=== PATIENT | male | born 1960 | race Caucasian/White ===

== ENCOUNTER 2020-12-22 08:36 | Inpatient (IN) | payer MEDICARE, SELFPAY ==
[2020-12-22] VITALS (9 sets, daily range): BP systolic 144–159; BP diastolic 53–76; PULSE 63–93; RESP 13–20; TEMP 36.6–37.5; O2SAT 93–99; BMI 29.0
--- NOTE | ~2020-12-22 | CT_ITS ---
EXAMINATION: CT ABDOMEN AND PELVIS WITH CONTRAST CLINICAL INFORMATION: Status post right lower quadrant abscess drainage. COMPARISON: CT abdomen and pelvis 12/23/2020. TECHNIQUE: Multidetector volumetric images were obtained from the superior aspect of the liver through the pubic symphysis following administration 85 mL of Omnipaque 350 intravenous contrast. Sagittal and coronal reformatted images were obtained on the technologist's workstation. Oral contrast: No This CT examination was performed using dose optimization techniques as appropriate, variously including the following: *Automated exposure control *Adjustment of mA and/or kV according to patient size (this includes techniques or standardized protocols for targeted exams where dose is matched to indication/reason for exam; i.e. extremities or head) *Use of iterative reconstruction technique DLP: 833 mGy-cm FINDINGS: LUNG BASES: There are bilateral small pleural effusions with underlying atelectasis. The heart size is normal. LIVER, GALLBLADDER, AND BILIARY TREE: The liver is normal in size, shape, and attenuation. No focal hepatic lesion or biliary ductal dilatation is present. The gallbladder is unremarkable with no evidence of radiopaque gallstones, gallbladder wall thickening, or obvious pericholecystic inflammatory changes. PANCREAS: Unremarkable. SPLEEN: Unremarkable. ADRENAL GLANDS: There is 2.2 cm left adrenal nodule, stable. The right adrenal gland is normal. KIDNEYS AND URETERS: The kidneys are normal in size, shape, and attenuation. No hydronephrosis, hydroureter, or calculi seen. There is bilateral perinephric stranding. There is a small nonenhancing cyst upper pole left left kidney and a moderate size cyst mid to lower pole right kidney. There are several additional small cortical cysts in the right kidney which are stable. BLADDER: Unremarkable. GASTROINTESTINAL TRACT: There is an anastomotic sutures along the right abdomen. There is a large collection seen previously in this region extending through the right lateral abdominal wall into the subcutaneous soft tissues. The largest collection seen previously has significantly improved status post insertion of percutaneous drainage catheter. There is a small collection seen superficially extending from the right lateral abdominal wall into the subcutaneous soft tissues which needs to be drained under ultrasound or CT. Also the previously placed drain can be flushed anteriorly at 5 mL loss saline to unplug the catheter. There is moderate haziness throughout the right lobar abdomen similar to previous study. The scattered colonic diverticulosis without diverticulitis. The small bowel loops are normal. The stomach is nondistended. Appendix is not seen. ABDOMINAL WALL: No significant hernia is appreciated. LYMPH NODES: Normal. VASCULAR: Unremarkable. PELVIC VISCERA: A small amount of free fluid in the pelvis which is stable. OSSEOUS STRUCTURES: There are degenerative disc changes L3-L4, L4-L5 disc levels with vacuum disc phenomena and mild ventral spondylosis. No lytic or sclerotic process seen. CT/CT abdomen pelvis w con IMPRESSION: Significant improvement in the right lateral abdominal wall collection status post placement of drainage catheter. There is a small right subcutaneous to this collection which needs to be drained under ultrasound or CT. Rest of the findings are unchanged.
--- NOTE | ~2020-12-22 | XR_ITS ---
EXAMINATION: XR CHEST CLINICAL INFORMATION: Cough. COMPARISON: 04/14/2019 chest radiograph. TECHNIQUE: Frontal view of the chest was obtained. FINDINGS: Support devices: There has been interval removal of the right PICC. No support devices in place. There is minimal elevation of the right hemidiaphragm. Mild linear markings are seen in the right midlung and right lung base. The left lung is clear. The heart and mediastinal structures are unremarkable. XR/XR chest 1V IMPRESSION: Mild linear atelectasis versus scarring in the right midlung and right lung base along with vascular crowding from right hemidiaphragm elevation. A definitive infiltrate is not seen.
--- NOTE | ~2020-12-22 | CT_ITS ---
PROCEDURE: CT GUIDED DRAINAGE, RETROPERITONEAL ABSCESS CLINICAL INFORMATION: Right midabdominal progressive collection, question abscess versus seroma. COMPARISON: CT abdomen 12/22/2020. TECHNIQUE: Following explaining CT-guided right abdominal wall and intraperitoneal drainage and catheter placement procedure, benefits and risks, a written consent was obtained. Patient was placed supine on the CT table and preliminary CT imaging was obtained. An optimal site was selected along the right midabdomen and marked. The marked site was cleaned and draped in the usual sterile manner. 1% lidocaine was administered at the puncture site. Through a small skin incision, a 5 [place] Yueh catheter was advanced into the right abdominal wall and retroperitoneal collection under CT fluoroscopy. After observing catheter tip within the collection, stylet was withdrawn and a 0.035 short J-wire was introduced and catheter removed. Over the catheter, a 10.5 [place] APD catheter with stiffener was inserted over the guidewire. After inserting 10 cm of the APD catheter, the guidewire and stiffener were removed. Repeat CT fluoroscopy imaging was performed and confirmed pigtail catheter tip within the collection. A pigtail was formed by pulling the thread and anchoring the pigtail to the skin with 3-0 nylon sutures. On the table, approximate 550 mL of pus was drained. Part of this pus was sent to lab for culture, sensitivity and Gram stain. A drainage bag to gravity was attached to this pigtail. Sterile dressing was applied postprocedure. Patient tolerated the procedure extremely well. IV 1 g of Versed and 50 mg of fentanyl was given during the exam. This CT examination was performed using dose optimization techniques as appropriate, variously including the following: *Automated exposure control *Adjustment of mA and/or kV according to patient size (this includes techniques or standardized protocols for targeted exams where dose is matched to indication/reason for exam; i.e. extremities or head) *Use of iterative reconstruction technique DLP: 383 mGy-cm. FINDINGS: On preliminary CT imaging, there is a small right pleural effusion. There is a large right anterior abdominal wall and retroperitoneal fluid collection, likely abscess or old seroma. Under CT fluoroscopy guidance, a 10.5 [place] APD catheter was left in the right anterolateral abdominal wall and retroperitoneal collection. Approximately 550 mL of pus was aspirated and part of this was sent to the lab. CT/CT drain retroperitoneal IMPRESSION: Successful CT fluoroscopy-guided placement of a 10.5 [place] APD catheter with approximately 550 mL of pus aspirated.
--- NOTE | ~2020-12-22 | CT_ITS ---
EXAMINATION: CT ANGIOGRAM OF THE CHEST WITH AND WITHOUT CONTRAST (CT PULMONARY ANGIOGRAM FOR PE) CLINICAL INFORMATION: Chest pain and dyspnea, elevated d-dimer. COMPARISON: CT scan of the abdomen and pelvis performed today. TECHNIQUE: Prior to contrast administration, noncontrast localization images were obtained. Subsequently, multidetector volumetric imaging was performed from the thoracic inlet to below the diaphragms following the administration of 80 mL Omnipaque 350 intravenous contrast. No contrast reaction reported Sagittal, coronal, and MIP oblique sagittal reformatted images were obtained on the CT workstation, uploaded to PACS, and reviewed. This CT examination was performed using dose optimization techniques as appropriate, variously including the following: *Automated exposure control *Adjustment of mA and/or kV according to patient size (this includes techniques or standardized protocols for targeted exams where dose is matched to indication/reason for exam; i.e. extremities or head) *Use of iterative reconstruction technique Total exam dose-length product 1442 mGy-cm FINDINGS: QUALITY OF STUDY/CONTRAST BOLUS: Satisfactory. PULMONARY ARTERIES: No central or segmental pulmonary emboli. THORACIC AORTA: No aneurysm or dissection. LUNGS/PLEURA/AIRWAYS: There is a small right pleural effusion with adjacent atelectasis and posterior pleural thickening. Mild upper lobe predominant centrilobular emphysema is seen. Focal cystic changes with adjacent linear markings are seen posterolaterally in the right upper lobe measuring 1.0 cm. An ovoid nodule seen within the major fissure measuring 1.2 cm (image 49, series 12). Mild linear atelectasis versus scarring is seen in the right middle lobe, lingula and lung bases. MEDIASTINUM: The visualized thyroid gland is unremarkable. Normal heart size. Mild to moderate coronary artery calcifications are seen. No pericardial effusion. Mildly enlarged mediastinal lymph nodes are seen. A leasing representative right paratracheal lymph node measures 0.7 cm in short axis (image 19, series 9. A subcarinal lymph node measures 1.3 cm (image 27, series 9). No evidence of septal bowing or right heart strain. CHEST WALL/AXILLA: No axillary or internal mammary lymphadenopathy. Mild bilateral gynecomastia. OSSEOUS STRUCTURES: Moderate to severe multilevel degenerative changes and increased thoracic kyphosis without suspicious abnormality. UPPER ABDOMEN: Splenomegaly measuring up to 19.1 cm without focal abnormality. Ovoid left adrenal nodule containing fat measuring 2.6 x 2.2 cm (image 63, series 9). Status post cholecystectomy. Please refer to the report from the CT scan of the abdomen and pelvis from today for more detailed findings. CT/CT angio chest PE protocol IMPRESSION: 1. No evidence for pulmonary embolism. 2. Small right pleural effusion with mild adjacent mural pleural thickening and atelectasis. A nodule associated with the right major fissure could represent enlarged lymph node or loculated pleural fluid. Mild upper lobe predominant centrilobular emphysema. Small focal cystic changes in the right upper lobe with adjacent scarring is nonspecific. Given these multiple findings, a repeat contrast-enhanced chest CT scan should be considered in 3 months. 3. Mildly enlarged mediastinal lymph nodes are nonspecific and may be reactive. 4. Mild bilateral gynecomastia. 5. Upper abdominal splenomegaly. Left adrenal nodule contains fat suggesting an adrenal adenoma/angiomyolipoma. Please refer to the report from the CT scan of the abdomen and pelvis from today for more detailed findings. VTE: negative
--- NOTE | ~2020-12-22 | CT_ITS ---
EXAMINATION: CT ABDOMEN AND PELVIS WITH CONTRAST CLINICAL INFORMATION: Follow-up abscess COMPARISON: Previous CT of the abdomen and pelvis most recent 12/26/2020 and abdominal ultrasound 12/27/2020 TECHNIQUE: Multidetector volumetric images were obtained from the superior aspect of the liver through the pubic symphysis following administration 85 mL of Omnipaque 350 intravenous contrast. Sagittal and coronal reformatted images were obtained on the technologist's workstation. Oral contrast: Yes This CT examination was performed using dose optimization techniques as appropriate, variously including the following: *Automated exposure control *Adjustment of mA and/or kV according to patient size (this includes techniques or standardized protocols for targeted exams where dose is matched to indication/reason for exam; i.e. extremities or head) *Use of iterative reconstruction technique DLP: 729 mGy-cm FINDINGS: LUNG BASES: There is bilateral lower lobe atelectasis/consolidation and pleural effusions that appear unchanged. LIVER, GALLBLADDER, AND BILIARY TREE: The liver is enlarged, right lobe measuring 23 cm in length. The liver is normal in shape, and attenuation. No focal hepatic lesion or biliary ductal dilatation is present. The gallbladder has been removed. PANCREAS: Unremarkable. SPLEEN: Upper normal in size measuring 12.8 cm in length. ADRENAL GLANDS: There is a heterogeneous partially fat-containing left adrenal nodule that is stable. The right adrenal gland is normal. KIDNEYS AND URETERS: There is a right renal cyst. There is bilateral perinephric stranding, right greater than left. This is unchanged. BLADDER: Unremarkable. GASTROINTESTINAL TRACT: There is stool throughout the colon. There is evidence of mild diverticulosis. No evidence of diverticulitis is seen. There are postsurgical changes to the distal small bowel and cecum. The appendix is not identified and has presumably been removed. The stomach is unremarkable. ABDOMINAL WALL: There is a single percutaneous pigtail catheter in the posterior lateral abdominal wall collection similar to most recent exam 12/26/2020. There is a minimal residual fluid collection seen in this region. The second drainage catheter placed in ultrasound is not seen. There is interval decrease in size in the more superior and anterior lateral fluid collection compared to 12/26/2020 exam. This measures 6.5 cm in longitudinal dimension compared to 8.2 cm 12/26/2020 and 2 x 4 cm in AP and transverse dimension compared to 3.7 x 7.4 cm on previous exam. The posterior fluid collections along the posterior peritoneal reflection extending to the right psoas muscle appears decreased in size. No new fluid collection is seen. There are postsurgical changes to the anterior abdominal wall. LYMPH NODES: Normal. VASCULAR: There is evidence of atherosclerotic disease. PELVIC VISCERA: The prostate gland does not appear enlarged. There is a small amount of ascites in the pelvis is unchanged. OSSEOUS STRUCTURES: There are degenerative changes of the spine and hip joints. CT/CT abdomen pelvis w con IMPRESSION: Interval decrease in size in right abdominal wall fluid collections. The second drain placed in ultrasound is not identified. The initial drain placed in CT appears unchanged in position.
--- NOTE | ~2020-12-22 | US_ITS ---
EXAMINATION: ULTRASOUND-GUIDED ABDOMINAL WALL ABSCESS DRAINAGE. CLINICAL INFORMATION: Right lower quadrant abdominal wall abscess. COMPARISON: CT abdomen 12/26/2020 TECHNIQUE: Following explaining ultrasound-guided right abdominal wall abscess drainage procedure, benefits and risk, a written consent was obtained. The urinary ultrasound was obtained into the right lower abdominal wall. An optimal site was selected and marked. The marked site was cleaned and draped in usual sterile manner. 1% lidocaine was injected at puncture site. Through a small skin incision a 5 [employer] catheter was advanced into the superficial abscess. After observing thick pus return the stylet was removed and catheter connected to vacuum bottle via connecting cannula. The needle was manifested in several locations around the same area to drain as much as possible. Postprocedure needle was withdrawn and complete hemostasis achieved. Repeat ultrasound imaging revealed significant decrease in the abscess collection. Sterile dressing applied at the puncture site. Patient tolerated procedure well. FINDINGS: There is a moderate-sized right lower abdominal wall abscess. This was subsequently drained under ultrasound guidance. Approximately 50 mL of thick reddish fluid was aspirated. US/US drain soft tissue w imaging IMPRESSION: Successful ultrasound-guided right lower abdominal wall abscess drainage performed without immediate complications.
--- NOTE | ~2020-12-22 | CT_ITS ---
EXAMINATION: CT ABDOMEN AND PELVIS WITH CONTRAST CLINICAL INFORMATION: Right lower quadrant pain. COMPARISON: Prior CT scan 2019. TECHNIQUE: Multidetector volumetric imaging was performed from the superior aspect of the liver through the pubic symphysis 100 mL of Omnipaque 300 injected Sagittal and coronal reformatted images were obtained on the technologist's workstation. This CT examination was performed using dose optimization techniques as appropriate, variously including the following: *Automated exposure control. *Adjustment of mA and/or kV according to patient size (this includes techniques or standardized protocols for targeted exams where dose is matched to indication/reason for exam; i.e. extremities or head). *Use of iterative reconstruction technique. DLP: 1442 mGy-cm. FINDINGS: LOWER THORAX: There is a small right pleural effusion, mild infiltrate/atelectasis right lung base. HEPATOBILIARY: No focal hepatic lesions. No biliary ductal dilatation. GALLBLADDER: Gallbladder has been removed, surgical clips within its bed. SPLEEN: Spleen is enlarged measuring up to 19 cm. PANCREAS: Pancreas is and atrophic. STOMACH AND GASTROINTESTINAL TRACT: Stomach is grossly unremarkable. There is sigmoid diverticulosis without CT evidence of acute diverticulitis. Redemonstration of anastomosis suture line right ascending colon with adjacent complex multiloculated fluid collection dissecting through the right anterior abdominal wall measuring about 18 x 5 cm axially and about 17 cm craniocaudally, expand from the right iliopsoas through the right lateral rectal muscle into the subcutaneous fat right lateral abdominal wall. This has increased, enlarged since prior study concerning for ongoing process leak and/or infection abscess. ADRENALS: Right adrenal is normal. Left adrenal nodule 2.2 x 1.8 cm unchanged, not well characterized on this single phase CT scan. KIDNEYS/URETERS: There is a simple right renal cyst 4 cm. Bilateral mild perinephric fat stranding unchanged. No hydronephrosis. No kidney stones or obstruction. URINARY BLADDER: Partially decompressed. PELVIC VISCERA: There is a free fluid in the dependent portion of the pelvis. PERITONEUM: Free fluid in the dependent portion of the pelvis. No free air. LYMPH NODES: No lymphadenopathy. VASCULAR:Abdominal aorta normal in size, no aneurysm found. BONES, ABDOMINAL WALL AND SOFT TISSUES: Age-appropriate changes of the spine and skeletal system, no destructive osteolytic or osteosclerotic bone lesion found. CT/CT abdomen pelvis w con IMPRESSION: 1. Enlarging or recurrent multiloculated complex fluid, which expand from right lower quadrant adjacent to right cecal anastomosis site, dissecting through the right abdominal wall and right rectal muscle into the subcutaneous fat, expands posteriorly and deeply into the paravertebral soft tissue and right iliopsoas. This is concerning for possible ongoing anastomosis leak and/or developing infection abscess versus seroma. This would be amenable for CT or ultrasound guided drainage. 2. Small right pleural effusion, infiltrate/atelectasis at right lung base. 3. Dependent free fluid in the pelvis. 4. Other findings unchanged including left adrenal nodule, splenomegaly, diverticulosis, bilateral perinephric fat stranding in right renal cyst, atrophic pancreas.
--- NOTE | 2020-12-22 08:42 | ED_ITS ---
HPI - Chest Pain General Chief Complaint: Dyspnea Stated Complaint: sob, cp Time Seen by Provider: 12/22/20 08:42 Source: patient and EMS Mode of arrival: EMS Limitations: no limitations History of Present Illness HPI narrative: 1 week of R sided abdominal (lower) pain that radiates to rib as well as cough and sputum production MD complaint: other (R sided abdominal pain) Pertinent past history: coronary artery disease Onset (ago): week(s) (1) Timing of current episode: constant Prior episodes: No Onset: during rest Pain location: other (R lower abdomen) Pain radiation: other (R ribs) Severity: moderate Quality: sharp Relieving factors: nothing Exacerbating factors: movement Associated symptoms: dyspnea and cough Treatment prior to arrival: aspirin and nitroglycerin (no relief) Related Data Home Medications Medication Instructions Recorded Confirmed amiodarone 200 mg PO DAILY 12/22/20 12/22/20 furosemide 40 mg PO DAILY 12/22/20 12/22/20 gemfibrozil 600 mg PO BID 12/22/20 12/22/20 metoprolol tartrate 25 mg PO BID 12/22/20 12/22/20 omeprazole 20 mg PO BID 12/22/20 12/22/20 trazodone 50 mg PO BEDTIME 12/22/20 12/22/20 Allergies Allergy/AdvReac Type Severity Reaction Status Date / Time vancomycin [VANCOMYCIN] Allergy Severe STOMACH Unverified 08/01/20 15:08 UPSET, ill Review of Systems Review of Systems: Constitutional : No Weight loss, No Fever, No Chills ENT/Mouth : No sore throat, No Rhinorrhea Eyes: No Swelling, No Redness Cardiovascular : No Chest Pain, No SOB, NoEdema Respiratory : pos Cough, pos Sputum, No Wheezing Gastrointestinal : no Nausea, no Vomiting, positive Diarrhea, positive abdominal Pain, No Hematochezia, No Melena Genitourinary : No Dysuria, No Urinary Frequency, No Hematuria, No Urgency Musculoskeletal : No joint pain, No Myalgias, No Joint Swelling Skin : No Skin Lesions, No rash Neuro : No Weakness, No Numbness, No Dizziness, No Headache Psych : No Anxiety/Panic, No Depression Heme/Lymph: No Bruising, No Lymphadenopathy Endocrine : No Polyuria, No Polydipsia All other systems reviewed and are negative. [facility] Past Medical History Attestation statement: The following information was validated with the patient. Medical History (Updated 12/22/20 @ 12:52 by Dianna Ramos DO) Acute appendicitis Afib CHF (congestive heart failure) CVA (cerebral vascular accident) Diabetes Heart disease History of left below knee amputation HTN (hypertension) Ischemic cardiomyopathy Surgical History (Updated 12/22/20 @ 08:58 by Dianna Ramos DO) H/O exploratory laparotomy H/O right hemicolectomy History of transmetatarsal amputation of right foot Hx of cholecystectomy Social History Social History Alcohol intake: never Smoked in Last 30 Days: No Use of substances other than those prescribed or required for medical reasons: No Advance Directives: No Advance Directives Information Provided: No Physical Exam Vital Signs: Vital Signs: Last Vital Signs Pulse 63 12/22/20 13:18 Resp 15 12/22/20 13:18 BP 150/64 H 12/22/20 13:18 Pulse Ox 95 12/22/20 13:18 Body Mass Index 29.0 Appearance: Alert. Oriented X3. No acute distress. Eyes: Pupils equal, round and reactive to light. ENT: Pharynx normal. Neck: Normal inspection. Neck supple. CVS: Normal heart rate and rhythm. Pulses normal. Respiratory: No respiratory distress. Breath sounds rales right base Abdomen: Soft and moderate ttp RLQ area under scar feels firm to touch, no rebound or guarding Skin: Skin warm and dry. Normal skin color. Normal skin turgor. Extremities: No lower extremity edema. No calf ttp Neuro: Oriented X 3. No motor deficit. No sensory deficit. Course Course Course Narrative: empiric zosyn already ordered CT scan concerning for increasing fluid collection call to surgery initial surgical period 2019 surgery aware, likely CT guided aspiration, will admit I added on flagyl given prior cultures MDM - Chest Pain MDM Narrative Medical decision making narrative: 60 yo male with hx of multiple issues post perforated appendix resuling in R hemicolectomy c/o R sided lower abdominal pain and cough with sputum production - at this time pain is mostly RLQ will need labs, CT scan of abdomen for infection/obstruction, troponin, EKG, ddimer, CXR for pneumonia, IV morphine for pain Lab Data Result diagrams: 12/22/20 09:03 12/22/20 09:03 Labs: Lab Results 12/22/20 12/22/20 12/22/20 Range/Units 09:03 09:03 09:03 WBC 16.8 H (4.8-10.8) X10*3/uL RBC 3.77 L (4.60-5.80) X10*6/uL Hgb 11.1 L (14.0-18.0) g/dl Hct 33.2 L (42-52) % MCV 88.1 (80-98) fL MCH 29.4 (27.0-33.0) pg MCHC 33.4 (31.0-36.0) g/dl RDW 12.7 (11.0-16.0) % Plt Count 314 (160-400) X10*3/uL MPV 9.3 L (9.4-12.4) fL Immature Gran % (Auto) 0.6 H (0.0-0.4) % Neut % (Auto) 87.7 H (45-73) % Lymph % (Auto) 5.2 L (20-40) % [place] % (Auto) 5.5 (2-11) % Eos % (Auto) 0.9 (0-4) % Baso % (Auto) 0.1 (0-2) % Lymph # (Auto) 0.9 L (1.2-4.9) X10*3/uL [place] # (Auto) 0.9 (0.1-1.2) X10*3/uL Eos # (Auto) 0.2 (0.0-0.4) X10*3/uL Baso # (Auto) 0.0 (0.0-0.2) X10*3/uL Abs Immat Gran (auto) 0.10 H (0.00-0.03) X10*3/uL Absolute Neuts (auto) 14.7 H (2.0-8.3) X10*3/uL Absolute Nucleated RBC 0.000 (0.0-0.012) X10*3/uL Nucleated RBC % (auto) 0.0 (0.0-0.2) /100WBC PT 15.0 H (10.8-13.0) SEC INR 1.3 H (0.9-1.1) APTT 34.4 (24.1-38.0) SEC D-Dimer 647 NG/ML Sodium 140 (135-145) mmol/L Potassium 3.9 (3.3-5.1) mmol/L Chloride 105 (96-108) mmol/L Carbon Dioxide 24 (22-29) mmol/L Anion Gap 15 (12-20) BUN 16 (9-16) mg/dL Creatinine 0.74 (0.5-1.4) mg/dL Estim Creat Clear Calc 130.2 Estimated GFR > 60 Random Glucose 206 H (60-115) mg/dL Lactic Acid (0.5-2.0) mmol/L Calcium 8.4 (8.4-10.2) mg/dL Magnesium 1.5 L (1.6-2.6) mg/dL Total Bilirubin 0.4 (0.0-1.0) mg/dL Direct Bilirubin 0.2 (0.0-0.5) mg/dL AST 13 (5-37) U/L ALT 14 (0-40) U/L Alkaline Phosphatase 128 H (39-117) U/L Troponin I High Sens (<3.5-35.0) ng/L B-Natriuretic Peptide (<100) pg/mL Total Protein 5.8 L (6.5-8.0) g/dL Albumin 3.0 L (3.5-5.0) g/dL Lipase 5 L (8-78) U/L COVID-19 (CAROLINE) (Negative) COVID-19 Clin Com 12/22/20 12/22/20 12/22/20 Range/Units 09:03 09:03 09:03 WBC (4.8-10.8) X10*3/uL RBC (4.60-5.80) X10*6/uL Hgb (14.0-18.0) g/dl Hct (42-52) % MCV (80-98) fL MCH (27.0-33.0) pg MCHC (31.0-36.0) g/dl RDW (11.0-16.0) % Plt Count (160-400) X10*3/uL MPV (9.4-12.4) fL Immature Gran % (Auto) (0.0-0.4) % Neut % (Auto) (45-73) % Lymph % (Auto) (20-40) % [place] % (Auto) (2-11) % Eos % (Auto) (0-4) % Baso % (Auto) (0-2) % Lymph # (Auto) (1.2-4.9) X10*3/uL [place] # (Auto) (0.1-1.2) X10*3/uL Eos # (Auto) (0.0-0.4) X10*3/uL Baso # (Auto) (0.0-0.2) X10*3/uL Abs Immat Gran (auto) (0.00-0.03) X10*3/uL Absolute Neuts (auto) (2.0-8.3) X10*3/uL Absolute Nucleated RBC (0.0-0.012) X10*3/uL Nucleated RBC % (auto) (0.0-0.2) /100WBC PT (10.8-13.0) SEC INR (0.9-1.1) APTT (24.1-38.0) SEC D-Dimer NG/ML Sodium (135-145) mmol/L Potassium (3.3-5.1) mmol/L Chloride (96-108) mmol/L Carbon Dioxide (22-29) mmol/L Anion Gap (12-20) BUN (9-16) mg/dL Creatinine (0.5-1.4) mg/dL Estim Creat Clear Calc Estimated GFR Random Glucose (60-115) mg/dL Lactic Acid 1.5 (0.5-2.0) mmol/L Calcium (8.4-10.2) mg/dL Magnesium (1.6-2.6) mg/dL Total Bilirubin (0.0-1.0) mg/dL Direct Bilirubin (0.0-0.5) mg/dL AST (5-37) U/L ALT (0-40) U/L Alkaline Phosphatase (39-117) U/L Troponin I High Sens (<3.5-35.0) ng/L B-Natriuretic Peptide 1309 H (<100) pg/mL Total Protein (6.5-8.0) g/dL Albumin (3.5-5.0) g/dL Lipase (8-78) U/L COVID-19 (CAROLINE) Negative (Negative) COVID-19 Clin Com See Note 12/22/20 Range/Units 09:03 WBC (4.8-10.8) X10*3/uL RBC (4.60-5.80) X10*6/uL Hgb (14.0-18.0) g/dl Hct (42-52) % MCV (80-98) fL MCH (27.0-33.0) pg MCHC (31.0-36.0) g/dl RDW (11.0-16.0) % Plt Count (160-400) X10*3/uL MPV (9.4-12.4) fL Immature Gran % (Auto) (0.0-0.4) % Neut % (Auto) (45-73) % Lymph % (Auto) (20-40) % [place] % (Auto) (2-11) % Eos % (Auto) (0-4) % Baso % (Auto) (0-2) % Lymph # (Auto) (1.2-4.9) X10*3/uL [place] # (Auto) (0.1-1.2) X10*3/uL Eos # (Auto) (0.0-0.4) X10*3/uL Baso # (Auto) (0.0-0.2) X10*3/uL Abs Immat Gran (auto) (0.00-0.03) X10*3/uL Absolute Neuts (auto) (2.0-8.3) X10*3/uL Absolute Nucleated RBC (0.0-0.012) X10*3/uL Nucleated RBC % (auto) (0.0-0.2) /100WBC PT (10.8-13.0) SEC INR (0.9-1.1) APTT (24.1-38.0) SEC D-Dimer NG/ML Sodium (135-145) mmol/L Potassium (3.3-5.1) mmol/L Chloride (96-108) mmol/L Carbon Dioxide (22-29) mmol/L Anion Gap (12-20) BUN (9-16) mg/dL Creatinine (0.5-1.4) mg/dL Estim Creat Clear Calc Estimated GFR Random Glucose (60-115) mg/dL Lactic Acid (0.5-2.0) mmol/L Calcium (8.4-10.2) mg/dL Magnesium (1.6-2.6) mg/dL Total Bilirubin (0.0-1.0) mg/dL Direct Bilirubin (0.0-0.5) mg/dL AST (5-37) U/L ALT (0-40) U/L Alkaline Phosphatase (39-117) U/L Troponin I High Sens 11.4 (<3.5-35.0) ng/L B-Natriuretic Peptide (<100) pg/mL Total Protein (6.5-8.0) g/dL Albumin (3.5-5.0) g/dL Lipase (8-78) U/L COVID-19 (CAROLINE) (Negative) COVID-19 Clin Com ECG Data ECG #1: Attestation: I personally reviewed and interpreted this ECG as follows: ECG interpretation date: 12/22/20 ECG interpretation time: 09:04 Interpretation: Rate: 95 Rhythm: NSR [place]: left Normal P waves. Normal MICHELLE. NSIVCD, poor R wave progression ST T wave : nonspecific, no LELO qTC: normal prior studies: no change from 2019 The study has been interpreted contemporaneously by me. . Discharge Plan Discharge Clinical Impression: Abdominal fluid collection Abdominal pain Qualifiers: Abdominal location: right lower quadrant Qualified Code(s): R10.31 - Right lower quadrant pain Patient Disposition: Admitted As Inpatient
--- NOTE | 2020-12-22 08:49 | ECG_ITS ---
Test Reason : CP,SOB Blood Pressure : / mmHG Vent. Rate : 095 BPM Atrial Rate : 095 BPM P-R Int : 112 ms QRS Dur : 132 ms QT Int : 388 ms P-R-T Axes : 026 -56 075 degrees QTc Int : 487 ms Normal sinus rhythm Possible Left atrial enlargement Left axis deviation Non-specific intra-ventricular conduction block Inferior infarct (cited on or before 19-MAR-2019) Possible Anterolateral infarct (cited on or before 19-MAR-2019) Abnormal ECG When compared with ECG of 30-MAY-2019 10:01, No significant changes seen Referred By: Dianna Ramos Electronically Signed By:PEDRO BOSWELL
[2020-12-22] MEDS: Morphine Sulfate 4 MG/ML CARTRIDGE IVPUSH ×4 (09:10→22:10)
[2020-12-22] MEDS: ondansetron HCL 4 MG/2 ML VIAL IVPUSH (09:10)
[2020-12-22 09:23] LABS: MANUAL DIFF FLAG NO
[2020-12-22 09:25] LABS: Basophils Percent Auto 0.1 % (0-2); Eosinophils Absolute Auto 0.2 X10*3/uL (0.0-0.4); Eosinophils Percent Auto 0.9 % (0-4); Hematocrit 33.2 % (42-52); Hemoglobin 11.1 g/dl (14.0-18.0); Imm Gran Pct Auto 0.6 % (0.0-0.4); Lymphocytes Absolute Auto 0.9 X10*3/uL (1.2-4.9); Lymphocytes Percent Auto 5.2 % (20-40); Mean Corpuscular HGB Conc 33.4 g/dl (31.0-36.0); Mean Corpuscular Hemoglobin 29.4 pg (27.0-33.0); Mean Corpuscular Volume 88.1 fL (80-98); Mean Platelet Volume 9.3 fL (9.4-12.4); Monocytes Absolute Auto 0.9 X10*3/uL (0.1-1.2); Monocytes Percent Auto 5.5 % (2-11); Neutrophils Absolute Auto 14.7 X10*3/uL (2.0-8.3); Neutrophils Percent Auto 87.7 % (45-73); Platelet Count 314 X10*3/uL (160-400); Red Blood Count 3.77 X10*6/uL (4.60-5.80); Red Cell Distribution Width 12.7 % (11.0-16.0); White Blood Count 16.8 X10*3/uL (4.8-10.8)
[2020-12-22 09:33] LABS: INTERNATIONAL NORM RATIO 1.3 (0.9-1.1)
[2020-12-22 09:35] LABS: Partial Thromboplastin Time 34.4 SEC (24.1-38.0)
[2020-12-22 09:38] LABS: COVID-19 Test Negative (Negative)
[2020-12-22 09:41] LABS: D Dimer 647 NG/ML
[2020-12-22 09:44] LABS: Lactic Acid 1.5 mmol/L (0.5-2.0)
[2020-12-22 09:50] LABS: Alanine Aminotransferase 14 U/L (0-40); Alkaline Phosphatase 128 U/L (39-117); Anion Gap 15 (12-20); Aspartate Amino Transferase 13 U/L (5-37); Bilirubin Direct 0.2 mg/dL (0.0-0.5); Bilirubin Total 0.4 mg/dL (0.0-1.0); Blood Urea Nitrogen 16 mg/dL (9-16); Calcium 8.4 mg/dL (8.4-10.2); Carbon Dioxide 24 mmol/L (22-29); Chloride 105 mmol/L (96-108); Creatinine Clr Calc Pharmacy 130.2; Estimated Glomerular Filt Rate > 60; Glucose Random 206 mg/dL (60-115); Lipase 5 U/L (8-78); Magnesium 1.5 mg/dL (1.6-2.6); Potassium 3.9 mmol/L (3.3-5.1); Sodium 140 mmol/L (135-145); Total Protein 5.8 g/dL (6.5-8.0)
[2020-12-22 09:54] LABS: Troponin-I High Sensitivity 11.4 ng/L (<3.5-35.0)
[2020-12-22 09:55] LABS: B Type Natriuretic Peptide 1309 pg/mL (<100)
[2020-12-22] MEDS: Piperacillin Sodium/Tazobactam 3.375 GM in 0.9 % Sodium Chloride 50 ML IV ×3 (10:23→22:05)
[2020-12-22] MEDS: iohexoL 350 MG/ML 100 ML INFUS..BTL IV (11:29)
[2020-12-22] MEDS: Magnesium Sulfate/H2O 2 GM/50 ML PIGGYBACK IV (13:16)
--- NOTE | 2020-12-22 14:09 | P.CONGS_ITS ---
History of Present Illness Consult details Consult date: 12/22/20 <FARHEEN Funk - Last Filed: 12/22/20 16:08> Reason for consult: abdominal pain <FARHEEN Funk Last Filed: 12/22/20 16:08> Requesting physician: Dianna Ramos <FARHEEN Funk - Last Filed: 12/22/20 16:08> Narrative: 60 yo male with extensive PMHx presents for ABD pain and SOB. He states that the ABD pain started about a month ago but acutely worsened in the last day. This was accompanied by SOB and overall feeling unwell. He states that the pain is located on his Right side. He reports nausea and diarrhea as well. The pain is worse with movement and pressure on the area and improved with lying on his back. He has a hx of multiple issues post perforated appendix resulting in R hemicolectomy hx of multiple issues post perforated appendix resulting in R hemicolectomy. ED course: Found to have leukocytosis. CT of the ABD shopwed a RIght-side fluid collection suggesting possible ongoing anastamosis leak or abscess. He was started on ABX and pain medication. Surgery was consulted for further eval uation. He was evaluated at bed-side. He is currently resting comfortably in bed, no acute distress. He states his pain is improved with pain medicaiton but still present. <FARHEEN Funk - Last Filed: 12/22/20 16:08> Review of Systems Cardiovascular: Cardiovascular: Reports dyspnea <FARHEEN Funk Last Filed: 12/22/20 16:08> Respiratory: Respiratory: Reports dyspnea <FARHEEN Funk Last Filed: 12/22/20 16:08> Gastrointestinal: Gastrointestinal: Reports abdominal pain (Right side), Reports diarrhea and Reports nausea <FARHEEN Funk Last Filed: 12/22/20 16:08> Integumentary/Breasts: Skin/Breast: Reports skin pain <FARHEEN Funk Last Filed: 12/22/20 16:08> [facility] Past Medical History Medical History: Medical History (Updated 12/22/20 @ 16:17 by Prema Larry MD) Acute appendicitis Afib CHF (congestive heart failure) CVA (cerebral vascular accident) Diabetes Heart disease History of left below knee amputation HTN (hypertension) Ischemic cardiomyopathy <FARHEEN Funk - Last Filed: 12/22/20 16:08> Surgical History Surgical History: Surgical History (Updated 12/22/20 @ 08:58 by Dianna Ramos DO) H/O exploratory laparotomy H/O right hemicolectomy History of transmetatarsal amputation of right foot Hx of cholecystectomy <FARHEEN Funk - Last Filed: 12/22/20 16:08> Social History Social History: Social History Alcohol intake: never Smoked in Last 30 Days: No Use of substances other than those prescribed or required for medical reasons: No Advance Directives: No Advance Directives Information Provided: No <FARHEEN Funk - Last Filed: 12/22/20 16:08> Meds Allergies/Adverse reactions: Allergies Allergy/AdvReac Type Severity Reaction Status Date / Time vancomycin [VANCOMYCIN] Allergy Severe STOMACH Unverified 08/01/20 15:08 UPSET, ill <FARHEEN Funk - Last Filed: 12/22/20 16:08> Home medications: Home Medications Medication Instructions Recorded Confirmed Type amiodarone 200 mg PO DAILY 12/22/20 12/22/20 History furosemide 40 mg PO DAILY 12/22/20 12/22/20 History gemfibrozil 600 mg PO BID 12/22/20 12/22/20 History metoprolol tartrate 25 mg PO BID 12/22/20 12/22/20 History omeprazole 20 mg PO BID 12/22/20 12/22/20 History trazodone 50 mg PO BEDTIME 12/22/20 12/22/20 History <FARHEEN Funk - Last Filed: 12/22/20 16:08> Physical Exam Vital Signs: Vital Signs: Last Vital Signs Pulse 63 12/22/20 13:18 Resp 15 12/22/20 13:18 BP 150/64 H 12/22/20 13:18 Pulse Ox 95 12/22/20 13:18 Body Mass Index 29.0 <FARHEEN Funk - Last Filed: 12/22/20 16:08> Const: General: no acute distress <FARHEEN Funk - Last Filed: 12/22/20 16:08> Nutritional Appearance: obese <FARHEEN Funk - Last Filed: 12/22/20 16:08> GI: Inspection: Yes incision and Yes Abdominal panniculus present <FARHEEN Funk Last Filed: 12/22/20 16:08> Palpation (GI): Soft to palpation and Tenderness to palpation present (GI) in the RLQ and in the RUQ <FARHEEN Funk Last Filed: 12/22/20 16:08> Skin: General skin exam: erythema (Right Flank) <FARHEEN Funk Last Filed: 12/22/20 16:08> Results Labs Result diagrams: : 12/22/20 09:03 12/22/20 09:03 <FARHEEN Funk Last Filed: 12/22/20 16:08> Labs: Abnormal lab results 12/22/20 12/22/20 12/22/20 Range/Units 09:03 09:03 09:03 WBC 16.8 H (4.8-10.8) X10*3/uL RBC 3.77 L (4.60-5.80) X10*6/uL Hgb 11.1 L (14.0-18.0) g/dl Hct 33.2 L (42-52) % MPV 9.3 L (9.4-12.4) fL Immature Gran % (Auto) 0.6 H (0.0-0.4) % Neut % (Auto) 87.7 H (45-73) % Lymph % (Auto) 5.2 L (20-40) % Lymph # (Auto) 0.9 L (1.2-4.9) X10*3/uL Abs Immat Gran (auto) 0.10 H (0.00-0.03) X10*3/uL Absolute Neuts (auto) 14.7 H (2.0-8.3) X10*3/uL PT 15.0 H (10.8-13.0) SEC INR 1.3 H (0.9-1.1) Random Glucose 206 H (60-115) mg/dL Magnesium 1.5 L (1.6-2.6) mg/dL Alkaline Phosphatase 128 H (39-117) U/L B-Natriuretic Peptide (<100) pg/mL Total Protein 5.8 L (6.5-8.0) g/dL Albumin 3.0 L (3.5-5.0) g/dL Lipase 5 L (8-78) U/L 12/22/20 Range/Units 09:03 WBC (4.8-10.8) X10*3/uL RBC (4.60-5.80) X10*6/uL Hgb (14.0-18.0) g/dl Hct (42-52) % MPV (9.4-12.4) fL Immature Gran % (Auto) (0.0-0.4) % Neut % (Auto) (45-73) % Lymph % (Auto) (20-40) % Lymph # (Auto) (1.2-4.9) X10*3/uL Abs Immat Gran (auto) (0.00-0.03) X10*3/uL Absolute Neuts (auto) (2.0-8.3) X10*3/uL PT (10.8-13.0) SEC INR (0.9-1.1) Random Glucose (60-115) mg/dL Magnesium (1.6-2.6) mg/dL Alkaline Phosphatase (39-117) U/L B-Natriuretic Peptide 1309 H (<100) pg/mL Total Protein (6.5-8.0) g/dL Albumin (3.5-5.0) g/dL Lipase (8-78) U/L Short CBC 12/22/20 Range/Units 09:03 WBC 16.8 H (4.8-10.8) X10*3/uL Hgb 11.1 L (14.0-18.0) g/dl Hct 33.2 L (42-52) % Plt Count 314 (160-400) X10*3/uL BMP 12/22/20 09:03 Sodium 140 Potassium 3.9 Chloride 105 Carbon Dioxide 24 BUN 16 Creatinine 0.74 Calcium 8.4 Liver Function 12/22/20 Range/Units 09:03 Total Bilirubin 0.4 (0.0-1.0) mg/dL Direct Bilirubin 0.2 (0.0-0.5) mg/dL AST 13 (5-37) U/L ALT 14 (0-40) U/L Alkaline Phosphatase 128 H (39-117) U/L Albumin 3.0 L (3.5-5.0) g/dL All other labs normal. <FARHEEN Funk - Last Filed: 12/22/20 16:08> Imaging Abdomen CT scan report/results: report reviewed and image reviewed <FARHEEN Funk - Last Filed: 12/22/20 16:08> Assessment and Plan (1) Abdominal fluid collection: Problem details: Right side ABD pain present for the last month but acutely worsening over the last day. Accompanied by dsypnea and overall feeling unwell. Likely an infected seroma or abscess <FARHEEN Funk - Last Filed: 12/22/20 16:08> Status: Acute <FARHEEN Funk - Last Filed: 12/22/20 16:08> Anastamos leak vs abscess/seroma- Elevated WBC of 16K but no evidence of sepsis. Admit to med/surg Cont IV ABX (Zosyn Flagyl) Pain mgmt Consult medicine Consult IR for possible percutaneous drainage <FARHEEN Funk - Last Filed: 12/22/20 16:08> (2) Abscess, retroperitoneal: Status: Acute <FARHEEN Funk Last Filed: 12/22/20 16:08> . General Surgery Attending - Román Larry M.D. Patient was evaluated and examined at the bedside with Mr. Andres Hollis PA-C. Patient has a history of abdominal surgery in the past with a perforated appendix, abscess and Right hemicolectomy. He now has a Right paracolonic and retroperitoneal fluid collection, with pain and leukocytosis 16.8. CT [place] density is more c/w seroma than abscess and there is no gas. He will require I.R. drainage nevertheless to drain fluid, obtain C&S, and drainage tube. <Prema Larry MD - Last Filed: 12/22/20 16:29>
[2020-12-22] MEDS: metroNIDAZOLE/NS 500 MG/100 ML PIGGYBACK 100 MG IV ×2 (15:06→22:45)
[2020-12-22] MEDS: 0.9 % Sodium Chloride Flush 3 ML SYRINGE IVFLUSH (15:10)
[2020-12-22] MEDS: 0.9 % Sodium Chloride 1,000 ML 100 ML IVCONT ×2 (15:10→23:57)
[2020-12-22] MEDS: Heparin Sodium,Porcine 5,000 UNIT/ML VIAL 5000 UNIT SUBCUT (16:22)
--- NOTE | 2020-12-22 16:33 | P.CONIM_ITS ---
History of Present Illness Data of Consult Service Date: 12/22/20 Requesting physician: Prema Larry Primary Care Provider: Connor Mcdaniel MD [facility] Reason for consult: medical management 60-year-old male admitted to surgery service for Anastamos leak vs abscess/seroma-, Medicine was consulted for medical management, patient reported abdominal pain for last few days but was worsening for 4 -5 days, patient denies any fever chills, patient also reported chest pain sharp in nature atypical that started yesterday and resolved on its own, patient denies any chest pain now, patient reported some shortness of breath at baseline, in the ER CT abdomen shows anastomotic leak versus abscess and seroma, patient was started on IV antibiotic and plan for IR guided drainage tomorrow Review of Systems Cardiovascular: Cardiovascular: Reports dyspnea Respiratory: Respiratory: Reports dyspnea Gastrointestinal: Gastrointestinal: Reports abdominal pain (Right side), Reports diarrhea and Reports nausea Integumentary/Breasts: Skin/Breast: Reports skin pain PMFSH Medical History (Updated 12/22/20 @ 16:43 by Edis Roth MD) Acute appendicitis Afib CHF (congestive heart failure) CVA (cerebral vascular accident) Diabetes Heart disease History of left below knee amputation HTN (hypertension) Ischemic cardiomyopathy Surgical History H/O exploratory laparotomy H/O right hemicolectomy History of transmetatarsal amputation of right foot Hx of cholecystectomy Social History Alcohol intake: never Smoked in Last 30 Days: No Use of substances other than those prescribed or required for medical reasons: No Advance Directives: No Advance Directives Information Provided: No Meds Allergies Allergy/AdvReac Type Severity Reaction Status Date / Time vancomycin [VANCOMYCIN] Allergy Severe STOMACH Unverified 08/01/20 15:08 UPSET, ill Home Medications Medication Instructions Recorded Confirmed Type amiodarone 200 mg PO DAILY 12/22/20 12/22/20 History furosemide 40 mg PO DAILY 12/22/20 12/22/20 History gemfibrozil 600 mg PO BID 12/22/20 12/22/20 History metoprolol tartrate 25 mg PO BID 12/22/20 12/22/20 History omeprazole 20 mg PO BID 12/22/20 12/22/20 History trazodone 50 mg PO BEDTIME 12/22/20 12/22/20 History Physical Exam Vital Signs and Narrative: Vital Signs: Last Vital Signs Pulse 63 12/22/20 15:11 Resp 13 12/22/20 15:11 BP 153/63 H 12/22/20 15:11 Pulse Ox 95 12/22/20 15:11 Body Mass Index 29.0 Const: General: no acute distress Nutritional Appearance: obese GI: Inspection: Yes incision and Yes Abdominal panniculus present Palpation (GI): Soft to palpation and Tenderness to palpation present (GI) in the RLQ and in the RUQ Skin: General skin exam: erythema (Right Flank) Results Labs CBC and Chem 7: 12/22/20 09:03 12/22/20 09:03 Labs: Laboratory Results - last 24 hr 12/22/20 12/22/20 12/22/20 09:03 09:03 09:03 MCV 88.1 MCH 29.4 MCHC 33.4 RDW 12.7 Plt Count 314 MPV 9.3 L Immature Gran % (Auto) 0.6 H Neut % (Auto) 87.7 H Lymph % (Auto) 5.2 L [place] % (Auto) 5.5 Eos % (Auto) 0.9 Baso % (Auto) 0.1 Lymph # (Auto) 0.9 L [place] # (Auto) 0.9 Eos # (Auto) 0.2 Baso # (Auto) 0.0 Abs Immat Gran (auto) 0.10 H Absolute Neuts (auto) 14.7 H Absolute Nucleated RBC 0.000 Nucleated RBC % (auto) 0.0 PT 15.0 H INR 1.3 H APTT 34.4 D-Dimer 647 Anion Gap 15 Estim Creat Clear Calc 130.2 Estimated GFR > 60 Random Glucose 206 H Lactic Acid Calcium 8.4 Magnesium 1.5 L Total Bilirubin 0.4 Direct Bilirubin 0.2 AST 13 ALT 14 Alkaline Phosphatase 128 H Troponin I High Sens B-Natriuretic Peptide Total Protein 5.8 L Albumin 3.0 L Lipase 5 L COVID-19 (CAROLINE) COVID-19 Clin Com 12/22/20 12/22/20 12/22/20 09:03 09:03 09:03 MCV MCH MCHC RDW Plt Count MPV Immature Gran % (Auto) Neut % (Auto) Lymph % (Auto) [place] % (Auto) Eos % (Auto) Baso % (Auto) Lymph # (Auto) [place] # (Auto) Eos # (Auto) Baso # (Auto) Abs Immat Gran (auto) Absolute Neuts (auto) Absolute Nucleated RBC Nucleated RBC % (auto) PT INR APTT D-Dimer Anion Gap Estim Creat Clear Calc Estimated GFR Random Glucose Lactic Acid 1.5 Calcium Magnesium Total Bilirubin Direct Bilirubin AST ALT Alkaline Phosphatase Troponin I High Sens B-Natriuretic Peptide 1309 H Total Protein Albumin Lipase COVID-19 (CAROLINE) Negative COVID-19 Clin Com See Note 12/22/20 09:03 MCV MCH MCHC RDW Plt Count MPV Immature Gran % (Auto) Neut % (Auto) Lymph % (Auto) [place] % (Auto) Eos % (Auto) Baso % (Auto) Lymph # (Auto) [place] # (Auto) Eos # (Auto) Baso # (Auto) Abs Immat Gran (auto) Absolute Neuts (auto) Absolute Nucleated RBC Nucleated RBC % (auto) PT INR APTT D-Dimer Anion Gap Estim Creat Clear Calc Estimated GFR Random Glucose Lactic Acid Calcium Magnesium Total Bilirubin Direct Bilirubin AST ALT Alkaline Phosphatase Troponin I High Sens 11.4 B-Natriuretic Peptide Total Protein Albumin Lipase COVID-19 (CAROLINE) COVID-19 Clin Com Imaging Radiologist's Impressions: Impressions Abdomen/Pelvis CT 12/22/20 08:49 IMPRESSION: 1. Enlarging or recurrent multiloculated complex fluid, which expand from right lower quadrant adjacent to right cecal anastomosis site, dissecting through the right abdominal wall and right rectal muscle into the subcutaneous fat, expands posteriorly and deeply into the paravertebral soft tissue and right iliopsoas. This is concerning for possible ongoing anastomosis leak and/or developing infection abscess versus seroma. This would be amenable for CT or ultrasound guided drainage. 2. Small right pleural effusion, infiltrate/atelectasis at right lung base. 3. Dependent free fluid in the pelvis. 4. Other findings unchanged including left adrenal nodule, splenomegaly, diverticulosis, bilateral perinephric fat stranding in right renal cyst, atrophic pancreas. Chest X-Ray 12/22/20 08:50 IMPRESSION: Mild linear atelectasis versus scarring in the right midlung and right lung base along with vascular crowding from right hemidiaphragm elevation. A definitive infiltrate is not seen. Chest CTA 12/22/20 09:49 IMPRESSION: 1. No evidence for pulmonary embolism. 2. Small right pleural effusion with mild adjacent mural pleural thickening and atelectasis. A nodule associated with the right major fissure could represent enlarged lymph node or loculated pleural fluid. Mild upper lobe predominant centrilobular emphysema. Small focal cystic changes in the right upper lobe with adjacent scarring is nonspecific. Given these multiple findings, a repeat contrast-enhanced chest CT scan should be considered in 3 months. 3. Mildly enlarged mediastinal lymph nodes are nonspecific and may be reactive. 4. Mild bilateral gynecomastia. 5. Upper abdominal splenomegaly. Left adrenal nodule contains fat suggesting an adrenal adenoma/angiomyolipoma. Please refer to the report from the CT scan of the abdomen and pelvis from today for more detailed findings. VTE: negative Assessment and Plan (1) Abscess, retroperitoneal: Status: Acute . (2) Afib: Status: Inactive (3) CHF (congestive heart failure): Status: Inactive (4) Diabetes: Status: Acute (5) HTN (hypertension): Status: Inactive (6) Ischemic cardiomyopathy: Status: Inactive 60-year-old male admitted to surgery service for anastomotic leak versus abscess, Medicine was consulted for medical management Abdominal abscess at anastomotic site Continue IV antibiotic Plan for IR guided drainage per surgery Management per surgery Diabetes mellitus Currently not on any anti diabetic medication Blood glucose around 200 on admission Will check A1c Continue sliding scale insulin Episode of chest pain yesterday atypical No chest pain today Troponin negative EKG shows no change ACS less likely AFib Continue amiodarone and metoprolol Not on anticoagulation Congestive heart failure appears euvolemic Continue Lasix DVT prophylaxis heparin subQ
[2020-12-22 17:18] LABS: Glucose, Whole Blood 117 mg/dL (60-115)
--- NOTE | 2020-12-22 20:26 | PC.NURSE ---
CALLED TO GIVE REPORT FOR ADMISSION PT IS RESTING QUIETLY WATCHING TV. HE REPORTS SOME PAIN CONTROL WITH EARLIER DOSE OF MORPHINE BUT REPORTS PAIN IS INCREASING
--- NOTE | 2020-12-22 20:47 | PC.NURSE ---
REPORT GIVEN FOR ADMISSION
[2020-12-22 22:00] LABS: Glucose, Whole Blood 126 mg/dL (60-115)
[2020-12-22] MEDS: Metoprolol Tartrate 25 MG TABLET PO (22:04)
[2020-12-22] MEDS: gemfibroziL 600 MG TABLET PO (22:05)
[2020-12-22] MEDS: Flu Vacc QS2020-21(6mos up)/PF 0.5 ML SYRINGE IM (22:45)
[2020-12-23] VITALS (11 sets, daily range): BP systolic 125–151; BP diastolic 61–68; PULSE 67–87; RESP 14–20; TEMP 36.1–36.7; O2SAT 92–98
[2020-12-23 03:25] LABS: Estimated Average Glucose 232 mg/dL; Hemoglobin A1c % 9.7 %
[2020-12-23] MEDS: Morphine Sulfate 4 MG/ML CARTRIDGE IVPUSH ×3 (03:31→14:42)
[2020-12-23] MEDS: ondansetron HCL 4 MG/2 ML VIAL IVPUSH (03:48)
[2020-12-23] MEDS: Heparin Sodium,Porcine 5,000 UNIT/ML VIAL 5000 UNIT SUBCUT ×2 (03:53→16:54)
[2020-12-23] MEDS: Piperacillin Sodium/Tazobactam 3.375 GM in 0.9 % Sodium Chloride 50 ML IV ×4 (03:58→22:54)
[2020-12-23] MEDS: metroNIDAZOLE/NS 500 MG/100 ML PIGGYBACK 100 MG IV ×2 (06:01→14:42)
[2020-12-23] MEDS: Omeprazole 20 MG CAPSULE.DR PO (06:01)
[2020-12-23 06:24] LABS: MANUAL DIFF FLAG NO
[2020-12-23 06:33] LABS: Basophils Percent Auto 0.2 % (0-2); Eosinophils Absolute Auto 0.1 X10*3/uL (0.0-0.4); Eosinophils Percent Auto 0.7 % (0-4); Hemoglobin 10.1 g/dl (14.0-18.0); Imm Gran Abs Auto 0.15 X10*3/uL (0.00-0.03); Imm Gran Pct Auto 0.8 % (0.0-0.4); Lymphocytes Absolute Auto 0.7 X10*3/uL (1.2-4.9); Lymphocytes Percent Auto 3.8 % (20-40); Mean Corpuscular HGB Conc 32.6 g/dl (31.0-36.0); Mean Corpuscular Hemoglobin 29.3 pg (27.0-33.0); Mean Corpuscular Volume 89.9 fL (80-98); Mean Platelet Volume 9.4 fL (9.4-12.4); Monocytes Absolute Auto 1.1 X10*3/uL (0.1-1.2); Monocytes Percent Auto 5.6 % (2-11); Neutrophils Absolute Auto 17.2 X10*3/uL (2.0-8.3); Neutrophils Percent Auto 88.9 % (45-73); Platelet Count 298 X10*3/uL (160-400); Red Blood Count 3.45 X10*6/uL (4.60-5.80); White Blood Count 19.4 X10*3/uL (4.8-10.8)
[2020-12-23 06:48] LABS: Anion Gap 14 (12-20); Blood Urea Nitrogen 14 mg/dL (9-16); Calcium 8.1 mg/dL (8.4-10.2); Carbon Dioxide 24 mmol/L (22-29); Chloride 106 mmol/L (96-108); Creatinine Clr Calc Pharmacy 130.2; Estimated Glomerular Filt Rate > 60; Glucose Random 143 mg/dL (60-115); Sodium 140 mmol/L (135-145)
[2020-12-23 07:40] LABS: Glucose, Whole Blood 145 mg/dL (60-115)
--- NOTE | 2020-12-23 07:42 | P.PNGS_ITS ---
Subjective Subjective Date of Service: 12/23/20 Interval history: Patient reports pain in the right flank and right lower abdomen; somewhat improved this morning with pain meds Physical Exam Vital Signs: Vital Signs: Last Vital Signs Temp 97.1 F 12/23/20 03:40 Pulse 87 12/23/20 03:40 Resp 18 12/23/20 03:40 BP 133/61 12/23/20 03:40 Pulse Ox 92 12/23/20 03:40 Body Mass Index 29.0 Const: General: cooperative, healthy appearing, comfortable and no acute distress Resp: Effort & Inspection: normal respiratory effort, no cough and not labored GI: Other: soft, obese, mild tenderness in the right lower abdomen with slight edema but no erythema. No rebound Skin: Other: warm and dry, no erythema Wounds: no wounds Extrem: Other: left BKA, right TMA Progress Note: A&P Assessment and plan (1) Abdominal fluid collection: Problem details: Right side ABD pain present for the last month but acutely worsening over the last day. Accompanied by dsypnea and overall feeling unwell. Likely an infected seroma or abscess Status: Acute Assessment and Plan: 60 year old male patient with multiple medical problems perforated appendicitis with large abscess, s/p right colectomy, now with a recurrent fluid collection in the right flank. Patient scheduled for IR drainage today of the large collection with cultures. WBC elevated today, on Zosyn and Flagyl. Await IR results. Fall Risk Details Current Medications: Current Medications Generic Name Dose Route Start Last Admin Trade Name Freq PRN Reason Stop Dose Admin Amiodarone HCl 200 mg 12/23/20 09:00 Amiodarone Hcl 200 Mg Tablet PO DAILY KANCHAN Furosemide 40 mg 12/23/20 09:00 Furosemide 40 Mg Tablet PO DAILY KANCHAN Gemfibrozil 600 mg 12/22/20 21:00 12/22/20 22:05 Gemfibrozil 600 Mg Tablet PO 600 mg BID [facility] Administration Heparin Sodium (Porcine) 5,000 unit 12/22/20 16:00 12/23/20 03:53 Heparin Sodium,Porcine 5,000 Unit/Ml Vial SUBCUT 5,000 unit Q12H [facility] Administration Sodium Chloride 1,000 mls @ 100 mls/hr 12/22/20 14:45 12/22/20 23:57 Ns IVCONT 100 mls/hr .Q10H [facility] Administration Metronidazole 500 mg in 100 mls @ 100 mls/hr 12/22/20 15:00 12/23/20 07:18 Flagyl IV Infused Q8H [facility] Infusion Piperacillin Sod/Tazobactam 50 mls @ 100 mls/hr 12/22/20 16:00 12/23/20 04:33 Sod 3.375 gm/ Sodium Chloride IV Infused Q6H [facility] Infusion Insulin Human Lispro 0 unit 12/22/20 21:00 12/23/20 07:34 Insulin Lispro 100 Unit/Ml 3 Ml Vial SUBCUT Not Given QIDACHS [facility] Protocol Metoprolol Tartrate 25 mg 12/22/20 21:00 12/22/20 22:04 Metoprolol Tartrate 25 Mg Tablet PO 25 mg BID [facility] Administration Morphine Sulfate 4 mg 12/22/20 14:38 12/23/20 03:31 Morphine Sulfate 4 Mg/Ml Cartridge IVPUSH 4 mg Q4H PRN Administration Pain, Severe (Pain Scale 7-10) Omeprazole 20 mg 12/22/20 16:30 12/23/20 06:01 Omeprazole 20 Mg Capsule. PO 20 mg BID@0630,1630 [facility] Administration Ondansetron HCl 4 mg 12/22/20 14:38 12/23/20 03:48 Ondansetron Hcl 4 Mg/2 Ml Vial IVPUSH 4 mg Q8H PRN Administration Nausea and Vomiting Sodium Chloride 3 ml 12/22/20 16:00 12/23/20 07:34 0.9 % Sodium Chloride Flush 3 Ml Syringe IVFLUSH Not Given QSHIFT [facility] Time Spent With Patient Time: Total time spent is greater than 50% in coordination of care (as documented) at patient's floor/unit and/or counseling patient: Time with patient: 15 - 24 minutes
[2020-12-23] MEDS: Metoprolol Tartrate 25 MG TABLET PO ×2 (07:59→20:30)
[2020-12-23] MEDS: Furosemide 40 MG TABLET PO (07:59)
[2020-12-23] MEDS: gemfibroziL 600 MG TABLET PO ×2 (07:59→20:30)
[2020-12-23] MEDS: Amiodarone HCL 200 MG TABLET PO (08:00)
--- NOTE | 2020-12-23 09:08 | MHC.CM.PN ---
PATIENT LIVES WITH HIS MOTHER, WHO HE IS THE [employer]. HCP DOCUMENT FOUND IN PREVIOUS ADMISSION OF [employer]TS AND COPY PLACED IN CHART. PATIENT HAS LOWER LIMB PROSTHESIS AND USES NO VNA SERVICES. CASE MANAGEMENT FOLLOWING FOR DISCHARGE PLANS. PATIENT WOULD PREFER TO RETURN HOME WITH NO SERVICES NEEDED. HE STATES THAT HE CAN ARRANGE FAMILY TO TRANSPORT UPON DISCHARGE. IMM 12/23 IN CHART.
[2020-12-23] MEDS: Lidocaine HCl 1 % MPF 5 ML VIAL 10 ML SUBCUT (11:14)
[2020-12-23 11:27] LABS: Glucose, Whole Blood 141 mg/dL (60-115)
[2020-12-23] MEDS: 0.9 % Sodium Chloride 1,000 ML 100 ML IVCONT ×2 (11:32→22:39)
--- NOTE | 2020-12-23 16:16 | P.PNIM_ITS ---
Subjective Subjective Date of Service: 12/23/20 Interval History: patient seen and examined at bedside patient was reporting abdominal pain Cardiovascular Cardiovascular: Reports dyspnea Respiratory Respiratory: Reports dyspnea Gastrointestinal Gastrointestinal: Reports abdominal pain (Right side), Reports diarrhea and Reports nausea Integumentary/Breasts Skin/Breast: Reports skin pain Physical Exam Vital Signs: Vital Signs: Last Vital Signs Temp 97.0 F 12/23/20 15:16 Pulse 75 12/23/20 15:16 Resp 14 12/23/20 15:16 BP 151/68 H 12/23/20 15:16 Pulse Ox 97 12/23/20 15:16 Body Mass Index 29.0 Const: General: no acute distress Nutritional Appearance: obese GI: Inspection: Yes incision and Yes Abdominal panniculus present Palpation (GI): Soft to palpation and Tenderness to palpation present (GI) in the RLQ and in the RUQ Skin: General skin exam: erythema (Right Flank) Objective Data Current Medications Generic Name Dose Route Start Last Admin Trade Name Freq PRN Reason Stop Dose Admin Amiodarone HCl 200 mg 12/23/20 09:00 12/23/20 08:00 Amiodarone Hcl 200 Mg Tablet PO 200 mg DAILY [facility] Administration Furosemide 40 mg 12/23/20 09:00 12/23/20 07:59 Furosemide 40 Mg Tablet PO 40 mg DAILY [facility] Administration Gemfibrozil 600 mg 12/22/20 21:00 12/23/20 07:59 Gemfibrozil 600 Mg Tablet PO 600 mg BID [facility] Administration Heparin Sodium (Porcine) 5,000 unit 12/22/20 16:00 12/23/20 03:53 Heparin Sodium,Porcine 5,000 Unit/Ml Vial SUBCUT 5,000 unit Q12H [facility] Administration Sodium Chloride 1,000 mls @ 100 mls/hr 12/22/20 14:45 12/23/20 11:32 Ns IVCONT 100 mls/hr .Q10H [facility] Administration Metronidazole 500 mg in 100 mls @ 100 mls/hr 12/22/20 15:00 12/23/20 15:44 Flagyl IV Infused Q8H [facility] Infusion Piperacillin Sod/Tazobactam 50 mls @ 100 mls/hr 12/22/20 16:00 12/23/20 12:03 Sod 3.375 gm/ Sodium Chloride IV Infused Q6H [facility] Infusion Insulin Human Lispro 0 unit 12/22/20 21:00 12/23/20 11:28 Insulin Lispro 100 Unit/Ml 3 Ml Vial SUBCUT Not Given QIDACHS [facility] Protocol Metoprolol Tartrate 25 mg 12/22/20 21:00 12/23/20 07:59 Metoprolol Tartrate 25 Mg Tablet PO 25 mg BID [facility] Administration Morphine Sulfate 4 mg 12/22/20 14:38 12/23/20 14:42 Morphine Sulfate 4 Mg/Ml Cartridge IVPUSH 4 mg Q4H PRN Administration Pain, Severe (Pain Scale 7-10) Omeprazole 20 mg 12/22/20 16:30 12/23/20 06:01 Omeprazole 20 Mg Capsule. PO 20 mg BID@0673,9190 [facility] Administration Ondansetron HCl 4 mg 12/22/20 14:38 12/23/20 03:48 Ondansetron Hcl 4 Mg/2 Ml Vial IVPUSH 4 mg Q8H PRN Administration Nausea and Vomiting Sodium Chloride 3 ml 12/22/20 16:00 12/23/20 15:35 0.9 % Sodium Chloride Flush 3 Ml Syringe IVFLUSH Not Given QSHIFT [facility] Labs CBC & Chem 7: 12/23/20 05:59 12/23/20 05:59 Microbiology Microbiology Results: Microbiology 12/23/20 10:45 Abscess Intra-abdominal Gram Stain - Final 12/22/20 09:30 Blood - Venous Blood Culture - Preliminary No growth after 24 hours. 12/22/20 09:09 Blood - Venous Blood Culture - Preliminary No growth after 24 hours. Assessment and Plan (1) Abscess, retroperitoneal: Status: Acute Assessment and Plan: . (2) Afib: Status: Inactive (3) CHF (congestive heart failure): Status: Inactive (4) Diabetes: Status: Acute (5) HTN (hypertension): Status: Inactive (6) Ischemic cardiomyopathy: Status: Inactive Assessment and Plan: 60-year-old male admitted to surgery service for anastomotic leak versus abscess, Medicine was consulted for medical management Abdominal abscess at anastomotic site Continue IV antibiotic Plan for IR guided drainage today Management per surgery Diabetes mellitus Currently not on any anti diabetic medication HbA1c 9.1 Continue sliding scale insulin will need anti diabetic medication on discharge Episode of chest pain atypical resolved Troponin negative EKG shows no change ACS less likely AFib Continue amiodarone and metoprolol Not on anticoagulation Congestive heart failure appears euvolemic Continue Lasix DVT prophylaxis heparin subQ
[2020-12-23 16:28] LABS: Glucose, Whole Blood 150 mg/dL (60-115)
[2020-12-23 20:23] LABS: Glucose, Whole Blood 151 mg/dL (60-115)
[2020-12-23] MEDS: Insulin Lispro 100 UNIT/ML 3 ML VIAL SUBCUT (20:30)
[2020-12-24] VITALS (9 sets, daily range): BP systolic 134–159; BP diastolic 60–74; PULSE 66–93; RESP 14–20; TEMP 36.2–36.7; O2SAT 94–96
[2020-12-24] MEDS: metroNIDAZOLE/NS 500 MG/100 ML PIGGYBACK 100 MG IV ×4 (00:35→23:00)
[2020-12-24] MEDS: Morphine Sulfate 4 MG/ML CARTRIDGE IVPUSH (02:54)
[2020-12-24] MEDS: Piperacillin Sodium/Tazobactam 3.375 GM in 0.9 % Sodium Chloride 50 ML IV ×4 (04:30→22:07)
[2020-12-24] MEDS: Heparin Sodium,Porcine 5,000 UNIT/ML VIAL 5000 UNIT SUBCUT ×2 (04:30→17:13)
[2020-12-24 06:20] LABS: MANUAL DIFF FLAG NO
[2020-12-24 06:25] LABS: Basophils Percent Auto 0.2 % (0-2); Eosinophils Absolute Auto 0.2 X10*3/uL (0.0-0.4); Eosinophils Percent Auto 1.4 % (0-4); Hematocrit 29.9 % (42-52); Hemoglobin 9.7 g/dl (14.0-18.0); Imm Gran Abs Auto 0.18 X10*3/uL (0.00-0.03); Imm Gran Pct Auto 1.2 % (0.0-0.4); Lymphocytes Absolute Auto 1.1 X10*3/uL (1.2-4.9); Lymphocytes Percent Auto 6.9 % (20-40); Mean Corpuscular HGB Conc 32.4 g/dl (31.0-36.0); Mean Corpuscular Hemoglobin 28.9 pg (27.0-33.0); Mean Platelet Volume 9.3 fL (9.4-12.4); Monocytes Absolute Auto 0.8 X10*3/uL (0.1-1.2); Neutrophils Absolute Auto 13.3 X10*3/uL (2.0-8.3); Neutrophils Percent Auto 85.3 % (45-73); Platelet Count 350 X10*3/uL (160-400); Red Blood Count 3.36 X10*6/uL (4.60-5.80); Red Cell Distribution Width 12.9 % (11.0-16.0); White Blood Count 15.5 X10*3/uL (4.8-10.8)
[2020-12-24] MEDS: Omeprazole 20 MG CAPSULE.DR PO ×2 (06:25→17:13)
[2020-12-24] MEDS: 0.9 % Sodium Chloride 1,000 ML 100 ML IVCONT ×2 (06:36→14:47)
[2020-12-24 06:52] LABS: Anion Gap 13 (12-20); Blood Urea Nitrogen 16 mg/dL (9-16); Calcium 7.8 mg/dL (8.4-10.2); Carbon Dioxide 25 mmol/L (22-29); Chloride 108 mmol/L (96-108); Creatinine Clr Calc Pharmacy 139.7; Estimated Glomerular Filt Rate > 60; Glucose Random 99 mg/dL (60-115); Potassium 3.8 mmol/L (3.3-5.1); Sodium 142 mmol/L (135-145)
[2020-12-24 07:50] LABS: Glucose, Whole Blood 104 mg/dL (60-115)
--- NOTE | 2020-12-24 07:54 | P.PNGS_ITS ---
Subjective Subjective Date of Service: 12/24/20 Interval history: Hospital day 2, reports some nausea and vomiting yesterday evening perhaps due to pain medication. Feels improved after Phenergan dose. Has some abdominal pain her drain but generally feels much improved from yesterday. Not feeling very hungry at this time and is happy with the clear liquid diet for now. He would like to get up in out of bed today to walk the hallways. Physical Exam Vital Signs: Vital Signs: Last Vital Signs Temp 98.0 F 12/24/20 03:37 Pulse 69 12/24/20 03:37 Resp 20 12/24/20 03:37 BP 136/60 12/24/20 03:37 Pulse Ox 96 12/24/20 03:37 Body Mass Index 29.0 Const: General: cooperative, healthy appearing, comfortable and no acute distress Neck: Neck: Yes normal visual inspection Resp: Other: Breathing comfortably on room air, no shortness of breath GI: Other: Soft and nondistended, IR drain intact, draining bloody/purulent fluid. No peritoneal signs. Extrem: Other: No edema Progress Note: A&P Assessment and plan (1) Abdominal fluid collection: Problem details: Right side ABD pain present for the last month but acutely worsening over the last day. Accompanied by dsypnea and overall feeling unwell. Likely an infected seroma or abscess Status: Acute Assessment and Plan: Patient found to have an abscess in the retroperitoneum/intraperitoneal, status post IR drainage yesterday. Abdominal exam is much improved with decreased tenderness and swelling. Approximately 550 mL of murky fluid was drained yesterday. A small amount of bloody fluid is draining now. Will continue the drainage to gravity bag. Await cultures on the fluid. Gram stain appears to be mixed bacteria. Continue on Zosyn and Flagyl. Will switch pain medications to Dilaudid. Continue on the clear liquid diet. Encourage patient to get out of bed and ambulate today. Fall Risk Details Current Medications: Current Medications Generic Name Dose Route Start Last Admin Trade Name Freq PRN Reason Stop Dose Admin Amiodarone HCl 200 mg 12/23/20 09:00 12/23/20 08:00 Amiodarone Hcl 200 Mg Tablet PO 200 mg DAILY [facility]CHAN Administration Furosemide 40 mg 12/23/20 09:00 12/23/20 07:59 Furosemide 40 Mg Tablet PO 40 mg DAILY [facility] Administration Gemfibrozil 600 mg 12/22/20 21:00 12/23/20 20:30 Gemfibrozil 600 Mg Tablet PO 600 mg BID [facility] Administration Heparin Sodium (Porcine) 5,000 unit 12/22/20 16:00 12/24/20 04:30 Heparin Sodium,Porcine 5,000 Unit/Ml Vial SUBCUT 5,000 unit Q12H [facility] Administration Sodium Chloride 1,000 mls @ 100 mls/hr 12/22/20 14:45 12/24/20 06:36 Ns IVCONT 100 mls/hr .Q10H [facility] Administration Metronidazole 500 mg in 100 mls @ 100 mls/hr 12/22/20 15:00 12/24/20 02:31 Flagyl IV Infused Q8H [facility] Infusion Piperacillin Sod/Tazobactam 50 mls @ 100 mls/hr 12/22/20 16:00 12/24/20 05:18 Sod 3.375 gm/ Sodium Chloride IV Infused Q6H [facility] Infusion Promethazine HCl 12.5 mg/ 50.5 mls @ 202 mls/hr 12/23/20 17:20 12/23/20 17:57 Sodium Chloride IV Infused Q6H PRN Infusion Nausea Insulin Human Lispro 0 unit 12/22/20 21:00 12/23/20 20:30 Insulin Lispro 100 Unit/Ml 3 Ml Vial SUBCUT 2 unit QIDACHS [facility] Administration Protocol Metoprolol Tartrate 25 mg 12/22/20 21:00 12/23/20 20:30 Metoprolol Tartrate 25 Mg Tablet PO 25 mg BID [facility] Administration Morphine Sulfate 4 mg 12/22/20 14:38 12/24/20 02:54 Morphine Sulfate 4 Mg/Ml Cartridge IVPUSH 4 mg Q4H PRN Administration Pain, Severe (Pain Scale 7-10) Omeprazole 20 mg 12/22/20 16:30 12/24/20 06:25 Omeprazole 20 Mg Capsule.Dr PO 20 mg BID@0630,1630 [facility] Administration Ondansetron HCl 4 mg 12/22/20 14:38 12/23/20 03:48 Ondansetron Hcl 4 Mg/2 Ml Vial IVPUSH 4 mg Q8H PRN Administration Nausea and Vomiting Sodium Chloride 3 ml 12/22/20 16:00 12/24/20 00:40 0.9 % Sodium Chloride Flush 3 Ml Syringe IVFLUSH Not Given QSHIFT [facility] Time Spent With Patient Time: Total time spent is greater than 50% in coordination of care (as docu mented) at patient's floor/unit and/or counseling patient: Time with patient: 15 - 24 minutes
[2020-12-24] MEDS: Furosemide 40 MG TABLET PO (08:18)
[2020-12-24] MEDS: gemfibroziL 600 MG TABLET PO ×2 (08:18→21:19)
[2020-12-24] MEDS: Amiodarone HCL 200 MG TABLET PO (08:18)
[2020-12-24] MEDS: Metoprolol Tartrate 25 MG TABLET PO ×2 (08:18→21:18)
[2020-12-24] MEDS: HYDROmorphone HCl 0.5 MG/0.5 ML SYRINGE IVPUSH ×2 (08:19→14:45)
[2020-12-24 11:28] LABS: Glucose, Whole Blood 138 mg/dL (60-115)
--- NOTE | 2020-12-24 16:15 | P.PNIM_ITS ---
Subjective Subjective Date of Service: 12/24/20 Interval History: Patient seen and examined at bedside patient was reporting abdominal pain improving Cardiovascular Cardiovascular: Reports dyspnea Respiratory Respiratory: Reports dyspnea Gastrointestinal Gastrointestinal: Reports abdominal pain (Right side), Reports diarrhea and Reports nausea Integumentary/Breasts Skin/Breast: Reports skin pain Physical Exam Vital Signs: Vital Signs: Last Vital Signs Temp 98 F 12/24/20 15:48 Pulse 71 12/24/20 15:48 Resp 15 12/24/20 15:48 BP 150/66 H 12/24/20 15:48 Pulse Ox 94 12/24/20 15:48 Body Mass Index 29.0 Const: General: no acute distress Nutritional Appearance: obese GI: Inspection: Yes incision and Yes Abdominal panniculus present Palpation (GI): Soft to palpation and Tenderness to palpation present (GI) in the RLQ and in the RUQ Skin: General skin exam: erythema (Right Flank) Objective Data Current Medications Generic Name Dose Route Start Last Admin Trade Name Freq PRN Reason Stop Dose Admin Amiodarone HCl 200 mg 12/23/20 09:00 12/24/20 08:18 Amiodarone Hcl 200 Mg Tablet PO 200 mg DAILY KANCHAN Administration Furosemide 40 mg 12/23/20 09:00 12/24/20 08:18 Furosemide 40 Mg Tablet PO 40 mg DAILY [facility] Administration Gemfibrozil 600 mg 12/22/20 21:00 12/24/20 08:18 Gemfibrozil 600 Mg Tablet PO 600 mg BID [facility] Administration Heparin Sodium (Porcine) 5,000 unit 12/22/20 16:00 12/24/20 04:30 Heparin Sodium,Porcine 5,000 Unit/Ml Vial SUBCUT 5,000 unit Q12H [facility] Administration Hydromorphone HCl 0.5 mg 12/24/20 08:00 12/24/20 14:45 Hydromorphone Hcl 0.5 Mg/0.5 Ml Syringe IVPUSH 0.5 mg Q4H PRN Administration Pain, Severe (Pain Scale 7-10) Sodium Chloride 1,000 mls @ 100 mls/hr 12/22/20 14:45 12/24/20 14:47 Ns IVCONT 100 mls/hr .Q10H [facility] Administration Metronidazole 500 mg in 100 mls @ 100 mls/hr 12/22/20 15:00 12/24/20 16:06 Flagyl IV Infused Q8H [facility] Infusion Piperacillin Sod/Tazobactam 50 mls @ 100 mls/hr 12/22/20 16:00 12/24/20 11:01 Sod 3.375 gm/ Sodium Chloride IV Infused Q6H [facility] Infusion Promethazine HCl 12.5 mg/ 50.5 mls @ 202 mls/hr 12/23/20 17:20 12/23/20 17:57 Sodium Chloride IV Infused Q6H PRN Infusion Nausea Insulin Human Lispro 0 unit 12/22/20 21:00 12/24/20 11:26 Insulin Lispro 100 Unit/Ml 3 Ml Vial SUBCUT Not Given QIDACHS [facility] Protocol Metoprolol Tartrate 25 mg 12/22/20 21:00 12/24/20 08:18 Metoprolol Tartrate 25 Mg Tablet PO 25 mg BID [facility] Administration Omeprazole 20 mg 12/22/20 16:30 12/24/20 06:25 Omeprazole 20 Mg Capsule.Dr PO 20 mg BID@0630,1630 [facility] Administration Ondansetron HCl 4 mg 12/22/20 14:38 12/23/20 03:48 Ondansetron Hcl 4 Mg/2 Ml Vial IVPUSH 4 mg Q8H PRN Administration Nausea and Vomiting Sodium Chloride 3 ml 12/22/20 16:00 12/24/20 08:18 0.9 % Sodium Chloride Flush 3 Ml Syringe IVFLUSH Not Given QSHIFT [facility] Labs CBC & Chem 7: 12/24/20 05:50 12/24/20 05:50 Microbiology Microbiology Results: Microbiology 12/22/20 09:30 Blood - Venous Blood Culture - Preliminary No growth after 48 hours. 12/22/20 09:09 Blood - Venous Blood Culture - Preliminary No growth after 48 hours. 12/23/20 10:45 Abscess Intra-abdominal Gram Stain - Final 12/23/20 10:45 Abscess Intra-abdominal Routine Culture - Preliminary Culture in progress. Assessment and Plan (1) Abscess, retroperitoneal: Status: Acute Assessment and Plan: . (2) Afib: Status: Inactive (3) CHF (congestive heart failure): Status: Inactive (4) Diabetes: Status: Acute (5) HTN (hypertension): Status: Inactive (6) Ischemic cardiomyopathy: Status: Inactive Assessment and Plan: 60-year-old male admitted to surgery service for anastomotic leak versus abscess, Medicine was consulted for medical management Abdominal abscess at anastomotic site status post IR guided drainage Continue IV antibiotic follow-up cultures Management per surgery Diabetes mellitus Currently not on any anti diabetic medication HbA1c 9.1 Continue sliding scale insulin blood glucose under controlled will need anti diabetic medication on discharge AFib Continue amiodarone and metoprolol Not on anticoagulation chads Vasc score 2 will consider starting anticoagulation once surgical issue resolved Congestive heart failure appears euvolemic Continue Lasix DVT prophylaxis heparin subQ
[2020-12-24 16:59] LABS: Glucose, Whole Blood 123 mg/dL (60-115)
[2020-12-24 21:11] LABS: Glucose, Whole Blood 159 mg/dL (60-115)
[2020-12-24] MEDS: Insulin Lispro 100 UNIT/ML 3 ML VIAL SUBCUT (21:19)
[2020-12-25] VITALS (7 sets, daily range): BP systolic 140–179; BP diastolic 58–83; PULSE 72–77; RESP 16–20; TEMP 35.7–37; O2SAT 95–98
[2020-12-25] MEDS: 0.9 % Sodium Chloride 1,000 ML 100 ML IVCONT ×2 (00:28→10:32)
[2020-12-25] MEDS: HYDROmorphone HCl 0.5 MG/0.5 ML SYRINGE IVPUSH ×4 (00:59→20:05)
[2020-12-25] MEDS: Piperacillin Sodium/Tazobactam 3.375 GM in 0.9 % Sodium Chloride 50 ML IV ×4 (04:02→21:00)
[2020-12-25] MEDS: Heparin Sodium,Porcine 5,000 UNIT/ML VIAL 5000 UNIT SUBCUT ×2 (04:05→16:19)
[2020-12-25 06:18] LABS: MANUAL DIFF FLAG NO
[2020-12-25] MEDS: metroNIDAZOLE/NS 500 MG/100 ML PIGGYBACK 100 MG IV (06:24)
[2020-12-25] MEDS: Omeprazole 20 MG CAPSULE.DR PO ×2 (06:24→16:20)
[2020-12-25 06:26] LABS: Basophils Percent Auto 0.2 % (0-2); Eosinophils Absolute Auto 0.3 X10*3/uL (0.0-0.4); Eosinophils Percent Auto 1.7 % (0-4); Hematocrit 31.7 % (42-52); Hemoglobin 10.4 g/dl (14.0-18.0); Imm Gran Abs Auto 0.16 X10*3/uL (0.00-0.03); Imm Gran Pct Auto 1.1 % (0.0-0.4); Lymphocytes Percent Auto 6.4 % (20-40); Mean Corpuscular HGB Conc 32.8 g/dl (31.0-36.0); Mean Corpuscular Hemoglobin 29.1 pg (27.0-33.0); Mean Corpuscular Volume 88.5 fL (80-98); Mean Platelet Volume 9.2 fL (9.4-12.4); Monocytes Absolute Auto 0.7 X10*3/uL (0.1-1.2); Monocytes Percent Auto 4.7 % (2-11); Neutrophils Absolute Auto 12.8 X10*3/uL (2.0-8.3); Neutrophils Percent Auto 85.9 % (45-73); Platelet Count 359 X10*3/uL (160-400); Red Blood Count 3.58 X10*6/uL (4.60-5.80); Red Cell Distribution Width 12.9 % (11.0-16.0); White Blood Count 14.9 X10*3/uL (4.8-10.8)
[2020-12-25 06:49] LABS: Anion Gap 12 (12-20); Blood Urea Nitrogen 10 mg/dL (9-16); Calcium 7.6 mg/dL (8.4-10.2); Carbon Dioxide 25 mmol/L (22-29); Chloride 107 mmol/L (96-108); Creatinine Clr Calc Pharmacy 155.4; Estimated Glomerular Filt Rate > 60; Glucose Random 122 mg/dL (60-115); Potassium 3.4 mmol/L (3.3-5.1); Sodium 141 mmol/L (135-145)
[2020-12-25 07:39] LABS: Glucose, Whole Blood 127 mg/dL (60-115)
--- NOTE | 2020-12-25 07:40 | P.PNGS_ITS ---
Subjective Subjective Date of Service: 12/25/20 Interval history: Reports more nausea and vomiting after drinking water. Also having loose stool which he is not able to control. Tried to get up out of bed but had to stop because of bowel movement. Reports the pain is improved on the right side. Denies fever or chills. Physical Exam Vital Signs: Vital Signs: Last Vital Signs Temp 97.1 F 12/25/20 07:26 Pulse 77 12/25/20 07:26 Resp 16 12/25/20 07:26 BP 179/83 H 12/25/20 07:26 Pulse Ox 98 12/25/20 07:26 Body Mass Index 29.0 Const: General: cooperative, comfortable, no acute distress and alert Orientation/consciousness: patient oriented x3 Resp: Effort & Inspection: normal respiratory effort Auscultation: clear to auscultation bilaterally GI: Other: Soft, nondistended, nontender, intact drain in the right lower quadrant, mainly dark bloody fluid within tube and bag. 150 mL drained yesterday Skin: Other: Warm, dry, no rash Neuro: General: patient oriented x3 Progress Note: A&P Assessment and plan (1) Abscess, retroperitoneal: Status: Acute Assessment and Plan: Patient with mainly bloody discharge from his IR placed tube, less purulent. Cultures of the fluid are pending. Patient now having diarrhea which he is unable to control. Will check stool for C diff. patient would like to try so lid food therefore will advance to a diabetic diet. Await wound cultures to tailor antibiotics. Fall Risk Details Current Medications: Current Medications Generic Name Dose Route Start Last Admin Trade Name Gualberto PRN Reason Stop Dose Admin Amiodarone HCl 200 mg 12/23/20 09:00 12/24/20 08:18 Amiodarone Hcl 200 Mg Tablet PO 200 mg DAILY [facility] Administration Furosemide 40 mg 12/23/20 09:00 12/24/20 08:18 Furosemide 40 Mg Tablet PO 40 mg DAILY [facility] Administration Gemfibrozil 600 mg 12/22/20 21:00 12/24/20 21:19 Gemfibrozil 600 Mg Tablet PO 600 mg BID [facility] Administration Heparin Sodium (Porcine) 5,000 unit 12/22/20 16:00 12/25/20 04:05 Heparin Sodium,Porcine 5,000 Unit/Ml Vial SUBCUT 5,000 unit Q12H [facility] Administration Hydromorphone HCl 0.5 mg 12/24/20 08:00 12/25/20 00:59 Hydromorphone Hcl 0.5 Mg/0.5 Ml Syringe IVPUSH 0.5 mg Q4H PRN Administration Pain, Severe (Pain Scale 7-10) Sodium Chloride 1,000 mls @ 100 mls/hr 12/22/20 14:45 12/25/20 00:28 Ns IVCONT 100 mls/hr .Q10H [facility] Administration Metronidazole 500 mg in 100 mls @ 100 mls/hr 12/22/20 15:00 12/25/20 06:24 Flagyl IV 100 mls/hr Q8H [facility] Administration Piperacillin Sod/Tazobactam 50 mls @ 100 mls/hr 12/22/20 16:00 12/25/20 04:30 Sod 3.375 gm/ Sodium Chloride IV Infused Q6H [facility] Infusion Promethazine HCl 12.5 mg/ 50.5 mls @ 202 mls/hr 12/23/20 17:20 12/25/20 03:48 Sodium Chloride IV Infused Q6H PRN Infusion Nausea Insulin Human Lispro 0 unit 12/22/20 21:00 12/24/20 21:19 Insulin Lispro 100 Unit/Ml 3 Ml Vial SUBCUT 2 unit QIDACHS [facility] Administration Protocol Metoprolol Tartrate 25 mg 12/22/20 21:00 12/24/20 21:18 Metoprolol Tartrate 25 Mg Tablet PO 25 mg BID [facility] Administration Omeprazole 20 mg 12/22/20 16:30 12/25/20 06:24 Omeprazole 20 Mg Capsule. PO 20 mg BID@0630,1630 [facility] Administration Ondansetron HCl 4 mg 12/22/20 14:38 12/23/20 03:48 Ondansetron Hcl 4 Mg/2 Ml Vial IVPUSH 4 mg Q8H PRN Administration Nausea and Vomiting Sodium Chloride 3 ml 12/22/20 16:00 12/25/20 00:29 0.9 % Sodium Chloride Flush 3 Ml Syringe IVFLUSH Not Given QSHIFT [facility] Time Spent With Patient Time: Total time spent is greater than 50% in coordination of care (as documented) at patient's floor/unit and/or counseling patient: Time with patient: 15 - 24 minutes
[2020-12-25] MEDS: Amiodarone HCL 200 MG TABLET PO (09:02)
[2020-12-25] MEDS: Furosemide 40 MG TABLET PO (09:02)
[2020-12-25] MEDS: gemfibroziL 600 MG TABLET PO ×2 (09:02→20:54)
[2020-12-25] MEDS: Metoprolol Tartrate 25 MG TABLET PO ×2 (09:02→20:54)
[2020-12-25 11:27] LABS: CDIFF Ag Negative (Negative); CDiff Toxin Negative (Negative)
[2020-12-25 11:28] LABS: CDIFF Internal ctrl Dots and bkg OK (V)
[2020-12-25 11:32] LABS: Glucose, Whole Blood 136 mg/dL (60-115)
--- NOTE | 2020-12-25 12:28 | HO.PM.IMPN ---
Subjective Subjective Date of Service: 12/25/20 Interval History: Patient seen and examined at bedside patient was reporting abdominal discomfort Cardiovascular Cardiovascular: Reports dyspnea Respiratory Respiratory: Reports dyspnea Gastrointestinal Gastrointestinal: Reports abdominal pain (Right side), Reports diarrhea and Reports nausea Integumentary/Breasts Skin/Breast: Reports skin pain Physical Exam Vital Signs: Vital Signs: Last Vital Signs Temp 97.3 F 12/25/20 11:06 Pulse 74 12/25/20 11:06 Resp 16 12/25/20 11:06 BP 165/75 H 12/25/20 11:06 Pulse Ox 97 12/25/20 11:06 Body Mass Index 29.0 Const: General: no acute distress Nutritional Appearance: obese GI: Inspection: Yes incision Palpation (GI): Soft to palpation, Tenderness to palpation present (GI) in the RLQ and in the RUQ and Other GI palpation findings present ( drain in place draining bloody discharge) Auscultation: other Skin: General skin exam: erythema (Right Flank) Objective Data Current Medications Generic Name Dose Route Start Last Admin Trade Name Freq PRN Reason Stop Dose Admin Amiodarone HCl 200 mg 12/23/20 09:00 12/25/20 09:02 Amiodarone Hcl 200 Mg Tablet PO 200 mg DAILY KANCHAN Administration Furosemide 40 mg 12/23/20 09:00 12/25/20 09:02 Furosemide 40 Mg Tablet PO 40 mg DAILY KANCHAN Administration Gemfibrozil 600 mg 12/22/20 21:00 12/25/20 09:02 Gemfibrozil 600 Mg Tablet PO 600 mg BID KANCHAN Administration Heparin Sodium (Porcine) 5,000 unit 12/22/20 16:00 12/25/20 04:05 Heparin Sodium,Porcine 5,000 Unit/Ml Vial SUBCUT 5,000 unit Q12H KANCHAN Administration Hydromorphone HCl 0.5 mg 12/24/20 08:00 12/25/20 10:30 Hydromorphone Hcl 0.5 Mg/0.5 Ml Syringe IVPUSH 0.5 mg Q4H PRN Administration Pain, Severe (Pain Scale 7-10) Sodium Chloride 1,000 mls @ 100 mls/hr 12/22/20 14:45 12/25/20 10:32 Ns IVCONT 100 mls/hr .Q10H KANCHAN Administration Piperacillin Sod/Tazobactam 50 mls @ 100 mls/hr 12/22/20 16:00 12/25/20 09:55 Sod 3.375 gm/ Sodium Chloride IV Infused Q6H KANCHAN Infusion Promethazine HCl 12.5 mg/ 50.5 mls @ 202 mls/hr 12/23/20 17:20 12/25/20 03:48 Sodium Chloride IV Infused Q6H PRN Infusion Nausea Insulin Human Lispro 0 unit 12/22/20 21:00 12/25/20 11:43 Insulin Lispro 100 Unit/Ml 3 Ml Vial SUBCUT Not Given QIDACHS [facility] Protocol Metoprolol Tartrate 25 mg 12/22/20 21:00 12/25/20 09:02 Metoprolol Tartrate 25 Mg Tablet PO 25 mg BID KANCHAN Administration Omeprazole 20 mg 12/22/20 16:30 12/25/20 06:24 Omeprazole 20 Mg Capsule.Dr PO 20 mg BID@0630,1630 [facility] Administration Ondansetron HCl 4 mg 12/22/20 14:38 12/23/20 03:48 Ondansetron Hcl 4 Mg/2 Ml Vial IVPUSH 4 mg Q8H PRN Administration Nausea and Vomiting Oxycodone HCl 5 mg 12/25/20 07:45 Oxycodone Hcl Immed Release 5 Mg Tablet PO Q4H PRN Pain, Moderate (Pain Scale 4-6 Sodium Chloride 3 ml 12/22/20 16:00 12/25/20 08:45 0.9 % Sodium Chloride Flush 3 Ml Syringe IVFLUSH Not Given QSHIFT [facility] Labs CBC & Chem 7: 12/25/20 05:58 12/25/20 05:58 Microbiology Microbiology Results: Microbiology 12/23/20 10:45 Abscess Intra-abdominal Gram Stain - Final 12/23/20 10:45 Abscess Intra-abdominal Routine Culture - Final 12/22/20 09:30 Blood - Venous Blood Culture - Preliminary No growth after 48 hours. 12/22/20 09:09 Blood - Venous Blood Culture - Preliminary No growth after 48 hours. Assessment and Plan (1) Abscess, retroperitoneal: Status: Acute Assessment and Plan: . (2) Afib: Status: Inactive (3) CHF (congestive heart failure): Status: Inactive (4) Diabetes: Status: Acute (5) HTN (hypertension): Status: Inactive (6) Ischemic cardiomyopathy: Status: Inactive Assessment and Plan: 60-year-old male admitted to surgery service for anastomotic leak versus abscess, Medicine was consulted for medical management Abdominal abscess at anastomotic site status post IR guided drainage Continue IV antibiotic follow-up cultures Management per surgery diarrhea likely secondary to antibiotic, C diff ordered per surgery Diabetes mellitus Currently not on any anti diabetic medication HbA1c 9.1 Continue sliding scale insulin blood glucose consistently 150 or below likely due to poor p.o. intake AFib Continue amiodarone and metoprolol Not on anticoagulation chads Vasc score 2 will consider starting anticoagulation once surgical issue resolved Congestive heart failure appears euvolemic Continue Lasix DVT prophylaxis heparin subQ
[2020-12-25] MEDS: 0.9 % Sodium Chloride Flush 3 ML SYRINGE IVFLUSH (16:22)
[2020-12-25 16:50] LABS: Glucose, Whole Blood 115 mg/dL (60-115)
[2020-12-25] MEDS: Loperamide HCl 2 MG CAPSULE PO (17:45)
[2020-12-25] MEDS: Lactated Ringers 1,000 ML 80 ML IVCONT (17:46)
[2020-12-25 20:29] LABS: Glucose, Whole Blood 159 mg/dL (60-115)
[2020-12-25] MEDS: Insulin Lispro 100 UNIT/ML 3 ML VIAL SUBCUT (20:55)
[2020-12-26] VITALS (8 sets, daily range): BP systolic 154–167; BP diastolic 65–77; PULSE 69–85; RESP 15–20; TEMP 36.4–36.7; O2SAT 95–96
[2020-12-26] MEDS: HYDROmorphone HCl 0.5 MG/0.5 ML SYRINGE IVPUSH ×4 (02:24→23:58)
[2020-12-26] MEDS: Piperacillin Sodium/Tazobactam 3.375 GM in 0.9 % Sodium Chloride 50 ML IV ×4 (04:05→21:29)
[2020-12-26] MEDS: Heparin Sodium,Porcine 5,000 UNIT/ML VIAL 5000 UNIT SUBCUT ×2 (04:06→15:53)
[2020-12-26] MEDS: ondansetron HCL 4 MG/2 ML VIAL IVPUSH (04:14)
[2020-12-26 06:15] LABS: MANUAL DIFF FLAG NO
[2020-12-26] MEDS: Omeprazole 20 MG CAPSULE.DR PO ×2 (06:16→15:53)
[2020-12-26] MEDS: Lactated Ringers 1,000 ML 80 ML IVCONT ×2 (06:17→18:13)
[2020-12-26 06:18] LABS: Basophils Percent Auto 0.3 % (0-2); Eosinophils Absolute Auto 0.3 X10*3/uL (0.0-0.4); Eosinophils Percent Auto 2.1 % (0-4); Hematocrit 31.7 % (42-52); Hemoglobin 10.3 g/dl (14.0-18.0); Imm Gran Abs Auto 0.19 X10*3/uL (0.00-0.03); Imm Gran Pct Auto 1.3 % (0.0-0.4); Mean Corpuscular HGB Conc 32.5 g/dl (31.0-36.0); Mean Corpuscular Hemoglobin 28.5 pg (27.0-33.0); Mean Corpuscular Volume 87.8 fL (80-98); Mean Platelet Volume 8.9 fL (9.4-12.4); Monocytes Absolute Auto 0.7 X10*3/uL (0.1-1.2); Monocytes Percent Auto 5.1 % (2-11); Neutrophils Absolute Auto 12.2 X10*3/uL (2.0-8.3); Neutrophils Percent Auto 84.2 % (45-73); Platelet Count 328 X10*3/uL (160-400); Red Blood Count 3.61 X10*6/uL (4.60-5.80); White Blood Count 14.5 X10*3/uL (4.8-10.8)
[2020-12-26 07:48] LABS: Glucose, Whole Blood 140 mg/dL (60-115)
[2020-12-26] MEDS: Amiodarone HCL 200 MG TABLET PO (09:26)
[2020-12-26] MEDS: Metoprolol Tartrate 25 MG TABLET PO ×2 (09:26→21:29)
[2020-12-26] MEDS: Furosemide 40 MG TABLET PO (09:27)
[2020-12-26] MEDS: gemfibroziL 600 MG TABLET PO ×2 (09:27→21:29)
[2020-12-26] MEDS: Loperamide HCl 2 MG CAPSULE PO (09:27)
[2020-12-26] MEDS: 0.9 % Sodium Chloride Flush 3 ML SYRINGE IVFLUSH ×3 (09:27→21:30)
--- NOTE | 2020-12-26 09:44 | PM.PNGS ---
Subjective Subjective Date of Service: 12/26/20 <Ashlyn Sanchez PA-C - Last Filed: 12/26/20 09:48> 12/26/20 <Navdeep Lombardo MD - Last Filed: 12/26/20 15:25> Interval history: Feeling like he is making some progress. Nausea and diarrhea improved. Was able to tolerate some solid food yesterday. Occasional nausea but resolved quickly. Less loose stools. Some RLQ pain with exam. <Ashlyn Sanchez PA-C - Last Filed: 12/26/20 09:48> Physical Exam Vital Signs: Vital Signs: Last Vital Signs Temp 97.6 F 12/26/20 07:43 Pulse 75 12/26/20 09:26 Resp 18 12/26/20 07:43 BP 167/75 H 12/26/20 09:26 Pulse Ox 95 12/26/20 07:43 Body Mass Index 29.0 <Ashlyn Sanchez PA-C - Last Filed: 12/26/20 09:48> Const: General: comfortable, no acute distress and alert <Ashlyn Sanchez PA-C - Last Filed: 12/26/20 09:48> Orientation/consciousness: patient oriented x3 <AREN Nina Last Filed: 12/26/20 09:48> Eyes: Sclerae: sclerae normal <Ashlyn Sanchez PA-C - Last Filed: 12/26/20 09:48> Cardio: Rate: regular rate <Ashlyn Sanchez PA-C - Last Filed: 12/26/20 09:48> GI: Inspection: Yes obesity <Ashlyn Sanchez PA-C - Last Filed: 12/26/20 09:48> Palpation (GI): Soft to palpation, Tenderness to palpation present (GI) (Right flank, drain site), no guarding, not rigid and No Rebound tenderness present <AREN Nina Last Filed: 12/26/20 09:48> Skin: General skin exam: no rashes or lesions noted <Ashlyn Sanchez PA-C - Last Filed: 12/26/20 09:48> Neuro: General: patient oriented x3 <Ashlyn Sanchez PA-C - Last Filed: 12/26/20 09:48> Extrem: Other: no edema <Ashlyn Sanchez PA-C - Last Filed: 12/26/20 09:48> Progress Note: A&P Assessment and plan (1) Diabetes: Status: Acute <Ashlyn Sanchez PA-C - Last Filed: 12/26/20 09:48> (2) Abdominal fluid collection: Status: Acute <Ashlyn Sanchez PA-C - Last Filed: 12/26/20 09:48> Assessment and Plan: Patient continues with mainly bloody discharge from his IR placed tube, less purulent and volume decreasing overall. Cultures of the fluid positive for mixed bowel izaiah. C diff negative, flagyl discontinued. Diarrhea improved with imodium. WBC remains around 14- will repeat CT scan today to reassess collection. Cont IV zosyn. Cont diet as tolerated. Repeat labs in AM. <Ashlyn Sanchez PA-C - Last Filed: 12/26/20 09:48> Overall patient feels improved with decreased abdominal pain and less nausea/vomiting. Diarrhea slightly improved with the Imodium. As noted above WBC remains elevated therefore CT order to follow-up on fluid collections. IR drain continues to produce dark bloody fluid which is slightly cloudy. Initial cultures revealed gut izaiah. Agree with the above assessment and plan. <Navdeep Lombardo MD - Last Filed: 12/26/20 15:25> Fall Risk Details Current Medications: Current Medications Generic Name Dose Route Start Last Admin Trade Name Gualberto PRN Reason Stop Dose Admin Amiodarone HCl 200 mg 12/23/20 09:00 12/26/20 09:26 Amiodarone Hcl 200 Mg Tablet PO 200 mg DAILY KANCHAN Administration Furosemide 40 mg 12/23/20 09:00 12/26/20 09:27 Furosemide 40 Mg Tablet PO 40 mg DAILY KANCHAN Administration Gemfibrozil 600 mg 12/22/20 21:00 12/26/20 09:27 Gemfibrozil 600 Mg Tablet PO 600 mg BID KANCHAN Administration Heparin Sodium (Porcine) 5,000 unit 12/22/20 16:00 12/26/20 04:06 Heparin Sodium,Porcine 5,000 Unit/Ml Vial SUBCUT 5,000 unit Q12H KANCHAN Administration Hydromorphone HCl 0.5 mg 12/24/20 08:00 12/26/20 02:24 Hydromorphone Hcl 0.5 Mg/0.5 Ml Syringe IVPUSH 0.5 mg Q4H PRN Administration Pain, Severe (Pain Scale 7-10) Piperacillin Sod/Tazobactam 50 mls @ 100 mls/hr 12/22/20 16:00 12/26/20 09:27 Sod 3.375 gm/ Sodium Chloride IV 100 mls/hr Q6H KANCHAN Administration Promethazine HCl 12.5 mg/ 50.5 mls @ 202 mls/hr 12/23/20 17:20 12/25/20 03:48 Sodium Chloride IV Infused Q6H PRN Infusion Nausea Lactated Ringer's 1,000 mls @ 80 mls/hr 12/25/20 16:45 12/26/20 06:17 Lr IVCONT 80 mls/hr .[id number] KANCHAN Administration Insulin Human Lispro 0 unit 12/22/20 21:00 12/26/20 08:01 Insulin Lispro 100 Unit/Ml 3 Ml Vial SUBCUT Not Given QIDACHS [facility] Protocol Loperamide HCl 2 mg 12/25/20 16:38 12/26/20 09:27 Loperamide Hcl 2 Mg Capsule PO 2 mg Q6H PRN Administration diarrhea Metoprolol Tartrate 25 mg 12/22/20 21:00 12/26/20 09:26 Metoprolol Tartrate 25 Mg Tablet PO 25 mg BID KANCHAN Administration Omeprazole 20 mg 12/22/20 16:30 12/26/20 06:16 Omeprazole 20 Mg Capsule.Dr PO 20 mg BID@0630,1630 KANCHAN Administration Ondansetron HCl 4 mg 12/22/20 14:38 12/26/20 04:14 Ondansetron Hcl 4 Mg/2 Ml Vial IVPUSH 4 mg Q8H PRN Administration Nausea and Vomiting Oxycodone HCl 5 mg 12/25/20 07:45 Oxycodone Hcl Immed Release 5 Mg Tablet PO Q4H PRN Pain, Moderate (Pain Scale 4-6 Sodium Chloride 3 ml 12/22/20 16:00 12/26/20 09:27 0.9 % Sodium Chloride Flush 3 Ml Syringe IVFLUSH 3 ml QSHIFT KANCHAN Administration <Ashlyn Laura, PA-C - Last Filed: 12/26/20 09:48> Time Spent With Patient Time: Total time spent is greater than 50% in coordination of care (as documented) at patient's floor/unit and/or counseling patient: <Ashlyn Sanchez PA-C - Last Filed: 12/26/20 09:48> Time with patient: 15 - 24 minutes <Ashlyn Sanchez PA-C - Last Filed: 12/26/20 09:48>
[2020-12-26 11:48] LABS: Glucose, Whole Blood 158 mg/dL (60-115)
[2020-12-26] MEDS: Insulin Lispro 100 UNIT/ML 3 ML VIAL SUBCUT (12:11)
--- NOTE | 2020-12-26 15:02 | PC.NURSE ---
Patient offered multiple times to get out of bed and into recliner. Declined each attempt. Stated he was going to CT scan and did not want to get up .
[2020-12-26] MEDS: iohexoL 350 MG/ML 100 ML INFUS..BTL IV (15:13)
[2020-12-26 16:22] LABS: Glucose, Whole Blood 115 mg/dL (60-115)
[2020-12-26 20:28] LABS: Glucose, Whole Blood 147 mg/dL (60-115)
[2020-12-27] MEDS: Lactated Ringers 1,000 ML 80 ML IVCONT (01:48)
[2020-12-27 03:27] VITALS: BP 165/74; PULSE 70; RESP 18; TEMP 36.9; O2SAT 98
[2020-12-27] MEDS: Heparin Sodium,Porcine 5,000 UNIT/ML VIAL 5000 UNIT SUBCUT ×2 (03:39→16:29)
[2020-12-27] MEDS: Loperamide HCl 2 MG CAPSULE PO ×2 (03:39→14:55)
[2020-12-27] MEDS: Piperacillin Sodium/Tazobactam 3.375 GM in 0.9 % Sodium Chloride 50 ML IV ×4 (03:39→21:41)
[2020-12-27] MEDS: Omeprazole 20 MG CAPSULE.DR PO ×2 (05:34→16:35)
[2020-12-27 06:03] LABS: MANUAL DIFF FLAG NO
[2020-12-27 06:24] LABS: Basophils Percent Auto 0.2 % (0-2); Eosinophils Absolute Auto 0.2 X10*3/uL (0.0-0.4); Eosinophils Percent Auto 1.8 % (0-4); Hematocrit 30.4 % (42-52); Imm Gran Abs Auto 0.24 X10*3/uL (0.00-0.03); Imm Gran Pct Auto 1.8 % (0.0-0.4); Lymphocytes Absolute Auto 0.9 X10*3/uL (1.2-4.9); Mean Corpuscular HGB Conc 32.9 g/dl (31.0-36.0); Mean Corpuscular Hemoglobin 29.2 pg (27.0-33.0); Mean Corpuscular Volume 88.9 fL (80-98); Monocytes Absolute Auto 0.6 X10*3/uL (0.1-1.2); Monocytes Percent Auto 4.8 % (2-11); Neutrophils Absolute Auto 11.3 X10*3/uL (2.0-8.3); Neutrophils Percent Auto 84.4 % (45-73); Platelet Count 305 X10*3/uL (160-400); Red Blood Count 3.42 X10*6/uL (4.60-5.80); Red Cell Distribution Width 13.1 % (11.0-16.0); White Blood Count 13.4 X10*3/uL (4.8-10.8)
[2020-12-27 06:44] LABS: Anion Gap 12 (12-20); Blood Urea Nitrogen 5 mg/dL (9-16); Calcium 7.6 mg/dL (8.4-10.2); Carbon Dioxide 28 mmol/L (22-29); Chloride 104 mmol/L (96-108); Estimated Glomerular Filt Rate > 60; Glucose Fasting 166 mg/dL (60-99); Potassium 3.1 mmol/L (3.3-5.1); Sodium 141 mmol/L (135-145)
[2020-12-27 07:46] VITALS: BP 167/80; PULSE 78; RESP 19; TEMP 36.5; O2SAT 95
--- NOTE | 2020-12-27 08:01 | PM.PNGS ---
Subjective Subjective Date of Service: 12/27/20 <Ashlyn Sanchez PA-C - Last Filed: 12/27/20 08:07> 12/27/20 <Navdeep Lombardo MD - Last Filed: 12/27/20 08:13> Interval history: Feels about the same as yesterday. Had one wave of nausea yesterday but resolved and he was able to tolerate a sandwich. Diarrhea continuing but slowing down. <Ashlyn Sanchez PA-C - Last Filed: 12/27/20 08:07> Physical Exam Vital Signs: Vital Signs: Last Vital Signs Temp 97.7 F 12/27/20 07:46 Pulse 78 12/27/20 07:46 Resp 19 12/27/20 07:46 BP 167/80 H 12/27/20 07:46 Pulse Ox 95 12/27/20 07:46 Body Mass Index 29.0 <Ashlyn Sanchez PA-C - Last Filed: 12/27/20 08:07> Const: General: comfortable, no acute distress and alert <Ashlyn Sanchez PA-C - Last Filed: 12/27/20 08:07> Orientation/consciousness: patient oriented x3 <Ashlyn Sanchez PA-C - Last Filed: 12/27/20 08:07> Eyes: Sclerae: sclerae normal <Ashlyn Sanchez PA-C - Last Filed: 12/27/20 08:07> Resp: Effort & Inspection: normal respiratory effort <Ashlyn Sanchez PA-C - Last Filed: 12/27/20 08:07> Cardio: Rate: regular rate <Ashlyn Sanchez PA-C - Last Filed: 12/27/20 08:07> GI: Other: IR drain with cloudy dark drainage <Ashlyn Sanchez PA-C - Last Filed: 12/27/20 08:07> Inspection: Yes obesity <Ashlyn Sanchez PA-C - Last Filed: 12/27/20 08:07> Palpation (GI): Soft to palpation and Tenderness to palpation present (GI) (mild tenderness around drain, right flank) <Ashlyn Sanchez PA-C - Last Filed: 12/27/20 08:07> Skin: General skin exam: no rashes or lesions noted <Ashlyn Sanchez PA-C - Last Filed: 12/27/20 08:07> Neuro: General: patient oriented x3 <Ashlyn Sanchez PA-C - Last Filed: 12/27/20 08:07> Extrem: Other: no edema <Ashlyn Sanchez PA-C - Last Filed: 12/27/20 08:07> Progress Note: A&P Assessment and plan (1) Abdominal fluid collection: Problem details: s/p IR drainage 12/23 <Ashlyn Sanchez PA-C - Last Filed: 12/27/20 08:07> Status: Acute <Ashlyn Sanchez PA-C - Last Filed: 12/27/20 08:07> Assessment and Plan: Continues to feel overall improved, nausea and diarrhea improved. VSS. Abd exam improving, some tenderness around drain site. Drain continues with dark bloody, cloudy output. Cultures of the fluid positive for mixed bowel izaiah. WBC slowly improving. Repeat CT scan showed significant improvement in RLQ collection, smaller abdominal wall collection. Cont IV zosyn. CT guided drainage of smaller collection ordered for today. <Ashlyn Sanchez PA-C - Last Filed: 12/27/20 08:07> Agree with the above assessment and plan. Patient has residual fluid collection which is amenable to CT/ultrasound-guided aspiration. Examination does reveal some firmness in the right lower quadrant possibly inflammatory changes. Will see if this changes after the 2nd fluid collection was drained. <Navdeep Lombardo MD - Last Filed: 12/27/20 08:13> (2) Diabetes: Status: Acute <Ashlyn Sanchez PA-C - Last Filed: 12/27/20 08:07> Fall Risk Details Current Medications: Current Medications Generic Name Dose Route Start Last Admin Trade Name Freq PRN Reason Stop Dose Admin Amiodarone HCl 200 mg 12/23/20 09:00 12/26/20 09:26 Amiodarone Hcl 200 Mg Tablet PO 200 mg DAILY KANCHAN Administration Furosemide 40 mg 12/23/20 09:00 12/26/20 09:27 Furosemide 40 Mg Tablet PO 40 mg DAILY KANCHAN Administration Gemfibrozil 600 mg 12/22/20 21:00 12/26/20 21:29 Gemfibrozil 600 Mg Tablet PO 600 mg BID KANCHAN Administration Heparin Sodium (Porcine) 5,000 unit 12/22/20 16:00 12/27/20 03:39 Heparin Sodium,Porcine 5,000 Unit/Ml Vial SUBCUT 5,000 unit Q12H KANCHAN Administration Hydromorphone HCl 0.5 mg 12/24/20 08:00 12/26/20 23:58 Hydromorphone Hcl 0.5 Mg/0.5 Ml Syringe IVPUSH 0.5 mg Q4H PRN Administration Pain, Severe (Pain Scale 7-10) Piperacillin Sod/Tazobactam 50 mls @ 100 mls/hr 12/22/20 16:00 12/27/20 04:43 Sod 3.375 gm/ Sodium Chloride IV Infused Q6H KANCHAN Infusion Promethazine HCl 12.5 mg/ 50.5 mls @ 202 mls/hr 12/23/20 17:20 12/27/20 05:05 Sodium Chloride IV Infused Q6H PRN Infusion Nausea Lactated Ringer's 1,000 mls @ 80 mls/hr 12/25/20 16:45 12/27/20 01:48 Lr IVCONT 80 mls/hr .[id number] KANCHAN Administration Insulin Human Lispro 0 unit 12/22/20 21:00 12/26/20 21:37 Insulin Lispro 100 Unit/Ml 3 Ml Vial SUBCUT Not Given QIDACHS [facility] Protocol Loperamide HCl 2 mg 12/25/20 16:38 12/27/20 03:39 Loperamide Hcl 2 Mg Capsule PO 2 mg Q6H PRN Administration diarrhea Metoprolol Tartrate 25 mg 12/22/20 21:00 12/26/20 21:29 Metoprolol Tartrate 25 Mg Tablet PO 25 mg BID KANCHAN Administration Omeprazole 20 mg 12/22/20 16:30 12/27/20 05:34 Omeprazole 20 Mg Capsule.Dr PO 20 mg BID@0630,1630 K[facility]AN Administration Ondansetron HCl 4 mg 12/22/20 14:38 12/26/20 04:14 Ondansetron Hcl 4 Mg/2 Ml Vial IVPUSH 4 mg Q8H PRN Administration Nausea and Vomiting Oxycodone HCl 5 mg 12/25/20 07:45 Oxycodone Hcl Immed Release 5 Mg Tablet PO Q4H PRN Pain, Moderate (Pain Scale 4-6 Sodium Chloride 3 ml 12/22/20 16:00 12/26/20 21:30 0.9 % Sodium Chloride Flush 3 Ml Syringe IVFLUSH 3 ml QSHIFT KANCHAN Administration <Ashlyn Sanchez PA-C - Last Filed: 12/27/20 08:07> Time Spent With Patient Time: Total time spent is greater than 50% in coordination of care (as documented) at patient's floor/unit and/or counseling patient: <Ashlyn Sanchez PA-C - Last Filed: 12/27/20 08:07> Time with patient: 15 - 24 minutes <Ashlyn Sanchez PA-C - Last Filed: 12/27/20 08:07>
[2020-12-27 08:33] LABS: Glucose, Whole Blood 157 mg/dL (60-115)
[2020-12-27] MEDS: Furosemide 40 MG TABLET PO (09:38)
[2020-12-27] MEDS: 0.9 % Sodium Chloride Flush 3 ML SYRINGE IVFLUSH ×2 (09:38→16:28)
[2020-12-27] MEDS: gemfibroziL 600 MG TABLET PO ×2 (09:38→21:42)
[2020-12-27] MEDS: Amiodarone HCL 200 MG TABLET PO (09:38)
[2020-12-27] MEDS: Potassium Chloride Packet 20 MEQ PACKET 40 MEQ PO (09:38)
[2020-12-27] MEDS: Metoprolol Tartrate 25 MG TABLET PO ×2 (09:38→22:22)
[2020-12-27 11:25] VITALS: BP 179/84; PULSE 70; RESP 19; TEMP 36.7; O2SAT 96
--- NOTE | 2020-12-27 11:49 | HO.PM.IMPN ---
Subjective Subjective Date of Service: 12/27/20 Interval History: Patient seen and examined at bedside patient was reporting abdominal discomfort Cardiovascular Cardiovascular: Reports dyspnea Respiratory Respiratory: Reports dyspnea Gastrointestinal Gastrointestinal: Reports abdominal pain (Right side), Reports diarrhea and Reports nausea Integumentary/Breasts Skin/Breast: Reports skin pain Physical Exam Vital Signs: Vital Signs: Last Vital Signs Temp 98.1 F 12/27/20 11:25 Pulse 70 12/27/20 11:25 Resp 19 12/27/20 11:25 BP 179/84 H 12/27/20 11:25 Pulse Ox 96 12/27/20 11:25 Body Mass Index 29.0 Const: General: no acute distress Nutritional Appearance: obese GI: Inspection: Yes incision Palpation (GI): Soft to palpation, Tenderness to palpation present (GI) in the RLQ and in the RUQ and Other GI palpation findings present ( drain in place draining bloody discharge) Auscultation: other Skin: General skin exam: erythema (Right Flank) Objective Data Current Medications Generic Name Dose Route Start Last Admin Trade Name Silvianoq PRN Reason Stop Dose Admin Amiodarone HCl 200 mg 12/23/20 09:00 12/27/20 09:38 Amiodarone Hcl 200 Mg Tablet PO 200 mg DAILY KANCHAN Administration Furosemide 40 mg 12/23/20 09:00 12/27/20 09:38 Furosemide 40 Mg Tablet PO 40 mg DAILY KANCHAN Administration Gemfibrozil 600 mg 12/22/20 21:00 12/27/20 09:38 Gemfibrozil 600 Mg Tablet PO 600 mg BID KANCHAN Administration Heparin Sodium (Porcine) 5,000 unit 12/22/20 16:00 12/27/20 03:39 Heparin Sodium,Porcine 5,000 Unit/Ml Vial SUBCUT 5,000 unit Q12H KANCHAN Administration Hydromorphone HCl 0.5 mg 12/24/20 08:00 12/26/20 23:58 Hydromorphone Hcl 0.5 Mg/0.5 Ml Syringe IVPUSH 0.5 mg Q4H PRN Administration Pain, Severe (Pain Scale 7-10) Piperacillin Sod/Tazobactam 50 mls @ 100 mls/hr 12/22/20 16:00 12/27/20 10:27 Sod 3.375 gm/ Sodium Chloride IV Infused Q6H KANCHAN Infusion Promethazine HCl 12.5 mg/ 50.5 mls @ 202 mls/hr 12/23/20 17:20 12/27/20 05:05 Sodium Chloride IV Infused Q6H PRN Infusion Nausea Lactated Ringer's 1,000 mls @ 60 mls/hr 12/25/20 16:45 12/27/20 10:28 Lr IVCONT 0 mls/hr .[id number] [facility] Infusion Insulin Human Lispro 0 unit 12/22/20 21:00 12/27/20 08:43 Insulin Lispro 100 Unit/Ml 3 Ml Vial SUBCUT Not Given QIDACHS [facility] Protocol Loperamide HCl 2 mg 12/25/20 16:38 12/27/20 03:39 Loperamide Hcl 2 Mg Capsule PO 2 mg Q6H PRN Administration diarrhea Metoprolol Tartrate 25 mg 12/22/20 21:00 12/27/20 09:38 Metoprolol Tartrate 25 Mg Tablet PO 25 mg BID [facility] Administration Omeprazole 20 mg 12/22/20 16:30 12/27/20 05:34 Omeprazole 20 Mg Capsule.Dr PO 20 mg BID@0630,1630 [facility] Administration Ondansetron HCl 4 mg 12/22/20 14:38 12/26/20 04:14 Ondansetron Hcl 4 Mg/2 Ml Vial IVPUSH 4 mg Q8H PRN Administration Nausea and Vomiting Oxycodone HCl 5 mg 12/25/20 07:45 Oxycodone Hcl Immed Release 5 Mg Tablet PO Q4H PRN Pain, Moderate (Pain Scale 4-6 Sodium Chloride 3 ml 12/22/20 16:00 12/27/20 09:38 0.9 % Sodium Chloride Flush 3 Ml Syringe IVFLUSH 3 ml QSHIFT [facility] Administration Labs CBC & Chem 7: 12/27/20 05:45 12/27/20 05:45 Microbiology Microbiology Results: Microbiology 12/22/20 09:30 Blood - Venous Blood Culture - Final No growth after 5 days. 12/22/20 09:09 Blood - Venous Blood Culture - Final No growth after 5 days. 12/23/20 10:45 Abscess Intra-abdominal Gram Stain - Final 12/23/20 10:45 Abscess Intra-abdominal Routine Culture - Final Assessment and Plan (1) Abscess, retroperitoneal: Status: Acute Assessment and Plan: . (2) Afib: Status: Inactive (3) CHF (congestive heart failure): Status: Inactive (4) Diabetes: Status: Acute (5) HTN (hypertension): Status: Inactive (6) Ischemic cardiomyopathy: Status: Inactive Assessment and Plan: 60-year-old male admitted to surgery service for anastomotic leak versus abscess, Medicine was consulted for medical management Abdominal abscess at anastomotic site status post IR guided drainage Continue IV antibiotic First growing mixed izaiah plan for IR guided drainage for small collection Management per surgery diarrhea likely secondary to antibiotic, C diff negative Diabetes mellitus Currently not on any anti diabetic medication HbA1c 9.1 Continue sliding scale insulin blood glucose consistently 150 or below likely due to poor p.o. intake if patient's blood glucose rises after po intake improves consider starting anti diabetic medication on discharge AFib Continue amiodarone and metoprolol Not on anticoagulation chads Vasc score 2 consider starting anticoagulation once surgical issue resolved Congestive heart failure appears euvolemic Continue Lasix DVT prophylaxis heparin subQ Medicine will sign off call us with question
--- NOTE | 2020-12-27 12:06 | MHC.CM.PN ---
PER REVIEW OF PROGRESS NOTES, NO PLAN FOR DISCHARGE TODAY. CASE MANAGEMENT CONTINUING TO FOLLOW.
[2020-12-27 12:10] LABS: Glucose, Whole Blood 113 mg/dL (60-115)
[2020-12-27] MEDS: HYDROmorphone HCl 0.5 MG/0.5 ML SYRINGE IVPUSH (12:42)
[2020-12-27 15:32] VITALS: BP 152/72; PULSE 81; RESP 15; TEMP 37.4; O2SAT 93
[2020-12-27 16:50] LABS: Glucose, Whole Blood 260 mg/dL (60-115)
[2020-12-27] MEDS: Insulin Lispro 100 UNIT/ML 3 ML VIAL SUBCUT ×2 (16:58→21:42)
[2020-12-27 19:22] VITALS: BP 160/69; PULSE 81; RESP 14; TEMP 37.2; O2SAT 96
[2020-12-27 21:20] LABS: Glucose, Whole Blood 185 mg/dL (60-115)
[2020-12-27] MEDS: oxyCODONE HCl Immed Release 5 MG TABLET PO (21:41)
[2020-12-27] MEDS: Zolpidem Tartrate 5 MG TABLET PO (22:22)
[2020-12-28] VITALS (11 sets, daily range): BP systolic 138–184; BP diastolic 69–88; PULSE 70–92; RESP 14–18; TEMP 36–36.9; O2SAT 93–97
[2020-12-28] MEDS: 0.9 % Sodium Chloride Flush 3 ML SYRINGE IVFLUSH ×4 (00:02→22:46)
[2020-12-28] MEDS: HYDROmorphone HCl 0.5 MG/0.5 ML SYRINGE IVPUSH ×5 (00:03→21:37)
[2020-12-28] MEDS: Heparin Sodium,Porcine 5,000 UNIT/ML VIAL 5000 UNIT SUBCUT ×2 (05:20→15:51)
[2020-12-28] MEDS: Piperacillin Sodium/Tazobactam 3.375 GM in 0.9 % Sodium Chloride 50 ML IV ×4 (05:20→21:20)
[2020-12-28] MEDS: Omeprazole 20 MG CAPSULE.DR PO ×2 (05:21→15:51)
[2020-12-28 07:14] LABS: MANUAL DIFF FLAG NO
[2020-12-28 07:26] LABS: Basophils Percent Auto 0.2 % (0-2); Eosinophils Absolute Auto 0.3 X10*3/uL (0.0-0.4); Eosinophils Percent Auto 2.5 % (0-4); Hematocrit 30.4 % (42-52); Hemoglobin 10.1 g/dl (14.0-18.0); Imm Gran Abs Auto 0.21 X10*3/uL (0.00-0.03); Imm Gran Pct Auto 1.8 % (0.0-0.4); Lymphocytes Absolute Auto 1.3 X10*3/uL (1.2-4.9); Lymphocytes Percent Auto 10.8 % (20-40); Mean Corpuscular HGB Conc 33.2 g/dl (31.0-36.0); Mean Corpuscular Hemoglobin 29.1 pg (27.0-33.0); Mean Corpuscular Volume 87.6 fL (80-98); Mean Platelet Volume 9.3 fL (9.4-12.4); Monocytes Absolute Auto 0.6 X10*3/uL (0.1-1.2); Monocytes Percent Auto 4.7 % (2-11); Neutrophils Absolute Auto 9.6 X10*3/uL (2.0-8.3); Platelet Count 302 X10*3/uL (160-400); Red Blood Count 3.47 X10*6/uL (4.60-5.80); Red Cell Distribution Width 13.5 % (11.0-16.0)
[2020-12-28 07:43] LABS: Anion Gap 11 (12-20); Blood Urea Nitrogen 6 mg/dL (9-16); Calcium 7.4 mg/dL (8.4-10.2); Carbon Dioxide 30 mmol/L (22-29); Chloride 102 mmol/L (96-108); Creatinine Clr Calc Pharmacy 166.2; Estimated Glomerular Filt Rate > 60; Glucose Fasting 156 mg/dL (60-99); Potassium 3.1 mmol/L (3.3-5.1); Sodium 140 mmol/L (135-145)
[2020-12-28 08:06] LABS: Glucose, Whole Blood 157 mg/dL (60-115)
[2020-12-28] MEDS: Insulin Lispro 100 UNIT/ML 3 ML VIAL SUBCUT ×2 (08:29→21:20)
[2020-12-28] MEDS: Amiodarone HCL 200 MG TABLET PO (08:59)
[2020-12-28] MEDS: Furosemide 40 MG TABLET PO (09:00)
[2020-12-28] MEDS: Metoprolol Tartrate 25 MG TABLET PO ×2 (09:00→21:21)
[2020-12-28] MEDS: gemfibroziL 600 MG TABLET PO ×2 (09:00→21:21)
--- NOTE | 2020-12-28 11:50 | HO.POSTANES ---
Post Anesthesia Evaluation Post Anesthesia Evaluation Vital Signs: Vital Signs Temp Pulse Resp BP Pulse Ox 12/28/20 11:34 97.3 F 77 17 184/88 H 95 12/28/20 09:00 70 138/86 12/28/20 08:59 70 138/86 12/28/20 07:30 98.3 F 79 17 179/79 H 97 12/28/20 04:00 97.2 F 75 18 170/78 H 94 12/28/20 00:00 96.8 F 70 16 157/74 H 96 Anesthesia: Local Mental Status: Awake Pain Control: Satisfactory Nausea/Vomiting: None Hydration: Adequate Anesthesia-Related Issues: No Anes. Related Issues
--- NOTE | 2020-12-28 11:55 | P.PNGS_ITS ---
Subjective Subjective Date of Service: 12/28/20 Patient reports: no new complaints Interval history: Patient reports feeling slightly improved. He has mild occasional nausea. He is tolerating regular diet and drinking plenty of liquids. Patient asked if the IV fluids can be discontinued as he has to urinate often given the amount of IV fluids and amount of liquids he is drinking. Vital signs show that there are no fever documented. Patient has occasional hypertension on documented vital signs otherwise although the vital signs are normal. Patient's drain in the right lower quadrant is draining mostly serosanguineous output. Last output was 183 prior to that was 155 prior to that was 60 mL. Physical Exam Vital Signs: Vital Signs: Last Vital Signs Temp 97.3 F 12/28/20 11:34 Pulse 77 12/28/20 11:34 Resp 17 12/28/20 11:34 BP 184/88 H 12/28/20 11:34 Pulse Ox 95 12/28/20 11:34 Body Mass Index 29.0 Const: General: cooperative, comfortable and no acute distress GI: Other: Right lower quadrant interventional radiology drain in place draining serosanguineous drainage. Abdomen is soft nondistended minimally tender to palpation in right lower quadrant around drain site. There is no rebound or guarding. There are well-healed surgical scars on abdomen. There is no erythema of the abdominal wall. Progress Note: A&P Assessment and plan (1) Abdominal fluid collection: Problem details: s/p IR drainage 12/23 Status: Acute Assessment and Plan: Patient is status post interventional radiology drainage of right lower quadrant fluid collection. Fluid collection is draining serosanguineous drainage. Patient should continue on current diet and Zosyn. Will continue to follow patient's clinical status and laboratory values. I have discontinue the patient's IV fluids as he is taking more than enough by mouth. Fall Risk Details Current Medications: Current Medications Generic Name Dose Route Start Last Admin Trade Name Freq PRN Reason Stop Dose Admin Amiodarone HCl 200 mg 12/23/20 09:00 12/28/20 08:59 Amiodarone Hcl 200 Mg Tablet PO 200 mg DAILY [facility]CHAN Administration Furosemide 40 mg 12/23/20 09:00 12/28/20 09:00 Furosemide 40 Mg Tablet PO 40 mg DAILY [facility]NA Administration Gemfibrozil 600 mg 12/22/20 21:00 12/28/20 09:00 Gemfibrozil 600 Mg Tablet PO 600 mg BID [facility] Administration Heparin Sodium (Porcine) 5,000 unit 12/22/20 16:00 12/28/20 05:20 Heparin Sodium,Porcine 5,000 Unit/Ml Vial SUBCUT 5,000 unit Q12H [facility] Administration Hydromorphone HCl 0.5 mg 12/24/20 08:00 12/28/20 09:10 Hydromorphone Hcl 0.5 Mg/0.5 Ml Syringe IVPUSH 0.5 mg Q4H PRN Administration Pain, Severe (Pain Scale 7-10) Piperacillin Sod/Tazobactam 50 mls @ 100 mls/hr 12/22/20 16:00 12/28/20 11:07 Sod 3.375 gm/ Sodium Chloride IV Infused Q6H [facility] Infusion Promethazine HCl 12.5 mg/ 50.5 mls @ 202 mls/hr 12/23/20 17:20 12/27/20 05:05 Sodium Chloride IV Infused Q6H PRN Infusion Nausea Insulin Human Lispro 0 unit 12/22/20 21:00 12/28/20 08:29 Insulin Lispro 100 Unit/Ml 3 Ml Vial SUBCUT 2 unit QIDACHS [facility] Administration Protocol Loperamide HCl 2 mg 12/25/20 16:38 12/27/20 14:55 Loperamide Hcl 2 Mg Capsule PO 2 mg Q6H PRN Administration diarrhea Metoprolol Tartrate 25 mg 12/22/20 21:00 12/28/20 09:00 Metoprolol Tartrate 25 Mg Tablet PO 25 mg BID [facility] Administration Omeprazole 20 mg 12/22/20 16:30 12/28/20 05:21 Omeprazole 20 Mg Capsule.Dr PO 20 mg BID@0630,1630 [facility] Administration Ondansetron HCl 4 mg 12/22/20 14:38 12/26/20 04:14 Ondansetron Hcl 4 Mg/2 Ml Vial IVPUSH 4 mg Q8H PRN Administration Nausea and Vomiting Oxycodone HCl 5 mg 12/25/20 07:45 12/27/20 21:41 Oxycodone Hcl Immed Release 5 Mg Tablet PO 5 mg Q4H PRN Administration Pain, Moderate (Pain Scale 4-6 Sodium Chloride 3 ml 12/22/20 16:00 02/13/21 09:00 0.9 % Sodium Chloride Flush 3 Ml Syringe IVFLUSH 3 ml QSHIFT [facility] Administration Zolpidem Tartrate 5 mg 12/27/20 15:33 12/27/20 22:22 Zolpidem Tartrate 5 Mg Tablet PO 5 mg BEDTIME PRN Administration Insomnia Time Spent With Patient Time: Total time spent is greater than 50% in coordination of care (as docum ented) at patient's floor/unit and/or counseling patient: Time with patient: less than 15 minutes
[2020-12-28 11:57] LABS: Glucose, Whole Blood 135 mg/dL (60-115)
[2020-12-28] MEDS: ondansetron HCL 4 MG/2 ML VIAL IVPUSH (12:24)
[2020-12-28] MEDS: Lactated Ringers 1,000 ML 80 ML IVCONT (12:31)
--- NOTE | 2020-12-28 13:24 | P.PNIM_ITS ---
Subjective Subjective Date of Service: 12/28/20 Interval History: Patient seen and examined at bedside patient was reporting weakness abdominal pain improving Gastrointestinal Gastrointestinal: Reports abdominal pain (Right side), Reports diarrhea and Reports nausea Integumentary/Breasts Skin/Breast: Reports skin pain Physical Exam Vital Signs: Vital Signs: Last Vital Signs Temp 97.3 F 12/28/20 11:34 Pulse 77 12/28/20 11:34 Resp 17 12/28/20 11:34 BP 184/88 H 12/28/20 11:34 Pulse Ox 95 12/28/20 11:34 Body Mass Index 29.0 Const: General: no acute distress Nutritional Appearance: obese GI: Inspection: Yes incision Palpation (GI): Soft to palpation, Tenderness to palpation present (GI) in the RLQ and in the RUQ and Other GI palpation find ings present ( drain in place draining bloody discharge) Auscultation: other Skin: General skin exam: erythema (Right Flank) Objective Data Current Medications Generic Name Dose Route Start Last Admin Trade Name Freq PRN Reason Stop Dose Admin Amiodarone HCl 200 mg 12/23/20 09:00 12/28/20 08:59 Amiodarone Hcl 200 Mg Tablet PO 200 mg DAILY [facility]CH[facility] Administration Furosemide 40 mg 12/23/20 09:00 12/28/20 09:00 Furosemide 40 Mg Tablet PO 40 mg DAILY [facility] Administration Gemfibrozil 600 mg 12/22/20 21:00 12/28/20 09:00 Gemfibrozil 600 Mg Tablet PO 600 mg BID [facility] Administration Heparin Sodium (Porcine) 5,000 unit 12/22/20 16:00 12/28/20 05:20 Heparin Sodium,Porcine 5,000 Unit/Ml Vial SUBCUT 5,000 unit Q12H [facility] Administration Hydromorphone HCl 0.5 mg 12/24/20 08:00 12/28/20 09:10 Hydromorphone Hcl 0.5 Mg/0.5 Ml Syringe IVPUSH 0.5 mg Q4H PRN Administration Pain, Severe (Pain Scale 7-10) Piperacillin Sod/Tazobactam 50 mls @ 100 mls/hr 12/22/20 16:00 12/28/20 11:07 Sod 3.375 gm/ Sodium Chloride IV Infused Q6H [facility] Infusion Promethazine HCl 12.5 mg/ 50.5 mls @ 202 mls/hr 12/23/20 17:20 12/27/20 05:05 Sodium Chloride IV Infused Q6H PRN Infusion Nausea Insulin Human Lispro 0 unit 12/22/20 21:00 12/28/20 13:22 Insulin Lispro 100 Unit/Ml 3 Ml Vial SUBCUT Not Given QIDACHS [facility] Protocol Loperamide HCl 2 mg 12/25/20 16:38 12/27/20 14:55 Loperamide Hcl 2 Mg Capsule PO 2 mg Q6H PRN Administration diarrhea Metoprolol Tartrate 25 mg 12/22/20 21:00 12/28/20 09:00 Metoprolol Tartrate 25 Mg Tablet PO 25 mg BID [facility] Administration Omeprazole 20 mg 12/22/20 16:30 12/28/20 05:21 Omeprazole 20 Mg Capsule.Dr PO 20 mg BID@0630,1630 [facility] Administration Ondansetron HCl 4 mg 12/22/20 14:38 12/28/20 12:24 Ondansetron Hcl 4 Mg/2 Ml Vial IVPUSH 4 mg Q8H PRN Administration Nausea and Vomiting Oxycodone HCl 5 mg 12/25/20 07:45 12/27/20 21:41 Oxycodone Hcl Immed Release 5 Mg Tablet PO 5 mg Q4H PRN Administration Pain, Moderate (Pain Scale 4-6 Sodium Chloride 3 ml 12/22/20 16:00 12/28/20 09:00 0.9 % Sodium Chloride Flush 3 Ml Syringe IVFLUSH 3 ml QSHIFT [facility] Administration Zolpidem Tartrate 5 mg 12/27/20 15:33 12/27/20 22:22 Zolpidem Tartrate 5 Mg Tablet PO 5 mg BEDTIME PRN Administration Insomnia Labs CBC & Chem 7: 12/28/20 06:50 12/28/20 06:50 Microbiology Microbiology Results: Microbiology 12/23/20 10:45 Abscess Intra-abdominal Direct Acid Fast Bacilli Smear - Final 12/22/20 09:30 Blood - Venous Blood Culture - Final No growth after 5 days. 12/22/20 09:09 Blood - Venous Blood Culture - Final No growth after 5 days. 12/23/20 10:45 Abscess Intra-abdominal Gram Stain - Final 12/23/20 10:45 Abscess Intra-abdominal Routine Culture - Final Assessment and Plan (1) Abscess, retroperitoneal: Status: Acute Assessment and Plan: . (2) Afib: Status: Inactive (3) CHF (congestive heart failure): Status: Inactive (4) Diabetes: Status: Acute (5) HTN (hypertension): Status: Inactive (6) Ischemic cardiomyopathy: Status: Inactive Assessment and Plan: 60-year-old male admitted to surgery service for anastomotic leak versus abscess, Medicine was consulted for medical management Abdominal abscess at anastomotic site improving status post IR guided drainage Continue IV antibiotic culture growing mixed izaiah Management per surgery diarrhea likely secondary to antibiotic, C diff negative Diabetes mellitus Currently not on any anti diabetic medication HbA1c 9.1 Continue sliding scale insulin blood glucose consistently 150 or below likely due to poor p.o. intake if patient's blood glucose rises after po intake improves consider starting anti diabetic medication on discharge AFib Continue amiodarone and metoprolol Not on anticoagulation chads Vasc score 2 consider starting anticoagulation once surgical issue resolved Congestive heart failure appears euvolemic Continue Lasix DVT prophylaxis heparin subQ Medicine will sign off call us with question
[2020-12-28] MEDS: Potassium Chloride ER 20 MEQ TAB.ER.PRT 40 MEQ PO ×2 (15:02→15:51)
[2020-12-28 16:43] LABS: Glucose, Whole Blood 136 mg/dL (60-115)
[2020-12-28 20:58] LABS: Glucose, Whole Blood 157 mg/dL (60-115)
[2020-12-28] MEDS: Zolpidem Tartrate 5 MG TABLET PO (21:38)
[2020-12-29] VITALS (7 sets, daily range): BP systolic 145–171; BP diastolic 67–81; PULSE 75–81; RESP 13–18; TEMP 36.1–36.7; O2SAT 92–96
[2020-12-29] MEDS: ondansetron HCL 4 MG/2 ML VIAL IVPUSH (01:51)
[2020-12-29] MEDS: Heparin Sodium,Porcine 5,000 UNIT/ML VIAL 5000 UNIT SUBCUT ×2 (04:41→17:29)
[2020-12-29] MEDS: Piperacillin Sodium/Tazobactam 3.375 GM in 0.9 % Sodium Chloride 50 ML IV ×2 (04:41→09:32)
[2020-12-29] MEDS: Omeprazole 20 MG CAPSULE.DR PO ×2 (05:17→17:30)
[2020-12-29] MEDS: gemfibroziL 600 MG TABLET PO ×2 (07:41→21:02)
[2020-12-29] MEDS: Furosemide 40 MG TABLET PO (07:41)
[2020-12-29] MEDS: 0.9 % Sodium Chloride Flush 3 ML SYRINGE IVFLUSH ×3 (07:41→21:09)
[2020-12-29] MEDS: Potassium Chloride ER 20 MEQ TAB.ER.PRT 40 MEQ PO (07:41)
[2020-12-29] MEDS: Amiodarone HCL 200 MG TABLET PO (07:42)
[2020-12-29] MEDS: Metoprolol Tartrate 25 MG TABLET PO ×2 (07:42→21:03)
[2020-12-29 07:53] LABS: Glucose, Whole Blood 122 mg/dL (60-115)
[2020-12-29 08:22] LABS: Anion Gap 13 (12-20); Blood Urea Nitrogen 4 mg/dL (9-16); Calcium 7.6 mg/dL (8.4-10.2); Carbon Dioxide 30 mmol/L (22-29); Chloride 99 mmol/L (96-108); Creatinine Clr Calc Pharmacy 160.6; Estimated Glomerular Filt Rate > 60; Glucose Random 119 mg/dL (60-115); Potassium 3.3 mmol/L (3.3-5.1); Sodium 139 mmol/L (135-145)
[2020-12-29] MEDS: Loperamide HCl 2 MG CAPSULE PO (10:20)
[2020-12-29 11:39] LABS: Glucose, Whole Blood 182 mg/dL (60-115)
[2020-12-29] MEDS: Insulin Lispro 100 UNIT/ML 3 ML VIAL SUBCUT ×2 (12:02→21:03)
[2020-12-29] MEDS: HYDROmorphone HCl 0.5 MG/0.5 ML SYRINGE IVPUSH ×2 (14:39→21:03)
--- NOTE | 2020-12-29 16:01 | PM.PNGS ---
Subjective Subjective Date of Service: 12/29/20 Interval history: No significant overnight events. Patient is feeling well he denies nausea today. He is tolerating regular diet. Vital signs are within normal limits. Dilaudid is helpful for intermittent pain control. Drain is decreasing in output and is still serosanguineous. Physical Exam Vital Signs: Vital Signs: Last Vital Signs Temp 98.1 F 12/29/20 15:41 Pulse 75 12/29/20 15:41 Resp 14 12/29/20 15:41 BP 156/72 H 12/29/20 15:41 Pulse Ox 93 12/29/20 15:41 Body Mass Index 29.0 Const: General: cooperative, healthy appearing, comfortable and no acute distress GI: Other: Right lower quadrant drain in place with serosanguineous output. Inspection: No distended and Yes obesity Palpation (GI): Soft to palpation, nontender, no guarding and not rigid Progress Note: A&P Assessment and plan (1) Abscess, retroperitoneal: Status: Acute Assessment and Plan: Patient doing well status post interventional radiology placed drain for retroperitoneal abscess in the right retroperitoneal space. Continue current antibiotics and diet. Repeat CBC ordered for the morning. Fall Risk Details Current Medications: Current Medications Generic Name Dose Route Start Last Admin Trade Name Freq PRN Reason Stop Dose Admin Amiodarone HCl 200 mg 12/23/20 09:00 12/29/20 07:42 Amiodarone Hcl 200 Mg Tablet PO 200 mg DAILY [facility]CHAN Administration Furosemide 40 mg 12/23/20 09:00 12/29/20 07:41 Furosemide 40 Mg Tablet PO 40 mg DAILY [facility]CH[facility] Administration Gemfibrozil 600 mg 12/22/20 21:00 12/29/20 07:41 Gemfibrozil 600 Mg Tablet PO 600 mg BID [facility] Administration Heparin Sodium (Porcine) 5,000 unit 12/22/20 16:00 12/29/20 04:41 Heparin Sodium,Porcine 5,000 Unit/Ml Vial SUBCUT 5,000 unit Q12H [facility] Administration Hydromorphone HCl 0.5 mg 12/29/20 14:25 12/29/20 14:39 Hydromorphone Hcl 0.5 Mg/0.5 Ml Syringe IVPUSH 0.5 mg Q4H PRN Administration Pain, Severe (Pain Scale 7-10) Promethazine HCl 12.5 mg/ 50.5 mls @ 202 mls/hr 12/23/20 17:20 12/27/20 05:05 Sodium Chloride IV Infused Q6H PRN Infusion Nausea Insulin Human Lispro 0 unit 12/22/20 21:00 12/29/20 12:02 Insulin Lispro 100 Unit/Ml 3 Ml Vial SUBCUT 2 unit QIDACHS [facility] Administration Protocol Loperamide HCl 2 mg 12/25/20 16:38 12/29/20 10:20 Loperamide Hcl 2 Mg Capsule PO 2 mg Q6H PRN Administration diarrhea Metoprolol Tartrate 25 mg 12/22/20 21:00 12/29/20 07:42 Metoprolol Tartrate 25 Mg Tablet PO 25 mg BID [facility]CHAN Administration Omeprazole 20 mg 12/22/20 16:30 12/29/20 05:17 Omeprazole 20 Mg Capsule.Dr PO 20 mg BID@0630,1630 [facility] Administration Ondansetron HCl 4 mg 12/22/20 14:38 12/29/20 01:51 Ondansetron Hcl 4 Mg/2 Ml Vial IVPUSH 4 mg Q8H PRN Administration Nausea and Vomiting Oxycodone HCl 5 mg 12/25/20 07:45 12/27/20 21:41 Oxycodone Hcl Immed Release 5 Mg Tablet PO 5 mg Q4H PRN Administration Pain, Moderate (Pain Scale 4-6 Potassium Chloride 40 meq 12/28/20 13:30 12/29/20 07:41 Potassium Chloride Er 20 Meq Tab.Er.Prt PO 40 meq DAILY [facility]CHAN Administration Sodium Chloride 3 ml 12/22/20 16:00 12/29/20 07:41 0.9 % Sodium Chloride Flush 3 Ml Syringe IVFLUSH 3 ml QSHIFT [facility] Administration Zolpidem Tartrate 5 mg 12/27/20 15:33 12/28/20 21:38 Zolpidem Tartrate 5 Mg Tablet PO 5 mg BEDTIME PRN Administration Insomnia Time Spent With Patient Time: Total time spent is greater than 50% in coordination of care (as documented) at patient's floor/unit and/or counseling patient: Time with patient: less than 15 minutes
[2020-12-29 17:02] LABS: Glucose, Whole Blood 133 mg/dL (60-115)
[2020-12-29 21:00] LABS: Glucose, Whole Blood 209 mg/dL (60-115)
[2020-12-29] MEDS: Zolpidem Tartrate 5 MG TABLET PO (21:06)
[2020-12-30] VITALS (7 sets, daily range): BP systolic 138–195; BP diastolic 64–86; PULSE 75–83; RESP 14–18; TEMP 36.3–36.7; O2SAT 92–96
[2020-12-30] MEDS: Heparin Sodium,Porcine 5,000 UNIT/ML VIAL 5000 UNIT SUBCUT ×2 (04:05→15:58)
[2020-12-30] MEDS: HYDROmorphone HCl 0.5 MG/0.5 ML SYRINGE IVPUSH ×2 (04:08→18:23)
[2020-12-30] MEDS: Omeprazole 20 MG CAPSULE.DR PO ×2 (06:10→15:58)
[2020-12-30 06:55] LABS: Hematocrit 31.1 % (42-52); Hemoglobin 10.1 g/dl (14.0-18.0); Mean Corpuscular HGB Conc 32.5 g/dl (31.0-36.0); Mean Corpuscular Hemoglobin 28.6 pg (27.0-33.0); Mean Corpuscular Volume 88.1 fL (80-98); Mean Platelet Volume 9.3 fL (9.4-12.4); Platelet Count 331 X10*3/uL (160-400); Red Blood Count 3.53 X10*6/uL (4.60-5.80); Red Cell Distribution Width 14.5 % (11.0-16.0); White Blood Count 12.8 X10*3/uL (4.8-10.8)
[2020-12-30 07:18] LABS: Anion Gap 12 (12-20); Blood Urea Nitrogen 4 mg/dL (9-16); Calcium 7.8 mg/dL (8.4-10.2); Carbon Dioxide 31 mmol/L (22-29); Chloride 100 mmol/L (96-108); Creatinine Clr Calc Pharmacy 163.3; Estimated Glomerular Filt Rate > 60; Glucose Random 135 mg/dL (60-115); Potassium 3.4 mmol/L (3.3-5.1); Sodium 140 mmol/L (135-145)
[2020-12-30] MEDS: Amiodarone HCL 200 MG TABLET PO (08:21)
[2020-12-30] MEDS: Metoprolol Tartrate 25 MG TABLET PO ×2 (08:21→20:58)
[2020-12-30] MEDS: ondansetron HCL 4 MG/2 ML VIAL IVPUSH (08:22)
[2020-12-30 08:23] LABS: Glucose, Whole Blood 131 mg/dL (60-115)
[2020-12-30] MEDS: gemfibroziL 600 MG TABLET PO ×2 (08:23→20:59)
[2020-12-30] MEDS: Furosemide 40 MG TABLET PO (08:23)
--- NOTE | 2020-12-30 10:48 | P.PNGS_ITS ---
Subjective Subjective Date of Service: 12/30/20 Interval history: feels well today tolerating diet says he is improving well Physical Exam Vital Signs: Vital Signs: Last Vital Signs Temp 98.1 F 12/30/20 07:45 Pulse 78 12/30/20 07:45 Resp 15 12/30/20 07:45 BP 195/86 H 12/30/20 07:45 Pulse Ox 95 12/30/20 07:45 Body Mass Index 29.0 Chemistry 12/28/20 12/29/20 12/30/20 06:50 07:12 06:13 Sodium 140 139 140 Potassium 3.1 L 3.3 3.4 Carbon Dioxide 30 H 30 H 31 H BUN 6 L 4 L 4 L Creatinine 0.58 0.60 0.59 Calcium 7.4 L 7.6 L 7.8 L Hematology 12/28/20 12/30/20 06:50 06:13 WBC 12.0 H 12.8 H Hgb 10.1 L 10.1 L Plt Count [id number] Const: General: comfortable and no acute distress Resp: Effort & Inspection: normal respiratory effort Cardio: Rate: regular rate GI: Other: drain in place - output showing old blood Palpation (GI): Soft to palpation, not firm and nontender Progress Note: A&P Assessment and plan (1) Abscess, retroperitoneal: Status: Acute Assessment and Plan: S/P CT drain and needle drainage of abdl wall abscess - only one drain in place clinically looks well has good GI function etiol of abscess unclear at this time IV abx exam benign continue current care at this time drain care repeat CBC liliya - WBC still mildly elevated Fall Risk Details Current Medications: Current Medications Generic Name Dose Route Start Last Admin Trade Name Silvianoq PRN Reason Stop Dose Admin Amiodarone HCl 200 mg 12/23/20 09:00 12/30/20 08:21 Amiodarone Hcl 200 Mg Tablet PO 200 mg DAILY [facility]CHAN Administration Furosemide 40 mg 12/23/20 09:00 12/30/20 08:23 Furosemide 40 Mg Tablet PO 40 mg DAILY [facility]CHAN Administration Gemfibrozil 600 mg 12/22/20 21:00 12/30/20 08:23 Gemfibrozil 600 Mg Tablet PO 600 mg BID [facility] Administration Heparin Sodium (Porcine) 5,000 unit 12/22/20 16:00 12/30/20 04:05 Heparin Sodium,Porcine 5,000 Unit/Ml Vial SUBCUT 5,000 unit Q12H [facility] Administration Hydromorphone HCl 0.5 mg 12/29/20 14:25 12/30/20 04:08 Hydromorphone Hcl 0.5 Mg/0.5 Ml Syringe IVPUSH 0.5 mg Q4H PRN Administration Pain, Severe (Pain Scale 7-10) Promethazine HCl 12.5 mg/ 50.5 mls @ 202 mls/hr 12/23/20 17:20 12/27/20 05:05 Sodium Chloride IV Infused Q6H PRN Infusion Nausea Insulin Human Lispro 0 unit 12/22/20 21:00 12/30/20 08:28 Insulin Lispro 100 Unit/Ml 3 Ml Vial SUBCUT Not Given QIDACHS [facility] Protocol Loperamide HCl 2 mg 12/25/20 16:38 12/29/20 10:20 Loperamide Hcl 2 Mg Capsule PO 2 mg Q6H PRN Administration diarrhea Metoprolol Tartrate 25 mg 12/22/20 21:00 12/30/20 08:21 Metoprolol Tartrate 25 Mg Tablet PO 25 mg BID [facility] Administration Omeprazole 20 mg 12/22/20 16:30 12/30/20 06:10 Omeprazole 20 Mg Capsule.Dr PO 20 mg BID@0630,1630 [facility] Administration Ondansetron HCl 4 mg 12/22/20 14:38 12/30/20 08:22 Ondansetron Hcl 4 Mg/2 Ml Vial IVPUSH 4 mg Q8H PRN Administration Nausea and Vomiting Potassium Chloride 40 meq 12/30/20 10:30 Potassium Chloride Er 20 Meq Tab.Er.Prt PO DAILY [facility] Sodium Chloride 3 ml 12/22/20 16:00 12/30/20 08:29 0.9 % Sodium Chloride Flush 3 Ml Syringe IVFLUSH Not Given QSHIFT [facility] Zolpidem Tartrate 5 mg 12/27/20 15:33 12/29/20 21:06 Zolpidem Tartrate 5 Mg Tablet PO 5 mg BEDTIME PRN Administration Insomnia Time Spent With Patient Time: Total time spent is greater than 50% in coordination of care (as documented) at patient's floor/unit and/or counseling patient: Time with patient: 15 - 24 minutes
[2020-12-30] MEDS: Potassium Chloride ER 20 MEQ TAB.ER.PRT 40 MEQ PO (11:08)
[2020-12-30 11:32] LABS: Glucose, Whole Blood 203 mg/dL (60-115)
[2020-12-30] MEDS: Insulin Lispro 100 UNIT/ML 3 ML VIAL SUBCUT ×3 (12:20→20:58)
[2020-12-30] MEDS: 0.9 % Sodium Chloride Flush 3 ML SYRINGE IVFLUSH ×2 (16:00→21:01)
[2020-12-30 16:28] LABS: Glucose, Whole Blood 194 mg/dL (60-115)
[2020-12-30 20:38] LABS: Glucose, Whole Blood 156 mg/dL (60-115)
[2020-12-31] VITALS (9 sets, daily range): BP systolic 142–167; BP diastolic 65–80; PULSE 74–79; RESP 16–19; TEMP 36.2–36.8; O2SAT 91–95
[2020-12-31] MEDS: HYDROmorphone HCl 0.5 MG/0.5 ML SYRINGE IVPUSH ×3 (00:08→23:09)
[2020-12-31] MEDS: Heparin Sodium,Porcine 5,000 UNIT/ML VIAL 5000 UNIT SUBCUT ×2 (03:59→15:47)
[2020-12-31] MEDS: Omeprazole 20 MG CAPSULE.DR PO ×2 (06:07→15:48)
[2020-12-31 06:10] LABS: Hematocrit 31.8 % (42-52); Hemoglobin 10.2 g/dl (14.0-18.0); Mean Corpuscular HGB Conc 32.1 g/dl (31.0-36.0); Mean Corpuscular Hemoglobin 28.7 pg (27.0-33.0); Mean Corpuscular Volume 89.3 fL (80-98); Mean Platelet Volume 9.3 fL (9.4-12.4); Platelet Count 316 X10*3/uL (160-400); Red Blood Count 3.56 X10*6/uL (4.60-5.80); Red Cell Distribution Width 15.1 % (11.0-16.0); White Blood Count 11.4 X10*3/uL (4.8-10.8)
[2020-12-31 06:35] LABS: Anion Gap 10 (12-20); Blood Urea Nitrogen 5 mg/dL (9-16); Carbon Dioxide 34 mmol/L (22-29); Chloride 101 mmol/L (96-108); Creatinine Clr Calc Pharmacy 148.3; Estimated Glomerular Filt Rate > 60; Glucose Random 176 mg/dL (60-115); Sodium 141 mmol/L (135-145)
[2020-12-31] MEDS: Furosemide 40 MG TABLET PO (07:55)
[2020-12-31] MEDS: Potassium Chloride ER 20 MEQ TAB.ER.PRT 40 MEQ PO (07:55)
[2020-12-31] MEDS: Metoprolol Tartrate 25 MG TABLET PO ×2 (07:55→20:42)
[2020-12-31] MEDS: Amiodarone HCL 200 MG TABLET PO (07:55)
[2020-12-31] MEDS: gemfibroziL 600 MG TABLET PO ×2 (07:55→20:42)
[2020-12-31] MEDS: 0.9 % Sodium Chloride Flush 3 ML SYRINGE IVFLUSH ×3 (07:56→20:48)
[2020-12-31 08:13] LABS: Glucose, Whole Blood 153 mg/dL (60-115)
[2020-12-31] MEDS: Piperacillin Sodium/Tazobactam 3.375 GM in 0.9 % Sodium Chloride 50 ML IV ×3 (08:55→20:42)
[2020-12-31] MEDS: Insulin Lispro 100 UNIT/ML 3 ML VIAL SUBCUT ×4 (08:56→20:42)
[2020-12-31] MEDS: ondansetron HCL 4 MG/2 ML VIAL IVPUSH (09:09)
--- NOTE | 2020-12-31 10:36 | P.PNGS_ITS ---
Subjective Subjective Date of Service: 12/31/20 <Ashlyn Sanchez PA-C - Last Filed: 12/31/20 10:41> 12/31/20 <Navdeep Lombardo MD - Last Filed: 12/31/20 15:50> Interval history: Had a fairly good weekend. Had good PO intake. C/o nausea this morning and was unable to participate with PT. Better now after antiemetics. <Ashlyn Sanchez PA-C - Last Filed: 12/31/20 10:41> Physical Exam Vital Signs: Vital Signs: Last Vital Signs Temp 98.0 F 12/31/20 07:49 Pulse 79 12/31/20 10:06 Resp 19 12/31/20 07:49 BP 157/76 H 12/31/20 10:06 Pulse Ox 94 12/31/20 10:06 Body Mass Index 29.0 <Ashlyn Sanchez PA-C - Last Filed: 12/31/20 10:41> Const: General: comfortable, no acute distress and alert <Ashlyn Sanchez PA-C - Last Filed: 12/31/20 10:41> Orientation/consciousness: patient oriented x3 <Ashlyn Sanchez PA-C - Last Filed: 12/31/20 10:41> Eyes: Sclerae: sclerae normal <Ashlyn Sanchez PA-C - Last Filed: 12/31/20 10:41> Resp: Effort & Inspection: normal respiratory effort <Ashlyn Sanchez PA-C - Last Filed: 12/31/20 10:41> Cardio: Rate: regular rate <Ashlyn Sanchez PA-C - Last Filed: 12/31/20 10:41> GI: Other: pigtail drain with sanguineous output <AREN Nina Last Filed: 12/31/20 10:41> Inspection: Yes Abdominal wall edema (of right flank, no erythema, nontender) <AREN Nina Last Filed: 12/31/20 10:41> Palpation (GI): Soft to palpation, Tenderness to palpation present (GI) (mild, surrounding drain), no guarding and not rigid <Ashlyn Sanchez PA-C - Last Filed: 12/31/20 10:41> Skin: General skin exam: no rashes or lesions noted <Ashlyn Sanchez PA-C - Last Filed: 12/31/20 10:41> Neuro: General: patient oriented x3 <Ashlyn Sanchez PA-C - Last Filed: 12/31/20 10:41> Extrem: Other: no edema <Ashlyn Sanchez PA-C - Last Filed: 12/31/20 10:41> Progress Note: A&P Assessment and plan (1) Abdominal fluid collection: Problem details: s/p IR drainage 12/23 with drain placement and US guided drainage of abdominal wall collection 12/27/20 <Ashlyn Sanchez PA-C - Last Filed: 12/31/20 10:41> Status: Acute <Ashlyn Sanchez PA-C - Last Filed: 12/31/20 10:41> Assessment and Plan: Has been doing better with nausea and PO intake until this morning. VSS. Abd exam- soft, ND, mild tenderness at drain site. Drain continues with sanguineous drainage, output decreasing. WBC slowly downtrending. Continue current care at this time- IV zosyn reordered, diet as tolerated. Strongly encouraged to get OOB and ambulate and participate in PT. Repeat CBC in am. Home in next 1-2 days if continues to do well. <Ashlyn Sanchez PA-C - Last Filed: 12/31/20 10:41> Overall patient is feeling improved, tolerating regular diet over the weekend. WBC is nearly normal. He still has some hardness in the right lower quadrant but no erythema remains. Drainage remains the same bloody fluid. Agree with the above assessment and plan. Patient agreeable to physical therapy to assist with ambulation. Will need to repeat CT of the abdomen and pelvis prior to discharge. <Navdeep Lombardo MD - Last Filed: 12/31/20 15:50> (2) Diabetes: Status: Acute <AREN Nina Last Filed: 12/31/20 10:41> Fall Risk Details Current Medications: Current Medications Generic Name Dose Route Start Last Admin Trade Name Freq PRN Reason Stop Dose Admin Amiodarone HCl 200 mg 12/23/20 09:00 12/31/20 07:55 Amiodarone Hcl 200 Mg Tablet PO 200 mg DAILY [facility] Administration Furosemide 40 mg 12/23/20 09:00 12/31/20 07:55 Furosemide 40 Mg Tablet PO 40 mg DAILY [facility] Administration Gemfibrozil 600 mg 12/22/20 21:00 12/31/20 07:55 Gemfibrozil 600 Mg Tablet PO 600 mg BID [facility] Administration Heparin Sodium (Porcine) 5,000 unit 12/22/20 16:00 12/31/20 03:59 Heparin Sodium,Porcine 5,000 Unit/Ml Vial SUBCUT 5,000 unit Q12H [facility] Administration Hydromorphone HCl 0.5 mg 12/29/20 14:25 12/31/20 00:08 Hydromorphone Hcl 0.5 Mg/0.5 Ml Syringe IVPUSH 0.5 mg Q4H PRN Administration Pain, Severe (Pain Scale 7-10) Promethazine HCl 12.5 mg/ 50.5 mls @ 202 mls/hr 12/23/20 17:20 12/27/20 05:05 Sodium Chloride IV Infused Q6H PRN Infusion Nausea Piperacillin Sod/Tazobactam 50 mls @ 100 mls/hr 12/31/20 09:00 12/31/20 09:32 Sod 3.375 gm/ Sodium Chloride IV Infused Q6H [facility] Infusion Insulin Human Lispro 0 unit 12/22/20 21:00 12/31/20 08:56 Insulin Lispro 100 Unit/Ml 3 Ml Vial SUBCUT 2 unit QIDACHS [facility] Administration Protocol Loperamide HCl 2 mg 12/25/20 16:38 12/29/20 10:20 Loperamide Hcl 2 Mg Capsule PO 2 mg Q6H PRN Administration diarrhea Metoprolol Tartrate 25 mg 12/22/20 21:00 12/31/20 07:55 Metoprolol Tartrate 25 Mg Tablet PO 25 mg BID [facility] Administration Omeprazole 20 mg 12/22/20 16:30 12/31/20 06:07 Omeprazole 20 Mg Capsule.Dr PO 20 mg BID@0630,1630 [facility] Administration Ondansetron HCl 4 mg 12/22/20 14:38 12/31/20 09:09 Ondansetron Hcl 4 Mg/2 Ml Vial IVPUSH 4 mg Q8H PRN Administration Nausea and Vomiting Potassium Chloride 40 meq 12/30/20 10:30 12/31/20 07:55 Potassium Chloride Er 20 Meq Tab.Er.Prt PO 40 meq DAILY [facility] Administration Sodium Chloride 3 ml 12/22/20 16:00 12/31/20 07:56 0.9 % Sodium Chloride Flush 3 Ml Syringe IVFLUSH 3 ml QSHIFT [facility] Administration Zolpidem Tartrate 5 mg 12/27/20 15:33 12/29/20 21:06 Zolpidem Tartrate 5 Mg Tablet PO 5 mg BEDTIME PRN Administration Insomnia <Ashlyn Sanchez PA-C - Last Filed: 12/31/20 10:41> Time Spent With Patient Time: Total time spent is greater than 50% in coordination of care (as documented) at patient's floor/unit and/or counseling patient: <Ashlyn Sanchez PA-C - Last Filed: 12/31/20 10:41> Time with patient: 15 - 24 minutes <Ashlyn Sanchez PA-C - Last Filed: 12/31/20 10:41>
[2020-12-31 14:21] LABS: Glucose, Whole Blood 155 mg/dL (60-115)
[2020-12-31 16:40] LABS: Glucose, Whole Blood 165 mg/dL (60-115)
[2020-12-31 20:28] LABS: Glucose, Whole Blood 163 mg/dL (60-115)
[2020-12-31] MEDS: Zolpidem Tartrate 5 MG TABLET PO (20:44)
[2021-01-01] VITALS (7 sets, daily range): BP systolic 139–174; BP diastolic 67–82; PULSE 71–80; RESP 16–20; TEMP 36–36.6; O2SAT 93–97
[2021-01-01] MEDS: Piperacillin Sodium/Tazobactam 3.375 GM in 0.9 % Sodium Chloride 50 ML IV (03:28)
[2021-01-01] MEDS: Heparin Sodium,Porcine 5,000 UNIT/ML VIAL 5000 UNIT SUBCUT ×2 (03:28→16:49)
[2021-01-01 05:39] LABS: MANUAL DIFF FLAG NO
[2021-01-01 05:42] LABS: Basophils Percent Auto 0.2 % (0-2); Eosinophils Absolute Auto 0.3 X10*3/uL (0.0-0.4); Hematocrit 30.3 % (42-52); Hemoglobin 10.1 g/dl (14.0-18.0); Imm Gran Abs Auto 0.07 X10*3/uL (0.00-0.03); Imm Gran Pct Auto 0.7 % (0.0-0.4); Lymphocytes Absolute Auto 0.9 X10*3/uL (1.2-4.9); Mean Corpuscular HGB Conc 33.3 g/dl (31.0-36.0); Mean Corpuscular Volume 89.9 fL (80-98); Mean Platelet Volume 9.2 fL (9.4-12.4); Monocytes Absolute Auto 0.7 X10*3/uL (0.1-1.2); Monocytes Percent Auto 6.2 % (2-11); Neutrophils Absolute Auto 8.5 X10*3/uL (2.0-8.3); Neutrophils Percent Auto 80.9 % (45-73); Platelet Count 273 X10*3/uL (160-400); Red Blood Count 3.37 X10*6/uL (4.60-5.80); Red Cell Distribution Width 15.8 % (11.0-16.0); White Blood Count 10.5 X10*3/uL (4.8-10.8)
[2021-01-01] MEDS: Omeprazole 20 MG CAPSULE.DR PO ×2 (05:51→16:50)
[2021-01-01 06:13] LABS: Anion Gap 9 (12-20); Blood Urea Nitrogen 8 mg/dL (9-16); Carbon Dioxide 34 mmol/L (22-29); Chloride 100 mmol/L (96-108); Creatinine Clr Calc Pharmacy 128.5; Estimated Glomerular Filt Rate > 60; Glucose Random 241 mg/dL (60-115); Potassium 3.7 mmol/L (3.3-5.1); Sodium 139 mmol/L (135-145)
--- NOTE | 2021-01-01 07:57 | P.PNGS_ITS ---
Subjective Subjective Date of Service: 01/01/21 <Ashlyn Sanchez PA-C - Last Filed: 01/01/21 08:01> 01/01/21 <Navdeep Lombardo MD - Last Filed: 01/01/21 08:24> Interval history: Feeling better overall. Was able to participate with PT yesterday. Denied further episodes of nausea. Tolerating food. Moving bowels. <Ashlyn Sanchez PA-C - Last Filed: 01/01/21 08:01> Physical Exam Vital Signs: Vital Signs: Last Vital Signs Temp 96.8 F 01/01/21 07:42 Pulse 80 01/01/21 07:42 Resp 19 01/01/21 07:42 BP 174/74 H 01/01/21 07:42 Pulse Ox 95 01/01/21 07:42 Body Mass Index 29.0 <Ashlyn Sanchez PA-C - Last Filed: 01/01/21 08:01> Const: General: comfortable, no acute distress and alert <Ashlyn Sanchez PA-C - Last Filed: 01/01/21 08:01> Orientation/consciousness: patient oriented x3 <Ashlyn Sanchez PA-C - Last Filed: 01/01/21 08:01> Eyes: Sclerae: sclerae normal <AREN Nina Last Filed: 01/01/21 08:01> Resp: Effort & Inspection: normal respiratory effort <Ashlyn Sanchez PA-C - Last Filed: 01/01/21 08:01> Cardio: Rate: regular rate <Ashlyn Sanchez PA-C - Last Filed: 01/01/21 08:01> GI: Inspection: Yes obesity <AREN Nina Last Filed: 0 01/01/21 08:01> Palpation (GI): Soft to palpation, Tenderness to palpation present (GI) (surrounding drain site), no guarding, not rigid and No Rebound tenderness present <AREN Nina Last Filed: 01/01/21 08:01> Percussion: Yes normal to percussion <AREN Nina Last Filed: 01/01/21 08:01> Skin: General skin exam: no rashes or lesions noted <Ashlyn Sanchez PA-C - Last Filed: 01/01/21 08:01> Neuro: General: patient oriented x3 <Ashlyn Sanchez PA-C - Last Filed: 01/01/21 08:01> Extrem: Other: no edema <Ashlyn Sanchez PA-C - Last Filed: 01/01/21 08:01> Progress Note: A&P Assessment and plan (1) Abdominal fluid collection: Problem details: s/p IR drainage 12/23 with drain placement and US guided drainage of abdominal wall collection 12/27/20 <Ashlyn Sanchez PA-C - Last Filed: 0 01/01/21 08:01> Status: Acute <Ashlyn Sanchez PA-C - Last Filed: 01/01/21 08:01> Assessment and Plan: Feeling improved, tolerating diet. VSS. Abd exam- soft, ND, mild tenderness at drain site. Drain continues with same bloody drainage, output decreasing. WBC has now normalized. Will transition to PO abx. Continue OOB/ambulation and PT. Will repeat CT scan today. Anticipate home tomorrow with VNA if CT remains improved. <Ashlyn Sanchez PA-C - Last Filed: 01/01/21 08:01> Overall the patient is much improved with decreased abdominal pain but persistent discharge from the IR drain. The drain appears bloody and less purulent. He is tolerating his diet but is requesting a non diabetic diet. Agree with the above assessment and plan including CT today and conversion to oral antibiotics. Possible discharge in a.m. tomorrow. <Navdeep Lombardo MD - Last Filed: 01/01/21 08:24> (2) Diabetes: Status: Acute <Ashlyn Sanchez PA-C - Last Filed: 01/01/21 08:01> Fall Risk Details Current Medications: Current Medications Generic Name Dose Route Start Last Admin Trade Name Freq PRN Reason Stop Dose Admin Amiodarone HCl 200 mg 12/23/20 09:00 12/31/20 07:55 Amiodarone Hcl 200 Mg Tablet PO 200 mg DAILY KANCHAN Administration Amoxicillin/Clavulanate Potassium 500 mg 01/01/21 08:00 Amoxicillin/Potassium Clav 500 Mg Tablet PO Q12H [facility] Furosemide 40 mg 12/23/20 09:00 12/31/20 07:55 Furosemide 40 Mg Tablet PO 40 mg DAILY KANCHAN Administration Gemfibrozil 600 mg 12/22/20 21:00 12/31/20 20:42 Gemfibrozil 600 Mg Tablet PO 600 mg BID KANCHAN Administration Heparin Sodium (Porcine) 5,000 unit 12/22/20 16:00 01/01/21 03:28 Heparin Sodium,Porcine 5,000 Unit/Ml Vial SUBCUT 5,000 unit Q12H [facility] Administration Promethazine HCl 12.5 mg/ 50.5 mls @ 202 mls/hr 12/23/20 17:20 12/27/20 05:05 Sodium Chloride IV Infused Q6H PRN Infusion Nausea Insulin Human Lispro 0 unit 12/22/20 21:00 12/31/20 20:42 Insulin Lispro 100 Unit/Ml 3 Ml Vial SUBCUT 2 unit QIDACHS [facility] Administration Protocol Loperamide HCl 2 mg 12/25/20 16:38 12/29/20 10:20 Loperamide Hcl 2 Mg Capsule PO 2 mg Q6H PRN Administration diarrhea Metoprolol Tartrate 25 mg 12/22/20 21:00 12/31/20 20:42 Metoprolol Tartrate 25 Mg Tablet PO 25 mg BID [facility] Administration Omeprazole 20 mg 12/22/20 16:30 01/01/21 05:51 Omeprazole 20 Mg Capsule.Dr PO 20 mg BID@0630,1630 [facility] Administration Ondansetron HCl 4 mg 12/22/20 14:38 12/31/20 09:09 Ondansetron Hcl 4 Mg/2 Ml Vial IVPUSH 4 mg Q8H PRN Administration Nausea and Vomiting Oxycodone HCl 5 mg 01/01/21 07:56 Oxycodone Hcl Immed Release 5 Mg Tablet PO Q4H PRN Pain, Moderate (Pain Scale 4-6 Oxycodone HCl 10 mg 01/01/21 07:56 Oxycodone Hcl Immed Release 5 Mg Tablet PO Q4H PRN Pain, Severe (Pain Scale 7-10) Potassium Chloride 40 meq 12/30/20 10:30 12/31/20 07:55 Potassium Chloride Er 20 Meq Tab.Er.Prt PO 40 meq DAILY KANCHAN Administration Sodium Chloride 3 ml 12/22/20 16:00 12/31/20 20:48 0.9 % Sodium Chloride Flush 3 Ml Syringe IVFLUSH 3 ml QSHIFT [facility]AN Administration Zolpidem Tartrate 5 mg 12/27/20 15:33 12/31/20 20:44 Zolpidem Tartrate 5 Mg Tablet PO 5 mg BEDTIME PRN Administration Insomnia <Ashlyn Sanchez PA-C - Last Filed: 01/01/21 08:01> Time Spent With Patient Time: Total time spent is greater than 50% in coordination of care (as documented) at patient's floor/unit and/or counseling patient: <Ashlyn Sanchez PA-C - Last Filed: 01/01/21 08:01> Time with patient: 15 - 24 minutes <Ashlyn Sanchez PA-C - Last Filed: 01/01/21 08:01>
[2021-01-01 08:23] LABS: Glucose, Whole Blood 174 mg/dL (60-115)
[2021-01-01] MEDS: Potassium Chloride ER 20 MEQ TAB.ER.PRT 40 MEQ PO (08:46)
[2021-01-01] MEDS: Insulin Lispro 100 UNIT/ML 3 ML VIAL SUBCUT ×2 (08:46→16:50)
[2021-01-01] MEDS: 0.9 % Sodium Chloride Flush 3 ML SYRINGE IVFLUSH ×3 (08:46→20:35)
[2021-01-01] MEDS: Amiodarone HCL 200 MG TABLET PO (08:47)
[2021-01-01] MEDS: Amoxicillin/Potassium Clav 500 MG TABLET PO ×2 (08:47→20:35)
[2021-01-01] MEDS: Metoprolol Tartrate 25 MG TABLET PO ×2 (08:47→20:35)
[2021-01-01] MEDS: gemfibroziL 600 MG TABLET PO ×2 (08:47→20:35)
[2021-01-01] MEDS: Furosemide 40 MG TABLET PO (08:47)
--- NOTE | 2021-01-01 10:59 | MHC.CM.PN ---
Patient has not yet been medically cleared for dc (persistent drainage from IR Drain, CT today). Goal for dc is home and CM will follow for possible need to adjust the dc plan.
[2021-01-01] MEDS: iohexoL 350 MG/ML 100 ML INFUS..BTL 85 ML IV (11:17)
[2021-01-01 11:56] LABS: Glucose, Whole Blood 103 mg/dL (60-115)
[2021-01-01 16:33] LABS: Glucose, Whole Blood 190 mg/dL (60-115)
[2021-01-01 20:23] LABS: Glucose, Whole Blood 138 mg/dL (60-115)
[2021-01-01] MEDS: Zolpidem Tartrate 5 MG TABLET PO (20:35)
[2021-01-02] VITALS (9 sets, daily range): BP systolic 149–175; BP diastolic 70–87; PULSE 80–92; RESP 18; TEMP 36–36.4; O2SAT 92–96
[2021-01-02] MEDS: Heparin Sodium,Porcine 5,000 UNIT/ML VIAL 5000 UNIT SUBCUT ×2 (03:58→16:53)
[2021-01-02] MEDS: Omeprazole 20 MG CAPSULE.DR PO ×2 (05:44→16:53)
[2021-01-02] MEDS: 0.9 % Sodium Chloride Flush 3 ML SYRINGE IVFLUSH ×3 (07:58→23:42)
[2021-01-02 08:20] LABS: Glucose, Whole Blood 148 mg/dL (60-115)
[2021-01-02] MEDS: Potassium Chloride ER 20 MEQ TAB.ER.PRT 40 MEQ PO (09:30)
[2021-01-02] MEDS: gemfibroziL 600 MG TABLET PO ×2 (09:35→21:17)
[2021-01-02] MEDS: Metoprolol Tartrate 25 MG TABLET PO ×2 (09:35→21:17)
[2021-01-02] MEDS: Amoxicillin/Potassium Clav 500 MG TABLET PO ×2 (09:35→20:06)
[2021-01-02] MEDS: Amiodarone HCL 200 MG TABLET PO (09:36)
[2021-01-02] MEDS: Furosemide 40 MG TABLET PO (09:36)
[2021-01-02 11:21] LABS: Glucose, Whole Blood 170 mg/dL (60-115)
[2021-01-02] MEDS: Insulin Lispro 100 UNIT/ML 3 ML VIAL SUBCUT ×3 (12:22→21:18)
--- NOTE | 2021-01-02 13:43 | PM.PNGS ---
Subjective Subjective Date of Service: 01/02/21 Interval history: Feeling better this morning. Pain is less, no further nausea. Diarrhea improving. Has been OOB. Thinks he'll be ready for discharge tomorrow. Physical Exam Vital Signs: Vital Signs: Last Vital Signs Temp 96.8 F 01/02/21 11:00 Pulse 90 01/02/21 11:00 Resp 18 01/02/21 11:00 BP 171/87 H 01/02/21 11:00 Pulse Ox 95 01/02/21 11:00 Body Mass Index 29.0 Const: General: comfortable, no acute distress and alert Orientation/consciousness: patient oriented x3 Eyes: Sclerae: sclerae normal Resp: Effort & Inspection: normal respiratory effort GI: Other: RLQ drain with thin bloody drainage Inspection: No distended Skin: General skin exam: no rashes or lesions noted Neuro: General: patient oriented x3 Extrem: Other: no edema Progress Note: A&P Assessment and plan (1) Abdominal fluid collection: Problem details: s/p IR drainage 12/23 with drain placement and US guided drainage of abdominal wall collection 12/27/20 Status: Acute Assessment and Plan: Repeat CT scan yesterday showed significant improvement in RLQ intraabdominal and abdominal wall collection. He is improved symptomatically and now on PO abx. VSS. Abd exam benign and drainage much thinner then previous. Will keep in place upon discharge given continued output. Plan for home tomorrow with VNA. F/u in office with Dr. Lombardo in 1 week. (2) Diabetes: Status: Acute Fall Risk Details Current Medications: Current Medications Generic Name Dose Route Start Last Admin Trade Name Freq PRN Reason Stop Dose Admin Hydrocodone Bitart/Acetaminophen 1 tab 01/01/21 14:06 Hydrocodone Bit/Acetam 5/325 Tablet PO Q4H PRN Pain, Moderate (Pain Scale 4-6 Hydrocodone Bitart/Acetaminophen 1 tab 01/01/21 14:06 01/02/21 03:58 Hydrocodone Bit/Acetam 10/325 Tablet PO 1 tab Q4H PRN Administration Pain, Severe (Pain Scale 7-10) Amiodarone HCl 200 mg 12/23/20 09:00 01/02/21 09:36 Amiodarone Hcl 200 Mg Tablet PO 200 mg DAILY KANCHAN Administration Amoxicillin/Clavulanate Potassium 500 mg 01/01/21 08:00 01/02/21 09:35 Amoxicillin/Potassium Clav 500 Mg Tablet PO 500 mg Q12H [facility] Administration Furosemide 40 mg 12/23/20 09:00 01/02/21 09:36 Furosemide 40 Mg Tablet PO 40 mg DAILY KANCHAN Administration Gemfibrozil 600 mg 12/22/20 21:00 01/02/21 09:35 Gemfibrozil 600 Mg Tablet PO 600 mg BID KANCHAN Administration Heparin Sodium (Porcine) 5,000 unit 12/22/20 16:00 01/02/21 03:58 Heparin Sodium,Porcine 5,000 Unit/Ml Vial SUBCUT 5,000 unit Q12H [facility] Administration Promethazine HCl 12.5 mg/ 50.5 mls @ 202 mls/hr 12/23/20 17:20 12/27/20 05:05 Sodium Chloride IV Infused Q6H PRN Infusion Nausea Insulin Human Lispro 0 unit 12/22/20 21:00 01/02/21 12:22 Insulin Lispro 100 Unit/Ml 3 Ml Vial SUBCUT 2 unit QIDACHS [facility]AN Administration Protocol Loperamide HCl 2 mg 12/25/20 16:38 12/29/20 10:20 Loperamide Hcl 2 Mg Capsule PO 2 mg Q6H PRN Administration diarrhea Metoprolol Tartrate 25 mg 12/22/20 21:00 01/02/21 09:35 Metoprolol Tartrate 25 Mg Tablet PO 25 mg BID KANCHAN Administration Omeprazole 20 mg 12/22/20 16:30 01/02/21 05:44 Omeprazole 20 Mg Capsule.Dr PO 20 mg BID@0630,1630 [facility] Administration Ondansetron HCl 4 mg 12/22/20 14:38 12/31/20 09:09 Ondansetron Hcl 4 Mg/2 Ml Vial IVPUSH 4 mg Q8H PRN Administration Nausea and Vomiting Potassium Chloride 40 meq 12/30/20 10:30 01/02/21 09:30 Potassium Chloride Er 20 Meq Tab.Er.Prt PO 40 meq DAILY KANCHAN Administration Sodium Chloride 3 ml 12/22/20 16:00 01/02/21 07:58 0.9 % Sodium Chloride Flush 3 Ml Syringe IVFLUSH 3 ml QSHIFT [facility]ANCHAN Administration Zolpidem Tartrate 5 mg 12/27/20 15:33 01/01/21 20:35 Zolpidem Tartrate 5 Mg Tablet PO 5 mg BEDTIME PRN Administration Insomnia Time Spent With Patient Time: Total time spent is greater than 50% in coordination of care (as documented) at patient's floor/unit and/or counseling patient: Time with patient: less than 15 minutes
--- NOTE | 2021-01-02 14:37 | MHC.CM.PN ---
[facility] WILL NEED SURGEON TO SIGN VNA ORDERS, PATIENT HAS NOT SEEN DR MALONE SINCE 2019. SURGICAL PA MADE AWARE. ALSO [facility] WILL BE ABLE TO SEE PATIENT STARTING WEDNESDAY OR WEDNESDAY LONG SURGEON WILL DO SO. CASE MANAGEMENT FOLLOWING.
[2021-01-02 16:33] LABS: Glucose, Whole Blood 190 mg/dL (60-115)
[2021-01-02 20:30] LABS: Glucose, Whole Blood 244 mg/dL (60-115)
[2021-01-02] MEDS: Zolpidem Tartrate 5 MG TABLET PO (21:17)
[2021-01-03 03:58] VITALS: BP 165/77; PULSE 87; RESP 18; TEMP 36.1; O2SAT 93
[2021-01-03] MEDS: Heparin Sodium,Porcine 5,000 UNIT/ML VIAL 5000 UNIT SUBCUT (04:11)
[2021-01-03] MEDS: Omeprazole 20 MG CAPSULE.DR PO (05:53)
--- NOTE | 2021-01-03 07:30 | P.F2F_ITS ---
Service Date Service Date: 01/03/21 Encounter Date of encounter: 01/03/21 Reasons for Services Signs and symptoms assessed: abdominal pain, PO intake, abdominal tenderness, drain output Reason for senior care: wound care (drain care) Overseeing Care: Navdeep Lombardo Homebound: Leaving the home is medically contraindicated at this time without the asist of a device and/or another person due th the listed conditions above and below. Reason homebound: weakness related to hospital stay and unable to drive Homebound supporting statement: Mr. Hammond was admitted and treated for a RLQ abdominal collection requiring IR drainage and IV abx. He still has the drain in place and is on PO antibiotics. He is weak from his hospital stay and will require VNA for drain care. Certification: Based on the above findings, I certify that this patient is confined to the home and needs intermittent senior care care, physical therapy and/or speech therapy, or continues to need occupational therapy. The patient is under my care, and I have initiated the establishment of the plan of care. The patient will be followed by a physician who will periodically review the plan of care.
[2021-01-03 07:38] VITALS: BP 159/82; PULSE 81; RESP 18; TEMP 36.4; O2SAT 91
--- NOTE | 2021-01-03 08:23 | MHC.CM.PN ---
PATIENT IS DISCHARGED HOME WITH [facility]. AGENCY IS ABLE TO START CARE WEDNESDAY OR WEDNESDAY (01/06 0R 01/07) PATIENT WILL BE ABLE OT MANAGE DRAINS PRIOR TO FIRST VISIT. SURGEON IS WRITING ORDERS FOR THE [facility], PATIENT HAS NOT SEEN HIS PCP SINCE 2018. IMM 01/03 IN CHART
[2021-01-03 08:28] LABS: Glucose, Whole Blood 186 mg/dL (60-115)
[2021-01-03] MEDS: Potassium Chloride ER 20 MEQ TAB.ER.PRT 40 MEQ PO (10:01)
[2021-01-03] MEDS: Metoprolol Tartrate 25 MG TABLET PO (10:01)
[2021-01-03] MEDS: Amoxicillin/Potassium Clav 500 MG TABLET PO (10:02)
[2021-01-03] MEDS: 0.9 % Sodium Chloride Flush 3 ML SYRINGE IVFLUSH (10:02)
[2021-01-03] MEDS: gemfibroziL 600 MG TABLET PO (10:02)
[2021-01-03] MEDS: Furosemide 40 MG TABLET PO (10:02)
[2021-01-03] MEDS: Amiodarone HCL 200 MG TABLET PO (10:02)
[2021-01-03 12:04] LABS: Glucose, Whole Blood 154 mg/dL (60-115)
--- NOTE | 2021-01-03 16:26 | P.PNGS_ITS ---
Subjective Subjective Date of Service: 01/03/21 Interval history: Patient reports some mild pain in the right lower quadrant near the drain. Findings of the CT abdomen and pelvis were reviewed with the patient which do appear improved. I recommended continuing the drainage catheter in place. He reports ambulating without difficulty and feels ready for discharge. Physical Exam Vital Signs: Vital Signs: Last Vital Signs Temp 97.6 F 01/03/21 07:38 Pulse 81 01/03/21 07:38 Resp 18 01/03/21 07:38 BP 159/82 H 01/03/21 07:38 Pulse Ox 91 L 01/03/21 07:38 Body Mass Index 29.0 Const: General: cooperative, healthy appearing, comfortable and no acute distress Resp: Other: Breathing comfortably on room air, no respiratory distress GI: Other: Soft, nondistended, IR drain in the right lower quadrant is intact draining bloody fluid, no purulent output is identified Skin: Other: Warm, dry, no erythema or rash Extrem: Other: Left BKA, right transmetatarsal amputation General: Yes no clubbing, cyanosis or edema Progress Note: A&P Assessment and plan (1) Abdominal fluid collection: Problem details: s/p IR drainage 12/23 with drain placement and US guided drainage of abdominal wall collection 12/27/20 Status: Acute Assessment and Plan: 60-year-old male with history of perforated appendicitis with large abscess now returning with abscess collection in the right lower quadrant along the abdominal wall and retroperitoneum. He underwent IR drainage with initially purulent bloody fluid but now mainly clear bloody discharge. He was treated with intravenous antibiotics and is now converted to oral antibiotics and t olerating this well. He did have some diarrhea when the IV antibiotics were initially started with this was C difficile negative. He is taking Imodium to help with the bowels. He has some abdominal pain which is well controlled with oral pain medication. Patient will be discharged home and should follow up in the office in approximately 1 week at which point we will assess the output from the IR drain and decide on tube removal. He was encouraged to call for fever, chills, nausea, vomiting, increased abdominal pain or other concerns. He expressed understanding and agrees with the plan. Time Spent With Patient Time: Total time spent is greater than 50% in coordination of care (as documented) at patient's floor/unit and/or counseling patient: Time with patient: 15 - 24 minutes
--- NOTE | 2021-01-08 09:35 | PM.DS ---
DS: Providers Provider Date of Service: 01/03/21 Date of admission: 12/22/20 14:39 Primary care physician: Connor Mcdaniel MD Consults: 12/22/20 14:45 Consult to Hospitalist Routine Consulting Provider: Hospitalist PHYSICAL THERAPY DS: Diagnosis Discharge Diagnosis (1) Abdominal fluid collection: Status: Acute Problem details: s/p IR drainage 12/23 with drain placement and US guided drainage of abdominal wall collection 12/27/20 (2) Diabetes: Status: Acute DS: Medications Discharge Medications Home Medications: Home Medications Medication Instructions Recorded Confirmed amiodarone 200 mg PO DAILY 12/22/20 12/22/20 furosemide 40 mg PO DAILY 12/22/20 12/22/20 gemfibrozil 600 mg PO BID 12/22/20 12/22/20 metoprolol tartrate 25 mg PO BID 12/22/20 12/22/20 omeprazole 20 mg PO BID 12/22/20 12/22/20 trazodone 50 mg PO BEDTIME 12/22/20 12/22/20 Previous Rx's Medication Instructions Recorded amoxicillin-pot clavulanate 1 tab PO BID #14 tab 01/01/21 [Augmentin] hydrocodone-acetaminophen 1 tab PO Q6H PRN #20 tab 01/03/21 DS: Summary Hospital Course Hospital Course: BRIEF HPI: 60 yo male with extensive PMH and hx of perforated appendix with abscess requiring IR drainage and then abdominal washout, development of enterocutaneous fistula, recurrent abscess formation, 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 He had been doing well since that time. However, he reports he developed a general unwell feeling and right sided abdominal pain about a month ago. The pain gradually progressed and acutely worsened on the day of presentation. The pain was associated with nausea and diarrhea. He presented to the ED for further evaluation where he was found to have a leukocytosis of 19.[address] of the abdomen/pelvis showed a right-sided fluid collection. HOSPITAL COURSE: The patient was admitted to the surgical service under Dr. Connor Larry. He was started on IV zosyn, IVF and made NPO. Consultation with IR for drainage and hospitalist service for management of his medical comorbidities was obtained. His care was transitioned to Dr. Lombardo. A CT guided drainage of the RLQ intraabdominal fluid collection was performed on 12/23/20- the fluid was mostly old blood and was cultured. A pigtail drain was left in place. His WBC gradually began to improve following this. He was advanced to a clear liquid and then solid diet. PT was consulted for disposition planning. He began to feel improved but struggled with nausea and this limited his rehabilitation efforts. F/u CT scan was obtained to reassess the cavity which showed improvement of the original intraadominal fluid collection but revealed an abdominal wall fluid collection which was drained using US guidance on 12/27/20. His WBC eventually normalized. F/u CT scan demonstrated significant improvement of the RLQ fluid collection and resolution of the abdominal wall collection. The fluid collection cultures came back positive for mixed bowel izaiah. He was transitioned to PO Augmentin. On the day of discharge, he was tolerating a solid diet without N/V, he had good GI fxn, he was getting OOB. The drain continued with old bloody output and was therefore kept in place. He was discharged to home on 01/03/21 in stable condition with VNA services for drain care. He is to follow up with Dr. Lombardo in 1 week in the office. He was discharged to home on a course of PO Augmentin. During his stay his SBP remained elevated around the 150s. His POCs were also elevated. All of his antihyperglycemics had been discontinued the previous year following his significant weight loss. He has not seen his PCP in over a year. He was instructed to f/u upon discharge regarding his BP and diabetes mellitus management. Time Spent with Patient Time attestation: Total time spent providing and/or coordinating discharge services: Discharge coordination time: Greater than 30 minutes Physical Exam Vital Signs: Vital Signs: Last Vital Signs Temp 97.6 F 01/03/21 07:38 Pulse 81 01/03/21 07:38 Resp 18 01/03/21 07:38 BP 159/82 H 01/03/21 07:38 Pulse Ox 91 L 01/03/21 07:38 Body Mass Index 29.0 Const: General: comfortable, no acute distress and alert Orientation/consciousness: patient oriented x3 Eyes: Sclerae: sclerae normal Resp: Effort & Inspection: normal respiratory effort Cardio: Rate: regular rate GI: Other: pigtail drain with old bloody drainage Inspection: No distended and Yes obesity Palpation (GI): Soft to palpation, Tenderness to palpation present (GI) (mild, surrounding drain), no guarding, not rigid and No Rebound tenderness present Percussion: Yes normal to percussion Skin: Other: warm and dry General skin exam: no rashes or lesions noted Neuro: General: patient oriented x3 Extrem: General: Yes no clubbing, cyanosis or edema Discharge Plan Discharge Patient Disposition: Home Health Service Referrals: [facility] [Outside] Navdeep Lombardo MD [Physician] - 1 Week Connor Mcdaniel MD [Primary Care Provider] - 1 Week (A1c 9.7%; SBP ranging from 150s-170s while admitted.) Discharge Medications: New amoxicillin-pot clavulanate [Augmentin] 500-125 mg tablet 1 tab PO BID Qty: 14 RF: 0 hydrocodone-acetaminophen 5-325 mg Tablet 1 tab PO Q6H PRN (Reason: abdominal pain) Qty: 20 RF: 0 Continued amiodarone 200 mg PO DAILY RF: 0 furosemide 40 mg PO DAILY RF: 0 gemfibrozil 600 mg PO BID RF: 0 metoprolol tartrate 25 mg PO BID RF: 0 omeprazole 20 mg PO BID RF: 0 trazodone 50 mg PO BEDTIME RF: 0 Discharge Orders: Discharge Order (Routine); Ordered 01/03/21 Ordered By: Navdeep Lombardo Diet: diabetic diet Activity on Discharge: As tolerated Stand Alone Forms: Patient Portal Discharge page Activity Restrictions/Additional Instructions: Drain care: empty BID and record output Care Plan Goals: Resolution of RLQ collection Health Concerns: RLQ fluid collection, diaebetes mellitus, hypertension Plan of Treatment: IR drainage, antibiotics; discharge to home with VNA services and f/u in office with Dr. Lombardo. F/u with PCP regarding diabetes mellitus and hypertension. Discharge Date/Time: 01/03/21 12:51
== END 2021-01-03 12:51 | disposition home health service (06) | DRG 358 ==
LOC: HO.ED 12:52 → HO.EDOVER 15:03 → HO.S3 20:00
PROVIDERS: Internal Medicine; Physician Assistant Surgical; Radiology Diagnostic Radiology; Surgery; Admitting Provider Surgery; Emergency Provider Emergency Medicine; PCP Internal Medicine; Visit Provider Surgery
PROC: 0W9H30Z Drainage of Retroperitoneum with Drainage Device, Percutaneous Approach (ICD-10-PCS; principal; 2020-12-23 13:00)
PROC: 0W9H4ZZ Drainage of Retroperitoneum, Percutaneous Endoscopic Approach (ICD-10-PCS; principal; 2020-12-27 12:10)
DX: K68.19 Other retroperitoneal abscess (principal); I48.91 Unspecified atrial fibrillation; I11.0 Hypertensive heart disease with heart failure; I25.10 Atherosclerotic heart disease of native coronary artery without angina pectoris; E11.9 Type 2 diabetes mellitus without complications; I25.5 Ischemic cardiomyopathy; I50.9 Heart failure, unspecified; Z23 Encounter for immunization; Z20.822 Contact with and (suspected) exposure to COVID-19
CPT/HCPCS: 10030; 36415; 49406; 71045; 71275; 74177; 80048; 80076; 82947; 83036; 83605; 83690; 83735; 83880; 84484; 85025; 85027; 85379; 85610; 85730; 87040; 87071; 87116; 87205; 87324; 87449; 87635; 90686; 93005; 96365; 96367; 96375; 96376; 97110; 97116; 97163; 99284; 99285; C1729; J1170; J2270; J2405; J2543; J3475; Q4186; Q9967

== ENCOUNTER 2021-01-27 13:12 | Outpatient (REF) | payer MEDICARE, SELFPAY | END 2021-01-27 13:13 | disposition home or self-care (01) | LOC: HO.LNP 13:12 | PROVIDERS: PCP Internal Medicine; Visit Provider Surgery | DX: L02.219 Cutaneous abscess of trunk, unspecified (principal); R18.8 Other ascites; Z98.890 Other specified postprocedural states | CPT/HCPCS: 10061; 87071; 87077; 87186; 87205; 99212 ==

== ENCOUNTER → 2021-04-01 10:37 | Outpatient (BNVA) | payer MEDICARE, SELFPAY | PROVIDERS: PCP Internal Medicine; Referring Provider Internal Medicine; Visit Provider Surgery ==

== ENCOUNTER 2021-04-01 11:20 | Outpatient (REF) | payer MEDICARE, SELFPAY ==
--- NOTE | ~2021-04-01 | US_ITS ---
EXAMINATION: US VENOUS ULTRASOUND WITH DOPPLER LOWER EXTREMITY, BILATERAL CLINICAL INFORMATION: Bilateral lower extremity swelling. COMPARISON: None TECHNIQUE: Ultrasound of the deep veins is performed from the hip to the calf with compression sonography and color and pulse Doppler assessment. Spectral analysis with color-flow imaging is performed. FINDINGS: RIGHT: There is normal venous compression and respiratory variation and augmented flow. The visualized common femoral vein, superficial femoral vein, profunda femoral vein, popliteal vein, and the trifurcation region shows no evidence of deep venous thrombosis. There is no significant popliteal fossa cyst. There is moderate pitting edema in the arms. LEFT: There is normal venous compression and respiratory variation and augmented flow. The visualized common femoral vein, superficial femoral vein, profunda femoral vein and proximal popliteal vein shows no evidence of deep venous thrombosis. Patient has below knee amputation. There is no significant popliteal fossa cyst. There is moderate pitting edema in the arms If the patient's symptoms persist, followup ultrasound in 5 days 7 days might be of value to exclude proximal propagation from a non-visualized calf vein. US/US venous duplex LE BI IMPRESSION: No DVT demonstrated in the bilateral lower extremity.
== END 2021-04-01 11:21 | disposition home or self-care (01) ==
LOC: HO.US 11:20
PROVIDERS: PCP Internal Medicine; Visit Provider Surgery
DX: Z13.89 Encounter for screening for other disorder (principal)
CPT/HCPCS: 93970; 99212

== ENCOUNTER 2021-04-02 09:58 | Inpatient (IN) | payer MEDICARE, SELFPAY ==
[2021-04-02] VITALS (8 sets, daily range): BP systolic 136–154; BP diastolic 72–92; PULSE 86–113; RESP 15–20; TEMP 36.5–37.4; O2SAT 91–97; BMI 24.5
--- NOTE | ~2021-04-02 | CT_ITS ---
EXAMINATION: CT ABDOMEN AND PELVIS WITH CONTRAST CLINICAL INFORMATION: Followup abscess right lower quadrant. COMPARISON: CT scan abdomen/pelvis 01/01/2021 TECHNIQUE: Multidetector volumetric images were obtained from the superior aspect of the liver through the pubic symphysis following administration 85 mL of Omnipaque 350 intravenous contrast. Sagittal and coronal reformatted images were obtained on the technologist's workstation. Oral contrast: No. This CT examination was performed using dose optimization techniques as appropriate, variously including the following: *Automated exposure control *Adjustment of mA and/or kV according to patient size (this includes techniques or standardized protocols for targeted exams where dose is matched to indication/reason for exam; i.e. extremities or head) *Use of iterative reconstruction technique DLP: 851 mGy-cm FINDINGS: LUNG BASES: Dependent atelectasis at both lung bases. There are bilateral pleural effusions. The volume is moderate on the left and small on the right. Heart size is normal. There are coronary artery calcifications. No pericardial effusion. LIVER, GALLBLADDER, AND BILIARY TREE: Diffuse low attenuation of liver parenchyma due to fatty change. No focal liver lesions or intrahepatic bile duct dilatation. The right lobe of liver measures 22 cm superior inferior, mild hepatomegaly. Status post-cholecystectomy. PANCREAS: Unremarkable. SPLEEN: Unremarkable. ADRENAL GLANDS: Stable left adrenal nodule measuring 2.4 cm. Macroscopic fat within the nodule. KIDNEYS AND URETERS: The kidneys are normal in size, shape, and attenuation. No hydronephrosis, hydroureter, or calculi seen. No perinephric stranding. Stable partially exophytic cyst at the posterior mid lower pole right kidney measuring 4 cm. No follow-up imaging is recommended for simple renal cyst. BLADDER: Unremarkable. GASTROINTESTINAL TRACT: There are scattered diverticula of the colon. There is no diverticulitis. There is no bowel wall thickening/edema. There is no bowel obstruction. There is a moderate volume of stool in the colon. The appendix is nonvisualized. The small bowel loops are unremarkable. The stomach is normal. There is no hiatal hernia. MESENTERY: Small volume of free fluid in the pelvis. This is simple fluid. Density measurement of 3 Hounsfield units. No free air or abscess. ABDOMINAL WALL: There is moderate anasarca in the subcutaneous tissue. The previously seen fluid collection involving the right lateral abdominal wall has resolved. The previously seen drain in this fluid collection has been removed. Stable postsurgical changes of scar at the midline abdomen and pelvis. No diastasis or herniation of the abdominal wall. Small surgical clips or sutures at the low mid anterior wall of the pelvis. LYMPH NODES: Normal. VASCULAR: Atherosclerotic vascular calcifications of the abdomen and pelvis. There is no aneurysm of the aorta. PELVIC VISCERA: Unremarkable. OSSEOUS STRUCTURES: Multilevel degenerative spondylosis of the spine. CT/CT abdomen pelvis w con IMPRESSION: 1. The previously seen abscess involving the right-sided abdominal wall musculature has resolved. No new fluid collection. 2. Generalized anasarca. Small volume of free fluid in the pelvis. 3. Bilateral pleural effusions with bibasilar atelectasis.
--- NOTE | ~2021-04-02 | XR_ITS ---
EXAMINATION: XR CHEST CLINICAL INFORMATION: Cough, phlegm. COMPARISON: 04/02/2021 portable chest radiograph and chest CT dated 04/03/2021. TECHNIQUE: Frontal view of the chest was obtained. FINDINGS: There has been mild interval decrease in opacities in the right lower lung. The left lung is clear. The heart and mediastinal structures are unremarkable. XR/XR chest 1V IMPRESSION: Interval improvement in right lower lung opacities suggesting improving pleural effusion and associated atelectasis. The left pleural effusion is not visualized.
--- NOTE | ~2021-04-02 | XR_ITS ---
EXAMINATION: XR CHEST CLINICAL INFORMATION: Cough. COMPARISON: None TECHNIQUE: Frontal view of the chest was obtained. FINDINGS: The lungs are hypoexpanded with patchy opacity right lower lobe and mid lung likely atelectasis and/or scarring. There is mild elevation of right hemidiaphragm. The right upper lung and the left lung remains expanded and clear. The heart size is borderline enlarged. Pulmonary vascularity is normal. No gross bony abnormality seen. XR/XR chest 1V IMPRESSION: Patchy opacity/atelectasis right lower lobe and right middle lobe. The findings have progressed since chest x-ray 12/22/2020.
--- NOTE | ~2021-04-02 | CT_ITS ---
EXAMINATION: CT CHEST WITHOUT CONTRAST CLINICAL INFORMATION: Cough, patchy opacities/atelectasis right lower zone on recent chest x-ray. COMPARISON: Chest radiographs 04/02/2021, 12/22/2020, CT abdomen 01/01/2021, CTA chest 12/22/2020 and 04/14/2019. TECHNIQUE: Multidetector volumetric CT imaging of the chest is performed without intravenous contrast. Axial MIP volume rendering provided. Sagittal and coronal reformatted images were obtained. This CT examination was performed using dose optimization techniques as appropriate, variously including the following: *Automated exposure control *Adjustment of mA and/or kV according to patient size (this includes techniques or standardized protocols for targeted exams where dose is matched to indication/reason for exam; i.e. extremities or head) *Use of iterative reconstruction technique DLP: 322 mGy-cm FINDINGS: LUNGS: The central airways are clear and there is no endobronchial lesion or bronchiectasis. There is bilateral lower zone bronchiolar wall thickening. There is atelectasis left posterior base adjacent to moderate effusion. No lobar or segmental airspace consolidation. Right lung has vague spiculated opacity lateral upper lobe 1.3 cm size series 03/03, more conspicuous on current exam. No cavitation. There is again scattered right subsegmental atelectasis and/or subsegmental subpleural consolidation borderline increased. This resides adjacent to stable small right effusion and smooth right pleural thickening. MEDIASTINUM: There is mild mediastinal adenopathy increased from prior study 12/22/2020. Right precarinal node measures 1.4 cm short axis compared with prior exam 0.6 cm. Left para-aortic node left measures 0.9 cm compared with prior measurement 0.5 cm. No pericardial effusion. Thoracic aorta normal in caliber. PLEURA: Small to moderate left effusion new from prior CT 12/22/2020. There is smaller right effusion adjacent to stable smooth pleural thickening. There is some increased fluid tracking in the right fissures. AXILLA: No lymphadenopathy. UPPER ABDOMEN: Splenomegaly again noted and left adrenal mass under 3 cm. Prior cholecystectomy. OSSEOUS STRUCTURES: No acute bony abnormality. CT/CT chest wo con IMPRESSION: 1. New small to moderate left effusion with atelectasis left posterior base since prior CT 12/22/2020. 2. Increased fluid and right fissures. Fluid right base and smooth right pleural thickening stable. 3. Interval spiculated opacity lateral right upper lobe approximately 1.3 cm. 4. Mild increased mediastinal adenopathy.
--- NOTE | 2021-04-02 10:23 | ECG_ITS ---
Test Reason : EXTREMITY PAIN Blood Pressure : / mmHG Vent. Rate : 082 BPM Atrial Rate : 082 BPM P-R Int : 152 ms QRS Dur : 132 ms QT Int : 412 ms P-R-T Axes : 027 -49 089 degrees QTc Int : 481 ms Normal sinus rhythm Left axis deviation Non-specific intra-ventricular conduction block Inferior infarct (cited on or before 19-MAR-2019) Possible Anterolateral infarct (cited on or before 19-MAR-2019) Abnormal ECG When compared with ECG of 22-DEC-2020 08:42, Serial changes of Anterior infarct Present Referred By: Generic ED Physician Electronically Signed By:CYDNEY HERNANDEZ MD
[2021-04-02 11:49] LABS: MANUAL DIFF FLAG NO
[2021-04-02 11:51] LABS: Basophils Percent Auto 0.2 % (0-2); Eosinophils Absolute Auto 0.2 X10*3/uL (0.0-0.4); Eosinophils Percent Auto 1.8 % (0-4); Hematocrit 44.4 % (42-52); Hemoglobin 14.4 g/dl (14.0-18.0); Imm Gran Abs Auto 0.04 X10*3/uL (0.00-0.03); Imm Gran Pct Auto 0.4 % (0.0-0.4); Lymphocytes Absolute Auto 1.1 X10*3/uL (1.2-4.9); Mean Corpuscular HGB Conc 32.4 g/dl (31.0-36.0); Mean Corpuscular Volume 86.4 fL (80-98); Mean Platelet Volume 10.4 fL (9.4-12.4); Monocytes Absolute Auto 0.7 X10*3/uL (0.1-1.2); Monocytes Percent Auto 6.6 % (2-11); Neutrophils Absolute Auto 9.1 X10*3/uL (2.0-8.3); Platelet Count 277 X10*3/uL (160-400); Red Blood Count 5.14 X10*6/uL (4.60-5.80); Red Cell Distribution Width 14.2 % (11.0-16.0); White Blood Count 11.2 X10*3/uL (4.8-10.8)
[2021-04-02 12:15] LABS: Anion Gap 15 (12-20); Blood Urea Nitrogen 19 mg/dL (9-16); Calcium 8.3 mg/dL (8.4-10.2); Carbon Dioxide 21 mmol/L (22-29); Chloride 104 mmol/L (96-108); Estimated Glomerular Filt Rate > 60; Glucose Random 253 mg/dL (60-115); Potassium 3.7 mmol/L (3.3-5.1); Sodium 136 mmol/L (135-145)
[2021-04-02 12:21] LABS: B Type Natriuretic Peptide 3301 pg/mL (<100); Troponin-I High Sensitivity 15.2 ng/L (<3.5-35.0)
--- NOTE | 2021-04-02 12:55 | ED_ITS ---
HPI - General Adult General Chief complaint: Extremity Problem Stated complaint: swollen legs, difficulty breathing Time Seen by Provider: 04/02/21 12:02 Source: patient Mode of arrival: wheelchair Limitations: no limitations History of Present Illness HPI narrative: 61-year-old male with a past medical history of AFib, congestive heart failure on 40mg lasix daily, CVA, diabetes, CAD, hypertension, ischemic cardiomyopathy last EF 30-35%, perf appendicitis w/ abscess s/p right hemicolectomy 2018 s/p recollection of fluid with admission 12/2020 here with lower extremity swelling, shortness of breath for the last week. Patient denies weight gain, productive cough, fevers, chills, chest pain. He tells me normally he can walk without any shortness of breath however the last week he can now only walk approximately 8-10 steps without feeling very out of breath. He has been compliant with his Lasix. No weight gain Related Data Home Medications Medication Instructions Recorded Confirmed amiodarone 1 tab PO DAILY 04/02/21 04/02/21 furosemide 1 tab PO DAILY 04/02/21 04/02/21 gemfibrozil 1 tab PO BID 04/02/21 04/02/21 metoprolol tartrate 1 tab PO BID 04/02/21 04/02/21 multivitamin 1 tab PO DAILY 04/02/21 04/02/21 omeprazole 1 cap PO BID 04/02/21 04/02/21 trazodone 1 tab PO BEDTIME 04/02/21 04/02/21 Allergies Allergy/AdvReac Type Severity Reaction Status Date / Time vancomycin [VANCOMYCIN] Allergy Severe STOMACH Verified 04/02/21 10:22 UPSET, ill Review of Systems Review of Systems: Yes all other systems are reviewed and are negative Constitutional: Constitutional: Reports no additional constitutional complaints, Denies body ache(s), Denies chills, Denies fever(s), Denies headache(s) and Denies weakness Eyes: Eyes: Reports no additional eye complaints and Denies change in vision ENT: Reports system reviewed and no additional complaints, except as documented, Denies dizziness, Denies headache(s), Denies nasal congestion, Denies nasal discharge and Denies neck pain Cardiovascular: Cardiovascular: Reports no additional cardiovascular complaints, Denies chest pain, Reports leg edema and Reports dyspnea Respiratory: Respiratory: Reports no additional respiratory complaints, Denies cough and Reports dyspnea Gastrointestinal: Gastrointestinal: Reports no additional gastrointestinal complaints, Denies abdominal pain, Denies diarrhea, Denies nausea and Denies vomiting Genitourinary: Genitourinary: Denies urinary incontinence Musculoskeletal: Musculoskeletal: Reports no additional musculoskeletal complaints, Denies back pain, Denies arthralgias, Denies joint swelling, Denies neck pain, Denies numbness and Denies tingling Integumentary/Breasts: Skin/Breast: Reports system reviewed and no additional complaints, except as docu and Denies rash Neurologic: Reports system reviewed and no additional complaints, except as documented, Denies Abnormal speech present, Denies dizziness, Denies headache(s), Denies numbness, Denies tingling and Denies weakness PMFSH Past Medical History Attestation statement: The following information was validated with the patient. Source: old records reviewed and nursing notes reviewed Medical History Acute appendicitis Afib CHF (congestive heart failure) CVA (cerebral vascular accident) Diabetes Heart disease History of left below knee amputation HTN (hypertension) Ischemic cardiomyopathy Surgical History H/O exploratory laparotomy H/O right hemicolectomy History of transmetatarsal amputation of right foot Hx of cholecystectomy Social History Social History Household Members Other:: Mother- cares for her Housing: House Alcohol intake: never Smoking Status: Light tobacco smoker Tobacco Type: Cigar Use of substances other than those prescribed or required for medical reasons: No Advance Directives: No Advance Directives Information Provided: No Physical Exam Vital Signs: Vital Signs: Last Vital Signs Temp 97.8 F 04/02/21 10:19 Pulse 87 04/02/21 14:57 Resp 16 04/02/21 14:57 BP 147/81 H 04/02/21 14:57 Pulse Ox 93 04/02/21 14:57 Body Mass Index 24.5 Const: General: cooperative, healthy appearing, comfortable and no acute distress Orientation/consciousness: patient oriented x3 Limitations: no limitations HENMT: Head: Yes normal to inspection Ears: hearing grossly normal bilaterally General nose exam: Normal external nose present Face and sinus: Yes normal facial exam Mouth: Normal oral and palatal mucosa present Throat: Yes posterior oropharynx normal Eyes: General: appearance normal, both eyes and all related structures Pupils: Equal, round and reactive pupils present Neck: Neck: Yes normal visual inspection Chest: Chest palpation & inspection: normal inspection of the chest Resp: Other: Crackles in the bases bilaterally Effort & Inspection: normal respiratory effort Cardio: Rate: regular rate Rhythm: regular rhythm Peripheral pulses: Peripheral pulses 2+ throughout GI: Other: Previous surgical incision sites with no tenderness Inspection: Yes normal to inspection Palpation (GI): Soft to palpation and nontender Auscultation: normal bowel sounds Back/Spine/Pelvis: Thoracic/Lumbar Spine: thoracic and lumbar spine normal to inspection Skin: General skin exam: no rashes or lesions noted Neuro: General: patient oriented x3, no focal motor deficits and normal sensation to monofilament Cranial nerves: Yes Equal, round and reactive pupils present Cognition (Neuro): normal cognition Speech: No Abnormal speech present Gait exam (Neuro): Normal gait present Motor exam (neuro): 5/5 motor strength present throughout Extrem: Other: Patient is a left AKA. Right leg is swollen extending up to the thigh. There is mild swelling of the left thigh as well. no testicular swelling General: Yes normal to inspection Course Course Course Narrative: 59-year-old male with a past medical history of congestive heart failure, ischemic cardiomyopathy with a last known EF of 30-35% here with increasing shortness of breath and lower extremity swelling for the last week. Will need x-ray, EKG, labs. 1252-x-ray concerning for a right-sided pneumonia. At this time infection is suspected. Blood cultures and lactic acid ordered. Antibiotics ordered. Labs show a mildly elevated troponin. Will plan for repeat 3 hour troponin. BNP is elevated 3301 from previous 12/22/2020. Patient was ambulated approximately 10 steps and was severely tachypneic with a room air saturation of 90%. Will require admission. 40 mg of IV Lasix ordered. Will discuss with medicine team [id number]-Discussed with Dr Barillas who accepted admission. Medical Decision Making Medical Records Medical records reviewed: Yes I reviewed the patient's medical records. Lab Data Lab results reviewed: Yes I reviewed the patient's lab results. Result diagrams: 04/02/21 11:42 04/02/21 11:42 Labs: Lab Results 04/02/21 04/02/21 04/02/21 Range/Units 11:42 11:42 11:42 WBC 11.2 H (4.8-10.8) X10*3/uL RBC 5.14 D (4.60-5.80) X10*6/uL Hgb 14.4 D (14.0-18.0) g/dl Hct 44.4 D (42-52) % MCV 86.4 (80-98) fL MCH 28.0 (27.0-33.0) pg MCHC 32.4 (31.0-36.0) g/dl RDW 14.2 (11.0-16.0) % Plt Count 277 (160-400) X10*3/uL MPV 10.4 (9.4-12.4) fL Immature Gran % (Auto) 0.4 (0.0-0.4) % Neut % (Auto) 81.0 H (45-73) % Lymph % (Auto) 10.0 L (20-40) % [place] % (Auto) 6.6 (2-11) % Eos % (Auto) 1.8 (0-4) % Baso % (Auto) 0.2 (0-2) % Lymph # (Auto) 1.1 L (1.2-4.9) X10*3/uL [place] # (Auto) 0.7 (0.1-1.2) X10*3/uL Eos # (Auto) 0.2 (0.0-0.4) X10*3/uL Baso # (Auto) 0.0 (0.0-0.2) X10*3/uL Abs Immat Gran (auto) 0.04 H (0.00-0.03) X10*3/uL Absolute Neuts (auto) 9.1 H (2.0-8.3) X10*3/uL Absolute Nucleated RBC 0.000 (0.0-0.012) X10*3/uL Nucleated RBC % (auto) 0.0 (0.0-0.2) /100WBC Hold Blue Top SEE NOTE Sodium 136 (135-145) mmol/L Potassium 3.7 (3.3-5.1) mmol/L Chloride 104 (96-108) mmol/L Carbon Dioxide 21 L (22-29) mmol/L Anion Gap 15 (12-20) BUN 19 H D (9-16) mg/dL Creatinine 0.81 (0.5-1.4) mg/dL Estim Creat Clear Calc 113.0 Estimated GFR > 60 Random Glucose 253 H (60-115) mg/dL Lactic Acid (0.5-2.0) mmol/L Calcium 8.3 L (8.4-10.2) mg/dL Troponin I High Sens (<3.5-35.0) ng/L B-Natriuretic Peptide (<100) pg/mL COVID-19 ([facility]OLINE) (Negative) COVID-19 Clin Com 04/02/21 04/02/21 04/02/21 Range/Units 11:42 13:26 13:26 WBC (4.8-10.8) X10*3/uL RBC (4.60-5.80) X10*6/uL Hgb (14.0-18.0) g/dl Hct (42-52) % MCV (80-98) fL MCH (27.0-33.0) pg MCHC (31.0-36.0) g/dl RDW (11.0-16.0) % Plt Count (160-400) X10*3/uL MPV (9.4-12.4) fL Immature Gran % (Auto) (0.0-0.4) % Neut % (Auto) (45-73) % Lymph % (Auto) (20-40) % [place] % (Auto) (2-11) % Eos % (Auto) (0-4) % Baso % (Auto) (0-2) % Lymph # (Auto) (1.2-4.9) X10*3/uL [place] # (Auto) (0.1-1.2) X10*3/uL Eos # (Auto) (0.0-0.4) X10*3/uL Baso # (Auto) (0.0-0.2) X10*3/uL Abs Immat Gran (auto) (0.00-0.03) X10*3/uL Absolute Neuts (auto) (2.0-8.3) X10*3/uL Absolute Nucleated RBC (0.0-0.012) X10*3/uL Nucleated RBC % (auto) (0.0-0.2) /100WBC Hold Blue Top Sodium (135-145) mmol/L Potassium (3.3-5.1) mmol/L Chloride (96-108) mmol/L Carbon Dioxide (22-29) mmol/L Anion Gap (12-20) BUN (9-16) mg/dL Creatinine (0.5-1.4) mg/dL Estim Creat Clear Calc Estimated GFR Random Glucose (60-115) mg/dL Lactic Acid 1.8 (0.5-2.0) mmol/L Calcium (8.4-10.2) mg/dL Troponin I High Sens 15.2 (<3.5-35.0) ng/L B-Natriuretic Peptide 3301 H (<100) pg/mL COVID-19 (CAROLINE) Negative (Negative) COVID-19 Clin Com See Note 04/02/21 Range/Units 14:58 WBC (4.8-10.8) X10*3/uL RBC (4.60-5.80) X10*6/uL Hgb (14.0-18.0) g/dl Hct (42-52) % MCV (80-98) fL MCH (27.0-33.0) pg MCHC (31.0-36.0) g/dl RDW (11.0-16.0) % Plt Count (160-400) X10*3/uL MPV (9.4-12.4) fL Immature Gran % (Auto) (0.0-0.4) % Neut % (Auto) (45-73) % Lymph % (Auto) (20-40) % [place] % (Auto) (2-11) % Eos % (Auto) (0-4) % Baso % (Auto) (0-2) % Lymph # (Auto) (1.2-4.9) X10*3/uL [place] # (Auto) (0.1-1.2) X10*3/uL Eos # (Auto) (0.0-0.4) X10*3/uL Baso # (Auto) (0.0-0.2) X10*3/uL Abs Immat Gran (auto) (0.00-0.03) X10*3/uL Absolute Neuts (auto) (2.0-8.3) X10*3/uL Absolute Nucleated RBC (0.0-0.012) X10*3/uL Nucleated RBC % (auto) (0.0-0.2) /100WBC Hold Blue Top Sodium (135-145) mmol/L Potassium (3.3-5.1) mmol/L Chloride (96-108) mmol/L Carbon Dioxide (22-29) mmol/L Anion Gap (12-20) BUN (9-16) mg/dL Creatinine (0.5-1.4) mg/dL Estim Creat Clear Calc Estimated GFR Random Glucose (60-115) mg/dL Lactic Acid (0.5-2.0) mmol/L Calcium (8.4-10.2) mg/dL Troponin I High Sens 14.7 (<3.5-35.0) ng/L B-Natriuretic Peptide (<100) pg/mL COVID-19 ([facility]OLINE) (Negative) COVID-19 Clin Com Imaging Data Chest x-ray: Attestation: I personally reviewed and interpreted this imaging study as follows: Radiologist's impression: IMPRESSION: Patchy opacity/atelectasis right lower lobe and right middle lobe. The findings have progressed since chest x-ray 12/22/2020. ECG Data Attestation: I personally reviewed and interpreted this ECG as follows: Interpretation: Normal sinus rhythm with a rate of 82, normal MT, QTC 481 Q- waves noted in leads 2 3 and AVF with poor R wave progression v1-v3 Discharge Plan Discharge Clinical Impression: CHF (congestive heart failure), Tachypnea, CAP (community acquired pneumonia) Patient Disposition: Admitted As Inpatient
--- NOTE | 2021-04-02 13:01 | PC.NURSE ---
PT AMBULATED APPROX 15 FT WITH PULSE OX IN PLACE, STATED FEELING WEAKER THAN USUAL, CHRONIC PAIN IN R LEG, WORSENED WITH CURRENT SWELLING. SPO2 REMAINED BETWEEN 90-95% ON RA WHILE AMBULATING WITH CANE AND PROSTHETIC L LEG ATTACHED. PT DYSPNEIC, RR INCREASED, CRACKLES HEARD IN LOWER LOBES BILATERALLY.
[2021-04-02] MEDS: Furosemide 40 MG/4 ML VIAL IVPUSH ×2 (13:13→18:24)
[2021-04-02] MEDS: cefTRIAXone sodium 1 GM in 0.9 % Sodium Chloride 50 ML IV (13:26)
[2021-04-02 13:54] LABS: COVID-19 Test Negative (Negative)
[2021-04-02 13:55] LABS: Lactic Acid 1.8 mmol/L (0.5-2.0)
[2021-04-02] MEDS: Azithromycin 500 MG in 0.9 % Sodium Chloride 250 ML 125 MG IV (14:33)
--- NOTE | 2021-04-02 15:23 | P.HPHOSP_ITS ---
History of Present Illness Date of Service: 04/02/21 Chief Complaint: Progressive shortness of breath This is a 61-year-old male with a past medical history of peripheral arterial disease status post multiple amputation in the bilateral lower extremities, diabetes mellitus, abdominal abscess status post prolonged healing and requiring multiple surgeries, systolic heart failure with an EF of 25-30% (last echo in 2019) who presents to the hospital with complaints of progressive shortness of breath over the last 2-3 weeks and severe lower extremity edema. Patient reports that prior to about 3 weeks ago he was able to ambulate freely and had really no restrictions in regards to his mobility. He now reports that he can barely walk 10 ft without having to stop and sit down to recover for shortness of breath. He reports that lower extremity edema is progressively worsening as above. He endorses orthopnea and paroxysmal nocturnal dyspnea. He denies any weight gain although he does not check his with weight very frequently. He denies any exertional chest pain. He denies fevers or chills. He denies any cough. Upon arrival to the emergency room his workup revealed a severely elevated BNP greater than 3000. His chest x-ray showed nonspecific findings, possible rib pneumonia. He was given a dose of antibiotics and IV Lasix. An attempt was made to ambulate the patient to evaluate his readiness for discharge, however within walking about 8-10 feet he became severely tachypneic and saturations maame pped to 90. He required more than 10 minutes to recover and subsequently admission was requested. Review of Systems Review of Systems: General - denies fevers or chills, denies weakness or fatigue HEENT -denies blurred vision, denies headache, denies sore throat Cardiovascular - denies chest pain or palpitations, +edema Respiratory -AIKEN Gastrointestinal - denies abdominal pain, nausea, vomiting, diarrhea - denies flank pain, denies dysuria, denies frequency or urgency Musculoskeletal - denies back pain, denies hip pain, denies knee pain, denies shoulder pain Neurological - denies any focal weakness or numbness Skin, denies any bruising or redness Psychiatric - denies any suicidal ideation, hallucinations, homicidal ideation [facility] Medical History Acute appendicitis Afib CHF (congestive heart failure) CVA (cerebral vascular accident) Diabetes Heart disease History of left below knee amputation HTN (hypertension) Ischemic cardiomyopathy Surgical History H/O exploratory laparotomy H/O right hemicolectomy History of transmetatarsal amputation of right foot Hx of cholecystectomy Social History Household Members Other:: Mother- cares for her Housing: House Alcohol intake: never Smoking Status: Light tobacco smoker Tobacco Type: Cigar Use of substances other than those prescribed or required for medical reasons: No Advance Directives: No Advance Directives Information Provided: No Meds Allergies Allergy/AdvReac Type Severity Reaction Status Date / Time vancomycin [VANCOMYCIN] Allergy Severe STOMACH Verified 04/02/21 10:22 UPSET, ill Active Medications: Current Medications Generic Name Dose Route Start Last Admin Trade Name Freq PRN Reason Stop Dose Admin Pharmacy Consult 1 each 04/02/21 12:52 Consult Rx Perform Med Rec MISCELLANE ONCE PRN Consult order Home Medications Medication Instructions Recorded Confirmed Last Taken Type amiodarone 1 tab PO DAILY 04/02/21 04/02/21 04/02/21 History furosemide 1 tab PO DAILY 04/02/21 04/02/21 04/02/21 History gemfibrozil 1 tab PO BID 04/02/21 04/02/21 04/02/21 History metoprolol tartrate 1 tab PO BID 04/02/21 04/02/21 04/02/21 History multivitamin 1 tab PO DAILY 04/02/21 04/02/21 04/02/21 History omeprazole 1 cap PO BID 04/02/21 04/02/21 04/02/21 History trazodone 1 tab PO BEDTIME 04/02/21 04/02/21 04/01/21 History Physical Exam Vital Signs and Narrative: Vital Signs: Last Vital Signs Temp 97.8 F 04/02/21 10:19 Pulse 87 04/02/21 14:57 Resp 16 04/02/21 14:57 BP 147/81 H 04/02/21 14:57 Pulse Ox 93 04/02/21 14:57 Body Mass Index 24.5 Const: Other: Constitutional - Awake and Alert, No apparent distress Eyes - PERRLA, EOMI Cardiovascular - S1S2, RRR, +JVD Respiratory - diminished sounds, comfortable at rest but tachypnea with exertion Gastrointestinal - NT; / ND; +BS; No rebound or guarding; RLE open wound with packing in place - No CVA tenderness Extremities - L BKA, + edema up to the thighs bilaterally Musculoskeletal - Normal inspection, normal ROM Skin - Warm/Dry Neurological - Alert & oriented x3, No focal deficit Psychological - Appropriate affect Results Labs CBC and Chem 7: 04/02/21 11:42 04/02/21 11:42 Labs: Laboratory Results - last 24 hr 04/02/21 04/02/21 04/02/21 11:42 11:42 11:42 MCV 86.4 MCH 28.0 MCHC 32.4 RDW 14.2 Plt Count 277 MPV 10.4 Immature Gran % (Auto) 0.4 Neut % (Auto) 81.0 H Lymph % (Auto) 10.0 L [place] % (Auto) 6.6 Eos % (Auto) 1.8 Baso % (Auto) 0.2 Lymph # (Auto) 1.1 L [place] # (Auto) 0.7 Eos # (Auto) 0.2 Baso # (Auto) 0.0 Abs Immat Gran (auto) 0.04 H Absolute Neuts (auto) 9.1 H Absolute Nucleated RBC 0.000 Nucleated RBC % (auto) 0.0 Hold Blue Top SEE NOTE Anion Gap 15 Estim Creat Clear Calc 113.0 Estimated GFR > 60 Random Glucose 253 H Lactic Acid Calcium 8.3 L Troponin I High Sens B-Natriuretic Peptide COVID-19 (CAROLINE) COVID-19 Clin Com 04/02/21 04/02/21 04/02/21 11:42 13:26 13:26 MCV MCH MCHC RDW Plt Count MPV Immature Gran % (Auto) Neut % (Auto) Lymph % (Auto) [place] % (Auto) Eos % (Auto) Baso % (Auto) Lymph # (Auto) [place] # (Auto) Eos # (Auto) Baso # (Auto) Abs Immat Gran (auto) Absolute Neuts (auto) Absolute Nucleated RBC Nucleated RBC % (auto) Hold Blue Top Anion Gap Estim Creat Clear Calc Estimated GFR Random Glucose Lactic Acid 1.8 Calcium Troponin I High Sens 15.2 B-Natriuretic Peptide 3301 H COVID-19 (CAROLINE) Negative COVID-19 Clin Com See Note Imaging Radiologist's Impressions: Impressions Chest X-Ray 04/02/21 10:23 IMPRESSION: Patchy opacity/atelectasis right lower lobe and right middle lobe. The findings have progressed since chest x-ray 12/22/2020. Assessment and Plan (1) CHF (congestive heart failure): Status: Acute This is a 61-year-old male with a past medical history of diabetes, peripheral arterial disease, complicated surgical course after a right lower intra-abdominal abscess secondary to ruptured appendix, known systolic heart failure with last echo in 2018 showing an EF of 25-30% who presents to the hospital complaints of progressive shortness of breath and lower extremity swelling. His presentation in the ED workup is most consistent with acute heart failure exacerbation. 1. Acute on chronic heart failure with reduced ejection fraction Last echo in 2018 showing EF of 25-30% Will repeat echo IV Lasix 40 mg twice daily Intake and output and daily weights May need cardiology evaluation if not improving 2. Paroxysmal atrial fibrillation Maintain in sinus with amiodarone, continue the same continue home dose metoprolol not on OAC -- unclear why. Will need to address this with the patient 3. History of DM does not appear to be on any meds continue with POC, hold off on sliding scale unless persistently elevated, will check a1c 4. Chronic Abdominal wound -- open wound care orders per Gen surg recs continue other chronic meds Full Code Reports his sister and brother are HCP DVT pptx, Lovenox
[2021-04-02 15:35] LABS: Troponin-I High Sensitivity 14.7 ng/L (<3.5-35.0)
[2021-04-02 16:16] LABS: Estimated Average Glucose 243 mg/dL; Hemoglobin A1c % 10.1 %
[2021-04-02] MEDS: 0.9 % Sodium Chloride Flush 3 ML SYRINGE IVFLUSH (17:41)
[2021-04-02 18:18] LABS: Glucose, Whole Blood 158 mg/dL (60-115)
[2021-04-02] MEDS: Enoxaparin Sodium 40 MG/0.4 ML SYRINGE SUBCUT (18:24)
--- NOTE | 2021-04-02 18:34 | PC.NURSE ---
Pt up to floor around 1750. A/O, ambulates independently/supervision with L prosthetic leg and cane. POC taken. Bed in lowest position with alarm on, call light within reach and instructed to use for assistance. Pt demonstrates understanding. Urinal at bedside. Pain and edema present in BLE. Chronic wound to R lateral abd with dressing C/D/I with reports of pain. Pt with no needs at this time.
[2021-04-02 20:19] LABS: Glucose, Whole Blood 202 mg/dL (60-115)
[2021-04-02] MEDS: diphenhydrAMINE HCL 50 MG/ML VIAL 25 MG IVPUSH (21:53)
[2021-04-02] MEDS: gemfibroziL 600 MG TABLET PO (21:53)
[2021-04-02] MEDS: Metoprolol Tartrate 25 MG TABLET PO (21:53)
[2021-04-02] MEDS: traZODone HCL 50 MG TABLET PO (21:53)
[2021-04-03] VITALS (9 sets, daily range): BP systolic 142–150; BP diastolic 79–87; PULSE 89–112; RESP 17–20; TEMP 36.8–37.1; O2SAT 93–96
[2021-04-03] MEDS: 0.9 % Sodium Chloride Flush 3 ML SYRINGE IVFLUSH ×3 (01:42→16:02)
[2021-04-03] MEDS: Omeprazole 20 MG CAPSULE.DR PO ×2 (05:39→16:02)
[2021-04-03 06:55] LABS: Anion Gap 14 (12-20); Blood Urea Nitrogen 16 mg/dL (9-16); Calcium 8.2 mg/dL (8.4-10.2); Carbon Dioxide 28 mmol/L (22-29); Chloride 102 mmol/L (96-108); Creatinine Clr Calc Pharmacy 110.2; Estimated Glomerular Filt Rate > 60; Glucose Random 195 mg/dL (60-115); Potassium 3.4 mmol/L (3.3-5.1); Sodium 141 mmol/L (135-145)
--- NOTE | 2021-04-03 07:00 | CA_ITS ---
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 Moderately dilated left ventricle with severe LV systolic dysfunction with LVEF of 20-25% with grade 2 diastolic dysfunction with underlying regional wall motion only which are not well defined on this study 2. Moderately dilated left atrium 3. [id number] mitral regurgitation 4. Moderately elevated right ventricular systolic pressure with significant elevated right atrial pressures 5. No gross pericardial effusion Findings Procedure Information Contrast agent, definity, is being given per protocol without apparent complications. Left Ventricle Moderately increased left ventricular cavity size. There is normal left ventricular wall thickness. The left ventricular systolic function is severely decreased. The visually estimated ejection fraction is between 20 25%. There is evidence of regional wall motion abnormalities. Spectral Doppler is indicative of a pseudonormal filling pattern. E/E prime ratio is >15, consistent with elevated filling pressures. Evidence suggests grade II (moderate) diastolic dysfunction. Right Ventricle Normal right ventricular cavity size and systolic function. Atria The left atrium is moderately dilated. There is no evidence of interatrial shunt. The right atrium is mildly dilated. Aortic Valve Normal aortic valve structure and function. There is no aortic valve stenosis. There is no aortic valve regurgitation. Mitral Valve There is mild anterior and moderate posterior mitral leaflet thickening. There is mild mitral annular calcification. There is mild to moderate mitral valve regurgitation. There is no mitral valve stenosis. Pulmonic Valve The pulmonic valve was not well visualized. Tricuspid Valve Likely normal tricuspid valve structure and function. There is mild tricuspid valve regurgitation. Significantly elevated right atrial pressure. Moderate pulmonary hypertension is present. Great Vessels All visible segments of the aorta are normal in size. The pulmonary artery was not well visualized. Venous The inferior vena cava is moderately dilated and does not collapse with inspiration. Pericardium/Pleural There is no evidence of pericardial effusion. Prior Study Comparison Changes noted compared to prior study dated: 04/15/2019. Right atrial pressure is significantly elevated along with elevated right ventricular systolic pressure Measurements 2D Linear Measurements IVSd: 0.94 0.6-0.9/0.6-1.0 cm LVIDd: 6.17 3.9-5.3/4.2-5.9 cm LVIDd Index: 2.83 2.4-3.2/2.2-3.1 cm/m2 LVIDs: 5.22 2.0-3.6 cm LVPWd: 0.98 0.7-1.1 cm Ao Root: 3.30 2.1-3.5 cm LA Diam: 4.40 2.7-3.8/3.0-4.0 cm LAIDs Index: 2.02 1.5-2.3 cm/m2 LV Mass: 307.19 67-162/88-224 g LV Mass Index: 140.91 43-95/49-115 g/m2 LVOT Diam: 2.20 3.0+(-)1.3 cm 2D Systolic Function EF 4C: 26.90 >55% EF 2C: 24.60 >55% Mitral Valve MV Pk E: 1.31 MV PK A: 0.90 MV Decel Time: 125.00 E/A: 1.50 PHT: 37.00 MVA PHT: 5.95 Decel Glades: 10.50 Aortic Valve AoV Pk Robin: 1.06 AoV Mn Robin: 0.76 AoV VTI: 0.18 AoV Pk Grad: 4.00 Aov Mn Grad: 3.00 EUFEMIA Cont.VTI: 2.31 LVOT LVOT Pk Robin: 0.69 LVOT Mn Robin: 0.46 LVOT VTI: 0.11 LVOT Pk Grad: 2.00 LVOT Mn Grad: 1.00 LVOT Diam: 2.20 LVOT Area: 3.80 Diastolic Function MV Pk E: 1.31 MV Pk A: 0.90 E/A: 1.50 Tricuspid Valve TR Pk Robin: 2.90 TR Pk Grad: 34.00 RA Press: 15.00 RVSP: 49.00 Great Vessels Aorta Ao Root-2D: 3.30 2.0-3.7 cm Ao Asc: 3.70 2.1-3.4 cm Updated in Other Vendor System with Status of Final Haja Mullins MD electronically signed on 04/03/2021 12:07:57 PM with status of Final
[2021-04-03 07:06] LABS: Glucose, Whole Blood 187 mg/dL (60-115)
--- NOTE | 2021-04-03 09:16 | MHC.CM.PN ---
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 PT REPORTS HE IS STILL ACTIVE WITH [facility] FOR WOUND CARE AND SEES THE NURSE EVERY OTHER DAY. PT REPORTS HE USES A CANE AND PROSTHETIC LEG TO AMBULATE. PT HAS A HCP AND PCP, RONNIE MALONE, ON FILE HE CONFIRMS ARE ACCURATE. IMM EXPLAINED, PT REPORTS UNDERSTANDING. CURRENT DC PLAN IS HOME WITH RESUMPTION OF [facility] PTS BROTHER WILL TRANSPORT
[2021-04-03] MEDS: Amiodarone HCL 200 MG TABLET PO (09:48)
[2021-04-03] MEDS: gemfibroziL 600 MG TABLET PO ×2 (09:48→21:44)
[2021-04-03] MEDS: Multivitamin TABLET 1 TAB PO (09:49)
[2021-04-03] MEDS: Metoprolol Tartrate 25 MG TABLET PO ×2 (09:49→21:44)
[2021-04-03] MEDS: Furosemide 40 MG/4 ML VIAL IVPUSH ×2 (09:49→18:40)
[2021-04-03 11:01] LABS: Glucose, Whole Blood 222 mg/dL (60-115)
--- NOTE | 2021-04-03 11:08 | MHC.CLN ---
RECOMMEND 2200DM 2GM NA DIET R/T HX CHF PT WITHOUT SIGNIFICANT WT LOSS NSG ASSESSMENT NOTED WT LOSS HOWEVER WT LOSS OCCURRED IN 2019 S/P SX PT'S WT CURRENTLY WITHIN IBW RANGE; BMI 24.5 NORMAL
--- NOTE | 2021-04-03 13:11 | HO.PM.IMPN ---
Subjective Subjective Date of Service: 04/03/21 Interval History: Seen in follow-up for CHF Reports improvement in lower extremity edema No shortness of breath while at rest Review of Systems Review of Systems: Yes all other systems are reviewed and are negative Constitutional Constitutional: Denies chills and Denies fever(s) Cardiovascular Cardiovascular: Denies chest pain Respiratory Respiratory: Denies cough Gastrointestinal Gastrointestinal: Denies abdominal pain Physical Exam Vital Signs: Vital Signs: Last Vital Signs Temp 98.7 F 04/03/21 11:09 Pulse 89 04/03/21 11:09 Resp 17 04/03/21 11:09 BP 142/80 H 04/03/21 11:09 Pulse Ox 93 04/03/21 11:09 Body Mass Index 24.5 Const: General: comfortable, no acute distress, alert and awake Nutritional Appearance: well nourished Orientation/consciousness: patient oriented x3 HENMT: Head: Yes normocephalic and Yes atraumatic Eyes: Sclerae: sclerae normal Chest: Chest palpation & inspection: normal inspection of the chest Resp: Other: b/l crackles Effort & Inspection: normal respiratory effort and no respiratory distress GI: Palpation (GI): Soft to palpation and nontender Skin: Other: chronic skin changes right lower leg. Small open abdominal wound right lateral abdomen, no surrounding erythema. Covered in dry intact dressing. Neuro: General: patient oriented x3 Cranial nerves: Yes CN's II-XII intact bilaterally and Yes Bilaterally intact EOM present Extrem: Other: s/p left BKA, right transmetatarsal amputations; RLE edema Objective Data Current Medications Generic Name Dose Route Start Last Admin Trade Name Gualberto PRN Reason Stop Dose Admin Acetaminophen 650 mg 04/02/21 16:34 Acetaminophen 325 Mg Tablet PO Q6H PRN Pain, Mild (Pain Scale 1-3) Amiodarone HCl 200 mg 04/03/21 09:00 04/03/21 09:48 Amiodarone Hcl 200 Mg Tablet PO 200 mg DAILY KANCHAN Administration Enoxaparin Sodium 40 mg 04/02/21 18:00 04/02/21 18:24 Enoxaparin Sodium 40 Mg/0.4 Ml Syringe SUBCUT 40 mg Q24H KANCHAN Administration Furosemide 40 mg 04/02/21 18:00 04/03/21 09:49 Furosemide 40 Mg/4 Ml Vial IVPUSH 40 mg BID@0900,1800 [facility] Administration Protocol Gemfibrozil 600 mg 04/02/21 21:00 04/03/21 09:48 Gemfibrozil 600 Mg Tablet PO 600 mg BID KANCHAN Administration Insulin Human Lispro 0 unit 04/03/21 16:30 Insulin Lispro 100 Unit/Ml 3 Ml Vial SUBCUT QIDACHS [facility] Protocol Metoprolol Tartrate 25 mg 04/02/21 21:00 04/03/21 09:49 Metoprolol Tartrate 25 Mg Tablet PO 25 mg BID KANCHAN Administration Protocol Multivitamins/Vitamin C 1 tab 04/03/21 09:00 04/03/21 09:49 Multivitamin Tablet PO 1 tab DAILY KANCHAN Administration Omeprazole 20 mg 04/03/21 06:30 04/03/21 05:39 Omeprazole 20 Mg Capsule.Dr PO 20 mg BID@0630,1630 [facility] Administration Sodium Chloride 3 ml 04/02/21 16:34 04/03/21 09:49 0.9 % Sodium Chloride Flush 3 Ml Syringe IVFLUSH 3 ml QSHIFT KANCHAN Administration Trazodone HCl 50 mg 04/02/21 21:00 04/02/21 21:53 Trazodone Hcl 50 Mg Tablet PO 50 mg BEDTIME KANCHAN Administration Labs CBC & Chem 7: 04/02/21 11:42 04/03/21 05:35 Assessment and Plan (1) CHF (congestive heart failure): Status: Acute Assessment and Plan: This is a 61-year-old male with a past medical history of diabetes, peripheral arterial disease, complicated surgical course after a right lower intra-abdominal abscess secondary to ruptured appendix, known systolic heart failure with last echo in 2018 showing an EF of 25-30% who presents to the hospital complaints of progressive shortness of breath and lower extremity swelling. His presentation in the ED workup is most consistent with acute heart failure exacerbation. 1. Acute on chronic combined systolic and diastolic CHF Repeat echo showing EF 20-25% with grade 2 diastolic dysfunction with regional wall motion abnormality Continue IV Lasix 40 mg twice daily Follow Intake and output and daily weights Will consult Cardiology 2. Paroxysmal atrial fibrillation Maintained in sinus with amiodarone continue home dose metoprolol not on OAC -- unclear why 3. History of DM Not currently on any medication, previously on insulin but this was discontinued during previous admission due to decreased p.o. intake and episodes of hypoglycemia HBA1c 10.01 -will start sliding scale and monitor insulin needs 4. Chronic Abdominal wound -- open wound care orders per Gen surg recs Question of pneumonia seen on chest x-ray No cough, fever, leukocytosis to suggest infection Treated with empiric antibiotics in the ED, no indication for further antibiotics at this time continue other chronic meds Full Code Reports his sister and brother are HCP DVT pptx, Lovenox Attending-Dr. Barillas
[2021-04-03 15:52] LABS: Glucose, Whole Blood 222 mg/dL (60-115)
[2021-04-03] MEDS: Insulin Lispro 100 UNIT/ML 3 ML VIAL SUBCUT (16:05)
[2021-04-03] MEDS: Enoxaparin Sodium 40 MG/0.4 ML SYRINGE SUBCUT (18:41)
--- NOTE | 2021-04-03 19:40 | PC.NURSE ---
Patient continues to have difficulty putting on prosthetic due to swelling. Able to stand/pivot to commode with assist. Patient underwent echo and CT today. Insulin orders obtained. Cardiology consult pending.
[2021-04-03 19:58] LABS: Glucose, Whole Blood 133 mg/dL (60-115)
[2021-04-03] MEDS: traZODone HCL 50 MG TABLET PO (21:44)
[2021-04-04] MEDS: 0.9 % Sodium Chloride Flush 3 ML SYRINGE IVFLUSH ×3 (00:45→17:29)
[2021-04-04] MEDS: diphenhydrAMINE HCL 50 MG/ML VIAL 25 MG IVPUSH (00:45)
[2021-04-04 04:00] VITALS: BP 144/80; PULSE 87; RESP 20; TEMP 36.6; O2SAT 91
[2021-04-04] MEDS: Omeprazole 20 MG CAPSULE.DR PO ×2 (06:05→17:30)
[2021-04-04 06:58] LABS: Anion Gap 12 (12-20); B Type Natriuretic Peptide 2500 pg/mL (<100); Blood Urea Nitrogen 15 mg/dL (9-16); Calcium 8.4 mg/dL (8.4-10.2); Carbon Dioxide 30 mmol/L (22-29); Chloride 102 mmol/L (96-108); Creatinine Clr Calc Pharmacy 118.8; Estimated Glomerular Filt Rate > 60; Glucose Random 153 mg/dL (60-115); Potassium 3.4 mmol/L (3.3-5.1); Sodium 141 mmol/L (135-145)
[2021-04-04 07:13] LABS: Glucose, Whole Blood 145 mg/dL (60-115)
[2021-04-04 07:25] VITALS: BP 159/90; PULSE 92; RESP 18; TEMP 36.4; O2SAT 93
[2021-04-04] MEDS: Metoprolol Tartrate 25 MG TABLET PO ×2 (09:58→22:29)
[2021-04-04] MEDS: Multivitamin TABLET 1 TAB PO (09:58)
[2021-04-04] MEDS: gemfibroziL 600 MG TABLET PO ×2 (09:58→22:29)
[2021-04-04] MEDS: Amiodarone HCL 200 MG TABLET PO (09:58)
[2021-04-04] MEDS: Furosemide 40 MG/4 ML VIAL IVPUSH (09:58)
[2021-04-04 11:07] VITALS: BP 153/94; PULSE 93; RESP 22; TEMP 36.6; O2SAT 94
[2021-04-04 11:08] LABS: Glucose, Whole Blood 189 mg/dL (60-115)
--- NOTE | 2021-04-04 11:13 | PM.CNCAR ---
History of Present Illness History of Present Illness Date of Service: 04/04/21 Requesting physician: Shiva Barillas Consult reason: congestive heart failure Chief complaint: Shortness of breath Narrative: I was asked to see Denzel in cardiology consultation today for decompensated heart failure. He is a 61-year-old male over the last 2 years has had multiple abdominal interventions due to ruptured appendix in the past. Two years ago was diagnosed with severe LV systolic dysfunction appear to be ischemic cardiomyopathy. Also at that time and atrial fibrillation. Maintained on a amiodarone and has done well with sinus rhythm. However the last 2 weeks he has noticed increasing leg swelling and increasing shortness of breath as well as orthopnea. He was not sure as to what was going on. He presented to the hospital and was noted to be in decompensated congestive heart failure. Echocardiogram performed yesterday again confirm severe LV systolic dysfunction with regional wall motion abnormality suggestive ischemic cardiomyopathy. Cardiology consult was sought for further management. He has been getting Lasix, his BNP is down trending, however he continues to have significant fluid overload. 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 Has not had ischemic workup. He has prior left below-knee amputation secondary to diabetes says but also was told that he has peripheral vascular disease. He also has transmetatarsal amputation on the right. However he is highly functional and he says he walks with a prosthetic limb, however over the last week or so his exercise capacity has significantly diminished Review of Systems Constitutional: Constitutional: Reports fatigue and Reports lethargy Cardiovascular: Cardiovascular: Reports Abdominal Distension, Denies chest pain, Reports leg edema, Denies palpitations, Reports dyspnea on exertion and Reports orthopnea Respiratory: Respiratory: Reports no additional respiratory complaints and Reports dyspnea on exertion Gastrointestinal: Gastrointestinal: Reports no additional gastrointestinal complaints Neurologic: Reports system reviewed and no additional complaints, except as documented Psychiatric: Psychiatric: Reports no additional psychiatric complaints Endocrine: Endocrine: Reports no additional endocrine complaints, Reports fatigue and Denies palpitations Hematologic/Lymphatic: Hematologic/Lymphatic: Reports no additional hematologic/lymphatic complaints [facility] Past Medical History Medical History (Updated 04/04/21 @ 11:24 by Haja Mullins MD) Acute appendicitis CHF (congestive heart failure) CVA (cerebral vascular accident) Diabetes Heart disease Heart failure with reduced ejection fraction History of left below knee amputation HTN (hypertension) Ischemic cardiomyopathy Paroxysmal atrial fibrillation Surgical History Surgical History H/O exploratory laparotomy H/O right hemicolectomy History of transmetatarsal amputation of right foot Hx of cholecystectomy Social History Social History Household Members: Family Household Members Other:: Mother- cares for her Housing: House Do you presently have visiting nurse or other home services: Yes Alcohol intake: never Smoking Status: Light tobacco smoker Tobacco Type: Cigar Use of substances other than those prescribed or required for medical reasons: No Currently Displaying Signs/Symptoms of Drug Intoxication Withdrawal: No Any prior treatment program specific to substance use: No Have you been hit, kicked, punched, or otherwise hurt by someone within the past year? If so, by whom?: No Do you feel safe in your current relationship?: No Current Relationship Is there a partner from a previous relationship who is making you feel unsafe now?: No Are you made to feel afraid or neglected: No Advance Directives: No Advance Directives Information Provided: No Do you have thoughts of harming others: None Do you have a plan to hurt others: No Plan Recently lost weight without trying: No How much weight loss: 34pounds or more Eating poorly because of decreased appetite: No Nutrition screen score: 4 Nutrition Risks: No Nutritional Risk service: No Current occupational status: retired and disabled Meds Allergies Allergy/AdvReac Type Severity Reaction Status Date / Time vancomycin [VANCOMYCIN] Allergy Severe STOMACH Verified 04/02/21 10:22 UPSET, ill Active Medications: Current Medications Generic Name Dose Route Start Last Admin Trade Name Gualberto PRN Reason Stop Dose Admin Acetaminophen 650 mg 04/02/21 16:34 Acetaminophen 325 Mg Tablet PO Q6H PRN Pain, Mild (Pain Scale 1-3) Amiodarone HCl 200 mg 04/03/21 09:00 04/04/21 09:58 Amiodarone Hcl 200 Mg Tablet PO 200 mg DAILY KANCHAN Administration Enoxaparin Sodium 40 mg 04/02/21 18:00 04/03/21 18:41 Enoxaparin Sodium 40 Mg/0.4 Ml Syringe SUBCUT 40 mg Q24H KANCHAN Administration Furosemide 40 mg 04/02/21 18:00 04/04/21 09:58 Furosemide 40 Mg/4 Ml Vial IVPUSH 40 mg BID@0900,1800 [facility] Administration Protocol Gemfibrozil 600 mg 04/02/21 21:00 04/04/21 09:58 Gemfibrozil 600 Mg Tablet PO 600 mg BID KANCHAN Administration Insulin Human Lispro 0 unit 04/03/21 16:30 04/04/21 08:03 Insulin Lispro 100 Unit/Ml 3 Ml Vial SUBCUT Not Given QIDACHS [facility] Protocol Metoprolol Tartrate 25 mg 04/02/21 21:00 04/04/21 09:58 Metoprolol Tartrate 25 Mg Tablet PO 25 mg BID KANCHAN Administration Protocol Multivitamins/Vitamin C 1 tab 04/03/21 09:00 04/04/21 09:58 Multivitamin Tablet PO 1 tab DAILY KANCHAN Administration Omeprazole 20 mg 04/03/21 06:30 04/04/21 06:05 Omeprazole 20 Mg Capsule.Dr PO 20 mg BID@0630,1630 [facility] Administration Sodium Chloride 3 ml 04/02/21 16:34 04/04/21 09:58 0.9 % Sodium Chloride Flush 3 Ml Syringe IVFLUSH 3 ml QSHIFT [facility] Administration Trazodone HCl 50 mg 04/02/21 21:00 04/03/21 21:44 Trazodone Hcl 50 Mg Tablet PO 50 mg BEDTIME KANCHAN Administration Home Medications Medication Instructions Recorded Confirmed Last Taken Type amiodarone 1 tab PO DAILY 04/02/21 04/02/21 04/02/21 History furosemide 1 tab PO DAILY 04/02/21 04/02/21 04/02/21 History gemfibrozil 1 tab PO BID 04/02/21 04/02/21 04/02/21 History metoprolol tartrate 1 tab PO BID 04/02/21 04/02/21 04/02/21 History multivitamin 1 tab PO DAILY 04/02/21 04/02/21 04/02/21 History omeprazole 1 cap PO BID 04/02/21 04/02/21 04/02/21 History trazodone 1 tab PO BEDTIME 04/02/21 04/02/21 04/01/21 History Physical Exam Vital Signs: Vital Signs: Last Vital Signs Temp 97.9 F 04/04/21 11:07 Pulse 93 04/04/21 11:07 Resp 22 H 04/04/21 11:07 BP 153/94 H 04/04/21 11:07 Pulse Ox 94 04/04/21 11:07 Body Mass Index 24.5 Const: General: cooperative, comfortable, alert, awake and acute distress mild and respiratory Nutritional Appearance: average body habitus Orientation/consciousness: patient oriented x3 HENMT: Head: Yes normocephalic and Yes atraumatic Neck: Neck: Yes trachea midline, Yes supple and Yes JVD Resp: Effort & Inspection: normal respiratory effort Auscultation: breath sounds absent bilateral Cardio: Palpation: abnormal PMI displaced PMI Rate: regular rate Rhythm: regular rhythm Heart sounds: S1 normal heart sound present and S2 normal heart sound present GI: Inspection: Yes distended Auscultation: normal bowel sounds Skin: General skin exam: no rashes or lesions noted Neuro: General: patient oriented x3 and no focal motor deficits Extrem: General: No clubbing, No cyanosis, Yes edema and Yes other (Left below-knee amputation and right transmetatarsal amputation) Psych: Appearance: grossly normal Results Labs and Meds Result diagrams: 04/02/21 11:42 04/04/21 05:23 Lab results: Laboratory Results - last 24 hr 04/03/21 04/03/21 04/04/21 15:48 19:50 05:23 Sodium 141 Potassium 3.4 Chloride 102 Carbon Dioxide 30 H Anion Gap 12 BUN 15 Creatinine 0.77 Estim Creat Clear Calc 118.8 Estimated GFR > 60 POC Glucose 222 H 133 H Random Glucose 153 H Calcium 8.4 B-Natriuretic Peptide 04/04/21 04/04/21 04/04/21 05:23 07:04 10:58 Sodium Potassium Chloride Carbon Dioxide Anion Gap BUN Creatinine Estim Creat Clear Calc Estimated GFR POC Glucose 145 H 189 H Random Glucose Calcium B-Natriuretic Peptide 2500 H EKG shows normal sinus rhythm with inferior infarct and IVCD. Imaging Radiologist's impression: Impressions Chest CT 04/03/21 14:15 IMPRESSION: 1. New small to moderate left effusion with atelectasis left posterior base since prior CT 12/22/2020. 2. Increased fluid and right fissures. Fluid right base and smooth right pleural thickening stable. 3. Interval spiculated opacity lateral right upper lobe approximately 1.3 cm. 4. Mild increased mediastinal adenopathy. Assessment and Plan (1) Heart failure with reduced ejection fraction: Status: Acute Heart failure with reduced ejection fraction, new decompensation in a middle-aged man with known prior severe LV systolic dysfunction suspected to be secondary to ischemic cardiomyopathy. See below. Continues to remain fluid overloaded. Continue more aggressive IV diuresis, would switch to Lasix drip at 5 mg an hour. Strict intake and output chart needs to be pursued. Continue to trend BMP and BNP. Further management as below. (2) Ischemic cardiomyopathy: Status: Acute Severe ischemic cardiomyopathy known for few years. Unclear etiology. High likelihood of underlying obstructive coronary artery disease. Will need ischemic evaluation once he is stabilized and can be done as an outpatient. Will require more aggressive neurohormonal modulation. Continue metoprolol therapy for now. Add Diovan 40 mg b.i.d. for afterload reduction and gradually uptitrated for better blood pressure control and will eventually as outpatient switch to Entresto therapy. Also add Aldactone 25 mg to his regimen as neurohormonal modulation as well as a diuretic. Had a very long discussion with patient about the findings of heart failure as well as ischemic cardiomyopathy workup required. Understands agrees. Once ischemic evaluations completed and depending on improvement in the LV ejection fraction based dyes after revascularization medical therapy may need to consider an long run defibrillator placement for primary prevention. (3) Paroxysmal atrial fibrillation: Status: Acute Paroxysmal atrial fibrillation, has remained suppressed on amiodarone therapy. Continue the same. Continue check for amiodarone toxicity. Continue rhythm control approach. CHADSVASC score of 6. Should be on oral anticoagulant therapy. Consider starting direct oral anticoagulant with Xarelto 20 mg daily. Continue to trend renal function. Will follow the patient. Thank you for allowing us to partake in his care Procedures Date of Service Date of Service: 04/04/21
--- NOTE | 2021-04-04 12:11 | P.PNIM_ITS ---
Subjective Subjective Date of Service: 04/04/21 Interval History: Seen and examined this morning Seen in for CHF exacerbation Continues to have lower extremity edema, reports orthopnea Denies chest pain, palpitations, cough Review of Systems Review of Systems: Yes all other systems are reviewed and are negative Constitutional Constitutional: Denies chills and Denies fever(s) Cardiovascular Cardiovascular: Denies chest pain Respiratory Respiratory: Denies cough Gastrointestinal Gastrointestinal: Denies abdominal pain Physical Exam Vital Signs: Vital Signs: Last Vital Signs Temp 97.9 F 04/04/21 11:07 Pulse 93 04/04/21 11:07 Resp 22 H 04/04/21 11:07 BP 153/94 H 04/04/21 11:07 Pulse Ox 94 04/04/21 11:07 Body Mass Index 24.5 Const: General: comfortable, no acute distress, alert and awake Nutritional Appearance: well nourished Orientation/consciousness: patient oriented x3 HENMT: Head: Yes normocephalic and Yes atraumatic Eyes: Sclerae: sclerae normal Chest: Chest palpation & inspection: normal inspection of the chest Resp: Other: diminished at bases Effort & Inspection: normal respiratory effort and no respiratory distress GI: Palpation (GI): Soft to palpation and nontender Skin: Other: chronic skin changes right lower leg. Small open abdominal wound right lateral abdomen, no surrounding erythema. Covered in dry intact dressing. Neuro: General: patient oriented x3 Cranial nerves: Yes CN's II-XII intact bilaterally and Yes Bilaterally intact EOM present Extrem: Other: s/p left BKA, right transmetatarsal amputations; lower extremity edema present Objective Data Current Medications Generic Name Dose Route Start Last Admin Trade Name Freq PRN Reason Stop Dose Admin Acetaminophen 650 mg 04/02/21 16:34 Acetaminophen 325 Mg Tablet PO Q6H PRN Pain, Mild (Pain Scale 1-3) Amiodarone HCl 200 mg 04/03/21 09:00 04/04/21 09:58 Amiodarone Hcl 200 Mg Tablet PO 200 mg DAILY [facility] Administration Gemfibrozil 600 mg 04/02/21 21:00 04/04/21 09:58 Gemfibrozil 600 Mg Tablet PO 600 mg BID [facility] Administration Furosemide 200 mg/ Sodium 100 mls @ 2.5 mls/hr 04/04/21 11:30 Chloride IVCONT .Q24H [facility] 5 MG/HR Insulin Human Lispro 0 unit 04/03/21 16:30 04/04/21 08:03 Insulin Lispro 100 Unit/Ml 3 Ml Vial SUBCUT Not Given QIDACHS [facility] Protocol Metoprolol Tartrate 25 mg 04/02/21 21:00 04/04/21 09:58 Metoprolol Tartrate 25 Mg Tablet PO 25 mg BID [facility] Administration Protocol Multivitamins/Vitamin C 1 tab 04/03/21 09:00 04/04/21 09:58 Multivitamin Tablet PO 1 tab DAILY [facility] Administration Omeprazole 20 mg 04/03/21 06:30 04/04/21 06:05 Omeprazole 20 Mg Capsule.Dr PO 20 mg BID@0630,8500 [facility] Administration Rivaroxaban 20 mg 04/04/21 11:30 Rivaroxaban 20 Mg Tablet PO DAILY [facility] Sodium Chloride 3 ml 04/02/21 16:34 04/04/21 09:58 0.9 % Sodium Chloride Flush 3 Ml Syringe IVFLUSH 3 ml QSHIFT [facility] Administration Spironolactone 25 mg 04/04/21 11:30 Spironolactone 25 Mg Tablet PO DAILY [facility] Protocol Trazodone HCl 50 mg 04/02/21 21:00 04/03/21 21:44 Trazodone Hcl 50 Mg Tablet PO 50 mg BEDTIME [facility] Administration Valsartan 40 mg 04/04/21 21:00 Valsartan 40 Mg Tablet PO BID [facility] Protocol Labs CBC & Chem 7: 04/02/21 11:42 04/04/21 05:23 Microbiology Microbiology Results: Microbiology 04/02/21 13:30 Blood - Venous Blood Culture - Preliminary No growth after 24 hours. 04/02/21 13:26 Blood - Venous Blood Culture - Preliminary No growth after 24 hours. Assessment and Plan (1) CHF (congestive heart failure): Status: Acute Assessment and Plan: This is a 61-year-old male with a past medical history of diabetes, peripheral arterial disease, complicated surgical course after a right lower intra- abdominal abscess secondary to ruptured appendix, known systolic heart failure with last echo in 2019 showing an EF of 25-30% who presents to the hospital complaints of progressive shortness of breath and lower extremity swelling. His presentation in the ED workup is most consistent with acute heart failure exacerbation. Acute on chronic combined systolic and diastolic CHF Repeat echo showing EF 20-25% with grade 2 diastolic dysfunction with regional wall motion abnormality Initially started IV Lasix 40 mg twice daily, still with significant edema will transition to Lasix drip Follow Intake and output and daily weights Cardiology following, appreciate recs, will start diovan, aldactone Paroxysmal atrial fibrillation Continue IV amiodarone, metoprolol seen by cardiology, given high chadsVasc score, rec start AC with xarelto DM Not currently on any medication, previously on insulin but this was discontinued during previous admission due to decreased p.o. intake and episodes of hypoglycemia HBA1c 10.01 POCs primarily under 200, has only received 6U coverage. will hold off on long acting insulin for now and continue sliding scale coverage Likely metformin on discharge Chronic Abdominal wound -- open wound care orders per Gen surg recs Question of pneumonia seen on chest x-ray No cough, fever, leukocytosis to suggest infection Treated with empiric antibiotics in the ED, no indication for further antibiotics at this time Chest CT obtained, no pneumonia, 1.3cm spiculated opacity seen - will need outpatient workup. continue other chronic meds Full Code Reports his sister and brother are HCP DVT pptx, [place] Attending-Dr. Barillas
[2021-04-04] MEDS: Rivaroxaban 20 MG TABLET PO (12:14)
[2021-04-04] MEDS: Spironolactone 25 MG TABLET PO (12:14)
[2021-04-04] MEDS: Insulin Lispro 100 UNIT/ML 3 ML VIAL SUBCUT ×2 (12:14→17:29)
--- NOTE | 2021-04-04 12:14 | MHC.CM.PN ---
per rounds pt to be dcd tomorrow with resumption og hvns will taken home by brother
[2021-04-04] MEDS: Furosemide 200 MG in 0.9 % Sodium Chloride 80 ML IVCONT (13:02)
[2021-04-04 15:06] VITALS: BP 148/87; PULSE 85; RESP 18; TEMP 36.1; O2SAT 92
[2021-04-04 16:13] LABS: Glucose, Whole Blood 180 mg/dL (60-115)
[2021-04-04] MEDS: Barium Sulfate Oral (Vanilla) 450 ML ORAL.SUSP 900 ML PO (16:48)
[2021-04-04] MEDS: iohexoL 350 MG/ML 100 ML INFUS..BTL IV (16:49)
[2021-04-04 19:18] VITALS: BP 146/81; PULSE 92; RESP 18; TEMP 36.6; O2SAT 93
[2021-04-04 20:24] LABS: Glucose, Whole Blood 148 mg/dL (60-115)
[2021-04-04] MEDS: traZODone HCL 50 MG TABLET PO (22:29)
[2021-04-04] MEDS: ondansetron HCL 4 MG/2 ML VIAL IVPUSH (22:29)
[2021-04-04] MEDS: Valsartan 40 MG TABLET PO (22:29)
[2021-04-04] MEDS: Nystatin Powder 15 GM BOTTLE 1 APPL TOPICAL (22:29)
[2021-04-04 23:29] VITALS: BP 136/77; PULSE 92; RESP 18; TEMP 36.4; O2SAT 91
[2021-04-05] VITALS (8 sets, daily range): BP systolic 129–143; BP diastolic 55–78; PULSE 85–95; RESP 18–22; TEMP 36.4–36.9; O2SAT 90–93
[2021-04-05] MEDS: diphenhydrAMINE HCL 50 MG/ML VIAL 25 MG IVPUSH (00:10)
[2021-04-05] MEDS: Prochlorperazine Edisylate 10 MG/2 ML VIAL 5 MG IM (05:33)
[2021-04-05 07:43] LABS: Glucose, Whole Blood 139 mg/dL (60-115)
[2021-04-05 07:53] LABS: Hemoglobin 13.7 g/dl (14.0-18.0); Mean Corpuscular HGB Conc 31.9 g/dl (31.0-36.0); Mean Corpuscular Hemoglobin 27.8 pg (27.0-33.0); Mean Corpuscular Volume 87.2 fL (80-98); Mean Platelet Volume 10.2 fL (9.4-12.4); Platelet Count 307 X10*3/uL (160-400); Red Blood Count 4.93 X10*6/uL (4.60-5.80); Red Cell Distribution Width 14.2 % (11.0-16.0); White Blood Count 12.9 X10*3/uL (4.8-10.8)
[2021-04-05 08:19] LABS: Anion Gap 15 (12-20); Blood Urea Nitrogen 12 mg/dL (9-16); Calcium 8.1 mg/dL (8.4-10.2); Carbon Dioxide 29 mmol/L (22-29); Chloride 98 mmol/L (96-108); Creatinine Clr Calc Pharmacy 130.7; Estimated Glomerular Filt Rate > 60; Glucose Random 161 mg/dL (60-115); Sodium 139 mmol/L (135-145)
[2021-04-05] MEDS: 0.9 % Sodium Chloride Flush 3 ML SYRINGE IVFLUSH ×2 (09:02→21:13)
[2021-04-05] MEDS: Valsartan 40 MG TABLET PO (09:02)
[2021-04-05] MEDS: Spironolactone 25 MG TABLET PO (09:03)
[2021-04-05] MEDS: Nystatin Powder 15 GM BOTTLE 1 APPL TOPICAL ×2 (09:03→21:13)
[2021-04-05] MEDS: Metoprolol Tartrate 25 MG TABLET PO ×2 (09:03→21:12)
[2021-04-05] MEDS: Amiodarone HCL 200 MG TABLET PO (09:03)
[2021-04-05] MEDS: Multivitamin TABLET 1 TAB PO (09:03)
[2021-04-05] MEDS: gemfibroziL 600 MG TABLET PO ×2 (09:03→21:12)
[2021-04-05] MEDS: Rivaroxaban 20 MG TABLET PO (09:03)
[2021-04-05] MEDS: Potassium Chloride ER 20 MEQ TAB.ER.PRT 40 MEQ PO (09:20)
--- NOTE | 2021-04-05 10:05 | PM.PNCARD ---
Subjective Subjective Date of Service: 04/05/21 Principal diagnosis: CHF Interval history: Patient been diuresing well. Still has fluid overload and says he cannot get his prosthesis on because of the swelling. Yesterday he had abdominal CT scan with contrast and since then he has been getting nausea and cough productive of phlegm as well as diarrhea. Shortness of breath is improving. Blood pressure is adequate. Potassium is on the low side today. Review of Systems Constitutional: Reports weakness Cardiovascular: Denies chest pain, Reports leg edema, Denies palpitations and Reports dyspnea Respiratory: Reports dyspnea Gastrointestinal: Reports diarrhea and Reports nausea Reports system reviewed and no additional complaints, except as documented and Reports weakness Psychiatric: Reports no additional psychiatric complaints Endocrine: Reports no additional endocrine complaints and Denies palpitations Physical Exam Vital Signs: Last Vital Signs Temp 98.5 F 04/05/21 08:00 Pulse 93 04/05/21 09:03 Resp 22 H 04/05/21 08:00 BP 141/55 H 04/05/21 09:03 Pulse Ox 90 L 04/05/21 08:00 Body Mass Index 24.5 Neck Neck: Yes trachea midline, Yes supple and Yes JVD Resp Effort & Inspection: normal respiratory effort Auscultation: no rales and breath sounds absent bilateral (Bases) Cardio Palpation: abnormal PMI displaced PMI Rate: regular rate Rhythm: regular rhythm Heart sounds: S1 normal heart sound present and S2 normal heart sound present GI Auscultation: normal bowel sounds Skin General skin exam: no rashes or lesions noted Extrem General: No clubbing, No cyanosis and Yes edema Psych Appearance: grossly normal Results Labs and Meds Result diagrams: 04/05/21 06:08 04/05/21 06:08 Lab results: Laboratory Results - last 24 hr 04/04/21 04/04/21 04/04/21 10:58 16:07 20:07 WBC RBC Hgb Hct MCV MCH MCHC RDW Plt Count MPV Absolute Nucleated RBC Nucleated RBC % (auto) Sodium Potassium Chloride Carbon Dioxide Anion Gap BUN Creatinine Estim Creat Clear Calc Estimated GFR POC Glucose 189 H 180 H 148 H Random Glucose Calcium 04/05/21 04/05/21 04/05/21 06:08 06:08 07:26 WBC 12.9 H RBC 4.93 Hgb 13.7 L Hct 43.0 MCV 87.2 MCH 27.8 MCHC 31.9 RDW 14.2 Plt Count 307 MPV 10.2 Absolute Nucleated RBC 0.000 Nucleated RBC % (auto) 0.0 Sodium 139 Potassium 3.0 L Chloride 98 Carbon Dioxide 29 Anion Gap 15 BUN 12 Creatinine 0.70 Estim Creat Clear Calc 130.7 Estimated GFR > 60 POC Glucose 139 H Random Glucose 161 H Calcium 8.1 L Imaging Radiologist's impression: Impressions Abdomen/Pelvis CT 04/04/21 16:50 IMPRESSION: 1. The previously seen abscess involving the right-sided abdominal wall musculature has resolved. No new fluid collection. 2. Generalized anasarca. Small volume of free fluid in the pelvis. 3. Bilateral pleural effusions with bibasilar atelectasis. Progress Note: A&P Assessment and plan (1) Heart failure with reduced ejection fraction: Status: Acute Assessment and Plan: Heart failure with reduced ejection fraction secondary to severe ischemic cardiomyopathy. Clinically still fluid overloaded. Diuresing well with current therapy. Continue IV Lasix drip. Continue metoprolol today. Continue to maximize Diovan to 80 mg b.i.d.. Continue Aldactone therapy for neurohormonal modulation. Heart failure management was discussed with him. Ischemic workup at some point in time in future. (2) Paroxysmal atrial fibrillation: Status: Acute Assessment and Plan: Paroxysmal atrial fibrillation, being suppressed on amiodarone therapy but continue the same. Rhythm control should help with overall heart failure syndrome. Continue medical therapy. Continue full oral anticoagulation with direct oral anticoagulant therapy. Will follow with the patient. Thank you for allowing us to partake in his care Fall Risk Details Current Medications: Current Medications Generic Name Dose Route Start Last Admin Trade Name Gualberto PRN Reason Stop Dose Admin Acetaminophen 650 mg 04/02/21 16:34 Acetaminophen 325 Mg Tablet PO Q6H PRN Pain, Mild (Pain Scale 1-3) Amiodarone HCl 200 mg 04/03/21 09:00 04/05/21 09:03 Amiodarone Hcl 200 Mg Tablet PO 200 mg DAILY [facility] Administration Gemfibrozil 600 mg 04/02/21 21:00 04/05/21 09:03 Gemfibrozil 600 Mg Tablet PO 600 mg BID [facility] Administration Furosemide 200 mg/ Sodium 100 mls @ 2.5 mls/hr 04/04/21 11:30 04/04/21 13:02 Chloride IVCONT 5 mg/hr .Q24H [facility] 2.5 mls/hr Administration 5 MG/HR Insulin Human Lispro 0 unit 04/03/21 16:30 04/05/21 07:47 Insulin Lispro 100 Unit/Ml 3 Ml Vial SUBCUT Not Given QIDACHS [facility] Protocol Metoprolol Tartrate 25 mg 04/02/21 21:00 04/05/21 09:03 Metoprolol Tartrate 25 Mg Tablet PO 25 mg BID [facility] Administration Protocol Multivitamins/Vitamin C 1 tab 04/03/21 09:00 04/05/21 09:03 Multivitamin Tablet PO 1 tab DAILY [facility] Administration Nystatin 1 appl 04/04/21 21:00 04/05/21 09:03 Nystatin Powder 15 Gm Bottle TOPICAL 1 appl BID [facility] Administration Protocol Omeprazole 20 mg 04/03/21 06:30 04/05/21 07:22 Omeprazole 20 Mg Capsule.Dr PO Not Given BID@0630,1630 [facility] Ondansetron HCl 4 mg 04/04/21 21:36 04/04/21 22:29 Ondansetron Hcl 4 Mg/2 Ml Vial IVPUSH 4 mg Q8H PRN Administration Nausea and Vomiting Rivaroxaban 20 mg 04/04/21 11:30 04/05/21 09:03 Rivaroxaban 20 Mg Tablet PO 20 mg DAILY [facility] Administration Sodium Chloride 3 ml 04/02/21 16:34 04/05/21 09:02 0.9 % Sodium Chloride Flush 3 Ml Syringe IVFLUSH 3 ml QSHIFT [facility] Administration Spironolactone 25 mg 04/04/21 11:30 04/05/21 09:03 Spironolactone 25 Mg Tablet PO 25 mg DAILY [facility] Administration Protocol Trazodone HCl 50 mg 04/02/21 21:00 04/04/21 22:29 Trazodone Hcl 50 Mg Tablet PO 50 mg BEDTIME [facility] Administration Valsartan 40 mg 04/04/21 21:00 04/05/21 09:02 Valsartan 40 Mg Tablet PO 40 mg BID [facility] Administration Protocol Time Spent With Patient Time: Total time spent is greater than 50% in coordination of care (as documented) at patient's floor/unit and/or counseling patient: Time with patient: 25 - 35 minutes Procedures Date of Service Date of Service: 04/05/21
--- NOTE | 2021-04-05 10:54 | P.PNIM_ITS ---
Subjective Subjective Date of Service: 04/05/21 <FARHEEN Barclay - Last Filed: 04/05/21 11:10> 04/05/21 <Shelley Mike MD - Last Filed: 04/05/21 16:20> Interval History: Seen and examined this morning Has been having nausea, dry heaving, diarrhea overnight Denies abdominal pain Denies shortness of breath <FARHEEN Barclay - Last Filed: 04/05/21 11:10> Review of Systems Review of Systems: Yes all other systems are reviewed and are negative <FARHEEN Barclay - Last Filed: 04/05/21 11:10> Constitutional Constitutional: Denies chills and Denies fever(s) <FARHEEN Barclay - Last Filed: 04/05/21 11:10> Cardiovascular Cardiovascular: Denies chest pain <FARHEEN Barclay - Last Filed: 04/05/21 11:10> Respiratory Respiratory: Denies cough <FARHEEN Barclay - Last Filed: 04/05/21 11:10> Gastrointestinal Gastrointestinal: Denies abdominal pain, Reports diarrhea and Reports nausea <FARHEEN Barclay - Last Filed: 04/05/21 11:10> Physical Exam Vital Signs: Vital Signs: Last Vital Signs Temp 98.5 F 04/05/21 08:00 Pulse 93 04/05/21 09:03 Resp 22 H 04/05/21 08:00 BP 141/55 H 04/05/21 09:03 Pulse Ox 90 L 04/05/21 08:00 Body Mass Index 24.5 <FARHEEN Barclay - Last Filed: 04/05/21 11:10> Const: General: comfortable, no acute distress, alert, awake and ill appearing <FARHEEN Barclay - Last Filed: 04/05/21 11:10> Nutritional Appearance: well nourished <FARHEEN Barclay - Last Filed: 04/05/21 11:10> Orientation/consciousness: patient oriented x3 <FARHEEN Barclay - Last Filed: 04/05/21 11:10> HENMT: Head: Yes normocephalic and Yes atraumatic <FARHEEN Barclay Last Filed: 04/05/21 11:10> Eyes: Sclerae: sclerae normal <FARHEEN Barclay Last Filed: 04/05/21 11:10> Chest: Chest palpation & inspection: normal inspection of the chest <FARHEEN Barclay Last Filed: 04/05/21 11:10> Resp: Other: diminished at bases <FARHEEN Barclay - Last Filed: 04/05/21 11:10> Effort & Inspection: normal respiratory effort, no respiratory distress and no use of accessory muscles <FARHEEN Barclay - Last Filed: 04/05/21 11:10> GI: Palpation (GI): Soft to palpation and nontender <FARHEEN Barclay - Last Filed: 04/05/21 11:10> Skin: Other: chronic skin changes right lower leg. Small open abdominal wound right lateral abdomen, no surrounding erythema. Covered in dry intact dressing. <FARHEEN Barclay Last Filed: 04/05/21 11:10> Neuro: General: patient oriented x3 <FARHEEN Barclay Last Filed: 04/05/21 11:10> Cranial nerves: Yes CN's II-XII intact bilaterally and Yes Bilaterally intact EOM present <FARHEEN Barclay Last Filed: 04/05/21 11:10> Extrem: Other: s/p left BKA, right transmetatarsal amputations; lower extremity edema present <FARHEEN Barclay Last Filed: 04/05/21 11:10> Objective Data Current Medications Generic Name Dose Route Start Last Admin Trade Name Freq PRN Reason Stop Dose Admin Acetaminophen 650 mg 04/02/21 16:34 Acetaminophen 325 Mg Tablet PO Q6H PRN Pain, Mild (Pain Scale 1-3) Amiodarone HCl 200 mg 04/03/21 09:00 04/05/21 09:03 Amiodarone Hcl 200 Mg Tablet PO 200 mg DAILY [facility] Administration Gemfibrozil 600 mg 04/02/21 21:00 04/05/21 09:03 Gemfibrozil 600 Mg Tablet PO 600 mg BID [facility] Administration Furosemide 200 mg/ Sodium 100 mls @ 2.5 mls/hr 04/04/21 11:30 04/04/21 13:02 Chloride IVCONT 5 mg/hr .Q24H [facility] 2.5 mls/hr Administration 5 MG/HR Potassium Chloride 10 meq in 100 mls @ 100 mls/hr 04/05/21 11:00 IV 04/05/21 12:59 Q1H [facility] Insulin Human Lispro 0 unit 04/03/21 16:30 04/05/21 07:47 Insulin Lispro 100 Unit/Ml 3 Ml Vial SUBCUT Not Given QIDACHS [facility] Protocol Metoprolol Tartrate 25 mg 04/02/21 21:00 04/05/21 09:03 Metoprolol Tartrate 25 Mg Tablet PO 25 mg BID [facility] Administration Protocol Multivitamins/Vitamin C 1 tab 04/03/21 09:00 04/05/21 09:03 Multivitamin Tablet PO 1 tab DAILY [facility] Administration Nystatin 1 appl 04/04/21 21:00 04/05/21 09:03 Nystatin Powder 15 Gm Bottle TOPICAL 1 appl BID [facility] Administration Protocol Omeprazole 20 mg 04/03/21 06:30 04/05/21 07:22 Omeprazole 20 Mg Capsule.Dr PO Not Given BID@0630,1630 [facility] Ondansetron HCl 4 mg 04/04/21 21:36 04/04/21 22:29 Ondansetron Hcl 4 Mg/2 Ml Vial IVPUSH 4 mg Q8H PRN Administration Nausea and Vomiting Rivaroxaban 20 mg 04/04/21 11:30 04/05/21 09:03 Rivaroxaban 20 Mg Tablet PO 20 mg DAILY [facility] Administration Sodium Chloride 3 ml 04/02/21 16:34 04/05/21 09:02 0.9 % Sodium Chloride Flush 3 Ml Syringe IVFLUSH 3 ml QSHIFT [facility] Administration Spironolactone 25 mg 04/04/21 11:30 04/05/21 09:03 Spironolactone 25 Mg Tablet PO 25 mg DAILY [facility] Administration Protocol Trazodone HCl 50 mg 04/02/21 21:00 04/04/21 22:29 Trazodone Hcl 50 Mg Tablet PO 50 mg BEDTIME [facility] Administration Valsartan 80 mg 04/05/21 21:00 Valsartan 80 Mg Tablet PO BID [facility] Protocol Dannielle Palomino, PA - Last Filed: 04/05/21 11:10> Labs CBC & Chem 7: : 04/05/21 06:08 04/05/21 06:08 <FARHEEN Barclay - Last Filed: 04/05/21 11:10> Microbiology Microbiology Results: Microbiology 04/02/21 13:30 Blood - Venous Blood Culture - Preliminary No growth after 48 hours. 04/02/21 13:26 Blood - Venous Blood Culture - Preliminary No growth after 48 hours. <FARHEEN Barclay - Last Filed: 04/05/21 11:10> Assessment and Plan (1) CHF (congestive heart failure): Status: Acute <FARHEEN Barclay - Last Filed: 04/05/21 11:10> Assessment and Plan: This is a 61-year-old male with a past medical history of diabetes, peripheral arterial disease, complicated surgical course after a right lower intra-abdominal abscess secondary to ruptured appendix, known systolic heart failure with last echo in 2019 showing an EF of 25-30% who presents to the hospital complaints of progressive shortness of breath and lower extremity swelling. His presentation in the ED workup is most consistent with acute heart failure exacerbation. Acute on chronic combined systolic and diastolic CHF Repeat echo showing EF 20-25% with grade 2 diastolic dysfunction with regional wall motion abnormality Continues to have significant edema continue Lasix drip Follow Intake and output and daily weights Cardiology following, appreciate recs -increase diovan -continue aldactone Nausea, vomiting, diarrhea Started after p.o. contrast CT abdomen unremarkable -C diff pending -supportive care Hypokalemia Likely secondary to diuresis, GI losses -replace and follow Paroxysmal atrial fibrillation Continue IV amiodarone, metoprolol seen by cardiology, given high chadsVasc score, rec start AC with xarelto DM Not currently on any medication, previously on insulin but this was discontinued during previous admission due to decreased p.o. intake and episodes of hypoglycemia HBA1c 10.01 POCs primarily under 200. will hold off on long acting insulin for now and continue sliding scale coverage Likely metformin on discharge Chronic Abdominal wound -- open wound care orders per Gen surg recs -CT abdomen shows resolution of previous abscess Question of pneumonia seen on chest x-ray No cough, fever, leukocytosis to suggest infection Treated with empiric antibiotics in the ED, no indication for further antibiotics at this time Chest CT obtained, no pneumonia, 1.3cm spiculated opacity seen - will need outpatient workup. continue other chronic meds Full Code Reports his sister and brother are HCP DVT pptx, xarelto Attending-Dr. Shoemaker <FARHEEN Barclay - Last Filed: 04/05/21 11:10>
[2021-04-05] MEDS: Potassium Chloride/H20 10 MEQ/100 ML PIGGYBACK 100 MEQ IV ×2 (10:55→12:03)
[2021-04-05 11:22] LABS: Glucose, Whole Blood 133 mg/dL (60-115)
[2021-04-05 11:56] LABS: CDIFF Ag Negative (Negative); CDIFF Internal ctrl Dots and bkg OK (V); CDiff Toxin Negative (Negative)
[2021-04-05] MEDS: Furosemide 200 MG in 0.9 % Sodium Chloride 80 ML IVCONT (12:02)
[2021-04-05 16:25] LABS: Glucose, Whole Blood 127 mg/dL (60-115)
[2021-04-05] MEDS: Omeprazole 20 MG CAPSULE.DR PO (17:00)
--- NOTE | 2021-04-05 18:28 | PC.NURSE ---
Patient does not feel comfortable getting OOB to recliner or commode due to not being able to put on prosthetic due to swelling and weakness to other leg. Loose stools x 3, C-Diff negative. Patient has poor appetite today due to fear of having further incontinent stool episodes; refused lunch, ate about 50% of breakfast, but 100% of dinner. No insulin coverage required today. Potassium replaced PO and IV. No further issues.
[2021-04-05 20:27] LABS: Glucose, Whole Blood 150 mg/dL (60-115)
[2021-04-05] MEDS: traZODone HCL 50 MG TABLET PO (21:12)
[2021-04-05] MEDS: Valsartan 80 MG TABLET PO (21:12)
[2021-04-06] VITALS (9 sets, daily range): BP systolic 123–138; BP diastolic 69–83; PULSE 79–90; RESP 18–20; TEMP 36.6–37.1; O2SAT 90–92
[2021-04-06 05:37] LABS: Hematocrit 41.1 % (42-52); Hemoglobin 12.9 g/dl (14.0-18.0); Mean Corpuscular HGB Conc 31.4 g/dl (31.0-36.0); Mean Corpuscular Hemoglobin 27.6 pg (27.0-33.0); Mean Corpuscular Volume 87.8 fL (80-98); Mean Platelet Volume 10.2 fL (9.4-12.4); Platelet Count 264 X10*3/uL (160-400); Red Blood Count 4.68 X10*6/uL (4.60-5.80); Red Cell Distribution Width 14.5 % (11.0-16.0); White Blood Count 9.4 X10*3/uL (4.8-10.8)
[2021-04-06 05:39] LABS: B Type Natriuretic Peptide 1943 pg/mL (<100)
[2021-04-06 05:44] LABS: Anion Gap 13 (12-20); Blood Urea Nitrogen 14 mg/dL (9-16); Calcium 7.8 mg/dL (8.4-10.2); Carbon Dioxide 29 mmol/L (22-29); Chloride 99 mmol/L (96-108); Creatinine Clr Calc Pharmacy 108.9; Estimated Glomerular Filt Rate > 60; Glucose Random 131 mg/dL (60-115); Potassium 3.3 mmol/L (3.3-5.1); Sodium 138 mmol/L (135-145)
[2021-04-06] MEDS: Omeprazole 20 MG CAPSULE.DR PO ×2 (06:35→16:07)
[2021-04-06 07:16] LABS: Glucose, Whole Blood 136 mg/dL (60-115)
[2021-04-06] MEDS: Rivaroxaban 20 MG TABLET PO (08:51)
[2021-04-06] MEDS: 0.9 % Sodium Chloride Flush 3 ML SYRINGE IVFLUSH ×3 (08:51→21:14)
[2021-04-06] MEDS: Amiodarone HCL 200 MG TABLET PO (08:51)
[2021-04-06] MEDS: Valsartan 80 MG TABLET PO ×2 (08:51→21:12)
[2021-04-06] MEDS: gemfibroziL 600 MG TABLET PO ×2 (08:51→21:13)
[2021-04-06] MEDS: Metoprolol Tartrate 25 MG TABLET PO (08:51)
[2021-04-06] MEDS: Spironolactone 25 MG TABLET PO (08:52)
[2021-04-06] MEDS: Multivitamin TABLET 1 TAB PO (08:52)
[2021-04-06] MEDS: Nystatin Powder 15 GM BOTTLE 1 APPL TOPICAL ×2 (09:00→21:14)
[2021-04-06] MEDS: Potassium Chloride Packet 20 MEQ PACKET 40 MEQ PO (11:47)
[2021-04-06] MEDS: Furosemide 200 MG in 0.9 % Sodium Chloride 80 ML IVCONT (11:47)
[2021-04-06 11:56] LABS: Glucose, Whole Blood 159 mg/dL (60-115)
[2021-04-06] MEDS: Insulin Lispro 100 UNIT/ML 3 ML VIAL SUBCUT ×2 (12:02→16:45)
--- NOTE | 2021-04-06 12:21 | P.PNIM_ITS ---
Subjective Subjective Date of Service: 04/06/21 <FARHEEN Barclay - Last Filed: 04/06/21 12:34> 04/06/21 <Hemanth Freedman MD - Last Filed: 04/06/21 16:34> Interval History: Feeling better today, no vomiting, no diarrhea Cough productive of phlegm starting this morning Denies fever, chills <FARHEEN Barclay - Last Filed: 04/06/21 12:34> Review of Systems Review of Systems: Yes all other systems are reviewed and are negative <FARHEEN Barclay - Last Filed: 04/06/21 12:34> Constitutional Constitutional: Denies chills and Denies fever(s) <FARHEEN Barclay - Last Filed: 04/06/21 12:34> Cardiovascular Cardiovascular: Denies chest pain <FARHEEN Barclay - Last Filed: 04/06/21 12:34> Respiratory Respiratory: Reports cough <FARHEEN Barclay - Last Filed: 04/06/21 12:34> Gastrointestinal Gastrointestinal: Denies abdominal pain <FARHEEN Barclay - Last Filed: 04/06/21 12:34> Physical Exam Vital Signs: Vital Signs: Last Vital Signs Temp 97.9 F 04/06/21 07:42 Pulse 82 04/06/21 08:52 Resp 20 04/06/21 07:42 BP 131/82 04/06/21 08:52 Pulse Ox 90 L 04/06/21 07:42 Body Mass Index 24.5 <FARHEEN Barclay - Last Filed: 04/06/21 12:34> Const: General: comfortable, no acute distress, alert, awake and ill appearing <FARHEEN Barclay - Last Filed: 04/06/21 12:34> Nutritional Appearance: well nourished <FARHEEN Barclay - Last Filed: 04/06/21 12:34> Orientation/consciousness: patient oriented x3 <FARHEEN Barclay Last Filed: 04/06/21 12:34> HENMT: Head: Yes normocephalic and Yes atraumatic <FARHEEN Barclay - Last Filed: 04/06/21 12:34> Eyes: Sclerae: sclerae normal <FARHEEN Barclay Last Filed: 04/06/21 12:34> Chest: Chest palpation & inspection: normal inspection of the chest <FARHEEN Barclay Last Filed: 04/06/21 12:34> Resp: Other: diminished at bases <FARHEEN Barclay Last Filed: 04/06/21 12:34> Effort & Inspection: normal respiratory effort, no respiratory distress and no use of accessory muscles <FARHEEN Barclay Last Filed: 04/06/21 12:34> GI: Palpation (GI): Soft to palpation and nontender <FARHEEN Barclay Last Filed: 04/06/21 12:34> Skin: Other: chronic skin changes right lower leg. Small open abdominal wound right lateral abdomen, no surrounding erythema, wound packed. Covered in dry intact dressing. <FARHEEN Barclay Last Filed: 04/06/21 12:34> Neuro: General: patient oriented x3 <FARHEEN Barclay Last Filed: 04/06/21 12:34> Cranial nerves: Yes CN's II-XII intact bilaterally and Yes Bilaterally intact EOM present <FARHEEN Barclay Last Filed: 04/06/21 12:34> Extrem: Other: s/p left BKA, right transmetatarsal amputations; lower extremity edema present improving <FARHEEN Barclay Last Filed: 04/06/21 12:34> Objective Data Current Medications Generic Name Dose Route Start Last Admin Trade Name Freq PRN Reason Stop Dose Admin Acetaminophen 650 mg 04/02/21 16:34 Acetaminophen 325 Mg Tablet PO Q6H PRN Pain, Mild (Pain Scale 1-3) Amiodarone HCl 200 mg 04/03/21 09:00 04/06/21 08:51 Amiodarone Hcl 200 Mg Tablet PO 200 mg DAILY [facility] Administration Gemfibrozil 600 mg 04/02/21 21:00 04/06/21 08:51 Gemfibrozil 600 Mg Tablet PO 600 mg BID [facility] Administration Furosemide 200 mg/ Sodium 100 mls @ 2.5 mls/hr 04/04/21 11:30 04/06/21 11:47 Chloride IVCONT 5 mg/hr .Q24H [facility] 2.5 mls/hr Administration 5 MG/HR Insulin Human Lispro 0 unit 04/03/21 16:30 04/06/21 12:02 Insulin Lispro 100 Unit/Ml 3 Ml Vial SUBCUT 2 unit QIDACHS [facility] Administration Protocol Metoprolol Tartrate 25 mg 04/02/21 21:00 04/06/21 08:51 Metoprolol Tartrate 25 Mg Tablet PO 25 mg BID [facility] Administration Protocol Multivitamins/Vitamin C 1 tab 04/03/21 09:00 04/06/21 08:52 Multivitamin Tablet PO 1 tab DAILY [facility] Administration Nystatin 1 appl 04/04/21 21:00 04/06/21 09:00 Nystatin Powder 15 Gm Bottle TOPICAL 1 appl BID [facility] Administration Protocol Omeprazole 20 mg 04/03/21 06:30 04/06/21 06:35 Omeprazole 20 Mg Capsule.Dr PO 20 mg BID@4530,5450 [facility] Administration Ondansetron HCl 4 mg 04/04/21 21:36 04/04/21 22:29 Ondansetron Hcl 4 Mg/2 Ml Vial IVPUSH 4 mg Q8H PRN Administration Nausea and Vomiting Rivaroxaban 20 mg 04/04/21 11:30 04/06/21 08:51 Rivaroxaban 20 Mg Tablet PO 20 mg DAILY [facility] Administration Sodium Chloride 3 ml 04/02/21 16:34 04/06/21 08:51 0.9 % Sodium Chloride Flush 3 Ml Syringe IVFLUSH 3 ml QSHIFT [facility] Administration Spironolactone 25 mg 04/04/21 11:30 04/06/21 08:52 Spironolactone 25 Mg Tablet PO 25 mg DAILY [facility] Administration Protocol Trazodone HCl 50 mg 04/02/21 21:00 04/05/21 21:12 Trazodone Hcl 50 Mg Tablet PO 50 mg BEDTIME [facility] Administration Valsartan 80 mg 04/05/21 21:00 04/06/21 08:51 Valsartan 80 Mg Tablet PO 80 mg BID [facility] Administration Protocol <FARHEEN Barclay - Last Filed: 04/06/21 12:34> Labs CBC & Chem 7: : 04/06/21 04:17 04/06/21 04:17 <FARHEEN Barclay - Last Filed: 04/06/21 12:34> Microbiology Microbiology Results: Microbiology 04/02/21 13:30 Blood - Venous Blood Culture - Preliminary No growth after 48 hours. 04/02/21 13:26 Blood - Venous Blood Culture - Preliminary No growth after 48 hours. <FARHEEN Barclay - Last Filed: 04/06/21 12:34> Assessment and Plan (1) CHF (congestive heart failure): Status: Acute <FARHEEN Barclay - Last Filed: 04/06/21 12:34> Assessment and Plan: This is a 61-year-old male with a past medical history of diabetes, peripheral arterial disease, complicated surgical course after a right lower intra-abdominal abscess secondary to ruptured appendix, known systolic heart failure with last echo in 2019 showing an EF of 25-30% who presents to the hospital complaints of progressive shortness of breath and lower extremity swelling. His presentation in the ED workup is most consistent with acute heart failure exacerbation. Acute on chronic combined systolic and diastolic CHF Repeat echo showing EF 20-25% with grade 2 diastolic dysfunction with regional wall motion abnormality Continues to have significant edema but improving. Negative 4L, BNP tredning down Follow Intake and output and daily weights Cardiology following, appreciate recs -Continue Lasix drip -Continue diovan, aldactone, metoprolol -will need outpatient ischemic workup Nausea, vomiting, diarrhea. Resolved Started after p.o. contrast CT abdomen unremarkable -C diff negative Hypokalemia. Resolved Likely secondary to diuresis, GI losses Paroxysmal atrial fibrillation Continue IV amiodarone, metoprolol seen by cardiology, given high chadsVasc score, rec start AC with xarelto DM Not currently on any medication, previously on insulin but this was discontinued during previous admission due to decreased p.o. intake and episodes of hypoglycemia HBA1c 10.01 POCs primarily under 200. will hold off on long acting insulin for now and continue sliding scale coverage Likely metformin on discharge Chronic Abdominal wound -- open wound care orders per Gen surg recs CT abdomen shows resolution of previous abscess Question of pneumonia seen on chest x-ray on admission Treated with empiric antibiotics in the ED, no indication for further antibiotics at this time Chest CT obtained, no pneumonia, 1.3cm spiculated opacity seen - will need outpatient workup. continue other chronic meds Full Code Reports his sister and brother are HCP DVT pptx, xarelto Attending-Dr. Freedman <FARHEEN Barclay - Last Filed: 04/06/21 12:34>
--- NOTE | 2021-04-06 13:36 | P.PNCA_ITS ---
Subjective Subjective Date of Service: 04/06/21 Principal diagnosis: CHF Interval history: Patient diuresing well. Blood pressures remained stable. Complains of cough productive of whitish phlegm. His diarrhea nausea have improved. Denies any significant worsening shortness of breath. Review of Systems Constitutional: Reports no additional constitutional complaints Cardiovascular: Reports no additional cardiovascular complaints Respiratory: Reports cough and Reports excessive phlegm production Gastrointestinal: Reports no additional gastrointestinal complaints Musculoskeletal: Reports no additional musculoskeletal complaints Reports system reviewed and no additional complaints, except as documented Psychiatric: Reports no additional psychiatric complaints Hematologic/Lymphatic: Reports no additional hematologic/lymphatic complaints Physical Exam Vital Signs: Last Vital Signs Temp 97.9 F 04/06/21 07:42 Pulse 82 04/06/21 08:52 Resp 20 04/06/21 07:42 BP 131/82 04/06/21 08:52 Pulse Ox 90 L 04/06/21 07:42 Body Mass Index 24.5 Neck Neck: Yes trachea midline, Yes supple and Yes JVD Resp Effort & Inspection: decreased respiratory effort Auscultation: breath sounds absent bilateral (Bases) Cardio Palpation: abnormal PMI displaced PMI Rate: regular rate Rhythm: regular rhythm Heart sounds: S1 normal heart sound present and S2 normal heart sound present Skin General skin exam: no rashes or lesions noted Neuro General: no focal motor deficits Extrem General: No clubbing, No cyanosis and Yes edema Results Labs and Meds Result diagrams: 04/06/21 04:17 04/06/21 04:17 Lab results: Laboratory Results - last 24 hr 04/05/21 04/05/21 04/06/21 15:32 19:57 04:17 WBC 9.4 RBC 4.68 Hgb 12.9 L Hct 41.1 L MCV 87.8 MCH 27.6 MCHC 31.4 RDW 14.5 Plt Count 264 MPV 10.2 Absolute Nucleated RBC 0.000 Nucleated RBC % (auto) 0.0 Sodium Potassium Chloride Carbon Dioxide Anion Gap BUN Creatinine Estim Creat Clear Calc Estimated GFR POC Glucose 127 H 150 H Random Glucose Calcium B-Natriuretic Peptide 04/06/21 04/06/21 04/06/21 04:17 04:17 07:04 WBC RBC Hgb Hct MCV MCH MCHC RDW Plt Count MPV Absolute Nucleated RBC Nucleated RBC % (auto) Sodium 138 Potassium 3.3 Chloride 99 Carbon Dioxide 29 Anion Gap 13 BUN 14 Creatinine 0.84 Estim Creat Clear Calc 108.9 Estimated GFR > 60 POC Glucose 136 H Random Glucose 131 H Calcium 7.8 L B-Natriuretic Peptide 1943 H 04/06/21 11:47 WBC RBC Hgb Hct MCV MCH MCHC RDW Plt Count MPV Absolute Nucleated RBC Nucleated RBC % (auto) Sodium Potassium Chloride Carbon Dioxide Anion Gap BUN Creatinine Estim Creat Clear Calc Estimated GFR POC Glucose 159 H Random Glucose Calcium B-Natriuretic Peptide Imaging Radiologist's impression: Impressions Chest X-Ray 04/06/21 10:20 IMPRESSION: Interval improvement in right lower lung opacities suggesting improving pleural effusion and associated atelectasis. The left pleural effusion is not visualized. Progress Note: A&P Assessment and plan (1) Heart failure with reduced ejection fraction: Status: Acute Assessment and Plan: Gradually improving heart failure excessive aeration in a patient with severe ischemic cardiomyopathy. Continue IV diuresis with Lasix drip. Diuresis is adequate at this point time. Strict intake and output chart needs to be pursued. Continue current valsartan, Aldactone dose. Will switch metoprolol to carvedilol therapy. Continue to trend BMP and BNP. Heart failure management was discussed with him. He understands agrees. Eventually require ischemic workup for his ischemic cardiomyopathy. (2) Paroxysmal atrial fibrillation: Status: Acute Assessment and Plan: Paroxysmal atrial fibrillation has remained suppressed on amiodarone therapy. Has done well with rhythm control approach. Continue the same. This should overall help with his heart failure syndrome. Continue full oral anticoagulation given his prior CVA, currently on Xarelto. Will follow with the patient. Thank you for allowing us to partake in his care Fall Risk Details Current Medications: Current Medications Generic Name Dose Route Start Last Admin Trade Name Freq PRN Reason Stop Dose Admin Acetaminophen 650 mg 04/02/21 16:34 Acetaminophen 325 Mg Tablet PO Q6H PRN Pain, Mild (Pain Scale 1-3) Amiodarone HCl 200 mg 04/03/21 09:00 04/06/21 08:51 Amiodarone Hcl 200 Mg Tablet PO 200 mg DAILY [facility] Administration Gemfibrozil 600 mg 04/02/21 21:00 04/06/21 08:51 Gemfibrozil 600 Mg Tablet PO 600 mg BID [facility] Administration Furosemide 200 mg/ Sodium 100 mls @ 2.5 mls/hr 04/04/21 11:30 04/06/21 11:47 Chloride IVCONT 5 mg/hr .Q24H [facility] 2.5 mls/hr Administration 5 MG/HR Insulin Human Lispro 0 unit 04/03/21 16:30 04/06/21 12:02 Insulin Lispro 100 Unit/Ml 3 Ml Vial SUBCUT 2 unit QIDACHS [facility] Administration Protocol Metoprolol Tartrate 25 mg 04/02/21 21:00 04/06/21 08:51 Metoprolol Tartrate 25 Mg Tablet PO 25 mg BID [facility] Administration Protocol Multivitamins/Vitamin C 1 tab 04/03/21 09:00 04/06/21 08:52 Multivitamin Tablet PO 1 tab DAILY [facility] Administration Nystatin 1 appl 04/04/21 21:00 04/06/21 09:00 Nystatin Powder 15 Gm Bottle TOPICAL 1 appl BID [facility] Administration Protocol Omeprazole 20 mg 04/03/21 06:30 04/06/21 06:35 Omeprazole 20 Mg Capsule.Dr PO 20 mg BID@5809,8910 [facility] Administration Ondansetron HCl 4 mg 04/04/21 21:36 04/04/21 22:29 Ondansetron Hcl 4 Mg/2 Ml Vial IVPUSH 4 mg Q8H PRN Administration Nausea and Vomiting Rivaroxaban 20 mg 04/04/21 11:30 04/06/21 08:51 Rivaroxaban 20 Mg Tablet PO 20 mg DAILY [facility] Administration Sodium Chloride 3 ml 04/02/21 16:34 04/06/21 08:51 0.9 % Sodium Chloride Flush 3 Ml Syringe IVFLUSH 3 ml QSHIFT [facility] Administration Spironolactone 25 mg 04/04/21 11:30 04/06/21 08:52 Spironolactone 25 Mg Tablet PO 25 mg DAILY [facility] Administration Protocol Trazodone HCl 50 mg 04/02/21 21:00 04/05/21 21:12 Trazodone Hcl 50 Mg Tablet PO 50 mg BEDTIME [facility] Administration Valsartan 80 mg 04/05/21 21:00 04/06/21 08:51 Valsartan 80 Mg Tablet PO 80 mg BID [facility] Administration Protocol Time Spent With Patient Time: Total time spent is greater than 50% in coordination of care (as documented) at patient's floor/unit and/or counseling patient: Time with patient: 15 - 24 minutes Procedures Date of Service Date of Service: 04/06/21
[2021-04-06] MEDS: guaiFENesin DM 200/20/10 ML 10 ML SYRUP PO ×2 (16:07→22:15)
[2021-04-06 16:43] LABS: Glucose, Whole Blood 177 mg/dL (60-115)
--- NOTE | 2021-04-06 18:34 | PC.NURSE ---
Patient able to stand/pivot to commode. Diarrhea x 1 today. Patient met sodium and carb allowance for dinner and was not able to have what he wanted; he skipped dinner despite education re importance of eating. Potassium replacement given. PRN cough syrup ordered. Chest x-ray completed. No further issues.
[2021-04-06 20:48] LABS: Glucose, Whole Blood 127 mg/dL (60-115)
[2021-04-06] MEDS: carvediloL 6.25 MG TABLET PO (21:11)
[2021-04-06] MEDS: traZODone HCL 50 MG TABLET PO (21:12)
[2021-04-06] MEDS: diphenhydrAMINE HCL 50 MG/ML VIAL 25 MG IVPUSH (23:33)
[2021-04-07] VITALS (9 sets, daily range): BP systolic 137–149; BP diastolic 68–90; PULSE 79–90; RESP 18–20; TEMP 36.2–36.9; O2SAT 93–95
[2021-04-07] MEDS: Omeprazole 20 MG CAPSULE.DR PO ×2 (05:34→16:01)
[2021-04-07] MEDS: guaiFENesin DM 200/20/10 ML 10 ML SYRUP PO ×2 (05:34→20:47)
[2021-04-07 07:29] LABS: Glucose, Whole Blood 117 mg/dL (60-115)
[2021-04-07 08:07] LABS: Anion Gap 14 (12-20); Blood Urea Nitrogen 17 mg/dL (9-16); Carbon Dioxide 31 mmol/L (22-29); Chloride 98 mmol/L (96-108); Creatinine Clr Calc Pharmacy 115.8; Estimated Glomerular Filt Rate > 60; Glucose Random 106 mg/dL (60-115); Potassium 3.3 mmol/L (3.3-5.1); Sodium 140 mmol/L (135-145)
[2021-04-07] MEDS: Rivaroxaban 20 MG TABLET PO (08:14)
[2021-04-07] MEDS: gemfibroziL 600 MG TABLET PO ×2 (08:14→20:44)
[2021-04-07] MEDS: Valsartan 80 MG TABLET PO ×2 (08:14→20:45)
[2021-04-07] MEDS: Spironolactone 25 MG TABLET PO (08:14)
[2021-04-07] MEDS: carvediloL 6.25 MG TABLET PO ×2 (08:14→20:44)
[2021-04-07] MEDS: Multivitamin TABLET 1 TAB PO (08:14)
[2021-04-07] MEDS: Amiodarone HCL 200 MG TABLET PO (08:15)
[2021-04-07] MEDS: Nystatin Powder 15 GM BOTTLE 1 APPL TOPICAL ×2 (08:30→20:43)
--- NOTE | 2021-04-07 10:38 | P.PNCA_ITS ---
Subjective Subjective Date of Service: 04/07/21 Principal diagnosis: CHF Interval history: Patient states that he feels okay. No specific complaints. Review of Systems Review of Systems Yes all other systems are reviewed and are negative Cardiovascular: Reports as per HPI, Reports no additional cardiovascular complaints, Denies acrocyanosis, Denies cool extremities, Denies painful fingertips, Denies chest pain, Denies chest pain at rest, Denies diaphoresis, Denies syncope, Denies irregular heart rhythm, Denies claudication, Denies leg edema, Denies lightheadedness, Denies palpitations and Denies dyspnea Respiratory: Denies dyspnea Denies syncope Endocrine: Denies palpitations Physical Exam Vital Signs: Last Vital Signs Temp 97.8 F 04/07/21 07:06 Pulse 82 04/07/21 08:15 Resp 19 04/07/21 07:06 BP 149/87 H 04/07/21 08:15 Pulse Ox 95 04/07/21 07:06 Body Mass Index 24.5 Const General: cooperative, comfortable and no acute distress Orientation/consciousness: patient oriented x3 HENAL Other: Unremarkable Neck Neck: Yes normal visual inspection Chest Chest palpation & inspection: normal inspection of the chest Resp Auscultation: crackles and no wheezes Cardio Jugular venous distension: no JVD Palpation: normal PMI Heart sounds: S1 normal heart sound present, S2 normal heart sound present, no gallops, no murmurs and no rubs GI Palpation (GI): Soft to palpation Back/Spine/Pelvis Other: unremarkable Skin General skin exam: no rashes or lesions noted Neuro General: patient oriented x3 Extrem Other: Left below-knee amputation and right transmetatarsal amputation. Psych Mental Status: mental status grossly normal Results Labs and Meds Result diagrams: 04/06/21 04:17 04/07/21 05:53 Lab results: Laboratory Results - last 24 hr 04/06/21 04/06/21 04/06/21 11:47 16:33 20:41 Sodium Potassium Chloride Carbon Dioxide Anion Gap BUN Creatinine Estim Creat Clear Calc Estimated GFR POC Glucose 159 H 177 H 127 H Random Glucose Calcium 04/07/21 04/07/21 05:53 07:07 Sodium 140 Potassium 3.3 Chloride 98 Carbon Dioxide 31 H Anion Gap 14 BUN 17 H Creatinine 0.79 Estim Creat Clear Calc 115.8 Estimated GFR > 60 POC Glucose 117 H Random Glucose 106 Calcium 8.0 L Progress Note: A&P Assessment and plan (1) Ischemic cardiomyopathy: Status: Acute (2) Acute on chronic systolic (congestive) heart failure: Status: Acute (3) Paroxysmal atrial fibrillation: Status: Acute Assessment and Plan: Clinically, he seems to be improving. Not much of volume overload on examination. Could switch him to oral diuretics. Otherwise, continue carvedilol and valsartan. Also on amiodarone. On Xarelto. Will eventually need ischemia evaluation as an outpatient. Fall Risk Details Current Medications: Current Medications Generic Name Dose Route Start Last Admin Trade Name Freq PRN Reason Stop Dose Admin Acetaminophen 650 mg 04/02/21 16:34 Acetaminophen 325 Mg Tablet PO Q6H PRN Pain, Mild (Pain Scale 1-3) Amiodarone HCl 200 mg 04/03/21 09:00 04/07/21 08:15 Amiodarone Hcl 200 Mg Tablet PO 200 mg DAILY [facility] Administration Carvedilol 6.25 mg 04/06/21 21:00 04/07/21 08:14 Carvedilol 6.25 Mg Tablet PO 6.25 mg BID [facility] Administration Protocol Gemfibrozil 600 mg 04/02/21 21:00 04/07/21 08:14 Gemfibrozil 600 Mg Tablet PO 600 mg BID [facility] Administration Guaifenesin/Dextromethorphan 10 ml 04/06/21 13:43 04/07/21 05:34 Guaifenesin Dm 200/20/10 Ml 10 Ml Syrup PO 10 ml Q6H PRN Administration Cough Furosemide 200 mg/ Sodium 100 mls @ 2.5 mls/hr 04/04/21 11:30 04/06/21 11:47 Chloride IVCONT 5 mg/hr .Q24H [facility] 2.5 mls/hr Administration 5 MG/HR Insulin Human Lispro 0 unit 04/03/21 16:30 04/07/21 07:50 Insulin Lispro 100 Unit/Ml 3 Ml Vial SUBCUT Not Given QIDACHS [facility] Protocol Multivitamins/Vitamin C 1 tab 04/03/21 09:00 04/07/21 08:14 Multivitamin Tablet PO 1 tab DAILY [facility] Administration Nystatin 1 appl 04/04/21 21:00 04/07/21 08:30 Nystatin Powder 15 Gm Bottle TOPICAL 1 appl BID [facility] Administration Protocol Omeprazole 20 mg 04/03/21 06:30 04/07/21 05:34 Omeprazole 20 Mg Capsule.Dr PO 20 mg BID@0630,9130 [facility] Administration Ondansetron HCl 4 mg 04/04/21 21:36 04/04/21 22:29 Ondansetron Hcl 4 Mg/2 Ml Vial IVPUSH 4 mg Q8H PRN Administration Nausea and Vomiting Rivaroxaban 20 mg 04/04/21 11:30 04/07/21 08:14 Rivaroxaban 20 Mg Tablet PO 20 mg DAILY [facility] Administration Sodium Chloride 3 ml 04/02/21 16:34 04/07/21 08:25 0.9 % Sodium Chloride Flush 3 Ml Syringe IVFLUSH Not Given QSHIFT [facility] Spironolactone 25 mg 04/04/21 11:30 04/07/21 08:14 Spironolactone 25 Mg Tablet PO 25 mg DAILY [facility] Administration Protocol Trazodone HCl 50 mg 04/02/21 21:00 04/06/21 21:12 Trazodone Hcl 50 Mg Tablet PO 50 mg BEDTIME [facility] Administration Valsartan 80 mg 04/05/21 21:00 04/07/21 08:14 Valsartan 80 Mg Tablet PO 80 mg BID [facility] Administration Protocol Time Spent With Patient Time: Total time spent is greater than 50% in coordination of care (as documented) at patient's floor/unit and/or counseling patient: Time with patient: less than 15 minutes Procedures Date of Service Date of Service: 04/07/21
[2021-04-07 11:02] LABS: Glucose, Whole Blood 114 mg/dL (60-115)
[2021-04-07] MEDS: Furosemide 200 MG in 0.9 % Sodium Chloride 80 ML IVCONT (11:36)
--- NOTE | 2021-04-07 13:55 | MHC.CM.PN ---
Male 61 DX C diff GI bleed DP is to [facility] for STR. He will transport via BLS. CM will follow.
--- NOTE | 2021-04-07 15:26 | MHC.CM.PN ---
per rounds no dc date date at this time plan remains home with resumption of hvns
[2021-04-07] MEDS: 0.9 % Sodium Chloride Flush 3 ML SYRINGE IVFLUSH ×2 (15:55→20:44)
[2021-04-07 16:18] LABS: Glucose, Whole Blood 104 mg/dL (60-115)
--- NOTE | 2021-04-07 16:34 | HO.PM.IMPN ---
Subjective Subjective Date of Service: 04/07/21 Interval History: Denies shortness of breath, was doing fine in regard to diarrhea but noted to have large liquidy stool this a.m. denies abdominal pain no fever no chills, not on antibiotic. ros General no headache, no dizziness no fever chills. CVS no chest pain, no palpitation. Respiratory no cough no sob. Gastrointestinal no nausea no vomiting, no abdominal pain Physical Exam Vital Signs: Vital Signs: Last Vital Signs Temp 97.2 F 04/07/21 15:17 Pulse 82 04/07/21 15:17 Resp 20 04/07/21 15:17 BP 145/76 H 04/07/21 15:17 Pulse Ox 95 04/07/21 15:17 Body Mass Index 24.5 General patient resting comfortably in no acute distress. Neck supple no JVD. CVS regular rate rhythm, Respiratory lungs clear to auscultation, no respiratory distress, no wheeze, no rhonchi. Gastrointestinal abdomen soft, nontender, bowel sounds audible, small open abdominal wound right lateral abdomen, no guarding , no rigidity. Extremities left BKA, low left lower extremity edema improved Neuro nonfocal Skin no rash Objective Data Current Medications Generic Name Dose Route Start Last Admin Trade Name Freq PRN Reason Stop Dose Admin Acetaminophen 650 mg 04/02/21 16:34 Acetaminophen 325 Mg Tablet PO Q6H PRN Pain, Mild (Pain Scale 1-3) Amiodarone HCl 200 mg 04/03/21 09:00 04/07/21 08:15 Amiodarone Hcl 200 Mg Tablet PO 200 mg DAILY [facility] Administration Carvedilol 6.25 mg 04/06/21 21:00 04/07/21 08:14 Carvedilol 6.25 Mg Tablet PO 6.25 mg BID [facility] Administration Protocol Furosemide 40 mg 04/07/21 18:00 Furosemide 40 Mg Tablet PO BID@0900,1800 [facility] Protocol Gemfibrozil 600 mg 04/02/21 21:00 04/07/21 08:14 Gemfibrozil 600 Mg Tablet PO 600 mg BID [facility] Administration Guaifenesin/Dextromethorphan 10 ml 04/06/21 13:43 04/07/21 05:34 Guaifenesin Dm 200/20/10 Ml 10 Ml Syrup PO 10 ml Q6H PRN Administration Cough Insulin Human Lispro 0 unit 04/03/21 16:30 04/07/21 16:33 Insulin Lispro 100 Unit/Ml 3 Ml Vial SUBCUT Not Given QIDACHS [facility] Protocol Multivitamins/Vitamin C 1 tab 04/03/21 09:00 04/07/21 08:14 Multivitamin Tablet PO 1 tab DAILY [facility] Administration Nystatin 1 appl 04/04/21 21:00 04/07/21 08:30 Nystatin Powder 15 Gm Bottle TOPICAL 1 appl BID [facility] Administration Protocol Omeprazole 20 mg 04/03/21 06:30 04/07/21 16:01 Omeprazole 20 Mg Capsule. PO 20 mg BID@0630,1630 [facility] Administration Ondansetron HCl 4 mg 04/04/21 21:36 04/04/21 22:29 Ondansetron Hcl 4 Mg/2 Ml Vial IVPUSH 4 mg Q8H PRN Administration Nausea and Vomiting Rivaroxaban 20 mg 04/04/21 11:30 04/07/21 08:14 Rivaroxaban 20 Mg Tablet PO 20 mg DAILY [facility] Administration Sodium Chloride 3 ml 04/02/21 16:34 04/07/21 15:55 0.9 % Sodium Chloride Flush 3 Ml Syringe IVFLUSH 3 ml QSHIFT [facility] Administration Spironolactone 25 mg 04/04/21 11:30 04/07/21 08:14 Spironolactone 25 Mg Tablet PO 25 mg DAILY [facility] Administration Protocol Trazodone HCl 50 mg 04/02/21 21:00 04/06/21 21:12 Trazodone Hcl 50 Mg Tablet PO 50 mg BEDTIME [facility] Administration Valsartan 80 mg 04/05/21 21:00 04/07/21 08:14 Valsartan 80 Mg Tablet PO 80 mg BID [facility] Administration Protocol Labs CBC & Chem 7: 04/06/21 04:17 04/07/21 05:53 Microbiology Microbiology Results: Microbiology 04/02/21 13:30 Blood - Venous Blood Culture - Final No growth after 5 days. 04/02/21 13:26 Blood - Venous Blood Culture - Final No growth after 5 days. Assessment and Plan (1) Acute on chronic systolic (congestive) heart failure: Status: Acute (2) Paroxysmal atrial fibrillation: Status: Acute (3) Ischemic cardiomyopathy: Status: Acute (4) Diabetes: Status: Acute (5) Diarrhea: Status: Acute Assessment and Plan: 61-year-old male with a past medical history of diabetes, peripheral arterial disease, complicated surgical course after a right lower intra-abdominal abscess secondary to ruptured appendix, known systolic heart failure with last echo in 2019 showing an EF of 25-30% who presents to the hospital complaints of progressive shortness of breath and lower extremity swelling. His presentation in the ED workup is most consistent with acute heart failure exacerbation. Acute on chronic combined systolic and diastolic CHF Feels better denies shortness of breath, less edema no PND, no orthopnea Repeat echo showing EF 20-25% with grade 2 diastolic dysfunction with regional wall motion abnormality edema improving. Negative 6L, BNP tredning down, case discussed with Dr. Pleitez he recommend to DC Lasix drip and place patient back on by mouth Lasix Follow Intake and output and daily weights Continue diovan, aldactone, metoprolol will need outpatient ischemic workup. Nausea, vomiting, Resolved, had 1 bout of loose watery stool today, C diff negative,CT abdomen unremarkable if diarrhea persists will recheck C diff, normal WBC, no fevers Hypokalemia. Resolved Likely secondary to diuresis, GI losses Paroxysmal atrial fibrillation Continue po amiodarone, metoprolol seen by cardiology, given high chadsVasc score, rec AC continue xarelto DM Not currently on any medication, previously on insulin but this was discontinued during previous admission due to decreased p.o. intake and episodes of hypoglycemia HBA1c 10.01 POCs primarily under 200. One hundred for this morning, continue sliding scale coverage hold Lantus,Likely metformin on discharge Chronic Abdominal wound -- open wound care orders per Gen surg recs, CT abdomen shows resolution of previous abscess Question of pneumonia seen on chest x-ray on admission Treated with empiric antibiotics in the ED, no indication for further antibiotics at this time, repeat chest x-ray showed improvement in right base infiltrate Chest CT showed 1.3cm spiculated opacity - will need outpatient workup. Full Code Reports his sister and brother are HCP
[2021-04-07] MEDS: Furosemide 40 MG TABLET PO (17:17)
[2021-04-07 20:34] LABS: Glucose, Whole Blood 149 mg/dL (60-115)
[2021-04-07] MEDS: traZODone HCL 50 MG TABLET PO (20:44)
[2021-04-08] VITALS (9 sets, daily range): BP systolic 119–153; BP diastolic 67–87; PULSE 73–85; RESP 18–20; TEMP 36.3–36.8; O2SAT 94–95
[2021-04-08] MEDS: Omeprazole 20 MG CAPSULE.DR PO ×2 (06:01→16:26)
[2021-04-08 07:11] LABS: B Type Natriuretic Peptide 2257 pg/mL (<100)
[2021-04-08 07:20] LABS: Anion Gap 14 (12-20); Blood Urea Nitrogen 13 mg/dL (9-16); Calcium 7.8 mg/dL (8.4-10.2); Carbon Dioxide 31 mmol/L (22-29); Chloride 98 mmol/L (96-108); Creatinine Clr Calc Pharmacy 130.7; Estimated Glomerular Filt Rate > 60; Glucose Random 171 mg/dL (60-115); Potassium 3.1 mmol/L (3.3-5.1); Sodium 140 mmol/L (135-145)
[2021-04-08 07:21] LABS: Glucose, Whole Blood 164 mg/dL (60-115)
[2021-04-08] MEDS: Insulin Lispro 100 UNIT/ML 3 ML VIAL SUBCUT (08:07)
[2021-04-08] MEDS: 0.9 % Sodium Chloride Flush 3 ML SYRINGE IVFLUSH ×3 (08:08→21:21)
[2021-04-08] MEDS: Furosemide 40 MG TABLET PO (08:09)
[2021-04-08] MEDS: gemfibroziL 600 MG TABLET PO ×2 (08:09→21:20)
[2021-04-08] MEDS: Multivitamin TABLET 1 TAB PO (08:09)
[2021-04-08] MEDS: Rivaroxaban 20 MG TABLET PO (08:10)
[2021-04-08] MEDS: Spironolactone 25 MG TABLET PO (08:10)
[2021-04-08] MEDS: Valsartan 80 MG TABLET PO ×2 (08:10→21:21)
[2021-04-08] MEDS: Amiodarone HCL 200 MG TABLET PO (08:11)
[2021-04-08] MEDS: carvediloL 6.25 MG TABLET PO ×2 (08:11→21:20)
[2021-04-08] MEDS: Nystatin Powder 15 GM BOTTLE 1 APPL TOPICAL ×2 (08:12→21:23)
[2021-04-08 11:18] LABS: Glucose, Whole Blood 82 mg/dL (60-115)
[2021-04-08 11:59] LABS: CDIFF Ag Positive (Negative); CDIFF Internal ctrl Dots and bkg OK (V); CDiff Toxin Negative (Negative)
[2021-04-08] MEDS: Potassium Chloride ER 20 MEQ TAB.ER.PRT 40 MEQ PO (12:31)
[2021-04-08] MEDS: Loperamide HCl 2 MG CAPSULE PO (12:31)
[2021-04-08] MEDS: Potassium Chloride/H20 10 MEQ/100 ML PIGGYBACK 100 MEQ IV ×2 (12:31→14:20)
[2021-04-08 12:44] LABS: CDiff Gene PCR NEGATIVE (Negative)
--- NOTE | 2021-04-08 15:52 | HO.PM.IMPN ---
Subjective Subjective Date of Service: 04/08/21 Interval History: Patient had 2 episodes of liquidy stool this morning, denies abdominal pain no fever no chills denies shortness of breath no other acute issues overnight had 2 similar episodes yesterday. ros General no headache, no dizziness no fever chills. CVS no chest pain, no palpitation. Respiratory no cough no sob. Gastrointestinal no nausea no vomiting, no abdominal pain, diarrhea as above Physical Exam Vital Signs: Vital Signs: Last Vital Signs Temp 97.9 F 04/08/21 15:19 Pulse 75 04/08/21 15:19 Resp 20 04/08/21 15:19 BP 120/68 04/08/21 15:19 Pulse Ox 95 04/08/21 15:19 Body Mass Index 24.5 General resting comfortably in no acute distress. Neck supple no JVD. CVS regular rate rhythm, Respiratory lungs clear to auscultation, no respiratory distress, no wheeze, no rhonchi. Gastrointestinal abdomen soft, nontender, bowel sounds audible, small open abdominal wound right lateral abdomen, no guarding , no rigidity. Extremities left BKA, low left lower extremity edema resolved Neuro nonfocal Skin no rash Objective Data Current Medications Generic Name Dose Route Start Last Admin Trade Name Freq PRN Reason Stop Dose Admin Acetaminophen 650 mg 04/02/21 16:34 Acetaminophen 325 Mg Tablet PO Q6H PRN Pain, Mild (Pain Scale 1-3) Amiodarone HCl 200 mg 04/03/21 09:00 04/08/21 08:11 Amiodarone Hcl 200 Mg Tablet PO 200 mg DAILY [facility] Administration Carvedilol 6.25 mg 04/06/21 21:00 04/08/21 08:11 Carvedilol 6.25 Mg Tablet PO 6.25 mg BID [facility] Administration Protocol Furosemide 40 mg 04/09/21 09:00 Furosemide 40 Mg Tablet PO DAILY [facility] Protocol Gemfibrozil 600 mg 04/02/21 21:00 04/08/21 08:09 Gemfibrozil 600 Mg Tablet PO 600 mg BID [facility] Administration Guaifenesin/Dextromethorphan 10 ml 04/06/21 13:43 04/07/21 20:47 Guaifenesin Dm 200/20/10 Ml 10 Ml Syrup PO 10 ml Q6H PRN Administration Cough Insulin Human Lispro 0 unit 04/03/21 16:30 04/08/21 12:27 Insulin Lispro 100 Unit/Ml 3 Ml Vial SUBCUT Not Given QIDACHS [facility] Protocol Multivitamins/Vitamin C 1 tab 04/03/21 09:00 04/08/21 08:09 Multivitamin Tablet PO 1 tab DAILY [facility] Administration Nystatin 1 appl 04/04/21 21:00 04/08/21 08:12 Nystatin Powder 15 Gm Bottle TOPICAL 1 appl BID [facility] Administration Protocol Omeprazole 20 mg 04/03/21 06:30 04/08/21 06:01 Omeprazole 20 Mg Capsule.Dr PO 20 mg BID@0630,5950 [facility] Administration Ondansetron HCl 4 mg 04/04/21 21:36 04/04/21 22:29 Ondansetron Hcl 4 Mg/2 Ml Vial IVPUSH 4 mg Q8H PRN Administration Nausea and Vomiting Rivaroxaban 20 mg 04/04/21 11:30 04/08/21 08:10 Rivaroxaban 20 Mg Tablet PO 20 mg DAILY [facility] Administration Sodium Chloride 3 ml 04/02/21 16:34 04/08/21 08:08 0.9 % Sodium Chloride Flush 3 Ml Syringe IVFLUSH 3 ml QSHIFT [facility] Administration Spironolactone 25 mg 04/04/21 11:30 04/08/21 08:10 Spironolactone 25 Mg Tablet PO 25 mg DAILY [facility] Administration Protocol Trazodone HCl 50 mg 04/02/21 21:00 04/07/21 20:44 Trazodone Hcl 50 Mg Tablet PO 50 mg BEDTIME [facility] Administration Valsartan 80 mg 04/05/21 21:00 04/08/21 08:10 Valsartan 80 Mg Tablet PO 80 mg BID [facility] Administration Protocol Vancomycin HCl 125 mg 04/08/21 16:00 Vancomycin Hcl 125 Mg Capsule PO Q6H [facility] Labs CBC & Chem 7: 04/06/21 04:17 04/08/21 05:33 Microbiology Microbiology Results: Microbiology 04/02/21 13:30 Blood - Venous Blood Culture - Final No growth after 5 days. 04/02/21 13:26 Blood - Venous Blood Culture - Final No growth after 5 days. Assessment and Plan (1) Acute on chronic systolic (congestive) heart failure: Status: Acute (2) Diarrhea: Status: Acute (3) Paroxysmal atrial fibrillation: Status: Acute (4) Ischemic cardiomyopathy: Status: Acute (5) Diabetes: Status: Acute Assessment and Plan: 61-year-old male with a past medical history of diabetes, peripheral arterial disease, complicated surgical course after a right lower intra-abdominal abscess secondary to ruptured appendix, known systolic heart failure with last echo in 2019 showing an EF of 25-30% who presents to the hospital complaints of progressive shortness of breath and lower extremity swelling. His presentation in the ED workup is most consistent with acute heart failure exacerbation. Acute on chronic combined systolic and diastolic CHF Feels better no shortness of breath leg edema resolved,no PND, no orthopnea Repeat echo showing EF 20-25% with grade 2 diastolic dysfunction with regional wall motion abnormality >6L negative, BNP tredning down, Lasix 40 mg daily Follow Intake and output and daily weights Continue diovan, aldactone, and metoprolol will need outpatient ischemic workup. Diarrhea patient with recurrent diarrhea yellow colored no foul odor no fevers normal WBC, repeat C diff from this morning showed positive antigen PCR pending Will place patient on vancomycin due to persistent diarrhea and follow PCR Hypokalemia. Likely secondary to diuresis, GI losses will aggressively replace both IV and by mouth follow labs at a.m. Paroxysmal atrial fibrillation Continue po amiodarone, metoprolol seen by cardiology, given high chadsVasc score, rec AC continue xarelto DM Not currently on any medication, previously on insulin but this was discontinued during previous admission due to decreased p.o. intake and episodes of hypoglycemia HBA1c 10.01 POCs primarily under 200. continue sliding scale coverage hold Lantus,Likely metformin on discharge, Chronic Abdominal wound wound care orders per Gen surg recs, CT abdomen shows resolution of previous abscess Question of pneumonia seen on chest x-ray on admission Treated with empiric antibiotics in the ED, no indication for further antibiotics , repeat chest x-ray showed improvement in right base infiltrate Chest CT showed 1.3cm spiculated opacity -informed this to patient and recommend outpatient follow-up. Full Code Reports his sister and brother are HCP
[2021-04-08 16:06] LABS: Glucose, Whole Blood 134 mg/dL (60-115)
[2021-04-08] MEDS: guaiFENesin DM 200/20/10 ML 10 ML SYRUP PO ×2 (16:42→23:11)
[2021-04-08] MEDS: metroNIDAZOLE 500 MG TABLET PO (17:32)
[2021-04-08 21:15] LABS: Glucose, Whole Blood 150 mg/dL (60-115)
[2021-04-08] MEDS: traZODone HCL 50 MG TABLET PO (21:20)
[2021-04-08] MEDS: diphenhydrAMINE HCL 25 MG TABLET PO (23:12)
[2021-04-09] VITALS (10 sets, daily range): BP systolic 108–146; BP diastolic 62–85; PULSE 67–83; RESP 15–20; TEMP 36–37.2; O2SAT 92–95
[2021-04-09] MEDS: metroNIDAZOLE 500 MG TABLET PO ×3 (02:23→16:24)
[2021-04-09] MEDS: Omeprazole 20 MG CAPSULE.DR PO ×2 (05:23→16:24)
[2021-04-09 06:13] LABS: MANUAL DIFF FLAG NO
[2021-04-09 06:31] LABS: Basophils Percent Auto 0.2 % (0-2); Eosinophils Absolute Auto 0.2 X10*3/uL (0.0-0.4); Eosinophils Percent Auto 2.6 % (0-4); Hematocrit 43.4 % (42-52); Hemoglobin 13.7 g/dl (14.0-18.0); Imm Gran Abs Auto 0.05 X10*3/uL (0.00-0.03); Imm Gran Pct Auto 0.6 % (0.0-0.4); Lymphocytes Absolute Auto 1.4 X10*3/uL (1.2-4.9); Lymphocytes Percent Auto 15.7 % (20-40); Mean Corpuscular HGB Conc 31.6 g/dl (31.0-36.0); Mean Corpuscular Hemoglobin 27.7 pg (27.0-33.0); Mean Corpuscular Volume 87.7 fL (80-98); Mean Platelet Volume 10.2 fL (9.4-12.4); Monocytes Absolute Auto 0.6 X10*3/uL (0.1-1.2); Monocytes Percent Auto 6.8 % (2-11); Neutrophils Absolute Auto 6.5 X10*3/uL (2.0-8.3); Neutrophils Percent Auto 74.1 % (45-73); Platelet Count 266 X10*3/uL (160-400); Red Blood Count 4.95 X10*6/uL (4.60-5.80); Red Cell Distribution Width 14.6 % (11.0-16.0); White Blood Count 8.7 X10*3/uL (4.8-10.8)
[2021-04-09 06:46] LABS: Anion Gap 12 (12-20); Blood Urea Nitrogen 10 mg/dL (9-16); Calcium 7.8 mg/dL (8.4-10.2); Carbon Dioxide 34 mmol/L (22-29); Chloride 98 mmol/L (96-108); Creatinine Clr Calc Pharmacy 127.1; Estimated Glomerular Filt Rate > 60; Glucose Random 133 mg/dL (60-115); Potassium 3.4 mmol/L (3.3-5.1); Sodium 141 mmol/L (135-145)
[2021-04-09 07:25] LABS: Glucose, Whole Blood 156 mg/dL (60-115)
[2021-04-09] MEDS: Valsartan 80 MG TABLET PO ×2 (07:55→21:38)
[2021-04-09] MEDS: Rivaroxaban 20 MG TABLET PO (07:55)
[2021-04-09] MEDS: Furosemide 40 MG TABLET PO (07:56)
[2021-04-09] MEDS: carvediloL 6.25 MG TABLET PO ×2 (07:57→21:39)
[2021-04-09] MEDS: gemfibroziL 600 MG TABLET PO ×2 (07:57→21:38)
[2021-04-09] MEDS: Spironolactone 25 MG TABLET PO (07:58)
[2021-04-09] MEDS: Amiodarone HCL 200 MG TABLET PO (07:58)
[2021-04-09] MEDS: Insulin Lispro 100 UNIT/ML 3 ML VIAL SUBCUT ×3 (07:59→16:25)
[2021-04-09] MEDS: 0.9 % Sodium Chloride Flush 3 ML SYRINGE IVFLUSH ×3 (07:59→21:40)
[2021-04-09] MEDS: Multivitamin TABLET 1 TAB PO (08:45)
[2021-04-09 10:55] LABS: Glucose, Whole Blood 219 mg/dL (60-115)
[2021-04-09] MEDS: Nystatin Powder 15 GM BOTTLE 1 APPL TOPICAL ×2 (11:32→21:47)
--- NOTE | 2021-04-09 14:52 | HO.PM.IMPN ---
Subjective Subjective Date of Service: 04/09/21 Interval History: Patient complaining of recurrent diarrhea, feels he is not ready to go home since concern about bowel incontinence, no fevers no chills denies shortness of breath no other acute issues overnight. ros General no headache, no dizziness no fever chills. CVS no chest pain, no palpitation. Respiratory no cough no sob. Gastrointestinal no nausea no vomiting, no abdominal pain, diarrhea as above Physical Exam Vital Signs: Vital Signs: Last Vital Signs Temp 98.5 F 04/09/21 11:07 Pulse 67 04/09/21 11:07 Resp 18 04/09/21 11:07 BP 116/63 04/09/21 11:07 Pulse Ox 94 04/09/21 11:07 Body Mass Index 24.5 General resting comfortably in no acute distress. Neck supple no JVD. CVS regular rate rhythm, Respiratory lungs clear to auscultation, no respiratory distress, no wheeze, no rhonchi. Gastrointestinal abdomen soft, nontender, bowel sounds audible, small open abdominal wound right lateral abdomen, no guarding , no rigidity. Extremities left BKA, low left lower extremity edema resolved Neuro nonfocal Skin no rash Objective Data Current Medications Generic Name Dose Route Start Last Admin Trade Name Freq PRN Reason Stop Dose Admin Acetaminophen 650 mg 04/02/21 16:34 Acetaminophen 325 Mg Tablet PO Q6H PRN Pain, Mild (Pain Scale 1-3) Amiodarone HCl 200 mg 04/03/21 09:00 04/09/21 07:58 Amiodarone Hcl 200 Mg Tablet PO 200 mg DAILY [facility] Administration Carvedilol 6.25 mg 04/06/21 21:00 04/09/21 07:57 Carvedilol 6.25 Mg Tablet PO 6.25 mg BID [facility] Administration Protocol Furosemide 40 mg 04/09/21 09:00 04/09/21 07:56 Furosemide 40 Mg Tablet PO 40 mg DAILY [facility] Administration Protocol Gemfibrozil 600 mg 04/02/21 21:00 04/09/21 07:57 Gemfibrozil 600 Mg Tablet PO 600 mg BID [facility] Administration Guaifenesin/Dextromethorphan 10 ml 04/06/21 13:43 04/08/21 23:11 Guaifenesin Dm 200/20/10 Ml 10 Ml Syrup PO 10 ml Q6H PRN Administration Cough Insulin Human Lispro 0 unit 04/03/21 16:30 04/09/21 11:29 Insulin Lispro 100 Unit/Ml 3 Ml Vial SUBCUT 4 unit QIDACHS [facility] Administration Protocol Metronidazole 500 mg 04/08/21 17:15 04/09/21 07:56 Metronidazole 500 Mg Tablet PO 500 mg Q8H [facility] Administration Multivitamins/Vitamin C 1 tab 04/03/21 09:00 04/09/21 08:45 Multivitamin Tablet PO 1 tab DAILY [facility] Administration Nystatin 1 appl 04/04/21 21:00 04/09/21 11:32 Nystatin Powder 15 Gm Bottle TOPICAL 1 appl BID [facility] Administration Protocol Omeprazole 20 mg 04/03/21 06:30 04/09/21 05:23 Omeprazole 20 Mg Capsule.Dr PO 20 mg BID@0630,1630 [facility] Administration Ondansetron HCl 4 mg 04/04/21 21:36 04/04/21 22:29 Ondansetron Hcl 4 Mg/2 Ml Vial IVPUSH 4 mg Q8H PRN Administration Nausea and Vomiting Rivaroxaban 20 mg 04/04/21 11:30 04/09/21 07:55 Rivaroxaban 20 Mg Tablet PO 20 mg DAILY [facility] Administration Sodium Chloride 3 ml 04/02/21 16:34 04/09/21 07:59 0.9 % Sodium Chloride Flush 3 Ml Syringe IVFLUSH 3 ml QSHIFT [facility] Administration Spironolactone 25 mg 04/04/21 11:30 04/09/21 07:58 Spironolactone 25 Mg Tablet PO 25 mg DAILY [facility] Administration Protocol Trazodone HCl 50 mg 04/02/21 21:00 04/08/21 21:20 Trazodone Hcl 50 Mg Tablet PO 50 mg BEDTIME [facility] Administration Valsartan 80 mg 04/05/21 21:00 04/09/21 07:55 Valsartan 80 Mg Tablet PO 80 mg BID [facility] Administration Protocol Labs CBC & Chem 7: 04/09/21 05:33 04/09/21 05:33 Microbiology Microbiology Results: Microbiology 04/02/21 13:30 Blood - Venous Blood Culture - Final No growth after 5 days. 04/02/21 13:26 Blood - Venous Blood Culture - Final No growth after 5 days. Assessment and Plan (1) Diarrhea: Status: Acute (2) Acute on chronic systolic (congestive) heart failure: Status: Acute (3) Paroxysmal atrial fibrillation: Status: Acute (4) Ischemic cardiomyopathy: Status: Acute (5) Diabetes: Status: Acute Assessment and Plan: 61-year-old male with a past medical history of diabetes, peripheral arterial disease, complicated surgical course after a right lower intra-abdominal abscess secondary to ruptured appendix, known systolic heart failure with last echo in 2019 showing an EF of 25-30% who presents to the hospital complaints of progressive shortness of breath and lower extremity swelling. His presentation in the ED workup is most consistent with acute heart failure exacerbation. Acute on chronic combined systolic and diastolic CHF no shortness of breath, leg edema resolved,no PND, no orthopnea Repeat echo showing EF 20-25% with grade 2 diastolic dysfunction with regional wall motion abnormality >6L negative, BNP trended down, will continue Lasix 40 mg daily Continue diovan, aldactone, and metoprolol will need outpatient ischemic workup as per Cardiology. Diarrhea C diff antigen positive, PCR pending patient started empirically on Flagyl diarrhea improving, follow PCR result will treat patient for 7 days of Flagyl Patient allergic to vancomycin follow electrolytes. Hypokalemia. Potassium improved to 3.4, most likely related to GI loss and diuretics Paroxysmal atrial fibrillation Continue po amiodarone, metoprolol,seen by cardiology, given high chadsVasc score, rec AC continue xarelto DM Not currently on any medication, previously on insulin but this was discontinued during previous admission due to decreased p.o. intake and episodes of hypoglycemia HBA1c 10.01 POCs primarily under 200. continue sliding scale coverage hold Lantus, metformin on discharge after diarrhea improves, Chronic Abdominal wound wound care orders per Gen surg recs, CT abdomen shows resolution of previous abscess Question of pneumonia seen on chest x-ray on admission Treated with empiric antibiotics in the ED, no indication for further antibiotics , repeat chest x-ray showed improvement in right base infiltrate suggesting improving effusion and associated atelectasis, continue cough medication for persistent cough Chest CT showed 1.3cm spiculated opacity -informed this to patient and recommend outpatient follow-up. Full Code Reports his sister and brother are HCP
[2021-04-09 16:11] LABS: Glucose, Whole Blood 181 mg/dL (60-115)
[2021-04-09 20:18] LABS: Glucose, Whole Blood 102 mg/dL (60-115)
[2021-04-09] MEDS: traZODone HCL 50 MG TABLET PO (21:38)
[2021-04-09] MEDS: guaiFENesin DM 200/20/10 ML 10 ML SYRUP PO (21:46)
[2021-04-09] MEDS: diphenhydrAMINE HCL 25 MG TABLET PO (21:51)
[2021-04-10] MEDS: metroNIDAZOLE 500 MG TABLET PO ×2 (01:53→08:00)
[2021-04-10 04:00] VITALS: BP 141/75; PULSE 78; RESP 18; TEMP 36.4; O2SAT 97
[2021-04-10] MEDS: Omeprazole 20 MG CAPSULE.DR PO (06:13)
[2021-04-10 07:04] LABS: Anion Gap 14 (12-20); Blood Urea Nitrogen 12 mg/dL (9-16); Calcium 7.9 mg/dL (8.4-10.2); Carbon Dioxide 32 mmol/L (22-29); Chloride 97 mmol/L (96-108); Creatinine Clr Calc Pharmacy 128.9; Estimated Glomerular Filt Rate > 60; Glucose Random 108 mg/dL (60-115); Potassium 3.5 mmol/L (3.3-5.1); Sodium 139 mmol/L (135-145)
[2021-04-10 07:06] VITALS: BP 150/84; PULSE 81; RESP 20; TEMP 36.4; O2SAT 95
[2021-04-10 07:15] LABS: Glucose, Whole Blood 110 mg/dL (60-115)
[2021-04-10] MEDS: Rivaroxaban 20 MG TABLET PO (07:58)
[2021-04-10] MEDS: 0.9 % Sodium Chloride Flush 3 ML SYRINGE IVFLUSH (07:58)
[2021-04-10] MEDS: gemfibroziL 600 MG TABLET PO (07:59)
[2021-04-10] MEDS: Furosemide 40 MG TABLET PO (07:59)
[2021-04-10] MEDS: Multivitamin TABLET 1 TAB PO (07:59)
[2021-04-10] MEDS: Spironolactone 25 MG TABLET PO (08:00)
[2021-04-10 08:01] VITALS: BP 150/84; PULSE 81
[2021-04-10] MEDS: Valsartan 80 MG TABLET PO (08:01)
[2021-04-10 08:02] VITALS: BP 150/84; PULSE 81
[2021-04-10] MEDS: carvediloL 6.25 MG TABLET PO (08:02)
[2021-04-10] MEDS: Amiodarone HCL 200 MG TABLET PO (08:02)
--- NOTE | 2021-04-10 09:49 | P.PNCA_ITS ---
Subjective Subjective Date of Service: 04/10/21 Principal diagnosis: CHF Interval history: He states that he is doing well. No complaints. Review of Systems Review of Systems Yes all other systems are reviewed and are negative Cardiovascular: Reports as per HPI, Reports no additional cardiovascular compla ints, Denies acrocyanosis, Denies cool extremities, Denies painful fingertips, Denies chest pain, Denies chest pain at rest, Denies diaphoresis, Denies syncope, Denies irregular heart rhythm, Denies claudication, Denies leg edema, Denies lightheadedness, Denies palpitations and Denies dyspnea Respiratory: Denies dyspnea Denies syncope Endocrine: Denies palpitations Physical Exam Vital Signs: Last Vital Signs Temp 97.6 F 04/10/21 07:06 Pulse 81 04/10/21 08:02 Resp 20 04/10/21 07:06 BP 150/84 H 04/10/21 08:02 Pulse Ox 95 04/10/21 07:06 Body Mass Index 24.5 Const General: cooperative, comfortable and no acute distress Orientation/consciousness: patient oriented x3 HENNY Other: Unremarkable Neck Neck: Yes normal visual inspection Chest Chest palpation & inspection: normal inspection of the chest Resp Auscultation: crackles and no wheezes Cardio Jugular venous distension: no JVD Palpation: normal PMI Heart sounds: S1 normal heart sound present, S2 normal heart sound present, no gallops, no murmurs and no rubs GI Palpation (GI): Soft to palpation Back/Spine/Pelvis Other: unremarkable Skin General skin exam: no rashes or lesions noted Neuro General: patient oriented x3 Extrem Other: Left below-knee amputation and right transmetatarsal amputation. Psych Mental Status: mental status grossly normal Results Labs and Meds Result diagrams: 04/09/21 05:33 04/10/21 05:24 Lab results: Laboratory Results - last 24 hr 04/09/21 04/09/21 04/09/21 10:51 16:04 20:11 Sodium Potassium Chloride Carbon Dioxide Anion Gap BUN Creatinine Estim Creat Clear Calc Estimated GFR POC Glucose 219 H 181 H 102 Random Glucose Calcium 04/10/21 04/10/21 05:24 07:07 Sodium 139 Potassium 3.5 Chloride 97 Carbon Dioxide 32 H Anion Gap 14 BUN 12 Creatinine 0.71 Estim Creat Clear Calc 128.9 Estimated GFR > 60 POC Glucose 110 Random Glucose 108 Calcium 7.9 L Progress Note: A&P Assessment and plan (1) Ischemic cardiomyopathy: Status: Acute (2) Acute on chronic systolic (congestive) heart failure: Status: Acute (3) Paroxysmal atrial fibrillation: Status: Acute Assessment and Plan: Clinically, no significant volume overload. Continue oral diuretics. He is also on carvedilol and valsartan. Also on amiodarone/Xarelto. He has been diagnosed to have C diff as well. No changes made. Further changes in medications as an outpatient. Advised to maintain cardiology follow-up and we will call him for an appointment. Fall Risk Details Current Medications: Current Medications Generic Name Dose Route Start Last Admin Trade Name Freq PRN Reason Stop Dose Admin Acetaminophen 650 mg 04/02/21 16:34 Acetaminophen 325 Mg Tablet PO Q6H PRN Pain, Mild (Pain Scale 1-3) Amiodarone HCl 200 mg 04/03/21 09:00 04/10/21 08:02 Amiodarone Hcl 200 Mg Tablet PO 200 mg DAILY [facility] Administration Carvedilol 6.25 mg 04/06/21 21:00 04/10/21 08:02 Carvedilol 6.25 Mg Tablet PO 6.25 mg BID [facility] Administration Protocol Diphenhydramine HCl 25 mg 04/09/21 21:45 04/09/21 21:51 Diphenhydramine Hcl 25 Mg Tablet PO 25 mg BEDTIME PRN Administration Insomnia Furosemide 40 mg 04/09/21 09:00 04/10/21 07:59 Furosemide 40 Mg Tablet PO 40 mg DAILY [facility] Administration Protocol Gemfibrozil 600 mg 04/02/21 21:00 04/10/21 07:59 Gemfibrozil 600 Mg Tablet PO 600 mg BID [facility] Administration Guaifenesin/Dextromethorphan 10 ml 04/06/21 13:43 04/09/21 21:46 Guaifenesin Dm 200/20/10 Ml 10 Ml Syrup PO 10 ml Q6H PRN Administration Cough Insulin Human Lispro 0 unit 04/03/21 16:30 04/10/21 07:34 Insulin Lispro 100 Unit/Ml 3 Ml Vial SUBCUT Not Given QIDACHS [facility] Protocol Metronidazole 500 mg 04/08/21 17:15 04/10/21 08:00 Metronidazole 500 Mg Tablet PO 500 mg Q8H [facility] Administration Multivitamins/Vitamin C 1 tab 04/03/21 09:00 04/10/21 07:59 Multivitamin Tablet PO 1 tab DAILY [facility] Administration Nystatin 1 appl 04/04/21 21:00 04/09/21 21:47 Nystatin Powder 15 Gm Bottle TOPICAL 1 appl BID [facility] Administration Protocol Omeprazole 20 mg 04/03/21 06:30 04/10/21 06:13 Omeprazole 20 Mg Capsule.Dr PO 20 mg BID@0630,1630 [facility] Administration Ondansetron HCl 4 mg 04/04/21 21:36 04/04/21 22:29 Ondansetron Hcl 4 Mg/2 Ml Vial IVPUSH 4 mg Q8H PRN Administration Nausea and Vomiting Rivaroxaban 20 mg 04/04/21 11:30 04/10/21 07:58 Rivaroxaban 20 Mg Tablet PO 20 mg DAILY [facility] Administration Sodium Chloride 3 ml 04/02/21 16:34 04/10/21 07:58 0.9 % Sodium Chloride Flush 3 Ml Syringe IVFLUSH 3 ml QSHIFT [facility] Administration Spironolactone 25 mg 04/04/21 11:30 04/10/21 08:00 Spironolactone 25 Mg Tablet PO 25 mg DAILY [facility] Administration Protocol Trazodone HCl 50 mg 04/02/21 21:00 04/09/21 21:38 Trazodone Hcl 50 Mg Tablet PO 50 mg BEDTIME [facility] Administration Valsartan 80 mg 04/05/21 21:00 04/10/21 08:01 Valsartan 80 Mg Tablet PO 80 mg BID [facility] Administration Protocol Time Spent With Patient Time: Total time spent is greater than 50% in coordination of care (as documented) at patient's floor/unit and/or counseling patient: Time with patient: less than 15 minutes Procedures Date of Service Date of Service: 04/10/21
[2021-04-10 10:55] VITALS: BP 133/77; PULSE 71; RESP 16; TEMP 35.7; O2SAT 94
[2021-04-10 11:00] LABS: Glucose, Whole Blood 159 mg/dL (60-115)
[2021-04-10] MEDS: Insulin Lispro 100 UNIT/ML 3 ML VIAL SUBCUT (11:31)
--- NOTE | 2021-04-10 14:02 | P.DS_ITS ---
DS: Providers Provider Date of Service: 04/10/21 Date of admission: 04/02/21 15:35 Primary care physician: Connor Mcdaniel MD Consults: 04/03/21 13:02 Consult to Cardiology Routine Consulting Provider: Haja Mullins Reason for consultation: Heart failure Has provider been notified: No DS: Diagnosis Discharge Diagnosis (1) Ischemic cardiomyopathy: Status: Acute (2) Acute on chronic systolic (congestive) heart failure: Status: Acute (3) Paroxysmal atrial fibrillation: Status: Acute DS: Medications Discharge Medications Home Medications: Home Medications Medication Instructions Recorded Confirmed amiodarone 1 tab PO DAILY 04/02/21 04/02/21 furosemide 1 tab PO DAILY 04/02/21 04/02/21 gemfibrozil 1 tab PO BID 04/02/21 04/02/21 multivitamin 1 tab PO DAILY 04/02/21 04/02/21 omeprazole 1 cap PO BID 04/02/21 04/02/21 trazodone 1 tab PO BEDTIME 04/02/21 04/02/21 Previous Rx's Medication Instructions Recorded carvedilol 6.25 mg PO BID #60 tab 04/10/21 metronidazole 500 mg PO Q8H #15 tab 04/10/21 rivaroxaban [Xarelto] 20 mg PO DAILY #30 tab 04/10/21 spironolactone 25 mg PO DAILY #30 tab 04/10/21 valsartan 80 mg PO BID #30 tab 04/10/21 DS: Summary Hospital Course Hospital Course: History of presenting illness Chief Complaint: Progressive shortness of breath This is a 61-year-old male with a past medical history of peripheral arterial disease status post multiple amputation in the bilateral lower extremities, diabetes mellitus, abdominal abscess status post prolonged healing and requiring multiple surgeries, systolic heart failure with an EF of 25-30% (last echo in 2019) who presents to the hospital with complaints of progressive shortness of breath over the last 2-3 weeks and severe lower extremity edema. Patient reports that prior to about 3 weeks ago he was able to ambulate freely and had really no restrictions in regards to his mobility. He now reports that he can barely walk 10 ft without having to stop and sit down to recover for shortness of breath. He reports that lower extremity edema is progressively worsening as above. He endorses orthopnea and paroxysmal nocturnal dyspnea. He denies any weight gain although he does not check his with weight very frequently. He denies any exertional chest pain. He denies fevers or chills. He denies any cough. Upon arrival to the emergency room his workup revealed a severely elevated BNP greater than 3000. His chest x-ray showed nonspecific findings, possible rib pneumonia. He was given a dose of antibiotics and IV Lasix. An attempt was made to ambulate the patient to evaluate his readiness for discharge, however within walking about 8-10 feet he became severely tachypneic and saturations dropped to 90. He required more than 10 minutes to recover and subsequently admission was requested. Hospital course 61-year-old male with a past medical history of diabetes, peripheral arterial disease, complicated surgical course after a right lower intra-abdominal abscess secondary to ruptured appendix, known systolic heart failure with last echo in 2019 showing an EF of 25-30% who presents to the hospital complaints of progressive shortness of breath and lower extremity swelling. His presentation in the ED workup is most consistent with acute heart failure exacerbation. Acute on chronic combined systolic and diastolic CHF [facility] treated with intravenous Lasix with good response, shortness of breath and leg edema resolved echo cardiogram showed EF 20-25% with grade 2 diastolic dysfunction with regional wall motion abnormality, patient seen by Cardiology and started on Diovan Aldactone and metoprolol Since patient is asymptomatic he will be discharged home on all above medications and Lasix 40 mg daily and has been recommended to follow up with Dr. Pleitez. Patient developed hypokalemia likely due to diuretics and diarrhea that was aggressively replaced and normalized. Noted to have intermittent Diarrhea C diff antigen positive, PCR negative, patient is being treated with 5 days of Flagyl for presumed infectious diarrhea In regard to Paroxysmal atrial fibrillation patient has been continued on amiodarone and placed on Xarelto given high chads vascular score Patient has history of diabetes currently not on medication previously was on insulin but was discontinued due to hypoglycemic episodes hemoglobin A1c is 10.1 due to diarrhea will hold of on oral hypoglycemics advised to follow blood sugar twice daily and follow-up with primary care physician for resumption of Lantus versus oral hypoglycemics Chronic Abdominal wound continue wound care as before CT abdomen showed resolution of previous sepsis Right spiculated opacity seen on chest CT patient has been informed about this finding and recommended to have outpatient follow-up with pcp for repeat imaging studies. Time Spent with Patient Time attestation: Total time spent providing and/or coordinating discharge services: Discharge coordination time: Greater than 30 minutes Quality: Stroke Does the patient have a stroke diagnosis?: No Physical Exam Vital Signs: Vital Signs: Last Vital Signs Temp 96.3 F L 04/10/21 10:55 Pulse 71 04/10/21 10:55 Resp 16 04/10/21 10:55 BP 133/77 04/10/21 10:55 Pulse Ox 94 04/10/21 10:55 Body Mass Index 24.5 General resting comfortably in no acute distress. Neck supple no JVD. CVS regular rate rhythm, Respiratory lungs clear to auscultation, no respiratory distress, no wheeze, no rhonchi. Gastrointestinal abdomen soft, nontender, bowel sounds audible, small open abdominal wound right lateral abdomen, no guarding , no rigidity. Extremities left BKA, low left lower extremity edema resolved Neuro nonfocal Skin no rash DS: Data Data Completed and Pending Completed studies during hospitalization [Text1]: Procedures Drainage of Retroperitoneum with Drainage Device, Percutaneous Approach (12/22/20) Drainage of Retroperitoneum, Percutaneous Endoscopic Approach (12/22/20) Labs on day of discharge: Laboratory Results - last 24 hr 04/09/21 04/09/21 04/10/21 16:04 20:11 05:24 Sodium 139 Potassium 3.5 Chloride 97 Carbon Dioxide 32 H Anion Gap 14 BUN 12 Creatinine 0.71 Estim Creat Clear Calc 128.9 Estimated GFR > 60 POC Glucose 181 H 102 Random Glucose 108 Calcium 7.9 L 04/10/21 04/10/21 07:07 10:57 Sodium Potassium Chloride Carbon Dioxide Anion Gap BUN Creatinine Estim Creat Clear Calc Estimated GFR POC Glucose 110 159 H Random Glucose Calcium Discharge Plan Discharge Patient Disposition: Home Health Service Discharge Diagnosis: Acute on chronic systolic and diastolic heart failure Diarrhea Hypokalemia Atrial fibrillation diabetes Referrals: Mohinder [facility] [Outside] - 1 Week Connor Mcdaniel MD [Primary Care Provider] - 1 Week Discharge Medications: New carvedilol 6.25 mg Tablet 6.25 mg PO BID Qty: 60 RF: 0 valsartan 80 mg Tablet 80 mg PO BID Qty: 30 RF: 0 metronidazole 500 mg Tablet 500 mg PO Q8H Qty: 15 RF: 0 spironolactone 25 mg Tablet 25 mg PO DAILY Qty: 30 RF: 0 Xarelto 20 mg Tablet 20 mg PO DAILY Qty: 30 RF: 0 Continued furosemide 40 mg tablet 1 tab PO DAILY RF: 0 trazodone 50 mg tablet 1 tab PO BEDTIME RF: 0 amiodarone 200 mg tablet 1 tab PO DAILY RF: 0 gemfibrozil 600 mg tablet 1 tab PO BID RF: 0 omeprazole 20 mg capsule,delayed release(DR/EC) 1 cap PO BID RF: 0 multivitamin Tablet 1 tab PO DAILY RF: 0 Discontinued metoprolol tartrate 25 mg tablet 1 tab PO BID RF: 0 Discharge Orders: Discharge Order (Routine); Ordered 04/10/21 Ordered By: Hemanth Freedman Diet: diabetic diet Activity on Discharge: As tolerated Stand Alone Forms: Patient Portal Discharge page Care Plan Goals: For systolic heart failure take all medications and follow low-salt diet Follow blood sugars closely due to diabetes mellitus and discussed with primary care physician for starting oral hypoglycemics Continue wound care for right abdominal wound Health Concerns: Heart failure Diabetes mellitus Atrial fibrillation Continue all medications as prescribed and follow-up with cardiology Dr. Pleitez Plan of Treatment: Outpatient follow-up with primary care physician in 1 week Assessment: as above.
== END 2021-04-10 14:42 | disposition home health service (06) | DRG 291 ==
LOC: HO.ED 14:42 → HO.EDOVER 15:48 → HO.IMC 17:14
PROVIDERS: Internal Medicine; Nurse Practitioner Family; Physician Assistant Medical; Student in an Organized Health Care Education/Training Program; Admitting Provider Family Medicine; Emergency Provider Emergency Medicine Emergency Medical Services; PCP Internal Medicine; Visit Provider Hospitalist
DX: I11.0 Hypertensive heart disease with heart failure (principal); J18.9 Pneumonia, unspecified organism; A04.72 Enterocolitis due to Clostridium difficile, not specified as recurrent; I50.43 Acute on chronic combined systolic (congestive) and diastolic (congestive) heart failure; E87.6 Hypokalemia; E11.51 Type 2 diabetes mellitus with diabetic peripheral angiopathy without gangrene; E11.649 Type 2 diabetes mellitus with hypoglycemia without coma; F17.210 Nicotine dependence, cigarettes, uncomplicated; E11.65 Type 2 diabetes mellitus with hyperglycemia; S31.109A Unspecified open wound of abdominal wall, unspecified quadrant without penetration into peritoneal cavity, initial encounter; X58.XXXA Exposure to other specified factors, initial encounter; Z71.6 Tobacco abuse counseling; I48.0 Paroxysmal atrial fibrillation; R91.8 Other nonspecific abnormal finding of lung field; I25.5 Ischemic cardiomyopathy; Z20.822 Contact with and (suspected) exposure to COVID-19; Z89.512 Acquired absence of left leg below knee; Z79.01 Long term (current) use of anticoagulants; Z79.899 Other long term (current) drug therapy
CPT/HCPCS: 36415; 71045; 71250; 74177; 80048; 82947; 83036; 83605; 83880; 84484; 85025; 85027; 87040; 87324; 87449; 87493; 87635; 93005; 93306; 93970; 99212; 99285; J0456; J0696; J1200; J1650; J1940; J2405; Q0163; Q9957; Q9967

== ENCOUNTER → 2021-05-07 14:22 | Outpatient (BNVA) | payer MEDICARE, SELFPAY | PROVIDERS: PCP Internal Medicine; Referring Provider Internal Medicine; Visit Provider Nurse Practitioner Family | DX: I50.20 Unspecified systolic (congestive) heart failure (principal); I11.0 Hypertensive heart disease with heart failure; I48.0 Paroxysmal atrial fibrillation; E78.5 Hyperlipidemia, unspecified; E11.9 Type 2 diabetes mellitus without complications; Z89.512 Acquired absence of left leg below knee; Z89.431 Acquired absence of right foot; Z88.1 Allergy status to other antibiotic agents; Z79.899 Other long term (current) drug therapy | CPT/HCPCS: 93005; 99212 ==

== ENCOUNTER → 2021-05-20 09:42 | Outpatient (REF) | payer MEDICARE, SELFPAY ==
--- NOTE | ~2021-05-20 | NM_ITS ---
Myocardial perfusion study Indication: Cardiomyopathy to evaluate for myocardial ischemia Technique: The patient was brought in for a Lexiscan perfusion study on 05/20/2021. Patient performed low-level exercise and was injected 0.4 mg of Lexiscan intravenously. Within a minute of injection, 35 mCi of sestamibi was given intravenously. Images were obtained using the SPECT gamma camera interlaced with the gating device. Images were obtained in supine position. Resting perfusion study was performed on 05/21/2021. Patient was administered 35 mCi of sestamibi intravenously at rest. Images were then obtained in supine position. Images obtained with and without CT attenuation. Total DLP 88 mGy-cm. Images were processed with the software and compared side to side in short axis, horizontal long axis and vertical long axis views. Findings: The stress perfusion study showed nonattenuated images show severely reduced uptake in the inferoseptum, severely reduced uptake in the inferior wall, absent uptake in the apex of the LV myocardium. Attenuation corrected images show severely reduced uptake in the basal inferior as well as severely reduced uptake in the inferior, absent uptake in the apex, mildly reduced uptake in the anterior anterolateral wall and anteroseptal wall of the LV myocardium.. The gated study shows reduced LV systolic function with calculated LVEF of 29%. LV cavity is mildly dilated size. The gated study shows diffusely reduced wall thickening and contraction of all segments, with severely reduced function of the inferior wall and akinesis of the apex.. Resting study shows attenuated images show improvement in uptake in the anterolateral, anterior, anteroseptal wall with persistent severely reduced uptake in the basal inferior wall with improved uptake in the inferoapical wall. Absent uptake in the apex. Gating at rest reveals apical wall motion abnormality with ejection fraction at 37%. The findings are consistent with moderately large area of transmural apical infarct as well as infarct in the basal inferior wall and partially reversible defect of the apical wall. Large area of mild intensity reversible defect of the anterior, anterolateral and anteroseptal wall suggestive of ischemia in LAD territory.. NM/NM fermin perf SPECT rest & str Impression: 1. Myocardial perfusion imaging study shows large area of LAD territory ischemia, infarct of the apex as well as basal inferior wall. Partially reversible inferoapical mid inferior wall defect 2. Gated LVEF is 29% with stress and 37% at rest 3. Transient ischemic dilatation present with Betadine LV cavity dilated EKG is nondiagnostic for ischemia
--- NOTE | 2021-05-20 09:52 | CA_ITS ---
Acquisition Time: 2021-05-20 09:57:11 Total Exercise Time: 00:02:00 Test Indications: Dyspnea Medications: AMLODIPINE CARVEDILOL FUROSEMIDE OMEPRAZOLE XARELTO SPIRONALACTONE VALSARTAN GEMFIBROZIL Protocol: LEXISCAN Max HR: 078 BPM 49% of Pred: 158 BPM Max BP: 124/058 mmHG Max Work Load: 1.0 METS Pharmacological stress test with Lexiscan injection, while sitting and exercising right arm, without anginal symptoms, without arrythmia, with normotensive response to injection, with nondiagnostic EKG for ischemia. Nuclear images pending. Test reviewed with Dr Pleitez. Referred By: Shirley Subramanian Overread By: SHIRLEY SUBARMANIAN
== END ==
LOC: HO.CARD 09:42
PROVIDERS: PCP Internal Medicine; Visit Provider Nurse Practitioner Family
DX: I42.9 Cardiomyopathy, unspecified (principal); I50.9 Heart failure, unspecified
CPT/HCPCS: 78452; 93017; A9500; J0280; J2785

== ENCOUNTER 2021-05-26 10:57 | Inpatient (IN) | payer MEDICARE, SELFPAY ==
[2021-05-26] VITALS (10 sets, daily range): BP systolic 117–143; BP diastolic 49–75; PULSE 66–71; RESP 16–18; TEMP 36.6–37.2; O2SAT 94–98; BMI 27.7
--- NOTE | ~2021-05-26 | CT_ITS ---
EXAMINATION: CT ABDOMEN AND PELVIS WITHOUT CONTRAST CLINICAL INFORMATION: Follow up abdominal wall abscess strain image COMPARISON: May 26, 2021 and April 04, 2021 TECHNIQUE: Multidetector volumetric imaging was performed from the superior aspect of the liver through the pubic symphysis. Sagittal and coronal reformatted images were obtained on the technologist's workstation. This CT examination was performed using dose optimization techniques as appropriate, variously including the following: *Automated exposure control *Adjustment of mA and/or kV according to patient size (this includes techniques or standardized protocols for targeted exams where dose is matched to indication/reason for exam; i.e. extremities or head) *Use of iterative reconstruction technique DLP: 915 mGy-cm FINDINGS: LUNG BASES: There is again noted to be chronic pleural-parenchymal change in the right lower lobe. There is a stable moderate left pleural effusion. Basilar atelectasis/scarring seen bilaterally. Heart normal size. Coronary artery calcifications seen. LIVER, GALLBLADDER, AND BILIARY TREE: The liver is normal in size, shape, and attenuation. No focal hepatic lesion or biliary ductal dilatation is present. There is a small amount of fluid seen surrounding the liver. Status post cholecystectomy. PANCREAS: Unremarkable. SPLEEN: Unremarkable. ADRENAL GLANDS: Right adrenal gland unremarkable. Left adrenal gland contains a 2.6 x 1.8 cm nodule which has Hounsfield unit measurements of less than 10 consistent with lipid rich adenoma. KIDNEYS AND URETERS: There are bilateral cysts present. No hydronephrosis is seen. No calculi noted. Large amount of bilateral perinephric stranding. BLADDER: Unremarkable. GASTROINTESTINAL TRACT: No dilated loops of large or small bowel are evident. No free air is identified. There is a small amount of free fluid seen about the abdomen and pelvis. Drainage catheter is seen within the right lower abdomen extending about the muscles extending to the right psoas muscle with less fluid being present between the muscles. There remains small amount of fluid adjacent to the catheter. Status post appendectomy. ABDOMINAL WALL: There is again noted to be some subcutaneous gas and soft tissue stranding and tract from skin surface to lateral abdominal wall musculature. There appears be less fluid about the muscle wall where the catheter is. Anasarca is present. LYMPH NODES: No lymphadenopathy appreciated. VASCULAR: Mild aortoiliac calcified plaque. No abdominal aortic aneurysm. PELVIC VISCERA: No significant masses appreciated. There is small amount of free fluid seen. OSSEOUS STRUCTURES: No suspicious destructive bony lesion identified. There is degenerative joint disease seen involving both hips. Multilevel degenerative disc disease within the lumbar spine is present. CT/CT abdomen pelvis wo con IMPRESSION: Some improvement in fluid between muscles in the right lateral abdominal wall. Gas within subcutaneous tissues extending to the muscle wall suspicious for possible fistulous tract as was seen previously but which appears improved. Small amount of ascites. Left adrenal gland lipid rich adenoma. Bilateral renal cysts.
--- NOTE | ~2021-05-26 | US_ITS ---
EXAMINATION: ULTRASOUND-GUIDED SOFT TISSUE DRAIN WITH IMAGING CLINICAL INFORMATION: Enterocutaneous fistula COMPARISON: Previous CT of the abdomen and pelvis most recent 05/26/2021 TECHNIQUE: Procedure and risks and benefits including bleeding and infection were discussed with the patient and informed consent was obtained. The existing pole of the scan from the enterocutaneous fistula on the right lateral abdominal wall was probed gently and a 1 inch [place] drain was inserted. This was advanced into the small irregularly-shaped collection visualized by ultrasound. FINDINGS: There is a small heterogeneous or complex fluid collection measuring 7.9 x 1.8 x 3.9 cm in greatest dimension in the soft tissues adjacent to the right lateral abdominal wall. Images demonstrate a drain placed in the collection. The collection is irregularly-shaped with internal echoes and air. US/US drain soft tissue w imaging IMPRESSION: 1/4 inch [place] drain placed in the fistula tract into right lateral abdominal wall collection.
--- NOTE | ~2021-05-26 | CT_ITS ---
EXAMINATION: CT ABDOMEN AND PELVIS WITH CONTRAST CLINICAL INFORMATION: Evaluate for recurrent abscess. History of enterocutaneous fistula. COMPARISON: Previous CT scans most recent 04/04/2021 TECHNIQUE: Multidetector volumetric images were obtained from the superior aspect of the liver through the pubic symphysis following administration 85 mL of Omnipaque 350 intravenous contrast. Sagittal and coronal reformatted images were obtained on the technologist's workstation. Oral contrast: Yes This CT examination was performed using dose optimization techniques as appropriate, variously including the following: *Automated exposure control *Adjustment of mA and/or kV according to patient size (this includes techniques or standardized protocols for targeted exams where dose is matched to indication/reason for exam; i.e. extremities or head) *Use of iterative reconstruction technique DLP: 1083 mGy-cm FINDINGS: LUNG BASES: There is a small chronic-appearing right pleural effusion with pleural thickening. There is adjacent right lower lobe subsegmental atelectasis. This is unchanged. There is a [id number] left pleural effusion. This appears decreased in size from March 2021. There is adjacent left lower lobe subsegmental atelectasis. LIVER, GALLBLADDER, AND BILIARY TREE: The liver is unremarkable. The gallbladder has been removed. PANCREAS: Unremarkable. SPLEEN: Unremarkable. ADRENAL GLANDS: There is a stable 1.8 x 2.4 cm left adrenal nodule. This is a small fatty component. The right adrenal gland is normal. KIDNEYS AND URETERS: There are bilateral renal cysts. Largest cyst measures 3 x 5 cm in the lower pole of the right kidney. BLADDER: Unremarkable. GASTROINTESTINAL TRACT: The appendix has been removed. There is mild diverticulosis of the colon. Small and large bowel is otherwise unremarkable. The stomach is unremarkable. ABDOMINAL WALL: There is a small amount of fluid and air seen in the right lateral abdominal wall muscles. This tracks to the right iliopsoas muscle where there is a small amount of fluid and air. This does not appear appreciably changed from March 2021 exam. These areas measure 1 cm in greatest thickness. There is a small fluid collection and air seen involving the lateral lateral abdominal wall muscles and adjacent subcutaneous fat. This area measures approximately 5 x 5 cm in transverse and longitudinal dimension and 3 cm in AP dimension and appears increased from previous exam. Tracks of air extent from this collection to the skin compatible with a sinus tract or fistula. There is diffuse subcutaneous edema or anasarca. LYMPH NODES: Normal. VASCULAR: Unremarkable. PELVIC VISCERA: The prostate gland does not appear enlarged. There is a small amount of fluid in the pelvis. OSSEOUS STRUCTURES: There are degenerative changes of the spine and hip joints. CT/CT abdomen pelvis w con IMPRESSION: Small amount of fluid and air in the right lateral abdominal wall muscles extending to the right iliopsoas muscle not appreciably changed from March 2021 exam. There is increasing air and fluid collection involving the right lateral abdominal wall muscles and adjacent overlying fat that measures 5 x 5 x 3 cm. This has tracks of air that extend to the skin likely representing a sinus tract or fistula. Diverticulosis of the colon. Renal cysts. Stable left adrenal nodule. Small amount of ascites in the pelvis. Stable small right pleural effusion or pleural thickening and decreased in small to moderate left pleural effusion.
--- NOTE | 2021-05-26 12:17 | ED.GENADULT ---
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 Coli and Klebsiella from the cultures most recently in January - has had to be drained in the past with IR via US or CT scan, comes in due to pain and the drainage has become too much he has no appetite today as well. Typical bout for him when a collection occurs, at this time will need labs, cultures, CT scan for collection, IV cefepime given prior cultures of E. Coli and Klebsiella R to ampicillin but S to cefazolin - likely admission after discussion with surgery. complaint: draining R sided abdominal wound Onset (ago): month(s) (but much worse drainage from R lateral fistula starting yesterday) Location: abdomen Radiation: abdomen Severity: moderate and similar to prior episodes Quality: aching Pain Consistency: constant Relieving factors: none Exacerbating factors: movement (more drainage with movement) Associated symptoms: loss of appetite and malaise Treatments prior to arrival: none Related Data Home Medications Medication Instructions Recorded Confirmed multivitamin 1 tab PO DAILY 04/02/21 05/26/21 amiodarone 200 mg tablet 200 mg PO DAILY 05/07/21 05/26/21 furosemide 40 mg tablet 40 mg PO BID tab 05/07/21 05/26/21 gemfibrozil 600 mg tablet 600 mg PO BID 05/07/21 05/26/21 spironolactone 25 mg tablet 25 mg PO DAILY tab 05/07/21 05/26/21 trazodone 50 mg tablet 50 mg PO BEDTIME 05/07/21 05/26/21 zolpidem 10 mg tablet 10 mg PO BEDTIME 05/07/21 05/26/21 ondansetron HCl 1 tab PO Q8H PRN 05/26/21 05/26/21 valsartan 80 mg PO DAILY 05/26/21 05/26/21 Previous Rx's Medication Instructions Recorded carvedilol 6.25 mg PO BID #60 tab 04/10/21 rivaroxaban [Xarelto] 20 mg PO DAILY #30 tab 04/10/21 Allergies Allergy/AdvReac Type Severity Reaction Status Date / Time vancomycin [VANCOMYCIN] Allergy Severe STOMACH Verified 05/26/21 11:08 UPSET, ill Review of Systems Review of Systems: Constitutional : No Weight loss, No Fever, pos Chills, pos malaise ENT/Mouth : No sore throat, No Rhinorrhea Eyes: No Swelling, No Redness Cardiovascular : No Chest Pain, No SOB, NoEdema Respiratory : No Cough, No Sputum, No Wheezing Gastrointestinal : Positive Nausea, no Vomiting, no Diarrhea, positive abdominal Pain, No Hematochezia, No Melena Genitourinary : No Dysuria, No Urinary Frequency, No Hematuria, No Urgency Musculoskeletal : No joint pain, No Myalgias, No Joint Swelling Skin : pos draining wound on R side of abdomen Neuro : No Weakness, No Numbness, No Dizziness, No Headache Psych : No Anxiety/Panic, No Depression Heme/Lymph: No Bruising, No Lymphadenopathy Endocrine : No Polyuria, No Polydipsia All other systems reviewed and are negative. [facility] Past Medical History Attestation statement: The following information was validated with the patient. Medical History (Updated 05/26/21 @ 17:15 by Connor Arthur MD) Abdominal wall abscess Acute appendicitis CHF (congestive heart failure) CHF (congestive heart failure) CVA (cerebral vascular accident) Diabetes Diabetes mellitus Heart disease Heart failure with reduced ejection fraction History of left below knee amputation HTN (hypertension) Ischemic cardiomyopathy Paroxysmal atrial fibrillation Surgical History H/O exploratory laparotomy H/O right hemicolectomy History of transmetatarsal amputation of right foot Hx of cholecystectomy Family History Family History Father Stroke Aortic valve replaced Mother No problems noted. Social History Social History Household Members: Family Household Members Other:: Mother- cares for her Housing: House Do you presently have visiting nurse or other home services: Yes Alcohol intake: former Patient Tobacco Use Status: Former Tobacco user Use of substances other than those prescribed or required for medical reasons: No Advance Directives: No Advance Directives Information Provided: Yes service: No Current occupational status: retired and disabled Physical Exam Vital Signs: Vital Signs: Last Vital Signs Temp 98.3 F 05/26/21 19:57 Pulse 66 05/26/21 20:00 Resp 17 05/26/21 19:57 BP 129/65 05/26/21 20:00 Pulse Ox 94 05/26/21 19:57 Body Mass Index 27.7 Appearance: Alert. Oriented X3. No acute distress. Eyes: Pupils equal, round and reactive to light. ENT: Pharynx normal. Neck: Normal inspection. Neck supple. CVS: Normal heart rate and rhythm. Pulses normal. Respiratory: No respiratory distress. Breath sounds normal. Abdomen: Soft and 2 fistulas noted on R side with erythema/moderate swelling - foul yellow thick drainage from each fistula but R lateral wound has marked drainage to any palpation Skin: Skin warm and dry. Normal skin color. Normal skin turgor. Extremities: No lower extremity edema. No calf ttp Neuro: Oriented X 3. No motor deficit. No sensory deficit. Course Course Course Narrative: Dr. Arthur aware will evaluate the patient 232pm IR cannot do drainage until Wednesday due to xarelto use - notified surgery who is already aware, Dr. 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 Coli and Klebsiella from the cultures most recently in January - has had to be drained in the past with IR via US or CT scan, comes in due to pain and the drainage has become too much he has no appetite today as well. Typical bout for him when a collection occurs Lab Data Result diagrams: 05/26/21 13:12 05/26/21 13:12 Labs: Lab Results 05/26/21 05/26/21 05/26/21 Range/Units 13:12 13:12 13:12 WBC 11.5 H (4.8-10.8) X10*3/uL RBC 4.02 L (4.60-5.80) X10*6/uL Hgb 11.0 L (14.0-18.0) g/dl Hct 34.3 L D (42-52) % MCV 85.3 (80-98) fL MCH 27.4 (27.0-33.0) pg MCHC 32.1 (31.0-36.0) g/dl RDW 15.9 (11.0-16.0) % Plt Count 228 (160-400) X10*3/uL MPV 10.1 (9.4-12.4) fL Immature Gran % (Auto) 1.0 H (0.0-0.4) % Neut % (Auto) 85.0 H (45-73) % Lymph % (Auto) 8.2 L (20-40) % [place] % (Auto) 4.6 (2-11) % Eos % (Auto) 1.0 (0-4) % Baso % (Auto) 0.2 (0-2) % Lymph # (Auto) 1.0 L (1.2-4.9) X10*3/uL [place] # (Auto) 0.5 (0.1-1.2) X10*3/uL Eos # (Auto) 0.1 (0.0-0.4) X10*3/uL Baso # (Auto) 0.0 (0.0-0.2) X10*3/uL Abs Immat Gran (auto) 0.11 H (0.00-0.03) X10*3/uL Absolute Neuts (auto) 9.8 H (2.0-8.3) X10*3/uL Absolute Nucleated RBC 0.000 (0.0-0.012) X10*3/uL Nucleated RBC % (auto) 0.0 (0.0-0.2) /100WBC PT 26.1 H (9.9-13.0) SEC INR 2.3 H (0.9-1.1) APTT 43.0 H (24.1-38.0) SEC Sodium 140 (135-145) mmol/L Potassium 3.1 L (3.3-5.1) mmol/L Chloride 103 (96-108) mmol/L Carbon Dioxide 22 (22-29) mmol/L Anion Gap 18 (12-20) BUN 26 H D (9-16) mg/dL Creatinine 0.99 (0.5-1.4) mg/dL Estim Creat Clear Calc 92.4 Estimated GFR > 60 Random Glucose 96 (60-115) mg/dL Lactic Acid (0.5-2.0) mmol/L Calcium 7.5 L (8.4-10.2) mg/dL Magnesium 1.6 (1.6-2.6) mg/dL Total Bilirubin 0.4 (0.0-1.0) mg/dL Direct Bilirubin < 0.2 (0.0-0.5) mg/dL AST 25 D (5-37) U/L ALT < 6 (0-40) U/L Alkaline Phosphatase 108 (39-117) U/L C-Reactive Protein 23.60 H (< or = 0.50) mg/dL B-Natriuretic Peptide (<100) pg/mL Total Protein 5.8 L (6.5-8.0) g/dL Albumin 2.3 L D (3.5-5.0) g/dL Urine Color Urine Appearance Urine pH (5.0-8.0) Ur Specific [place] (1.005-1.025) Urine Protein (NEG-TRACE) MG/DL Urine Glucose (UA) (NEG) MG/DL Urine Ketones (NEG) MG/DL Urine Blood (NEG) Urine Nitrite (NEG) Ur Leukocyte Esterase (NEG) COVID-19 (CAROLINE) (Negative) COVID-19 Clin Com 05/26/21 05/26/21 05/26/21 Range/Units 13:12 13:12 13:12 WBC (4.8-10.8) X10*3/uL RBC (4.60-5.80) X10*6/uL Hgb (14.0-18.0) g/dl Hct (42-52) % MCV (80-98) fL MCH (27.0-33.0) pg MCHC (31.0-36.0) g/dl RDW (11.0-16.0) % Plt Count (160-400) X10*3/uL MPV (9.4-12.4) fL Immature Gran % (Auto) (0.0-0.4) % Neut % (Auto) (45-73) % Lymph % (Auto) (20-40) % [place] % (Auto) (2-11) % Eos % (Auto) (0-4) % Baso % (Auto) (0-2) % Lymph # (Auto) (1.2-4.9) X10*3/uL [place] # (Auto) (0.1-1.2) X10*3/uL Eos # (Auto) (0.0-0.4) X10*3/uL Baso # (Auto) (0.0-0.2) X10*3/uL Abs Immat Gran (auto) (0.00-0.03) X10*3/uL Absolute Neuts (auto) (2.0-8.3) X10*3/uL Absolute Nucleated RBC (0.0-0.012) X10*3/uL Nucleated RBC % (auto) (0.0-0.2) /100WBC PT (9.9-13.0) SEC INR (0.9-1.1) APTT (24.1-38.0) SEC Sodium (135-145) mmol/L Potassium (3.3-5.1) mmol/L Chloride (96-108) mmol/L Carbon Dioxide (22-29) mmol/L Anion Gap (12-20) BUN (9-16) mg/dL Creatinine (0.5-1.4) mg/dL Estim Creat Clear Calc Estimated GFR Random Glucose (60-115) mg/dL Lactic Acid 1.1 (0.5-2.0) mmol/L Calcium (8.4-10.2) mg/dL Magnesium (1.6-2.6) mg/dL Total Bilirubin (0.0-1.0) mg/dL Direct Bilirubin (0.0-0.5) mg/dL AST (5-37) U/L ALT (0-40) U/L Alkaline Phosphatase (39-117) U/L C-Reactive Protein (< or = 0.50) mg/dL B-Natriuretic Peptide 1330 H (<100) pg/mL Total Protein (6.5-8.0) g/dL Albumin (3.5-5.0) g/dL Urine Color Urine Appearance Urine pH (5.0-8.0) Ur Specific [place] (1.005-1.025) Urine Protein (NEG-TRACE) MG/DL Urine Glucose (UA) (NEG) MG/DL Urine Ketones (NEG) MG/DL Urine Blood (NEG) Urine Nitrite (NEG) Ur Leukocyte Esterase (NEG) COVID-19 (CAROLINE) Negative (Negative) COVID-19 Clin Com See Note 05/26/21 Range/Units 16:40 WBC (4.8-10.8) X10*3/uL RBC (4.60-5.80) X10*6/uL Hgb (14.0-18.0) g/dl Hct (42-52) % MCV (80-98) fL MCH (27.0-33.0) pg MCHC (31.0-36.0) g/dl RDW (11.0-16.0) % Plt Count (160-400) X10*3/uL MPV (9.4-12.4) fL Immature Gran % (Auto) (0.0-0.4) % Neut % (Auto) (45-73) % Lymph % (Auto) (20-40) % [place] % (Auto) (2-11) % Eos % (Auto) (0-4) % Baso % (Auto) (0-2) % Lymph # (Auto) (1.2-4.9) X10*3/uL [place] # (Auto) (0.1-1.2) X10*3/uL Eos # (Auto) (0.0-0.4) X10*3/uL Baso # (Auto) (0.0-0.2) X10*3/uL Abs Immat Gran (auto) (0.00-0.03) X10*3/uL Absolute Neuts (auto) (2.0-8.3) X10*3/uL Absolute Nucleated RBC (0.0-0.012) X10*3/uL Nucleated RBC % (auto) (0.0-0.2) /100WBC PT (9.9-13.0) SEC INR (0.9-1.1) APTT (24.1-38.0) SEC Sodium (135-145) mmol/L Potassium (3.3-5.1) mmol/L Chloride (96-108) mmol/L Carbon Dioxide (22-29) mmol/L Anion Gap (12-20) BUN (9-16) mg/dL Creatinine (0.5-1.4) mg/dL Estim Creat Clear Calc Estimated GFR Random Glucose (60-115) mg/dL Lactic Acid (0.5-2.0) mmol/L Calcium (8.4-10.2) mg/dL Magnesium (1.6-2.6) mg/dL Total Bilirubin (0.0-1.0) mg/dL Direct Bilirubin (0.0-0.5) mg/dL AST (5-37) U/L ALT (0-40) U/L Alkaline Phosphatase (39-117) U/L C-Reactive Protein (< or = 0.50) mg/dL B-Natriuretic Peptide (<100) pg/mL Total Protein (6.5-8.0) g/dL Albumin (3.5-5.0) g/dL Urine Color YELLOW Urine Appearance CLEAR Urine pH 6.0 (5.0-8.0) Ur Specific [place] <= 1.005 (1.005-1.025) Urine Protein TRACE (NEG-TRACE) MG/DL Urine Glucose (UA) NEG (NEG) MG/DL Urine Ketones NEG (NEG) MG/DL Urine Blood NEG (NEG) Urine Nitrite NEG (NEG) Ur Leukocyte Esterase NEG (NEG) COVID-19 (CAROLINE) (Negative) COVID-19 Clin Com Discharge Plan Discharge Clinical Impression: Abdominal fluid collection, CRP elevated Patient Disposition: Admitted As Inpatient
[2021-05-26 13:20] LABS: MANUAL DIFF FLAG NO
[2021-05-26 13:24] LABS: Basophils Percent Auto 0.2 % (0-2); Eosinophils Absolute Auto 0.1 X10*3/uL (0.0-0.4); Hematocrit 34.3 % (42-52); Imm Gran Abs Auto 0.11 X10*3/uL (0.00-0.03); Lymphocytes Percent Auto 8.2 % (20-40); Mean Corpuscular HGB Conc 32.1 g/dl (31.0-36.0); Mean Corpuscular Hemoglobin 27.4 pg (27.0-33.0); Mean Corpuscular Volume 85.3 fL (80-98); Mean Platelet Volume 10.1 fL (9.4-12.4); Monocytes Absolute Auto 0.5 X10*3/uL (0.1-1.2); Monocytes Percent Auto 4.6 % (2-11); Neutrophils Absolute Auto 9.8 X10*3/uL (2.0-8.3); Platelet Count 228 X10*3/uL (160-400); Red Blood Count 4.02 X10*6/uL (4.60-5.80); Red Cell Distribution Width 15.9 % (11.0-16.0); White Blood Count 11.5 X10*3/uL (4.8-10.8)
[2021-05-26] MEDS: cefEPime HCl 2 GM in 0.9 % Sodium Chloride 50 ML IV (13:27)
[2021-05-26] MEDS: HYDROmorphone HCl 0.5 MG/0.5 ML SYRINGE IVPUSH (13:35)
[2021-05-26 13:36] LABS: INTERNATIONAL NORM RATIO 2.3 (0.9-1.1); Prothrombin Time 26.1 SEC (9.9-13.0)
[2021-05-26 13:43] LABS: COVID-19 Test Negative (Negative)
[2021-05-26 13:44] LABS: Lactic Acid 1.1 mmol/L (0.5-2.0)
--- NOTE | 2021-05-26 13:49 | PHA.MEDREC ---
Pharmacy Consult ? Medication Reconciliation Pharmacy has completed the medication reconciliation. Patient reports taking zolpidem 10mg every night.
[2021-05-26 13:53] LABS: Alanine Aminotransferase < 6 U/L (0-40); Albumin Level 2.3 g/dL (3.5-5.0); Alkaline Phosphatase 108 U/L (39-117); Anion Gap 18 (12-20); Aspartate Amino Transferase 25 U/L (5-37); Bilirubin Direct < 0.2 mg/dL (0.0-0.5); Bilirubin Total 0.4 mg/dL (0.0-1.0); Blood Urea Nitrogen 26 mg/dL (9-16); Calcium 7.5 mg/dL (8.4-10.2); Carbon Dioxide 22 mmol/L (22-29); Chloride 103 mmol/L (96-108); Creatinine Clr Calc Pharmacy 92.4; Estimated Glomerular Filt Rate > 60; Glucose Random 96 mg/dL (60-115); Magnesium 1.6 mg/dL (1.6-2.6); Potassium 3.1 mmol/L (3.3-5.1); Sodium 140 mmol/L (135-145); Total Protein 5.8 g/dL (6.5-8.0)
[2021-05-26 13:57] LABS: B Type Natriuretic Peptide 1330 pg/mL (<100)
[2021-05-26] MEDS: iohexoL 350 MG/ML 100 ML INFUS..BTL IV (14:35)
[2021-05-26 16:55] LABS: Glucose Urine UA NEG (NEG); Leukocyte Esterase Urine NEG (NEG); Nitrite Urine NEG (NEG); Specific Gravity - Urine <= 1.005 (1.005-1.025); Urine Blood NEG (NEG); Urine Ketones NEG (NEG); Urine Protein TRACE MG/DL (NEG-TRACE)
[2021-05-26 16:56] LABS: Appearance Urine CLEAR; Color Urine YELLOW
--- NOTE | 2021-05-26 16:57 | PM.HPGS ---
History of Present Illness History of Present Illness Date of Service: 05/29/21 Chief complaint: ABSCESS DRAINAGE S.T. ABD WALL MASS Narrative: Denzel Hammond JR is a 61 year old male who is wellknown to the surgical service, here in the ED for worsening swelling and drainage from his right flank area. His current illness dates all the way back to January 2019 when he underwent appendectomy for perforated appendicitis. He had subsequent abscesses on the right side after that and he eventually underwent resection of the cecum. He has since been having recurrent abscesses on the right gutter as well as the abdominal wall and he has undergone CT drainage multiple times. The last time he had IR drainage was last Dec 2019. He however has noticed worsening swelling of the abdominal wall on the right lower quadrant and right flank the past few days with a lot of drainage from his old incision this morning. HE says this opened up again this morning because of the fluid accumulation. He therefore came o the ED. He denies fever or chills. He has multiple medical problems including DM, CHF and cardiomypathy. He is on Xarelto for Afib. Review of Systems Constitutional: Constitutional: Denies chills and Denies fever(s) Cardiovascular: Cardiovascular: Denies chest pain, Denies dyspnea and Denies dyspnea on exertion Respiratory: Respiratory: Denies cough, Denies dyspnea and Denies dyspnea on exertion Gastrointestinal: Gastrointestinal: Denies hematochezia and Denies change in bowel habits Genitourinary: Genitourinary: Denies hematuria and Denies difficulty urinating Musculoskeletal: Musculoskeletal: Denies back pain and Denies limited range of motion Neurologic: Denies focal weakness and Denies convulsions Psychiatric: Psychiatric: Denies depression and Denies mood swings [facility] Past Medical History Medical History (Updated 05/27/21 @ 09:28 by Garrett Grande MD) Abdominal wall abscess Acute appendicitis CHF (congestive heart failure) CHF (congestive heart failure) CVA (cerebral vascular accident) Diabetes Diabetes mellitus Heart disease Heart failure with reduced ejection fraction History of left below knee amputation HTN (hypertension) Ischemic cardiomyopathy Paroxysmal atrial fibrillation Family History Family History Father Stroke Aortic valve replaced Mother No problems noted. Surgical History Surgical History H/O exploratory laparotomy H/O right hemicolectomy History of transmetatarsal amputation of right foot Hx of cholecystectomy Social History Social History Household Members: Family Household Members Other:: Home w/ mother whom he cares for Housing: House Do you presently have visiting nurse or other home services: Yes (At home wound care nurse) Alcohol intake: former Patient Tobacco Use Status: Former Tobacco user service: No Current occupational status: retired and disabled Meds Allergies Allergy/AdvReac Type Severity Reaction Status Date / Time vancomycin [VANCOMYCIN] Allergy Severe STOMACH Verified 05/26/21 11:08 UPSET, ill Active Medications: Current Medications Generic Name Dose Route Start Last Admin Trade Name Freq PRN Reason Stop Dose Admin Pharmacy Consult 1 each 05/26/21 12:20 Consult Rx Perform Med Rec MISCELLANE ONCE PRN Consult order Home Medications Medication Instructions Recorded Confirmed Last Taken Type multivitamin 1 tab PO DAILY 04/02/21 05/26/21 05/26/21 History amiodarone 200 mg tablet 200 mg PO DAILY 05/07/21 05/26/21 05/26/21 History furosemide 40 mg tablet 40 mg PO BID tab 05/07/21 05/26/21 05/26/21 History gemfibrozil 600 mg tablet 600 mg PO BID 05/07/21 05/26/21 05/26/21 History spironolactone 25 mg tablet 25 mg PO DAILY tab 05/07/21 05/26/21 05/26/21 History trazodone 50 mg tablet 50 mg PO BEDTIME 05/07/21 05/26/21 05/26/21 History zolpidem 10 mg tablet 10 mg PO BEDTIME 05/07/21 05/26/21 05/25/21 History ondansetron HCl 1 tab PO Q8H PRN 05/26/21 05/26/21 Unknown History valsartan 80 mg PO DAILY 05/26/21 05/26/21 05/26/21 History Physical Exam Vital Signs: Vital Signs: Last Vital Signs Temp 97.8 F 05/26/21 16:00 Pulse 68 05/26/21 16:00 Resp 16 05/26/21 16:00 BP 119/62 05/26/21 16:00 Pulse Ox 96 07/12/21 16:00 Body Mass Index 27.7 Const: General: comfortable and no acute distress Orientation/consciousness: patient oriented x3 Neck: Neck: Yes no lymphadenopathy Resp: Auscultation: clear to auscultation bilaterally Cardio: Rhythm: regular rhythm GI: Other: large induration, right flank area with draining sinus, also open wound with drainage on the right lower quadrant along old incision; Palpation (GI): Soft to palpation, nontender and no guarding Neuro: General: patient oriented x3 Extrem: Other: left BKA stump Results Results Labs: Short CBC 05/26/21 Range/Units 13:12 WBC 11.5 H (4.8-10.8) X10*3/uL Hgb 11.0 L (14.0-18.0) g/dl Hct 34.3 L D (42-52) % Plt Count 228 (160-400) X10*3/uL BMP 05/26/21 13:12 Sodium 140 Potassium 3.1 L Chloride 103 Carbon Dioxide 22 BUN 26 H D Creatinine 0.99 Calcium 7.5 L Liver Function 05/26/21 Range/Units 13:12 Total Bilirubin 0.4 (0.0-1.0) mg/dL Direct Bilirubin < 0.2 (0.0-0.5) mg/dL AST 25 D (5-37) U/L ALT < 6 (0-40) U/L Alkaline Phosphatase 108 (39-117) U/L Albumin 2.3 L D (3.5-5.0) g/dL Urine 05/26/21 Range/Units 16:40 Urine Color YELLOW Urine Appearance CLEAR Urine pH 6.0 (5.0-8.0) Ur Specific [place] <= 1.005 (1.005-1.025) Urine Protein TRACE (NEG-TRACE) MG/DL Urine Glucose (UA) NEG (NEG) MG/DL Abdomen CT scan report/results: report reviewed and image reviewed CT scan - pelvis: report reviewed and image reviewed Assessment and Plan (1) Abdominal wall abscess: Status: Acute He has a recurrence of the abdominal wall fluid collection on the right flank area. I have reviewed his CT scan images and this appears to be much worse compared to an outpt CT done last Mar, 2021. I will schedule him for CT drainage as an inpt as discussed with the radiologist. He is however, on Xarelto, so they may not be able to do this until Wednesday. Another option would be doing an open I and D in the OR although this will require some anesthesia. I will start him on empiric abx with Zosyn. A Hospitalist consult will be requested as he has multiple medical problems. Otherwise, he is hemodynamically stable and nontoxic looking. He understands the plan well. I will inform Dr. Lombardo of this admission in the morning. Quality Stroke Does the patient have a stroke diagnosis?: No VTE Prior VTE?: No VTE Risk Level:: Medical - moderate - high VTE Device Contraindication: N/A - Device Ordered VTE Drug Contraindication: N/A - Med Ordered Procedures Date of Service Date of Service: 05/26/21
[2021-05-26] MEDS: Piperacillin Sodium/Tazobactam 3.375 GM in 0.9 % Sodium Chloride 50 ML IV (18:22)
--- NOTE | 2021-05-26 19:39 | PC.NURSE ---
PT REQUESTED AND GIVEN A BOOST UP IN BED/REPOSITION. URINAL EMPTIED, APROX 700 ML.
[2021-05-26] MEDS: traZODone HCL 50 MG TABLET PO (20:00)
[2021-05-26] MEDS: carvediloL 6.25 MG TABLET PO (20:00)
[2021-05-26] MEDS: Zolpidem Tartrate 5 MG TABLET PO (20:00)
[2021-05-26] MEDS: Furosemide 40 MG TABLET PO (20:00)
--- NOTE | 2021-05-26 21:16 | PC.NURSE ---
this RN TT Dr Connor Arthur regarding pt's pain. Dr Arthur replied via [employer] Text phone order- Morphine 2 mg IV q3h prn for pain Order placed
[2021-05-26] MEDS: Morphine Sulfate 2 MG/ML CARTRIDGE IVPUSH (21:38)
--- NOTE | 2021-05-26 21:38 | MHC.CM.PN ---
Addendum entered by Alicia Fonseca 05/26/21 21:45: HCP/sister Libia Morejon ([phone]). HCP is on file. Original Note: CM met with patient. IMM reviewed and signed per protocol 05/26/21@2120. A&OX3. Very pleasant man. L BKA. Has prosthesis. Uses cane, walker and wheelchair. Lives with 90 year old mother and helps to care for her. Has no current services, but has used [facility] for half-way in the past. Pt has draining wounds. ? wound care vs [facility] at d/c. Pt would like [facility]. Brother to provide transportation home at discharge. No referrals placed yet. CM to follow for d/c needs.
[2021-05-26] MEDS: gemfibroziL 600 MG TABLET PO (22:43)
[2021-05-27] VITALS (9 sets, daily range): BP systolic 133–153; BP diastolic 63–78; PULSE 77–100; RESP 18–20; TEMP 36–36.8; O2SAT 92–97
[2021-05-27] MEDS: 0.9 % Sodium Chloride Flush 3 ML SYRINGE IVFLUSH ×3 (01:32→16:41)
[2021-05-27] MEDS: Piperacillin Sodium/Tazobactam 3.375 GM in 0.9 % Sodium Chloride 50 ML IV ×4 (01:32→18:21)
[2021-05-27] MEDS: Morphine Sulfate 2 MG/ML CARTRIDGE IVPUSH (01:32)
[2021-05-27 05:47] LABS: MANUAL DIFF FLAG NO
[2021-05-27 05:58] LABS: Basophils Percent Auto 0.2 % (0-2); Eosinophils Absolute Auto 0.1 X10*3/uL (0.0-0.4); Hematocrit 35.3 % (42-52); Hemoglobin 11.2 g/dl (14.0-18.0); Imm Gran Abs Auto 0.13 X10*3/uL (0.00-0.03); Imm Gran Pct Auto 1.2 % (0.0-0.4); Lymphocytes Absolute Auto 0.7 X10*3/uL (1.2-4.9); Lymphocytes Percent Auto 6.9 % (20-40); Mean Corpuscular HGB Conc 31.7 g/dl (31.0-36.0); Mean Corpuscular Hemoglobin 27.4 pg (27.0-33.0); Mean Corpuscular Volume 86.3 fL (80-98); Mean Platelet Volume 10.3 fL (9.4-12.4); Monocytes Absolute Auto 0.4 X10*3/uL (0.1-1.2); Monocytes Percent Auto 4.1 % (2-11); Neutrophils Percent Auto 86.6 % (45-73); Platelet Count 235 X10*3/uL (160-400); Red Blood Count 4.09 X10*6/uL (4.60-5.80); Red Cell Distribution Width 15.9 % (11.0-16.0); White Blood Count 10.4 X10*3/uL (4.8-10.8)
[2021-05-27 06:23] LABS: Anion Gap 13 (12-20); Blood Urea Nitrogen 21 mg/dL (9-16); Calcium 7.5 mg/dL (8.4-10.2); Carbon Dioxide 28 mmol/L (22-29); Chloride 103 mmol/L (96-108); Creatinine Clr Calc Pharmacy 117.3; Estimated Glomerular Filt Rate > 60; Glucose Random 119 mg/dL (60-115); Potassium 2.3 mmol/L (3.3-5.1); Sodium 142 mmol/L (135-145)
--- NOTE | 2021-05-27 07:51 | P.CONIM_ITS ---
History of Present Illness Data of Consult Service Date: 05/27/21 Primary Care Provider: Connor Mcdaniel MD [facility] Reason for consult: Medical consultation 61-year-old male with a past medical history of peripheral arterial disease status post multiple amputation in the bilateral lower extremities, AFIB on Xarelto, diabetes mellitus, perforated apendicitis in 2019 s/p Ex lap, and following this has had recurrent abdominal abscesses that had required drainages, last occurance was December of last year. Patient is admitted to surgery due to recuurence of abscess and there is plan for him to have drainage either by IR or possible in the OR. Procedure is presently on hold as he has taken Xarelto prior to coming in. He has no fever, WBC is within normal. He has been doing well otherwise. Review of Systems Review of Systems: Gen: no fever Resp: no sob, no cough CV: no chest, no AIKEN, no leg edema GI: No n/v, no abd pain, draingage from abscess Neuro: No confusion Yes all other systems are reviewed and are negative [facility] Medical History (Updated 05/27/21 @ 09:28 by Garrett Grande MD) Abdominal wall abscess Acute appendicitis CHF (congestive heart failure) CHF (congestive heart failure) CVA (cerebral vascular accident) Diabetes Diabetes mellitus Heart disease Heart failure with reduced ejection fraction History of left below knee amputation HTN (hypertension) Ischemic cardiomyopathy Paroxysmal atrial fibrillation Family History Father Stroke Aortic valve replaced Mother No problems noted. Surgical History H/O exploratory laparotomy H/O right hemicolectomy History of transmetatarsal amputation of right foot Hx of cholecystectomy Social History Household Members: Family Household Members Other:: Home w/ mother whom he cares for Housing: House Do you presently have visiting nurse or other home services: Yes (At home wound care nurse) Alcohol intake: former Patient Tobacco Use Status: Former Tobacco user Use of substances other than those prescribed or required for medical reasons: No Have you been hit, kicked, punched, or otherwise hurt by someone within the past year? If so, by whom?: No Do you feel safe in your current relationship?: No Current Relationship Is there a partner from a previous relationship who is making you feel unsafe now?: No Are you made to feel afraid or neglected: No Judaism Healthcare Practices: Tenriism Advance Directives: No Advance Directives Information Provided: Yes Do you have thoughts of harming others: None Do you have a plan to hurt others: No Plan Recently lost weight without trying: No Eating poorly because of decreased appetite: No Nutrition Risks: No Nutritional Risk Poor oral hygiene: No service: No Current occupational status: retired and disabled Meds Allergies Allergy/AdvReac Type Severity Reaction Status Date / Time vancomycin [VANCOMYCIN] Allergy Severe STOMACH Verified 05/26/21 11:08 UPSET, ill Active Medications: Current Medications Generic Name Dose Route Start Last Admin Trade Name Freq PRN Reason Stop Dose Admin Carvedilol 6.25 mg 05/26/21 21:00 05/26/21 20:00 Carvedilol 6.25 Mg Tablet PO 6.25 mg BID KANCHAN Administration Protocol Furosemide 40 mg 05/26/21 21:00 05/26/21 20:00 Furosemide 40 Mg Tablet PO 40 mg BID KANCHAN Administration Protocol Gemfibrozil 600 mg 05/26/21 21:00 05/26/21 22:43 Gemfibrozil 600 Mg Tablet PO 600 mg BID KANCHAN Administration Piperacillin Sod/Tazobactam 50 mls @ 100 mls/hr 05/26/21 18:00 05/27/21 06:21 Sod 3.375 gm/ Sodium Chloride IV 100 mls/hr Q6H KANCHAN Administration Morphine Sulfate 2 mg 05/26/21 21:14 05/27/21 01:32 Morphine Sulfate 2 Mg/Ml Cartridge IVPUSH 2 mg Q3H PRN Administration Pain, Severe (Pain Scale 7-10) Multivitamins/Vitamin C 1 tab 05/27/21 09:00 Multivitamin Tablet PO DAILY [facility] Pharmacy Consult 1 each 05/26/21 12:20 Consult Rx Perform Med Rec MISCELLANE ONCE PRN Consult order Potassium Chloride 40 meq 05/27/21 07:00 Potassium Chloride Packet 20 Meq Packet PO 05/27/21 11:01 Q4H [facility] Sodium Chloride 3 ml 05/27/21 00:00 05/27/21 01:32 0.9 % Sodium Chloride Flush 3 Ml Syringe IVFLUSH 3 ml QSHIFT KANCHAN Administration Spironolactone 25 mg 05/27/21 09:00 Spironolactone 25 Mg Tablet PO DAILY [facility] Protocol Trazodone HCl 50 mg 05/26/21 21:00 05/26/21 20:00 Trazodone Hcl 50 Mg Tablet PO 50 mg BEDTIME KANCHAN Administration Valsartan 80 mg 05/27/21 09:00 Valsartan 80 Mg Tablet PO DAILY [facility] Protocol Zolpidem Tartrate 5 mg 05/26/21 21:00 05/26/21 20:00 Zolpidem Tartrate 5 Mg Tablet PO 5 mg BEDTIME KANCHAN Administration Home Medications Medication Instructions Recorded Confirmed Last Taken Type multivitamin 1 tab PO DAILY 04/02/21 05/26/21 05/26/21 History amiodarone 200 mg tablet 200 mg PO DAILY 05/07/21 05/26/21 05/26/21 History furosemide 40 mg tablet 40 mg PO BID tab 05/07/21 05/26/21 05/26/21 History gemfibrozil 600 mg tablet 600 mg PO BID 05/07/21 05/26/21 05/26/21 History spironolactone 25 mg tablet 25 mg PO DAILY tab 05/07/21 05/26/21 05/26/21 History trazodone 50 mg tablet 50 mg PO BEDTIME 05/07/21 05/26/21 05/26/21 History zolpidem 10 mg tablet 10 mg PO BEDTIME 05/07/21 05/26/21 05/25/21 History ondansetron HCl 1 tab PO Q8H PRN 05/26/21 05/26/21 Unknown History valsartan 80 mg PO DAILY 05/26/21 05/26/21 05/26/21 History Physical Exam Vital Signs and Narrative: Vital Signs: Last Vital Signs Temp 96.8 F 05/27/21 07:16 Pulse 96 05/27/21 07:16 Resp 20 05/27/21 07:16 BP 133/63 05/27/21 07:16 Pulse Ox 94 05/27/21 07:16 Body Mass Index 27.7 Const: Other: Constitutional Awake and Alert, No apparent distress Neck Supple, No lymphadenopathy Cardiovascular RRR, No M/R/G, S1 S2, No S3 S4, No pedal edema Respiratory Lungs clear, No respiratory distress Gastrointestinal Non tender, Non-distended, large induration, right flank area with draining sinus, also open wound with drainage on the right lower quadrant along old incision Skin No rash Neurological Alert & oriented x3 Psychological Appropriate affect Results Labs CBC and Chem 7: 05/27/21 04:57 05/27/21 04:57 Labs: Laboratory Results - last 24 hr 05/26/21 05/26/21 05/26/21 13:12 13:12 13:12 MCV 85.3 MCH 27.4 MCHC 32.1 RDW 15.9 Plt Count 228 MPV 10.1 Immature Gran % (Auto) 1.0 H Neut % (Auto) 85.0 H Lymph % (Auto) 8.2 L [place] % (Auto) 4.6 Eos % (Auto) 1.0 Baso % (Auto) 0.2 Lymph # (Auto) 1.0 L [place] # (Auto) 0.5 Eos # (Auto) 0.1 Baso # (Auto) 0.0 Abs Immat Gran (auto) 0.11 H Absolute Neuts (auto) 9.8 H Absolute Nucleated RBC 0.000 Nucleated RBC % (auto) 0.0 PT 26.1 H INR 2.3 H APTT 43.0 H Anion Gap 18 Estim Creat Clear Calc 92.4 Estimated GFR > 60 Random Glucose 96 Lactic Acid Calcium 7.5 L Magnesium 1.6 Total Bilirubin 0.4 Direct Bilirubin < 0.2 AST 25 D ALT < 6 Alkaline Phosphatase 108 C-Reactive Protein 23.60 H B-Natriuretic Peptide Total Protein 5.8 L Albumin 2.3 L D Urine Color Urine Appearance Urine pH Ur Specific [place] Urine Protein Urine Glucose (UA) Urine Ketones Urine Blood Urine Nitrite Ur Leukocyte Esterase COVID-19 (CAROLINE) COVID-19 Clin Com 05/26/21 05/26/21 05/26/21 13:12 13:12 13:12 MCV MCH MCHC RDW Plt Count MPV Immature Gran % (Auto) Neut % (Auto) Lymph % (Auto) [place] % (Auto) Eos % (Auto) Baso % (Auto) Lymph # (Auto) [place] # (Auto) Eos # (Auto) Baso # (Auto) Abs Immat Gran (auto) Absolute Neuts (auto) Absolute Nucleated RBC Nucleated RBC % (auto) PT INR APTT Anion Gap Estim Creat Clear Calc Estimated GFR Random Glucose Lactic Acid 1.1 Calcium Magnesium Total Bilirubin Direct Bilirubin AST ALT Alkaline Phosphatase C-Reactive Protein B-Natriuretic Peptide 1330 H Total Protein Albumin Urine Color Urine Appearance Urine pH Ur Specific [place] Urine Protein Urine Glucose (UA) Urine Ketones Urine Blood Urine Nitrite Ur Leukocyte Esterase COVID-19 (CAROLINE) Negative COVID-19 Clin Com See Note 05/26/21 05/27/21 05/27/21 16:40 04:57 04:57 MCV 86.3 MCH 27.4 MCHC 31.7 RDW 15.9 Plt Count 235 MPV 10.3 Immature Gran % (Auto) 1.2 H Neut % (Auto) 86.6 H Lymph % (Auto) 6.9 L [place] % (Auto) 4.1 Eos % (Auto) 1.0 Baso % (Auto) 0.2 Lymph # (Auto) 0.7 L [place] # (Auto) 0.4 Eos # (Auto) 0.1 Baso # (Auto) 0.0 Abs Immat Gran (auto) 0.13 H Absolute Neuts (auto) 9.0 H Absolute Nucleated RBC 0.000 Nucleated RBC % (auto) 0.0 PT INR APTT Anion Gap 13 Estim Creat Clear Calc 117.3 Estimated GFR > 60 Random Glucose 119 H Lactic Acid Calcium 7.5 L Magnesium Total Bilirubin Direct Bilirubin AST ALT Alkaline Phosphatase C-Reactive Protein B-Natriuretic Peptide Total Protein Albumin Urine Color YELLOW Urine Appearance CLEAR Urine pH 6.0 Ur Specific [place] <= 1.005 Urine Protein TRACE Urine Glucose (UA) NEG Urine Ketones NEG Urine Blood NEG Urine Nitrite NEG Ur Leukocyte Esterase NEG COVID-19 (CAROLINE) COVID-19 Clin Com Imaging Radiologist's Impressions: Impressions Abdomen/Pelvis CT 05/26/21 12:21 IMPRESSION: Small amount of fluid and air in the right lateral abdominal wall muscles extending to the right iliopsoas muscle not appreciably changed from March 2021 exam. There is increasing air and fluid collection involving the right lateral abdominal wall muscles and adjacent overlying fat that measures 5 x 5 x 3 cm. This has tracks of air that extend to the skin likely representing a sinus tract or fistula. Diverticulosis of the colon. Renal cysts. Stable left adrenal nodule. Small amount of ascites in the pelvis. Stable small right pleural effusion or pleural thickening and decreased in small to moderate left pleural effusion. Assessment and Plan (1) Diabetes mellitus: Status: Acute (2) Abdominal wall abscess: Status: Acute 61 year old male with DM, AFIB, CAD, CAD, CM with combined systolic and juan francisco stolic Heart failure here with with recurrent abdominal wall abscess Abdominal wall abscess--surgery is addresing this, he will either need IR drainage or drainage in OR. Hold Xarelto, agree with empiric Abx, cultures should be obtained at drainage HypOkalemia--he was not able to tolerate oral potassium--so will do IV potassium, check magnesium and repeat potassium later Chronic combined systolic and diastolic heart failure--presently compensated -continue Lasix, Aldactne, Coreg and Valsarta Diabetes-- not on med, SSI, recheck A1C Paroxysmal atrial fibrillation--rate cntrolled, continue Coreg, Amiodarone, Xarelto on hold until after procedure
[2021-05-27] MEDS: gemfibroziL 600 MG TABLET PO ×2 (08:36→22:38)
[2021-05-27] MEDS: carvediloL 6.25 MG TABLET PO ×2 (08:36→22:38)
[2021-05-27] MEDS: Spironolactone 25 MG TABLET PO (08:37)
[2021-05-27] MEDS: Furosemide 40 MG TABLET PO ×2 (08:37→22:38)
[2021-05-27] MEDS: Valsartan 80 MG TABLET PO (08:37)
[2021-05-27] MEDS: Multivitamin TABLET 1 TAB PO (08:37)
[2021-05-27] MEDS: Potassium Chloride Packet 20 MEQ PACKET 40 MEQ PO (08:39)
--- NOTE | 2021-05-27 10:18 | PC.NURSE ---
Skin/wond assessment completed today. Patient has 2 right abdominal incisions that have small openings. The right lateral is a 3 cm deep opening draining purulent liquid- culture taken and sent to lab., covered with ABD pad and gauze. Right lower abdomen wound is granulated, cleanse with wound cleanser, Woundre's gel applied and covered with gauze. No other skin issues found.
[2021-05-27] MEDS: Potassium Chloride/H20 20 MEQ/100 ML PIGGYBACK 100 MEQ IV (11:05)
[2021-05-27 11:29] LABS: Glucose, Whole Blood 108 mg/dL (60-115)
[2021-05-27] MEDS: ondansetron HCL 4 MG/2 ML VIAL IVPUSH ×2 (11:30→20:11)
[2021-05-27 16:42] LABS: Glucose, Whole Blood 106 mg/dL (60-115)
[2021-05-27 18:16] LABS: Anion Gap 14 (12-20); Blood Urea Nitrogen 16 mg/dL (9-16); Calcium 7.8 mg/dL (8.4-10.2); Carbon Dioxide 29 mmol/L (22-29); Chloride 103 mmol/L (96-108); Creatinine Clr Calc Pharmacy 127.1; Estimated Glomerular Filt Rate > 60; Glucose Random 101 mg/dL (60-115); Potassium 2.5 mmol/L (3.3-5.1); Sodium 143 mmol/L (135-145)
[2021-05-27] MEDS: Potassium Chloride/H20 10 MEQ/100 ML PIGGYBACK 100 MEQ IV ×2 (19:42→22:38)
[2021-05-27 20:47] LABS: Glucose, Whole Blood 107 mg/dL (60-115)
[2021-05-27] MEDS: traZODone HCL 50 MG TABLET PO (22:38)
[2021-05-27] MEDS: Zolpidem Tartrate 5 MG TABLET PO (22:38)
[2021-05-28] VITALS (12 sets, daily range): BP systolic 127–153; BP diastolic 64–80; PULSE 69–99; RESP 8–19; TEMP 36–36.9; O2SAT 92–96
[2021-05-28] MEDS: Piperacillin Sodium/Tazobactam 3.375 GM in 0.9 % Sodium Chloride 50 ML IV ×4 (00:53→18:24)
[2021-05-28] MEDS: 0.9 % Sodium Chloride Flush 3 ML SYRINGE IVFLUSH ×3 (00:53→20:28)
[2021-05-28] MEDS: Morphine Sulfate 2 MG/ML CARTRIDGE IVPUSH (03:57)
--- NOTE | 2021-05-28 05:10 | PC.NURSE ---
CARE ASSUMED 23:15...NAPPING INTERMITTANTLY...AWAKE SPONTANEOUSLY..ALERT..ORIENTED X3..RESPIRATIONS EASY ON ROOM AIR...ABDOMINAL DRESSING RIGT LATERAL SIDE SOILED WITH BROWNISH DRAINAGE OVERNIGHT... MY ABCESS OPENED UP AGAIN PER PATIENT...DRESSING REMOVED..ADDITIONAL LIQUIED MUCOID BROWN DRAINAGE FROM SITE...DRESSING CHANGED/RE-APPLIED...2ND DRESSING RLQ DRY INTACT...MEDICATED PRN MORPHINE PER PATIENT REQUEST...CURRENTLY DOZING..NO DISTRESS
[2021-05-28 07:29] LABS: Glucose, Whole Blood 93 mg/dL (60-115)
[2021-05-28] MEDS: gemfibroziL 600 MG TABLET PO ×2 (07:42→20:26)
[2021-05-28] MEDS: Valsartan 80 MG TABLET PO (07:42)
[2021-05-28] MEDS: Furosemide 40 MG TABLET PO ×2 (07:43→20:26)
[2021-05-28] MEDS: Spironolactone 25 MG TABLET PO (07:43)
[2021-05-28] MEDS: carvediloL 6.25 MG TABLET PO ×2 (07:43→20:26)
[2021-05-28] MEDS: Multivitamin TABLET 1 TAB PO (07:44)
[2021-05-28 08:57] LABS: Anion Gap 14 (12-20); Blood Urea Nitrogen 13 mg/dL (9-16); Calcium 7.7 mg/dL (8.4-10.2); Carbon Dioxide 30 mmol/L (22-29); Chloride 102 mmol/L (96-108); Creatinine Clr Calc Pharmacy 128.9; Estimated Glomerular Filt Rate > 60; Glucose Random 99 mg/dL (60-115); Potassium 2.6 mmol/L (3.3-5.1); Sodium 143 mmol/L (135-145)
--- NOTE | 2021-05-28 08:57 | PM.PNGS ---
Subjective Subjective Date of Service: 05/28/21 Interval history: Complains of nausea and vomiting this morning, possibly related to medications. Has some abdominal pain as well in the right flank Physical Exam Vital Signs: Vital Signs: Last Vital Signs Temp 96.8 F 05/28/21 07:24 Pulse 69 05/28/21 07:43 Resp 19 05/28/21 07:24 BP 143/64 H 05/28/21 07:43 Pulse Ox 96 05/28/21 07:24 Body Mass Index 27.7 Const: General: no acute distress Orientation/consciousness: patient oriented x3 Limitations: no limitations Neck: Neck: Yes normal visual inspection and Yes no JVD Resp: Effort & Inspection: normal respiratory effort, no stridor and not tachypneic GI: Inspection: Yes obesity and Yes scar Palpation (GI): Soft to palpation and Tenderness to palpation present (GI) (Right flank at open wound) Skin: Other: Pale, multiple ecchymoses on extremities Neuro: General: patient oriented x3 Extrem: General: No cyanosis and No edema Progress Note: A&P Assessment and plan (1) Abdominal wall abscess: Status: Acute Assessment and Plan: Patient with a recurrence abdominal wall abscess with fecal discharge. Patient is scheduled for an IR drainage procedure this morning at 09:00 o'clock a.m. will continue with the IV antibiotics and pain medications as needed patient is currently off his Xarelto preparation for this procedure. Patient expressed understanding and agrees with the plan. Fall Risk Details Current Medications: Current Medications Generic Name Dose Route Start Last Admin Trade Name Freq PRN Reason Stop Dose Admin Carvedilol 6.25 mg 05/26/21 21:00 05/28/21 07:43 Carvedilol 6.25 Mg Tablet PO 6.25 mg BID KANCHAN Administration Protocol Furosemide 40 mg 05/26/21 21:00 05/28/21 07:43 Furosemide 40 Mg Tablet PO 40 mg BID KANCHAN Administration Protocol Gemfibrozil 600 mg 05/26/21 21:00 05/28/21 07:42 Gemfibrozil 600 Mg Tablet PO 600 mg BID KANCHAN Administration Piperacillin Sod/Tazobactam 50 mls @ 100 mls/hr 05/26/21 18:00 05/28/21 07:48 Sod 3.375 gm/ Sodium Chloride IV Infused Q6H KANCHAN Infusion Insulin Human Lispro 0 unit 05/27/21 11:30 05/28/21 07:33 Insulin Lispro 100 Unit/Ml 3 Ml Vial SUBCUT Not Given QIDACHS KANCHAN Protocol Morphine Sulfate 2 mg 05/26/21 21:14 05/28/21 03:57 Morphine Sulfate 2 Mg/Ml Cartridge IVPUSH 2 mg Q3H PRN Administration Pain, Severe (Pain Scale 7-10) Multivitamins/Vitamin C 1 tab 05/27/21 09:00 05/28/21 07:44 Multivitamin Tablet PO 1 tab DAILY KANCHAN Administration Ondansetron HCl 4 mg 05/27/21 11:16 05/27/21 20:11 Ondansetron Hcl 4 Mg/2 Ml Vial IVPUSH 4 mg Q8H PRN Administration Nausea and Vomiting Pharmacy Consult 1 each 05/26/21 12:20 Consult Rx Perform Med Rec MISCELLANE ONCE PRN Consult order Sodium Chloride 3 ml 05/27/21 00:00 05/28/21 07:45 0.9 % Sodium Chloride Flush 3 Ml Syringe IVFLUSH 3 ml QSHIFT KANCHAN Administration Spironolactone 25 mg 05/27/21 09:00 05/28/21 07:43 Spironolactone 25 Mg Tablet PO 25 mg DAILY KANCHAN Administration Protocol Trazodone HCl 50 mg 05/26/21 21:00 05/27/21 22:38 Trazodone Hcl 50 Mg Tablet PO 50 mg BEDTIME KANCHAN Administration Valsartan 80 mg 05/27/21 09:00 05/28/21 07:42 Valsartan 80 Mg Tablet PO 80 mg DAILY KANCHAN Administration Protocol Zolpidem Tartrate 5 mg 05/26/21 21:00 05/27/21 22:38 Zolpidem Tartrate 5 Mg Tablet PO 5 mg BEDTIME KANCHAN Administration Time Spent With Patient Time: Total time spent is greater than 50% in coordination of care (as documented) at patient's floor/unit and/or counseling patient: Time with patient: 15 - 24 minutes Procedures Date of Service Date of Service: 05/28/21 Quality Stroke Does the patient have a stroke diagnosis?: No VTE Prior VTE?: No VTE Risk Level:: Medical - moderate - high VTE Device Contraindication: N/A - Device Ordered VTE Drug Contraindication: N/A - Med Ordered
[2021-05-28] MEDS: ondansetron HCL 4 MG/2 ML VIAL IVPUSH (10:33)
--- NOTE | 2021-05-28 10:35 | HO.RADPN ---
RADIOLOGY Narrative Narrative: 1/4 inch loreta drain placed in right side fistulla tract into abdominal wall collection under ultrasound guidance. Reluctant to place new drain in small abdominal wall collection as the patient says fistulla is from old drain site. Will discuss with Dr Davidson. Suggest monitoring output and repeating CT later this week. New drain can be placed at that time if needed. no cultures sent.
[2021-05-28 11:41] LABS: Glucose, Whole Blood 95 mg/dL (60-115)
--- NOTE | 2021-05-28 12:33 | MHC.CM.PN ---
Per ROUNDS discussion, Patient is not yet medically cleared for dc (IV Morphine, IV Zofran, IV Zosyn). Home with [facility] is the goal and CM will continue to follow for possible need to adjust the dc plan.
--- NOTE | 2021-05-28 13:20 | HO.PM.IMPN ---
Subjective Subjective Date of Service: 05/28/21 Interval History: Seen in f/u for recurrent abdominal wall abscess Review of Systems Gen: no fever Resp: no sob, no cough CV: no chest, no AIKEN, no leg edema GI: No n/v, no abd pain Neuro: No confusion Constitutional Constitutional: Denies chills and Denies fever(s) Cardiovascular Cardiovascular: Denies chest pain, Denies dyspnea and Denies dyspnea on exertion Respiratory Respiratory: Denies cough, Denies dyspnea and Denies dyspnea on exertion Gastrointestinal Gastrointestinal: Denies hematochezia and Denies change in bowel habits Genitourinary Genitourinary: Denies hematuria and Denies difficulty urinating Musculoskeletal Musculoskeletal: Denies back pain and Denies limited range of motion Neurologic Neurologic: Denies focal weakness and Denies convulsions Psychiatric Psychiatric: Denies depression and Denies mood swings Physical Exam Vital Signs: Vital Signs: Last Vital Signs Temp 98.0 F 05/28/21 11:36 Pulse 99 05/28/21 11:36 Resp 18 05/28/21 11:36 BP 153/75 H 05/28/21 11:36 Pulse Ox 96 05/28/21 11:36 Body Mass Index 27.7 Const: Other: Constitutional Awake and Alert, No apparent distress Neck Supple, No lymphadenopathy Cardiovascular RRR, No M/R/G, S1 S2, No S3 S4, No pedal edema Respiratory Lungs clear, No respiratory distress Gastrointestinal Non tender, Non-distended, large induration, right flank area with draining sinus, also open wound with drainage on the right lower quadrant along old incision Skin No rash Neurological Alert & oriented x3 Psychological Appropriate affect Objective Data Current Medications Generic Name Dose Route Start Last Admin Trade Name Silvianoq PRN Reason Stop Dose Admin Carvedilol 6.25 mg 05/26/21 21:00 05/28/21 07:43 Carvedilol 6.25 Mg Tablet PO 6.25 mg BID KANCHAN Administration Protocol Furosemide 40 mg 05/26/21 21:00 05/28/21 07:43 Furosemide 40 Mg Tablet PO 40 mg BID KANCHAN Administration Protocol Gemfibrozil 600 mg 05/26/21 21:00 05/28/21 07:42 Gemfibrozil 600 Mg Tablet PO 600 mg BID KANCHAN Administration Piperacillin Sod/Tazobactam 50 mls @ 100 mls/hr 05/26/21 18:00 05/28/21 07:48 Sod 3.375 gm/ Sodium Chloride IV Infused Q6H KANCHAN Infusion Potassium Chloride 10 meq in 100 mls @ 100 mls/hr 05/28/21 13:15 IV 05/28/21 15:14 Q1H KANCHAN Insulin Human Lispro 0 unit 05/27/21 11:30 05/28/21 07:33 Insulin Lispro 100 Unit/Ml 3 Ml Vial SUBCUT Not Given QIDACHS KANCHAN Protocol Morphine Sulfate 2 mg 05/26/21 21:14 05/28/21 03:57 Morphine Sulfate 2 Mg/Ml Cartridge IVPUSH 2 mg Q3H PRN Administration Pain, Severe (Pain Scale 7-10) Multivitamins/Vitamin C 1 tab 05/27/21 09:00 05/28/21 07:44 Multivitamin Tablet PO 1 tab DAILY KANCHAN Administration Ondansetron HCl 4 mg 05/27/21 11:16 05/28/21 10:33 Ondansetron Hcl 4 Mg/2 Ml Vial IVPUSH 4 mg Q8H PRN Administration Nausea and Vomiting Pharmacy Consult 1 each 05/26/21 12:20 Consult Rx Perform Med Rec MISCELLANE ONCE PRN Consult order Potassium Chloride 40 meq 05/28/21 13:07 Potassium Chloride Packet 20 Meq Packet PO 05/28/21 13:08 ONCE ONE Sodium Chloride 3 ml 05/27/21 00:00 05/28/21 07:45 0.9 % Sodium Chloride Flush 3 Ml Syringe IVFLUSH 3 ml QSHIFT KANCHAN Administration Spironolactone 25 mg 05/27/21 09:00 05/28/21 07:43 Spironolactone 25 Mg Tablet PO 25 mg DAILY KANCHAN Administration Protocol Trazodone HCl 50 mg 05/26/21 21:00 05/27/21 22:38 Trazodone Hcl 50 Mg Tablet PO 50 mg BEDTIME KANCHAN Administration Valsartan 80 mg 05/27/21 09:00 05/28/21 07:42 Valsartan 80 Mg Tablet PO 80 mg DAILY KANCHAN Administration Protocol Zolpidem Tartrate 5 mg 05/26/21 21:00 05/27/21 22:38 Zolpidem Tartrate 5 Mg Tablet PO 5 mg BEDTIME KANCHAN Administration Labs CBC & Chem 7: 05/27/21 04:57 05/28/21 08:07 Labs: Laboratory Results - last 24 hr 05/27/21 05/27/21 05/27/21 16:39 17:26 20:16 Sodium 143 Potassium 2.5 L* Chloride 103 Carbon Dioxide 29 Anion Gap 14 BUN 16 Creatinine 0.72 Estim Creat Clear Calc 127.1 Estimated GFR > 60 POC Glucose 106 107 Random Glucose 101 Calcium 7.8 L 05/28/21 05/28/21 05/28/21 07:24 08:07 11:37 Sodium 143 Potassium 2.6 L Chloride 102 Carbon Dioxide 30 H Anion Gap 14 BUN 13 Creatinine 0.71 Estim Creat Clear Calc 128.9 Estimated GFR > 60 POC Glucose 93 95 Random Glucose 99 Calcium 7.7 L Microbiology Microbiology Results: Microbiology 05/26/21 13:12 Blood Culture - Preliminary Blood - Venous No growth after 24 hours. 05/27/21 09:32 Gram Stain - Final Abscess Intra-abdominal Routine Culture - Preliminary Anaerobic Culture - Preliminary Culture in progress. 05/26/21 13:30 Blood Culture - Final Blood - Venous Coag negative Staphylococcus Quality Stroke Does the patient have a stroke diagnosis?: No VTE Prior VTE?: No VTE Risk Level:: Medical - moderate - high VTE Device Contraindication: N/A - Device Ordered VTE Drug Contraindication: N/A - Med Ordered Assessment and Plan (1) Diabetes mellitus: Status: Acute (2) Abdominal wall abscess: Status: Acute Assessment and Plan: 61 year old male with DM, AFIB, CAD, CAD, CM with combined systolic and diastolic Heart failure here with with recurrent abdominal wall abscess Abdominal wall abscess--surgery is addresing this, he will have IR drainage today. Hold Xarelto, agree with empiric Abx, cultures should be obtained at drainage HypOkalemia--K remain low, add IV and PO if able to take, o/w will need more iv Chronic combined systolic and diastolic heart failure--presently compensated -continue Lasix, Aldactne, Coreg and Valsarta Diabetes-- not on med, SSI, recheck A1C Paroxysmal atrial fibrillation--rate cntrolled, continue Coreg, Amiodarone, Xarelto on hold until after procedure
[2021-05-28] MEDS: Potassium Chloride/H20 10 MEQ/100 ML PIGGYBACK 100 MEQ IV ×3 (15:13→20:27)
[2021-05-28 16:02] LABS: Glucose, Whole Blood 123 mg/dL (60-115)
[2021-05-28 18:01] LABS: CDiff Gene PCR NEGATIVE (Negative)
[2021-05-28] MEDS: traZODone HCL 50 MG TABLET PO (20:26)
[2021-05-28] MEDS: Zolpidem Tartrate 5 MG TABLET PO (20:26)
[2021-05-28 20:30] LABS: Glucose, Whole Blood 123 mg/dL (60-115)
[2021-05-29] VITALS (14 sets, daily range): BP systolic 108–151; BP diastolic 51–83; PULSE 65–79; RESP 14–20; TEMP 36.1–37; O2SAT 92–100
[2021-05-29] MEDS: Piperacillin Sodium/Tazobactam 3.375 GM in 0.9 % Sodium Chloride 50 ML IV ×3 (01:04→17:56)
[2021-05-29 06:54] LABS: Anion Gap 12 (12-20); Blood Urea Nitrogen 10 mg/dL (9-16); Calcium 7.8 mg/dL (8.4-10.2); Carbon Dioxide 31 mmol/L (22-29); Chloride 101 mmol/L (96-108); Creatinine Clr Calc Pharmacy 134.6; Estimated Glomerular Filt Rate > 60; Glucose Random 124 mg/dL (60-115); Potassium 2.8 mmol/L (3.3-5.1); Sodium 141 mmol/L (135-145)
--- NOTE | 2021-05-29 07:53 | PC.NURSE ---
Patient had [place] drain placed in abdominal fistula yesterday morning. At 194, this RN removed the saturated dressing and the Judith drain came out. This RN called Radiology and was told IR is not credit resolution representative until the morning . This RN notified Dr Pereyra, who stated she would forward to IR in the am . The abdominal fistula is draining brown liquid fecal discharge. ABD pad covering fistula was changed x3 overnight. This RN also notified Madyson the day shift nurse. Patient on continuous tele monitor. Yesterday at 1999, patient had 8 beat of Vtach. Patient was asymptomatic, denied any chest pain or palpitations. Normal Sinus on the monitor. This RN notified Dr Pereyra, no new orders.
[2021-05-29] MEDS: carvediloL 6.25 MG TABLET PO (08:33)
[2021-05-29] MEDS: Multivitamin TABLET 1 TAB PO (08:33)
[2021-05-29] MEDS: Furosemide 40 MG TABLET PO (08:33)
[2021-05-29] MEDS: gemfibroziL 600 MG TABLET PO (08:33)
[2021-05-29] MEDS: Spironolactone 25 MG TABLET PO (08:33)
[2021-05-29] MEDS: Valsartan 80 MG TABLET PO (08:34)
--- NOTE | 2021-05-29 08:34 | PM.PNGS ---
Subjective Subjective Date of Service: 05/29/21 Interval history: Patient reports the drain fell out with dressing change. Has some mild pain when the dressing is changed. Wound continues to drain. Reports decreased nausea vomiting Physical Exam Vital Signs: Vital Signs: Last Vital Signs Temp 98.6 F 05/29/21 07:29 Pulse 74 05/29/21 07:29 Resp 20 05/29/21 07:29 BP 142/71 H 05/29/21 07:29 Pulse Ox 94 05/29/21 07:29 Body Mass Index 27.7 Const: General: comfortable and no acute distress Nutritional Appearance: well nourished Orientation/consciousness: patient oriented x3 Limitations: no limitations Resp: Effort & Inspection: normal respiratory effort GI: Other: Abdominal wall drainage from right lower quadrant and right flank. Surrounding erythema noted. Tender to palpation without rebound or guarding. 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 Patient previously underwent an ileal cecal resection. The possibility of enterocutaneous fistula is raised although there is no definite collection noted within the abdomen on CT. Patient underwent drain placement yesterday with a Judith drain however this fell out this morning with dressing changes. I recommended a abdominal wall washout as well as an exploratory laparotomy to evaluate for possible enterocutaneous fistula. If this is the case a bowel resection may be necessary. After discussion of the procedure, risks, and alternatives, he consents to the exploratory laparotomy with possible bowel resection and abdominal wall washout. He will be added onto the OR schedule for today. Hypokalemia being repleted per Dr. Grande. Continue IV antibiotics. Fall Risk Details Current Medications: Current Medications Generic Name Dose Route Start Last Admin Trade Name Freq PRN Reason Stop Dose Admin Carvedilol 6.25 mg 05/26/21 21:00 05/28/21 20:26 Carvedilol 6.25 Mg Tablet PO 6.25 mg BID KANCHAN Administration Protocol Furosemide 40 mg 05/26/21 21:00 05/28/21 20:26 Furosemide 40 Mg Tablet PO 40 mg BID KANCHAN Administration Protocol Gemfibrozil 600 mg 05/26/21 21:00 05/28/21 20:26 Gemfibrozil 600 Mg Tablet PO 600 mg BID KANCHAN Administration Piperacillin Sod/Tazobactam 50 mls @ 100 mls/hr 05/26/21 18:00 05/29/21 06:36 Sod 3.375 gm/ Sodium Chloride IV Infused Q6H KANCHAN Infusion Insulin Human Lispro 0 unit 05/27/21 11:30 05/28/21 20:27 Insulin Lispro 100 Unit/Ml 3 Ml Vial SUBCUT Not Given QIDACHS KANCHAN Protocol Morphine Sulfate 2 mg 05/26/21 21:14 05/28/21 03:57 Morphine Sulfate 2 Mg/Ml Cartridge IVPUSH 2 mg Q3H PRN Administration Pain, Severe (Pain Scale 7-10) Multivitamins/Vitamin C 1 tab 05/27/21 09:00 05/28/21 07:44 Multivitamin Tablet PO 1 tab DAILY KANCHAN Administration Ondansetron HCl 4 mg 05/27/21 11:16 05/28/21 10:33 Ondansetron Hcl 4 Mg/2 Ml Vial IVPUSH 4 mg Q8H PRN Administration Nausea and Vomiting Pharmacy Consult 1 each 05/26/21 12:20 Consult Rx Perform Med Rec MISCELLANE ONCE PRN Consult order Potassium Chloride 40 meq 05/29/21 07:30 Potassium Chloride Packet 20 Meq Packet PO Q8H [facility] Sodium Chloride 3 ml 05/27/21 00:00 05/28/21 20:28 0.9 % Sodium Chloride Flush 3 Ml Syringe IVFLUSH 3 ml QSHIFT KANCHAN Administration Spironolactone 25 mg 05/27/21 09:00 05/28/21 07:43 Spironolactone 25 Mg Tablet PO 25 mg DAILY KANCHAN Administration Protocol Trazodone HCl 50 mg 05/26/21 21:00 05/28/21 20:26 Trazodone Hcl 50 Mg Tablet PO 50 mg BEDTIME KANCHAN Administration Valsartan 80 mg 05/27/21 09:00 05/28/21 07:42 Valsartan 80 Mg Tablet PO 80 mg DAILY KANCHAN Administration Protocol Zolpidem Tartrate 5 mg 05/26/21 21:00 05/28/21 20:26 Zolpidem Tartrate 5 Mg Tablet PO 5 mg BEDTIME KANCHAN Administration Time Spent With Patient Time: Total time spent is greater than 50% in coordination of care (as documented) at patient's floor/unit and/or counseling patient: Time with patient: 15 - 24 minutes Procedures Date of Service Date of Service: 05/29/21 Quality Stroke Does the patient have a stroke diagnosis?: No VTE Prior VTE?: No VTE Risk Level:: Medical - moderate - high VTE Device Contraindication: N/A - Device Ordered VTE Drug Contraindication: N/A - Med Ordered
[2021-05-29] MEDS: 0.9 % Sodium Chloride Flush 3 ML SYRINGE IVFLUSH (08:35)
[2021-05-29 08:45] LABS: Glucose, Whole Blood 131 mg/dL (60-115)
[2021-05-29] MEDS: Potassium Chloride/H20 10 MEQ/100 ML PIGGYBACK 100 MEQ IV ×2 (08:51→10:06)
--- NOTE | 2021-05-29 09:12 | HO.PM.IMPN ---
Subjective Subjective Date of Service: 05/29/21 Interval History: Seen in f/u for recurrent abdominal wall abscess, SHY drain put in day earlier fell out. Potassium remains low but better Review of Systems Gen: no fever Resp: no sob, no cough CV: no chest, no AIKEN, no leg edema GI: No n/v, no abd pain Neuro: No confusion Physical Exam Vital Signs: Vital Signs: Last Vital Signs Temp 98.6 F 05/29/21 07:29 Pulse 74 05/29/21 08:34 Resp 20 05/29/21 07:29 BP 142/71 H 05/29/21 08:34 Pulse Ox 94 05/29/21 07:29 Body Mass Index 27.7 Const: Other: Constitutional Awake and Alert, No apparent distress Neck Supple, No lymphadenopathy Cardiovascular RRR, No M/R/G, S1 S2, No S3 S4, No pedal edema Respiratory Lungs clear, No respiratory distress Gastrointestinal Non tender, Non-distended, large induration, right flank area with draining sinus, also open wound with drainage on the right lower quadrant along old incision--unchanged Skin No rash Neurological Alert & oriented x3 Psychological Appropriate affect Objective Data Current Medications Generic Name Dose Route Start Last Admin Trade Name Freq PRN Reason Stop Dose Admin Carvedilol 6.25 mg 05/26/21 21:00 05/29/21 08:33 Carvedilol 6.25 Mg Tablet PO 6.25 mg BID KANCHAN Administration Protocol Furosemide 40 mg 05/26/21 21:00 05/29/21 08:33 Furosemide 40 Mg Tablet PO 40 mg BID KANCHAN Administration Protocol Gemfibrozil 600 mg 05/26/21 21:00 05/29/21 08:33 Gemfibrozil 600 Mg Tablet PO 600 mg BID KANCHAN Administration Piperacillin Sod/Tazobactam 50 mls @ 100 mls/hr 05/26/21 18:00 05/29/21 06:36 Sod 3.375 gm/ Sodium Chloride IV Infused Q6H KANCHAN Infusion Potassium Chloride 10 meq in 100 mls @ 100 mls/hr 05/29/21 09:00 05/29/21 08:51 IV 05/29/21 10:59 100 mls/hr Q1H KANCHAN Administration Insulin Human Lispro 0 unit 05/27/21 11:30 05/29/21 08:48 Insulin Lispro 100 Unit/Ml 3 Ml Vial SUBCUT Not Given QIDACHS KANCHAN Protocol Morphine Sulfate 2 mg 05/26/21 21:14 05/28/21 03:57 Morphine Sulfate 2 Mg/Ml Cartridge IVPUSH 2 mg Q3H PRN Administration Pain, Severe (Pain Scale 7-10) Multivitamins/Vitamin C 1 tab 05/27/21 09:00 05/29/21 08:33 Multivitamin Tablet PO 1 tab DAILY KANCHAN Administration Ondansetron HCl 4 mg 05/27/21 11:16 05/28/21 10:33 Ondansetron Hcl 4 Mg/2 Ml Vial IVPUSH 4 mg Q8H PRN Administration Nausea and Vomiting Pharmacy Consult 1 each 05/26/21 12:20 Consult Rx Perform Med Rec MISCELLANE ONCE PRN Consult order Potassium Chloride 40 meq 05/29/21 07:30 05/29/21 08:34 Potassium Chloride Packet 20 Meq Packet PO Not Given Q8H COUNT INCLUDES [facility] Sodium Chloride 3 ml 05/27/21 00:00 05/29/21 08:35 0.9 % Sodium Chloride Flush 3 Ml Syringe IVFLUSH 3 ml QSHIFT KANCHAN Administration Spironolactone 25 mg 05/27/21 09:00 05/29/21 08:33 Spironolactone 25 Mg Tablet PO 25 mg DAILY KANCHAN Administration Protocol Trazodone HCl 50 mg 05/26/21 21:00 05/28/21 20:26 Trazodone Hcl 50 Mg Tablet PO 50 mg BEDTIME KANCHAN Administration Valsartan 80 mg 05/27/21 09:00 05/29/21 08:34 Valsartan 80 Mg Tablet PO 80 mg DAILY KANCHAN Administration Protocol Zolpidem Tartrate 5 mg 05/26/21 21:00 05/28/21 20:26 Zolpidem Tartrate 5 Mg Tablet PO 5 mg BEDTIME KANCHAN Administration Labs CBC & Chem 7: 05/27/21 04:57 05/29/21 05:34 Labs: Laboratory Results - last 24 hr 05/28/21 05/28/21 05/28/21 11:37 15:57 20:22 Sodium Potassium Chloride Carbon Dioxide Anion Gap BUN Creatinine Estim Creat Clear Calc Estimated GFR POC Glucose 95 123 H 123 H Random Glucose Calcium C. difficile Tox B Gene 05/28/21 05/29/21 05/29/21 Unknown 05:34 08:42 Sodium 141 Potassium 2.8 L Chloride 101 Carbon Dioxide 31 H Anion Gap 12 BUN 10 Creatinine 0.68 Estim Creat Clear Calc 134.6 Estimated GFR > 60 POC Glucose 131 H Random Glucose 124 H Calcium 7.8 L C. difficile Tox B Gene NEGATIVE Microbiology Microbiology Results: Microbiology 05/27/21 09:32 Gram Stain - Final Abscess Intra-abdominal Routine Culture - Final Anaerobic Culture - Preliminary No growth to date. 05/26/21 13:12 Blood Culture - Preliminary Blood - Venous No growth after 24 hours. 05/26/21 13:30 Blood Culture - Final Blood - Venous Coag negative Staphylococcus Quality Stroke Does the patient have a stroke diagnosis?: No VTE Prior VTE?: No VTE Risk Level:: Medical - moderate - high VTE Device Contraindication: N/A - Device Ordered VTE Drug Contraindication: N/A - Med Ordered Assessment and Plan (1) Diabetes mellitus: Status: Acute (2) Abdominal wall abscess: Status: Acute Assessment and Plan: 61 year old male with DM, AFIB, CAD, CAD, CM with combined systolic and diastolic Heart failure here with with recurrent abdominal wall abscess Abdominal wall abscess--surgery is addresing this, IR drain fell out overnight, . Hold Xarelto, agree with empiric Abx, to OR for Ex-lap today HypOkalemia--K remain low, add IV and PO, recheck later, check magnesium as well Chronic combined systolic and diastolic heart failure--presently compensated -continue Lasix, Aldactne, Coreg and Valsarta Diabetes-- not on med, SSI, Paroxysmal atrial fibrillation--rate cntrolled, continue Coreg, Amiodarone, Xarelto on hold until after procedure
[2021-05-29 09:44] LABS: Magnesium 1.5 mg/dL (1.6-2.6)
[2021-05-29 11:13] LABS: Glucose, Whole Blood 123 mg/dL (60-115)
[2021-05-29] MEDS: Potassium Chloride ER 20 MEQ TAB.ER.PRT 40 MEQ PO (11:28)
[2021-05-29] MEDS: Lactated Ringers 1,000 ML 100 ML IVCONT (11:30)
[2021-05-29 11:56] LABS: Anion Gap 12 (12-20); Carbon Dioxide 33 mmol/L (22-29); Chloride 101 mmol/L (96-108); Potassium 4.1 mmol/L (3.3-5.1); Sodium 142 mmol/L (135-145)
--- NOTE | 2021-05-29 12:52 | HO.ANESPROP2 ---
HPI - Anesthesia Eval Consult details Narrative: 61 M hypokalemia s/p correction, afib, ectopy, CHF p/f abdominal wall abscess I&D [facility] Active Problems Active Problems: All Active Problems (Updated 05/27/21 @ 09:28 by Garrett Grande MD) Diabetes mellitus (Acute) Abdominal wall abscess (Acute) CRP elevated (Acute) Abnormal nuclear stress test (Acute) Preop cardiovascular exam (Acute) Cardiomyopathy (Acute) CHF (congestive heart failure) (Acute) Leg swelling (Acute) Shortness of breath (Acute) Abdominal pain (Acute) Abdominal fluid collection (Acute) Past Medical History Medical History Abdominal wall abscess Acute appendicitis CHF (congestive heart failure) CHF (congestive heart failure) CVA (cerebral vascular accident) Diabetes Diabetes mellitus Heart disease Heart failure with reduced ejection fraction History of left below knee amputation HTN (hypertension) Ischemic cardiomyopathy Paroxysmal atrial fibrillation Family History Family History Father Stroke Aortic valve replaced Mother No problems noted. Surgical History Surgical History H/O exploratory laparotomy H/O right hemicolectomy History of transmetatarsal amputation of right foot Hx of cholecystectomy Social History Social History Household Members: Family Household Members Other:: Home w/ mother whom he cares for Housing: House Do you presently have visiting nurse or other home services: Yes (At home wound care nurse) Alcohol intake: former Patient Tobacco Use Status: Former Tobacco user service: No Current occupational status: retired and disabled Meds Allergies Allergy/AdvReac Type Severity Reaction Status Date / Time vancomycin [VANCOMYCIN] Allergy Severe STOMACH Verified 05/26/21 11:08 UPSET, ill Active Medications: Current Medications Generic Name Dose Route Start Last Admin Trade Name Freq PRN Reason Stop Dose Admin Carvedilol 6.25 mg 05/26/21 21:00 05/29/21 08:33 Carvedilol 6.25 Mg Tablet PO 6.25 mg BID KANCHAN Administration Protocol Furosemide 40 mg 05/26/21:00 05/29/21 08:33 Furosemide 40 Mg Tablet PO 40 mg BID KANCHAN Administration Protocol Gemfibrozil 600 mg 05/26/21 21:00 05/29/21 08:33 Gemfibrozil 600 Mg Tablet PO 600 mg BID KANCHAN Administration Piperacillin Sod/Tazobactam 50 mls @ 100 mls/hr 05/26/21 18:00 05/29/21 06:36 Sod 3.375 gm/ Sodium Chloride IV Infused Q6H KANCHAN Infusion Lactated Ringer's 1,000 mls @ 100 mls/hr 05/29/21 09:58 05/29/21 11:30 Lr IVCONT 100 mls/hr .Q10H KANCHAN Administration Insulin Human Lispro 0 unit 05/27/21 11:30 05/29/21 12:33 Insulin Lispro 100 Unit/Ml 3 Ml Vial SUBCUT Not Given QIDACHS [facility] Protocol Morphine Sulfate 2 mg 05/26/21 21:14 05/28/21 03:57 Morphine Sulfate 2 Mg/Ml Cartridge IVPUSH 2 mg Q3H PRN Administration Pain, Severe (Pain Scale 7-10) Multivitamins/Vitamin C 1 tab 05/27/21 09:00 05/29/21 08:33 Multivitamin Tablet PO 1 tab DAILY KANCHAN Administration Ondansetron HCl 4 mg 05/27/21 11:16 05/28/21 10:33 Ondansetron Hcl 4 Mg/2 Ml Vial IVPUSH 4 mg Q8H PRN Administration Nausea and Vomiting Pharmacy Consult 1 each 05/26/21 12:20 Consult Rx Perform Med Rec MISCELLANE ONCE PRN Consult order Potassium Chloride 40 meq 05/29/21 07:30 05/29/21 08:34 Potassium Chloride Packet 20 Meq Packet PO Not Given Q8H KANCHAN Sodium Chloride 3 ml 05/27/21 00:00 05/29/21 08:35 0.9 % Sodium Chloride Flush 3 Ml Syringe IVFLUSH 3 ml QSHIFT KANCHAN Administration Spironolactone 25 mg 05/27/21 09:00 05/29/21 08:33 Spironolactone 25 Mg Tablet PO 25 mg DAILY KANCHAN Administration Protocol Trazodone HCl 50 mg 05/26/21 21:00 05/28/21 20:26 Trazodone Hcl 50 Mg Tablet PO 50 mg BEDTIME KANCHAN Administration Valsartan 80 mg 05/27/21 09:00 05/29/21 08:34 Valsartan 80 Mg Tablet PO 80 mg DAILY KANCHAN Administration Protocol Zolpidem Tartrate 5 mg 05/26/21 21:00 05/28/21 20:26 Zolpidem Tartrate 5 Mg Tablet PO 5 mg BEDTIME KANCHAN Administration Home Medications Medication Instructions Recorded Confirmed Last Taken Type multivitamin 1 tab PO DAILY 04/02/21 05/26/21 05/26/21 History amiodarone 200 mg tablet 200 mg PO DAILY 05/07/21 05/26/21 05/26/21 History furosemide 40 mg tablet 40 mg PO BID tab 05/07/21 05/26/21 05/26/21 History gemfibrozil 600 mg tablet 600 mg PO BID 05/07/21 05/26/21 05/26/21 History spironolactone 25 mg tablet 25 mg PO DAILY tab 05/07/21 05/26/21 05/26/21 History trazodone 50 mg tablet 50 mg PO BEDTIME 05/07/21 05/26/21 05/26/21 History zolpidem 10 mg tablet 10 mg PO BEDTIME 05/07/21 05/26/21 05/25/21 History ondansetron HCl 1 tab PO Q8H PRN 05/26/21 05/26/21 Unknown History valsartan 80 mg PO DAILY 05/26/21 05/26/21 05/26/21 History Exam Exam Date and Time: May 29, 2021 125 Height,Weight and Vital Signs: Height 6 ft 3 in Weight 222 lb Last Vital Signs Temp 97.9 F 05/29/21 12:24 Pulse 79 05/29/21 12:24 Resp 18 05/29/21 12:24 BP 143/83 H 05/29/21 12:24 Pulse Ox 95 05/29/21 12:24 Pertinent Lab Results Pertinent Lab Results: Laboratory Tests 05/26/21 05/26/21 05/26/21 13:12 13:12 13:12 WBC 11.5 H RBC 4.02 L Hgb 11.0 L Hct 34.3 L D MCV 85.3 MCH 27.4 MCHC 32.1 RDW 15.9 Plt Count 228 MPV 10.1 Immature Gran % (Auto) 1.0 H Neut % (Auto) 85.0 H Lymph % (Auto) 8.2 L [place] % (Auto) 4.6 Eos % (Auto) 1.0 Baso % (Auto) 0.2 Lymph # (Auto) 1.0 L [place] # (Auto) 0.5 Eos # (Auto) 0.1 Baso # (Auto) 0.0 Abs Immat Gran (auto) 0.11 H Absolute Neuts (auto) 9.8 H Absolute Nucleated RBC 0.000 Nucleated RBC % (auto) 0.0 PT 26.1 H INR 2.3 H APTT 43.0 H Sodium 140 Potassium 3.1 L Chloride 103 Carbon Dioxide 22 Anion Gap 18 BUN 26 H D Creatinine 0.99 Estim Creat Clear Calc 92.4 Estimated GFR > 60 POC Glucose Random Glucose 96 Lactic Acid Calcium 7.5 L Magnesium 1.6 Total Bilirubin 0.4 Direct Bilirubin < 0.2 AST 25 D ALT < 6 Alkaline Phosphatase 108 C-Reactive Protein 23.60 H B-Natriuretic Peptide Total Protein 5.8 L Albumin 2.3 L D Urine Color Urine Appearance Urine pH Ur Specific [place] Urine Protein Urine Glucose (UA) Urine Ketones Urine Blood Urine Nitrite Ur Leukocyte Esterase C. difficile Tox B Gene COVID-19 (CAROLINE) COVID-[facility] Blood Type Antibody Screen 05/26/21 05/26/21 05/26/21 13:12 13:12 13:12 WBC RBC Hgb Hct MCV MCH MCHC RDW Plt Count MPV Immature Gran % (Auto) Neut % (Auto) Lymph % (Auto) [place] % (Auto) Eos % (Auto) Baso % (Auto) Lymph # (Auto) [place] # (Auto) Eos # (Auto) Baso # (Auto) Abs Immat Gran (auto) Absolute Neuts (auto) Absolute Nucleated RBC Nucleated RBC % (auto) PT INR APTT Sodium Potassium Chloride Carbon Dioxide Anion Gap BUN Creatinine Estim Creat Clear Calc Estimated GFR POC Glucose Random Glucose Lactic Acid 1.1 Calcium Magnesium Total Bilirubin Direct Bilirubin AST ALT Alkaline Phosphatase C-Reactive Protein B-Natriuretic Peptide 1330 H Total Protein Albumin Urine Color Urine Appearance Urine pH Ur Specific [place] Urine Protein Urine Glucose (UA) Urine Ketones Urine Blood Urine Nitrite Ur Leukocyte Esterase C. difficile Tox B Gene COVID-19 (CAROLINE) Negative [employer] See Note Blood Type Antibody Screen 05/26/21 05/27/21 05/27/21 16:40 04:57 04:57 WBC 10.4 RBC 4.09 L Hgb 11.2 L Hct 35.3 L MCV 86.3 MCH 27.4 MCHC 31.7 RDW 15.9 Plt Count 235 MPV 10.3 Immature Gran % (Auto) 1.2 H Neut % (Auto) 86.6 H Lymph % (Auto) 6.9 L [place] % (Auto) 4.1 Eos % (Auto) 1.0 Baso % (Auto) 0.2 Lymph # (Auto) 0.7 L [place] # (Auto) 0.4 Eos # (Auto) 0.1 Baso # (Auto) 0.0 Abs Immat Gran (auto) 0.13 H Absolute Neuts (auto) 9.0 H Absolute Nucleated RBC 0.000 Nucleated RBC % (auto) 0.0 PT INR APTT Sodium 142 Potassium 2.3 L* D Chloride 103 Carbon Dioxide 28 Anion Gap 13 BUN 21 H Creatinine 0.78 Estim Creat Clear Calc 117.3 Estimated GFR > 60 POC Glucose Random Glucose 119 H Lactic Acid Calcium 7.5 L Magnesium Total Bilirubin Direct Bilirubin AST ALT Alkaline Phosphatase C-Reactive Protein B-Natriuretic Peptide Total Protein Albumin Urine Color YELLOW Urine Appearance CLEAR Urine pH 6.0 Ur Specific [place] <= 1.005 Urine Protein TRACE Urine Glucose (UA) NEG Urine Ketones NEG Urine Blood NEG Urine Nitrite NEG Ur Leukocyte Esterase NEG C. difficile Tox B Gene COVID-19 (CAROLINE) COVID-19 Clin Com Blood Type Antibody Screen 05/27/21 05/27/21 05/27/21 11:26 16:39 17:26 WBC RBC Hgb Hct MCV MCH MCHC RDW Plt Count MPV Immature Gran % (Auto) Neut % (Auto) Lymph % (Auto) [place] % (Auto) Eos % (Auto) Baso % (Auto) Lymph # (Auto) [place] # (Auto) Eos # (Auto) Baso # (Auto) Abs Immat Gran (auto) Absolute Neuts (auto) Absolute Nucleated RBC Nucleated RBC % (auto) PT INR APTT Sodium 143 Potassium 2.5 L* Chloride 103 Carbon Dioxide 29 Anion Gap 14 BUN 16 Creatinine 0.72 Estim Creat Clear Calc 127.1 Estimated GFR > 60 POC Glucose 108 106 Random Glucose 101 Lactic Acid Calcium 7.8 L Magnesium Total Bilirubin Direct Bilirubin AST ALT Alkaline Phosphatase C-Reactive Protein B-Natriuretic Peptide Total Protein Albumin Urine Color Urine Appearance Urine pH Ur Specific [place] Urine Protein Urine Glucose (UA) Urine Ketones Urine Blood Urine Nitrite Ur Leukocyte Esterase C. difficile Tox B Gene COVID-19 (CAROLINE) COVID-19 [facility] Blood Type Antibody Screen 05/27/21 05/28/21 05/28/21 20:16 07:24 08:07 WBC RBC Hgb Hct MCV MCH MCHC RDW Plt Count MPV Immature Gran % (Auto) Neut % (Auto) Lymph % (Auto) [place] % (Auto) Eos % (Auto) Baso % (Auto) Lymph # (Auto) [place] # (Auto) Eos # (Auto) Baso # (Auto) Abs Immat Gran (auto) Absolute Neuts (auto) Absolute Nucleated RBC Nucleated RBC % (auto) PT INR APTT Sodium 143 Potassium 2.6 L Chloride 102 Carbon Dioxide 30 H Anion Gap 14 BUN 13 Creatinine 0.71 Estim Creat Clear Calc 128.9 Estimated GFR > 60 POC Glucose 107 93 Random Glucose 99 Lactic Acid Calcium 7.7 L Magnesium Total Bilirubin Direct Bilirubin AST ALT Alkaline Phosphatase C-Reactive Protein B-Natriuretic Peptide Total Protein Albumin Urine Color Urine Appearance Urine pH Ur Specific [place] Urine Protein Urine Glucose (UA) Urine Ketones Urine Blood Urine Nitrite Ur Leukocyte Esterase C. difficile Tox B Gene COVID-19 (CAROLINE) COVID-19 [facility] Blood Type Antibody Screen 05/28/21 05/28/21 05/28/21 11:37 15:57 20:22 WBC RBC Hgb Hct MCV MCH MCHC RDW Plt Count MPV Immature Gran % (Auto) Neut % (Auto) Lymph % (Auto) [place] % (Auto) Eos % (Auto) Baso % (Auto) Lymph # (Auto) [place] # (Auto) Eos # (Auto) Baso # (Auto) Abs Immat Gran (auto) Absolute Neuts (auto) Absolute Nucleated RBC Nucleated RBC % (auto) PT INR APTT Sodium Potassium Chloride Carbon Dioxide Anion Gap BUN Creatinine Estim Creat Clear Calc Estimated GFR POC Glucose 95 123 H 123 H Random Glucose Lactic Acid Calcium Magnesium Total Bilirubin Direct Bilirubin AST ALT Alkaline Phosphatase C-Reactive Protein B-Natriuretic Peptide Total Protein Albumin Urine Color Urine Appearance Urine pH Ur Specific [place] Urine Protein Urine Glucose (UA) Urine Ketones Urine Blood Urine Nitrite Ur Leukocyte Esterase C. difficile Tox B Gene COVID-19 (CAROLINE) COVID-19 [employer] Blood Type Antibody Screen 05/28/21 05/29/21 05/29/21 Unknown 05:34 08:42 WBC RBC Hgb Hct MCV MCH MCHC RDW Plt Count MPV Immature Gran % (Auto) Neut % (Auto) Lymph % (Auto) [place] % (Auto) Eos % (Auto) Baso % (Auto) Lymph # (Auto) [place] # (Auto) Eos # (Auto) Baso # (Auto) Abs Immat Gran (auto) Absolute Neuts (auto) Absolute Nucleated RBC Nucleated RBC % (auto) PT INR APTT Sodium 141 Potassium 2.8 L Chloride 101 Carbon Dioxide 31 H Anion Gap 12 BUN 10 Creatinine 0.68 Estim Creat Clear Calc 134.6 Estimated GFR > 60 POC Glucose 131 H Random Glucose 124 H Lactic Acid Calcium 7.8 L Magnesium 1.5 L Total Bilirubin Direct Bilirubin AST ALT Alkaline Phosphatase C-Reactive Protein B-Natriuretic Peptide Total Protein Albumin Urine Color Urine Appearance Urine pH Ur Specific [place] Urine Protein Urine Glucose (UA) Urine Ketones Urine Blood Urine Nitrite Ur Leukocyte Esterase C. difficile Tox B Gene NEGATIVE COVID-19 (CAROLINE) [employer] Blood Type Antibody Screen 05/29/21 05/29/21 05/29/21 09:22 10:53 11:19 WBC RBC Hgb Hct MCV MCH MCHC RDW Plt Count MPV Immature Gran % (Auto) Neut % (Auto) Lymph % (Auto) [place] % (Auto) Eos % (Auto) Baso % (Auto) Lymph # (Auto) [place] # (Auto) Eos # (Auto) Baso # (Auto) Abs Immat Gran (auto) Absolute Neuts (auto) Absolute Nucleated RBC Nucleated RBC % (auto) PT INR APTT Sodium 142 Potassium 4.1 D Chloride 101 Carbon Dioxide 33 H Anion Gap 12 BUN Creatinine Estim Creat Clear Calc Estimated GFR POC Glucose 123 H Random Glucose Lactic Acid Calcium Magnesium Total Bilirubin Direct Bilirubin AST ALT Alkaline Phosphatase C-Reactive Protein B-Natriuretic Peptide Total Protein Albumin Urine Color Urine Appearance Urine pH Ur Specific [place] Urine Protein Urine Glucose (UA) Urine Ketones Urine Blood Urine Nitrite Ur Leukocyte Esterase C. difficile Tox B Gene COVID-19 (CAROLINE) COVID-[facility] Blood Type O Negative Antibody Screen NEGATIVE Assessment and Plan Assessment Anesthesia Assessment: Anesthesia Plan Discussed and Chart Reviewed Final Anesthetic Review NPO: Yes ASA Class: IV Final Preanesthetic Review: No Changes in Pt Med Stat, Meds/Allgs Chart Reviewed, Consent Obtained/Reviewed and Anes Risks/Benef Reviewed Patient Risk: High Procedure Risk: Low Anesthetic Plan Anesthetic Plan: GA Disposition: Standard PACU
--- NOTE | 2021-05-29 15:09 | P.OP_ITS ---
Operative Note Operative Note Date of Service: 05/29/21 Narrative: Preoperative diagnosis: Abdominal wall abscess, possible enterocutaneous fistula Postoperative diagnosis: Abdominal wall abscess, retroperitoneal abscess, no enterocutaneous fistula Procedure: Exploratory laparotomy, washout of abdominal wall abscess excision of retroperitoneal/cutaneous abscess tract, drainage of retroperitoneal abscess cavity Surgeon: Navdeep Lombardo MD Executive Team Leader: No physician Anesthesia: General endotracheal Indications for procedure: 61-year-old male with a previous history of perforated appendicitis with abscess with a complicated postoperative course due to sepsis. He subsequently required right hemicolectomy due to persistent drainage performed in 2019. He now has had persistent abscess collections in the abdominal wall requiring IR drainage and incision and drainage. A recent CT revealed a collection extending into the retroperitoneum. He presents today for exploratory laparotomy to evaluate for a possible enterocutaneous fistula. Operative findings: Large abscess cavity was noted within the subcutaneous tissue and muscle layers of the right flank however no communication intra- abdominal could be identified. The cavity was heavily granulated. A fistulous tract identified in the right lower quadrant extended into a retroperitoneal location and never communicated with the subcutaneous collection or the bowel. No enterocutaneous fistula was identified. Specimen: Cutaneous fistulous tracts from both the right flank and right lower quadrant Estimated blood loss: 100 mL Complications: None Procedure details: Patient was brought to the OR placed in a supine position. After administering general anesthesia the patient's abdomen was prepped with Betadine and draped in a sterile fashion. A surgical time-out was called the consent confirmed. Patient received preoperative antibiotics and Venodyne boots were in place. Local anesthesia consisting of 0.25% Sensorcaine with epinephrine was then infiltrated in both the right lower quadrant and right flank subcutaneous tissue. Beginning in the right lower quadrant an elliptical incision was created in a transverse fashion to incorporate the fistulous tract. This was carried down through subcutaneous tissue past muscle fascia using electrocautery. The trach extended briefly into the abdominal cavity but above the omentum. This was followed down into the retroperitoneum and extended anot her 20 cm retroperitoneally were a abscess cavity was identified. This was thoroughly irrigated and evacuated. Attention was then directed to the right flank where again elliptical incision was created oriented in oblique fashion to include the fistulous tract. This was continued down past subcutaneous tissue and into a large abscess cavity within the subcutaneous tissue and between the oblique muscle layers. The abscess cavity was heavily granulated. This cavity was explored thoroughly and no communication intra-abdominal and could be identified. The wounds were thoroughly irrigated with a L of saline solution and no fecal material was identified. Attention was then directed back to the right lower quadrant fistulous track where a Bryant-Rosario drain was inserted into the abscess cavity and brought out through a separate stab incision in the right lower quadrant. This was then connected to bulb suctioning. Fascia was then closed in the right lower quadrant incision using a running 0 Polysorb suture. Subcutaneous tissue was irrigated thoroughly with saline solution. Skin was loosely approximated using skin misa. Iodoform packing was placed between misa. The right flank incision was closed using interrupted 3-0 nylon sutures in a mattress formation loosely applied. The abscess cavity was then packed with 1 in iodoform packing. Sterile dressings were then applied to all incisions. The patient tolerated the procedure well. Sponge, instrument, needle counts reported as correct. Patient was transferred to PACU in stable condition.
[2021-05-29] MEDS: HYDROmorphone HCl 2 MG TABLET PO (15:31)
[2021-05-29 17:49] LABS: Glucose, Whole Blood 176 mg/dL (60-115)
[2021-05-29] MEDS: ondansetron HCL 4 MG/2 ML VIAL IVPUSH (19:55)
[2021-05-29 21:40] LABS: Glucose, Whole Blood 184 mg/dL (60-115)
[2021-05-30] VITALS (9 sets, daily range): BP systolic 120–151; BP diastolic 56–83; PULSE 76–105; RESP 18–20; TEMP 36.3–36.6; O2SAT 92–97
[2021-05-30] MEDS: Prochlorperazine Edisylate 10 MG/2 ML VIAL 5 MG IVPUSH (00:24)
[2021-05-30] MEDS: Piperacillin Sodium/Tazobactam 3.375 GM in 0.9 % Sodium Chloride 50 ML IV ×4 (00:25→17:56)
[2021-05-30] MEDS: Lactated Ringers 1,000 ML 100 ML IVCONT ×3 (00:25→20:38)
[2021-05-30] MEDS: HYDROmorphone HCl 0.5 MG/0.5 ML SYRINGE IVPUSH ×5 (03:26→22:32)
--- NOTE | 2021-05-30 05:03 | PC.NURSE ---
Removed boothe catheter at 0500 with no issues. Patient is due to void today at 1100
[2021-05-30] MEDS: ondansetron HCL 4 MG/2 ML VIAL IVPUSH (05:33)
[2021-05-30 07:13] LABS: Anion Gap 17 (12-20); Blood Urea Nitrogen 10 mg/dL (9-16); Carbon Dioxide 29 mmol/L (22-29); Chloride 100 mmol/L (96-108); Creatinine Clr Calc Pharmacy 132.6; Estimated Glomerular Filt Rate > 60; Glucose Random 92 mg/dL (60-115); Potassium 3.4 mmol/L (3.3-5.1); Sodium 143 mmol/L (135-145)
[2021-05-30 07:42] LABS: Glucose, Whole Blood 96 mg/dL (60-115)
--- NOTE | 2021-05-30 08:11 | PM.PNGS ---
Subjective Subjective Date of Service: 05/30/21 Interval history: POD #1 s/p Exploratory laparotomy, abdominal wall washout, drainage of retroperitoneal abscess. He reports adequate pain control. Denies any problems overnight Physical Exam Vital Signs: Vital Signs: Last Vital Signs Temp 97.7 F 05/30/21 07:35 Pulse 104 H 05/30/21 07:35 Resp 18 05/30/21 07:35 BP 141/83 H 05/30/21 07:35 Pulse Ox 95 05/30/21 07:35 Body Mass Index 27.7 Const: General: cooperative and no acute distress Orientation/consciousness: patient oriented x3 Limitations: no limitations Resp: Effort & Inspection: normal respiratory effort GI: Other: Abdominal dressings changed this morning. Mainly serosanguineous discharge from flank and right lower quadrant wound. Bryant-Rosario draining serosanguineous fluid as well. No purulence or fecal in discharge noted at this time. No surrounding erythema. Skin: Other: Warm, dry, no rash Neuro: General: patient oriented x3 Extrem: Other: Left BKA, right trans met amputation. No edema. Progress Note: A&P Assessment and plan (1) Abdominal wall abscess: Status: Acute Assessment and Plan: Status post exploratory laparotomy, washout of abdominal wall abscess right flank, drainage of retroperitoneal abscess right side. Patient is hemodynamically stable. Dressings changed and janette advanced. Mainly serosanguineous discharge noted on dressing. No fecal material appreciated. Will continue to monitor. Juan catheter removed this morning. Will advance to a regular diet. Patient currently off his Xarelto, could probably be restarted tomorrow if no evidence of ongoing bleeding. Physical therapy consultation requested to help prevent deconditioning. Fall Risk Details Current Medications: Current Medications Generic Name Dose Route Start Last Admin Trade Name Freq PRN Reason Stop Dose Admin Carvedilol 6.25 mg 05/26/21 21:00 05/29/21 23:57 Carvedilol 6.25 Mg Tablet PO Not Given BID [facility] Protocol Furosemide 40 mg 05/26/21 21:00 05/29/21 23:58 Furosemide 40 Mg Tablet PO Not Given BID [facility] Protocol Gemfibrozil 600 mg 05/26/21 21:00 05/29/21 23:58 Gemfibrozil 600 Mg Tablet PO Not Given BID [facility] Hydromorphone HCl 0.5 mg 05/29/21 15:08 05/30/21 03:26 Hydromorphone Hcl 0.5 Mg/0.5 Ml Syringe IVPUSH 0.5 mg Q4H PRN Administration Pain, Severe (Pain Scale 7-10) Hydromorphone HCl 2 mg 05/29/21 15:08 05/29/21 15:31 Hydromorphone Hcl 2 Mg Tablet PO 2 mg Q4H PRN Administration Pain, Moderate (Pain Scale 4-6 Piperacillin Sod/Tazobactam 50 mls @ 100 mls/hr 05/26/21 18:00 05/30/21 05:37 Sod 3.375 gm/ Sodium Chloride IV Infused Q6H [facility] Infusion Lactated Ringer's 1,000 mls @ 100 mls/hr 05/29/21 09:58 05/30/21 07:32 Lr IVCONT Not Given .Q10H [facility] Insulin Human Lispro 0 unit 05/27/21 11:30 05/30/21 07:45 Insulin Lispro 100 Unit/Ml 3 Ml Vial SUBCUT Not Given QIDACHS [facility] Protocol Multivitamins/Vitamin C 1 tab 05/27/21 09:00 05/29/21 08:33 Multivitamin Tablet PO 1 tab DAILY [facility] Administration Ondansetron HCl 4 mg 05/27/21 11:16 05/30/21 05:33 Ondansetron Hcl 4 Mg/2 Ml Vial IVPUSH 4 mg Q8H PRN Administration Nausea and Vomiting Pharmacy Consult 1 each 05/26/21 12:20 Consult Rx Perform Med Rec MISCELLANE ONCE PRN Consult order Potassium Chloride 40 meq 05/29/21 07:30 05/30/21 07:45 Potassium Chloride Packet 20 Meq Packet PO Not Given Q8H [facility] Sodium Chloride 3 ml 05/27/21 00:00 05/30/21 00:36 0.9 % Sodium Chloride Flush 3 Ml Syringe IVFLUSH Not Given QSHIFT [facility] Spironolactone 25 mg 05/27/21 09:00 05/29/21 08:33 Spironolactone 25 Mg Tablet PO 25 mg DAILY [facility] Administration Protocol Trazodone HCl 50 mg 05/26/21 21:00 05/29/21 23:59 Trazodone Hcl 50 Mg Tablet PO Not Given BEDTIME [facility] Valsartan 80 mg 05/27/21 09:00 05/29/21 08:34 Valsartan 80 Mg Tablet PO 80 mg DAILY [facility] Administration Protocol Zolpidem Tartrate 5 mg 05/26/21 21:00 05/29/21 23:59 Zolpidem Tartrate 5 Mg Tablet PO Not Given BEDTIME [facility] Time Spent With Patient Time: Total time spent is greater than 50% in coordination of care (as documented) at patient's floor/unit and/or counseling patient: Time with patient: 15 - 24 minutes Procedures Date of Service Date of Service: 05/30/21 Quality Stroke Does the patient have a stroke diagnosis?: No VTE Prior VTE?: No VTE Risk Level:: Medical - moderate - high VTE Device Contraindication: N/A - Device Ordered VTE Drug Contraindication: N/A - Med Ordered
--- NOTE | 2021-05-30 08:46 | P.PNIM_ITS ---
Subjective Subjective Date of Service: 05/30/21 Interval History: Seen in f/u for recurrent abdominal wall abscess, POD1 for ex-lap. Doing well, has some soreness at surgery site Review of Systems Gen: no fever Resp: no sob, no cough CV: no chest, no AIKEN, no leg edema GI: No n/v, no abd pain Neuro: No confusion Physical Exam Vital Signs: Vital Signs: Last Vital Signs Temp 97.7 F 05/30/21 07:35 Pulse 104 H 05/30/21 07:35 Resp 18 05/30/21 07:35 BP 141/83 H 05/30/21 07:35 Pulse Ox 95 05/30/21 07:35 Body Mass Index 27.7 Const: Other: Constitutional Awake and Alert, No apparent distress Neck Supple, No lymphadenopathy Cardiovascular RRR, No M/R/G, S1 S2, No S3 S4, No pedal edema Respiratory Lungs clear, No respiratory distress Gastrointestinal Non tender, surgical wound dressing in place, SHY drain with serosanguinous fluid Skin No rash Neurological Alert & oriented x3 Psychological Appropriate affect Objective Data Current Medications Generic Name Dose Route Start Last Admin Trade Name Freq PRN Reason Stop Dose Admin Carvedilol 6.25 mg 05/26/21 21:00 05/29/21 23:57 Carvedilol 6.25 Mg Tablet PO Not Given BID [facility] Protocol Furosemide 40 mg 05/26/21 21:00 05/29/21 23:58 Furosemide 40 Mg Tablet PO Not Given BID [facility] Protocol Gemfibrozil 600 mg 05/26/21 21:00 05/29/21 23:58 Gemfibrozil 600 Mg Tablet PO Not Given BID [facility] Hydromorphone HCl 0.5 mg 05/29/21 15:08 05/30/21 03:26 Hydromorphone Hcl 0.5 Mg/0.5 Ml Syringe IVPUSH 0.5 mg Q4H PRN Administration Pain, Severe (Pain Scale 7-10) Hydromorphone HCl 2 mg 05/29/21 15:08 05/29/21 15:31 Hydromorphone Hcl 2 Mg Tablet PO 2 mg Q4H PRN Administration Pain, Moderate (Pain Scale 4-6 Piperacillin Sod/Tazobactam 50 mls @ 100 mls/hr 05/26/21 18:00 05/30/21 05:37 Sod 3.375 gm/ Sodium Chloride IV Infused Q6H [facility] Infusion Lactated Ringer's 1,000 mls @ 100 mls/hr 05/29/21 09:58 05/30/21 07:32 Lr IVCONT Not Given .Q10H [facility] Insulin Human Lispro 0 unit 05/27/21 11:30 05/30/21 07:45 Insulin Lispro 100 Unit/Ml 3 Ml Vial SUBCUT Not Given QIDACHS [facility] Protocol Multivitamins/Vitamin C 1 tab 05/27/21 09:00 05/29/21 08:33 Multivitamin Tablet PO 1 tab DAILY [facility] Administration Ondansetron HCl 4 mg 05/27/21 11:16 05/30/21 05:33 Ondansetron Hcl 4 Mg/2 Ml Vial IVPUSH 4 mg Q8H PRN Administration Nausea and Vomiting Pharmacy Consult 1 each 05/26/21 12:20 Consult Rx Perform Med Rec MISCELLANE ONCE PRN Consult order Potassium Chloride 40 meq 05/29/21 07:30 05/30/21 07:45 Potassium Chloride Packet 20 Meq Packet PO Not Given Q8H [facility] Sodium Chloride 3 ml 05/27/21 00:00 05/30/21 00:36 0.9 % Sodium Chloride Flush 3 Ml Syringe IVFLUSH Not Given QSHIFT [facility] Spironolactone 25 mg 05/27/21 09:00 05/29/21 08:33 Spironolactone 25 Mg Tablet PO 25 mg DAILY [facility] Administration Protocol Trazodone HCl 50 mg 05/26/21 21:00 05/29/21 23:59 Trazodone Hcl 50 Mg Tablet PO Not Given BEDTIME [facility] Valsartan 80 mg 05/27/21 09:00 05/29/21 08:34 Valsartan 80 Mg Tablet PO 80 mg DAILY [facility] Administration Protocol Zolpidem Tartrate 5 mg 05/26/21 21:00 05/29/21 23:59 Zolpidem Tartrate 5 Mg Tablet PO Not Given BEDTIME [facility] Labs CBC & Chem 7: 05/27/21 04:57 05/30/21 05:37 Labs: Laboratory Results - last 24 hr 05/29/21 05/29/21 05/29/21 05:34 09:22 10:53 Sodium Potassium Chloride Carbon Dioxide Anion Gap BUN Creatinine Estim Creat Clear Calc Estimated GFR POC Glucose 123 H Random Glucose Calcium Magnesium 1.5 L Blood Type O Negative Antibody Screen NEGATIVE Crossmatch (G) See Detail 05/29/21 05/29/21 05/29/21 11:19 17:46 21:36 Sodium 142 Potassium 4.1 D Chloride 101 Carbon Dioxide 33 H Anion Gap 12 BUN Creatinine Estim Creat Clear Calc Estimated GFR POC Glucose 176 H 184 H Random Glucose Calcium Magnesium Blood Type Antibody Screen Crossmatch ([facility]) 05/30/21 05/30/21 05:37 07:34 Sodium 143 Potassium 3.4 Chloride 100 Carbon Dioxide 29 Anion Gap 17 BUN 10 Creatinine 0.69 Estim Creat Clear Calc 132.6 Estimated GFR > 60 POC Glucose 96 Random Glucose 92 Calcium 8.0 L Magnesium Blood Type Antibody Screen Crossmatch ([facility]) Microbiology Microbiology Results: Microbiology 05/26/21 13:12 Blood Culture - Preliminary Blood - Venous No growth after 48 hours. 05/27/21 09:32 Gram Stain - Final Abscess Intra-abdominal Routine Culture - Final Anaerobic Culture - Preliminary No growth to date. Quality Stroke Does the patient have a stroke diagnosis?: No VTE Prior VTE?: No VTE Risk Level:: Medical - moderate - high VTE Device Contraindication: N/A - Device Ordered VTE Drug Contraindication: N/A - Med Ordered Assessment and Plan (1) Diabetes mellitus: Status: Acute (2) Abdominal wall abscess: Status: Acute Assessment and Plan: 61 year old male with DM, AFIB, CAD, CAD, CM with combined systolic and diastolic Heart failure here with with recurrent abdominal wall abscess Abdominal wall abscess and retroperitoneal abscess, had a IR drain put in 05/28 but fell out next day. He underwent Ex-lap 05/29-- Exploratory laparotomy, washout of abdominal wall abscess excision of retroperitoneal/cutaneous abscess tract, drainage of retroperitoneal abscess cavity by Dr. Singh--culture pending. Continue Zosyn HypOkalemia--finally corrected, should be on maintain K daily Chronic combined systolic and diastolic heart failure--presently compensated -continue Lasix, Aldactne, Coreg and Valsarta. DC IVF Diabetes-- not on med, SSI, Paroxysmal atrial fibrillation--rate cntrolled, continue Coreg, Amiodarone, Xarelto has been hold and should check with surgery when to restart
[2021-05-30] MEDS: Valsartan 80 MG TABLET PO (10:09)
[2021-05-30] MEDS: carvediloL 6.25 MG TABLET PO ×2 (10:09→20:35)
[2021-05-30] MEDS: Multivitamin TABLET 1 TAB PO (10:09)
[2021-05-30] MEDS: gemfibroziL 600 MG TABLET PO ×2 (10:09→20:37)
[2021-05-30] MEDS: Furosemide 40 MG TABLET PO ×2 (10:09→20:36)
[2021-05-30] MEDS: Spironolactone 25 MG TABLET PO (10:09)
[2021-05-30 11:55] LABS: Glucose, Whole Blood 136 mg/dL (60-115)
[2021-05-30 16:07] LABS: Glucose, Whole Blood 135 mg/dL (60-115)
--- NOTE | 2021-05-30 16:12 | HO.POSTANES ---
Post Anesthesia Evaluation Post Anesthesia Evaluation Vital Signs: Vital Signs Temp Pulse Resp BP Pulse Ox 05/30/21 13:42 97.6 F 101 H 20 125/61 92 05/30/21 10:09 104 H 141/83 H 05/30/21 09:25 104 H 141/83 H 95 05/30/21 07:35 97.7 F 104 H 18 141/83 H 95 Anesthesia: General Endotracheal-GETA Mental Status: Awake Pain Control: Satisfactory Nausea/Vomiting: None Hydration: Adequate Anesthesia-Related Issues: No Anes. Related Issues
[2021-05-30 20:31] LABS: Glucose, Whole Blood 164 mg/dL (60-115)
[2021-05-30] MEDS: traZODone HCL 50 MG TABLET PO (20:35)
[2021-05-30] MEDS: Insulin Lispro 100 UNIT/ML 3 ML VIAL SUBCUT (20:38)
[2021-05-30] MEDS: Zolpidem Tartrate 5 MG TABLET PO (22:33)
[2021-05-31] MEDS: Piperacillin Sodium/Tazobactam 3.375 GM in 0.9 % Sodium Chloride 50 ML IV ×4 (01:15→18:14)
[2021-05-31] MEDS: HYDROmorphone HCl 0.5 MG/0.5 ML SYRINGE IVPUSH ×4 (03:39→19:54)
[2021-05-31 04:00] VITALS: BP 120/66; PULSE 94; RESP 16; TEMP 37.1; O2SAT 92
[2021-05-31 04:59] LABS: MANUAL DIFF FLAG NO
[2021-05-31 05:07] LABS: Basophils Percent Auto 0.2 % (0-2); Eosinophils Absolute Auto 0.2 X10*3/uL (0.0-0.4); Eosinophils Percent Auto 1.8 % (0-4); Hematocrit 32.7 % (42-52); Hemoglobin 10.3 g/dl (14.0-18.0); Imm Gran Abs Auto 0.43 X10*3/uL (0.00-0.03); Imm Gran Pct Auto 3.2 % (0.0-0.4); Lymphocytes Absolute Auto 1.2 X10*3/uL (1.2-4.9); Lymphocytes Percent Auto 8.6 % (20-40); Mean Corpuscular HGB Conc 31.5 g/dl (31.0-36.0); Mean Corpuscular Hemoglobin 27.4 pg (27.0-33.0); Mean Platelet Volume 9.8 fL (9.4-12.4); Monocytes Percent Auto 7.7 % (2-11); Neutrophils Absolute Auto 10.6 X10*3/uL (2.0-8.3); Neutrophils Percent Auto 78.5 % (45-73); Platelet Count 253 X10*3/uL (160-400); Red Blood Count 3.76 X10*6/uL (4.60-5.80); Red Cell Distribution Width 15.2 % (11.0-16.0); White Blood Count 13.4 X10*3/uL (4.8-10.8)
[2021-05-31 05:35] LABS: Anion Gap 13 (12-20); Blood Urea Nitrogen 8 mg/dL (9-16); Calcium 7.7 mg/dL (8.4-10.2); Carbon Dioxide 29 mmol/L (22-29); Chloride 101 mmol/L (96-108); Creatinine Clr Calc Pharmacy 140.8; Estimated Glomerular Filt Rate > 60; Glucose Random 103 mg/dL (60-115); Potassium 2.9 mmol/L (3.3-5.1); Sodium 140 mmol/L (135-145)
[2021-05-31] MEDS: Lactated Ringers 1,000 ML 100 ML IVCONT (06:34)
[2021-05-31 07:22] VITALS: BP 142/65; PULSE 82; RESP 18; TEMP 36.5; O2SAT 94
[2021-05-31 07:27] LABS: Glucose, Whole Blood 97 mg/dL (60-115)
[2021-05-31] MEDS: Valsartan 80 MG TABLET PO (08:09)
[2021-05-31] MEDS: Spironolactone 25 MG TABLET PO (08:09)
[2021-05-31] MEDS: Furosemide 40 MG TABLET PO ×2 (08:09→21:00)
[2021-05-31] MEDS: carvediloL 6.25 MG TABLET PO ×2 (08:09→21:00)
[2021-05-31] MEDS: gemfibroziL 600 MG TABLET PO ×2 (08:09→21:00)
[2021-05-31] MEDS: Multivitamin TABLET 1 TAB PO (08:09)
[2021-05-31] MEDS: 0.9 % Sodium Chloride Flush 3 ML SYRINGE IVFLUSH ×2 (08:10→15:26)
--- NOTE | 2021-05-31 09:22 | PM.PNGS ---
Subjective Subjective Date of Service: 05/31/21 Interval history: Complains of nausea and vomiting this morning. Has some mild incisional discomfort. Not very hungry this morning. Physical Exam Vital Signs: Vital Signs: Last Vital Signs Temp 97.7 F 05/31/21 07:22 Pulse 82 05/31/21 07:22 Resp 18 05/31/21 07:22 BP 142/65 H 05/31/21 07:22 Pulse Ox 94 05/31/21 07:22 Body Mass Index 27.7 Const: General: ill appearing Nutritional Appearance: cachectic Orientation/consciousness: patient oriented x3 Resp: Effort & Inspection: normal respiratory effort GI: Other: Serosanguineous discharge from SHY drain, incisions with serous and serosanguineous discharge. No erythema. Skin: Other: Pale, warm, dry Neuro: General: patient oriented x3 Extrem: Other: No edema Progress Note: A&P Assessment and plan (1) Abdominal wall abscess: Status: Acute Assessment and Plan: Status post exploratory laparotomy, drainage of retroperitoneal abscess, drainage of abdominal wall abscess with washout. Patient's major problem today is nausea and vomiting possibly related to antibiotics or medications. WBC is elevated, will continue the IV antibiotics for least another 2 days. Recheck CBC tomorrow morning. Potassium is low again. Will replete intravenously. Fall Risk Details Current Medications: Current Medications Generic Name Dose Route Start Last Admin Trade Name Freq PRN Reason Stop Dose Admin Carvedilol 6.25 mg 05/26/21 21:00 05/31/21 08:09 Carvedilol 6.25 Mg Tablet PO 6.25 mg BID [facility] Administration Protocol Furosemide 40 mg 05/26/21 21:00 05/31/21 08:09 Furosemide 40 Mg Tablet PO 40 mg BID [facility] Administration Protocol Gemfibrozil 600 mg 05/26/21 21:00 05/31/21 08:09 Gemfibrozil 600 Mg Tablet PO 600 mg BID [facility] Administration Hydromorphone HCl 0.5 mg 05/29/21 15:08 05/31/21 03:39 Hydromorphone Hcl 0.5 Mg/0.5 Ml Syringe IVPUSH 0.5 mg Q4H PRN Administration Pain, Severe (Pain Scale 7-10) Hydromorphone HCl 2 mg 05/29/21 15:08 05/29/21 15:31 Hydromorphone Hcl 2 Mg Tablet PO 2 mg Q4H PRN Administration Pain, Moderate (Pain Scale 4-6 Piperacillin Sod/Tazobactam 50 mls @ 100 mls/hr 05/26/21 18:00 05/31/21 07:08 Sod 3.375 gm/ Sodium Chloride IV Infused Q6H [facility] Infusion Lactated Ringer's 1,000 mls @ 100 mls/hr 05/29/21 09:58 05/31/21 06:34 Lr IVCONT 100 mls/hr .Q10H [facility] Administration Insulin Human Lispro 0 unit 05/27/21 11:30 05/31/21 08:10 Insulin Lispro 100 Unit/Ml 3 Ml Vial SUBCUT Not Given QIDACHS [facility] Protocol Multivitamins/Vitamin C 1 tab 05/27/21 09:00 05/31/21 08:09 Multivitamin Tablet PO 1 tab DAILY [facility] Administration Ondansetron HCl 4 mg 05/27/21 11:16 05/30/21 05:33 Ondansetron Hcl 4 Mg/2 Ml Vial IVPUSH 4 mg Q8H PRN Administration Nausea and Vomiting Pharmacy Consult 1 each 05/26/21 12:20 Consult Rx Perform Med Rec MISCELLANE ONCE PRN Consult order Potassium Chloride 40 meq 05/29/21 07:30 05/31/21 08:10 Potassium Chloride Packet 20 Meq Packet PO Not Given Q8H [facility] Sodium Chloride 3 ml 05/27/21 00:00 05/31/21 08:10 0.9 % Sodium Chloride Flush 3 Ml Syringe IVFLUSH 3 ml QSHIFT [facility] Administration Spironolactone 25 mg 05/27/21 09:00 05/31/21 08:09 Spironolactone 25 Mg Tablet PO 25 mg DAILY [facility] Administration Protocol Trazodone HCl 50 mg 05/26/21 21:00 05/30/21 20:35 Trazodone Hcl 50 Mg Tablet PO 50 mg BEDTIME [facility] Administration Valsartan 80 mg 05/27/21 09:00 05/31/21 08:09 Valsartan 80 Mg Tablet PO 80 mg DAILY [facility] Administration Protocol Zolpidem Tartrate 5 mg 05/26/21 21:00 05/30/21 22:33 Zolpidem Tartrate 5 Mg Tablet PO 5 mg BEDTIME [facility] Administration Time Spent With Patient Time: Total time spent is greater than 50% in coordination of care (as documented) at patient's floor/unit and/or counseling patient: Time with patient: 15 - 24 minutes Procedures Date of Service Date of Service: 05/31/21 Quality Stroke Does the patient have a stroke diagnosis?: No VTE Prior VTE?: No VTE Risk Level:: Medical - moderate - high VTE Device Contraindication: N/A - Device Ordered VTE Drug Contraindication: N/A - Med Ordered
--- NOTE | 2021-05-31 09:47 | HO.PM.IMPN ---
Subjective Subjective Date of Service: 05/31/21 Interval History: Seen in f/u for recurrent abdominal wall abscess, POD for ex-lap. Doing well, has some soreness at surgery site, and also has nausea Review of Systems Gen: no fever Resp: no sob, no cough CV: no chest, no AIKEN, no leg edema GI: + n/v, no abd pain Neuro: No confusion Physical Exam Vital Signs: Vital Signs: Last Vital Signs Temp 97.7 F 05/31/21 07:22 Pulse 82 05/31/21 07:22 Resp 18 05/31/21 07:22 BP 142/65 H 05/31/21 07:22 Pulse Ox 94 05/31/21 07:22 Body Mass Index 27.7 Const: Other: Constitutional Awake and Alert, No apparent distress Neck Supple, No lymphadenopathy Cardiovascular RRR, No M/R/G, S1 S2, No S3 S4, No pedal edema Respiratory Lungs clear, No respiratory distress Gastrointestinal Non tender, surgical wound dressing in place, SHY drain with serosanguinous fluid Skin No rash Neurological Alert & oriented x3 Psychological Appropriate affect Objective Data Current Medications Generic Name Dose Route Start Last Admin Trade Name Freq PRN Reason Stop Dose Admin Carvedilol 6.25 mg 05/26/21 21:00 05/31/21 08:09 Carvedilol 6.25 Mg Tablet PO 6.25 mg BID KANCHAN Administration Protocol Furosemide 40 mg 05/26/21 21:00 05/31/21 08:09 Furosemide 40 Mg Tablet PO 40 mg BID KANCHAN Administration Protocol Gemfibrozil 600 mg 05/26/21 21:00 05/31/21 08:09 Gemfibrozil 600 Mg Tablet PO 600 mg BID KANCHAN Administration Hydromorphone HCl 0.5 mg 05/29/21 15:08 05/31/21 03:39 Hydromorphone Hcl 0.5 Mg/0.5 Ml Syringe IVPUSH 0.5 mg Q4H PRN Administration Pain, Severe (Pain Scale 7-10) Hydromorphone HCl 2 mg 05/29/21 15:08 05/29/21 15:31 Hydromorphone Hcl 2 Mg Tablet PO 2 mg Q4H PRN Administration Pain, Moderate (Pain Scale 4-6 Piperacillin Sod/Tazobactam 50 mls @ 100 mls/hr 05/26/21 18:00 05/31/21 07:08 Sod 3.375 gm/ Sodium Chloride IV Infused Q6H [facility] Infusion Lactated Ringer's 1,000 mls @ 100 mls/hr 05/29/21 09:58 05/31/21 06:34 Lr IVCONT 100 mls/hr .Q10H [facility] Administration Potassium Chloride 10 meq in 100 mls @ 100 mls/hr 05/31/21 10:00 IV 05/31/21 13:59 Q1H [facility] Insulin Human Lispro 0 unit 05/27/21 11:30 05/31/21 08:10 Insulin Lispro 100 Unit/Ml 3 Ml Vial SUBCUT Not Given QIDACHS [facility] Protocol Multivitamins/Vitamin C 1 tab 05/27/21 09:00 05/31/21 08:09 Multivitamin Tablet PO 1 tab DAILY [facility] Administration Ondansetron HCl 4 mg 05/27/21 11:16 05/30/21 05:33 Ondansetron Hcl 4 Mg/2 Ml Vial IVPUSH 4 mg Q8H PRN Administration Nausea and Vomiting Pharmacy Consult 1 each 05/26/21 12:20 Consult Rx Perform Med Rec MISCELLANE ONCE PRN Consult order Potassium Chloride 40 meq 05/29/21 07:30 05/31/21 08:10 Potassium Chloride Packet 20 Meq Packet PO Not Given Q8H [facility] Potassium Chloride 40 meq 05/31/21 09:50 Potassium Chloride Er 20 Meq Tab.Er.Prt PO 06/01/21 21:01 BID KANCHAN Sodium Chloride 3 ml 05/27/21 00:00 05/31/21 08:10 0.9 % Sodium Chloride Flush 3 Ml Syringe IVFLUSH 3 ml QSHIFT [facility] Administration Spironolactone 25 mg 05/27/21 09:00 05/31/21 08:09 Spironolactone 25 Mg Tablet PO 25 mg DAILY [facility] Administration Protocol Trazodone HCl 50 mg 05/26/21 21:00 05/30/21 20:35 Trazodone Hcl 50 Mg Tablet PO 50 mg BEDTIME KANCHAN Administration Valsartan 80 mg 05/27/21 09:00 05/31/21 08:09 Valsartan 80 Mg Tablet PO 80 mg DAILY [facility] Administration Protocol Zolpidem Tartrate 5 mg 05/26/21 21:00 07/16/21 22:33 Zolpidem Tartrate 5 Mg Tablet PO 5 mg BEDTIME KANCHAN Administration Labs CBC & Chem 7: 05/31/21 04:17 05/31/21 04:17 Labs: Laboratory Results - last 24 hr 05/30/21 05/30/21 05/30/21 10:55 16:03 20:19 WBC RBC Hgb Hct MCV MCH MCHC RDW Plt Count MPV Immature Gran % (Auto) Neut % (Auto) Lymph % (Auto) [place] % (Auto) Eos % (Auto) Baso % (Auto) Lymph # (Auto) [place] # (Auto) Eos # (Auto) Baso # (Auto) Abs Immat Gran (auto) Absolute Neuts (auto) Absolute Nucleated RBC Nucleated RBC % (auto) Sodium Potassium Chloride Carbon Dioxide Anion Gap BUN Creatinine Estim Creat Clear Calc Estimated GFR POC Glucose 136 H 135 H 164 H Random Glucose Calcium 05/31/21 05/31/21 05/31/21 04:17 04:17 07:21 WBC 13.4 H RBC 3.76 L Hgb 10.3 L Hct 32.7 L MCV 87.0 MCH 27.4 MCHC 31.5 RDW 15.2 Plt Count 253 MPV 9.8 Immature Gran % (Auto) 3.2 H Neut % (Auto) 78.5 H Lymph % (Auto) 8.6 L [place] % (Auto) 7.7 Eos % (Auto) 1.8 Baso % (Auto) 0.2 Lymph # (Auto) 1.2 [place] # (Auto) 1.0 Eos # (Auto) 0.2 Baso # (Auto) 0.0 Abs Immat Gran (auto) 0.43 H Absolute Neuts (auto) 10.6 H Absolute Nucleated RBC 0.000 Nucleated RBC % (auto) 0.0 Sodium 140 Potassium 2.9 L Chloride 101 Carbon Dioxide 29 Anion Gap 13 BUN 8 L Creatinine 0.65 Estim Creat Clear Calc 140.8 Estimated GFR > 60 POC Glucose 97 Random Glucose 103 Calcium 7.7 L Microbiology Microbiology Results: Microbiology 05/27/21 09:32 Gram Stain - Final Abscess Intra-abdominal Routine Culture - Final Anaerobic Culture - Final Bacteroides fragilis group 05/26/21 13:12 Blood Culture - Preliminary Blood - Venous No growth after 48 hours. Quality Stroke Does the patient have a stroke diagnosis?: No VTE Prior VTE?: No VTE Risk Level:: Medical - moderate - high VTE Device Contraindication: N/A - Device Ordered VTE Drug Contraindication: N/A - Med Ordered Assessment and Plan (1) Diabetes mellitus: Status: Acute (2) Abdominal wall abscess: Status: Acute Assessment and Plan: 61 year old male with DM, AFIB, CAD, CAD, CM with combined systolic and diastolic Heart failure here with with recurrent abdominal wall abscess Abdominal wall abscess and retroperitoneal abscess, had a IR drain put in 05/28 but fell out next day. He underwent Ex-lap 05/29-- Exploratory laparotomy, washout of abdominal wall abscess excision of retroperitoneal/cutaneous abscess tract, drainage of retroperitoneal abscess cavity by Dr. Singh--culture pending. Continue Zosyn, elevated WBC could be reactive, keep eye on it HypOkalemia--attempt PO if not able then IV Chronic combined systolic and diastolic heart failure--presently compensated -continue Lasix, Aldactne, Coreg and Valsarta. DC IVF Diabetes-- not on med, SSI, Paroxysmal atrial fibrillation--rate cntrolled, continue Coreg, Amiodarone, Xarelto has been hold and should check with surgery when to restart DVT: Lovenox until Xarelto restarted
[2021-05-31] MEDS: Potassium Chloride ER 20 MEQ TAB.ER.PRT 40 MEQ PO ×2 (10:27→22:29)
[2021-05-31] MEDS: Potassium Chloride/H20 10 MEQ/100 ML PIGGYBACK 100 MEQ IV ×4 (10:34→15:22)
[2021-05-31] MEDS: Enoxaparin Sodium 40 MG/0.4 ML SYRINGE SUBCUT (11:19)
[2021-05-31 11:33] VITALS: BP 135/73; PULSE 99; RESP 18; TEMP 36.6; O2SAT 94
[2021-05-31 11:50] LABS: Glucose, Whole Blood 114 mg/dL (60-115)
[2021-05-31 15:38] VITALS: BP 130/72; PULSE 88; RESP 18; TEMP 36.6; O2SAT 92
[2021-05-31 16:09] LABS: Glucose, Whole Blood 140 mg/dL (60-115)
[2021-05-31 19:42] VITALS: BP 130/80; PULSE 106; RESP 15; TEMP 36.6; O2SAT 92
[2021-05-31 20:35] LABS: Glucose, Whole Blood 125 mg/dL (60-115)
[2021-05-31] MEDS: Zolpidem Tartrate 5 MG TABLET PO (21:00)
[2021-05-31] MEDS: traZODone HCL 50 MG TABLET PO (21:00)
[2021-06-01] VITALS (8 sets, daily range): BP systolic 111–140; BP diastolic 6–78; PULSE 76–101; RESP 16–20; TEMP 35.5–36.8; O2SAT 91–96
[2021-06-01] MEDS: Piperacillin Sodium/Tazobactam 3.375 GM in 0.9 % Sodium Chloride 50 ML IV ×4 (00:03→17:37)
[2021-06-01] MEDS: 0.9 % Sodium Chloride Flush 3 ML SYRINGE IVFLUSH ×3 (00:03→16:24)
[2021-06-01] MEDS: HYDROmorphone HCl 0.5 MG/0.5 ML SYRINGE IVPUSH ×6 (00:03→22:43)
[2021-06-01 05:16] LABS: MANUAL DIFF FLAG NO
[2021-06-01 05:22] LABS: Basophils Percent Auto 0.3 % (0-2); Eosinophils Absolute Auto 0.2 X10*3/uL (0.0-0.4); Eosinophils Percent Auto 1.3 % (0-4); Hematocrit 34.3 % (42-52); Hemoglobin 10.6 g/dl (14.0-18.0); Imm Gran Abs Auto 0.47 X10*3/uL (0.00-0.03); Imm Gran Pct Auto 3.1 % (0.0-0.4); Lymphocytes Absolute Auto 1.3 X10*3/uL (1.2-4.9); Lymphocytes Percent Auto 8.6 % (20-40); Mean Corpuscular HGB Conc 30.9 g/dl (31.0-36.0); Mean Corpuscular Volume 87.3 fL (80-98); Monocytes Absolute Auto 1.1 X10*3/uL (0.1-1.2); Monocytes Percent Auto 7.1 % (2-11); Neutrophils Absolute Auto 12.2 X10*3/uL (2.0-8.3); Neutrophils Percent Auto 79.6 % (45-73); Platelet Count 298 X10*3/uL (160-400); Red Blood Count 3.93 X10*6/uL (4.60-5.80); Red Cell Distribution Width 15.1 % (11.0-16.0); White Blood Count 15.3 X10*3/uL (4.8-10.8)
[2021-06-01 05:55] LABS: Anion Gap 14 (12-20); Blood Urea Nitrogen 8 mg/dL (9-16); Calcium 7.8 mg/dL (8.4-10.2); Carbon Dioxide 28 mmol/L (22-29); Chloride 103 mmol/L (96-108); Creatinine Clr Calc Pharmacy 145.3; Estimated Glomerular Filt Rate > 60; Glucose Random 105 mg/dL (60-115); Potassium 3.7 mmol/L (3.3-5.1); Sodium 141 mmol/L (135-145)
[2021-06-01 07:29] LABS: Glucose, Whole Blood 113 mg/dL (60-115)
[2021-06-01] MEDS: Multivitamin TABLET 1 TAB PO (09:39)
[2021-06-01] MEDS: carvediloL 6.25 MG TABLET PO ×2 (09:39→20:31)
[2021-06-01] MEDS: gemfibroziL 600 MG TABLET PO ×2 (09:40→20:31)
[2021-06-01] MEDS: Valsartan 80 MG TABLET PO (09:40)
[2021-06-01] MEDS: Spironolactone 25 MG TABLET PO (09:40)
[2021-06-01] MEDS: Furosemide 40 MG TABLET PO ×2 (09:40→20:31)
--- NOTE | 2021-06-01 10:20 | PM.PNGS ---
Subjective Subjective Date of Service: 06/01/21 Interval history: Reports some incisional pain, not much of an appetite today. Physical Exam Vital Signs: Vital Signs: Last Vital Signs Temp 96.8 F 06/01/21 07:22 Pulse 93 06/01/21 09:40 Resp 20 06/01/21 07:22 BP 129/6 L 06/01/21 09:40 Pulse Ox 93 06/01/21 07:22 Body Mass Index 27.7 Resp: Effort & Inspection: normal respiratory effort GI: Other: Dressings changed, weeks advanced. No erythema. Serosanguineous discharge noted from both incisions and SHY drain. No erythema, purulence or feculent drainage. Skin: General skin exam: no rashes or lesions noted Extrem: Other: Right transmetatarsal amputation, left BKA, no edema Progress Note: A&P Assessment and plan (1) Abdominal wall abscess: Status: Acute Assessment and Plan: Status post exploratory laparotomy, drainage of retroperitoneal abscess, drainage of abdominal wall abscess with washout. Continues to have some nausea without vomiting.. WBC has increased again, will continue the IV antibiotics for least another 2 days. Recheck CBC tomorrow morning. Potassium improved this morning, continue to monitor. patient now on Lovenox. Fall Risk Details Current Medications: Current Medications Generic Name Dose Route Start Last Admin Trade Name Freq PRN Reason Stop Dose Admin Carvedilol 6.25 mg 05/26/21 21:00 06/01/21 09:39 Carvedilol 6.25 Mg Tablet PO 6.25 mg BID KANCHAN Administration Protocol Enoxaparin Sodium 40 mg 05/31/21 11:00 05/31/21 11:19 Enoxaparin Sodium 40 Mg/0.4 Ml Syringe SUBCUT 40 mg Q24H [facility] Administration Furosemide 40 mg 05/26/21 21:00 06/01/21 09:40 Furosemide 40 Mg Tablet PO 40 mg BID KANCHAN Administration Protocol Gemfibrozil 600 mg 05/26/21 21:00 06/01/21 09:40 Gemfibrozil 600 Mg Tablet PO 600 mg BID KANCHAN Administration Hydromorphone HCl 0.5 mg 05/29/21 15:08 06/01/21 09:36 Hydromorphone Hcl 0.5 Mg/0.5 Ml Syringe IVPUSH 0.5 mg Q4H PRN Administration Pain, Severe (Pain Scale 7-10) Hydromorphone HCl 2 mg 05/29/21 15:08 05/29/21 15:31 Hydromorphone Hcl 2 Mg Tablet PO 2 mg Q4H PRN Administration Pain, Moderate (Pain Scale 4-6 Piperacillin Sod/Tazobactam 50 mls @ 100 mls/hr 05/26/21 18:00 06/01/21 09:38 Sod 3.375 gm/ Sodium Chloride IV Infused Q6H [facility] Infusion Insulin Human Lispro 0 unit 05/27/21 11:30 06/01/21 09:33 Insulin Lispro 100 Unit/Ml 3 Ml Vial SUBCUT Not Given QIDACHS [facility] Protocol Multivitamins/Vitamin C 1 tab 05/27/21 09:00 06/01/21 09:39 Multivitamin Tablet PO 1 tab DAILY [facility] Administration Ondansetron HCl 4 mg 05/27/21 11:16 05/30/21 05:33 Ondansetron Hcl 4 Mg/2 Ml Vial IVPUSH 4 mg Q8H PRN Administration Nausea and Vomiting Pharmacy Consult 1 each 05/26/21 12:20 Consult Rx Perform Med Rec MISCELLANE ONCE PRN Consult order Potassium Chloride 40 meq 05/29/21 07:30 06/01/21 06:45 Potassium Chloride Packet 20 Meq Packet PO Not Given Q8H [facility] Potassium Chloride 40 meq 05/31/21 09:50 06/01/21 09:48 Potassium Chloride Er 20 Meq Tab.Er.Prt PO 06/01/21 21:01 Not Given BID [facility] Sodium Chloride 3 ml 05/27/21 00:00 06/01/21 09:36 0.9 % Sodium Chloride Flush 3 Ml Syringe IVFLUSH 3 ml QSHIFT [facility] Administration Spironolactone 25 mg 05/27/21 09:00 06/01/21 09:40 Spironolactone 25 Mg Tablet PO 25 mg DAILY [facility] Administration Protocol Trazodone HCl 50 mg 05/26/21 21:00 05/31/21 21:00 Trazodone Hcl 50 Mg Tablet PO 50 mg BEDTIME KANCHAN Administration Valsartan 80 mg 05/27/21 09:00 06/01/21 09:40 Valsartan 80 Mg Tablet PO 80 mg DAILY [facility] Administration Protocol Zolpidem Tartrate 5 mg 05/26/21 21:00 05/31/21 21:00 Zolpidem Tartrate 5 Mg Tablet PO 5 mg BEDTIME KANCHAN Administration Time Spent With Patient Time: Total time spent is greater than 50% in coordination of care (as documented) at patient's floor/unit and/or counseling patient: Time with patient: 15 - 24 minutes Procedures Date of Service Date of Service: 06/01/21 Quality Stroke Does the patient have a stroke diagnosis?: No VTE Prior VTE?: No VTE Risk Level:: Medical - moderate - high VTE Device Contraindication: N/A - Device Ordered VTE Drug Contraindication: N/A - Med Ordered
[2021-06-01 11:24] LABS: Glucose, Whole Blood 177 mg/dL (60-115)
--- NOTE | 2021-06-01 11:31 | P.PNIM_ITS ---
Subjective Subjective Date of Service: 06/01/21 Interval History: Complaining of mild persistent nausea, refusing to take by mouth potassium, tolerating diet, has on and off diarrhea, no other acute issues overnight. [employer] no headache,no dizziness CVS no cp,no sob Resp no cough, no shortness of breath Skin no rash Physical Exam Vital Signs: Vital Signs: Last Vital Signs Temp 96 F L 06/01/21 11:20 Pulse 82 06/01/21 11:20 Resp 18 06/01/21 11:20 BP 115/66 06/01/21 11:20 Pulse Ox 96 06/01/21 11:20 Body Mass Index 27.7 Constitutional No apparent distress Neck Supple, No jvd Cardiovascular RRR, No M/R/G, S1 S2, No S3 S4, No pedal edema Respiratory Lungs clear, No respiratory distress Gastrointestinal Non tender, surgical wound dressing in place, SHY drain with serosanguinous fluid Extremities right TMA no edema,left bka Skin No rash Neurological Alert & oriented x3 Psychological Appropriate affect Objective Data Current Medications Generic Name Dose Route Start Last Admin Trade Name Silvianoq PRN Reason Stop Dose Admin Carvedilol 6.25 mg 05/26/21 21:00 06/01/21 09:39 Carvedilol 6.25 Mg Tablet PO 6.25 mg BID KANCHAN Administration Protocol Enoxaparin Sodium 40 mg 05/31/21 11:00 05/31/21 11:19 Enoxaparin Sodium 40 Mg/0.4 Ml Syringe SUBCUT 40 mg Q24H [facility]ANCHAN Administration Furosemide 40 mg 05/26/21 21:00 06/01/21 09:40 Furosemide 40 Mg Tablet PO 40 mg BID KANCHAN Administration Protocol Gemfibrozil 600 mg 05/26/21 21:00 06/01/21 09:40 Gemfibrozil 600 Mg Tablet PO 600 mg BID KANCHAN Administration Hydromorphone HCl 0.5 mg 05/29/21 15:08 06/01/21 09:36 Hydromorphone Hcl 0.5 Mg/0.5 Ml Syringe IVPUSH 0.5 mg Q4H PRN Administration Pain, Severe (Pain Scale 7-10) Hydromorphone HCl 2 mg 05/29/21 15:08 05/29/21 15:31 Hydromorphone Hcl 2 Mg Tablet PO 2 mg Q4H PRN Administration Pain, Moderate (Pain Scale 4-6 Piperacillin Sod/Tazobactam 50 mls @ 100 mls/hr 05/26/21 18:00 06/01/21 09:38 Sod 3.375 gm/ Sodium Chloride IV Infused Q6H [facility] Infusion Insulin Human Lispro 0 unit 05/27/21 11:30 06/01/21 09:33 Insulin Lispro 100 Unit/Ml 3 Ml Vial SUBCUT Not Given QIDACHS [facility] Protocol Multivitamins/Vitamin C 1 tab 05/27/21 09:00 06/01/21 09:39 Multivitamin Tablet PO 1 tab DAILY [facility]CHAN Administration Ondansetron HCl 4 mg 05/27/21 11:16 05/30/21 05:33 Ondansetron Hcl 4 Mg/2 Ml Vial IVPUSH 4 mg Q8H PRN Administration Nausea and Vomiting Pharmacy Consult 1 each 05/26/21 12:20 Consult Rx Perform Med Rec MISCELLANE ONCE PRN Consult order Potassium Chloride 40 meq 05/29/21 07:30 06/01/21 06:45 Potassium Chloride Packet 20 Meq Packet PO Not Given Q8H [facility] Potassium Chloride 40 meq 05/31/21 09:50 06/01/21 09:48 Potassium Chloride Er 20 Meq Tab.Er.Prt PO 06/01/21 21:01 Not Given BID KANCHAN Sodium Chloride 3 ml 05/27/21 00:00 06/01/21 09:36 0.9 % Sodium Chloride Flush 3 Ml Syringe IVFLUSH 3 ml QSHIFT KANCHAN Administration Spironolactone 25 mg 05/27/21 09:00 06/01/21 09:40 Spironolactone 25 Mg Tablet PO 25 mg DAILY [facility]AN[facility]AN Administration Protocol Trazodone HCl 50 mg 05/26/21 21:00 05/31/21 21:00 Trazodone Hcl 50 Mg Tablet PO 50 mg BEDTIME KANCHAN Administration Valsartan 80 mg 05/27/21 09:00 06/01/21 09:40 Valsartan 80 Mg Tablet PO 80 mg DAILY KANCHAN Administration Protocol Zolpidem Tartrate 5 mg 05/26/21 21:00 05/31/21 21:00 Zolpidem Tartrate 5 Mg Tablet PO 5 mg BEDTIME KANCHAN Administration Labs CBC & Chem 7: 06/01/21 04:30 06/01/21 04:30 Labs: Laboratory Results - last 24 hr 07/17/21 07/17/21 07/17/21 10:59 16:03 20:21 WBC RBC Hgb Hct MCV MCH MCHC RDW Plt Count MPV Immature Gran % (Auto) Neut % (Auto) Lymph % (Auto) [place] % (Auto) Eos % (Auto) Baso % (Auto) Lymph # (Auto) [place] # (Auto) Eos # (Auto) Baso # (Auto) Abs Immat Gran (auto) Absolute Neuts (auto) Absolute Nucleated RBC Nucleated RBC % (auto) Sodium Potassium Chloride Carbon Dioxide Anion Gap BUN Creatinine Estim Creat Clear Calc Estimated GFR POC Glucose 114 140 H 125 H Random Glucose Calcium 06/01/21 06/01/21 06/01/21 04:30 04:30 07:21 WBC 15.3 H RBC 3.93 L Hgb 10.6 L Hct 34.3 L MCV 87.3 MCH 27.0 MCHC 30.9 L RDW 15.1 Plt Count 298 MPV 10.0 Immature Gran % (Auto) 3.1 H Neut % (Auto) 79.6 H Lymph % (Auto) 8.6 L [place] % (Auto) 7.1 Eos % (Auto) 1.3 Baso % (Auto) 0.3 Lymph # (Auto) 1.3 [place] # (Auto) 1.1 Eos # (Auto) 0.2 Baso # (Auto) 0.0 Abs Immat Gran (auto) 0.47 H Absolute Neuts (auto) 12.2 H Absolute Nucleated RBC 0.000 Nucleated RBC % (auto) 0.0 Sodium 141 Potassium 3.7 D Chloride 103 Carbon Dioxide 28 Anion Gap 14 BUN 8 L Creatinine 0.63 Estim Creat Clear Calc 145.3 Estimated GFR > 60 POC Glucose 113 Random Glucose 105 Calcium 7.8 L 06/01/21 11:19 WBC RBC Hgb Hct MCV MCH MCHC RDW Plt Count MPV Immature Gran % (Auto) Neut % (Auto) Lymph % (Auto) [place] % (Auto) Eos % (Auto) Baso % (Auto) Lymph # (Auto) [place] # (Auto) Eos # (Auto) Baso # (Auto) Abs Immat Gran (auto) Absolute Neuts (auto) Absolute Nucleated RBC Nucleated RBC % (auto) Sodium Potassium Chloride Carbon Dioxide Anion Gap BUN Creatinine Estim Creat Clear Calc Estimated GFR POC Glucose 177 H Random Glucose Calcium Microbiology Microbiology Results: Microbiology 05/26/21 13:12 Blood Culture - Final Blood - Venous No growth after 5 days. Quality Stroke Does the patient have a stroke diagnosis?: No VTE Prior VTE?: No VTE Risk Level:: Medical - moderate - high VTE Device Contraindication: N/A - Device Ordered VTE Drug Contraindication: N/A - Med Ordered Assessment and Plan (1) Abdominal wall abscess: Status: Acute (2) Hypokalemia: Status: Acute (3) Diabetes mellitus: Status: Acute Assessment and Plan: 61 year old male with DM, AFIB, CAD, CAD, CM with combined systolic and [place] stolic Heart failure here with with recurrent abdominal wall abscess Abdominal wall abscess and retroperitoneal abscess, had a IR drain put in 05/28 but fell out next day underwent Ex-lap 05/29 s/p washout of abdominal wall abscess Continue Zosyn, elevated WBC likely reactive since patient afebrile, no worsening abdominal, could be reactive, question C diff, lasts C diff serology neg on 05/28 Will recheck C diff, follow CBC further treatment plan as per surgery Diarrhea will recheck C diff due to rising WBC, if negative will use Imodium likely related to antibiotic. Hypokalemia--likely due to diuretics, potassium normalized to 3.7, patient refusing by mouth due to nausea will give daily IV potassium Chronic combined systolic and diastolic heart failure--presently compensated continue Lasix, Aldactne, Coreg and Valsarta. Diabetes-- blood sugars stable continue, SSI, and change regular diet to diabetic diet Paroxysmal atrial fibrillation--rate cntrolled, continue Coreg, Amiodarone, Xarelto has been hold will discuss with surgery when to resume anticoagulation DVT: Lovenox until Xarelto restarted
[2021-06-01] MEDS: Enoxaparin Sodium 40 MG/0.4 ML SYRINGE SUBCUT (11:56)
[2021-06-01] MEDS: Insulin Lispro 100 UNIT/ML 3 ML VIAL SUBCUT (11:56)
[2021-06-01] MEDS: Potassium Chloride/H20 10 MEQ/100 ML PIGGYBACK 100 MEQ IV (12:31)
[2021-06-01 16:14] LABS: Glucose, Whole Blood 103 mg/dL (60-115)
[2021-06-01 20:12] LABS: Glucose, Whole Blood 134 mg/dL (60-115)
[2021-06-01] MEDS: traZODone HCL 50 MG TABLET PO (20:31)
[2021-06-01] MEDS: Zolpidem Tartrate 5 MG TABLET PO (20:31)
[2021-06-02] VITALS (7 sets, daily range): BP systolic 118–138; BP diastolic 64–83; PULSE 72–85; RESP 17–20; TEMP 35.8–37.1; O2SAT 91–94
[2021-06-02] MEDS: 0.9 % Sodium Chloride Flush 3 ML SYRINGE IVFLUSH ×3 (00:16→15:23)
[2021-06-02] MEDS: Piperacillin Sodium/Tazobactam 3.375 GM in 0.9 % Sodium Chloride 50 ML IV ×4 (00:16→19:23)
[2021-06-02] MEDS: HYDROmorphone HCl 0.5 MG/0.5 ML SYRINGE IVPUSH ×5 (02:40→19:23)
[2021-06-02 06:44] LABS: MANUAL DIFF FLAG NO
[2021-06-02 06:53] LABS: Basophils Percent Auto 0.3 % (0-2); Eosinophils Absolute Auto 0.2 X10*3/uL (0.0-0.4); Eosinophils Percent Auto 1.3 % (0-4); Hemoglobin 10.6 g/dl (14.0-18.0); Imm Gran Abs Auto 0.32 X10*3/uL (0.00-0.03); Imm Gran Pct Auto 2.7 % (0.0-0.4); Lymphocytes Absolute Auto 1.5 X10*3/uL (1.2-4.9); Lymphocytes Percent Auto 12.6 % (20-40); Mean Corpuscular HGB Conc 31.2 g/dl (31.0-36.0); Mean Corpuscular Hemoglobin 27.7 pg (27.0-33.0); Mean Corpuscular Volume 88.8 fL (80-98); Mean Platelet Volume 10.2 fL (9.4-12.4); Monocytes Absolute Auto 0.9 X10*3/uL (0.1-1.2); Monocytes Percent Auto 7.7 % (2-11); Neutrophils Absolute Auto 8.9 X10*3/uL (2.0-8.3); Neutrophils Percent Auto 75.4 % (45-73); Platelet Count 301 X10*3/uL (160-400); Red Blood Count 3.83 X10*6/uL (4.60-5.80); White Blood Count 11.9 X10*3/uL (4.8-10.8)
[2021-06-02 07:20] LABS: Glucose, Whole Blood 129 mg/dL (60-115)
[2021-06-02 07:28] LABS: Anion Gap 13 (12-20); Blood Urea Nitrogen 8 mg/dL (9-16); Calcium 7.8 mg/dL (8.4-10.2); Carbon Dioxide 31 mmol/L (22-29); Chloride 101 mmol/L (96-108); Creatinine Clr Calc Pharmacy 128.9; Estimated Glomerular Filt Rate > 60; Glucose Random 119 mg/dL (60-115); Potassium 3.5 mmol/L (3.3-5.1); Sodium 141 mmol/L (135-145)
[2021-06-02] MEDS: carvediloL 6.25 MG TABLET PO ×2 (08:48→21:07)
[2021-06-02] MEDS: Loperamide HCl 2 MG CAPSULE 4 MG PO (08:49)
[2021-06-02] MEDS: Valsartan 80 MG TABLET PO (08:49)
[2021-06-02] MEDS: Furosemide 40 MG TABLET PO ×2 (08:49→21:07)
[2021-06-02] MEDS: Multivitamin TABLET 1 TAB PO (08:49)
[2021-06-02] MEDS: Spironolactone 25 MG TABLET PO (08:49)
[2021-06-02] MEDS: gemfibroziL 600 MG TABLET PO ×2 (08:50→21:07)
[2021-06-02] MEDS: ondansetron HCL 4 MG/2 ML VIAL IVPUSH (08:54)
[2021-06-02 11:20] LABS: Glucose, Whole Blood 130 mg/dL (60-115)
[2021-06-02] MEDS: Enoxaparin Sodium 40 MG/0.4 ML SYRINGE SUBCUT (12:48)
--- NOTE | 2021-06-02 12:49 | MHC.CM.PN ---
Patient has not yet been medically cleared for dc (IV Zosyn, IV Dilaudid & IV Zofran today). PT rec home with services and CM will follow for oossible need to adjust the dc plan.
--- NOTE | 2021-06-02 13:50 | P.PNGS_ITS ---
Subjective Subjective Date of Service: 06/02/21 Interval history: Patient very upset about getting a diabetic diet; he will not eat a diabetic diet. Reports abdominal pain is much improved. Denies nausea or vomiting today. Physical Exam 2 Vital Signs: Vital Signs: Last Vital Signs Temp 98.7 F 06/02/21 11:40 Pulse 84 06/02/21 11:40 Resp 20 06/02/21 11:40 BP 135/82 06/02/21 11:40 Pulse Ox 92 06/02/21 11:40 Body Mass Index 27.7 Const: General: comfortable and no acute distress Nutritional Appearance: cachectic Orientation/consciousness: patient oriented x3 Resp: Effort & Inspection: normal respiratory effort, no cough and not tachypneic GI: Inspection: Yes normal to inspection Palpation (GI): Soft to palpation, nontender, no guarding and not rigid Percussion: Yes normal to percussion Skin: General skin exam: no rashes or lesions noted Neuro: General: patient oriented x3 Extrem: General: Yes no clubbing, cyanosis or edema Progress Note: A&P Assessment and plan (1) Abdominal wall abscess: Status: Acute Assessment and Plan: Patient continues to improve with decreased pain and improved appetite. WBC is improving as well. Continue antibiotics and local wound care. Will gradually advance janette in the incision. Fall Risk Details Current Medications: Current Medications Generic Name Dose Route Start Last Admin Trade Name Freq PRN Reason Stop Dose Admin Carvedilol 6.25 mg 05/26/21 21:00 06/02/21 08:48 Carvedilol 6.25 Mg Tablet PO 6.25 mg BID KANCHAN Administration Protocol Enoxaparin Sodium 40 mg 05/31/21 11:00 06/02/21 12:48 Enoxaparin Sodium 40 Mg/0.4 Ml Syringe SUBCUT 40 mg Q24H [facility]AN Administration Furosemide 40 mg 05/26/21 21:00 06/02/21 08:49 Furosemide 40 Mg Tablet PO 40 mg BID KANCHAN Administration Protocol Gemfibrozil 600 mg 05/26/21 21:00 06/02/21 08:50 Gemfibrozil 600 Mg Tablet PO 600 mg BID KANCHAN Administration Hydromorphone HCl 0.5 mg 05/29/21 15:08 06/02/21 11:09 Hydromorphone Hcl 0.5 Mg/0.5 Ml Syringe IVPUSH 0.5 mg Q4H PRN Administration Pain, Severe (Pain Scale 7-10) Hydromorphone HCl 2 mg 05/29/21 15:08 05/29/21 15:31 Hydromorphone Hcl 2 Mg Tablet PO 2 mg Q4H PRN Administration Pain, Moderate (Pain Scale 4-6 Piperacillin Sod/Tazobactam 50 mls @ 100 mls/hr 05/26/21 18:00 06/02/21 12:48 Sod 3.375 gm/ Sodium Chloride IV 100 mls/hr Q6H [facility] Administration Insulin Human Lispro 0 unit 05/27/21 11:30 06/02/21 11:26 Insulin Lispro 100 Unit/Ml 3 Ml Vial SUBCUT Not Given QIDACHS [facility] Protocol Multivitamins/Vitamin C 1 tab 05/27/21 09:00 06/02/21 08:49 Multivitamin Tablet PO 1 tab DAILY [facility] Administration Ondansetron HCl 4 mg 05/27/21 11:16 06/02/21 08:54 Ondansetron Hcl 4 Mg/2 Ml Vial IVPUSH 4 mg Q8H PRN Administration Nausea and Vomiting Pharmacy Consult 1 each 05/26/21 12:20 Consult Rx Perform Med Rec MISCELLANE ONCE PRN Consult order Sodium Chloride 3 ml 05/27/21 00:00 06/02/21 08:50 0.9 % Sodium Chloride Flush 3 Ml Syringe IVFLUSH 3 ml QSHIFT [facility] Administration Spironolactone 25 mg 05/27/21 09:00 06/02/21 08:49 Spironolactone 25 Mg Tablet PO 25 mg DAILY [facility] Administration Protocol Trazodone HCl 50 mg 05/26/21 21:00 06/01/21 20:31 Trazodone Hcl 50 Mg Tablet PO 50 mg BEDTIME [facility] Administration Valsartan 80 mg 05/27/21 09:00 06/02/21 08:49 Valsartan 80 Mg Tablet PO 80 mg DAILY [facility] Administration Protocol Zolpidem Tartrate 5 mg 05/26/21 21:00 06/01/21 20:31 Zolpidem Tartrate 5 Mg Tablet PO 5 mg BEDTIME [facility] Administration Time Spent With Patient Time: Total time spent is greater than 50% in coordination of care (as documented) at patient's floor/unit and/or counseling patient: Time with patient: 15 - 24 minutes Procedures Date of Service Date of Service: 06/02/21 Quality Stroke Does the patient have a stroke diagnosis?: No VTE Prior VTE?: No VTE Risk Level:: Medical - moderate - high VTE Device Contraindication: N/A - Device Ordered VTE Drug Contraindication: N/A - Med Ordered
[2021-06-02 16:11] LABS: Glucose, Whole Blood 138 mg/dL (60-115)
--- NOTE | 2021-06-02 17:12 | HO.PM.IMPN ---
Subjective Subjective Date of Service: 06/02/21 Interval History: No new complaints has intermittent mild nausea, no further bouts of diarrhea, refusing to eat diabetic and low-salt diet, no other acute issues overnight. ROS [employer] no headache,no dizziness CVS no cp,no sob Resp no cough, no shortness of breath Skin no rash Physical Exam Vital Signs: Vital Signs: Last Vital Signs Temp 97.9 F 06/02/21 14:59 Pulse 80 06/02/21 14:59 Resp 17 06/02/21 14:59 BP 118/64 06/02/21 14:59 Pulse Ox 91 L 06/02/21 14:59 Body Mass Index 27.7 Constitutional No apparent distress Neck Supple, No jvd Cardiovascular RRR, No M/R/G, S1 S2, No S3 S4, No pedal edema Respiratory Lungs clear, No respiratory distress Gastrointestinal Non tender, surgical wound dressing in place, SHY drain with serosanguinous fluid Extremities right TMA 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,left bka Skin No rash Neurological Alert & oriented x3 Psychological Appropriate affect Objective Data Current Medications Generic Name Dose Route Start Last Admin Trade Name Silvianoq PRN Reason Stop Dose Admin Carvedilol 6.25 mg 05/26/21 21:00 06/02/21 08:48 Carvedilol 6.25 Mg Tablet PO 6.25 mg BID KANCHAN Administration Protocol Enoxaparin Sodium 40 mg 05/31/21 11:00 06/02/21 12:48 Enoxaparin Sodium 40 Mg/0.4 Ml Syringe SUBCUT 40 mg Q24H KANCHAN Administration Furosemide 40 mg 05/26/21 21:00 06/02/21 08:49 Furosemide 40 Mg Tablet PO 40 mg BID KANCHAN Administration Protocol Gemfibrozil 600 mg 05/26/21 21:00 06/02/21 08:50 Gemfibrozil 600 Mg Tablet PO 600 mg BID KANCHAN Administration Hydromorphone HCl 0.5 mg 05/29/21 15:08 06/02/21 15:21 Hydromorphone Hcl 0.5 Mg/0.5 Ml Syringe IVPUSH 0.5 mg Q4H PRN Administration Pain, Severe (Pain Scale 7-10) Hydromorphone HCl 2 mg 05/29/21 15:08 05/29/21 15:31 Hydromorphone Hcl 2 Mg Tablet PO 2 mg Q4H PRN Administration Pain, Moderate (Pain Scale 4-6 Piperacillin Sod/Tazobactam 50 mls @ 100 mls/hr 05/26/21 18:00 06/02/21 13:18 Sod 3.375 gm/ Sodium Chloride IV Infused Q6H KANCHAN Infusion Insulin Human Lispro 0 unit 05/27/21 11:30 06/02/21 16:17 Insulin Lispro 100 Unit/Ml 3 Ml Vial SUBCUT Not Given QIDACHS [facility] Protocol Multivitamins/Vitamin C 1 tab 05/27/21 09:00 06/02/21 08:49 Multivitamin Tablet PO 1 tab DAILY KANCHAN Administration Ondansetron HCl 4 mg 05/27/21 11:16 06/02/21 08:54 Ondansetron Hcl 4 Mg/2 Ml Vial IVPUSH 4 mg Q8H PRN Administration Nausea and Vomiting Pharmacy Consult 1 each 05/26/21 12:20 Consult Rx Perform Med Rec MISCELLANE ONCE PRN Consult order Sodium Chloride 3 ml 05/27/21 00:00 06/02/21 15:23 0.9 % Sodium Chloride Flush 3 Ml Syringe IVFLUSH 3 ml QSHIFT [facility] Administration Spironolactone 25 mg 05/27/21 09:00 06/02/21 08:49 Spironolactone 25 Mg Tablet PO 25 mg DAILY [facility] Administration Protocol Trazodone HCl 50 mg 05/26/21 21:00 06/01/21 20:31 Trazodone Hcl 50 Mg Tablet PO 50 mg BEDTIME KANCHAN Administration Valsartan 80 mg 05/27/21 09:00 06/02/21 08:49 Valsartan 80 Mg Tablet PO 80 mg DAILY KANCHAN Administration Protocol Zolpidem Tartrate 5 mg 05/26/21 21:00 06/01/21 20:31 Zolpidem Tartrate 5 Mg Tablet PO 5 mg BEDTIME KANCHAN Administration Labs CBC & Chem 7: 06/02/21 05:21 06/02/21 05:21 Labs: Laboratory Results - last 24 hr 06/01/21 06/02/21 06/02/21 20:08 05:21 05:21 WBC 11.9 H RBC 3.83 L Hgb 10.6 L Hct 34.0 L MCV 88.8 MCH 27.7 MCHC 31.2 RDW 16.0 Plt Count 301 MPV 10.2 Immature Gran % (Auto) 2.7 H Neut % (Auto) 75.4 H Lymph % (Auto) 12.6 L [place] % (Auto) 7.7 Eos % (Auto) 1.3 Baso % (Auto) 0.3 Lymph # (Auto) 1.5 [place] # (Auto) 0.9 Eos # (Auto) 0.2 Baso # (Auto) 0.0 Abs Immat Gran (auto) 0.32 H Absolute Neuts (auto) 8.9 H Absolute Nucleated RBC 0.000 Nucleated RBC % (auto) 0.0 Sodium 141 Potassium 3.5 Chloride 101 Carbon Dioxide 31 H Anion Gap 13 BUN 8 L Creatinine 0.71 Estim Creat Clear Calc 128.9 Estimated GFR > 60 POC Glucose 134 H Random Glucose 119 H Calcium 7.8 L 06/02/21 06/02/21 06/02/21 07:12 11:14 16:03 WBC RBC Hgb Hct MCV MCH MCHC RDW Plt Count MPV Immature Gran % (Auto) Neut % (Auto) Lymph % (Auto) [place] % (Auto) Eos % (Auto) Baso % (Auto) Lymph # (Auto) [place] # (Auto) Eos # (Auto) Baso # (Auto) Abs Immat Gran (auto) Absolute Neuts (auto) Absolute Nucleated RBC Nucleated RBC % (auto) Sodium Potassium Chloride Carbon Dioxide Anion Gap BUN Creatinine Estim Creat Clear Calc Estimated GFR POC Glucose 129 H 130 H 138 H Random Glucose Calcium Quality Stroke Does the patient have a stroke diagnosis?: No VTE Prior VTE?: No VTE Risk Level:: Medical - moderate - high VTE Device Contraindication: N/A - Device Ordered VTE Drug Contraindication: N/A - Med Ordered Assessment and Plan (1) Diarrhea: Status: Acute (2) Hypokalemia: Status: Acute (3) Diabetes mellitus: Status: Acute (4) Abdominal wall abscess: Status: Acute (5) Cardiomyopathy: Status: Acute (6) CHF (congestive heart failure): Status: Acute Assessment and Plan: 61 year old male with DM, AFIB, CAD, CAD, CM with combined systolic and diastolic Heart failure here with with recurrent abdominal wall abscess Abdominal wall abscess and retroperitoneal abscess Persistent mild nausea, less diarrhea, no significant abdominal pain, had IR drain put in 05/28 but fell out next day underwent Ex-lap 05/29 s/p washout of abdominal wall abscess Continue Zosyn day 7, elevated WBC trending down, patient afebrile, no worsening abdominal, lasts C diff serology neg on 05/28 further treatment plan as per surgery, diet changed to regular since patient refused to take diabetic diet Diarrhea resolving WBC trending down, 1 dose of Imodium given Hypokalemia--likely due to diuretics, potassium normalized , patient refusing by mouth due to nausea will give daily IV potassium Chronic combined systolic and diastolic heart failure--presently compensated continue Lasix, Aldactne, Coreg and Valsarta. Diabetes-- blood sugars stable continue, SSI, and regular diet Paroxysmal atrial fibrillation--rate controlled, continue Coreg, Amiodarone, and resume Xarelto okayed by General surgery. DVT: Xarelto restarted
[2021-06-02] MEDS: Potassium Chloride/H20 10 MEQ/100 ML PIGGYBACK 100 MEQ IV (18:01)
[2021-06-02 20:04] LABS: Glucose, Whole Blood 135 mg/dL (60-115)
[2021-06-02] MEDS: traZODone HCL 50 MG TABLET PO (21:07)
[2021-06-02] MEDS: Zolpidem Tartrate 5 MG TABLET PO (21:07)
[2021-06-03] VITALS (11 sets, daily range): BP systolic 117–134; BP diastolic 65–72; PULSE 73–83; RESP 17–18; TEMP 36.1–36.4; O2SAT 91–96
[2021-06-03] MEDS: Piperacillin Sodium/Tazobactam 3.375 GM in 0.9 % Sodium Chloride 50 ML IV ×5 (00:38→22:59)
[2021-06-03] MEDS: HYDROmorphone HCl 0.5 MG/0.5 ML SYRINGE IVPUSH ×5 (00:38→20:21)
[2021-06-03] MEDS: 0.9 % Sodium Chloride Flush 3 ML SYRINGE IVFLUSH ×3 (00:46→23:00)
[2021-06-03 06:35] LABS: Anion Gap 13 (12-20); Blood Urea Nitrogen 7 mg/dL (9-16); Carbon Dioxide 33 mmol/L (22-29); Chloride 100 mmol/L (96-108); Creatinine Clr Calc Pharmacy 125.3; Estimated Glomerular Filt Rate > 60; Glucose Random 126 mg/dL (60-115); Potassium 3.7 mmol/L (3.3-5.1); Sodium 142 mmol/L (135-145)
[2021-06-03 06:53] LABS: Glucose, Whole Blood 128 mg/dL (60-115)
[2021-06-03] MEDS: Multivitamin TABLET 1 TAB PO (08:12)
[2021-06-03] MEDS: Rivaroxaban 20 MG TABLET PO (08:12)
[2021-06-03] MEDS: Valsartan 80 MG TABLET PO (08:12)
[2021-06-03] MEDS: carvediloL 6.25 MG TABLET PO ×2 (08:12→20:22)
[2021-06-03] MEDS: gemfibroziL 600 MG TABLET PO ×2 (08:12→20:22)
[2021-06-03] MEDS: Furosemide 40 MG TABLET PO ×2 (08:12→20:22)
[2021-06-03] MEDS: Spironolactone 25 MG TABLET PO (08:12)
[2021-06-03 10:59] LABS: Glucose, Whole Blood 140 mg/dL (60-115)
--- NOTE | 2021-06-03 11:40 | PC.NURSE ---
Skin/Wound assessment completed today. Small 0.1 x0.1 x0.1 pressure ulcer-almost healed-Woundres' gel applied/foam. Right lateral surgical incision C/D/I, and lower abdominal incision with SHY drain, C/D/I draining serosanguineous fluid.
--- NOTE | 2021-06-03 11:42 | HO.PM.IMPN ---
Subjective Subjective Date of Service: 06/03/21 Interval History: Seen in f/u for recurrent abdominal wall abscess, POD for ex-lap. Has some tenderness around surgery site Review of Systems Gen: no fever Resp: no sob, no cough CV: no chest, no AIKEN, no leg edema GI: + n/v, no abd pain Neuro: No confusion Physical Exam Vital Signs: Vital Signs: Last Vital Signs Temp 97.0 F 06/03/21 11:04 Pulse 80 06/03/21 11:04 Resp 18 06/03/21 11:04 BP 125/67 06/03/21 11:04 Pulse Ox 95 06/03/21 11:04 Body Mass Index 27.7 Const: Other: Constitutional Awake and Alert, No apparent distress Neck Supple, No lymphadenopathy Cardiovascular RRR, No M/R/G, S1 S2, No S3 S4, No pedal edema Respiratory Lungs clear, No respiratory distress Gastrointestinal Non tender, surgical wound dressing in place, Skin No rash Neurological Alert & oriented x3 Psychological Appropriate affect Objective Data Current Medications Generic Name Dose Route Start Last Admin Trade Name Silvianoq PRN Reason Stop Dose Admin Carvedilol 6.25 mg 05/26/21 21:00 06/03/21 08:12 Carvedilol 6.25 Mg Tablet PO 6.25 mg BID KANCHAN Administration Protocol Furosemide 40 mg 05/26/21 21:00 06/03/21 08:12 Furosemide 40 Mg Tablet PO 40 mg BID KANCHAN Administration Protocol Gemfibrozil 600 mg 05/26/21 21:00 06/03/21 08:12 Gemfibrozil 600 Mg Tablet PO 600 mg BID KANCHAN Administration Hydromorphone HCl 0.5 mg 05/29/21 15:08 06/03/21 11:17 Hydromorphone Hcl 0.5 Mg/0.5 Ml Syringe IVPUSH 0.5 mg Q4H PRN Administration Pain, Severe (Pain Scale 7-10) Hydromorphone HCl 2 mg 05/29/21 15:08 05/29/21 15:31 Hydromorphone Hcl 2 Mg Tablet PO 2 mg Q4H PRN Administration Pain, Moderate (Pain Scale 4-6 Piperacillin Sod/Tazobactam 50 mls @ 100 mls/hr 05/26/21 18:00 06/03/21 07:41 Sod 3.375 gm/ Sodium Chloride IV Infused Q6H KANCHAN Infusion Insulin Human Lispro 0 unit 05/27/21 11:30 06/03/21 11:04 Insulin Lispro 100 Unit/Ml 3 Ml Vial SUBCUT Not Given QIDACHS [facility] Protocol Multivitamins/Vitamin C 1 tab 05/27/21 09:00 06/03/21 08:12 Multivitamin Tablet PO 1 tab DAILY KANCHAN Administration Ondansetron HCl 4 mg 05/27/21 11:16 06/02/21 08:54 Ondansetron Hcl 4 Mg/2 Ml Vial IVPUSH 4 mg Q8H PRN Administration Nausea and Vomiting Pharmacy Consult 1 each 05/26/21 12:20 Consult Rx Perform Med Rec MISCELLANE ONCE PRN Consult order Rivaroxaban 20 mg 06/03/21 09:00 06/03/21 08:12 Rivaroxaban 20 Mg Tablet PO 20 mg DAILY KANCHAN Administration Sodium Chloride 3 ml 05/27/21 00:00 06/03/21 08:15 0.9 % Sodium Chloride Flush 3 Ml Syringe IVFLUSH 3 ml QSHIFT KANCHAN Administration Spironolactone 25 mg 05/27/21 09:00 06/03/21 08:12 Spironolactone 25 Mg Tablet PO 25 mg DAILY KANCHAN Administration Protocol Trazodone HCl 50 mg 05/26/21 21:00 06/02/21 21:07 Trazodone Hcl 50 Mg Tablet PO 50 mg BEDTIME KANCHAN Administration Valsartan 80 mg 05/27/21 09:00 06/03/21 08:12 Valsartan 80 Mg Tablet PO 80 mg DAILY KANCHAN Administration Protocol Zolpidem Tartrate 5 mg 05/26/21 21:00 06/02/21 21:07 Zolpidem Tartrate 5 Mg Tablet PO 5 mg BEDTIME KANCHAN Administration Labs CBC & Chem 7: 06/02/21 05:21 06/03/21 05:33 Labs: Laboratory Results - last 24 hr 06/02/21 06/02/21 06/03/21 16:03 19:57 05:33 Sodium 142 Potassium 3.7 Chloride 100 Carbon Dioxide 33 H Anion Gap 13 BUN 7 L Creatinine 0.73 Estim Creat Clear Calc 125.3 Estimated GFR > 60 POC Glucose 138 H 135 H Random Glucose 126 H Calcium 8.0 L 07/20/21 07/20/21 06:49 10:56 Sodium Potassium Chloride Carbon Dioxide Anion Gap BUN Creatinine Estim Creat Clear Calc Estimated GFR POC Glucose 128 H 140 H Random Glucose Calcium Quality Stroke Does the patient have a stroke diagnosis?: No VTE Prior VTE?: No VTE Risk Level:: Medical - moderate - high VTE Device Contraindication: N/A - Device Ordered VTE Drug Contraindication: N/A - Med Ordered Assessment and Plan (1) Diarrhea: Status: Acute (2) Hypokalemia: Status: Acute (3) Diabetes mellitus: Status: Acute (4) Abdominal wall abscess: Status: Acute (5) Cardiomyopathy: Status: Acute (6) CHF (congestive heart failure): Status: Acute Assessment and Plan: 61 year old male with DM, AFIB, CAD, CAD, CM with combined systolic and diastolic Heart failure here with with recurrent abdominal wall abscess Abdominal wall abscess and retroperitoneal abscess Persistent mild nausea, less diarrhea, no significant abdominal pain, had IR drain put in 05/28 but fell out next day underwent Ex-lap 05/29 s/p washout of abdominal wall abscess Continue Zosyn day 8, elevated WBC trending down, patient afebrile, no worsening abdominal, lasts C diff serology neg on 05/28 further treatment plan as per surgery, diet changed to regular since patient refused to take diabetic diet Diarrhea resolving WBC trending down, PRN Imodium Hypokalemia--likely due to diuretics, potassium normalized , patient refusing by mouth due to nausea will give daily IV potassium as needed Chronic combined systolic and diastolic heart failure--presently compensated continue Lasix, Aldactne, Coreg and Valsarta. Diabetes-- blood sugars stable continue, SSI, and regular diet Paroxysmal atrial fibrillation--rate controlled, continue Coreg, Amiodarone, and resume Xarelto okayed by General surgery. DVT: Xarelto restarted
[2021-06-03 16:05] LABS: Glucose, Whole Blood 126 mg/dL (60-115)
--- NOTE | 2021-06-03 17:18 | P.PNGS_ITS ---
Subjective Subjective Date of Service: 06/03/21 Interval history: Feels improved with decreased abdominal pain, no nausea or vomiting today. He is tolerating a regular diet. Physical Exam Vital Signs: Vital Signs: Last Vital Signs Temp 97.1 F 06/03/21 15:00 Pulse 75 06/03/21 15:00 Resp 17 06/03/21 15:00 BP 118/65 06/03/21 15:00 Pulse Ox 94 06/03/21 15:00 Body Mass Index 27.7 Resp: Effort & Inspection: normal respiratory effort GI: Other: Dressings changed. There is some mucopurulent discharge from the lateral. The janette were advanced and clean dressings applied. SHY appears more serosanguineous. Skin: Other: Warm, dry, no rash Extrem: General: No edema Progress Note: A&P Assessment and plan (1) Abdominal wall abscess: Status: Acute Assessment and Plan: status post abdominal exploration, drainage of retroperitoneal abscess and drainage of abdominal wall abscess. The drainage is a little bit more purulence today in the lateral abdomen. No fecal drainage is noted however. Will continue local wound care. Check CBC, BMP in a.m. continue physical therapy Fall Risk Details Current Medications: Current Medications Generic Name Dose Route Start Last Admin Trade Name Freq PRN Reason Stop Dose Admin Carvedilol 6.25 mg 05/26/21 21:00 06/03/21 08:12 Carvedilol 6.25 Mg Tablet PO 6.25 mg BID KANCHAN Administration Protocol Furosemide 40 mg 05/26/21 21:00 06/03/21 08:12 Furosemide 40 Mg Tablet PO 40 mg BID KANCHAN Administration Protocol Gemfibrozil 600 mg 05/26/21 21:00 06/03/21 08:12 Gemfibrozil 600 Mg Tablet PO 600 mg BID KANCHAN Administration Hydromorphone HCl 0.5 mg 05/29/21 15:08 06/03/21 15:19 Hydromorphone Hcl 0.5 Mg/0.5 Ml Syringe IVPUSH 0.5 mg Q4H PRN Administration Pain, Severe (Pain Scale 7-10) Hydromorphone HCl 2 mg 05/29/21 15:08 05/29/21 15:31 Hydromorphone Hcl 2 Mg Tablet PO 2 mg Q4H PRN Administration Pain, Moderate (Pain Scale 4-6 Piperacillin Sod/Tazobactam 50 mls @ 100 mls/hr 05/26/21 18:00 06/03/21 13:15 Sod 3.375 gm/ Sodium Chloride IV Infused Q6H KANCHAN Infusion Insulin Human Lispro 0 unit 05/27/21 11:30 06/03/21 16:08 Insulin Lispro 100 Unit/Ml 3 Ml Vial SUBCUT Not Given QIDACHS [facility] Protocol Multivitamins/Vitamin C 1 tab 05/27/21 09:00 06/03/21 08:12 Multivitamin Tablet PO 1 tab DAILY KANCHAN Administration Ondansetron HCl 4 mg 05/27/21 11:16 06/02/21 08:54 Ondansetron Hcl 4 Mg/2 Ml Vial IVPUSH 4 mg Q8H PRN Administration Nausea and Vomiting Pharmacy Consult 1 each 05/26/21 12:20 Consult Rx Perform Med Rec MISCELLANE ONCE PRN Consult order Rivaroxaban 20 mg 06/03/21 09:00 06/03/21 08:12 Rivaroxaban 20 Mg Tablet PO 20 mg DAILY KANCHAN Administration Sodium Chloride 3 ml 05/27/21 00:00 06/03/21 15:54 0.9 % Sodium Chloride Flush 3 Ml Syringe IVFLUSH Not Given QSHIFT [facility] Spironolactone 25 mg 05/27/21 09:00 06/03/21 08:12 Spironolactone 25 Mg Tablet PO 25 mg DAILY KANCHAN Administration Protocol Trazodone HCl 50 mg 05/26/21 21:00 06/02/21 21:07 Trazodone Hcl 50 Mg Tablet PO 50 mg BEDTIME KANCHAN Administration Valsartan 80 mg 05/27/21 09:00 06/03/21 08:12 Valsartan 80 Mg Tablet PO 80 mg DAILY [facility] Administration Protocol Zolpidem Tartrate 5 mg 05/26/21 21:00 06/02/21 21:07 Zolpidem Tartrate 5 Mg Tablet PO 5 mg BEDTIME KANCHAN Administration Time Spent With Patient Time: Total time spent is greater than 50% in coordination of care (as documented) at patient's floor/unit and/or counseling patient: Time with patient: 15 - 24 minutes Procedures Date of Service Date of Service: 06/03/21 Quality Stroke Does the patient have a stroke diagnosis?: No VTE Prior VTE?: No VTE Risk Level:: Medical - moderate - high VTE Device Contraindication: N/A - Device Ordered VTE Drug Contraindication: N/A - Med Ordered
[2021-06-03 20:02] LABS: Glucose, Whole Blood 149 mg/dL (60-115)
[2021-06-03] MEDS: traZODone HCL 50 MG TABLET PO (22:59)
[2021-06-03] MEDS: Zolpidem Tartrate 5 MG TABLET PO (22:59)
[2021-06-04] VITALS (10 sets, daily range): BP systolic 106–143; BP diastolic 58–77; PULSE 70–96; RESP 18–20; TEMP 36.2–36.9; O2SAT 92–97
[2021-06-04] MEDS: HYDROmorphone HCl 0.5 MG/0.5 ML SYRINGE IVPUSH ×5 (00:38→23:31)
[2021-06-04] MEDS: Piperacillin Sodium/Tazobactam 3.375 GM in 0.9 % Sodium Chloride 50 ML IV ×4 (05:33→23:32)
[2021-06-04 06:58] LABS: Glucose, Whole Blood 125 mg/dL (60-115)
[2021-06-04 06:59] LABS: MANUAL DIFF FLAG NO
[2021-06-04 07:06] LABS: Basophils Percent Auto 0.2 % (0-2); Eosinophils Absolute Auto 0.2 X10*3/uL (0.0-0.4); Eosinophils Percent Auto 1.2 % (0-4); Hematocrit 33.7 % (42-52); Hemoglobin 10.5 g/dl (14.0-18.0); Imm Gran Abs Auto 0.12 X10*3/uL (0.00-0.03); Lymphocytes Absolute Auto 0.9 X10*3/uL (1.2-4.9); Lymphocytes Percent Auto 7.5 % (20-40); Mean Corpuscular HGB Conc 31.2 g/dl (31.0-36.0); Mean Corpuscular Hemoglobin 27.8 pg (27.0-33.0); Mean Corpuscular Volume 89.2 fL (80-98); Mean Platelet Volume 9.6 fL (9.4-12.4); Monocytes Absolute Auto 0.8 X10*3/uL (0.1-1.2); Monocytes Percent Auto 6.4 % (2-11); Neutrophils Absolute Auto 10.2 X10*3/uL (2.0-8.3); Neutrophils Percent Auto 83.7 % (45-73); Platelet Count 341 X10*3/uL (160-400); Red Blood Count 3.78 X10*6/uL (4.60-5.80); Red Cell Distribution Width 16.9 % (11.0-16.0); White Blood Count 12.2 X10*3/uL (4.8-10.8)
[2021-06-04 07:31] LABS: Anion Gap 12 (12-20); Blood Urea Nitrogen 7 mg/dL (9-16); Carbon Dioxide 35 mmol/L (22-29); Chloride 99 mmol/L (96-108); Creatinine Clr Calc Pharmacy 132.6; Estimated Glomerular Filt Rate > 60; Glucose Random 135 mg/dL (60-115); Potassium 3.6 mmol/L (3.3-5.1); Sodium 142 mmol/L (135-145)
[2021-06-04] MEDS: Spironolactone 25 MG TABLET PO (08:37)
[2021-06-04] MEDS: 0.9 % Sodium Chloride Flush 3 ML SYRINGE IVFLUSH ×3 (08:37→23:32)
[2021-06-04] MEDS: Valsartan 80 MG TABLET PO (08:37)
[2021-06-04] MEDS: gemfibroziL 600 MG TABLET PO ×2 (08:37→20:53)
[2021-06-04] MEDS: Multivitamin TABLET 1 TAB PO (08:38)
[2021-06-04] MEDS: carvediloL 6.25 MG TABLET PO ×2 (08:38→20:53)
[2021-06-04] MEDS: Rivaroxaban 20 MG TABLET PO (08:39)
[2021-06-04] MEDS: Furosemide 40 MG TABLET PO ×2 (08:39→20:53)
[2021-06-04] MEDS: HYDROmorphone HCl 2 MG TABLET PO (10:08)
[2021-06-04 11:09] LABS: Glucose, Whole Blood 140 mg/dL (60-115)
--- NOTE | 2021-06-04 11:28 | MHC.CM.PN ---
Patient has not yet been medically cleared for dc (IV Dilaudid today, IV Zosyn); home with VNA is Patient's goal and CM will follow for possible need to adjust the dc plan.
--- NOTE | 2021-06-04 11:45 | P.PNIM_ITS ---
Subjective Subjective Date of Service: 06/04/21 Interval History: Seen in f/u for recurrent abdominal wall abscess, POD for ex-lap. Has some tenderness around surgery site and still hs nausea with meals Review of Systems Gen: no fever Resp: no sob, no cough CV: no chest, no AIKEN, no leg edema GI: + n/v, no abd pain Neuro: No confusion Physical Exam Vital Signs: Vital Signs: Last Vital Signs Temp 97.6 F 06/04/21 11:26 Pulse 96 06/04/21 11:26 Resp 18 06/04/21 11:26 BP 130/75 06/04/21 11:26 Pulse Ox 96 06/04/21 11:26 Body Mass Index 27.7 Const: Other: Constitutional Awake and Alert, No apparent distress Neck Supple, No lymphadenopathy Cardiovascular RRR, No M/R/G, S1 S2, No S3 S4, No pedal edema Respiratory Lungs clear, No respiratory distress Gastrointestinal Non tender, surgical wound dressing in place, SHY drain is in place Skin No rash Neurological Alert & oriented x3 Psychological Appropriate affect Objective Data Current Medications Generic Name Dose Route Start Last Admin Trade Name Freq PRN Reason Stop Dose Admin Carvedilol 6.25 mg 05/26/21 21:00 06/04/21 08:38 Carvedilol 6.25 Mg Tablet PO 6.25 mg BID KANCHAN Administration Protocol Furosemide 40 mg 05/26/21 21:00 06/04/21 08:39 Furosemide 40 Mg Tablet PO 40 mg BID KANCHAN Administration Protocol Gemfibrozil 600 mg 05/26/21 21:00 06/04/21 08:37 Gemfibrozil 600 Mg Tablet PO 600 mg BID KANCHAN Administration Hydromorphone HCl 0.5 mg 05/29/21 15:08 06/04/21 05:34 Hydromorphone Hcl 0.5 Mg/0.5 Ml Syringe IVPUSH 0.5 mg Q4H PRN Administration Pain, Severe (Pain Scale 7-10) Hydromorphone HCl 2 mg 05/29/21 15:08 06/04/21 10:08 Hydromorphone Hcl 2 Mg Tablet PO 2 mg Q4H PRN Administration Pain, Moderate (Pain Scale 4-6 Piperacillin Sod/Tazobactam 50 mls @ 100 mls/hr 05/26/21 18:00 06/04/21 06:29 Sod 3.375 gm/ Sodium Chloride IV Infused Q6H KANCHAN Infusion Insulin Human Lispro 0 unit 05/27/21 11:30 06/04/21 11:42 Insulin Lispro 100 Unit/Ml 3 Ml Vial SUBCUT Not Given QIDACHS [facility] Protocol Multivitamins/Vitamin C 1 tab 05/27/21 09:00 06/04/21 08:38 Multivitamin Tablet PO 1 tab DAILY KANCHAN Administration Ondansetron HCl 4 mg 05/27/21 11:16 06/02/21 08:54 Ondansetron Hcl 4 Mg/2 Ml Vial IVPUSH 4 mg Q8H PRN Administration Nausea and Vomiting Pharmacy Consult 1 each 05/26/21 12:20 Consult Rx Perform Med Rec MISCELLANE ONCE PRN Consult order Rivaroxaban 20 mg 06/03/21 09:00 06/04/21 08:39 Rivaroxaban 20 Mg Tablet PO 20 mg DAILY KANCHAN Administration Sodium Chloride 3 ml 05/27/21 00:00 06/04/21 08:37 0.9 % Sodium Chloride Flush 3 Ml Syringe IVFLUSH 3 ml QSHIFT KANCHAN Administration Spironolactone 25 mg 05/27/21 09:00 06/04/21 08:37 Spironolactone 25 Mg Tablet PO 25 mg DAILY KANCHAN Administration Protocol Trazodone HCl 50 mg 05/26/21 21:00 06/03/21 22:59 Trazodone Hcl 50 Mg Tablet PO 50 mg BEDTIME KANCHAN Administration Valsartan 80 mg 05/27/21 09:00 06/04/21 08:37 Valsartan 80 Mg Tablet PO 80 mg DAILY KANCHAN Administration Protocol Zolpidem Tartrate 5 mg 05/26/21 21:00 06/03/21 22:59 Zolpidem Tartrate 5 Mg Tablet PO 5 mg BEDTIME KANCHAN Administration Labs CBC & Chem 7: 06/04/21 06:16 06/04/21 06:16 Labs: Laboratory Results - last 24 hr 06/03/21 06/03/21 06/04/21 16:01 19:59 06:16 WBC 12.2 H RBC 3.78 L Hgb 10.5 L Hct 33.7 L MCV 89.2 MCH 27.8 MCHC 31.2 RDW 16.9 H Plt Count 341 MPV 9.6 Immature Gran % (Auto) 1.0 H Neut % (Auto) 83.7 H Lymph % (Auto) 7.5 L [place] % (Auto) 6.4 Eos % (Auto) 1.2 Baso % (Auto) 0.2 Lymph # (Auto) 0.9 L [place] # (Auto) 0.8 Eos # (Auto) 0.2 Baso # (Auto) 0.0 Abs Immat Gran (auto) 0.12 H Absolute Neuts (auto) 10.2 H Absolute Nucleated RBC 0.000 Nucleated RBC % (auto) 0.0 Sodium Potassium Chloride Carbon Dioxide Anion Gap BUN Creatinine Estim Creat Clear Calc Estimated GFR POC Glucose 126 H 149 H Random Glucose Calcium 06/04/21 06/04/21 06/04/21 06:16 06:54 10:53 WBC RBC Hgb Hct MCV MCH MCHC RDW Plt Count MPV Immature Gran % (Auto) Neut % (Auto) Lymph % (Auto) [place] % (Auto) Eos % (Auto) Baso % (Auto) Lymph # (Auto) [place] # (Auto) Eos # (Auto) Baso # (Auto) Abs Immat Gran (auto) Absolute Neuts (auto) Absolute Nucleated RBC Nucleated RBC % (auto) Sodium 142 Potassium 3.6 Chloride 99 Carbon Dioxide 35 H Anion Gap 12 BUN 7 L Creatinine 0.69 Estim Creat Clear Calc 132.6 Estimated GFR > 60 POC Glucose 125 H 140 H Random Glucose 135 H Calcium 8.0 L Quality Stroke Does the patient have a stroke diagnosis?: No VTE Prior VTE?: No VTE Risk Level:: Medical - moderate - high VTE Device Contraindication: N/A - Device Ordered VTE Drug Contraindication: N/A - Med Ordered Assessment and Plan (1) Diarrhea: Status: Acute (2) Hypokalemia: Status: Acute (3) Diabetes mellitus: Status: Acute (4) Abdominal wall abscess: Status: Acute (5) Cardiomyopathy: Status: Acute (6) CHF (congestive heart failure): Status: Acute Assessment and Plan: 61 year old male with DM, AFIB, CAD, CAD, CM with combined systolic and diastolic Heart failure here with with recurrent abdominal wall abscess Abdominal wall abscess and retroperitoneal abscess Persistent mild nausea, less diarrhea, no significant abdominal pain, had IR drain put in 05/28 but fell out next day underwent Ex-lap 05/29 s/p washout of abdominal wall abscess Continue Zosyn day 9, elevated WBC trending down, patient afebrile, no worsening abdominal, lasts C diff serology neg on 05/28 further treatment plan as per surgery, diet changed to regular since patient refused to take diabetic diet Diarrhea resolving WBC trending down, PRN Imodium HypOkalemia--likely due to diuretics, potassium normalized , Oral replacement PRN if not then IV Chronic combined systolic and diastolic heart failure--presently compensated continue Lasix, Aldactne, Coreg and Valsarta. Avoid fluid Diabetes-- blood sugars stable continue, SSI, and regular diet Paroxysmal atrial fibrillation--rate controlled, continue Coreg, Amiodarone, and Xarelto DVT: Xarelto restarted
--- NOTE | 2021-06-04 14:52 | P.PNGS_ITS ---
Subjective Subjective Date of Service: 06/04/21 Interval history: No new complaints this morning. He continues to have some nausea but is able to eat. He tried to ambulate with his prosthesis but noted the prosthetic is not fitting well due to some swelling. He is keeping his sleeve on the left lower extremity to reduce the edema. He denies significant abdominal pain at this time. Physical Exam Vital Signs: Vital Signs: Last Vital Signs Temp 97.6 F 06/04/21 11:26 Pulse 96 06/04/21 13:13 Resp 18 06/04/21 11:26 BP 130/75 06/04/21 13:13 Pulse Ox 96 06/04/21 13:13 Body Mass Index 27.7 Const: General: no acute distress, alert and awake Resp: Other: Breathing comfortably on room air, no respiratory distress GI: Other: Persistent discharge from the lateral wound on the right side with mucopurulent discharge. Minimal discharge from the anterior abdominal incision in the right lower quadrant. SHY is producing less discharge currently. No significant erythema noted on the abdominal wall. Skin: Other: No erythema Progress Note: A&P Assessment and plan (1) Abdominal wall abscess: Status: Acute Assessment and Plan: Will continue local wound care, physical therapy, IV antibiotics. Anticipate discharge early next week. Fall Risk Details Current Medications: Current Medications Generic Name Dose Route Start Last Admin Trade Name Silvianoq PRN Reason Stop Dose Admin Carvedilol 6.25 mg 05/26/21 21:00 06/04/21 08:38 Carvedilol 6.25 Mg Tablet PO 6.25 mg BID KANCHAN Administration Protocol Furosemide 40 mg 05/26/21 21:00 06/04/21 08:39 Furosemide 40 Mg Tablet PO 40 mg BID KANCHAN Administration Protocol Gemfibrozil 600 mg 05/26/21 21:00 06/04/21 08:37 Gemfibrozil 600 Mg Tablet PO 600 mg BID KANCHAN Administration Hydromorphone HCl 0.5 mg 05/29/21 15:08 06/04/21 05:34 Hydromorphone Hcl 0.5 Mg/0.5 Ml Syringe IVPUSH 0.5 mg Q4H PRN Administration Pain, Severe (Pain Scale 7-10) Hydromorphone HCl 2 mg 05/29/21 15:08 06/04/21 10:08 Hydromorphone Hcl 2 Mg Tablet PO 2 mg Q4H PRN Administration Pain, Moderate (Pain Scale 4-6 Piperacillin Sod/Tazobactam 50 mls @ 100 mls/hr 05/26/21 18:00 06/04/21 13:06 Sod 3.375 gm/ Sodium Chloride IV Infused Q6H KANCHAN Infusion Insulin Human Lispro 0 unit 05/27/21 11:30 06/04/21 11:42 Insulin Lispro 100 Unit/Ml 3 Ml Vial SUBCUT Not Given QIDACHS [facility] Protocol Multivitamins/Vitamin C 1 tab 05/27/21 09:00 06/04/21 08:38 Multivitamin Tablet PO 1 tab DAILY KANCHAN Administration Ondansetron HCl 4 mg 05/27/21 11:16 06/02/21 08:54 Ondansetron Hcl 4 Mg/2 Ml Vial IVPUSH 4 mg Q8H PRN Administration Nausea and Vomiting Pharmacy Consult 1 each 05/26/21 12:20 Consult Rx Perform Med Rec MISCELLANE ONCE PRN Consult order Rivaroxaban 20 mg 06/03/21 09:00 06/04/21 08:39 Rivaroxaban 20 Mg Tablet PO 20 mg DAILY KANCHAN Administration Sodium Chloride 3 ml 05/27/21 00:00 06/04/21 08:37 0.9 % Sodium Chloride Flush 3 Ml Syringe IVFLUSH 3 ml QSHIFT KANCHAN Administration Spironolactone 25 mg 05/27/21 09:00 06/04/21 08:37 Spironolactone 25 Mg Tablet PO 25 mg DAILY KANCHAN Administration Protocol Trazodone HCl 50 mg 05/26/21 21:00 06/03/21 22:59 Trazodone Hcl 50 Mg Tablet PO 50 mg BEDTIME KANCHAN Administration Valsartan 80 mg 05/27/21 09:00 06/04/21 08:37 Valsartan 80 Mg Tablet PO 80 mg DAILY KANCHAN Administration Protocol Zolpidem Tartrate 5 mg 05/26/21 21:00 06/03/21 22:59 Zolpidem Tartrate 5 Mg Tablet PO 5 mg BEDTIME KANCHAN Administration Time Spent With Patient Time: Total time spent is greater than 50% in coordination of care (as documented) at patient's floor/unit and/or counseling patient: Time with patient: 15 - 24 minutes Procedures Date of Service Date of Service: 06/04/21 Quality Stroke Does the patient have a stroke diagnosis?: No VTE Prior VTE?: No VTE Risk Level:: Medical - moderate - high VTE Device Contraindication: N/A - Device Ordered VTE Drug Contraindication: N/A - Med Ordered
[2021-06-04 16:22] LABS: Glucose, Whole Blood 109 mg/dL (60-115)
[2021-06-04 19:43] LABS: Glucose, Whole Blood 128 mg/dL (60-115)
[2021-06-04] MEDS: Zolpidem Tartrate 5 MG TABLET PO (20:53)
[2021-06-04] MEDS: traZODone HCL 50 MG TABLET PO (20:53)
[2021-06-05] VITALS (10 sets, daily range): BP systolic 111–137; BP diastolic 54–74; PULSE 75–95; RESP 18–20; TEMP 36.1–36.6; O2SAT 91–96
[2021-06-05] MEDS: HYDROmorphone HCl 0.5 MG/0.5 ML SYRINGE IVPUSH ×5 (03:45→22:24)
[2021-06-05] MEDS: Piperacillin Sodium/Tazobactam 3.375 GM in 0.9 % Sodium Chloride 50 ML IV ×4 (05:11→22:24)
[2021-06-05 07:12] LABS: Glucose, Whole Blood 120 mg/dL (60-115)
[2021-06-05] MEDS: gemfibroziL 600 MG TABLET PO ×2 (08:59→19:54)
[2021-06-05] MEDS: 0.9 % Sodium Chloride Flush 3 ML SYRINGE IVFLUSH ×3 (08:59→19:55)
[2021-06-05] MEDS: Furosemide 40 MG TABLET PO ×2 (09:00→19:54)
[2021-06-05] MEDS: Rivaroxaban 20 MG TABLET PO (09:00)
[2021-06-05] MEDS: Multivitamin TABLET 1 TAB PO (09:00)
[2021-06-05] MEDS: Spironolactone 25 MG TABLET PO (09:00)
[2021-06-05] MEDS: carvediloL 6.25 MG TABLET PO ×2 (09:01→19:55)
[2021-06-05] MEDS: Valsartan 80 MG TABLET PO (09:02)
[2021-06-05 11:17] LABS: Glucose, Whole Blood 106 mg/dL (60-115)
--- NOTE | 2021-06-05 11:41 | P.PNIM_ITS ---
Subjective Subjective Date of Service: 06/05/21 Interval History: Seen in f/u for recurrent abdominal wall abscess, POD 7 for ex-lap, making slow progress Review of Systems Gen: no fever Resp: no sob, no cough CV: no chest, no AIKEN, no leg edema GI: + n/v, no abd pain Neuro: No confusion Physical Exam Vital Signs: Vital Signs: Last Vital Signs Temp 97.0 F 06/05/21 11:33 Pulse 77 06/05/21 11:33 Resp 20 06/05/21 11:33 BP 137/73 06/05/21 11:33 Pulse Ox 96 06/05/21 11:33 Body Mass Index 27.7 Const: Other: Constitutional Awake and Alert, No apparent distress Neck Supple, No lymphadenopathy Cardiovascular RRR, No M/R/G, S1 S2, No S3 S4, No pedal edema Respiratory Lungs clear, No respiratory distress Gastrointestinal Non tender, surgical wound dressing in place, SHY drain is in place Skin No rash Neurological Alert & oriented x3 Psychological Appropriate affect Objective Data Current Medications Generic Name Dose Route Start Last Admin Trade Name Gualberto PRN Reason Stop Dose Admin Carvedilol 6.25 mg 05/26/21 21:00 06/05/21 09:01 Carvedilol 6.25 Mg Tablet PO 6.25 mg BID KANCHAN Administration Protocol Furosemide 40 mg 05/26/21 21:00 06/05/21 09:00 Furosemide 40 Mg Tablet PO 40 mg BID KANCHAN Administration Protocol Gemfibrozil 600 mg 05/26/21 21:00 06/05/21 08:59 Gemfibrozil 600 Mg Tablet PO 600 mg BID KANCHAN Administration Hydromorphone HCl 0.5 mg 05/29/21 15:08 06/05/21 09:02 Hydromorphone Hcl 0.5 Mg/0.5 Ml Syringe IVPUSH 0.5 mg Q4H PRN Administration Pain, Severe (Pain Scale 7-10) Hydromorphone HCl 2 mg 05/29/21 15:08 06/04/21 10:08 Hydromorphone Hcl 2 Mg Tablet PO 2 mg Q4H PRN Administration Pain, Moderate (Pain Scale 4-6 Piperacillin Sod/Tazobactam 50 mls @ 100 mls/hr 05/26/21 18:00 06/05/21 05:43 Sod 3.375 gm/ Sodium Chloride IV Infused Q6H KANCHAN Infusion Insulin Human Lispro 0 unit 05/27/21 11:30 06/05/21 08:53 Insulin Lispro 100 Unit/Ml 3 Ml Vial SUBCUT Not Given QIDACHS [facility] Protocol Multivitamins/Vitamin C 1 tab 05/27/21 09:00 06/05/21 09:00 Multivitamin Tablet PO 1 tab DAILY KANCHAN Administration Ondansetron HCl 4 mg 05/27/21 11:16 06/02/21 08:54 Ondansetron Hcl 4 Mg/2 Ml Vial IVPUSH 4 mg Q8H PRN Administration Nausea and Vomiting Pharmacy Consult 1 each 05/26/21 12:20 Consult Rx Perform Med Rec MISCELLANE ONCE PRN Consult order Rivaroxaban 20 mg 06/03/21 09:00 06/05/21 09:00 Rivaroxaban 20 Mg Tablet PO 20 mg DAILY KANCHAN Administration Sodium Chloride 3 ml 05/27/21 00:00 06/05/21 08:59 0.9 % Sodium Chloride Flush 3 Ml Syringe IVFLUSH 3 ml QSHIFT KANCHAN Administration Spironolactone 25 mg 05/27/21 09:00 06/05/21 09:00 Spironolactone 25 Mg Tablet PO 25 mg DAILY KANCHAN Administration Protocol Trazodone HCl 50 mg 05/26/21 21:00 06/04/21 20:53 Trazodone Hcl 50 Mg Tablet PO 50 mg BEDTIME KANCHAN Administration Valsartan 80 mg 05/27/21 09:00 06/05/21 09:02 Valsartan 80 Mg Tablet PO 80 mg DAILY KANCHAN Administration Protocol Zolpidem Tartrate 5 mg 05/26/21 21:00 06/04/21 20:53 Zolpidem Tartrate 5 Mg Tablet PO 5 mg BEDTIME KANCHAN Administration Labs CBC & Chem 7: 06/04/21 06:16 06/04/21 06:16 Labs: Laboratory Results - last 24 hr 06/04/21 06/04/21 06/05/21 16:17 19:40 07:07 POC Glucose 109 128 H 120 H 06/05/21 11:12 POC Glucose 106 Quality Stroke Does the patient have a stroke diagnosis?: No VTE Prior VTE?: No VTE Risk Level:: Medical - moderate - high VTE Device Contraindication: N/A - Device Ordered VTE Drug Contraindication: N/A - Med Ordered Assessment and Plan (1) Diarrhea: Status: Acute (2) Hypokalemia: Status: Acute (3) Diabetes mellitus: Status: Acute (4) Abdominal wall abscess: Status: Acute (5) Cardiomyopathy: Status: Acute (6) CHF (congestive heart failure): Status: Acute Assessment and Plan: 61 year old male with DM, AFIB, CAD, CAD, CM with combined systolic and diastolic Heart failure here with with recurrent abdominal wall abscess Abdominal wall abscess and retroperitoneal abscess Persistent mild nausea, less diarrhea, no significant abdominal pain, had IR drain put in 05/28 but fell out next day underwent Ex-lap 05/29 s/p washout of abdominal wall abscess Continue Zosyn day 10, elevated WBC trending down, patient afebrile, no worsening abdominal, lasts C diff serology neg on 05/28 further treatment plan as per surgery, repeat CT today Diarrhea resolved WBC trending down, PRN Imodium HypOkalemia--corrected Chronic combined systolic and diastolic heart failure--presently compensated continue Lasix, Aldactne, Coreg and Valsarta. Avoid fluid Diabetes-- blood sugars stable continue, SSI, and regular diet Paroxysmal atrial fibrillation--rate controlled, continue Coreg, Amiodarone, and Xarelto Can come off tele DVT: Xarelto restarted
--- NOTE | 2021-06-05 12:28 | P.PNGS_ITS ---
Subjective Subjective Date of Service: 06/05/21 Interval history: Some mild nausea this morning but no fever or chills. His appetite waxes and wanes. Denies significant abdominal pain. Feels his left leg stump has less edema this morning. Would like to try to ambulate later today. Physical Exam Vital Signs: Vital Signs: Last Vital Signs Temp 97.0 F 06/05/21 11:33 Pulse 77 06/05/21 11:33 Resp 20 06/05/21 11:33 BP 137/73 06/05/21 11:33 Pulse Ox 96 06/05/21 11:33 Body Mass Index 27.7 Const: General: no acute distress Nutritional Appearance: cachectic Orientation/consciousness: patient oriented x3 Resp: Effort & Inspection: normal respiratory effort GI: Other: Dressings changed to abdominal wall. Anterior wound is dry and healing. SHY has a small amount of serous fluid. Flank wound continues to drain a mucopurulent discharge especially in the lateral portion. Clean dressings applied. Neuro: General: patient oriented x3 Progress Note: A&P Assessment and plan (1) Abdominal wall abscess: Status: Acute Assessment and Plan: Overall the wounds appear much improved with decreased drainage. I would like to reassess the deep abscess with a CT of the abdomen and pelvis. Patient is in agreement therefore this will be requested for today. I will keep the SHY in for now. Continue with local wound care and IV antibiotics. Fall Risk Details Current Medications: Current Medications Generic Name Dose Route Start Last Admin Trade Name Freq PRN Reason Stop Dose Admin Carvedilol 6.25 mg 05/26/21 21:00 06/05/21 09:01 Carvedilol 6.25 Mg Tablet PO 6.25 mg BID KANCHAN Administration Protocol Furosemide 40 mg 05/26/21 21:00 06/05/21 09:00 Furosemide 40 Mg Tablet PO 40 mg BID KANCHAN Administration Protocol Gemfibrozil 600 mg 05/26/21 21:00 06/05/21 08:59 Gemfibrozil 600 Mg Tablet PO 600 mg BID KANCHAN Administration Hydromorphone HCl 0.5 mg 05/29/21 15:08 06/05/21 09:02 Hydromorphone Hcl 0.5 Mg/0.5 Ml Syringe IVPUSH 0.5 mg Q4H PRN Administration Pain, Severe (Pain Scale 7-10) Hydromorphone HCl 2 mg 05/29/21 15:08 06/04/21 10:08 Hydromorphone Hcl 2 Mg Tablet PO 2 mg Q4H PRN Administration Pain, Moderate (Pain Scale 4-6 Piperacillin Sod/Tazobactam 50 mls @ 100 mls/hr 05/26/21 18:00 06/05/21 05:43 Sod 3.375 gm/ Sodium Chloride IV Infused Q6H KANCHAN Infusion Insulin Human Lispro 0 unit 05/27/21 11:30 06/05/21 08:53 Insulin Lispro 100 Unit/Ml 3 Ml Vial SUBCUT Not Given QIDACHS [facility] Protocol Multivitamins/Vitamin C 1 tab 05/27/21 09:00 06/05/21 09:00 Multivitamin Tablet PO 1 tab DAILY KANCHAN Administration Ondansetron HCl 4 mg 05/27/21 11:16 06/02/21 08:54 Ondansetron Hcl 4 Mg/2 Ml Vial IVPUSH 4 mg Q8H PRN Administration Nausea and Vomiting Pharmacy Consult 1 each 05/26/21 12:20 Consult Rx Perform Med Rec MISCELLANE ONCE PRN Consult order Rivaroxaban 20 mg 06/03/21 09:00 06/05/21 09:00 Rivaroxaban 20 Mg Tablet PO 20 mg DAILY KANCHAN Administration Sodium Chloride 3 ml 05/27/21 00:00 06/05/21 08:59 0.9 % Sodium Chloride Flush 3 Ml Syringe IVFLUSH 3 ml QSHIFT KANCHAN Administration Spironolactone 25 mg 05/27/21 09:00 06/05/21 09:00 Spironolactone 25 Mg Tablet PO 25 mg DAILY KANCHAN Administration Protocol Trazodone HCl 50 mg 05/26/21 21:00 06/04/21 20:53 Trazodone Hcl 50 Mg Tablet PO 50 mg BEDTIME KANCHAN Administration Valsartan 80 mg 05/27/21 09:00 06/05/21 09:02 Valsartan 80 Mg Tablet PO 80 mg DAILY KANCHAN Administration Protocol Zolpidem Tartrate 5 mg 05/26/21 21:00 06/04/21 20:53 Zolpidem Tartrate 5 Mg Tablet PO 5 mg BEDTIME KANCHAN Administration Time Spent With Patient Time: Total time spent is greater than 50% in coordination of care (as documented) at patient's floor/unit and/or counseling patient: Time with patient: 15 - 24 minutes Procedures Date of Service Date of Service: 06/05/21 Quality Stroke Does the patient have a stroke diagnosis?: No VTE Prior VTE?: No VTE Risk Level:: Medical - moderate - high VTE Device Contraindication: N/A - Device Ordered VTE Drug Contraindication: N/A - Med Ordered
[2021-06-05 16:21] LABS: Glucose, Whole Blood 94 mg/dL (60-115)
[2021-06-05 19:44] LABS: Glucose, Whole Blood 108 mg/dL (60-115)
[2021-06-05] MEDS: traZODone HCL 50 MG TABLET PO (19:54)
[2021-06-05] MEDS: Zolpidem Tartrate 5 MG TABLET PO (19:54)
[2021-06-06] VITALS (12 sets, daily range): BP systolic 130–147; BP diastolic 63–77; PULSE 75–106; RESP 15–20; TEMP 36.1–36.7; O2SAT 92–96
[2021-06-06] MEDS: HYDROmorphone HCl 0.5 MG/0.5 ML SYRINGE IVPUSH ×5 (03:31→23:58)
[2021-06-06] MEDS: Piperacillin Sodium/Tazobactam 3.375 GM in 0.9 % Sodium Chloride 50 ML IV ×4 (05:02→23:59)
[2021-06-06 07:21] LABS: MANUAL DIFF FLAG NO
[2021-06-06 07:28] LABS: Basophils Percent Auto 0.4 % (0-2); Eosinophils Absolute Auto 0.3 X10*3/uL (0.0-0.4); Eosinophils Percent Auto 2.4 % (0-4); Hematocrit 33.6 % (42-52); Hemoglobin 10.4 g/dl (14.0-18.0); Imm Gran Abs Auto 0.07 X10*3/uL (0.00-0.03); Imm Gran Pct Auto 0.6 % (0.0-0.4); Lymphocytes Percent Auto 8.8 % (20-40); Mean Corpuscular Hemoglobin 27.3 pg (27.0-33.0); Mean Corpuscular Volume 88.2 fL (80-98); Mean Platelet Volume 9.7 fL (9.4-12.4); Monocytes Absolute Auto 0.9 X10*3/uL (0.1-1.2); Monocytes Percent Auto 7.8 % (2-11); Neutrophils Absolute Auto 8.8 X10*3/uL (2.0-8.3); Platelet Count 323 X10*3/uL (160-400); Red Blood Count 3.81 X10*6/uL (4.60-5.80); Red Cell Distribution Width 17.7 % (11.0-16.0)
[2021-06-06 07:30] LABS: Glucose, Whole Blood 110 mg/dL (60-115)
[2021-06-06 08:08] LABS: Anion Gap 12 (12-20); Blood Urea Nitrogen 6 mg/dL (9-16); Carbon Dioxide 33 mmol/L (22-29); Chloride 99 mmol/L (96-108); Creatinine Clr Calc Pharmacy 136.6; Estimated Glomerular Filt Rate > 60; Glucose Random 107 mg/dL (60-115); Potassium 3.4 mmol/L (3.3-5.1); Sodium 141 mmol/L (135-145)
--- NOTE | 2021-06-06 08:09 | PM.PNGS ---
Subjective Subjective Date of Service: 06/06/21 Interval history: Patient was able to get out of bed and ambulate with leg yesterday, he is very happy about this. Still reporting incisional pain in the right flank and waves of nausea. Physical Exam Vital Signs: Vital Signs: Last Vital Signs Temp 97.3 F 06/06/21 03:36 Pulse 75 06/06/21 03:36 Resp 18 06/06/21 03:36 BP 130/63 06/06/21 03:36 Pulse Ox 93 06/06/21 03:36 Body Mass Index 27.7 Const: General: no acute distress Nutritional Appearance: cachectic Orientation/consciousness: patient oriented x3 Limitations: no limitations Resp: Effort & Inspection: normal respiratory effort, no cough, no stridor and not tachypneic GI: Palpation (GI): Soft to palpation, Tenderness to palpation present (GI) (Right flank) and no guarding Percussion: Yes normal to percussion Auscultation: normal bowel sounds Skin: General skin exam: no rashes or lesions noted Neuro: General: patient oriented x3 Extrem: General: Yes no clubbing, cyanosis or edema Progress Note: A&P Assessment and plan (1) Abdominal wall abscess: Status: Acute Assessment and Plan: 61-year-old male with previous history of perforated appendicitis with large abscess status post drainage of abscess followed by interval ileocecal resection. Patient has had persistent abdominal wall abscess collection, now status post exploratory laparotomy with drainage of retroperitoneal and right abdominal wall abscess with washout. No apparent fistula identified. Patient now has packing in the right flank at the site of the abdominal wall abscess. There is a Bryant-Rosario drain within the retroperitoneal abscess collection. The SHY drain is draining serous fluid currently. Right flank wound is a combination of mucopurulent and bloody discharge. Continue local wound care and antibiotics. Continue physical therapy, anticipate discharge to home early next week with VNA. Fall Risk Details Current Medications: Current Medications Generic Name Dose Route Start Last Admin Trade Name Freq PRN Reason Stop Dose Admin Carvedilol 6.25 mg 05/26/21 21:00 06/05/21 19:55 Carvedilol 6.25 Mg Tablet PO 6.25 mg BID KANCHAN Administration Protocol Furosemide 40 mg 05/26/21 21:00 06/05/21 19:54 Furosemide 40 Mg Tablet PO 40 mg BID KANCHAN Administration Protocol Gemfibrozil 600 mg 05/26/21 21:00 06/05/21 19:54 Gemfibrozil 600 Mg Tablet PO 600 mg BID KANCHAN Administration Hydromorphone HCl 0.5 mg 05/29/21 15:08 06/06/21 03:31 Hydromorphone Hcl 0.5 Mg/0.5 Ml Syringe IVPUSH 0.5 mg Q4H PRN Administration Pain, Severe (Pain Scale 7-10) Hydromorphone HCl 2 mg 05/29/21 15:08 06/04/21 10:08 Hydromorphone Hcl 2 Mg Tablet PO 2 mg Q4H PRN Administration Pain, Moderate (Pain Scale 4-6 Piperacillin Sod/Tazobactam 50 mls @ 100 mls/hr 05/26/21 18:00 06/06/21 05:37 Sod 3.375 gm/ Sodium Chloride IV Infused Q6H KANCHAN Infusion Insulin Human Lispro 0 unit 05/27/21 11:30 06/06/21 07:36 Insulin Lispro 100 Unit/Ml 3 Ml Vial SUBCUT Not Given QIDACHS [facility] Protocol Multivitamins/Vitamin C 1 tab 05/27/21 09:00 06/05/21 09:00 Multivitamin Tablet PO 1 tab DAILY KANCHAN Administration Ondansetron HCl 4 mg 05/27/21 11:16 06/02/21 08:54 Ondansetron Hcl 4 Mg/2 Ml Vial IVPUSH 4 mg Q8H PRN Administration Nausea and Vomiting Pharmacy Consult 1 each 05/26/21 12:20 Consult Rx Perform Med Rec MISCELLANE ONCE PRN Consult order Rivaroxaban 20 mg 06/03/21 09:00 06/05/21 09:00 Rivaroxaban 20 Mg Tablet PO 20 mg DAILY KANCHAN Administration Sodium Chloride 3 ml 05/27/21 00:00 06/05/21 19:55 0.9 % Sodium Chloride Flush 3 Ml Syringe IVFLUSH 3 ml QSHIFT KANCHAN Administration Spironolactone 25 mg 05/27/21 09:00 06/05/21 09:00 Spironolactone 25 Mg Tablet PO 25 mg DAILY KANCHAN Administration Protocol Trazodone HCl 50 mg 05/26/21 21:00 06/05/21 19:54 Trazodone Hcl 50 Mg Tablet PO 50 mg BEDTIME KANCHAN Administration Valsartan 80 mg 05/27/21 09:00 06/05/21 09:02 Valsartan 80 Mg Tablet PO 80 mg DAILY KANCHAN Administration Protocol Zolpidem Tartrate 5 mg 05/26/21 21:00 06/05/21 19:54 Zolpidem Tartrate 5 Mg Tablet PO 5 mg BEDTIME KANCHAN Administration Time Spent With Patient Time: Total time spent is greater than 50% in coordination of care (as documented) at patient's floor/unit and/or counseling patient: Time with patient: 15 - 24 minutes Procedures Date of Service Date of Service: 06/06/21 Quality Stroke Does the patient have a stroke diagnosis?: No VTE Prior VTE?: No VTE Risk Level:: Medical - moderate - high VTE Device Contraindication: N/A - Device Ordered VTE Drug Contraindication: N/A - Med Ordered
[2021-06-06] MEDS: Valsartan 80 MG TABLET PO (09:14)
[2021-06-06] MEDS: 0.9 % Sodium Chloride Flush 3 ML SYRINGE IVFLUSH ×3 (09:14→23:59)
[2021-06-06] MEDS: Rivaroxaban 20 MG TABLET PO (09:15)
[2021-06-06] MEDS: carvediloL 6.25 MG TABLET PO ×2 (09:16→19:44)
[2021-06-06] MEDS: Spironolactone 25 MG TABLET PO (09:16)
[2021-06-06] MEDS: Multivitamin TABLET 1 TAB PO (09:16)
[2021-06-06] MEDS: Furosemide 40 MG TABLET PO ×2 (09:16→19:43)
[2021-06-06] MEDS: gemfibroziL 600 MG TABLET PO ×2 (09:16→19:43)
--- NOTE | 2021-06-06 11:12 | MHC.CM.PN ---
Patient is not yet medically cleared for dc (IV Dilaudid today/incisional pain, IV Zosin, SHY Drain). Home with VNA is the goal for dc and CM will follow for possible need to adjust the dc plan.
[2021-06-06 11:30] LABS: Glucose, Whole Blood 121 mg/dL (60-115)
--- NOTE | 2021-06-06 12:23 | P.PNIM_ITS ---
Subjective Subjective Date of Service: 06/06/21 Interval History: Seen in f/u for recurrent abdominal wall abscess, POD 8, clinically well, other than some vomitting Review of Systems Gen: no fever Resp: no sob, no cough CV: no chest, no AIKEN, no leg edema GI: + n/v, no abd pain Neuro: No confusion Physical Exam Vital Signs: Vital Signs: Last Vital Signs Temp 97.4 F 06/06/21 11:30 Pulse 83 06/06/21 11:30 Resp 18 06/06/21 11:30 BP 147/71 H 06/06/21 11:30 Pulse Ox 96 06/06/21 11:30 Body Mass Index 27.7 Const: Other: Constitutional Awake and Alert, No apparent distress Neck Supple, No lymphadenopathy Cardiovascular RRR, No M/R/G, S1 S2, No S3 S4, No pedal edema Respiratory Lungs clear, No respiratory distress Gastrointestinal Non tender, surgical wound dressing in place, SHY drain is in place Skin No rash Neurological Alert & oriented x3 Psychological Appropriate affect Objective Data Current Medications Generic Name Dose Route Start Last Admin Trade Name Silvianoq PRN Reason Stop Dose Admin Carvedilol 6.25 mg 05/26/21 21:00 06/06/21 09:16 Carvedilol 6.25 Mg Tablet PO 6.25 mg BID KANCHAN Administration Protocol Furosemide 40 mg 05/26/21 21:00 06/06/21 09:16 Furosemide 40 Mg Tablet PO 40 mg BID KANCHAN Administration Protocol Gemfibrozil 600 mg 05/26/21 21:00 06/06/21 09:16 Gemfibrozil 600 Mg Tablet PO 600 mg BID KANCHAN Administration Hydromorphone HCl 0.5 mg 05/29/21 15:08 06/06/21 09:17 Hydromorphone Hcl 0.5 Mg/0.5 Ml Syringe IVPUSH 0.5 mg Q4H PRN Administration Pain, Severe (Pain Scale 7-10) Hydromorphone HCl 2 mg 05/29/21 15:08 06/04/21 10:08 Hydromorphone Hcl 2 Mg Tablet PO 2 mg Q4H PRN Administration Pain, Moderate (Pain Scale 4-6 Piperacillin Sod/Tazobactam 50 mls @ 100 mls/hr 05/26/21 18:00 06/06/21 05:37 Sod 3.375 gm/ Sodium Chloride IV Infused Q6H KANCHAN Infusion Insulin Human Lispro 0 unit 05/27/21 11:30 06/06/21 12:20 Insulin Lispro 100 Unit/Ml 3 Ml Vial SUBCUT Not Given QIDACHS [facility] Protocol Multivitamins/Vitamin C 1 tab 05/27/21 09:00 06/06/21 09:16 Multivitamin Tablet PO 1 tab DAILY KANCHAN Administration Ondansetron HCl 4 mg 05/27/21 11:16 06/02/21 08:54 Ondansetron Hcl 4 Mg/2 Ml Vial IVPUSH 4 mg Q8H PRN Administration Nausea and Vomiting Pharmacy Consult 1 each 05/26/21 12:20 Consult Rx Perform Med Rec MISCELLANE ONCE PRN Consult order Rivaroxaban 20 mg 06/03/21 09:00 06/06/21 09:15 Rivaroxaban 20 Mg Tablet PO 20 mg DAILY KANCHAN Administration Sodium Chloride 3 ml 05/27/21 00:00 06/06/21 09:14 0.9 % Sodium Chloride Flush 3 Ml Syringe IVFLUSH 3 ml QSHIFT [facility] Administration Spironolactone 25 mg 05/27/21 09:00 06/06/21 09:16 Spironolactone 25 Mg Tablet PO 25 mg DAILY KANCHAN Administration Protocol Trazodone HCl 50 mg 05/26/21 21:00 06/05/21 19:54 Trazodone Hcl 50 Mg Tablet PO 50 mg BEDTIME KANCHAN Administration Valsartan 80 mg 05/27/21 09:00 06/06/21 09:14 Valsartan 80 Mg Tablet PO 80 mg DAILY KANCHAN Administration Protocol Zolpidem Tartrate 5 mg 05/26/21 21:00 06/05/21 19:54 Zolpidem Tartrate 5 Mg Tablet PO 5 mg BEDTIME KANCHAN Administration Labs CBC & Chem 7: 06/06/21 06:40 06/06/21 06:40 Labs: Laboratory Results - last 24 hr 06/05/21 06/05/21 06/06/21 16:14 19:41 06:40 WBC 11.0 H RBC 3.81 L Hgb 10.4 L Hct 33.6 L MCV 88.2 MCH 27.3 MCHC 31.0 RDW 17.7 H Plt Count 323 MPV 9.7 Immature Gran % (Auto) 0.6 H Neut % (Auto) 80.0 H Lymph % (Auto) 8.8 L [place] % (Auto) 7.8 Eos % (Auto) 2.4 Baso % (Auto) 0.4 Lymph # (Auto) 1.0 L [place] # (Auto) 0.9 Eos # (Auto) 0.3 Baso # (Auto) 0.0 Abs Immat Gran (auto) 0.07 H Absolute Neuts (auto) 8.8 H Absolute Nucleated RBC 0.000 Nucleated RBC % (auto) 0.0 Sodium Potassium Chloride Carbon Dioxide Anion Gap BUN Creatinine Estim Creat Clear Calc Estimated GFR POC Glucose 94 108 Random Glucose Calcium 06/06/21 06/06/21 06/06/21 06:40 07:22 11:08 WBC RBC Hgb Hct MCV MCH MCHC RDW Plt Count MPV Immature Gran % (Auto) Neut % (Auto) Lymph % (Auto) [place] % (Auto) Eos % (Auto) Baso % (Auto) Lymph # (Auto) [place] # (Auto) Eos # (Auto) Baso # (Auto) Abs Immat Gran (auto) Absolute Neuts (auto) Absolute Nucleated RBC Nucleated RBC % (auto) Sodium 141 Potassium 3.4 Chloride 99 Carbon Dioxide 33 H Anion Gap 12 BUN 6 L Creatinine 0.67 Estim Creat Clear Calc 136.6 Estimated GFR > 60 POC Glucose 110 121 H Random Glucose 107 Calcium 8.0 L Quality Stroke Does the patient have a stroke diagnosis?: No VTE Prior VTE?: No VTE Risk Level:: Medical - moderate - high VTE Device Contraindication: N/A - Device Ordered VTE Drug Contraindication: N/A - Med Ordered Assessment and Plan (1) Diarrhea: Status: Acute (2) Hypokalemia: Status: Acute (3) Diabetes mellitus: Status: Acute (4) Abdominal wall abscess: Status: Acute (5) Cardiomyopathy: Status: Acute (6) CHF (congestive heart failure): Status: Acute Assessment and Plan: 61 year old male with DM, AFIB, CAD, CAD, CM with combined systolic and diastolic Heart failure here with with recurrent abdominal wall abscess Abdominal wall abscess and retroperitoneal abscess Persistent mild nausea, less diarrhea, no significant abdominal pain, had IR drain put in 05/28 but fell out next day underwent Ex-lap 05/29 s/p washout of ab dominal wall abscess Continue Zosyn day 10, elevated WBC trending down, patient afebrile, no worseni ng abdominal, lasts C diff serology neg on 05/28 further treatment plan as per surgery, repeat CT showed no acute finding Diarrhea resolved WBC trending down, PRN Imodium HypOkalemia--corrected Chronic combined systolic and diastolic heart failure--presently compensated continue Lasix, Aldactne, Coreg and Valsarta. Avoid fluid Diabetes-- blood sugars stable continue, SSI, and regular diet Paroxysmal atrial fibrillation--rate controlled, continue Coreg, Amiodarone, and Xarelto Can come off tele DVT: Xarelto restarted
[2021-06-06 16:24] LABS: Glucose, Whole Blood 106 mg/dL (60-115)
[2021-06-06] MEDS: Loperamide HCl Oral Liquid 2 MG/15 ML LIQUID PO (19:43)
[2021-06-06] MEDS: Zolpidem Tartrate 5 MG TABLET PO (19:44)
[2021-06-06] MEDS: traZODone HCL 50 MG TABLET PO (19:45)
[2021-06-06 20:31] LABS: Glucose, Whole Blood 120 mg/dL (60-115)
[2021-06-07] VITALS (11 sets, daily range): BP systolic 105–140; BP diastolic 55–77; PULSE 71–101; RESP 15–18; TEMP 36.3–36.9; O2SAT 91–94
[2021-06-07] MEDS: HYDROmorphone HCl 0.5 MG/0.5 ML SYRINGE IVPUSH ×5 (03:45→23:20)
[2021-06-07] MEDS: Piperacillin Sodium/Tazobactam 3.375 GM in 0.9 % Sodium Chloride 50 ML IV ×4 (05:01→23:18)
[2021-06-07 07:30] LABS: Glucose, Whole Blood 100 mg/dL (60-115)
[2021-06-07] MEDS: 0.9 % Sodium Chloride Flush 3 ML SYRINGE IVFLUSH ×3 (09:25→20:21)
[2021-06-07] MEDS: Multivitamin TABLET 1 TAB PO (09:25)
[2021-06-07] MEDS: Furosemide 40 MG TABLET PO ×2 (09:26→20:20)
[2021-06-07] MEDS: gemfibroziL 600 MG TABLET PO ×2 (09:26→20:20)
[2021-06-07] MEDS: Rivaroxaban 20 MG TABLET PO (09:26)
[2021-06-07] MEDS: Loperamide HCl Oral Liquid 2 MG/15 ML LIQUID PO (09:27)
[2021-06-07] MEDS: Valsartan 80 MG TABLET PO (09:30)
[2021-06-07] MEDS: carvediloL 6.25 MG TABLET PO ×2 (09:30→20:20)
[2021-06-07] MEDS: Spironolactone 25 MG TABLET PO (09:31)
[2021-06-07 11:08] LABS: Glucose, Whole Blood 121 mg/dL (60-115)
--- NOTE | 2021-06-07 12:20 | P.PNIM_ITS ---
Subjective Subjective Date of Service: 06/07/21 Interval History: Seen in f/u for recurrent abdominal wall abscess, POD 9, better, slight nausea, no vomitting Review of Systems Gen: no fever Resp: no sob, no cough CV: no chest, no AIKEN, no leg edema GI: + n/-v, no abd pain Neuro: No confusion Physical Exam Vital Signs: Vital Signs: Last Vital Signs Temp 97.3 F 06/07/21 12:00 Pulse 71 06/07/21 12:00 Resp 18 06/07/21 12:00 BP 117/64 06/07/21 12:00 Pulse Ox 94 06/07/21 12:00 Body Mass Index 27.7 Const: Other: Constitutional Awake and Alert, No apparent distress Neck Supple, No lymphadenopathy Cardiovascular RRR, No M/R/G, S1 S2, No S3 S4, No pedal edema Respiratory Lungs clear, No respiratory distress Gastrointestinal Non tender, surgical wound dressing in place, SHY drain is in place Skin No rash Neurological Alert & oriented x3 Psychological Appropriate affect Objective Data Current Medications Generic Name Dose Route Start Last Admin Trade Name Silvianoq PRN Reason Stop Dose Admin Carvedilol 6.25 mg 05/26/21 21:00 06/07/21 09:30 Carvedilol 6.25 Mg Tablet PO 6.25 mg BID [facility] Administration Protocol Furosemide 40 mg 05/26/21 21:00 06/07/21 09:26 Furosemide 40 Mg Tablet PO 40 mg BID [facility] Administration Protocol Gemfibrozil 600 mg 05/26/21 21:00 06/07/21 09:26 Gemfibrozil 600 Mg Tablet PO 600 mg BID [facility] Administration Hydromorphone HCl 0.5 mg 05/29/21 15:08 06/07/21 09:26 Hydromorphone Hcl 0.5 Mg/0.5 Ml Syringe IVPUSH 0.5 mg Q4H PRN Administration Pain, Severe (Pain Scale 7-10) Hydromorphone HCl 2 mg 05/29/21 15:08 06/04/21 10:08 Hydromorphone Hcl 2 Mg Tablet PO 2 mg Q4H PRN Administration Pain, Moderate (Pain Scale 4-6 Piperacillin Sod/Tazobactam 50 mls @ 100 mls/hr 05/26/21 18:00 06/07/21 11:47 Sod 3.375 gm/ Sodium Chloride IV 100 mls/hr Q6H [facility] Administration Insulin Human Lispro 0 unit 05/27/21 11:30 06/07/21 11:13 Insulin Lispro 100 Unit/Ml 3 Ml Vial SUBCUT Not Given QIDACHS [facility] Protocol Loperamide HCl 2 mg 06/06/21 18:10 06/07/21 09:27 Loperamide Hcl Oral Liquid 2 Mg/15 Ml Liquid PO 2 mg Q6H PRN Administration Diarrhea Multivitamins/Vitamin C 1 tab 05/27/21 09:00 06/07/21 09:25 Multivitamin Tablet PO 1 tab DAILY [facility] Administration Ondansetron HCl 4 mg 05/27/21 11:16 06/02/21 08:54 Ondansetron Hcl 4 Mg/2 Ml Vial IVPUSH 4 mg Q8H PRN Administration Nausea and Vomiting Pharmacy Consult 1 each 05/26/21 12:20 Consult Rx Perform Med Rec MISCELLANE ONCE PRN Consult order Rivaroxaban 20 mg 06/03/21 09:00 06/07/21 09:26 Rivaroxaban 20 Mg Tablet PO 20 mg DAILY [facility] Administration Sodium Chloride 3 ml 05/27/21 00:00 06/07/21 09:25 0.9 % Sodium Chloride Flush 3 Ml Syringe IVFLUSH 3 ml QSHIFT [facility] Administration Spironolactone 25 mg 05/27/21 09:00 06/07/21 09:31 Spironolactone 25 Mg Tablet PO 25 mg DAILY [facility] Administration Protocol Trazodone HCl 50 mg 05/26/21 21:00 06/06/21 19:45 Trazodone Hcl 50 Mg Tablet PO 50 mg BEDTIME [facility] Administration Valsartan 80 mg 05/27/21 09:00 06/07/21 09:30 Valsartan 80 Mg Tablet PO 80 mg DAILY [facility] Administration Protocol Zolpidem Tartrate 5 mg 05/26/21 21:00 06/06/21 19:44 Zolpidem Tartrate 5 Mg Tablet PO 5 mg BEDTIME [facility] Administration Labs CBC & Chem 7: 06/06/21 06:40 06/06/21 06:40 Labs: Laboratory Results - last 24 hr 06/06/21 06/06/21 06/07/21 16:20 20:28 07:15 POC Glucose 106 120 H 100 06/07/21 11:05 POC Glucose 121 H Quality Stroke Does the patient have a stroke diagnosis?: No VTE Prior VTE?: No VTE Risk Level:: Medical - moderate - high VTE Device Contraindication: N/A - Device Ordered VTE Drug Contraindication: N/A - Med Ordered Assessment and Plan (1) Diarrhea: Status: Acute (2) Hypokalemia: Status: Acute (3) Diabetes mellitus: Status: Acute (4) Abdominal wall abscess: Status: Acute (5) Cardiomyopathy: Status: Acute (6) CHF (congestive heart failure): Status: Acute Assessment and Plan: 61 year old male with DM, AFIB, CAD, CAD, CM with combined systolic and trinh tolic Heart failure here with with recurrent abdominal wall abscess Abdominal wall abscess and retroperitoneal abscess - had IR drain put in 05/28 but fell out next day -underwent Ex-lap 05/29 s/p washout of abdominal wall abscess Continue Zosyn day 11, elevated WBC trending down, patient afebrile, lasts C diff serology neg on 05/28 -repeat CT 06/05 showed improvment -further treatment plan as per surgery Diarrhea--imodium PRN, repeat C dif HypOkalemia--corrected Chronic combined systolic and diastolic heart failure--presently compensated continue Lasix, Aldactne, Coreg and Valsarta. Avoid fluid Diabetes-- blood sugars stable continue, SSI, and regular diet Paroxysmal atrial fibrillation--rate controlled, continue Coreg, Amiodarone, and Xarelto Can come off tele DVT: Xarelto Check labs on Wednesday
--- NOTE | 2021-06-07 14:49 | PM.PNGS ---
Progress Note: A&P Assessment and plan (1) Abdominal wall abscess: Status: Acute Assessment and Plan: 61 year old male with abdo wall abscess - s/p drainage and debridement of cavity - pt hemodynamically stable and feeling ok. neuro - pain ok, upbeat abdo- naa with still purulent type moderate material. cont with drainage and recording output the other area laterally i packed with betadine gauze and will do daily cont with iv antibx cont to encourage to eat, protein to increase wound healing ambulation and working to increase strength with PT Fall Risk Details Current Medications: Current Medications Generic Name Dose Route Start Last Admin Trade Name Freq PRN Reason Stop Dose Admin Carvedilol 6.25 mg 05/26/21 21:00 06/07/21 09:30 Carvedilol 6.25 Mg Tablet PO 6.25 mg BID [facility] Administration Protocol Furosemide 40 mg 05/26/21 21:00 06/07/21 09:26 Furosemide 40 Mg Tablet PO 40 mg BID [facility] Administration Protocol Gemfibrozil 600 mg 05/26/21 21:00 06/07/21 09:26 Gemfibrozil 600 Mg Tablet PO 600 mg BID [facility] Administration Hydromorphone HCl 0.5 mg 05/29/21 15:08 06/07/21 14:07 Hydromorphone Hcl 0.5 Mg/0.5 Ml Syringe IVPUSH 0.5 mg Q4H PRN Administration Pain, Severe (Pain Scale 7-10) Hydromorphone HCl 2 mg 05/29/21 15:08 06/04/21 10:08 Hydromorphone Hcl 2 Mg Tablet PO 2 mg Q4H PRN Administration Pain, Moderate (Pain Scale 4-6 Piperacillin Sod/Tazobactam 50 mls @ 100 mls/hr 05/26/21 18:00 06/07/21 12:35 Sod 3.375 gm/ Sodium Chloride IV Infused Q6H [facility] Infusion Insulin Human Lispro 0 unit 05/27/21 11:30 06/07/21 11:13 Insulin Lispro 100 Unit/Ml 3 Ml Vial SUBCUT Not Given QIDACHS [facility] Protocol Loperamide HCl 2 mg 06/06/21 18:10 06/07/21 09:27 Loperamide Hcl Oral Liquid 2 Mg/15 Ml Liquid PO 2 mg Q6H PRN Administration Diarrhea Multivitamins/Vitamin C 1 tab 07/13/21 09:00 06/07/21 09:25 Multivitamin Tablet PO 1 tab DAILY [facility] Administration Ondansetron HCl 4 mg 05/27/21 11:16 06/02/21 08:54 Ondansetron Hcl 4 Mg/2 Ml Vial IVPUSH 4 mg Q8H PRN Administration Nausea and Vomiting Pharmacy Consult 1 each 05/26/21 12:20 Consult Rx Perform Med Rec MISCELLANE ONCE PRN Consult order Rivaroxaban 20 mg 06/03/21 09:00 06/07/21 09:26 Rivaroxaban 20 Mg Tablet PO 20 mg DAILY [facility] Administration Sodium Chloride 3 ml 05/27/21 00:00 06/07/21 14:07 0.9 % Sodium Chloride Flush 3 Ml Syringe IVFLUSH 3 ml QSHIFT [facility] Administration Spironolactone 25 mg 05/27/21 09:00 06/07/21 09:31 Spironolactone 25 Mg Tablet PO 25 mg DAILY [facility] Administration Protocol Trazodone HCl 50 mg 05/26/21 21:00 06/06/21 19:45 Trazodone Hcl 50 Mg Tablet PO 50 mg BEDTIME [facility] Administration Valsartan 80 mg 05/27/21 09:00 06/07/21 09:30 Valsartan 80 Mg Tablet PO 80 mg DAILY [facility] Administration Protocol Zolpidem Tartrate 5 mg 05/26/21 21:00 06/06/21 19:44 Zolpidem Tartrate 5 Mg Tablet PO 5 mg BEDTIME [facility] Administration Time Spent With Patient Time: Total time spent is greater than 50% in coordination of care (as documented) at patient's floor/unit and/or counseling patient: Time with patient: Greater than 35 minutes Subjective Subjective Date of Service: 06/07/21 Patient reports: no new complaints and feels better Interval history: not feeling very hungry but trying to eat some more and move. pt has a very peasant attitude despite his long course of these unusual abscesses- sleeping ok Physical Exam Vital Signs: Vital Signs: Last Vital Signs Temp 97.3 F 06/07/21 12:00 Pulse 71 06/07/21 12:00 Resp 18 06/07/21 12:00 BP 117/64 06/07/21 12:00 Pulse Ox 94 06/07/21 12:00 Body Mass Index 27.7 Const: General: cooperative and no acute distress GI: Inspection: Yes normal to inspection Palpation (GI): Soft to palpation and Other GI palpation findings present (soft nontender nondistended. anterior incision cleand and intact and no reji) Skin: Other: lateral incision with moderate serous drainage and air when surrounding tissue pushed on. packing strips removed and underlying soft tissue irrigated with betadine saline and repacked with betadine saline gauze no evidence of cellulitis and area not very tender the NAA drain has greenish purulent drainage coming out still Procedures Date of Service Date of Service: 06/07/21 Quality Stroke Does the patient have a stroke diagnosis?: No VTE Prior VTE?: No VTE Risk Level:: Medical - moderate - high VTE Device Contraindication: N/A - Device Ordered VTE Drug Contraindication: N/A - Med Ordered
[2021-06-07 16:41] LABS: Glucose, Whole Blood 95 mg/dL (60-115)
[2021-06-07 20:18] LABS: Glucose, Whole Blood 104 mg/dL (60-115)
[2021-06-07] MEDS: Zolpidem Tartrate 5 MG TABLET PO (20:20)
[2021-06-07] MEDS: traZODone HCL 50 MG TABLET PO (20:20)
[2021-06-08] VITALS (10 sets, daily range): BP systolic 122–142; BP diastolic 61–78; PULSE 76–105; RESP 18–20; TEMP 36.4–37.1; O2SAT 92–96
[2021-06-08] MEDS: HYDROmorphone HCl 0.5 MG/0.5 ML SYRINGE IVPUSH ×5 (03:31→20:26)
[2021-06-08] MEDS: Piperacillin Sodium/Tazobactam 3.375 GM in 0.9 % Sodium Chloride 50 ML IV ×3 (06:13→17:51)
[2021-06-08 07:59] LABS: Glucose, Whole Blood 96 mg/dL (60-115)
[2021-06-08] MEDS: 0.9 % Sodium Chloride Flush 3 ML SYRINGE IVFLUSH ×3 (08:14→20:26)
[2021-06-08] MEDS: Furosemide 40 MG TABLET PO ×2 (08:19→20:25)
[2021-06-08] MEDS: gemfibroziL 600 MG TABLET PO ×2 (08:20→20:25)
[2021-06-08] MEDS: Multivitamin TABLET 1 TAB PO (08:20)
[2021-06-08] MEDS: Spironolactone 25 MG TABLET PO (08:20)
[2021-06-08] MEDS: carvediloL 6.25 MG TABLET PO ×2 (08:20→20:25)
[2021-06-08] MEDS: Rivaroxaban 20 MG TABLET PO (08:20)
[2021-06-08] MEDS: Valsartan 80 MG TABLET PO (08:20)
[2021-06-08 11:06] LABS: Glucose, Whole Blood 114 mg/dL (60-115)
--- NOTE | 2021-06-08 11:16 | P.PNIM_ITS ---
Subjective Subjective Date of Service: 06/08/21 Interval History: Seen in f/u for recurrent abdominal wall abscess, POD 10, better, slow progress Review of Systems Gen: no fever Resp: no sob, no cough CV: no chest, no AIKEN, no leg edema GI: + n/-v, no abd pain Neuro: No confusion Physical Exam Vital Signs: Vital Signs: Last Vital Signs Temp 97.9 F 06/08/21 07:57 Pulse 77 06/08/21 08:20 Resp 18 06/08/21 08:14 BP 132/71 06/08/21 08:20 Pulse Ox 96 06/08/21 07:57 Body Mass Index 27.7 Objective Data Current Medications Generic Name Dose Route Start Last Admin Trade Name Freq PRN Reason Stop Dose Admin Carvedilol 6.25 mg 05/26/21 21:00 06/08/21 08:20 Carvedilol 6.25 Mg Tablet PO 6.25 mg BID [facility] Administration Protocol Furosemide 40 mg 05/26/21 21:00 06/08/21 08:19 Furosemide 40 Mg Tablet PO 40 mg BID [facility] Administration Protocol Gemfibrozil 600 mg 05/26/21 21:00 06/08/21 08:20 Gemfibrozil 600 Mg Tablet PO 600 mg BID [facility] Administration Hydromorphone HCl 0.5 mg 05/29/21 15:08 06/08/21 08:14 Hydromorphone Hcl 0.5 Mg/0.5 Ml Syringe IVPUSH 0.5 mg Q4H PRN Administration Pain, Severe (Pain Scale 7-10) Hydromorphone HCl 2 mg 05/29/21 15:08 06/04/21 10:08 Hydromorphone Hcl 2 Mg Tablet PO 2 mg Q4H PRN Administration Pain, Moderate (Pain Scale 4-6 Piperacillin Sod/Tazobactam 50 mls @ 100 mls/hr 05/26/21 18:00 06/08/21 06:43 Sod 3.375 gm/ Sodium Chloride IV Infused Q6H [facility] Infusion Insulin Human Lispro 0 unit 05/27/21 11:30 06/08/21 08:05 Insulin Lispro 100 Unit/Ml 3 Ml Vial SUBCUT Not Given QIDACHS [facility] Protocol Loperamide HCl 2 mg 06/06/21 18:10 06/07/21 09:27 Loperamide Hcl Oral Liquid 2 Mg/15 Ml Liquid PO 2 mg Q6H PRN Administration Diarrhea Multivitamins/Vitamin C 1 tab 05/27/21 09:00 06/08/21 08:20 Multivitamin Tablet PO 1 tab DAILY [facility] Administration Ondansetron HCl 4 mg 05/27/21 11:16 06/02/21 08:54 Ondansetron Hcl 4 Mg/2 Ml Vial IVPUSH 4 mg Q8H PRN Administration Nausea and Vomiting Pharmacy Consult 1 each 05/26/21 12:20 Consult Rx Perform Med Rec MISCELLANE ONCE PRN Consult order Rivaroxaban 20 mg 06/03/21 09:00 06/08/21 08:20 Rivaroxaban 20 Mg Tablet PO 20 mg DAILY [facility] Administration Sodium Chloride 3 ml 05/27/21 00:00 06/08/21 08:14 0.9 % Sodium Chloride Flush 3 Ml Syringe IVFLUSH 3 ml QSHIFT [facility] Administration Spironolactone 25 mg 05/27/21 09:00 06/08/21 08:20 Spironolactone 25 Mg Tablet PO 25 mg DAILY [facility] Administration Protocol Trazodone HCl 50 mg 05/26/21 21:00 06/07/21 20:20 Trazodone Hcl 50 Mg Tablet PO 50 mg BEDTIME [facility] Administration Valsartan 80 mg 05/27/21 09:00 06/08/21 08:20 Valsartan 80 Mg Tablet PO 80 mg DAILY [facility] Administration Protocol Zolpidem Tartrate 5 mg 05/26/21 21:00 06/07/21 20:20 Zolpidem Tartrate 5 Mg Tablet PO 5 mg BEDTIME [facility] Administration Labs CBC & Chem 7: 06/06/21 06:40 06/06/21 06:40 Labs: Laboratory Results - last 24 hr 06/07/21 06/07/21 06/08/21 16:37 20:10 07:55 POC Glucose 95 104 96 06/08/21 11:02 POC Glucose 114 Quality Stroke Does the patient have a stroke diagnosis?: No VTE Prior VTE?: No VTE Risk Level:: Medical - moderate - high VTE Device Contraindication: N/A - Device Ordered VTE Drug Contraindication: N/A - Med Ordered Assessment and Plan (1) Diarrhea: Status: Acute (2) Hypokalemia: Status: Acute (3) Diabetes mellitus: Status: Acute (4) Abdominal wall abscess: Status: Acute (5) Cardiomyopathy: Status: Acute (6) CHF (congestive heart failure): Status: Acute Assessment and Plan: 61 year old male with DM, AFIB, CAD, CAD, CM with combined systolic and diastolic Heart failure here with with recurrent abdominal wall abscess Abdominal wall abscess and retroperitoneal abscess - had IR drain put in 05/28 but fell out next day -underwent Ex-lap 05/29 s/p washout of abdominal wall abscess Continue Zosyn day 12, elevated WBC trending down, patient afebrile, lasts C diff serology neg on 05/28 -repeat CT 06/05 showed improvment -further treatment plan as per surgery Diarrhea--imodium PRN, repeat C dif HypOkalemia--corrected Chronic combined systolic and diastolic heart failure--presently compensated continue Lasix, Aldactne, Coreg and Valsarta. Avoid fluid Diabetes-- blood sugars stable continue, SSI, and regular diet Paroxysmal atrial fibrillation--rate controlled, continue Coreg, Amiodarone, and Xarelto Can come off tele DVT: Xarelto Check labs on Wednesday out of bed, ambulate if able, PT to work with him during the week
--- NOTE | 2021-06-08 13:59 | P.PNGS_ITS ---
Progress Note: A&P Assessment and plan (1) Abdominal wall abscess: Status: Acute Assessment and Plan: 61 year old male with perforated appy, remote, revision and recurrent right sided wall/pelvic abscess -? etiology - no obvious enterocutaneous fistula found -- pt doing well wounds looking better- yesterday and today side packing changed with betadine saline gauze and much less drainage from the openings which had nugauze before. the naa drainage is clearing up some -? role to irrigate the drain qd - will discuss with Dr Lombardo Pt understands and agrees with plan cont with medical management as per hospitalist team - increase nutrition and PT for strength training Fall Risk Details Current Medications: Current Medications Generic Name Dose Route Start Last Admin Trade Name Freq PRN Reason Stop Dose Admin Carvedilol 6.25 mg 05/26/21 21:00 06/08/21 08:20 Carvedilol 6.25 Mg Tablet PO 6.25 mg BID [facility] Administration Protocol Furosemide 40 mg 05/26/21 21:00 06/08/21 08:19 Furosemide 40 Mg Tablet PO 40 mg BID [facility] Administration Protocol Gemfibrozil 600 mg 05/26/21 21:00 06/08/21 08:20 Gemfibrozil 600 Mg Tablet PO 600 mg BID [facility] Administration Hydromorphone HCl 0.5 mg 05/29/21 15:08 06/08/21 12:37 Hydromorphone Hcl 0.5 Mg/0.5 Ml Syringe IVPUSH 0.5 mg Q4H PRN Administration Pain, Severe (Pain Scale 7-10) Hydromorphone HCl 2 mg 05/29/21 15:08 06/04/21 10:08 Hydromorphone Hcl 2 Mg Tablet PO 2 mg Q4H PRN Administration Pain, Moderate (Pain Scale 4-6 Piperacillin Sod/Tazobactam 50 mls @ 100 mls/hr 05/26/21 18:00 06/08/21 13:20 Sod 3.375 gm/ Sodium Chloride IV Infused Q6H [facility] Infusion Insulin Human Lispro 0 unit 05/27/21 11:30 06/08/21 12:20 Insulin Lispro 100 Unit/Ml 3 Ml Vial SUBCUT Not Given QIDACHS [facility] Protocol Loperamide HCl 2 mg 06/06/21 18:10 06/07/21 09:27 Loperamide Hcl Oral Liquid 2 Mg/15 Ml Liquid PO 2 mg Q6H PRN Administration Diarrhea Multivitamins/Vitamin C 1 tab 05/27/21 09:00 06/08/21 08:20 Multivitamin Tablet PO 1 tab DAILY [facility] Administration Ondansetron HCl 4 mg 05/27/21 11:16 06/02/21 08:54 Ondansetron Hcl 4 Mg/2 Ml Vial IVPUSH 4 mg Q8H PRN Administration Nausea and Vomiting Pharmacy Consult 1 each 05/26/21 12:20 Consult Rx Perform Med Rec MISCELLANE ONCE PRN Consult order Rivaroxaban 20 mg 06/03/21 09:00 06/08/21 08:20 Rivaroxaban 20 Mg Tablet PO 20 mg DAILY [facility] Administration Sodium Chloride 3 ml 05/27/21 00:00 06/08/21 08:14 0.9 % Sodium Chloride Flush 3 Ml Syringe IVFLUSH 3 ml QSHIFT [facility] Administration Spironolactone 25 mg 05/27/21 09:00 06/08/21 08:20 Spironolactone 25 Mg Tablet PO 25 mg DAILY [facility] Administration Protocol Trazodone HCl 50 mg 05/26/21 21:00 06/07/21 20:20 Trazodone Hcl 50 Mg Tablet PO 50 mg BEDTIME [facility] Administration Valsartan 80 mg 05/27/21 09:00 06/08/21 08:20 Valsartan 80 Mg Tablet PO 80 mg DAILY [facility] Administration Protocol Zolpidem Tartrate 5 mg 05/26/21 21:00 06/07/21 20:20 Zolpidem Tartrate 5 Mg Tablet PO 5 mg BEDTIME [facility] Administration Time Spent With Patient Time: Total time spent is greater than 50% in coordination of care (as documented) at patient's floor/unit and/or counseling patient: Time with patient: 25 - 35 minutes Subjective Subjective Date of Service: 06/08/21 Interval history: feels ok, trying to eat some more, no n/v for the last 2 days Physical Exam Vital Signs: Vital Signs: Last Vital Signs Temp 98.7 F 06/08/21 11:21 Pulse 78 06/08/21 11:21 Resp 18 06/08/21 12:37 BP 122/63 06/08/21 11:21 Pulse Ox 95 06/08/21 11:21 Body Mass Index 27.7 GI: Other: abdo - soft nontender nondistended lower incision looks good the lateral area - no significant drainage leak - much steam cleaner than yesterday - dressings changed and gauze just with serous material naa - still greenish purulent but 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
[2021-06-08 16:10] LABS: Glucose, Whole Blood 99 mg/dL (60-115)
[2021-06-08] MEDS: traZODone HCL 50 MG TABLET PO (20:25)
[2021-06-08 20:26] LABS: Glucose, Whole Blood 120 mg/dL (60-115)
[2021-06-08] MEDS: Zolpidem Tartrate 5 MG TABLET PO (20:40)
[2021-06-09] VITALS (11 sets, daily range): BP systolic 113–138; BP diastolic 59–72; PULSE 71–91; RESP 16–20; TEMP 36.3–36.8; O2SAT 92–97
[2021-06-09] MEDS: Piperacillin Sodium/Tazobactam 3.375 GM in 0.9 % Sodium Chloride 50 ML IV ×3 (00:02→14:11)
[2021-06-09] MEDS: HYDROmorphone HCl 0.5 MG/0.5 ML SYRINGE IVPUSH ×6 (00:02→22:34)
[2021-06-09 05:30] LABS: Hematocrit 34.3 % (42-52); Hemoglobin 10.5 g/dl (14.0-18.0); Mean Corpuscular HGB Conc 30.6 g/dl (31.0-36.0); Mean Corpuscular Hemoglobin 27.4 pg (27.0-33.0); Mean Corpuscular Volume 89.6 fL (80-98); Mean Platelet Volume 9.9 fL (9.4-12.4); Platelet Count 277 X10*3/uL (160-400); Red Blood Count 3.83 X10*6/uL (4.60-5.80); Red Cell Distribution Width 18.2 % (11.0-16.0); White Blood Count 9.8 X10*3/uL (4.8-10.8)
[2021-06-09 05:56] LABS: Anion Gap 11 (12-20); Blood Urea Nitrogen 6 mg/dL (9-16); Calcium 7.8 mg/dL (8.4-10.2); Carbon Dioxide 33 mmol/L (22-29); Chloride 100 mmol/L (96-108); Creatinine Clr Calc Pharmacy 134.6; Estimated Glomerular Filt Rate > 60; Glucose Random 132 mg/dL (60-115); Magnesium 1.8 mg/dL (1.6-2.6); Potassium 3.4 mmol/L (3.3-5.1); Sodium 141 mmol/L (135-145)
[2021-06-09 07:27] LABS: Glucose, Whole Blood 130 mg/dL (60-115)
[2021-06-09] MEDS: Valsartan 80 MG TABLET PO (09:44)
[2021-06-09] MEDS: Furosemide 40 MG TABLET PO ×2 (09:44→22:33)
[2021-06-09] MEDS: gemfibroziL 600 MG TABLET PO ×2 (09:44→22:33)
[2021-06-09] MEDS: carvediloL 6.25 MG TABLET PO ×2 (09:44→22:33)
[2021-06-09] MEDS: Rivaroxaban 20 MG TABLET PO (09:44)
[2021-06-09] MEDS: Multivitamin TABLET 1 TAB PO (09:45)
[2021-06-09] MEDS: 0.9 % Sodium Chloride Flush 3 ML SYRINGE IVFLUSH ×3 (09:45→22:34)
[2021-06-09] MEDS: Spironolactone 25 MG TABLET PO (09:45)
--- NOTE | 2021-06-09 11:16 | MHC.CM.PN ---
Patient is not yet medically cleared for dc (IV Dilaudid today, IV Zosyn, SHY Drain). PT rec STR and Patient hopes for home with VNA; CM will continue to follow for DC Planning.
[2021-06-09 11:20] LABS: Glucose, Whole Blood 121 mg/dL (60-115)
--- NOTE | 2021-06-09 13:00 | HO.PM.IMPN ---
Subjective Subjective Date of Service: 06/09/21 Interval History: Seen in f/u for recurrent abdominal wall abscess, POD 11, better, no new issues Review of Systems Gen: no fever Resp: no sob, no cough CV: no chest, no AIKEN, no leg edema GI: + n/-v, no abd pain Neuro: No confusion Physical Exam Vital Signs: Vital Signs: Last Vital Signs Temp 97.4 F 06/09/21 11:40 Pulse 75 06/09/21 11:40 Resp 19 06/09/21 11:40 BP 135/71 06/09/21 11:40 Pulse Ox 97 06/09/21 11:40 Body Mass Index 27.7 Const: Other: Constitutional Awake and Alert, No apparent distress Neck Supple, No lymphadenopathy Cardiovascular RRR, No M/R/G, S1 S2, No S3 S4, No pedal edema Respiratory Lungs clear, No respiratory distress Gastrointestinal Non tender, surgical wound dressing in place, SHY drain is in place Skin No rash Neurological Alert & oriented x3 Psychological Appropriate affect Objective Data Current Medications Generic Name Dose Route Start Last Admin Trade Name Gualberto PRN Reason Stop Dose Admin Carvedilol 6.25 mg 05/26/21 21:00 06/09/21 09:44 Carvedilol 6.25 Mg Tablet PO 6.25 mg BID [facility] Administration Protocol Furosemide 40 mg 05/26/21 21:00 06/09/21 09:44 Furosemide 40 Mg Tablet PO 40 mg BID [facility] Administration Protocol Gemfibrozil 600 mg 05/26/21 21:00 06/09/21 09:44 Gemfibrozil 600 Mg Tablet PO 600 mg BID [facility] Administration Hydromorphone HCl 0.5 mg 05/29/21 15:08 06/09/21 09:45 Hydromorphone Hcl 0.5 Mg/0.5 Ml Syringe IVPUSH 0.5 mg Q4H PRN Administration Pain, Severe (Pain Scale 7-10) Hydromorphone HCl 2 mg 05/29/21 15:08 06/04/21 10:08 Hydromorphone Hcl 2 Mg Tablet PO 2 mg Q4H PRN Administration Pain, Moderate (Pain Scale 4-6 Piperacillin Sod/Tazobactam 50 mls @ 100 mls/hr 05/26/21 18:00 06/09/21 07:00 Sod 3.375 gm/ Sodium Chloride IV Infused Q6H [facility] Infusion Insulin Human Lispro 0 unit 05/27/21 11:30 06/09/21 11:43 Insulin Lispro 100 Unit/Ml 3 Ml Vial SUBCUT Not Given QIDACHS [facility] Protocol Loperamide HCl 2 mg 06/06/21 18:10 06/07/21 09:27 Loperamide Hcl Oral Liquid 2 Mg/15 Ml Liquid PO 2 mg Q6H PRN Administration Diarrhea Multivitamins/Vitamin C 1 tab 05/27/21 09:00 06/09/21 09:45 Multivitamin Tablet PO 1 tab DAILY [facility] Administration Ondansetron HCl 4 mg 05/27/21 11:16 06/02/21 08:54 Ondansetron Hcl 4 Mg/2 Ml Vial IVPUSH 4 mg Q8H PRN Administration Nausea and Vomiting Pharmacy Consult 1 each 05/26/21 12:20 Consult Rx Perform Med Rec MISCELLANE ONCE PRN Consult order Rivaroxaban 20 mg 06/03/21 09:00 06/09/21 09:44 Rivaroxaban 20 Mg Tablet PO 20 mg DAILY [facility] Administration Sodium Chloride 3 ml 05/27/21 00:00 06/09/21 09:45 0.9 % Sodium Chloride Flush 3 Ml Syringe IVFLUSH 3 ml QSHIFT [facility] Administration Spironolactone 25 mg 05/27/21 09:00 06/09/21 09:45 Spironolactone 25 Mg Tablet PO 25 mg DAILY [facility] Administration Protocol Trazodone HCl 50 mg 05/26/21 21:00 06/08/21 20:25 Trazodone Hcl 50 Mg Tablet PO 50 mg BEDTIME [facility] Administration Valsartan 80 mg 05/27/21 09:00 06/09/21 09:44 Valsartan 80 Mg Tablet PO 80 mg DAILY [facility] Administration Protocol Zolpidem Tartrate 5 mg 05/26/21 21:00 06/08/21 20:40 Zolpidem Tartrate 5 Mg Tablet PO 5 mg BEDTIME [facility] Administration Labs CBC & Chem 7: 06/09/21 04:33 06/09/21 04:33 Labs: Laboratory Results - last 24 hr 06/08/21 06/08/21 06/09/21 16:07 20:21 04:33 WBC 9.8 RBC 3.83 L Hgb 10.5 L Hct 34.3 L MCV 89.6 MCH 27.4 MCHC 30.6 L RDW 18.2 H Plt Count 277 MPV 9.9 Absolute Nucleated RBC 0.000 Nucleated RBC % (auto) 0.0 Sodium Potassium Chloride Carbon Dioxide Anion Gap BUN Creatinine Estim Creat Clear Calc Estimated GFR POC Glucose 99 120 H Random Glucose Calcium Magnesium 06/09/21 06/09/21 06/09/21 04:33 07:14 11:10 WBC RBC Hgb Hct MCV MCH MCHC RDW Plt Count MPV Absolute Nucleated RBC Nucleated RBC % (auto) Sodium 141 Potassium 3.4 Chloride 100 Carbon Dioxide 33 H Anion Gap 11 L BUN 6 L Creatinine 0.68 Estim Creat Clear Calc 134.6 Estimated GFR > 60 POC Glucose 130 H 121 H Random Glucose 132 H Calcium 7.8 L Magnesium 1.8 Assessment and Plan (1) Diarrhea: Status: Acute (2) Hypokalemia: Status: Acute (3) Diabetes mellitus: Status: Acute (4) Abdominal wall abscess: Status: Acute (5) Cardiomyopathy: Status: Acute (6) CHF (congestive heart failure): Status: Acute Assessment and Plan: 61 year old male with DM, AFIB, CAD, CAD, CM with combined systolic and diastolic Heart failure here with with recurrent abdominal wall abscess Abdominal wall abscess and retroperitoneal abscess - had IR drain put in 05/28 but fell out next day -underwent Ex-lap 05/29 s/p washout of abdominal wall abscess Continue Zosyn day 13, elevated WBC is now normal, stop Abx on day 14, patient afebrile, lasts C diff serology neg on 05/28 -repeat CT 06/05 showed improvment -further treatment plan as per surgery Diarrhea--imodium PRN, repeat C dif HypOkalemia--corrected Chronic combined systolic and diastolic heart failure--presently compensated continue Lasix, Aldactne, Coreg and Valsarta. Avoid fluid Diabetes-- blood sugars stable continue, SSI, and regular diet Paroxysmal atrial fibrillation--rate controlled, continue Coreg, Amiodarone, and Xarelto Can come off tele DVT: Xarelto Check labs on Wednesday out of bed, ambulate if able, PT to work with him during the week Quality Stroke Does the patient have a stroke diagnosis?: No VTE Prior VTE?: No VTE Risk Level:: Medical - moderate - high VTE Device Contraindication: N/A - Device Ordered VTE Drug Contraindication: N/A - Med Ordered
--- NOTE | 2021-06-09 14:02 | P.PNGS_ITS ---
Subjective Subjective Date of Service: 06/09/21 Interval history: Patient reports having a good weekend, having some pain in the right flank and a small amount of nausea this morning. Bowels are loose and he is eating lightly. He denies any new problems. Patient was involved with physical therapy at the time of my visit. Physical Exam Vital Signs: Vital Signs: Last Vital Signs Temp 97.4 F 06/09/21 11:40 Pulse 75 06/09/21 13:17 Resp 19 06/09/21 11:40 BP 135/71 06/09/21 13:17 Pulse Ox 97 06/09/21 13:17 Body Mass Index 27.7 Const: General: comfortable and no acute distress Nutritional Appearance: cachectic Orientation/consciousness: patient oriented x3 Limitations: no limitations Resp: Effort & Inspection: normal respiratory effort GI: Other: Dressings clean, intact, SHY with small amount of thick material Skin: Other: Warm, dry Neuro: General: patient oriented x3 Extrem: Other: No edema Procedures Date of Service Date of Service: 06/09/21 Progress Note: A&P Assessment and plan (1) Abdominal wall abscess: Status: Acute Assessment and Plan: 61-year-old male patient with a previous history of perforated appendicitis with abscess and a complicated clinical course including retroperitoneal and abdominal wall abscess collections. Patient continues to have some discharge from the incisions but generally feels improved. Will continue local wound care for open wounds on the right flank. SHY with decreased output. Continue antibiotics. Laboratories evaluated: Potassium in the normal range. WBC normal. Fall Risk Details Current Medications: Current Medications Generic Name Dose Route Start Last Admin Trade Name Silvianoq PRN Reason Stop Dose Admin Carvedilol 6.25 mg 05/26/21 21:00 06/09/21 09:44 Carvedilol 6.25 Mg Tablet PO 6.25 mg BID [facility] Administration Protocol Furosemide 40 mg 05/26/21 21:00 06/09/21 09:44 Furosemide 40 Mg Tablet PO 40 mg BID [facility] Administration Protocol Gemfibrozil 600 mg 05/26/21 21:00 06/09/21 09:44 Gemfibrozil 600 Mg Tablet PO 600 mg BID [facility] Administration Hydromorphone HCl 0.5 mg 05/29/21 15:08 06/09/21 09:45 Hydromorphone Hcl 0.5 Mg/0.5 Ml Syringe IVPUSH 0.5 mg Q4H PRN Administration Pain, Severe (Pain Scale 7-10) Hydromorphone HCl 2 mg 05/29/21 15:08 06/04/21 10:08 Hydromorphone Hcl 2 Mg Tablet PO 2 mg Q4H PRN Administration Pain, Moderate (Pain Scale 4-6 Piperacillin Sod/Tazobactam 50 mls @ 100 mls/hr 05/26/21 18:00 06/09/21 07:00 Sod 3.375 gm/ Sodium Chloride IV Infused Q6H [facility] Infusion Insulin Human Lispro 0 unit 05/27/21 11:30 06/09/21 11:43 Insulin Lispro 100 Unit/Ml 3 Ml Vial SUBCUT Not Given QIDACHS [facility] Protocol Loperamide HCl 2 mg 06/06/21 18:10 06/07/21 09:27 Loperamide Hcl Oral Liquid 2 Mg/15 Ml Liquid PO 2 mg Q6H PRN Administration Diarrhea Multivitamins/Vitamin C 1 tab 05/27/21 09:00 06/09/21 09:45 Multivitamin Tablet PO 1 tab DAILY [facility] Administration Ondansetron HCl 4 mg 05/27/21 11:16 06/02/21 08:54 Ondansetron Hcl 4 Mg/2 Ml Vial IVPUSH 4 mg Q8H PRN Administration Nausea and Vomiting Pharmacy Consult 1 each 05/26/21 12:20 Consult Rx Perform Med Rec MISCELLANE ONCE PRN Consult order Rivaroxaban 20 mg 06/03/21 09:00 06/09/21 09:44 Rivaroxaban 20 Mg Tablet PO 20 mg DAILY [facility] Administration Sodium Chloride 3 ml 05/27/21 00:00 06/09/21 09:45 0.9 % Sodium Chloride Flush 3 Ml Syringe IVFLUSH 3 ml QSHIFT [facility] Administration Spironolactone 25 mg 05/27/21 09:00 06/09/21 09:45 Spironolactone 25 Mg Tablet PO 25 mg DAILY [facility] Administration Protocol Trazodone HCl 50 mg 05/26/21 21:00 06/08/21 20:25 Trazodone Hcl 50 Mg Tablet PO 50 mg BEDTIME [facility] Administration Valsartan 80 mg 05/27/21 09:00 06/09/21 09:44 Valsartan 80 Mg Tablet PO 80 mg DAILY [facility] Administration Protocol Zolpidem Tartrate 5 mg 05/26/21 21:00 06/08/21 20:40 Zolpidem Tartrate 5 Mg Tablet PO 5 mg BEDTIME [facility] Administration Time Spent With Patient Time: Total time spent is greater than 50% in coordination of care (as documented) at patient's floor/unit and/or counseling patient: Time with patient: 15 - 24 minutes Quality Stroke Does the patient have a stroke diagnosis?: No VTE Prior VTE?: No VTE Risk Level:: Medical - moderate - high VTE Device Contraindication: N/A - Device Ordered VTE Drug Contraindication: N/A - Med Ordered
[2021-06-09 16:17] LABS: Glucose, Whole Blood 106 mg/dL (60-115)
[2021-06-09 20:39] LABS: Glucose, Whole Blood 155 mg/dL (60-115)
[2021-06-09] MEDS: Zolpidem Tartrate 5 MG TABLET PO (22:33)
[2021-06-09] MEDS: traZODone HCL 50 MG TABLET PO (22:33)
[2021-06-09] MEDS: Insulin Lispro 100 UNIT/ML 3 ML VIAL SUBCUT (22:33)
[2021-06-10] VITALS (10 sets, daily range): BP systolic 120–140; BP diastolic 61–81; PULSE 73–99; RESP 16–20; TEMP 36–37.2; O2SAT 94–98; BMI 27.7
[2021-06-10] MEDS: HYDROmorphone HCl 0.5 MG/0.5 ML SYRINGE IVPUSH ×3 (01:49→20:09)
[2021-06-10 07:28] LABS: Glucose, Whole Blood 137 mg/dL (60-115)
[2021-06-10] MEDS: 0.9 % Sodium Chloride Flush 3 ML SYRINGE IVFLUSH ×3 (07:40→20:10)
--- NOTE | 2021-06-10 08:21 | PM.PNGS ---
Subjective Subjective Date of Service: 06/10/21 Interval history: No new complaints; reports some right sided abdominal pain. Wants to try to get out of bed today; reports feeling too sick yesterday to ambulate. Feels better today. Physical Exam Vital Signs: Vital Signs: Last Vital Signs Temp 97.6 F 06/10/21 08:00 Pulse 98 06/10/21 08:00 Resp 19 06/10/21 08:00 BP 140/81 H 06/10/21 08:00 Pulse Ox 97 06/10/21 08:00 Body Mass Index 27.7 Const: General: comfortable, no acute distress, alert and awake Resp: Effort & Inspection: normal respiratory effort GI: Other: soft, non-distended, minimal incisional tenderness, no erythema. Dressings changed, wounds repacked with betadine soaked 2x2 gauze. No purulent discharge noted. SHY intact with dark, thick output. Skin: Other: warm, dry, no rash Extrem: Other: no edema Procedures Date of Service Date of Service: 06/10/21 Progress Note: A&P Assessment and plan (1) Abdominal wall abscess: Status: Acute Assessment and Plan: 61-year-old male patient with a previous history of perforated appendicitis with abscess and a complicated clinical course including retroperitoneal and abdominal wall abscess collections. Wounds are much improved with decreased discharge, no purulent discharge and no erythema. Wounds repacked; patient tolerated packing well. Will continue local wound care. Monitor SHY output. Plan to remove prior to discharge. Discharge planning; continue PT. Fall Risk Details Current Medications: Current Medications Generic Name Dose Route Start Last Admin Trade Name Gualberto PRN Reason Stop Dose Admin Carvedilol 6.25 mg 05/26/21 21:00 06/09/21 22:33 Carvedilol 6.25 Mg Tablet PO 6.25 mg BID [facility] Administration Protocol Furosemide 40 mg 05/26/21 21:00 06/09/21 22:33 Furosemide 40 Mg Tablet PO 40 mg BID [facility] Administration Protocol Gemfibrozil 600 mg 05/26/21 21:00 06/09/21 22:33 Gemfibrozil 600 Mg Tablet PO 600 mg BID [facility] Administration Hydromorphone HCl 0.5 mg 05/29/21 15:08 06/10/21 01:49 Hydromorphone Hcl 0.5 Mg/0.5 Ml Syringe IVPUSH 0.5 mg Q4H PRN Administration Pain, Severe (Pain Scale 7-10) Hydromorphone HCl 2 mg 05/29/21 15:08 06/04/21 10:08 Hydromorphone Hcl 2 Mg Tablet PO 2 mg Q4H PRN Administration Pain, Moderate (Pain Scale 4-6 Insulin Human Lispro 0 unit 05/27/21 11:30 06/10/21 07:38 Insulin Lispro 100 Unit/Ml 3 Ml Vial SUBCUT Not Given QIDACHS [facility] Protocol Loperamide HCl 2 mg 06/06/21 18:10 06/07/21 09:27 Loperamide Hcl Oral Liquid 2 Mg/15 Ml Liquid PO 2 mg Q6H PRN Administration Diarrhea Multivitamins/Vitamin C 1 tab 05/27/21 09:00 06/09/21 09:45 Multivitamin Tablet PO 1 tab DAILY [facility] Administration Ondansetron HCl 4 mg 05/27/21 11:16 06/02/21 08:54 Ondansetron Hcl 4 Mg/2 Ml Vial IVPUSH 4 mg Q8H PRN Administration Nausea and Vomiting Pharmacy Consult 1 each 05/26/21 12:20 Consult Rx Perform Med Rec MISCELLANE ONCE PRN Consult order Rivaroxaban 20 mg 06/03/21 09:00 06/09/21 09:44 Rivaroxaban 20 Mg Tablet PO 20 mg DAILY [facility] Administration Sodium Chloride 3 ml 05/27/21 00:00 06/10/21 07:40 0.9 % Sodium Chloride Flush 3 Ml Syringe IVFLUSH 3 ml QSHIFT [facility] Administration Spironolactone 25 mg 05/27/21 09:00 06/09/21 09:45 Spironolactone 25 Mg Tablet PO 25 mg DAILY [facility] Administration Protocol Trazodone HCl 50 mg 05/26/21 21:00 06/09/21 22:33 Trazodone Hcl 50 Mg Tablet PO 50 mg BEDTIME [facility] Administration Valsartan 80 mg 05/27/21 09:00 06/09/21 09:44 Valsartan 80 Mg Tablet PO 80 mg DAILY [facility] Administration Protocol Zolpidem Tartrate 5 mg 05/26/21 21:00 06/09/21 22:33 Zolpidem Tartrate 5 Mg Tablet PO 5 mg BEDTIME [facility] Administration Time Spent With Patient Time: Total time spent is greater than 50% in coordination of care (as documented) at patient's floor/unit and/or counseling patient: Time with patient: 25 - 35 minutes Quality Stroke Does the patient have a stroke diagnosis?: No VTE Prior VTE?: No VTE Risk Level:: Medical - moderate - high VTE Device Contraindication: N/A - Device Ordered VTE Drug Contraindication: N/A - Med Ordered
[2021-06-10] MEDS: Valsartan 80 MG TABLET PO (10:11)
[2021-06-10] MEDS: Spironolactone 25 MG TABLET PO (10:11)
[2021-06-10] MEDS: Furosemide 40 MG TABLET PO ×2 (10:11→20:10)
[2021-06-10] MEDS: carvediloL 6.25 MG TABLET PO ×2 (10:11→20:10)
[2021-06-10] MEDS: Rivaroxaban 20 MG TABLET PO (10:11)
[2021-06-10] MEDS: gemfibroziL 600 MG TABLET PO ×2 (10:12→20:09)
[2021-06-10] MEDS: Multivitamin TABLET 1 TAB PO (10:12)
[2021-06-10 11:47] LABS: Glucose, Whole Blood 135 mg/dL (60-115)
--- NOTE | 2021-06-10 12:03 | MHC.CLN ---
F/U GSR REPORTED PT REFUSING GLUCERNA PT STATES HE DOES NOT LIKE SUPPLEMENTS AND REFUSES TO DRINK OFFERED OTHER ALTERNATIVE NUTRITION SUPPLEMENTS AND PT REFUSED ALL OPTIONS WILL D/C R/T PT'S REFUSAL
--- NOTE | 2021-06-10 12:50 | P.PNIM_ITS ---
Subjective Subjective Date of Service: 06/10/21 Interval History: Seen in f/u for recurrent abdominal wall abscess, POD 12, better, continue to improve Review of Systems Gen: no fever Resp: no sob, no cough CV: no chest, no AIKEN, no leg edema GI: + n/-v, no abd pain Neuro: No confusion Physical Exam Vital Signs: Vital Signs: Last Vital Signs Temp 97.3 F 06/10/21 11:39 Pulse 99 06/10/21 11:39 Resp 19 06/10/21 11:39 BP 132/70 06/10/21 11:39 Pulse Ox 95 06/10/21 11:39 Body Mass Index 27.7 Const: Other: Constitutional Awake and Alert, No apparent distress Neck Supple, No lymphadenopathy Cardiovascular RRR, No M/R/G, S1 S2, No S3 S4, No pedal edema Respiratory Lungs clear, No respiratory distress Gastrointestinal Non tender, surgical wound dressing in place, SHY drain is in place Skin No rash Neurological Alert & oriented x3 Psychological Appropriate affect Objective Data Current Medications Generic Name Dose Route Start Last Admin Trade Name Gualberto PRN Reason Stop Dose Admin Carvedilol 6.25 mg 05/26/21 21:00 06/10/21 10:11 Carvedilol 6.25 Mg Tablet PO 6.25 mg BID [facility] Administration Protocol Furosemide 40 mg 05/26/21 21:00 06/10/21 10:11 Furosemide 40 Mg Tablet PO 40 mg BID [facility] Administration Protocol Gemfibrozil 600 mg 05/26/21 21:00 06/10/21 10:12 Gemfibrozil 600 Mg Tablet PO 600 mg BID [facility] Administration Hydromorphone HCl 0.5 mg 05/29/21 15:08 06/10/21 01:49 Hydromorphone Hcl 0.5 Mg/0.5 Ml Syringe IVPUSH 0.5 mg Q4H PRN Administration Pain, Severe (Pain Scale 7-10) Hydromorphone HCl 2 mg 05/29/21 15:08 06/04/21 10:08 Hydromorphone Hcl 2 Mg Tablet PO 2 mg Q4H PRN Administration Pain, Moderate (Pain Scale 4-6 Insulin Human Lispro 0 unit 05/27/21 11:30 06/10/21 11:52 Insulin Lispro 100 Unit/Ml 3 Ml Vial SUBCUT Not Given QIDACHS [facility] Protocol Loperamide HCl 2 mg 06/06/21 18:10 06/07/21 09:27 Loperamide Hcl Oral Liquid 2 Mg/15 Ml Liquid PO 2 mg Q6H PRN Administration Diarrhea Multivitamins/Vitamin C 1 tab 05/27/21 09:00 06/10/21 10:12 Multivitamin Tablet PO 1 tab DAILY [facility] Administration Ondansetron HCl 4 mg 05/27/21 11:16 06/02/21 08:54 Ondansetron Hcl 4 Mg/2 Ml Vial IVPUSH 4 mg Q8H PRN Administration Nausea and Vomiting Pharmacy Consult 1 each 05/26/21 12:20 Consult Rx Perform Med Rec MISCELLANE ONCE PRN Consult order Rivaroxaban 20 mg 06/03/21 09:00 06/10/21 10:11 Rivaroxaban 20 Mg Tablet PO 20 mg DAILY [facility] Administration Sodium Chloride 3 ml 05/27/21 00:00 06/10/21 07:40 0.9 % Sodium Chloride Flush 3 Ml Syringe IVFLUSH 3 ml QSHIFT [facility] Administration Spironolactone 25 mg 05/27/21 09:00 06/10/21 10:11 Spironolactone 25 Mg Tablet PO 25 mg DAILY [facility] Administration Protocol Trazodone HCl 50 mg 05/26/21 21:00 06/09/21 22:33 Trazodone Hcl 50 Mg Tablet PO 50 mg BEDTIME [facility] Administration Valsartan 80 mg 05/27/21 09:00 06/10/21 10:11 Valsartan 80 Mg Tablet PO 80 mg DAILY [facility] Administration Protocol Zolpidem Tartrate 5 mg 05/26/21 21:00 06/09/21 22:33 Zolpidem Tartrate 5 Mg Tablet PO 5 mg BEDTIME [facility] Administration Labs CBC & Chem 7: 06/09/21 04:33 06/09/21 04:33 Labs: Laboratory Results - last 24 hr 06/09/21 06/09/21 06/10/21 16:14 20:34 07:20 POC Glucose 106 155 H 137 H 06/10/21 11:41 POC Glucose 135 H Assessment and Plan (1) Diarrhea: Status: Acute (2) Hypokalemia: Status: Acute (3) Diabetes mellitus: Status: Acute (4) Abdominal wall abscess: Status: Acute (5) Cardiomyopathy: Status: Acute (6) CHF (congestive heart failure): Status: Acute Assessment and Plan: 61 year old male with DM, AFIB, CAD, CAD, CM with combined systolic and diastolic Heart failure here with with recurrent abdominal wall abscess Abdominal wall abscess and retroperitoneal abscess - had IR drain put in 05/28 but fell out next day -underwent Ex-lap 05/29 s/p washout of abdominal wall abscess Continue Zosyn day 14, elevated WBC is now normal, stop Abx on day 14, patient afebrile, lasts C diff serology neg on 05/28 -repeat CT 06/05 showed improvment -further treatment plan as per surgery Diarrhea--imodium PRN, repeat C dif HypOkalemia--corrected Chronic combined systolic and diastolic heart failure--presently compensated continue Lasix, Aldactne, Coreg and Valsarta. Avoid fluid Diabetes-- blood sugars stable continue, SSI, and regular diet Paroxysmal atrial fibrillation--rate controlled, continue Coreg, Amiodarone, and Xarelto Can come off tele DVT: Xarelto Check labs on Wednesday out of bed, ambulate if able, PT to work with him, ancitipate dc soon Quality Stroke Does the patient have a stroke diagnosis?: No VTE Prior VTE?: No VTE Risk Level:: Medical - moderate - high VTE Device Contraindication: N/A - Device Ordered VTE Drug Contraindication: N/A - Med Ordered
--- NOTE | 2021-06-10 14:10 | PC.NURSE ---
pt has 15 ml serous drainage from SHY drain. HE reports pain to abdomen and has been medicated for symptom. will continue to monitor and reassess.
--- NOTE | 2021-06-10 14:55 | PC.NURSE ---
Skin assessment today. Patient has surgical incisions- right lateral abdomen and anterior lower abdomen-naa drain on lower abdomen. Patient also has a friction area on left stump, woundres gel and foam-close to healed. This a chronic wound. Patients also has healing macerated skin from loose stool. EPC cream applied.
[2021-06-10 16:15] LABS: Glucose, Whole Blood 130 mg/dL (60-115)
[2021-06-10] MEDS: Zolpidem Tartrate 5 MG TABLET PO (20:09)
[2021-06-10] MEDS: traZODone HCL 50 MG TABLET PO (20:09)
[2021-06-10 20:12] LABS: Glucose, Whole Blood 143 mg/dL (60-115)
[2021-06-11] VITALS (9 sets, daily range): BP systolic 120–144; BP diastolic 60–84; PULSE 72–105; RESP 18–20; TEMP 36.2–37.2; O2SAT 92–98
[2021-06-11] MEDS: HYDROmorphone HCl 0.5 MG/0.5 ML SYRINGE IVPUSH ×5 (00:37→22:31)
[2021-06-11 07:24] LABS: Glucose, Whole Blood 125 mg/dL (60-115)
[2021-06-11] MEDS: 0.9 % Sodium Chloride Flush 3 ML SYRINGE IVFLUSH ×3 (08:40→22:32)
[2021-06-11] MEDS: Rivaroxaban 20 MG TABLET PO (08:41)
[2021-06-11] MEDS: Multivitamin TABLET 1 TAB PO (08:41)
[2021-06-11] MEDS: gemfibroziL 600 MG TABLET PO ×2 (08:42→22:31)
[2021-06-11] MEDS: carvediloL 6.25 MG TABLET PO ×2 (08:42→22:30)
[2021-06-11] MEDS: Furosemide 40 MG TABLET PO ×2 (08:42→22:30)
[2021-06-11] MEDS: Spironolactone 25 MG TABLET PO (08:43)
[2021-06-11] MEDS: Valsartan 80 MG TABLET PO (08:43)
--- NOTE | 2021-06-11 09:17 | P.PNIM_ITS ---
Subjective Subjective Date of Service: 06/11/21 Interval History: Seen in f/u for recurrent abdominal wall abscess, POD 12, better, continue to improve, has no new complaint Physical Exam Vital Signs: Vital Signs: Last Vital Signs Temp 98 F 06/11/21 07:20 Pulse 99 06/11/21 08:43 Resp 20 06/11/21 07:20 BP 139/79 06/11/21 08:43 Pulse Ox 98 06/11/21 07:20 Body Mass Index 27.7 Const: Other: Constitutional Awake and Alert, No apparent distress Neck Supple, No lymphadenopathy Cardiovascular RRR, No M/R/G, S1 S2, No S3 S4, No pedal edema Respiratory Lungs clear, No respiratory distress Gastrointestinal Non tender, surgical wound dressing in place, SHY drain is in place Skin No rash Neurological Alert & oriented x3 Psychological Appropriate affect Objective Data Current Medications Generic Name Dose Route Start Last Admin Trade Name Freq PRN Reason Stop Dose Admin Carvedilol 6.25 mg 05/26/21 21:00 06/11/21 08:42 Carvedilol 6.25 Mg Tablet PO 6.25 mg BID [facility] Administration Protocol Furosemide 40 mg 05/26/21 21:00 06/11/21 08:42 Furosemide 40 Mg Tablet PO 40 mg BID [facility] Administration Protocol Gemfibrozil 600 mg 05/26/21 21:00 06/11/21 08:42 Gemfibrozil 600 Mg Tablet PO 600 mg BID [facility] Administration Hydromorphone HCl 0.5 mg 05/29/21 15:08 06/11/21 06:12 Hydromorphone Hcl 0.5 Mg/0.5 Ml Syringe IVPUSH 0.5 mg Q4H PRN Administration Pain, Severe (Pain Scale 7-10) Hydromorphone HCl 2 mg 05/29/21 15:08 06/04/21 10:08 Hydromorphone Hcl 2 Mg Tablet PO 2 mg Q4H PRN Administration Pain, Moderate (Pain Scale 4-6 Insulin Human Lispro 0 unit 05/27/21 11:30 06/11/21 08:37 Insulin Lispro 100 Unit/Ml 3 Ml Vial SUBCUT Not Given QIDACHS [facility] Protocol Loperamide HCl 2 mg 06/06/21 18:10 06/07/21 09:27 Loperamide Hcl Oral Liquid 2 Mg/15 Ml Liquid PO 2 mg Q6H PRN Administration Diarrhea Multivitamins/Vitamin C 1 tab 05/27/21 09:00 06/11/21 08:41 Multivitamin Tablet PO 1 tab DAILY [facility] Administration Ondansetron HCl 4 mg 05/27/21 11:16 06/02/21 08:54 Ondansetron Hcl 4 Mg/2 Ml Vial IVPUSH 4 mg Q8H PRN Administration Nausea and Vomiting Pharmacy Consult 1 each 05/26/21 12:20 Consult Rx Perform Med Rec MISCELLANE ONCE PRN Consult order Rivaroxaban 20 mg 06/03/21 09:00 06/11/21 08:41 Rivaroxaban 20 Mg Tablet PO 20 mg DAILY [facility] Administration Sodium Chloride 3 ml 05/27/21 00:00 06/11/21 08:40 0.9 % Sodium Chloride Flush 3 Ml Syringe IVFLUSH 3 ml QSHIFT [facility] Administration Spironolactone 25 mg 05/27/21 09:00 06/11/21 08:43 Spironolactone 25 Mg Tablet PO 25 mg DAILY [facility] Administration Protocol Trazodone HCl 50 mg 05/26/21 21:00 06/10/21 20:09 Trazodone Hcl 50 Mg Tablet PO 50 mg BEDTIME [facility] Administration Valsartan 80 mg 05/27/21 09:00 06/11/21 08:43 Valsartan 80 Mg Tablet PO 80 mg DAILY [facility] Administration Protocol Zolpidem Tartrate 5 mg 05/26/21 21:00 06/10/21 20:09 Zolpidem Tartrate 5 Mg Tablet PO 5 mg BEDTIME [facility] Administration Labs CBC & Chem 7: 06/09/21 04:33 06/09/21 04:33 Labs: Laboratory Results - last 24 hr 06/10/21 06/10/21 06/10/21 11:41 16:11 20:03 POC Glucose 135 H 130 H 143 H 06/11/21 07:19 POC Glucose 125 H Assessment and Plan (1) Abdominal fluid collection: Status: Acute Assessment and Plan: 61 year old male with DM, AFIB, CAD, CAD, CM with combined systolic and diastolic Heart failure here with with recurrent abdominal wall abscess Abdominal wall abscess and retroperitoneal abscess - had IR drain put in 05/28 but fell out next day -underwent Ex-lap 05/29 s/p washout of abdominal wall abscess Continue Zosyn day 14, elevated WBC is now normal, stop Abx on day 14, patient afebrile, lasts C diff serology neg on 05/28 -repeat CT 06/05 showed improvment -further treatment plan as per surgery -I think we can stop antibiotics now 2 weeks into treatment Diarrhea--imodium PRN, repeat C dif HypOkalemia--corrected Chronic combined systolic and diastolic heart failure--presently compensated continue Lasix, Aldactne, Coreg and Valsarta. Avoid fluid Diabetes-- blood sugars stable continue, SSI, and regular diet Paroxysmal atrial fibrillation--rate controlled, continue Coreg, Amiodarone, and Xarelto Can come off tele DVT: Xarelto Check labs on Wednesday Out of bed, medically ready for discharge Quality Stroke Does the patient have a stroke diagnosis?: No VTE Prior VTE?: No VTE Risk Level:: Medical - moderate - high VTE Device Contraindication: N/A - Device Ordered VTE Drug Contraindication: N/A - Med Ordered
--- NOTE | 2021-06-11 10:58 | P.PNGS_ITS ---
Subjective Subjective Date of Service: 06/11/21 Patient reports: no new complaints, pain is less and nausea Physical Exam Vital Signs: Vital Signs: Last Vital Signs Temp 98 F 06/11/21 10:51 Pulse 72 06/11/21 10:51 Resp 18 06/11/21 10:51 BP 120/64 06/11/21 10:51 Pulse Ox 97 06/11/21 10:51 Body Mass Index 27.7 Const: General: comfortable Orientation/consciousness: patient oriented x3 HENMT: Head: Yes normocephalic and Yes atraumatic Resp: Effort & Inspection: normal respiratory effort GI: Other: soft, nondistended; dressings changed; no erythema and minimal serous discharge from the lateral wound. Anterior wound is dry. SHY with thinner yellow/brown fluid. Neuro: General: patient oriented x3 Extrem: General: No cyanosis and No edema Procedures Date of Service Date of Service: 06/11/21 Progress Note: A&P Assessment and plan (1) Abdominal wall abscess: Status: Acute Assessment and Plan: Overall patient is making great improvement in his wounds. They appear to be decreasing in size in the output is more serous without evidence of feculent discharge at this time. SHY continues to produce yellow/brown fluid and will need to remain in place. Dressings were changed this morning and the wounds were repacked. Continue local wound care and continue physical therapy. May be able to stop wound packing tomorrow but will need to continue with SHY drainage of the retroperitoneal collection. Recheck labs in a.m.. Fall Risk Details Current Medications: Current Medications Generic Name Dose Route Start Last Admin Trade Name Gualberto PRN Reason Stop Dose Admin Carvedilol 6.25 mg 05/26/21 21:00 06/11/21 08:42 Carvedilol 6.25 Mg Tablet PO 6.25 mg BID [facility] Administration Protocol Furosemide 40 mg 05/26/21 21:00 06/11/21 08:42 Furosemide 40 Mg Tablet PO 40 mg BID [facility] Administration Protocol Gemfibrozil 600 mg 05/26/21 21:00 06/11/21 08:42 Gemfibrozil 600 Mg Tablet PO 600 mg BID [facility] Administration Hydromorphone HCl 0.5 mg 05/29/21 15:08 06/11/21 06:12 Hydromorphone Hcl 0.5 Mg/0.5 Ml Syringe IVPUSH 0.5 mg Q4H PRN Administration Pain, Severe (Pain Scale 7-10) Hydromorphone HCl 2 mg 05/29/21 15:08 06/04/21 10:08 Hydromorphone Hcl 2 Mg Tablet PO 2 mg Q4H PRN Administration Pain, Moderate (Pain Scale 4-6 Insulin Human Lispro 0 unit 05/27/21 11:30 06/11/21 08:37 Insulin Lispro 100 Unit/Ml 3 Ml Vial SUBCUT Not Given QIDACHS [facility] Protocol Loperamide HCl 2 mg 06/06/21 18:10 06/07/21 09:27 Loperamide Hcl Oral Liquid 2 Mg/15 Ml Liquid PO 2 mg Q6H PRN Administration Diarrhea Multivitamins/Vitamin C 1 tab 05/27/21 09:00 06/11/21 08:41 Multivitamin Tablet PO 1 tab DAILY [facility] Administration Ondansetron HCl 4 mg 05/27/21 11:16 06/02/21 08:54 Ondansetron Hcl 4 Mg/2 Ml Vial IVPUSH 4 mg Q8H PRN Administration Nausea and Vomiting Pharmacy Consult 1 each 05/26/21 12:20 Consult Rx Perform Med Rec MISCELLANE ONCE PRN Consult order Rivaroxaban 20 mg 06/03/21 09:00 06/11/21 08:41 Rivaroxaban 20 Mg Tablet PO 20 mg DAILY [facility] Administration Sodium Chloride 3 ml 05/27/21 00:00 06/11/21 08:40 0.9 % Sodium Chloride Flush 3 Ml Syringe IVFLUSH 3 ml QSHIFT [facility] Administration Spironolactone 25 mg 05/27/21 09:00 06/11/21 08:43 Spironolactone 25 Mg Tablet PO 25 mg DAILY [facility] Administration Protocol Trazodone HCl 50 mg 05/26/21 21:00 06/10/21 20:09 Trazodone Hcl 50 Mg Tablet PO 50 mg BEDTIME [facility] Administration Valsartan 80 mg 05/27/21 09:00 06/11/21 08:43 Valsartan 80 Mg Tablet PO 80 mg DAILY [facility] Administration Protocol Zolpidem Tartrate 5 mg 05/26/21 21:00 06/10/21 20:09 Zolpidem Tartrate 5 Mg Tablet PO 5 mg BEDTIME [facility] Administration Time Spent With Patient Time: Total time spent is greater than 50% in coordination of care (as documented) at patient's floor/unit and/or counseling patient: Time with patient: 15 - 24 minutes No Severe Sepsis: No Severe Sepsis Quality Stroke Does the patient have a stroke diagnosis?: No VTE Prior VTE?: No VTE Risk Level:: Medical - moderate - high VTE Device Contraindication: N/A - Device Ordered VTE Drug Contraindication: N/A - Med Ordered
[2021-06-11 11:13] LABS: Glucose, Whole Blood 137 mg/dL (60-115)
--- NOTE | 2021-06-11 11:15 | MHC.CM.PN ---
Patient has not yet been cleared for dc by Surgeon. (IV Dilaudid, SHY drain still draining yellow/brown fluid and needs to remain in place). PT now recommending STR vs Home with services. CM will continue to follow for dc planning.
--- NOTE | 2021-06-11 11:25 | MHC.CLN ---
F/U PO INTAKE 50-100% DIET RX: REGULAR-APPROPRIATE PT RECEVING BENJAMIN TO PROMOTE WOUND HEALING PT REFUSES ALL OTHER PO NUTRITION SUPPLEMENTS AT THIS TIME MONITOR PO INTAKE CLOSELY
[2021-06-11 16:16] LABS: Glucose, Whole Blood 118 mg/dL (60-115)
[2021-06-11 20:21] LABS: Glucose, Whole Blood 171 mg/dL (60-115)
[2021-06-11] MEDS: traZODone HCL 50 MG TABLET PO (22:31)
[2021-06-11] MEDS: Zolpidem Tartrate 5 MG TABLET PO (22:31)
[2021-06-12] VITALS (9 sets, daily range): BP systolic 104–130; BP diastolic 57–69; PULSE 73–109; RESP 16–19; TEMP 36.2–36.8; O2SAT 92–97
[2021-06-12] MEDS: HYDROmorphone HCl 0.5 MG/0.5 ML SYRINGE IVPUSH ×5 (03:12→21:33)
[2021-06-12 07:34] LABS: Glucose, Whole Blood 125 mg/dL (60-115)
[2021-06-12] MEDS: gemfibroziL 600 MG TABLET PO ×2 (08:17→21:00)
[2021-06-12] MEDS: carvediloL 6.25 MG TABLET PO ×2 (08:17→21:00)
[2021-06-12] MEDS: Multivitamin TABLET 1 TAB PO (08:17)
[2021-06-12] MEDS: Rivaroxaban 20 MG TABLET PO (08:17)
[2021-06-12] MEDS: Furosemide 40 MG TABLET PO ×2 (08:17→21:00)
[2021-06-12] MEDS: Valsartan 80 MG TABLET PO (08:17)
[2021-06-12] MEDS: Spironolactone 25 MG TABLET PO (08:18)
[2021-06-12] MEDS: 0.9 % Sodium Chloride Flush 3 ML SYRINGE IVFLUSH ×2 (08:19→20:59)
--- NOTE | 2021-06-12 09:15 | PM.PNGS ---
Subjective Subjective Date of Service: 06/12/21 Interval history: Continues to feel better. Had some LLE stump pain yesterday. Now resolved. No other new complaints. Physical Exam Vital Signs: Vital Signs: Last Vital Signs Temp 97.2 F 06/12/21 07:15 Pulse 76 06/12/21 08:18 Resp 17 06/12/21 07:15 BP 130/69 06/12/21 08:18 Pulse Ox 97 06/12/21 07:15 Body Mass Index 27.7 Const: General: comfortable, no acute distress and alert Orientation/consciousness: patient oriented x3 Resp: Effort & Inspection: normal respiratory effort Cardio: Rate: regular rate GI: Other: SHY drain in place with scanty drainage Inspection: No distended and Yes incision (no erythema, right lateral incision packing removed ) Palpation (GI): Soft to palpation, Tenderness to palpation present (GI) (mild, incisional), no guarding and not rigid Skin: General skin exam: no rashes or lesions noted Neuro: General: patient oriented x3 Procedures Date of Service Date of Service: 06/12/21 Progress Note: A&P Assessment and plan (1) Abdominal wall abscess: Status: Acute Assessment and Plan: Wounds continue to decrease in size and the output remains without evidence of feculent discharge.? SHY output decreased and removed this am.? Dressings were changed this morning and the wound packing removed.? Continue local wound care and continue physical therapy.? Recheck labs tomorrow morning. Likely discharge after the weekend if continues to improve. Fall Risk Details Current Medications: Current Medications Generic Name Dose Route Start Last Admin Trade Name Gualberto PRN Reason Stop Dose Admin Carvedilol 6.25 mg 05/26/21 21:00 06/12/21 08:17 Carvedilol 6.25 Mg Tablet PO 6.25 mg BID KANCHAN Administration Protocol Furosemide 40 mg 05/26/21 21:00 06/12/21 08:17 Furosemide 40 Mg Tablet PO 40 mg BID KANCHAN Administration Protocol Gemfibrozil 600 mg 05/26/21 21:00 06/12/21 08:17 Gemfibrozil 600 Mg Tablet PO 600 mg BID KANCHAN Administration Hydromorphone HCl 0.5 mg 05/29/21 15:08 06/12/21 08:18 Hydromorphone Hcl 0.5 Mg/0.5 Ml Syringe IVPUSH 0.5 mg Q4H PRN Administration Pain, Severe (Pain Scale 7-10) Hydromorphone HCl 2 mg 05/29/21 15:08 06/04/21 10:08 Hydromorphone Hcl 2 Mg Tablet PO 2 mg Q4H PRN Administration Pain, Moderate (Pain Scale 4-6 Insulin Human Lispro 0 unit 05/27/21 11:30 06/12/21 07:47 Insulin Lispro 100 Unit/Ml 3 Ml Vial SUBCUT Not Given QIDACHS [facility] Protocol Loperamide HCl 2 mg 06/06/21 18:10 06/07/21 09:27 Loperamide Hcl Oral Liquid 2 Mg/15 Ml Liquid PO 2 mg Q6H PRN Administration Diarrhea Multivitamins/Vitamin C 1 tab 05/27/21 09:00 06/12/21 08:17 Multivitamin Tablet PO 1 tab DAILY KANCHAN Administration Ondansetron HCl 4 mg 05/27/21 11:16 06/02/21 08:54 Ondansetron Hcl 4 Mg/2 Ml Vial IVPUSH 4 mg Q8H PRN Administration Nausea and Vomiting Pharmacy Consult 1 each 05/26/21 12:20 Consult Rx Perform Med Rec MISCELLANE ONCE PRN Consult order Rivaroxaban 20 mg 06/03/21 09:00 06/12/21 08:17 Rivaroxaban 20 Mg Tablet PO 20 mg DAILY KANCHAN Administration Sodium Chloride 3 ml 05/27/21 00:00 06/12/21 08:19 0.9 % Sodium Chloride Flush 3 Ml Syringe IVFLUSH 3 ml QSHIFT KANCHAN Administration Spironolactone 25 mg 05/27/21 09:00 06/12/21 08:18 Spironolactone 25 Mg Tablet PO 25 mg DAILY KANCHAN Administration Protocol Trazodone HCl 50 mg 05/26/21 21:00 06/11/21 22:31 Trazodone Hcl 50 Mg Tablet PO 50 mg BEDTIME KANCHAN Administration Valsartan 80 mg 05/27/21 09:00 06/12/21 08:17 Valsartan 80 Mg Tablet PO 80 mg DAILY KANCHAN Administration Protocol Zolpidem Tartrate 5 mg 05/26/21 21:00 06/11/21 22:31 Zolpidem Tartrate 5 Mg Tablet PO 5 mg BEDTIME KANCHAN Administration Time Spent With Patient Time: Total time spent is greater than 50% in coordination of care (as documented) at patient's floor/unit and/or counseling patient: Time with patient: 15 - 24 minutes Quality Stroke Does the patient have a stroke diagnosis?: No VTE Prior VTE?: No VTE Risk Level:: Medical - moderate - high VTE Device Contraindication: N/A - Device Ordered VTE Drug Contraindication: N/A - Med Ordered
--- NOTE | 2021-06-12 10:45 | HO.PM.IMPN ---
Subjective Subjective Date of Service: 06/12/21 Interval History: Seen in f/u for recurrent abdominal wall abscess, POD 12, better, continue to improve, has no new complaint Review of Systems Gen: no fever Resp: no sob, no cough CV: no chest, no AIKEN, no leg edema GI: + n/-v, no abd pain Neuro: No confusion Physical Exam Vital Signs: Vital Signs: Last Vital Signs Temp 97.2 F 06/12/21 07:15 Pulse 76 06/12/21 08:18 Resp 17 06/12/21 07:15 BP 130/69 06/12/21 08:18 Pulse Ox 97 06/12/21 07:15 Body Mass Index 27.7 Const: Other: Constitutional Awake and Alert, No apparent distress Neck Supple, No lymphadenopathy Cardiovascular RRR, No M/R/G, S1 S2, No S3 S4, No pedal edema Respiratory Lungs clear, No respiratory distress Gastrointestinal Non tender, surgical wound dressing in place, SHY drain is in place Skin No rash Neurological Alert & oriented x3 Psychological Appropriate affect Objective Data Current Medications Generic Name Dose Route Start Last Admin Trade Name Freq PRN Reason Stop Dose Admin Carvedilol 6.25 mg 05/26/21 21:00 06/12/21 08:17 Carvedilol 6.25 Mg Tablet PO 6.25 mg BID KANCHAN Administration Protocol Furosemide 40 mg 05/26/21 21:00 06/12/21 08:17 Furosemide 40 Mg Tablet PO 40 mg BID KANCHAN Administration Protocol Gemfibrozil 600 mg 05/26/21 21:00 06/12/21 08:17 Gemfibrozil 600 Mg Tablet PO 600 mg BID KANCHAN Administration Hydromorphone HCl 0.5 mg 05/29/21 15:08 06/12/21 08:18 Hydromorphone Hcl 0.5 Mg/0.5 Ml Syringe IVPUSH 0.5 mg Q4H PRN Administration Pain, Severe (Pain Scale 7-10) Hydromorphone HCl 2 mg 05/29/21 15:08 06/04/21 10:08 Hydromorphone Hcl 2 Mg Tablet PO 2 mg Q4H PRN Administration Pain, Moderate (Pain Scale 4-6 Insulin Human Lispro 0 unit 05/27/21 11:30 06/12/21 07:47 Insulin Lispro 100 Unit/Ml 3 Ml Vial SUBCUT Not Given QIDACHS K[facility] Protocol Loperamide HCl 2 mg 06/06/21 18:10 06/07/21 09:27 Loperamide Hcl Oral Liquid 2 Mg/15 Ml Liquid PO 2 mg Q6H PRN Administration Diarrhea Multivitamins/Vitamin C 1 tab 05/27/21 09:00 06/12/21 08:17 Multivitamin Tablet PO 1 tab DAILY KANCHAN Administration Ondansetron HCl 4 mg 05/27/21 11:16 06/02/21 08:54 Ondansetron Hcl 4 Mg/2 Ml Vial IVPUSH 4 mg Q8H PRN Administration Nausea and Vomiting Pharmacy Consult 1 each 05/26/21 12:20 Consult Rx Perform Med Rec MISCELLANE ONCE PRN Consult order Rivaroxaban 20 mg 06/03/21 09:00 06/12/21 08:17 Rivaroxaban 20 Mg Tablet PO 20 mg DAILY KANCHAN Administration Sodium Chloride 3 ml 05/27/21 00:00 06/12/21 08:19 0.9 % Sodium Chloride Flush 3 Ml Syringe IVFLUSH 3 ml QSHIFT KANCHAN Administration Spironolactone 25 mg 05/27/21 09:00 06/12/21 08:18 Spironolactone 25 Mg Tablet PO 25 mg DAILY KANCHAN Administration Protocol Trazodone HCl 50 mg 05/26/21 21:00 06/11/21 22:31 Trazodone Hcl 50 Mg Tablet PO 50 mg BEDTIME KANCHAN Administration Valsartan 80 mg 05/27/21 09:00 06/12/21 08:17 Valsartan 80 Mg Tablet PO 80 mg DAILY KANCHAN Administration Protocol Zolpidem Tartrate 5 mg 05/26/21 21:00 06/11/21 22:31 Zolpidem Tartrate 5 Mg Tablet PO 5 mg BEDTIME KANCHAN Administration Labs CBC & Chem 7: 06/09/21 04:33 06/09/21 04:33 Labs: Laboratory Results - last 24 hr 06/11/21 06/11/21 06/11/21 10:50 16:09 20:11 POC Glucose 137 H 118 H 171 H 06/12/21 07:31 POC Glucose 125 H Assessment and Plan (1) Abdominal wall abscess: Status: Acute (2) CHF (congestive heart failure): Status: Acute (3) Diabetes mellitus: Status: Acute Assessment and Plan: 61 year old male with DM, AFIB, CAD, CAD, CM with combined systolic and diastolic Heart failure here with with recurrent abdominal wall abscess Abdominal wall abscess and retroperitoneal abscess - had IR drain put in 05/28 but fell out next day -underwent Ex-lap 05/29 s/p washout of abdominal wall abscess -Has completed 2 weeks of Zosyn -repeat CT 06/05 showed improvment -further treatment plan as per surgery -I think we can stop antibiotics now 2 weeks into treatment Diarrhea--imodium PRN, repeat C dif HypOkalemia--corrected Chronic combined systolic and diastolic heart failure--presently compensated continue Lasix, Aldactne, Coreg and Valsarta. Avoid fluid Diabetes-- blood sugars stable continue, SSI, and regular diet Paroxysmal atrial fibrillation--rate controlled, continue Coreg, Amiodarone, and Xarelto Can come off tele DVT: Xarelto Check labs on Wednesday Out of bed, medically ready for discharge Quality Stroke Does the patient have a stroke diagnosis?: No VTE Prior VTE?: No VTE Risk Level:: Medical - moderate - high VTE Device Contraindication: N/A - Device Ordered VTE Drug Contraindication: N/A - Med Ordered
[2021-06-12 11:16] LABS: Glucose, Whole Blood 147 mg/dL (60-115)
[2021-06-12 16:04] LABS: Glucose, Whole Blood 181 mg/dL (60-115)
--- NOTE | 2021-06-12 16:51 | PC.NURSE ---
Skin assessment completed today. Patient's pressure wound on left stump is healed but sill applying foam due to prosthetic not fitting properly. Lower back is dry, pink and healing. Triad cream still being applied for protection. Lateral and anterior surgical incision clean, dry and intact. SHY drain has sanguineous fluid in bulb.
[2021-06-12 20:27] LABS: Glucose, Whole Blood 150 mg/dL (60-115)
[2021-06-12] MEDS: traZODone HCL 50 MG TABLET PO (20:59)
[2021-06-12] MEDS: Zolpidem Tartrate 5 MG TABLET PO (20:59)
[2021-06-13] VITALS (9 sets, daily range): BP systolic 108–124; BP diastolic 61–73; PULSE 68–81; RESP 17–20; TEMP 36.4–36.8; O2SAT 96–97
[2021-06-13] MEDS: HYDROmorphone HCl 0.5 MG/0.5 ML SYRINGE IVPUSH ×5 (01:48→21:21)
[2021-06-13 02:48] LABS: CDiff Gene PCR NEGATIVE (Negative)
[2021-06-13 05:58] LABS: MANUAL DIFF FLAG NO
[2021-06-13 06:06] LABS: Basophils Percent Auto 0.2 % (0-2); Eosinophils Absolute Auto 0.3 X10*3/uL (0.0-0.4); Eosinophils Percent Auto 2.2 % (0-4); Hematocrit 35.2 % (42-52); Imm Gran Abs Auto 0.05 X10*3/uL (0.00-0.03); Imm Gran Pct Auto 0.4 % (0.0-0.4); Lymphocytes Absolute Auto 1.2 X10*3/uL (1.2-4.9); Lymphocytes Percent Auto 8.1 % (20-40); Mean Corpuscular HGB Conc 31.3 g/dl (31.0-36.0); Mean Corpuscular Volume 89.6 fL (80-98); Monocytes Absolute Auto 1.1 X10*3/uL (0.1-1.2); Monocytes Percent Auto 7.7 % (2-11); Neutrophils Absolute Auto 11.5 X10*3/uL (2.0-8.3); Neutrophils Percent Auto 81.4 % (45-73); Platelet Count 256 X10*3/uL (160-400); Red Blood Count 3.93 X10*6/uL (4.60-5.80); Red Cell Distribution Width 18.7 % (11.0-16.0); White Blood Count 14.1 X10*3/uL (4.8-10.8)
[2021-06-13 06:32] LABS: Anion Gap 12 (12-20); Blood Urea Nitrogen 11 mg/dL (9-16); Calcium 8.4 mg/dL (8.4-10.2); Carbon Dioxide 31 mmol/L (22-29); Chloride 100 mmol/L (96-108); Creatinine Clr Calc Pharmacy 130.7; Estimated Glomerular Filt Rate > 60; Glucose Fasting 143 mg/dL (60-99); Potassium 3.6 mmol/L (3.3-5.1); Sodium 139 mmol/L (135-145)
[2021-06-13] MEDS: 0.9 % Sodium Chloride Flush 3 ML SYRINGE IVFLUSH ×3 (07:22→21:24)
[2021-06-13] MEDS: Valsartan 80 MG TABLET PO (07:23)
[2021-06-13] MEDS: Rivaroxaban 20 MG TABLET PO (07:23)
[2021-06-13] MEDS: Spironolactone 25 MG TABLET PO (07:24)
[2021-06-13] MEDS: Multivitamin TABLET 1 TAB PO (07:24)
[2021-06-13] MEDS: gemfibroziL 600 MG TABLET PO ×2 (07:24→21:21)
[2021-06-13] MEDS: carvediloL 6.25 MG TABLET PO ×2 (07:25→21:21)
[2021-06-13] MEDS: Furosemide 40 MG TABLET PO ×2 (07:25→21:21)
[2021-06-13 07:35] LABS: Glucose, Whole Blood 142 mg/dL (60-115)
--- NOTE | 2021-06-13 08:04 | PM.PNGS ---
Subjective Subjective Date of Service: 06/13/21 Interval history: Patient feels improved this morning denies any nausea or vomiting overnight. Physical Exam Vital Signs: Vital Signs: Last Vital Signs Temp 97.6 F 06/13/21 07:16 Pulse 79 06/13/21 07:25 Resp 20 06/13/21 07:16 BP 109/61 06/13/21 07:25 Pulse Ox 96 06/13/21 07:16 Body Mass Index 27.7 Const: Other: Awake and alert, no acute distress Resp: Other: Breathing comfortably on room air, no respiratory distress GI: Other: Soft, nondistended, mild incisional tenderness. Dressings changed minimal serous discharge from the lateral wound. No discharge from the previous drain site. Clean dressings applied. Skin: Other: Warm, dry, no rash Procedures Date of Service Date of Service: 06/13/21 Progress Note: A&P Assessment and plan (1) Abdominal wall abscess: Status: Acute Assessment and Plan: Wounds are much improved with minimal discharge following removal of packing and drain. Clean dressings applied this morning. Patient encouraged to get out of bed and ambulate today, participate in physical therapy. He expressed understanding and agrees with the plan. Will plan for discharge early next week with VNA. Fall Risk Details Current Medications: Current Medications Generic Name Dose Route Start Last Admin Trade Name Freq PRN Reason Stop Dose Admin Carvedilol 6.25 mg 05/26/21 21:00 06/13/21 07:25 Carvedilol 6.25 Mg Tablet PO 6.25 mg BID KANCHAN Administration Protocol Furosemide 40 mg 05/26/21 21:00 06/13/21 07:25 Furosemide 40 Mg Tablet PO 40 mg BID KANCHAN Administration Protocol Gemfibrozil 600 mg 05/26/21 21:00 06/13/21 07:24 Gemfibrozil 600 Mg Tablet PO 600 mg BID KANCHAN Administration Hydromorphone HCl 0.5 mg 05/29/21 15:08 06/13/21 05:57 Hydromorphone Hcl 0.5 Mg/0.5 Ml Syringe IVPUSH 0.5 mg Q4H PRN Administration Pain, Severe (Pain Scale 7-10) Hydromorphone HCl 2 mg 05/29/21 15:08 06/04/21 10:08 Hydromorphone Hcl 2 Mg Tablet PO 2 mg Q4H PRN Administration Pain, Moderate (Pain Scale 4-6 Insulin Human Lispro 0 unit 05/27/21 11:30 06/13/21 07:19 Insulin Lispro 100 Unit/Ml 3 Ml Vial SUBCUT Not Given QIDACHS [facility] Protocol Loperamide HCl 2 mg 06/06/21 18:10 06/07/21 09:27 Loperamide Hcl Oral Liquid 2 Mg/15 Ml Liquid PO 2 mg Q6H PRN Administration Diarrhea Multivitamins/Vitamin C 1 tab 05/27/21 09:00 06/13/21 07:24 Multivitamin Tablet PO 1 tab DAILY KANCHAN Administration Ondansetron HCl 4 mg 05/27/21 11:16 06/02/21 08:54 Ondansetron Hcl 4 Mg/2 Ml Vial IVPUSH 4 mg Q8H PRN Administration Nausea and Vomiting Pharmacy Consult 1 each 05/26/21 12:20 Consult Rx Perform Med Rec MISCELLANE ONCE PRN Consult order Rivaroxaban 20 mg 06/03/21 09:00 06/13/21 07:23 Rivaroxaban 20 Mg Tablet PO 20 mg DAILY KANCHAN Administration Sodium Chloride 3 ml 05/27/21 00:00 06/13/21 07:22 0.9 % Sodium Chloride Flush 3 Ml Syringe IVFLUSH 3 ml QSHIFT KANCHAN Administration Spironolactone 25 mg 05/27/21 09:00 06/13/21 07:24 Spironolactone 25 Mg Tablet PO 25 mg DAILY KANCHAN Administration Protocol Trazodone HCl 50 mg 05/26/21 21:00 06/12/21 20:59 Trazodone Hcl 50 Mg Tablet PO 50 mg BEDTIME KANCHAN Administration Valsartan 80 mg 05/27/21 09:00 06/13/21 07:23 Valsartan 80 Mg Tablet PO 80 mg DAILY KANCHAN Administration Protocol Zolpidem Tartrate 5 mg 05/26/21 21:00 06/12/21 20:59 Zolpidem Tartrate 5 Mg Tablet PO 5 mg BEDTIME KANCHAN Administration Time Spent With Patient Time: Total time spent is greater than 50% in coordination of care (as documented) at patient's floor/unit and/or counseling patient: Time with patient: 15 - 24 minutes Quality Stroke Does the patient have a stroke diagnosis?: No VTE Prior VTE?: No VTE Risk Level:: Medical - moderate - high VTE Device Contraindication: N/A - Device Ordered VTE Drug Contraindication: N/A - Med Ordered
--- NOTE | 2021-06-13 11:18 | MHC.CLN ---
F/U PO INTAKE REMAINS 50-100% DIET RX: REGULAR-APPROPRIATE PT RECEVING BENJAMIN TO PROMOTE WOUND HEALING PT REFUSES ALL OTHER PO NUTRITION SUPPLEMENTS AT THIS TIME CONTINUE TO MONITOR PO INTAKE CLOSELY
[2021-06-13 11:30] LABS: Glucose, Whole Blood 143 mg/dL (60-115)
[2021-06-13 16:42] LABS: Glucose, Whole Blood 102 mg/dL (60-115)
--- NOTE | 2021-06-13 18:45 | HO.PM.IMPN ---
Subjective Subjective Date of Service: 07/01/21 Interval History: follow up Review of Systems Denies any chest pain or shortness of breath or abdominal pain or fever Denies any cough or phlegm. Physical Exam Vital Signs: Vital Signs: Last Vital Signs Temp 98.3 F 06/13/21 15:28 Pulse 81 06/13/21 15:28 Resp 18 06/13/21 15:28 BP 124/68 06/13/21 15:28 Pulse Ox 96 06/13/21 15:28 Body Mass Index 27.7 Physical exam: Constitutional: Not in acute distress Cvs: rrr, [id number] , no murmur res: clear to auscultation ,no rhonchii or wheezing abd: Non tender, surgical wound dressing in place, SHY drain is in place ext pulses present , no cyanosis neuro: axo3 , nonfocal. Objective Data Current Medications Generic Name Dose Route Start Last Admin Trade Name Freq PRN Reason Stop Dose Admin Carvedilol 6.25 mg 05/26/21 21:00 06/13/21 07:25 Carvedilol 6.25 Mg Tablet PO 6.25 mg BID KANCHAN Administration Protocol Furosemide 40 mg 05/26/21 21:00 06/13/21 07:25 Furosemide 40 Mg Tablet PO 40 mg BID KANCHAN Administration Protocol Gemfibrozil 600 mg 05/26/21 21:00 06/13/21 07:24 Gemfibrozil 600 Mg Tablet PO 600 mg BID KANCHAN Administration Hydromorphone HCl 0.5 mg 05/29/21 15:08 06/13/21 16:49 Hydromorphone Hcl 0.5 Mg/0.5 Ml Syringe IVPUSH 0.5 mg Q4H PRN Administration Pain, Severe (Pain Scale 7-10) Hydromorphone HCl 2 mg 05/29/21 15:08 06/04/21 10:08 Hydromorphone Hcl 2 Mg Tablet PO 2 mg Q4H PRN Administration Pain, Moderate (Pain Scale 4-6 Insulin Human Lispro 0 unit 05/27/21 11:30 06/13/21 16:44 Insulin Lispro 100 Unit/Ml 3 Ml Vial SUBCUT Not Given QIDACHS [facility] Protocol Loperamide HCl 2 mg 06/06/21 18:10 06/07/21 09:27 Loperamide Hcl Oral Liquid 2 Mg/15 Ml Liquid PO 2 mg Q6H PRN Administration Diarrhea Multivitamins/Vitamin C 1 tab 05/27/21 09:00 06/13/21 07:24 Multivitamin Tablet PO 1 tab DAILY KANCHAN Administration Ondansetron HCl 4 mg 05/27/21 11:16 06/02/21 08:54 Ondansetron Hcl 4 Mg/2 Ml Vial IVPUSH 4 mg Q8H PRN Administration Nausea and Vomiting Pharmacy Consult 1 each 05/26/21 12:20 Consult Rx Perform Med Rec MISCELLANE ONCE PRN Consult order Rivaroxaban 20 mg 06/03/21 09:00 06/13/21 07:23 Rivaroxaban 20 Mg Tablet PO 20 mg DAILY KANCHAN Administration Sodium Chloride 3 ml 05/27/21 00:00 06/13/21 16:49 0.9 % Sodium Chloride Flush 3 Ml Syringe IVFLUSH 3 ml QSHIFT KANCHAN Administration Spironolactone 25 mg 05/27/21 09:00 06/13/21 07:24 Spironolactone 25 Mg Tablet PO 25 mg DAILY KANCHAN Administration Protocol Trazodone HCl 50 mg 05/26/21 21:00 06/12/21 20:59 Trazodone Hcl 50 Mg Tablet PO 50 mg BEDTIME KANCHAN Administration Valsartan 80 mg 05/27/21 09:00 06/13/21 07:23 Valsartan 80 Mg Tablet PO 80 mg DAILY KANCHAN Administration Protocol Zolpidem Tartrate 5 mg 05/26/21 21:00 06/12/21 20:59 Zolpidem Tartrate 5 Mg Tablet PO 5 mg BEDTIME KANCHAN Administration Labs CBC & Chem 7: 06/16/21 08:16 06/13/21 05:21 Labs: Laboratory Results - last 24 hr 06/12/21 06/13/21 06/13/21 20:23 01:46 05:21 MCV 89.6 MCH 28.0 MCHC 31.3 RDW 18.7 H Plt Count 256 MPV 10.0 Immature Gran % (Auto) 0.4 Neut % (Auto) 81.4 H Lymph % (Auto) 8.1 L Williams % (Auto) 7.7 Eos % (Auto) 2.2 Baso % (Auto) 0.2 Lymph # (Auto) 1.2 Williams # (Auto) 1.1 Eos # (Auto) 0.3 Baso # (Auto) 0.0 Abs Immat Gran (auto) 0.05 H Absolute Neuts (auto) 11.5 H Absolute Nucleated RBC 0.000 Nucleated RBC % (auto) 0.0 Anion Gap Estim Creat Clear Calc Estimated GFR POC Glucose 150 H Fasting Glucose Calcium C. difficile Tox B Gene NEGATIVE 06/13/21 06/13/21 06/13/21 05:21 07:17 11:17 MCV MCH MCHC RDW Plt Count MPV Immature Gran % (Auto) Neut % (Auto) Lymph % (Auto) Williams % (Auto) Eos % (Auto) Baso % (Auto) Lymph # (Auto) Williams # (Auto) Eos # (Auto) Baso # (Auto) Abs Immat Gran (auto) Absolute Neuts (auto) Absolute Nucleated RBC Nucleated RBC % (auto) Anion Gap 12 Estim Creat Clear Calc 130.7 Estimated GFR > 60 POC Glucose 142 H 143 H Fasting Glucose 143 H Calcium 8.4 D C. difficile Tox B Gene 06/13/21 16:36 MCV MCH MCHC RDW Plt Count MPV Immature Gran % (Auto) Neut % (Auto) Lymph % (Auto) Williams % (Auto) Eos % (Auto) Baso % (Auto) Lymph # (Auto) Williams # (Auto) Eos # (Auto) Baso # (Auto) Abs Immat Gran (auto) Absolute Neuts (auto) Absolute Nucleated RBC Nucleated RBC % (auto) Anion Gap Estim Creat Clear Calc Estimated GFR POC Glucose 102 Fasting Glucose Calcium C. difficile Tox B Gene Assessment and Plan (1) Abdominal pain: Status: Resolved Assessment and Plan: 61 year old male with DM, AFIB, CAD, CAD, CM with combined systolic and diastolic Heart failure here with with recurrent abdominal wall abscess Abdominal wall abscess and retroperitoneal abscess - had? IR drain put in 05/28 but fell out next day -underwent Ex-lap 05/29 s/p washout of abdominal wall abscess -Has completed 2 weeks? of Zosyn -repeat CT 06/05 showed improvment -further treatment plan as per surgery -I think we can stop antibiotics now 2 weeks into treatment Diarrhea--imodium PRN, repeat C dif HypOkalemia--corrected Chronic combined systolic and diastolic heart failure--presently compensated ?continue Lasix, Aldactne, Coreg and Valsarta. Avoid fluid Diabetes-- blood sugars stable continue, SSI, and regular diet Paroxysmal atrial fibrillation--rate controlled, continue Coreg, Amiodarone, and? Xarelto Can come off tele DVT:? Xarelto Check labs on Wednesday Out of bed, medically ready for discharge Quality Stroke Does the patient have a stroke diagnosis?: No VTE Prior VTE?: No VTE Risk Level:: Medical - moderate - high VTE Device Contraindication: N/A - Device Ordered VTE Drug Contraindication: N/A - Med Ordered
[2021-06-13 21:04] LABS: Glucose, Whole Blood 120 mg/dL (60-115)
[2021-06-13] MEDS: traZODone HCL 50 MG TABLET PO (21:21)
[2021-06-13] MEDS: Zolpidem Tartrate 5 MG TABLET PO (21:21)
[2021-06-14] VITALS (12 sets, daily range): BP systolic 103–124; BP diastolic 56–73; PULSE 74–108; RESP 16–20; TEMP 36.1–36.6; O2SAT 93–96
[2021-06-14] MEDS: HYDROmorphone HCl 0.5 MG/0.5 ML SYRINGE IVPUSH ×4 (01:03→16:34)
[2021-06-14 06:11] LABS: MANUAL DIFF FLAG NO
[2021-06-14 06:21] LABS: Basophils Percent Auto 0.1 % (0-2); Eosinophils Absolute Auto 0.4 X10*3/uL (0.0-0.4); Eosinophils Percent Auto 2.7 % (0-4); Hematocrit 33.1 % (42-52); Hemoglobin 10.3 g/dl (14.0-18.0); Imm Gran Abs Auto 0.08 X10*3/uL (0.00-0.03); Imm Gran Pct Auto 0.6 % (0.0-0.4); Lymphocytes Absolute Auto 1.1 X10*3/uL (1.2-4.9); Lymphocytes Percent Auto 7.9 % (20-40); Mean Corpuscular HGB Conc 31.1 g/dl (31.0-36.0); Mean Corpuscular Hemoglobin 28.1 pg (27.0-33.0); Mean Corpuscular Volume 90.2 fL (80-98); Mean Platelet Volume 10.3 fL (9.4-12.4); Monocytes Absolute Auto 1.2 X10*3/uL (0.1-1.2); Monocytes Percent Auto 8.4 % (2-11); Neutrophils Percent Auto 80.3 % (45-73); Platelet Count 237 X10*3/uL (160-400); Red Blood Count 3.67 X10*6/uL (4.60-5.80); Red Cell Distribution Width 18.6 % (11.0-16.0); White Blood Count 13.8 X10*3/uL (4.8-10.8)
[2021-06-14 07:20] LABS: Glucose, Whole Blood 135 mg/dL (60-115)
[2021-06-14] MEDS: Spironolactone 25 MG TABLET PO (07:27)
[2021-06-14] MEDS: Multivitamin TABLET 1 TAB PO (07:27)
[2021-06-14] MEDS: Furosemide 40 MG TABLET PO ×2 (07:28→21:09)
[2021-06-14] MEDS: gemfibroziL 600 MG TABLET PO ×2 (07:28→21:09)
[2021-06-14] MEDS: Rivaroxaban 20 MG TABLET PO (07:28)
[2021-06-14] MEDS: Valsartan 80 MG TABLET PO (07:28)
[2021-06-14] MEDS: carvediloL 6.25 MG TABLET PO ×2 (07:28→21:10)
[2021-06-14] MEDS: 0.9 % Sodium Chloride Flush 3 ML SYRINGE IVFLUSH ×3 (07:29→21:12)
[2021-06-14] MEDS: Lidocaine 4 % Patch ADH..PATCH 1 PATCH TRANSDERMA (07:29)
--- NOTE | 2021-06-14 09:53 | P.PNIM_ITS ---
Subjective Subjective Date of Service: 06/14/21 Interval History: Seen in f/u for recurrent abdominal wall abscess, POD since May 29, better, continue to improve, has no new complaint Physical Exam Vital Signs: Vital Signs: Last Vital Signs Temp 97 F 06/14/21 06:56 Pulse 75 06/14/21 07:28 Resp 18 06/14/21 06:56 BP 106/56 L 06/14/21 07:28 Pulse Ox 94 06/14/21 06:56 Body Mass Index 27.7 Const: Other: Constitutional Awake and Alert, No apparent distress Neck Supple, No lymphadenopathy Cardiovascular RRR, No M/R/G, S1 S2, No S3 S4, No pedal edema Respiratory Lungs clear, No respiratory distress Gastrointestinal Non tender, surgical wound dressing in place, SHY drain is in place Skin No rash Neurological Alert & oriented x3 Psychological Appropriate affect Objective Data Current Medications Generic Name Dose Route Start Last Admin Trade Name Freq PRN Reason Stop Dose Admin Carvedilol 6.25 mg 05/26/21 21:00 06/14/21 07:28 Carvedilol 6.25 Mg Tablet PO 6.25 mg BID KANCHAN Administration Protocol Furosemide 40 mg 05/26/21 21:00 06/14/21 07:28 Furosemide 40 Mg Tablet PO 40 mg BID KANCHAN Administration Protocol Gemfibrozil 600 mg 05/26/21 21:00 06/14/21 07:28 Gemfibrozil 600 Mg Tablet PO 600 mg BID KANCHAN Administration Hydromorphone HCl 0.5 mg 05/29/21 15:08 06/14/21 06:05 Hydromorphone Hcl 0.5 Mg/0.5 Ml Syringe IVPUSH 0.5 mg Q4H PRN Administration Pain, Severe (Pain Scale 7-10) Hydromorphone HCl 2 mg 05/29/21 15:08 06/04/21 10:08 Hydromorphone Hcl 2 Mg Tablet PO 2 mg Q4H PRN Administration Pain, Moderate (Pain Scale 4-6 Insulin Human Lispro 0 unit 05/27/21 11:30 06/14/21 07:26 Insulin Lispro 100 Unit/Ml 3 Ml Vial SUBCUT Not Given QIDACHS [facility] Protocol Lidocaine 1 patch 06/14/21 09:00 06/14/21 07:29 Lidocaine 4 % Patch Adh..Patch TRANSDERMA 1 patch DAILY KANCHAN Administration Protocol Loperamide HCl 2 mg 06/06/21 18:10 06/07/21 09:27 Loperamide Hcl Oral Liquid 2 Mg/15 Ml Liquid PO 2 mg Q6H PRN Administration Diarrhea Multivitamins/Vitamin C 1 tab 05/27/21 09:00 06/14/21 07:27 Multivitamin Tablet PO 1 tab DAILY KANCHAN Administration Ondansetron HCl 4 mg 05/27/21 11:16 06/02/21 08:54 Ondansetron Hcl 4 Mg/2 Ml Vial IVPUSH 4 mg Q8H PRN Administration Nausea and Vomiting Pharmacy Consult 1 each 05/26/21 12:20 Consult Rx Perform Med Rec MISCELLANE ONCE PRN Consult order Rivaroxaban 20 mg 06/03/21 09:00 06/14/21 07:28 Rivaroxaban 20 Mg Tablet PO 20 mg DAILY KANCHAN Administration Sodium Chloride 3 ml 05/27/21 00:00 06/14/21 07:29 0.9 % Sodium Chloride Flush 3 Ml Syringe IVFLUSH 3 ml QSHIFT KANCHAN Administration Spironolactone 25 mg 05/27/21 09:00 06/14/21 07:27 Spironolactone 25 Mg Tablet PO 25 mg DAILY KANCHAN Administration Protocol Trazodone HCl 50 mg 05/26/21 21:00 06/13/21 21:21 Trazodone Hcl 50 Mg Tablet PO 50 mg BEDTIME KANCHAN Administration Valsartan 80 mg 05/27/21 09:00 06/14/21 07:28 Valsartan 80 Mg Tablet PO 80 mg DAILY KANCHAN Administration Protocol Zolpidem Tartrate 5 mg 05/26/21 21:00 06/13/21 21:21 Zolpidem Tartrate 5 Mg Tablet PO 5 mg BEDTIME KANCHAN Administration Labs CBC & Chem 7: 06/14/21 05:43 06/13/21 05:21 Labs: Laboratory Results - last 24 hr 06/13/21 06/13/21 06/13/21 11:17 16:36 20:48 MCV MCH MCHC RDW Plt Count MPV Immature Gran % (Auto) Neut % (Auto) Lymph % (Auto) [place] % (Auto) Eos % (Auto) Baso % (Auto) Lymph # (Auto) [place] # (Auto) Eos # (Auto) Baso # (Auto) Abs Immat Gran (auto) Absolute Neuts (auto) Absolute Nucleated RBC Nucleated RBC % (auto) POC Glucose 143 H 102 120 H 06/14/21 06/14/21 05:43 06:55 MCV 90.2 MCH 28.1 MCHC 31.1 RDW 18.6 H Plt Count 237 MPV 10.3 Immature Gran % (Auto) 0.6 H Neut % (Auto) 80.3 H Lymph % (Auto) 7.[address] [place] % (Auto) 8.4 Eos % (Auto) 2.7 Baso % (Auto) 0.1 Lymph # (Auto) 1.[address] # (Auto) 1.2 Eos # (Auto) 0.4 Baso # (Auto) 0.0 Abs Immat Gran (auto) 0.08 H Absolute Neuts (auto) 11.0 H Absolute Nucleated RBC 0.000 Nucleated RBC % (auto) 0.0 POC Glucose 135 H Assessment and Plan (1) Abdominal wall abscess: Status: Acute Assessment and Plan: 61 year old male with DM, AFIB, CAD, CAD, CM with combined systolic and diastolic Heart failure here with with recurrent abdominal wall abscess Abdominal wall abscess and retroperitoneal abscess - had? IR drain put in 05/28 but fell out next day -underwent Ex-lap 05/29 s/p washout of abdominal wall abscess -Has completed 2 weeks? of Zosyn -repeat CT 06/05 showed improvment -further treatment plan as per surgery -I think we can stop antibiotics now 2 weeks into treatment -WBC is going up, keep on it Diarrhea--imodium PRN, repeat C dif HypOkalemia--corrected Chronic combined systolic and diastolic heart failure--presently compensated ?continue Lasix, Aldactne, Coreg and Valsarta. Avoid fluid Diabetes-- blood sugars stable continue, SSI, and regular diet Paroxysmal atrial fibrillation--rate controlled, continue Coreg, Amiodarone, and? Xarelto Can come off tele DVT:? Xarelto Check labs on Wednesday Out of bed, medically ready for discharge Quality Stroke Does the patient have a stroke diagnosis?: No VTE Prior VTE?: No VTE Risk Level:: Medical - moderate - high VTE Device Contraindication: N/A - Device Ordered VTE Drug Contraindication: N/A - Med Ordered
[2021-06-14 11:09] LABS: Glucose, Whole Blood 148 mg/dL (60-115)
[2021-06-14 16:09] LABS: Glucose, Whole Blood 148 mg/dL (60-115)
--- NOTE | 2021-06-14 16:15 | PM.PNGS ---
Subjective Subjective Date of Service: 06/14/21 Interval history: Reports intermittent mild nausea and incisional pain. Feels that he is improving slowly. He has been up ambulating. Occasional loose stool. Physical Exam Vital Signs: Vital Signs: Last Vital Signs Temp 97.8 F 06/14/21 15:46 Pulse 108 H 06/14/21 15:46 Resp 18 06/14/21 15:46 BP 121/70 06/14/21 15:46 Pulse Ox 94 06/14/21 15:46 Body Mass Index 27.7 Const: General: comfortable, alert and awake Resp: Effort & Inspection: normal respiratory effort Auscultation: clear to auscultation bilaterally Cardio: Rate: regular rate Rhythm: regular rhythm GI: Other: Soft, nondistended. Incisions right lower quadrant and flank are generally clean. Small amount of serosanguineous drainage from midportion of flank incision. No significant tenderness. Skin: Other: Pale, warm and dry Procedures Date of Service Date of Service: 06/14/21 Progress Note: A&P Assessment and plan (1) Abdominal wall abscess: Status: Acute (2) Diarrhea: Status: Acute Assessment and Plan: C diff negative (3) Diabetes mellitus: Status: Acute Assessment and Plan: Continued slow improvement. Minimal drainage from flank incision. Tolerating solid diet. Blood sugars in good control. Continue ambulation. Repeat CBC. If improvement continues, anticipate discharge in about 48 hours. Fall Risk Details Current Medications: Current Medications Generic Name Dose Route Start Last Admin Trade Name Freq PRN Reason Stop Dose Admin Carvedilol 6.25 mg 05/26/21 21:00 06/14/21 07:28 Carvedilol 6.25 Mg Tablet PO 6.25 mg BID KANCHAN Administration Protocol Furosemide 40 mg 05/26/21 21:00 06/14/21 07:28 Furosemide 40 Mg Tablet PO 40 mg BID KANCHAN Administration Protocol Gemfibrozil 600 mg 05/26/21 21:00 06/14/21 07:28 Gemfibrozil 600 Mg Tablet PO 600 mg BID KANCHAN Administration Hydromorphone HCl 0.5 mg 05/29/21 15:08 06/14/21 11:18 Hydromorphone Hcl 0.5 Mg/0.5 Ml Syringe IVPUSH 0.5 mg Q4H PRN Administration Pain, Severe (Pain Scale 7-10) Hydromorphone HCl 2 mg 05/29/21 15:08 06/04/21 10:08 Hydromorphone Hcl 2 Mg Tablet PO 2 mg Q4H PRN Administration Pain, Moderate (Pain Scale 4-6 Insulin Human Lispro 0 unit 05/27/21 11:30 06/14/21 11:18 Insulin Lispro 100 Unit/Ml 3 Ml Vial SUBCUT Not Given [facility] Protocol Lidocaine 1 patch 06/14/21 09:00 06/14/21 07:29 Lidocaine 4 % Patch Adh..Patch TRANSDERMA 1 patch DAILY KANCHAN Administration Protocol Loperamide HCl 2 mg 06/06/21 18:10 06/07/21 09:27 Loperamide Hcl Oral Liquid 2 Mg/15 Ml Liquid PO 2 mg Q6H PRN Administration Diarrhea Multivitamins/Vitamin C 1 tab 05/27/21 09:00 06/14/21 07:27 Multivitamin Tablet PO 1 tab DAILY KANCHAN Administration Ondansetron HCl 4 mg 05/27/21 11:16 06/02/21 08:54 Ondansetron Hcl 4 Mg/2 Ml Vial IVPUSH 4 mg Q8H PRN Administration Nausea and Vomiting Pharmacy Consult 1 each 05/26/21 12:20 Consult Rx Perform Med Rec MISCELLANE ONCE PRN Consult order Rivaroxaban 20 mg 06/03/21 09:00 06/14/21 07:28 Rivaroxaban 20 Mg Tablet PO 20 mg DAILY KANCHAN Administration Sodium Chloride 3 ml 05/27/21 00:00 06/14/21 07:29 0.9 % Sodium Chloride Flush 3 Ml Syringe IVFLUSH 3 ml QSHIFT KANCHAN Administration Spironolactone 25 mg 05/27/21 09:00 06/14/21 07:27 Spironolactone 25 Mg Tablet PO 25 mg DAILY KANCHAN Administration Protocol Trazodone HCl 50 mg 05/26/21 21:00 06/13/21 21:21 Trazodone Hcl 50 Mg Tablet PO 50 mg BEDTIME KANCHAN Administration Valsartan 80 mg 05/27/21 09:00 06/14/21 07:28 Valsartan 80 Mg Tablet PO 80 mg DAILY KANCHAN Administration Protocol Zolpidem Tartrate 5 mg 05/26/21 21:00 06/13/21 21:21 Zolpidem Tartrate 5 Mg Tablet PO 5 mg BEDTIME KANCHAN Administration Time Spent With Patient Time: Total time spent is greater than 50% in coordination of care (as documented) at patient's floor/unit and/or counseling patient: Time with patient: 15 - 24 minutes Quality Stroke Does the patient have a stroke diagnosis?: No VTE Prior VTE?: No VTE Risk Level:: Medical - moderate - high VTE Device Contraindication: N/A - Device Ordered VTE Drug Contraindication: N/A - Med Ordered
[2021-06-14 21:03] LABS: Glucose, Whole Blood 129 mg/dL (60-115)
[2021-06-14] MEDS: Zolpidem Tartrate 5 MG TABLET PO (21:09)
[2021-06-14] MEDS: traZODone HCL 50 MG TABLET PO (21:09)
[2021-06-14] MEDS: oxyCODONE HCl Immed Release 5 MG TABLET PO (21:10)
[2021-06-15] VITALS (9 sets, daily range): BP systolic 100–128; BP diastolic 53–72; PULSE 73–110; RESP 18–20; TEMP 36.1–36.6; O2SAT 90–95
[2021-06-15] MEDS: oxyCODONE HCl Immed Release 5 MG TABLET PO ×2 (05:30→13:40)
[2021-06-15 07:10] LABS: Glucose, Whole Blood 113 mg/dL (60-115)
--- NOTE | 2021-06-15 07:54 | HO.PM.IMPN ---
Subjective Subjective Date of Service: 06/15/21 Interval History: Seen in f/u for recurrent abdominal wall abscess, POD since May 29, better, continue to improve, has no new complaint Review of Systems Denies any chest pain or shortness of breath or abdominal pain or fever Denies any cough or phlegm. Physical Exam Vital Signs: Vital Signs: Last Vital Signs Temp 97 F 06/15/21 07:01 Pulse 76 06/15/21 07:01 Resp 18 06/15/21 07:01 BP 112/56 L 06/15/21 07:01 Pulse Ox 95 06/15/21 07:01 Body Mass Index 27.7 Const: Other: Constitutional Awake and Alert, No apparent distress Neck Supple, No lymphadenopathy Cardiovascular RRR, No M/R/G, S1 S2, No S3 S4, No pedal edema Respiratory Lungs clear, No respiratory distress Gastrointestinal Non tender, surgical wound dressing in place, Skin No rash Neurological Alert & oriented x3 Psychological Appropriate affect Objective Data Current Medications Generic Name Dose Route Start Last Admin Trade Name Silvianoq PRN Reason Stop Dose Admin Carvedilol 6.25 mg 05/26/21 21:00 06/14/21 21:10 Carvedilol 6.25 Mg Tablet PO 6.25 mg BID KANCHAN Administration Protocol Furosemide 40 mg 05/26/21 21:00 06/14/21 21:09 Furosemide 40 Mg Tablet PO 40 mg BID KANCHAN Administration Protocol Gemfibrozil 600 mg 05/26/21 21:00 06/14/21 21:09 Gemfibrozil 600 Mg Tablet PO 600 mg BID KANCHAN Administration Insulin Human Lispro 0 unit 05/27/21 11:30 06/14/21 22:06 Insulin Lispro 100 Unit/Ml 3 Ml Vial SUBCUT Not Given QIDACHS [facility] Protocol Lidocaine 1 patch 06/14/21 09:00 06/14/21 07:29 Lidocaine 4 % Patch Adh..Patch TRANSDERMA 1 patch DAILY KANCHAN Administration Protocol Loperamide HCl 2 mg 06/06/21 18:10 06/07/21 09:27 Loperamide Hcl Oral Liquid 2 Mg/15 Ml Liquid PO 2 mg Q6H PRN Administration Diarrhea Multivitamins/Vitamin C 1 tab 05/27/21 09:00 06/14/21 07:27 Multivitamin Tablet PO 1 tab DAILY KANCHAN Administration Ondansetron HCl 4 mg 05/27/21 11:16 06/02/21 08:54 Ondansetron Hcl 4 Mg/2 Ml Vial IVPUSH 4 mg Q8H PRN Administration Nausea and Vomiting Oxycodone HCl 5 mg 06/14/21 16:45 06/15/21 05:30 Oxycodone Hcl Immed Release 5 Mg Tablet PO 5 mg Q6H PRN Administration Pain, Severe (Pain Scale 7-10) Pharmacy Consult 1 each 05/26/21 12:20 Consult Rx Perform Med Rec MISCELLANE ONCE PRN Consult order Rivaroxaban 20 mg 06/03/21 09:00 06/14/21 07:28 Rivaroxaban 20 Mg Tablet PO 20 mg DAILY KANCHAN Administration Sodium Chloride 3 ml 05/27/21 00:00 06/14/21 21:12 0.9 % Sodium Chloride Flush 3 Ml Syringe IVFLUSH 3 ml QSHIFT KANCHAN Administration Spironolactone 25 mg 05/27/21 09:00 06/14/21 07:27 Spironolactone 25 Mg Tablet PO 25 mg DAILY KANCHAN Administration Protocol Trazodone HCl 50 mg 05/26/21 21:00 06/14/21 21:09 Trazodone Hcl 50 Mg Tablet PO 50 mg BEDTIME KANCHAN Administration Valsartan 80 mg 05/27/21 09:00 06/14/21 07:28 Valsartan 80 Mg Tablet PO 80 mg DAILY KANCHAN Administration Protocol Zolpidem Tartrate 5 mg 05/26/21 21:00 06/14/21 21:09 Zolpidem Tartrate 5 Mg Tablet PO 5 mg BEDTIME KANCHAN Administration Labs CBC & Chem 7: 06/14/21 05:43 06/13/21 05:21 Labs: Laboratory Results - last 24 hr 06/14/21 06/14/21 06/14/21 11:05 16:05 20:58 POC Glucose 148 H 148 H 129 H 06/15/21 07:01 POC Glucose 113 Assessment and Plan (1) Abdominal wall abscess: Status: Acute Assessment and Plan: 61 year old male with DM, AFIB, CAD, CAD, CM with combined systolic and diastolic Heart failure here with with recurrent abdominal wall abscess Abdominal wall abscess and retroperitoneal abscess - had? IR drain put in 05/28 but fell out next day -underwent Ex-lap 05/29 s/p washout of abdominal wall abscess -Has completed 2 weeks? of Zosyn -repeat CT 06/05 showed improvment -further treatment plan as per surgery -I think we can stop antibiotics now 2 weeks into treatment -WBC is going up, keep on it, recheck tomorrow Diarrhea--imodium PRN, repeat C dif HypOkalemia--corrected Chronic combined systolic and diastolic heart failure--presently compensated ?continue Lasix, Aldactne, Coreg and Valsarta. Avoid fluid Diabetes-- blood sugars stable continue, SSI, and regular diabetic diet Paroxysmal atrial fibrillation--rate controlled, continue Coreg, Amiodarone, and? Xarelto Can come off tele DVT:? Xarelto Check labs on Wednesday Out of bed, medically ready for discharge Quality Stroke Does the patient have a stroke diagnosis?: No VTE Prior VTE?: No VTE Risk Level:: Medical - moderate - high VTE Device Contraindication: N/A - Device Ordered VTE Drug Contraindication: N/A - Med Ordered
[2021-06-15] MEDS: Lidocaine 4 % Patch ADH..PATCH 1 PATCH TRANSDERMA (08:10)
[2021-06-15] MEDS: Rivaroxaban 20 MG TABLET PO (08:10)
[2021-06-15] MEDS: Valsartan 80 MG TABLET PO (08:11)
[2021-06-15] MEDS: Spironolactone 25 MG TABLET PO (08:11)
[2021-06-15] MEDS: Multivitamin TABLET 1 TAB PO (08:11)
[2021-06-15] MEDS: carvediloL 6.25 MG TABLET PO ×2 (08:11→21:01)
[2021-06-15] MEDS: gemfibroziL 600 MG TABLET PO ×2 (08:12→21:01)
[2021-06-15] MEDS: 0.9 % Sodium Chloride Flush 3 ML SYRINGE IVFLUSH ×2 (08:12→23:46)
[2021-06-15] MEDS: Furosemide 40 MG TABLET PO ×2 (08:12→21:01)
[2021-06-15 11:12] LABS: Glucose, Whole Blood 103 mg/dL (60-115)
--- NOTE | 2021-06-15 12:00 | P.PNGS_ITS ---
Subjective Subjective Date of Service: 06/15/21 Interval history: He reports that he does not feel quite as well today. Pain medication was changed from IV to p.o. still having intermittent nausea. Does not want to get out of bed. Physical Exam Vital Signs: Vital Signs: Last Vital Signs Temp 98 F 06/15/21 10:59 Pulse 107 H 06/15/21 10:59 Resp 20 06/15/21 10:59 BP 128/70 06/15/21 10:59 Pulse Ox 95 06/15/21 10:59 Body Mass Index 27.7 Const: General: cooperative, comfortable and no acute distress GI: Other: Slightly round, soft, bowel sounds active. Right lower quadrant and right flank incisions are clean. There is a small amount of serosanguineous drainage present on the right flank dressing, but no active drainage noted Psych: Mental Status: mental status grossly normal Procedures Date of Service Date of Service: 06/15/21 Progress Note: A&P Assessment and plan (1) Abdominal wall abscess: Status: Acute Assessment and Plan: 61-year-old male with history of complicated perforated appendicitis presenting with recurrent abscess retroperitoneum and abdominal wall now status post incision and drainage. He is improving slowly. Will adjust pain medication. Anticipate discharge 24-48 hours. Fall Risk Details Current Medications: Current Medications Generic Name Dose Route Start Last Admin Trade Name Silvianoq PRN Reason Stop Dose Admin Carvedilol 6.25 mg 05/26/21 21:00 06/15/21 08:11 Carvedilol 6.25 Mg Tablet PO 6.25 mg BID KANCHAN Administration Protocol Erythromycin 1 cm 06/15/21 21:00 Erythromycin Base 0.5% Oph Oin 1 Gm Tube EYE-RIGHT 06/16/21 21:01 BID KANCHAN Furosemide 40 mg 05/26/21 21:00 06/15/21 08:12 Furosemide 40 Mg Tablet PO 40 mg BID KANCHAN Administration Protocol Gemfibrozil 600 mg 05/26/21 21:00 06/15/21 08:12 Gemfibrozil 600 Mg Tablet PO 600 mg BID KANCHAN Administration Insulin Human Lispro 0 unit 05/27/21 11:30 06/15/21 13:06 Insulin Lispro 100 Unit/Ml 3 Ml Vial SUBCUT Not Given QIDACHS [facility] Protocol Lidocaine 1 patch 06/14/21 09:00 06/15/21 08:10 Lidocaine 4 % Patch Adh..Patch TRANSDERMA 1 patch DAILY KANCHAN Administration Protocol Loperamide HCl 2 mg 06/06/21 18:10 06/07/21 09:27 Loperamide Hcl Oral Liquid 2 Mg/15 Ml Liquid PO 2 mg Q6H PRN Administration Diarrhea Multivitamins/Vitamin C 1 tab 05/27/21 09:00 06/15/21 08:11 Multivitamin Tablet PO 1 tab DAILY KANCHAN Administration Nystatin 1 appl 06/15/21 21:00 Nystatin Powder 15 Gm Bottle TOPICAL BID KANCHAN Protocol Ondansetron HCl 4 mg 05/27/21 11:16 06/02/21 08:54 Ondansetron Hcl 4 Mg/2 Ml Vial IVPUSH 4 mg Q8H PRN Administration Nausea and Vomiting Oxycodone HCl 5 mg 06/14/21 16:45 06/15/21 13:40 Oxycodone Hcl Immed Release 5 Mg Tablet PO 5 mg Q6H PRN Administration Pain, Severe (Pain Scale 7-10) Pharmacy Consult 1 each 05/26/21 12:20 Consult Rx Perform Med Rec MISCELLANE ONCE PRN Consult order Rivaroxaban 20 mg 06/03/21 09:00 06/15/21 08:10 Rivaroxaban 20 Mg Tablet PO 20 mg DAILY KANCHAN Administration Sodium Chloride 3 ml 05/27/21 00:00 06/15/21 08:12 0.9 % Sodium Chloride Flush 3 Ml Syringe IVFLUSH 3 ml QSHIFT KANCHAN Administration Spironolactone 25 mg 05/27/21 09:00 06/15/21 08:11 Spironolactone 25 Mg Tablet PO 25 mg DAILY KANCHAN Administration Protocol Trazodone HCl 50 mg 05/26/21 21:00 06/14/21 21:09 Trazodone Hcl 50 Mg Tablet PO 50 mg BEDTIME KANCHAN Administration Valsartan 80 mg 05/27/21 09:00 06/15/21 08:11 Valsartan 80 Mg Tablet PO 80 mg DAILY KANCHAN Administration Protocol Zolpidem Tartrate 5 mg 05/26/21 21:00 06/14/21 21:09 Zolpidem Tartrate 5 Mg Tablet PO 5 mg BEDTIME KANCHAN Administration Time Spent With Patient Time: Total time spent is greater than 50% in coordination of care (as documented) at patient's floor/unit and/or counseling patient: Time with patient: less than 15 minutes Quality Stroke Does the patient have a stroke diagnosis?: No VTE Prior VTE?: No VTE Risk Level:: Medical - moderate - high VTE Device Contraindication: N/A - Device Ordered VTE Drug Contraindication: N/A - Med Ordered
[2021-06-15 16:24] LABS: Glucose, Whole Blood 89 mg/dL (60-115)
[2021-06-15] MEDS: oxyCODONE HCl Immed Release 5 MG TABLET 10 MG PO (19:44)
[2021-06-15 20:30] LABS: Glucose, Whole Blood 147 mg/dL (60-115)
[2021-06-15] MEDS: Erythromycin Base 0.5% Oph Oin 1 GM TUBE 1 CM EYE-RIGHT (20:58)
[2021-06-15] MEDS: Zolpidem Tartrate 5 MG TABLET PO (20:58)
[2021-06-15] MEDS: traZODone HCL 50 MG TABLET PO (20:58)
[2021-06-15] MEDS: Nystatin Powder 15 GM BOTTLE 1 APPL TOPICAL (21:09)
[2021-06-16] MEDS: oxyCODONE HCl Immed Release 5 MG TABLET 10 MG PO (02:36)
[2021-06-16 04:00] VITALS: BP 108/56; PULSE 79; RESP 18; TEMP 36.3; O2SAT 93
[2021-06-16 07:10] VITALS: BP 110/59; PULSE 76; RESP 20; TEMP 36.4; O2SAT 94
[2021-06-16 07:23] LABS: Glucose, Whole Blood 114 mg/dL (60-115)
[2021-06-16 08:31] VITALS: BP 110/59; PULSE 76
[2021-06-16] MEDS: gemfibroziL 600 MG TABLET PO (08:31)
[2021-06-16] MEDS: Multivitamin TABLET 1 TAB PO (08:31)
[2021-06-16] MEDS: carvediloL 6.25 MG TABLET PO (08:31)
[2021-06-16] MEDS: Rivaroxaban 20 MG TABLET PO (08:31)
[2021-06-16] MEDS: Spironolactone 25 MG TABLET PO (08:31)
[2021-06-16] MEDS: 0.9 % Sodium Chloride Flush 3 ML SYRINGE IVFLUSH (08:31)
[2021-06-16] MEDS: Valsartan 80 MG TABLET PO (08:31)
[2021-06-16] MEDS: Erythromycin Base 0.5% Oph Oin 1 GM TUBE 1 CM EYE-RIGHT (08:32)
[2021-06-16] MEDS: Furosemide 40 MG TABLET PO (08:32)
[2021-06-16] MEDS: Nystatin Powder 15 GM BOTTLE 1 APPL TOPICAL (08:36)
[2021-06-16 08:54] LABS: Mean Corpuscular HGB Conc 31.3 g/dl (31.0-36.0); Mean Corpuscular Volume 89.6 fL (80-98); Mean Platelet Volume 9.7 fL (9.4-12.4); Platelet Count 249 X10*3/uL (160-400); Red Blood Count 3.57 X10*6/uL (4.60-5.80); Red Cell Distribution Width 17.9 % (11.0-16.0); White Blood Count 11.3 X10*3/uL (4.8-10.8)
--- NOTE | 2021-06-16 10:26 | MHC.CM.PN ---
pt dcd today hvns notified of dc imm uodated
[2021-06-16 11:05] LABS: Glucose, Whole Blood 134 mg/dL (60-115)
--- NOTE | 2021-06-16 11:36 | P.PNIM_ITS ---
Subjective Subjective Date of Service: 06/16/21 Interval History: Seen in f/u for recurrent abdominal wall abscess, POD since May 29, better, continue to improve, no new issues Review of Systems Denies any chest pain or shortness of breath or abdominal pain or fever Denies any cough or phlegm. Physical Exam Vital Signs: Vital Signs: Last Vital Signs Temp 97.6 F 06/16/21 07:10 Pulse 76 06/16/21 08:31 Resp 20 06/16/21 07:10 BP 110/59 L 06/16/21 08:31 Pulse Ox 94 06/16/21 07:10 Body Mass Index 27.7 Const: Other: Constitutional Awake and Alert, No apparent distress Neck Supple, No lymphadenopathy Cardiovascular RRR, No M/R/G, S1 S2, No S3 S4, No pedal edema Respiratory Lungs clear, No respiratory distress Gastrointestinal Non tender, surgical wound dressing in place, Skin No rash Neurological Alert & oriented x3 Psychological Appropriate affect Objective Data Current Medications Generic Name Dose Route Start Last Admin Trade Name Freq PRN Reason Stop Dose Admin Carvedilol 6.25 mg 05/26/21 21:00 06/16/21 08:31 Carvedilol 6.25 Mg Tablet PO 6.25 mg BID KANCHAN Administration Protocol Erythromycin 1 cm 06/15/21 21:00 06/16/21 08:32 Erythromycin Base 0.5% Oph Oin 1 Gm Tube EYE-RIGHT 06/16/21 21:01 1 cm BID KANCHAN Administration Furosemide 40 mg 05/26/21 21:00 06/16/21 08:32 Furosemide 40 Mg Tablet PO 40 mg BID KANCHAN Administration Protocol Gemfibrozil 600 mg 05/26/21 21:00 06/16/21 08:31 Gemfibrozil 600 Mg Tablet PO 600 mg BID KANCHAN Administration Insulin Human Lispro 0 unit 05/27/21 11:30 06/16/21 11:09 Insulin Lispro 100 Unit/Ml 3 Ml Vial SUBCUT Not Given QIDACHS [facility] Protocol Lidocaine 1 patch 06/14/21 09:00 06/16/21 08:32 Lidocaine 4 % Patch Adh..Patch TRANSDERMA Not Given DAILY [facility] Protocol Loperamide HCl 2 mg 06/06/21 18:10 06/07/21 09:27 Loperamide Hcl Oral Liquid 2 Mg/15 Ml Liquid PO 2 mg Q6H PRN Administration Diarrhea Multivitamins/Vitamin C 1 tab 05/27/21 09:00 06/16/21 08:31 Multivitamin Tablet PO 1 tab DAILY KANCHAN Administration Nystatin 1 appl 06/15/21 21:00 06/16/21 08:36 Nystatin Powder 15 Gm Bottle TOPICAL 1 appl BID KANCHAN Administration Protocol Ondansetron HCl 4 mg 05/27/21 11:16 06/02/21 08:54 Ondansetron Hcl 4 Mg/2 Ml Vial IVPUSH 4 mg Q8H PRN Administration Nausea and Vomiting Oxycodone HCl 10 mg 06/15/21 15:01 06/16/21 02:36 Oxycodone Hcl Immed Release 5 Mg Tablet PO 10 mg Q6H PRN Administration Pain, Severe (Pain Scale 7-10) Pharmacy Consult 1 each 05/26/21 12:20 Consult Rx Perform Med Rec MISCELLANE ONCE PRN Consult order Rivaroxaban 20 mg 06/03/21 09:00 06/16/21 08:31 Rivaroxaban 20 Mg Tablet PO 20 mg DAILY KANCHAN Administration Sodium Chloride 3 ml 05/27/21 00:00 06/16/21 08:31 0.9 % Sodium Chloride Flush 3 Ml Syringe IVFLUSH 3 ml QSHIFT KANCHAN Administration Spironolactone 25 mg 05/27/21 09:00 06/16/21 08:31 Spironolactone 25 Mg Tablet PO 25 mg DAILY KANCHAN Administration Protocol Trazodone HCl 50 mg 05/26/21 21:00 06/15/21 20:58 Trazodone Hcl 50 Mg Tablet PO 50 mg BEDTIME KANCHAN Administration Valsartan 80 mg 05/27/21 09:00 06/16/21 08:31 Valsartan 80 Mg Tablet PO 80 mg DAILY KANCHAN Administration Protocol Labs CBC & Chem 7: 06/16/21 08:16 06/13/21 05:21 Assessment and Plan (1) Abdominal wall abscess: Status: Acute Assessment and Plan: 61 year old male with DM, AFIB, CAD, CAD, CM with combined systolic and diastolic Heart failure here with with recurrent abdominal wall abscess Abdominal wall abscess and retroperitoneal abscess - had? IR drain put in 05/28 but fell out next day -underwent Ex-lap 05/29 s/p washout of abdominal wall abscess -Has completed 2 weeks? of Zosyn -repeat CT 06/05 showed improvment -further treatment plan as per surgery -I think we can stop antibiotics now 2 weeks into treatment -WBC is trending down Diarrhea--imodium PRN, repeat C dif HypOkalemia--corrected Chronic combined systolic and diastolic heart failure--presently compensated ?continue Lasix, Aldactne, Coreg and Valsarta. Avoid fluid Diabetes-- blood sugars stable continue, SSI, and regular diabetic diet Paroxysmal atrial fibrillation--rate controlled, continue Coreg, Amiodarone, and? Xarelto Can come off tele DVT:? Xarelto Check labs on Wednesday Out of bed, medically ready for discharge Quality Stroke Does the patient have a stroke diagnosis?: No VTE Prior VTE?: No VTE Risk Level:: Medical - moderate - high VTE Device Contraindication: N/A - Device Ordered VTE Drug Contraindication: N/A - Med Ordered
[2021-06-16 11:37] VITALS: BP 113/59; PULSE 107; RESP 18; TEMP 36.8; O2SAT 94
--- NOTE | 2021-06-16 13:04 | PM.DS ---
DS: Providers Provider Date of Service: 06/16/21 <Ashlyn Sanchez PA-C - Last Filed: 06/19/21 13:29> Date of admission: 05/26/21 17:10 <AREN Nina Last Filed: 06/19/21 13:29> Primary care physician: Connor Mcdaniel MD <Ashlyn Sanchez PA-C - Last Filed: 06/19/21 13:29> Consults: 05/26/21 14:34 Consult to General Surgery Stat Consulting Provider: Connor Arthur Reason for consultation: recurrent abdominal fluid collection Has provider been notified: Yes 05/26/21 17:12 Consult to Hospitalist Routine Consulting Provider: Hospitalist Reason For Exam: afib, CHF <AREN Nina Last Filed: 06/19/21 13:29> DS: Diagnosis Discharge Diagnosis (1) Abdominal wall abscess: Status: Acute <AREN Nina Last Filed: 06/19/21 13:29> DS: Medications Discharge Medications Home Medications: Home Medications Medication Instructions Recorded Confirmed multivitamin 1 tab PO DAILY 04/02/21 05/26/21 amiodarone 200 mg tablet 200 mg PO DAILY 05/07/21 05/26/21 furosemide 40 mg tablet 40 mg PO BID tab 05/07/21 05/26/21 gemfibrozil 600 mg tablet 600 mg PO BID 05/07/21 05/26/21 spironolactone 25 mg tablet 25 mg PO DAILY tab 05/07/21 05/26/21 trazodone 50 mg tablet 50 mg PO BEDTIME 05/07/21 05/26/21 zolpidem 10 mg tablet 10 mg PO BEDTIME 05/07/21 05/26/21 ondansetron HCl 4 mg tablet 1 tab PO Q8H PRN 05/26/21 05/26/21 valsartan 80 mg tablet 80 mg PO DAILY 05/26/21 05/26/21 Previous Rx's Medication Instructions Recorded carvedilol 6.25 mg tablet 6.25 mg PO BID #60 tab 04/10/21 rivaroxaban 20 mg tablet (Xarelto) 20 mg PO DAILY #30 tab 04/10/21 oxycodone 5 mg tablet 5 mg PO Q4H PRN #30 tab 06/16/21 <Ashlyn Sanchez PA-C - Last Filed: 06/19/21 13:29> DS: Summary Hospital Course Hospital Course: BRIEF HPI: Denzel Hammond JR is a 61 year old male who is well known to the surgical service, here in the ED for worsening swelling and drainage from his right flank area. His current illness dates all the way back to January 2019 when he initially presented with perforated appendicitis with RLQ abscess. He eventually underwent ileocecal resection. He has since been having recurrent abscesses on the right gutter as well as the abdominal wall and he has undergone CT drainage multiple times with last drainage Dec 2020. He however has noticed worsening swelling of the abdominal wall on the right lower quadrant and right flank the past few days with a lot of drainage from his old incision and therefore came to the ED. HOSPITAL COURSE: He was admitted to the surgical service and started on IV zosyn for the right flank abscess recurrence with plan for IR drainage. His xarelto was held. Hospitalist consult was requested for his multiple medical problems. IR drainage was performed on 05/28/21 and a loreta drain was placed. This unfortunately fell out during dressing changes the following morning and it was therefore recommended to proceed abdominal wall washout as well as an exploratory laparotomy to evaluate for possible enterocutaneous fistula, with possible bowel resection.? On 05/29/21, Exploratory laparotomy, washout of abdominal wall abscess excision of retroperitoneal/cutaneous abscess tract, drainage of retroperitoneal abscess cavity. He was found to have a large abscess cavity within the subcutaneous tissue and muscle layers of the right flank without any enterocutaneous fistula was identified. A SHY drain was placed intraoperatively. He tolerated the procedure well. The patient had an uncomplicated but slow recovery course. He had difficulty with nausea post operatively which gradually improved and his appetite and PO increased. His WBC did trend up initially post operatively and his IV antibiotics were therefore continued for two weeks total. His xarelto was resumed. His SHY output was purulent appearing but was not feculent. The abscess site was reassessed with CT scan abd/pelvis which showed improvement. Wound care was continued daily and his wound janette were removed. SHY drain was removed on 06/11/21. He continued to participate with PT. On the day of discharge, the patient was tolerating a solid diet, he had adequate pain control, his wounds were clean with very little drainage. He felt well and was clinically appearing well. He was discharged to home on 06/16/21 in stable condition with VNA services. <Ashlyn Sanchez PA-C Last Filed: 06/19/21 13:29> Status at Discharge Overall status at discharge: patient is progressing back to baseline <AREN Nina Last Filed: 06/19/21 13:29> Time Spent with Patient Time attestation: Total time spent providing and/or coordinating discharge services: <AREN Nina Last Filed: 06/19/21 13:29> Discharge coordination time: Greater than 30 minutes <AREN Nina Last Filed: 06/19/21 13:29> Quality: Stroke Does the patient have a stroke diagnosis?: No <AREN Nina Last Filed: 06/19/21 13:29> Physical Exam Vital Signs: Vital Signs: Last Vital Signs Temp 98.3 F 06/16/21 11:37 Pulse 107 H 06/16/21 11:37 Resp 18 06/16/21 11:37 BP 113/59 L 06/16/21 11:37 Pulse Ox 94 06/16/21 11:37 Body Mass Index 27.7 <AREN Nina Last Filed: 06/19/21 13:29> Const: General: comfortable, no acute distress and alert <AREN Nina Last Filed: 06/19/21 13:29> Orientation/consciousness: patient oriented x3 <Ashlyn Sanchez PA-C Last Filed: 06/19/21 13:29> Resp: Effort & Inspection: normal respiratory effort <AREN Nina Last Filed: 06/19/21 13:29> GI: Inspection: No distended and Yes incision (clean, some serous drainage noted) <AREN Nina Last Filed: 06/19/21 13:29> Palpation (GI): Soft to palpation, Tenderness to palpation present (GI) (mild, right flank), no guarding and not rigid <Ashlyn Sanchez PA-C - Last Filed: 06/19/21 13:29> Skin: General skin exam: no rashes or lesions noted <AREN Nina Last Filed: 06/19/21 13:29> Neuro: General: patient oriented x3 <AREN Nina Last Filed: 06/19/21 13:29> Extrem: General: Yes no clubbing, cyanosis or edema <Ashlyn Sanchez PA-C - Last Filed: 06/19/21 13:29> DS: Data Data Completed and Pending Completed studies during hospitalization [Text1]: Pending at discharge 05/29/21 14:52 Surgical [PTH] Routine Abdominal fistula tract, excision:? Skin with underlying tract lined by granulation tissue and marked acute and chronic inflammation with foreign body giant cell reaction, consistent with fistula and abscess formation. Procedures Drainage of Retroperitoneum with Drainage Device, Percutaneous Approach (12/22/20) Drainage of Retroperitoneum, Percutaneous Endoscopic Approach (12/22/20) <Ashlyn Sanchez PA-C - Last Filed: 06/19/21 13:29> Discharge Plan Discharge Patient Disposition: Home Health Service <Ashlyn Sanchez PA-C - Last Filed: 06/19/21 13:29> Discharge Diagnosis: abdominal wall abscess <Ashlyn Sanchez PA-C - Last Filed: 06/19/21 13:29> abdominal wall abscess <Navdeep Lombardo MD - Last Filed: 06/19/21 16:33> Referrals: [facility] nurses [Other] - 1 Week Connor Mcdaniel MD [Primary Care Provider] - 1 Week Navdeep Lombardo MD [Physician] - 1 Week <Ashlyn Sanchez PA-C - Last Filed: 06/19/21 13:29> Discharge Medications: New oxycodone 5 mg tablet 5 mg PO Q4H PRN (Reason: pain) Qty: 30 RF: 0 Continued ondansetron HCl 4 mg tablet 1 tab PO Q8H PRN (Reason: nausea/vomiting) RF: 0 valsartan 80 mg tablet 80 mg PO DAILY RF: 0 multivitamin Tablet 1 tab PO DAILY RF: 0 carvedilol 6.25 mg Tablet 6.25 mg PO BID Qty: 60 RF: 0 Xarelto 20 mg Tablet 20 mg PO DAILY Qty: 30 RF: 0 amiodarone 200 mg tablet 200 mg PO DAILY RF: 0 gemfibrozil 600 mg tablet 600 mg PO BID RF: 0 trazodone 50 mg tablet 50 mg PO BEDTIME RF: 0 furosemide 40 mg tablet 40 mg PO BID RF: 0 spironolactone 25 mg tablet 25 mg PO DAILY RF: 0 zolpidem 10 mg tablet 10 mg PO BEDTIME RF: 0 <Ashlyn Sanchez PA-C - Last Filed: 06/19/21 13:29> Discharge Orders: Discharge Order (Routine); Ordered 06/16/21 Ordered By: Ashlyn Sanchez <Ashlyn Sanchez PA-C - Last Filed: 06/19/21 13:29> Diet: advance to usual diet <Ashlyn Sanchez PA-C - Last Filed: 06/19/21 13:29> advance to usual diet <Navdeep Lombardo MD - Last Filed: 06/19/21 16:33> Activity on Discharge: No heavy lifting <Ashlyn Sanchez PA-C - Last Filed: 06/19/21 13:29> No heavy lifting <Navdeep Lombardo MD - Last Filed: 06/19/21 16:33> Stand Alone Forms: Patient Portal Discharge page <Ashlyn Sanchez PA-C - Last Filed: 06/19/21 13:29> Activity Restrictions/Additional Instructions: If the incision area is tender, you may apply an ice pack for short intervals (No more than 20 minutes on, followed by at least 20 minutes off). Do not apply heat. Do not use creams, lotions, or topical antibiotics unless instructed to do so by your surgeon. These can cause infection or allergic reaction. Ok to shower. You have misa closing your incision and these will be removed approximately 10-14 days after surgery. NO HEAVY LIFTING (>10lbs). Call Your Doctor If: -Your temperature exceeds 101.5? F -You experience excessive pain or swelling -You have an unexpected reaction to medication -You have excessive bleeding -You experience continued vomiting/nausea -Your incision begins to separate -Your incision shows signs of infection such as increased redness, swelling, excessive pain, drainage (light blood or clear fluid is normal) or heat <Ashlyn Sanchez PA-C - Last Filed: 06/19/21 13:29> Care Plan Goals: Return to baseline health following recovery period. <Ashlyn Sanchez PA-C - Last Filed: 06/19/21 13:29> Health Concerns: Diabetes mellitus, PAF, abdominal wall abscess <Ashlyn Sanchez PA-C - Last Filed: 06/19/21 13:29> Plan of Treatment: Discharge to home, follow up in office for wound care. <Ashlyn Sanchez PA-C - Last Filed: 06/19/21 13:29> Assessment: 61-year-old male with a previous history of perforated appendicitis with abscess with a complicated postoperative course due to sepsis, subsequently requiring right hemicolectomy due to persistent drainage in 2019 with persistent abscess collections in the abdominal wall requiring IR drainage and incision and drainage.?A recent CT revealed a collection extending into the retroperitoneum and underwent exploratory laparotomy, washout of abdominal wall abscess excision of retroperitoneal/cutaneous abscess tract, drainage of retroperitoneal abscess cavity. He has slowly improved post operatively and his SHY drain has been removed. His WBC has improved and completed a 2 weeks course of IV abx. He feels ready and is stable for discharge with VNA services for wound care. <Ashlyn Sanchez PA-C - Last Filed: 06/19/21 13:29> Discharge Date/Time: 06/16/21 13:35 <AREN Nina Last Filed: 06/19/21 13:29>
--- NOTE | 2021-06-16 13:13 | PM.PNGS ---
Subjective Subjective Date of Service: 06/16/21 Interval history: Overall patient feels improved today with no nausea or vomiting. His abdominal pain is better. He denies much discharge from the incision. Physical Exam Vital Signs: Vital Signs: Last Vital Signs Temp 98.3 F 06/16/21 11:37 Pulse 107 H 06/16/21 11:37 Resp 18 06/16/21 11:37 BP 113/59 L 06/16/21 11:37 Pulse Ox 94 06/16/21 11:37 Body Mass Index 27.7 Resp: Other: Breathing comfortably on room air, no shortness of breath GI: Other: Soft, nondistended, nontender, dressings clean and intact without redness or discharge. No drainage from SHY site. Skin: Other: Warm, dry, no rash Extrem: Other: No cyanosis or edema Procedures Date of Service Date of Service: 06/16/21 Progress Note: A&P Assessment and plan (1) Abdominal wall abscess: Status: Acute Assessment and Plan: 61-year-old male patient status post exploratory laparotomy with drainage of retroperitoneal abscess collection and right flank abdominal wall abscess with washout. Patient feels much improved and drainage from his incisions has decreased to small amount of bloody discharge after all janette and drains removed. WBC is improving as well. Patient feels ready for discharge to home. He will follow up in the office in approximately 1-2 weeks. VNA requested for assistance with wound care and home physical therapy. Fall Risk Details Current Medications: Current Medications Generic Name Dose Route Start Last Admin Trade Name Freq PRN Reason Stop Dose Admin Carvedilol 6.25 mg 05/26/21 21:00 06/16/21 08:31 Carvedilol 6.25 Mg Tablet PO 6.25 mg BID KANCHAN Administration Protocol Erythromycin 1 cm 06/15/21 21:00 06/16/21 08:32 Erythromycin Base 0.5% Oph Oin 1 Gm Tube EYE-RIGHT 06/16/21 21:01 1 cm BID KANCHAN Administration Furosemide 40 mg 05/26/21 21:00 06/16/21 08:32 Furosemide 40 Mg Tablet PO 40 mg BID KANCHAN Administration Protocol Gemfibrozil 600 mg 05/26/21 21:00 06/16/21 08:31 Gemfibrozil 600 Mg Tablet PO 600 mg BID KANCHAN Administration Insulin Human Lispro 0 unit 05/27/21 11:30 06/16/21 11:09 Insulin Lispro 100 Unit/Ml 3 Ml Vial SUBCUT Not Given QIDACHS [facility] Protocol Lidocaine 1 patch 06/14/21 09:00 06/16/21 08:32 Lidocaine 4 % Patch Adh..Patch TRANSDERMA Not Given DAILY [facility] Protocol Loperamide HCl 2 mg 06/06/21 18:10 06/07/21 09:27 Loperamide Hcl Oral Liquid 2 Mg/15 Ml Liquid PO 2 mg Q6H PRN Administration Diarrhea Multivitamins/Vitamin C 1 tab 05/27/21 09:00 06/16/21 08:31 Multivitamin Tablet PO 1 tab DAILY KANCHAN Administration Nystatin 1 appl 06/15/21 21:00 06/16/21 08:36 Nystatin Powder 15 Gm Bottle TOPICAL 1 appl BID KANCHAN Administration Protocol Ondansetron HCl 4 mg 05/27/21 11:16 06/02/21 08:54 Ondansetron Hcl 4 Mg/2 Ml Vial IVPUSH 4 mg Q8H PRN Administration Nausea and Vomiting Oxycodone HCl 10 mg 06/15/21 15:01 06/16/21 02:36 Oxycodone Hcl Immed Release 5 Mg Tablet PO 10 mg Q6H PRN Administration Pain, Severe (Pain Scale 7-10) Pharmacy Consult 1 each 05/26/21 12:20 Consult Rx Perform Med Rec MISCELLANE ONCE PRN Consult order Rivaroxaban 20 mg 06/03/21 09:00 06/16/21 08:31 Rivaroxaban 20 Mg Tablet PO 20 mg DAILY KANCHAN Administration Sodium Chloride 3 ml 05/27/21 00:00 06/16/21 08:31 0.9 % Sodium Chloride Flush 3 Ml Syringe IVFLUSH 3 ml QSHIFT KANCHAN Administration Spironolactone 25 mg 05/27/21 09:00 06/16/21 08:31 Spironolactone 25 Mg Tablet PO 25 mg DAILY KANCHAN Administration Protocol Trazodone HCl 50 mg 05/26/21 21:00 06/15/21 20:58 Trazodone Hcl 50 Mg Tablet PO 50 mg BEDTIME KANCHAN Administration Valsartan 80 mg 05/27/21 09:00 06/16/21 08:31 Valsartan 80 Mg Tablet PO 80 mg DAILY KANCHAN Administration Protocol Time Spent With Patient Time: Total time spent is greater than 50% in coordination of care (as documented) at patient's floor/unit and/or counseling patient: Time with patient: 15 - 24 minutes No Severe Sepsis: No Severe Sepsis Quality Stroke Does the patient have a stroke diagnosis?: No VTE Prior VTE?: No VTE Risk Level:: Medical - moderate - high VTE Device Contraindication: N/A - Device Ordered VTE Drug Contraindication: N/A - Med Ordered
--- NOTE | 2021-06-16 13:18 | W.MHC.F2F ---
Service Date Service Date: 06/16/21 Encounter Date of encounter: 06/16/21 Encounter: Postop wound check Reasons for Services Signs and symptoms assessed: Vital signs, abdominal examination Reason for halfway: wound care Reason for physical therapy: home safety and mobility and therapeutic exercises Overseeing Care: Navdeep Lombardo Homebound: Leaving the home is medically contraindicated at this time without the asist of a device and/or another person due th the listed conditions above and below. 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 He has weakened from a prolonged hospitalization and recent abdominal wall surgery. Certification: Based on the above findings, I certify that this patient is confined to the home and needs intermittent halfway care, physical therapy and/or speech therapy, or continues to need occupational therapy. The patient is under my care, and I have initiated the establishment of the plan of care. The patient will be followed by a physician who will periodically review the plan of care.
== END 2021-06-16 13:35 | disposition home health service (06) | DRG 857 ==
LOC: HO.ED 16:11 → HO.EDOVER 17:22 → HO.IMC 22:53
PROVIDERS: Hospitalist; Internal Medicine; Physician Assistant Surgical; Radiology Diagnostic Radiology; Surgery; Admitting Provider Surgery; Emergency Provider Emergency Medicine; PCP Internal Medicine; Visit Provider Surgery
PROC: 0W9F30Z Drainage of Abdominal Wall with Drainage Device, Percutaneous Approach (ICD-10-PCS; principal; 2021-05-28 09:00)
PROC: 0K9K0ZZ Drainage of Right Abdomen Muscle, Open Approach (ICD-10-PCS; CPT 49000; principal; 2021-05-29 12:00)
DX: T81.43XA Infection following a procedure, organ and space surgical site, initial encounter (principal); L02.211 Cutaneous abscess of abdominal wall; I50.42 Chronic combined systolic (congestive) and diastolic (congestive) heart failure; I42.9 Cardiomyopathy, unspecified; K68.11 Postprocedural retroperitoneal abscess; I48.0 Paroxysmal atrial fibrillation; I25.10 Atherosclerotic heart disease of native coronary artery without angina pectoris; R19.7 Diarrhea, unspecified; E11.9 Type 2 diabetes mellitus without complications; E87.6 Hypokalemia; Z20.822 Contact with and (suspected) exposure to COVID-19; Z87.891 Personal history of nicotine dependence; Z79.01 Long term (current) use of anticoagulants; Z79.899 Other long term (current) drug therapy
CPT/HCPCS: 10030; 36415; 74176; 74177; 80048; 80051; 80076; 81003; 82947; 83605; 83735; 83880; 85025; 85027; 85610; 85730; 86140; 86850; 86900; 86901; 86920; 86922; 87040; 87071; 87073; 87076; 87147; 87185; 87205; 87493; 87635; 88305; 97110; 97116; 97162; 97530; 99024; 99152; 99285; C1758; J0131; J0692; J1170; J1650; J2250; J2270; J2405; J2543; J3010; Q9967

== ENCOUNTER 2021-07-03 08:14 | Inpatient (IN) | payer MEDICARE, SELFPAY ==
[2021-07-03] VITALS (7 sets, daily range): BP systolic 120–144; BP diastolic 62–72; PULSE 76–84; RESP 16–19; TEMP 36.1–36.7; O2SAT 96–99; BMI 24.0
--- NOTE | ~2021-07-03 | CT_ITS ---
EXAMINATION: CT ABDOMEN AND PELVIS WITHOUT CONTRAST CLINICAL INFORMATION: Abdominal wall abscess COMPARISON: Previous CT scans most recent 07/15/2021 TECHNIQUE: Multidetector volumetric imaging was performed from the superior aspect of the liver through the pubic symphysis. Sagittal and coronal reformatted images were obtained on the technologist's workstation. This CT examination was performed using dose optimization techniques as appropriate, variously including the following: *Automated exposure control *Adjustment of mA and/or kV according to patient size (this includes techniques or standardized protocols for targeted exams where dose is matched to indication/reason for exam; i.e. extremities or head) *Use of iterative reconstruction technique DLP: 741 mGy-cm FINDINGS: LUNG BASES: Moderate to large left pleural effusion. There is a very small right pleural effusion and pleural thickening. There is left lower lobe atelectasis or consolidation. There is right lower lobe subsegmental atelectasis. There is a small pericardial effusion. LIVER, GALLBLADDER, AND BILIARY TREE: The liver is normal in size, shape, and attenuation. No focal hepatic lesion or biliary ductal dilatation is present. The gallbladder has been removed.. PANCREAS: Unremarkable. SPLEEN: Unremarkable. ADRENAL GLANDS: There is a 1 x 2 cm low-attenuation left adrenal nodule that is stable. The right adrenal gland is normal. KIDNEYS AND URETERS: There is a 3 cm right renal cyst. The kidneys are otherwise. BLADDER: Unremarkable. GASTROINTESTINAL TRACT: There are postsurgical changes following right colectomy. There is stool throughout the colon suggestive of constipation. There is a small air collection seen in the right lateral abdominal wall. This appears significantly decreased in size compared to 07/15/2021 exam. This measures less than 1 cm, axial image 69 series 3. There is adjacent stranding of the fat and skin thickening. There is a multiloculated fluid collection seen involving the right lateral abdominal wall, posterior peritoneal reflection extending to the right iliac crest and basilic muscles. This does not appear appreciably changed. This may communicate with tract in the more superior lateral abdominal wall axial image 45 series 3. There is a small amount of ascites in the abdomen and pelvis. ABDOMINAL WALL: There is diffuse subcutaneous edema. There is slight skin thickening and stranding of the fat adjacent to the small fluid collection in the right lateral abdominal wall. There is a more superior and lateral defect in the skin, a focal area of skin thickening and small amount of fluid. This may communicate with the more posterior multiloculated fluid collection along the posterior peritoneal reflection and iliopsoas muscles. LYMPH NODES: Normal. VASCULAR: There is evidence of atherosclerotic disease. No aneurysm is seen. PELVIC VISCERA: Unremarkable. OSSEOUS STRUCTURES: There are degenerative changes of the spine and hip joints. There is osteopenia. CT/CT abdomen pelvis wo con IMPRESSION: Interval decrease in the more inferior anterior right abdominal wall fluid collection. No significant change in the more superior lateral abdominal wall fluid collection involving the posterior peritoneal surface and right ilio psoas muscle. Both these collections appear to have tracks extending to the skin. Diffuse subcutaneous edema. Constipation. Large left pleural effusion and left lower lobe compressive atelectasis. Small right pleural effusion and chronic right pleural thickening. Stable left adrenal nodule and right renal cyst.
--- NOTE | ~2021-07-03 | CT_ITS ---
EXAMINATION: CT ABDOMEN AND PELVIS WITH CONTRAST CLINICAL INFORMATION: Cellulitis of the abdominal wall COMPARISON: Previous CT scans of the abdomen and pelvis most recent 07/03/2021 TECHNIQUE: Multidetector volumetric images were obtained from the superior aspect of the liver through the pubic symphysis following administration 85 mL of Omnipaque 350 intravenous contrast. Sagittal and coronal reformatted images were obtained on the technologist's workstation. Oral contrast: Yes This CT examination was performed using dose optimization techniques as appropriate, variously including the following: *Automated exposure control *Adjustment of mA and/or kV according to patient size (this includes techniques or standardized protocols for targeted exams where dose is matched to indication/reason for exam; i.e. extremities or head) *Use of iterative reconstruction technique DLP: 797 mGy-cm FINDINGS: LUNG BASES: There is a small right pleural effusion. This appears complex with thickened wall. There is a moderate to large left pleural effusion. There is compressive atelectasis of the left lower lobe. Pleural effusions appear increased from June 2019 exam. LIVER, GALLBLADDER, AND BILIARY TREE: The liver is enlarged and slightly low in attenuation suggestive of fatty infiltration. No focal liver lesion. The gallbladder is been removed. No biliary duct dilatation. PANCREAS: Unremarkable. SPLEEN: Unremarkable. ADRENAL GLANDS: The 1 x 2 cm left adrenal nodule is stable. The right adrenal gland is normal. KIDNEYS AND URETERS: There are bilateral renal cysts. There is stranding of the bilateral perinephric fat, right greater than left. BLADDER: Unremarkable. GASTROINTESTINAL TRACT: There is diverticulosis of the colon. No evidence of diverticulitis is seen. There are postsurgical changes to the right colon. The appendix is not seen and this probably been removed. The stomach is unremarkable. ABDOMINAL WALL: There is a new fluid collection seen in the right lower abdominal wall just medial to the right iliac crest. This contains fluid and small amount of air and measures 6 x 7 cm. There is no significant change in the small loculated fluid collections along the right lateral abdominal wall, lateral abdominal wall muscles and right iliac axis and psoas muscles. Some of these fluid collections contain a small amount of air, particularly superficial to and involving the right lateral abdominal wall muscles and the right iliacus muscle. There is diffuse subcutaneous edema. There are areas of skin thickening along the right anterior lateral abdominal wall. LYMPH NODES: There is shotty retroperitoneal lymphadenopathy. This does not appear appreciably changed. No enlarged lymph nodes are seen. VASCULAR: There is evidence of atherosclerotic disease. No aneurysm is seen. PELVIC VISCERA: The prostate gland does not appear enlarged. There is a small amount of fluid in the pelvis that is new. OSSEOUS STRUCTURES: There are degenerative changes of the spine and hip joints. The bones appear osteopenic. CT/CT abdomen pelvis w con IMPRESSION: Increasing right lower quadrant anterior abdominal wall fluid collection with small air pockets. No appreciable change in the loculated small fluid collections along the right lateral abdominal wall, right psoas and iliacus muscles from most recent exam 07/03/2021. New bilateral pleural effusions, left greater than right, and ascites in the pelvis.
--- NOTE | ~2021-07-03 | CT_ITS ---
EXAMINATION: CT ABDOMEN AND PELVIS WITH CONTRAST CLINICAL INFORMATION: Intra-abdominal abscess. COMPARISON: CT abdomen pelvis 06/05/2021 TECHNIQUE: Multidetector volumetric images were obtained from the superior aspect of the liver through the pubic symphysis following administration 85 mL of Omnipaque 350 intravenous contrast. Sagittal and coronal reformatted images were obtained on the technologist's workstation. Oral contrast: No This CT examination was performed using dose optimization techniques as appropriate, variously including the following: *Automated exposure control *Adjustment of mA and/or kV according to patient size (this includes techniques or standardized protocols for targeted exams where dose is matched to indication/reason for exam; i.e. extremities or head) *Use of iterative reconstruction technique DLP: 775 mGy-cm FINDINGS: LUNG BASES: There is bibasilar atelectatic changes. Minimal right posterior pleural thickening or small effusion is seen. The heart size is normal. LIVER, GALLBLADDER, AND BILIARY TREE: The liver is normal in size, shape, and attenuation. No focal hepatic lesion. There is minimal intrahepatic ductal dilatation. The CBD is mildly prominent secondary to cholecystectomy.. The gallbladder has been surgically removed. PANCREAS: Unremarkable. SPLEEN: The spleen is enlarged measuring 16.6 cm in AP and lateral ADRENAL GLANDS: There is a left adrenal 2.4 x 1.9 cm heterogeneous lesion with central fatty density likely lipid rich adenoma. The size is unchanged to previous study. The right adrenal gland is normal. KIDNEYS AND URETERS: The kidneys are normal in size, shape, and attenuation. No hydronephrosis, hydroureter, or calculi seen. There is diffuse bilateral perinephric stranding right greater than left. There is a hypodense partially exophytic 4.1 cm cyst lower pole right kidney punctate cyst seen as well in the midpole right kidney. BLADDER: There is mild anterior bladder wall thickening. GASTROINTESTINAL TRACT: There is scattered stool, gas and artifact are seen throughout the colon without distention. The small bowel loops are normal caliber. Postsurgical changes are seen in the right lower quadrant from previous intervention. There is mild haziness seen throughout the lower abdomen likely edema are post surgical changes. No free air seen. The free fluid is significant improved since the last study. ABDOMINAL WALL: Previously seen right upper abdominal wall fluid collection with linear gas collection has significantly improved. There is minimal scar seen in this region. LYMPH NODES: Normal. VASCULAR: Atherosclerotic changes of abdominal aorta and common iliac arteries are noted. PELVIC VISCERA: No free fluid seen. The prostate gland is normal size. OSSEOUS STRUCTURES: There are degenerative disc changes with spondylosis and vacuum disc phenomena at L3-L4 and L4-L5 disc levels. There is mild ventral spondylosis lower dorsal spine. CT/CT abdomen pelvis w con IMPRESSION: Significant improvement in the air and fluid collection along the right lateral abdominal wall. Ascites is improved as well. There is mild intra-abdominal haziness likely edema or postsurgical changes. No free air seen. Right abdominal wall fistulous gas collection and the tract has improved significantly. Postsurgical changes are seen in the right lower abdomen and stable. Mild intrahepatic ductal dilatation. Evidence of previous cholecystectomy and an exophytic moderate-sized cyst mid to lower pole right kidney. Small right pleural effusion with bibasilar chronic atelectasis or scarring.
[2021-07-03 08:58] LABS: MANUAL DIFF FLAG NO
[2021-07-03 09:01] LABS: Basophils Percent Auto 0.2 % (0-2); Eosinophils Absolute Auto 0.1 X10*3/uL (0.0-0.4); Eosinophils Percent Auto 0.5 % (0-4); Hematocrit 31.5 % (42-52); Hemoglobin 10.4 g/dl (14.0-18.0); Imm Gran Abs Auto 0.08 X10*3/uL (0.00-0.03); Imm Gran Pct Auto 0.5 % (0.0-0.4); Lymphocytes Absolute Auto 0.7 X10*3/uL (1.2-4.9); Lymphocytes Percent Auto 4.7 % (20-40); Mean Corpuscular Hemoglobin 28.8 pg (27.0-33.0); Mean Corpuscular Volume 87.3 fL (80-98); Mean Platelet Volume 9.2 fL (9.4-12.4); Monocytes Absolute Auto 0.7 X10*3/uL (0.1-1.2); Monocytes Percent Auto 4.2 % (2-11); Neutrophils Absolute Auto 14.1 X10*3/uL (2.0-8.3); Neutrophils Percent Auto 89.9 % (45-73); Platelet Count 370 X10*3/uL (160-400); Red Blood Count 3.61 X10*6/uL (4.60-5.80); Red Cell Distribution Width 15.3 % (11.0-16.0); White Blood Count 15.7 X10*3/uL (4.8-10.8)
[2021-07-03] MEDS: ondansetron HCL 4 MG/2 ML VIAL IVPUSH ×2 (09:14→15:47)
[2021-07-03] MEDS: 0.9 % Sodium Chloride 1,000 ML 999 ML IVCONT (09:15)
[2021-07-03 09:17] LABS: Lactic Acid 1.9 mmol/L (0.5-2.0)
[2021-07-03 09:23] LABS: Alanine Aminotransferase 8 U/L (0-40); Albumin Level 3.2 g/dL (3.5-5.0); Alkaline Phosphatase 131 U/L (39-117); Anion Gap 15 (12-20); Aspartate Amino Transferase 16 U/L (5-37); Bilirubin Total 0.7 mg/dL (0.0-1.0); Blood Urea Nitrogen 14 mg/dL (9-16); Calcium 8.7 mg/dL (8.4-10.2); Carbon Dioxide 25 mmol/L (22-29); Chloride 103 mmol/L (96-108); Estimated Glomerular Filt Rate > 60; Glucose Random 155 mg/dL (60-115); Potassium 3.7 mmol/L (3.3-5.1); Sodium 139 mmol/L (135-145); Total Protein 6.9 g/dL (6.5-8.0)
[2021-07-03] MEDS: Piperacillin Sodium/Tazobactam 3.375 GM in 0.9 % Sodium Chloride 50 ML IV ×3 (09:35→20:44)
[2021-07-03] MEDS: HYDROmorphone HCl 2 MG/ML VIAL IVPUSH (09:36)
--- NOTE | 2021-07-03 10:33 | ED_ITS ---
HPI - Abdominal Pain General Chief Complaint: Nausea/Vomiting/Diarrhea Stated Complaint: general malaise/ vomiting Time Seen by Provider: 07/03/21 08:26 Source: patient Mode of arrival: EMS Limitations: no limitations History of Present Illness HPI narrative: Patient is 61 years old with status post appendectomy in 01/2019 which was perforated with right lower quadrant abscess since then patient has been having recurrent abscesses in the right gutter as well as right abdominal wall and had gone multiple CT guided drainage on 05/29 patient went exploratory laparotomy washout of the abscess wall abdominal wall abscess excision SHY drain was placed intraoperatively and he tolerated the procedure well patient dis charged home on 06/16 now comes back as noticed pain in the same area with yellowish discharge for last 2 days patient been feeling nauseated too. No fever or chills Related Data Home Medications Medication Instructions Recorded Confirmed multivitamin 1 tab PO DAILY 04/02/21 05/26/21 amiodarone 200 mg tablet 200 mg PO DAILY 05/07/21 05/26/21 furosemide 40 mg tablet 40 mg PO BID tab 05/07/21 05/26/21 gemfibrozil 600 mg tablet 600 mg PO BID 05/07/21 05/26/21 spironolactone 25 mg tablet 25 mg PO DAILY tab 05/07/21 05/26/21 trazodone 50 mg tablet 50 mg PO BEDTIME 05/07/21 05/26/21 zolpidem 10 mg tablet 10 mg PO BEDTIME 05/07/21 05/26/21 ondansetron HCl 4 mg tablet 1 tab PO Q8H PRN 05/26/21 05/26/21 valsartan 80 mg tablet 80 mg PO DAILY 05/26/21 05/26/21 Previous Rx's Medication Instructions Recorded carvedilol 6.25 mg tablet 6.25 mg PO BID #60 tab 04/10/21 rivaroxaban 20 mg tablet (Xarelto) 20 mg PO DAILY #30 tab 04/10/21 oxycodone 5 mg tablet 5 mg PO Q4H PRN #30 tab 07/01/21 Allergies Allergy/AdvReac Type Severity Reaction Status Date / Time vancomycin [VANCOMYCIN] Allergy Severe STOMACH Verified 05/26/21 11:08 UPSET, ill Review of Systems Review of Systems Constitutional : No Weight loss, No Fever, No Chills ENT/Mouth : No sore throat, No Rhinorrhea Eyes: No Eye Pain, No Swelling Cardiovascular : No Chest Pain, no palpitations Respiratory : No Cough, No Sputum, no shortness of breath Gastrointestinal : ++ Nausea, No Vomiting, No Diarrhea, ++abdominal Pain, no black stools Genitourinary : No Dysuria, No Urinary Frequency Musculoskeletal : No joint pain, No Myalgias, No Joint Swelling Skin : No Skin Lesions, No rash Neuro : No Weakness, No Numbness, No Dizziness, No Headache Psych : No Anxiety/Panic, No Depression Heme/Lymph: No Bruising, No Lymphadenopathy Endocrine : No Polyuria, No Polydipsia All other systems reviewed and are negative Physical Exam Vital Signs: Vital Signs: Last Vital Signs Temp 98.1 F 07/03/21 12:00 Pulse 78 07/03/21 12:00 Resp 17 07/03/21 12:00 BP 137/71 07/03/21 12:00 Pulse Ox 97 07/03/21 12:00 Body Mass Index 24.0 Const: General: comfortable and no acute distress Orientatio n/consciousness: patient oriented x3 HENMT: Head: Yes normocephalic and Yes atraumatic Eyes: General: appearance normal, both eyes and all related structures Neck: Neck: Yes full ROM and Yes no lymphadenopathy Chest: Chest palpation & inspection: normal inspection of the chest and normal palpation of entire chest wall Resp: Effort & Inspection: normal respiratory effort Auscultation: clear to auscultation bilaterally, no crackles and no rales Cardio: Palpation: normal PMI Rate: regular rate Rhythm: regular rhythm Heart sounds: S1 normal heart sound present and S2 normal heart sound present Peripheral pulses: Peripheral pulses 2+ throughout GI: Palpation (GI): Soft to palpation and Tenderness to palpation present (GI) (Right side at the site of suture with purulent discharge) Auscultation: normal bowel sounds Abdomen image: 1. Sutures in place with purulent greenish pus discharge : General: Yes no CVA tenderness Back/Spine/Pelvis: Back: no CVA tenderness Skin: General skin exam: no rashes or lesions noted Neuro: General: patient oriented x3 MDM - Abdominal Pain MDM Narrative Medical decision making narrative: Patient with increase pus discharge at the site of abscess in the right lateral abdominal wall CT scan showed slight improvement patient has leukocytosis. Started on vancomycin and IV Zosyn case discussed with Dr. Lombardo will admit the patient to their service Medical Records Attestation: I reviewed the patient's medical records. Lab Data Attestation: I reviewed the patient's lab results. Result diagrams: 07/03/21 08:52 07/03/21 08:52 Labs: Lab Results 07/03/21 07/03/21 07/03/21 Range/Units 08:52 08:52 08:52 WBC 15.7 H (4.8-10.8) X10*3/uL RBC 3.61 L (4.60-5.80) X10*6/uL Hgb 10.4 L (14.0-18.0) g/dl Hct 31.5 L (42-52) % MCV 87.3 (80-98) fL MCH 28.8 (27.0-33.0) pg MCHC 33.0 (31.0-36.0) g/dl RDW 15.3 (11.0-16.0) % Plt Count 370 D (160-400) X10*3/uL MPV 9.2 L (9.4-12.4) fL Immature Gran % (Auto) 0.5 H (0.0-0.4) % Neut % (Auto) 89.9 H (45-73) % Lymph % (Auto) 4.7 L (20-40) % [place] % (Auto) 4.2 (2-11) % Eos % (Auto) 0.5 (0-4) % Baso % (Auto) 0.2 (0-2) % Lymph # (Auto) 0.7 L (1.2-4.9) X10*3/uL [place] # (Auto) 0.7 (0.1-1.2) X10*3/uL Eos # (Auto) 0.1 (0.0-0.4) X10*3/uL Baso # (Auto) 0.0 (0.0-0.2) X10*3/uL Abs Immat Gran (auto) 0.08 H (0.00-0.03) X10*3/uL Absolute Neuts (auto) 14.1 H (2.0-8.3) X10*3/uL Absolute Nucleated RBC 0.000 (0.0-0.012) X10*3/uL Nucleated RBC % (auto) 0.0 (0.0-0.2) /100WBC Sodium 139 (135-145) mmol/L Potassium 3.7 (3.3-5.1) mmol/L Chloride 103 (96-108) mmol/L Carbon Dioxide 25 (22-29) mmol/L Anion Gap 15 (12-20) BUN 14 (9-16) mg/dL Creatinine 0.75 (0.5-1.4) mg/dL Estim Creat Clear Calc 122.0 Estimated GFR > 60 Random Glucose 155 H (60-115) mg/dL Lactic Acid 1.9 (0.5-2.0) mmol/L Calcium 8.7 (8.4-10.2) mg/dL Total Bilirubin 0.7 (0.0-1.0) mg/dL AST 16 (5-37) U/L ALT 8 (0-40) U/L Alkaline Phosphatase 131 H D (39-117) U/L Total Protein 6.9 (6.5-8.0) g/dL Albumin 3.2 L D (3.5-5.0) g/dL COVID-19 ([facility]) (Negative) COVID-19 Clin Com 07/03/21 Range/Units 11:19 WBC (4.8-10.8) X10*3/uL RBC (4.60-5.80) X10*6/uL Hgb (14.0-18.0) g/dl Hct (42-52) % MCV (80-98) fL MCH (27.0-33.0) pg MCHC (31.0-36.0) g/dl RDW (11.0-16.0) % Plt Count (160-400) X10*3/uL MPV (9.4-12.4) fL Immature Gran % (Auto) (0.0-0.4) % Neut % (Auto) (45-73) % Lymph % (Auto) (20-40) % [place] % (Auto) (2-11) % Eos % (Auto) (0-4) % Baso % (Auto) (0-2) % Lymph # (Auto) (1.2-4.9) X10*3/uL [place] # (Auto) (0.1-1.2) X10*3/uL Eos # (Auto) (0.0-0.4) X10*3/uL Baso # (Auto) (0.0-0.2) X10*3/uL Abs Immat Gran (auto) (0.00-0.03) X10*3/uL Absolute Neuts (auto) (2.0-8.3) X10*3/uL Absolute Nucleated RBC (0.0-0.012) X10*3/uL Nucleated RBC % (auto) (0.0-0.2) /100WBC Sodium (135-145) mmol/L Potassium (3.3-5.1) mmol/L Chloride (96-108) mmol/L Carbon Dioxide (22-29) mmol/L Anion Gap (12-20) BUN (9-16) mg/dL Creatinine (0.5-1.4) mg/dL Estim Creat Clear Calc Estimated GFR Random Glucose (60-115) mg/dL Lactic Acid (0.5-2.0) mmol/L Calcium (8.4-10.2) mg/dL Total Bilirubin (0.0-1.0) mg/dL AST (5-37) U/L ALT (0-40) U/L Alkaline Phosphatase (39-117) U/L Total Protein (6.5-8.0) g/dL Albumin (3.5-5.0) g/dL COVID-19 ([facility]OL[facility]) Negative (Negative) COVID-19 Clin Com See Note Imaging Data CT scan - abdomen: Attestation: I personally reviewed and interpreted this imaging study as follows: Radiologist's impression: atient: Denzel Hammond JR MR#: [id number] : 1960 Acct:[id number] Age/Sex: 61 / M ADM Date: 07/03/21 Loc: HO.ED Attending Dr: Ordering Physician: Rohan Comer MD Date of Service: 07/03/21 Procedure(s): CT abdomen pelvis w con Accession Number(s): [id number] cc: Rohan Comer MD~ EXAMINATION: CT ABDOMEN AND PELVIS WITH CONTRAST? CLINICAL INFORMATION: Intra-abdominal abscess.? COMPARISON: CT abdomen pelvis 06/05/2021? TECHNIQUE: Multidetector volumetric images were obtained from the superior aspect of the liver through the pubic symphysis following administration 85 mL of Omnipaque 350 intravenous contrast. Sagittal and coronal reformatted images were obtained on the technologist's workstation.? Oral contrast: No This CT examination was performed using dose optimization techniques as appropriate, variously including the following: *Automated exposure control *Adjustment of mA and/or kV according to patient size (this includes techniques or standardized protocols for targeted exams where dose is matched to indication/reason for exam; i.e. extremities or head) *Use of iterative reconstruction technique DLP: 775 mGy-cm FINDINGS: LUNG BASES: There is bibasilar atelectatic changes. Minimal right posterior pleural thickening or small effusion is seen. The heart size is normal.? LIVER, GALLBLADDER, AND BILIARY TREE: The liver is normal in size, shape, and attenuation. No focal hepatic lesion. There is minimal intrahepatic ductal dilatation. The CBD is mildly prominent secondary to cholecystectomy.. The gallbladder has been surgically removed.? PANCREAS: Unremarkable.? SPLEEN: The spleen is enlarged measuring 16.6 cm in AP and lateral? ADRENAL GLANDS: There is a left adrenal 2.4 x 1.9 cm heterogeneous lesion with central fatty density likely lipid rich adenoma. The size is unchanged to previous study. The right adrenal gland is normal.? KIDNEYS AND URETERS: The kidneys are normal in size, shape, and attenuation. No hydronephrosis, hydroureter, or calculi seen. There is diffuse bilateral perinephric stranding right greater than left. There is a hypodense partially exophytic 4.1 cm cyst lower pole right kidney punctate cyst seen as well in the midpole right kidney. ? BLADDER: There is mild anterior bladder wall thickening.? GASTROINTESTINAL TRACT: There is scattered stool, gas and artifact are seen throughout the colon without distention. The small bowel loops are normal caliber. Postsurgical changes are seen in the right lower quadrant from previous intervention. There is mild haziness seen throughout the lower abdomen likely edema are post surgical changes. No free air seen. The free fluid is significant improved since the last study.? ABDOMINAL WALL: Previously seen right upper abdominal wall fluid collection with linear gas collection has significantly improved. There is minimal scar seen in this region.? LYMPH NODES: Normal. VASCULAR: Atherosclerotic changes of abdominal aorta and common iliac arteries are noted. PELVIC VISCERA: No free fluid seen. The prostate gland is normal size. OSSEOUS STRUCTURES: There are degenerative disc changes with spondylosis and vacuum disc phenomena at L3-L4 and L4-L5 disc levels. There is mild ventral spondylosis lower dorsal spine.? CT/CT abdomen pelvis w con IMPRESSION: Significant improvement in the air and fluid collection along the right lateral abdominal wall. ? Ascites is improved as well. There is mild intra-abdominal haziness likely edema or postsurgical changes. No free air seen. ? Right abdominal wall fistulous gas collection and the tract has improved significantly. ? Postsurgical changes are seen in the right lower abdomen and stable. ? Mild intrahepatic ductal dilatation. Evidence of previous cholecystectomy and an exophytic moderate-sized cyst mid to lower pole right kidney. ? Small right pleural effusion with bibasilar chronic atelectasis or scarring.? Dictated By: Garrett Bassett MD Signed By: <Electronically signed by Garrett Bassett MD in OV> 07/03/21 1130 DD/ 0857 TD/TT:? Federal Mediator: [facility] [place] Discharge Plan Discharge Clinical Impression: Abscess, intra-abdominal, postoperative Patient Disposition: Admitted As Inpatient [facility] Past Medical History Medical History Abdominal wall abscess Acute appendicitis CHF (congestive heart failure) CHF (congestive heart failure) CVA (cerebral vascular accident) Diabetes Diabetes mellitus Heart disease Heart failure with reduced ejection fraction History of left below knee amputation HTN (hypertension) Ischemic cardiomyopathy Paroxysmal atrial fibrillation Surgical History H/O exploratory laparotomy H/O right hemicolectomy History of transmetatarsal amputation of right foot Hx of cholecystectomy Family History Family History Father Stroke Aortic valve replaced Mother No problems noted. Social History Social History Household Members: Family Household Members Other:: Home w/ mother whom he cares for Housing: House Do you presently have visiting nurse or other home services: Yes (At home wound care nurse) Alcohol intake: former Patient Tobacco Use Status: Former Tobacco user Use of substances other than those prescribed or required for medical reasons: No Advance Directives: Yes Advance Directives on File: Yes Advance Directives Date on File: 01/06/21 service: No Current occupational status: retired and disabled
[2021-07-03] MEDS: iohexoL 350 MG/ML 100 ML INFUS..BTL IV (10:56)
--- NOTE | 2021-07-03 11:15 | PC.NURSE ---
patient has allergy to vanco- pt refused medication- provider notified
[2021-07-03 11:45] LABS: COVID-19 Test Negative (Negative); IDNOW Serial# 08D9AD1C
--- NOTE | 2021-07-03 12:31 | P.HPGS_ITS ---
History of Present Illness History of Present Illness Date of Service: 07/03/21 Chief complaint: general malaise/ vomiting Narrative: Denzel Hammond JR is a 61 year old male well known to the surgical service with a prior history of perforated appendicitis with abdominal wall abscess, status post right hemicolectomy and most recently status post abdominal wall washout with drainage of retroperitoneal abscess. He was recently discharged approximately 2 weeks ago and reports feeling well but then over the last several days developing increased abdominal pain in the right lower quadrant with some greenish discharge from his right lateral abdominal wall incision. He also reports nausea and vomiting with generalized weakness. He returned to the emergency department for further evaluation. In the emergency department he was noted to have greenish discharge from his lateral incision. WBC was elevated to [address] of the abdomen and pelvis however does reveal improvement of the prior abdominal wall collection. There is still some residual air within the subcutaneous tissue but no evidence of an underlying abscess and no intra-abdominal fluid. He is admitted to the surgical service for IV antibiotics and management of his nausea and vomiting. Review of Systems Constitutional: Constitutional: Denies chills, Denies fever(s), Reports poor appetite, Reports weakness and Reports weight loss Cardiovascular: Cardiovascular: Denies chest pain, Denies dyspnea and Denies dyspnea on exertion Respiratory: Respiratory: Denies cough, Denies dyspnea and Denies dyspnea on exertion Gastrointestinal: Gastrointestinal: Denies hematochezia, Reports diarrhea, Reports nausea and Reports vomiting Genitourinary: Genitourinary: Denies hematuria and Denies difficulty urinating Musculoskeletal: Musculoskeletal: Denies back pain and Denies limited range of motion Integumentary/Breasts: Skin/Breast: Reports wounds Neurologic: Denies focal weakness, Denies convulsions and Reports weakness Psychiatric: Psychiatric: Denies depression and Denies mood swings [facility] Past Medical History Medical History Abdominal wall abscess Acute appendicitis CHF (congestive heart failure) CHF (congestive heart failure) CVA (cerebral vascular accident) Diabetes Diabetes mellitus Heart disease Heart failure with reduced ejection fraction History of left below knee amputation HTN (hypertension) Ischemic cardiomyopathy Paroxysmal atrial fibrillation Family History Family History Father Stroke Aortic valve replaced Mother No problems noted. Surgical History Surgical History H/O exploratory laparotomy H/O right hemicolectomy History of transmetatarsal amputation of right foot Hx of cholecystectomy Social History Social History Household Members: Family Household Members Other:: Home w/ mother whom he cares for Housing: House Do you presently have visiting nurse or other home services: Yes (At home wound care nurse) Alcohol intake: former Patient Tobacco Use Status: Former Tobacco user Use of substances other than those prescribed or required for medical reasons: No Advance Directives: Yes Advance Directives on File: Yes Advance Directives Date on File: 01/06/21 service: No Current occupational status: retired and disabled Meds Allergies Allergy/AdvReac Type Severity Reaction Status Date / Time vancomycin [VANCOMYCIN] Allergy Severe STOMACH Verified 05/26/21 11:08 UPSET, ill Home Medications Medication Instructions Recorded Confirmed Last Taken Type multivitamin 1 tab PO DAILY 04/02/21 05/26/21 05/26/21 History amiodarone 200 mg tablet 200 mg PO DAILY 05/07/21 05/26/21 05/26/21 History furosemide 40 mg tablet 40 mg PO BID tab 05/07/21 05/26/21 05/26/21 History gemfibrozil 600 mg tablet 600 mg PO BID 05/07/21 05/26/21 05/26/21 History spironolactone 25 mg tablet 25 mg PO DAILY tab 05/07/21 05/26/21 05/26/21 History trazodone 50 mg tablet 50 mg PO BEDTIME 05/07/21 05/26/21 05/26/21 History zolpidem 10 mg tablet 10 mg PO BEDTIME 05/07/21 05/26/21 05/25/21 History ondansetron HCl 4 mg tablet 1 tab PO Q8H PRN 05/26/21 05/26/21 Unknown History valsartan 80 mg tablet 80 mg PO DAILY 05/26/21 05/26/21 05/26/21 History Physical Exam Vital Signs: Vital Signs: Last Vital Signs Temp 98.0 F 07/03/21 08:34 Pulse 76 07/03/21 09:36 Resp 18 07/03/21 10:36 BP 131/67 07/03/21 09:36 Pulse Ox 96 07/03/21 09:36 Body Mass Index 24.0 Const: General: ill appearing Nutritional Appearance: malnourished Orientation/consciousness: patient oriented x3 Limitations: no limitations HENMT: Head: Yes normocephalic and Yes atraumatic Neck: Neck: Yes no JVD Resp: Effort & Inspection: normal respiratory effort, no audible wheezes and no cough GI: Other: Intact sutures in the right flank with some discharge noted from the posterior wound. No surrounding erythema. Mild edema surrounding the incision. Right lower quadrant wound is clean and intact. Palpation (GI): Soft to palpation, nontender, no guarding and not rigid Skin: Other: As noted in abdomen above Neuro: General: patient oriented x3 Extrem: Other: Status post left BKA and right transmetatarsal amputation Results Results Labs: Short CBC 07/03/21 Range/Units 08:52 WBC 15.7 H (4.8-10.8) X10*3/uL Hgb 10.4 L (14.0-18.0) g/dl Hct 31.5 L (42-52) % Plt Count 370 D (160-400) X10*3/uL BMP 07/03/21 08:52 Sodium 139 Potassium 3.7 Chloride 103 Carbon Dioxide 25 BUN 14 Creatinine 0.75 Calcium 8.7 Liver Function 07/03/21 Range/Units 08:52 Total Bilirubin 0.7 (0.0-1.0) mg/dL AST 16 (5-37) U/L ALT 8 (0-40) U/L Alkaline Phosphatase 131 H D (39-117) U/L Albumin 3.2 L D (3.5-5.0) g/dL Abdomen CT scan report/results: image reviewed CT scan - pelvis: image reviewed Assessment and Plan (1) Diarrhea: Status: Acute (2) Abdominal wall abscess: Status: Acute Patient returns with abdominal pain, nausea, vomiting and diarrhea. Patient developed discharge from the lateral incision after the wound was completely healed. Examination today does reveal some greenish discharge from the lateral flank incision. Laboratories revealed elevated WBC however the CT does appear much improved prior scan. He will be admitted to the surgical service for IV antibiotics and management of his nausea and vomiting. He will require IV hydration as well. I have requested a hospitalist consult as well for his underlying medical issues. Quality Stroke Does the patient have a stroke diagnosis?: No VTE Prior VTE?: No VTE Risk Level:: Surgical - moderate VTE Device Contraindication: N/A - Device Ordered VTE Drug Contraindication: N/A - Med Ordered Procedures Date of Service Date of Service: 07/03/21
--- NOTE | 2021-07-03 13:07 | PC.NURSE ---
dressing changed per patient request
[2021-07-03] MEDS: Prochlorperazine Edisylate 10 MG/2 ML VIAL IVPUSH (13:17)
[2021-07-03] MEDS: Dextrose 5 % and 0.9 % NaCl 1,000 ML 100 ML IVCONT ×2 (14:31→22:58)
[2021-07-03] MEDS: HYDROmorphone HCl 0.5 MG/0.5 ML SYRINGE IVPUSH ×2 (14:35→17:37)
--- NOTE | 2021-07-03 14:37 | PC.NURSE ---
patient medicated for pain, ivf started per order
--- NOTE | 2021-07-03 14:42 | PC.NURSE ---
floor to call ed back to get report
--- NOTE | 2021-07-03 15:26 | PC.NURSE ---
This senior writer assisted in transporting pt to [facility] for admission. PJ bottoms removed and pt noted to have large open area to coccyx, buttocks. Pt also with (R) LE prostetic cover removed. Upon removal, 2 pressure ulcers noted on stump and draining purulent drainage.. S[facility] RN Edyta Subramanian aware wounds pressure on admission and is taking pictures for file. Wound care provided by Edyta Subramanian RN.
[2021-07-03] MEDS: 0.9 % Sodium Chloride Flush 3 ML SYRINGE IVFLUSH ×2 (15:47→20:45)
[2021-07-03 16:39] LABS: Glucose, Whole Blood 131 mg/dL (60-115)
[2021-07-03] MEDS: Furosemide 40 MG TABLET PO (16:45)
[2021-07-03] MEDS: Omeprazole 20 MG CAPSULE.DR PO (16:45)
[2021-07-03 20:30] LABS: Glucose, Whole Blood 130 mg/dL (60-115)
[2021-07-03] MEDS: Zolpidem Tartrate 5 MG TABLET 10 MG PO (20:44)
[2021-07-03] MEDS: traZODone HCL 50 MG TABLET PO (20:44)
[2021-07-03] MEDS: carvediloL 6.25 MG TABLET PO (20:45)
[2021-07-04] VITALS (10 sets, daily range): BP systolic 105–153; BP diastolic 50–71; PULSE 76–98; RESP 14–18; TEMP 36–36.7; O2SAT 94–100; BMI 24.0
[2021-07-04] MEDS: HYDROmorphone HCl 0.5 MG/0.5 ML SYRINGE IVPUSH ×4 (03:42→21:34)
[2021-07-04] MEDS: Piperacillin Sodium/Tazobactam 3.375 GM in 0.9 % Sodium Chloride 50 ML IV ×4 (03:45→21:28)
[2021-07-04] MEDS: Omeprazole 20 MG CAPSULE.DR PO ×2 (06:29→15:49)
[2021-07-04 07:11] LABS: MANUAL DIFF FLAG NO
[2021-07-04 07:15] LABS: Basophils Percent Auto 0.3 % (0-2); Eosinophils Absolute Auto 0.1 X10*3/uL (0.0-0.4); Hematocrit 27.2 % (42-52); Hemoglobin 8.8 g/dl (14.0-18.0); Imm Gran Abs Auto 0.05 X10*3/uL (0.00-0.03); Imm Gran Pct Auto 0.5 % (0.0-0.4); Lymphocytes Absolute Auto 0.7 X10*3/uL (1.2-4.9); Lymphocytes Percent Auto 5.9 % (20-40); Mean Corpuscular HGB Conc 32.4 g/dl (31.0-36.0); Mean Corpuscular Hemoglobin 28.9 pg (27.0-33.0); Mean Corpuscular Volume 89.2 fL (80-98); Mean Platelet Volume 9.4 fL (9.4-12.4); Monocytes Absolute Auto 0.6 X10*3/uL (0.1-1.2); Monocytes Percent Auto 5.6 % (2-11); Neutrophils Absolute Auto 9.7 X10*3/uL (2.0-8.3); Neutrophils Percent Auto 86.7 % (45-73); Platelet Count 298 X10*3/uL (160-400); Red Blood Count 3.05 X10*6/uL (4.60-5.80); Red Cell Distribution Width 15.8 % (11.0-16.0); White Blood Count 11.1 X10*3/uL (4.8-10.8)
[2021-07-04 07:47] LABS: Anion Gap 11 (12-20); Blood Urea Nitrogen 11 mg/dL (9-16); Calcium 8.1 mg/dL (8.4-10.2); Carbon Dioxide 26 mmol/L (22-29); Chloride 107 mmol/L (96-108); Creatinine Clr Calc Pharmacy 130.7; Estimated Glomerular Filt Rate > 60; Glucose Random 109 mg/dL (60-115); Potassium 3.1 mmol/L (3.3-5.1); Sodium 141 mmol/L (135-145)
[2021-07-04 07:52] LABS: Glucose, Whole Blood 113 mg/dL (60-115)
--- NOTE | 2021-07-04 08:43 | PM.IMCN ---
History of Present Illness Data of Consult Service Date: 07/04/21 Primary Care Provider: Connor Mcdaniel MD HPI Reason for consult: chf, dm, 61M with recent hisotry of perforated appendicitis and abd wall abscess s/p right hemicolectomy. now complaining of RLQ abdominal pain, nausea and vomitting. CT showed some improvement. patient admitted for iv antibiotics and symptom control. medical consult requested for comorbidities of DM, chornic systolic and diastolic chf, afib. Review of Systems Review of Systems: Constitutional: Denies fever, denies Chills Eyes: denies blurry vision ENT: denies sore throat CVS: denies chest pain Respiratory: Denies dyspnea GI: abdominal pain : denies dysuria MSK: denies neck pain Skin: denies rash Neuro: denies specific motor weakness Psych: denies suicidal ideation Endocrine: denies heat/cold intolerance Hematologic: denies easy bleeding Allergy: denies hives [facility] Medical History Abdominal wall abscess Acute appendicitis CHF (congestive heart failure) CHF (congestive heart failure) CVA (cerebral vascular accident) Diabetes Diabetes mellitus Heart disease Heart failure with reduced ejection fraction History of left below knee amputation HTN (hypertension) Ischemic cardiomyopathy Paroxysmal atrial fibrillation Family History Father Stroke Aortic valve replaced Mother No problems noted. Family history: reviewed and not pertinent Surgical History H/O exploratory laparotomy H/O right hemicolectomy History of transmetatarsal amputation of right foot Hx of cholecystectomy Social History Household Members: Family Household Members Other:: Mother- takes care of her Housing: House Do you presently have visiting nurse or other home services: No Alcohol intake: former Patient Tobacco Use Status: Former Tobacco user Use of substances other than those prescribed or required for medical reasons: No Currently Displaying Signs/Symptoms of Drug Intoxication Withdrawal: No Have you been hit, kicked, punched, or otherwise hurt by someone within the past year? If so, by whom?: No Do you feel safe in your current relationship?: Yes Is there a partner from a previous relationship who is making you feel unsafe now?: No Are you made to feel afraid or neglected: No Gnosticist Healthcare Practices: Mosque Advance Directives: Yes Advance Directives on File: Yes Advance Directives Date on File: 01/06/21 Do you have thoughts of harming others: None Do you have a plan to hurt others: No Plan Recently lost weight without trying: No Eating poorly because of decreased appetite: No Nutrition Risks: No Nutritional Risk Poor oral hygiene: No service: No Current occupational status: retired and disabled Meds Allergies Allergy/AdvReac Type Severity Reaction Status Date / Time vancomycin [VANCOMYCIN] Allergy Severe STOMACH Verified 05/26/21 11:08 UPSET, ill Active Medications: Current Medications Generic Name Dose Route Start Last Admin Trade Name Freq PRN Reason Stop Dose Admin Acetaminophen 650 mg 07/03/21 14:18 Acetaminophen 325 Mg Tablet PO Q6H PRN Pain, Mild (Pain Scale 1-3) Amiodarone HCl 200 mg 07/04/21 09:00 Amiodarone Hcl 200 Mg Tablet PO DAILY KANCHAN Carvedilol 6.25 mg 07/03/21 21:00 07/03/21 20:45 Carvedilol 6.25 Mg Tablet PO 6.25 mg BID KANCHAN Administration Protocol Dextrose 25 gm 07/03/21 16:18 Dextrose 50 % 25 Gm/50 Ml Vial IVPUSH Q15M PRN per Hypoglycemia Standing Ord. Protocol Furosemide 40 mg 07/03/21 17:00 07/03/21 16:45 Furosemide 40 Mg Tablet PO 40 mg BID@0800,1700 KANCHAN Administration Protocol Gemfibrozil 600 mg 07/04/21 07:30 Gemfibrozil 600 Mg Tablet PO BIDAC KANCHAN Glucose 15 gm 07/03/21 16:18 Glucose Gel 15 Gm Gel..Gram. PO Q15M PRN per Hypoglycemia Standing Ord. Protocol Hydromorphone HCl 0.5 mg 07/03/21 14:18 07/04/21 03:42 Hydromorphone Hcl 0.5 Mg/0.5 Ml Syringe IVPUSH 0.5 mg Q3H PRN Administration Pain, Severe (Pain Scale 7-10) Protocol Dextrose/Sodium Chloride 1,000 mls @ 100 mls/hr 07/03/21 14:18 07/03/21 22:58 D5ns IVCONT 100 mls/hr .Q10H KANCHAN Administration Piperacillin Sod/Tazobactam 50 mls @ 100 mls/hr 07/03/21 16:00 07/04/21 04:27 Sod 3.375 gm/ Sodium Chloride IV Infused Q6H KANCHAN Infusion Insulin Human Lispro 0 unit 07/03/21 16:30 07/03/21 20:45 Insulin Lispro 100 Unit/Ml 3 Ml Vial SUBCUT 07/04/21 16:19 Not Given QIDACHS [facility] Protocol Omeprazole 20 mg 07/03/21 16:30 07/04/21 06:29 Omeprazole 20 Mg Capsule. PO 20 mg BID@0630,1630 [facility] Administration Ondansetron HCl 4 mg 07/03/21 14:18 07/03/21 15:47 Ondansetron Hcl 4 Mg/2 Ml Vial IVPUSH 4 mg Q6H PRN Administration Nausea and Vomiting Oxycodone HCl 5 mg 07/03/21 16:20 Oxycodone Hcl Immed Release 5 Mg Tablet PO Q4H PRN Pain, Moderate (Pain Scale 4-6 Pharmacy Consult 1 each 07/03/21 14:18 Consult Rx Perform Med Rec MISCELLANE ONCE PRN Consult order Rivaroxaban 20 mg 07/04/21 17:00 Rivaroxaban 20 Mg Tablet PO DAILY@1700 [facility] Sodium Chloride 3 ml 07/03/21 16:00 07/03/21 20:45 0.9 % Sodium Chloride Flush 3 Ml Syringe IVFLUSH 3 ml QSHIFT [facility] Administration Spironolactone 25 mg 07/04/21 09:00 Spironolactone 25 Mg Tablet PO DAILY [facility] Protocol Trazodone HCl 50 mg 07/03/21 21:00 07/03/21 20:44 Trazodone Hcl 50 Mg Tablet PO 50 mg BEDTIME KANCHAN Administration Zolpidem Tartrate 10 mg 07/03/21 21:00 07/03/21 20:44 Zolpidem Tartrate 5 Mg Tablet PO 10 mg BEDTIME KANCHAN Administration Home Medications Medication Instructions Recorded Confirmed Last Taken Type amiodarone 200 mg tablet 200 mg PO DAILY 05/07/21 07/03/21 07/02/21 History furosemide 40 mg tablet 40 mg PO BID tab 05/07/21 07/03/21 07/02/21 History gemfibrozil 600 mg tablet 600 mg PO BID 05/07/21 07/03/21 07/02/21 History spironolactone 25 mg tablet 25 mg PO DAILY tab 05/07/21 07/03/21 07/02/21 History trazodone 50 mg tablet 50 mg PO BEDTIME 05/07/21 07/03/21 07/02/21 History zolpidem 10 mg tablet 10 mg PO BEDTIME 05/07/21 07/03/21 07/02/21 History omeprazole 20 mg capsule,delayed 1 cap PO BID 07/03/21 07/03/21 07/02/21 History release rivaroxaban 20 mg tablet (Xarelto) 1 tab PO DAILY 07/03/21 07/03/21 07/02/21 History Physical Exam Vital Signs and Narrative: Vital Signs: Last Vital Signs Temp 96.8 F 07/04/21 07:34 Pulse 77 07/04/21 07:34 Resp 18 07/04/21 07:34 BP 125/60 07/04/21 07:34 Pulse Ox 98 07/04/21 07:34 Body Mass Index 24.0 Const:?? General: ill appea ring? Nutritional Appearance: malnou rished? Orientatio n/consciousness: p atient oriented x3 ? Limitations: no limitations HENMT:?? Head: Yes normocep halic and Yes atra umatic Neck:?? Neck: Yes no JVD Resp:?? Effort & Inspectio n: normal respirat ory effort, no aud ible wheezes and n o cough GI:?? Other: Intact sutu res in the right f lank with some dis charge noted from the posterior woun d.? No surrounding erythema.? Mild e angela surrounding t he incision.? Righ t lower quadrant w ound is clean and intact.? Palpation (GI): Soft to pal pation, nontender, no guarding and n ot rigid Skin:?? Other: As noted in abdomen above Neuro:?? General: patient o riented x3 Extrem:?? Other: Status post left BKA and righ t transmetatarsal amputation Results Labs CBC and Chem 7: 07/04/21 06:48 07/04/21 06:48 Labs: Laboratory Results - last 24 hr 07/03/21 07/03/21 07/03/21 08:52 08:52 08:52 MCV 87.3 MCH 28.8 MCHC 33.0 RDW 15.3 Plt Count 370 D MPV 9.2 L Immature Gran % (Auto) 0.5 H Neut % (Auto) 89.9 H Lymph % (Auto) 4.7 L Brooke % (Auto) 4.2 Eos % (Auto) 0.5 Baso % (Auto) 0.2 Lymph # (Auto) 0.7 L Brooke # (Auto) 0.7 Eos # (Auto) 0.1 Baso # (Auto) 0.0 Abs Immat Gran (auto) 0.08 H Absolute Neuts (auto) 14.1 H Absolute Nucleated RBC 0.000 Nucleated RBC % (auto) 0.0 Anion Gap 15 Estim Creat Clear Calc 122.0 Estimated GFR > 60 POC Glucose Random Glucose 155 H Lactic Acid 1.9 Calcium 8.7 Total Bilirubin 0.7 AST 16 ALT 8 Alkaline Phosphatase 131 H D Total Protein 6.9 Albumin 3.2 L D COVID-19 (CAROLINE) COVID-19 Clin Com 07/03/21 07/03/21 07/03/21 11:19 16:35 20:26 MCV MCH MCHC RDW Plt Count MPV Immature Gran % (Auto) Neut % (Auto) Lymph % (Auto) Brooke % (Auto) Eos % (Auto) Baso % (Auto) Lymph # (Auto) Brooke # (Auto) Eos # (Auto) Baso # (Auto) Abs Immat Gran (auto) Absolute Neuts (auto) Absolute Nucleated RBC Nucleated RBC % (auto) Anion Gap Estim Creat Clear Calc Estimated GFR POC Glucose 131 H 130 H Random Glucose Lactic Acid Calcium Total Bilirubin AST ALT Alkaline Phosphatase Total Protein Albumin COVID-19 (CAROLINE) Negative COVID-19 Clin Com See Note 07/04/21 07/04/21 07/04/21 06:48 06:48 07:33 MCV 89.2 MCH 28.9 MCHC 32.4 RDW 15.8 Plt Count 298 MPV 9.4 Immature Gran % (Auto) 0.5 H Neut % (Auto) 86.7 H Lymph % (Auto) 5.9 L Brooke % (Auto) 5.6 Eos % (Auto) 1.0 Baso % (Auto) 0.3 Lymph # (Auto) 0.7 L Brooke # (Auto) 0.6 Eos # (Auto) 0.1 Baso # (Auto) 0.0 Abs Immat Gran (auto) 0.05 H Absolute Neuts (auto) 9.7 H Absolute Nucleated RBC 0.000 Nucleated RBC % (auto) 0.0 Anion Gap 11 L Estim Creat Clear Calc 130.7 Estimated GFR > 60 POC Glucose 113 Random Glucose 109 Lactic Acid Calcium 8.1 L D Total Bilirubin AST ALT Alkaline Phosphatase Total Protein Albumin COVID-19 (CAROLINE) COVID-19 Clin Com Imaging Radiologist's Impressions: Impressions Abdomen/Pelvis CT 07/03/21 08:57 IMPRESSION: Significant improvement in the air and fluid collection along the right lateral abdominal wall. Ascites is improved as well. There is mild intra-abdominal haziness likely edema or postsurgical changes. No free air seen. Right abdominal wall fistulous gas collection and the tract has improved significantly. Postsurgical changes are seen in the right lower abdomen and stable. Mild intrahepatic ductal dilatation. Evidence of previous cholecystectomy and an exophytic moderate-sized cyst mid to lower pole right kidney. Small right pleural effusion with bibasilar chronic atelectasis or scarring. Assessment and Plan (1) CHF (congestive heart failure): Status: Acute 61M presented with n/v abd pain ischemic cardiomyopathy hold lasix while getting fluids watch for fluid overload coreg, amio, aldactone DM insulin paroxysmal afib christinareljohn sky, carlee history of DVT christinarelto
[2021-07-04] MEDS: Spironolactone 25 MG TABLET PO (09:04)
[2021-07-04] MEDS: Amiodarone HCL 200 MG TABLET PO (09:05)
[2021-07-04] MEDS: gemfibroziL 600 MG TABLET PO ×2 (09:06→16:24)
[2021-07-04] MEDS: carvediloL 6.25 MG TABLET PO ×2 (09:06→21:29)
[2021-07-04] MEDS: Dextrose 5 % and 0.9 % NaCl 1,000 ML 100 ML IVCONT ×2 (09:09→21:27)
[2021-07-04 11:43] LABS: Glucose, Whole Blood 134 mg/dL (60-115)
--- NOTE | 2021-07-04 12:18 | MHC.CM.PN ---
Addendum entered by Joanne Mercer 07/04/21 12:20: CM RECEIVED CONFIRMATION, PT IS ACTIVE WITH [facility] FOR DETENTION Original Note: CM MET WITH PT WHO LIVES AT HOME WITH FAMILY AND IS INDEPENDENT WITH PERSONAL CARE. PT HAS A PROSTHETIC LEG AND CAN AMBULATE BUT ALSO HAS A W/C. PT CONFIRMS HIS PCP IS RONNIE MALONE. PT WAS ACTIVE WITH [facility], CM AWAITING CONFIRMATION OF CURRENT STATUS. IMM WAS DELIVERED PTS GOAL IS TO RETURN HOME WITH NA FAMILY TO TRANSPORT
--- NOTE | 2021-07-04 12:43 | MHC.CLN ---
NUTRITION/CONSULT PATIENT QUALIFIES MODERATELY MALNOURISHED. HAS SIGNIFICANT WEIGHT LOSS X 6 MONTHS AND MILD MUSCLE AND FAT DEPLETION. STAGE II WOUNDS PRESENT. DOES NOT WANT NUTRITIONAL SUPPLEMENTS. DIET IS REGULAR-LIBERALIZED DIET TO PROMOTE INTAKE FOR NUTRITION AND WOUND HEALING.
[2021-07-04] MEDS: 0.9 % Sodium Chloride Flush 3 ML SYRINGE IVFLUSH (15:50)
[2021-07-04] MEDS: Rivaroxaban 20 MG TABLET PO (16:24)
[2021-07-04 16:25] LABS: Glucose, Whole Blood 137 mg/dL (60-115)
[2021-07-04 20:54] LABS: Glucose, Whole Blood 137 mg/dL (60-115)
[2021-07-04] MEDS: traZODone HCL 50 MG TABLET PO (21:29)
[2021-07-04] MEDS: Zolpidem Tartrate 5 MG TABLET 10 MG PO (21:29)
[2021-07-05] VITALS (9 sets, daily range): BP systolic 131–160; BP diastolic 58–70; PULSE 74–87; RESP 15–20; TEMP 36.1–37.2; O2SAT 94–98
--- NOTE | 2021-07-05 | ECG_ITS ---
Test Reason : EW MED Blood Pressure : / mmHG Vent. Rate : 080 BPM Atrial Rate : 080 BPM P-R Int : 182 ms QRS Dur : 114 ms QT Int : 412 ms P-R-T Axes : 009 -57 087 degrees QTc Int : 475 ms Normal sinus rhythm Left axis deviation Inferior infarct (cited on or before 19-MAR-2019) Anteroseptal infarct (cited on or before 19-MAR-2019) Abnormal ECG When compared with ECG of 02-APR-2021 11:20, QRS duration has decreased Questionable change in initial forces of Lateral leads Referred By: Oscar Deleon Electronically Signed By:JHONY DELGADO
[2021-07-05] MEDS: Piperacillin Sodium/Tazobactam 3.375 GM in 0.9 % Sodium Chloride 50 ML IV ×4 (03:30→21:43)
[2021-07-05] MEDS: HYDROmorphone HCl 0.5 MG/0.5 ML SYRINGE IVPUSH ×2 (03:30→18:13)
[2021-07-05] MEDS: ondansetron HCL 4 MG/2 ML VIAL IVPUSH (03:37)
[2021-07-05] MEDS: Omeprazole 20 MG CAPSULE.DR PO ×2 (06:29→17:01)
[2021-07-05 07:53] LABS: Glucose, Whole Blood 130 mg/dL (60-115)
[2021-07-05] MEDS: carvediloL 6.25 MG TABLET PO ×2 (09:28→20:28)
[2021-07-05] MEDS: gemfibroziL 600 MG TABLET PO ×2 (09:28→17:01)
[2021-07-05] MEDS: Spironolactone 25 MG TABLET PO (09:28)
[2021-07-05] MEDS: Amiodarone HCL 200 MG TABLET PO (09:28)
[2021-07-05] MEDS: 0.9 % Sodium Chloride Flush 3 ML SYRINGE IVFLUSH ×2 (09:42→15:27)
--- NOTE | 2021-07-05 09:52 | HO.PM.IMPN ---
Subjective Subjective Date of Service: 07/05/21 Interval History: nausea Cardiovascular Cardiovascular: Reports no additional cardiovascular complaints Respiratory Respiratory: Reports no additional respiratory complaints Physical Exam Vital Signs: Vital Signs: Last Vital Signs Temp 97.4 F 07/05/21 07:35 Pulse 77 07/05/21 09:28 Resp 19 07/05/21 07:35 BP 140/62 H 07/05/21 09:28 Pulse Ox 98 07/05/21 07:35 Body Mass Index 24.0 Const General:?ill appearing Nutritional Appearance:?malnourished Orientation/consciousness:?patient oriented x3 Limitations:?no limitations HENMT Head:?Yes normocephalic and Yes atraumatic Neck Neck:?Yes no JVD Resp Effort & Inspection:?normal respiratory effort, no audible wheezes and no cough GI Other:?Intact sutures in the right flank with some discharge noted from the posterior wound.? No surrounding erythema.? Mild edema surrounding the incision.? Right lower quadrant wound is clean and intact. Palpation (GI):?Soft to palpation, nontender, no guarding and not rigid Skin Other:?As noted in abdomen above Neuro General:?patient oriented x3 Extrem Other:?Status post left BKA and right transmetatarsal amputation Objective Data Current Medications Generic Name Dose Route Start Last Admin Trade Name Freq PRN Reason Stop Dose Admin Acetaminophen 650 mg 07/03/21 14:18 Acetaminophen 325 Mg Tablet PO Q6H PRN Pain, Mild (Pain Scale 1-3) Amiodarone HCl 200 mg 07/04/21 09:00 07/05/21 09:28 Amiodarone Hcl 200 Mg Tablet PO 200 mg DAILY KANCHAN Administration Carvedilol 6.25 mg 07/03/21 21:00 07/05/21 09:28 Carvedilol 6.25 Mg Tablet PO 6.25 mg BID KANCHAN Administration Protocol Dextrose 25 gm 07/03/21 16:18 Dextrose 50 % 25 Gm/50 Ml Vial IVPUSH Q15M PRN per Hypoglycemia Standing Ord. Protocol Gemfibrozil 600 mg 07/04/21 07:30 07/05/21 09:28 Gemfibrozil 600 Mg Tablet PO 600 mg BIDAC KANCHAN Administration Glucose 15 gm 07/03/21 16:18 Glucose Gel 15 Gm Gel..Gram. PO Q15M PRN per Hypoglycemia Standing Ord. Protocol Hydromorphone HCl 0.5 mg 07/03/21 14:18 07/05/21 03:30 Hydromorphone Hcl 0.5 Mg/0.5 Ml Syringe IVPUSH 0.5 mg Q3H PRN Administration Pain, Severe (Pain Scale 7-10) Protocol Dextrose/Sodium Chloride 1,000 mls @ 100 mls/hr 07/03/21 14:18 07/05/21 09:41 D5ns IVCONT Not Given .Q10H KANCHAN Piperacillin Sod/Tazobactam 50 mls @ 100 mls/hr 07/03/21 16:00 07/05/21 09:29 Sod 3.375 gm/ Sodium Chloride IV 100 mls/hr Q6H KANCHAN Administration Omeprazole 20 mg 07/03/21 16:30 07/05/21 06:29 Omeprazole 20 Mg Capsule.Dr PO 20 mg BID@0630,1630 KANCHAN Administration Ondansetron HCl 4 mg 07/03/21 14:18 07/05/21 03:37 Ondansetron Hcl 4 Mg/2 Ml Vial IVPUSH 4 mg Q6H PRN Administration Nausea and Vomiting Oxycodone HCl 5 mg 07/03/21 16:20 Oxycodone Hcl Immed Release 5 Mg Tablet PO Q4H PRN Pain, Moderate (Pain Scale 4-6 Pharmacy Consult 1 each 07/03/21 14:18 Consult Rx Perform Med Rec MISCELLANE ONCE PRN Consult order Rivaroxaban 20 mg 07/04/21 17:00 07/04/21 16:24 Rivaroxaban 20 Mg Tablet PO 20 mg DAILY@1700 KANCHAN Administration Sodium Chloride 3 ml 07/03/21 16:00 07/05/21 09:42 0.9 % Sodium Chloride Flush 3 Ml Syringe IVFLUSH 3 ml QSHIFT KANCHAN Administration Spironolactone 25 mg 07/04/21 09:00 07/05/21 09:28 Spironolactone 25 Mg Tablet PO 25 mg DAILY KANCHAN Administration Protocol Trazodone HCl 50 mg 07/03/21 21:00 07/04/21 21:29 Trazodone Hcl 50 Mg Tablet PO 50 mg BEDTIME KANCHAN Administration Zolpidem Tartrate 10 mg 07/03/21 21:00 07/04/21 21:29 Zolpidem Tartrate 5 Mg Tablet PO 10 mg BEDTIME KANCHAN Administration Labs CBC & Chem 7: 07/04/21 06:48 07/04/21 06:48 Labs: Laboratory Results - last 24 hr 07/04/21 07/04/21 07/04/21 11:36 16:18 20:49 POC Glucose 134 H 137 H 137 H 07/05/21 07:39 POC Glucose 130 H Microbiology Microbiology Results: Microbiology 07/03/21 08:52 Blood Culture - Preliminary Blood - Venous No growth after 24 hours. 07/03/21 08:52 Blood Culture - Preliminary Blood - Venous No growth after 24 hours. Assessment and Plan (1) Abdominal wall abscess: Status: Acute Assessment and Plan: ? 61M presented with n/v abd pain ischemic cardiomyopathy lasix on hold while getting fluids watch for fluid overload, appears more dehydrated now due to vomitting. coreg, amio, aldactone DM insulin paroxysmal afib xarelto, amio, coreg history of DVT xarelto Quality Stroke Does the patient have a stroke diagnosis?: No VTE Prior VTE?: No VTE Risk Level:: Surgical - moderate VTE Device Contraindication: N/A - Device Ordered VTE Drug Contraindication: N/A - Med Ordered
--- NOTE | 2021-07-05 10:23 | PM.PNGS ---
Subjective Subjective Date of Service: 07/05/21 Interval history: Patient is feeling well, pain is well controlled. Nausea is improved with nausea medication. He tolerated breakfast well this am. Vital signs are within normal limits. Physical Exam Vital Signs: Vital Signs: Last Vital Signs Temp 97.4 F 07/05/21 07:35 Pulse 77 07/05/21 09:28 Resp 19 07/05/21 07:35 BP 140/62 H 07/05/21 09:28 Pulse Ox 98 07/05/21 07:35 Body Mass Index 24.0 Const: General: cooperative, healthy appearing, comfortable and no acute distress GI: Other: soft, nd, non-tender. Right lasteral abdominal wound with some purulent drainage with palpation. Dressing changed and wound packed. Procedures Date of Service Date of Service: 07/05/21 Progress Note: A&P Assessment and plan (1) Abdominal wall abscess: Status: Acute Assessment and Plan: Abdominal wall abscess/fistula. Wound draining spontaneously. Continue current daily dressing changes and zosyn for antibiotic coverage. Will continue antinausea medication as needed. Fall Risk Details Current Medications: Current Medications Generic Name Dose Route Start Last Admin Trade Name Freq PRN Reason Stop Dose Admin Acetaminophen 650 mg 07/03/21 14:18 Acetaminophen 325 Mg Tablet PO Q6H PRN Pain, Mild (Pain Scale 1-3) Amiodarone HCl 200 mg 07/04/21 09:00 07/05/21 09:28 Amiodarone Hcl 200 Mg Tablet PO 200 mg DAILY KANCHAN Administration Carvedilol 6.25 mg 07/03/21 21:00 07/05/21 09:28 Carvedilol 6.25 Mg Tablet PO 6.25 mg BID KANCHAN Administration Protocol Dextrose 25 gm 07/03/21 16:18 Dextrose 50 % 25 Gm/50 Ml Vial IVPUSH Q15M PRN per Hypoglycemia Standing Ord. Protocol Gemfibrozil 600 mg 07/04/21 07:30 07/05/21 09:28 Gemfibrozil 600 Mg Tablet PO 600 mg BIDAC KANCHAN Administration Glucose 15 gm 07/03/21 16:18 Glucose Gel 15 Gm Gel..Gram. PO Q15M PRN per Hypoglycemia Standing Ord. Protocol Hydromorphone HCl 0.5 mg 07/03/21 14:18 07/05/21 03:30 Hydromorphone Hcl 0.5 Mg/0.5 Ml Syringe IVPUSH 0.5 mg Q3H PRN Administration Pain, Severe (Pain Scale 7-10) Protocol Dextrose/Sodium Chloride 1,000 mls @ 100 mls/hr 07/03/21 14:18 07/05/21 09:41 D5ns IVCONT Not Given .Q10H KANCHAN Piperacillin Sod/Tazobactam 50 mls @ 100 mls/hr 07/03/21 16:00 07/05/21 09:29 Sod 3.375 gm/ Sodium Chloride IV 100 mls/hr Q6H [facility] Administration Omeprazole 20 mg 07/03/21 16:30 07/05/21 06:29 Omeprazole 20 Mg Capsule.Dr PO 20 mg BID@0630,1630 [facility] Administration Ondansetron HCl 4 mg 07/03/21 14:18 07/05/21 03:37 Ondansetron Hcl 4 Mg/2 Ml Vial IVPUSH 4 mg Q6H PRN Administration Nausea and Vomiting Oxycodone HCl 5 mg 07/03/21 16:20 Oxycodone Hcl Immed Release 5 Mg Tablet PO Q4H PRN Pain, Moderate (Pain Scale 4-6 Pharmacy Consult 1 each 07/03/21 14:18 Consult Rx Perform Med Rec MISCELLANE ONCE PRN Consult order Rivaroxaban 20 mg 07/04/21 17:00 07/04/21 16:24 Rivaroxaban 20 Mg Tablet PO 20 mg DAILY@1700 [facility] Administration Sodium Chloride 3 ml 07/03/21 16:00 07/05/21 09:42 0.9 % Sodium Chloride Flush 3 Ml Syringe IVFLUSH 3 ml QSHIFT K[facility]CHAN Administration Spironolactone 25 mg 07/04/21 09:00 07/05/21 09:28 Spironolactone 25 Mg Tablet PO 25 mg DAILY [facility] Administration Protocol Trazodone HCl 50 mg 07/03/21 21:00 07/04/21 21:29 Trazodone Hcl 50 Mg Tablet PO 50 mg BEDTIME [facility] Administration Zolpidem Tartrate 10 mg 07/03/21 21:00 07/04/21 21:29 Zolpidem Tartrate 5 Mg Tablet PO 10 mg BEDTIME K[facility]AN Administration Time Spent With Patient Time: Total time spent is greater than 50% in coordination of care (as documented) at patient's floor/unit and/or counseling patient: Time with patient: less than 15 minutes Quality Stroke Does the patient have a stroke diagnosis?: No VTE Prior VTE?: No VTE Risk Level:: Surgical - moderate VTE Device Contraindication: N/A - Device Ordered VTE Drug Contraindication: N/A - Med Ordered
[2021-07-05] MEDS: Dextrose 5 % and 0.9 % NaCl 1,000 ML 100 ML IVCONT ×2 (10:30→23:36)
[2021-07-05 11:46] LABS: Glucose, Whole Blood 169 mg/dL (60-115)
[2021-07-05] MEDS: Insulin Lispro 100 UNIT/ML 3 ML VIAL SUBCUT ×2 (12:27→20:28)
[2021-07-05 16:29] LABS: Glucose, Whole Blood 131 mg/dL (60-115)
[2021-07-05] MEDS: Rivaroxaban 20 MG TABLET PO (17:01)
[2021-07-05 20:09] LABS: Glucose, Whole Blood 192 mg/dL (60-115)
[2021-07-05] MEDS: Zolpidem Tartrate 5 MG TABLET 10 MG PO (20:28)
[2021-07-05] MEDS: traZODone HCL 50 MG TABLET PO (20:28)
[2021-07-06] VITALS (7 sets, daily range): BP systolic 129–147; BP diastolic 62–78; PULSE 82–94; RESP 16–19; TEMP 36.5–36.9; O2SAT 92–96
[2021-07-06] MEDS: HYDROmorphone HCl 0.5 MG/0.5 ML SYRINGE IVPUSH ×4 (00:58→20:46)
[2021-07-06] MEDS: Piperacillin Sodium/Tazobactam 3.375 GM in 0.9 % Sodium Chloride 50 ML IV ×4 (03:51→21:51)
[2021-07-06] MEDS: Omeprazole 20 MG CAPSULE.DR PO ×2 (06:18→16:05)
[2021-07-06 07:30] LABS: Glucose, Whole Blood 130 mg/dL (60-115)
--- NOTE | 2021-07-06 08:45 | HO.PM.IMPN ---
Subjective Subjective Date of Service: 07/06/21 Interval History: nausea improved with phenergan Cardiovascular Cardiovascular: Reports no additional cardiovascular complaints Respiratory Respiratory: Reports no additional respiratory complaints Physical Exam Vital Signs: Vital Signs: Last Vital Signs Temp 97.7 F 07/06/21 08:00 Pulse 84 07/06/21 08:00 Resp 18 07/06/21 08:00 BP 140/69 H 07/06/21 08:00 Pulse Ox 96 07/06/21 08:00 Body Mass Index 24.0 Const General:?ill appearing Nutritional Appearance:?malnourished Orientation/consciousness:?patient oriented x3 Limitations:?no limitations HENMT Head:?Yes normocephalic and Yes atraumatic Neck Neck:?Yes no JVD Resp Effort & Inspection:?normal respiratory effort, no audible wheezes and no cough Skin Other:?As noted in abdomen above Neuro General:?patient oriented x3 Extrem Other:?Status post left BKA and right transmetatarsal amputation Objective Data Current Medications Generic Name Dose Route Start Last Admin Trade Name Silvianoq PRN Reason Stop Dose Admin Acetaminophen 650 mg 07/03/21 14:18 Acetaminophen 325 Mg Tablet PO Q6H PRN Pain, Mild (Pain Scale 1-3) Amiodarone HCl 200 mg 07/04/21 09:00 07/05/21 09:28 Amiodarone Hcl 200 Mg Tablet PO 200 mg DAILY KANCHAN Administration Carvedilol 6.25 mg 07/03/21 21:00 07/05/21 20:28 Carvedilol 6.25 Mg Tablet PO 6.25 mg BID KANCHAN Administration Protocol Dextrose 25 gm 07/03/21 16:18 Dextrose 50 % 25 Gm/50 Ml Vial IVPUSH Q15M PRN per Hypoglycemia Standing Ord. Protocol Gemfibrozil 600 mg 07/04/21 07:30 07/05/21 17:01 Gemfibrozil 600 Mg Tablet PO 600 mg BIDAC KANCH[facility] Administration Glucose 15 gm 07/03/21 16:18 Glucose Gel 15 Gm Gel..Gram. PO Q15M PRN per Hypoglycemia Standing Ord. Protocol Hydromorphone HCl 0.5 mg 07/03/21 14:18 07/06/21 00:58 Hydromorphone Hcl 0.5 Mg/0.5 Ml Syringe IVPUSH 0.5 mg Q3H PRN Administration Pain, Severe (Pain Scale 7-10) Protocol Dextrose/Sodium Chloride 1,000 mls @ 100 mls/hr 07/03/21 14:18 07/05/21 23:36 D5ns IVCONT 100 mls/hr .Q10H [facility] Administration Piperacillin Sod/Tazobactam 50 mls @ 100 mls/hr 07/03/21 16:00 07/06/21 04:36 Sod 3.375 gm/ Sodium Chloride IV Infused Q6H [facility]AN[facility]AN Infusion Promethazine HCl 12.5 mg/ 50.5 mls @ 202 mls/hr 07/05/21 10:28 07/05/21 21:08 Sodium Chloride IV Infused Q4H PRN Infusion nausea Insulin Human Lispro 0 unit 07/05/21 16:30 07/06/21 07:33 Insulin Lispro 100 Unit/Ml 3 Ml Vial SUBCUT Not Given QIDACHS [facility] Protocol Omeprazole 20 mg 07/03/21 16:30 07/06/21 06:18 Omeprazole 20 Mg Capsule.Dr PO 20 mg BID@0630,1630 K[facility]CH[facility] Administration Ondansetron HCl 4 mg 07/03/21 14:18 07/05/21 03:37 Ondansetron Hcl 4 Mg/2 Ml Vial IVPUSH 4 mg Q6H PRN Administration Nausea and Vomiting Oxycodone HCl 5 mg 07/03/21 16:20 Oxycodone Hcl Immed Release 5 Mg Tablet PO Q4H PRN Pain, Moderate (Pain Scale 4-6 Pharmacy Consult 1 each 07/03/21 14:18 Consult Rx Perform Med Rec MISCELLANE ONCE PRN Consult order Rivaroxaban 20 mg 07/04/21 17:00 07/05/21 17:01 Rivaroxaban 20 Mg Tablet PO 20 mg DAILY@1700 [facility] Administration Sodium Chloride 3 ml 07/03/21 16:00 07/05/21 21:47 0.9 % Sodium Chloride Flush 3 Ml Syringe IVFLUSH Not Given QSHIFT [facility] Spironolactone 25 mg 07/04/21 09:00 07/05/21 09:28 Spironolactone 25 Mg Tablet PO 25 mg DAILY KANCHAN Administration Protocol Trazodone HCl 50 mg 07/03/21 21:00 07/05/21 20:28 Trazodone Hcl 50 Mg Tablet PO 50 mg BEDTIME KANCHAN Administration Zolpidem Tartrate 10 mg 07/03/21 21:00 07/05/21 20:28 Zolpidem Tartrate 5 Mg Tablet PO 10 mg BEDTIME KANCHAN Administration Labs CBC & Chem 7: 07/04/21 06:48 07/04/21 06:48 Labs: Laboratory Results - last 24 hr 07/05/21 07/05/21 07/05/21 11:13 16:24 20:01 POC Glucose 169 H 131 H 192 H 07/06/21 07:25 POC Glucose 130 H Microbiology Microbiology Results: Microbiology 07/03/21 08:52 Blood Culture - Preliminary Blood - Venous No growth after 48 hours. 07/03/21 08:52 Blood Culture - Preliminary Blood - Venous No growth after 48 hours. Assessment and Plan (1) Abdominal wall abscess: Status: Acute Assessment and Plan: ? 61M presented with n/v abd pain ischemic cardiomyopathy lasix on hold while getting fluids watch for fluid overload, appears euvolemic now coreg, amio, aldactone DM insulin paroxysmal afib xarelto, amio, coreg history of DVT xarelto Quality Stroke Does the patient have a stroke diagnosis?: No VTE Prior VTE?: No VTE Risk Level:: Surgical - moderate VTE Device Contraindication: N/A - Device Ordered VTE Drug Contraindication: N/A - Med Ordered
--- NOTE | 2021-07-06 08:52 | P.PNGS_ITS ---
Subjective Subjective Date of Service: 07/06/21 Interval history: No significant overnight events. Patient tolerating diet. Nausea resolved. Physical Exam Vital Signs: Vital Signs: Last Vital Signs Temp 97.7 F 07/06/21 08:00 Pulse 84 07/06/21 08:00 Resp 18 07/06/21 08:00 BP 140/69 H 07/06/21 08:00 Pulse Ox 96 07/06/21 08:00 Body Mass Index 24.0 Const: General: cooperative, healthy appearing, comfortable and no acute distress GI: Other: soft, nd, non-tender. Right lateral abdominal wound with serous dr gonzalez with palpation. Dressing changed and wound packed. Procedures Date of Service Date of Service: 07/06/21 Progress Note: A&P Assessment and plan (1) Abdominal wall abscess: Status: Acute Assessment and Plan: Abdominal wall abscess spontaneously draining now with only serous drainage Continue daily dressing changes with wet-to-dry dressing and continue Zosyn for IV antibiotics. Assessment and Plan: xarelto Fall Risk Details Current Medications: Current Medications Generic Name Dose Route Start Last Admin Trade Name Freq PRN Reason Stop Dose Admin Acetaminophen 650 mg 07/03/21 14:18 Acetaminophen 325 Mg Tablet PO Q6H PRN Pain, Mild (Pain Scale 1-3) Amiodarone HCl 200 mg 07/04/21 09:00 07/05/21 09:28 Amiodarone Hcl 200 Mg Tablet PO 200 mg DAILY KANCHAN Administration Carvedilol 6.25 mg 07/03/21 21:00 07/05/21 20:28 Carvedilol 6.25 Mg Tablet PO 6.25 mg BID KANCHAN Administration Protocol Dextrose 25 gm 07/03/21 16:18 Dextrose 50 % 25 Gm/50 Ml Vial IVPUSH Q15M PRN per Hypoglycemia Standing Ord. Protocol Gemfibrozil 600 mg 07/04/21 07:30 07/05/21 17:01 Gemfibrozil 600 Mg Tablet PO 600 mg BIDAC KANCHAN Administration Glucose 15 gm 07/03/21 16:18 Glucose Gel 15 Gm Gel..Gram. PO Q15M PRN per Hypoglycemia Standing Ord. Protocol Hydromorphone HCl 0.5 mg 07/03/21 14:18 07/06/21 00:58 Hydromorphone Hcl 0.5 Mg/0.5 Ml Syringe IVPUSH 0.5 mg Q3H PRN Administration Pain, Severe (Pain Scale 7-10) Protocol Dextrose/Sodium Chloride 1,000 mls @ 100 mls/hr 07/03/21 14:18 07/05/21 23:36 D5ns IVCONT 100 mls/hr .Q10H [facility]ANCHAN Administration Piperacillin Sod/Tazobactam 50 mls @ 100 mls/hr 07/03/21 16:00 07/06/21 04:36 Sod 3.375 gm/ Sodium Chloride IV Infused Q6H KANCHAN Infusion Promethazine HCl 12.5 mg/ 50.5 mls @ 202 mls/hr 07/05/21 10:28 07/05/21 21:08 Sodium Chloride IV Infused Q4H PRN Infusion nausea Insulin Human Lispro 0 unit 07/05/21 16:30 07/06/21 07:33 Insulin Lispro 100 Unit/Ml 3 Ml Vial SUBCUT Not Given QIDACHS [facility] Protocol Omeprazole 20 mg 07/03/21 16:30 07/06/21 06:18 Omeprazole 20 Mg Capsule.Dr PO 20 mg BID@0630,1630 [facility] Administration Ondansetron HCl 4 mg 07/03/21 14:18 07/05/21 03:37 Ondansetron Hcl 4 Mg/2 Ml Vial IVPUSH 4 mg Q6H PRN Administration Nausea and Vomiting Oxycodone HCl 5 mg 07/03/21 16:20 Oxycodone Hcl Immed Release 5 Mg Tablet PO Q4H PRN Pain, Moderate (Pain Scale 4-6 Pharmacy Consult 1 each 07/03/21 14:18 Consult Rx Perform Med Rec MISCELLANE ONCE PRN Consult order Rivaroxaban 20 mg 07/04/21 17:00 07/05/21 17:01 Rivaroxaban 20 Mg Tablet PO 20 mg DAILY@1700 [facility] Administration Sodium Chloride 3 ml 07/03/21 16:00 07/05/21 21:47 0.9 % Sodium Chloride Flush 3 Ml Syringe IVFLUSH Not Given QSHIFT [facility] Spironolactone 25 mg 07/04/21 09:00 07/05/21 09:28 Spironolactone 25 Mg Tablet PO 25 mg DAILY [facility] Administration Protocol Trazodone HCl 50 mg 07/03/21 21:00 07/05/21 20:28 Trazodone Hcl 50 Mg Tablet PO 50 mg BEDTIME KANCHAN Administration Zolpidem Tartrate 10 mg 07/03/21 21:00 07/05/21 20:28 Zolpidem Tartrate 5 Mg Tablet PO 10 mg BEDTIME KANCHAN Administration Time Spent With Patient Time: Total time spent is greater than 50% in coordination of care (as documented) at patient's floor/unit and/or counseling patient: Time with patient: less than 15 minutes Quality Stroke Does the patient have a stroke diagnosis?: No VTE Prior VTE?: No VTE Risk Level:: Surgical - moderate VTE Device Contraindication: N/A - Device Ordered VTE Drug Contraindication: N/A - Med Ordered
[2021-07-06] MEDS: Amiodarone HCL 200 MG TABLET PO (09:04)
[2021-07-06] MEDS: Spironolactone 25 MG TABLET PO (09:04)
[2021-07-06] MEDS: gemfibroziL 600 MG TABLET PO ×2 (09:04→16:05)
[2021-07-06] MEDS: carvediloL 6.25 MG TABLET PO ×2 (09:04→20:46)
[2021-07-06] MEDS: 0.9 % Sodium Chloride Flush 3 ML SYRINGE IVFLUSH ×2 (09:05→16:06)
[2021-07-06] MEDS: Dextrose 5 % and 0.9 % NaCl 1,000 ML 100 ML IVCONT (10:46)
[2021-07-06 11:51] LABS: Glucose, Whole Blood 178 mg/dL (60-115)
[2021-07-06] MEDS: Insulin Lispro 100 UNIT/ML 3 ML VIAL SUBCUT (12:10)
[2021-07-06] MEDS: Rivaroxaban 20 MG TABLET PO (16:05)
[2021-07-06 16:22] LABS: Glucose, Whole Blood 141 mg/dL (60-115)
[2021-07-06] MEDS: Zolpidem Tartrate 5 MG TABLET 10 MG PO (20:46)
[2021-07-06] MEDS: traZODone HCL 50 MG TABLET PO (20:46)
[2021-07-06 20:47] LABS: Glucose, Whole Blood 150 mg/dL (60-115)
[2021-07-07] VITALS (9 sets, daily range): BP systolic 126–143; BP diastolic 66–74; PULSE 82–86; RESP 16–20; TEMP 35.8–36.6; O2SAT 93–96
[2021-07-07] MEDS: 0.9 % Sodium Chloride Flush 3 ML SYRINGE IVFLUSH ×4 (00:31→21:06)
[2021-07-07] MEDS: HYDROmorphone HCl 0.5 MG/0.5 ML SYRINGE IVPUSH ×5 (00:37→21:00)
[2021-07-07] MEDS: Piperacillin Sodium/Tazobactam 3.375 GM in 0.9 % Sodium Chloride 50 ML IV ×4 (03:42→21:04)
[2021-07-07] MEDS: Omeprazole 20 MG CAPSULE.DR PO ×2 (06:24→17:05)
[2021-07-07 07:41] LABS: Glucose, Whole Blood 119 mg/dL (60-115)
[2021-07-07] MEDS: gemfibroziL 600 MG TABLET PO ×2 (08:35→17:05)
[2021-07-07] MEDS: Spironolactone 25 MG TABLET PO (08:35)
[2021-07-07] MEDS: Amiodarone HCL 200 MG TABLET PO (08:35)
[2021-07-07] MEDS: carvediloL 6.25 MG TABLET PO ×2 (08:35→20:59)
--- NOTE | 2021-07-07 11:32 | HO.PM.IMPN ---
Subjective Subjective Date of Service: 07/07/21 Interval History: some nausea but improved Cardiovascular Cardiovascular: Reports no additional cardiovascular complaints Respiratory Respiratory: Reports no additional respiratory complaints Physical Exam Vital Signs: Vital Signs: Last Vital Signs Temp 97.3 F 07/07/21 07:28 Pulse 86 07/07/21 07:28 Resp 18 07/07/21 07:28 BP 143/68 H 07/07/21 07:28 Pulse Ox 95 07/07/21 07:28 Body Mass Index 24.0 General: AO X 3, no acute distress Resp: CTA bilateral CVS: S1,S2,RRR Neuro: motor grossly intact Psych: appropriate affect left bka Objective Data Current Medications Generic Name Dose Route Start Last Admin Trade Name Freq PRN Reason Stop Dose Admin Acetaminophen 650 mg 07/03/21 14:18 Acetaminophen 325 Mg Tablet PO Q6H PRN Pain, Mild (Pain Scale 1-3) Amiodarone HCl 200 mg 07/04/21 09:00 07/07/21 08:35 Amiodarone Hcl 200 Mg Tablet PO 200 mg DAILY KANCHAN Administration Carvedilol 6.25 mg 07/03/21 21:00 07/07/21 08:35 Carvedilol 6.25 Mg Tablet PO 6.25 mg BID KANCHAN Administration Protocol Dextrose 25 gm 07/03/21 16:18 Dextrose 50 % 25 Gm/50 Ml Vial IVPUSH Q15M PRN per Hypoglycemia Standing Ord. Protocol Gemfibrozil 600 mg 07/04/21 07:30 07/07/21 08:35 Gemfibrozil 600 Mg Tablet PO 600 mg BIDAC KANCHAN Administration Glucose 15 gm 07/03/21 16:18 Glucose Gel 15 Gm Gel..Gram. PO Q15M PRN per Hypoglycemia Standing Ord. Protocol Hydromorphone HCl 0.5 mg 07/03/21 14:18 07/07/21 11:16 Hydromorphone Hcl 0.5 Mg/0.5 Ml Syringe IVPUSH 0.5 mg Q3H PRN Administration Pain, Severe (Pain Scale 7-10) Protocol Piperacillin Sod/Tazobactam 50 mls @ 100 mls/hr 07/03/21 16:00 07/07/21 10:43 Sod 3.375 gm/ Sodium Chloride IV Infused Q6H [facility]ANCHAN Infusion Promethazine HCl 12.5 mg/ 50.5 mls @ 202 mls/hr 07/05/21 10:28 07/07/21 06:43 Sodium Chloride IV Infused Q4H PRN Infusion nausea Insulin Human Lispro 0 unit 07/05/21 16:30 07/07/21 08:32 Insulin Lispro 100 Unit/Ml 3 Ml Vial SUBCUT Not Given QIDACHS [facility] Protocol Omeprazole 20 mg 07/03/21 16:30 07/07/21 06:24 Omeprazole 20 Mg Capsule.Dr PO 20 mg BID@0630,1630 KANCHAN Administration Ondansetron HCl 4 mg 07/03/21 14:18 07/05/21 03:37 Ondansetron Hcl 4 Mg/2 Ml Vial IVPUSH 4 mg Q6H PRN Administration Nausea and Vomiting Oxycodone HCl 5 mg 07/03/21 16:20 Oxycodone Hcl Immed Release 5 Mg Tablet PO Q4H PRN Pain, Moderate (Pain Scale 4-6 Pharmacy Consult 1 each 07/03/21 14:18 Consult Rx Perform Med Rec MISCELLANE ONCE PRN Consult order Rivaroxaban 20 mg 07/04/21 17:00 07/06/21 16:05 Rivaroxaban 20 Mg Tablet PO 20 mg DAILY@1700 [facility] Administration Sodium Chloride 3 ml 07/03/21 16:00 07/07/21 08:35 0.9 % Sodium Chloride Flush 3 Ml Syringe IVFLUSH 3 ml QSHIFT [facility] Administration Spironolactone 25 mg 07/04/21 09:00 07/07/21 08:35 Spironolactone 25 Mg Tablet PO 25 mg DAILY [facility]AN[facility]AN Administration Protocol Trazodone HCl 50 mg 07/03/21 21:00 07/06/21 20:46 Trazodone Hcl 50 Mg Tablet PO 50 mg BEDTIME [facility] Administration Zolpidem Tartrate 10 mg 07/03/21 21:00 07/06/21 20:46 Zolpidem Tartrate 5 Mg Tablet PO 10 mg BEDTIME KANCHAN Administration Labs CBC & Chem 7: 07/04/21 06:48 07/04/21 06:48 Labs: Laboratory Results - last 24 hr 07/06/21 07/06/21 07/06/21 11:25 16:18 20:38 POC Glucose 178 H 141 H 150 H 07/07/21 07:27 POC Glucose 119 H Assessment and Plan (1) Abdominal wall abscess: Status: Acute Assessment and Plan: ? 61M presented with n/v abd pain ischemic cardiomyopathy can restart lasix for maintance once reliably taking po coreg, amio, aldactone DM insulin paroxysmal afib xarelto, amio, coreg history of DVT xarelto Quality Stroke Does the patient have a stroke diagnosis?: No VTE Prior VTE?: No VTE Risk Level:: Surgical - moderate VTE Device Contraindication: N/A - Device Ordered VTE Drug Contraindication: N/A - Med Ordered
--- NOTE | 2021-07-07 13:03 | P.PNGS_ITS ---
Subjective Subjective Date of Service: 07/07/21 Interval history: No new complaints, feels the nausea is improved after starting Phenergan. Pain is controlled with current pain medications. He reports blistering on the left BKA stump which is inhibiting his ability to ambulate with a prosthesis. Physical Exam Vital Signs: Vital Signs: Last Vital Signs Temp 97.5 F 07/07/21 11:32 Pulse 84 07/07/21 11:32 Resp 18 07/07/21 11:32 BP 139/74 07/07/21 11:32 Pulse Ox 95 07/07/21 11:32 Body Mass Index 24.0 Const: General: no acute distress Orientation/consciousness: patient oriented x3 Limitations: no limitations Resp: Effort & Inspection: normal respiratory effort GI: Other: Open wound in the right flank. Wound was probed with a Q-tip and does extend more than 2 cm below the skin. Wound dressed with a pink foam dressing. No erythema noted in the surrounding skin. Skin: Other: As noted in abdomen above General skin exam: no rashes or lesions noted Neuro: General: patient oriented x3 Extrem: Other: Blister in left BKA stump as noted in HPI. Procedures Date of Service Date of Service: 07/07/21 Progress Note: A&P Assessment and plan (1) Abscess, intra-abdominal, postoperative: Status: Acute Assessment and Plan: Dressings changed today and wound is closing nicely. There is no surrounding erythema but continued drainage is noted which is serous in color. No fecal smell noted. Continue antibiotics and local wound care. Will attempt this out of bed tomorrow in anticipation of discharge to home. May need another 2-3 days before discharge. Fall Risk Details Current Medications: Current Medications Generic Name Dose Route Start Last Admin Trade Name Freq PRN Reason Stop Dose Admin Acetaminophen 650 mg 07/03/21 14:18 Acetaminophen 325 Mg Tablet PO Q6H PRN Pain, Mild (Pain Scale 1-3) Amiodarone HCl 200 mg 07/04/21 09:00 07/07/21 08:35 Amiodarone Hcl 200 Mg Tablet PO 200 mg DAILY KANCHAN Administration Carvedilol 6.25 mg 07/03/21 21:00 07/07/21 08:35 Carvedilol 6.25 Mg Tablet PO 6.25 mg BID KANCHAN Administration Protocol Dextrose 25 gm 07/03/21 16:18 Dextrose 50 % 25 Gm/50 Ml Vial IVPUSH Q15M PRN per Hypoglycemia Standing Ord. Protocol Gemfibrozil 600 mg 07/04/21 07:30 07/07/21 08:35 Gemfibrozil 600 Mg Tablet PO 600 mg BIDAC KANCHAN Administration Glucose 15 gm 07/03/21 16:18 Glucose Gel 15 Gm Gel..Gram. PO Q15M PRN per Hypoglycemia Standing Ord. Protocol Hydromorphone HCl 0.5 mg 07/03/21 14:18 07/07/21 11:16 Hydromorphone Hcl 0.5 Mg/0.5 Ml Syringe IVPUSH 0.5 mg Q3H PRN Administration Pain, Severe (Pain Scale 7-10) Protocol Piperacillin Sod/Tazobactam 50 mls @ 100 mls/hr 07/03/21 16:00 07/07/21 10:43 Sod 3.375 gm/ Sodium Chloride IV Infused Q6H [facility]ANCHAN Infusion Promethazine HCl 12.5 mg/ 50.5 mls @ 202 mls/hr 07/05/21 10:28 07/07/21 06:43 Sodium Chloride IV Infused Q4H PRN Infusion nausea Insulin Human Lispro 0 unit 07/05/21 16:30 07/07/21 11:37 Insulin Lispro 100 Unit/Ml 3 Ml [facility] Protocol Omeprazole 20 mg 07/03/21 16:30 07/07/21 06:24 Omeprazole 20 Mg Capsule. PO 20 mg BID@0630,1630 [facility] Administration Ondansetron HCl 4 mg 07/03/21 14:18 07/05/21 03:37 Ondansetron Hcl 4 Mg/2 Ml Vial IVPUSH 4 mg Q6H PRN Administration Nausea and Vomiting Oxycodone HCl 5 mg 07/03/21 16:20 Oxycodone Hcl Immed Release 5 Mg Tablet PO Q4H PRN Pain, Moderate (Pain Scale 4-6 Pharmacy Consult 1 each 07/03/21 14:18 Consult Rx Perform Med Rec MISCELLANE ONCE PRN Consult order Rivaroxaban 20 mg 07/04/21 17:00 07/06/21 16:05 Rivaroxaban 20 Mg Tablet PO 20 mg DAILY@1700 [facility] Administration Sodium Chloride 3 ml 07/03/21 16:00 07/07/21 08:35 0.9 % Sodium Chloride Flush 3 Ml Syringe IVFLUSH 3 ml QSHIFT [facility]CHAN Administration Spironolactone 25 mg 07/04/21 09:00 07/07/21 08:35 Spironolactone 25 Mg Tablet PO 25 mg DAILY [facility] Administration Protocol Trazodone HCl 50 mg 07/03/21 21:00 07/06/21 20:46 Trazodone Hcl 50 Mg Tablet PO 50 mg BEDTIME [facility] Administration Zolpidem Tartrate 10 mg 07/03/21 21:00 07/06/21 20:46 Zolpidem Tartrate 5 Mg Tablet PO 10 mg BEDTIME KANCHAN Administration Time Spent With Patient Time: Total time spent is greater than 50% in coordination of care (as documented) at patient's floor/unit and/or counseling patient: Time with patient: 15 - 24 minutes Quality Stroke Does the patient have a stroke diagnosis?: No VTE Prior VTE?: No VTE Risk Level:: Surgical - moderate VTE Device Contraindication: N/A - Device Ordered VTE Drug Contraindication: N/A - Med Ordered
[2021-07-07 13:19] LABS: Glucose, Whole Blood 125 mg/dL (60-115)
--- NOTE | 2021-07-07 14:49 | MHC.CLN ---
F/U INTAKE AT MEALS 75-100%. CONTINUE REGULAR DIET. NO NUTRITIONAL SUPPLEMENTS PER PATIENT REQUEST.
[2021-07-07 16:51] LABS: Glucose, Whole Blood 130 mg/dL (60-115)
[2021-07-07] MEDS: Rivaroxaban 20 MG TABLET PO (17:05)
[2021-07-07 20:38] LABS: Glucose, Whole Blood 108 mg/dL (60-115)
[2021-07-07] MEDS: traZODone HCL 50 MG TABLET PO (20:59)
[2021-07-07] MEDS: Zolpidem Tartrate 5 MG TABLET 10 MG PO (20:59)
[2021-07-08] VITALS (8 sets, daily range): BP systolic 118–142; BP diastolic 62–72; PULSE 75–90; RESP 18–19; TEMP 35.8–37.2; O2SAT 95–97
[2021-07-08] MEDS: HYDROmorphone HCl 0.5 MG/0.5 ML SYRINGE IVPUSH ×4 (01:55→20:27)
[2021-07-08] MEDS: Omeprazole 20 MG CAPSULE.DR PO ×2 (05:10→16:45)
[2021-07-08] MEDS: Piperacillin Sodium/Tazobactam 3.375 GM in 0.9 % Sodium Chloride 50 ML IV ×4 (05:11→20:34)
[2021-07-08 07:40] LABS: Glucose, Whole Blood 102 mg/dL (60-115)
--- NOTE | 2021-07-08 07:43 | P.PNGS_ITS ---
Subjective Subjective Date of Service: 07/08/21 Interval history: No new complaints; not eating much; complains of diarrhea. Denies significant abdominal pain. Physical Exam Vital Signs: Vital Signs: Last Vital Signs Temp 96.9 F 07/08/21 07:24 Pulse 83 07/08/21 07:24 Resp 18 07/08/21 07:24 BP 136/70 07/08/21 07:24 Pulse Ox 97 07/08/21 07:24 Body Mass Index 24.0 Const: General: comfortable and no acute distress Orientation/consciousness: patient oriented x3 Resp: Effort & Inspection: normal respiratory effort GI: Other: soft, nondistended, dressing changed, minimal serous discharge noted, nonfeculent. Percussion: Yes normal to percussion Skin: General skin exam: no rashes or lesions noted Neuro: General: patient oriented x3 Extrem: Other: ulceration left BKA stump Procedures Date of Service Date of Service: 07/08/21 Progress Note: A&P Assessment and plan (1) Abdominal wall abscess: Status: Acute Assessment and Plan: Overall, the abdominal wall abscess is much improved with decreased drainage and no surrounding redness. Continue IV antibiotics. Patient needs to start ambulating but he is reluctant to place prosthesis due to leg blisters. Continue to encourage increased po. Imodium for loose stools Fall Risk Details Current Medications: Current Medications Generic Name Dose Route Start Last Admin Trade Name Freq PRN Reason Stop Dose Admin Acetaminophen 650 mg 07/03/21 14:18 Acetaminophen 325 Mg Tablet PO Q6H PRN Pain, Mild (Pain Scale 1-3) Amiodarone HCl 200 mg 07/04/21 09:00 07/07/21 08:35 Amiodarone Hcl 200 Mg Tablet PO 200 mg DAILY KANCHAN Administration Carvedilol 6.25 mg 07/03/21 21:00 07/07/21 20:59 Carvedilol 6.25 Mg Tablet PO 6.25 mg BID KANCHAN Administration Protocol Dextrose 25 gm 07/03/21 16:18 Dextrose 50 % 25 Gm/50 Ml Vial IVPUSH Q15M PRN per Hypoglycemia Standing Ord. Protocol Gemfibrozil 600 mg 07/04/21 07:30 07/07/21 17:05 Gemfibrozil 600 Mg Tablet PO 600 mg BIDAC K[facility]CHAN Administration Glucose 15 gm 07/03/21 16:18 Glucose Gel 15 Gm Gel..Gram. PO Q15M PRN per Hypoglycemia Standing Ord. Protocol Hydromorphone HCl 0.5 mg 07/03/21 14:18 07/08/21 01:55 Hydromorphone Hcl 0.5 Mg/0.5 Ml Syringe IVPUSH 0.5 mg Q3H PRN Administration Pain, Severe (Pain Scale 7-10) Protocol Piperacillin Sod/Tazobactam 50 mls @ 100 mls/hr 07/03/21 16:00 07/08/21 05:44 Sod 3.375 gm/ Sodium Chloride IV Infused Q6H KANCHAN Infusion Promethazine HCl 12.5 mg/ 50.5 mls @ 202 mls/hr 07/05/21 10:28 07/07/21 19:27 Sodium Chloride IV Infused Q4H PRN Infusion nausea Insulin Human Lispro 0 unit 07/05/21 16:30 07/08/21 07:36 Insulin Lispro 100 Unit/Ml 3 Ml Vial SUBCUT Not Given QIDACHS [facility] Protocol Loperamide HCl 2 mg 07/08/21 07:29 Loperamide Hcl Oral Liquid 2 Mg/15 Ml Liquid PO Q6H PRN diarrhea Omeprazole 20 mg 07/03/21 16:30 07/08/21 05:10 Omeprazole 20 Mg Capsule.Dr PO 20 mg BID@0630,1630 [facility] Administration Ondansetron HCl 4 mg 07/03/21 14:18 07/05/21 03:37 Ondansetron Hcl 4 Mg/2 Ml Vial IVPUSH 4 mg Q6H PRN Administration Nausea and Vomiting Oxycodone HCl 5 mg 07/03/21 16:20 Oxycodone Hcl Immed Release 5 Mg Tablet PO Q4H PRN Pain, Moderate (Pain Scale 4-6 Pharmacy Consult 1 each 07/03/21 14:18 Consult Rx Perform Med Rec MISCELLANE ONCE PRN Consult order Rivaroxaban 20 mg 07/04/21 17:00 07/07/21 17:05 Rivaroxaban 20 Mg Tablet PO 20 mg DAILY@1700 [facility] Administration Sodium Chloride 3 ml 07/03/21 16:00 07/07/21 21:06 0.9 % Sodium Chloride Flush 3 Ml Syringe IVFLUSH 3 ml QSHIFT [facility] Administration Spironolactone 25 mg 07/04/21 09:00 07/07/21 08:35 Spironolactone 25 Mg Tablet PO 25 mg DAILY KANCHAN Administration Protocol Trazodone HCl 50 mg 07/03/21 21:00 07/07/21 20:59 Trazodone Hcl 50 Mg Tablet PO 50 mg BEDTIME K[facility]CHAN Administration Zolpidem Tartrate 10 mg 07/03/21 21:00 07/07/21 20:59 Zolpidem Tartrate 5 Mg Tablet PO 10 mg BEDTIME KANCHAN Administration Time Spent With Patient Time: Total time spent is greater than 50% in coordination of care (as documented) at patient's floor/unit and/or counseling patient: Time with patient: 15 - 24 minutes Quality Stroke Does the patient have a stroke diagnosis?: No VTE Prior VTE?: No VTE Risk Level:: Surgical - moderate VTE Device Contraindication: N/A - Device Ordered VTE Drug Contraindication: N/A - Med Ordered
--- NOTE | 2021-07-08 09:43 | P.PNIM_ITS ---
Subjective Subjective Date of Service: 07/08/21 Interval History: diarrhea Cardiovascular Cardiovascular: Reports no additional cardiovascular complaints Respiratory Respiratory: Reports no additional respiratory complaints Physical Exam Vital Signs: Vital Signs: Last Vital Signs Temp 96.9 F 07/08/21 07:24 Pulse 83 07/08/21 07:24 Resp 18 07/08/21 07:24 BP 136/70 07/08/21 07:24 Pulse Ox 97 07/08/21 07:24 Body Mass Index 24.0 Const General:?comfortable and no acute distress Orientation/consciousness:?patient oriented x3 Resp Effort & Inspection:?normal respiratory effort GI Other:?soft, nondistended, dressing changed, minimal serous discharge noted, nonfeculent.? Percussion:?Yes normal to percussion Skin General skin exam:?no rashes or lesions noted Neuro General:?patient oriented x3 Extrem Other:?ulceration left BKA stump Objective Data Current Medications Generic Name Dose Route Start Last Admin Trade Name Freq PRN Reason Stop Dose Admin Acetaminophen 650 mg 07/03/21 14:18 Acetaminophen 325 Mg Tablet PO Q6H PRN Pain, Mild (Pain Scale 1-3) Amiodarone HCl 200 mg 07/04/21 09:00 07/07/21 08:35 Amiodarone Hcl 200 Mg Tablet PO 200 mg DAILY KANCHAN Administration Carvedilol 6.25 mg 07/03/21 21:00 07/07/21 20:59 Carvedilol 6.25 Mg Tablet PO 6.25 mg BID KANCHAN Administration Protocol Dextrose 25 gm 07/03/21 16:18 Dextrose 50 % 25 Gm/50 Ml Vial IVPUSH Q15M PRN per Hypoglycemia Standing Ord. Protocol Gemfibrozil 600 mg 07/04/21 07:30 07/07/21 17:05 Gemfibrozil 600 Mg Tablet PO 600 mg BIDAC K[facility]CH[facility] Administration Glucose 15 gm 07/03/21 16:18 Glucose Gel 15 Gm Gel..Gram. PO Q15M PRN per Hypoglycemia Standing Ord. Protocol Hydromorphone HCl 0.5 mg 07/03/21 14:18 07/08/21 01:55 Hydromorphone Hcl 0.5 Mg/0.5 Ml Syringe IVPUSH 0.5 mg Q3H PRN Administration Pain, Severe (Pain Scale 7-10) Protocol Piperacillin Sod/Tazobactam 50 mls @ 100 mls/hr 07/03/21 16:00 07/08/21 05:44 Sod 3.375 gm/ Sodium Chloride IV Infused Q6H [facility] Infusion Promethazine HCl 12.5 mg/ 50.5 mls @ 202 mls/hr 07/05/21 10:28 07/07/21 19:27 Sodium Chloride IV Infused Q4H PRN Infusion nausea Insulin Human Lispro 0 unit 07/05/21 16:30 07/08/21 07:36 Insulin Lispro 100 Unit/Ml 3 Ml Vial SUBCUT Not Given QIDACHS [facility] Protocol Loperamide HCl 2 mg 07/08/21 07:29 Loperamide Hcl Oral Liquid 2 Mg/15 Ml Liquid PO Q6H PRN diarrhea Omeprazole 20 mg 07/03/21 16:30 07/08/21 05:10 Omeprazole 20 Mg Capsule.Dr PO 20 mg BID@0630,1630 [facility] Administration Ondansetron HCl 4 mg 07/03/21 14:18 07/05/21 03:37 Ondansetron Hcl 4 Mg/2 Ml Vial IVPUSH 4 mg Q6H PRN Administration Nausea and Vomiting Oxycodone HCl 5 mg 07/03/21 16:20 Oxycodone Hcl Immed Release 5 Mg Tablet PO Q4H PRN Pain, Moderate (Pain Scale 4-6 Pharmacy Consult 1 each 07/03/21 14:18 Consult Rx Perform Med Rec MISCELLANE ONCE PRN Consult order Rivaroxaban 20 mg 07/04/21 17:00 07/07/21 17:05 Rivaroxaban 20 Mg Tablet PO 20 mg DAILY@1700 [facility] Administration Sodium Chloride 3 ml 07/03/21 16:00 07/07/21 21:06 0.9 % Sodium Chloride Flush 3 Ml Syringe IVFLUSH 3 ml QSHIFT [facility] Administration Spironolactone 25 mg 07/04/21 09:00 07/07/21 08:35 Spironolactone 25 Mg Tablet PO 25 mg DAILY KANCHAN Administration Protocol Trazodone HCl 50 mg 07/03/21 21:00 07/07/21 20:59 Trazodone Hcl 50 Mg Tablet PO 50 mg BEDTIME [facility] Administration Zolpidem Tartrate 10 mg 07/03/21 21:00 07/07/21 20:59 Zolpidem Tartrate 5 Mg Tablet PO 10 mg BEDTIME KANCHAN Administration Labs CBC & Chem 7: 07/04/21 06:48 07/04/21 06:48 Labs: Laboratory Results - last 24 hr 07/07/21 07/07/21 07/07/21 11:30 16:32 20:29 POC Glucose 125 H 130 H 108 07/08/21 07:27 POC Glucose 102 Assessment and Plan (1) Abdominal wall abscess: Status: Acute Assessment and Plan: ? 61M presented with n/v abd pain ischemic cardiomyopathy coreg, amio, aldactone lasix on hold for now DM insulin paroxysmal afib xarelto, amio, coreg history of DVT xarelto Quality Stroke Does the patient have a stroke diagnosis?: No VTE Prior VTE?: No VTE Risk Level:: Surgical - moderate VTE Device Contraindication: N/A - Device Ordered VTE Drug Contraindication: N/A - Med Ordered
[2021-07-08] MEDS: carvediloL 6.25 MG TABLET PO ×2 (09:44→20:27)
[2021-07-08] MEDS: Spironolactone 25 MG TABLET PO (09:44)
[2021-07-08] MEDS: gemfibroziL 600 MG TABLET PO ×2 (09:44→16:45)
[2021-07-08] MEDS: Amiodarone HCL 200 MG TABLET PO (09:44)
[2021-07-08] MEDS: 0.9 % Sodium Chloride Flush 3 ML SYRINGE IVFLUSH ×3 (09:45→20:27)
[2021-07-08] MEDS: Loperamide HCl Oral Liquid 2 MG/15 ML LIQUID PO ×2 (09:47→18:40)
[2021-07-08 11:16] LABS: Glucose, Whole Blood 118 mg/dL (60-115)
[2021-07-08 16:24] LABS: Glucose, Whole Blood 130 mg/dL (60-115)
[2021-07-08] MEDS: Rivaroxaban 20 MG TABLET PO (16:45)
[2021-07-08 20:24] LABS: Glucose, Whole Blood 200 mg/dL (60-115)
[2021-07-08] MEDS: Zolpidem Tartrate 5 MG TABLET 10 MG PO (20:26)
[2021-07-08] MEDS: traZODone HCL 50 MG TABLET PO (20:26)
[2021-07-08] MEDS: Insulin Lispro 100 UNIT/ML 3 ML VIAL SUBCUT (20:26)
[2021-07-09] VITALS (11 sets, daily range): BP systolic 119–133; BP diastolic 64–66; PULSE 73–81; RESP 16–18; TEMP 36–36.9; O2SAT 95–98
[2021-07-09] MEDS: HYDROmorphone HCl 0.5 MG/0.5 ML SYRINGE IVPUSH ×6 (00:47→19:36)
[2021-07-09] MEDS: Piperacillin Sodium/Tazobactam 3.375 GM in 0.9 % Sodium Chloride 50 ML IV ×4 (03:37→21:21)
[2021-07-09] MEDS: Omeprazole 20 MG CAPSULE.DR PO ×2 (06:09→16:28)
[2021-07-09 07:52] LABS: Glucose, Whole Blood 114 mg/dL (60-115)
[2021-07-09] MEDS: Loperamide HCl Oral Liquid 2 MG/15 ML LIQUID PO (08:13)
[2021-07-09] MEDS: carvediloL 6.25 MG TABLET PO ×2 (08:13→21:20)
[2021-07-09] MEDS: Amiodarone HCL 200 MG TABLET PO (08:14)
[2021-07-09] MEDS: gemfibroziL 600 MG TABLET PO ×2 (08:14→16:28)
[2021-07-09] MEDS: Spironolactone 25 MG TABLET PO (08:14)
[2021-07-09] MEDS: 0.9 % Sodium Chloride Flush 3 ML SYRINGE IVFLUSH ×3 (08:14→21:22)
--- NOTE | 2021-07-09 09:43 | P.PNIM_ITS ---
Subjective Subjective Date of Service: 07/09/21 Interval History: about the same Cardiovascular Cardiovascular: Reports no additional cardiovascular complaints Respiratory Respiratory: Reports no additional respiratory complaints Physical Exam Vital Signs: Vital Signs: Last Vital Signs Temp 96.8 F 07/09/21 07:24 Pulse 74 07/09/21 08:14 Resp 18 07/09/21 08:13 BP 119/64 07/09/21 08:14 Pulse Ox 98 07/09/21 07:24 Body Mass Index 24.0 Const General:?comfortable and no acute distress Orientation/consciousness:?patient oriented x3 Resp Effort & Inspection:?normal respiratory effort GI Other:?soft, nondistended, dressing changed, minimal serous discharge noted, nonfeculent.? Percussion:?Yes normal to percussion Skin General skin exam:?no rashes or lesions noted Neuro General:?patient oriented x3 Extrem Other:?ulceration left BKA stump Objective Data Current Medications Generic Name Dose Route Start Last Admin Trade Name Freq PRN Reason Stop Dose Admin Acetaminophen 650 mg 07/03/21 14:18 Acetaminophen 325 Mg Tablet PO Q6H PRN Pain, Mild (Pain Scale 1-3) Amiodarone HCl 200 mg 07/04/21 09:00 07/09/21 08:14 Amiodarone Hcl 200 Mg Tablet PO 200 mg DAILY KANCHAN Administration Carvedilol 6.25 mg 07/03/21 21:00 07/09/21 08:13 Carvedilol 6.25 Mg Tablet PO 6.25 mg BID KANCHAN Administration Protocol Dextrose 25 gm 07/03/21 16:18 Dextrose 50 % 25 Gm/50 Ml Vial IVPUSH Q15M PRN per Hypoglycemia Standing Ord. Protocol Gemfibrozil 600 mg 07/04/21 07:30 07/09/21 08:14 Gemfibrozil 600 Mg Tablet PO 600 mg BIDAC KANCHAN Administration Glucose 15 gm 07/03/21 16:18 Glucose Gel 15 Gm Gel..Gram. PO Q15M PRN per Hypoglycemia Standing Ord. Protocol Hydromorphone HCl 0.5 mg 07/03/21 14:18 07/09/21 08:13 Hydromorphone Hcl 0.5 Mg/0.5 Ml Syringe IVPUSH 0.5 mg Q3H PRN Administration Pain, Severe (Pain Scale 7-10) Protocol Piperacillin Sod/Tazobactam 50 mls @ 100 mls/hr 07/03/21 16:00 07/09/21 04:14 Sod 3.375 gm/ Sodium Chloride IV Infused Q6H [facility]CHAN Infusion Promethazine HCl 12.5 mg/ 50.5 mls @ 202 mls/hr 07/05/21 10:28 07/08/21 14:47 Sodium Chloride IV Infused Q4H PRN Infusion nausea Insulin Human Lispro 0 unit 07/05/21 16:30 07/09/21 08:14 Insulin Lispro 100 Unit/Ml 3 Ml Vial SUBCUT Not Given QIDACHS [facility] Protocol Loperamide HCl 2 mg 07/08/21 07:29 07/09/21 08:13 Loperamide Hcl Oral Liquid 2 Mg/15 Ml Liquid PO 2 mg Q6H PRN Administration diarrhea Omeprazole 20 mg 07/03/21 16:30 07/09/21 06:09 Omeprazole 20 Mg Capsule.Dr PO 20 mg BID@0630,1630 [facility] Administration Ondansetron HCl 4 mg 07/03/21 14:18 07/05/21 03:37 Ondansetron Hcl 4 Mg/2 Ml Vial IVPUSH 4 mg Q6H PRN Administration Nausea and Vomiting Oxycodone HCl 5 mg 07/03/21 16:20 Oxycodone Hcl Immed Release 5 Mg Tablet PO Q4H PRN Pain, Moderate (Pain Scale 4-6 Pharmacy Consult 1 each 07/03/21 14:18 Consult Rx Perform Med Rec MISCELLANE ONCE PRN Consult order Rivaroxaban 20 mg 07/04/21 17:00 07/08/21 16:45 Rivaroxaban 20 Mg Tablet PO 20 mg DAILY@1700 [facility] Administration Sodium Chloride 3 ml 07/03/21 16:00 07/09/21 08:14 0.9 % Sodium Chloride Flush 3 Ml Syringe IVFLUSH 3 ml QSHIFT [facility] Administration Spironolactone 25 mg 07/04/21 09:00 07/09/21 08:14 Spironolactone 25 Mg Tablet PO 25 mg DAILY [facility]ANCHAN Administration Protocol Trazodone HCl 50 mg 07/03/21 21:00 07/08/21 20:26 Trazodone Hcl 50 Mg Tablet PO 50 mg BEDTIME [facility]CH[facility] Administration Zolpidem Tartrate 10 mg 07/03/21 21:00 07/08/21 20:26 Zolpidem Tartrate 5 Mg Tablet PO 10 mg BEDTIME KANCHAN Administration Labs CBC & Chem 7: 07/04/21 06:48 07/04/21 06:48 Labs: Laboratory Results - last 24 hr 07/08/21 07/08/21 07/08/21 11:06 16:11 20:19 POC Glucose 118 H 130 H 200 H 07/09/21 07:23 POC Glucose 114 Microbiology Microbiology Results: Microbiology 07/03/21 08:52 Blood Culture - Final Blood - Venous No growth after 5 days. 07/03/21 08:52 Blood Culture - Final Blood - Venous No growth after 5 days. Assessment and Plan (1) Abdominal wall abscess: Status: Acute Assessment and Plan: ? 61M presented with n/v abd pain ischemic cardiomyopathy coreg, amio, aldactone lasix on hold for now, no signs of fluid overload, monitor DM insulin paroxysmal afib xarelto, amio, coreg history of DVT xarelto Quality Stroke Does the patient have a stroke diagnosis?: No VTE Prior VTE?: No VTE Risk Level:: Surgical - moderate VTE Device Contraindication: N/A - Device Ordered VTE Drug Contraindication: N/A - Med Ordered
--- NOTE | 2021-07-09 09:51 | PC.NURSE ---
Patient refused to get out of bed. Pt educated on importance and possible ramifications of remaining in bed, pt continues to refuse
--- NOTE | 2021-07-09 10:15 | P.CDIC_ITS ---
CDI Concurrent Query Service Date: 07/09/21 Documentation Clarification: Please clarify if you are treating a proba ble/suspected/likely or confirmed: -Type (etiology) of ulcer/wound: -Diabetic ulcer -Venous stasis ulcer -Arterial (ischemic) ulcer -Pressure (decubitus) ulcer -Traumatic wound -Other -Unable to determine -For a non-pressure ulcer, please indicate the depth/severity: -Limited to the breakdown of skin -With fat layer exposed -With necrosis of muscle -With necrosis of bone -Other -Unable to determine -If a pressure ulcer, please also include the stage* of the ulcer: -Stage 1 - Skin intact, non-blanchable redness -Stage 2 - Partial thickness loss of dermis, includes intact or open blister -Stage 3 - Full thickness tissue not including bone, tendon, or muscle -Stage 4 - Full thickness tissue loss, including exposed bones, tendon, or muscle -Unstageable - Full thickness tissue loss in which the base of the ulcer is covered by slough (yellow, cheung, prado, green or brown) and/or eschar (cheung, brown, or black) in the wound bed. -Suspected deep tissue injury - Purple or maroon localized area of discolored intact skin or blood-filled blister due to damage of underlying soft tissues from pressure and/or shear. The area may be preceded by tissue that is painful, firm, mushy, boggy, warmer, or cooler as compare to adjacent tissue. -Unable to determine *Source: National Pressure Ulcer Advisory Panel (NPUAP) Use of terms such as suspected, likely, concern for, or probable (associated with a specific diagnosis that is being evaluated, monitored, or treated as if it exists) are acceptable and can be coded in the inpatient setting, when documented at the time of discharge. PLEASE DO NOT DELETE/MODIFY EXISTING CONTENT Additional information is needed in order to code to the highest accuracy and appropriate Severity of Illness (SOI). Please clarify the information noted below in your progress notes and discharge summary. Risk Factors/Clinical Indicators/Treatments Per MD progress note 07/08/21: ulceration left BKA stump CDS: Afia Zarate RN Contact Number: [phone] Please Review the information above and exercise your independent professional judgment in responding to the query. If you concur, pleas document in the PROGRESS NOTES and DISCHARGE SUMMARY. If you do not agree with the query, please document in the query above. THIS QUERY IS PART OF THE PERMANENT MEDICAL RECORD
[2021-07-09 11:33] LABS: Glucose, Whole Blood 185 mg/dL (60-115)
[2021-07-09] MEDS: Insulin Lispro 100 UNIT/ML 3 ML VIAL SUBCUT (11:37)
--- NOTE | 2021-07-09 12:48 | MHC.CM.PN ---
PT NOT YET CLEARED FOR DC. DC PLAN REMAINS HOME WITH [facility] OF [facility].
--- NOTE | 2021-07-09 13:25 | MHC.CLN ---
F/U EATING 25-100% OF MEALS. HNU=[phone]. CONTINUE REGULAR DIET-LIBERALIZED TO PROMOTE INTAKE AT MEALS.
--- NOTE | 2021-07-09 15:21 | PM.PNGS ---
Subjective Subjective Date of Service: 07/09/21 Interval history: Feels improved this morning with less nausea and vomiting. Still has some abdominal pain but feels this is improved. Had some drainage which was clear; dressing was changed low ready. Still reporting ulceration in the BKA stump has not gotten out of bed and ambulated. Physical Exam Vital Signs: Vital Signs: Last Vital Signs Temp 97.1 F 07/09/21 11:22 Pulse 73 07/09/21 11:22 Resp 16 07/09/21 13:11 BP 124/65 07/09/21 11:22 Pulse Ox 96 07/09/21 11:22 Body Mass Index 24.0 Const: General: cooperative and no acute distress Orientation/consciousness: patient oriented x3 GI: Other: Soft, nondistended, dressings clean dry and intact. No discharge noted on dressing. Skin: Other: Warm, dry, no rash Neuro: General: patient oriented x3 Extrem: Other: Open wound on knee and stump left leg, dressed with pink foam dressing. Procedures Date of Service Date of Service: 07/09/21 Progress Note: A&P Assessment and plan (1) Abdominal wall abscess: Status: Acute Assessment and Plan: Patient with a recent drainage procedure for abdominal wall abscess and retroperitoneal abscess. He returned with increased drainage associated with nausea and vomiting. The nausea vomiting is improved although his appetite is limited. He is tolerating muscle milk shakes which he likes. He has still not gotten out of bed since admission. He is encouraged to get out of bed and sit up in a chair. Wounds are looking improved with decreased discharge. Will continue the IV antibiotics, local wound care. P.o. as tolerated. Fall Risk Details Current Medications: Current Medications Generic Name Dose Route Start Last Admin Trade Name Freq PRN Reason Stop Dose Admin Acetaminophen 650 mg 07/03/21 14:18 Acetaminophen 325 Mg Tablet PO Q6H PRN Pain, Mild (Pain Scale 1-3) Amiodarone HCl 200 mg 07/04/21 09:00 07/09/21 08:14 Amiodarone Hcl 200 Mg Tablet PO 200 mg DAILY KANCHAN Administration Carvedilol 6.25 mg 07/03/21 21:00 07/09/21 08:13 Carvedilol 6.25 Mg Tablet PO 6.25 mg BID KANCHAN Administration Protocol Dextrose 25 gm 07/03/21 16:18 Dextrose 50 % 25 Gm/50 Ml Vial IVPUSH Q15M PRN per Hypoglycemia Standing Ord. Protocol Gemfibrozil 600 mg 07/04/21 07:30 07/09/21 08:14 Gemfibrozil 600 Mg Tablet PO 600 mg BIDAC KANCHAN Administration Glucose 15 gm 07/03/21 16:18 Glucose Gel 15 Gm Gel..Gram. PO Q15M PRN per Hypoglycemia Standing Ord. Protocol Hydromorphone HCl 0.5 mg 07/03/21 14:18 07/09/21 13:11 Hydromorphone Hcl 0.5 Mg/0.5 Ml Syringe IVPUSH 0.5 mg Q3H PRN Administration Pain, Severe (Pain Scale 7-10) Protocol Piperacillin Sod/Tazobactam 50 mls @ 100 mls/hr 07/03/21 16:00 07/09/21 10:22 Sod 3.375 gm/ Sodium Chloride IV Infused Q6H KANCHAN Infusion Promethazine HCl 12.5 mg/ 50.5 mls @ 202 mls/hr 07/05/21 10:28 07/09/21 15:12 Sodium Chloride IV 202 mls/hr Q4H PRN Administration nausea Insulin Human Lispro 0 unit 07/05/21 16:30 07/09/21 11:37 Insulin Lispro 100 Unit/Ml 3 Ml Vial SUBCUT 2 unit QIDACHS [facility] Administration Protocol Loperamide HCl 2 mg 07/08/21 07:29 07/09/21 08:13 Loperamide Hcl Oral Liquid 2 Mg/15 Ml Liquid PO 2 mg Q6H PRN Administration diarrhea Omeprazole 20 mg 07/03/21 16:30 07/09/21 06:09 Omeprazole 20 Mg Capsule.Dr PO 20 mg BID@0630,1630 [facility] Administration Ondansetron HCl 4 mg 07/03/21 14:18 07/05/21 03:37 Ondansetron Hcl 4 Mg/2 Ml Vial IVPUSH 4 mg Q6H PRN Administration Nausea and Vomiting Oxycodone HCl 5 mg 07/03/21 16:20 Oxycodone Hcl Immed Release 5 Mg Tablet PO Q4H PRN Pain, Moderate (Pain Scale 4-6 Pharmacy Consult 1 each 07/03/21 14:18 Consult Rx Perform Med Rec MISCELLANE ONCE PRN Consult order Rivaroxaban 20 mg 07/04/21 17:00 07/08/21 16:45 Rivaroxaban 20 Mg Tablet PO 20 mg DAILY@1700 [facility] Administration Sodium Chloride 3 ml 07/03/21 16:00 07/09/21 15:13 0.9 % Sodium Chloride Flush 3 Ml Syringe IVFLUSH 3 ml QSHIFT [facility] Administration Spironolactone 25 mg 07/04/21 09:00 07/09/21 08:14 Spironolactone 25 Mg Tablet PO 25 mg DAILY [facility] Administration Protocol Trazodone HCl 50 mg 07/03/21 21:00 07/08/21 20:26 Trazodone Hcl 50 Mg Tablet PO 50 mg BEDTIME [facility] Administration Zolpidem Tartrate 10 mg 07/03/21 21:00 07/08/21 20:26 Zolpidem Tartrate 5 Mg Tablet PO 10 mg BEDTIME KANCHAN Administration Time Spent With Patient Time: Total time spent is greater than 50% in coordination of care (as documented) at patient's floor/unit and/or counseling patient: Time with patient: 15 - 24 minutes Quality Stroke Does the patient have a stroke diagnosis?: No VTE Prior VTE?: No VTE Risk Level:: Surgical - moderate VTE Device Contraindication: N/A - Device Ordered VTE Drug Contraindication: N/A - Med Ordered
[2021-07-09 16:26] LABS: Glucose, Whole Blood 120 mg/dL (60-115)
[2021-07-09] MEDS: Rivaroxaban 20 MG TABLET PO (16:28)
[2021-07-09 20:33] LABS: Glucose, Whole Blood 134 mg/dL (60-115)
[2021-07-09] MEDS: Zolpidem Tartrate 5 MG TABLET 10 MG PO (21:21)
[2021-07-09] MEDS: traZODone HCL 50 MG TABLET PO (21:21)
[2021-07-10] VITALS (9 sets, daily range): BP systolic 119–135; BP diastolic 64–72; PULSE 77–85; RESP 15–20; TEMP 35.9–36.4; O2SAT 91–96
[2021-07-10] MEDS: HYDROmorphone HCl 0.5 MG/0.5 ML SYRINGE IVPUSH ×6 (00:08→21:07)
[2021-07-10] MEDS: Piperacillin Sodium/Tazobactam 3.375 GM in 0.9 % Sodium Chloride 50 ML IV ×4 (03:41→21:57)
[2021-07-10] MEDS: Omeprazole 20 MG CAPSULE.DR PO ×2 (05:43→17:14)
[2021-07-10 06:19] LABS: Hematocrit 26.8 % (42-52); Hemoglobin 8.5 g/dl (14.0-18.0); Mean Corpuscular HGB Conc 31.7 g/dl (31.0-36.0); Mean Corpuscular Volume 91.5 fL (80-98); Mean Platelet Volume 10.2 fL (9.4-12.4); Platelet Count 240 X10*3/uL (160-400); Red Blood Count 2.93 X10*6/uL (4.60-5.80); Red Cell Distribution Width 16.4 % (11.0-16.0); White Blood Count 12.7 X10*3/uL (4.8-10.8)
[2021-07-10 06:50] LABS: Anion Gap 8 (12-20); Blood Urea Nitrogen 11 mg/dL (9-16); Calcium 8.1 mg/dL (8.4-10.2); Carbon Dioxide 26 mmol/L (22-29); Chloride 108 mmol/L (96-108); Creatinine Clr Calc Pharmacy 134.6; Estimated Glomerular Filt Rate > 60; Glucose Fasting 160 mg/dL (60-99); Magnesium 1.6 mg/dL (1.6-2.6); Potassium 3.9 mmol/L (3.3-5.1); Sodium 138 mmol/L (135-145)
[2021-07-10 08:10] LABS: Glucose, Whole Blood 138 mg/dL (60-115)
[2021-07-10] MEDS: 0.9 % Sodium Chloride Flush 3 ML SYRINGE IVFLUSH ×2 (09:33→17:14)
[2021-07-10] MEDS: carvediloL 6.25 MG TABLET PO ×2 (09:42→21:09)
[2021-07-10] MEDS: gemfibroziL 600 MG TABLET PO ×2 (09:42→17:14)
[2021-07-10] MEDS: Spironolactone 25 MG TABLET PO (09:42)
[2021-07-10] MEDS: Amiodarone HCL 200 MG TABLET PO (09:42)
--- NOTE | 2021-07-10 09:44 | P.PNIM_ITS ---
Subjective Subjective Date of Service: 07/10/21 Interval History: f/u on abdminal wall abscess, medical issues seem stable Review of Systems Gen: no fever Resp: no sob, no cough CV: no chest, no AIKEN, no leg edema GI: No n/v, no abd pain Neuro: No confusion Physical Exam Vital Signs: Vital Signs: Last Vital Signs Temp 97.2 F 07/10/21 07:32 Pulse 81 07/10/21 07:32 Resp 18 07/10/21 07:32 BP 135/72 07/10/21 07:32 Pulse Ox 96 07/10/21 07:32 General: AO X 3, no acute distress Resp: CTA bilateral CVS: S1,S2,RRR GI: +BS, NT, no distention Skin: No rash Neuro: motor grossly intact Psych: appropriate affect Objective Data Current Medications Generic Name Dose Route Start Last Admin Trade Name Freq PRN Reason Stop Dose Admin Acetaminophen 650 mg 07/03/21 14:18 Acetaminophen 325 Mg Tablet PO Q6H PRN Pain, Mild (Pain Scale 1-3) Amiodarone HCl 200 mg 07/04/21 09:00 07/10/21 09:42 Amiodarone Hcl 200 Mg Tablet PO 200 mg DAILY KANCHAN Administration Carvedilol 6.25 mg 07/03/21 21:00 07/10/21 09:42 Carvedilol 6.25 Mg Tablet PO 6.25 mg BID KANCHAN Administration Protocol Dextrose 25 gm 07/03/21 16:18 Dextrose 50 % 25 Gm/50 Ml Vial IVPUSH Q15M PRN per Hypoglycemia Standing Ord. Protocol Gemfibrozil 600 mg 07/04/21 07:30 07/10/21 09:42 Gemfibrozil 600 Mg Tablet PO 600 mg BIDAC KANCHAN Administration Glucose 15 gm 07/03/21 16:18 Glucose Gel 15 Gm Gel..Gram. PO Q15M PRN per Hypoglycemia Standing Ord. Protocol Hydromorphone HCl 0.5 mg 07/03/21 14:18 07/10/21 09:34 Hydromorphone Hcl 0.5 Mg/0.5 Ml Syringe IVPUSH 0.5 mg Q3H PRN Administration Pain, Severe (Pain Scale 7-10) Protocol Piperacillin Sod/Tazobactam 50 mls @ 100 mls/hr 07/03/21 16:00 07/10/21 09:33 Sod 3.375 gm/ Sodium Chloride IV 100 mls/hr Q6H KANCHAN Administration Promethazine HCl 12.5 mg/ 50.5 mls @ 202 mls/hr 07/05/21 10:28 07/09/21 15:32 Sodium Chloride IV Infused Q4H PRN Infusion nausea Insulin Human Lispro 0 unit 07/05/21 16:30 07/10/21 08:17 Insulin Lispro 100 Unit/Ml 3 Ml Vial SUBCUT Not Given QIDACHS [facility] Protocol Loperamide HCl 2 mg 07/08/21 07:29 07/09/21 08:13 Loperamide Hcl Oral Liquid 2 Mg/15 Ml Liquid PO 2 mg Q6H PRN Administration diarrhea Omeprazole 20 mg 07/03/21 16:30 07/10/21 05:43 Omeprazole 20 Mg Capsule.Dr PO 20 mg BID@0630,1630 KANCHAN Administration Ondansetron HCl 4 mg 07/03/21 14:18 07/05/21 03:37 Ondansetron Hcl 4 Mg/2 Ml Vial IVPUSH 4 mg Q6H PRN Administration Nausea and Vomiting Oxycodone HCl 5 mg 07/03/21 16:20 Oxycodone Hcl Immed Release 5 Mg Tablet PO Q4H PRN Pain, Moderate (Pain Scale 4-6 Pharmacy Consult 1 each 07/03/21 14:18 Consult Rx Perform Med Rec MISCELLANE ONCE PRN Consult order Rivaroxaban 20 mg 07/04/21 17:00 07/09/21 16:28 Rivaroxaban 20 Mg Tablet PO 20 mg DAILY@1700 KANCHAN Administration Sodium Chloride 3 ml 07/03/21 16:00 07/10/21 09:33 0.9 % Sodium Chloride Flush 3 Ml Syringe IVFLUSH 3 ml QSHIFT KANCHAN Administration Spironolactone 25 mg 07/04/21 09:00 07/10/21 09:42 Spironolactone 25 Mg Tablet PO 25 mg DAILY KANCHAN Administration Protocol Trazodone HCl 50 mg 07/03/21 21:00 07/09/21 21:21 Trazodone Hcl 50 Mg Tablet PO 50 mg BEDTIME KANCHAN Administration Zolpidem Tartrate 10 mg 07/03/21 21:00 07/09/21 21:21 Zolpidem Tartrate 5 Mg Tablet PO 10 mg BEDTIME KANCHAN Administration Labs CBC & Chem 7: 07/10/21 05:58 07/10/21 05:58 Labs: Laboratory Results - last 24 hr 07/09/21 07/09/21 07/09/21 11:22 16:15 20:21 MCV MCH MCHC RDW Plt Count MPV Absolute Nucleated RBC Nucleated RBC % (auto) Anion Gap Estim Creat Clear Calc Estimated GFR POC Glucose 185 H 120 H 134 H Fasting Glucose Calcium Magnesium 07/10/21 07/10/21 07/10/21 05:58 05:58 07:32 MCV 91.5 MCH 29.0 MCHC 31.7 RDW 16.4 H Plt Count 240 MPV 10.2 Absolute Nucleated RBC 0.000 Nucleated RBC % (auto) 0.0 Anion Gap 8 L Estim Creat Clear Calc 134.6 Estimated GFR > 60 POC Glucose 138 H Fasting Glucose 160 H Calcium 8.1 L Magnesium 1.6 Assessment and Plan (1) Abdominal wall abscess: Status: Acute Assessment and Plan: 61 year old male with DM, AFIB, CAD, CAD, CM with combined systolic and juan francisco stolic Heart failure here with with 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 Previously was on Valsartan not sure why not on it. Lasix has been on hold Diabetes-- blood sugars stable continue, SSI, and diabetic? diet Paroxysmal atrial fibrillation--rate controlled, continue Coreg, Amiodarone, and? Xarelto Mild protein calory malnutrition--supplement (muscle milk shakes) Hypertriglyceredemia--Lopid h/o DVT:? Xarelto Encourage out of bed, ambulate Quality Stroke Does the patient have a stroke diagnosis?: No VTE Prior VTE?: No VTE Risk Level:: Surgical - moderate VTE Device Contraindication: N/A - Device Ordered VTE Drug Contraindication: N/A - Med Ordered
[2021-07-10 12:17] LABS: Glucose, Whole Blood 155 mg/dL (60-115)
--- NOTE | 2021-07-10 13:03 | P.PNGS_ITS ---
Subjective Subjective Date of Service: 07/10/21 Interval history: Still not much of an appetite. He does report less nausea however. Abdominal pain is well controlled. Drainage seems to be slowing down as well. Physical Exam Vital Signs: Vital Signs: Last Vital Signs Temp 97.4 F 07/10/21 11:14 Pulse 80 07/10/21 11:14 Resp 18 07/10/21 11:14 BP 133/68 07/10/21 11:14 Pulse Ox 94 07/10/21 11:14 Body Mass Index 24.0 Const: General: no acute distress Orientation/consciousness: patient oriented x3 Limitations: no limitations Resp: Effort & Inspection: normal respiratory effort GI: Other: Open wound in the right lateral flank appears to be filling in significantly. Drainage is thin with a slight greenish tinged. No surrounding erythema. No tenderness to palpation. 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 This is from prior trauma which occurred at home. Procedures Date of Service Date of Service: 07/10/21 Progress Note: A&P Assessment and plan (1) Abscess, intra-abdominal, postoperative: Status: Acute Assessment and Plan: Patient with a recent drainage procedure for abdominal wall abscess and retroperitoneal abscess.? He returned with increased drainage associated with nausea and vomiting.? The nausea vomiting is improved although his appetite is limited.? He is tolerating muscle milk shakes brought in by his brother, which he likes.? He is able to get out of bed at this time due to the left BKA wound. Will continue antibiotics and check CBC in a.m.. Fall Risk Details Current Medications: Current Medications Generic Name Dose Route Start Last Admin Trade Name Freq PRN Reason Stop Dose Admin Acetaminophen 650 mg 07/03/21 14:18 Acetaminophen 325 Mg Tablet PO Q6H PRN Pain, Mild (Pain Scale 1-3) Amiodarone HCl 200 mg 07/04/21 09:00 07/10/21 09:42 Amiodarone Hcl 200 Mg Tablet PO 200 mg DAILY KANCHAN Administration Carvedilol 6.25 mg 07/03/21 21:00 07/10/21 09:42 Carvedilol 6.25 Mg Tablet PO 6.25 mg BID KANCHAN Administration Protocol Dextrose 25 gm 07/03/21 16:18 Dextrose 50 % 25 Gm/50 Ml Vial IVPUSH Q15M PRN per Hypoglycemia Standing Ord. Protocol Gemfibrozil 600 mg 07/04/21 07:30 07/10/21 09:42 Gemfibrozil 600 Mg Tablet PO 600 mg BIDAC KANCHAN Administration Glucose 15 gm 07/03/21 16:18 Glucose Gel 15 Gm Gel..Gram. PO Q15M PRN per Hypoglycemia Standing Ord. Protocol Hydromorphone HCl 0.5 mg 07/03/21 14:18 07/10/21 09:34 Hydromorphone Hcl 0.5 Mg/0.5 Ml Syringe IVPUSH 0.5 mg Q3H PRN Administration Pain, Severe (Pain Scale 7-10) Protocol Piperacillin Sod/Tazobactam 50 mls @ 100 mls/hr 07/03/21 16:00 07/10/21 10:23 Sod 3.375 gm/ Sodium Chloride IV Infused Q6H KANCHAN Infusion Promethazine HCl 12.5 mg/ 50.5 mls @ 202 mls/hr 07/05/21 10:28 07/09/21 15:32 Sodium Chloride IV Infused Q4H PRN Infusion nausea Insulin Human Lispro 0 unit 07/05/21 16:30 07/10/21 12:24 Insulin Lispro 100 Unit/Ml 3 M[facility]UT [facility] Loper[facility] HCl 2 mg 07/08/21 07:29 07/09/21 08:13 Loperamide Hcl Oral Liquid 2 Mg/15 Ml Liquid PO 2 mg Q6H PRN Administration diarrhea Omeprazole 20 mg 07/03/21 16:30 07/10/21 05:43 Omeprazole 20 Mg Capsule.Dr PO 20 mg BID@0630,1630 KANCHAN Administration Ondansetron HCl 4 mg 07/03/21 14:18 07/05/21 03:37 Ondansetron Hcl 4 Mg/2 Ml Vial IVPUSH 4 mg Q6H PRN Administration Nausea and Vomiting Oxycodone HCl 5 mg 07/03/21 16:20 Oxycodone Hcl Immed Release 5 Mg Tablet PO Q4H PRN Pain, Moderate (Pain Scale 4-6 Pharmacy Consult 1 each 07/03/21 14:18 Consult Rx Perform Med Rec MISCELLANE ONCE PRN Consult order Rivaroxaban 20 mg 07/04/21 17:00 07/09/21 16:28 Rivaroxaban 20 Mg Tablet PO 20 mg DAILY@1700 KANCHAN Administration Sodium Chloride 3 ml 07/03/21 16:00 07/10/21 09:33 0.9 % Sodium Chloride Flush 3 Ml Syringe IVFLUSH 3 ml QSHIFT KANCHAN Administration Spironolactone 25 mg 07/04/21 09:00 07/10/21 09:42 Spironolactone 25 Mg Tablet PO 25 mg DAILY KANCHAN Administration Protocol Trazodone HCl 50 mg 07/03/21 21:00 07/09/21 21:21 Trazodone Hcl 50 Mg Tablet PO 50 mg BEDTIME KANCHAN Administration Zolpidem Tartrate 10 mg 07/03/21 21:00 07/09/21 21:21 Zolpidem Tartrate 5 Mg Tablet PO 10 mg BEDTIME KANCHAN Administration Time Spent With Patient Time: Total time spent is greater than 50% in coordination of care (as documented) at patient's floor/unit and/or counseling patient: Time with patient: 15 - 24 minutes Quality Stroke Does the patient have a stroke diagnosis?: No VTE Prior VTE?: No VTE Risk Level:: Surgical - moderate VTE Device Contraindication: N/A - Device Ordered VTE Drug Contraindication: N/A - Med Ordered
--- NOTE | 2021-07-10 14:15 | P.CDIC_ITS ---
CDI Concurrent Query Service Date: 07/10/21 Documentation Clarification: Please clarify if you are treating a proba ble/suspected/likely or confirmed: -Type (etiology) of ulcer/wound: -Diabetic ulcer -Venous stasis ulcer -Arterial (ischemic) ulcer -Pressure (decubitus) ulcer -Traumatic wound -Other -Unable to determine -For a non-pressure ulcer, please indicate the depth/severity: -Limited to the breakdown of skin -With fat layer exposed -With necrosis of muscle -With necrosis of bone -Other -Unable to determine -If a pressure ulcer, please also include the stage* of the ulcer: -Stage 1 - Skin intact, non-blanchable redness -Stage 2 - Partial thickness loss of dermis, includes intact or open blister -Stage 3 - Full thickness tissue not including bone, tendon, or muscle -Stage 4 - Full thickness tissue loss, including exposed bones, tendon, or muscle -Unstageable - Full thickness tissue loss in which the base of the ulcer is covered by slough (yellow, cehung, prado, green or? brown) and/or eschar (cheung, brown, or black) in the wound bed. -Suspected deep tissue injury - Purple or maroon localized area of discolored intact skin or blood-filled blister due to? damage of underlying soft tissues from pressure and/or shear. The area may be preceded by tissue that is painful, firm, mushy,? boggy, warmer, or cooler as compare to adjacent tissue. -Unable to determine *Source: National Pressure Ulcer Advisory Panel (NPUAP) Use of terms such as suspected, likely, concern for, or probable (associated with a specific diagnosis that is being evaluated, monitored, or treated as if it exists) are acceptable and can be coded in the inpatient setting, when documented at the time of discharge. Provider Response: Other Other Diagnosis: Traumatic wound to the left BKA stump which occurred at home prior to arrival to emergency department. Wound is consistent with an open blister (stage II). PLEASE DO NOT DELETE/MODIFY EXISTING CONTENT Additional information is needed in order to code to the highest accuracy and appropriate Severity of Illness (SOI). Please clarify the information noted below in your progress notes and discharge summary. Risk Factors/Clinical Indicators/Treatments Per MD progress note 07/08/21: ulceration left BKA stump CDS: Afia Zarate RN Contact Number: [phone] Please Review the information above and exercise your independent professional judgment in responding to the query. If you concur, pleas document in the PROGRESS NOTES and DISCHARGE SUMMARY. If you do not agree with the query, please document in the query above. THIS QUERY IS PART OF THE PERMANENT MEDICAL RECORD
[2021-07-10 16:35] LABS: Glucose, Whole Blood 129 mg/dL (60-115)
[2021-07-10] MEDS: Rivaroxaban 20 MG TABLET PO (17:14)
[2021-07-10 20:37] LABS: Glucose, Whole Blood 156 mg/dL (60-115)
[2021-07-10] MEDS: traZODone HCL 50 MG TABLET PO (21:08)
[2021-07-10] MEDS: Insulin Lispro 100 UNIT/ML 3 ML VIAL SUBCUT (21:09)
[2021-07-10] MEDS: Zolpidem Tartrate 5 MG TABLET 10 MG PO (21:10)
[2021-07-11] VITALS (7 sets, daily range): BP systolic 116–139; BP diastolic 58–74; PULSE 75–85; RESP 15–20; TEMP 36.1–37.2; O2SAT 92–95
[2021-07-11] MEDS: HYDROmorphone HCl 0.5 MG/0.5 ML SYRINGE IVPUSH ×6 (03:09→23:15)
[2021-07-11] MEDS: 0.9 % Sodium Chloride Flush 3 ML SYRINGE IVFLUSH ×4 (03:10→23:11)
[2021-07-11] MEDS: Piperacillin Sodium/Tazobactam 3.375 GM in 0.9 % Sodium Chloride 50 ML IV ×4 (03:11→20:18)
[2021-07-11] MEDS: Omeprazole 20 MG CAPSULE.DR PO ×2 (05:54→15:44)
[2021-07-11 06:16] LABS: MANUAL DIFF FLAG NO
[2021-07-11 06:38] LABS: Basophils Percent Auto 0.3 % (0-2); Eosinophils Absolute Auto 0.3 X10*3/uL (0.0-0.4); Eosinophils Percent Auto 2.8 % (0-4); Hematocrit 27.1 % (42-52); Hemoglobin 8.6 g/dl (14.0-18.0); Imm Gran Abs Auto 0.06 X10*3/uL (0.00-0.03); Imm Gran Pct Auto 0.5 % (0.0-0.4); Lymphocytes Absolute Auto 0.9 X10*3/uL (1.2-4.9); Lymphocytes Percent Auto 7.8 % (20-40); Mean Corpuscular HGB Conc 31.7 g/dl (31.0-36.0); Mean Corpuscular Hemoglobin 28.8 pg (27.0-33.0); Mean Corpuscular Volume 90.6 fL (80-98); Mean Platelet Volume 10.9 fL (9.4-12.4); Monocytes Absolute Auto 0.8 X10*3/uL (0.1-1.2); Monocytes Percent Auto 7.3 % (2-11); Neutrophils Absolute Auto 9.3 X10*3/uL (2.0-8.3); Neutrophils Percent Auto 81.3 % (45-73); Platelet Count 233 X10*3/uL (160-400); Red Blood Count 2.99 X10*6/uL (4.60-5.80); Red Cell Distribution Width 16.5 % (11.0-16.0); White Blood Count 11.4 X10*3/uL (4.8-10.8)
[2021-07-11 06:57] LABS: Anion Gap 11 (12-20); Blood Urea Nitrogen 11 mg/dL (9-16); Calcium 8.2 mg/dL (8.4-10.2); Carbon Dioxide 25 mmol/L (22-29); Chloride 107 mmol/L (96-108); Creatinine Clr Calc Pharmacy 147.6; Estimated Glomerular Filt Rate > 60; Glucose Random 157 mg/dL (60-115); Potassium 3.9 mmol/L (3.3-5.1); Sodium 139 mmol/L (135-145)
[2021-07-11 07:43] LABS: Glucose, Whole Blood 140 mg/dL (60-115)
[2021-07-11] MEDS: gemfibroziL 600 MG TABLET PO ×2 (09:04→15:45)
[2021-07-11] MEDS: carvediloL 6.25 MG TABLET PO ×2 (09:04→20:08)
[2021-07-11] MEDS: Amiodarone HCL 200 MG TABLET PO (09:04)
[2021-07-11] MEDS: Spironolactone 25 MG TABLET PO (09:04)
[2021-07-11] MEDS: Loperamide HCl Oral Liquid 2 MG/15 ML LIQUID PO (10:35)
[2021-07-11 11:43] LABS: Glucose, Whole Blood 188 mg/dL (60-115)
[2021-07-11] MEDS: Insulin Lispro 100 UNIT/ML 3 ML VIAL SUBCUT (12:36)
--- NOTE | 2021-07-11 14:20 | P.PNGS_ITS ---
Subjective Subjective Date of Service: 07/11/21 Interval history: Patient with no new complaints, appetite poor but improving Physical Exam Vital Signs: Vital Signs: Last Vital Signs Temp 97.4 F 07/11/21 11:19 Pulse 82 07/11/21 11:19 Resp 16 07/11/21 11:19 BP 139/66 07/11/21 11:19 Pulse Ox 93 07/11/21 11:19 Body Mass Index 24.0 Const: General: cooperative and no acute distress Orientation/consciousness: patient oriented x3 Limitations: no limitations GI: Other: Draining from the right flank wound, wound packed with dura fiber Ag followed by fluffed gauze and ABD pad. Wounds appear to be closing although drainage continues. Inspection: Yes normal to inspection and Yes incision Skin: General skin exam: no rashes or lesions noted Neuro: General: patient oriented x3 Procedures Date of Service Date of Service: 07/11/21 Progress Note: A&P Assessment and plan (1) Abscess, intra-abdominal, postoperative: Status: Acute Assessment and Plan: Patient continues to make improvement and his right flank wound is closing gradually. He still has some tenderness to palpation but this is improving with the antibiotics. Continue local wound care and IV antibiotics. Anticipate discharge early next week. Fall Risk Details Current Medications: Current Medications Generic Name Dose Route Start Last Admin Trade Name Freq PRN Reason Stop Dose Admin Acetaminophen 650 mg 07/03/21 14:18 Acetaminophen 325 Mg Tablet PO Q6H PRN Pain, Mild (Pain Scale 1-3) Amiodarone HCl 200 mg 07/04/21 09:00 07/11/21 09:04 Amiodarone Hcl 200 Mg Tablet PO 200 mg DAILY KANCHAN Administration Carvedilol 6.25 mg 07/03/21 21:00 07/11/21 09:04 Carvedilol 6.25 Mg Tablet PO 6.25 mg BID KANCHAN Administration Protocol Dextrose 25 gm 07/03/21 16:18 Dextrose 50 % 25 Gm/50 Ml Vial IVPUSH Q15M PRN per Hypoglycemia Standing Ord. Protocol Gemfibrozil 600 mg 07/04/21 07:30 07/11/21 09:04 Gemfibrozil 600 Mg Tablet PO 600 mg BIDAC KANCHAN Administration Glucose 15 gm 07/03/21 16:18 Glucose Gel 15 Gm Gel..Gram. PO Q15M PRN per Hypoglycemia Standing Ord. Protocol Hydromorphone HCl 0.5 mg 07/03/21 14:18 07/11/21 10:35 Hydromorphone Hcl 0.5 Mg/0.5 Ml Syringe IVPUSH 0.5 mg Q3H PRN Administration Pain, Severe (Pain Scale 7-10) Protocol Piperacillin Sod/Tazobactam 50 mls @ 100 mls/hr 07/03/21 16:00 07/11/21 09:35 Sod 3.375 gm/ Sodium Chloride IV Infused Q6H KANCHAN Infusion Promethazine HCl 12.5 mg/ 50.5 mls @ 202 mls/hr 07/05/21 10:28 07/10/21 22:14 Sodium Chloride IV Infused Q4H PRN Infusion nausea Insulin Human Lispro 0 unit 07/05/21 16:30 07/11/21 12:36 Insulin Lispro 100 Unit/Ml 3 Ml Vial SUBCUT 2 unit QIDACHS KANCHAN Administration Protocol Loperamide HCl 2 mg 07/08/21 07:29 07/11/21 10:35 Loperamide Hcl Oral Liquid 2 Mg/15 Ml Liquid PO 2 mg Q6H PRN Administration diarrhea Omeprazole 20 mg 07/03/21 16:30 07/11/21 05:54 Omeprazole 20 Mg Capsule.Dr PO 20 mg BID@0630,1630 [facility] Administration Ondansetron HCl 4 mg 07/03/21 14:18 07/05/21 03:37 Ondansetron Hcl 4 Mg/2 Ml Vial IVPUSH 4 mg Q6H PRN Administration Nausea and Vomiting Oxycodone HCl 5 mg 07/03/21 16:20 Oxycodone Hcl Immed Release 5 Mg Tablet PO Q4H PRN Pain, Moderate (Pain Scale 4-6 Pharmacy Consult 1 each 07/03/21 14:18 Consult Rx Perform Med Rec MISCELLANE ONCE PRN Consult order Rivaroxaban 20 mg 07/04/21 17:00 07/10/21 17:14 Rivaroxaban 20 Mg Tablet PO 20 mg DAILY@1700 KANCHAN Administration Sodium Chloride 3 ml 07/03/21 16:00 07/11/21 09:04 0.9 % Sodium Chloride Flush 3 Ml Syringe IVFLUSH 3 ml QSHIFT [facility] Administration Spironolactone 25 mg 07/04/21 09:00 07/11/21 09:04 Spironolactone 25 Mg Tablet PO 25 mg DAILY KANCHAN Administration Protocol Trazodone HCl 50 mg 07/03/21 21:00 07/10/21 21:08 Trazodone Hcl 50 Mg Tablet PO 50 mg BEDTIME KANCHAN Administration Zolpidem Tartrate 10 mg 07/03/21 21:00 07/10/21 21:10 Zolpidem Tartrate 5 Mg Tablet PO 10 mg BEDTIME KANCHAN Administration Time Spent With Patient Time: Total time spent is greater than 50% in coordination of care (as documented) at patient's floor/unit and/or counseling patient: Time with patient: 15 - 24 minutes Quality Stroke Does the patient have a stroke diagnosis?: No VTE Prior VTE?: No VTE Risk Level:: Surgical - moderate VTE Device Contraindication: N/A - Device Ordered VTE Drug Contraindication: N/A - Med Ordered
--- NOTE | 2021-07-11 14:35 | MHC.CLN ---
F/U CONTINUES WITH REGULAR DIET. APPETITE IMPROVING. TAKES/TOLERATES MUSCLE MILK THAT HIS FAMILY PROVIDES. WOUNDS DESCRIBED SMALL STAGE II TO COCCYX; SCABS TO LOWER LEG. CONTINUE TO FOLLOW.
[2021-07-11 16:21] LABS: Glucose, Whole Blood 131 mg/dL (60-115)
[2021-07-11] MEDS: Rivaroxaban 20 MG TABLET PO (16:46)
[2021-07-11] MEDS: Zolpidem Tartrate 5 MG TABLET 10 MG PO (20:08)
[2021-07-11] MEDS: traZODone HCL 50 MG TABLET PO (20:08)
[2021-07-11 20:13] LABS: Glucose, Whole Blood 140 mg/dL (60-115)
[2021-07-12] MEDS: HYDROmorphone HCl 0.5 MG/0.5 ML SYRINGE IVPUSH ×6 (02:19→23:33)
[2021-07-12] MEDS: Piperacillin Sodium/Tazobactam 3.375 GM in 0.9 % Sodium Chloride 50 ML IV ×4 (05:03→20:06)
[2021-07-12] MEDS: Omeprazole 20 MG CAPSULE.DR PO ×2 (05:05→16:56)
[2021-07-12 07:03] VITALS: BP 139/66; PULSE 80; RESP 20; TEMP 35.5; O2SAT 96
[2021-07-12 07:25] LABS: Glucose, Whole Blood 127 mg/dL (60-115)
[2021-07-12] MEDS: gemfibroziL 600 MG TABLET PO ×2 (07:58→16:56)
[2021-07-12] MEDS: 0.9 % Sodium Chloride Flush 3 ML SYRINGE IVFLUSH ×3 (07:59→20:08)
[2021-07-12] MEDS: carvediloL 6.25 MG TABLET PO ×2 (07:59→20:03)
[2021-07-12] MEDS: Spironolactone 25 MG TABLET PO (07:59)
[2021-07-12] MEDS: Amiodarone HCL 200 MG TABLET PO (07:59)
--- NOTE | 2021-07-12 09:53 | PM.PNGS ---
Subjective Subjective Date of Service: 07/12/21 Interval history: denies complaints says he feels well no GI complaints good PO intake Physical Exam Vital Signs: Vital Signs: Last Vital Signs Temp 96 F L 07/12/21 07:03 Pulse 80 07/12/21 07:03 Resp 20 07/12/21 07:03 BP 139/66 07/12/21 07:03 Pulse Ox 96 07/12/21 07:03 Body Mass Index 24.0 Chemistry 07/10/21 07/11/21 05:58 05:46 Sodium 138 139 Potassium 3.9 D 3.9 Carbon Dioxide 26 25 BUN 11 11 Creatinine 0.68 0.62 Calcium 8.1 L 8.2 L Hematology 07/10/21 07/11/21 05:58 05:46 WBC 12.7 H 11.4 H Hgb 8.5 L 8.6 L Plt Count 240 233 Const: Other: laying in bed General: comfortable and no acute distress Resp: Effort & Inspection: normal respiratory effort Cardio: Rate: regular rate GI: Other: open wound right flank, clean, with good granulation Palpation (GI): Soft to palpation, not firm and nontender Extrem: Other: ulcer on BKA right, clean Procedures Date of Service Date of Service: 07/12/21 Progress Note: A&P Assessment and plan (1) Abdominal wall abscess: Status: Acute Assessment and Plan: open wound is clean, with good granulation no cellulitis or redness changed dressings - I applied fresh silver alginate continue wound care encouraged to get out of bed wound care to ulcer on stump BKA, right Fall Risk Details Current Medications: Current Medications Generic Name Dose Route Start Last Admin Trade Name Gualberto PRN Reason Stop Dose Admin Acetaminophen 650 mg 07/03/21 14:18 Acetaminophen 325 Mg Tablet PO Q6H PRN Pain, Mild (Pain Scale 1-3) Amiodarone HCl 200 mg 07/04/21 09:00 07/12/21 07:59 Amiodarone Hcl 200 Mg Tablet PO 200 mg DAILY KANCHAN Administration Carvedilol 6.25 mg 07/03/21 21:00 07/12/21 07:59 Carvedilol 6.25 Mg Tablet PO 6.25 mg BID KANCHAN Administration Protocol Dextrose 25 gm 07/03/21 16:18 Dextrose 50 % 25 Gm/50 Ml Vial IVPUSH Q15M PRN per Hypoglycemia Standing Ord. Protocol Gemfibrozil 600 mg 07/04/21 07:30 07/12/21 07:58 Gemfibrozil 600 Mg Tablet PO 600 mg BIDAC KANCHAN Administration Glucose 15 gm 07/03/21 16:18 Glucose Gel 15 Gm Gel..Gram. PO Q15M PRN per Hypoglycemia Standing Ord. Protocol Hydromorphone HCl 0.5 mg 07/03/21 14:18 07/12/21 05:15 Hydromorphone Hcl 0.5 Mg/0.5 Ml Syringe IVPUSH 0.5 mg Q3H PRN Administration Pain, Severe (Pain Scale 7-10) Protocol Piperacillin Sod/Tazobactam 50 mls @ 100 mls/hr 07/03/21 16:00 07/12/21 05:42 Sod 3.375 gm/ Sodium Chloride IV Infused Q6H KANCHAN Infusion Promethazine HCl 12.5 mg/ 50.5 mls @ 202 mls/hr 07/05/21 10:28 07/12/21 08:41 Sodium Chloride IV Infused Q4H PRN Infusion nausea Insulin Human Lispro 0 unit 07/05/21 16:30 07/12/21 07:38 Insulin Lispro 100 Unit/Ml 3 M[facility] Protocol Loperamide HCl 2 mg 07/08/21 07:29 07/11/21 10:35 Loperamide Hcl Oral Liquid 2 Mg/15 Ml Liquid PO 2 mg Q6H PRN Administration diarrhea Omeprazole 20 mg 07/03/21 16:30 07/12/21 05:05 Omeprazole 20 Mg Capsule.Dr PO 20 mg BID@0630,1630 KANCHAN Administration Ondansetron HCl 4 mg 07/03/21 14:18 07/05/21 03:37 Ondansetron Hcl 4 Mg/2 Ml Vial IVPUSH 4 mg Q6H PRN Administration Nausea and Vomiting Oxycodone HCl 5 mg 07/03/21 16:20 Oxycodone Hcl Immed Release 5 Mg Tablet PO Q4H PRN Pain, Moderate (Pain Scale 4-6 Pharmacy Consult 1 each 07/03/21 14:18 Consult Rx Perform Med Rec MISCELLANE ONCE PRN Consult order Rivaroxaban 20 mg 07/04/21 17:00 07/11/21 16:46 Rivaroxaban 20 Mg Tablet PO 20 mg DAILY@1700 KANCHAN Administration Sodium Chloride 3 ml 07/03/21 16:00 07/12/21 07:59 0.9 % Sodium Chloride Flush 3 Ml Syringe IVFLUSH 3 ml QSHIFT KANCHAN Administration Spironolactone 25 mg 07/04/21 09:00 07/12/21 07:59 Spironolactone 25 Mg Tablet PO 25 mg DAILY KANCHAN Administration Protocol Trazodone HCl 50 mg 07/03/21 21:00 07/11/21 20:08 Trazodone Hcl 50 Mg Tablet PO 50 mg BEDTIME KANCHAN Administration Zolpidem Tartrate 10 mg 07/03/21 21:00 07/11/21 20:08 Zolpidem Tartrate 5 Mg Tablet PO 10 mg BEDTIME KANCHAN Administration Time Spent With Patient Time: Total time spent is greater than 50% in coordination of care (as documented) at patient's floor/unit and/or counseling patient: Time with patient: 15 - 24 minutes Quality Stroke Does the patient have a stroke diagnosis?: No VTE Prior VTE?: No VTE Risk Level:: Surgical - moderate VTE Device Contraindication: N/A - Device Ordered VTE Drug Contraindication: N/A - Med Ordered
[2021-07-12 11:02] VITALS: BP 152/76; PULSE 84; RESP 18; TEMP 37.2; O2SAT 96
[2021-07-12 11:23] LABS: Glucose, Whole Blood 111 mg/dL (60-115)
[2021-07-12 15:15] VITALS: BP 140/73; PULSE 83; RESP 17; TEMP 36.4; O2SAT 95
[2021-07-12 16:12] LABS: Glucose, Whole Blood 117 mg/dL (60-115)
[2021-07-12] MEDS: Rivaroxaban 20 MG TABLET PO (16:56)
[2021-07-12 19:24] VITALS: BP 123/65; PULSE 81; RESP 16; TEMP 36.6; O2SAT 93
[2021-07-12 19:56] LABS: Glucose, Whole Blood 163 mg/dL (60-115)
[2021-07-12] MEDS: Zolpidem Tartrate 5 MG TABLET 10 MG PO (20:02)
[2021-07-12] MEDS: traZODone HCL 50 MG TABLET PO (20:02)
[2021-07-12] MEDS: Insulin Lispro 100 UNIT/ML 3 ML VIAL SUBCUT (20:03)
[2021-07-12 23:29] VITALS: BP 115/64; PULSE 73; RESP 14; TEMP 36.2; O2SAT 97
[2021-07-13] VITALS (7 sets, daily range): BP systolic 116–139; BP diastolic 64–74; PULSE 68–110; RESP 17–20; TEMP 36.1–36.6; O2SAT 94–96
[2021-07-13] MEDS: Piperacillin Sodium/Tazobactam 3.375 GM in 0.9 % Sodium Chloride 50 ML IV ×4 (03:46→21:45)
[2021-07-13] MEDS: HYDROmorphone HCl 0.5 MG/0.5 ML SYRINGE IVPUSH ×5 (03:46→22:41)
[2021-07-13] MEDS: Omeprazole 20 MG CAPSULE.DR PO ×2 (06:17→16:36)
[2021-07-13 07:30] LABS: Glucose, Whole Blood 95 mg/dL (60-115)
[2021-07-13] MEDS: carvediloL 6.25 MG TABLET PO ×2 (07:59→21:46)
[2021-07-13] MEDS: Amiodarone HCL 200 MG TABLET PO (07:59)
[2021-07-13] MEDS: Spironolactone 25 MG TABLET PO (08:00)
[2021-07-13] MEDS: gemfibroziL 600 MG TABLET PO ×2 (08:00→16:36)
[2021-07-13] MEDS: 0.9 % Sodium Chloride Flush 3 ML SYRINGE IVFLUSH ×3 (10:53→23:38)
[2021-07-13 11:21] LABS: Glucose, Whole Blood 128 mg/dL (60-115)
[2021-07-13] MEDS: Rivaroxaban 20 MG TABLET PO (16:36)
[2021-07-13 16:38] LABS: Glucose, Whole Blood 101 mg/dL (60-115)
[2021-07-13 20:58] LABS: Glucose, Whole Blood 101 mg/dL (60-115)
[2021-07-13] MEDS: traZODone HCL 50 MG TABLET PO (21:46)
[2021-07-14] VITALS (8 sets, daily range): BP systolic 99–127; BP diastolic 55–72; PULSE 77–105; RESP 16–19; TEMP 35.9–36.9; O2SAT 92–98
[2021-07-14] MEDS: Piperacillin Sodium/Tazobactam 3.375 GM in 0.9 % Sodium Chloride 50 ML IV ×4 (02:36→22:57)
[2021-07-14] MEDS: HYDROmorphone HCl 0.5 MG/0.5 ML SYRINGE IVPUSH ×4 (02:36→20:15)
[2021-07-14] MEDS: Omeprazole 20 MG CAPSULE.DR PO ×2 (05:17→16:53)
[2021-07-14 07:26] LABS: Glucose, Whole Blood 100 mg/dL (60-115)
[2021-07-14] MEDS: Nystatin Cream 15 GM TUBE 1 APPL TOPICAL ×2 (10:25→20:16)
[2021-07-14] MEDS: Spironolactone 25 MG TABLET PO (10:25)
[2021-07-14] MEDS: gemfibroziL 600 MG TABLET PO ×2 (10:25→16:10)
[2021-07-14] MEDS: carvediloL 6.25 MG TABLET PO ×2 (10:25→20:14)
[2021-07-14] MEDS: Amiodarone HCL 200 MG TABLET PO (10:25)
[2021-07-14] MEDS: 0.9 % Sodium Chloride Flush 3 ML SYRINGE IVFLUSH ×3 (10:25→22:57)
--- NOTE | 2021-07-14 10:50 | PC.NURSE ---
Skin/Wound Assessment completed today. Patient has a Stage 2 pressure ulcer to lower back-Triad applied with foam dressing, Stage 2 to lower left leg amp site-triad applied with foam dressing, blanchable redness to mid back foam dressing applied for protection. Fungal infection to buttocks/groin area-nystatin cream applied. Left knee stage 1 pressure ulcer is healed. No other skin issues noted at this time.
[2021-07-14 11:51] LABS: Glucose, Whole Blood 135 mg/dL (60-115)
[2021-07-14 12:29] LABS: CDiff Gene PCR NEGATIVE (Negative)
--- NOTE | 2021-07-14 12:34 | MHC.CM.PN ---
OF THIS NOTE, NO PLANS FOR DISCHARGE HOME WITH [facility]. AGENCY UPDATED IN [facility].
--- NOTE | 2021-07-14 14:16 | MHC.CLN ---
F/U EATING 25-100%, WITH APPETITE IMPROVING. DIET=REGULAR. TAKES MUSCLE MILK PROVIDED BY FAMILY. WOUNDS: STAGE II TO LOWER BACK, STAGE II TO RIGHT LEG., LEFT KNEE HEALED. CONTINUE TO FOLLOW.
--- NOTE | 2021-07-14 14:35 | P.PNGS_ITS ---
Subjective Subjective Date of Service: 07/14/21 Interval history: She reports diarrhea yesterday and today, C diff sent, was negative. Denies significant abdominal pain. Physical Exam Vital Signs: Vital Signs: Last Vital Signs Temp 98.3 F 07/14/21 11:21 Pulse 82 07/14/21 11:21 Resp 18 07/14/21 11:21 BP 127/66 07/14/21 11:21 Pulse Ox 97 07/14/21 11:21 Body Mass Index 24.0 Resp: Effort & Inspection: normal respiratory effort GI: Other: Soft and nondistended. A slight area of erythema noted the right lower quadrant adjacent to the right lower quadrant incision. This seem slightly firmer than on previous examinations. Right flank is clean and closing. Wounds were redressed with silver alginate and dry sterile dressings. No erythema noted in the flank. Abdomen image: 1. Incision right lower quadrant with lateral erythema, slight Skin: General skin exam: no rashes or lesions noted and erythema (As noted above) Extrem: General: Yes no clubbing, cyanosis or edema Procedures Date of Service Date of Service: 07/14/21 Progress Note: A&P Assessment and plan (1) Abdominal wall abscess: Status: Acute Assessment and Plan: Patient with a new area of erythema which seems to be developing in the right lower quadrant. Does not feel fluctuant to palpation at this time. I will reassess in the a.m. and check CBC. If this seems to be worsening a CT of the abdomen and pelvis may be required. Continue antibiotics. Fall Risk Details Current Medications: Current Medications Generic Name Dose Route Start Last Admin Trade Name Freq PRN Reason Stop Dose Admin Acetaminophen 650 mg 07/03/21 14:18 Acetaminophen 325 Mg Tablet PO Q6H PRN Pain, Mild (Pain Scale 1-3) Amiodarone HCl 200 mg 07/04/21 09:00 07/14/21 10:25 Amiodarone Hcl 200 Mg Tablet PO 200 mg DAILY KANCHAN Administration Carvedilol 6.25 mg 07/03/21 21:00 07/14/21 10:25 Carvedilol 6.25 Mg Tablet PO 6.25 mg BID KANCHAN Administration Protocol Dextrose 25 gm 07/03/21 16:18 Dextrose 50 % 25 Gm/50 Ml Vial IVPUSH Q15M PRN per Hypoglycemia Standing Ord. Protocol Gemfibrozil 600 mg 07/04/21 07:30 07/14/21 10:25 Gemfibrozil 600 Mg Tablet PO 600 mg BIDAC KANCHAN Administration Glucose 15 gm 07/03/21 16:18 Glucose Gel 15 Gm Gel..Gram. PO Q15M PRN per Hypoglycemia Standing Ord. Protocol Hydromorphone HCl 0.5 mg 07/12/21 17:02 07/14/21 10:45 Hydromorphone Hcl 0.5 Mg/0.5 Ml Syringe IVPUSH 0.5 mg Q3H PRN Administration Pain, Severe (Pain Scale 7-10) Protocol Piperacillin Sod/Tazobactam 50 mls @ 100 mls/hr 07/03/21 16:00 07/14/21 11:02 Sod 3.375 gm/ Sodium Chloride IV Infused Q6H KANCHAN Infusion Promethazine HCl 12.5 mg/ 50.5 mls @ 202 mls/hr 07/05/21 10:28 07/14/21 05:33 Sodium Chloride IV Infused Q4H PRN Infusion nausea Insulin Human Lispro 0 unit 07/05/21 16:30 07/14/21 11:59 Insulin Lispro 100 Unit/Ml 3 Ml Vial SUBCUT Not Given QIDACHS [facility] Protocol Loperamide HCl 2 mg 07/08/21 07:29 07/11/21 10:35 Loperamide Hcl Oral Liquid 2 Mg/15 Ml Liquid PO 2 mg Q6H PRN Administration diarrhea Nystatin 1 appl 07/14/21 09:00 07/14/21 10:25 Nystatin Cream 15 Gm Tube TOPICAL 1 appl BID KANCHAN Administration Protocol Omeprazole 20 mg 07/03/21 16:30 07/14/21 05:17 Omeprazole 20 Mg Capsule.Dr PO 20 mg BID@0630,1630 KANCHAN Administration Ondansetron HCl 4 mg 07/03/21 14:18 07/05/21 03:37 Ondansetron Hcl 4 Mg/2 Ml Vial IVPUSH 4 mg Q6H PRN Administration Nausea and Vomiting Pharmacy Consult 1 each 07/03/21 14:18 Consult Rx Perform Med Rec MISCELLANE ONCE PRN Consult order Rivaroxaban 20 mg 07/04/21 17:00 07/13/21 16:36 Rivaroxaban 20 Mg Tablet PO 20 mg DAILY@1700 KANCHAN Administration Sodium Chloride 3 ml 07/03/21 16:00 07/14/21 10:25 0.9 % Sodium Chloride Flush 3 Ml Syringe IVFLUSH 3 ml QSHIFT KANCHAN Administration Spironolactone 25 mg 07/04/21 09:00 07/14/21 10:25 Spironolactone 25 Mg Tablet PO 25 mg DAILY KANCHAN Administration Protocol Trazodone HCl 50 mg 07/03/21 21:00 07/13/21 21:46 Trazodone Hcl 50 Mg Tablet PO 50 mg BEDTIME KANCHAN Administration Time Spent With Patient Time: Total time spent is greater than 50% in coordination of care (as documented) at patient's floor/unit and/or counseling patient: Time with patient: 15 - 24 minutes Quality Stroke Does the patient have a stroke diagnosis?: No VTE Prior VTE?: No VTE Risk Level:: Surgical - moderate VTE Device Contraindication: N/A - Device Ordered VTE Drug Contraindication: N/A - Med Ordered
[2021-07-14 16:17] LABS: Glucose, Whole Blood 136 mg/dL (60-115)
[2021-07-14] MEDS: Rivaroxaban 20 MG TABLET PO (16:53)
[2021-07-14 20:02] LABS: Glucose, Whole Blood 154 mg/dL (60-115)
[2021-07-14] MEDS: traZODone HCL 50 MG TABLET PO (20:14)
[2021-07-14] MEDS: Insulin Lispro 100 UNIT/ML 3 ML VIAL SUBCUT (20:15)
[2021-07-15] VITALS (7 sets, daily range): BP systolic 108–123; BP diastolic 57–64; PULSE 73–94; RESP 16–19; TEMP 36.1–36.7; O2SAT 91–98
[2021-07-15] MEDS: HYDROmorphone HCl 0.5 MG/0.5 ML SYRINGE IVPUSH ×7 (00:35→23:15)
[2021-07-15] MEDS: Piperacillin Sodium/Tazobactam 3.375 GM in 0.9 % Sodium Chloride 50 ML IV ×4 (03:17→23:09)
[2021-07-15] MEDS: Omeprazole 20 MG CAPSULE.DR PO ×2 (05:48→16:59)
[2021-07-15 07:43] LABS: Glucose, Whole Blood 86 mg/dL (60-115)
--- NOTE | 2021-07-15 07:48 | PM.PNGS ---
Subjective Subjective Date of Service: 07/15/21 Interval history: Patient reporting pain in the right lower quadrant. Appetite is about the same, not much improvement. Denies fever or chills Physical Exam Vital Signs: Vital Signs: Last Vital Signs Temp 98.0 F 07/15/21 07:10 Pulse 75 07/15/21 07:10 Resp 18 07/15/21 07:10 BP 108/57 L 07/15/21 07:10 Pulse Ox 98 07/15/21 07:10 Body Mass Index 24.0 Const: General: no acute distress, alert and awake Orientation/consciousness: patient oriented x3 Resp: Effort & Inspection: normal respiratory effort, no cough and no respiratory distress GI: Other: Abdomen soft with an area of redness in the right lower quadrant at the site of the previous right lower quadrant incision. This appears firm, suggestive of a phlegmon or abscess. No bleeding or discharge is noted from the incision. Skin: Other: As noted in abdomen above Neuro: General: patient oriented x3 Extrem: General: No edema Procedures Date of Service Date of Service: 07/15/21 Progress Note: A&P Assessment and plan (1) Abdominal wall abscess: Status: Acute Assessment and Plan: Patient now with an area of redness in the right lower quadrant at the site of his previous abdominal incision. This was previously completely healed with no evidence of redness. Findings are suggestive of a recurrent abscess in this location. A CT of the abdomen and pelvis has been ordered. Patient may require incision and drainage if abscess identified. Fall Risk Details Current Medications: Current Medications Generic Name Dose Route Start Last Admin Trade Name Freq PRN Reason Stop Dose Admin Acetaminophen 650 mg 07/03/21 14:18 Acetaminophen 325 Mg Tablet PO Q6H PRN Pain, Mild (Pain Scale 1-3) Amiodarone HCl 200 mg 07/04/21 09:00 07/14/21 10:25 Amiodarone Hcl 200 Mg Tablet PO 200 mg DAILY KANCHAN Administration Carvedilol 6.25 mg 07/03/21 21:00 07/14/21 20:14 Carvedilol 6.25 Mg Tablet PO 6.25 mg BID KACNHAN Administration Protocol Dextrose 25 gm 07/03/21 16:18 Dextrose 50 % 25 Gm/50 Ml Vial IVPUSH Q15M PRN per Hypoglycemia Standing Ord. Protocol Gemfibrozil 600 mg 07/04/21 07:30 07/14/21 16:10 Gemfibrozil 600 Mg Tablet PO 600 mg BIDAC KANCHAN Administration Glucose 15 gm 07/03/21 16:18 Glucose Gel 15 Gm Gel..Gram. PO Q15M PRN per Hypoglycemia Standing Ord. Protocol Hydromorphone HCl 0.5 mg 07/12/21 17:02 07/15/21 04:58 Hydromorphone Hcl 0.5 Mg/0.5 Ml Syringe IVPUSH 0.5 mg Q3H PRN Administration Pain, Severe (Pain Scale 7-10) Protocol Piperacillin Sod/Tazobactam 50 mls @ 100 mls/hr 07/03/21 16:00 07/15/21 04:56 Sod 3.375 gm/ Sodium Chloride IV Infused Q6H KANCHAN Infusion Promethazine HCl 12.5 mg/ 50.5 mls @ 202 mls/hr 07/05/21 10:28 07/14/21 18:30 Sodium Chloride IV Infused Q4H PRN Infusion nausea Insulin Human Lispro 0 unit 07/05/21 16:30 07/14/21 20:15 Insulin Lispro 100 Unit/Ml 3 Ml Vial SUBCUT 2 unit QIDACHS KANCHAN Administration Protocol Loperamide HCl 2 mg 07/08/21 07:29 07/11/21 10:35 Loperamide Hcl Oral Liquid 2 Mg/15 Ml Liquid PO 2 mg Q6H PRN Administration diarrhea Nystatin 1 appl 07/14/21 09:00 07/14/21 20:16 Nystatin Cream 15 Gm Tube TOPICAL 1 appl BID KANCHAN Administration Protocol Omeprazole 20 mg 07/03/21 16:30 07/15/21 05:48 Omeprazole 20 Mg Capsule.Dr PO 20 mg BID@0630,1630 KANCHAN Administration Ondansetron HCl 4 mg 07/03/21 14:18 07/05/21 03:37 Ondansetron Hcl 4 Mg/2 Ml Vial IVPUSH 4 mg Q6H PRN Administration Nausea and Vomiting Pharmacy Consult 1 each 07/03/21 14:18 Consult Rx Perform Med Rec MISCELLANE ONCE PRN Consult order Rivaroxaban 20 mg 07/04/21 17:00 07/14/21 16:53 Rivaroxaban 20 Mg Tablet PO 20 mg DAILY@1700 KANCHAN Administration Sodium Chloride 3 ml 07/03/21 16:00 07/14/21 22:57 0.9 % Sodium Chloride Flush 3 Ml Syringe IVFLUSH 3 ml QSHIFT KANCHAN Administration Spironolactone 25 mg 07/04/21 09:00 07/14/21 10:25 Spironolactone 25 Mg Tablet PO 25 mg DAILY KANCHAN Administration Protocol Trazodone HCl 50 mg 07/03/21 21:00 07/14/21 20:14 Trazodone Hcl 50 Mg Tablet PO 50 mg BEDTIME KANCHAN Administration Time Spent With Patient Time: Total time spent is greater than 50% in coordination of care (as documented) at patient's floor/unit and/or counseling patient: Time with patient: 15 - 24 minutes Quality Stroke Does the patient have a stroke diagnosis?: No VTE Prior VTE?: No VTE Risk Level:: Surgical - moderate VTE Device Contraindication: N/A - Device Ordered VTE Drug Contraindication: N/A - Med Ordered
[2021-07-15] MEDS: carvediloL 6.25 MG TABLET PO ×2 (09:26→20:20)
[2021-07-15] MEDS: gemfibroziL 600 MG TABLET PO ×2 (09:26→16:58)
[2021-07-15] MEDS: Amiodarone HCL 200 MG TABLET PO (09:26)
[2021-07-15] MEDS: 0.9 % Sodium Chloride Flush 3 ML SYRINGE IVFLUSH ×3 (09:26→23:10)
[2021-07-15] MEDS: Spironolactone 25 MG TABLET PO (09:26)
[2021-07-15] MEDS: Nystatin Cream 15 GM TUBE 1 APPL TOPICAL ×2 (09:29→20:23)
[2021-07-15 11:29] LABS: Glucose, Whole Blood 78 mg/dL (60-115)
[2021-07-15] MEDS: iohexoL 350 MG/ML 100 ML INFUS..BTL IV (11:58)
--- NOTE | 2021-07-15 12:38 | MHC.CLN ---
F/U PATIENT REPORTS THAT APPETITE IS IMPROVING. BROTHER BRINGS MUSCLE MILK AND OTHER FOODS THAT PATIENT EATS/DRINKS. CONTINUE TO FOLLOW.
[2021-07-15 16:35] LABS: Glucose, Whole Blood 121 mg/dL (60-115)
[2021-07-15] MEDS: Rivaroxaban 20 MG TABLET PO (16:58)
--- NOTE | 2021-07-15 17:14 | P.OP_ITS ---
Operative Note Operative Note Date of Service: 07/15/21 Narrative: Preoperative diagnosis: Abscess right lower quadrant abdomen Postoperative diagnosis: Abscess right lower quadrant abdomen Procedure: Incision and drainage abdominal abscess right lower quadrant Surgeon: Navdeep Lombardo MD Per Diem Registered Nurse: None Anesthesia: Local, lidocaine 1% Indications for procedure: 61-year-old male patient with a previous history of perforated appendicitis now with abdominal wall abscess previously underwent an abdominal washout but now with a new area of redness in the right lower quadrant. CT of the abdomen and pelvis revealed an abscess in the right lower quadrant. Patient presents now for incision and drainage. Operative findings: Large abscess in the right lower quadrant with bloody purulent fluid. Specimen: Wound culture Estimated blood loss: 0 Complications: None Procedure details: Procedure was performed at the bedside. A surgical time-out was called. Informed consent was assured and the site of surgery confirmed by the patient in the right lower quadrant. The patient's right lower quadrant was prepped with Betadine and draped in sterile fashion. Local anesthesia consisting of 1% lidocaine was infiltrated in the right lower quadrant over the area of fluctuance. An 11 blade was then used to incise the skin. A 2 cm incision was created over the abscess. This was carried down into the subcutaneous tissue. A large abscess was then encountered. Pressure was placed on the abdominal wall to drain the fluid. A culture of the fluid was obtained and sent for culture and Gram stain. Wounds were then packed with 1/2 inch iodoform gauze. Sterile dressings were then applied. The patient tolerated the procedure well.
[2021-07-15] MEDS: traZODone HCL 50 MG TABLET PO (20:20)
[2021-07-15 20:36] LABS: Glucose, Whole Blood 151 mg/dL (60-115)
[2021-07-16] VITALS (8 sets, daily range): BP systolic 118–136; BP diastolic 63–69; PULSE 75–95; RESP 15–20; TEMP 36–36.7; O2SAT 93–94
[2021-07-16] MEDS: HYDROmorphone HCl 0.5 MG/0.5 ML SYRINGE IVPUSH ×5 (04:22→21:17)
[2021-07-16] MEDS: Piperacillin Sodium/Tazobactam 3.375 GM in 0.9 % Sodium Chloride 50 ML IV ×4 (04:23→21:15)
[2021-07-16] MEDS: Omeprazole 20 MG CAPSULE.DR PO ×2 (06:19→16:05)
[2021-07-16 07:43] LABS: Glucose, Whole Blood 161 mg/dL (60-115)
[2021-07-16] MEDS: carvediloL 6.25 MG TABLET PO ×2 (08:00→21:15)
[2021-07-16] MEDS: 0.9 % Sodium Chloride Flush 3 ML SYRINGE IVFLUSH ×3 (08:00→23:26)
[2021-07-16] MEDS: Amiodarone HCL 200 MG TABLET PO (08:00)
[2021-07-16] MEDS: Spironolactone 25 MG TABLET PO (08:00)
[2021-07-16] MEDS: gemfibroziL 600 MG TABLET PO ×2 (08:00→16:05)
[2021-07-16] MEDS: Insulin Lispro 100 UNIT/ML 3 ML VIAL SUBCUT ×2 (08:01→16:41)
[2021-07-16] MEDS: Nystatin Cream 15 GM TUBE 1 APPL TOPICAL ×2 (09:59→21:19)
--- NOTE | 2021-07-16 10:55 | P.PNGS_ITS ---
Subjective Subjective Date of Service: 07/16/21 Interval history: Feels improved today with decreased right lower quadrant pain. Feels the dressing is soaked. Denies fever or chills. Still not much of an appetite however. Physical Exam 2 Vital Signs: Vital Signs: Last Vital Signs Temp 98.0 F 07/16/21 07:19 Pulse 76 07/16/21 07:19 Resp 18 07/16/21 07:19 BP 136/67 07/16/21 07:19 Pulse Ox 94 07/16/21 07:19 Body Mass Index 24.0 Const: Other: No acute distress, alert and oriented x3 Resp: Other: Breathing comfortably on room air, no respiratory distress GI: Other: Soft and nondistended, no rebound or guarding. I and D site in the right lower quadrant is open and draining. Princess were advanced and some gas and purulence was drained. Dressings were changed in both right lower quadrant and right flank incisions. Overall the erythema appears improved but is still present. Skin: Other: Abscess in the right lower quadrant as noted above General skin exam: no rashes or lesions noted Extrem: General: No edema Procedures Date of Service Date of Service: 07/16/21 Progress Note: A&P Assessment and plan (1) Abdominal wall abscess: Status: Acute Assessment and Plan: Patient is now status post incision and drainage of an abscess in the right lower quadrant yesterday, noted on yesterday CT. He tolerated the procedure well and his wounds continue to drain purulence material. The lateral wound in the right flank is draining only a small amount of fluid now appears to be closing nicely. Will continue with the local wound care and IV antibiotics. Wound cultures are pending from the I and D. I encourage patient to get out of bed and ambulate. Deep breathing exercises were also encouraged. Fall Risk Details Current Medications: Current Medications Generic Name Dose Route Start Last Admin Trade Name Freq PRN Reason Stop Dose Admin Acetaminophen 650 mg 07/03/21 14:18 Acetaminophen 325 Mg Tablet PO Q6H PRN Pain, Mild (Pain Scale 1-3) Amiodarone HCl 200 mg 07/04/21 09:00 07/16/21 08:00 Amiodarone Hcl 200 Mg Tablet PO 200 mg DAILY KANCHAN Administration Carvedilol 6.25 mg 07/03/21 21:00 07/16/21 08:00 Carvedilol 6.25 Mg Tablet PO 6.25 mg BID KANCHAN Administration Protocol Dextrose 25 gm 07/03/21 16:18 Dextrose 50 % 25 Gm/50 Ml Vial IVPUSH Q15M PRN per Hypoglycemia Standing Ord. Protocol Gemfibrozil 600 mg 07/04/21 07:30 07/16/21 08:00 Gemfibrozil 600 Mg Tablet PO 600 mg BIDAC KANCHAN Administration Glucose 15 gm 07/03/21 16:18 Glucose Gel 15 Gm Gel..Gram. PO Q15M PRN per Hypoglycemia Standing Ord. Protocol Hydromorphone HCl 0.5 mg 07/12/21 17:02 07/16/21 10:03 Hydromorphone Hcl 0.5 Mg/0.5 Ml Syringe IVPUSH 0.5 mg Q3H PRN Administration Pain, Severe (Pain Scale 7-10) Protocol Piperacillin Sod/Tazobactam 50 mls @ 100 mls/hr 07/03/21 16:00 07/16/21 09:55 Sod 3.375 gm/ Sodium Chloride IV 100 mls/hr Q6H KANCHAN Administration Promethazine HCl 12.5 mg/ 50.5 mls @ 202 mls/hr 07/05/21 10:28 07/14/21 18:30 Sodium Chloride IV Infused Q4H PRN Infusion nausea Insulin Human Lispro 0 unit 07/05/21 16:30 07/16/21 08:01 Insulin Lispro 100 Unit/Ml 3 Ml Vial SUBCUT 2 unit QIDACHS KANCHAN Administration Protocol Loperamide HCl 2 mg 07/08/21 07:29 07/11/21 10:35 Loperamide Hcl Oral Liquid 2 Mg/15 Ml Liquid PO 2 mg Q6H PRN Administration diarrhea Nystatin 1 appl 07/14/21 09:00 07/16/21 09:59 Nystatin Cream 15 Gm Tube TOPICAL 1 appl BID KANCHAN Administration Protocol Omeprazole 20 mg 07/03/21 16:30 07/16/21 06:19 Omeprazole 20 Mg Capsule. PO 20 mg BID@0630,1630 KANCHAN Administration Ondansetron HCl 4 mg 07/03/21 14:18 07/05/21 03:37 Ondansetron Hcl 4 Mg/2 Ml Vial IVPUSH 4 mg Q6H PRN Administration Nausea and Vomiting Pharmacy Consult 1 each 07/03/21 14:18 Consult Rx Perform Med Rec MISCELLANE ONCE PRN Consult order Rivaroxaban 20 mg 07/04/21 17:00 07/15/21 16:58 Rivaroxaban 20 Mg Tablet PO 20 mg DAILY@1700 KANCHAN Administration Sodium Chloride 3 ml 07/03/21 16:00 07/16/21 08:00 0.9 % Sodium Chloride Flush 3 Ml Syringe IVFLUSH 3 ml QSHIFT KANCHAN Administration Spironolactone 25 mg 07/04/21 09:00 07/16/21 08:00 Spironolactone 25 Mg Tablet PO 25 mg DAILY KANCHAN Administration Protocol Trazodone HCl 50 mg 07/03/21 21:00 07/15/21 20:20 Trazodone Hcl 50 Mg Tablet PO 50 mg BEDTIME KANCHAN Administration Time Spent With Patient Time: Total time spent is greater than 50% in coordination of care (as documented) at patient's floor/unit and/or counseling patient: Time with patient: 15 - 24 minutes Quality Stroke Does the patient have a stroke diagnosis?: No VTE Prior VTE?: No VTE Risk Level:: Surgical - moderate VTE Device Contraindication: N/A - Device Ordered VTE Drug Contraindication: N/A - Med Ordered
[2021-07-16 11:28] LABS: Glucose, Whole Blood 126 mg/dL (60-115)
[2021-07-16 16:14] LABS: Glucose, Whole Blood 158 mg/dL (60-115)
[2021-07-16] MEDS: Rivaroxaban 20 MG TABLET PO (16:41)
--- NOTE | 2021-07-16 17:44 | PC.NURSE ---
Patient refuses sequentials ,stating dr. Lombardo said he does not have to
[2021-07-16 20:13] LABS: Glucose, Whole Blood 120 mg/dL (60-115)
[2021-07-16] MEDS: traZODone HCL 50 MG TABLET PO (21:15)
[2021-07-17] VITALS (10 sets, daily range): BP systolic 117–149; BP diastolic 61–78; PULSE 71–100; RESP 16–20; TEMP 36.1–36.6; O2SAT 92–98
[2021-07-17] MEDS: HYDROmorphone HCl 0.5 MG/0.5 ML SYRINGE IVPUSH ×6 (00:52→21:45)
[2021-07-17] MEDS: Piperacillin Sodium/Tazobactam 3.375 GM in 0.9 % Sodium Chloride 50 ML IV ×4 (04:27→21:01)
[2021-07-17] MEDS: Omeprazole 20 MG CAPSULE.DR PO ×2 (05:17→15:28)
[2021-07-17 07:18] LABS: Glucose, Whole Blood 110 mg/dL (60-115)
[2021-07-17] MEDS: Amiodarone HCL 200 MG TABLET PO (08:44)
[2021-07-17] MEDS: Spironolactone 25 MG TABLET PO (08:44)
[2021-07-17] MEDS: gemfibroziL 600 MG TABLET PO ×2 (08:44→15:28)
[2021-07-17] MEDS: carvediloL 6.25 MG TABLET PO ×2 (08:44→20:00)
[2021-07-17] MEDS: 0.9 % Sodium Chloride Flush 3 ML SYRINGE IVFLUSH ×2 (08:44→15:26)
[2021-07-17] MEDS: Nystatin Cream 15 GM TUBE 1 APPL TOPICAL ×2 (08:45→20:01)
[2021-07-17 12:02] LABS: Glucose, Whole Blood 126 mg/dL (60-115)
--- NOTE | 2021-07-17 12:47 | PM.PNGS ---
Subjective Subjective Date of Service: 07/17/21 Interval history: Patient reports constipation, abdominal pain is improved. Denies any further nausea or vomiting. Appetite is fair Physical Exam Vital Signs: Vital Signs: Last Vital Signs Temp 97 F 07/17/21 11:06 Pulse 80 07/17/21 11:06 Resp 20 07/17/21 11:06 BP 128/66 07/17/21 11:06 Pulse Ox 95 07/17/21 11:06 Body Mass Index 24.0 Const: General: no acute distress Orientation/consciousness: patient oriented x3 Resp: Effort & Inspection: normal respiratory effort GI: Other: Soft, nondistended, dressings changed to abdominal incisions. Wick in the right lower quadrant advanced. Right flank dressings changed. Decrease in the erythema. Abscess continues to drain. Skin: General skin exam: no rashes or lesions noted Neuro: General: patient oriented x3 Extrem: General: Yes full ROM Procedures Date of Service Date of Service: 07/17/21 Progress Note: A&P Assessment and plan (1) Abdominal wall abscess: Status: Acute Assessment and Plan: Status post incision and drainage of abdominal wall abscess 2 days ago. Wounds are much improved but continues to drain purulence output. Wound culture reveals Gram-negative rods. Full report pending. Continue current antibiotics. Encourage patient to get out of bed, deep inspiration. Fall Risk Details Current Medications: Current Medications Generic Name Dose Route Start Last Admin Trade Name Freq PRN Reason Stop Dose Admin Acetaminophen 650 mg 07/03/21 14:18 Acetaminophen 325 Mg Tablet PO Q6H PRN Pain, Mild (Pain Scale 1-3) Amiodarone HCl 200 mg 07/04/21 09:00 07/17/21 08:44 Amiodarone Hcl 200 Mg Tablet PO 200 mg DAILY KANCHAN Administration Carvedilol 6.25 mg 07/03/21 21:00 07/17/21 08:44 Carvedilol 6.25 Mg Tablet PO 6.25 mg BID KANCHAN Administration Protocol Dextrose 25 gm 07/03/21 16:18 Dextrose 50 % 25 Gm/50 Ml Vial IVPUSH Q15M PRN per Hypoglycemia Standing Ord. Protocol Gemfibrozil 600 mg 07/04/21 07:30 07/17/21 08:44 Gemfibrozil 600 Mg Tablet PO 600 mg BIDAC KANCHAN Administration Glucose 15 gm 07/03/21 16:18 Glucose Gel 15 Gm Gel..Gram. PO Q15M PRN per Hypoglycemia Standing Ord. Protocol Hydromorphone HCl 0.5 mg 07/12/21 17:02 07/17/21 09:34 Hydromorphone Hcl 0.5 Mg/0.5 Ml Syringe IVPUSH 0.5 mg Q3H PRN Administration Pain, Severe (Pain Scale 7-10) Protocol Piperacillin Sod/Tazobactam 50 mls @ 100 mls/hr 07/03/21 16:00 07/17/21 11:36 Sod 3.375 gm/ Sodium Chloride IV Infused Q6H KANCHAN Infusion Promethazine HCl 12.5 mg/ 50.5 mls @ 202 mls/hr 07/05/21 10:28 07/17/21 09:19 Sodium Chloride IV Infused Q4H PRN Infusion nausea Insulin Human Lispro 0 unit 07/05/21 16:30 07/17/21 07:29 Insulin Lispro 100 Unit/Ml 3 Ml Vial SUBCUT Not Given QIDACHS [facility] Protocol Loperamide HCl 2 mg 07/08/21 07:29 07/11/21 10:35 Loperamide Hcl Oral Liquid 2 Mg/15 Ml Liquid PO 2 mg Q6H PRN Administration diarrhea Magnesium Hydroxide 30 ml 07/17/21 12:45 Milk Of Magnesia 30 Ml Oral.Susp PO DAILY PRN Constipation Nystatin 1 appl 07/14/21 09:00 07/17/21 08:45 Nystatin Cream 15 Gm Tube TOPICAL 1 appl BID KANCHAN Administration Protocol Omeprazole 20 mg 07/03/21 16:30 07/17/21 05:17 Omeprazole 20 Mg Capsule.Dr PO 20 mg BID@0630,1630 KANCHAN Administration Ondansetron HCl 4 mg 07/03/21 14:18 07/05/21 03:37 Ondansetron Hcl 4 Mg/2 Ml Vial IVPUSH 4 mg Q6H PRN Administration Nausea and Vomiting Pharmacy Consult 1 each 07/03/21 14:18 Consult Rx Perform Med Rec MISCELLANE ONCE PRN Consult order Rivaroxaban 20 mg 07/04/21 17:00 07/16/21 16:41 Rivaroxaban 20 Mg Tablet PO 20 mg DAILY@1700 [facility] Administration Sodium Chloride 3 ml 07/03/21 16:00 07/17/21 08:44 0.9 % Sodium Chloride Flush 3 Ml Syringe IVFLUSH 3 ml QSHIFT KANCHAN Administration Spironolactone 25 mg 07/04/21 09:00 07/17/21 08:44 Spironolactone 25 Mg Tablet PO 25 mg DAILY KANCHAN Administration Protocol Trazodone HCl 50 mg 07/03/21 21:00 07/16/21 21:15 Trazodone Hcl 50 Mg Tablet PO 50 mg BEDTIME KANCHAN Administration Time Spent With Patient Time: Total time spent is greater than 50% in coordination of care (as documented) at patient's floor/unit and/or counseling patient: Time with patient: 15 - 24 minutes Quality Stroke Does the patient have a stroke diagnosis?: No VTE Prior VTE?: No VTE Risk Level:: Surgical - moderate VTE Device Contraindication: N/A - Device Ordered VTE Drug Contraindication: N/A - Med Ordered
[2021-07-17 16:30] LABS: Glucose, Whole Blood 154 mg/dL (60-115)
[2021-07-17] MEDS: Insulin Lispro 100 UNIT/ML 3 ML VIAL SUBCUT ×2 (17:31→21:00)
[2021-07-17] MEDS: Rivaroxaban 20 MG TABLET PO (17:31)
[2021-07-17] MEDS: traZODone HCL 50 MG TABLET PO (20:00)
[2021-07-17 20:33] LABS: Glucose, Whole Blood 161 mg/dL (60-115)
[2021-07-18] VITALS (8 sets, daily range): BP systolic 111–140; BP diastolic 65–82; PULSE 83–111; RESP 17–19; TEMP 35.6–37; O2SAT 91–94
[2021-07-18] MEDS: 0.9 % Sodium Chloride Flush 3 ML SYRINGE IVFLUSH ×4 (00:22→23:19)
[2021-07-18] MEDS: HYDROmorphone HCl 0.5 MG/0.5 ML SYRINGE IVPUSH ×6 (00:26→22:11)
[2021-07-18] MEDS: Piperacillin Sodium/Tazobactam 3.375 GM in 0.9 % Sodium Chloride 50 ML IV ×4 (04:40→22:12)
[2021-07-18] MEDS: Omeprazole 20 MG CAPSULE.DR PO ×2 (07:10→16:03)
[2021-07-18 07:48] LABS: Glucose, Whole Blood 130 mg/dL (60-115)
--- NOTE | 2021-07-18 08:20 | P.PNGS_ITS ---
Subjective Subjective Date of Service: 07/18/21 Interval history: Reports some abdominal pain in the right lower quadrant, slightly improved. Has not gotten out of bed. Physical Exam Vital Signs: Vital Signs: Last Vital Signs Temp 96.8 F 07/18/21 07:16 Pulse 85 07/18/21 07:16 Resp 18 07/18/21 07:16 BP 138/67 07/18/21 07:16 Pulse Ox 94 07/18/21 07:16 Body Mass Index 24.0 Const: General: cooperative, alert and awake Orientation/consciousness: patient oriented x3 Limitations: physical limitations Resp: Other: Breathing comfortably on room air, no respiratory distress GI: Other: Soft, nondistended, normal bowel sounds. Dressings changed. Serous drainage from the flank wound. Purulence discharge still from the right lower quadrant wound. Princess were advanced and dressings changed. Patient tolerated dressing change well. Neuro: General: patient oriented x3 Extrem: General: No edema Procedures Date of Service Date of Service: 07/18/21 Progress Note: A&P Assessment and plan (1) Abdominal wall abscess: Status: Acute Assessment and Plan: Patient continues to drain purulence fluid from the abdominal wound. Culture results revealed Gram-negative rods which should be covered with the Zosyn. Await further identification hand sensitivities. Fall Risk Details Current Medications: Current Medications Generic Name Dose Route Start Last Admin Trade Name Freq PRN Reason Stop Dose Admin Acetaminophen 650 mg 07/03/21 14:18 Acetaminophen 325 Mg Tablet PO Q6H PRN Pain, Mild (Pain Scale 1-3) Amiodarone HCl 200 mg 07/04/21 09:00 07/17/21 08:44 Amiodarone Hcl 200 Mg Tablet PO 200 mg DAILY [facility]AN Administration Carvedilol 6.25 mg 07/03/21 21:00 07/17/21 20:00 Carvedilol 6.25 Mg Tablet PO 6.25 mg BID [facility]ANCHAN Administration Protocol Dextrose 25 gm 07/03/21 16:18 Dextrose 50 % 25 Gm/50 Ml Vial IVPUSH Q15M PRN per Hypoglycemia Standing Ord. Protocol Gemfibrozil 600 mg 07/04/21 07:30 07/17/21 15:28 Gemfibrozil 600 Mg Tablet PO 600 mg BIDAC [facility] Administration Glucose 15 gm 07/03/21 16:18 Glucose Gel 15 Gm Gel..Gram. PO Q15M PRN per Hypoglycemia Standing Ord. Protocol Hydromorphone HCl 0.5 mg 07/12/21 17:02 07/18/21 04:53 Hydromorphone Hcl 0.5 Mg/0.5 Ml Syringe IVPUSH 0.5 mg Q3H PRN Administration Pain, Severe (Pain Scale 7-10) Protocol Piperacillin Sod/Tazobactam 50 mls @ 100 mls/hr 07/03/21 16:00 07/18/21 05:52 Sod 3.375 gm/ Sodium Chloride IV Infused Q6H [facility] Infusion Promethazine HCl 12.5 mg/ 50.5 mls @ 202 mls/hr 07/05/21 10:28 07/17/21 20:34 Sodium Chloride IV Infused Q4H PRN Infusion nausea Insulin Human Lispro 0 unit 07/05/21 16:30 07/18/21 08:03 Insulin Lispro 100 Unit/Ml 3 Ml Vial SUBCUT Not Given QIDACHS COUNTS INCLUDE 234 BEDS AT THE [facility] Protocol Loperamide HCl 2 mg 07/08/21 07:29 07/11/21 10:35 Loperamide Hcl Oral Liquid 2 Mg/15 Ml Liquid PO 2 mg Q6H PRN Administration diarrhea Magnesium Hydroxide 30 ml 07/17/21 12:45 Milk Of Magnesia 30 Ml Oral.Susp PO DAILY PRN Constipation Nystatin 1 appl 07/14/21 09:00 07/17/21 20:01 Nystatin Cream 15 Gm Tube TOPICAL 1 appl BID KANCHAN Administration Protocol Omeprazole 20 mg 07/03/21 16:30 07/18/21 07:10 Omeprazole 20 Mg Capsule.Dr PO 20 mg BID@0630,1630 [facility] Administration Ondansetron HCl 4 mg 07/03/21 14:18 07/05/21 03:37 Ondansetron Hcl 4 Mg/2 Ml Vial IVPUSH 4 mg Q6H PRN Administration Nausea and Vomiting Pharmacy Consult 1 each 07/03/21 14:18 Consult Rx Perform Med Rec MISCELLANE ONCE PRN Consult order Rivaroxaban 20 mg 07/04/21 17:00 07/17/21 17:31 Rivaroxaban 20 Mg Tablet PO 20 mg DAILY@1700 [facility] Administration Sodium Chloride 3 ml 07/03/21 16:00 07/18/21 00:22 0.9 % Sodium Chloride Flush 3 Ml Syringe IVFLUSH 3 ml QSHIFT [facility] Administration Spironolactone 25 mg 07/04/21 09:00 07/17/21 08:44 Spironolactone 25 Mg Tablet PO 25 mg DAILY K[facility]CHAN Administration Protocol Trazodone HCl 50 mg 07/03/21 21:00 07/17/21 20:00 Trazodone Hcl 50 Mg Tablet PO 50 mg BEDTIME [facility] Administration Time Spent With Patient Time: Total time spent is greater than 50% in coordination of care (as documented) at patient's floor/unit and/or counseling patient: Time with patient: 15 - 24 minutes Quality Stroke Does the patient have a stroke diagnosis?: No VTE Prior VTE?: No VTE Risk Level:: Surgical - moderate VTE Device Contraindication: N/A - Device Ordered VTE Drug Contraindication: N/A - Med Ordered
[2021-07-18] MEDS: carvediloL 6.25 MG TABLET PO ×2 (09:36→22:12)
[2021-07-18] MEDS: gemfibroziL 600 MG TABLET PO ×2 (09:37→16:03)
[2021-07-18] MEDS: Amiodarone HCL 200 MG TABLET PO (09:37)
[2021-07-18] MEDS: Spironolactone 25 MG TABLET PO (09:37)
--- NOTE | 2021-07-18 11:46 | MHC.CLN ---
F/U PATIENT WITH NEW STAGE II WOUND TO BUTTOCKS. CURRENT PREESSURE AREAS: STAGE I LOWER BACK, STAGE II TO BUTTOCKS, STAGE II TO LEFT LEG, HAS ABDOMINAL INCISION. LEFT KNEE IS HEALED (07/14). DOCUMENTATION SHOWS USUALLY GOOD INTAKE 75-100%. NO ADDITIONAL SUPPLEMENTATION PER PATIENT PREFERENCE.
[2021-07-18 12:11] LABS: Glucose, Whole Blood 164 mg/dL (60-115)
--- NOTE | 2021-07-18 14:30 | MHC.CM.PN ---
PT NOT YET MEDICALLY CLEARED FOR DC. DC PLAN CONTINUES TO BE HOME WITH [facility] FOR SN SERVICES
[2021-07-18] MEDS: Rivaroxaban 20 MG TABLET PO (16:03)
[2021-07-18 16:23] LABS: Glucose, Whole Blood 135 mg/dL (60-115)
[2021-07-18 21:15] LABS: Glucose, Whole Blood 130 mg/dL (60-115)
[2021-07-18] MEDS: traZODone HCL 50 MG TABLET PO (22:12)
[2021-07-19] VITALS (7 sets, daily range): BP systolic 119–151; BP diastolic 63–76; PULSE 72–108; RESP 16–20; TEMP 36–36.5; O2SAT 92–97
[2021-07-19] MEDS: Piperacillin Sodium/Tazobactam 3.375 GM in 0.9 % Sodium Chloride 50 ML IV (02:57)
[2021-07-19] MEDS: HYDROmorphone HCl 0.5 MG/0.5 ML SYRINGE IVPUSH ×5 (03:00→21:50)
--- NOTE | 2021-07-19 04:11 | PC.NURSE ---
[id number]; Patient has been refusing to get reposition on this shift. Unable to assess pt skin. Pt educated on the importance of frequent reposition to prevent further skin breakdown. Pt has a stage II to mid-back, and fungal rash to buttocks/groin area, and pressure ulcer to left stump per documentation. Pt states he is able to move in bed on his own.
[2021-07-19] MEDS: levoFLOXacin/D5W 500 MG/100 ML PIGGYBACK 100 MG IV (06:43)
[2021-07-19] MEDS: Omeprazole 20 MG CAPSULE.DR PO ×2 (06:43→15:59)
[2021-07-19] MEDS: metroNIDAZOLE/NS 500 MG/100 ML PIGGYBACK 100 MG IV ×3 (07:30→21:43)
[2021-07-19 07:57] LABS: Glucose, Whole Blood 113 mg/dL (60-115)
--- NOTE | 2021-07-19 08:52 | PM.PNGS ---
Subjective Subjective Date of Service: 07/19/21 Interval history: No new complaints this morning, still has some abdominal pain with this is improved. His appetite is slightly improved, now fair. Physical Exam Vital Signs: Vital Signs: Last Vital Signs Temp 96.8 F 07/19/21 07:45 Pulse 108 H 07/19/21 07:45 Resp 18 07/19/21 07:45 BP 131/76 07/19/21 07:45 Pulse Ox 97 07/19/21 07:45 Body Mass Index 24.0 Const: General: comfortable, alert and awake Orientation/consciousness: patient oriented x3 Limitations: ambulation with walker HENMT: Head: Yes normocephalic and Yes atraumatic GI: Other: Dressings changed: No residual erythema appreciated. Wick advanced in the right lower quadrant incision. Purulence still noted when pressure applied. Flank dressing is mainly serous output. Clean dressings applied. Skin: Other: Abdominal wound is noted above General skin exam: no rashes or lesions noted Neuro: General: patient oriented x3 Extrem: Other: Right transmetatarsal amputation, left BKA. Procedures Date of Service Date of Service: 07/19/21 Progress Note: A&P Assessment and plan (1) Abdominal wall abscess: Status: Acute Assessment and Plan: Overall his wounds are improving but continue to drain purulence discharge. Wound culture revealed Klebsiella sensitive to levofloxacin. Zosyn was discontinued Levaquin and Flagyl started. Will recheck labs in a.m.. Patient encouraged to get out of bed and ambulate. He is refusing physical therapy at this time. Fall Risk Details Current Medications: Current Medications Generic Name Dose Route Start Last Admin Trade Name Freq PRN Reason Stop Dose Admin Acetaminophen 650 mg 07/03/21 14:18 Acetaminophen 325 Mg Tablet PO Q6H PRN Pain, Mild (Pain Scale 1-3) Amiodarone HCl 200 mg 07/04/21 09:00 07/18/21 09:37 Amiodarone Hcl 200 Mg Tablet PO 200 mg DAILY KANCHAN Administration Carvedilol 6.25 mg 07/03/21 21:00 07/18/21 22:12 Carvedilol 6.25 Mg Tablet PO 6.25 mg BID KANCHAN Administration Protocol Dextrose 25 gm 07/03/21 16:18 Dextrose 50 % 25 Gm/50 Ml Vial IVPUSH Q15M PRN per Hypoglycemia Standing Ord. Protocol Gemfibrozil 600 mg 07/04/21 07:30 07/18/21 16:03 Gemfibrozil 600 Mg Tablet PO 600 mg BIDAC KANCHAN Administration Glucose 15 gm 07/03/21 16:18 Glucose Gel 15 Gm Gel..Gram. PO Q15M PRN per Hypoglycemia Standing Ord. Protocol Hydromorphone HCl 0.5 mg 07/12/21 17:02 07/19/21 03:00 Hydromorphone Hcl 0.5 Mg/0.5 Ml Syringe IVPUSH 0.5 mg Q3H PRN Administration Pain, Severe (Pain Scale 7-10) Protocol Promethazine HCl 12.5 mg/ 50.5 mls @ 202 mls/hr 07/05/21 10:28 07/19/21 05:12 Sodium Chloride IV Infused Q4H PRN Infusion nausea Levofloxacin 500 mg in 100 mls @ 100 mls/hr 07/19/21 06:15 07/19/21 07:49 Levaquin IV Infused Q24H K[facility]CHAN Infusion Metronidazole 500 mg in 100 mls @ 100 mls/hr 07/19/21 06:15 07/19/21 07:30 Flagyl IV 100 mls/hr Q8H [facility] Administration Insulin Human Lispro 0 unit 07/05/21 16:30 07/18/21 22:12 Insulin Lispro 100 Unit/Ml 3 Ml Vial SUBCUT Not Given QIDACHS [facility] Protocol Loperamide HCl 2 mg 07/08/21 07:29 07/11/21 10:35 Loperamide Hcl Oral Liquid 2 Mg/15 Ml Liquid PO 2 mg Q6H PRN Administration diarrhea Magnesium Hydroxide 30 ml 07/17/21 12:45 Milk Of Magnesia 30 Ml Oral.Susp PO DAILY PRN Constipation Nystatin 1 appl 07/14/21 09:00 07/18/21 22:14 Nystatin Cream 15 Gm Tube TOPICAL Not Given BID [facility] Protocol Omeprazole 20 mg 07/03/21 16:30 07/19/21 06:43 Omeprazole 20 Mg Capsule.Dr PO 20 mg BID@0630,1630 [facility] Administration Ondansetron HCl 4 mg 07/03/21 14:18 07/05/21 03:37 Ondansetron Hcl 4 Mg/2 Ml Vial IVPUSH 4 mg Q6H PRN Administration Nausea and Vomiting Pharmacy Consult 1 each 07/03/21 14:18 Consult Rx Perform Med Rec MISCELLANE ONCE PRN Consult order Rivaroxaban 20 mg 07/04/21 17:00 07/18/21 16:03 Rivaroxaban 20 Mg Tablet PO 20 mg DAILY@1700 [facility] Administration Sodium Chloride 3 ml 07/03/21 16:00 07/18/21 23:19 0.9 % Sodium Chloride Flush 3 Ml Syringe IVFLUSH 3 ml QSHIFT [facility]AN Administration Spironolactone 25 mg 07/04/21 09:00 07/18/21 09:37 Spironolactone 25 Mg Tablet PO 25 mg DAILY KANCHAN Administration Protocol Trazodone HCl 50 mg 07/03/21 21:00 07/18/21 22:12 Trazodone Hcl 50 Mg Tablet PO 50 mg BEDTIME K[facility]CHAN Administration Zolpidem Tartrate 10 mg 07/19/21 08:05 Zolpidem Tartrate 5 Mg Tablet PO BEDTIME PRN Insomnia Time Spent With Patient Time: Total time spent is greater than 50% in coordination of care (as documented) at patient's floor/unit and/or counseling patient: Time with patient: 15 - 24 minutes Quality Stroke Does the patient have a stroke diagnosis?: No VTE Prior VTE?: No VTE Risk Level:: Surgical - moderate VTE Device Contraindication: N/A - Device Ordered VTE Drug Contraindication: N/A - Med Ordered
[2021-07-19] MEDS: Spironolactone 25 MG TABLET PO (09:39)
[2021-07-19] MEDS: gemfibroziL 600 MG TABLET PO ×2 (09:39→15:59)
[2021-07-19] MEDS: Amiodarone HCL 200 MG TABLET PO (09:39)
[2021-07-19] MEDS: 0.9 % Sodium Chloride Flush 3 ML SYRINGE IVFLUSH ×3 (09:40→21:43)
[2021-07-19] MEDS: carvediloL 6.25 MG TABLET PO ×2 (09:46→21:13)
[2021-07-19 12:06] LABS: Glucose, Whole Blood 123 mg/dL (60-115)
[2021-07-19 15:42] LABS: Glucose, Whole Blood 130 mg/dL (60-115)
[2021-07-19] MEDS: Rivaroxaban 20 MG TABLET PO (15:59)
[2021-07-19 20:15] LABS: Glucose, Whole Blood 137 mg/dL (60-115)
[2021-07-19] MEDS: traZODone HCL 50 MG TABLET PO (21:13)
[2021-07-19] MEDS: Nystatin Cream 15 GM TUBE 1 APPL TOPICAL (21:13)
[2021-07-19] MEDS: Zolpidem Tartrate 5 MG TABLET 10 MG PO (21:16)
[2021-07-20] VITALS (9 sets, daily range): BP systolic 121–140; BP diastolic 70–80; PULSE 75–109; RESP 17–18; TEMP 36.4–36.7; O2SAT 90–98
[2021-07-20] MEDS: HYDROmorphone HCl 0.5 MG/0.5 ML SYRINGE IVPUSH ×7 (00:57→23:55)
[2021-07-20] MEDS: levoFLOXacin/D5W 500 MG/100 ML PIGGYBACK 100 MG IV (05:56)
[2021-07-20] MEDS: Omeprazole 20 MG CAPSULE.DR PO ×2 (06:00→16:05)
[2021-07-20 06:39] LABS: MANUAL DIFF FLAG NO
[2021-07-20 06:45] LABS: Basophils Percent Auto 0.2 % (0-2); Eosinophils Absolute Auto 0.5 X10*3/uL (0.0-0.4); Eosinophils Percent Auto 4.4 % (0-4); Hematocrit 31.3 % (42-52); Hemoglobin 9.7 g/dl (14.0-18.0); Imm Gran Abs Auto 0.04 X10*3/uL (0.00-0.03); Imm Gran Pct Auto 0.4 % (0.0-0.4); Lymphocytes Absolute Auto 0.9 X10*3/uL (1.2-4.9); Lymphocytes Percent Auto 7.9 % (20-40); Mean Corpuscular Hemoglobin 28.7 pg (27.0-33.0); Mean Corpuscular Volume 92.6 fL (80-98); Mean Platelet Volume 11.5 fL (9.4-12.4); Monocytes Absolute Auto 0.7 X10*3/uL (0.1-1.2); Monocytes Percent Auto 6.9 % (2-11); Neutrophils Absolute Auto 8.6 X10*3/uL (2.0-8.3); Neutrophils Percent Auto 80.2 % (45-73); Platelet Count 212 X10*3/uL (160-400); Red Blood Count 3.38 X10*6/uL (4.60-5.80); Red Cell Distribution Width 16.7 % (11.0-16.0); White Blood Count 10.8 X10*3/uL (4.8-10.8)
[2021-07-20 07:06] LABS: Anion Gap 12 (12-20); Blood Urea Nitrogen 6 mg/dL (9-16); Calcium 8.1 mg/dL (8.4-10.2); Carbon Dioxide 25 mmol/L (22-29); Chloride 104 mmol/L (96-108); Creatinine Clr Calc Pharmacy 138.6; Estimated Glomerular Filt Rate > 60; Glucose Random 129 mg/dL (60-115); Potassium 4.2 mmol/L (3.3-5.1); Sodium 137 mmol/L (135-145)
[2021-07-20] MEDS: metroNIDAZOLE/NS 500 MG/100 ML PIGGYBACK 100 MG IV ×3 (07:10→21:11)
[2021-07-20 07:31] LABS: Glucose, Whole Blood 123 mg/dL (60-115)
--- NOTE | 2021-07-20 09:35 | P.PNGS_ITS ---
Subjective Subjective Date of Service: 07/20/21 Interval history: Overall patient is feeling improved with decreased right lower quadrant pain. Appetite is still poor. He has not gotten out of bed yet but does have his walker available. He denies fever or chills. Physical Exam Vital Signs: Vital Signs: Last Vital Signs Temp 97.8 F 07/20/21 07:50 Pulse 88 07/20/21 07:50 Resp 18 07/20/21 07:50 BP 133/72 07/20/21 07:50 Pulse Ox 93 07/20/21 07:50 Body Mass Index 24.0 Const: General: alert and awake Orientation/consciousness: patient oriented x3 Limitations: no limitations Resp: Other: Breathing comfortably on room air GI: Other: Soft, nondistended, nontender, dressings changed in the right lower quadrant and right flank. Discharge is now more serous both incisions. The wick was advanced and some purulence discharge was expressed with light pressure. No surrounding erythema is identified at this time. Dry sterile dressings were applied. Skin: Other: Abdominal wound is noted above, otherwise skin warm and dry without rash Neuro: General: patient oriented x3 Extrem: Other: Status post right transmetatarsal amputation and left below- knee amputation. Procedures Date of Service Date of Service: 07/20/21 Progress Note: A&P Assessment and plan (1) Abdominal wall abscess: Status: Acute Assessment and Plan: Overall his wounds are improving but continue to drain purulent fluid.? Wound culture revealed Klebsiella sensitive to levofloxacin.? Continue Levaquin and Flagyl and switch to p.o. upon discharge. A.m. laboratories revealed normal white blood cell count. Plan physical therapy in the morning for ambulation. Fall Risk Details Current Medications: Current Medications Generic Name Dose Route Start Last Admin Trade Name Freq PRN Reason Stop Dose Admin Acetaminophen 650 mg 07/03/21 14:18 Acetaminophen 325 Mg Tablet PO Q6H PRN Pain, Mild (Pain Scale 1-3) Amiodarone HCl 200 mg 07/04/21 09:00 07/19/21 09:39 Amiodarone Hcl 200 Mg Tablet PO 200 mg DAILY KANCHAN Administration Carvedilol 6.25 mg 07/03/21 21:00 07/19/21 21:13 Carvedilol 6.25 Mg Tablet PO 6.25 mg BID KANCHAN Administration Protocol Dextrose 25 gm 07/03/21 16:18 Dextrose 50 % 25 Gm/50 Ml Vial IVPUSH Q15M PRN per Hypoglycemia Standing Ord. Protocol Gemfibrozil 600 mg 07/04/21 07:30 07/19/21 15:59 Gemfibrozil 600 Mg Tablet PO 600 mg BIDAC KANCHAN Administration Glucose 15 gm 07/03/21 16:18 Glucose Gel 15 Gm Gel..Gram. PO Q15M PRN per Hypoglycemia Standing Ord. Protocol Hydromorphone HCl 0.5 mg 07/12/21 17:02 07/20/21 04:21 Hydromorphone Hcl 0.5 Mg/0.5 Ml Syringe IVPUSH 0.5 mg Q3H PRN Administration Pain, Severe (Pain Scale 7-10) Protocol Promethazine HCl 12.5 mg/ 50.5 mls @ 202 mls/hr 07/05/21 10:28 07/19/21 17:01 Sodium Chloride IV Infused Q4H PRN Infusion nausea Levofloxacin 500 mg in 100 mls @ 100 mls/hr 07/19/21 06:15 07/20/21 05:56 Levaquin IV 100 mls/hr Q24H [facility] Administration Metronidazole 500 mg in 100 mls @ 100 mls/hr 07/19/21 06:15 07/20/21 08:28 Flagyl IV Infused Q8H [facility] Infusion Insulin Human Lispro 0 unit 07/05/21 16:30 07/20/21 07:50 Insulin Lispro 100 Unit/Ml 3 Ml Vial SUBCUT Not Given QIDACHS [facility] Protocol Loperamide HCl 2 mg 07/08/21 07:29 07/11/21 10:35 Loperamide Hcl Oral Liquid 2 Mg/15 Ml Liquid PO 2 mg Q6H PRN Administration diarrhea Magnesium Hydroxide 30 ml 07/17/21 12:45 Milk Of Magnesia 30 Ml Oral.Susp PO DAILY PRN Constipation Nystatin 1 appl 07/14/21 09:00 07/19/21 21:13 Nystatin Cream 15 Gm Tube TOPICAL 1 appl BID KANCHAN Administration Protocol Omeprazole 20 mg 07/03/21 16:30 07/20/21 06:00 Omeprazole 20 Mg Capsule. PO 20 mg BID@0630,1630 [facility]AN Administration Ondansetron HCl 4 mg 07/03/21 14:18 07/05/21 03:37 Ondansetron Hcl 4 Mg/2 Ml Vial IVPUSH 4 mg Q6H PRN Administration Nausea and Vomiting Pharmacy Consult 1 each 07/03/21 14:18 Consult Rx Perform Med Rec MISCELLANE ONCE PRN Consult order Rivaroxaban 20 mg 07/04/21 17:00 07/19/21 15:59 Rivaroxaban 20 Mg Tablet PO 20 mg DAILY@1700 [facility] Administration Sodium Chloride 3 ml 07/03/21 16:00 07/19/21 21:43 0.9 % Sodium Chloride Flush 3 Ml Syringe IVFLUSH 3 ml QSHIFT KANCHAN Administration Spironolactone 25 mg 07/04/21 09:00 07/19/21 09:39 Spironolactone 25 Mg Tablet PO 25 mg DAILY KANCHAN Administration Protocol Trazodone HCl 50 mg 07/03/21 21:00 07/19/21 21:13 Trazodone Hcl 50 Mg Tablet PO 50 mg BEDTIME K[facility]CHAN Administration Zolpidem Tartrate 10 mg 07/19/21 08:05 07/19/21 21:16 Zolpidem Tartrate 5 Mg Tablet PO 10 mg BEDTIME PRN Administration Insomnia Time Spent With Patient Time: Total time spent is greater than 50% in coordination of care (as doc umented) at patient's floor/unit and/or counseling patient: Time with patient: 15 - 24 minutes Quality Stroke Does the patient have a stroke diagnosis?: No VTE Prior VTE?: No VTE Risk Level:: Surgical - moderate VTE Device Contraindication: N/A - Device Ordered VTE Drug Contraindication: N/A - Med Ordered
[2021-07-20] MEDS: gemfibroziL 600 MG TABLET PO ×2 (09:44→16:05)
[2021-07-20] MEDS: Spironolactone 25 MG TABLET PO (09:44)
[2021-07-20] MEDS: 0.9 % Sodium Chloride Flush 3 ML SYRINGE IVFLUSH ×3 (09:45→23:49)
[2021-07-20] MEDS: Amiodarone HCL 200 MG TABLET PO (09:45)
[2021-07-20] MEDS: carvediloL 6.25 MG TABLET PO ×2 (09:45→20:08)
[2021-07-20 12:13] LABS: Glucose, Whole Blood 130 mg/dL (60-115)
[2021-07-20] MEDS: Rivaroxaban 20 MG TABLET PO (16:05)
[2021-07-20 16:27] LABS: Glucose, Whole Blood 115 mg/dL (60-115)
[2021-07-20] MEDS: traZODone HCL 50 MG TABLET PO (20:08)
[2021-07-20] MEDS: Zolpidem Tartrate 5 MG TABLET 10 MG PO (20:09)
[2021-07-20] MEDS: Nystatin Cream 15 GM TUBE 1 APPL TOPICAL (20:09)
[2021-07-20 20:15] LABS: Glucose, Whole Blood 141 mg/dL (60-115)
[2021-07-21] VITALS (7 sets, daily range): BP systolic 118–138; BP diastolic 60–80; PULSE 77–105; RESP 16–18; TEMP 36.2–37.1; O2SAT 92–96
[2021-07-21] MEDS: HYDROmorphone HCl 0.5 MG/0.5 ML SYRINGE IVPUSH ×5 (04:16→19:27)
[2021-07-21] MEDS: levoFLOXacin/D5W 500 MG/100 ML PIGGYBACK 100 MG IV (05:57)
[2021-07-21] MEDS: metroNIDAZOLE/NS 500 MG/100 ML PIGGYBACK 100 MG IV ×3 (07:11→21:02)
[2021-07-21] MEDS: Omeprazole 20 MG CAPSULE.DR PO ×2 (07:13→15:50)
[2021-07-21 08:08] LABS: Glucose, Whole Blood 121 mg/dL (60-115)
[2021-07-21] MEDS: Spironolactone 25 MG TABLET PO (09:01)
[2021-07-21] MEDS: gemfibroziL 600 MG TABLET PO ×2 (09:01→15:50)
[2021-07-21] MEDS: carvediloL 6.25 MG TABLET PO ×2 (09:01→19:26)
[2021-07-21] MEDS: Amiodarone HCL 200 MG TABLET PO (09:01)
[2021-07-21] MEDS: Nystatin Cream 15 GM TUBE 1 APPL TOPICAL ×2 (09:02→19:30)
[2021-07-21] MEDS: 0.9 % Sodium Chloride Flush 3 ML SYRINGE IVFLUSH ×3 (09:02→21:06)
--- NOTE | 2021-07-21 09:14 | PM.PNGS ---
Subjective Subjective Date of Service: 07/21/21 Interval history: Feels improved today but reports dressing needs to be changed during the night. Will try to get out of bed and ambulate today. Physical Exam Vital Signs: Vital Signs: Last Vital Signs Temp 97.1 F 07/21/21 08:00 Pulse 105 H 07/21/21 08:00 Resp 17 07/21/21 08:00 BP 136/80 07/21/21 08:00 Pulse Ox 96 07/21/21 08:00 Body Mass Index 24.0 GI: Other: Soft, nondistended, drains with moderate drainage from the right lower quadrant and minimal drainage from the right flank. Clean dressings applied. No erythema noted. Extrem: Other: No lower extremity edema Procedures Date of Service Date of Service: 07/21/21 Progress Note: A&P Assessment and plan (1) Abdominal wall abscess: Status: Acute Assessment and Plan: Patient continues to have output from the I and D site in the right lower quadrant and the right flank wound. The erythema is much improved however. Continue Levaquin and Flagyl. Anticipate discharge in 1-2 more days. Patient needs to ambulate today and tomorrow. Fall Risk Details Current Medications: Current Medications Generic Name Dose Route Start Last Admin Trade Name Freq PRN Reason Stop Dose Admin Acetaminophen 650 mg 07/03/21 14:18 Acetaminophen 325 Mg Tablet PO Q6H PRN Pain, Mild (Pain Scale 1-3) Amiodarone HCl 200 mg 07/04/21 09:00 07/21/21 09:01 Amiodarone Hcl 200 Mg Tablet PO 200 mg DAILY KANCHAN Administration Carvedilol 6.25 mg 07/03/21 21:00 07/21/21 09:01 Carvedilol 6.25 Mg Tablet PO 6.25 mg BID KANCHAN Administration Protocol Dextrose 25 gm 07/03/21 16:18 Dextrose 50 % 25 Gm/50 Ml Vial IVPUSH Q15M PRN per Hypoglycemia Standing Ord. Protocol Gemfibrozil 600 mg 07/04/21 07:30 07/21/21 09:01 Gemfibrozil 600 Mg Tablet PO 600 mg BIDAC KANCHAN Administration Glucose 15 gm 07/03/21 16:18 Glucose Gel 15 Gm Gel..Gram. PO Q15M PRN per Hypoglycemia Standing Ord. Protocol Hydromorphone HCl 0.5 mg 07/12/21 17:02 07/21/21 09:11 Hydromorphone Hcl 0.5 Mg/0.5 Ml Syringe IVPUSH 0.5 mg Q3H PRN Administration Pain, Severe (Pain Scale 7-10) Protocol Promethazine HCl 12.5 mg/ 50.5 mls @ 202 mls/hr 07/05/21 10:28 07/20/21 16:27 Sodium Chloride IV Infused Q4H PRN Infusion nausea Levofloxacin 500 mg in 100 mls @ 100 mls/hr 07/19/21 06:15 07/21/21 07:14 Levaquin IV Infused Q24H [facility] Infusion Metronidazole 500 mg in 100 mls @ 100 mls/hr 07/19/21 06:15 07/21/21 09:04 Flagyl IV Infused Q8H [facility] Infusion Insulin Human Lispro 0 unit 07/05/21 16:30 07/21/21 08:12 Insulin Lispro 100 Unit/Ml 3 Ml Vial SUBCUT Not Given QIDACHS [facility] Protocol Loperamide HCl 2 mg 07/08/21 07:29 07/11/21 10:35 Loperamide Hcl Oral Liquid 2 Mg/15 Ml Liquid PO 2 mg Q6H PRN Administration diarrhea Magnesium Hydroxide 30 ml 07/17/21 12:45 Milk Of Magnesia 30 Ml Oral.Susp PO DAILY PRN Constipation Nystatin 1 appl 07/14/21 09:00 07/21/21 09:02 Nystatin Cream 15 Gm Tube TOPICAL 1 appl BID KANCHAN Administration Protocol Omeprazole 20 mg 07/03/21 16:30 07/21/21 07:13 Omeprazole 20 Mg Capsule. PO 20 mg BID@0630,1630 [facility] Administration Ondansetron HCl 4 mg 07/03/21 14:18 07/05/21 03:37 Ondansetron Hcl 4 Mg/2 Ml Vial IVPUSH 4 mg Q6H PRN Administration Nausea and Vomiting Pharmacy Consult 1 each 07/03/21 14:18 Consult Rx Perform Med Rec MISCELLANE ONCE PRN Consult order Rivaroxaban 20 mg 07/04/21 17:00 07/20/21 16:05 Rivaroxaban 20 Mg Tablet PO 20 mg DAILY@1700 [facility] Administration Sodium Chloride 3 ml 07/03/21 16:00 07/21/21 09:02 0.9 % Sodium Chloride Flush 3 Ml Syringe IVFLUSH 3 ml QSHIFT [facility] Administration Spironolactone 25 mg 07/04/21 09:00 07/21/21 09:01 Spironolactone 25 Mg Tablet PO 25 mg DAILY KANCHAN Administration Protocol Trazodone HCl 50 mg 07/03/21 21:00 07/20/21 20:08 Trazodone Hcl 50 Mg Tablet PO 50 mg BEDTIME [facility]AN Administration Zolpidem Tartrate 10 mg 07/19/21 08:05 07/20/21 20:09 Zolpidem Tartrate 5 Mg Tablet PO 10 mg BEDTIME PRN Administration Insomnia Time Spent With Patient Time: Total time spent is greater than 50% in coordination of care (as documented) at patient's floor/unit and/or counseling patient: Time with patient: 15 - 24 minutes Quality Stroke Does the patient have a stroke diagnosis?: No VTE Prior VTE?: No VTE Risk Level:: Surgical - moderate VTE Device Contraindication: N/A - Device Ordered VTE Drug Contraindication: N/A - Med Ordered
[2021-07-21 11:47] LABS: Glucose, Whole Blood 133 mg/dL (60-115)
[2021-07-21] MEDS: Rivaroxaban 20 MG TABLET PO (15:49)
[2021-07-21 15:58] LABS: Glucose, Whole Blood 143 mg/dL (60-115)
[2021-07-21] MEDS: traZODone HCL 50 MG TABLET PO (19:27)
[2021-07-21 20:13] LABS: Glucose, Whole Blood 166 mg/dL (60-115)
[2021-07-21] MEDS: Insulin Lispro 100 UNIT/ML 3 ML VIAL SUBCUT (21:05)
[2021-07-22] VITALS (7 sets, daily range): BP systolic 107–140; BP diastolic 56–72; PULSE 78–108; RESP 14–19; TEMP 36–36.5; O2SAT 95–98
[2021-07-22] MEDS: HYDROmorphone HCl 0.5 MG/0.5 ML SYRINGE IVPUSH ×5 (00:34→21:13)
[2021-07-22] MEDS: levoFLOXacin/D5W 500 MG/100 ML PIGGYBACK 100 MG IV (04:46)
[2021-07-22] MEDS: Omeprazole 20 MG CAPSULE.DR PO ×2 (04:50→16:10)
[2021-07-22] MEDS: metroNIDAZOLE/NS 500 MG/100 ML PIGGYBACK 100 MG IV ×3 (06:35→21:15)
[2021-07-22] MEDS: carvediloL 6.25 MG TABLET PO ×2 (07:51→21:14)
[2021-07-22] MEDS: 0.9 % Sodium Chloride Flush 3 ML SYRINGE IVFLUSH ×3 (07:51→21:14)
[2021-07-22] MEDS: Amiodarone HCL 200 MG TABLET PO (07:51)
[2021-07-22] MEDS: gemfibroziL 600 MG TABLET PO ×2 (07:51→16:10)
[2021-07-22] MEDS: Spironolactone 25 MG TABLET PO (07:51)
[2021-07-22] MEDS: Nystatin Cream 15 GM TUBE 1 APPL TOPICAL ×2 (07:53→23:01)
[2021-07-22 08:01] LABS: Glucose, Whole Blood 124 mg/dL (60-115)
[2021-07-22 11:53] LABS: Glucose, Whole Blood 102 mg/dL (60-115)
--- NOTE | 2021-07-22 12:08 | MHC.CLN ---
F/U INTAKE AT MEALS VARIABLE WITH MANY MEALS 50-100%. BUTTOCKS STAGE I OF 07/20 (WAS STAGE II). CONTINUES WITH LOWER BACK STAGE I AND LEFT LEG STAGE II. DIET=REGULAR. NO NEW NUTRITION INTERVENTIONS. PATIENT DECLINED SUPPLEMENTS.
--- NOTE | 2021-07-22 15:01 | PM.PNGS ---
Subjective Subjective Date of Service: 07/22/21 Interval history: Was able to get out of bed today and ambulate with physical therapy. Had some dizziness and diarrhea generally felt okay. Has some pain in the right lower quadrant. Physical Exam Vital Signs: Vital Signs: Last Vital Signs Temp 96.9 F 07/22/21 11:40 Pulse 83 07/22/21 11:40 Resp 18 07/22/21 11:40 BP 138/70 07/22/21 11:40 Pulse Ox 98 07/22/21 11:40 Body Mass Index 24.0 Resp: Effort & Inspection: normal respiratory effort GI: Other: Soft and nondistended. Dressings changed. Decreased of discharge noted today. Princess advanced. Some right lower quadrant edema noted in the tissue and in the pannus. No erythema is appreciated however. Skin: Other: Warm, dry, no rash. Abdomen as noted above Procedures Date of Service Date of Service: 07/22/21 Progress Note: A&P Assessment and plan (1) Abdominal wall abscess: Status: Acute Assessment and Plan: Overall the wounds are improving although there is some edema in the right lower quadrant. He continues to have some purulence discharge from the right lower quadrant. Dressings were changed today. Continue physical therapy and IV antibiotics. Fall Risk Details Current Medications: Current Medications Generic Name Dose Route Start Last Admin Trade Name Freq PRN Reason Stop Dose Admin Acetaminophen 650 mg 07/03/21 14:18 Acetaminophen 325 Mg Tablet PO Q6H PRN Pain, Mild (Pain Scale 1-3) Amiodarone HCl 200 mg 07/04/21 09:00 07/22/21 07:51 Amiodarone Hcl 200 Mg Tablet PO 200 mg DAILY [facility] Administration Carvedilol 6.25 mg 07/03/21 21:00 07/22/21 07:51 Carvedilol 6.25 Mg Tablet PO 6.25 mg BID [facility] Administration Protocol Dextrose 25 gm 07/03/21 16:18 Dextrose 50 % 25 Gm/50 Ml Vial IVPUSH Q15M PRN per Hypoglycemia Standing Ord. Protocol Gemfibrozil 600 mg 07/04/21 07:30 07/22/21 07:51 Gemfibrozil 600 Mg Tablet PO 600 mg BIDAC [facility] Administration Glucose 15 gm 07/03/21 16:18 Glucose Gel 15 Gm Gel..Gram. PO Q15M PRN per Hypoglycemia Standing Ord. Protocol Hydromorphone HCl 0.5 mg 07/12/21 17:02 07/22/21 13:03 Hydromorphone Hcl 0.5 Mg/0.5 Ml Syringe IVPUSH 0.5 mg Q3H PRN Administration Pain, Severe (Pain Scale 7-10) Protocol Promethazine HCl 12.5 mg/ 50.5 mls @ 202 mls/hr 07/05/21 10:28 07/22/21 12:56 Sodium Chloride IV Infused Q4H PRN Infusion nausea Levofloxacin 500 mg in 100 mls @ 100 mls/hr 07/19/21 06:15 07/22/21 05:50 Levaquin IV Infused Q24H [facility] Infusion Metronidazole 500 mg in 100 mls @ 100 mls/hr 07/19/21 06:15 07/22/21 14:45 Flagyl IV 100 mls/hr Q8H [facility] Administration Insulin Human Lispro 0 unit 07/05/21 16:30 07/22/21 11:59 Insulin Lispro 100 Unit/Ml 3 Ml Vial SUBCUT Not Given QIDACHS [facility] Protocol Loperamide HCl 2 mg 07/08/21 07:29 07/11/21 10:35 Loperamide Hcl Oral Liquid 2 Mg/15 Ml Liquid PO 2 mg Q6H PRN Administration diarrhea Magnesium Hydroxide 30 ml 07/17/21 12:45 Milk Of Magnesia 30 Ml Oral.Susp PO DAILY PRN Constipation Nystatin 1 appl 07/14/21 09:00 07/22/21 07:53 Nystatin Cream 15 Gm Tube TOPICAL 1 appl BID [facility] Administration Protocol Omeprazole 20 mg 07/03/21 16:30 07/22/21 04:50 Omeprazole 20 Mg Capsule.Dr PO 20 mg BID@0630,1630 [facility] Administration Ondansetron HCl 4 mg 07/03/21 14:18 07/05/21 03:37 Ondansetron Hcl 4 Mg/2 Ml Vial IVPUSH 4 mg Q6H PRN Administration Nausea and Vomiting Pharmacy Consult 1 each 07/03/21 14:18 Consult Rx Perform Med Rec MISCELLANE ONCE PRN Consult order Rivaroxaban 20 mg 07/04/21 17:00 07/21/21 15:49 Rivaroxaban 20 Mg Tablet PO 20 mg DAILY@1700 [facility] Administration Sodium Chloride 3 ml 07/03/21 16:00 07/22/21 07:51 0.9 % Sodium Chloride Flush 3 Ml Syringe IVFLUSH 3 ml QSHIFT [facility] Administration Spironolactone 25 mg 07/04/21 09:00 07/22/21 07:51 Spironolactone 25 Mg Tablet PO 25 mg DAILY [facility] Administration Protocol Trazodone HCl 50 mg 07/03/21 21:00 07/21/21 19:27 Trazodone Hcl 50 Mg Tablet PO 50 mg BEDTIME [facility] Administration Zolpidem Tartrate 10 mg 07/19/21 08:05 07/20/21 20:09 Zolpidem Tartrate 5 Mg Tablet PO 10 mg BEDTIME PRN Administration Insomnia Time Spent With Patient Time: Total time spent is greater than 50% in coordination of care (as documented) at patient's floor/unit and/or counseling patient: Time with patient: 15 - 24 minutes Quality Stroke Does the patient have a stroke diagnosis?: No VTE Prior VTE?: No VTE Risk Level:: Surgical - moderate VTE Device Contraindication: N/A - Device Ordered VTE Drug Contraindication: N/A - Med Ordered
[2021-07-22] MEDS: Rivaroxaban 20 MG TABLET PO (16:10)
[2021-07-22 16:45] LABS: Glucose, Whole Blood 160 mg/dL (60-115)
[2021-07-22] MEDS: Insulin Lispro 100 UNIT/ML 3 ML VIAL SUBCUT (17:07)
[2021-07-22 21:11] LABS: Glucose, Whole Blood 105 mg/dL (60-115)
[2021-07-22] MEDS: Zolpidem Tartrate 5 MG TABLET 10 MG PO (21:13)
[2021-07-22] MEDS: traZODone HCL 50 MG TABLET PO (21:14)
[2021-07-23] VITALS (12 sets, daily range): BP systolic 118–144; BP diastolic 60–75; PULSE 77–89; RESP 16–19; TEMP 35.8–36.6; O2SAT 92–96
[2021-07-23] MEDS: HYDROmorphone HCl 0.5 MG/0.5 ML SYRINGE IVPUSH ×6 (02:34→22:05)
[2021-07-23] MEDS: Omeprazole 20 MG CAPSULE.DR PO ×2 (05:16→16:31)
[2021-07-23] MEDS: metroNIDAZOLE/NS 500 MG/100 ML PIGGYBACK 100 MG IV ×3 (05:17→22:06)
[2021-07-23] MEDS: levoFLOXacin/D5W 500 MG/100 ML PIGGYBACK 100 MG IV (06:20)
[2021-07-23 07:30] LABS: Glucose, Whole Blood 109 mg/dL (60-115)
[2021-07-23] MEDS: 0.9 % Sodium Chloride Flush 3 ML SYRINGE IVFLUSH ×3 (07:43→22:06)
[2021-07-23] MEDS: Amiodarone HCL 200 MG TABLET PO (07:47)
[2021-07-23] MEDS: gemfibroziL 600 MG TABLET PO ×2 (07:47→16:31)
[2021-07-23] MEDS: carvediloL 6.25 MG TABLET PO ×2 (07:47→20:17)
[2021-07-23] MEDS: Nystatin Cream 15 GM TUBE 1 APPL TOPICAL ×2 (07:47→20:17)
[2021-07-23] MEDS: Spironolactone 25 MG TABLET PO (07:47)
[2021-07-23 11:37] LABS: Glucose, Whole Blood 114 mg/dL (60-115)
--- NOTE | 2021-07-23 11:45 | MHC.CLN ---
F/U INTAKE AT MEALS VARIABLE WITH MANY MEALS 50-100%. NO NEW NUTRITION INTERVENTIONS. CONTINUE TO FOLLOW.
--- NOTE | 2021-07-23 12:14 | P.PNGS_ITS ---
Subjective Subjective Date of Service: 07/23/21 Interval history: Not feeling that great this morning, feeling tired with soreness in the right lower quadrant. Denies fever or chills. Eating approximately half of his meal. Physical Exam 2 Vital Signs: Vital Signs: Last Vital Signs Temp 96.8 F 07/23/21 11:45 Pulse 81 07/23/21 11:45 Resp 18 07/23/21 11:45 BP 126/75 07/23/21 11:45 Pulse Ox 95 07/23/21 11:45 Body Mass Index 24.0 Const: General: cooperative, alert and awake Orientation/consciousness: patient oriented x3 Limitations: no limitations HENMT: Head: Yes normocephalic and Yes atraumatic Ears: hearing grossly normal bilaterally Resp: Effort & Inspection: normal respiratory effort GI: Abdomen image: 1. Sinus tract packed with iodoform gauze 2. Sinus tract packed with iodoform gauze 3. Subcutaneous edema palpable in pannus right lower quadrant no erythema noted in skin. Skin: Other: As noted above in abdominal examination Neuro: General: patient oriented x3 Extrem: Other: Left BKA, right transmetatarsal amputation Procedures Date of Service Date of Service: 07/23/21 Progress Note: A&P Assessment and plan (1) Abdominal wall abscess: Status: Acute Assessment and Plan: Continue discharge from the abdominal incisions which now is creamy yellow from both incisions. Wounds were repacked today and dry sterile dressings applied. Continue local wound care and IV antibiotics. Fall Risk Details Current Medications: Current Medications Generic Name Dose Route Start Last Admin Trade Name Freq PRN Reason Stop Dose Admin Acetaminophen 650 mg 07/03/21 14:18 Acetaminophen 325 Mg Tablet PO Q6H PRN Pain, Mild (Pain Scale 1-3) Amiodarone HCl 200 mg 07/04/21 09:00 07/23/21 07:47 Amiodarone Hcl 200 Mg Tablet PO 200 mg DAILY [facility] Administration Carvedilol 6.25 mg 07/03/21 21:00 07/23/21 07:47 Carvedilol 6.25 Mg Tablet PO 6.25 mg BID [facility] Administration Protocol Dextrose 25 gm 07/03/21 16:18 Dextrose 50 % 25 Gm/50 Ml Vial IVPUSH Q15M PRN per Hypoglycemia Standing Ord. Protocol Gemfibrozil 600 mg 07/04/21 07:30 07/23/21 07:47 Gemfibrozil 600 Mg Tablet PO 600 mg BIDAC [facility] Administration Glucose 15 gm 07/03/21 16:18 Glucose Gel 15 Gm Gel..Gram. PO Q15M PRN per Hypoglycemia Standing Ord. Protocol Hydromorphone HCl 0.5 mg 07/12/21 17:02 07/23/21 10:37 Hydromorphone Hcl 0.5 Mg/0.5 Ml Syringe IVPUSH 0.5 mg Q3H PRN Administration Pain, Severe (Pain Scale 7-10) Protocol Promethazine HCl 12.5 mg/ 50.5 mls @ 202 mls/hr 07/05/21 10:28 07/22/21 12:56 Sodium Chloride IV Infused Q4H PRN Infusion nausea Levofloxacin 500 mg in 100 mls @ 100 mls/hr 07/19/21 06:15 07/23/21 07:40 Levaquin IV Infused Q24H [facility] Infusion Metronidazole 500 mg in 100 mls @ 100 mls/hr 07/19/21 06:15 07/23/21 06:25 Flagyl IV Infused Q8H [facility] Infusion Insulin Human Lispro 0 unit 07/05/21 16:30 07/23/21 11:40 Insulin Lispro 100 Unit/Ml 3 Ml Vial SUBCUT Not Given QIDACHS [facility] Protocol Loperamide HCl 2 mg 07/08/21 07:29 07/11/21 10:35 Loperamide Hcl Oral Liquid 2 Mg/15 Ml Liquid PO 2 mg Q6H PRN Administration diarrhea Magnesium Hydroxide 30 ml 07/17/21 12:45 Milk Of Magnesia 30 Ml Oral.Susp PO DAILY PRN Constipation Nystatin 1 appl 07/14/21 09:00 07/23/21 07:47 Nystatin Cream 15 Gm Tube TOPICAL 1 appl BID [facility] Administration Protocol Omeprazole 20 mg 07/03/21 16:30 07/23/21 05:16 Omeprazole 20 Mg Capsule. PO 20 mg BID@0630,1630 [facility] Administration Ondansetron HCl 4 mg 07/03/21 14:18 07/05/21 03:37 Ondansetron Hcl 4 Mg/2 Ml Vial IVPUSH 4 mg Q6H PRN Administration Nausea and Vomiting Pharmacy Consult 1 each 07/03/21 14:18 Consult Rx Perform Med Rec MISCELLANE ONCE PRN Consult order Rivaroxaban 20 mg 07/04/21 17:00 07/22/21 16:10 Rivaroxaban 20 Mg Tablet PO 20 mg DAILY@1700 [facility] Administration Sodium Chloride 3 ml 07/03/21 16:00 07/23/21 07:43 0.9 % Sodium Chloride Flush 3 Ml Syringe IVFLUSH 3 ml QSHIFT [facility] Administration Spironolactone 25 mg 07/04/21 09:00 07/23/21 07:47 Spironolactone 25 Mg Tablet PO 25 mg DAILY [facility] Administration Protocol Trazodone HCl 50 mg 07/03/21 21:00 07/22/21 21:14 Trazodone Hcl 50 Mg Tablet PO 50 mg BEDTIME [facility] Administration Zolpidem Tartrate 10 mg 07/19/21 08:05 07/22/21 21:13 Zolpidem Tartrate 5 Mg Tablet PO 10 mg BEDTIME PRN Administration Insomnia Time Spent With Patient Time: Total time spent is greater than 50% in coordination of care (as documented) at patient's floor/unit and/or counseling patient: Time with patient: 15 - 24 minutes Quality Stroke Does the patient have a stroke diagnosis?: No VTE Prior VTE?: No VTE Risk Level:: Surgical - moderate VTE Device Contraindication: N/A - Device Ordered VTE Drug Contraindication: N/A - Med Ordered
[2021-07-23 16:12] LABS: Glucose, Whole Blood 127 mg/dL (60-115)
[2021-07-23] MEDS: Rivaroxaban 20 MG TABLET PO (16:31)
[2021-07-23 19:59] LABS: Glucose, Whole Blood 144 mg/dL (60-115)
[2021-07-23] MEDS: traZODone HCL 50 MG TABLET PO (22:06)
[2021-07-23] MEDS: Zolpidem Tartrate 5 MG TABLET 10 MG PO (22:06)
[2021-07-24] VITALS (11 sets, daily range): BP systolic 112–143; BP diastolic 65–73; PULSE 80–94; RESP 16–20; TEMP 36.4–36.7; O2SAT 91–95
[2021-07-24] MEDS: HYDROmorphone HCl 0.5 MG/0.5 ML SYRINGE IVPUSH ×5 (02:47→20:52)
[2021-07-24] MEDS: metroNIDAZOLE/NS 500 MG/100 ML PIGGYBACK 100 MG IV ×3 (05:15→21:04)
[2021-07-24] MEDS: Omeprazole 20 MG CAPSULE.DR PO ×2 (06:19→17:00)
[2021-07-24] MEDS: levoFLOXacin/D5W 500 MG/100 ML PIGGYBACK 100 MG IV (06:19)
--- NOTE | 2021-07-24 07:55 | PM.PNGS ---
Subjective Subjective Date of Service: 07/24/21 Interval history: Denzel feels a little better today; slept well. He denies nausea or vomiting. Pain is present but better. Physical Exam Vital Signs: Vital Signs: Last Vital Signs Temp 97.6 F 07/24/21 07:36 Pulse 83 07/24/21 07:36 Resp 18 07/24/21 07:36 BP 143/67 H 07/24/21 07:36 Pulse Ox 93 07/24/21 07:36 Body Mass Index 24.0 Const: General: no acute distress Orientation/consciousness: patient oriented x3 Limitations: no limitations Resp: Other: breathing comfortably on room air, no respiratory distress GI: Other: decreased edema in the right lower quadrant. Drainage continues from both sites, no erythema, mostly bloody discharge from the flank wound. Princess advanced an DSD applied. Skin: Other: warm and dry; normal color Neuro: General: patient oriented x3 Procedures Date of Service Date of Service: 07/24/21 Progress Note: A&P Assessment and plan (1) Abdominal wall abscess: Status: Acute Assessment and Plan: Wounds appear improved this morning, no erythema noted and decreased edema in the right lower quadrant. Dressings changed and princess advanced. Continue local wound care and IV antibiotics. Recheck labs in AM. Discussed sitting up with legs dangling off the side of bed when eating. He is willing to do this but reports that his bed will alarm if he moves in bed. Fall Risk Details Current Medications: Current Medications Generic Name Dose Route Start Last Admin Trade Name Freq PRN Reason Stop Dose Admin Acetaminophen 650 mg 07/03/21 14:18 Acetaminophen 325 Mg Tablet PO Q6H PRN Pain, Mild (Pain Scale 1-3) Amiodarone HCl 200 mg 07/04/21 09:00 07/23/21 07:47 Amiodarone Hcl 200 Mg Tablet PO 200 mg DAILY K[facility]CH[facility] Administration Carvedilol 6.25 mg 07/03/21 21:00 07/23/21 20:17 Carvedilol 6.25 Mg Tablet PO 6.25 mg BID K[facility] Administration Protocol Dextrose 25 gm 07/03/21 16:18 Dextrose 50 % 25 Gm/50 Ml Vial IVPUSH Q15M PRN per Hypoglycemia Standing Ord. Protocol Gemfibrozil 600 mg 07/04/21 07:30 07/23/21 16:31 Gemfibrozil 600 Mg Tablet PO 600 mg BIDAC [facility] Administration Glucose 15 gm 07/03/21 16:18 Glucose Gel 15 Gm Gel..Gram. PO Q15M PRN per Hypoglycemia Standing Ord. Protocol Hydromorphone HCl 0.5 mg 07/12/21 17:02 07/24/21 06:19 Hydromorphone Hcl 0.5 Mg/0.5 Ml Syringe IVPUSH 0.5 mg Q3H PRN Administration Pain, Severe (Pain Scale 7-10) Protocol Promethazine HCl 12.5 mg/ 50.5 mls @ 202 mls/hr 07/05/21 10:28 07/23/21 16:56 Sodium Chloride IV Infused Q4H PRN Infusion nausea Levofloxacin 500 mg in 100 mls @ 100 mls/hr 07/19/21 06:15 07/24/21 07:37 Levaquin IV Infused Q24H [facility] Infusion Metronidazole 500 mg in 100 mls @ 100 mls/hr 07/19/21 06:15 07/24/21 06:29 Flagyl IV Infused Q8H [facility] Infusion Insulin Human Lispro 0 unit 07/05/21 16:30 07/23/21 20:15 Insulin Lispro 100 Unit/Ml 3 Ml Vial SUBCUT Not Given QIDACHS [facility] Protocol Loperamide HCl 2 mg 07/08/21 07:29 07/11/21 10:35 Loperamide Hcl Oral Liquid 2 Mg/15 Ml Liquid PO 2 mg Q6H PRN Administration diarrhea Magnesium Hydroxide 30 ml 07/17/21 12:45 Milk Of Magnesia 30 Ml Oral.Susp PO DAILY PRN Constipation Nystatin 1 appl 07/14/21 09:00 07/23/21 20:17 Nystatin Cream 15 Gm Tube TOPICAL 1 appl BID KANCHAN Administration Protocol Omeprazole 20 mg 07/03/21 16:30 07/24/21 06:19 Omeprazole 20 Mg Capsule. PO 20 mg BID@0630,1630 [facility] Administration Ondansetron HCl 4 mg 07/03/21 14:18 07/05/21 03:37 Ondansetron Hcl 4 Mg/2 Ml Vial IVPUSH 4 mg Q6H PRN Administration Nausea and Vomiting Pharmacy Consult 1 each 07/03/21 14:18 Consult Rx Perform Med Rec MISCELLANE ONCE PRN Consult order Rivaroxaban 20 mg 07/04/21 17:00 07/23/21 16:31 Rivaroxaban 20 Mg Tablet PO 20 mg DAILY@1700 [facility] Administration Sodium Chloride 3 ml 07/03/21 16:00 07/23/21 22:06 0.9 % Sodium Chloride Flush 3 Ml Syringe IVFLUSH 3 ml QSHIFT [facility] Administration Spironolactone 25 mg 07/04/21 09:00 07/23/21 07:47 Spironolactone 25 Mg Tablet PO 25 mg DAILY [facility] Administration Protocol Trazodone HCl 50 mg 07/03/21 21:00 07/23/21 22:06 Trazodone Hcl 50 Mg Tablet PO 50 mg BEDTIME [facility] Administration Zolpidem Tartrate 10 mg 07/19/21 08:05 07/23/21 22:06 Zolpidem Tartrate 5 Mg Tablet PO 10 mg BEDTIME PRN Administration Insomnia Time Spent With Patient Time: Total time spent is greater than 50% in coordination of care (as documented) at patient's floor/unit and/or counseling patient: Time with patient: 15 - 24 minutes Quality Stroke Does the patient have a stroke diagnosis?: No VTE Prior VTE?: No VTE Risk Level:: Surgical - moderate VTE Device Contraindication: N/A - Device Ordered VTE Drug Contraindication: N/A - Med Ordered
[2021-07-24 08:01] LABS: Glucose, Whole Blood 141 mg/dL (60-115)
[2021-07-24] MEDS: gemfibroziL 600 MG TABLET PO ×2 (08:02→17:00)
[2021-07-24] MEDS: 0.9 % Sodium Chloride Flush 3 ML SYRINGE IVFLUSH ×2 (08:03→15:39)
[2021-07-24] MEDS: Amiodarone HCL 200 MG TABLET PO (08:06)
[2021-07-24] MEDS: carvediloL 6.25 MG TABLET PO ×2 (08:06→21:00)
[2021-07-24] MEDS: Spironolactone 25 MG TABLET PO (08:07)
[2021-07-24] MEDS: Nystatin Cream 15 GM TUBE 1 APPL TOPICAL ×2 (08:08→21:01)
[2021-07-24 11:51] LABS: Glucose, Whole Blood 111 mg/dL (60-115)
[2021-07-24 16:31] LABS: Glucose, Whole Blood 129 mg/dL (60-115)
[2021-07-24] MEDS: Rivaroxaban 20 MG TABLET PO (17:00)
[2021-07-24 20:23] LABS: Glucose, Whole Blood 141 mg/dL (60-115)
[2021-07-24] MEDS: traZODone HCL 50 MG TABLET PO (21:00)
[2021-07-24] MEDS: Zolpidem Tartrate 5 MG TABLET 10 MG PO (21:03)
[2021-07-25] VITALS (10 sets, daily range): BP systolic 120–149; BP diastolic 69–91; PULSE 70–111; RESP 14–19; TEMP 36.1–37.3; O2SAT 90–99
[2021-07-25] MEDS: 0.9 % Sodium Chloride Flush 3 ML SYRINGE IVFLUSH ×4 (00:19→21:08)
[2021-07-25] MEDS: HYDROmorphone HCl 0.5 MG/0.5 ML SYRINGE IVPUSH ×6 (00:19→20:59)
[2021-07-25] MEDS: Omeprazole 20 MG CAPSULE.DR PO ×2 (05:26→16:37)
[2021-07-25] MEDS: metroNIDAZOLE/NS 500 MG/100 ML PIGGYBACK 100 MG IV ×3 (05:26→20:58)
[2021-07-25] MEDS: levoFLOXacin/D5W 500 MG/100 ML PIGGYBACK 100 MG IV (05:26)
[2021-07-25 05:42] LABS: MANUAL DIFF FLAG NO
[2021-07-25 05:46] LABS: Basophils Percent Auto 0.3 % (0-2); Eosinophils Absolute Auto 0.4 X10*3/uL (0.0-0.4); Eosinophils Percent Auto 3.9 % (0-4); Hematocrit 34.5 % (42-52); Hemoglobin 10.8 g/dl (14.0-18.0); Imm Gran Abs Auto 0.04 X10*3/uL (0.00-0.03); Imm Gran Pct Auto 0.4 % (0.0-0.4); Lymphocytes Absolute Auto 0.8 X10*3/uL (1.2-4.9); Lymphocytes Percent Auto 7.8 % (20-40); Mean Corpuscular HGB Conc 31.3 g/dl (31.0-36.0); Mean Corpuscular Volume 92.5 fL (80-98); Mean Platelet Volume 11.7 fL (9.4-12.4); Monocytes Absolute Auto 0.6 X10*3/uL (0.1-1.2); Monocytes Percent Auto 5.5 % (2-11); Neutrophils Absolute Auto 8.9 X10*3/uL (2.0-8.3); Neutrophils Percent Auto 82.1 % (45-73); Platelet Count 206 X10*3/uL (160-400); Red Blood Count 3.73 X10*6/uL (4.60-5.80); Red Cell Distribution Width 16.2 % (11.0-16.0); White Blood Count 10.8 X10*3/uL (4.8-10.8)
[2021-07-25 06:23] LABS: Anion Gap 10 (12-20); Blood Urea Nitrogen 8 mg/dL (9-16); Calcium 8.4 mg/dL (8.4-10.2); Carbon Dioxide 26 mmol/L (22-29); Chloride 105 mmol/L (96-108); Estimated Glomerular Filt Rate > 60; Glucose Random 130 mg/dL (60-115); Potassium 4.3 mmol/L (3.3-5.1); Sodium 137 mmol/L (135-145)
--- NOTE | 2021-07-25 08:04 | P.PNGS_ITS ---
Subjective Subjective Date of Service: 07/25/21 Interval history: No new complaints. He is planning on getting out of bed today with nurse's help. Has a little bit of nausea but no vomiting. Physical Exam Vital Signs: Vital Signs: Last Vital Signs Temp 97.0 F 07/25/21 07:27 Pulse 91 07/25/21 07:27 Resp 18 07/25/21 07:27 BP 128/73 07/25/21 07:27 Pulse Ox 95 07/25/21 07:27 Body Mass Index 24.0 GI: Other: Abdomen is softer with no erythema in the skin. Small amount of purulence discharge from the right lower quadrant incision, bloody discharge from the right flank wound. Clean dressings applied. Extrem: Other: Left BKA, right transmetatarsal amputation Procedures Date of Service Date of Service: 07/25/21 Progress Note: A&P Assessment and plan (1) Abdominal wall abscess: Status: Acute Assessment and Plan: Overall patient is doing well with decreasing discharge from his abdominal incisions. There is no skin erythema. Patient is slow to mobilize however will tried a ambulate later today. Continue antibiotics. Anticipate discharge early next week. Will probably repeat CT prior to discharge to assure no hidden abscess. Fall Risk Details Current Medications: Current Medications Generic Name Dose Route Start Last Admin Trade Name Freq PRN Reason Stop Dose Admin Acetaminophen 650 mg 07/03/21 14:18 Acetaminophen 325 Mg Tablet PO Q6H PRN Pain, Mild (Pain Scale 1-3) Amiodarone HCl 200 mg 07/04/21 09:00 07/24/21 08:06 Amiodarone Hcl 200 Mg Tablet PO 200 mg DAILY [facility] Administration Carvedilol 6.25 mg 07/03/21 21:00 07/24/21 21:00 Carvedilol 6.25 Mg Tablet PO 6.25 mg BID [facility] Administration Protocol Dextrose 25 gm 07/03/21 16:18 Dextrose 50 % 25 Gm/50 Ml Vial IVPUSH Q15M PRN per Hypoglycemia Standing Ord. Protocol Gemfibrozil 600 mg 07/04/21 07:30 07/24/21 17:00 Gemfibrozil 600 Mg Tablet PO 600 mg BIDAC [facility] Administration Glucose 15 gm 07/03/21 16:18 Glucose Gel 15 Gm Gel..Gram. PO Q15M PRN per Hypoglycemia Standing Ord. Protocol Hydromorphone HCl 0.5 mg 07/12/21 17:02 07/25/21 03:52 Hydromorphone Hcl 0.5 Mg/0.5 Ml Syringe IVPUSH 0.5 mg Q3H PRN Administration Pain, Severe (Pain Scale 7-10) Protocol Promethazine HCl 12.5 mg/ 50.5 mls @ 202 mls/hr 07/05/21 10:28 07/24/21 14:35 Sodium Chloride IV Infused Q4H PRN Infusion nausea Levofloxacin 500 mg in 100 mls @ 100 mls/hr 07/19/21 06:15 07/25/21 06:29 Levaquin IV Infused Q24H [facility] Infusion Metronidazole 500 mg in 100 mls @ 100 mls/hr 07/19/21 06:15 07/25/21 06:29 Flagyl IV Infused Q8H [facility] Infusion Insulin Human Lispro 0 unit 07/05/21 16:30 07/24/21 20:57 Insulin Lispro 100 Unit/Ml 3 Ml Vial SUBCUT Not Given QIDACHS [facility] Protocol Loperamide HCl 2 mg 07/08/21 07:29 07/11/21 10:35 Loperamide Hcl Oral Liquid 2 Mg/15 Ml Liquid PO 2 mg Q6H PRN Administration diarrhea Magnesium Hydroxide 30 ml 07/17/21 12:45 Milk Of Magnesia 30 Ml Oral.Susp PO DAILY PRN Constipation Nystatin 1 appl 07/14/21 09:00 07/24/21 21:01 Nystatin Cream 15 Gm Tube TOPICAL 1 appl BID [facility] Administration Protocol Omeprazole 20 mg 07/03/21 16:30 07/25/21 05:26 Omeprazole 20 Mg Capsule.Dr PO 20 mg BID@0630,1630 [facility] Administration Ondansetron HCl 4 mg 07/03/21 14:18 07/05/21 03:37 Ondansetron Hcl 4 Mg/2 Ml Vial IVPUSH 4 mg Q6H PRN Administration Nausea and Vomiting Pharmacy Consult 1 each 07/03/21 14:18 Consult Rx Perform Med Rec MISCELLANE ONCE PRN Consult order Rivaroxaban 20 mg 07/04/21 17:00 07/24/21 17:00 Rivaroxaban 20 Mg Tablet PO 20 mg DAILY@1700 [facility] Administration Sodium Chloride 3 ml 07/03/21 16:00 07/25/21 00:19 0.9 % Sodium Chloride Flush 3 Ml Syringe IVFLUSH 3 ml QSHIFT [facility] Administration Spironolactone 25 mg 07/04/21 09:00 07/24/21 08:07 Spironolactone 25 Mg Tablet PO 25 mg DAILY [facility] Administration Protocol Trazodone HCl 50 mg 07/03/21 21:00 07/24/21 21:00 Trazodone Hcl 50 Mg Tablet PO 50 mg BEDTIME [facility] Administration Zolpidem Tartrate 10 mg 07/19/21 08:05 07/24/21 21:03 Zolpidem Tartrate 5 Mg Tablet PO 10 mg BEDTIME PRN Administration Insomnia Time Spent With Patient Time: Total time spent is greater than 50% in coordination of care (as documented) at patient's floor/unit and/or counseling patient: Time with patient: 15 - 24 minutes Quality Stroke Does the patient have a stroke diagnosis?: No VTE Prior VTE?: No VTE Risk Level:: Surgical - moderate VTE Device Contraindication: N/A - Device Ordered VTE Drug Contraindication: N/A - Med Ordered
[2021-07-25 08:08] LABS: Glucose, Whole Blood 125 mg/dL (60-115)
[2021-07-25] MEDS: gemfibroziL 600 MG TABLET PO ×2 (09:42→16:37)
[2021-07-25] MEDS: Spironolactone 25 MG TABLET PO (09:42)
[2021-07-25] MEDS: carvediloL 6.25 MG TABLET PO ×2 (09:42→20:58)
[2021-07-25] MEDS: Amiodarone HCL 200 MG TABLET PO (09:42)
[2021-07-25] MEDS: Nystatin Cream 15 GM TUBE 1 APPL TOPICAL (09:42)
[2021-07-25 11:55] LABS: Glucose, Whole Blood 149 mg/dL (60-115)
--- NOTE | 2021-07-25 13:16 | MHC.CLN ---
F/U STAGE II WOUNDS TO LEFT LEG AND LOWER BACK. STAGE I WOUND TO BUTTOCKS. INTAKE APPEARS TO BE IMPROVING WITH MANY MEALS 100%. REPORTS NAUSEA WITHOUT VOMITING. CONTINUE TO FOLLOW.
[2021-07-25 16:18] LABS: Glucose, Whole Blood 140 mg/dL (60-115)
[2021-07-25] MEDS: Rivaroxaban 20 MG TABLET PO (16:37)
[2021-07-25 20:24] LABS: Glucose, Whole Blood 179 mg/dL (60-115)
[2021-07-25] MEDS: Insulin Lispro 100 UNIT/ML 3 ML VIAL SUBCUT (20:58)
[2021-07-25] MEDS: traZODone HCL 50 MG TABLET PO (20:58)
[2021-07-25] MEDS: Zolpidem Tartrate 5 MG TABLET 10 MG PO (21:04)
[2021-07-26] MEDS: HYDROmorphone HCl 0.5 MG/0.5 ML SYRINGE IVPUSH ×7 (00:16→22:46)
[2021-07-26] MEDS: 0.9 % Sodium Chloride Flush 3 ML SYRINGE IVFLUSH ×3 (00:18→15:44)
[2021-07-26 04:00] VITALS: RESP 20
[2021-07-26] MEDS: metroNIDAZOLE/NS 500 MG/100 ML PIGGYBACK 100 MG IV ×3 (06:13→21:43)
[2021-07-26] MEDS: Omeprazole 20 MG CAPSULE.DR PO ×2 (06:14→16:47)
[2021-07-26 07:20] LABS: Glucose, Whole Blood 105 mg/dL (60-115)
[2021-07-26] MEDS: levoFLOXacin/D5W 500 MG/100 ML PIGGYBACK 100 MG IV (07:46)
[2021-07-26] MEDS: gemfibroziL 600 MG TABLET PO ×2 (07:47→16:47)
[2021-07-26] MEDS: carvediloL 6.25 MG TABLET PO ×2 (07:47→21:43)
[2021-07-26] MEDS: Spironolactone 25 MG TABLET PO (07:47)
[2021-07-26] MEDS: Amiodarone HCL 200 MG TABLET PO (07:47)
[2021-07-26] MEDS: Nystatin Cream 15 GM TUBE 1 APPL TOPICAL ×2 (07:53→21:44)
[2021-07-26 08:00] VITALS: BP 136/70; PULSE 79; RESP 18; TEMP 36.2; O2SAT 95
[2021-07-26 11:00] LABS: Glucose, Whole Blood 101 mg/dL (60-115)
--- NOTE | 2021-07-26 11:23 | PM.PNGS ---
Subjective Subjective Date of Service: 07/26/21 Interval history: No new complaints. Not much appetite but tolerating diet. Reports ongoing drainage from wounds. Physical Exam Vital Signs: Vital Signs: Last Vital Signs Temp 97.1 F 07/26/21 08:00 Pulse 79 07/26/21 08:00 Resp 18 07/26/21 08:00 BP 136/70 07/26/21 08:00 Pulse Ox 95 07/26/21 08:00 Body Mass Index 24.0 Const: General: cooperative, no acute distress and alert Resp: Effort & Inspection: normal respiratory effort Auscultation: clear to auscultation bilaterally Cardio: Rate: regular rate Rhythm: regular rhythm GI: Other: Soft, nontender, nondistended. Open wound along old incision right lower quadrant has sero purulent-appearing discharge, small amount. Right flank wound drainage serosanguineous. No surrounding erythema. Skin: Other: Normal color, warm and dry Procedures Date of Service Date of Service: 07/26/21 Progress Note: A&P Assessment and plan (1) Abdominal wall abscess: Status: Acute (2) Diabetes mellitus: Status: Acute Assessment and Plan: Improving slowly following incision and drainage of abdominal wall abscesses. Dressing change, wounds repacked. Not moving around much. Discussed ambulation. He has his new prosthesis with a better fit and plans to try to get up and around later today. Says that he feels strong enough that he will be able to be discharged home rather than to rehab. Continue antibiotics. Fall Risk Details Current Medications: Current Medications Generic Name Dose Route Start Last Admin Trade Name Freq PRN Reason Stop Dose Admin Acetaminophen 650 mg 07/03/21 14:18 Acetaminophen 325 Mg Tablet PO Q6H PRN Pain, Mild (Pain Scale 1-3) Amiodarone HCl 200 mg 07/04/21 09:00 07/26/21 07:47 Amiodarone Hcl 200 Mg Tablet PO 200 mg DAILY [facility] Administration Carvedilol 6.25 mg 07/03/21 21:00 07/26/21 07:47 Carvedilol 6.25 Mg Tablet PO 6.25 mg BID [facility] Administration Protocol Dextrose 25 gm 07/03/21 16:18 Dextrose 50 % 25 Gm/50 Ml Vial IVPUSH Q15M PRN per Hypoglycemia Standing Ord. Protocol Gemfibrozil 600 mg 07/04/21 07:30 07/26/21 07:47 Gemfibrozil 600 Mg Tablet PO 600 mg BIDAC [facility] Administration Glucose 15 gm 07/03/21 16:18 Glucose Gel 15 Gm Gel..Gram. PO Q15M PRN per Hypoglycemia Standing Ord. Protocol Hydromorphone HCl 0.5 mg 07/12/21 17:02 07/26/21 11:16 Hydromorphone Hcl 0.5 Mg/0.5 Ml Syringe IVPUSH 0.5 mg Q3H PRN Administration Pain, Severe (Pain Scale 7-10) Protocol Promethazine HCl 12.5 mg/ 50.5 mls @ 202 mls/hr 07/05/21 10:28 07/26/21 09:23 Sodium Chloride IV Infused Q4H PRN Infusion nausea Levofloxacin 500 mg in 100 mls @ 100 mls/hr 07/19/21 06:15 07/26/21 08:52 Levaquin IV Infused Q24H [facility] Infusion Metronidazole 500 mg in 100 mls @ 100 mls/hr 07/19/21 06:15 07/26/21 07:38 Flagyl IV Infused Q8H [facility] Infusion Insulin Human Lispro 0 unit 07/05/21 16:30 07/26/21 11:04 Insulin Lispro 100 Unit/Ml 3 Ml Vial SUBCUT Not Given QIDACHS [facility] Protocol Loperamide HCl 2 mg 07/08/21 07:29 07/11/21 10:35 Loperamide Hcl Oral Liquid 2 Mg/15 Ml Liquid PO 2 mg Q6H PRN Administration diarrhea Magnesium Hydroxide 30 ml 07/17/21 12:45 Milk Of Magnesia 30 Ml Oral.Susp PO DAILY PRN Constipation Nystatin 1 appl 07/14/21 09:00 07/26/21 07:53 Nystatin Cream 15 Gm Tube TOPICAL 1 appl BID [facility] Administration Protocol Omeprazole 20 mg 07/03/21 16:30 07/26/21 06:14 Omeprazole 20 Mg Capsule. PO 20 mg BID@0630,1630 [facility] Administration Ondansetron HCl 4 mg 07/03/21 14:18 07/05/21 03:37 Ondansetron Hcl 4 Mg/2 Ml Vial IVPUSH 4 mg Q6H PRN Administration Nausea and Vomiting Pharmacy Consult 1 each 07/03/21 14:18 Consult Rx Perform Med Rec MISCELLANE ONCE PRN Consult order Rivaroxaban 20 mg 07/04/21 17:00 07/25/21 16:37 Rivaroxaban 20 Mg Tablet PO 20 mg DAILY@1700 [facility] Administration Sodium Chloride 3 ml 07/03/21 16:00 07/26/21 07:47 0.9 % Sodium Chloride Flush 3 Ml Syringe IVFLUSH 3 ml QSHIFT [facility] Administration Spironolactone 25 mg 07/04/21 09:00 07/26/21 07:47 Spironolactone 25 Mg Tablet PO 25 mg DAILY [facility] Administration Protocol Trazodone HCl 50 mg 07/03/21 21:00 07/25/21 20:58 Trazodone Hcl 50 Mg Tablet PO 50 mg BEDTIME [facility] Administration Zolpidem Tartrate 10 mg 07/19/21 08:05 07/25/21 21:04 Zolpidem Tartrate 5 Mg Tablet PO 10 mg BEDTIME PRN Administration Insomnia Time Spent With Patient Time: Total time spent is greater than 50% in coordination of care (as documented) at patient's floor/unit and/or counseling patient: Time with patient: 15 - 24 minutes Quality Stroke Does the patient have a stroke diagnosis?: No VTE Prior VTE?: No VTE Risk Level:: Surgical - moderate VTE Device Contraindication: N/A - Device Ordered VTE Drug Contraindication: N/A - Med Ordered
[2021-07-26 12:00] VITALS: BP 136/64; PULSE 82; RESP 18; TEMP 36.4; O2SAT 94
[2021-07-26 15:19] VITALS: BP 124/68; PULSE 85; RESP 18; TEMP 36.4; O2SAT 95
[2021-07-26 16:24] LABS: Glucose, Whole Blood 113 mg/dL (60-115)
[2021-07-26] MEDS: Rivaroxaban 20 MG TABLET PO (16:47)
[2021-07-26 19:28] VITALS: BP 127/71; PULSE 85; RESP 17; TEMP 37.2; O2SAT 91
[2021-07-26 20:14] LABS: Glucose, Whole Blood 119 mg/dL (60-115)
[2021-07-26] MEDS: Zolpidem Tartrate 5 MG TABLET 10 MG PO (21:45)
[2021-07-26] MEDS: traZODone HCL 50 MG TABLET PO (22:44)
[2021-07-27] VITALS (11 sets, daily range): BP systolic 115–141; BP diastolic 60–76; PULSE 76–106; RESP 16–20; TEMP 36.1–37.1; O2SAT 92–99
[2021-07-27] MEDS: 0.9 % Sodium Chloride Flush 3 ML SYRINGE IVFLUSH ×4 (00:35→23:17)
[2021-07-27] MEDS: HYDROmorphone HCl 0.5 MG/0.5 ML SYRINGE IVPUSH ×6 (02:52→21:19)
[2021-07-27] MEDS: levoFLOXacin/D5W 500 MG/100 ML PIGGYBACK 100 MG IV (05:01)
[2021-07-27] MEDS: Omeprazole 20 MG CAPSULE.DR PO ×2 (06:04→17:16)
[2021-07-27] MEDS: metroNIDAZOLE/NS 500 MG/100 ML PIGGYBACK 100 MG IV ×3 (06:05→21:12)
[2021-07-27 07:32] LABS: Glucose, Whole Blood 120 mg/dL (60-115)
[2021-07-27] MEDS: carvediloL 6.25 MG TABLET PO ×2 (09:04→20:41)
[2021-07-27] MEDS: gemfibroziL 600 MG TABLET PO ×2 (09:05→17:16)
[2021-07-27] MEDS: Spironolactone 25 MG TABLET PO (09:05)
[2021-07-27] MEDS: Amiodarone HCL 200 MG TABLET PO (09:05)
--- NOTE | 2021-07-27 11:13 | P.PNGS_ITS ---
Subjective Subjective Date of Service: 07/27/21 Interval history: Feels about the same. Has some right lower quadrant pain primarily associated with movement. Appetite fair. Physical Exam Vital Signs: Vital Signs: Last Vital Signs Temp 97.0 F 07/27/21 07:03 Pulse 81 07/27/21 07:03 Resp 17 07/27/21 07:03 BP 140/70 H 07/27/21 07:03 Pulse Ox 96 07/27/21 07:03 Body Mass Index 24.0 Const: General: cooperative, no acute distress and alert Resp: Effort & Inspection: normal respiratory effort Auscultation: clear to auscultation bilaterally Cardio: Rate: regular rate Rhythm: regular rhythm GI: Other: Nondistended, normal bowel sounds, mild tenderness right lower quadrant. Two small open wounds along the old incision line right lower quadrant and right flank. Wounds are clean. There was moderate drainage on the dressing in the area of the flank wound and a small to moderate amount in the dressing around the right lower quadrant wound. Discharge from the flank wound remains more serosanguineous in appearance and more purulence at right lower quadrant. No surrounding erythema. No palpable masses. 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 Anticipate repeat CT scan in next 24-48 hours. Blood sugar control better. Continue sliding scale insulin, diabetic diet. Out of bed, ambulate as tolerated. Fall Risk Details Current Medications: Current Medications Generic Name Dose Route Start Last Admin Trade Name Freq PRN Reason Stop Dose Admin Acetaminophen 650 mg 07/03/21 14:18 Acetaminophen 325 Mg Tablet PO Q6H PRN Pain, Mild (Pain Scale 1-3) Amiodarone HCl 200 mg 07/04/21 09:00 07/27/21 09:05 Amiodarone Hcl 200 Mg Tablet PO 200 mg DAILY [facility] Administration Carvedilol 6.25 mg 07/03/21 21:00 07/27/21 09:04 Carvedilol 6.25 Mg Tablet PO 6.25 mg BID KANCHAN Administration Protocol Dextrose 25 gm 07/03/21 16:18 Dextrose 50 % 25 Gm/50 Ml Vial IVPUSH Q15M PRN per Hypoglycemia Standing Ord. Protocol Gemfibrozil 600 mg 07/04/21 07:30 07/27/21 09:05 Gemfibrozil 600 Mg Tablet PO 600 mg BIDAC [facility] Administration Glucose 15 gm 07/03/21 16:18 Glucose Gel 15 Gm Gel..Gram. PO Q15M PRN per Hypoglycemia Standing Ord. Protocol Hydromorphone HCl 0.5 mg 07/12/21 17:02 07/27/21 10:33 Hydromorphone Hcl 0.5 Mg/0.5 Ml Syringe IVPUSH 0.5 mg Q3H PRN Administration Pain, Severe (Pain Scale 7-10) Protocol Promethazine HCl 12.5 mg/ 50.5 mls @ 202 mls/hr 07/05/21 10:28 07/26/21 17:23 Sodium Chloride IV Infused Q4H PRN Infusion nausea Levofloxacin 500 mg in 100 mls @ 100 mls/hr 07/19/21 06:15 07/27/21 06:37 Levaquin IV Infused Q24H [facility] Infusion Metronidazole 500 mg in 100 mls @ 100 mls/hr 07/19/21 06:15 07/27/21 07:10 Flagyl IV Infused Q8H [facility] Infusion Insulin Human Lispro 0 unit 07/05/21 16:30 07/27/21 09:04 Insulin Lispro 100 Unit/Ml 3 Ml Vial SUBCUT Not Given QIDACHS [facility] Protocol Loperamide HCl 2 mg 07/08/21 07:29 07/11/21 10:35 Loperamide Hcl Oral Liquid 2 Mg/15 Ml Liquid PO 2 mg Q6H PRN Administration diarrhea Magnesium Hydroxide 30 ml 07/17/21 12:45 Milk Of Magnesia 30 Ml Oral.Susp PO DAILY PRN Constipation Nystatin 1 appl 07/14/21 09:00 07/27/21 10:36 Nystatin Cream 15 Gm Tube TOPICAL Not Given BID [facility] Protocol Omeprazole 20 mg 07/03/21 16:30 07/27/21 06:04 Omeprazole 20 Mg Capsule. PO 20 mg BID@0630,1630 [facility] Administration Ondansetron HCl 4 mg 07/03/21 14:18 07/05/21 03:37 Ondansetron Hcl 4 Mg/2 Ml Vial IVPUSH 4 mg Q6H PRN Administration Nausea and Vomiting Pharmacy Consult 1 each 07/03/21 14:18 Consult Rx Perform Med Rec MISCELLANE ONCE PRN Consult order Rivaroxaban 20 mg 07/04/21 17:00 07/26/21 16:47 Rivaroxaban 20 Mg Tablet PO 20 mg DAILY@1700 [facility] Administration Sodium Chloride 3 ml 07/03/21 16:00 07/27/21 09:05 0.9 % Sodium Chloride Flush 3 Ml Syringe IVFLUSH 3 ml QSHIFT [facility] Administration Spironolactone 25 mg 07/04/21 09:00 07/27/21 09:05 Spironolactone 25 Mg Tablet PO 25 mg DAILY K[facility]CHAN Administration Protocol Trazodone HCl 50 mg 07/03/21 21:00 07/26/21 22:44 Trazodone Hcl 50 Mg Tablet PO 50 mg BEDTIME [facility] Administration Zolpidem Tartrate 10 mg 07/19/21 08:05 07/26/21 21:45 Zolpidem Tartrate 5 Mg Tablet PO 10 mg BEDTIME PRN Administration Insomnia Time Spent With Patient Time: Total time spent is greater than 50% in coordination of care (as documented) at patient's floor/unit and/or counseling patient: Time with patient: 15 - 24 minutes Quality Stroke Does the patient have a stroke diagnosis?: No VTE Prior VTE?: No VTE Risk Level:: Surgical - moderate VTE Device Contraindication: N/A - Device Ordered VTE Drug Contraindication: N/A - Med Ordered
[2021-07-27 11:42] LABS: Glucose, Whole Blood 130 mg/dL (60-115)
[2021-07-27 16:24] LABS: Glucose, Whole Blood 125 mg/dL (60-115)
[2021-07-27] MEDS: Rivaroxaban 20 MG TABLET PO (17:16)
[2021-07-27 20:24] LABS: Glucose, Whole Blood 154 mg/dL (60-115)
[2021-07-27] MEDS: Insulin Lispro 100 UNIT/ML 3 ML VIAL SUBCUT (20:40)
[2021-07-27] MEDS: traZODone HCL 50 MG TABLET PO (20:41)
[2021-07-27] MEDS: Nystatin Cream 15 GM TUBE 1 APPL TOPICAL (20:41)
[2021-07-27] MEDS: Zolpidem Tartrate 5 MG TABLET 10 MG PO (20:43)
[2021-07-28] VITALS (7 sets, daily range): BP systolic 115–131; BP diastolic 65–76; PULSE 76–111; RESP 14–18; TEMP 36–37; O2SAT 92–97
[2021-07-28] MEDS: HYDROmorphone HCl 0.5 MG/0.5 ML SYRINGE IVPUSH ×6 (00:18→20:55)
[2021-07-28] MEDS: Omeprazole 20 MG CAPSULE.DR PO ×2 (05:13→16:53)
[2021-07-28] MEDS: levoFLOXacin/D5W 500 MG/100 ML PIGGYBACK 100 MG IV (05:13)
[2021-07-28] MEDS: metroNIDAZOLE/NS 500 MG/100 ML PIGGYBACK 100 MG IV ×3 (06:37→20:48)
[2021-07-28 07:28] LABS: Glucose, Whole Blood 140 mg/dL (60-115)
[2021-07-28] MEDS: gemfibroziL 600 MG TABLET PO ×2 (09:20→16:53)
[2021-07-28] MEDS: Spironolactone 25 MG TABLET PO (09:21)
[2021-07-28] MEDS: 0.9 % Sodium Chloride Flush 3 ML SYRINGE IVFLUSH ×3 (09:21→20:48)
[2021-07-28] MEDS: Amiodarone HCL 200 MG TABLET PO (09:21)
[2021-07-28] MEDS: carvediloL 6.25 MG TABLET PO ×2 (09:21→20:48)
[2021-07-28] MEDS: Nystatin Cream 15 GM TUBE 1 APPL TOPICAL ×2 (09:22→22:53)
[2021-07-28 11:55] LABS: Glucose, Whole Blood 127 mg/dL (60-115)
--- NOTE | 2021-07-28 12:58 | MHC.CLN ---
F/U STAGE II WOUNDS TO BUTTOCKS AND LOWER BACK. STAGE I WOUND TO LEFT LEG. INTAKE VARIABLE, 0-100%. REPORTS NAUSEA. BROTHER BRINGS IN SOME FOODS AND MUSCLE MILK. OFFERED SUPPLEMENT AGAIN TODAY AND PATIENT DECLINED. CONTINUE TO FOLLOW.
[2021-07-28 16:12] LABS: Glucose, Whole Blood 131 mg/dL (60-115)
[2021-07-28] MEDS: Rivaroxaban 20 MG TABLET PO (16:53)
[2021-07-28 20:15] LABS: Glucose, Whole Blood 142 mg/dL (60-115)
--- NOTE | 2021-07-28 20:45 | P.PNGS_ITS ---
Subjective Subjective Date of Service: 07/28/21 Patient reports: still having pain, diarrhea and nausea Physical Exam Vital Signs: Vital Signs: Last Vital Signs Temp 97.6 F 07/28/21 19:36 Pulse 88 07/28/21 19:36 Resp 18 07/28/21 19:36 BP 131/73 07/28/21 19:36 Pulse Ox 96 07/28/21 19:36 Body Mass Index 24.0 Const: General: no acute distress Orientation/consciousness: patient oriented x3 Resp: Effort & Inspection: normal respiratory effort GI: Other: Dressing changed; decreased output noted from both incisions, no erythema or abdominal wall edema. Princess advanced. Skin: General skin exam: no rashes or lesions noted Neuro: General: patient oriented x3 Extrem: Other: decreased edema Procedures Date of Service Date of Service: 07/28/21 Progress Note: A&P Assessment and plan (1) Abdominal wall abscess: Status: Acute Assessment and Plan: Discharge seems to be improving and no erythema noted. Patient still with nausea this morning; not much appetite today. Continue local wound care and antibiotics, Patient to attempt out of bed today. Fall Risk Details Current Medications: Current Medications Generic Name Dose Route Start Last Admin Trade Name Freq PRN Reason Stop Dose Admin Acetaminophen 650 mg 07/03/21 14:18 Acetaminophen 325 Mg Tablet PO Q6H PRN Pain, Mild (Pain Scale 1-3) Amiodarone HCl 200 mg 07/04/21 09:00 07/28/21 09:21 Amiodarone Hcl 200 Mg Tablet PO 200 mg DAILY KANCHAN Administration Carvedilol 6.25 mg 07/03/21 21:00 07/28/21 09:21 Carvedilol 6.25 Mg Tablet PO 6.25 mg BID KANCHAN Administration Protocol Dextrose 25 gm 07/03/21 16:18 Dextrose 50 % 25 Gm/50 Ml Vial IVPUSH Q15M PRN per Hypoglycemia Standing Ord. Protocol Gemfibrozil 600 mg 07/04/21 07:30 07/28/21 16:53 Gemfibrozil 600 Mg Tablet PO 600 mg BIDAC [facility]CH[facility] Administration Glucose 15 gm 07/03/21 16:18 Glucose Gel 15 Gm Gel..Gram. PO Q15M PRN per Hypoglycemia Standing Ord. Protocol Hydromorphone HCl 0.5 mg 07/12/21 17:02 07/28/21 17:42 Hydromorphone Hcl 0.5 Mg/0.5 Ml Syringe IVPUSH 0.5 mg Q3H PRN Administration Pain, Severe (Pain Scale 7-10) Protocol Promethazine HCl 12.5 mg/ 50.5 mls @ 202 mls/hr 07/05/21 10:28 07/28/21 18:04 Sodium Chloride IV Infused Q4H PRN Infusion nausea Levofloxacin 500 mg in 100 mls @ 100 mls/hr 07/19/21 06:15 07/28/21 06:20 Levaquin IV Infused Q24H [facility] Infusion Metronidazole 500 mg in 100 mls @ 100 mls/hr 07/19/21 06:15 07/28/21 15:57 Flagyl IV Infused Q8H [facility] Infusion Insulin Human Lispro 0 unit 07/05/21 16:30 07/28/21 16:53 Insulin Lispro 100 Unit/Ml 3 Ml Vial SUBCUT Not Given QIDACHS [facility] Protocol Loperamide HCl 2 mg 07/08/21 07:29 07/11/21 10:35 Loperamide Hcl Oral Liquid 2 Mg/15 Ml Liquid PO 2 mg Q6H PRN Administration diarrhea Magnesium Hydroxide 30 ml 07/17/21 12:45 Milk Of Magnesia 30 Ml Oral.Susp PO DAILY PRN Constipation Nystatin 1 appl 07/14/21 09:00 07/28/21 09:22 Nystatin Cream 15 Gm Tube TOPICAL 1 appl BID KANCHAN Administration Protocol Omeprazole 20 mg 07/03/21 16:30 07/28/21 16:53 Omeprazole 20 Mg Capsule.Dr PO 20 mg BID@0630,1630 [facility] Administration Ondansetron HCl 4 mg 07/03/21 14:18 07/05/21 03:37 Ondansetron Hcl 4 Mg/2 Ml Vial IVPUSH 4 mg Q6H PRN Administration Nausea and Vomiting Pharmacy Consult 1 each 07/03/21 14:18 Consult Rx Perform Med Rec MISCELLANE ONCE PRN Consult order Rivaroxaban 20 mg 07/04/21 17:00 07/28/21 16:53 Rivaroxaban 20 Mg Tablet PO 20 mg DAILY@1700 [facility] Administration Sodium Chloride 3 ml 07/03/21 16:00 07/28/21 16:53 0.9 % Sodium Chloride Flush 3 Ml Syringe IVFLUSH 3 ml QSHIFT [facility] Administration Spironolactone 25 mg 07/04/21 09:00 07/28/21 09:21 Spironolactone 25 Mg Tablet PO 25 mg DAILY KANCHAN Administration Protocol Trazodone HCl 50 mg 07/03/21 21:00 07/27/21 20:41 Trazodone Hcl 50 Mg Tablet PO 50 mg BEDTIME [facility] Administration Zolpidem Tartrate 5 mg 07/28/21 10:00 Zolpidem Tartrate 5 Mg Tablet PO BEDTIME PRN Insomnia Time Spent With Patient Time: Total time spent is greater than 50% in coordination of care (as documented) at patient's floor/unit and/or counseling patient: Time with patient: 15 - 24 minutes Quality Stroke Does the patient have a stroke diagnosis?: No VTE Prior VTE?: No VTE Risk Level:: Surgical - moderate VTE Device Contraindication: N/A - Device Ordered VTE Drug Contraindication: N/A - Med Ordered
[2021-07-28] MEDS: Zolpidem Tartrate 5 MG TABLET PO (20:48)
[2021-07-28] MEDS: traZODone HCL 50 MG TABLET PO (20:48)
[2021-07-29] VITALS (7 sets, daily range): BP systolic 117–126; BP diastolic 59–66; PULSE 73–84; RESP 16–18; TEMP 36.1–36.6; O2SAT 92–97
[2021-07-29] MEDS: HYDROmorphone HCl 0.5 MG/0.5 ML SYRINGE IVPUSH ×6 (03:21→21:20)
[2021-07-29] MEDS: levoFLOXacin/D5W 500 MG/100 ML PIGGYBACK 100 MG IV (05:09)
[2021-07-29] MEDS: Omeprazole 20 MG CAPSULE.DR PO ×2 (05:09→17:09)
[2021-07-29] MEDS: metroNIDAZOLE/NS 500 MG/100 ML PIGGYBACK 100 MG IV ×3 (06:13→21:21)
[2021-07-29] MEDS: gemfibroziL 600 MG TABLET PO ×2 (07:20→17:09)
[2021-07-29 08:37] LABS: Glucose, Whole Blood 102 mg/dL (60-115)
[2021-07-29] MEDS: Spironolactone 25 MG TABLET PO (09:03)
[2021-07-29] MEDS: Amiodarone HCL 200 MG TABLET PO (09:03)
[2021-07-29] MEDS: carvediloL 6.25 MG TABLET PO ×2 (09:03→21:20)
[2021-07-29] MEDS: 0.9 % Sodium Chloride Flush 3 ML SYRINGE IVFLUSH ×2 (09:04→17:09)
[2021-07-29] MEDS: Nystatin Cream 15 GM TUBE 1 APPL TOPICAL ×2 (10:40→21:20)
[2021-07-29 11:35] LABS: Glucose, Whole Blood 98 mg/dL (60-115)
--- NOTE | 2021-07-29 16:34 | P.PNGS_ITS ---
Subjective Subjective Date of Service: 07/29/21 Interval history: Reports getting out of bed and sitting up in a chair. He ambulated for short distance. He does have some right lower quadrant abdominal pain. He still has no appetite. Physical Exam Vital Signs: Vital Signs: Last Vital Signs Temp 96.9 F 07/29/21 15:39 Pulse 79 07/29/21 15:39 Resp 16 07/29/21 15:39 BP 126/65 07/29/21 15:39 Pulse Ox 96 07/29/21 15:39 Body Mass Index 24.0 Const: General: no acute distress Orientation/consciousness: patient oriented x3 Limitations: no limitations Resp: Effort & Inspection: normal respiratory effort, no cough and no respiratory distress GI: Other: Soft, nondistended, tender in the right lower quadrant. Skin is warm and dry without erythema. Wounds are draining mainly serosanguineous output from the right lower quadrant wound and mucopurulent discharge from the flank wound. Clean dressings were applied. Skin: Other: As noted in abdomen above otherwise warm and dry. Neuro: General: patient oriented x3 Extrem: Other: Decreased edema, able to wear his prosthesis today. Procedures Date of Service Date of Service: 07/29/21 Progress Note: A&P Assessment and plan (1) Abdominal wall abscess: Status: Acute Assessment and Plan: 61-year-old male patient with a previous history of perforated appendicitis with an abscess with a prolonged postoperative course due to abdominal wall abscess. Overall the patient is improved with decreased drainage from the wounds. Because of the patient's body habitus it is difficult to know if there are any underlying collections remaining. I recommended a repeat CT of the abdomen and pelvis to re-evaluate the status of the previous collections. This will be ordered in the morning tomorrow. Continue antibiotics and local wound care. Continue physical therapy. Fall Risk Details Current Medications: Current Medications Generic Name Dose Route Start Last Admin Trade Name Freq PRN Reason Stop Dose Admin Acetaminophen 650 mg 07/03/21 14:18 Acetaminophen 325 Mg Tablet PO Q6H PRN Pain, Mild (Pain Scale 1-3) Amiodarone HCl 200 mg 07/04/21 09:00 07/29/21 09:03 Amiodarone Hcl 200 Mg Tablet PO 200 mg DAILY KANCHAN Administration Carvedilol 6.25 mg 07/03/21 21:00 07/29/21 09:03 Carvedilol 6.25 Mg Tablet PO 6.25 mg BID KANCHAN Administration Protocol Dextrose 25 gm 07/03/21 16:18 Dextrose 50 % 25 Gm/50 Ml Vial IVPUSH Q15M PRN per Hypoglycemia Standing Ord. Protocol Gemfibrozil 600 mg 07/04/21 07:30 07/29/21 07:20 Gemfibrozil 600 Mg Tablet PO 600 mg BIDAC [facility] Administration Glucose 15 gm 07/03/21 16:18 Glucose Gel 15 Gm Gel..Gram. PO Q15M PRN per Hypoglycemia Standing Ord. Protocol Hydromorphone HCl 0.5 mg 07/12/21 17:02 07/29/21 13:49 Hydromorphone Hcl 0.5 Mg/0.5 Ml Syringe IVPUSH 0.5 mg Q3H PRN Administration Pain, Severe (Pain Scale 7-10) Protocol Promethazine HCl 12.5 mg/ 50.5 mls @ 202 mls/hr 07/05/21 10:28 07/28/21 18:04 Sodium Chloride IV Infused Q4H PRN Infusion nausea Levofloxacin 500 mg in 100 mls @ 100 mls/hr 07/19/21 06:15 07/29/21 06:18 Levaquin IV Infused Q24H [facility] Infusion Metronidazole 500 mg in 100 mls @ 100 mls/hr 07/19/21 06:15 07/29/21 15:00 Flagyl IV Infused Q8H [facility] Infusion Insulin Human Lispro 0 unit 07/05/21 16:30 07/29/21 12:49 Insulin Lispro 100 Unit/Ml 3 Ml Vial SUBCUT Not Given QIDACHS [facility] Protocol Loperamide HCl 2 mg 07/08/21 07:29 07/11/21 10:35 Loperamide Hcl Oral Liquid 2 Mg/15 Ml Liquid PO 2 mg Q6H PRN Administration diarrhea Magnesium Hydroxide 30 ml 07/17/21 12:45 Milk Of Magnesia 30 Ml Oral.Susp PO DAILY PRN Constipation Nystatin 1 appl 07/14/21 09:00 07/29/21 10:40 Nystatin Cream 15 Gm Tube TOPICAL 1 appl BID K[facility]CHAN Administration Protocol Omeprazole 20 mg 07/03/21 16:30 07/29/21 05:09 Omeprazole 20 Mg Capsule. PO 20 mg BID@0630,1630 [facility] Administration Ondansetron HCl 4 mg 07/03/21 14:18 07/05/21 03:37 Ondansetron Hcl 4 Mg/2 Ml Vial IVPUSH 4 mg Q6H PRN Administration Nausea and Vomiting Pharmacy Consult 1 each 07/03/21 14:18 Consult Rx Perform Med Rec MISCELLANE ONCE PRN Consult order Rivaroxaban 20 mg 07/04/21 17:00 07/28/21 16:53 Rivaroxaban 20 Mg Tablet PO 20 mg DAILY@1700 [facility] Administration Sodium Chloride 3 ml 07/03/21 16:00 07/29/21 09:04 0.9 % Sodium Chloride Flush 3 Ml Syringe IVFLUSH 3 ml QSHIFT [facility] Administration Spironolactone 25 mg 07/04/21 09:00 07/29/21 09:03 Spironolactone 25 Mg Tablet PO 25 mg DAILY [facility]CHAN Administration Protocol Trazodone HCl 50 mg 07/03/21 21:00 07/28/21 20:48 Trazodone Hcl 50 Mg Tablet PO 50 mg BEDTIME [facility] Administration Zolpidem Tartrate 5 mg 07/28/21 10:00 07/28/21 20:48 Zolpidem Tartrate 5 Mg Tablet PO 5 mg BEDTIME PRN Administration Insomnia Time Spent With Patient Time: Total time spent is greater than 50% in coordination of care (as documented) at patient's floor/unit and/or counseling patient: Time with patient: 15 - 24 minutes Quality Stroke Does the patient have a stroke diagnosis?: No VTE Prior VTE?: No VTE Risk Level:: Surgical - moderate VTE Device Contraindication: N/A - Device Ordered VTE Drug Contraindication: N/A - Med Ordered
[2021-07-29 16:35] LABS: Glucose, Whole Blood 127 mg/dL (60-115)
[2021-07-29] MEDS: Rivaroxaban 20 MG TABLET PO (17:09)
[2021-07-29 20:13] LABS: Glucose, Whole Blood 129 mg/dL (60-115)
[2021-07-29] MEDS: traZODone HCL 50 MG TABLET PO (21:20)
[2021-07-30] VITALS (9 sets, daily range): BP systolic 114–131; BP diastolic 61–69; PULSE 78–86; RESP 16–20; TEMP 36.1–37.3; O2SAT 92–99; BMI 22.1
[2021-07-30] MEDS: HYDROmorphone HCl 0.5 MG/0.5 ML SYRINGE IVPUSH ×6 (00:49→21:06)
[2021-07-30] MEDS: Omeprazole 20 MG CAPSULE.DR PO ×2 (06:18→17:08)
[2021-07-30] MEDS: metroNIDAZOLE/NS 500 MG/100 ML PIGGYBACK 100 MG IV (06:19)
[2021-07-30] MEDS: gemfibroziL 600 MG TABLET PO ×2 (06:19→17:08)
[2021-07-30] MEDS: levoFLOXacin/D5W 500 MG/100 ML PIGGYBACK 100 MG IV (07:27)
[2021-07-30 08:06] LABS: Glucose, Whole Blood 124 mg/dL (60-115)
[2021-07-30] MEDS: Spironolactone 25 MG TABLET PO (08:36)
[2021-07-30] MEDS: carvediloL 6.25 MG TABLET PO ×2 (08:36→21:10)
[2021-07-30] MEDS: Amiodarone HCL 200 MG TABLET PO (08:36)
[2021-07-30] MEDS: 0.9 % Sodium Chloride Flush 3 ML SYRINGE IVFLUSH ×2 (08:36→17:07)
--- NOTE | 2021-07-30 10:01 | MHC.CLN ---
F/U VARIABLE INTAKE PER DOCUMENTATION. WEIGHT REQUESTED. RD TO FOLLOW.
[2021-07-30] MEDS: Nystatin Cream 15 GM TUBE 1 APPL TOPICAL ×2 (10:49→21:12)
[2021-07-30 12:21] LABS: Glucose, Whole Blood 99 mg/dL (60-115)
--- NOTE | 2021-07-30 15:54 | P.PNGS_ITS ---
Subjective Subjective Date of Service: 07/30/21 Interval history: Patient feels nauseous this morning, denies significant abdominal pain. No other complaints Physical Exam Vital Signs: Vital Signs: Last Vital Signs Temp 97.7 F 07/30/21 11:48 Pulse 78 07/30/21 11:48 Resp 18 07/30/21 11:48 BP 131/67 07/30/21 11:48 Pulse Ox 99 07/30/21 11:48 Body Mass Index 22.1 Resp: Effort & Inspection: normal respiratory effort, no cough and no respiratory distress GI: Other: Soft, nondistended, dressings changed, janette removed, no erythema appreciated. Minimal discharge noted from incision and drainage sites. Clean dressings applied. Skin: Other: Warm, dry, no rash Procedures Date of Service Date of Service: 07/30/21 Progress Note: A&P Assessment and plan (1) Abdominal wall abscess: Status: Acute Assessment and Plan: Overall the patient is improved with decreased drainage from his abdominal wounds. He continues to have nausea which may be related to the antibiotics. His skin is much improved without erythema and minimal drainage is noted from the drainage sites there for the janette were removed. I will stop his antibiotics today and recheck a CT of the abdomen and pelvis to evaluate for any undrained collections. I reviewed the CT although the report at is pending at this time. I do not see any undrained collections at this time but will wait the final reading. Encourage patient to try to ambulate and sit up in bed. Fall Risk Details Current Medications: Current Medications Generic Name Dose Route Start Last Admin Trade Name Freq PRN Reason Stop Dose Admin Acetaminophen 650 mg 07/03/21 14:18 Acetaminophen 325 Mg Tablet PO Q6H PRN Pain, Mild (Pain Scale 1-3) Amiodarone HCl 200 mg 07/04/21 09:00 07/30/21 08:36 Amiodarone Hcl 200 Mg Tablet PO 200 mg DAILY [facility] Administration Carvedilol 6.25 mg 07/03/21 21:00 07/30/21 08:36 Carvedilol 6.25 Mg Tablet PO 6.25 mg BID [facility] Administration Protocol Dextrose 25 gm 07/03/21 16:18 Dextrose 50 % 25 Gm/50 Ml Vial IVPUSH Q15M PRN per Hypoglycemia Standing Ord. Protocol Gemfibrozil 600 mg 07/04/21 07:30 07/30/21 06:19 Gemfibrozil 600 Mg Tablet PO 600 mg BIDAC [facility] Administration Glucose 15 gm 07/03/21 16:18 Glucose Gel 15 Gm Gel..Gram. PO Q15M PRN per Hypoglycemia Standing Ord. Protocol Hydromorphone HCl 0.5 mg 07/12/21 17:02 07/30/21 12:27 Hydromorphone Hcl 0.5 Mg/0.5 Ml Syringe IVPUSH 0.5 mg Q3H PRN Administration Pain, Severe (Pain Scale 7-10) Protocol Promethazine HCl 12.5 mg/ 50.5 mls @ 202 mls/hr 07/05/21 10:28 07/30/21 13:58 Sodium Chloride IV Infused Q4H PRN Infusion nausea Insulin Human Lispro 0 unit 07/05/21 16:30 07/30/21 13:56 Insulin Lispro 100 Unit/Ml 3 Ml Vial SUBCUT Not Given QIDACHS [facility] Protocol Loperamide HCl 2 mg 07/08/21 07:29 07/11/21 10:35 Loperamide Hcl Oral Liquid 2 Mg/15 Ml Liquid PO 2 mg Q6H PRN Administration diarrhea Magnesium Hydroxide 30 ml 07/17/21 12:45 Milk Of Magnesia 30 Ml Oral.Susp PO DAILY PRN Constipation Nystatin 1 appl 07/14/21 09:00 07/30/21 10:49 Nystatin Cream 15 Gm Tube TOPICAL 1 appl BID K[facility]AN Administration Protocol Omeprazole 20 mg 07/03/21 16:30 07/30/21 06:18 Omeprazole 20 Mg Capsule.Dr PO 20 mg BID@0630,1630 [facility] Administration Ondansetron HCl 4 mg 07/03/21 14:18 07/05/21 03:37 Ondansetron Hcl 4 Mg/2 Ml Vial IVPUSH 4 mg Q6H PRN Administration Nausea and Vomiting Pharmacy Consult 1 each 07/03/21 14:18 Consult Rx Perform Med Rec MISCELLANE ONCE PRN Consult order Rivaroxaban 20 mg 07/04/21 17:00 07/29/21 17:09 Rivaroxaban 20 Mg Tablet PO 20 mg DAILY@1700 [facility] Administration Sodium Chloride 3 ml 07/03/21 16:00 07/30/21 08:36 0.9 % Sodium Chloride Flush 3 Ml Syringe IVFLUSH 3 ml QSHIFT [facility] Administration Spironolactone 25 mg 07/04/21 09:00 07/30/21 08:36 Spironolactone 25 Mg Tablet PO 25 mg DAILY [facility] Administration Protocol Trazodone HCl 50 mg 07/03/21 21:00 07/29/21 21:20 Trazodone Hcl 50 Mg Tablet PO 50 mg BEDTIME [facility] Administration Zolpidem Tartrate 5 mg 07/28/21 10:00 07/28/21 20:48 Zolpidem Tartrate 5 Mg Tablet PO 5 mg BEDTIME PRN Administration Insomnia Time Spent With Patient Time: Total time spent is greater than 50% in coordination of care (as documented) at patient's floor/unit and/or counseling patient: Time with patient: 15 - 24 minutes Quality Stroke Does the patient have a stroke diagnosis?: No VTE Prior VTE?: No VTE Risk Level:: Surgical - moderate VTE Device Contraindication: N/A - Device Ordered VTE Drug Contraindication: N/A - Med Ordered
--- NOTE | 2021-07-30 16:06 | PC.NURSE ---
Skin/Wound assessment completed today. Patient had stage 2 pressure ulcers to left knee and stump both have healed. Patient has a stage 2 pressure ulcer to sacrum area which is slowly improving. Also have 2 blanchable areas on his mid back.
[2021-07-30] MEDS: Rivaroxaban 20 MG TABLET PO (17:08)
[2021-07-30 17:11] LABS: Glucose, Whole Blood 110 mg/dL (60-115)
[2021-07-30 20:53] LABS: Glucose, Whole Blood 127 mg/dL (60-115)
[2021-07-30] MEDS: traZODone HCL 50 MG TABLET PO (21:11)
[2021-07-30] MEDS: Zolpidem Tartrate 5 MG TABLET PO (21:11)
[2021-07-31] VITALS (8 sets, daily range): BP systolic 104–131; BP diastolic 57–67; PULSE 76–82; RESP 15–20; TEMP 36–36.9; O2SAT 92–97
[2021-07-31] MEDS: HYDROmorphone HCl 0.5 MG/0.5 ML SYRINGE IVPUSH ×6 (00:33→21:04)
[2021-07-31] MEDS: 0.9 % Sodium Chloride Flush 3 ML SYRINGE IVFLUSH ×3 (00:34→16:21)
[2021-07-31 06:10] LABS: MANUAL DIFF FLAG NO
[2021-07-31 06:12] LABS: Basophils Percent Auto 0.2 % (0-2); Eosinophils Absolute Auto 0.7 X10*3/uL (0.0-0.4); Eosinophils Percent Auto 7.7 % (0-4); Hematocrit 35.8 % (42-52); Hemoglobin 11.2 g/dl (14.0-18.0); Imm Gran Abs Auto 0.03 X10*3/uL (0.00-0.03); Imm Gran Pct Auto 0.3 % (0.0-0.4); Lymphocytes Absolute Auto 0.9 X10*3/uL (1.2-4.9); Lymphocytes Percent Auto 9.4 % (20-40); Mean Corpuscular HGB Conc 31.3 g/dl (31.0-36.0); Mean Corpuscular Hemoglobin 28.6 pg (27.0-33.0); Mean Corpuscular Volume 91.6 fL (80-98); Mean Platelet Volume 11.8 fL (9.4-12.4); Monocytes Absolute Auto 0.7 X10*3/uL (0.1-1.2); Monocytes Percent Auto 7.6 % (2-11); Neutrophils Absolute Auto 7.2 X10*3/uL (2.0-8.3); Neutrophils Percent Auto 74.8 % (45-73); Platelet Count 190 X10*3/uL (160-400); Red Blood Count 3.91 X10*6/uL (4.60-5.80); Red Cell Distribution Width 15.2 % (11.0-16.0); White Blood Count 9.7 X10*3/uL (4.8-10.8)
[2021-07-31 06:47] LABS: Blood Urea Nitrogen 8 mg/dL (9-16)
[2021-07-31] MEDS: Omeprazole 20 MG CAPSULE.DR PO ×2 (06:50→16:21)
[2021-07-31 06:54] LABS: Anion Gap 11 (12-20); Calcium 8.1 mg/dL (8.4-10.2); Carbon Dioxide 28 mmol/L (22-29); Chloride 103 mmol/L (96-108); Creatinine Clr Calc Pharmacy 132.2; Estimated Glomerular Filt Rate > 60; Glucose Random 155 mg/dL (60-115); Potassium 4.7 mmol/L (3.3-5.1); Sodium 137 mmol/L (135-145)
[2021-07-31] MEDS: Amiodarone HCL 200 MG TABLET PO (07:54)
[2021-07-31] MEDS: Spironolactone 25 MG TABLET PO (07:54)
[2021-07-31] MEDS: gemfibroziL 600 MG TABLET PO ×2 (07:54→16:21)
[2021-07-31] MEDS: Loperamide HCl Oral Liquid 2 MG/15 ML LIQUID PO ×3 (07:54→18:23)
[2021-07-31 08:11] LABS: Glucose, Whole Blood 151 mg/dL (60-115)
[2021-07-31] MEDS: Nystatin Cream 15 GM TUBE 1 APPL TOPICAL ×2 (09:56→20:59)
[2021-07-31] MEDS: carvediloL 6.25 MG TABLET PO ×2 (09:59→20:57)
[2021-07-31 12:10] LABS: Glucose, Whole Blood 202 mg/dL (60-115)
[2021-07-31 16:07] LABS: Glucose, Whole Blood 140 mg/dL (60-115)
[2021-07-31] MEDS: Rivaroxaban 20 MG TABLET PO (16:21)
--- NOTE | 2021-07-31 17:19 | P.PNGS_ITS ---
Subjective Subjective Date of Service: 07/31/21 Interval history: Patient reports decreased nausea after stopping the antibiotics but still has diarrhea. Still not much of an appetite. Did not get out of bed today. Physical Exam Vital Signs: Vital Signs: Last Vital Signs Temp 97.3 F 07/31/21 15:34 Pulse 78 07/31/21 15:34 Resp 18 07/31/21 15:34 BP 122/57 L 07/31/21 15:34 Pulse Ox 96 07/31/21 15:34 Body Mass Index 22.1 Resp: Effort & Inspection: normal respiratory effort, no cough and no respiratory distress GI: Other: Soft, mild tenderness in the right lower quadrant. Dressings changed. Small amount of discharge noted from both wounds. Minimal purulent discharge noted. Sterile dressings applied. Percussion: Yes normal to percussion Skin: General skin exam: no rashes or lesions noted Procedures Date of Service Date of Service: 07/31/21 Progress Note: A&P Assessment and plan (1) Abdominal wall abscess: Status: Acute Assessment and Plan: Wounds are making steady improvement and discharge is decreasing. There is no erythema in the abdominal wall. Princess are now completely removed and the patient is off antibiotics. Patient was encouraged to get out of bed and take deep breaths. He is promising to get out of bed tomorrow. Fall Risk Details Current Medications: Current Medications Generic Name Dose Route Start Last Admin Trade Name Freq PRN Reason Stop Dose Admin Acetaminophen 650 mg 07/03/21 14:18 Acetaminophen 325 Mg Tablet PO Q6H PRN Pain, Mild (Pain Scale 1-3) Amiodarone HCl 200 mg 07/04/21 09:00 07/31/21 07:54 Amiodarone Hcl 200 Mg Tablet PO 200 mg DAILY [facility]AN Administration Carvedilol 6.25 mg 07/03/21 21:00 07/31/21 09:59 Carvedilol 6.25 Mg Tablet PO 6.25 mg BID KANCHAN Administration Protocol Dextrose 25 gm 07/03/21 16:18 Dextrose 50 % 25 Gm/50 Ml Vial IVPUSH Q15M PRN per Hypoglycemia Standing Ord. Protocol Gemfibrozil 600 mg 07/04/21 07:30 07/31/21 16:21 Gemfibrozil 600 Mg Tablet PO 600 mg BIDAC KANCHAN Administration Glucose 15 gm 07/03/21 16:18 Glucose Gel 15 Gm Gel..Gram. PO Q15M PRN per Hypoglycemia Standing Ord. Protocol Hydromorphone HCl 0.5 mg 07/12/21 17:02 07/31/21 16:19 Hydromorphone Hcl 0.5 Mg/0.5 Ml Syringe IVPUSH 0.5 mg Q3H PRN Administration Pain, Severe (Pain Scale 7-10) Protocol Promethazine HCl 12.5 mg/ 50.5 mls @ 202 mls/hr 07/05/21 10:28 07/30/21 21:48 Sodium Chloride IV Infused Q4H PRN Infusion nausea Insulin Human Lispro 0 unit 07/05/21 16:30 07/31/21 16:22 Insulin Lispro 100 Unit/Ml 3 Ml Vial SUBCUT Not Given QIDACHS [facility] Protocol Loperamide HCl 2 mg 07/08/21 07:29 07/31/21 11:38 Loperamide Hcl Oral Liquid 2 Mg/15 Ml Liquid PO 2 mg Q6H PRN Administration diarrhea Magnesium Hydroxide 30 ml 07/17/21 12:45 Milk Of Magnesia 30 Ml Oral.Susp PO DAILY PRN Constipation Nystatin 1 appl 07/14/21 09:00 07/31/21 09:56 Nystatin Cream 15 Gm Tube TOPICAL 1 appl BID K[facility]AN Administration Protocol Omeprazole 20 mg 07/03/21 16:30 07/31/21 16:21 Omeprazole 20 Mg Capsule.Dr PO 20 mg BID@0630,1630 [facility] Administration Ondansetron HCl 4 mg 07/03/21 14:18 07/05/21 03:37 Ondansetron Hcl 4 Mg/2 Ml Vial IVPUSH 4 mg Q6H PRN Administration Nausea and Vomiting Pharmacy Consult 1 each 07/03/21 14:18 Consult Rx Perform Med Rec MISCELLANE ONCE PRN Consult order Rivaroxaban 20 mg 07/04/21 17:00 07/31/21 16:21 Rivaroxaban 20 Mg Tablet PO 20 mg DAILY@1700 [facility] Administration Sodium Chloride 3 ml 07/03/21 16:00 07/31/21 16:21 0.9 % Sodium Chloride Flush 3 Ml Syringe IVFLUSH 3 ml QSHIFT [facility] Administration Spironolactone 25 mg 07/04/21 09:00 07/31/21 07:54 Spironolactone 25 Mg Tablet PO 25 mg DAILY [facility] Administration Protocol Trazodone HCl 50 mg 07/03/21 21:00 07/30/21 21:11 Trazodone Hcl 50 Mg Tablet PO 50 mg BEDTIME [facility] Administration Zolpidem Tartrate 5 mg 07/28/21 10:00 07/30/21 21:11 Zolpidem Tartrate 5 Mg Tablet PO 5 mg BEDTIME PRN Administration Insomnia Time Spent With Patient Time: Total time spent is greater than 50% in coordination of care (as documented) at patient's floor/unit and/or counseling patient: Time with patient: 15 - 24 minutes Quality Stroke Does the patient have a stroke diagnosis?: No VTE Prior VTE?: No VTE Risk Level:: Surgical - moderate VTE Device Contraindication: N/A - Device Ordered VTE Drug Contraindication: N/A - Med Ordered
[2021-07-31 20:16] LABS: Glucose, Whole Blood 121 mg/dL (60-115)
[2021-07-31] MEDS: Zolpidem Tartrate 5 MG TABLET PO (20:58)
[2021-07-31] MEDS: traZODone HCL 50 MG TABLET PO (20:58)
[2021-08-01] VITALS (7 sets, daily range): BP systolic 117–136; BP diastolic 58–70; PULSE 72–79; RESP 14–18; TEMP 36.3–36.6; O2SAT 94–97
[2021-08-01] MEDS: 0.9 % Sodium Chloride Flush 3 ML SYRINGE IVFLUSH ×3 (00:06→16:14)
[2021-08-01] MEDS: HYDROmorphone HCl 0.5 MG/0.5 ML SYRINGE IVPUSH ×6 (00:08→20:04)
[2021-08-01] MEDS: Omeprazole 20 MG CAPSULE.DR PO ×2 (05:41→16:14)
[2021-08-01 07:17] LABS: Glucose, Whole Blood 97 mg/dL (60-115)
[2021-08-01] MEDS: gemfibroziL 600 MG TABLET PO ×2 (07:36→16:14)
[2021-08-01] MEDS: Amiodarone HCL 200 MG TABLET PO (07:36)
[2021-08-01] MEDS: Spironolactone 25 MG TABLET PO (07:36)
[2021-08-01] MEDS: carvediloL 6.25 MG TABLET PO ×2 (07:37→20:03)
--- NOTE | 2021-08-01 08:45 | PM.PNGS ---
Subjective Subjective Date of Service: 08/01/21 Interval history: Patient reports decreased nausea and no vomiting. No further diarrhea overnight. Wants to get out of bed today and ambulate. Physical Exam Vital Signs: Vital Signs: Last Vital Signs Temp 97.8 F 08/01/21 07:13 Pulse 77 08/01/21 07:13 Resp 18 08/01/21 07:13 BP 136/62 08/01/21 07:13 Pulse Ox 95 08/01/21 07:13 Body Mass Index 22.1 Const: Other: Awake and alert, no acute distress GI: Other: Soft and nondistended. Dressings will be changed later today. Skin: Other: Warm, dry, no rash Procedures Date of Service Date of Service: 08/01/21 Progress Note: A&P Assessment and plan (1) Abdominal wall abscess: Status: Acute Assessment and Plan: Overall patient feels improved with decreased abdominal pain, decreased nausea and no further vomiting. I will return later to do his dressing change. Anticipate discharge early next week. Fall Risk Details Current Medications: Current Medications Generic Name Dose Route Start Last Admin Trade Name Freq PRN Reason Stop Dose Admin Acetaminophen 650 mg 07/03/21 14:18 Acetaminophen 325 Mg Tablet PO Q6H PRN Pain, Mild (Pain Scale 1-3) Amiodarone HCl 200 mg 07/04/21 09:00 08/01/21 07:36 Amiodarone Hcl 200 Mg Tablet PO 200 mg DAILY [facility] Administration Carvedilol 6.25 mg 07/03/21 21:00 08/01/21 07:37 Carvedilol 6.25 Mg Tablet PO 6.25 mg BID KANCHAN Administration Protocol Dextrose 25 gm 07/03/21 16:18 Dextrose 50 % 25 Gm/50 Ml Vial IVPUSH Q15M PRN per Hypoglycemia Standing Ord. Protocol Gemfibrozil 600 mg 07/04/21 07:30 08/01/21 07:36 Gemfibrozil 600 Mg Tablet PO 600 mg BIDAC KANCHAN Administration Glucose 15 gm 07/03/21 16:18 Glucose Gel 15 Gm Gel..Gram. PO Q15M PRN per Hypoglycemia Standing Ord. Protocol Hydromorphone HCl 0.5 mg 07/12/21 17:02 08/01/21 07:41 Hydromorphone Hcl 0.5 Mg/0.5 Ml Syringe IVPUSH 0.5 mg Q3H PRN Administration Pain, Severe (Pain Scale 7-10) Protocol Promethazine HCl 12.5 mg/ 50.5 mls @ 202 mls/hr 07/05/21 10:28 07/31/21 19:42 Sodium Chloride IV Infused Q4H PRN Infusion nausea Insulin Human Lispro 0 unit 07/05/21 16:30 08/01/21 07:16 Insulin Lispro 100 Unit/Ml 3 Ml Vial SUBCUT Not Given QIDACHS [facility] Protocol Loperamide HCl 2 mg 07/08/21 07:29 07/31/21 18:23 Loperamide Hcl Oral Liquid 2 Mg/15 Ml Liquid PO 2 mg Q6H PRN Administration diarrhea Magnesium Hydroxide 30 ml 07/17/21 12:45 Milk Of Magnesia 30 Ml Oral.Susp PO DAILY PRN Constipation Nystatin 1 appl 07/14/21 09:00 07/31/21 20:59 Nystatin Cream 15 Gm Tube TOPICAL 1 appl BID [facility]ANCHAN Administration Protocol Omeprazole 20 mg 07/03/21 16:30 08/01/21 05:41 Omeprazole 20 Mg Capsule.Dr PO 20 mg BID@0630,1630 [facility] Administration Ondansetron HCl 4 mg 07/03/21 14:18 07/05/21 03:37 Ondansetron Hcl 4 Mg/2 Ml Vial IVPUSH 4 mg Q6H PRN Administration Nausea and Vomiting Pharmacy Consult 1 each 07/03/21 14:18 Consult Rx Perform Med Rec MISCELLANE ONCE PRN Consult order Rivaroxaban 20 mg 07/04/21 17:00 07/31/21 16:21 Rivaroxaban 20 Mg Tablet PO 20 mg DAILY@1700 [facility] Administration Sodium Chloride 3 ml 07/03/21 16:00 08/01/21 00:06 0.9 % Sodium Chloride Flush 3 Ml Syringe IVFLUSH 3 ml QSHIFT [facility] Administration Spironolactone 25 mg 07/04/21 09:00 08/01/21 07:36 Spironolactone 25 Mg Tablet PO 25 mg DAILY KANCHAN Administration Protocol Trazodone HCl 50 mg 07/03/21 21:00 07/31/21 20:58 Trazodone Hcl 50 Mg Tablet PO 50 mg BEDTIME [facility] Administration Zolpidem Tartrate 5 mg 07/28/21 10:00 07/31/21 20:58 Zolpidem Tartrate 5 Mg Tablet PO 5 mg BEDTIME PRN Administration Insomnia Time Spent With Patient Time: Total time spent is greater than 50% in coordination of care (as documented) at patient's floor/unit and/or counseling patient: Time with patient: 15 - 24 minutes Quality Stroke Does the patient have a stroke diagnosis?: No VTE Prior VTE?: No VTE Risk Level:: Surgical - moderate VTE Device Contraindication: N/A - Device Ordered VTE Drug Contraindication: N/A - Med Ordered
--- NOTE | 2021-08-01 11:12 | MHC.CLN ---
F/U WEIGHT 07/31=80.6 KG. WEIGHT LOSS SINCE 07/05=-6.5 KG, 7.5%. SIGNIFICANT WEIGHT LOSS X APPROXIMATELY 3 WEEKS. VARIABLE INTAKE, 0-100%. DECREASED ABDOMINAL PAIN, DECREASED NAUSEA AND NO FURTHER VOMITING NOTED. DIET=REGULAR; DECLINES SUPPLEMENTS. HAS RX FOR INSULIN WITH NO COVERAGE NEEDED SINCE 07/28. WOUNDS OVERALL IMPROVED: 2 AREAS ON LEFT LEG HEALED; STAGE I MID BACK; STAGE II TO SACRUM (BUTTOCK). CONTINUE TO FOLLOW.
[2021-08-01 11:21] LABS: Glucose, Whole Blood 174 mg/dL (60-115)
[2021-08-01] MEDS: Nystatin Cream 15 GM TUBE 1 APPL TOPICAL ×2 (12:06→20:03)
[2021-08-01] MEDS: Insulin Lispro 100 UNIT/ML 3 ML VIAL SUBCUT ×2 (12:12→20:19)
[2021-08-01 16:05] LABS: Glucose, Whole Blood 132 mg/dL (60-115)
[2021-08-01] MEDS: Rivaroxaban 20 MG TABLET PO (16:14)
[2021-08-01] MEDS: traZODone HCL 50 MG TABLET PO (20:03)
[2021-08-01 20:18] LABS: Glucose, Whole Blood 162 mg/dL (60-115)
[2021-08-01] MEDS: Zolpidem Tartrate 5 MG TABLET PO (20:19)
[2021-08-02] VITALS (7 sets, daily range): BP systolic 116–134; BP diastolic 63–77; PULSE 70–80; RESP 14–18; TEMP 36–36.6; O2SAT 94–96
[2021-08-02] MEDS: HYDROmorphone HCl 0.5 MG/0.5 ML SYRINGE IVPUSH ×7 (00:33→23:21)
[2021-08-02] MEDS: 0.9 % Sodium Chloride Flush 3 ML SYRINGE IVFLUSH ×3 (00:38→16:41)
[2021-08-02] MEDS: Omeprazole 20 MG CAPSULE.DR PO ×2 (05:39→16:40)
[2021-08-02 07:32] LABS: Glucose, Whole Blood 95 mg/dL (60-115)
[2021-08-02] MEDS: carvediloL 6.25 MG TABLET PO ×2 (07:48→22:18)
[2021-08-02] MEDS: gemfibroziL 600 MG TABLET PO ×2 (07:48→16:40)
[2021-08-02] MEDS: Spironolactone 25 MG TABLET PO (07:48)
[2021-08-02] MEDS: Nystatin Cream 15 GM TUBE 1 APPL TOPICAL (07:49)
[2021-08-02] MEDS: Amiodarone HCL 200 MG TABLET PO (07:49)
--- NOTE | 2021-08-02 10:40 | PM.PNGS ---
Subjective Subjective Date of Service: 08/02/21 Interval history: Denies complaints Says he feels well No pain Physical Exam Vital Signs: Vital Signs: Last Vital Signs Temp 97.2 F 08/02/21 07:27 Pulse 80 08/02/21 07:27 Resp 18 08/02/21 07:27 BP 132/66 08/02/21 07:27 Pulse Ox 94 08/02/21 07:27 Body Mass Index 22.1 Const: General: comfortable and no acute distress Resp: Effort & Inspection: normal respiratory effort Cardio: Rate: regular rate GI: Other: Soft, nontender, small draining wound on the right and so near the right flank, scanty drainage Procedures Date of Service Date of Service: 08/02/21 Progress Note: A&P Assessment and plan (1) Abdominal wall abscess: Status: Acute Assessment and Plan: Looks well I changes dressings - dry gauze used Good GI function Continue current care Fall Risk Details Current Medications: Current Medications Acetaminophen (Acetaminophen 325 Mg Tablet) 650 mg PO Q6H PRN PRN Reason: Pain, Mild (Pain Scale 1-3) Amiodarone HCl (Amiodarone Hcl 200 Mg Tablet) 200 mg PO DAILY [facility] Last Admin: 08/02/21 07:49 Dose: 200 mg Documented by: Carvedilol (Carvedilol 6.25 Mg Tablet) 6.25 mg PO BID [facility]; Protocol Last Admin: 08/02/21 07:48 Dose: 6.25 mg Documented by: Dextrose (Dextrose 50 % 25 Gm/50 Ml Vial) 25 gm IVPUSH Q15M PRN; Protocol PRN Reason: per Hypoglycemia Standing Ord. Gemfibrozil (G[facility]il 600 Mg Tablet) [facility] Last Admin: 08/02/21 07:48 Dose: 600 mg Documented by: Glucose (Glucose Gel 15 Gm Gel..Gram.) 15 gm PO Q15M PRN; Protocol PRN Reason: per Hypoglycemia Standing Ord. Hydromorphone HCl (Hydromorphone Hcl 0.5 Mg/0.5 Ml Syringe) 0.5 mg IVPUSH Q3H PRN; Protocol PRN Reason: Pain, Severe (Pain Scale 7-10) Last Admin: 08/02/21 07:44 Dose: 0.5 mg Documented by: Promethazine HCl 12.5 mg/ (Sodium Chloride) 50.5 mls @ 202 mls/hr IV Q4H PRN PRN Reason: nausea Last Infusion: 08/02/21 08:12 Dose: Infused Documented by: Insulin Human Lispro (Insulin Lispro 100 Unit/Ml 3 Ml Vial) 0 unit SUBCUT QIDACHS [facility]; Protocol Last Admin: 08/02/21 07:34 Dose: Not Given Documented by: Loperamide HCl (Loperamide Hcl Oral Liquid 2 Mg/15 Ml Liquid) 2 mg PO Q6H PRN PRN Reason: diarrhea Last Admin: 07/31/21 18:23 Dose: 2 mg Documented by: Magnesium Hydroxide (Milk Of Magnesia 30 Ml Oral.Susp) 30 ml PO DAILY PRN PRN Reason: Constipation Nystatin (Nystatin Cream 15 Gm Tube) 1 appl TOPICAL BID [facility]; Protocol Last Admin: 08/02/21 07:49 Dose: 1 appl Documented by: Omeprazole (Omeprazole 20 Mg Capsule.Dr) 20 mg PO BID@0630,1630 [facility] Last Admin: 08/02/21 05:39 Dose: 20 mg Documented by: Ondansetron HCl (Ondansetron Hcl 4 Mg/2 Ml Vial) 4 mg IVPUSH Q6H PRN PRN Reason: Nausea and Vomiting Last Admin: 07/05/21 03:37 Dose: 4 mg Documented by: Pharmacy Consult (Consult Rx Perform Med Rec) 1 each MISCELLANE ONCE PRN PRN Reason: Consult order Rivaroxaban (Rivaroxaban 20 Mg Tablet) 20 mg PO DAILY@1700 [facility] Last Admin: 08/01/21 16:14 Dose: 20 mg Documented by: Sodium Chloride (0.9 % Sodium Chloride Flush 3 Ml Syringe) 3 ml IVFLUSH QSHIFT [facility] Last Admin: 08/02/21 07:48 Dose: 3 ml Documented by: Spironolactone (Spironolactone 25 Mg Tablet) 25 mg PO DAILY [facility]; Protocol Last Admin: 08/02/21 07:48 Dose: 25 mg Documented by: Trazodone HCl (Trazodone Hcl 50 Mg Tablet) 50 mg PO BEDTIME [facility] Last Admin: 08/01/21 20:03 Dose: 50 mg Documented by: Zolpidem Tartrate (Zolpidem Tartrate 5 Mg Tablet) 5 mg PO BEDTIME PRN PRN Reason: Insomnia Last Admin: 08/01/21 20:19 Dose: 5 mg Documented by: Time Spent With Patient Time: Total time spent is greater than 50% in coordination of care (as documented) at patient's floor/unit and/or counseling patient: Time with patient: 15 - 24 minutes Quality Stroke Does the patient have a stroke diagnosis?: No VTE Prior VTE?: No VTE Risk Level:: Surgical - moderate VTE Device Contraindication: N/A - Device Ordered VTE Drug Contraindication: N/A - Med Ordered
[2021-08-02 11:32] LABS: Glucose, Whole Blood 125 mg/dL (60-115)
[2021-08-02 16:31] LABS: Glucose, Whole Blood 163 mg/dL (60-115)
[2021-08-02] MEDS: Rivaroxaban 20 MG TABLET PO (16:40)
[2021-08-02] MEDS: Insulin Lispro 100 UNIT/ML 3 ML VIAL SUBCUT (16:41)
[2021-08-02 20:29] LABS: Glucose, Whole Blood 103 mg/dL (60-115)
[2021-08-02] MEDS: traZODone HCL 50 MG TABLET PO (22:18)
[2021-08-02] MEDS: Zolpidem Tartrate 5 MG TABLET PO (22:21)
[2021-08-03] VITALS (8 sets, daily range): BP systolic 111–128; BP diastolic 62–66; PULSE 70–83; RESP 16–18; TEMP 36.1–36.6; O2SAT 93–97
[2021-08-03] MEDS: 0.9 % Sodium Chloride Flush 3 ML SYRINGE IVFLUSH ×4 (00:15→22:28)
[2021-08-03] MEDS: HYDROmorphone HCl 0.5 MG/0.5 ML SYRINGE IVPUSH ×6 (02:07→22:22)
[2021-08-03] MEDS: Omeprazole 20 MG CAPSULE.DR PO ×2 (06:19→17:06)
[2021-08-03 07:39] LABS: Glucose, Whole Blood 107 mg/dL (60-115)
[2021-08-03] MEDS: gemfibroziL 600 MG TABLET PO ×2 (07:58→17:06)
[2021-08-03] MEDS: Amiodarone HCL 200 MG TABLET PO (07:58)
[2021-08-03] MEDS: carvediloL 6.25 MG TABLET PO ×2 (07:58→22:21)
[2021-08-03] MEDS: Spironolactone 25 MG TABLET PO (07:58)
[2021-08-03] MEDS: Nystatin Cream 15 GM TUBE 1 APPL TOPICAL ×2 (08:01→22:22)
--- NOTE | 2021-08-03 10:27 | PM.PNGS ---
Subjective Subjective Date of Service: 08/03/21 Interval history: no new complaints some pain on I and D site good PO intake Physical Exam Vital Signs: Vital Signs: Last Vital Signs Temp 96.9 F 08/03/21 07:21 Pulse 76 08/03/21 07:21 Resp 18 08/03/21 07:21 BP 128/65 08/03/21 07:21 Pulse Ox 96 08/03/21 07:21 Body Mass Index 22.1 Const: General: comfortable and no acute distress Resp: Effort & Inspection: normal respiratory effort Cardio: Rate: regular rate GI: Other: soft, small sinus on right side of abdomen, scanty drainage, open wound on right flank,also with some scanty drainage Procedures Date of Service Date of Service: 08/03/21 Progress Note: A&P Assessment and plan (1) Abdominal wall abscess: Status: Acute Assessment and Plan: S/P I and D I changed dressings - dry gauze applied doing well overall likely home this week Fall Risk Details Current Medications: Current Medications Acetaminophen (Acetaminophen 325 Mg Tablet) 650 mg PO Q6H PRN PRN Reason: Pain, Mild (Pain Scale 1-3) Amiodarone HCl (Amiodarone Hcl 200 Mg Tablet) 200 mg PO DAILY [facility] Last Admin: 08/03/21 07:58 Dose: 200 mg Documented by: Carvedilol (Carvedilol 6.25 Mg Tablet) 6.25 mg PO BID [facility]; Protocol Last Admin: 08/03/21 07:58 Dose: 6.25 mg Documented by: Dextrose (Dextrose 50 % 25 Gm/50 Ml Vial) 25 gm IVPUSH Q15M PRN; Protocol PRN Reason: per Hypoglycemia Standing Ord. Gemfibrozil ([facility] 600 Mg Tablet) [facility] Last Admin: 08/03/21 07:58 Dose: 600 mg Documented by: Glucose (Glucose Gel 15 Gm Gel..Gram.) 15 gm PO Q15M PRN; Protocol PRN Reason: per Hypoglycemia Standing Ord. Hydromorphone HCl (Hydromorphone Hcl 0.5 Mg/0.5 Ml Syringe) 0.5 mg IVPUSH Q3H PRN; Protocol PRN Reason: Pain, Severe (Pain Scale 7-10) Promethazine HCl 12.5 mg/ (Sodium Chloride) 50.5 mls @ 202 mls/hr IV Q4H PRN PRN Reason: nausea Last Infusion: 08/03/21 08:13 Dose: Infused Documented by: Insulin Human Lispro (Insulin Lispro 100 Unit/Ml 3 Ml Vial) 0 unit SUBCUT QIDACHS [facility]; Protocol Last Admin: 08/03/21 07:46 Dose: Not Given Documented by: Loperamide HCl (Loperamide Hcl Oral Liquid 2 Mg/15 Ml Liquid) 2 mg PO Q6H PRN PRN Reason: diarrhea Last Admin: 07/31/21 18:23 Dose: 2 mg Documented by: Magnesium Hydroxide (Milk Of Magnesia 30 Ml Oral.Susp) 30 ml PO DAILY PRN PRN Reason: Constipation Nystatin (Nystatin Cream 15 Gm Tube) 1 appl TOPICAL BID [facility]; Protocol Last Admin: 08/03/21 08:01 Dose: 1 appl Documented by: Omeprazole (Omeprazole 20 Mg Capsule.Dr) 20 mg PO BID@0630,1630 [facility] Last Admin: 08/03/21 06:19 Dose: 20 mg Documented by: Ondansetron HCl (Ondansetron Hcl 4 Mg/2 Ml Vial) 4 mg IVPUSH Q6H PRN PRN Reason: Nausea and Vomiting Last Admin: 07/05/21 03:37 Dose: 4 mg Documented by: Pharmacy Consult (Consult Rx Perform Med Rec) 1 each MISCELLANE ONCE PRN PRN Reason: Consult order Rivaroxaban (Rivaroxaban 20 Mg Tablet) 20 mg PO DAILY@1700 [facility] Last Admin: 08/02/21 16:40 Dose: 20 mg Documented by: Sodium Chloride (0.9 % Sodium Chloride Flush 3 Ml Syringe) 3 ml IVFLUSH QSHIFT [facility] Last Admin: 08/03/21 07:59 Dose: 3 ml Documented by: Spironolactone (Spironolactone 25 Mg Tablet) 25 mg PO DAILY [facility]; Protocol Last Admin: 08/03/21 07:58 Dose: 25 mg Documented by: Trazodone HCl (Trazodone Hcl 50 Mg Tablet) 50 mg PO BEDTIME [facility] Last Admin: 08/02/21 22:18 Dose: 50 mg Documented by: Zolpidem Tartrate (Zolpidem Tartrate 5 Mg Tablet) 5 mg PO BEDTIME PRN PRN Reason: Insomnia Last Admin: 08/02/21 22:21 Dose: 5 mg Documented by: Time Spent With Patient Time: Total time spent is greater than 50% in coordination of care (as documented) at patient's floor/unit and/or counseling patient: Time with patient: 15 - 24 minutes Quality Stroke Does the patient have a stroke diagnosis?: No VTE Prior VTE?: No VTE Risk Level:: Surgical - moderate VTE Device Contraindication: N/A - Device Ordered VTE Drug Contraindication: N/A - Med Ordered
[2021-08-03 11:56] LABS: Glucose, Whole Blood 157 mg/dL (60-115)
[2021-08-03] MEDS: Insulin Lispro 100 UNIT/ML 3 ML VIAL SUBCUT (12:19)
[2021-08-03 16:27] LABS: Glucose, Whole Blood 103 mg/dL (60-115)
[2021-08-03] MEDS: Rivaroxaban 20 MG TABLET PO (17:06)
[2021-08-03 21:12] LABS: Glucose, Whole Blood 148 mg/dL (60-115)
[2021-08-03] MEDS: traZODone HCL 50 MG TABLET PO (22:22)
[2021-08-03] MEDS: Zolpidem Tartrate 5 MG TABLET PO (22:28)
[2021-08-04] MEDS: HYDROmorphone HCl 0.5 MG/0.5 ML SYRINGE IVPUSH ×6 (02:19→20:07)
[2021-08-04 04:00] VITALS: BP 124/64; PULSE 76; RESP 17; TEMP 36.5; O2SAT 96
[2021-08-04] MEDS: Omeprazole 20 MG CAPSULE.DR PO ×2 (05:33→16:44)
[2021-08-04 07:53] LABS: Glucose, Whole Blood 154 mg/dL (60-115)
[2021-08-04 08:00] VITALS: BP 129/66; PULSE 74; RESP 18; TEMP 36.1; O2SAT 97
[2021-08-04] MEDS: carvediloL 6.25 MG TABLET PO ×2 (09:14→20:07)
[2021-08-04] MEDS: Insulin Lispro 100 UNIT/ML 3 ML VIAL SUBCUT ×2 (09:14→12:32)
[2021-08-04] MEDS: gemfibroziL 600 MG TABLET PO ×2 (09:14→16:44)
[2021-08-04] MEDS: 0.9 % Sodium Chloride Flush 3 ML SYRINGE IVFLUSH ×3 (09:14→20:07)
[2021-08-04] MEDS: Amiodarone HCL 200 MG TABLET PO (09:14)
[2021-08-04] MEDS: Spironolactone 25 MG TABLET PO (09:14)
[2021-08-04] MEDS: Nystatin Cream 15 GM TUBE 1 APPL TOPICAL ×2 (09:17→20:07)
[2021-08-04 11:33] VITALS: BP 116/62; PULSE 71; RESP 18; TEMP 36.1; O2SAT 97
--- NOTE | 2021-08-04 11:55 | MHC.CM.PN ---
PER REVIEW OF SURGICAL PROGRESS NOTES, PATIENT WILL LIKELY RETURN HOME THIS WEEK. [facility] MADE AWARE OF PLAN AND WILL UPDATE.
--- NOTE | 2021-08-04 11:57 | MHC.CLN ---
F/U NO CHANGES IN APPETITE REPORTED BY PATIENT. CONTINUES TO EAT FOODS PROVIDED BY FAMILY AND FOODS OFFERED HERE. DOES NOT WANT MNT SUPPLEMENTS. CONTINUE TO FOLLOW.
[2021-08-04 12:05] LABS: Glucose, Whole Blood 159 mg/dL (60-115)
[2021-08-04 15:32] VITALS: BP 119/68; PULSE 69; RESP 20; TEMP 36.2; O2SAT 97
[2021-08-04 16:44] LABS: Glucose, Whole Blood 135 mg/dL (60-115)
[2021-08-04] MEDS: Rivaroxaban 20 MG TABLET PO (16:44)
[2021-08-04 19:59] VITALS: BP 118/62; PULSE 71; RESP 16; TEMP 36.4; O2SAT 94
[2021-08-04 20:07] VITALS: BP 118/62; PULSE 71
[2021-08-04] MEDS: traZODone HCL 50 MG TABLET PO (20:07)
[2021-08-04] MEDS: Zolpidem Tartrate 5 MG TABLET PO (20:18)
[2021-08-04 20:51] LABS: Glucose, Whole Blood 147 mg/dL (60-115)
[2021-08-05] VITALS (11 sets, daily range): BP systolic 105–127; BP diastolic 57–65; PULSE 67–78; RESP 15–20; TEMP 35.9–36.8; O2SAT 93–98
[2021-08-05] MEDS: HYDROmorphone HCl 0.5 MG/0.5 ML SYRINGE IVPUSH ×7 (00:06→22:09)
[2021-08-05] MEDS: Omeprazole 20 MG CAPSULE.DR PO ×2 (05:30→15:25)
[2021-08-05 07:26] LABS: Glucose, Whole Blood 130 mg/dL (60-115)
[2021-08-05] MEDS: 0.9 % Sodium Chloride Flush 3 ML SYRINGE IVFLUSH ×3 (07:26→21:23)
[2021-08-05] MEDS: gemfibroziL 600 MG TABLET PO ×2 (07:26→15:25)
[2021-08-05] MEDS: Amiodarone HCL 200 MG TABLET PO (07:26)
[2021-08-05] MEDS: carvediloL 6.25 MG TABLET PO ×2 (07:26→21:22)
[2021-08-05] MEDS: Spironolactone 25 MG TABLET PO (07:27)
[2021-08-05] MEDS: Nystatin Cream 15 GM TUBE 1 APPL TOPICAL ×2 (07:27→21:24)
--- NOTE | 2021-08-05 07:56 | PM.PNGS ---
Subjective Subjective Date of Service: 08/05/21 Interval history: Patient feels improved, slept well last night. Mild abdominal pain in the right lower quadrant Physical Exam Vital Signs: Vital Signs: Last Vital Signs Temp 97.2 F 08/05/21 07:15 Pulse 75 08/05/21 07:27 Resp 18 08/05/21 07:26 BP 113/61 08/05/21 07:27 Pulse Ox 96 08/05/21 07:15 Body Mass Index 22.1 Resp: Effort & Inspection: normal respiratory effort GI: Other: Soft, nondistended, incisions in the right lower quadrant and right flank reveal a small amount of serous fluid. No purulence discharge is noted. No surrounding erythema. Dry sterile dressings were applied. Skin: Other: Warm, dry, no rash Extrem: Other: No edema Procedures Date of Service Date of Service: 08/05/21 Progress Note: A&P Assessment and plan (1) Abdominal wall abscess: Status: Acute Assessment and Plan: Wounds continue to improve with minimal discharge noted. Patient reports he will ambulate today with physical therapy. He is anticipating discharge to home tomorrow with [facility] for wound care. Fall Risk Details Current Medications: Current Medications Acetaminophen (Acetaminophen 325 Mg Tablet) 650 mg PO Q6H PRN PRN Reason: Pain, Mild (Pain Scale 1-3) Amiodarone HCl (Amiodarone Hcl 200 Mg Tablet) 200 mg PO DAILY [facility] Last Admin: 08/05/21 07:26 Dose: 200 mg Documented by: Carvedilol (Carvedilol 6.25 Mg Tablet) 6.25 mg PO BID [facility]; Protocol Last Admin: 08/05/21 07:26 Dose: 6.25 mg Documented by: Dextrose (Dextrose 50 % 25 Gm/50 Ml Vial) 25 gm IVPUSH Q15M PRN; Protocol PRN Reason: per Hypoglycemia Standing Ord. Gemfibrozil (Gemfibrozil 600 Mg Tablet) 600 mg PO BIDAC [facility] Last Admin: 08/05/21 07:26 Dose: 600 mg Documented by: Glucose (Glucose Gel 15 Gm Gel..Gram.) 15 gm PO Q15M PRN; Protocol PRN Reason: per Hypoglycemia Standing Ord. Hydromorphone HCl (Hydromorphone Hcl 0.5 Mg/0.5 Ml Syringe) 0.5 mg IVPUSH Q3H PRN; Protocol PRN Reason: Pain, Severe (Pain Scale 7-10) Last Admin: 08/05/21 07:26 Dose: 0.5 mg Documented by: Promethazine HCl 12.5 mg/ (Sodium Chloride) 50.5 mls @ 202 mls/hr IV Q4H PRN PRN Reason: nausea Last Infusion: 08/04/21 21:28 Dose: Infused Documented by: Insulin Human Lispro (Insulin Lispro 100 Unit/Ml 3 Ml Vial) 0 unit SUBCUT QIDACHS [facility]; Protocol Last Admin: 08/05/21 07:17 Dose: Not Given Documented by: Loperamide HCl (Loperamide Hcl Oral Liquid 2 Mg/15 Ml Liquid) 2 mg PO Q6H PRN PRN Reason: diarrhea Last Admin: 07/31/21 18:23 Dose: 2 mg Documented by: Magnesium Hydroxide (Milk Of Magnesia 30 Ml Oral.Susp) 30 ml PO DAILY PRN PRN Reason: Constipation Nystatin (Nystatin Cream 15 Gm Tube) 1 appl TOPICAL BID [facility]; Protocol Last Admin: 08/05/21 07:27 Dose: 1 appl Documented by: Omeprazole (Omeprazole 20 Mg Capsule.Dr) 20 mg PO BID@0630,1630 [facility] Last Admin: 08/05/21 05:30 Dose: 20 mg Documented by: Ondansetron HCl (Ondansetron Hcl 4 Mg/2 Ml Vial) 4 mg IVPUSH Q6H PRN PRN Reason: Nausea and Vomiting Last Admin: 07/05/21 03:37 Dose: 4 mg Documented by: Pharmacy Consult (Consult Rx Perform Med Rec) 1 each MISCELLANE ONCE PRN PRN Reason: Consult order Rivaroxaban (Rivaroxaban 20 Mg Tablet) 20 mg PO DAILY@1700 [facility] Last Admin: 08/04/21 16:44 Dose: 20 mg Documented by: Sodium Chloride (0.9 % Sodium Chloride Flush 3 Ml Syringe) [facility] Last Admin: 08/05/21 07:26 Dose: 3 ml Documented by: Spironolactone (Spironolactone 25 Mg Tablet) 25 mg PO DAILY [facility]; Protocol Last Admin: 08/05/21 07:27 Dose: 25 mg Documented by: Trazodone HCl (Trazodone Hcl 50 Mg Tablet) 50 mg PO BEDTIME [facility] Last Admin: 08/04/21 20:07 Dose: 50 mg Documented by: Zolpidem Tartrate (Zolpidem Tartrate 5 Mg Tablet) 5 mg PO BEDTIME PRN PRN Reason: Insomnia Last Admin: 08/04/21 20:18 Dose: 5 mg Documented by: Time Spent With Patient Time: Total time spent is greater than 50% in coordination of care (as documented) at patient's floor/unit and/or counseling patient: Time with patient: 15 - 24 minutes Quality Stroke Does the patient have a stroke diagnosis?: No VTE Prior VTE?: No VTE Risk Level:: Surgical - moderate VTE Device Contraindication: N/A - Device Ordered VTE Drug Contraindication: N/A - Med Ordered
[2021-08-05] MEDS: Loperamide HCl Oral Liquid 2 MG/15 ML LIQUID PO (10:33)
[2021-08-05 12:28] LABS: Glucose, Whole Blood 109 mg/dL (60-115)
--- NOTE | 2021-08-05 13:10 | PC.NURSE ---
Skin assessment completed. Patient's pressure ulcers to left stump and left knee have healed. The stage 2 to his lower back is slowly healing, explained to patient he needs to lay on his sides more often to relieve the pressure. Also has a blanchable red area to his mid spine.
[2021-08-05] MEDS: Rivaroxaban 20 MG TABLET PO (15:25)
[2021-08-05 16:39] LABS: Glucose, Whole Blood 104 mg/dL (60-115)
[2021-08-05 21:02] LABS: Glucose, Whole Blood 142 mg/dL (60-115)
[2021-08-05] MEDS: Zolpidem Tartrate 5 MG TABLET PO (21:22)
[2021-08-05] MEDS: traZODone HCL 50 MG TABLET PO (21:22)
[2021-08-06] VITALS (12 sets, daily range): BP systolic 110–140; BP diastolic 57–69; PULSE 71–88; RESP 14–19; TEMP 36.1–36.9; O2SAT 95–98
[2021-08-06] MEDS: HYDROmorphone HCl 0.5 MG/0.5 ML SYRINGE IVPUSH ×8 (01:07→23:55)
[2021-08-06] MEDS: Omeprazole 20 MG CAPSULE.DR PO ×2 (05:24→16:56)
[2021-08-06 07:40] LABS: Glucose, Whole Blood 119 mg/dL (60-115)
[2021-08-06] MEDS: Amiodarone HCL 200 MG TABLET PO (08:14)
[2021-08-06] MEDS: 0.9 % Sodium Chloride Flush 3 ML SYRINGE IVFLUSH ×4 (08:14→23:56)
[2021-08-06] MEDS: gemfibroziL 600 MG TABLET PO ×2 (08:14→16:56)
[2021-08-06] MEDS: Spironolactone 25 MG TABLET PO (08:14)
[2021-08-06] MEDS: carvediloL 6.25 MG TABLET PO ×2 (08:15→21:00)
[2021-08-06] MEDS: Nystatin Cream 15 GM TUBE 1 APPL TOPICAL ×2 (08:15→21:05)
[2021-08-06] MEDS: Insulin Lispro 100 UNIT/ML 3 ML VIAL SUBCUT (11:23)
--- NOTE | 2021-08-06 11:36 | MHC.CLN ---
F/U INTAKE APPEARS VARIABLE BUT IMPROVED WITH MANY MEALS 75-100%. STAGE II TO BUTTOCKS WITH LEG WOUNDS HEALED SINCE ADMISSION.
[2021-08-06 11:59] LABS: Glucose, Whole Blood 163 mg/dL (60-115)
--- NOTE | 2021-08-06 14:20 | P.PNGS_ITS ---
Subjective Subjective Date of Service: 08/06/21 Interval history: Patient not feeling well today, feels weak and nauseous. He does not feel comfortable going home today because of the nausea. Physical Exam Vital Signs: Vital Signs: Last Vital Signs Temp 97.2 F 08/06/21 11:15 Pulse 76 08/06/21 11:15 Resp 18 08/06/21 11:23 BP 114/57 L 08/06/21 11:15 Pulse Ox 98 08/06/21 11:15 Body Mass Index 22.1 Const: General: alert, awake and tired appearing Orientation/consciousness: patient oriented x3 Limitations: no limitations Resp: Other: Breathing comfortably on room air, no respiratory distress GI: Other: Soft, nondistended, nontender, dressings changed with small amount of clear discharge on both dressings. No erythema noted. No purulence discharge with pressure on the skin. Skin: Other: Warm and dry, no rash Neuro: General: patient oriented x3 Extrem: Other: No edema Procedures Date of Service Date of Service: 08/06/21 Progress Note: A&P Assessment and plan (1) Abdominal wall abscess: Status: Acute Assessment and Plan: Patient with nausea today, does not feel comfortable going home today. Will try again tomorrow. Continue local wound care; encouraged increased p.o. intake and exercise. Fall Risk Details Current Medications: Current Medications Acetaminophen (Acetaminophen 325 Mg Tablet) 650 mg PO Q6H PRN PRN Reason: Pain, Mild (Pain Scale 1-3) Amiodarone HCl (Amiodarone Hcl 200 Mg Tablet) 200 mg PO DAILY [facility] Last Admin: 08/06/21 08:14 Dose: 200 mg Documented by: Carvedilol (Carvedilol 6.25 Mg Tablet) 6.25 mg PO BID [facility]; Protocol Last Admin: 08/06/21 08:15 Dose: 6.25 mg Documented by: Dextrose (Dextrose 50 % 25 Gm/50 Ml Vial) 25 gm IVPUSH Q15M PRN; Protocol PRN Reason: per Hypoglycemia Standing Ord. Gemfibrozil (Gemfibrozil 600 Mg Tablet) [facility] Last Admin: 08/06/21 08:14 Dose: 600 mg Documented by: Glucose (Glucose Gel 15 Gm Gel..Gram.) 15 gm PO Q15M PRN; Protocol PRN Reason: per Hypoglycemia Standing Ord. Hydromorphone HCl (Hydromorphone Hcl 0.5 Mg/0.5 Ml Syringe) 0.5 mg IVPUSH Q3H PRN; Protocol PRN Reason: Pain, Severe (Pain Scale 7-10) Last Admin: 08/06/21 11:23 Dose: 0.5 mg Documented by: Promethazine HCl 12.5 mg/ (Sodium Chloride) 50.5 mls @ 202 mls/hr IV Q4H PRN PRN Reason: nausea Last Infusion: 08/06/21 06:33 Dose: Infused Documented by: Insulin Human Lispro (Insulin Lispro 100 Unit/Ml 3 Ml Vial) 0 unit SUBCUT QIDACHS [facility]; Protocol Last Admin: 08/06/21 11:23 Dose: 2 unit Documented by: Loperamide HCl (Loperamide Hcl Oral Liquid 2 Mg/15 Ml Liquid) 2 mg PO Q6H PRN PRN Reason: diarrhea Last Admin: 08/05/21 10:33 Dose: 2 mg Documented by: Magnesium Hydroxide (Milk Of Magnesia 30 Ml Oral.Susp) 30 ml PO DAILY PRN PRN Reason: Constipation Nystatin (Nystatin Cream 15 Gm Tube) 1 appl TOPICAL BID [facility]; Protocol Last Admin: 08/06/21 08:15 Dose: 1 appl Documented by: Omeprazole (Omeprazole 20 Mg Capsule.) 20 mg PO BID@0630,1630 [facility] Last Admin: 08/06/21 05:24 Dose: 20 mg Documented by: Ondansetron HCl (Ondansetron Hcl 4 Mg/2 Ml Vial) 4 mg IVPUSH Q6H PRN PRN Reason: Nausea and Vomiting Last Admin: 07/05/21 03:37 Dose: 4 mg Documented by: Pharmacy Consult (Consult Rx Perform Med Rec) 1 each MISCELLANE ONCE PRN PRN Reason: Consult order Rivaroxaban (Rivaroxaban 20 Mg Tablet) 20 mg PO DAILY@1700 [facility] Last Admin: 08/05/21 15:25 Dose: 20 mg Documented by: Sodium Chloride (0.9 % Sodium Chloride Flush 3 Ml Syringe) 3 ml IVFLUSH QSHIFT [facility] Last Admin: 08/06/21 08:14 Dose: 3 ml Documented by: Spironolactone (Spironolactone 25 Mg Tablet) 25 mg PO DAILY [facility]; Protocol Last Admin: 08/06/21 08:14 Dose: 25 mg Documented by: Trazodone HCl (Trazodone Hcl 50 Mg Tablet) 50 mg PO BEDTIME [facility] Last Admin: 08/05/21 21:22 Dose: 50 mg Documented by: Zolpidem Tartrate (Zolpidem Tartrate 5 Mg Tablet) 5 mg PO BEDTIME PRN PRN Reason: Insomnia Last Admin: 08/05/21 21: Dose: 5 mg Documented by: Time Spent With Patient Time: Total time spent is greater than 50% in coordination of care (as documented) at patient's floor/unit and/or counseling patient: Time with patient: 15 - 24 minutes Quality Stroke Does the patient have a stroke diagnosis?: No VTE Prior VTE?: No VTE Risk Level:: Surgical - moderate VTE Device Contraindication: N/A - Device Ordered VTE Drug Contraindication: N/A - Med Ordered
[2021-08-06 16:33] LABS: Glucose, Whole Blood 137 mg/dL (60-115)
[2021-08-06] MEDS: Rivaroxaban 20 MG TABLET PO (16:56)
[2021-08-06 20:35] LABS: Glucose, Whole Blood 120 mg/dL (60-115)
[2021-08-06] MEDS: traZODone HCL 50 MG TABLET PO (21:00)
[2021-08-06] MEDS: Zolpidem Tartrate 5 MG TABLET PO (21:04)
[2021-08-07] MEDS: HYDROmorphone HCl 0.5 MG/0.5 ML SYRINGE IVPUSH ×3 (03:20→12:19)
[2021-08-07 04:00] VITALS: BP 117/69; PULSE 67; RESP 16; TEMP 36.7; O2SAT 96
[2021-08-07] MEDS: Omeprazole 20 MG CAPSULE.DR PO ×2 (06:25→16:41)
[2021-08-07 07:34] VITALS: BP 128/64; PULSE 79; RESP 18; TEMP 36.3; O2SAT 96
[2021-08-07 07:39] LABS: Glucose, Whole Blood 99 mg/dL (60-115)
[2021-08-07] MEDS: carvediloL 6.25 MG TABLET PO ×2 (08:05→20:42)
[2021-08-07] MEDS: gemfibroziL 600 MG TABLET PO ×2 (08:05→16:40)
[2021-08-07] MEDS: Amiodarone HCL 200 MG TABLET PO (08:05)
[2021-08-07] MEDS: 0.9 % Sodium Chloride Flush 3 ML SYRINGE IVFLUSH ×3 (08:06→20:43)
[2021-08-07] MEDS: Nystatin Cream 15 GM TUBE 1 APPL TOPICAL ×2 (08:06→20:43)
[2021-08-07] MEDS: Spironolactone 25 MG TABLET PO (08:08)
[2021-08-07 11:45] VITALS: BP 111/55; PULSE 78; RESP 18; TEMP 36.5; O2SAT 95
[2021-08-07 12:20] LABS: Glucose, Whole Blood 146 mg/dL (60-115)
[2021-08-07 15:33] VITALS: BP 111/56; PULSE 80; RESP 18; TEMP 36.3; O2SAT 96
[2021-08-07] MEDS: Rivaroxaban 20 MG TABLET PO (16:40)
[2021-08-07] MEDS: HYDROmorphone HCl 2 MG TABLET PO ×2 (16:41→20:42)
[2021-08-07 17:07] LABS: Glucose, Whole Blood 140 mg/dL (60-115)
[2021-08-07 19:39] VITALS: BP 129/65; PULSE 84; RESP 17; TEMP 36.3; O2SAT 95
[2021-08-07 20:23] LABS: Glucose, Whole Blood 130 mg/dL (60-115)
[2021-08-07] MEDS: traZODone HCL 50 MG TABLET PO (20:42)
[2021-08-07] MEDS: Zolpidem Tartrate 5 MG TABLET PO (20:42)
[2021-08-08] VITALS: BP 118/65; PULSE 83; RESP 16; TEMP 36.3; O2SAT 96
[2021-08-08] MEDS: HYDROmorphone HCl 2 MG TABLET PO ×4 (02:47→14:51)
[2021-08-08 04:00] VITALS: BP 115/65; PULSE 80; RESP 17; TEMP 36.4; O2SAT 95
[2021-08-08] MEDS: Omeprazole 20 MG CAPSULE.DR PO (06:24)
--- NOTE | 2021-08-08 07:42 | P.F2F_ITS ---
Service Date Service Date: 08/08/21 Encounter Date of encounter: 08/08/21 Encounter: Examination and dressing change Reasons for Services Signs and symptoms assessed: Abdominal pain and abdominal wound Reason for retirement: wound care and medication management Reason for physical therapy: home safety and mobility, therapeutic exercises and gait/transfer training Homebound: Leaving the home is medically contraindicated at this time without the asist of a device and/or another person due th the listed conditions above and below. Reason homebound: unsteady gait / fall risk, leg weakness, pain with transfers, poor balance / fall risk and weakness related to hospital stay Homebound supporting statement: Patient weaked due to a prolonged hospitalization, poor po intake due to nausea. 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 The patient is under my care, and I have initiated the establishment of the plan of care. The patient will be followed by a physician who will periodically review the plan of care.
[2021-08-08 07:51] VITALS: BP 117/65; PULSE 83; RESP 18; TEMP 36.4; O2SAT 96
[2021-08-08 07:59] LABS: Glucose, Whole Blood 124 mg/dL (60-115)
[2021-08-08] MEDS: Spironolactone 25 MG TABLET PO (09:04)
[2021-08-08] MEDS: carvediloL 6.25 MG TABLET PO (09:04)
[2021-08-08] MEDS: gemfibroziL 600 MG TABLET PO (09:04)
[2021-08-08] MEDS: 0.9 % Sodium Chloride Flush 3 ML SYRINGE IVFLUSH (09:05)
[2021-08-08] MEDS: Amiodarone HCL 200 MG TABLET PO (09:07)
[2021-08-08] MEDS: Nystatin Cream 15 GM TUBE 1 APPL TOPICAL (09:07)
[2021-08-08 10:33] VITALS: BP 117/65; PULSE 83; O2SAT 96
--- NOTE | 2021-08-08 11:07 | MHC.CM.PN ---
PT CLEARED TO DC HOME TODAY WITH [facility]UMPTION OF [facility] TO TRANSPORT
[2021-08-08 11:11] VITALS: BP 108/58; PULSE 83; RESP 18; TEMP 36.4; O2SAT 95
[2021-08-08 11:28] LABS: Glucose, Whole Blood 176 mg/dL (60-115)
[2021-08-08] MEDS: Insulin Lispro 100 UNIT/ML 3 ML VIAL SUBCUT (12:22)
--- NOTE | 2021-08-15 14:38 | P.DS_ITS ---
DS: Providers Provider Date of Service: 08/08/21 Date of admission: 07/03/21 12:29 Date of discharge: 08/08/21 Primary care physician: Connor Mcdaniel MD Admitting clinician: Navdeep Lombardo Consults: 07/03/21 14:18 Consult to Hospitalist Routine Consulting Provider: Hospitalist Reason For Exam: nausea, vomiting, med management Discharging clinician: Navdeep Lombardo DS: Diagnosis Discharge Diagnosis (1) Abdominal wall abscess: Status: Acute (2) Diabetes mellitus: Status: Acute (3) Cardiomyopathy: Status: Acute (4) Leg swelling: Status: Acute DS: Summary Hospital Course Hospital Course: Denzel Hammond JR is a 61 year old male well known to the surgical service with a prior history of perforated appendicitis with abdominal wall abscess, status post right hemicolectomy and most recently status post abdominal wall washout with drainage of retroperitoneal abscess.? He was recently discharged ap proximately 2 weeks ago and reports feeling well but then over the last several days developing increased abdominal pain in the right lower quadrant with some greenish discharge from his right lateral abdominal wall incision.? He also reports nausea and vomiting with generalized weakness.? He returned to the emergency department for further evaluation.? In the emergency department he was noted to have greenish discharge from his lateral incision.? WBC was elevated to [address] of the abdomen and pelvis however does reveal improvement of the prior abdominal wall collection.? There is still some residual air within the subcutaneous tissue but no evidence of an underlying abscess and no intra- abdominal fluid.? He is admitted to the surgical service for IV antibiotics and management of his nausea and vomiting. Patient's past history is significant for diabetes mellitus and he is status post left BKA and right transmetatarsal amputation. He was noted to have drainage from the lateral wounds which were dressed with dry sterile dressings. Incision in the right lower quadrant however was found to be well healed. He was placed on IV antibiotics and subsequently developed some nausea and vomiting associated with the antibiotics. He reported decreased appetite as well because of this. Patient is wounds seem to be improving until07/15/2021 when he began to develop redness in the right lower quadrant incision with palpable fluctuance. CT of the abdomen and pelvis was obtained which indicated an abscess in the right lower quadrant within the subcutaneous tissue. A bedside incision and drainage was performed with production of a large purulence collection. Cultures of the fluid were obtained and eventually revealed Klebsiella and Enterococcus. Antibiotics were adjusted and patient is wounds continue to improve. Packing was placed in both the lateral flank wound and the right lower quadrant incisions and daily dressing changes performed. Patient was slow to mobilize during this hospitalization although he was encouraged to ambulate on a daily basis. Patient became deconditioned because of poor appetite and nausea as well as the lack the activity. Physical therapy was involved in assisting with limb strengthening and ambulation. Over the next several weeks his wounds continue to improve on a daily basis and he improved his activity level to the point where he was able to be discharged on 08/08/2021 in stable condition. His wounds at this point were pinpoint and draining a small amount of serous material. Dry sterile dressings are being applied daily. He was discharged with [facility] for wound care. No antibiotics were needed post discharge. He will follow up my office in approximately 1 week. He was asked to call sooner for any increased in pain or problems with the incision. Time spent discussing smoking cessation with patient: 3 to 10 minutes Status at Discharge Functional status at discharge: uses cane/walker Time Spent with Patient Time attestation: Total time spent providing and/or coordinating discharge services: Discharge coordination time: Less than 30 minutes Quality: Stroke Does the patient have a stroke diagnosis?: No Physical Exam Vital Signs: Vital Signs: Last Vital Signs Temp 97.6 F 08/08/21 11:11 Pulse 83 08/08/21 11:11 Resp 18 08/08/21 11:11 BP 108/58 L 08/08/21 11:11 Pulse Ox 95 08/08/21 11:11 Body Mass Index 22.1 Const: General: cooperative and no acute distress Or ientation/consciousness: patient oriented x3 Limitations: no limitations Resp: Effort & Inspection: normal respiratory effort, no audible wheezes, no cough and no respiratory distress GI: Other: Abdominal incision with a lateral wound in the right flank and right lower quadrant incision status post incision and drainage. Both are producing a small amount of discharge on a daily basis. No surrounding erythema is appreciated. Abdomen is otherwise soft and nondistended. Redundant skin is noted in the right lower quadrant from his recent weight loss. Inspection: Yes normal to inspection Abdomen image: 1. 2. Skin: General skin exam: no rashes or lesions noted Neuro: General: patient oriented x3 Extrem: Other: Left BKA, right trans met amputation DS: Data Data Completed and Pending Completed studies during hospitalization [Text1]: Procedures Drainage of Abdomen Subcutaneous Tissue and Fascia, Open Approach (05/26/21) Drainage of Abdominal Wall with Drainage Device, Percutaneous Approach (05/26/21) Drainage of Retroperitoneum with Drainage Device, Percutaneous Approach (0 12/22/20) Drainage of Retroperitoneum, Percutaneous Endoscopic Approach (12/22/20) Drainage of Right Abdomen Muscle, Open Approach (05/26/21) Irrigation of Peritoneal Cavity using Irrigating Substance, Percutaneous Approach (05/26/21) Discharge Plan Discharge Patient Disposition: Home Health Service Discharge Diagnosis: Abdominal wall abscess Referrals: [facility] [Outside] - 1 Week Connor Mcdaniel MD [Primary Care Provider] - 1 Week Navdeep Lombardo MD [Physician] - 1 Week Discharge Medications: New hydromorphone 2 mg Tablet 2 mg PO Q4H PRN (Reason: Pain, Moderate (Pain Scale 4-6) Qty: 40 RF: 0 zolpidem 5 mg Tablet 5 mg PO BEDTIME PRN (Reason: Insomnia) Qty: 30 RF: 0 levofloxacin 500 mg tablet 500 mg PO DAILY 14 Days Qty: 14 RF: 0 promethazine 25 mg tablet 25 mg PO Q6H PRN (Reason: nausea and vomiting) Qty: 30 RF: 0 Continued carvedilol 6.25 mg Tablet 6.25 mg PO BID Qty: 60 RF: 0 amiodarone 200 mg tablet 200 mg PO DAILY RF: 0 gemfibrozil 600 mg tablet 600 mg PO BID RF: 0 trazodone 50 mg tablet 50 mg PO BEDTIME RF: 0 furosemide 40 mg tablet 40 mg PO BID RF: 0 Xarelto 20 mg tablet 1 tab PO DAILY RF: 0 omeprazole 20 mg capsule,delayed release(DR/EC) 1 cap PO BID RF: 0 spironolactone 25 mg tablet 25 mg PO DAILY RF: 0 zolpidem 10 mg tablet 10 mg PO BEDTIME RF: 0 Discontinued oxycodone 5 mg tablet 5 mg PO Q4H PRN (Reason: pain) Qty: 30 RF: 0 Discharge Orders: Discharge Order (Routine); Ordered 08/08/21 Ordered By: Navdeep Lombardo Diet: advance to usual diet Activity on Discharge: As tolerated Stand Alone Forms: Patient Portal Discharge page Activity Restrictions/Additional Instructions: Wound care instructions: Apply lotion to left leg down to stump. Cleanse Stage 2 pressure ulcer on lower back with wound cleanser then apply Triad to wound bed of ulcer cover with small non woven gauze then foam dressing. Apply nystatin cream to groin and scrotum. Dry dressings to abdominal wounds daily Care Plan Goals: wall abscess resolution Health Concerns: abdominal wall abscess Plan of Treatment: local wound care Assessment: Abdominal wall abscess Discharge Date/Time: 08/08/21 16:15
== END 2021-08-08 16:15 | disposition home health service (06) | DRG 580 ==
LOC: HO.ED 12:35 → HO.EDOVER 12:49 → HO.S3 14:21
PROVIDERS: Internal Medicine; Admitting Provider Surgery; Emergency Provider Internal Medicine; PCP Internal Medicine; Visit Provider Surgery
DX: L02.211 Cutaneous abscess of abdominal wall (principal); I50.42 Chronic combined systolic (congestive) and diastolic (congestive) heart failure; E44.1 Mild protein-calorie malnutrition; I25.5 Ischemic cardiomyopathy; I48.0 Paroxysmal atrial fibrillation; L89.102 Pressure ulcer of unspecified part of back, stage 2; Z20.822 Contact with and (suspected) exposure to COVID-19; E11.9 Type 2 diabetes mellitus without complications; S81.802A Unspecified open wound, left lower leg, initial encounter; X58.XXXA Exposure to other specified factors, initial encounter; Y92.009 Unspecified place in unspecified non-institutional (private) residence as the place of occurrence of the external cause; Z86.718 Personal history of other venous thrombosis and embolism; Z89.512 Acquired absence of left leg below knee; Z68.22 Body mass index [BMI] 22.0-22.9, adult; Z79.891 Long term (current) use of opiate analgesic; Z79.01 Long term (current) use of anticoagulants; Z79.899 Other long term (current) drug therapy
CPT/HCPCS: 36415; 74176; 74177; 80048; 80053; 82947; 83605; 83735; 85025; 85027; 87040; 87071; 87077; 87186; 87205; 87493; 87635; 93005; 96361; 96374; 96375; 97110; 97116; 97162; 99024; 99285; J1170; J1956; J2405; J2543; J2550; Q9967

== ENCOUNTER → 2021-09-16 10:21 | Outpatient (BNVA) | payer MEDICARE, SELFPAY | PROVIDERS: PCP Internal Medicine; Referring Provider Internal Medicine; Visit Provider Surgery | DX: L02.211 Cutaneous abscess of abdominal wall (principal) | CPT/HCPCS: 99212 ==

== ENCOUNTER → 2021-10-17 10:07 | Outpatient (BNVA) | payer MEDICARE, SELFPAY | PROVIDERS: PCP Internal Medicine; Referring Provider Internal Medicine; Visit Provider Surgery | DX: Z09 Encounter for follow-up examination after completed treatment for conditions other than malignant neoplasm (principal); Z87.2 Personal history of diseases of the skin and subcutaneous tissue | CPT/HCPCS: 99212 ==

== ENCOUNTER → 2022-02-24 14:16 | Outpatient (BNVA) | payer MEDICARE, SELFPAY | PROVIDERS: PCP Internal Medicine; Referring Provider Internal Medicine; Visit Provider Internal Medicine Cardiovascular Disease | DX: I25.5 Ischemic cardiomyopathy (principal); I50.20 Unspecified systolic (congestive) heart failure; I48.0 Paroxysmal atrial fibrillation | CPT/HCPCS: 93005; 99212 ==

== ENCOUNTER → 2022-04-07 14:30 | Outpatient (BNVA) | payer MEDICARE, SELFPAY | PROVIDERS: PCP Internal Medicine; Referring Provider Internal Medicine; Visit Provider Nurse Practitioner Family | DX: I25.10 Atherosclerotic heart disease of native coronary artery without angina pectoris (principal); I25.5 Ischemic cardiomyopathy; I50.20 Unspecified systolic (congestive) heart failure; I48.0 Paroxysmal atrial fibrillation; Z79.01 Long term (current) use of anticoagulants; Z98.890 Other specified postprocedural states | CPT/HCPCS: 93005; 99212 ==

== ENCOUNTER 2022-05-26 10:47 | Inpatient (IN) | payer MEDICARE, SELFPAY ==
[2022-05-26] VITALS (26 sets, daily range): BP systolic 70–133; BP diastolic 34–47; PULSE 62–85; RESP 12–20; TEMP 35.9–37.2; O2SAT 93–100; BMI 24.9
--- NOTE | ~2022-05-26 | XR_ITS ---
EXAMINATION: XR CHEST CLINICAL INFORMATION: Leukocytosis COMPARISON: Previous chest x-ray March 2021 TECHNIQUE: Frontal view of the chest was obtained. FINDINGS: No significant abnormality is noted involving the heart, lungs, mediastinum, bony thorax or soft tissues. XR/XR chest 1V IMPRESSION: Unremarkable examination.
--- NOTE | ~2022-05-26 | CT_ITS ---
EXAMINATION: CT ABDOMEN AND PELVIS WITHOUT CONTRAST CLINICAL INFORMATION: Elevated white blood cell count and vomiting COMPARISON: Previous CT of the abdomen and pelvis most recent July 2021 TECHNIQUE: Multidetector volumetric imaging was performed from the superior aspect of the liver through the pubic symphysis. Sagittal and coronal reformatted images were obtained on the technologist's workstation. This CT examination was performed using dose optimization techniques as appropriate, variously including the following: *Automated exposure control *Adjustment of mA and/or kV according to patient size (this includes techniques or standardized protocols for targeted exams where dose is matched to indication/reason for exam; i.e. extremities or head) *Use of iterative reconstruction technique DLP: 839 mGy-cm FINDINGS: LUNG BASES: There is a small chronic-appearing right pleural effusion and scarring or atelectasis of the adjacent right lower lobe. The lung bases are otherwise clear. LIVER, GALLBLADDER, AND BILIARY TREE: The liver is normal in size, shape, and attenuation. No focal hepatic lesion or biliary ductal dilatation is present. The gallbladder has been removed. PANCREAS: Unremarkable. SPLEEN: Unremarkable. ADRENAL GLANDS: Stable 2 cm low-attenuation left adrenal lesion probably representing an adenoma. Normal right adrenal gland. 3 x 4 cm right renal cyst. Bilateral perinephric stranding. KIDNEYS AND URETERS: The kidneys are normal in size, shape, and attenuation. No hydronephrosis, hydroureter, or calculi seen. No perinephric stranding. BLADDER: Unremarkable. GASTROINTESTINAL TRACT: Diverticulosis of the colon. There is a long segment wall thickening of the distal left colon and sigmoid colon and it is difficult to exclude mild sigmoid diverticulitis. The more proximal colon is slightly distended and fluid-filled. Small bowel is slightly distended fluid-filled. There are postsurgical changes to the cecum. The appendix appears to have been removed. Question of mild wall thickening in the proximal stomach. Small amount of ascitic fluid adjacent to the right lateral abdominal wall inferior to the liver. No generalized ascites. ABDOMINAL WALL: Postsurgical changes to the right lateral abdominal wall. No hernia. No focal abdominal wall collection/abscess. LYMPH NODES: Normal. VASCULAR: Atherosclerotic disease. No aneurysm. PELVIC VISCERA: Unremarkable. OSSEOUS STRUCTURES: Osteopenia and degenerative changes of the spine. CT/CT abdomen pelvis wo con IMPRESSION: Diverticulosis of the colon. Mild bowel wall thickening of the distal left colon and sigmoid colon questionable for colitis or diverticulitis. The more proximal colon and distal small bowel are slightly distended and fluid-filled. Question mild wall thickening of the proximal stomach. Fleischner guidelines were followed.
--- NOTE | ~2022-05-26 | XR_ITS ---
EXAMINATION: XR CHEST CLINICAL INFORMATION: Line placement COMPARISON: 05/26/2022 1:00 PM and priors TECHNIQUE: AP portable upright (time stamp 4:56 PM) view of the chest was obtained. FINDINGS: Right IJ central venous catheter with tip projecting 2 cm below the expected level of the cavoatrial junction. No pneumothorax. Persistent elevation of the right diaphragm with reduced lung volume on the right. No lobar atelectasis. Persistent Central increase in lung markings consistent with bronchial wall thickening. Right upper lobe pulmonary nodule visualized on recent CT not visible on plain radiography. Chest CT required in follow-up. XR/XR chest 1V IMPRESSION: Right IJ central venous catheter tip projects 2 cm below the level of the cavoatrial junction. Airways disease. Right lung nodule not visible on plain radiography. Follow with CT.
--- NOTE | 2022-05-26 11:12 | ECG_ITS ---
Test Reason : n/v Blood Pressure : / mmHG Vent. Rate : 064 BPM Atrial Rate : 064 BPM P-R Int : 200 ms QRS Dur : 148 ms QT Int : 486 ms P-R-T Axes : 027 -61 081 degrees QTc Int : 501 ms Normal sinus rhythm Left axis deviation Non-specific intra-ventricular conduction block Minimal voltage criteria for LVH, may be normal variant ( Joey product ) Possible Lateral infarct (cited on or before 19-MAR-2019) Inferior infarct (cited on or before 19-MAR-2019) Abnormal ECG When compared with ECG of 05-JUL-2021 06:23, QRS duration has increased Criteria for Anteroseptal infarct are no longer Present Questionable change in initial forces of Lateral leads Nonspecific T wave abnormality no longer evident in Lateral leads Referred By: Phylicia Mercado Electronically Signed By:CYDNEY HERNANDEZ MD
--- NOTE | 2022-05-26 11:13 | ED_ITS ---
HPI - General Adult General Chief complaint: Nausea/Vomiting/Diarrhea Stated complaint: N/V X'S 4 DAYS Time Seen by Provider: 05/26/22 11:02 Source: patient and EMS Mode of arrival: EMS Limitations: no limitations History of Present Illness HPI narrative: Patient comes to the emergency room complaining of weakness, vomiting for 4 days. Patient states he has had 1 episode of diarrhea. Patient denies fever chills, no chest pain no abdominal pain. Related Data Home Medications Medication Instructions Recorded Confirmed amiodarone 200 mg tablet 200 mg PO DAILY 05/07/21 05/26/22 spironolactone 25 mg tablet 25 mg PO DAILY 05/07/21 05/26/22 omeprazole 20 mg capsule,delayed 1 cap PO BID 07/03/21 05/26/22 release valsartan 80 mg tablet 80 mg PO DAILY 02/24/22 05/26/22 aspirin 81 mg tablet,delayed 81 mg PO DAILY 04/07/22 05/26/22 release (Adult Low Dose Aspirin) furosemide 40 mg tablet 40 mg PO BID 04/07/22 05/26/22 multivitamin 1 tab PO DAILY 04/07/22 05/26/22 rivaroxaban 20 mg tablet (Xarelto) 20 mg PO DAILY 04/07/22 05/26/22 zolpidem 10 mg tablet 10 mg PO BEDTIME PRN Sleep 04/07/22 05/26/22 gemfibrozil 600 mg tablet 600 mg PO BID 05/26/22 05/26/22 Previous Rx's Medication Instructions Recorded carvedilol 6.25 mg tablet 6.25 mg PO BID #60 tabs 04/10/21 Allergies Allergy/AdvReac Type Severity Reaction Status Date / Time vancomycin [VANCOMYCIN] Allergy Severe STOMACH Verified 04/07/22 14:32 UPSET, ill Review of Systems Review of Systems: Constitutional : No Weight loss, No Fever, No Chills, No Night Sweats, Complaining of fatigue, generalized malaise ENT/Mouth : No Hearing loss, No Ear Pain, No Nasal Congestion, No Sinus Pain, No Hoarseness, No sore throat, No Rhinorrhea, No Swallowing Difficulty Eyes: No Eye Pain, No Swelling, No Redness, No Foreign Body, No Discharge, No Vision Changes Cardiovascular : No Chest Pain, No SOB, No Dyspnea on Exertion, No Orthopnea, No Edema, No Palpitations Respiratory : No Cough, No Sputum, No Wheezing, No Smoke Exposure, No Dyspnea Gastrointestinal : planning of nausea and vomit, one episode of Diarrhea, No Constipation, No abdominal Pain, No Hematochezia, No Melena Genitourinary : no irregular bleeding, No Dysuria, No Urinary Frequency, No Hematuria, No Urinary Incontinence, No Urgency, No Flank Pain, No Urinary Flow Changes, No Hesitancy Musculoskeletal : No joint pain, No Myalgias, No Joint Swelling Skin : complaining of sacral pain, pressure ulcer Neuro : No Weakness, No Numbness, No Paresthesias, No Loss of Consciousness, No Dizziness, No Headache Psych : No Anxiety/Panic, No Depression, No SI/HI/AH/VH, No Social Issues, Heme/Lymph: No Bruising, No Bleeding,No Lymphadenopathy Endocrine : No Polyuria, No Polydipsia, No Temperature Intolerance FORMERLY [facility] Past Medical History Medical History Abdominal wall abscess Acute appendicitis CVA (cerebral vascular accident) Diabetes Diabetes mellitus Heart disease Heart failure with reduced ejection fraction Heart failure with reduced ejection fraction History of left below knee amputation HTN (hypertension) Ischemic cardiomyopathy Paroxysmal atrial fibrillation Surgical History H/O exploratory laparotomy H/O right hemicolectomy History of transmetatarsal amputation of right foot Hx of cholecystectomy Family History Family History Father Stroke Aortic valve replaced Mother No problems noted. Social History Social History Household Members: Family Household Members Other:: Mother- takes care of her Housing: House Do you presently have visiting nurse or other home services: No Alcohol intake: former Patient Tobacco Use Status: Former Tobacco user Use of substances other than those prescribed or required for medical reasons: No Advance Directives: Yes Advance Directives on File: Yes Advance Directives Date on File: 01/06/21 service: No Current occupational status: retired and disabled Physical Exam ED Vital Signs: Vital Signs - 24 hr 05/26/22 10:54 05/26/22 11:38 05/26/22 11:48 Temperature 96.6 F L Pulse Rate 67 64 62 Respiratory Rate 18 20 Blood Pressure 85/43 L 78/36 L 87/37 L Pulse Oximetry 97 Oxygen Delivery Method Room Air Oxygen Flow Rate 05/26/22 13:06 05/26/22 12:11 05/26/22 13:32 Temperature Pulse Rate 65 65 64 Respiratory Rate 20 Blood Pressure 80/36 L 88/38 L 84/37 L Pulse Oximetry 100 100 Oxygen Delivery Method Room Air Room Air Oxygen Flow Rate 05/26/22 14:07 05/26/22 14:18 05/26/22 14:25 Temperature Pulse Rate 67 67 62 Respiratory Rate 14 20 Blood Pressure 95/35 L 97/39 L 97/39 L Pulse Oximetry 100 99 Oxygen Delivery Method Room Air Room Air Oxygen Flow Rate 05/26/22 15:20 05/26/22 16:17 Temperature Pulse Rate 66 66 Respiratory Rate 18 Blood Pressure 78/34 L 83/36 L Pulse Oximetry Oxygen Delivery Method Room Air Oxygen Flow Rate 99 BMI result Body Mass Index 24.9 Const Other: Appearance: Alert. Oriented X3. No acute distress. seems weak Eyes: Pupils equal, round and reactive to light. ENT: Pharynx normal. Neck: Normal inspection. Neck supple. No lymph nodes noted. No crepitus CVS: Normal heart rate and rhythm. Pulses normal. Normal S1 and S2 Respiratory: No respiratory distress. Breath sounds normal. No Wheezing. No rales Abdomen: Soft and nontender. No rigidity. No distention. Skin: Skin warm and dry. patient has stage II ulcer in the sacrum, see picture below Extremities: No lower extremity edema. No Lacerations. No Rash Neuro: Oriented X 3. No motor deficit. No sensory deficit. Moving all extremities. No slurred speech. CN 2 through 12 grossly intact Psych: calm, cooperative, normal affect Course Course Course Narrative: this time, patient does not seem fluid overloaded, patient does have history of CHF. However, patient's initial blood pressure per EMS was in the 70s, on arrival to the hospital 85 systolic. Patient receiving IV fluids and Zofran. All the labs are pending. 13:33, patient's blood pressure remains in the mid 80s despite 2 L of normal saline, patient will be receiving 1 more L of normal saline. CT scan pending, chest x-ray pending, urinalysis negative. Lactic acid within normal limits, no fever. At this time, sepsis is not suspected, it is likely that patient is dehydrated from vomiting , same reason the creatinine is elevated. Which could be from a viral infection. 13:47, CT scan shows possible /questionable colitis. Patient will be empirically covered with levofloxacin and metronidazole. Patient does not have any abdominal pain. Chest x-ray does not seem to have any infiltrates, radiology report pending. At this time, 3 L of fluid running. Patient's blood pressure in the mid 80s, it is likely that patient will need pressors, At this time, it is unclear if patient has a source of infection or this is just dehydration. guaiac test is positive for occult blood guaiac test is positive for cold blood, patient takes Xarelto for atrial fibrillation respiratory therapy attempted to get an arterial blood gas, however due to patient's low blood pressure, they were unable to get any arterial blood troponin is 40.4, no EKG changes, patient does not have any chest pain. after 3 L of fluid, patient's blood pressure initially increased to 95 sy stolic. However, shortly after the blood pressure decreased to 78 systolic. The blood pressure was retaken manually, it is accurate. I discussed with the patient that he will need a central line and pressors. Patient agrees with plan. 15:35, I discussed the patient with Dr. Rodríguez. At this time, it does not seem that the patient is septic. However, we will administer 1 dose of Feng-Synephri ne, if that works, patient will not need a central line. If the blood pressure does not improve, he will need a central line. Patient admitted to the ICU. Procedures Central Line Placement Right IJ: Time Out Performed: Yes Patient Placed on Monitor/Pulse Ox: Yes MD Prep: mask, gown and gloves Central Line Prep: Chlorhexidine scrub Local Anesthetic: lidocaine 1% Amount of anesthesia used (mL): 5 Ultrasound Used for Placement: Yes Post Procedure: sutured in place, good blood return, all ports aspirated, flushed, capped and sterile dressing applied Post Procedure X-Ray: tip of catheter in good position and no pneumothorax seen Patient Tolerated Procedure: well and no complications Complications: none Medical Decision Making Lab Data Result diagrams: 05/26/22 11:23 05/26/22 14:36 Labs: Lab Results 05/26/22 05/26/22 05/26/22 Range/Units 11:23 11:23 11:23 WBC 24.1 H (4.8-10.8) X10*3/uL RBC 2.98 L (4.60-5.80) X10*6/uL Hgb 8.9 L (14.0-18.0) g/dl Hct 24.9 L (42.0-52.0) % MCV 83.6 (80.0-98.0) fL MCH 29.9 (27.0-33.0) pg MCHC 35.7 (31.0-36.0) g/dl RDW 14.0 (11.0-16.0) % Plt Count 163 (160-400) X10*3/uL MPV 10.3 (9.4-12.4) fL Immature Gran % (Auto) 0.7 H (0.0-0.4) % Neut % (Auto) 94.3 H (45-73) % Lymph % (Auto) 0.8 L (20-40) % [place] % (Auto) 2.8 (2-11) % Eos % (Auto) 1.3 (0-4) % Baso % (Auto) 0.1 (0-2) % Lymph # (Auto) 0.2 L (1.2-4.9) X10*3/uL [place] # (Auto) 0.7 (0.1-1.2) X10*3/uL Eos # (Auto) 0.3 (0.0-0.4) X10*3/uL Baso # (Auto) 0.0 (0.0-0.2) X10*3/uL Abs Immat Gran (auto) 0.18 H (0.00-0.03) X10*3/uL Absolute Neuts (auto) 22.7 H (2.0-8.3) x10*3/uL Absolute Nucleated RBC 0.000 (0.0-0.012) X10*3/uL Nucleated RBC % (auto) 0.0 (0.0-0.2) /100WBC Smear Tech's Comments VERIFIED PT 13.0 (10.0-13.1) SEC INR 1.1 (0.9-1.1) O2 Saturation % ABG pH at Pt Temp (7.35-7.45) ABG pCO2 at Pt Temp (32-45) mmHg ABG pO2 at Pt Temp (83-108) mmHg ABG HCO3 (22-26) mmol/L ABG Base Excess (Actual) mmol/L Sodium 125 L (135-145) mmol/L Potassium 5.0 (3.3-5.1) mmol/L Chloride 91 L (96-108) mmol/L Carbon Dioxide 10 L* D (22-29) mmol/L Anion Gap 29 H (12-20) BUN 172 H (9-16) mg/dL Creatinine 4.16 H* (0.5-1.4) mg/dL Estim Creat Clear Calc 21.7 Estimated GFR 15 Random Glucose 73 D (60-115) mg/dL Lactic Acid (0.5-2.0) mmol/L Calcium 7.9 L (8.4-10.2) mg/dL Magnesium 2.3 (1.6-2.6) mg/dL Total Bilirubin 0.4 (0.0-1.0) mg/dL Direct Bilirubin 0.2 (0.0-0.5) mg/dL AST 24 D (5-37) U/L ALT 21 (0-40) U/L Alkaline Phosphatase 128 H (39-117) U/L Troponin I High Sens (<3.5-35.0) ng/L B-Natriuretic Peptide (<100) pg/mL Total Protein 7.2 (6.5-8.0) g/dL Albumin 4.1 D (3.5-5.0) g/dL Lipase 30 (8-78) U/L Urine Color Urine Appearance Urine pH (5.0-8.0) Ur Specific [employer] (1.005-1.025) Urine Protein (NEG-TRACE) MG/DL Urine Glucose (UA) (NEG) MG/DL Urine Ketones (NEG) MG/DL Urine Blood (NEG) Urine Nitrite (NEG) Ur Leukocyte Esterase (NEG) Urine RBC (0) /HPF Urine WBC (0-4) /HPF Ur Squamous Epith Cells /LPF Amorphous Sediment /LPF Urine Bacteria /LPF Stool Occult Blood (NEGATIVE) Salicylates (15-30) mg/dL Acetaminophen (<30) mcg/mL Ethyl Alcohol mg/dL COVID-19 (CAROLINE) (Negative) COVID-19 Clin Com 05/26/22 05/26/22 05/26/22 Range/Units 11:23 11:23 11:34 WBC (4.8-10.8) X10*3/uL RBC (4.60-5.80) X10*6/uL Hgb (14.0-18.0) g/dl Hct (42.0-52.0) % MCV (80.0-98.0) fL MCH (27.0-33.0) pg MCHC (31.0-36.0) g/dl RDW (11.0-16.0) % Plt Count (160-400) X10*3/uL MPV (9.4-12.4) fL Immature Gran % (Auto) (0.0-0.4) % Neut % (Auto) (45-73) % Lymph % (Auto) (20-40) % [place] % (Auto) (2-11) % Eos % (Auto) (0-4) % Baso % (Auto) (0-2) % Lymph # (Auto) (1.2-4.9) X10*3/uL [place] # (Auto) (0.1-1.2) X10*3/uL Eos # (Auto) (0.0-0.4) X10*3/uL Baso # (Auto) (0.0-0.2) X10*3/uL Abs Immat Gran (auto) (0.00-0.03) X10*3/uL Absolute Neuts (auto) (2.0-8.3) x10*3/uL Absolute Nucleated RBC (0.0-0.012) X10*3/uL Nucleated RBC % (auto) (0.0-0.2) /100WBC Smear Tech's Comments PT (10.0-13.1) SEC INR (0.9-1.1) O2 Saturation % ABG pH at Pt Temp (7.35-7.45) ABG pCO2 at Pt Temp (32-45) mmHg ABG pO2 at Pt Temp (83-108) mmHg ABG HCO3 (22-26) mmol/L ABG Base Excess (Actual) mmol/L Sodium (135-145) mmol/L Potassium (3.3-5.1) mmol/L Chloride (96-108) mmol/L Carbon Dioxide (22-29) mmol/L Anion Gap (12-20) BUN (9-16) mg/dL Creatinine (0.5-1.4) mg/dL Estim Creat Clear Calc Estimated GFR Random Glucose (60-115) mg/dL Lactic Acid 0.7 (0.5-2.0) mmol/L Calcium (8.4-10.2) mg/dL Magnesium (1.6-2.6) mg/dL Total Bilirubin (0.0-1.0) mg/dL Direct Bilirubin (0.0-0.5) mg/dL AST (5-37) U/L ALT (0-40) U/L Alkaline Phosphatase (39-117) U/L Troponin I High Sens 40.4 H (<3.5-35.0) ng/L B-Natriuretic Peptide 100 (<100) pg/mL Total Protein (6.5-8.0) g/dL Albumin (3.5-5.0) g/dL Lipase (8-78) U/L Urine Color Urine Appearance Urine pH (5.0-8.0) Ur Specific [employer] (1.005-1.025) Urine Protein (NEG-TRACE) MG/DL Urine Glucose (UA) (NEG) MG/DL Urine Ketones (NEG) MG/DL Urine Blood (NEG) Urine Nitrite (NEG) Ur Leukocyte Esterase (NEG) Urine RBC (0) /HPF Urine WBC (0-4) /HPF Ur Squamous Epith Cells /LPF Amorphous Sediment /LPF Urine Bacteria /LPF Stool Occult Blood (NEGATIVE) Salicylates (15-30) mg/dL Acetaminophen (<30) mcg/mL Ethyl Alcohol mg/dL COVID-19 (CAROLINE) Negative (Negative) COVID-19 Clin Com See Note 05/26/22 05/26/22 05/26/22 Range/Units 11:50 12:38 14:20 WBC (4.8-10.8) X10*3/uL RBC (4.60-5.80) X10*6/uL Hgb (14.0-18.0) g/dl Hct (42.0-52.0) % MCV (80.0-98.0) fL MCH (27.0-33.0) pg MCHC (31.0-36.0) g/dl RDW (11.0-16.0) % Plt Count (160-400) X10*3/uL MPV (9.4-12.4) fL Immature Gran % (Auto) (0.0-0.4) % Neut % (Auto) (45-73) % Lymph % (Auto) (20-40) % [place] % (Auto) (2-11) % Eos % (Auto) (0-4) % Baso % (Auto) (0-2) % Lymph # (Auto) (1.2-4.9) X10*3/uL [place] # (Auto) (0.1-1.2) X10*3/uL Eos # (Auto) (0.0-0.4) X10*3/uL Baso # (Auto) (0.0-0.2) X10*3/uL Abs Immat Gran (auto) (0.00-0.03) X10*3/uL Absolute Neuts (auto) (2.0-8.3) x10*3/uL Absolute Nucleated RBC (0.0-0.012) X10*3/uL Nucleated RBC % (auto) (0.0-0.2) /100WBC Smear Tech's Comments PT (10.0-13.1) SEC INR (0.9-1.1) O2 Saturation 98.0 % ABG pH at Pt Temp 7.17 L* (7.35-7.45) ABG pCO2 at Pt Temp 21 L (32-45) mmHg ABG pO2 at Pt Temp 124 H (83-108) mmHg ABG HCO3 8 L (22-26) mmol/L ABG Base Excess (Actual) -18.3 mmol/L Sodium (135-145) mmol/L Potassium (3.3-5.1) mmol/L Chloride (96-108) mmol/L Carbon Dioxide (22-29) mmol/L Anion Gap (12-20) BUN (9-16) mg/dL Creatinine (0.5-1.4) mg/dL Estim Creat Clear Calc Estimated GFR Random Glucose (60-115) mg/dL Lactic Acid (0.5-2.0) mmol/L Calcium (8.4-10.2) mg/dL Magnesium (1.6-2.6) mg/dL Total Bilirubin (0.0-1.0) mg/dL Direct Bilirubin (0.0-0.5) mg/dL AST (5-37) U/L ALT (0-40) U/L Alkaline Phosphatase (39-117) U/L Troponin I High Sens (<3.5-35.0) ng/L B-Natriuretic Peptide (<100) pg/mL Total Protein (6.5-8.0) g/dL Albumin (3.5-5.0) g/dL Lipase (8-78) U/L Urine Color YELLOW Urine Appearance CLEAR Urine pH 5.5 (5.0-8.0) Ur Specific [employer] 1.020 (1.005-1.025) Urine Protein 1+ H (NEG-TRACE) MG/DL Urine Glucose (UA) NEG (NEG) MG/DL Urine Ketones NEG (NEG) MG/DL Urine Blood NEG (NEG) Urine Nitrite NEG (NEG) Ur Leukocyte Esterase NEG (NEG) Urine RBC 0 (0) /HPF Urine WBC 0-2 (0-4) /HPF Ur Squamous Epith Cells TRACE /LPF Amorphous Sediment 3+ /LPF Urine Bacteria TRACE /LPF Stool Occult Blood POSITIVE (NEGATIVE) Salicylates (15-30) mg/dL Acetaminophen (<30) mcg/mL Ethyl Alcohol mg/dL COVID-19 (CAROLINE) (Negative) COVID-19 Clin Com 05/26/22 05/26/22 05/26/22 Range/Units 14:36 14:36 14:36 WBC (4.8-10.8) X10*3/uL RBC (4.60-5.80) X10*6/uL Hgb (14.0-18.0) g/dl Hct (42.0-52.0) % MCV (80.0-98.0) fL MCH (27.0-33.0) pg MCHC (31.0-36.0) g/dl RDW (11.0-16.0) % Plt Count (160-400) X10*3/uL MPV (9.4-12.4) fL Immature Gran % (Auto) (0.0-0.4) % Neut % (Auto) (45-73) % Lymph % (Auto) (20-40) % [place] % (Auto) (2-11) % Eos % (Auto) (0-4) % Baso % (Auto) (0-2) % Lymph # (Auto) (1.2-4.9) X10*3/uL [place] # (Auto) (0.1-1.2) X10*3/uL Eos # (Auto) (0.0-0.4) X10*3/uL Baso # (Auto) (0.0-0.2) X10*3/uL Abs Immat Gran (auto) (0.00-0.03) X10*3/uL Absolute Neuts (auto) (2.0-8.3) x10*3/uL Absolute Nucleated RBC (0.0-0.012) X10*3/uL Nucleated RBC % (auto) (0.0-0.2) /100WBC Smear Tech's Comments PT (10.0-13.1) SEC INR (0.9-1.1) O2 Saturation % ABG pH at Pt Temp (7.35-7.45) ABG pCO2 at Pt Temp (32-45) mmHg ABG pO2 at Pt Temp (83-108) mmHg ABG HCO3 (22-26) mmol/L ABG Base Excess (Actual) mmol/L Sodium 126 L (135-145) mmol/L Potassium 4.8 (3.3-5.1) mmol/L Chloride 98 (96-108) mmol/L Carbon Dioxide 9 L* (22-29) mmol/L Anion Gap 24 H (12-20) BUN 163 H (9-16) mg/dL Creatinine 3.74 H (0.5-1.4) mg/dL Estim Creat Clear Calc 24.1 Estimated GFR 16 Random Glucose 73 (60-115) mg/dL Lactic Acid (0.5-2.0) mmol/L Calcium 6.8 L D (8.4-10.2) mg/dL Magnesium (1.6-2.6) mg/dL Total Bilirubin (0.0-1.0) mg/dL Direct Bilirubin (0.0-0.5) mg/dL AST (5-37) U/L ALT (0-40) U/L Alkaline Phosphatase (39-117) U/L Troponin I High Sens 37.0 H (<3.5-35.0) ng/L B-Natriuretic Peptide (<100) pg/mL Total Protein (6.5-8.0) g/dL Albumin (3.5-5.0) g/dL Lipase (8-78) U/L Urine Color Urine Appearance Urine pH (5.0-8.0) Ur Specific [employer] (1.005-1.025) Urine Protein (NEG-TRACE) MG/DL Urine Glucose (UA) (NEG) MG/DL Urine Ketones (NEG) MG/DL Urine Blood (NEG) Urine Nitrite (NEG) Ur Leukocyte Esterase (NEG) Urine RBC (0) /HPF Urine WBC (0-4) /HPF Ur Squamous Epith Cells /LPF Amorphous Sediment /LPF Urine Bacteria /LPF Stool Occult Blood (NEGATIVE) Salicylates < 5.0 L (15-30) mg/dL Acetaminophen < 1 (<30) mcg/mL Ethyl Alcohol < 10 mg/dL COVID-19 (CAROLINE) (Negative) COVID-19 Clin Com 05/26/22 Range/Units 14:41 WBC (4.8-10.8) X10*3/uL RBC (4.60-5.80) X10*6/uL Hgb (14.0-18.0) g/dl Hct (42.0-52.0) % MCV (80.0-98.0) fL MCH (27.0-33.0) pg MCHC (31.0-36.0) g/dl RDW (11.0-16.0) % Plt Count (160-400) X10*3/uL MPV (9.4-12.4) fL Immature Gran % (Auto) (0.0-0.4) % Neut % (Auto) (45-73) % Lymph % (Auto) (20-40) % [place] % (Auto) (2-11) % Eos % (Auto) (0-4) % Baso % (Auto) (0-2) % Lymph # (Auto) (1.2-4.9) X10*3/uL [place] # (Auto) (0.1-1.2) X10*3/uL Eos # (Auto) (0.0-0.4) X10*3/uL Baso # (Auto) (0.0-0.2) X10*3/uL Abs Immat Gran (auto) (0.00-0.03) X10*3/uL Absolute Neuts (auto) (2.0-8.3) x10*3/uL Absolute Nucleated RBC (0.0-0.012) X10*3/uL Nucleated RBC % (auto) (0.0-0.2) /100WBC Smear Tech's Comments PT (10.0-13.1) SEC INR (0.9-1.1) O2 Saturation % ABG pH at Pt Temp (7.35-7.45) ABG pCO2 at Pt Temp (32-45) mmHg ABG pO2 at Pt Temp (83-108) mmHg ABG HCO3 (22-26) mmol/L ABG Base Excess (Actual) mmol/L Sodium (135-145) mmol/L Potassium (3.3-5.1) mmol/L Chloride (96-108) mmol/L Carbon Dioxide (22-29) mmol/L Anion Gap (12-20) BUN (9-16) mg/dL Creatinine (0.5-1.4) mg/dL Estim Creat Clear Calc Estimated GFR Random Glucose (60-115) mg/dL Lactic Acid (0.5-2.0) mmol/L Calcium (8.4-10.2) mg/dL Magnesium (1.6-2.6) mg/dL Total Bilirubin (0.0-1.0) mg/dL Direct Bilirubin (0.0-0.5) mg/dL AST (5-37) U/L ALT (0-40) U/L Alkaline Phosphatase (39-117) U/L Troponin I High Sens (<3.5-35.0) ng/L B-Natriuretic Peptide (<100) pg/mL Total Protein (6.5-8.0) g/dL Albumin (3.5-5.0) g/dL Lipase (8-78) U/L Urine Color Urine Appearance Urine pH (5.0-8.0) Ur Specific [employer] (1.005-1.025) Urine Protein (NEG-TRACE) MG/DL Urine Glucose (UA) (NEG) MG/DL Urine Ketones (NEG) MG/DL Urine Blood (NEG) Urine Nitrite (NEG) Ur Leukocyte Esterase (NEG) Urine RBC (0) /HPF Urine WBC (0-4) /HPF Ur Squamous Epith Cells /LPF Amorphous Sediment /LPF Urine Bacteria /LPF Stool Occult Blood (NEGATIVE) Salicylates (15-30) mg/dL Acetaminophen (<30) mcg/mL Ethyl Alcohol Cancelled mg/dL COVID-19 (CAROLINE) (Negative) COVID-19 Clin Com Critical Care Time Critical Care Time Critical Care Time: Yes Total Critical Care Time: 120 Attestation: I have personally provided critical care time. Time includes review of lab data, radiology results, discussion with consultants, and monitoring for potential decompensation. Intervention performed as documented. Discharge Plan Discharge Clinical Impression: Vomiting, Acute hyponatremia, Acute kidney injury, Occult GI bleeding, Metabolic acidosis Patient Disposition: Admitted As Inpatient
[2022-05-26 11:32] LABS: Basophils Percent Auto 0.1 % (0-2); Eosinophils Absolute Auto 0.3 X10*3/uL (0.0-0.4); Eosinophils Percent Auto 1.3 % (0-4); Hematocrit 24.9 % (42.0-52.0); Hemoglobin 8.9 g/dl (14.0-18.0); Imm Gran Abs Auto 0.18 X10*3/uL (0.00-0.03); Imm Gran Pct Auto 0.7 % (0.0-0.4); Lymphocytes Absolute Auto 0.2 X10*3/uL (1.2-4.9); Lymphocytes Percent Auto 0.8 % (20-40); MANUAL DIFF FLAG SCAN; Mean Corpuscular HGB Conc 35.7 g/dl (31.0-36.0); Mean Corpuscular Hemoglobin 29.9 pg (27.0-33.0); Mean Corpuscular Volume 83.6 fL (80.0-98.0); Mean Platelet Volume 10.3 fL (9.4-12.4); Monocytes Absolute Auto 0.7 X10*3/uL (0.1-1.2); Monocytes Percent Auto 2.8 % (2-11); Neutrophils Absolute Auto 22.7 x10*3/uL (2.0-8.3); Neutrophils Percent Auto 94.3 % (45-73); Platelet Count 163 X10*3/uL (160-400); Red Blood Count 2.98 X10*6/uL (4.60-5.80); SCAN SMEAR FLAG 1; White Blood Count 24.1 X10*3/uL (4.8-10.8)
[2022-05-26] MEDS: 0.9 % Sodium Chloride 1,000 ML 999 ML IVCONT (11:35)
[2022-05-26] MEDS: ondansetron HCL 4 MG/2 ML VIAL IVPUSH (11:35)
[2022-05-26 11:42] LABS: Lactic Acid 0.7 mmol/L (0.5-2.0)
--- NOTE | 2022-05-26 11:43 | PC.NURSE ---
pt alert and oriented, skin pale and dry, respirations even and unlabored, pt reports having nausea and vomiting for about 5 days, no diarrhea, states emisis is clear/yellow consistency , pt has not been eating or drinking because every time he puts anything in his mouth he just vomits its right back, pt had a fall about 100days ago, old scab to the forehead states he tripped trying to get out of a chair, large ulcer on the coccyx area, pt is a left amputation below the knee and right toes removed on his right foot pt is reporting pain in the coccyx/headache/abd 08/24, hypertensive at this time in the 80's 87/37
[2022-05-26 11:47] LABS: INTERNATIONAL NORM RATIO 1.1 (0.9-1.1)
[2022-05-26 11:51] LABS: B Type Natriuretic Peptide 100 pg/mL (<100); Troponin-I High Sensitivity 40.4 ng/L (<3.5-35.0)
[2022-05-26 11:58] LABS: SLIDE REVIEW VERIFIED
[2022-05-26 12:07] LABS: Alanine Aminotransferase 21 U/L (0-40); Albumin Level 4.1 g/dL (3.5-5.0); Alkaline Phosphatase 128 U/L (39-117); Anion Gap 29 (12-20); Aspartate Amino Transferase 24 U/L (5-37); Bilirubin Direct 0.2 mg/dL (0.0-0.5); Bilirubin Total 0.4 mg/dL (0.0-1.0); Blood Urea Nitrogen 172 mg/dL (9-16); Calcium 7.9 mg/dL (8.4-10.2); Carbon Dioxide 10 mmol/L (22-29); Chloride 91 mmol/L (96-108); Creatinine Clr Calc Pharmacy 21.7; Estimated Glomerular Filt Rate 15; Glucose Random 73 mg/dL (60-115); Lipase 30 U/L (8-78); Magnesium 2.3 mg/dL (1.6-2.6); Sodium 125 mmol/L (135-145); Total Protein 7.2 g/dL (6.5-8.0)
[2022-05-26 12:10] LABS: Appearance Urine CLEAR; Color Urine YELLOW; Glucose Urine UA NEG (NEG); Leukocyte Esterase Urine NEG (NEG); Nitrite Urine NEG (NEG); PH 5.5 (5.0-8.0); UACC Culture Trigger NO; Urine Blood NEG (NEG); Urine Ketones NEG (NEG); Urine Protein 1+ MG/DL (NEG-TRACE)
[2022-05-26 12:12] LABS: COVID-19 Test Negative (Negative)
[2022-05-26 12:30] LABS: Amorphous Sediment Urine 3+ /LPF; RBC Urine 0 /HPF (0); Squamous Epithelial Cell Urine TRACE /LPF; WBC Urine 0-2 /HPF (0-4)
[2022-05-26 12:31] LABS: Bacteria Urine TRACE /LPF
[2022-05-26 12:53] LABS: OBS Int Ctl Valid YES; OBS1 POSITIVE (NEGATIVE)
[2022-05-26] MEDS: 0.9 % Sodium Chloride 2,000 ML 999 ML IVCONT (12:53)
--- NOTE | 2022-05-26 13:50 | PHA.MEDREC ---
MED REC COMPLETE , NO ISSUES Pharmacy Consult ? Medication Reconciliation Pharmacy has completed the medication reconciliation.
[2022-05-26] MEDS: levoFLOXacin/D5W 500 MG/100 ML PIGGYBACK 100 MG IV (14:17)
[2022-05-26 14:24] LABS: ABG Base Excess -18.3 mmol/L; ABG HCO3 8 mmol/L (22-26); ABG pCO2 21 mmHg (32-45); ABG pH 7.17 (7.35-7.45); ABG pO2 124 mmHg (83-108)
[2022-05-26] MEDS: metroNIDAZOLE/NS 500 MG/100 ML PIGGYBACK 100 MG IV (15:14)
[2022-05-26 15:22] LABS: Acetaminophen LAB < 1 mcg/mL (<30); Salicylate < 5.0 mg/dL (15-30)
[2022-05-26 16:01] LABS: Calcium 6.8 mg/dL (8.4-10.2); Creatinine Clr Calc Pharmacy 24.1; Estimated Glomerular Filt Rate 16; Ethanol < 10 mg/dL; Glucose Random 73 mg/dL (60-115)
[2022-05-26 16:05] LABS: Blood Urea Nitrogen 163 mg/dL (9-16)
[2022-05-26 16:07] LABS: Anion Gap 24 (12-20); Carbon Dioxide 9 mmol/L (22-29); Chloride 98 mmol/L (96-108); Potassium 4.8 mmol/L (3.3-5.1); Sodium 126 mmol/L (135-145)
--- NOTE | 2022-05-26 16:12 | PC.NURSE ---
pts bICARB LEVEL OF 9 REPPORTED FROM LAB , RESULTS GIVEN TO DR MANCILLA
--- NOTE | 2022-05-26 16:20 | PC.NURSE ---
norepinephrine started at 0.05 mcg/kg/h to increase bp, bp at this time 83/36
--- NOTE | 2022-05-26 16:45 | PC.NURSE ---
dr tena at bedside inserting a central line in the right carotid, pt tolerating the procedure well
[2022-05-26] MEDS: Sodium Bicarbonate 8.4% 50 MEQ/50 ML SYRINGE IVPUSH ×3 (17:25→21:41)
[2022-05-26] MEDS: Lactated Ringers 1,000 ML 250 ML IVCONT (17:33)
--- NOTE | 2022-05-26 17:38 | PC.NURSE ---
pt appars to be in more discomfort at this time since his arrival to the ed, pain mostly still in the coccyx area/head/leg a little in the abd, pain at 10/10, pt moaning out in pain at this time, also color appears to be slightly more pale since the arrival to the ed verbal order from dr hall to increase the norephinephrine to 0.1mcg/kg/hr
[2022-05-26 18:19] LABS: Hematocrit 21.5 % (42.0-52.0); Hemoglobin 7.9 g/dl (14.0-18.0); Mean Corpuscular HGB Conc 36.7 g/dl (31.0-36.0); Mean Corpuscular Hemoglobin 30.2 pg (27.0-33.0); Mean Corpuscular Volume 82.1 fL (80.0-98.0); Mean Platelet Volume 9.2 fL (9.4-12.4); Platelet Count 128 X10*3/uL (160-400); Red Blood Count 2.62 X10*6/uL (4.60-5.80); Red Cell Distribution Width 14.1 % (11.0-16.0); White Blood Count 22.4 X10*3/uL (4.8-10.8)
[2022-05-26 18:20] LABS: Venous Blood Gas Refer to POC result
[2022-05-26] MEDS: HYDROmorphone HCl 0.5 MG/0.5 ML SYRINGE IVPUSH (18:26)
[2022-05-26 18:29] LABS: VBG Base Excess -14.9 mmol/L; VBG HCO3 11 mmol/L (22-26); VBG pCO2 28 mmHg; VBG pO2 75 mmHg
--- NOTE | 2022-05-26 19:13 | PC.NURSE ---
report given to rn picu
--- NOTE | 2022-05-26 20:00 | PC.NURSE ---
Pt admitted to ICU from ED at approx 1999. Upon initial assessment- pt A&Ox4, lethargic. Afebrile. NSR on tele, HR 70-80s. Levophed ordered and titrated to maintain MAP > 65. PA aware of all labs- orders for 1 amp bicarb IVP, bicarb gtt, and 2 gm calcium gluconate IV per jan. Juan in place, UOP 100-350 ml/hr. Refusing to eat/drink. Refusing to be repositioned, encouraged multiple times by RN and aide. Large stage 2-3 sacral/coccyx pressure injury noted on arrival- pictures in computer in ED MD note. Wound consult placed. Foam dsg C/D/I. Abrasions to forehead and extremities. Given dilaudid 0.5 mg IVP x1 for pain.
[2022-05-26 21:14] LABS: Alanine Aminotransferase 19 U/L (0-40); Albumin Level 3.7 g/dL (3.5-5.0); Alkaline Phosphatase 114 U/L (39-117); Anion Gap 27 (12-20); Aspartate Amino Transferase 24 U/L (5-37); Bilirubin Total 0.4 mg/dL (0.0-1.0); Carbon Dioxide 10 mmol/L (22-29); Chloride 98 mmol/L (96-108); Creatinine Clr Calc Pharmacy 25.8; Estimated Glomerular Filt Rate 18; Glucose Random 69 mg/dL (60-115); Potassium 4.4 mmol/L (3.3-5.1); Sodium 131 mmol/L (135-145); Total Protein 6.4 g/dL (6.5-8.0)
[2022-05-26 21:25] LABS: Blood Urea Nitrogen 157 mg/dL (9-16)
[2022-05-26] MEDS: Piperacillin Sodium/Tazobactam 2.25 GM in 0.9 % Sodium Chloride 50 ML IV (21:41)
[2022-05-26] MEDS: Calcium Gluconate/NaCl,Iso-Osm 2 GM/100 ML PLAST..BAG IV (22:25)
--- NOTE | 2022-05-26 23:20 | PM.CCHP ---
History of Present Illness Date of Service: 05/26/22 <FARHEEN Hernandez - Last Filed: 05/27/22 19:49> Attending physician on admission: Asad Rodríguez <FARHEEN Hernandez - Last Filed: 05/27/22 19:49> Chief Complaint: I could not keep anything down <FARHEEN Hernandez - Last Filed: 05/27/22 19:49> Patient is a 62-year-old male with underlying history of peripheral arterial disease, coronary artery disease status post cardiac catheterization on February; paroxysmal atrial fibrillation on Xarelto, systolic CHF with reduced ejection fraction, ischemic cardiomyopathy, appendectomy and peritonitis which have caused a variety of complications requiring at least 5 surgical interventions and 8 months of hospitalization in the past 2 years, transmetatarsal amputation of bilateral feet due to diabetes back in 2007, left BKA in 2015, diabetes, hypertension, hyperlipidemia, GERD, insomnia among others. ? Patient has been grieving the of his mother 2 weeks ago and since then he has felt significantly sad not wanting to eat or drink and lying in bed all the time, finally today he call 911 after feeling so weak and tired for the past week or so given that he has not been able to eat or drink anything even when he tried to drink water, within half an hour he will be vomiting, he has had a few episodes of diarrhea but not on the hour, denied abdominal pain. ? In the ER, his workup revealed blood pressure of 85/43, heart rate 67, respirations 18, O2 sat 97% on room air, temperature 96.6 degrees F, white count of 24.1, H&H of 8.9 and 24.9 respectively but baseline from about 10 months ago shows his H&H was 11.2 and 35.8); currently his H&H is 7.9 and 21.5 respectively, platelets 128, on admission sodium 126, carbon dioxide 9, anion gap 24, BUN 163, creatinine 3.74, calcium 6.8, urinalysis negative salicylates less than 5, Tylenol less than 1, negative for acetone and blood content ethyl alcohol.? His blood gas revealed a pH of 7.17, pCO2 21, PO2 124, HC03 of 8.? Chest x-ray shows no acute pulmonary disease.? CT of the abdomen pelvis without contrast revealed diverticulosis with possible diverticulitis versus colitis given the mild bowel wall thickening of the distal left colon and sigmoid colon; possible wall thickening of proximal stomach. ?Central line was placed on the right neck, the patient was given several L of IV fluids, started on Levaquin and Flagyl and placed on pressors given that despite of the IV fluid administration his blood pressure with no, up, he also received a couple amps of bicarbonate. ? During my evaluationthe patient states that he still feels ?lousy? tire and nauseous, denies abdominal pain, no chest pain, shortness of breath, cough or sputum production, reports intermittent episodes of diarrhea but nothing that he would call significant, denies melena or hematochezia has never had a GI bleed in the past, no hematemesis.? Admits having intermittent headache and lightheadedness but no true dizziness, denies any visual disturbance says, problems swallowing but he was unable to keep water down for disease would produce vomit.? Currently he states he just wants to get some good night sleep. ?He does admit to having a mechanical fall at home landing forward and hitting his head without loss of consciousness approximately 1 week ago, denies any neck pain, paresthesias of the upper, lower extremities or any weakness. ? ROS:? As above otherwise denies any history of cold or heat intolerance, no history of stroke or seizures, denies any eye, ear, nose or throat problems, no history of COPD, emphysema, bronchitis or pneumonia, no recent chest pain, arm or jaw pain, denies hematuria, admits to polydipsia and poly urea, denies leg swelling from what he can tell on his right leg, there is no history of DVT or PE. all other review of systems were reviewed under negative ? Past Medical History:? As above ? Past Surgical History:? As above ? Family history:? Noncontributory ? Social History:? Patient lives at home, currently grieving the of his mom 2 weeks ago.? Normally he does ambulate, has a prosthetic left leg, does not smoke, removal alcohol consumption history but nothing recent, no history of drugs. ? CODE STATUS: FULL CODE ? Allergies: NKDA ? Home Medications: Amiodarone 200 mg daily Aspirin 81 mg daily Carvedilol 6.25 mg p.o. b.i.d. Lasix 40 mg p.o. b.i.d. Gemfibrozil 600 mg p.o. b.i.d. Multivitamin 1 tablet daily Omeprazole 1 capsule b.i.d. Rivaroxaban 20 mg daily ? SEPSIS PHYSICAL EXAM DONE AT 730 pm: VS: ?While on vasopressors blood pressure 120/42, heart rate 80, respirations 16, O2 sat 98% on room air, temperature 97.2 degrees General:? Alert oriented x3 no acute distress.? Speaking full sentences.? Speech is well articulated, thought process is coherent.? Following all commands. Skin:? Abrasion in the central aspect of the forehead about 3 cm x 2 cm in diameter, no surrounding erythema, left old BKA, right transmetatarsal amputation, no edema.? There is a large sacrococcygeal pressure ulcer with irregular borders and a small corner of necrosis likely stage 2-3, no foul other.? The remainder of the skin is intact. HEENT:? Head is normocephalic, atraumatic, pupils equal round reactive to light accommodation bilaterally.? Extraocular movements appear intact.? Buccal mucosa is extremely dry Neck is supple without lymphadenopathy. Cardiac:? Clear S1-S2, no murmurs rubs or gallops. Pulmonary:? Clear to auscultation, no wheezes, rales or rhonchi. Abdomen:? Protuberant, positive bowel sounds in all 4 quadrants.? Soft, nontender, no rebound or guarding.? Old surgical scar in the mid abdomen. Musculoskeletal:? Moving all 4 extremities upon request a major joints, there is no crepitus or tenderness.? The strength is 5/5 bilaterally at the major joints in the upper as well as what is left of the lower extremities, no edema of the right lower extremity.? No calf tenderness. Neurologic:? As above, cranial nerves 2-12 are grossly intact.? No focal deficits noted. Motor strength as above.? Vascular:? 2+ pulses upper and lower extremities distally. less than 2nd capillary refill of the fingers bilaterally, lower extremities are warm. ? SIGNIFICANT LABORATORY DATA:? As above ? REVIEW OF IMAGES: CT abdomen and pelvis without contrast impression Diverticulosis of the colon. Mild bowel wall thickening of the distal left colon and sigmoid colon questionable for colitis or diverticulitis. The more proximal colon and distal small bowel are slightly distended and fluid-filled. Question mild wall thickening of the proximal stomach. ? Chest x-ray IMPRESSION: Right IJ central venous catheter tip projects 2 cm below the level of the cavoatrial junction. Airways disease. Right lung nodule not visible on plain radiography. Follow with CT. ? EKG REVIEW: Sinus rhythm 64 beats per minute.? No ST elevations, now ST depressions.? Left axis deviation. ?QT 486. Chronic changes in the inferior lateral leads also present on prior EKGs.?? ? ASSESSMENT AND PLAN: 1. Possible Acute sepsis ( had hypotension, leukocytosis, ANDRÉS which may be due to volume) 2. Per Abd CT, questionable Diverticulitis and /or acute colitis (although he had no abd pain) 3. Acute hypovolemic shock due to the above and volume loss 4. Anemia of acute blood loss (patient on Xarelto) rule out site of bleeding so far I could not confirm whether this is upper or lower but his stool guaiac is positive 5. Severe metabolic acidosis due to all the above 6. Hyperglycemia without DKA 7. Hypo osmolar hypovolemic hyponatremia 8. Acute kidney injury mainly due to hypovolemia and worsened by nephrotoxins such as Lasix, spironolactone, valsartan. ?His baseline creatinine (0.66) 9. Acute thrombocytopenia likely due to critical illness 10. Acute hypocalcemia with corrected level of 8 11. Stage 2-3 sacrococcygeal pressure ulcer present on admission PLAN OF CARE: 1. Patient will be admitted to the ICU, Juan catheter for I's and O's, continue with aggressive fluid resuscitation (already had over 3 L); given that the patient's last blood sugar was borderline low as 69 and he remains NPO, and has a significant degree of acidosis, I will place him on D5 half LR with bicarbonate; this will also help with his hyponatremia which should not be replaced more than 9 mEq per hour in the next 12 hours. 2. Patient has received adequate fluid resuscitation, I will switch him to Zosyn renally adjusted doses which also has anaerobic coverage. 3. Renal and GI consult will be ordered.? Laboratories to be repeated in the next 4 hours and in the morning, will hold any nephrotoxins. 4. IV calcium gluconate 2 g x 1 will be given. 5. Depending on the input from Gastroenterology, the patient may require general surgery input as well given his extensive history of abdominal surgeries and unknown source of bleeding, without approved his actively bleeding, I doubt that a bleeding scan will be helpful at this point. Once the patient is hemodynamically stable perhaps upper and lower endoscopy would be beneficial. 6. Wound care consult an ongoing turning 7. For now will hold Xarelto until a source of bleeding is identified. GI PROPHYLAXIS:? IV Protonix DVT PROPHYLAXIS:? Pneumatic stocking to the right lower extremity. Follow-up sepsis exam done at 01:30 on 05/27/2022 patient is still requiring vasopressors currently he is on norepinephrine at 0.27 mcg/ kg/min BP 130/51; 80; 16; 97% RA General:? Alert oriented x3 no acute distress.? Skin:?as above no new changes Cardiac:? Clear S1-S2, no murmurs rubs or gallops. Pulmonary:? Clear to auscultation, no wheezes, rales or rhonchi. Abdomen:? Protuberant, positive bowel sounds in all 4 quadrants.? Soft, nontender, no rebound or guarding.? Old surgical scar in the mid abdomen. Neurologic:? As above, cranial nerves 2-12 are grossly intact.? No focal deficits noted. Motor strength as above.?? Vascular:? 2+ pulses upper and lower extremities distally.? less than 2nd capillary refill at the fingers bilaterally, warm lower extremities Critical care time used for critical evaluation of this patient, diagnosis, treatment and coordination of care, review her records and documentation TOTAL CRITICAL CARE TIME 120 MIN . Patient's care was discussed in detail with Dr. Rodríguez.? He is aware of all the above as well as the plan of care for this patient. <FARHEEN Hernandez - Last Filed: 05/27/22 19:49> [facility] Past Medical History Medical History: Medical History Abdominal wall abscess Acute appendicitis CVA (cerebral vascular accident) Diabetes Diabetes mellitus Heart disease Heart failure with reduced ejection fraction Heart failure with reduced ejection fraction History of left below knee amputation HTN (hypertension) Ischemic cardiomyopathy Paroxysmal atrial fibrillation <FARHEEN Hernandez - Last Filed: 05/27/22 19:49> Family History Family History: Family History Father Stroke Aortic valve replaced Mother No problems noted. <FARHEEN Hernandez - Last Filed: 05/27/22 19:49> Surgical History Surgical History: Surgical History H/O exploratory laparotomy H/O right hemicolectomy History of transmetatarsal amputation of right foot Hx of cholecystectomy <FARHEEN Hernandez - Last Filed: 05/27/22 19:49> Social History Social History: Social History Household Members: None Household Members Other:: Mother- takes care of her Housing: House Do you presently have visiting nurse or other home services: No Unable to assess alcohol history related to: Unknown Alcohol intake: former Patient Tobacco Use Status: Former Tobacco user Use of substances other than those prescribed or required for medical reasons: Unknown Currently Displaying Signs/Symptoms of Drug Intoxication Withdrawal: No Advance Directives: Yes Advance Directives on File: Yes Advance Directives Date on File: 01/06/21 Do you have thoughts of harming others: None Do you have a plan to hurt others: No Plan Recently lost weight without trying: Unsure Eating poorly because of decreased appetite: Yes Nutrition Risks: Acute nausea or vomiting x1 week and Anorexia Poor oral hygiene: No service: No Current occupational status: retired and disabled <FARHEEN Hernandez - Last Filed: 05/27/22 19:49> Meds Allergies/Adverse reactions: Allergies Allergy/AdvReac Type Severity Reaction Status Date / Time vancomycin [VANCOMYCIN] Allergy Severe STOMACH Verified 04/07/22 14:32 UPSET, ill <FARHEEN Hernandez - Last Filed: 05/27/22 19:49> Active Medications: Current Medications Norepinephrine Bitartrate (Levophed) 8 mg in 250 mls @ 0 mls/hr IVCONT .Q0M [facility] [place]; Protocol Last Titration: 05/26/22 19:50 Dose: 0.23 mcg/kg/min, 39.03 mls/hr Lactated Ringer's (Lr) 1,000 mls @ 250 mls/hr IVCONT .Q4H [facility] [place] Last Admin: 05/26/22 21:45 Dose: Not Given Piperacillin Sod/Tazobactam (Sod 2.25 gm/ Sodium Chloride) 50 mls @ 100 mls/hr IV Q6H [facility] [place] Last Infusion: 05/26/22 22:13 Dose: Infused Calcium Gluconate (Calcium Gluconate) 2 gm in 100 mls @ 50 mls/hr IV ONCE ONE Stop: 05/26/22 23:32 Last Admin: 05/26/22 22:25 Dose: 50 mls/hr Sodium Bicarbonate 150 meq/ (Dextrose/Sodium Chloride) 1,000 mls @ 150 mls/hr IV .Q6H40M [facility] Last Admin: 05/26/22 22:25 Dose: 150 mls/hr Ondansetron HCl (Ondansetron Hcl 4 Mg/2 Ml Vial) 4 mg IVPUSH Q8H PRN PRN Reason: Nausea Pharmacy Consult (Consult Rx Perform Med Rec) 1 each MISCELLANE ONCE PRN PRN Reason: Consult order <FARHEEN Hernandez - Last Filed: 05/27/22 19:49> Home medications: Home Medications Medication Instructions Recorded Confirmed Last Taken Type amiodarone 200 mg tablet 200 mg PO DAILY 05/07/21 05/26/22 05/25/22 History spironolactone 25 mg tablet 25 mg PO DAILY 05/07/21 05/26/22 05/25/22 History omeprazole 20 mg capsule,delayed 1 cap PO BID 07/03/21 05/26/22 05/25/22 History release valsartan 80 mg tablet 80 mg PO DAILY 02/24/22 05/26/22 05/25/22 History aspirin 81 mg tablet,delayed 81 mg PO DAILY 04/07/22 05/26/22 05/25/22 History release (Adult Low Dose Aspirin) furosemide 40 mg tablet 40 mg PO BID 04/07/22 05/26/22 05/25/22 History multivitamin 1 tab PO DAILY 04/07/22 05/26/22 05/25/22 History rivaroxaban 20 mg tablet (Xarelto) 20 mg PO DAILY 04/07/22 05/26/22 05/25/22 History zolpidem 10 mg tablet 10 mg PO BEDTIME PRN Sleep 04/07/22 05/26/22 05/25/22 History gemfibrozil 600 mg tablet 600 mg PO BID 0705/26/22 05/25/22 History <FARHEEN Hernandez - Last Filed: 05/27/22 19:49> Physical Exam Vital Signs: Vital Signs: Last Vital Signs Temp 99 F 05/26/22 23:00 Pulse 78 05/26/22 23:00 Resp 12 05/26/22 23:00 BP 118/40 L 05/26/22 23:00 Pulse Ox 97 05/26/22 23:00 O2 Del Method 05/26/22 23:00 O2 Flow Rate 99 05/26/22 15:20 BMI result Body Mass Index 24.9 <FARHEEN Hernandez - Last Filed: 05/27/22 19:49> Results Labs CBC and Chem 7: : 05/28/22 05:05 05/28/22 05:05 <FARHEEN Hernandez - Last Filed: 05/27/22 19:49> Labs: Laboratory Results - last 24 hr 05/26/22 05/26/22 05/26/22 11:23 11:23 11:23 MCV 83.6 MCH 29.9 MCHC 35.7 RDW 14.0 Plt Count 163 MPV 10.3 Immature Gran % (Auto) 0.7 H Neut % (Auto) 94.3 H Lymph % (Auto) 0.8 L [place] % (Auto) 2.8 Eos % (Auto) 1.3 Baso % (Auto) 0.1 Lymph # (Auto) 0.2 L [place] # (Auto) 0.7 Eos # (Auto) 0.3 Baso # (Auto) 0.0 Abs Immat Gran (auto) 0.18 H Absolute Neuts (auto) 22.7 H Absolute Nucleated RBC 0.000 Nucleated RBC % (auto) 0.0 Smear Tech's Comments VERIFIED PT 13.0 INR 1.1 O2 Saturation ABG pH at Pt Temp ABG pCO2 at Pt Temp ABG pO2 at Pt Temp ABG HCO3 ABG Base Excess (Actual) VBG pH VBG pCO2 VBG pO2 VBG HCO3 VBG O2 Saturation VBG Base Excess Anion Gap 29 H Estim Creat Clear Calc 21.7 Estimated GFR 15 Random Glucose 73 D Lactic Acid Calcium 7.9 L Magnesium 2.3 Total Bilirubin 0.4 Direct Bilirubin 0.2 AST 24 D ALT 21 Alkaline Phosphatase 128 H Troponin I High Sens B-Natriuretic Peptide Total Protein 7.2 Albumin 4.1 D Lipase 30 Urine Color Urine Appearance Urine pH Ur Specific [place] Urine Protein Urine Glucose (UA) Urine Ketones Urine Blood Urine Nitrite Ur Leukocyte Esterase Urine RBC Urine WBC Ur Squamous Epith Cells Amorphous Sediment Urine Bacteria Ur Random Sodium Stool Occult Blood Salicylates Acetaminophen Ethyl Alcohol COVID-19 (CAROLINE) COVID-19 Clin Com Blood Type Antibody Screen 05/26/22 05/26/22 05/26/22 11:23 11:23 11:34 MCV MCH MCHC RDW Plt Count MPV Immature Gran % (Auto) Neut % (Auto) Lymph % (Auto) [place] % (Auto) Eos % (Auto) Baso % (Auto) Lymph # (Auto) [place] # (Auto) Eos # (Auto) Baso # (Auto) Abs Immat Gran (auto) Absolute Neuts (auto) Absolute Nucleated RBC Nucleated RBC % (auto) Smear Tech's Comments PT INR O2 Saturation ABG pH at Pt Temp ABG pCO2 at Pt Temp ABG pO2 at Pt Temp ABG HCO3 ABG Base Excess (Actual) VBG pH VBG pCO2 VBG pO2 VBG HCO3 VBG O2 Saturation VBG Base Excess Anion Gap Estim Creat Clear Calc Estimated GFR Random Glucose Lactic Acid 0.7 Calcium Magnesium Total Bilirubin Direct Bilirubin AST ALT Alkaline Phosphatase Troponin I High Sens 40.4 H B-Natriuretic Peptide 100 Total Protein Albumin Lipase Urine Color Urine Appearance Urine pH Ur Specific [place] Urine Protein Urine Glucose (UA) Urine Ketones Urine Blood Urine Nitrite Ur Leukocyte Esterase Urine RBC Urine WBC Ur Squamous Epith Cells Amorphous Sediment Urine Bacteria Ur Random Sodium Stool Occult Blood Salicylates Acetaminophen Ethyl Alcohol COVID-19 (CAROLINE) Negative COVID-19 Clin Com See Note Blood Type Antibody Screen 05/26/22 05/26/22 05/26/22 11:50 12:38 14:20 MCV MCH MCHC RDW Plt Count MPV Immature Gran % (Auto) Neut % (Auto) Lymph % (Auto) [place] % (Auto) Eos % (Auto) Baso % (Auto) Lymph # (Auto) [place] # (Auto) Eos # (Auto) Baso # (Auto) Abs Immat Gran (auto) Absolute Neuts (auto) Absolute Nucleated RBC Nucleated RBC % (auto) Smear Tech's Comments PT INR O2 Saturation 98.0 ABG pH at Pt Temp 7.17 L* ABG pCO2 at Pt Temp 21 L ABG pO2 at Pt Temp 124 H ABG HCO3 8 L ABG Base Excess (Actual) -18.3 VBG pH VBG pCO2 VBG pO2 VBG HCO3 VBG O2 Saturation VBG Base Excess Anion Gap Estim Creat Clear Calc Estimated GFR Random Glucose Lactic Acid Calcium Magnesium Total Bilirubin Direct Bilirubin AST ALT Alkaline Phosphatase Troponin I High Sens B-Natriuretic Peptide Total Protein Albumin Lipase Urine Color YELLOW Urine Appearance CLEAR Urine pH 5.5 Ur Specific [place] 1.020 Urine Protein 1+ H Urine Glucose (UA) NEG Urine Ketones NEG Urine Blood NEG Urine Nitrite NEG Ur Leukocyte Esterase NEG Urine RBC 0 Urine WBC 0-2 Ur Squamous Epith Cells TRACE Amorphous Sediment 3+ Urine Bacteria TRACE Ur Random Sodium Stool Occult Blood POSITIVE Salicylates Acetaminophen Ethyl Alcohol COVID-19 (CAROLINE) COVID-19 Auctomatic Blood Type Antibody Screen 05/26/22 05/26/22 05/26/22 14:36 14:36 14:36 MCV MCH MCHC RDW Plt Count MPV Immature Gran % (Auto) Neut % (Auto) Lymph % (Auto) [place] % (Auto) Eos % (Auto) Baso % (Auto) Lymph # (Auto) [place] # (Auto) Eos # (Auto) Baso # (Auto) Abs Immat Gran (auto) Absolute Neuts (auto) Absolute Nucleated RBC Nucleated RBC % (auto) Smear Tech's Comments PT INR O2 Saturation ABG pH at Pt Temp ABG pCO2 at Pt Temp ABG pO2 at Pt Temp ABG HCO3 ABG Base Excess (Actual) VBG pH VBG pCO2 VBG pO2 VBG HCO3 VBG O2 Saturation VBG Base Excess Anion Gap 24 H Estim Creat Clear Calc 24.1 Estimated GFR 16 Random Glucose 73 Lactic Acid Calcium 6.8 L D Magnesium Total Bilirubin Direct Bilirubin AST ALT Alkaline Phosphatase Troponin I High Sens 37.0 H B-Natriuretic Peptide Total Protein Albumin Lipase Urine Color Urine Appearance Urine pH Ur Specific [place] Urine Protein Urine Glucose (UA) Urine Ketones Urine Blood Urine Nitrite Ur Leukocyte Esterase Urine RBC Urine WBC Ur Squamous Epith Cells Amorphous Sediment Urine Bacteria Ur Random Sodium Stool Occult Blood Salicylates < 5.0 L Acetaminophen < 1 Ethyl Alcohol < 10 COVID-19 (CAROLINE) COVID-19 One-Song Com Blood Type Antibody Screen 05/26/22 05/26/22 05/26/22 14:41 18:12 18:18 MCV 82.1 MCH 30.2 MCHC 36.7 H RDW 14.1 Plt Count 128 L MPV 9.2 L Immature Gran % (Auto) Neut % (Auto) Lymph % (Auto) [place] % (Auto) Eos % (Auto) Baso % (Auto) Lymph # (Auto) [place] # (Auto) Eos # (Auto) Baso # (Auto) Abs Immat Gran (auto) Absolute Neuts (auto) Absolute Nucleated RBC 0.000 Nucleated RBC % (auto) 0.0 Smear Tech's Comments PT INR O2 Saturation ABG pH at Pt Temp ABG pCO2 at Pt Temp ABG pO2 at Pt Temp ABG HCO3 ABG Base Excess (Actual) VBG pH 7.20 L* VBG pCO2 28 VBG pO2 75 VBG HCO3 11 L VBG O2 Saturation 94.0 VBG Base Excess -14.9 Anion Gap Estim Creat Clear Calc Estimated GFR Random Glucose Lactic Acid Calcium Magnesium Total Bilirubin Direct Bilirubin AST ALT Alkaline Phosphatase Troponin I High Sens B-Natriuretic Peptide Total Protein Albumin Lipase Urine Color Urine Appearance Urine pH Ur Specific [place] Urine Protein Urine Glucose (UA) Urine Ketones Urine Blood Urine Nitrite Ur Leukocyte Esterase Urine RBC Urine WBC Ur Squamous Epith Cells Amorphous Sediment Urine Bacteria Ur Random Sodium Stool Occult Blood Salicylates Acetaminophen Ethyl Alcohol Cancelled COVID-19 (CAROLINE) COVID-19 Clin Com Blood Type Antibody Screen 05/26/22 05/26/22 05/26/22 18:39 19:57 20:09 MCV MCH MCHC RDW Plt Count MPV Immature Gran % (Auto) Neut % (Auto) Lymph % (Auto) [place] % (Auto) Eos % (Auto) Baso % (Auto) Lymph # (Auto) [place] # (Auto) Eos # (Auto) Baso # (Auto) Abs Immat Gran (auto) Absolute Neuts (auto) Absolute Nucleated RBC Nucleated RBC % (auto) Smear Tech's Comments PT INR O2 Saturation ABG pH at Pt Temp ABG pCO2 at Pt Temp ABG pO2 at Pt Temp ABG HCO3 ABG Base Excess (Actual) VBG pH VBG pCO2 VBG pO2 VBG HCO3 VBG O2 Saturation VBG Base Excess Anion Gap 27 H Estim Creat Clear Calc 25.8 Estimated GFR 18 Random Glucose 69 Lactic Acid Calcium 7.0 L Magnesium Total Bilirubin 0.4 Direct Bilirubin AST 24 ALT 19 Alkaline Phosphatase 114 Troponin I High Sens B-Natriuretic Peptide Total Protein 6.4 L Albumin 3.7 Lipase Urine Color Urine Appearance Urine pH Ur Specific [place] Urine Protein Urine Glucose (UA) Urine Ketones Urine Blood Urine Nitrite Ur Leukocyte Esterase Urine RBC Urine WBC Ur Squamous Epith Cells Amorphous Sediment Urine Bacteria Ur Random Sodium 41.0 Stool Occult Blood Salicylates Acetaminophen Ethyl Alcohol COVID-19 (CAROLINE) COVID-19 Clin Com Blood Type O Negative Antibody Screen NEGATIVE <FARHEEN Hernandez - Last Filed: 05/27/22 19:49> Imaging Radiologist's Impressions: Impressions Abdomen/Pelvis CT 05/26/22 12:48 IMPRESSION: Diverticulosis of the colon. Mild bowel wall thickening of the distal left colon and sigmoid colon questionable for colitis or diverticulitis. The more proximal colon and distal small bowel are slightly distended and fluid-filled. Question mild wall thickening of the proximal stomach. Fleischner guidelines were followed. Chest X-Ray 05/26/22 13:07 IMPRESSION: Unremarkable examination. Chest X-Ray 05/26/22 17:03 IMPRESSION: Right IJ central venous catheter tip projects 2 cm below the level of the cavoatrial junction. Airways disease. Right lung nodule not visible on plain radiography. Follow with CT. <FARHEEN Hernandez - Last Filed: 05/27/22 19:49> Critical Care Time Critical Care Time (minutes): 120 <Asad Rodríguez MD - Last Filed: 05/28/22 14:18>
[2022-05-27] VITALS (38 sets, daily range): BP systolic 100–142; BP diastolic 30–55; PULSE 76–89; RESP 9–20; TEMP 37.2–37.7; O2SAT 90–100; BMI 24.9
[2022-05-27 00:18] LABS: Basophils Absolute Auto 0.1 X10*3/uL (0.0-0.2); Basophils Percent Auto 0.2 % (0-2); Eosinophils Absolute Auto 0.3 X10*3/uL (0.0-0.4); Eosinophils Percent Auto 0.9 % (0-4); Hematocrit 22.1 % (42.0-52.0); Hemoglobin 8.2 g/dl (14.0-18.0); Imm Gran Abs Auto 0.41 X10*3/uL (0.00-0.03); Imm Gran Pct Auto 1.4 % (0.0-0.4); Lymphocytes Absolute Auto 0.1 X10*3/uL (1.2-4.9); Lymphocytes Percent Auto 0.3 % (20-40); MANUAL DIFF FLAG SCAN; Mean Corpuscular HGB Conc 37.1 g/dl (31.0-36.0); Mean Corpuscular Hemoglobin 30.7 pg (27.0-33.0); Mean Corpuscular Volume 82.8 fL (80.0-98.0); Mean Platelet Volume 9.6 fL (9.4-12.4); Monocytes Absolute Auto 0.8 X10*3/uL (0.1-1.2); Monocytes Percent Auto 2.9 % (2-11); Neutrophils Absolute Auto 27.4 x10*3/uL (2.0-8.3); Neutrophils Percent Auto 94.3 % (45-73); Platelet Count 134 X10*3/uL (160-400); Red Blood Count 2.67 X10*6/uL (4.60-5.80); Red Cell Distribution Width 13.8 % (11.0-16.0); SCAN SMEAR FLAG 1; White Blood Count 29.1 X10*3/uL (4.8-10.8)
[2022-05-27 00:40] LABS: VBG Base Excess -13.3 mmol/L; VBG HCO3 12 mmol/L (22-26); VBG pCO2 27 mmHg; VBG pH 7.25 (7.32-7.43); VBG pO2 54 mmHg
[2022-05-27 00:42] LABS: SLIDE REVIEW VERIFIED
[2022-05-27 00:59] LABS: Blood Urea Nitrogen 154 mg/dL (9-16); Calcium 7.4 mg/dL (8.4-10.2); Creatinine Clr Calc Pharmacy 28.1; Estimated Glomerular Filt Rate 20; Glucose Fasting 80 mg/dL (60-99)
[2022-05-27 01:10] LABS: Anion Gap 28 (12-20); Carbon Dioxide 11 mmol/L (22-29); Chloride 99 mmol/L (96-108); Potassium 3.5 mmol/L (3.3-5.1); Sodium 134 mmol/L (135-145)
[2022-05-27] MEDS: Piperacillin Sodium/Tazobactam 2.25 GM in 0.9 % Sodium Chloride 50 ML IV ×4 (04:59→22:11)
[2022-05-27 05:17] LABS: VBG Base Excess -8.7 mmol/L; VBG HCO3 15 mmol/L (22-26); VBG pCO2 29 mmHg; VBG pH 7.33 (7.32-7.43); VBG pO2 40 mmHg
[2022-05-27 05:53] LABS: Basophils Percent Auto 0.1 % (0-2); Eosinophils Absolute Auto 0.3 X10*3/uL (0.0-0.4); Eosinophils Percent Auto 1.1 % (0-4); Hematocrit 22.7 % (42.0-52.0); Hemoglobin 8.3 g/dl (14.0-18.0); Imm Gran Abs Auto 0.41 X10*3/uL (0.00-0.03); Imm Gran Pct Auto 1.4 % (0.0-0.4); Lymphocytes Absolute Auto 0.1 X10*3/uL (1.2-4.9); Lymphocytes Percent Auto 0.4 % (20-40); MANUAL DIFF FLAG SCAN; Mean Corpuscular HGB Conc 36.6 g/dl (31.0-36.0); Mean Corpuscular Volume 81.9 fL (80.0-98.0); Mean Platelet Volume 9.9 fL (9.4-12.4); Monocytes Absolute Auto 0.6 X10*3/uL (0.1-1.2); Monocytes Percent Auto 1.9 % (2-11); Neutrophils Absolute Auto 27.9 x10*3/uL (2.0-8.3); Neutrophils Percent Auto 95.1 % (45-73); Platelet Count 146 X10*3/uL (160-400); Red Blood Count 2.77 X10*6/uL (4.60-5.80); SCAN SMEAR FLAG 1; White Blood Count 29.3 X10*3/uL (4.8-10.8)
[2022-05-27] MEDS: HYDROmorphone HCl 0.5 MG/0.5 ML SYRINGE IVPUSH ×4 (06:01→19:51)
[2022-05-27 06:08] LABS: Phosphorus 7.5 mg/dL (2.7-4.5)
[2022-05-27 06:15] LABS: Venous Blood Gas Refer to POC result
[2022-05-27 06:16] LABS: Venous Blood Gas Refer to POC result
[2022-05-27 06:17] LABS: Alanine Aminotransferase 15 U/L (0-40); Albumin Level 3.4 g/dL (3.5-5.0); Alkaline Phosphatase 107 U/L (39-117); Anion Gap 27 (12-20); Aspartate Amino Transferase 24 U/L (5-37); Bilirubin Total 0.3 mg/dL (0.0-1.0); Calcium 7.5 mg/dL (8.4-10.2); Carbon Dioxide 15 mmol/L (22-29); Chloride 99 mmol/L (96-108); Creatinine Clr Calc Pharmacy 31.9; Estimated Glomerular Filt Rate 23; Glucose Random 109 mg/dL (60-115); Potassium 3.6 mmol/L (3.3-5.1); Sodium 137 mmol/L (135-145)
[2022-05-27 06:25] LABS: Blood Urea Nitrogen 140 mg/dL (9-16)
[2022-05-27] MEDS: ondansetron HCL 4 MG/2 ML VIAL IVPUSH ×3 (10:09→22:11)
[2022-05-27] MEDS: Dextrose 5 % and Lactated Ring 1,000 ML 100 ML IVCONT (10:56)
--- NOTE | 2022-05-27 11:20 | PC.NURSE ---
Addendum entered by Bala Dickens RN 05/27/22 17:57: pt brother at bedside. insulin administered as ordered. pt dry heaving throughout the shift, spitting yellow/brown sputum. md informed. GI md assessed pt today. plan is for pt to have procedure on the , GI prep to start tomorrow. Addendum entered by Bala Dickens RN 05/27/22 15:21: informed MD pt has no poc orders scheduled. poc obtained and informed md of result Addendum entered by Bala Dickens RN 05/27/22 12:21: md updated sister and pt. blood bank contacted. waiting for unit of blood to arrive, per tech blood bank will call icu when ready. Original Note: pt c/o n/v this AM w/ 1 episode of vomitting. prn zofran administered. pt c/o butt pain, informed, dilaudid administered as ordered w/ + effect. pt c/o n/t in all extremities stating this is baseline. diet ordered during rounds. fluids changed as ordered. levo titrated per protocol. pt's sister at bedside, informed in order to update pt's sister and discuss plan/goal of care. safety and fall precautions in place. call rausch within reach. pt having multiple BMs this AM.
[2022-05-27 14:44] LABS: Glucose, Whole Blood 176 mg/dL (60-115)
--- NOTE | 2022-05-27 15:03 | MHC.CM.PN ---
Met with pt to review d/c planning needs: pt resides alone since the passing of his mother with whom he lived. He states he is independent with all care needs and has a very supportive family close by who assist with transportation and any other need pt has. Pt has a lower extremity prosthetic, w/c, walker and cane. He presently has no services. HCP verified and on file. IMM in chart. At this time, pt should be able to return to home without services, however, he is exhibiting signs of depression and should be seen by [facility] d/t recent loss/grief concerns that are clearly impacting his self care. Family to transport home. CM to follow. Not Vaccinated for COVID
--- NOTE | 2022-05-27 15:40 | PM.CCPN ---
Subjective Subjective Date of Service: 05/27/22 Interval History: Mr. Hammond was admitted to the ICU last night with hypovolemic shock. The patient is a 62-year-old male w PMHx of diabetes, hypertension, hyperlipidemia, peripheral vascular disease complicated by trans met amputation in 2007 and left BKA in 2015, CAD status post cath February, ischemic cardiomyopathy, systolic CHF, PAfib on Xarelto, GERD, and insomnia.? In March 2019, he underwent a complicated appendectomy.? Postop course was further complicated by an enterocutaneous fistula and peritonitis, which have caused a variety of intra-abdominal and abdominal wall complications requiring at least 5 surgical interventions and 8 months of hospitalization since then. Last echo in 03/2021 showed:? Moderately dilated LV with severe LV systolic dysfunction with EF of 20-25% with grade 2 diastolic dysfunction with underlying RWMAs; moderately dilated LA; [id number] mitral regurgitation; dilated IVC with no inspiratory collapse; and RVSP 49 mm. For the last number of years, the patient had been living with and caring for his parents.? His father about 5 years ago, his mother 2 weeks ago.? Since then, the patient has been grieving her loss and been significantly depressed, not wanting to eat or drink and lying in bed all the time.? For the last week or so, has not been able to eat or drink, when he tried to drink, it would just come back up.? Had a few episodes of diarrhea also.? He called 911 yesterday morning feeling so weak and tired.? No hematemesis or hematochezia.? No fever. In the ED, he was alert and oriented, in no distress, very weak appearing.? Heart rate 67, blood pressure 85/43.? Breathing easy, afebrile. ?General exam was benign, except that the patient had a large stage II pressure ulcer on his sacrum (see picture in the ED physician's note).? Stool was brown but guaiac positive. ED labs showed WBC 24, Hb 8.9 (baseline 11), sodium 125, BUN/creatinine 172/4.1, bicarb was 10, potassium 5.0, troponin was 40 with a flat follow-up.? Lactic acid was normal.? Tox screen was negative for salicylates, acetaminophen, and acetone.? ABG showed 7.17/21/124/-18 (unstated FiO2).? Urinalysis was negative.? His blood gas revealed a pH of 7.17, pCO2 21, PO2 124, HC03 of 8.? COVID negative.? Abdom CT without contrast revealed diverticulosis with possible diverticulitis versus colitis in the distal and sigmoid colon; possible wall thickening of proximal stomach. His BP dropped into the 70s.? After 3 L of fluid failed to improve his BP, a CVL was placed and he was started on pressors.? He was also given Levaquin, Flagyl, and bicarbonate.? He was admitted to the ICU because of refractory hypotension.? In the ICU fluid resuscitation was continued.? He was continued on Zosyn. ?A wound consult was placed.? His Xarelto was held, pending identification of a source bleeding. This afternoon, he is easily arousable, fully oriented, but fairly hypoanimated.? HR 78.? On the monitor and on his EKG, his rhythm is regular but probably not sinus, looks more of a high junctional rhythm, with IVCD. ?BP 101/38, on Levophed 0.12ug, down from 0.21ug this morning.? Breathing easy on room air, w Sat up to 100%.? Afebrile.? CVBG this morning 7.33/29/-8. ?No JVD.? Chest CTA w normal expiratory phase.? Heart rate and rhythm regular, with normal-sounding S1 and S2, with no murmur or gallops.? Abdomen is flat,, positive bowel sounds, benign.? No peripheral edema. LABORATORY DATA:? Below.? Notably, WBC up to 29, Hb 8.3, sodium up to 137, BUN/creatinine down to 140/2.8, potassium 3.6, bicarb up to 15, glucose 109, phosphorus 7.5, albumin 3.4. IMPRESSION: 1. Underlying DM.? We?ll start him on TPN, so I will put him on a sliding scale. 2. Underlying CAD w ischemic cardiomyopathy. 3. PAfib, was on Xarelto.? Now in a regular rhythm.? Stopping the Xarelto in case of GI bleeding. 4. Underlying PVD. 5. Refractory hypotension.? Presumably secondary to severe hypovolemia, with lack of compensatory cardiovascular reserve because of his severe ischemic cardiomyopathy.? And his hypoalbuminemia and anemia are contributing factors. ?I?m fairly confident he?s not in septic shock:? His lactate was normal, his mental status was normal, and his breathing was normal.? He has definitely improved, but I think he?s still dehydrated.? We?re continuing volume resuscitation. 6. ANDRÉS.? 2? severe hypovolemia. 7. Possible diverticulitis or and or possible colitis on CT.? His belly is clinically benign and he isn't having active diarrhea.? No impaired of to do anything.? It is reasonable to continue antibiotics for a couple of days to see how things shake out. 8. ID: ?With his hypotension and leukocytosis, I can?t r/o sepsis, but I doubt it, for the above reasons, and also bec we don?t have an obvious source.? His belly is clinically benign.? I do agree with continuing abx for another day to see what shakes out. 9. H/o GERD.? And on the CT scan, possible wall thickening of the proximal stomach was noted.? I wonder if either GERD or possibly gastroparesis are playing a role in his current problem.? We?ll give him PPI and Reglan.? I?ve asked Dr. Wilder from Gastroenterology to see him, he will schedule an EGD. 10. Anemia.? He does have chronic anemia, which is worse now.? He also has guaiac-positive stool. ?We?ve stopped the Xarelto.? He?ll have an EGD and colonoscopy later this week.? With his hemoglobin of 8.3 and his coronary artery disease with ischemic cardiomyopathy and his refractory hypotension, I will transfuse him one unit RBCs. 11. Severe metabolic acidosis.? 2? ANDRÉS. 12. Hyponatremia.? 2? hypovolemia.? Correcting nicely. 13. Acute thrombocytopenia.? 2? critical illness. 14. Stage 2 sacrococcyge[address] ulcer.? Dr. Howard has seen him.? Usual management. 15. ?At least moderate protein calorie malnutrition.? Starting TPN. Critical care time (including extended chart review, and extended discussions with the patient and his sister, with Dr. Wilder, and with Dr. Martinez):? 2:15+ Critical Care Time (minutes): 135 Physical Exam Vital Signs: Vital Signs: Last Vital Signs Temp 99.7 F 05/27/22 15:00 Pulse 77 05/27/22 15:00 Resp 15 05/27/22 15:00 BP 122/46 L 05/27/22 15:00 Pulse Ox 99 05/27/22 15:00 O2 Del Method 05/27/22 15:00 O2 Flow Rate 2 05/27/22 15:00 BMI result Body Mass Index 24.9 Objective Data Labs CBC & Chem 7: 05/27/22 05:05 05/27/22 05:05 Labs: Laboratory Results - last 24 hr 05/26/22 05/26/22 05/26/22 14:36 18:12 18:18 WBC 22.4 H RBC 2.62 L Hgb 7.9 L Hct 21.5 L MCV 82.1 MCH 30.2 MCHC 36.7 H RDW 14.1 Plt Count 128 L MPV 9.2 L Immature Gran % (Auto) Neut % (Auto) Lymph % (Auto) [place] % (Auto) Eos % (Auto) Baso % (Auto) Lymph # (Auto) [place] # (Auto) Eos # (Auto) Baso # (Auto) Abs Immat Gran (auto) Absolute Neuts (auto) Absolute Nucleated RBC 0.000 Nucleated RBC % (auto) 0.0 Smear Tech's Comments VBG pH 7.20 L* VBG pCO2 28 VBG pO2 75 VBG HCO3 11 L VBG O2 Saturation 94.0 VBG Base Excess -14.9 Sodium 126 L Potassium 4.8 Chloride 98 Carbon Dioxide 9 L* Anion Gap 24 H BUN 163 H Creatinine 3.74 H Estim Creat Clear Calc 24.1 Estimated GFR 16 POC Glucose Random Glucose 73 Fasting Glucose Calcium 6.8 L D Phosphorus Total Bilirubin AST ALT Alkaline Phosphatase Total Protein Albumin Ur Random Sodium Ethyl Alcohol < 10 Blood Type Antibody Screen Crossmatch ([facility]) 05/26/22 05/26/22 05/26/22 18:39 19:57 20:09 WBC RBC Hgb Hct MCV MCH MCHC RDW Plt Count MPV Immature Gran % (Auto) Neut % (Auto) Lymph % (Auto) [place] % (Auto) Eos % (Auto) Baso % (Auto) Lymph # (Auto) [place] # (Auto) Eos # (Auto) Baso # (Auto) Abs Immat Gran (auto) Absolute Neuts (auto) Absolute Nucleated RBC Nucleated RBC % (auto) Smear Tech's Comments VBG pH VBG pCO2 VBG pO2 VBG HCO3 VBG O2 Saturation VBG Base Excess Sodium 131 L Potassium 4.4 Chloride 98 Carbon Dioxide 10 L* Anion Gap 27 H BUN 157 H Creatinine 3.50 H Estim Creat Clear Calc 25.8 Estimated GFR 18 POC Glucose Random Glucose 69 Fasting Glucose Calcium 7.0 L Phosphorus Total Bilirubin 0.4 AST 24 ALT 19 Alkaline Phosphatase 114 Total Protein 6.4 L Albumin 3.7 Ur Random Sodium 41.0 Ethyl Alcohol Blood Type O Negative Antibody Screen NEGATIVE Crossmatch ([facility]) See Detail 05/26/22 05/26/22 05/27/22 23:53 23:53 00:33 WBC 29.1 H RBC 2.67 L Hgb 8.2 L Hct 22.1 L MCV 82.8 MCH 30.7 MCHC 37.1 H RDW 13.8 Plt Count 134 L MPV 9.6 Immature Gran % (Auto) 1.4 H Neut % (Auto) 94.3 H Lymph % (Auto) 0.3 L [place] % (Auto) 2.9 Eos % (Auto) 0.9 Baso % (Auto) 0.2 Lymph # (Auto) 0.1 L [place] # (Auto) 0.8 Eos # (Auto) 0.3 Baso # (Auto) 0.1 Abs Immat Gran (auto) 0.41 H Absolute Neuts (auto) 27.4 H Absolute Nucleated RBC 0.000 Nucleated RBC % (auto) 0.0 Smear Tech's Comments VERIFIED VBG pH 7.25 L VBG pCO2 27 VBG pO2 54 VBG HCO3 12 L VBG O2 Saturation 82.0 VBG Base Excess -13.3 Sodium 134 L Potassium 3.5 D Chloride 99 Carbon Dioxide 11 L Anion Gap 28 H BUN 154 H Creatinine 3.21 H Estim Creat Clear Calc 28.1 Estimated GFR 20 POC Glucose Random Glucose Fasting Glucose 80 D Calcium 7.4 L Phosphorus Total Bilirubin AST ALT Alkaline Phosphatase Total Protein Albumin Ur Random Sodium Ethyl Alcohol Blood Type Antibody Screen Crossmatch ([facility]) 05/27/22 05/27/22 05/27/22 05:05 05:05 05:05 WBC 29.3 H RBC 2.77 L Hgb 8.3 L Hct 22.7 L MCV 81.9 MCH 30.0 MCHC 36.6 H RDW 14.0 Plt Count 146 L MPV 9.9 Immature Gran % (Auto) 1.4 H Neut % (Auto) 95.1 H Lymph % (Auto) 0.4 L [place] % (Auto) 1.9 L Eos % (Auto) 1.1 Baso % (Auto) 0.1 Lymph # (Auto) 0.1 L [place] # (Auto) 0.6 Eos # (Auto) 0.3 Baso # (Auto) 0.0 Abs Immat Gran (auto) 0.41 H Absolute Neuts (auto) 27.9 H Absolute Nucleated RBC 0.000 Nucleated RBC % (auto) 0.0 Smear Tech's Comments VBG pH VBG pCO2 VBG pO2 VBG HCO3 VBG O2 Saturation VBG Base Excess Sodium 137 Potassium 3.6 Chloride 99 Carbon Dioxide 15 L Anion Gap 27 H BUN 140 H Creatinine 2.83 H Estim Creat Clear Calc 31.9 Estimated GFR 23 POC Glucose Random Glucose 109 D Fasting Glucose Calcium 7.5 L Phosphorus 7.5 H Total Bilirubin 0.3 AST 24 ALT 15 Alkaline Phosphatase 107 Total Protein 6.0 L Albumin 3.4 L Ur Random Sodium Ethyl Alcohol Blood Type Antibody Screen Crossmatch ([facility]) 05/27/22 05/27/22 05:12 14:40 WBC RBC Hgb Hct MCV MCH MCHC RDW Plt Count MPV Immature Gran % (Auto) Neut % (Auto) Lymph % (Auto) [place] % (Auto) Eos % (Auto) Baso % (Auto) Lymph # (Auto) [place] # (Auto) Eos # (Auto) Baso # (Auto) Abs Immat Gran (auto) Absolute Neuts (auto) Absolute Nucleated RBC Nucleated RBC % (auto) Smear Tech's Comments VBG pH 7.33 VBG pCO2 29 VBG pO2 40 VBG HCO3 15 L VBG O2 Saturation 67.0 VBG Base Excess -8.7 Sodium Potassium Chloride Carbon Dioxide Anion Gap BUN Creatinine Estim Creat Clear Calc Estimated GFR POC Glucose 176 H Random Glucose Fasting Glucose Calcium Phosphorus Total Bilirubin AST ALT Alkaline Phosphatase Total Protein Albumin Ur Random Sodium Ethyl Alcohol Blood Type Antibody Screen Crossmatch ([facility]) Microbiology Microbiology Results: Microbiology 05/26/22 11:34 Blood - Venous Blood Culture - Preliminary No growth after 24 hours. 05/26/22 11:23 Blood - Venous Blood Culture - Preliminary No growth after 24 hours. Quality Stroke Does the patient have a stroke diagnosis?: No VTE Prior VTE?: No VTE Risk Level:: Medical - moderate - high VTE Device Contraindication: N/A - Device Ordered VTE Drug Contraindication: Treatment Not Indicated Critical Care Time Critical Care Time (minutes): 150
--- NOTE | 2022-05-27 16:18 | PM.EVENT ---
Event Note Date of Service: 05/27/22 Event Note: GI consult dictated EGD and colonoscopy planned for 05/29 for further evaluation of nausea/vomiting, ct abnormalities, anemia and heme positive stools. Miralax prep ordered as patient will not tolerate a full golytely prep. Risks and benefits of EGD/colonoscopy discussed with Mr Hammond who understands and agrees to proceed.
[2022-05-27 16:29] LABS: Glucose, Whole Blood 191 mg/dL (60-115)
[2022-05-27] MEDS: Insulin Lispro 100 UNIT/ML 3 ML VIAL SUBCUT (17:50)
[2022-05-27] MEDS: Metoclopramide HCl 10 MG/2 ML VIAL IVPUSH (18:40)
[2022-05-27] MEDS: Pantoprazole Sodium 40 MG/10 ML VIAL IVPUSH (18:40)
--- NOTE | 2022-05-27 21:12 | HO.WOUNDCONS ---
History of Present Illness Data of Consult Service Date: 05/27/22 Primary Care Provider: Connor Mcdaniel MD [facility] Reason for consult: sacral wounds The pt is a 62 year old amputee male with multiple med problems who lived with his mother but she recently and then the pt became very depressed adn didnt want to get out of bed, eat or drink. he got very ill and weak and then called 911 and was brought here to the hospital where his electrolytes were noted to be very off and he was hypovolemic. he was admitted to the icu and resuscitated. he was noted to have sacral wounds which he said was because he was lying on the area and not moving. [facility] Medical History Abdominal wall abscess Acute appendicitis CVA (cerebral vascular accident) Diabetes Diabetes mellitus Heart disease Heart failure with reduced ejection fraction Heart failure with reduced ejection fraction History of left below knee amputation HTN (hypertension) Ischemic cardiomyopathy Paroxysmal atrial fibrillation Family History Father Stroke Aortic valve replaced Mother No problems noted. Surgical History H/O exploratory laparotomy H/O right hemicolectomy History of transmetatarsal amputation of right foot Hx of cholecystectomy Social History Household Members: None Household Members Other:: Mother- takes care of her Housing: House Do you presently have visiting nurse or other home services: No Unable to assess alcohol history related to: Unknown Alcohol intake: former Patient Tobacco Use Status: Former Tobacco user Use of substances other than those prescribed or required for medical reasons: Unknown Currently Displaying Signs/Symptoms of Drug Intoxication Withdrawal: No Advance Directives: Yes Advance Directives on File: Yes Advance Directives Date on File: 01/06/21 Do you have thoughts of harming others: None Do you have a plan to hurt others: No Plan Recently lost weight without trying: Unsure Eating poorly because of decreased appetite: Yes Nutrition Risks: Acute nausea or vomiting x1 week and Anorexia Poor oral hygiene: No service: No Current occupational status: retired and disabled Meds Allergies Allergy/AdvReac Type Severity Reaction Status Date / Time vancomycin [VANCOMYCIN] Allergy Severe STOMACH Verified 04/07/22 14:32 UPSET, ill Active Medications: Current Medications Bisacodyl (Bisacodyl 5 Mg Tablet.) 10 mg PO ONCE@1100 [facility] Bisacodyl (Bisacodyl 5 Mg Tablet.Dr) 10 mg PO ONCE [facility] Hydromorphone HCl (Hydromorphone Hcl 0.5 Mg/0.5 Ml Syringe) 0.5 mg IVPUSH Q2H PRN; Protocol PRN Reason: Pain, Severe (Pain Scale 7-10) Last Admin: 05/27/22 19:51 Dose: 0.5 mg Norepinephrine Bitartrate (Levophed) 8 mg in 250 mls @ 0 mls/hr IVCONT .Q0M [facility]; Protocol Last Titration: 05/27/22 23:20 Dose: 0.08 mcg/kg/min, 13.58 mls/hr Piperacillin Sod/Tazobactam (Sod 2.25 gm/ Sodium Chloride) 50 mls @ 100 mls/hr IV Q6H [facility] Last Admin: 05/27/22 22:11 Dose: 100 mls/hr Dextrose/Lactated Ringer's (D5lr) 1,000 mls @ 50 mls/hr IVCONT .Q20H [facility] Last Admin: 05/28/22 02:03 Dose: Not Given Amino Acids/Electrolytes (Clinimix E 5%-15%) 960 mls @ 40 mls/hr IV ONCE [facility] Stop: 05/28/22 17:59 Insulin Human Lispro (Insulin Lispro 100 Unit/Ml 3 Ml Vial) 0 unit SUBCUT Q6H [facility]; Protocol Last Admin: 05/27/22 17:50 Dose: 2 unit Metoclopramide HCl (Metoclopramide Hcl 10 Mg/2 Ml Vial) 10 mg IVPUSH Q12H [facility] Last Admin: 05/27/22 18:40 Dose: 10 mg Modafinil (Modafinil 100 Mg Tablet) 200 mg PO DAILY [facility] Ondansetron HCl (Ondansetron Hcl 4 Mg/2 Ml Vial) 4 mg IVPUSH Q8H PRN PRN Reason: Nausea Last Admin: 05/27/22 22:11 Dose: 4 mg Pantoprazole Sodium (Pantoprazole Sodium 40 Mg/10 Ml Vial) 40 mg IVPUSH DAILY@0630 [facility] Last Admin: 05/27/22 18:40 Dose: 40 mg Pharmacy Consult (Consult Rx Perform Med Rec) 1 each MISCELLANE ONCE PRN PRN Reason: Consult order Polyethylene Glycol (Polyethylene Glycol 3350 17 Gm Powd.Pack) 238 gm PO ONCE@1300 ONE Stop: 05/28/22 13:01 Sertraline HCl (Sertraline Hcl 25 Mg Tablet) 25 mg PO DAILY [facility] Zinc Oxide (Zinc Oxide 20% Ointment 28.35 Gm Tube) 1 appl TOPICAL DAILY [facility]; Protocol Home Medications Medication Instructions Recorded Confirmed Last Taken Type amiodarone 200 mg tablet 200 mg PO DAILY 05/07/21 05/26/22 05/25/22 History spironolactone 25 mg tablet 25 mg PO DAILY 05/07/21 05/26/22 05/25/22 History omeprazole 20 mg capsule,delayed 1 cap PO BID 07/03/21 05/26/22 05/25/22 History release valsartan 80 mg tablet 80 mg PO DAILY 02/24/22 05/26/22 05/25/22 History aspirin 81 mg tablet,delayed 81 mg PO DAILY 04/07/22 05/26/22 05/25/22 History release (Adult Low Dose Aspirin) furosemide 40 mg tablet 40 mg PO BID 04/07/22 05/26/22 05/25/22 History multivitamin 1 tab PO DAILY 04/07/22 05/26/22 05/25/22 History rivaroxaban 20 mg tablet (Xarelto) 20 mg PO DAILY 04/07/22 05/26/22 05/25/22 History zolpidem 10 mg tablet 10 mg PO BEDTIME PRN Sleep 04/07/22 05/26/22 05/25/22 History gemfibrozil 600 mg tablet 600 mg PO BID 05/26/22 05/26/22 05/25/22 History Physical Exam Vital Signs and Narrative: Vital Signs: Last Vital Signs Temp 99.3 F 05/28/22 02:00 Pulse 77 05/28/22 02:00 Resp 12 05/28/22 02:00 BP 114/45 L 05/28/22 02:00 Pulse Ox 98 05/28/22 02:00 O2 Del Method 05/28/22 02:00 O2 Flow Rate 2 05/28/22 02:00 BMI result Body Mass Index 24.9 Skin: Other: sacral and to superior aspect of the skin surrounding his buttocks pt has skin breakdown over an area 8x2.5 which involves deeper dermis but not into the fat tissue. the area is erythematous and tender but not cellulitic. Results Labs CBC and Chem 7: 05/27/22 05:05 05/27/22 05:05 Labs: Laboratory Results - last 24 hr 05/26/22 05/27/22 05/27/22 20:09 05:05 05:05 MCV 81.9 MCH 30.0 MCHC 36.6 H RDW 14.0 Plt Count 146 L MPV 9.9 Immature Gran % (Auto) 1.4 H Neut % (Auto) 95.1 H Lymph % (Auto) 0.4 L Randall % (Auto) 1.9 L Eos % (Auto) 1.1 Baso % (Auto) 0.1 Lymph # (Auto) 0.1 L Randall # (Auto) 0.6 Eos # (Auto) 0.3 Baso # (Auto) 0.0 Abs Immat Gran (auto) 0.41 H Absolute Neuts (auto) 27.9 H Absolute Nucleated RBC 0.000 Nucleated RBC % (auto) 0.0 VBG pH VBG pCO2 VBG pO2 VBG HCO3 VBG O2 Saturation VBG Base Excess Anion Gap 27 H Estim Creat Clear Calc 31.9 Estimated GFR 23 POC Glucose Random Glucose 109 D Calcium 7.5 L Phosphorus Total Bilirubin 0.3 AST 24 ALT 15 Alkaline Phosphatase 107 Total Protein 6.0 L Albumin 3.4 L Blood Type O Negative Antibody Screen NEGATIVE Crossmatch ([facility]) See Detail 05/27/22 05/27/22 05/27/22 05:05 05:12 14:40 MCV MCH MCHC RDW Plt Count MPV Immature Gran % (Auto) Neut % (Auto) Lymph % (Auto) Randall % (Auto) Eos % (Auto) Baso % (Auto) Lymph # (Auto) Randall # (Auto) Eos # (Auto) Baso # (Auto) Abs Immat Gran (auto) Absolute Neuts (auto) Absolute Nucleated RBC Nucleated RBC % (auto) VBG pH 7.33 VBG pCO2 29 VBG pO2 40 VBG HCO3 15 L VBG O2 Saturation 67.0 VBG Base Excess -8.7 Anion Gap Estim Creat Clear Calc Estimated GFR POC Glucose 176 H Random Glucose Calcium Phosphorus 7.5 H Total Bilirubin AST ALT Alkaline Phosphatase Total Protein Albumin Blood Type Antibody Screen Crossmatch ([facility]) 05/27/22 16:26 MCV MCH MCHC RDW Plt Count MPV Immature Gran % (Auto) Neut % (Auto) Lymph % (Auto) Randall % (Auto) Eos % (Auto) Baso % (Auto) Lymph # (Auto) Randall # (Auto) Eos # (Auto) Baso # (Auto) Abs Immat Gran (auto) Absolute Neuts (auto) Absolute Nucleated RBC Nucleated RBC % (auto) VBG pH VBG pCO2 VBG pO2 VBG HCO3 VBG O2 Saturation VBG Base Excess Anion Gap Estim Creat Clear Calc Estimated GFR POC Glucose 191 H Random Glucose Calcium Phosphorus Total Bilirubin AST ALT Alkaline Phosphatase Total Protein Albumin Blood Type Antibody Screen Crossmatch ([facility]) Assessment and Plan (1) Stage II pressure ulcer of sacral region: Status: Acute Plan pt with stage 2 pressure ulcer from the recent events. pt normally can move around - at this point plan to offload the area and rotate in bed, get up out of bed into chair. first need to deal with his underlying issues and fix his medical electrolyte deficiences. in addition zinc oxide and foam dressing every day to every other day and prn . discussed with icu team
[2022-05-27] MEDS: Sertraline HCL 25 MG TABLET PO (22:44)
[2022-05-27] MEDS: Dextrose 5 % and Lactated Ring 1,000 ML 50 ML IVCONT (22:46)
[2022-05-28] VITALS (25 sets, daily range): BP systolic 94–151; BP diastolic 41–71; PULSE 70–83; RESP 12–21; TEMP 36.6–37.5; O2SAT 93–99
[2022-05-28 02:12] LABS: Glucose, Whole Blood 230 mg/dL (60-115)
[2022-05-28] MEDS: Insulin Lispro 100 UNIT/ML 3 ML VIAL SUBCUT ×4 (02:13→18:36)
[2022-05-28] MEDS: HYDROmorphone HCl 0.5 MG/0.5 ML SYRINGE IVPUSH ×3 (03:32→13:33)
[2022-05-28] MEDS: ondansetron HCL 4 MG/2 ML VIAL IVPUSH ×2 (03:39→17:28)
[2022-05-28] MEDS: Piperacillin Sodium/Tazobactam 2.25 GM in 0.9 % Sodium Chloride 50 ML IV (03:41)
--- NOTE | 2022-05-28 03:48 | CONS_ITS ---
DATE OF SERVICE: 05/27/2022 REFERRING PHYSICIAN: Asad Rodríguez MD REASON FOR CONSULTATION: Anemia and Hemoccult-positive stools. HISTORY OF PRESENT ILLNESS: The patient is a 62-year-old man, who was admitted to the intensive care unit yesterday after presenting to the emergency room with complaints of weakness and vomiting as well as diarrhea. He had reportedly been grieving the of his mother who 2 weeks prior to admission and got to the point where he did not want to eat or drink and called 911 because he felt weak and tired and was unable to keep water down. He reported a few episodes of diarrhea but denied abdominal pain. In the emergency department, he was noted to be significantly dehydrated with acute renal failure with a BUN of 163 and a creatinine of 3.74. He was also anemic with a hematocrit of 24.9, which dropped to 21.5 this morning after significant rehydration with IV fluids. There was no reported bleeding. Stool was occult blood positive. The patient denies any hematemesis or rectal bleeding. He has not had previous evaluation with colonoscopy. Records available here indicate that he underwent upper endoscopy for complaints of nausea and vomiting on June 21, 2019, with findings of duodenitis, esophagitis, and a hiatal hernia. The patient denies any recent NSAID usage and denies any tobacco or alcohol use. He has not had previous colonoscopy. PAST MEDICAL HISTORY: 1. Peripheral arterial disease with left BKA and right transmetatarsal amputation. 2. Diabetes mellitus. 3. CHF. 4. Ischemic cardiomyopathy. 5. Paroxysmal atrial fibrillation, on Xarelto, last dose, 05/25. 6. Appendectomy in 2019 with complications requiring right colon resection and abscess drainage due to abdominal wall abscess. 7. Cardiac catheterization, 03/11/2022. 8. Hypertension. 9. Hyperlipidemia. 10. Gastroesophageal reflux disease. 11. Insomnia. CURRENT MEDICATIONS: His current medication list is reviewed in the chart. ALLERGIES: VANCOMYCIN. FAMILY HISTORY: This is reviewed with the patient and is negative for GI malignancy. SOCIAL HISTORY: There is no current tobacco, alcohol, or substance abuse. REVIEW OF SYSTEMS: SKIN: No pruritus. HEENT: Negative. CARDIOPULMONARY: He denies shortness of breath or chest pain. GASTROINTESTINAL: As above. GENITOURINARY: Negative. NEUROPSYCHIATRIC: Negative. PHYSICAL EXAMINATION: GENERAL: Pleasant male, lying in bed. VITAL SIGNS: Reviewed in the electronic medical record and are stable. SKIN: Anicteric. HEENT: No scleral icterus. NECK: Without lymphadenopathy or thyromegaly. LUNGS: Clear. HEART: Regular rate and rhythm. S1, S2. No murmur. ABDOMEN: Soft without focal masses or tenderness. Bowel sounds are present. No organomegaly is noted. EXTREMITIES: Without edema. LABORATORY DATA: Reviewed. CT scanning is also reviewed. This is interpreted as showing diverticulosis with mild bowel wall thickening of the distal left colon and sigmoid colon, questionable for colitis or diverticulitis. There was question of mild wall thickening of the proximal stomach as well. IMPRESSION: Anemia with Hemoccult-positive stools in the setting of significant electrolyte abnormalities due to dehydration and acute renal failure. The patient is currently undergoing resuscitation in the intensive care unit and will be transfused because of his low hematocrit and history of vascular disease. I did discuss with him endoscopy and colonoscopy for further evaluation of his anemia and Hemoccult-positive stools. He understands risks and benefits and agrees to proceed. This has been ordered with a MiraLAX prep as the patient will not likely tolerate a full 128-ounce GoLYTELY prep. The procedure will be scheduled for Wednesday as his last dose of Xarelto was on May 25, and he has significant renal failure. Thanks for asking me to see him. I will follow him in the hospital with you. MD LEIGHA Willis/TOSHIA / [phone]
[2022-05-28 05:15] LABS: VBG Base Excess 4.1 mmol/L; VBG HCO3 29 mmol/L (22-26); VBG pCO2 46 mmHg; VBG pO2 49 mmHg
[2022-05-28 05:32] LABS: Hematocrit 23.2 % (42.0-52.0); Hemoglobin 8.3 g/dl (14.0-18.0); Mean Corpuscular HGB Conc 35.8 g/dl (31.0-36.0); Mean Corpuscular Hemoglobin 29.9 pg (27.0-33.0); Mean Corpuscular Volume 83.5 fL (80.0-98.0); Platelet Count 138 X10*3/uL (160-400); Red Blood Count 2.78 X10*6/uL (4.60-5.80); Red Cell Distribution Width 14.3 % (11.0-16.0); White Blood Count 19.9 X10*3/uL (4.8-10.8)
[2022-05-28 05:53] LABS: Venous Blood Gas Refer to POC result
[2022-05-28 06:09] LABS: Albumin Level 3.1 g/dL (3.5-5.0); Anion Gap 16 (12-20); Blood Urea Nitrogen 94 mg/dL (9-16); Calcium 7.5 mg/dL (8.4-10.2); Carbon Dioxide 24 mmol/L (22-29); Chloride 106 mmol/L (96-108); Creatinine Clr Calc Pharmacy 67.4; Estimated Glomerular Filt Rate 54; Glucose Random 227 mg/dL (60-115); Magnesium 1.7 mg/dL (1.6-2.6); Phosphorus 3.4 mg/dL (2.7-4.5); Potassium 2.7 mmol/L (3.3-5.1); Sodium 143 mmol/L (135-145)
[2022-05-28 06:31] LABS: Glucose, Whole Blood 207 mg/dL (60-115)
[2022-05-28] MEDS: Pantoprazole Sodium 40 MG/10 ML VIAL IVPUSH (06:33)
--- NOTE | 2022-05-28 07:06 | PC.NURSE ---
Upon initial assessment, patients LEvophed running at 0.04mcg/kg/min. Patients MAP 83. Levophed titrated down to 0.02mcg/kg/min. Blood pressure reassessed, MAP now 93. Levophed gtt paused.
[2022-05-28] MEDS: Potassium Chloride/H20 10 MEQ/100 ML PIGGYBACK 100 MEQ IV ×4 (07:20→11:00)
[2022-05-28] MEDS: Metoclopramide HCl 10 MG/2 ML VIAL IVPUSH ×2 (07:21→18:36)
[2022-05-28] MEDS: Sertraline HCL 25 MG TABLET PO (08:43)
[2022-05-28] MEDS: modafiniL 100 MG TABLET 200 MG PO (08:43)
--- NOTE | 2022-05-28 09:18 | PM.GIPN ---
Subjective Subjective Date of Service: 05/28/22 Interval History: still c/o dry heaves and epigastric discomfort Critical Care Time (minutes): 0 Physical Exam Vital Signs: Vital Signs: Last Vital Signs Temp 98.2 F 05/28/22 09:00 Pulse 73 05/28/22 09:00 Resp 12 05/28/22 09:00 BP 118/48 L 05/28/22 09:00 Pulse Ox 96 05/28/22 09:00 O2 Del Method 05/28/22 09:00 O2 Flow Rate 1 05/28/22 09:00 BMI result Body Mass Index 24.9 GI: Other: sbdomen is soft and nontender Objective Data Labs CBC & Chem 7: 05/28/22 05:05 05/28/22 05:05 Labs: Laboratory Results - last 24 hr 05/26/22 05/27/22 05/27/22 20:09 14:40 16:26 WBC RBC Hgb Hct MCV MCH MCHC RDW Plt Count MPV Absolute Nucleated RBC Nucleated RBC % (auto) VBG pH VBG pCO2 VBG pO2 VBG HCO3 VBG O2 Saturation VBG Base Excess Sodium Potassium Chloride Carbon Dioxide Anion Gap BUN Creatinine Estim Creat Clear Calc Estimated GFR POC Glucose 176 H 191 H Random Glucose Calcium Phosphorus Magnesium Albumin Blood Type O Negative Antibody Screen NEGATIVE Crossmatch ([facility]) See Detail 05/28/22 05/28/22 05/28/22 02:09 05:05 05:05 WBC 19.9 H RBC 2.78 L Hgb 8.3 L Hct 23.2 L MCV 83.5 MCH 29.9 MCHC 35.8 RDW 14.3 Plt Count 138 L MPV 10.0 Absolute Nucleated RBC 0.000 Nucleated RBC % (auto) 0.0 VBG pH VBG pCO2 VBG pO2 VBG HCO3 VBG O2 Saturation VBG Base Excess Sodium 143 Potassium 2.7 L D Chloride 106 Carbon Dioxide 24 Anion Gap 16 BUN 94 H D Creatinine 1.34 Estim Creat Clear Calc 67.4 Estimated GFR 54 POC Glucose 230 H Random Glucose 227 H D Calcium 7.5 L Phosphorus 3.4 Magnesium 1.7 Albumin 3.1 L Blood Type Antibody Screen Crossmatch ([facility]) 05/28/22 05/28/22 05:10 06:24 WBC RBC Hgb Hct MCV MCH MCHC RDW Plt Count MPV Absolute Nucleated RBC Nucleated RBC % (auto) VBG pH 7.40 VBG pCO2 46 VBG pO2 49 VBG HCO3 29 H VBG O2 Saturation 78.0 VBG Base Excess 4.1 Sodium Potassium Chloride Carbon Dioxide Anion Gap BUN Creatinine Estim Creat Clear Calc Estimated GFR POC Glucose 207 H Random Glucose Calcium Phosphorus Magnesium Albumin Blood Type Antibody Screen Crossmatch ([facility]) Microbiology Microbiology Results: Microbiology 05/26/22 11:34 Blood - Venous Blood Culture - Preliminary No growth after 24 hours. 05/26/22 11:23 Blood - Venous Blood Culture - Preliminary No growth after 24 hours. Procedures Date of Service Date of Service: 05/28/22 Progress Note: A&P Assessment and plan (1) Occult GI bleeding: Status: Acute Assessment and Plan: hematocrit stable after 1 unit of PRBC's no signs of active bleeding egd/colonoscopy tomorrow Time Spent With Patient Time: Total time spent is greater than 50% in coordination of care (as documented) at patient's floor/unit and/or counseling patient: Quality Stroke Does the patient have a stroke diagnosis?: No VTE Prior VTE?: No VTE Risk Level:: Medical - moderate - high VTE Device Contraindication: N/A - Device Ordered VTE Drug Contraindication: Treatment Not Indicated
[2022-05-28] MEDS: Zinc Oxide 20% Ointment 28.35 GM TUBE 1 APPL TOPICAL (09:55)
--- NOTE | 2022-05-28 10:17 | MHC.CLN ---
PT IS MODERATELY MALNOURISHED PT WITH MILDLY DEPLETED MUSCLE MASS AND REPORTS POOR PO X 2 WEEKS R/T RECENT OF HIS MOTHER CAUSING DEPRESSION AND PT WITH N/V/D DISCUSSED AT ROUNDS WITH MD-PT RECEIVED TPN D15AA5% LAST NIGHT AT 40ML/HR DIET RX: 2200DM 2GM NA-APPROPRIATE PT RECEIVING ENSURE CLEAR TID TO INCREASE KCALS AND PROMOTE WOUND HEALING SUPP PROVIDES 720KCALS, 24G PROTEIN PT TAKING ONLY SIPS OF FLUIDS AT BEDSIDE RECOMMEND INCREASING TPN D15AA5 TO 75ML/HR TO PROVIDE 1278KCALS, 90G PROTEIN DISCUSSED WITH PHARMACY; REPLETE LYTES NEEDED IF NAUSEA RESOLVES-RECOMMEND SWITCHING TO ENSURE ENLIVE SUPPLEMENT TO PROVIDE 1020KCALS, 60G PROTEIN NSG REPORTED PT REFUSES TO BE REPOSITIONED OFF BUTTOCKS MONITOR PO INTAKE CLOSELY SEE ALSO FULL CLINICAL NUTRITION ASSESSMENT
[2022-05-28] MEDS: Piperacillin Sodium/Tazobactam 3.375 GM in 0.9 % Sodium Chloride 50 ML IV ×3 (11:01→23:00)
[2022-05-28 11:05] LABS: Triglycerides 172 mg/dL
[2022-05-28 13:12] LABS: Glucose, Whole Blood 242 mg/dL (60-115)
[2022-05-28] MEDS: bisacodyL 5 MG TABLET.DR 10 MG PO (13:14)
[2022-05-28] MEDS: polyethylene glycoL 3350 17 GM POWD.PACK 238 GM PO (13:34)
--- NOTE | 2022-05-28 14:19 | P.PNCC_ITS ---
Subjective Subjective Date of Service: 05/28/22 Interval History: Mr. Hammond was admitted to the ICU on May 26 with hypovolemic shock. The patient is a 62-year-old male w PMHx of diabetes, hypertension, hyperlipidemia, peripheral vascular disease complicated by trans met amputation in 2007 and left BKA in 2015, CAD status post cath February, ischemic cardiomyopathy, systolic CHF, PAfib on Xarelto, GERD, and insomnia.? 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 Last echo 03/2021 showed:? Moderately dilated LV with severe LV systolic dysfunction with EF of 20-25% with grade 2 diastolic dysfunction with underlying RWMAs; moderately dilated LA; [id number] mitral regurgitation; dilated IVC with no inspiratory collapse; and RVSP 49 mm. For the last number of years, the patient had been living with and caring for his parents.? His father about 5 years ago.? Then his mother 2 weeks ago.? Since her passing, the patient has been grieving her loss and been significantly depressed, not wanting to eat or drink and lying in bed all the time.? For the last week or so, has not been able to eat or drink, when he tried to drink, it would just come back up.? Had a few episodes of diarrhea also.? He called 911 on the morning of April 26 feeling so weak and tired.? No hematemesis or hematochezia.? No fever. In the ED, he was alert and oriented, in no distress, very weak appearing.? Heart rate 67, blood pressure 85/43.? Breathing easy, afebrile.? General exam was benign, except that the patient had a large stage II pressure ulcer on his sacrum (see picture in the ED physician's note).? Stool was brown but guaiac positive. ED labs showed WBC 24, Hb 8.9 (baseline 11), sodium 125, BUN/creatinine 172/4.1, bicarb was 10, potassium 5.0, troponin was 40 with a flat follow-up.? Lactic acid was normal.? Tox screen was negative for salicylates, acetaminophen, and acetone.? ABG showed 7.17/21/124/-18 (unstated FiO2).? Urinalysis was negative.? His blood gas revealed a pH of 7.17, pCO2 21, PO2 124, HC03 of 8.? COVID negative.? Abdom CT without contrast revealed diverticulosis with possible diverticulitis versus colitis in the distal and sigmoid colon; possible wall thickening of proximal stomach. His BP dropped into the 70s.? After 3 L of fluid failed to improve his BP, a CVL was placed and he was started on pressors.? He was also given Levaquin, Flagyl, and bicarbonate.? He was admitted to the ICU because of refractory hypotension.? In the ICU fluid resuscitation was continued.? He was continued on Zosyn.? A wound consult was placed.? His Xarelto was held, pending identification of a bleeding source. Yesterday we continued vol resuscitation.? Levophed was tapered as his BP, renal indices, and metabolic acidosis improved.? We gave him one unit RBCs for hemoglobin of 8.3 in the presence of coronary disease and ischemic cardiomyopathy.? We continued the Zosyn for empiric sepsis coverage and started him on TPN for nutrition; still unable to keep anything down.? He was seen by Dr. Martinez from Wound Care, and by Dr. Wilder for GI.? A prep was scheduled for upper and lower endoscopy. Early this morning, he came off Levophed.? He?s making copious urine. ?We started him on Provigil this morning.? He looks a little but noticeably more animated this morning than yesterday, although still washed out.? He is still retching but nothing is coming up.? Barely able to keep down the bowel prep. ?Breathing easy, with sat high 90s on room air.? CVBG showed 7.40/46/+4.? HR 77.? On the monitor and on his EKG, his rhythm is regular but probably not sinus, looks more of a high junctional rhythm, with IVCD.? BP 115/43 off Levophed.? No JVD.? Chest CTA w normal expiratory phase.? Heart rate and rhythm regular, with normal-sounding S1 and S2, with no murmur or gallops.? Abdomen is flat, positive bowel sounds, benign.? No peripheral edema. LABORATORY DATA: ?Below.? Notably, WBC is down to 19, Hb unchanged at 8.3 despite the 1 unit of blood yesterday. ?Sodium up to 143, BUN/creatinine down to 94/1.3 (was 140/2.8 yesterday), potassium down to 2.7, bicarb up to 24, glucose 227, phosphorus down to 3.4, albumin down to 3.1. IMPRESSION: 1. Underlying DM.? Now on a sliding scale. 2. Underlying CAD w ischemic cardiomyopathy.? Undoubtedly partly responsible for his low blood pressure. ?In fact, his ideal blood pressure is probably around 100 systolic, certainly no higher than 110 mm. 3. PAfib, was on Xarelto.? Now in a regular rhythm.? Stopped the Xarelto in case of GI bleeding. 4. Underlying PVD. 5. Refractory hypotension.? Secondary to severe hypovolemia, with lack of compensatory cardiovascular reserve because of his severe ischemic cardiomyopathy.? And his hypoalbuminemia and anemia are contributing factors.? I?m fairly confident he was never in septic shock -- his lactate was normal, his mental status was normal, and his breathing was normal.? He has definitely improved, but still dehydrated, based on his renal indices and dry mucous membranes.? We?re continuing volume resuscitation. 6. ANDRÉS.? 2? severe hypovolemia. 7. Possible diverticulitis or and or possible colitis on CT.? His belly is clinically benign and he isn't having active diarrhea.? No imperative to do anything.? It is reasonable to continue antibiotics for a couple of days to see how things shake out.? So far, his WBC is improving.? Would plan a 3-5 day course of Abx, no more than that. 8. ID:? With his hypotension and leukocytosis, I can?t r/o sepsis, but I doubt it, for the above reasons, and also bec we don?t have an obvious source.? His belly is clinically benign.? I do agree with continuing abx, as above. 9. H/o GERD.? And on the CT scan, possible wall thickening of the proximal stomach was noted.? I wonder if either GERD or possibly gastroparesis are playing a role in his current problem.? I have him on PPI and Reglan.? Dr. Wilder has scheduled him for EGD and colonoscopy tomorrow.? May have to put down a KO feed tube to get the full prep into him. 10. Anemia.? He does have chronic anemia, which is worse now.? He also has guaiac-positive, brown stool.? We?ve stopped the Xarelto.? EGD and colonoscopy tomorrow.? With his hemoglobin of 8.3 and his coronary artery disease with ischemic cardiomyopathy and his refractory hypotension, I?ll transfuse him another unit RBCs. 11. Severe metabolic acidosis.? 2? ANDRÉS.? Resolved 12. Hyponatremia.? 2? hypovolemia.? Resolved. 13. Acute thrombocytopenia.? 2? critical illness. 14. Stage 2 sacrococcyge[address] pressure ulcer.? Dr. Howard has seen him.? Usual management. 15. At least moderate protein calorie malnutrition.? Started TPN yesterday. 16. Hypoanimated depression:? Started on Zoloft and Provigil.? Psychiatry consult ordered [place] [facility] [place] I will sign out to the hospitalists. Critical Care Time (minutes): 0 Physical Exam Vital Signs: Vital Signs: Last Vital Signs Temp 98.4 F 05/28/22 14:00 Pulse 75 05/28/22 14:00 Resp 18 05/28/22 14:00 BP 115/43 L 05/28/22 14:00 Pulse Ox 94 05/28/22 14:00 O2 Del Method 05/28/22 14:00 O2 Flow Rate 1 05/28/22 13:00 BMI result Body Mass Index 24.9 Objective Data Labs CBC & Chem 7: 05/28/22 05:05 05/28/22 05:05 Labs: Laboratory Results - last 24 hr 05/26/22 05/27/22 05/27/22 20:09 14:40 16:26 WBC RBC Hgb Hct MCV MCH MCHC RDW Plt Count MPV Absolute Nucleated RBC Nucleated RBC % (auto) VBG pH VBG pCO2 VBG pO2 VBG HCO3 VBG O2 Saturation VBG Base Excess Sodium Potassium Chloride Carbon Dioxide Anion Gap BUN Creatinine Estim Creat Clear Calc Estimated GFR POC Glucose 176 H 191 H Random Glucose Calcium Phosphorus Magnesium Albumin Triglycerides Blood Type O Negative Antibody Screen NEGATIVE Crossmatch ([facility]) See Detail 05/28/22 05/28/22 05/28/22 02:09 05:05 05:05 WBC 19.9 H RBC 2.78 L Hgb 8.3 L Hct 23.2 L MCV 83.5 MCH 29.9 MCHC 35.8 RDW 14.3 Plt Count 138 L MPV 10.0 Absolute Nucleated RBC 0.000 Nucleated RBC % (auto) 0.0 VBG pH VBG pCO2 VBG pO2 VBG HCO3 VBG O2 Saturation VBG Base Excess Sodium 143 Potassium 2.7 L D Chloride 106 Carbon Dioxide 24 Anion Gap 16 BUN 94 H D Creatinine 1.34 Estim Creat Clear Calc 67.4 Estimated GFR 54 POC Glucose 230 H Random Glucose 227 H D Calcium 7.5 L Phosphorus 3.4 Magnesium 1.7 Albumin 3.1 L Triglycerides 172 Blood Type Antibody Screen Crossmatch ([facility]) 05/28/22 05/28/22 05/28/22 05:10 06:24 13:08 WBC RBC Hgb Hct MCV MCH MCHC RDW Plt Count MPV Absolute Nucleated RBC Nucleated RBC % (auto) VBG pH 7.40 VBG pCO2 46 VBG pO2 49 VBG HCO3 29 H VBG O2 Saturation 78.0 VBG Base Excess 4.1 Sodium Potassium Chloride Carbon Dioxide Anion Gap BUN Creatinine Estim Creat Clear Calc Estimated GFR POC Glucose 207 H 242 H Random Glucose Calcium Phosphorus Magnesium Albumin Triglycerides Blood Type Antibody Screen Crossmatch ([facility]) Microbiology Microbiology Results: Microbiology 05/26/22 11:34 Blood - Venous Blood Culture - Preliminary No growth after 48 hours. 05/26/22 11:23 Blood - Venous Blood Culture - Preliminary No growth after 48 hours. Quality Stroke Does the patient have a stroke diagnosis?: No VTE Prior VTE?: No VTE Risk Level:: Medical - moderate - high VTE Device Contraindication: N/A - Device Ordered VTE Drug Contraindication: Treatment Not Indicated
[2022-05-28] MEDS: Dextrose 5 % and Lactated Ring 1,000 ML 50 ML IVCONT (18:17)
[2022-05-28 18:26] LABS: Glucose, Whole Blood 194 mg/dL (60-115)
[2022-05-29] VITALS (10 sets, daily range): BP systolic 104–158; BP diastolic 35–71; PULSE 76–97; RESP 14–20; TEMP 36.4–36.9; O2SAT 95–100; BMI 24.7
[2022-05-29] MEDS: ondansetron HCL 4 MG/2 ML VIAL IVPUSH (00:30)
[2022-05-29] MEDS: HYDROmorphone HCl 0.5 MG/0.5 ML SYRINGE IVPUSH ×3 (00:30→22:36)
[2022-05-29 01:07] LABS: Glucose, Whole Blood 182 mg/dL (60-115)
[2022-05-29] MEDS: Insulin Lispro 100 UNIT/ML 3 ML VIAL SUBCUT ×4 (01:11→18:37)
[2022-05-29 05:53] LABS: Glucose, Whole Blood 288 mg/dL (60-115)
[2022-05-29] MEDS: Pantoprazole Sodium 40 MG/10 ML VIAL IVPUSH (06:39)
[2022-05-29] MEDS: Piperacillin Sodium/Tazobactam 3.375 GM in 0.9 % Sodium Chloride 50 ML IV ×4 (06:39→22:25)
[2022-05-29 07:04] LABS: Hematocrit 24.4 % (42.0-52.0); Hemoglobin 8.6 g/dl (14.0-18.0); Mean Corpuscular HGB Conc 35.2 g/dl (31.0-36.0); Mean Corpuscular Hemoglobin 30.2 pg (27.0-33.0); Mean Corpuscular Volume 85.6 fL (80.0-98.0); Mean Platelet Volume 10.1 fL (9.4-12.4); Platelet Count 114 X10*3/uL (160-400); Red Blood Count 2.85 X10*6/uL (4.60-5.80); Red Cell Distribution Width 14.1 % (11.0-16.0)
[2022-05-29 07:24] LABS: B Type Natriuretic Peptide 1537 pg/mL (<100)
[2022-05-29 07:45] LABS: Albumin Level 3.2 g/dL (3.5-5.0); Anion Gap 12 (12-20); Blood Urea Nitrogen 53 mg/dL (9-16); Calcium 8.1 mg/dL (8.4-10.2); Carbon Dioxide 26 mmol/L (22-29); Chloride 106 mmol/L (96-108); Creatinine Clr Calc Pharmacy 107.5; Estimated Glomerular Filt Rate > 60; Glucose Random 318 mg/dL (60-115); Magnesium 1.7 mg/dL (1.6-2.6); Phosphorus 1.6 mg/dL (2.7-4.5); Potassium 3.3 mmol/L (3.3-5.1); Sodium 141 mmol/L (135-145)
[2022-05-29] MEDS: Metoclopramide HCl 10 MG/2 ML VIAL IVPUSH ×2 (09:30→19:04)
[2022-05-29] MEDS: Zinc Oxide 20% Ointment 28.35 GM TUBE 1 APPL TOPICAL (09:36)
--- NOTE | 2022-05-29 10:07 | P.PNIM_ITS ---
Subjective Subjective Date of Service: 05/29/22 Interval History: seen and examined this morning Downgraded from the ICU overnight Patient reports nausea and vomiting overnight. Denies abdominal pain Review of Systems Review of Systems: Yes all other systems are reviewed and are negative Constitutional Constitutional: Denies chills and Denies fever(s) ENT Ears, Nose, Mouth, and Throat: Denies dizziness Cardiovascular Cardiovascular: Denies chest pain, Denies palpitations and Denies dyspnea Respiratory Respiratory: Denies cough and Denies dyspnea Gastrointestinal Gastrointestinal: Denies abdominal pain, Reports nausea and Reports vomiting Neurologic Neurologic: Denies dizziness Endocrine Endocrine: Denies palpitations Physical Exam Vital Signs: Vital Signs: Last Vital Signs Temp 98.2 F 05/29/22 07:51 Pulse 96 05/29/22 07:51 Resp 18 05/29/22 07:51 BP 141/67 H 05/29/22 07:51 Pulse Ox 95 05/29/22 07:51 O2 Del Method 05/29/22 07:51 O2 Flow Rate 1 05/28/22 13:00 BMI result Body Mass Index 24.7 Const: General: cooperative, no acute distress, alert and awake Nutritional Appearance: average body habitus Orientation/consciousness: patient oriented x3 Resp: Effort & Inspection: normal respiratory effort and able to speak in complete sentences Auscultation: clear to auscultation bilaterally Cardio: Rate: regular rate Heart sounds: S1 normal heart sound present and S2 normal heart sound present GI: Inspection: No distended Palpation (GI): Soft to palpation and nontender Skin: Other: abrasion central forehead, no surrounding erythema Neuro: General: patient oriented x3 and CN's II-XI intact bilaterally Extrem: Other: s/p left BKA, right transmetatarsal amputation Objective Data Active Medications Bisacodyl (Bisacodyl 5 Mg Tablet.) 10 mg PO ONCE@1100 KANCHAN Last Admin: 05/28/22 13:14 Dose: 10 mg Documented By: JAN Bisacodyl (Bisacodyl 5 Mg Tablet.) 10 mg PO ONCE KANCHAN Hydromorphone HCl (Hydromorphone Hcl 0.5 Mg/0.5 Ml Syringe) 0.5 mg IVPUSH Q2H PRN; Protocol PRN Reason: Pain, Severe (Pain Scale 7-10) Last Admin: 05/29/22 00:30 Dose: 0.5 mg Documented By: ICNTHYA Dextrose/Lactated Ringer's (D5lr) 1,000 mls @ 50 mls/hr IVCONT .Q20H [facility] Last Admin: 05/28/22 18:17 Dose: 50 mls/hr Documented By: JOSE RAFAEL Piperacillin Sod/Tazobactam (Sod 3.375 gm/ Sodium Chloride) 50 mls @ 100 mls/hr IV Q6H [facility] Last Infusion: 05/29/22 08:42 Dose: 0 mls/hr Documented By: DALY Potassium Chloride 60 meq/Magnesium Sulfate 16 meq/Potassium Phosphate 30 mmol/Calcium Gluconate 9.3 meq/Multivitamins 10 ml/ Trace Metals 1 ml/ Amino Acids/Dextrose 1,800 mls @ 75 mls/hr IV DAILY@1800 [facility] Stop: 05/29/22 17:59 Last Admin: 05/28/22 18:18 Dose: 75 mls/hr Documented By: JOSE RAFAEL Insulin Human Lispro (Insulin Lispro 100 Unit/Ml 3 Ml Vial) 0 unit SUBCUT Q6H [facility]; Protocol Last Admin: 05/29/22 06:39 Dose: 6 unit Documented By: CINTHYA Metoclopramide HCl (Metoclopramide Hcl 10 Mg/2 Ml Vial) 10 mg IVPUSH Q12H [facility] Last Admin: 05/29/22 09:30 Dose: 10 mg Documented By: DALY Modafinil (Modafinil 100 Mg Tablet) 200 mg PO DAILY [facility] Last Admin: 05/29/22 09:32 Dose: Not Given Documented By: DALY Non-Admin Reason: NPO Ondansetron HCl (Ondansetron Hcl 4 Mg/2 Ml Vial) 4 mg IVPUSH Q8H PRN PRN Reason: Nausea Last Admin: 05/29/22 00:30 Dose: 4 mg Documented By: CINTHYA Comments: Confirmed with MD aleman to give med early Pantoprazole Sodium (Pantoprazole Sodium 40 Mg/10 Ml Vial) 40 mg IVPUSH DAILY@0630 [facility] Last Admin: 05/29/22 06:39 Dose: 40 mg Documented By: CINTHYA Pharmacy Consult (Consult Rx Perform Med Rec) 1 each MISCELLANE ONCE PRN PRN Reason: Consult order Sertraline HCl (Sertraline Hcl 25 Mg Tablet) 25 mg PO DAILY KANCHAN Last Admin: 05/29/22 09:32 Dose: Not Given Documented By: DALY Non-Admin Reason: NPO Sodium Biphosphate/Sodium Phosphate (Sodium Phosphate,[place]-Dibasic 133 Ml Enema) 133 ml PA ONCE ONE Stop: 05/29/22 13:01 Zinc Oxide (Zinc Oxide 20% Ointment 28.35 Gm Tube) 1 appl TOPICAL DAILY KANCHAN; Protocol Last Admin: 05/29/22 09:36 Dose: 1 appl Documented By: DALY Labs CBC & Chem 7: 05/29/22 06:54 05/29/22 06:54 Labs: Laboratory Results - last 24 hr 05/26/22 05/28/22 05/28/22 20:09 05:05 13:08 MCV MCH MCHC RDW Plt Count MPV Absolute Nucleated RBC Nucleated RBC % (auto) Anion Gap Estim Creat Clear Calc Estimated GFR POC Glucose 242 H Random Glucose Calcium Phosphorus Magnesium B-Natriuretic Peptide Albumin Triglycerides 172 Blood Type O Negative Antibody Screen NEGATIVE Crossmatch ([facility]) See Detail 05/28/22 05/29/22 05/29/22 18:22 01:03 05:48 MCV MCH MCHC RDW Plt Count MPV Absolute Nucleated RBC Nucleated RBC % (auto) Anion Gap Estim Creat Clear Calc Estimated GFR POC Glucose 194 H 182 H 288 H Random Glucose Calcium Phosphorus Magnesium B-Natriuretic Peptide Albumin Triglycerides Blood Type Antibody Screen Crossmatch ([facility]) 05/29/22 05/29/22 05/29/22 06:54 06:54 06:54 MCV 85.6 MCH 30.2 MCHC 35.2 RDW 14.1 Plt Count 114 L MPV 10.1 Absolute Nucleated RBC 0.000 Nucleated RBC % (auto) 0.0 Anion Gap 12 Estim Creat Clear Calc 107.5 Estimated GFR > 60 POC Glucose Random Glucose 318 H D Calcium 8.1 L D Phosphorus 1.6 L Magnesium 1.7 B-Natriuretic Peptide 1537 H Albumin 3.2 L Triglycerides Blood Type Antibody Screen Crossmatch ([facility]) Microbiology Microbiology Results: Microbiology 05/26/22 11:34 Blood Culture - Preliminary Blood - Venous No growth after 48 hours. 05/26/22 11:23 Blood Culture - Preliminary Blood - Venous No growth after 48 hours. Assessment and Plan (1) Stage II pressure ulcer of sacral region: Status: Acute (2) Occult GI bleeding: Status: Acute Plan This is a 62-year-old male with a history of PAD, CAD, PAF on Xarelto, HFrEF, ICM, DM with multiple amputations, HTN, HLD who initially presented to the ED 05/26 after not eating or getting out of bed for 2 weeks due to the recent of his mother and was initially admitted to the ICU due to metabolic acidosis, ANDRÉS, anemia and hypovolemic shock requiring pressors downgraded to the medical floor 05/28 Hypovolemic shock Thought to be secondary to severe hypovolemia with underlying severe ischemic cardiomyopathy and lack of compensatory cardiovascular reserve Imaging showing possible diverticulitis versus colitis but No significant diarrhea while in ICU, was not felt to represent sepsis Leukocytosis trending down. Started on zosyn 05/28, will continue 5 day course Anemia with heme + stools no overt bleeding noted Seen by GI- plan for EGD/colo today H/H stable; s/p transfusion in ICU IV PPI Xarelto on hold Stage II sacralcoccygeal pressure ulcer Seen by wound care Continue local wound care Depression started on sertraline and provigil in ICU psych consult pending PAF amiodarone held in ICU xarelto on hold for anemia CAD aspirin on hold for anemia coerg on hold DM Not on diabetic meds at baseline? SSI HTN valsartan, coreg on hold BP improving will resume meds as BP allows HFrEF Last echo 03/2021 showed:? Moderately dilated LV with severe LV systolic dysfunction with EF of 20-25% with grade 2 diastolic dysfunction with underlying RWMAs; moderately dilated LA; [id number] mitral regurgitation -lasix, aldactone on hold -monitor fluid status closely Thrombocytopenia Related to acute illness Follow CBC HLD Gemfibrozil on hold Moderate protein calorie malnutrition Started on TPN in ICU Will resume diet after EGD/colonoscopy, if able to tolerate p.o. can discontinue TPN ANDRÉS. Secondary to hypovolemia - resolved Metabolic acidosis. Secondary to ANDRÉS- resolved Hyponatremia. Secondary to hypovolemia- resolved Hypokalemia. Resolved DVT ppx - xrelto on hold for anemia Attending - Dr. Barillas Patient requires ongoing inpatient hospitalization for management and workup of anemia Quality Stroke Does the patient have a stroke diagnosis?: No VTE Prior VTE?: No VTE Risk Level:: Medical - moderate - high VTE Device Contraindication: N/A - Device Ordered VTE Drug Contraindication: Treatment Not Indicated
--- NOTE | 2022-05-29 11:01 | MHC.CLN ---
F/U PT IS MODERATELY MALNOURISHED SEE ALSO FULL CLINICAL NUTRITION ASSESSMENT DATED 05/27/22 PER PA-Will resume diet after EGD/colonoscopy, if able to tolerate p.o. can discontinue TPN PT IS CURRENTLY NPO PENDING PROCEDURE PT WAS UNABLE TO TAKE ANY SIGNIFICANT PO DURING ICU STAY R/T N/V IF NAUSEA/VOMITING RESOLVES-RECOMMEND ADDING ENSURE ENLIVE TID SUPPLEMENT TO PROVIDE 1020KCALS, 60G PROTEIN MONITOR PO INTAKE CLOSELY IF TPN TO CONTINUE; RECOMMEND INCREASING TPN [id number] TO 85ML/HR TO PROVIDE 1448KCALS, 102G PROTEIN REVIEWED LABS, DISCUSSED WITH PHARMACY; REPLETE LYTES NEEDED
[2022-05-29 11:26] LABS: Glucose, Whole Blood 227 mg/dL (60-115)
--- NOTE | 2022-05-29 11:39 | MHC.CM.PN ---
PER MD ROUNDS, PT WILL NOT DC TODAY EGD AND COLONOSCOPY PENDING DCP REMAINS HOME VIA FAMILY TRANSPORT
[2022-05-29] MEDS: Sodium Phosphate,Mono-Dibasic 133 ML ENEMA PR (13:29)
[2022-05-29 14:51] LABS: Glucose, Whole Blood 164 mg/dL (60-115)
--- NOTE | 2022-05-29 14:54 | P.CONAN_ITS ---
HPI - Anesthesia Eval Consult details Narrative: 62 yo male patient for EGD, Colonoscopy [facility] Active Problems Active Problems: All Active Problems (Updated 05/28/22 @ 02:17 by Jazzmine Martinez MD) Stage II pressure ulcer of sacral region (Acute) Vomiting (Acute) Acute hyponatremia (Acute) Acute kidney injury (Acute) Occult GI bleeding (Acute) Metabolic acidosis (Acute) CAD (coronary artery disease) (Acute) S/P cardiac cath (Acute) Paroxysmal atrial fibrillation (Acute) Heart failure with reduced ejection fraction (Acute) Ischemic cardiomyopathy (Acute) Abdominal wall abscess (Acute) Diabetes mellitus (Acute) Abnormal nuclear stress test (Acute) Preop cardiovascular exam (Acute) Leg swelling (Acute) Shortness of breath (Acute) Past Medical History Medical History Abdominal wall abscess Acute appendicitis CVA (cerebral vascular accident) Diabetes Diabetes mellitus Heart disease Heart failure with reduced ejection fraction Heart failure with reduced ejection fraction History of left below knee amputation HTN (hypertension) Ischemic cardiomyopathy Paroxysmal atrial fibrillation Family History Family History Father Stroke Aortic valve replaced Mother No problems noted. Family history of problems with anesthesia: No Surgical History Surgical History H/O exploratory laparotomy H/O right hemicolectomy History of transmetatarsal amputation of right foot Hx of cholecystectomy History of Problems with Anesthesia: No Social History Social History Household Members: None Household Members Other:: Mother- takes care of her Housing: House Do you presently have visiting nurse or other home services: No Unable to assess alcohol history related to: Unknown Alcohol intake: former Patient Tobacco Use Status: Former Tobacco user Use of substances other than those prescribed or required for medical reasons: No Currently Displaying Signs/Symptoms of Drug Intoxication Withdrawal: No Are you DNR?: No Advance Directives: Yes Advance Directives on File: Yes Advance Directives Date on File: 01/06/21 Do you have thoughts of harming others: None Do you have a plan to hurt others: No Plan Recently lost weight without trying: Unsure Eating poorly because of decreased appetite: Yes Nutrition Risks: Acute nausea or vomiting x1 week and Anorexia Poor oral hygiene: No service: No Current occupational status: retired and disabled Meds Allergies Allergy/AdvReac Type Severity Reaction Status Date / Time vancomycin [VANCOMYCIN] Allergy Severe STOMACH Verified 04/07/22 14:32 UPSET, ill Active Medications: Current Medications Bisacodyl (Bisacodyl 5 Mg Tablet.) 10 mg PO ONCE@1100 [facility] Last Admin: 05/29/22 12:15 Dose: Not Given Bisacodyl (Bisacodyl 5 Mg Tablet.) 10 mg PO ONCE K[facility]CHAN Hydromorphone HCl (Hydromorphone Hcl 0.5 Mg/0.5 Ml Syringe) 0.5 mg IVPUSH Q2H PRN; Protocol PRN Reason: Pain, Severe (Pain Scale 7-10) Last Admin: 05/29/22 00:30 Dose: 0.5 mg Piperacillin Sod/Tazobactam (Sod 3.375 gm/ Sodium Chloride) 50 mls @ 100 mls/hr IV Q6H [facility] Stop: 06/02/22 10:59 Last Infusion: 05/29/22 12:18 Dose: Infused Potassium Chloride 60 meq/Magnesium Sulfate 16 meq/Potassium Phosphate 30 mmol/Calcium Gluconate 9.3 meq/Multivitamins 10 ml/ Trace Metals 1 ml/ Amino Acids/Dextrose 1,800 mls @ 75 mls/hr IV DAILY@1800 KANCHAN Stop: 05/29/22 17:59 Last Admin: 05/28/22 18:18 Dose: 75 mls/hr Potassium Chloride 80 meq/Magnesium Sulfate 16 meq/Potassium Phosphate 40 mmol/Calcium Gluconate 9.3 meq/Multivitamins 10 ml/ Trace Metals 1 ml/ Amino Acids/Dextrose 2,040 mls @ 85 mls/hr IV DAILY@1800 [facility] Stop: 05/30/22 17:59 Potassium Phosphate (Kphos) 15 mmol in 250 mls @ 62.5 mls/hr IV ONCE ONE Stop: 05/29/22 20:59 Insulin Human Lispro (Insulin Lispro 100 Unit/Ml 3 Ml Vial) 0 unit SUBCUT Q6H [facility]; Protocol Last Admin: 05/29/22 11:19 Dose: 4 unit Metoclopramide HCl (Metoclopramide Hcl 10 Mg/2 Ml Vial) 10 mg IVPUSH Q12H [facility] Last Admin: 05/29/22 09:30 Dose: 10 mg Modafinil (Modafinil 100 Mg Tablet) 200 mg PO DAILY [facility] Last Admin: 05/29/22 09:32 Dose: Not Given Ondansetron HCl (Ondansetron Hcl 4 Mg/2 Ml Vial) 4 mg IVPUSH Q8H PRN PRN Reason: Nausea Last Admin: 05/29/22 00:30 Dose: 4 mg Pantoprazole Sodium (Pantoprazole Sodium 40 Mg/10 Ml Vial) 40 mg IVPUSH DAILY@0630 [facility] Last Admin: 05/29/22 06:39 Dose: 40 mg Pharmacy Consult (Consult Rx Perform Med Rec) 1 each MISCELLANE ONCE PRN PRN Reason: Consult order Sertraline HCl (Sertraline Hcl 25 Mg Tablet) 25 mg PO DAILY [facility] Last Admin: 05/29/22 09:32 Dose: Not Given Zinc Oxide (Zinc Oxide 20% Ointment 28.35 Gm Tube) 1 appl TOPICAL DAILY [facility]; Protocol Last Admin: 05/29/22 09:36 Dose: 1 appl Home Medications Medication Instructions Recorded Confirmed Last Taken Type amiodarone 200 mg tablet 200 mg PO DAILY 05/07/21 05/26/22 05/25/22 History spironolactone 25 mg tablet 25 mg PO DAILY 05/07/21 05/26/22 05/25/22 History omeprazole 20 mg capsule,delayed 1 cap PO BID 07/03/21 05/26/22 05/25/22 History release valsartan 80 mg tablet 80 mg PO DAILY 02/24/22 05/26/22 05/25/22 History aspirin 81 mg tablet,delayed 81 mg PO DAILY 04/07/22 05/26/22 05/25/22 History release (Adult Low Dose Aspirin) furosemide 40 mg tablet 40 mg PO BID 04/07/22 05/26/22 05/25/22 History multivitamin 1 tab PO DAILY 04/07/22 05/26/22 05/25/22 History rivaroxaban 20 mg tablet (Xarelto) 20 mg PO DAILY 04/07/22 05/26/22 05/25/22 History zolpidem 10 mg tablet 10 mg PO BEDTIME PRN Sleep 04/07/22 05/26/22 05/25/22 History gemfibrozil 600 mg tablet 600 mg PO BID 05/26/22 05/26/22 05/25/22 History Exam Exam Date and Time: May 29, 2022 1454 Height,Weight and Vital Signs: Height 6 ft 3 in Weight 89.6 kg Last Vital Signs Temp 97.7 F 05/29/22 14:47 Pulse 97 05/29/22 14:47 Resp 18 05/29/22 14:47 BP 136/68 05/29/22 14:47 Pulse Ox 95 05/29/22 14:47 O2 Del Method 05/29/22 14:47 O2 Flow Rate 1 05/28/22 13:00 Pertinent Lab Results Pertinent Lab Results: Laboratory Tests 05/26/22 05/26/22 05/26/22 11:23 11:23 11:23 WBC 24.1 H RBC 2.98 L Hgb 8.9 L Hct 24.9 L MCV 83.6 MCH 29.9 MCHC 35.7 RDW 14.0 Plt Count 163 MPV 10.3 Immature Gran % (Auto) 0.7 H Neut % (Auto) 94.3 H Lymph % (Auto) 0.8 L [place] % (Auto) 2.8 Eos % (Auto) 1.3 Baso % (Auto) 0.1 Lymph # (Auto) 0.2 L [place] # (Auto) 0.7 Eos # (Auto) 0.3 Baso # (Auto) 0.0 Abs Immat Gran (auto) 0.18 H Absolute Neuts (auto) 22.7 H Absolute Nucleated RBC 0.000 Nucleated RBC % (auto) 0.0 Smear Tech's Comments VERIFIED PT 13.0 INR 1.1 O2 Saturation ABG pH at Pt Temp ABG pCO2 at Pt Temp ABG pO2 at Pt Temp ABG HCO3 ABG Base Excess (Actual) VBG pH VBG pCO2 VBG pO2 VBG HCO3 VBG O2 Saturation VBG Base Excess Sodium 125 L Potassium 5.0 Chloride 91 L Carbon Dioxide 10 L* D Anion Gap 29 H BUN 172 H Creatinine 4.16 H* Estim Creat Clear Calc 21.7 Estimated GFR 15 POC Glucose Random Glucose 73 D Fasting Glucose Lactic Acid Calcium 7.9 L Phosphorus Magnesium 2.3 Total Bilirubin 0.4 Direct Bilirubin 0.2 AST 24 D ALT 21 Alkaline Phosphatase 128 H Troponin I High Sens B-Natriuretic Peptide Total Protein 7.2 Albumin 4.1 D Triglycerides Lipase 30 Urine Color Urine Appearance Urine pH Ur Specific [place] Urine Protein Urine Glucose (UA) Urine Ketones Urine Blood Urine Nitrite Ur Leukocyte Esterase Urine RBC Urine WBC Ur Squamous Epith Cells Amorphous Sediment Urine Bacteria Ur Random Sodium Stool Occult Blood Salicylates Acetaminophen Ethyl Alcohol COVID-19 ([facility]OLINE) COVID-19 Clin Com Blood Type Antibody Screen Crossmatch ([facility]) 05/26/22 05/26/22 05/26/22 11:23 11:23 11:34 WBC RBC Hgb Hct MCV MCH MCHC RDW Plt Count MPV Immature Gran % (Auto) Neut % (Auto) Lymph % (Auto) [place] % (Auto) Eos % (Auto) Baso % (Auto) Lymph # (Auto) [place] # (Auto) Eos # (Auto) Baso # (Auto) Abs Immat Gran (auto) Absolute Neuts (auto) Absolute Nucleated RBC Nucleated RBC % (auto) Smear Tech's Comments PT INR O2 Saturation ABG pH at Pt Temp ABG pCO2 at Pt Temp ABG pO2 at Pt Temp ABG HCO3 ABG Base Excess (Actual) VBG pH VBG pCO2 VBG pO2 VBG HCO3 VBG O2 Saturation VBG Base Excess Sodium Potassium Chloride Carbon Dioxide Anion Gap BUN Creatinine Estim Creat Clear Calc Estimated GFR POC Glucose Random Glucose Fasting Glucose Lactic Acid 0.7 Calcium Phosphorus Magnesium Total Bilirubin Direct Bilirubin AST ALT Alkaline Phosphatase Troponin I High Sens 40.4 H B-Natriuretic Peptide 100 Total Protein Albumin Triglycerides Lipase Urine Color Urine Appearance Urine pH Ur Specific [place] Urine Protein Urine Glucose (UA) Urine Ketones Urine Blood Urine Nitrite Ur Leukocyte Esterase Urine RBC Urine WBC Ur Squamous Epith Cells Amorphous Sediment Urine Bacteria Ur Random Sodium Stool Occult Blood Salicylates Acetaminophen Ethyl Alcohol COVID-19 (CAROLINE) Negative COVID-19 Clin Com See Note Blood Type Antibody Screen Crossmatch ([facility]) 05/26/22 05/26/22 05/26/22 11:50 12:38 14:20 WBC RBC Hgb Hct MCV MCH MCHC RDW Plt Count MPV Immature Gran % (Auto) Neut % (Auto) Lymph % (Auto) [place] % (Auto) Eos % (Auto) Baso % (Auto) Lymph # (Auto) [place] # (Auto) Eos # (Auto) Baso # (Auto) Abs Immat Gran (auto) Absolute Neuts (auto) Absolute Nucleated RBC Nucleated RBC % (auto) Smear Tech's Comments PT INR O2 Saturation 98.0 ABG pH at Pt Temp 7.17 L* ABG pCO2 at Pt Temp 21 L ABG pO2 at Pt Temp 124 H ABG HCO3 8 L ABG Base Excess (Actual) -18.3 VBG pH VBG pCO2 VBG pO2 VBG HCO3 VBG O2 Saturation VBG Base Excess Sodium Potassium Chloride Carbon Dioxide Anion Gap BUN Creatinine Estim Creat Clear Calc Estimated GFR POC Glucose Random Glucose Fasting Glucose Lactic Acid Calcium Phosphorus Magnesium Total Bilirubin Direct Bilirubin AST ALT Alkaline Phosphatase Troponin I High Sens B-Natriuretic Peptide Total Protein Albumin Triglycerides Lipase Urine Color YELLOW Urine Appearance CLEAR Urine pH 5.5 Ur Specific [place] 1.020 Urine Protein 1+ H Urine Glucose (UA) NEG Urine Ketones NEG Urine Blood NEG Urine Nitrite NEG Ur Leukocyte Esterase NEG Urine RBC 0 Urine WBC 0-2 Ur Squamous Epith Cells TRACE Amorphous Sediment 3+ Urine Bacteria TRACE Ur Random Sodium Stool Occult Blood POSITIVE Salicylates Acetaminophen Ethyl Alcohol COVID-19 (CAROLINE) COVID-19 Clin Com Blood Type Antibody Screen Crossmatch ([facility]) 05/26/22 05/26/22 05/26/22 14:36 14:36 14:36 WBC RBC Hgb Hct MCV MCH MCHC RDW Plt Count MPV Immature Gran % (Auto) Neut % (Auto) Lymph % (Auto) [place] % (Auto) Eos % (Auto) Baso % (Auto) Lymph # (Auto) [place] # (Auto) Eos # (Auto) Baso # (Auto) Abs Immat Gran (auto) Absolute Neuts (auto) Absolute Nucleated RBC Nucleated RBC % (auto) Smear Tech's Comments PT INR O2 Saturation ABG pH at Pt Temp ABG pCO2 at Pt Temp ABG pO2 at Pt Temp ABG HCO3 ABG Base Excess (Actual) VBG pH VBG pCO2 VBG pO2 VBG HCO3 VBG O2 Saturation VBG Base Excess Sodium 126 L Potassium 4.8 Chloride 98 Carbon Dioxide 9 L* Anion Gap 24 H BUN 163 H Creatinine 3.74 H Estim Creat Clear Calc 24.1 Estimated GFR 16 POC Glucose Random Glucose 73 Fasting Glucose Lactic Acid Calcium 6.8 L D Phosphorus Magnesium Total Bilirubin Direct Bilirubin AST ALT Alkaline Phosphatase Troponin I High Sens 37.0 H B-Natriuretic Peptide Total Protein Albumin Triglycerides Lipase Urine Color Urine Appearance Urine pH Ur Specific [place] Urine Protein Urine Glucose (UA) Urine Ketones Urine Blood Urine Nitrite Ur Leukocyte Esterase Urine RBC Urine WBC Ur Squamous Epith Cells Amorphous Sediment Urine Bacteria Ur Random Sodium Stool Occult Blood Salicylates < 5.0 L Acetaminophen < 1 Ethyl Alcohol < 10 COVID-19 (CAROLINE) COVID-19 Clin Com Blood Type Antibody Screen Crossmatch ([facility]) 05/26/22 05/26/22 05/26/22 14:41 18:12 18:18 WBC 22.4 H RBC 2.62 L Hgb 7.9 L Hct 21.5 L MCV 82.1 MCH 30.2 MCHC 36.7 H RDW 14.1 Plt Count 128 L MPV 9.2 L Immature Gran % (Auto) Neut % (Auto) Lymph % (Auto) [place] % (Auto) Eos % (Auto) Baso % (Auto) Lymph # (Auto) [place] # (Auto) Eos # (Auto) Baso # (Auto) Abs Immat Gran (auto) Absolute Neuts (auto) Absolute Nucleated RBC 0.000 Nucleated RBC % (auto) 0.0 Smear Tech's Comments PT INR O2 Saturation ABG pH at Pt Temp ABG pCO2 at Pt Temp ABG pO2 at Pt Temp ABG HCO3 ABG Base Excess (Actual) VBG pH 7.20 L* VBG pCO2 28 VBG pO2 75 VBG HCO3 11 L VBG O2 Saturation 94.0 VBG Base Excess -14.9 Sodium Potassium Chloride Carbon Dioxide Anion Gap BUN Creatinine Estim Creat Clear Calc Estimated GFR POC Glucose Random Glucose Fasting Glucose Lactic Acid Calcium Phosphorus Magnesium Total Bilirubin Direct Bilirubin AST ALT Alkaline Phosphatase Troponin I High Sens B-Natriuretic Peptide Total Protein Albumin Triglycerides Lipase Urine Color Urine Appearance Urine pH Ur Specific [place] Urine Protein Urine Glucose (UA) Urine Ketones Urine Blood Urine Nitrite Ur Leukocyte Esterase Urine RBC Urine WBC Ur Squamous Epith Cells Amorphous Sediment Urine Bacteria Ur Random Sodium Stool Occult Blood Salicylates Acetaminophen Ethyl Alcohol Cancelled COVID-19 (CAROLINE) COVID-19 Clin Com Blood Type Antibody Screen Crossmatch ([facility]) 05/26/22 05/26/22 05/26/22 18:39 19:57 20:09 WBC RBC Hgb Hct MCV MCH MCHC RDW Plt Count MPV Immature Gran % (Auto) Neut % (Auto) Lymph % (Auto) [place] % (Auto) Eos % (Auto) Baso % (Auto) Lymph # (Auto) [place] # (Auto) Eos # (Auto) Baso # (Auto) Abs Immat Gran (auto) Absolute Neuts (auto) Absolute Nucleated RBC Nucleated RBC % (auto) Smear Tech's Comments PT INR O2 Saturation ABG pH at Pt Temp ABG pCO2 at Pt Temp ABG pO2 at Pt Temp ABG HCO3 ABG Base Excess (Actual) VBG pH VBG pCO2 VBG pO2 VBG HCO3 VBG O2 Saturation VBG Base Excess Sodium 131 L Potassium 4.4 Chloride 98 Carbon Dioxide 10 L* Anion Gap 27 H BUN 157 H Creatinine 3.50 H Estim Creat Clear Calc 25.8 Estimated GFR 18 POC Glucose Random Glucose 69 Fasting Glucose Lactic Acid Calcium 7.0 L Phosphorus Magnesium Total Bilirubin 0.4 Direct Bilirubin AST 24 ALT 19 Alkaline Phosphatase 114 Troponin I High Sens B-Natriuretic Peptide Total Protein 6.4 L Albumin 3.7 Triglycerides Lipase Urine Color Urine Appearance Urine pH Ur Specific [place] Urine Protein Urine Glucose (UA) Urine Ketones Urine Blood Urine Nitrite Ur Leukocyte Esterase Urine RBC Urine WBC Ur Squamous Epith Cells Amorphous Sediment Urine Bacteria Ur Random Sodium 41.0 Stool Occult Blood Salicylates Acetaminophen Ethyl Alcohol COVID-19 (CAROLINE) COVID-19 Clin Com Blood Type O Negative Antibody Screen NEGATIVE Crossmatch ([facility]) See Detail 05/26/22 05/26/22 05/27/22 23:53 23:53 00:33 WBC 29.1 H RBC 2.67 L Hgb 8.2 L Hct 22.1 L MCV 82.8 MCH 30.7 MCHC 37.1 H RDW 13.8 Plt Count 134 L MPV 9.6 Immature Gran % (Auto) 1.4 H Neut % (Auto) 94.3 H Lymph % (Auto) 0.3 L [place] % (Auto) 2.9 Eos % (Auto) 0.9 Baso % (Auto) 0.2 Lymph # (Auto) 0.1 L [place] # (Auto) 0.8 Eos # (Auto) 0.3 Baso # (Auto) 0.1 Abs Immat Gran (auto) 0.41 H Absolute Neuts (auto) 27.4 H Absolute Nucleated RBC 0.000 Nucleated RBC % (auto) 0.0 Smear Tech's Comments VERIFIED PT INR O2 Saturation ABG pH at Pt Temp ABG pCO2 at Pt Temp ABG pO2 at Pt Temp ABG HCO3 ABG Base Excess (Actual) VBG pH 7.25 L VBG pCO2 27 VBG pO2 54 VBG HCO3 12 L VBG O2 Saturation 82.0 VBG Base Excess -13.3 Sodium 134 L Potassium 3.5 D Chloride 99 Carbon Dioxide 11 L Anion Gap 28 H BUN 154 H Creatinine 3.21 H Estim Creat Clear Calc 28.1 Estimated GFR 20 POC Glucose Random Glucose Fasting Glucose 80 D Lactic Acid Calcium 7.4 L Phosphorus Magnesium Total Bilirubin Direct Bilirubin AST ALT Alkaline Phosphatase Troponin I High Sens B-Natriuretic Peptide Total Protein Albumin Triglycerides Lipase Urine Color Urine Appearance Urine pH Ur Specific [place] Urine Protein Urine Glucose (UA) Urine Ketones Urine Blood Urine Nitrite Ur Leukocyte Esterase Urine RBC Urine WBC Ur Squamous Epith Cells Amorphous Sediment Urine Bacteria Ur Random Sodium Stool Occult Blood Salicylates Acetaminophen Ethyl Alcohol COVID-19 (CAROLINE) COVID-19 Clin Com Blood Type Antibody Screen Crossmatch ([facility]) 05/27/22 05/27/22 05/27/22 05:05 05:05 05:05 WBC 29.3 H RBC 2.77 L Hgb 8.3 L Hct 22.7 L MCV 81.9 MCH 30.0 MCHC 36.6 H RDW 14.0 Plt Count 146 L MPV 9.9 Immature Gran % (Auto) 1.4 H Neut % (Auto) 95.1 H Lymph % (Auto) 0.4 L [place] % (Auto) 1.9 L Eos % (Auto) 1.1 Baso % (Auto) 0.1 Lymph # (Auto) 0.1 L [place] # (Auto) 0.6 Eos # (Auto) 0.3 Baso # (Auto) 0.0 Abs Immat Gran (auto) 0.41 H Absolute Neuts (auto) 27.9 H Absolute Nucleated RBC 0.000 Nucleated RBC % (auto) 0.0 Smear Tech's Comments PT INR O2 Saturation ABG pH at Pt Temp ABG pCO2 at Pt Temp ABG pO2 at Pt Temp ABG HCO3 ABG Base Excess (Actual) VBG pH VBG pCO2 VBG pO2 VBG HCO3 VBG O2 Saturation VBG Base Excess Sodium 137 Potassium 3.6 Chloride 99 Carbon Dioxide 15 L Anion Gap 27 H BUN 140 H Creatinine 2.83 H Estim Creat Clear Calc 31.9 Estimated GFR 23 POC Glucose Random Glucose 109 D Fasting Glucose Lactic Acid Calcium 7.5 L Phosphorus 7.5 H Magnesium Total Bilirubin 0.3 Direct Bilirubin AST 24 ALT 15 Alkaline Phosphatase 107 Troponin I High Sens B-Natriuretic Peptide Total Protein 6.0 L Albumin 3.4 L Triglycerides Lipase Urine Color Urine Appearance Urine pH Ur Specific [place] Urine Protein Urine Glucose (UA) Urine Ketones Urine Blood Urine Nitrite Ur Leukocyte Esterase Urine RBC Urine WBC Ur Squamous Epith Cells Amorphous Sediment Urine Bacteria Ur Random Sodium Stool Occult Blood Salicylates Acetaminophen Ethyl Alcohol COVID-19 (CAROLINE) COVID-19 Clin Com Blood Type Antibody Screen Crossmatch ([facility]) 05/27/22 05/27/22 05/27/22 05:12 14:40 16:26 WBC RBC Hgb Hct MCV MCH MCHC RDW Plt Count MPV Immature Gran % (Auto) Neut % (Auto) Lymph % (Auto) [place] % (Auto) Eos % (Auto) Baso % (Auto) Lymph # (Auto) [place] # (Auto) Eos # (Auto) Baso # (Auto) Abs Immat Gran (auto) Absolute Neuts (auto) Absolute Nucleated RBC Nucleated RBC % (auto) Smear Tech's Comments PT INR O2 Saturation ABG pH at Pt Temp ABG pCO2 at Pt Temp ABG pO2 at Pt Temp ABG HCO3 ABG Base Excess (Actual) VBG pH 7.33 VBG pCO2 29 VBG pO2 40 VBG HCO3 15 L VBG O2 Saturation 67.0 VBG Base Excess -8.7 Sodium Potassium Chloride Carbon Dioxide Anion Gap BUN Creatinine Estim Creat Clear Calc Estimated GFR POC Glucose 176 H 191 H Random Glucose Fasting Glucose Lactic Acid Calcium Phosphorus Magnesium Total Bilirubin Direct Bilirubin AST ALT Alkaline Phosphatase Troponin I High Sens B-Natriuretic Peptide Total Protein Albumin Triglycerides Lipase Urine Color Urine Appearance Urine pH Ur Specific [place] Urine Protein Urine Glucose (UA) Urine Ketones Urine Blood Urine Nitrite Ur Leukocyte Esterase Urine RBC Urine WBC Ur Squamous Epith Cells Amorphous Sediment Urine Bacteria Ur Random Sodium Stool Occult Blood Salicylates Acetaminophen Ethyl Alcohol COVID-19 (CAROLINE) COVID-19 Clin Com Blood Type Antibody Screen Crossmatch ([facility]) 05/28/22 05/28/22 05/28/22 02:09 05:05 05:05 WBC 19.9 H RBC 2.78 L Hgb 8.3 L Hct 23.2 L MCV 83.5 MCH 29.9 MCHC 35.8 RDW 14.3 Plt Count 138 L MPV 10.0 Immature Gran % (Auto) Neut % (Auto) Lymph % (Auto) [place] % (Auto) Eos % (Auto) Baso % (Auto) Lymph # (Auto) [place] # (Auto) Eos # (Auto) Baso # (Auto) Abs Immat Gran (auto) Absolute Neuts (auto) Absolute Nucleated RBC 0.000 Nucleated RBC % (auto) 0.0 Smear Tech's Comments PT INR O2 Saturation ABG pH at Pt Temp ABG pCO2 at Pt Temp ABG pO2 at Pt Temp ABG HCO3 ABG Base Excess (Actual) VBG pH VBG pCO2 VBG pO2 VBG HCO3 VBG O2 Saturation VBG Base Excess Sodium 143 Potassium 2.7 L D Chloride 106 Carbon Dioxide 24 Anion Gap 16 BUN 94 H D Creatinine 1.34 Estim Creat Clear Calc 67.4 Estimated GFR 54 POC Glucose 230 H Random Glucose 227 H D Fasting Glucose Lactic Acid Calcium 7.5 L Phosphorus 3.4 Magnesium 1.7 Total Bilirubin Direct Bilirubin AST ALT Alkaline Phosphatase Troponin I High Sens B-Natriuretic Peptide Total Protein Albumin 3.1 L Triglycerides 172 Lipase Urine Color Urine Appearance Urine pH Ur Specific [place] Urine Protein Urine Glucose (UA) Urine Ketones Urine Blood Urine Nitrite Ur Leukocyte Esterase Urine RBC Urine WBC Ur Squamous Epith Cells Amorphous Sediment Urine Bacteria Ur Random Sodium Stool Occult Blood Salicylates Acetaminophen Ethyl Alcohol COVID-19 (CAROLINE) COVID-19 Clin Com Blood Type Antibody Screen Crossmatch ([facility]) 05/28/22 05/28/22 05/28/22 05:10 06:24 13:08 WBC RBC Hgb Hct MCV MCH MCHC RDW Plt Count MPV Immature Gran % (Auto) Neut % (Auto) Lymph % (Auto) [place] % (Auto) Eos % (Auto) Baso % (Auto) Lymph # (Auto) [place] # (Auto) Eos # (Auto) Baso # (Auto) Abs Immat Gran (auto) Absolute Neuts (auto) Absolute Nucleated RBC Nucleated RBC % (auto) Smear Tech's Comments PT INR O2 Saturation ABG pH at Pt Temp ABG pCO2 at Pt Temp ABG pO2 at Pt Temp ABG HCO3 ABG Base Excess (Actual) VBG pH 7.40 VBG pCO2 46 VBG pO2 49 VBG HCO3 29 H VBG O2 Saturation 78.0 VBG Base Excess 4.1 Sodium Potassium Chloride Carbon Dioxide Anion Gap BUN Creatinine Estim Creat Clear Calc Estimated GFR POC Glucose 207 H 242 H Random Glucose Fasting Glucose Lactic Acid Calcium Phosphorus Magnesium Total Bilirubin Direct Bilirubin AST ALT Alkaline Phosphatase Troponin I High Sens B-Natriuretic Peptide Total Protein Albumin Triglycerides Lipase Urine Color Urine Appearance Urine pH Ur Specific [place] Urine Protein Urine Glucose (UA) Urine Ketones Urine Blood Urine Nitrite Ur Leukocyte Esterase Urine RBC Urine WBC Ur Squamous Epith Cells Amorphous Sediment Urine Bacteria Ur Random Sodium Stool Occult Blood Salicylates Acetaminophen Ethyl Alcohol COVID-19 (CAROLINE) COVID-19 [facility] Com Blood Type Antibody Screen Crossmatch ([facility]) 05/28/22 05/29/22 05/29/22 18:22 01:03 05:48 WBC RBC Hgb Hct MCV MCH MCHC RDW Plt Count MPV Immature Gran % (Auto) Neut % (Auto) Lymph % (Auto) [place] % (Auto) Eos % (Auto) Baso % (Auto) Lymph # (Auto) [place] # (Auto) Eos # (Auto) Baso # (Auto) Abs Immat Gran (auto) Absolute Neuts (auto) Absolute Nucleated RBC Nucleated RBC % (auto) Smear Tech's Comments PT INR O2 Saturation ABG pH at Pt Temp ABG pCO2 at Pt Temp ABG pO2 at Pt Temp ABG HCO3 ABG Base Excess (Actual) VBG pH VBG pCO2 VBG pO2 VBG HCO3 VBG O2 Saturation VBG Base Excess Sodium Potassium Chloride Carbon Dioxide Anion Gap BUN Creatinine Estim Creat Clear Calc Estimated GFR POC Glucose 194 H 182 H 288 H Random Glucose Fasting Glucose Lactic Acid Calcium Phosphorus Magnesium Total Bilirubin Direct Bilirubin AST ALT Alkaline Phosphatase Troponin I High Sens B-Natriuretic Peptide Total Protein Albumin Triglycerides Lipase Urine Color Urine Appearance Urine pH Ur Specific [place] Urine Protein Urine Glucose (UA) Urine Ketones Urine Blood Urine Nitrite Ur Leukocyte Esterase Urine RBC Urine WBC Ur Squamous Epith Cells Amorphous Sediment Urine Bacteria Ur Random Sodium Stool Occult Blood Salicylates Acetaminophen Ethyl Alcohol COVID-19 ([facility]INE) COVID-19 Clin Com Blood Type Antibody Screen Crossmatch ([facility]) 05/29/22 05/29/22 05/29/22 06:54 06:54 06:54 WBC 12.0 H RBC 2.85 L Hgb 8.6 L Hct 24.4 L MCV 85.6 MCH 30.2 MCHC 35.2 RDW 14.1 Plt Count 114 L MPV 10.1 Immature Gran % (Auto) Neut % (Auto) Lymph % (Auto) [place] % (Auto) Eos % (Auto) Baso % (Auto) Lymph # (Auto) [place] # (Auto) Eos # (Auto) Baso # (Auto) Abs Immat Gran (auto) Absolute Neuts (auto) Absolute Nucleated RBC 0.000 Nucleated RBC % (auto) 0.0 Smear Tech's Comments PT INR O2 Saturation ABG pH at Pt Temp ABG pCO2 at Pt Temp ABG pO2 at Pt Temp ABG HCO3 ABG Base Excess (Actual) VBG pH VBG pCO2 VBG pO2 VBG HCO3 VBG O2 Saturation VBG Base Excess Sodium 141 Potassium 3.3 D Chloride 106 Carbon Dioxide 26 Anion Gap 12 BUN 53 H Creatinine 0.84 Estim Creat Clear Calc 107.5 Estimated GFR > 60 POC Glucose Random Glucose 318 H D Fasting Glucose Lactic Acid Calcium 8.1 L D Phosphorus 1.6 L Magnesium 1.7 Total Bilirubin Direct Bilirubin AST ALT Alkaline Phosphatase Troponin I High Sens B-Natriuretic Peptide 1537 H Total Protein Albumin 3.2 L Triglycerides Lipase Urine Color Urine Appearance Urine pH Ur Specific [place] Urine Protein Urine Glucose (UA) Urine Ketones Urine Blood Urine Nitrite Ur Leukocyte Esterase Urine RBC Urine WBC Ur Squamous Epith Cells Amorphous Sediment Urine Bacteria Ur Random Sodium Stool Occult Blood Salicylates Acetaminophen Ethyl Alcohol COVID-19 (CAROLINE) COVID-19 Clin Com Blood Type Antibody Screen Crossmatch (AHG) 05/29/22 05/29/22 11:12 14:48 WBC RBC Hgb Hct MCV MCH MCHC RDW Plt Count MPV Immature Gran % (Auto) Neut % (Auto) Lymph % (Auto) [place] % (Auto) Eos % (Auto) Baso % (Auto) Lymph # (Auto) [place] # (Auto) Eos # (Auto) Baso # (Auto) Abs Immat Gran (auto) Absolute Neuts (auto) Absolute Nucleated RBC Nucleated RBC % (auto) Smear Tech's Comments PT INR O2 Saturation ABG pH at Pt Temp ABG pCO2 at Pt Temp ABG pO2 at Pt Temp ABG HCO3 ABG Base Excess (Actual) VBG pH VBG pCO2 VBG pO2 VBG HCO3 VBG O2 Saturation VBG Base Excess Sodium Potassium Chloride Carbon Dioxide Anion Gap BUN Creatinine Estim Creat Clear Calc Estimated GFR POC Glucose 227 H 164 H Random Glucose Fasting Glucose Lactic Acid Calcium Phosphorus Magnesium Total Bilirubin Direct Bilirubin AST ALT Alkaline Phosphatase Troponin I High Sens B-Natriuretic Peptide Total Protein Albumin Triglycerides Lipase Urine Color Urine Appearance Urine pH Ur Specific [place] Urine Protein Urine Glucose (UA) Urine Ketones Urine Blood Urine Nitrite Ur Leukocyte Esterase Urine RBC Urine WBC Ur Squamous Epith Cells Amorphous Sediment Urine Bacteria Ur Random Sodium Stool Occult Blood Salicylates Acetaminophen Ethyl Alcohol COVID-19 (CAROLINE) COVID-19 Clin Com Blood Type Antibody Screen Crossmatch (AHG) Procedure Date:? 04/03/2021 Procedure Type:? Transthoracic Echocardiogram Symptoms:? CHF Study Quality: ? Technically Difficult/contrast ECG Rhythm:? ? ? Sinus ?? ? Conclusions: -? 1. Moderately dilated left ventricle with severe LV systolic? dysfunction with LVEF of 20-25% with grade 2 diastolic ? dysfunction with underlying regional wall motion only which are? not well defined on this study ? 2. Moderately dilated left atrium? 3. Vgie-dy-amkzmfaq mitral regurgitation ? 4. Moderately elevated right ventricular systolic pressure with? significant elevated right atrial pressures? 5. No gross pericardial effusion ? ?? Date of Service: 05/20/21 Procedure(s): CA lexiscan stress w fermin ? Protocol: LEXISCAN? Max HR: 078 BPM? 49% of? Pred: 158 BPM Max BP: 124/058 mmHG Max Work Load: 1.0 METS ? Pharmacological stress test with Lexiscan injection, while sitting and ?exercising right arm, without anginal symptoms, without arrythmia, with ?normotensive response to? injection, with nondiagnostic EKG for ischemia. ?Nuclear images pending. Test reviewed with Dr Pleitez. 03/11/22: Cardiac cath: Multivessel disease. Dyskinetic apex. Akinetic inferior wall ?possible referral for CABG if viability in LAD territory Airway Mallampati Class: III TM Dist: >3cm Neck ROM: Full Loose/Missing/Broken Teeth: Yes (many broken, missing) Heart: RRR Lungs: Diminished ?crackles Assessment and Plan Assessment Anesthesia Assessment: Anesthesia Plan Discussed and Chart Reviewed Final Anesthetic Review Family History of Problems with Anesthesia: No History of Problems with Anesthesia: No NPO: Yes ASA Class: IV Final Preanesthetic Review: No Changes in Pt Med Stat, Meds/Allgs Chart Reviewed, Consent Obtained/Reviewed and Anes Risks/Benef Reviewed Patient Risk: High Procedure Risk: Intermediate Assessment/Block/Sedation in SS: Assess/Block/Sedation-SS Anesthetic Plan Anesthetic Plan: MAC: Disposition: Standard PACU and Inp. Admit - IMC
--- NOTE | 2022-05-29 16:26 | P.BOP_ITS ---
Brief Operative Note Date of Service: 05/29/22 Pre-op diagnosis: gi bleed, heme pos stool Post-op diagnosis: same (gastric and colon polyps) Procedure: egd, colon Surgeon: Sushil Wilder Anesthesia: MAC Was an Pain Medicine Physician used for this Procedure?: No Estimated blood loss (mL): 5 Pathology: other (see req) Condition: stable Disposition: PACU
--- NOTE | 2022-05-29 16:27 | PM.EVENT ---
Event Note Date of Service: 05/29/22 Event Note: EGD colonoscopy note dictated EGD shows an inflamed gastric polyp, snared colon shows a patent ileocolonoc anstamosis, [id number] sessile polyp at 65 cm, peicemeal resected, tattooed and clipped 3 8-10 mm polyps, at 45cm, and 40 cm x2, snared diverticulosis. Rec: advance diet f/u bx results, hold anticoagulation and antiplatelets x 1week given multiple polypectomies.
--- NOTE | 2022-05-29 16:31 | P.CNPS_ITS ---
History of Present Illness Date of Service: 05/29/2022 Chief Complaint: hypotension Reason for Consult: Medication Requesting physician: Asad Rodríguez Sources of Information: patient interviewed, chart reviewed and crisis/core team assessment reviewed HPI Narrative: Denzel is a 62 y.o. male with PMHx of diabetes, hypertension, hyperlipidemia, peripheral vascular disease complicated by transmet amputation in 2007 and left below the knee amputation in 2015, CAD status post cath February, ischemic cardiomyopathy, systolic CHF, PAfib on Xarelto, GERD, and insomnia.? 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 Pt self presented to [facility] on 05/26/22 due to feeling weak and tired. Found to have a large stage II pressure ulcer on his sacrum. On 05/26/22 his BP dropped into the 70s, in hypovolemic shock. After 3 L of fluid failed to improve his BP, a CVL was placed and he was started on pressors. He was admitted to the ICU bec ause of refractory hypotension secondary to severe hypovolemia with underlying PAD with ischemic cardiomyopathy. In the ICU fluid resuscitation was continued. His Xarelto was held, pending identification of a bleeding source. Pt has been given two units of RBCs for hemoglobin of 8.3, acute thrombocytopenia due to critical illness. He was started on TPN for nutrition; still unable to keep anything down. Started on Provigil 200 mg for wakefulness.??? Psych Consult for medication due to pt presenting with concerning sx of depression. Per ICU note, ?for the last number of years, the patient had been living with and caring for his parents. His father about 5 years ago, his mother 2 weeks ago.? Since her passing, the patient has been grieving her loss and been significantly depressed, not wanting to eat or drink and lying in bed all the time.? Dr. Rodríguez started Zoloft 25 mg and Provigil 200 mg. I evaluated the pt this evening and upon interview he reports ?Im fine.? Pt denies having a previous psychiatric hx. He currently denies feeling depressed, ?Im alright now.? Pt reports his sleep is poor, ?I dont sleep,? attributes this to being in pain all the time in his bilateral extremities. His energy and appetite are low. Pt denies SI or urges to self harm. Says anxiety ?comes and goes like anyone else.? Pt lives alone, however his brother lives next door. I spoke with pt?s brother, who denies that pt is depressed. He says pt did not get out of bed for a week prior to hospitalization due to his pressure ulcer rather than depression, ?he wasn?t depressed.?? Past Psychiatric History: Denies [facility] Medical History Abdominal wall abscess Acute appendicitis CVA (cerebral vascular accident) Diabetes Diabetes mellitus Heart disease Heart failure with reduced ejection fraction Heart failure with reduced ejection fraction History of left below knee amputation HTN (hypertension) Ischemic cardiomyopathy Paroxysmal atrial fibrillation Surgical History H/O exploratory laparotomy H/O right hemicolectomy History of transmetatarsal amputation of right foot Hx of cholecystectomy Diagnostics Vital Signs (24Hr): Vital Signs - 24 hr 05/28/22 19:51 05/28/22 23:15 05/28/22 23:36 Temperature 97.8 F 98.4 F 98.7 F Pulse Rate 79 83 83 Respiratory Rate 16 14 18 Blood Pressure 125/60 151/71 H 135/63 Pulse Oximetry 93 96 98 Oxygen Delivery Method Room Air Room Air Room Air 05/29/22 00:30 05/29/22 03:58 05/29/22 07:51 Temperature 98.4 F 98.2 F Pulse Rate 85 96 Respiratory Rate 20 20 18 Blood Pressure 149/70 H 141/67 H Pulse Oximetry 97 95 Oxygen Delivery Method Room Air Room Air 05/29/22 12:00 05/29/22 14:47 Temperature 97.7 F 97.7 F Pulse Rate 80 97 Respiratory Rate 19 18 Blood Pressure 144/65 H 136/68 Pulse Oximetry 96 95 Oxygen Delivery Method Room Air Room Air BMI result Body Mass Index 24.7 Labs Results: 05/29/22 06:54 05/29/22 06:54 Labs: Laboratory Results - last 48 hr 05/26/22 05/28/22 05/28/22 20:09 02:09 05:05 WBC 19.9 H RBC 2.78 L Hgb 8.3 L Hct 23.2 L MCV 83.5 MCH 29.9 MCHC 35.8 RDW 14.3 Plt Count 138 L MPV 10.0 Absolute Nucleated RBC 0.000 Nucleated RBC % (auto) 0.0 VBG pH VBG pCO2 VBG pO2 VBG HCO3 VBG O2 Saturation VBG Base Excess Sodium Potassium Chloride Carbon Dioxide Anion Gap BUN Creatinine Estim Creat Clear Calc Estimated GFR POC Glucose 230 H Random Glucose Calcium Phosphorus Magnesium B-Natriuretic Peptide Albumin Triglycerides Blood Type O Negative Antibody Screen NEGATIVE Crossmatch ([facility]) See Detail 05/28/22 05/28/22 05/28/22 05:05 05:10 06:24 WBC RBC Hgb Hct MCV MCH MCHC RDW Plt Count MPV Absolute Nucleated RBC Nucleated RBC % (auto) VBG pH 7.40 VBG pCO2 46 VBG pO2 49 VBG HCO3 29 H VBG O2 Saturation 78.0 VBG Base Excess 4.1 Sodium 143 Potassium 2.7 L D Chloride 106 Carbon Dioxide 24 Anion Gap 16 BUN 94 H D Creatinine 1.34 Estim Creat Clear Calc 67.4 Estimated GFR 54 POC Glucose 207 H Random Glucose 227 H D Calcium 7.5 L Phosphorus 3.4 Magnesium 1.7 B-Natriuretic Peptide Albumin 3.1 L Triglycerides 172 Blood Type Antibody Screen Crossmatch ([facility]) 05/28/22 05/28/22 05/29/22 13:08 18:22 01:03 WBC RBC Hgb Hct MCV MCH MCHC RDW Plt Count MPV Absolute Nucleated RBC Nucleated RBC % (auto) VBG pH VBG pCO2 VBG pO2 VBG HCO3 VBG O2 Saturation VBG Base Excess Sodium Potassium Chloride Carbon Dioxide Anion Gap BUN Creatinine Estim Creat Clear Calc Estimated GFR POC Glucose 242 H 194 H 182 H Random Glucose Calcium Phosphorus Magnesium B-Natriuretic Peptide Albumin Triglycerides Blood Type Antibody Screen Crossmatch ([facility]) 05/29/22 05/29/22 05/29/22 05:48 06:54 06:54 WBC 12.0 H RBC 2.85 L Hgb 8.6 L Hct 24.4 L MCV 85.6 MCH 30.2 MCHC 35.2 RDW 14.1 Plt Count 114 L MPV 10.1 Absolute Nucleated RBC 0.000 Nucleated RBC % (auto) 0.0 VBG pH VBG pCO2 VBG pO2 VBG HCO3 VBG O2 Saturation VBG Base Excess Sodium 141 Potassium 3.3 D Chloride 106 Carbon Dioxide 26 Anion Gap 12 BUN 53 H Creatinine 0.84 Estim Creat Clear Calc 107.5 Estimated GFR > 60 POC Glucose 288 H Random Glucose 318 H D Calcium 8.1 L D Phosphorus 1.6 L Magnesium 1.7 B-Natriuretic Peptide Albumin 3.2 L Triglycerides Blood Type Antibody Screen Crossmatch (AHG) 05/29/22 05/29/22 05/29/22 06:54 11:12 14:48 WBC RBC Hgb Hct MCV MCH MCHC RDW Plt Count MPV Absolute Nucleated RBC Nucleated RBC % (auto) VBG pH VBG pCO2 VBG pO2 VBG HCO3 VBG O2 Saturation VBG Base Excess Sodium Potassium Chloride Carbon Dioxide Anion Gap BUN Creatinine Estim Creat Clear Calc Estimated GFR POC Glucose 227 H 164 H Random Glucose Calcium Phosphorus Magnesium B-Natriuretic Peptide 1537 H Albumin Triglycerides Blood Type Antibody Screen Crossmatch ([facility]) Imaging Radiology Impressions: ITS Impressions Abdomen/Pelvis CT 05/26/22 12:48 IMPRESSION: Diverticulosis of the colon. Mild bowel wall thickening of the distal left colon and sigmoid colon questionable for colitis or diverticulitis. The more proximal colon and distal small bowel are slightly distended and fluid-filled. Question mild wall thickening of the proximal stomach. Fleischner guidelines were followed. Chest X-Ray 05/26/22 13:07 IMPRESSION: Unremarkable examination. Chest X-Ray 05/26/22 17:03 IMPRESSION: Right IJ central venous catheter tip projects 2 cm below the level of the cavoatrial junction. Airways disease. Right lung nodule not visible on plain radiography. Follow with CT. Mental Status Exam Mental Status Exam Narrative: A&O. In hospital attire, laying down in bed, ill appearing. Intermittent eye contact, attentive. No Tics or Tremors. No abnormal involuntary movements. Calm, guarded, difficult to engage in conversation. Non-pressured speech, quiet, not talkative. No prolonged speech latency or dysarthria. Mood is ?alright,? affect is blunted, appears to be minimizing sx. Denies SI/SIB/HI upon inquiry. Denies A/VH or delusional thought content. Thoughts are coherent, organized. No known cognitive or memory impairment. Insight/ Judgment fair and adequate. Medications Medications Current Medications Bisacodyl (Bisacodyl 5 Mg Tablet.) 10 mg PO ONCE@1100 [facility] Last Admin: 05/29/22 12:15 Dose: Not Given Bisacodyl (Bisacodyl 5 Mg Tablet.) 10 mg PO ONCE [facility] Hydromorphone HCl (Hydromorphone Hcl 0.5 Mg/0.5 Ml Syringe) 0.5 mg IVPUSH Q2H PRN; Protocol PRN Reason: Pain, Severe (Pain Scale 7-10) Last Admin: 05/29/22 00:30 Dose: 0.5 mg Piperacillin Sod/Tazobactam (Sod 3.375 gm/ Sodium Chloride) 50 mls @ 100 mls/hr IV Q6H [facility] Stop: 06/02/22 10:59 Last Infusion: 05/29/22 12:18 Dose: Infused Potassium Chloride 60 meq/Magnesium Sulfate 16 meq/Potassium Phosphate 30 mmol/Calcium Gluconate 9.3 meq/Multivitamins 10 ml/ Trace Metals 1 ml/ Amino Acids/Dextrose 1,800 mls @ 75 mls/hr IV DAILY@1800 [facility] Stop: 05/29/22 17:59 Last Admin: 05/28/22 18:18 Dose: 75 mls/hr Potassium Chloride 80 meq/Magnesium Sulfate 16 meq/Potassium Phosphate 40 mmol/Calcium Gluconate 9.3 meq/Multivitamins 10 ml/ Trace Metals 1 ml/ Amino Acids/Dextrose 2,040 mls @ 85 mls/hr IV DAILY@1800 [facility] Stop: 05/30/22 17:59 Potassium Phosphate (Kphos) 15 mmol in 250 mls @ 62.5 mls/hr IV ONCE ONE Stop: 05/29/22 20:59 Lactated Ringer's (Lr) 1,000 mls @ 100 mls/hr IVCONT .Q10H [facility] Insulin Human Lispro (Insulin Lispro 100 Unit/Ml 3 Ml Vial) 0 unit SUBCUT Q6H [facility]; Protocol Last Admin: 05/29/22 11:19 Dose: 4 unit Metoclopramide HCl (Metoclopramide Hcl 10 Mg/2 Ml Vial) 10 mg IVPUSH Q12H [facility] Last Admin: 05/29/22 09:30 Dose: 10 mg Modafinil (Modafinil 100 Mg Tablet) 200 mg PO DAILY [facility] Last Admin: 05/29/22 09:32 Dose: Not Given Ondansetron HCl (Ondansetron Hcl 4 Mg/2 Ml Vial) 4 mg IVPUSH Q8H PRN PRN Reason: Nausea Last Admin: 05/29/22 00:30 Dose: 4 mg Pantoprazole Sodium (Pantoprazole Sodium 40 Mg/10 Ml Vial) 40 mg IVPUSH SHANAE Cardona@0630 [facility] Last Admin: 05/29/22 06:39 Dose: 40 mg Pharmacy Consult (Consult Rx Perform Med Rec) 1 each MISCELLANE ONCE PRN PRN Reason: Consult order Sertraline HCl (Sertraline Hcl 25 Mg Tablet) 25 mg PO DAILY [facility] Last Admin: 05/29/22 09:32 Dose: Not Given Zinc Oxide (Zinc Oxide 20% Ointment 28.35 Gm Tube) 1 appl TOPICAL DAILY [facility]; Protocol Last Admin: 05/29/22 09:36 Dose: 1 appl Allergies Allergies Allergy/AdvReac Type Severity Reaction Status Date / Time vancomycin [VANCOMYCIN] Allergy Severe STOMACH Verified 04/07/22 14:32 UPSET, ill Assessment & Plan Assessment & Plan (1) MDD (major depressive disorder), single episode, mild: Status: Acute Code(s): F32.0 - Major depressive disorder, single episode, mild Plan Plan: Pt reports he is willing to trial low dose sertraline for sx of depression and anxiety because ?whatever the doctor says.? Will continue sertraline at 25 mg; I considered increasing the dose to a therapeutic level at 50 mg, however pt has a plt count of 114, Hgb 8.6/ Hct 24.4 and SSRIs increase the risk of bleeding.? I have shared this with Ashleigh Plaomino Thank you for this consultation. If you have any questions or concerns, please do not hesitate to contact psychiatry service. I spent minutes with the patient and/or on the patient floor today, greater than?50% of which was spent counseling/coordinating care. Patient educated on: medication risk/benefits
[2022-05-29] MEDS: Lactated Ringers 1,000 ML 100 ML IVCONT (17:32)
[2022-05-29 19:50] LABS: Glucose, Whole Blood 168 mg/dL (60-115)
[2022-05-30] VITALS (7 sets, daily range): BP systolic 128–161; BP diastolic 61–77; PULSE 73–100; RESP 16–20; TEMP 36.4–37.1; O2SAT 94–97
--- NOTE | 2022-05-30 | ECG_ITS ---
Test Reason : eval qtc Blood Pressure : / mmHG Vent. Rate : 081 BPM Atrial Rate : 081 BPM P-R Int : 176 ms QRS Dur : 118 ms QT Int : 388 ms P-R-T Axes : 031 211 035 degrees QTc Int : 450 ms Normal sinus rhythm Low voltage QRS Inferior infarct (cited on or before 19-MAR-2019) Anterolateral infarct (cited on or before 19-MAR-2019) Abnormal ECG When compared with ECG of 26-MAY-2022 12:09, QRS duration has decreased Questionable change in initial forces of Lateral leads Nonspecific T wave abnormality now evident in Inferior leads Nonspecific T wave abnormality now evident in Lateral leads Referred By: Ashleigh Palomino Electronically Signed By:CYDNEY HERNANDEZ MD
[2022-05-30 00:49] LABS: Glucose, Whole Blood 213 mg/dL (60-115)
[2022-05-30] MEDS: HYDROmorphone HCl 0.5 MG/0.5 ML SYRINGE IVPUSH ×3 (03:26→21:32)
--- NOTE | 2022-05-30 03:45 | OP_ITS ---
SURGEON: Sushil Wilder MD INDICATIONS: GI bleeding and hemoccult-positive stools. PREOPERATIVE DIAGNOSIS: POSTOPERATIVE DIAGNOSIS: PROCEDURE PERFORMED: 1. Upper endoscopy with biopsy and snare polypectomy. 2. Colonoscopy to the neoterminal ileum with snare polypectomy. ESTIMATED BLOOD LOSS: COMPLICATIONS: ANESTHESIA: ASSISTANTS: SPECIMENS: MEDICATIONS: Monitored anesthesia care. DESCRIPTION OF PROCEDURE: History and physical was performed. The risks and benefits of the procedure were explained to the patient. Informed consent was obtained. The patient was placed in the left lateral decubitus position. The Olympus video gastroscope was introduced into the esophagus, stomach, and duodenum. Examination was performed. The scope was removed. He was repositioned for colonoscopy. A digital rectal exam was performed and was found to be normal. The Olympus pediatric video colonoscope was introduced into the rectum and advanced to the ileocolonic anastomosis without difficulty. Examination was performed. The scope was removed. He tolerated both procedures well and was transferred to recovery area in stable condition. FINDINGS: Upper endoscopy: Esophagus: The esophagus was normal. Stomach: The stomach showed an 8 mm gastric polyp that appeared slightly inflamed and stomach at the junction of the body and antrum on the greater curvature. This was removed with a snare and recovered via suction. The antral biopsies were then obtained to evaluate for H pylori. Duodenum: The bulb and second portion were normal. Colonoscopy: There was an ileocolonic anastomosis in the right colon. It was widely patent and some staple material was visible. The neoterminal ileum was examined and appeared normal. Just above the ileocolonic anastomosis at 65 cm, there was a large sessile polyp measuring approximately 15 x 20 mm. This was piecemeal resected and the area was marked with 3 mL of Claudine ink. Next, 2 hemostatic clips were applied to close the mucosal defect where the polyp had been resected. Multiple pieces were recovered via suction. Several other polyps were identified and removed with a snare. These were located at 45 cm and two at 40 cm, all measured approximately 8-10 mm. There was diverticulosis involving the sigmoid. There was a large amount of liquid stool as the patient had not taken the prep completely. This was washed and suctioned as best possible. This made the procedure extended and difficult. Retroflexed examination showed some small internal hemorrhoids. IMPRESSION: 1. Gastric polyp. 2. Colon polyps. RECOMMENDATIONS: 1. Advance diet. 2. Follow up the biopsy results. 3. Anticoagulation should be held for 1 week because of large sessile polyp in the colon that was removed as above. MD LEIGHA Willis/TOSHIA / [id number]
[2022-05-30] MEDS: Pantoprazole Sodium 40 MG/10 ML VIAL IVPUSH (05:51)
[2022-05-30] MEDS: Metoclopramide HCl 10 MG/2 ML VIAL IVPUSH ×2 (05:51→18:41)
[2022-05-30] MEDS: Piperacillin Sodium/Tazobactam 3.375 GM in 0.9 % Sodium Chloride 50 ML IV ×3 (05:51→16:43)
[2022-05-30 06:47] LABS: Glucose, Whole Blood 140 mg/dL (60-115)
[2022-05-30 07:43] LABS: Glucose, Whole Blood 117 mg/dL (60-115)
[2022-05-30 08:33] LABS: Hemoglobin 8.9 g/dl (14.0-18.0); Mean Corpuscular HGB Conc 34.2 g/dl (31.0-36.0); Mean Corpuscular Volume 87.5 fL (80.0-98.0); Mean Platelet Volume 9.9 fL (9.4-12.4); Platelet Count 134 X10*3/uL (160-400); Red Blood Count 2.97 X10*6/uL (4.60-5.80); Red Cell Distribution Width 13.8 % (11.0-16.0); White Blood Count 10.7 X10*3/uL (4.8-10.8)
[2022-05-30] MEDS: Sertraline HCL 25 MG TABLET PO (08:52)
[2022-05-30] MEDS: modafiniL 100 MG TABLET 200 MG PO (08:52)
[2022-05-30] MEDS: Zinc Oxide 20% Ointment 28.35 GM TUBE 1 APPL TOPICAL (08:53)
[2022-05-30 08:57] LABS: Anion Gap 12 (12-20); Blood Urea Nitrogen 26 mg/dL (9-16); Calcium 8.4 mg/dL (8.4-10.2); Carbon Dioxide 27 mmol/L (22-29); Chloride 107 mmol/L (96-108); Creatinine Clr Calc Pharmacy 134.8; Estimated Glomerular Filt Rate > 60; Glucose Random 142 mg/dL (60-115); Magnesium 1.5 mg/dL (1.6-2.6); Potassium 3.2 mmol/L (3.3-5.1); Sodium 143 mmol/L (135-145)
[2022-05-30] MEDS: Magnesium Sulfate/D5W 1 GM/100 ML PIGGYBACK IV (10:40)
[2022-05-30] MEDS: Furosemide 40 MG TABLET PO ×2 (10:43→16:42)
--- NOTE | 2022-05-30 10:59 | HO.PM.IMPN ---
Subjective Subjective Date of Service: 05/30/22 Interval History: seen and examined this morning follow up for hypovolemic shock No abdominal pain. Nausea, vomiting improving, although still not eating. Denies diarrhea at this time no shortness of breath, no chest pain s/p egd/colonoscopy yesterday with multiple polypectomies Review of Systems Review of Systems: Yes all other systems are reviewed and are negative Constitutional Constitutional: Denies chills and Denies fever(s) Cardiovascular Cardiovascular: Denies chest pain, Denies palpitations and Denies dyspnea Respiratory Respiratory: Denies cough and Denies dyspnea Gastrointestinal Gastrointestinal: Denies abdominal pain, Denies diarrhea, Reports nausea and Denies vomiting Endocrine Endocrine: Denies palpitations Physical Exam Vital Signs: Vital Signs: Last Vital Signs Temp 98.1 F 05/30/22 07:39 Pulse 87 05/30/22 07:39 Resp 20 05/30/22 07:39 BP 132/70 05/30/22 07:39 Pulse Ox 95 05/30/22 07:39 O2 Del Method 05/30/22 07:39 O2 Flow Rate 1 05/28/22 13:00 BMI result Body Mass Index 24.7 Const: General: cooperative, no acute distress, alert and awake Nutritional Appearance: average body habitus Orientation/consciousness: patient oriented x3 Resp: Effort & Inspection: normal respiratory effort and able to speak in complete sentences Cardio: Rate: regular rate Heart sounds: S1 normal heart sound present and S2 normal heart sound present GI: Inspection: No distended Palpation (GI): Soft to palpation and nontender Skin: Other: abrasion central forehead, no surrounding erythema Neuro: General: patient oriented x3 and CN's II-XI intact bilaterally Extrem: Other: s/p left BKA, right transmetatarsal amputation Objective Data Active Medications Bisacodyl (Bisacodyl 5 Mg Tablet.) 10 mg PO ONCE@1100 [facility] Last Admin: 05/30/22 10:39 Dose: Not Given Documented By: CESAR Non-Admin Reason: Patient Refused Bisacodyl (Bisacodyl 5 Mg Tablet.) 10 mg PO ONCE [facility] Furosemide (Furosemide 40 Mg Tablet) 40 mg PO BID@0800,1700 [facility]; Protocol Last Admin: 05/30/22 10:43 Dose: 40 mg Documented By: CESAR Hydromorphone HCl (Hydromorphone Hcl 0.5 Mg/0.5 Ml Syringe) 0.5 mg IVPUSH Q4H PRN; Protocol PRN Reason: Pain, Severe (Pain Scale 7-10) Last Admin: 05/30/22 03:26 Dose: 0.5 mg Documented By: SERA Piperacillin Sod/Tazobactam (Sod 3.375 gm/ Sodium Chloride) 50 mls @ 100 mls/hr IV Q6H [facility] Stop: 06/02/22 10:59 Last Admin: 05/30/22 10:40 Dose: 100 mls/hr Documented By: CESAR Potassium Chloride 80 meq/Magnesium Sulfate 16 meq/Potassium Phosphate 40 mmol/Calcium Gluconate 9.3 meq/Multivitamins 10 ml/ Trace Metals 1 ml/ Amino Acids/Dextrose 2,040 mls @ 85 mls/hr IV DAILY@1800 [facility] Stop: 05/30/22 17:59 Magnesium Sulfate/Dextrose (Magnesium Sulfate/D5w) 1 gm in 100 mls @ 100 mls/hr IV ONCE ONE Stop: 05/30/22 11:08 Last Admin: 05/30/22 10:40 Dose: 100 mls/hr Documented By: CESAR Insulin Human Lispro (Insulin Lispro 100 Unit/Ml 3 Ml Vial) 0 unit SUBCUT Q6H [facility]; Protocol Last Admin: 05/30/22 06:44 Dose: Not Given Documented By: SERA Non-Admin Reason: No Insulin Coverage Metoclopramide HCl (Metoclopramide Hcl 10 Mg/2 Ml Vial) 10 mg IVPUSH Q12H [facility] Last Admin: 05/30/22 05:51 Dose: 10 mg Documented By: SERA Modafinil (Modafinil 100 Mg Tablet) 200 mg PO DAILY [facility] Last Admin: 05/30/22 08:52 Dose: 200 mg Documented By: CESAR Ondansetron HCl (Ondansetron Hcl 4 Mg/2 Ml Vial) 4 mg IVPUSH Q8H PRN PRN Reason: Nausea Last Admin: 05/29/22 00:30 Dose: 4 mg Documented By: CINTHYA Comments: Confirmed with MD aleman to give med early Pantoprazole Sodium (Pantoprazole Sodium 40 Mg/10 Ml Vial) 40 mg IVPUSH DAILY@0630 [facility] Last Admin: 05/30/22 05:51 Dose: 40 mg Documented By: SERA Pharmacy Consult (Consult Rx Perform Med Rec) 1 each MISCELLANE ONCE PRN PRN Reason: Consult order Potassium Chloride (Potassium Chloride Er 20 Meq Tab.Er.Prt) 40 meq PO ONCE ONE Stop: 05/30/22 10:58 Sertraline HCl (Sertraline Hcl 25 Mg Tablet) 25 mg PO DAILY [facility] Last Admin: 05/30/22 08:52 Dose: 25 mg Documented By: CESAR Zinc Oxide (Zinc Oxide 20% Ointment 28.35 Gm Tube) 1 appl TOPICAL DAILY [facility]; Protocol Last Admin: 05/30/22 08:53 Dose: 1 appl Documented By: CESAR Labs CBC & Chem 7: 05/30/22 08:06 05/30/22 08:06 Labs: Laboratory Results - last 24 hr 05/29/22 05/29/22 05/29/22 11:12 14:48 19:33 MCV MCH MCHC RDW Plt Count MPV Absolute Nucleated RBC Nucleated RBC % (auto) Anion Gap Estim Creat Clear Calc Estimated GFR POC Glucose 227 H 164 H 168 H Random Glucose Calcium Magnesium 05/30/22 05/30/22 05/30/22 00:44 06:43 07:37 MCV MCH MCHC RDW Plt Count MPV Absolute Nucleated RBC Nucleated RBC % (auto) Anion Gap Estim Creat Clear Calc Estimated GFR POC Glucose 213 H 140 H 117 H Random Glucose Calcium Magnesium 05/30/22 05/30/22 08:06 08:06 MCV 87.5 MCH 30.0 MCHC 34.2 RDW 13.8 Plt Count 134 L MPV 9.9 Absolute Nucleated RBC 0.000 Nucleated RBC % (auto) 0.0 Anion Gap 12 Estim Creat Clear Calc 134.8 Estimated GFR > 60 POC Glucose Random Glucose 142 H D Calcium 8.4 Magnesium 1.5 L Assessment and Plan (1) Stage II pressure ulcer of sacral region: Status: Acute (2) Occult GI bleeding: Status: Acute Plan This is a 62-year-old male with a history of PAD, CAD, PAF on Xarelto, HFrEF, ICM, DM with multiple amputations, HTN, HLD who initially presented to the ED 05/26 after not eating or getting out of bed for 2 weeks due to the recent of his mother and was initially admitted to the ICU due to metabolic acidosis, ANDRÉS, anemia and hypovolemic shock requiring pressors downgraded to the medical floor 05/28 Hypokalemia/hypomagnesemia replace and follow getting replacement in tpn declined kphos yesterday Hypovolemic shock Thought to be secondary to severe hypovolemia with underlying severe ischemic cardiomyopathy and lack of compensatory cardiovascular reserve Imaging showing possible diverticulitis versus colitis but No significant diarrhea while in ICU, was not felt to represent sepsis Leukocytosis resolved. Started on zosyn 05/28, will continue 5 day course to end 06/02 Anemia with heme + stools no overt bleeding noted Seen by GI- s/p EGD/colo 05/29 - s/p gastric and colon polypypectomy - follow biopsy results H/H stable; s/p transfusion in ICU IV PPI Xarelto on hold - GI recommend to hold Asa, and xarelto for 1 week given multiple polypectomies Stage II sacralcoccygeal pressure ulcer Seen by wound care Continue local wound care Depression started on sertraline and provigil in ICU seen by psych - continue for now, will not likely d/c with provigil PAF amiodarone held in ICU xarelto on hold for anemia. can resume 06/05 CAD aspirin on hold for anemia - can resume 06/05 coerg on hold initially for hypotension DM Not on diabetic meds at baseline? SSI HTN valsartan, coreg on hold BP improving will resume meds as BP allows HFrEF Last echo 03/2021 showed:? Moderately dilated LV with severe LV systolic dysfunction with EF of 20-25% with grade 2 diastolic dysfunction with underlying RWMAs; moderately dilated LA; [id number] mitral regurgitation Lasix resumed -aldactone on hold -monitor fluid status closely Thrombocytopenia Related to acute illness Follow CBC HLD Gemfibrozil on hold Moderate protein calorie malnutrition Started on TPN in ICU diet resumed, still not eating,continue TPN for now ANDRÉS. Secondary to hypovolemia - resolved Metabolic acidosis. Secondary to ANDRÉS- resolved Hyponatremia. Secondary to hypovolemia- resolved DVT ppx - xrelto on hold for anemia Attending - Dr. Barillas Patient requires ongoing inpatient hospitalization for management and workup of anemia Quality Stroke Does the patient have a stroke diagnosis?: No VTE Prior VTE?: No VTE Risk Level:: Medical - moderate - high VTE Device Contraindication: N/A - Device Ordered VTE Drug Contraindication: Treatment Not Indicated
--- NOTE | 2022-05-30 11:06 | HO.POSTANES ---
Post Anesthesia Evaluation Post Anesthesia Evaluation Vital Signs: Vital Signs Temp Pulse Resp BP Pulse Ox O2 Del Method 05/30/22 07:39 98.1 F 87 20 132/70 95 Room Air 05/30/22 03:19 98.0 F 97 16 161/77 H 96 Room Air Anesthesia: Monitored Mental Status: Awake Pain Control: Satisfactory Nausea/Vomiting: None Hydration: Adequate Anesthesia-Related Issues: No Anes. Related Issues
[2022-05-30 11:13] LABS: Glucose, Whole Blood 149 mg/dL (60-115)
[2022-05-30 11:26] LABS: Albumin Level 3.1 g/dL (3.5-5.0); Phosphorus 1.7 mg/dL (2.7-4.5)
[2022-05-30] MEDS: Potassium Chloride ER 20 MEQ TAB.ER.PRT 40 MEQ PO (12:30)
[2022-05-30 16:38] LABS: Glucose, Whole Blood 118 mg/dL (60-115)
[2022-05-30] MEDS: Omeprazole 20 MG CAPSULE.DR PO (16:42)
[2022-05-30 19:55] LABS: Glucose, Whole Blood 177 mg/dL (60-115)
[2022-05-31] VITALS (7 sets, daily range): BP systolic 123–148; BP diastolic 58–72; PULSE 75–88; RESP 17–18; TEMP 36.2–36.9; O2SAT 95–96; BMI 24.7
[2022-05-31 00:31] LABS: Glucose, Whole Blood 237 mg/dL (60-115)
[2022-05-31] MEDS: Piperacillin Sodium/Tazobactam 3.375 GM in 0.9 % Sodium Chloride 50 ML IV ×5 (00:41→22:54)
[2022-05-31] MEDS: Insulin Lispro 100 UNIT/ML 3 ML VIAL SUBCUT ×3 (00:42→16:53)
[2022-05-31] MEDS: HYDROmorphone HCl 0.5 MG/0.5 ML SYRINGE IVPUSH ×5 (02:32→22:53)
[2022-05-31] MEDS: Omeprazole 20 MG CAPSULE.DR PO ×2 (06:40→16:53)
[2022-05-31] MEDS: Metoclopramide HCl 10 MG/2 ML VIAL IVPUSH ×2 (06:40→18:05)
[2022-05-31 06:47] LABS: Hemoglobin 8.8 g/dl (14.0-18.0); Mean Corpuscular HGB Conc 33.8 g/dl (31.0-36.0); Mean Corpuscular Hemoglobin 29.8 pg (27.0-33.0); Mean Corpuscular Volume 88.1 fL (80.0-98.0); Mean Platelet Volume 9.6 fL (9.4-12.4); Platelet Count 141 X10*3/uL (160-400); Red Blood Count 2.95 X10*6/uL (4.60-5.80); Red Cell Distribution Width 13.4 % (11.0-16.0); White Blood Count 9.9 X10*3/uL (4.8-10.8)
[2022-05-31 07:14] LABS: Anion Gap 11 (12-20); Blood Urea Nitrogen 18 mg/dL (9-16); Calcium 7.9 mg/dL (8.4-10.2); Carbon Dioxide 29 mmol/L (22-29); Chloride 103 mmol/L (96-108); Creatinine Clr Calc Pharmacy 134.8; Estimated Glomerular Filt Rate > 60; Glucose Random 183 mg/dL (60-115); Magnesium 1.6 mg/dL (1.6-2.6); Phosphorus 1.9 mg/dL (2.7-4.5); Potassium 3.6 mmol/L (3.3-5.1); Sodium 139 mmol/L (135-145)
[2022-05-31 08:30] LABS: Glucose, Whole Blood 154 mg/dL (60-115)
[2022-05-31] MEDS: Furosemide 40 MG TABLET PO ×2 (08:52→16:53)
[2022-05-31] MEDS: Sertraline HCL 25 MG TABLET PO (08:53)
[2022-05-31] MEDS: modafiniL 100 MG TABLET 200 MG PO (08:53)
[2022-05-31] MEDS: Zinc Oxide 20% Ointment 28.35 GM TUBE 1 APPL TOPICAL (11:01)
[2022-05-31 11:58] LABS: Glucose, Whole Blood 181 mg/dL (60-115)
--- NOTE | 2022-05-31 13:18 | PC.NURSE ---
no urinary catheter
--- NOTE | 2022-05-31 14:06 | HO.PM.IMPN ---
Subjective Subjective Date of Service: 05/31/22 Interval History: seen and examined this morning follow up for hypovolemic shock, GIB still not eating much, reports no appetite Denies abdominal pain, nausea, vomiting, diarrhea No fever, chills Review of Systems Review of Systems: Yes all other systems are reviewed and are negative Constitutional Constitutional: Denies chills and Denies fever(s) Cardiovascular Cardiovascular: Denies chest pain, Denies palpitations and Denies dyspnea Respiratory Respiratory: Denies cough and Denies dyspnea Gastrointestinal Gastrointestinal: Denies abdominal pain, Denies diarrhea, Denies nausea and Denies vomiting Endocrine Endocrine: Denies palpitations Physical Exam Vital Signs: Vital Signs: Last Vital Signs Temp 97.4 F 05/31/22 12:00 Pulse 80 05/31/22 12:00 Resp 17 05/31/22 12:00 BP 139/64 05/31/22 12:00 Pulse Ox 96 05/31/22 12:00 O2 Del Method 05/31/22 12:00 O2 Flow Rate 1 05/28/22 13:00 BMI result Body Mass Index 24.7 Const: General: cooperative, no acute distress, alert and awake Nutritional Appearance: average body habitus Orientation/consciousness: patient oriented x3 Resp: Effort & Inspection: normal respiratory effort and able to speak in complete sentences Auscultation: clear to auscultation bilaterally Cardio: Rate: regular rate Heart sounds: S1 normal heart sound present and S2 normal heart sound present GI: Inspection: No distended Palpation (GI): Soft to palpation and nontender Skin: Other: abrasion central forehead, no surrounding erythema Neuro: General: patient oriented x3 and CN's II-XI intact bilaterally Extrem: Other: s/p left BKA, right transmetatarsal amputation Objective Data Active Medications Furosemide (Furosemide 40 Mg Tablet) 40 mg PO BID@0800,1700 [facility]; Protocol Last Admin: 05/31/22 08:52 Dose: 40 mg Documented By: ELENA Hydromorphone HCl (Hydromorphone Hcl 0.5 Mg/0.5 Ml Syringe) 0.5 mg IVPUSH Q4H PRN; Protocol PRN Reason: Pain, Severe (Pain Scale 7-10) Last Admin: 05/31/22 13:56 Dose: 0.5 mg Documented By: ELENA Piperacillin Sod/Tazobactam (Sod 3.375 gm/ Sodium Chloride) 50 mls @ 100 mls/hr IV Q6H [facility] Stop: 06/02/22 10:59 Last Infusion: 05/31/22 13:14 Dose: 0 mls/hr Documented By: ELENA Potassium Chloride 20 meq/Magnesium Sulfate 8 meq/Potassium Phosphate 20 mmol/Calcium Gluconate 4.65 meq/Amino Acids/Electrolytes/Dextrose 1,028.6667 mls @ 85 mls/hr IVCONT DAILY@0615 [facility] Stop: 05/31/22 17:59 Last Admin: 05/31/22 09:24 Dose: 85 mls/hr Documented By: ELENA Potassium Chloride 20 meq/Magnesium Sulfate 8 meq/Potassium Phosphate 20 mmol/Calcium Gluconate 4.65 meq/Multivitamins 10 ml/ Trace Metals 1 ml/ Amino Acids/Electrolytes/Dextrose 1,039.6667 mls @ 85 mls/hr IVCONT DAILY@1800 [facility] Stop: 06/01/22 06:14 Potassium Chloride 20 meq/Magnesium Sulfate 8 meq/Potassium Phosphate 20 mmol/Calcium Gluconate 4.65 meq/Amino Acids/Electrolytes/Dextrose 1,028.6667 mls @ 85 mls/hr IVCONT DAILY@0614 [facility] Stop: 06/01/22 17:59 Insulin Human Lispro (Insulin Lispro 100 Unit/Ml 3 Ml Vial) 0 unit SUBCUT Q6H [facility]; Protocol Last Admin: 05/31/22 12:27 Dose: 2 unit Documented By: ELENA Metoclopramide HCl (Metoclopramide Hcl 10 Mg/2 Ml Vial) 10 mg IVPUSH Q12H [facility] Last Admin: 05/31/22 06:40 Dose: 10 mg Documented By: ALANNA Modafinil (Modafinil 100 Mg Tablet) 200 mg PO DAILY [facility] Last Admin: 05/31/22 08:53 Dose: 200 mg Documented By: ELENA Omeprazole (Omeprazole 20 Mg Capsule.Dr) 20 mg PO BID@0630,1630 [facility] Last Admin: 05/31/22 06:40 Dose: 20 mg Documented By: ALANNA Ondansetron HCl (Ondansetron Hcl 4 Mg/2 Ml Vial) 4 mg IVPUSH Q8H PRN PRN Reason: Nausea Last Admin: 05/29/22 00:30 Dose: 4 mg Documented By: CINTHYA Comments: Confirmed with MD aleman to give med early Pharmacy Consult (Consult Rx Perform Med Rec) 1 each MISCELLANE ONCE PRN PRN Reason: Consult order Sertraline HCl (Sertraline Hcl 25 Mg Tablet) 25 mg PO DAILY [facility] Last Admin: 05/31/22 08:53 Dose: 25 mg Documented By: ELENA Zinc Oxide (Zinc Oxide 20% Ointment 28.35 Gm Tube) 1 appl TOPICAL DAILY [facility]; Protocol Last Admin: 05/31/22 11:01 Dose: 1 appl Documented By: ELENA Labs CBC & Chem 7: 05/31/22 05:59 05/31/22 05:59 Labs: Laboratory Results - last 24 hr 05/26/22 05/30/22 05/30/22 20:09 16:32 19:52 MCV MCH MCHC RDW Plt Count MPV Absolute Nucleated RBC Nucleated RBC % (auto) Anion Gap Estim Creat Clear Calc Estimated GFR POC Glucose 118 H 177 H Random Glucose Calcium Phosphorus Magnesium Crossmatch ([facility]) See Detail 05/31/22 05/31/22 05/31/22 00:27 05:59 05:59 MCV 88.1 MCH 29.8 MCHC 33.8 RDW 13.4 Plt Count 141 L MPV 9.6 Absolute Nucleated RBC 0.000 Nucleated RBC % (auto) 0.0 Anion Gap 11 L Estim Creat Clear Calc 134.8 Estimated GFR > 60 POC Glucose 237 H Random Glucose 183 H Calcium 7.9 L Phosphorus 1.9 L Magnesium 1.6 Crossmatch ([facility]) 05/31/22 05/31/22 07:43 11:20 MCV MCH MCHC RDW Plt Count MPV Absolute Nucleated RBC Nucleated RBC % (auto) Anion Gap Estim Creat Clear Calc Estimated GFR POC Glucose 154 H 181 H Random Glucose Calcium Phosphorus Magnesium Crossmatch ([facility]) Microbiology Microbiology Results: Microbiology 05/26/22 11:34 Blood Culture - Final Blood - Venous No growth after 5 days. 05/26/22 11:23 Blood Culture - Final Blood - Venous No growth after 5 days. Assessment and Plan (1) Stage II pressure ulcer of sacral region: Status: Acute Plan This is a 62-year-old male with a history of PAD, CAD, PAF on Xarelto, HFrEF, ICM, DM with multiple amputations, HTN, HLD who initially presented to the ED 05/26 after not eating or getting out of bed for 2 weeks due to the recent of his mother and was initially admitted to the ICU due to metabolic acidosis, ANDRÉS, anemia and hypovolemic shock requiring pressors downgraded to the medical floor 05/28 Hypokalemia/hypomagnesemia potassium improved getting replacement in tpn declining kphos follow BMP Hypovolemic shock Thought to be secondary to severe hypovolemia with underlying severe ischemic cardiomyopathy and lack of compensatory cardiovascular reserve Imaging showing possible diverticulitis versus colitis but No significant diarrhea while in ICU, was not felt to represent sepsis Leukocytosis resolved. Started on zosyn 05/28, will continue 5 day course to end 06/02 Anemia with heme + stools no overt bleeding noted Seen by GI- s/p EGD/colo 05/29 - s/p gastric and colon polypypectomy - follow biopsy results s/p transfusion in ICU transition PPI back to po Xarelto on hold - GI recommend to hold Asa, and xarelto for 1 week given multiple polypectomies H/H has remained stable Stage II sacralcoccygeal pressure ulcer Seen by wound care Continue local wound care Depression started on sertraline and provigil in ICU seen by psych - continue for now, will not likely d/c with provigil PAF amiodarone held in ICU. In NSR resume Coreg xarelto on hold for anemia. can resume 06/05 CAD aspirin on hold for anemia - can resume 06/05 coerg on hold initially for hypotension, will resume now that BP rebounding DM Not on diabetic meds at baseline? SSI HTN valsartan on hold resume coreg BP improving will resume meds as BP allows HFrEF Last echo 03/2021 showed:? Moderately dilated LV with severe LV systolic dysfunction with EF of 20-25% with grade 2 diastolic dysfunction with underlying RWMAs; moderately dilated LA; [id number] mitral regurgitation Lasix resumed -aldactone on hold -monitor fluid status closely Thrombocytopenia Related to acute illness Follow CBC HLD Resume Gemfibrozil Moderate protein calorie malnutrition Started on TPN in ICU diet resumed, still not eating,continue TPN for now ANDRÉS. Secondary to hypovolemia - resolved Metabolic acidosis. Secondary to ANDRÉS- resolved Hyponatremia. Secondary to hypovolemia- resolved DVT ppx - xrelto on hold for anemia Attending - Dr. Barillas Patient requires ongoing inpatient hospitalization for management and workup of anemia, TPN Quality Stroke Does the patient have a stroke diagnosis?: No VTE Prior VTE?: No VTE Risk Level:: Medical - moderate - high VTE Device Contraindication: N/A - Device Ordered VTE Drug Contraindication: Treatment Not Indicated
[2022-05-31 16:09] LABS: Glucose, Whole Blood 251 mg/dL (60-115)
[2022-05-31 20:10] LABS: Glucose, Whole Blood 172 mg/dL (60-115)
[2022-05-31] MEDS: carvediloL 6.25 MG TABLET PO (20:55)
[2022-05-31] MEDS: gemfibroziL 600 MG TABLET PO (20:55)
[2022-06-01] VITALS (7 sets, daily range): BP systolic 119–139; BP diastolic 57–65; PULSE 64–80; RESP 15–18; TEMP 36.5–37.1; O2SAT 94–97
[2022-06-01 01:06] LABS: Glucose, Whole Blood 201 mg/dL (60-115)
[2022-06-01] MEDS: Insulin Lispro 100 UNIT/ML 3 ML VIAL SUBCUT ×2 (01:13→12:11)
[2022-06-01] MEDS: HYDROmorphone HCl 0.5 MG/0.5 ML SYRINGE IVPUSH ×5 (03:18→21:49)
[2022-06-01 06:37] LABS: Glucose, Whole Blood 174 mg/dL (60-115)
[2022-06-01] MEDS: Omeprazole 20 MG CAPSULE.DR PO ×2 (06:45→17:46)
[2022-06-01] MEDS: Piperacillin Sodium/Tazobactam 3.375 GM in 0.9 % Sodium Chloride 50 ML IV ×4 (06:45→23:19)
[2022-06-01] MEDS: Metoclopramide HCl 10 MG/2 ML VIAL IVPUSH ×2 (06:45→20:37)
[2022-06-01 07:07] LABS: Mean Corpuscular HGB Conc 34.6 g/dl (31.0-36.0); Mean Corpuscular Hemoglobin 29.8 pg (27.0-33.0); Mean Corpuscular Volume 86.1 fL (80.0-98.0); Mean Platelet Volume 9.3 fL (9.4-12.4); Platelet Count 138 X10*3/uL (160-400); Red Blood Count 3.02 X10*6/uL (4.60-5.80); Red Cell Distribution Width 13.3 % (11.0-16.0); White Blood Count 12.4 X10*3/uL (4.8-10.8)
[2022-06-01 07:20] LABS: Anion Gap 10 (12-20); Blood Urea Nitrogen 19 mg/dL (9-16); Calcium 7.8 mg/dL (8.4-10.2); Carbon Dioxide 30 mmol/L (22-29); Chloride 100 mmol/L (96-108); Creatinine Clr Calc Pharmacy 141.2; Estimated Glomerular Filt Rate > 60; Glucose Random 180 mg/dL (60-115); Potassium 3.7 mmol/L (3.3-5.1); Sodium 136 mmol/L (135-145)
[2022-06-01 07:44] LABS: Magnesium 1.6 mg/dL (1.6-2.6); Phosphorus 2.6 mg/dL (2.7-4.5)
[2022-06-01 07:48] LABS: Glucose, Whole Blood 180 mg/dL (60-115)
[2022-06-01] MEDS: gemfibroziL 600 MG TABLET PO ×2 (08:29→20:37)
[2022-06-01] MEDS: Furosemide 40 MG TABLET PO ×2 (08:29→17:46)
[2022-06-01] MEDS: modafiniL 100 MG TABLET 200 MG PO (08:29)
[2022-06-01] MEDS: Sertraline HCL 25 MG TABLET PO (08:30)
[2022-06-01] MEDS: Zinc Oxide 20% Ointment 28.35 GM TUBE 1 APPL TOPICAL (08:30)
[2022-06-01] MEDS: carvediloL 6.25 MG TABLET PO ×2 (08:30→20:37)
--- NOTE | 2022-06-01 10:19 | MHC.CLN ---
F/U PT IS MODERATELY MALNOURISHED SEE ALSO FULL CLINICAL NUTRITION ASSESSMENT DATED 05/27/22 PT WAS RECEIVING PPN OVER THE WEEKEND D10AA4.25 AT 85ML/HR PROVIDED 1040KCALS, 87G PROTEIN SPOKE WITH PT THIS AM REGARDING PO INTAKE. PT CONSUMED BREAKFAST OF CEREAL AND FRUIT. HE ALSO ATE DINNER LAST EVENING CONSISTING OF [place]BUR[place], CARROTS, AND FRUIT. PO INTAKE HAS IMPROVED SINCE ADMISSION. PT REFUSES NUTRITION SUPPLEMENT AT THIS TIME. DISCUSSED WITH PHARMACY AND SILVERING DEPARTMENT SUPERVISOR RECOMMEND D/C PPN TODAY R/T INCREASING PO INTAKE MONITOR PO INTAKE CLOSELY
--- NOTE | 2022-06-01 10:32 | HO.PM.IMPN ---
Subjective Subjective Date of Service: 06/01/22 Interval History: follow up for hypovolemic shock, GIB Ate breakfast today Denies abdominal pain, nausea, vomiting, diarrhea No fever, chills Review of Systems Review of Systems: Yes all other systems are reviewed and are negative Constitutional Constitutional: Denies chills and Denies fever(s) Cardiovascular Cardiovascular: Denies chest pain, Denies palpitations and Denies dyspnea Respiratory Respiratory: Denies cough and Denies dyspnea Gastrointestinal Gastrointestinal: Denies abdominal pain, Denies diarrhea, Denies nausea and Denies vomiting Endocrine Endocrine: Denies palpitations Physical Exam Vital Signs: Vital Signs: Last Vital Signs Temp 98.7 F 06/01/22 08:09 Pulse 64 06/01/22 08:09 Resp 17 06/01/22 08:09 BP 119/57 L 06/01/22 08:09 Pulse Ox 96 06/01/22 08:09 O2 Del Method 06/01/22 08:09 O2 Flow Rate 1 05/28/22 13:00 BMI result Body Mass Index 24.7 Appearing in no acute distress lung sounds are clear to auscultation heart regular rate rhythm, clear S1, S2 positive bowel sounds, abdomen is soft, nontender neuro patient is alert x3, no focal deficits Left BKA, right TMA Objective Data Active Medications Carvedilol (Carvedilol 6.25 Mg Tablet) 6.25 mg PO BID COUNTS INCLUDE 234 BEDS AT THE [facility]; Protocol Last Admin: 06/01/22 08:30 Dose: 6.25 mg Documented By: BRORhea Furosemide (Furosemide 40 Mg Tablet) 40 mg PO BID@0800,1700 COUNTS INCLUDE 234 BEDS AT THE [facility]; Protocol Last Admin: 06/01/22 08:29 Dose: 40 mg Documented By: LUCIANA Gemfibrozil (Gemfibrozil 600 Mg Tablet) 600 mg PO BID COUNTS INCLUDE 234 BEDS AT THE [facility] Last Admin: 06/01/22 08:29 Dose: 600 mg Documented By: LUCIANA Hydromorphone HCl (Hydromorphone Hcl 0.5 Mg/0.5 Ml Syringe) 0.5 mg IVPUSH Q4H PRN; Protocol PRN Reason: Pain, Severe (Pain Scale 7-10) Last Admin: 06/01/22 03:18 Dose: 0.5 mg Documented By: ZULMA Piperacillin Sod/Tazobactam (Sod 3.375 gm/ Sodium Chloride) 50 mls @ 100 mls/hr IV Q6H COUNTS INCLUDE 234 BEDS AT THE [facility] Stop: 06/02/22 10:59 Last Infusion: 06/01/22 08:00 Dose: 0 mls/hr Documented By: LUCIANA Potassium Chloride 20 meq/Magnesium Sulfate 8 meq/Potassium Phosphate 20 mmol/Calcium Gluconate 4.65 meq/Amino Acids/Electrolytes/Dextrose 1,028.6667 mls @ 85 mls/hr IVCONT DAILY@0614 COUNTS INCLUDE 234 BEDS AT THE [facility] Stop: 06/01/22 17:59 Last Admin: 06/01/22 06:45 Dose: 85 mls/hr Documented By: PATRICIA Insulin Human Lispro (Insulin Lispro 100 Unit/Ml 3 Ml Vial) 0 unit SUBCUT Q6H COUNTS INCLUDE 234 BEDS AT THE [facility]; Protocol Last Admin: 06/01/22 06:36 Dose: Not Given Documented By: PATRICIA Non-Admin Reason: No Insulin Coverage Metoclopramide HCl (Metoclopramide Hcl 10 Mg/2 Ml Vial) 10 mg IVPUSH Q12H COUNTS INCLUDE 234 BEDS AT THE [facility] Last Admin: 06/01/22 06:45 Dose: 10 mg Documented By: PATRICIA Modafinil (Modafinil 100 Mg Tablet) 200 mg PO DAILY COUNTS INCLUDE 234 BEDS AT THE [facility] Last Admin: 06/01/22 08:29 Dose: 200 mg Documented By: LUCIANA Omeprazole (Omeprazole 20 Mg Capsule.Dr) 20 mg PO BID@0630,1630 COUNTS INCLUDE 234 BEDS AT THE [facility] Last Admin: 06/01/22 06:45 Dose: 20 mg Documented By: PATRICIA Ondansetron HCl (Ondansetron Hcl 4 Mg/2 Ml Vial) 4 mg IVPUSH Q8H PRN PRN Reason: Nausea Last Admin: 05/29/22 00:30 Dose: 4 mg Documented By: CINTHYA Comments: Confirmed with MD aleman to give med early Pharmacy Consult (Consult Rx Perform Med Rec) 1 each MISCELLANE ONCE PRN PRN Reason: Consult order Sertraline HCl (Sertraline Hcl 25 Mg Tablet) 25 mg PO DAILY COUNTS INCLUDE 234 BEDS AT THE [facility] Last Admin: 06/01/22 08:30 Dose: 25 mg Documented By: LUCIANA Zinc Oxide (Zinc Oxide 20% Ointment 28.35 Gm Tube) 1 appl TOPICAL DAILY COUNTS INCLUDE 234 BEDS AT THE [facility]; Protocol Last Admin: 06/01/22 08:30 Dose: 1 appl Documented By: LUCIANA Labs CBC & Chem 7: 06/01/22 06:42 06/01/22 06:42 Labs: Laboratory Results - last 24 hr 05/26/22 05/31/22 05/31/22 20:09 11:20 16:03 MCV MCH MCHC RDW Plt Count MPV Absolute Nucleated RBC Nucleated RBC % (auto) Anion Gap Estim Creat Clear Calc Estimated GFR POC Glucose 181 H 251 H Random Glucose Calcium Phosphorus Magnesium Albumin Crossmatch (AHG) See Detail 05/31/22 06/01/22 06/01/22 20:07 01:03 06:35 MCV MCH MCHC RDW Plt Count MPV Absolute Nucleated RBC Nucleated RBC % (auto) Anion Gap Estim Creat Clear Calc Estimated GFR POC Glucose 172 H 201 H 174 H Random Glucose Calcium Phosphorus Magnesium Albumin Crossmatch (AHG) 06/01/22 06/01/22 06/01/22 06:42 06:42 07:23 MCV 86.1 MCH 29.8 MCHC 34.6 RDW 13.3 Plt Count 138 L MPV 9.3 L Absolute Nucleated RBC 0.000 Nucleated RBC % (auto) 0.0 Anion Gap 10 L Estim Creat Clear Calc 141.2 Estimated GFR > 60 POC Glucose 180 H Random Glucose 180 H Calcium 7.8 L Phosphorus 2.6 L Magnesium 1.6 Albumin 3.0 L Crossmatch (AHG) Microbiology Microbiology Results: Microbiology 05/26/22 11:34 Blood Culture - Final Blood - Venous No growth after 5 days. 05/26/22 11:23 Blood Culture - Final Blood - Venous No growth after 5 days. Assessment and Plan (1) Stage II pressure ulcer of sacral region: Status: Acute Plan This is a 62-year-old male with a history of PAD, CAD, PAF on Xarelto, HFrEF, ICM, DM with multiple amputations, HTN, HLD who initially presented to the ED 05/26 after not eating or getting out of bed for 2 weeks due to the recent of his mother and was initially admitted to the ICU due to metabolic acidosis, ANDRÉS, anemia and hypovolemic shock requiring pressors downgraded to the medical floor 05/28 Hypokalemia/hypomagnesemia potassium improved declining kphos follow BMP Hypovolemic shock Thought to be secondary to severe hypovolemia with underlying severe ischemic cardiomyopathy and lack of compensatory cardiovascular reserve Imaging showing possible diverticulitis versus colitis but No significant diarrhea while in ICU, was not felt to represent sepsis Leukocytosis resolved. Started on zosyn 05/28, will continue 5 day course to end 06/02 Anemia with heme + stools no overt bleeding noted Seen by GI- s/p EGD/colo 05/29 - s/p gastric and colon polypypectomy - follow biopsy results transition PPI back to po Xarelto on hold - GI recommend to hold Asa, and xarelto for 1 week given multiple polypectomies H/H has remained stable Stage II sacralcoccygeal pressure ulcer Seen by wound care Continue local wound care Depression started on sertraline and provigil in ICU seen by psych - continue for now, will not likely d/c with provigil PAF amiodarone held in ICU. In NSR resume Coreg xarelto on hold for anemia. can resume 06/05 CAD aspirin on hold for anemia - can resume 06/05 coreg on hold initially for hypotension, will resume now that BP rebounding DM Not on diabetic meds at baseline? SSI HTN valsartan on hold resume coreg BP improving will resume meds as BP allows HFrEF Last echo 03/2021 showed:? Moderately dilated LV with severe LV systolic dysfunction with EF of 20-25% with grade 2 diastolic dysfunction with underlying RWMAs; moderately dilated LA; [id number] mitral regurgitation Lasix resumed aldactone on hold monitor fluid status closely Thrombocytopenia Related to acute illness Follow CBC HLD Resume Gemfibrozil Moderate protein calorie malnutrition Stopped TPN diet resumed ANDRÉS. Secondary to hypovolemia - resolved Metabolic acidosis. Secondary to ANDRÉS- resolved Hyponatremia. Secondary to hypovolemia- resolved DVT ppx - xrelto on hold for anemia Attending - Dr. Barillas Patient requires ongoing inpatient hospitalization for management and workup of anemia, TPN Quality Stroke Does the patient have a stroke diagnosis?: No VTE Prior VTE?: No VTE Risk Level:: Medical - moderate - high VTE Device Contraindication: N/A - Device Ordered VTE Drug Contraindication: Treatment Not Indicated
[2022-06-01 12:00] LABS: Glucose, Whole Blood 239 mg/dL (60-115)
[2022-06-01 16:23] LABS: Glucose, Whole Blood 137 mg/dL (60-115)
[2022-06-01 20:25] LABS: Glucose, Whole Blood 163 mg/dL (60-115)
[2022-06-02] VITALS (7 sets, daily range): BP systolic 127–143; BP diastolic 62–68; PULSE 69–76; RESP 17–18; TEMP 36.4–37.1; O2SAT 94–97; BMI 23.3
[2022-06-02 00:16] LABS: Glucose, Whole Blood 152 mg/dL (60-115)
[2022-06-02] MEDS: HYDROmorphone HCl 0.5 MG/0.5 ML SYRINGE IVPUSH ×6 (02:19→23:54)
[2022-06-02] MEDS: Piperacillin Sodium/Tazobactam 3.375 GM in 0.9 % Sodium Chloride 50 ML IV (05:56)
[2022-06-02] MEDS: Omeprazole 20 MG CAPSULE.DR PO ×2 (05:56→17:33)
[2022-06-02] MEDS: Metoclopramide HCl 10 MG/2 ML VIAL IVPUSH ×2 (06:01→19:47)
[2022-06-02 06:02] LABS: Glucose, Whole Blood 107 mg/dL (60-115)
--- NOTE | 2022-06-02 09:12 | HO.PM.IMPN ---
Subjective Subjective Date of Service: 06/02/22 Interval History: follow up for hypovolemic shock, GIB Aappetite good Denies abdominal pain, nausea, vomiting, diarrhea No fever, chills Review of Systems Review of Systems: Yes all other systems are reviewed and are negative Constitutional Constitutional: Denies chills and Denies fever(s) Cardiovascular Cardiovascular: Denies chest pain, Denies palpitations and Denies dyspnea Respiratory Respiratory: Denies cough and Denies dyspnea Gastrointestinal Gastrointestinal: Denies abdominal pain, Denies diarrhea, Denies nausea and Denies vomiting Endocrine Endocrine: Denies palpitations Physical Exam Vital Signs: Vital Signs: Last Vital Signs Temp 97.5 F 06/02/22 08:00 Pulse 69 06/02/22 08:00 Resp 18 06/02/22 08:00 BP 138/62 06/02/22 08:00 Pulse Ox 97 06/02/22 08:00 O2 Del Method 06/02/22 08:00 O2 Flow Rate 1 05/28/22 13:00 BMI result Body Mass Index 23.3 Appearing in no acute distress lung sounds are clear to auscultation heart regular rate rhythm, clear S1, S2 positive bowel sounds, abdomen is soft, nontender neuro patient is alert x3, no focal deficits Left BKA, right TMA Objective Data Active Medications Carvedilol (Carvedilol 6.25 Mg Tablet) 6.25 mg PO BID [facility]; Protocol Last Admin: 06/01/22 20:37 Dose: 6.25 mg Documented By: ZULMA Furosemide (Furosemide 40 Mg Tablet) 40 mg PO BID@0800,1700 [facility]; Protocol Last Admin: 06/01/22 17:46 Dose: 40 mg Documented By: DOBRORhea Gemfibrozil (Gemfibrozil 600 Mg Tablet) 600 mg PO BID [facility] Last Admin: 06/01/22 20:37 Dose: 600 mg Documented By: ZULMA Hydromorphone HCl (Hydromorphone Hcl 0.5 Mg/0.5 Ml Syringe) 0.5 mg IVPUSH Q4H PRN; Protocol PRN Reason: Pain, Severe (Pain Scale 7-10) Last Admin: 06/02/22 06:41 Dose: 0.5 mg Documented By: ZULMA Piperacillin Sod/Tazobactam (Sod 3.375 gm/ Sodium Chloride) 50 mls @ 100 mls/hr IV Q6H [facility] Stop: 06/02/22 10:59 Last Infusion: 06/02/22 06:39 Dose: 0 mls/hr Documented By: PATRICIA Insulin Human Lispro (Insulin Lispro 100 Unit/Ml 3 Ml Vial) 0 unit SUBCUT Q6H [facility]; Protocol Last Admin: 06/02/22 06:06 Dose: Not Given Documented By: ZULMA Non-Admin Reason: No Insulin Coverage Metoclopramide HCl (Metoclopramide Hcl 10 Mg/2 Ml Vial) 10 mg IVPUSH Q12H [facility] Last Admin: 06/02/22 06:01 Dose: 10 mg Documented By: ZULMA Modafinil (Modafinil 100 Mg Tablet) 200 mg PO DAILY [facility] Last Admin: 06/01/22 08:29 Dose: 200 mg Documented By: LUCIANA Omeprazole (Omeprazole 20 Mg Capsule.Dr) 20 mg PO BID@0630,1630 [facility] Last Admin: 06/02/22 05:56 Dose: 20 mg Documented By: ZULMA Ondansetron HCl (Ondansetron Hcl 4 Mg/2 Ml Vial) 4 mg IVPUSH Q8H PRN PRN Reason: Nausea Last Admin: 05/29/22 00:30 Dose: 4 mg Documented By: CINTHYA Comments: Confirmed with MD aleman to give med early Pharmacy Consult (Consult Rx Perform Med Rec) 1 each MISCELLANE ONCE PRN PRN Reason: Consult order Sertraline HCl (Sertraline Hcl 25 Mg Tablet) 25 mg PO DAILY [facility] Last Admin: 06/01/22 08:30 Dose: 25 mg Documented By: LUCIANA Zinc Oxide (Zinc Oxide 20% Ointment 28.35 Gm Tube) 1 appl TOPICAL DAILY [facility]; Protocol Last Admin: 06/01/22 08:30 Dose: 1 appl Documented By: LUCIANA Labs CBC & Chem 7: 06/01/22 06:42 06/01/22 06:42 Labs: Laboratory Results - last 24 hr 05/26/22 06/01/22 06/01/22 20:09 11:55 16:09 POC Glucose 239 H 137 H Crossmatch (AHG) See Detail 06/01/22 06/02/22 06/02/22 20:20 00:12 05:57 POC Glucose 163 H 152 H 107 Crossmatch (AHG) Assessment and Plan (1) Stage II pressure ulcer of sacral region: Status: Acute Plan This is a 62-year-old male with a history of PAD, CAD, PAF on Xarelto, HFrEF, ICM, DM with multiple amputations, HTN, HLD who initially presented to the ED 05/26 after not eating or getting out of bed for 2 weeks due to the recent of his mother and was initially admitted to the ICU due to metabolic acidosis, ANDRÉS, anemia and hypovolemic shock requiring pressors downgraded to the medical floor 05/28 Hypokalemia/hypomagnesemia potassium improved declining kphos follow BMP Hypovolemic shock Thought to be secondary to severe hypovolemia with underlying severe ischemic cardiomyopathy and lack of compensatory cardiovascular reserve Imaging showing possible diverticulitis versus colitis but No significant diarrhea while in ICU, was not felt to represent sepsis Leukocytosis resolved. Started on zosyn 05/28, will continue 5 day course to end 06/02 Anemia with heme + stools no overt bleeding noted Seen by GI- s/p EGD/colo 05/29 - s/p gastric and colon polypypectomy - follow biopsy results po PPI Xarelto on hold - GI recommend to hold Asa, and xarelto for 1 week given multiple polypectomies H/H has remained stable Stage II sacralcoccygeal pressure ulcer Seen by wound care Continue local wound care Depression started on sertraline and provigil in ICU seen by psych - continue for now, will not likely d/c with provigil PAF amiodarone held in ICU. In NSR resume Coreg xarelto on hold for anemia. can resume 06/05 CAD aspirin on hold for anemia - can resume 06/05 coreg on hold initially for hypotension, resumed DM SS HTN valsartan on hold continue coreg BP improving will resume meds as BP allows HFrEF Last echo 03/2021 showed:? Moderately dilated LV with severe LV systolic dysfunction with EF of 20-25% with grade 2 diastolic dysfunction with underlying RWMAs; moderately dilated LA; [id number] mitral regurgitation Lasix resumed aldactone on hold monitor fluid status closely Thrombocytopenia Related to acute illness Follow CBC HLD Resume Gemfibrozil Moderate protein calorie malnutrition Stopped TPN diet resumed ANDRÉS. Secondary to hypovolemia - resolved Metabolic acidosis. Secondary to ANDRÉS- resolved Hyponatremia. Secondary to hypovolemia- resolved DVT ppx - xrelto on hold for anemia Attending - Dr. Barillas Patient requires ongoing inpatient hospitalization for management and workup of anemia, TPN stopped, monitoring oral intake and labs Quality Stroke Does the patient have a stroke diagnosis?: No VTE Prior VTE?: No VTE Risk Level:: Medical - moderate - high VTE Device Contraindication: N/A - Device Ordered VTE Drug Contraindication: Treatment Not Indicated
[2022-06-02 09:17] LABS: Anion Gap 13 (12-20); Blood Urea Nitrogen 17 mg/dL (9-16); Calcium 7.9 mg/dL (8.4-10.2); Carbon Dioxide 29 mmol/L (22-29); Chloride 100 mmol/L (96-108); Creatinine Clr Calc Pharmacy 130.9; Estimated Glomerular Filt Rate > 60; Glucose Random 124 mg/dL (60-115); Potassium 3.9 mmol/L (3.3-5.1); Sodium 138 mmol/L (135-145)
[2022-06-02] MEDS: modafiniL 100 MG TABLET 200 MG PO (10:23)
[2022-06-02] MEDS: carvediloL 6.25 MG TABLET PO ×2 (10:23→19:47)
[2022-06-02] MEDS: Furosemide 40 MG TABLET PO ×2 (10:23→17:32)
[2022-06-02] MEDS: gemfibroziL 600 MG TABLET PO ×2 (10:23→19:47)
[2022-06-02] MEDS: Sertraline HCL 25 MG TABLET PO (10:23)
[2022-06-02 11:34] LABS: Glucose, Whole Blood 151 mg/dL (60-115)
[2022-06-02 16:58] LABS: Glucose, Whole Blood 146 mg/dL (60-115)
[2022-06-02 23:45] LABS: Glucose, Whole Blood 136 mg/dL (60-115)
[2022-06-03] VITALS (10 sets, daily range): BP systolic 110–147; BP diastolic 58–68; PULSE 67–73; RESP 16–20; TEMP 36.1–37; O2SAT 93–98; BMI 23.5
[2022-06-03] MEDS: HYDROmorphone HCl 0.5 MG/0.5 ML SYRINGE IVPUSH ×5 (04:34→22:22)
[2022-06-03 06:18] LABS: Glucose, Whole Blood 121 mg/dL (60-115)
[2022-06-03] MEDS: Metoclopramide HCl 10 MG/2 ML VIAL IVPUSH ×2 (06:30→17:37)
[2022-06-03] MEDS: Omeprazole 20 MG CAPSULE.DR PO ×2 (06:30→17:37)
[2022-06-03 07:38] LABS: Glucose, Whole Blood 113 mg/dL (60-115)
[2022-06-03] MEDS: modafiniL 100 MG TABLET 200 MG PO (08:57)
[2022-06-03] MEDS: gemfibroziL 600 MG TABLET PO ×2 (08:57→20:31)
[2022-06-03] MEDS: Sertraline HCL 25 MG TABLET PO (08:58)
[2022-06-03] MEDS: carvediloL 6.25 MG TABLET PO ×2 (08:58→20:31)
[2022-06-03] MEDS: Furosemide 40 MG TABLET PO ×2 (08:58→17:37)
[2022-06-03 11:36] LABS: Glucose, Whole Blood 147 mg/dL (60-115)
--- NOTE | 2022-06-03 12:24 | MHC.CLN ---
F/U PO INTAKE 100% X 2 MEALS DIET RX: 2000DM-RECOMMEND 2200DM DIET R/T INCREASED NUTRITION NEEDS SECONDARY TO PRESSURE INJURIES AND MODERATE MALNUTRITION PT REFUSES NUTRITION SUPPLEMENT AT THIS TIME. CONTINUE TO MONITOR PO INTAKE CLOSELY
[2022-06-03] MEDS: Zinc Oxide 20% Ointment 28.35 GM TUBE 1 APPL TOPICAL (12:49)
--- NOTE | 2022-06-03 13:34 | MHC.CM.PN ---
per rounds pt will be ready for dc met with pt who is now considering snf vs home with with help imm updated referrals made to both [facility] and [facility] pt wants to speak with family
--- NOTE | 2022-06-03 14:59 | HO.PM.IMPN ---
Subjective Subjective Date of Service: 06/03/22 Interval History: Complaining of generalized weakness and was denies nausea, vomiting, abdominal pain, or diarrhea, no other acute issues overnight, Review of Systems Review of Systems: Yes all other systems are reviewed and are negative Physical Exam Vital Signs: Vital Signs: Last Vital Signs Temp 97.1 F 06/03/22 11:00 Pulse 72 06/03/22 13:57 Resp 20 06/03/22 11:00 BP 132/68 06/03/22 13:57 Pulse Ox 97 06/03/22 13:57 O2 Del Method 06/03/22 11:00 O2 Flow Rate 1 05/28/22 13:00 BMI result Body Mass Index 23.5 Const: Other: General awake alert ,no acute distress. Neck is supple no JVD. CVS regular rate rhythm, Respiratory lungs clear to auscultation, no respiratory distress, no wheeze, no rhonchi. Gastrointestinal abdomen soft, nontender, bowel sounds audible, no guarding , no rigidity. Extremities left BKA and right TMA Neuro nonfocal , speech clear. Psych appropriate affect Skin no rash Objective Data Active Medications Carvedilol (Carvedilol 6.25 Mg Tablet) 6.25 mg PO BID [facility]; Protocol Last Admin: 06/03/22 08:58 Dose: 6.25 mg Documented By: RUI Furosemide (Furosemide 40 Mg Tablet) 40 mg PO BID@0800,1700 [facility]; Protocol Last Admin: 06/03/22 08:58 Dose: 40 mg Documented By: RUI Gemfibrozil (Gemfibrozil 600 Mg Tablet) 600 mg PO BID [facility] Last Admin: 06/03/22 08:57 Dose: 600 mg Documented By: RUI Hydromorphone HCl (Hydromorphone Hcl 0.5 Mg/0.5 Ml Syringe) 0.5 mg IVPUSH Q4H PRN; Protocol PRN Reason: Pain, Severe (Pain Scale 7-10) Last Admin: 06/03/22 14:04 Dose: 0.5 mg Documented By: RUI Insulin Human Lispro (Insulin Lispro 100 Unit/Ml 3 Ml Vial) 0 unit SUBCUT Q6H [facility]; Protocol Last Admin: 06/03/22 11:40 Dose: Not Given Documented By: RUI Non-Admin Reason: No Insulin Coverage Metoclopramide HCl (Metoclopramide Hcl 10 Mg/2 Ml Vial) 10 mg IVPUSH Q12H [facility] Last Admin: 06/03/22 06:30 Dose: 10 mg Documented By: MARIPOSA Modafinil (Modafinil 100 Mg Tablet) 200 mg PO DAILY [facility] Last Admin: 06/03/22 08:57 Dose: 200 mg Documented By: RUI Omeprazole (Omeprazole 20 Mg Capsule.) 20 mg PO BID@0630,1630 [facility] Last Admin: 06/03/22 06:30 Dose: 20 mg Documented By: MARIPOSA Ondansetron HCl (Ondansetron Hcl 4 Mg/2 Ml Vial) 4 mg IVPUSH Q8H PRN PRN Reason: Nausea Last Admin: 05/29/22 00:30 Dose: 4 mg Documented By: CINTHYA Comments: Confirmed with MD aleman to give med early Pharmacy Consult (Consult Rx Perform Med Rec) 1 each MISCELLANE ONCE PRN PRN Reason: Consult order Sertraline HCl (Sertraline Hcl 25 Mg Tablet) 25 mg PO DAILY [facility] Last Admin: 06/03/22 08:58 Dose: 25 mg Documented By: RUI Zinc Oxide (Zinc Oxide 20% Ointment 28.35 Gm Tube) 1 appl TOPICAL DAILY [facility]; Protocol Last Admin: 06/03/22 12:49 Dose: 1 appl Documented By: RUI Labs CBC & Chem 7: 06/01/22 06:42 06/02/22 08:01 Labs: Laboratory Results - last 24 hr 06/02/22 06/02/22 06/03/22 16:24 23:40 06:14 POC Glucose 146 H 136 H 121 H 06/03/22 06/03/22 07:17 10:58 POC Glucose 113 147 H Assessment and Plan (1) Stage II pressure ulcer of sacral region: Status: Acute Plan This is a 62-year-old male with a history of PAD, CAD, PAF on Xarelto, HFrEF, ICM, DM with multiple amputations, HTN, HLD who initially presented to the ED 05/26 after not eating or getting out of bed for 2 weeks due to the recent of his mother and was initially admitted to the ICU due to metabolic acidosis, ANDRÉS, anemia and hypovolemic shock requiring pressors downgraded to the medical floor 05/28 Hypokalemia/hypomagnesemia Repleted, follow labs Hypovolemic shock Thought to be secondary to severe hypovolemia with underlying severe ischemic cardiomyopathy and lack of compensatory cardiovascular reserve Imaging showing possible diverticulitis versus colitis but No significant diarrhea while in ICU, was not felt to represent sepsis Leukocytosis resolved. Finished 5 day course of Zosyn Anemia with heme + stools no overt bleeding noted Seen by GI- s/p EGD/colo 05/29 - s/p gastric and colon polypypectomy - biopsy pending Continue po PPI , GI recommend to hold Asa, and xarelto for 1 week given multiple polypectomies , will resume on 06/05 H/H has remained stable Stage II sacralcoccygeal pressure ulcer Seen by wound care Continue local wound care Depression started on sertraline and provigil in ICU, will DC Provigil seen by psych - continue sertraline PAF amiodarone held in ICU. In NSR, continue Coreg xarelto on hold for anemia. can resume 06/05 CAD aspirin on hold for anemia - will resume on 06/05, no chest pain continue coreg DM Blood sugars stable 147 continue insulin sliding scale HTN BP stable continue Coreg, continue to hold valsartan HFrEF Last echo 03/2021 showed:? Moderately dilated LV with severe LV systolic dysfunction with EF of 20-25% with grade 2 diastolic dysfunction with underlying RWMAs; moderately dilated LA; [id number] mitral regurgitation Lasix resumed, will resume low-dose valsartan BP allows aldactone on hold monitor fluid status closely Thrombocytopenia Related to acute illness, platelets remains stable Follow CBC HLD On Gemfibrozil Moderate protein calorie malnutrition s/p TPN, tolerating diet ANDRÉS. Secondary to hypovolemia - resolved Metabolic acidosis. Secondary to ANDRÉS- resolved Hyponatremia. Secondary to hypovolemia- resolved DVT ppx - xrelto on hold for anemia, on compression therapy Patient requires ongoing inpatient hospitalization for persistent generalized weakness , monitoring of blood pressure , social worker masters arranging for safe discharge, PT recommend short-term rehab versus home with PT Quality Stroke Does the patient have a stroke diagnosis?: No VTE Prior VTE?: No VTE Risk Level:: Medical - moderate - high VTE Device Contraindication: N/A - Device Ordered VTE Drug Contraindication: Treatment Not Indicated
[2022-06-03 16:27] LABS: Glucose, Whole Blood 120 mg/dL (60-115)
[2022-06-03 20:50] LABS: Glucose, Whole Blood 108 mg/dL (60-115)
[2022-06-04] VITALS (9 sets, daily range): BP systolic 119–138; BP diastolic 59–68; PULSE 70–74; RESP 16–18; TEMP 36.3–37.1; O2SAT 93–97; BMI 23.5
[2022-06-04] MEDS: HYDROmorphone HCl 0.5 MG/0.5 ML SYRINGE IVPUSH ×2 (02:18→06:39)
[2022-06-04] MEDS: Metoclopramide HCl 10 MG/2 ML VIAL IVPUSH ×2 (06:39→20:16)
[2022-06-04] MEDS: Omeprazole 20 MG CAPSULE.DR PO ×2 (06:39→16:27)
[2022-06-04 07:25] LABS: Glucose, Whole Blood 135 mg/dL (60-115)
[2022-06-04] MEDS: Zinc Oxide 20% Ointment 28.35 GM TUBE 1 APPL TOPICAL (10:35)
[2022-06-04] MEDS: Sertraline HCL 25 MG TABLET PO (10:35)
[2022-06-04] MEDS: gemfibroziL 600 MG TABLET PO ×2 (10:36→20:30)
[2022-06-04] MEDS: carvediloL 6.25 MG TABLET PO ×2 (10:36→20:30)
[2022-06-04] MEDS: Furosemide 40 MG TABLET PO ×2 (10:36→16:27)
[2022-06-04 11:02] LABS: Glucose, Whole Blood 136 mg/dL (60-115)
--- NOTE | 2022-06-04 14:25 | HO.PM.IMPN ---
Subjective Subjective Date of Service: 06/04/22 Interval History: Complaining of bilateral leg pain, seen by Physical therapy they recommend short-term rehab due to decreased strength, generalized deconditioning and increased risk of fall, patient denies lightheadedness dizziness no fevers no chills tolerating diet no nausea no vomiting no other acute issues overnight. Review of Systems Review of Systems: Yes all other systems are reviewed and are negative Physical Exam Vital Signs: Vital Signs: Last Vital Signs Temp 97.5 F 06/04/22 11:40 Pulse 70 06/04/22 11:40 Resp 18 06/04/22 11:40 BP 138/68 06/04/22 11:40 Pulse Ox 95 06/04/22 11:40 O2 Del Method 06/04/22 11:40 O2 Flow Rate 1 05/28/22 13:00 BMI result Body Mass Index 23.5 Const: Other: General awake alert ,no acute distress.? Neck supple no JVD. CVS? regular rate rhythm, Respiratory lungs clear to auscultation, no respiratory distress, no wheeze, no rhonchi. Gastrointestinal abdomen soft, nontender, bowel sounds audible, no guarding , no rigidity. Extremities left BKA and right TMA Neuro nonfocal , speech clear. Psych appropriate affect Skin no rash, dry scab on forehead/rt.knee Objective Data Active Medications Acetaminophen (Acetaminophen 325 Mg Tablet) 650 mg PO Q6H PRN PRN Reason: Pain, Mild (Pain Scale 1-3) Carvedilol (Carvedilol 6.25 Mg Tablet) 6.25 mg PO BID [facility]; Protocol Last Admin: 06/04/22 10:36 Dose: 6.25 mg Documented By: RAFIA Furosemide (Furosemide 40 Mg Tablet) 40 mg PO BID@0800,1700 [facility]; Protocol Last Admin: 06/04/22 10:36 Dose: 40 mg Documented By: RAFIA Gemfibrozil (Gemfibrozil 600 Mg Tablet) 600 mg PO BID [facility] Last Admin: 06/04/22 10:36 Dose: 600 mg Documented By: RAFIA Insulin Human Lispro (Insulin Lispro 100 Unit/Ml 3 Ml Vial) 0 unit SUBCUT Q6H [facility]; Protocol Last Admin: 06/04/22 11:06 Dose: Not Given Documented By: RAFIA Non-Admin Reason: No Insulin Coverage Metoclopramide HCl (Metoclopramide Hcl 10 Mg/2 Ml Vial) 10 mg IVPUSH Q12H [facility] Last Admin: 06/04/22 06:39 Dose: 10 mg Documented By: MAHESH Omeprazole (Omeprazole 20 Mg Capsule.) 20 mg PO BID@0630,1630 [facility] Last Admin: 06/04/22 06:39 Dose: 20 mg Documented By: MAHESH Ondansetron HCl (Ondansetron Hcl 4 Mg/2 Ml Vial) 4 mg IVPUSH Q8H PRN PRN Reason: Nausea Last Admin: 05/29/22 00:30 Dose: 4 mg Documented By: CINTHYA Comments: Confirmed with MD aleman to give med early Pharmacy Consult (Consult Rx Perform Med Rec) 1 each MISCELLANE ONCE PRN PRN Reason: Consult order Sertraline HCl (Sertraline Hcl 25 Mg Tablet) 25 mg PO DAILY [facility] Last Admin: 06/04/22 10:35 Dose: 25 mg Documented By: RAFIA Zinc Oxide (Zinc Oxide 20% Ointment 28.35 Gm Tube) 1 appl TOPICAL DAILY [facility]; Protocol Last Admin: 06/04/22 10:35 Dose: 1 appl Documented By: RAFIA Labs CBC & Chem 7: 06/01/22 06:42 06/02/22 08:01 Labs: Laboratory Results - last 24 hr 06/03/22 06/03/22 06/04/22 16:23 20:46 07:19 POC Glucose 120 H 108 135 H 06/04/22 10:54 POC Glucose 136 H Assessment and Plan (1) Stage II pressure ulcer of sacral region: Status: Acute Plan This is a 62-year-old male with a history of PAD, CAD, PAF on Xarelto, HFrEF, ICM, DM with multiple amputations, HTN, HLD who initially presented to the ED 05/26 after not eating or getting out of bed for 2 weeks due to the recent of his mother and was initially admitted to the ICU due to metabolic acidosis, ANDRÉS, anemia and hypovolemic shock requiring pressors downgraded to the medical floor 05/28 Generalized weakness bilateral leg pain Patient seen by physical therapy they recommend short-term rehab, will place on oxycodone q.6 hours as needed for pain. Hypokalemia/hypomagnesemia Normalized. Hypovolemic shock BP normalized and remained stable Thought to be secondary to severe hypovolemia with underlying severe ischemic cardiomyopathy and lack of compensatory cardiovascular reserve Imaging showing possible diverticulitis versus colitis but No significant diarrhea while in ICU, was not felt to represent sepsis Leukocytosis resolved. Finished 5 day course of Zosyn Anemia with heme + stools no overt bleeding noted Seen by GI- s/p EGD/colo 05/29 - s/p gastric and colon polypypectomy - biopsy pending Continue po PPI , GI recommend to hold Asa, and xarelto for 1 week given multiple polypectomies , will resume on 06/05 H/H has remained stable Stage II sacralcoccygeal pressure ulcer Seen by wound care Continue local wound care Depression started on sertraline 25 mg by mouth daily, Provigil discontinued PAF amiodarone held in ICU. In NSR, continue Coreg, continue to hold amiodarone xarelto on hold for anemia. Will resume 06/05 CAD aspirin on hold for anemia - will resume on 06/05, no chest pain continue coreg DM Blood sugars stable 147 continue insulin sliding scale HTN BP stable continue Coreg, continue to hold valsartan HFrEF Last echo 03/2021 showed:? Moderately dilated LV with severe LV systolic dysfunction with EF of 20-25% with grade 2 diastolic dysfunction with underlying RWMAs; moderately dilated LA; [id number] mitral regurgitation Lasix resumed, will resume low-dose valsartan if BP allows aldactone on hold monitor fluid status closely Thrombocytopenia Related to acute illness, platelets remains stable Follow CBC HLD On Gemfibrozil Moderate protein calorie malnutrition s/p TPN, tolerating diet ANDRÉS. Secondary to hypovolemia - resolved Metabolic acidosis. Secondary to ANDRÉS- resolved Hyponatremia. 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
[2022-06-04] MEDS: oxyCODONE HCl Immed Release 5 MG TABLET PO ×2 (14:43→20:18)
[2022-06-04 16:08] LABS: Glucose, Whole Blood 139 mg/dL (60-115)
[2022-06-04] MEDS: Loperamide HCl 2 MG CAPSULE 4 MG PO (17:10)
[2022-06-04 20:38] LABS: Glucose, Whole Blood 192 mg/dL (60-115)
[2022-06-05] VITALS: BP 122/61; PULSE 70; RESP 17; TEMP 36.1; O2SAT 96
[2022-06-05 00:02] LABS: Glucose, Whole Blood 124 mg/dL (60-115)
[2022-06-05 04:00] VITALS: BP 127/58; PULSE 68; RESP 18; TEMP 36.4; O2SAT 96
[2022-06-05] MEDS: Omeprazole 20 MG CAPSULE.DR PO (05:57)
[2022-06-05 06:00] VITALS: BMI 23.8
[2022-06-05 06:05] LABS: Glucose, Whole Blood 129 mg/dL (60-115)
[2022-06-05 07:36] LABS: Glucose, Whole Blood 126 mg/dL (60-115)
[2022-06-05 07:59] VITALS: BP 135/64; PULSE 66; RESP 16; TEMP 36.7; O2SAT 99
[2022-06-05] MEDS: Zinc Oxide 20% Ointment 28.35 GM TUBE 1 APPL TOPICAL (08:31)
[2022-06-05] MEDS: Sertraline HCL 25 MG TABLET PO (08:31)
[2022-06-05] MEDS: Furosemide 40 MG TABLET PO (08:31)
[2022-06-05] MEDS: carvediloL 6.25 MG TABLET PO (08:31)
[2022-06-05] MEDS: gemfibroziL 600 MG TABLET PO (08:31)
[2022-06-05] MEDS: Metoclopramide HCl 10 MG/2 ML VIAL IVPUSH (08:31)
[2022-06-05 10:14] VITALS: BP 135/64; PULSE 66; O2SAT 99
--- NOTE | 2022-06-05 10:49 | MHC.CLN ---
F/U PO INTAKE 75-100% DIET RX: 2200DM-APPROPRIATE PT REFUSES TO DRINK SUPPLEMENT PT WITH INCREASED NUTRITION RISK R/T PRESSURE INJURY MONITOR PO INTAKE CLOSELY
[2022-06-05 11:13] LABS: Glucose, Whole Blood 145 mg/dL (60-115)
--- NOTE | 2022-06-05 11:21 | MHC.CM.PN ---
Addendum entered by Joanne Mercer 06/05/22 15:12: COVID RESULTS AND DC SUMMARY SENT TO SNF VIA [facility] Addendum entered by Joanne Mercer 06/05/22 13:10: PT WILL DC TO STR AT [facility] TODAY VIA [facility] PENDING A NEGATIVE PCR COVID RESULT AND LESS THAT 30 DAY ORDER IN DC SUMMARY Original Note: ESTER MET WITH PT MULTIPLE TIMES YESTERDAY T O DISCUSS DC PLANS PT REPORTS HE IS AGREEABLE TO STR HOWEVER DOES NOT WANT TO GO TO A CORRECTION CM EXPLAINED THAT ALL STR'S ARE INSIDE OF MD'S BUT SOME HAVE SEPARATE UNITS HE REPORTS HE HAS HAD SEVERAL BAD EXPERIENCES AT THAT TIME, ONLY [facility] WAS OFFERING AND PT DECLINED CM MET WITH PT TODAY AND INFORMED HIM [facility] IS OFFERING A BED HE REPORTS HE SPOKE WITH A LIAISON FROM THERE YESTERDAY AND IS GOING TO ACCEPT THE BED OFFER HE REPORTS HIS BROTHER IS THERE TOURING IT NOW HE SAYS HE IS WILING TO GO TODAY SO THAT HE DOES NOT LOSE THE BED HOSPITALIST INFORMED PT REPORTS HIS BROTHER WILL TRANSPORT
[2022-06-05 12:00] VITALS: BP 96/50; PULSE 72; RESP 18; TEMP 36.7; O2SAT 97
--- NOTE | 2022-06-05 13:26 | P.DS_ITS ---
DS: Providers Provider Date of Service: 06/05/22 Date of admission: 05/26/22 17:46 Primary care physician: Connor Mcdaniel MD Consults: 05/26/22 21:37 Consult to Wound Care Routine Consulting Provider: Jazzmine Martinez Reason for consultation: Stage 2 to 3 sacral pressure ulcer Has provider been notified: Yes 05/26/22 21:38 Consult to Gastroenterology Routine Consulting Provider: Sushil Wilder Reason for consultation: GIB ? source Has provider been notified: Yes 05/27/22 12:33 Consult to Gastroenterology Routine Consulting Provider: Sushil Wilder Reason for consultation: N/V, ? diverticulitis Has provider been notified: Yes 05/28/22 10:02 Consult to Psychiatry Routine Consulting Provider: Psych Covering Reason for consultation: Depression Has provider been notified: No DS: Diagnosis Discharge Diagnosis (1) Stage II pressure ulcer of sacral region: Status: Acute DS: Summary Hospital Course Hospital Course: Chief Complaint: I could not keep anything down? Patient is a 62-year-old male with underlying history of peripheral arterial disease, coronary artery disease status post cardiac catheterization on February; paroxysmal atrial fibrillation on Xarelto, systolic CHF with reduced ejection fraction, ischemic cardiomyopathy, appendectomy and peritonitis which have caused a variety of complications requiring at least 5 surgical interventions and 8 months of hospitalization in the past 2 years, transmetatarsal amputation of bilateral feet due to diabetes back in 2007, left BKA in 2016, diabetes, hypertension, hyperlipidemia, GERD, insomnia among others. ? Patient has been grieving the of his mother 2 weeks ago and since then he has felt significantly sad not wanting to eat or drink and lying in bed all the time, finally today he call 911 after feeling so weak and tired for the past week or so given that he has not been able to eat or drink anything even when he tried to drink water, within half an hour he will be vomiting, he has had a few episodes of diarrhea but not on the hour, denied abdominal pain. ? In the ER, his workup revealed blood pressure of 85/43, heart rate 67, respirations 18, O2 sat 97% on room air, temperature 96.6 degrees F, white count of 24.1, H&H of 8.9 and 24.9 respectively but baseline from about 10 months ago shows his H&H was 11.2 and 35.8); currently his H&H is 7.9 and 21.5 respe ctively, platelets 128, on admission sodium 126, carbon dioxide 9, anion gap 24, BUN 163, creatinine 3.74, calcium 6.8, urinalysis negative salicylates less than 5, Tylenol less than 1, negative for acetone and blood content ethyl alcohol.? His blood gas revealed a pH of 7.17, pCO2 21, PO2 124, HC03 of 8.? Chest x-ray shows no acute pulmonary disease.? CT of the abdomen pelvis without contrast rev ealed diverticulosis with possible diverticulitis versus colitis given the mild bowel wall thickening of the distal left colon and sigmoid colon; possible wall thickening of proximal stomach. ?Central line was placed on the right neck, the patient was given several L of IV fluids, started on Levaquin and Flagyl and placed on pressors given that despite of the IV fluid administration his blood pressure with no, up, he also received a couple amps of bicarbonate. ? During my evaluationthe patient states that he still feels ?lousy? tire and nauseous, denies abdominal pain, no chest pain, shortness of breath, cough or sputum production, reports intermittent episodes of diarrhea but nothing that he would call significant, denies melena or hematochezia has never had a GI bleed in the past, no hematemesis.? Admits having intermittent headache and lightheadedness but no true dizziness, denies any visual disturbance says, problems swallowing but he was unable to keep water down for disease would produce vomit.? Currently he states he just wants to get some good night sleep. ?He does admit to having a mechanical fall at home landing forward and hitting his head without loss of consciousness approximately 1 week ago, denies any neck pain, paresthesias of the upper, lower extremities or any weakness. Hospital course 62-year-old male with a history of PAD, CAD, PAF on Xarelto, HFrEF, ICM, DM with multiple amputations, HTN, HLD who initially presented to the ED 05/26 after not eating or getting out of bed for 2 weeks due to the recent of his mother and was initially admitted to the ICU due to metabolic acidosis, ANDRÉS, anemia and hypovolemic shock requiring pressors downgraded to the medical floor 05/28 In the ICU patient admitted with a diagnosis of hypovolemic shock treated with IV fluids as well as pressors all antihypertensives and diuretics were held, hypovolemia was felt to be related to severe ischemic cardiomyopathy and left with compensatory cardiovascular reserve, with poor by mouth intake, imaging study showed possible diverticulitis versus colitis patient had no significant diarrhea there was no evidence of sepsis, patient was treated with 5 day course of IV antibiotics, since patient blood pressure improved all antihypertensives and diuretics have been gradually resumed patient continued to have generalized weakness and leg discomfort therefore seen by Physical therapy and they are recommending short-term rehab in regard to pain he kidney continued on Tylenol Acute renal failure with acidosis and multiple electrolyte abnormalities including Hypokalemia/hypomagnesemia/hyponatremia patient treated aggressively with IV fluids renal function normalized electrolytes repleted currently within normal range. In regard to Anemia with heme + stools, patient underwent upper endoscopy and colonoscopy on May 29 underwent gastric and colon polypectomy, gastric polyp showed hyperplastic mucosa with mild chronic inactive inflammation no Helico bacter organisms seen, colon polyps showed tubular adenoma negative for high- grade dysplasia, 2nd polyp showed tubulovillous adenoma negative for high-grade dysplasia and the 3rd polyp showed tubular adenoma as well, Xarelto was held for 1 week and now resumed. Stage II sacralcoccygeal pressure ulcer continue local wound care frequent position change and high-protein. Depression due to recent of mother patient seen by psych and has been started on Zoloft 25 mg by mouth daily. History of paroxysmally Brill fibrillation patient has been continued on Coreg amiodarone and Xarelto recommend outpatient follow-up with Dr. Mullins from Cardiology. CAD no chest pain continue Coreg and gemfibrozil. DM not on medications continue diabetic diet. HTN initially noted to have hypotension therefore all blood pressure meds were held now gradually resume all home medication except dose of valsartan reduced to 40 mg daily. HFrEF Last echo 03/2021 showed:? Moderately dilated LV with severe LV systolic dysfunction with EF of 20-25% with grade 2 diastolic dysfunction with underlying RWMAs; moderately dilated LA; aqcy-[id number] mitral regurgitation Patient noted to have no acute heart failure continue home medication. Thrombocytopenia Related to acute illness, platelets count improved and remained stable Moderate protein calorie malnutrition take high-protein supplement Time Spent with Patient Time attestation: Total time spent providing and/or coordinating discharge services: Discharge coordination time: Greater than 30 minutes Quality: Safe Use of Opioids Does Pt have an Active Cancer Diagnosis on the Problem List?: No Quality: Stroke Does the patient have a stroke diagnosis?: No Physical Exam Vital Signs: Vital Signs: Last Vital Signs Temp 98.0 F 06/05/22 12:00 Pulse 72 06/05/22 12:00 Resp 18 06/05/22 12:00 BP 96/50 L 06/05/22 12:00 Pulse Ox 97 06/05/22 12:00 O2 Del Method 06/05/22 12:00 O2 Flow Rate 1 05/28/22 13:00 BMI result Body Mass Index 23.8 Const: Other: General awake alert ,no acute distress.? Neck? supple no JVD. CVS? regular rate rhythm, Respiratory lungs clear to auscultation, no respiratory distress, no wheeze, no rhonchi. Gastrointestinal abdomen soft, nontender, bowel sounds audible, no guarding , no rigidity. Extremities left BKA and right TMA Neuro nonfocal , speech clear. Psych appropriate affect Skin no rash, dry scab on forehead/rt.knee DS: Data Data Completed and Pending Completed studies during hospitalization [Text1]: Pending at discharge 05/29/22 15:35 Surgical [PTH] Routine Procedures Drainage of Abdomen Subcutaneous Tissue and Fascia, Open Approach (07/03/21) Drainage of Abdominal Wall with Drainage Device, Percutaneous Approach (05/26/21) Drainage of Retroperitoneum with Drainage Device, Percutaneous Approach (12/22/20) Drainage of Retroperitoneum, Percutaneous Endoscopic Approach (12/22/20) Drainage of Right Abdomen Muscle, Open Approach (05/26/21) Irrigation of Peritoneal Cavity using Irrigating Substance, Percutaneous Approach (05/26/21) Labs on day of discharge: Laboratory Results - last 24 hr 06/04/22 06/04/22 06/04/22 16:03 20:34 23:59 POC Glucose 139 H 192 H 124 H 06/05/22 06/05/22 06/05/22 05:59 07:33 11:09 POC Glucose 129 H 126 H 145 H Discharge Plan Discharge Patient Disposition: [facility] Discharge Diagnosis: Hypovolemic shock Acute kidney injury Hypokalemia Hypomagnesemia Anemia Depression Moderate protein calorie malnutrition Referrals: [facility] [Outside] - 1 Week Connor Mcdaniel MD [Primary Care Provider] - 1 Week Discharge Medications: New sertraline 25 mg Tablet 25 mg PO DAILY Qty: 30 0RF valsartan 40 mg tablet 40 mg PO DAILY Qty: 30 0RF Continued carvedilol 6.25 mg Tablet 6.25 mg PO BID Qty: 60 0RF Protocol: Hold for SBP/HR < HOLD for SBP < : 90 HOLD for HR < : 60 amiodarone 200 mg tablet 200 mg PO DAILY omeprazole 20 mg capsule,delayed release(DR/EC) 1 cap PO BID Xarelto 20 mg tablet 20 mg PO DAILY gemfibrozil 600 mg Tablet 600 mg PO BID spironolactone 25 mg tablet 25 mg PO DAILY Protocol: Hold for SBP< HOLD for SBP < : 90 furosemide 40 mg tablet 40 mg PO BID zolpidem 10 mg tablet 10 mg PO BEDTIME PRN (Reason: Sleep) multivitamin Tablet 1 tab PO DAILY Discontinued valsartan 80 mg tablet 80 mg PO DAILY aspirin [Adult Low Dose Aspirin] 81 mg tablet,delayed release (DR/EC) 81 mg PO DAILY Discharge Orders: Discharge Order (Routine); Ordered 06/05/22 Ordered By: Hemanth Freedman Diet: Diabetic diet Activity on Discharge: As tolerated Stand Alone Forms: Patient Portal Discharge page Care Plan Goals: Hypovolemic shock/electrolyte abnormalities, heme-positive stools with , recommend to continue home medications as before, finished course of antibiotic for concern for colitis, upper endoscopy and colonoscopy showed gastric and colon polyp status post polypectomy continue PPI resume Xarelto,. Stop aspirin For depression has been started on Zoloft 25 mg daily Continue home medications for coronary artery disease, in regard to diabetes continue diabetic diet and monitor blood sugars Being discharged to rehab facility for less than 30 days as per PT recommendation Health Concerns: Take all medications as prescribed Plan of Treatment: Outpatient follow-up with primary care physician, and [employer] worker Dr. Mejia Assessment: As per discharge summary
[2022-06-05 15:01] LABS: Influenza A PCR NEGATIVE (Negative); Influenza B PCR NEGATIVE (Negative); Resp Syncy Virus RNA Qual PCR NEGATIVE (Negative); SARS COV2 PCR INHOUSE NEGATIVE (Negative)
== END 2022-06-05 15:40 | disposition skilled nursing facility (03) | DRG 682 ==
LOC: HO.ED 15:40 → HO.EDOVER 18:00 → HO.ICU 18:05 → HO.IMC 05-28 16:32
PROVIDERS: Internal Medicine Gastroenterology; Nurse Practitioner Acute Care; Physician Assistant Medical; Admitting Provider Anesthesiology; Emergency Provider Emergency Medicine; PCP Internal Medicine; Visit Provider Hospitalist
PROC: 0DB78ZX Excision of Stomach, Pylorus, Via Natural or Artificial Opening Endoscopic, Diagnostic (ICD-10-PCS; principal; 2022-05-29 14:20)
DX: N17.9 Acute kidney failure, unspecified (principal); K57.33 Diverticulitis of large intestine without perforation or abscess with bleeding; R57.1 Hypovolemic shock; E44.0 Moderate protein-calorie malnutrition; D62 Acute posthemorrhagic anemia; E87.2 Acidosis; E87.1 Hypo-osmolality and hyponatremia; F32.0 Major depressive disorder, single episode, mild; I50.22 Chronic systolic (congestive) heart failure; L89.152 Pressure ulcer of sacral region, stage 2; I48.0 Paroxysmal atrial fibrillation; I25.5 Ischemic cardiomyopathy; E87.6 Hypokalemia; E11.51 Type 2 diabetes mellitus with diabetic peripheral angiopathy without gangrene; E83.42 Hypomagnesemia; K21.9 Gastro-esophageal reflux disease without esophagitis; G47.00 Insomnia, unspecified; I11.0 Hypertensive heart disease with heart failure; I25.10 Atherosclerotic heart disease of native coronary artery without angina pectoris; E78.5 Hyperlipidemia, unspecified; D69.6 Thrombocytopenia, unspecified; K63.5 Polyp of colon; K31.7 Polyp of stomach and duodenum; E86.0 Dehydration; E86.1 Hypovolemia; I34.0 Nonrheumatic mitral (valve) insufficiency; E11.65 Type 2 diabetes mellitus with hyperglycemia; Z68.23 Body mass index [BMI] 23.0-23.9, adult; Z20.822 Contact with and (suspected) exposure to COVID-19; Z89.512 Acquired absence of left leg below knee; Z86.73 Personal history of transient ischemic attack (TIA), and cerebral infarction without residual deficits; Z87.891 Personal history of nicotine dependence; Z88.1 Allergy status to other antibiotic agents; Z79.01 Long term (current) use of anticoagulants; Z79.82 Long term (current) use of aspirin; Z79.899 Other long term (current) drug therapy
CPT/HCPCS: 0241U; 36415; 71045; 74176; 80048; 80053; 80076; 80143; 80179; 81001; 81003; 82040; 82077; 82272; 82803; 82947; 83605; 83690; 83735; 83880; 84100; 84300; 84478; 84484; 85025; 85027; 85610; 86850; 86900; 86901; 86905; 86920; 86922; 87040; 87635; 88305; 88342; 93005; 96361; 96365; 96367; 96375; 97116; 97163; 97530; 99285; C1758; J0610; J1170; J1956; J2405; J2543; J2550; J2765; J3475; P9016

== ENCOUNTER 2022-06-16 07:04 | Inpatient (IN) | payer MEDICARE, SELFPAY ==
[2022-06-16] VITALS (17 sets, daily range): BP systolic 79–97; BP diastolic 36–57; PULSE 66–81; RESP 11–21; TEMP 36.5–37; O2SAT 94–100; BMI 24.7; BMI 24.4
--- NOTE | ~2022-06-16 | XR_ITS ---
EXAMINATION: XR CHEST CLINICAL INFORMATION: Shortness of breath, COVID positive. COMPARISON: 05/26/2022 chest radiograph. TECHNIQUE: Frontal view of the chest was obtained. FINDINGS: Support devices: Interval removal of right internal jugular catheter. No significant abnormality is noted involving the heart, lungs, mediastinum, bony thorax or soft tissues. XR/XR chest 1V IMPRESSION: No acute cardiopulmonary process.
--- NOTE | 2022-06-16 07:36 | ECG_ITS ---
Test Reason : WEAKNESS Blood Pressure : / mmHG Vent. Rate : 069 BPM Atrial Rate : 069 BPM P-R Int : 182 ms QRS Dur : 124 ms QT Int : 460 ms P-R-T Axes : 071 -73 078 degrees QTc Int : 492 ms Normal sinus rhythm Left axis deviation Minimal voltage criteria for LVH, may be normal variant ( [place] product ) Inferior infarct (cited on or before 19-MAR-2019) Anterolateral infarct (cited on or before 19-MAR-2019) Abnormal ECG When compared with ECG of 30-MAY-2022 13:16, Questionable change in QRS axis ST no longer elevated in Anterior leads Nonspecific T wave abnormality no longer evident in Inferior leads Nonspecific T wave abnormality, improved in Lateral leads Referred By: Stephen Hunter Electronically Signed By:CYDNEY HERNANDEZ MD
[2022-06-16 07:46] LABS: COVID-19 Test Positive (Negative); IDNOW Serial# 16C4AD1C
--- NOTE | 2022-06-16 08:04 | ED.GENADULT ---
HPI - General Adult General Chief complaint: General Medical Stated complaint: covid +hypotensive, weakness Time Seen by Provider: 06/16/22 07:33 Source: patient Limitations: no limitations History of Present Illness HPI narrative: 62-year-old male who presents emergency department for evaluation of weakness, cough, COVID positive yesterday and low blood pressure today. Patient states that he has been feeling weak since yesterday. He states that he also developed a cough which is productive of yellow sputum and was feeling very weak. He had nausea but no vomiting. He took a COVID-19 test yesterday and it was positive. The patient is not vaccinated for COVID-19. Patient took his blood pressure this morning and it was 71/40. The patient was recently hospitalized here from until 06/05/2022 secondary to hypovolemic shock treated with IV fluids. It was filled to be related to his severe ischemic cardiomyopathy secondary hypokalemia secondary to poor fluid intake. The patient also had a CT scan of the abdomen pelvis which revealed a diverticulitis verses colitis with no significant diarrhea or evidence of sepsis. He did receive 5 days of IV antibiotics. He was also found to have hypokalemia 6, hypomagnesemia and hyponatremia. He was anemic with Hemoccult-positive stools. Endoscopy and colonoscopy revealed gastric polyps in colonic polyps. The patient states that he was recently admitted to [facility] for lower GI bleed, he states that he had 5 days of red black bowel movements. He states that he received 1 transfusion at [facility]. He denied fever, chills, rhinorrhea. He does have a sore throat. He has a cough which is productive of thick yellow sputum. He denied chest pain or shortness of breath. He does feel weak and has dyspnea on exertion. He denied nausea, vomiting or diarrhea. Denied abdominal pain or dysuria. Related Data Home Medications Medication Instructions Recorded Confirmed amiodarone 200 mg tablet 200 mg PO DAILY 05/07/21 05/26/22 spironolactone 25 mg tablet 25 mg PO DAILY 05/07/21 05/26/22 omeprazole 20 mg capsule,delayed 1 cap PO BID 07/03/21 05/26/22 release furosemide 40 mg tablet 40 mg PO BID 04/07/22 05/26/22 multivitamin 1 tab PO DAILY 04/07/22 05/26/22 rivaroxaban 20 mg tablet (Xarelto) 20 mg PO DAILY 04/07/22 05/26/22 zolpidem 10 mg tablet 10 mg PO BEDTIME PRN Sleep 04/07/22 05/26/22 gemfibrozil 600 mg tablet 600 mg PO BID 05/26/22 05/26/22 Previous Rx's Medication Instructions Recorded carvedilol 6.25 mg tablet 6.25 mg PO BID #60 tabs 04/10/21 sertraline 25 mg tablet 25 mg PO DAILY #30 tabs 06/04/22 valsartan 40 mg tablet 40 mg PO DAILY #30 tabs 06/05/22 zolpidem 10 mg tablet (Ambien) 10 mg PO BEDTIME PRN insomnia #20 06/05/22 tabs Allergies Allergy/AdvReac Type Severity Reaction Status Date / Time vancomycin [VANCOMYCIN] Allergy Severe STOMACH Verified 04/07/22 14:32 UPSET, ill Review of Systems Review of Systems: Yes all other systems are reviewed and are negative [facility] Past Medical History [facility] Narrative: Social history: He denies tobacco use. He denies alcohol use. He denies drug use. Medical History Abdominal wall abscess Acute appendicitis CVA (cerebral vascular accident) Diabetes Diabetes mellitus Heart disease Heart failure with reduced ejection fraction Heart failure with reduced ejection fraction History of left below knee amputation HTN (hypertension) Ischemic cardiomyopathy Paroxysmal atrial fibrillation Surgical History H/O exploratory laparotomy H/O right hemicolectomy History of transmetatarsal amputation of right foot Hx of cholecystectomy Family History Family History Father Stroke Aortic valve replaced Mother No problems noted. Social History Social History Household Members: None Household Members Other:: Mother- takes care of her Housing: House Do you presently have visiting nurse or other home services: No Unable to assess alcohol history related to: Unknown Alcohol intake: former Patient Tobacco Use Status: Former Tobacco user Advance Directives: Yes Advance Directives on File: Yes Advance Directives Date on File: 01/06/21 service: No Current occupational status: retired and disabled Physical Exam ED Vital Signs: Vital Signs - 24 hr 06/16/22 07:18 06/16/22 08:38 Temperature 97.7 F Pulse Rate 70 68 Respiratory Rate 16 Blood Pressure 79/38 L 85/36 L Pulse Oximetry 97 Oxygen Delivery Method Room Air BMI result Body Mass Index 24.7 Const Other: Awake, alert, male patient, he is very pale, he answers all questions appropriately. He does have a since scab to his right forehead which he states was from a fall 2 weeks prior pain HENMT Head: Yes normal to inspection, Yes normocephalic and Yes atraumatic Ears: external ears normal General nose exam: Normal external nose present Face and sinus: Yes normal facial exam Mouth: Normal oral and palatal mucosa present Throat: Yes posterior oropharynx normal Eyes General: appearance normal, both eyes and all related structures Pupils: Equal, round and reactive pupils present Neck Neck: Yes normal visual inspection, Yes no lymphadenopathy, Yes trachea midline and Yes supple Chest Chest palpation & inspection: normal inspection of the chest and normal palpation of entire chest wall Resp Effort & Inspection: normal respiratory effort and able to speak in complete sentences Auscultation: clear to auscultation bilaterally Cardio Rate: regular rate Rhythm: regular rhythm Heart sounds: S1 normal heart sound present, S2 normal heart sound present and no murmurs GI Inspection: Yes normal to inspection Palpation (GI): Soft to palpation, nontender and no guarding Auscultation: normal bowel sounds Rectal Exam - Male: Yes visual inspection normal, Yes decreased sphincter tone and Yes heme negative stool (Loose brown stool) General: Yes no CVA tenderness Back/Spine/Pelvis Back: no CVA tenderness Skin General skin exam: no rashes or lesions noted Neuro Cranial nerves: Yes CN's II-XII intact bilaterally and Yes Equal, round and reactive pupils present Cognition (Neuro): normal cognition Motor exam (neuro): 5/5 motor strength present throughout Extrem Other: Left [id number]-[id number] amputation Psych Appearance: grossly normal Speech and movement: Normal speech and movement present Affect: normal affect Attitude: cooperative Thought process: Normal thought process present Thought content: Normal thought content present Course Course Course Narrative: 62-year-old male who presents emergency department for evaluation of productive cough and weakness times 2 days with a low blood pressure at home today of 71/40. Patient was COVID positive yesterday by a home test. The patient was recently hospitalized at [facility] for bloody/black stools and was hospitalized here from 05/29/2022 until 06/05/2022 for hypotension for the secondary to hypovolemia and his known ischemic cardiomyopathy as well as possible colitis. The patient appears to be very pale but is awake and alert and answering questions. He was hypotensive with a blood pressure of 79/38 otherwise his vital signs were unremarkable. His rectal exam revealed loose brown stool which was Hemoccult negative. At this time I am concerned the patient may have sepsis versus hypovolemia again causing his hypotension. GI bleed is also possible. I did make the patient a sepsis alert. I did order a 30 cc/kilogram bolus and Zosyn 3.375 mg IV. 0843: I did discuss the patient with the family helper Dr. Asad Rodríguez. He recommended that the patient not get the 30 cc/kilogram bolus secondary to his ischemic cardiomyopathy. The patient will get 1 L of normal saline IV and then will reassess his blood pressure and volume status. 1015: Laboratory evaluation did reveal anemia with an H&H of 8.5 and 25.6, this is similar to his baseline anemia. Patient's BUN creatinine were elevated 481.87. First high sensitive troponin was 35 this will be repeated at 11:15, he has had similar elevations in the past. Patient's chest x-ray was unremarkable with no evidence of CHF or COVID pneumonia. Patient's COVID-19 test was positive. Lactic acid was normal. I did discuss these results with Dr. Rodríguez. This time, I do not think that the patient have bacterial infection process is caused his hypotension. The COVID-19 infection may be adversely affecting his cardiac function. Given the patient's low EF and his hypotension, we are going to transfuse him 1 or 2 units of packed red blood cells to see if this improves his hypotension. The patient will be admitted and he will be given remdesivir for his COVID-19 infection. Medical Decision Making Medical Records Medical records reviewed: Yes I reviewed the patient's medical records. Lab Data Lab results reviewed: Yes I reviewed the patient's lab results. Result diagrams: 06/16/22 08:09 06/16/22 08:09 Labs: Lab Results 06/16/22 06/16/22 06/16/22 Range/Units 07:17 08:09 08:09 WBC 5.9 (4.8-10.8) X10*3/uL RBC 2.83 L (4.60-5.80) X10*6/uL Hgb 8.5 L (14.0-18.0) g/dl Hct 25.6 L (42.0-52.0) % MCV 90.5 (80.0-98.0) fL MCH 30.0 (27.0-33.0) pg MCHC 33.2 (31.0-36.0) g/dl RDW 16.1 H (11.0-16.0) % Plt Count 190 D (160-400) X10*3/uL MPV 9.1 L (9.4-12.4) fL Immature Gran % (Auto) 0.8 H (0.0-0.4) % Neut % (Auto) 75.0 H (45-73) % Lymph % (Auto) 11.1 L (20-40) % [place] % (Auto) 12.2 H (2-11) % Eos % (Auto) 0.7 (0-4) % Baso % (Auto) 0.2 (0-2) % Lymph # (Auto) 0.7 L (1.2-4.9) X10*3/uL [place] # (Auto) 0.7 (0.1-1.2) X10*3/uL Eos # (Auto) 0.0 (0.0-0.4) X10*3/uL Baso # (Auto) 0.0 (0.0-0.2) X10*3/uL Abs Immat Gran (auto) 0.05 H (0.00-0.03) X10*3/uL Absolute Neuts (auto) 4.4 (2.0-8.3) x10*3/uL Absolute Nucleated RBC 0.000 (0.0-0.012) X10*3/uL Nucleated RBC % (auto) 0.0 (0.0-0.2) /100WBC PT 12.4 (10.0-13.1) SEC INR 1.1 (0.9-1.1) APTT 38.7 H (26.0-36.4) SEC Sodium (135-145) mmol/L Potassium (3.3-5.1) mmol/L Chloride (96-108) mmol/L Carbon Dioxide (22-29) mmol/L Anion Gap (12-20) BUN (9-16) mg/dL Creatinine (0.5-1.4) mg/dL Estim Creat Clear Calc Estimated GFR Random Glucose (60-115) mg/dL Lactic Acid (0.5-2.0) mmol/L Calcium (8.4-10.2) mg/dL Total Bilirubin (0.0-1.0) mg/dL AST (5-37) U/L ALT (0-40) U/L Alkaline Phosphatase (39-117) U/L Troponin I High Sens (<3.5-35.0) ng/L C-Reactive Protein (< or = 0.50) mg/dL B-Natriuretic Peptide (<100) pg/mL Total Protein (6.5-8.0) g/dL Albumin (3.5-5.0) g/dL Lipase (8-78) U/L COVID-19 (CAROLINE) Positive A (Negative) COVID-19 Clin Com See Note Blood Type Antibody Screen Crossmatch (AHG) 06/16/22 06/16/22 06/16/22 Range/Units 08:09 08:09 08:09 WBC (4.8-10.8) X10*3/uL RBC (4.60-5.80) X10*6/uL Hgb (14.0-18.0) g/dl Hct (42.0-52.0) % MCV (80.0-98.0) fL MCH (27.0-33.0) pg MCHC (31.0-36.0) g/dl RDW (11.0-16.0) % Plt Count (160-400) X10*3/uL MPV (9.4-12.4) fL Immature Gran % (Auto) (0.0-0.4) % Neut % (Auto) (45-73) % Lymph % (Auto) (20-40) % [place] % (Auto) (2-11) % Eos % (Auto) (0-4) % Baso % (Auto) (0-2) % Lymph # (Auto) (1.2-4.9) X10*3/uL [place] # (Auto) (0.1-1.2) X10*3/uL Eos # (Auto) (0.0-0.4) X10*3/uL Baso # (Auto) (0.0-0.2) X10*3/uL Abs Immat Gran (auto) (0.00-0.03) X10*3/uL Absolute Neuts (auto) (2.0-8.3) x10*3/uL Absolute Nucleated RBC (0.0-0.012) X10*3/uL Nucleated RBC % (auto) (0.0-0.2) /100WBC PT (10.0-13.1) SEC INR (0.9-1.1) APTT (26.0-36.4) SEC Sodium 131 L (135-145) mmol/L Potassium 4.5 (3.3-5.1) mmol/L Chloride 94 L (96-108) mmol/L Carbon Dioxide 21 L (22-29) mmol/L Anion Gap 21 H (12-20) BUN 48 H D (9-16) mg/dL Creatinine 1.87 H (0.5-1.4) mg/dL Estim Creat Clear Calc 48.3 Estimated GFR 37 Random Glucose 102 (60-115) mg/dL Lactic Acid 1.0 (0.5-2.0) mmol/L Calcium 7.6 L (8.4-10.2) mg/dL Total Bilirubin 0.3 (0.0-1.0) mg/dL AST 35 D (5-37) U/L ALT 20 (0-40) U/L Alkaline Phosphatase 95 (39-117) U/L Troponin I High Sens 35.4 H (<3.5-35.0) ng/L C-Reactive Protein 9.08 H (< or = 0.50) mg/dL B-Natriuretic Peptide 94 (<100) pg/mL Total Protein 5.9 L (6.5-8.0) g/dL Albumin 3.2 L (3.5-5.0) g/dL Lipase 67 (8-78) U/L COVID-19 (CAROLINE) (Negative) COVID-19 Clin [facility] Blood Type Antibody Screen Crossmatch (AHG) 06/16/22 Range/Units 08:27 WBC (4.8-10.8) X10*3/uL RBC (4.60-5.80) X10*6/uL Hgb (14.0-18.0) g/dl Hct (42.0-52.0) % MCV (80.0-98.0) fL MCH (27.0-33.0) pg MCHC (31.0-36.0) g/dl RDW (11.0-16.0) % Plt Count (160-400) X10*3/uL MPV (9.4-12.4) fL Immature Gran % (Auto) (0.0-0.4) % Neut % (Auto) (45-73) % Lymph % (Auto) (20-40) % [place] % (Auto) (2-11) % Eos % (Auto) (0-4) % Baso % (Auto) (0-2) % Lymph # (Auto) (1.2-4.9) X10*3/uL [place] # (Auto) (0.1-1.2) X10*3/uL Eos # (Auto) (0.0-0.4) X10*3/uL Baso # (Auto) (0.0-0.2) X10*3/uL Abs Immat Gran (auto) (0.00-0.03) X10*3/uL Absolute Neuts (auto) (2.0-8.3) x10*3/uL Absolute Nucleated RBC (0.0-0.012) X10*3/uL Nucleated RBC % (auto) (0.0-0.2) /100WBC PT (10.0-13.1) SEC INR (0.9-1.1) APTT (26.0-36.4) SEC Sodium (135-145) mmol/L Potassium (3.3-5.1) mmol/L Chloride (96-108) mmol/L Carbon Dioxide (22-29) mmol/L Anion Gap (12-20) BUN (9-16) mg/dL Creatinine (0.5-1.4) mg/dL Estim Creat Clear Calc Estimated GFR Random Glucose (60-115) mg/dL Lactic Acid (0.5-2.0) mmol/L Calcium (8.4-10.2) mg/dL Total Bilirubin (0.0-1.0) mg/dL AST (5-37) U/L ALT (0-40) U/L Alkaline Phosphatase (39-117) U/L Troponin I High Sens (<3.5-35.0) ng/L C-Reactive Protein (< or = 0.50) mg/dL B-Natriuretic Peptide (<100) pg/mL Total Protein (6.5-8.0) g/dL Albumin (3.5-5.0) g/dL Lipase (8-78) U/L COVID-19 (CAROLINE) (Negative) COVID-19 Clin Com Blood Type O Negative Antibody Screen NEGATIVE Crossmatch (AHG) See Detail ECG Data Attestation: I personally reviewed and interpreted this ECG as follows: Interpretation: 0753: Normal sinus rhythm rate of 69, normal SC interval, prolonged QRS duration 124, prolonged QTC 492, Q-waves in lead 3, AVF, V1 through V3, no ST segment elevation, no ST segment depression, no significant T-wave abnormalities, compared to the patient's previous EKG there is no significant change. Critical Care Time Critical Care Time Critical Care Time: Yes Total Critical Care Time: 55 Attestation: Critical Care: The patient was critically ill with a high probability of imminent or life threatening deterioration. I spent greater than 30 minutes of discontinuous time evaluating the patient,delivering critical care at the bedside, discussing and evaluating pertinent data with consultants. Critical care time does not include time spent performing separately billable procedures or teaching. Total time spent performing critical care was 45 minutes. Discharge Plan Discharge Clinical Impression: Acute hypotension, Ischemic cardiomyopathy, COVID-19 virus infection Patient Disposition: Admitted As Inpatient Prescriptions: No Action carvedilol 6.25 mg Tablet 6.25 mg PO BID Qty: 60 0RF Protocol: Hold for SBP/HR < HOLD for SBP < : 90 HOLD for HR < : 60 amiodarone 200 mg tablet 200 mg PO DAILY omeprazole 20 mg capsule,delayed release(DR/EC) 1 cap PO BID Xarelto 20 mg tablet 20 mg PO DAILY gemfibrozil 600 mg Tablet 600 mg PO BID sertraline 25 mg Tablet 25 mg PO DAILY Qty: 30 0RF valsartan 40 mg tablet 40 mg PO DAILY Qty: 30 0RF zolpidem [Ambien] 10 mg tablet 10 mg PO BEDTIME PRN (Reason: insomnia) Qty: 20 0RF spironolactone 25 mg tablet 25 mg PO DAILY Protocol: Hold for SBP< HOLD for SBP < : 90 furosemide 40 mg tablet 40 mg PO BID zolpidem 10 mg tablet 10 mg PO BEDTIME PRN (Reason: Sleep) multivitamin Tablet 1 tab PO DAILY
[2022-06-16 08:21] LABS: MANUAL DIFF FLAG NO
[2022-06-16 08:25] LABS: Basophils Percent Auto 0.2 % (0-2); Eosinophils Percent Auto 0.7 % (0-4); Hematocrit 25.6 % (42.0-52.0); Hemoglobin 8.5 g/dl (14.0-18.0); Imm Gran Abs Auto 0.05 X10*3/uL (0.00-0.03); Imm Gran Pct Auto 0.8 % (0.0-0.4); Lymphocytes Absolute Auto 0.7 X10*3/uL (1.2-4.9); Lymphocytes Percent Auto 11.1 % (20-40); Mean Corpuscular HGB Conc 33.2 g/dl (31.0-36.0); Mean Corpuscular Volume 90.5 fL (80.0-98.0); Mean Platelet Volume 9.1 fL (9.4-12.4); Monocytes Absolute Auto 0.7 X10*3/uL (0.1-1.2); Monocytes Percent Auto 12.2 % (2-11); Neutrophils Absolute Auto 4.4 x10*3/uL (2.0-8.3); Platelet Count 190 X10*3/uL (160-400); Red Blood Count 2.83 X10*6/uL (4.60-5.80); Red Cell Distribution Width 16.1 % (11.0-16.0); White Blood Count 5.9 X10*3/uL (4.8-10.8)
[2022-06-16 08:30] LABS: INTERNATIONAL NORM RATIO 1.1 (0.9-1.1); Prothrombin Time 12.4 SEC (10.0-13.1)
[2022-06-16 08:32] LABS: Partial Thromboplastin Time 38.7 SEC (26.0-36.4)
[2022-06-16 08:43] LABS: Alanine Aminotransferase 20 U/L (0-40); Albumin Level 3.2 g/dL (3.5-5.0); Alkaline Phosphatase 95 U/L (39-117); Anion Gap 21 (12-20); Aspartate Amino Transferase 35 U/L (5-37); Bilirubin Total 0.3 mg/dL (0.0-1.0); Blood Urea Nitrogen 48 mg/dL (9-16); C Reactive Protein 9.08 mg/dL (< or = 0.50); Calcium 7.6 mg/dL (8.4-10.2); Carbon Dioxide 21 mmol/L (22-29); Chloride 94 mmol/L (96-108); Creatinine Clr Calc Pharmacy 48.3; Estimated Glomerular Filt Rate 37; Glucose Random 102 mg/dL (60-115); Lipase 67 U/L (8-78); Potassium 4.5 mmol/L (3.3-5.1); Sodium 131 mmol/L (135-145); Total Protein 5.9 g/dL (6.5-8.0)
[2022-06-16 08:45] LABS: B Type Natriuretic Peptide 94 pg/mL (<100); Troponin-I High Sensitivity 35.4 ng/L (<3.5-35.0)
[2022-06-16] MEDS: Piperacillin Sodium/Tazobactam 3.375 GM in 0.9 % Sodium Chloride 50 ML IV (09:02)
--- NOTE | 2022-06-16 09:50 | CA_ITS ---
Transthoracic Echocardiogram Patient (Last, First, Middle): Denzel Hammond, Gender: Male Date of : 1960 Age: 62 Procedure Date: 06/16/2022 Procedure Type: Transthoracic Echocardiogram Location: ICU Height: 190.5 cm Weight: 89.81 kg BSA: 2.19 m2 Heart Rate: bpm BP: 89 / 48 mmHg Studio Grip: LAVON Referring MD: Asad Rodríguez MD Shipping And Receiving: Haja Mullins MD Symptoms: refract hypotension. LV, RV size and fxn; IVC Study Quality: Technically Difficult/contrast ECG Rhythm: Sinus Conclusions: - 1. Technically very limited study despite use of contrast agent 2. There is severe LV systolic dysfunction with LVEF of 25-30% with underlying regional wall motion abnormality consistent with ischemic cardiomyopathy with grade 1 diastolic dysfunction 3. Limited visualization of cardiac valves with normal cardiac valvular Doppler 4. RV systolic pressure is not well calculated with RA pressures appear to be normal 5. No gross pericardial effusion Findings Procedure Information Contrast agent, definity, is being given per protocol without apparent complications. Left Ventricle The left ventricular systolic function is severely decreased. The visually estimated ejection fraction is between 25-30%. There is evidence of regional wall motion abnormalities. Spectral Doppler is indicative of an impaired relaxation filling pattern. E/E prime ratio is <8, consistent with normal filling pressures. Evidence suggests grade I (mild) diastolic dysfunction. Right Ventricle Mildly increased right ventricular cavity size. There is mild to moderately decreased right ventricular systolic function. Atria The left atrium is likely dilated. Interatrial shunt cannot be excluded. The right atrium was not well visualized. Aortic Valve There is no aortic valve stenosis. There is no aortic valve regurgitation. Mitral Valve The mitral valve was not well visualized. There is no mitral valve regurgitation. There is no mitral valve stenosis. Pulmonic Valve The pulmonic valve was not well visualized. Tricuspid Valve The tricuspid valve was not well visualized. Tricuspid regurgitation envelope is inadequate for calculation of right ventricular systolic pressure. Normal right atrial pressure. Great Vessels All visible segments of the aorta are normal in size. The pulmonary artery was not well visualized. Venous The inferior vena cava is normal in size and collapses greater than 50% with inspiration. Pericardium/Pleural There is no evidence of pericardial effusion. Prior Study Comparison No significant change compared to prior study dated: 04/03/2021. Measurements 2D Linear Measurements IVSd: 1.12 0.6-0.9/0.6-1.0 cm LVIDd: 3.41 3.9-5.3/4.2-5.9 cm LVIDd Index: 1.56 2.4-3.2/2.2-3.1 cm/m2 LVIDs: 2.84 2.0-3.6 cm LVPWd: 1.20 0.7-1.1 cm LV Mass: 213.89 67-162/88-224 g LV Mass Index: 97.67 43-95/49-115 g/m2 LVOT Diam: 2.10 3.0+(-)1.3 cm 2D Systolic Function EF 4C: 29.20 >55% EF 2C: 32.80 >55% EF BiP: 28.10 >55% Mitral Valve MV Pk E: 0.67 MV PK A: 0.95 MV Decel Time: 320.00 E/A: 0.70 E'Lateral: 7.94 E'Medial: 5.00 E/E' Med: 13.50 E/E' Lat: 8.50 PHT: 94.00 MVA PHT: 2.34 Decel [place]: 2.10 Aortic Valve AoV Pk Robin: 1.16 AoV Mn Robin: 0.81 AoV VTI: 0.25 AoV Pk Grad: 5.00 Aov Mn Grad: 3.00 EUFEMIA Cont.VTI: 2.88 LVOT LVOT Pk Robin: 0.93 LVOT Mn Robin: 0.60 LVOT VTI: 0.21 LVOT Pk Grad: 3.00 LVOT Mn Grad: 2.00 LVOT Diam: 2.10 LVOT Area: 3.46 Diastolic Function MV Pk E: 0.67 MV Pk A: 0.95 E/A: 0.70 E'Medial: 5.00 E/E' Med: 13.50 E' Laterial: 7.94 E/E' Lat: 8.50 Right Ventricle TAPSE (mm): 13.20 TVS' Robin: 7.29 Tricuspid Valve RA Press: 3.00 Great Vessels Aorta Sinus of Valsalva: 3.44 2.0-3.[address] [place]: 2.61 1.7-3.4 cm Updated in Other Vendor System with Status of Final Haja Mullins MD electronically signed on 06/16/2022 1:46:56 PM with status of Final
--- NOTE | 2022-06-16 10:23 | PHA.MEDREC ---
Pharmacy Consult ? Medication Reconciliation Pharmacy has completed the medication reconciliation. Patient had a list of his medications in the room.
--- NOTE | 2022-06-16 11:04 | PC.NURSE ---
pt currently receiving RBC's, at 15 minute vs check pt does not show any signs of transfusion reaction.
[2022-06-16] MEDS: Remdesivir 200 MG in 0.9 % Sodium Chloride 210 ML 105 MG IV (11:34)
[2022-06-16] MEDS: Famotidine 20 MG TABLET PO (12:04)
[2022-06-16] MEDS: Cholecalciferol (Vitamin D3) 25 MCG TABLET 100 MCG PO (12:04)
[2022-06-16 12:15] LABS: Troponin-I High Sensitivity 25.5 ng/L (<3.5-35.0)
[2022-06-16] MEDS: Heparin Sodium,Porcine 5,000 UNIT/ML VIAL 5000 UNIT SUBCUT ×2 (14:56→21:33)
[2022-06-16] MEDS: Ascorbic Acid 500 MG TABLET 1000 MG PO ×2 (14:56→21:33)
[2022-06-16 15:03] LABS: Appearance Urine CLEAR; Color Urine YELLOW; Glucose Urine UA NEG (NEG); Leukocyte Esterase Urine NEG (NEG); Nitrite Urine NEG (NEG); PH 5.5 (5.0-8.0); Specific Gravity - Urine 1.015 (1.005-1.025); Urine Blood NEG (NEG); Urine Ketones NEG (NEG); Urine Protein NEG (NEG-TRACE)
[2022-06-16 16:58] LABS: Hematocrit 27.6 % (42.0-52.0); Hemoglobin 9.4 g/dl (14.0-18.0)
[2022-06-16 17:31] LABS: Anion Gap 20 (12-20); Blood Urea Nitrogen 46 mg/dL (9-16); Calcium 7.5 mg/dL (8.4-10.2); Carbon Dioxide 19 mmol/L (22-29); Chloride 99 mmol/L (96-108); Creatinine Clr Calc Pharmacy 55.7; Estimated Glomerular Filt Rate 43; Glucose Random 83 mg/dL (60-115); Potassium 4.3 mmol/L (3.3-5.1); Sodium 134 mmol/L (135-145)
[2022-06-16] MEDS: Lactated Ringers 1,000 ML 500 ML IV (19:00)
[2022-06-16 20:57] LABS: Magnesium 1.7 mg/dL (1.6-2.6); Phosphorus 4.8 mg/dL (2.7-4.5)
--- NOTE | 2022-06-16 21:10 | PM.CCHP ---
History of Present Illness Date of Service: 06/16/22 Attending physician on admission: Asad Rodríguez Chief Complaint: Hypotension Mr. Hammond will be admitted to the ICU this morning with hypovolemic shock. The patient is a 62-year-old male w PMHx of diabetes, hypertension, hyperlipidemia, peripheral vascular disease complicated by trans met amputation in 2007 and left BKA in 2015, CAD w ischemic cardiomyopathy with systolic CHF, PAfib on Xarelto, GERD, and insomnia.? 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 Underwent cardiac catheterization in February,.? Found occluded LAD and RCA with collaterals, w severe mid-LCx stenosis.? Normal LVEDP.? V Gram showed dyskinetic apex and akinetic inferior wall.? Recommended cardiac MRI to assess viability, referral for CABG if suitable.? No follow up yet. Last echo 03/2021 showed:? Moderately dilated LV with severe LV systolic dysfunction with EF of 20-25% with grade 2 diastolic dysfunction with underlying RWMAs; moderately dilated LA; bket-[id number] mitral regurgitation; dilated IVC with no inspiratory collapse; and RVSP 49 mm. For the last number of years, the patient had been living with and caring for his parents.? His father about 5 years ago.? Then his mother end of this April.? The patient had been grieving her loss and was significantly depressed, not wanting to eat or drink and lying in bed all the time.? He was brought [facility] on May 26 with weakness and hypovolemic shock, with ARF, BUN/creat 170/4.1.? He was hospitalized here for 10 days, treated primarily with slow IV hydration.? During that hospitalization, he: - was also treated with a brief course of empiric abx for sepsis - was found to be anemic, with brown guiac positive stool.? He underwent EGD and colonoscopy.? EGD showed an inflamed gastric polyp, which was snared.? Colonoscopy showed a patent ileocolonoc anstamosis; he had mult polyps which were removed. - had acute thrombocytopenia, thought 2? critical illness. - was found on admission to have a stage 2 sacrococcygeal pressure ulcer.? Treated in the usual fashion. - was thought to have at least moderate protein calorie malnutrition.? He was given TPN for a few days. - had a very hypoanimated affect and was felt to have depression, and was started on Zoloft and Provigil. He was discharged on 06/05 to a SNF for rehab. Following that, the patient was admitted to [facility] from 06/08-06/10/2022 for painless bright red blood per rectum.? Admission hemoglobin was 9.8.? He underwent repeat colonoscopy which revealed a 20 mm ulcer at the base of the previous polyp removal site.? Bleeding was controlled with cautery and the vessel was clipped.? He was transfused 1 unit of blood.? At that hospitalization, the patient was found to have low blood pressures which were thought due to intravascular volume depletion and his Coreg, valsartan, and Lasix.? BUN/creatinine were 33/1.0.? The medications were held and he was given gentle IV hydration.? The ptient was discharged on 06/10 to home, with a Hb of 8.2, platelet count of 213K, BUN/creat 23/0.6.? He was scheduled to restart his Xarelto on 06/15.? The patient tell me that he lives alone.? His brother lives next door though and spends most of his time in Denzel?s house.? The patient does his own cooking.? The brother does the shopping and often Denzel goes with him.? Outside the house, Denzel gets around in a wheelchair. HISTORY OF PRESENT ILLNESS:? The patient was BIBA this morning for evaluation of weakness, cough, and low blood pressure.? The patient reported that that he has been feeling weak since yesterday, and had developed a cough productive of yellow sputum and was feeling very weak.? He had nausea but no vomiting.? He took a COVID-19 test yesterday and it was positive.? The patient is not vaccinated for COVID-19.? The patient took his blood pressure this morning and it was 71/40, so he called the ambulance. In the ED, he was A&O and appropriate.? Very pale.? Clear chest.? Benign abdomen.? Brown, heme neg stool on rectal exam.? Labs in the ED were notable for white count 5.9, hemoglobin 8.5, platelet count 190.? Sodium was 131, BUN/creatinine 48/1.8, bicarb 21, potassium 4.5.? CRP was 9.0, albumin was 3.2, Troponin was 35, and follow-up was 25.? Lactic acid was 1.0. The patient was given Abx and a limited fluid bolus of 1liter, given his h/o heart failure. ?He was transfused 1 unit of blood, given his hemoglobin and his ischemic cardiomyopathy.? Echo done by the [facility], showed severe LV dysfxn w EF 20-25% with RWMAs, and grade 1 DDx.? RV cavity size is mildly increased with mild to moderately decreased RV systolic function.? There was at least 1+ MR.? There was no significant TR envelope.? The inferior vena cava was normal sized with about 50% insp collapse. The patient was admitted to the ICU, and fluid resuscitation was continued.? The patient is fully alert and oriented, significantly more animated than he was at his last admission.? Afebrile.? Heart rate 68, sinus rhythm.? Blood pressure 93/46.? Breathing easy with sat 100% on room air.? Mucous membranes look dry.? No jugular venous distention with the head of the bed at 30 degrees.? No edema whatsoever. He has stage I pressure sores on both buttocks.? Has a small stage II pressure sore on his left butt. LABORATORY DATA:? Repeat labs after volume resuscitation and 1 unit of blood show hemoglobin of 9.4, BUN/creatinine down to 46/1.6, bicarb 19, potassium 4.3. IMPRESSION: 1. Underlying DM.? Now on a sliding scale. 2. Underlying CAD w ischemic cardiomyopathy.? Undoubtedly partly responsible for his low blood pressure.? In fact, his ideal blood pressure is probably around 100 systolic, certainly no higher than 110 mm.? Hold all his blood pressure meds and Lasix. 3. Underlying PAfib, was on Xarelto.? Now in a regular rhythm.? Bec of his ANDRÉS, we?ll drop his Xarelto dose to 15 mg daily for now. 4. Underlying PVD. 5. Refractory hypotension.? Appears again 2? to hypovolemia, with lack of compensatory cardiovascular reserve because of his severe ischemic cardiomyopathy.? And his hypoalbuminemia and anemia are contributing factors.? No evidence of GI bleeding.? I?m fairly confident he was never in septic shock -- his lactate was normal, his mental status was normal, and his breathing was normal.? He has definitely improved from the ED this morning, but still dehydrated, based on his renal indices and dry mucous membranes.? We?re continuing measured volume resuscitation in aliquots.? We?ll also start him on midodrine bec of the recurrent hypotension. 6. ANDRÉS.? 2? hypovolemia. 7. Acute COVID.? At this time, no pulmonary sx.? But he?s obviously definitely at risk.? We do not have Paxlovid here.? The only thing I can offer him is remdesivir.? I?ll also put him on Michael C, Vit D, and Pepcid.? And he?ll continue his aspirin. 8. H/o GERD.? Continue PPI that he?s on at home. 9. Anemia.? He does have chronic anemia.? With his hemoglobin of 8.5 and his coronary artery disease with ischemic cardiomyopathy and his refractory hypotension, I rec?d transfusion of one unit RBCs. 10. Hyponatremia.? Should resolve with continued vol resusc. 11. Pressure ulcers.? Usual management. 12. Still looks aesthenic, probably at least mild protein calorie malnutrition.? Will d/w dietary tomorrow. 13. ? Hypoanimated depression:? According to his Med Rec, he?s still on the Zoloft.? He looks much better, much brighter and more animated than he did during his last admission.? Continue the Zoloft. ?At this point, there is no need for the Provigil. Critical care time (including old chart review; multiple discussions with ED staff; personal review and interpretation of his echo): 110+ minutes [facility] Past Medical History Medical History Abdominal wall abscess Acute appendicitis CVA (cerebral vascular accident) Diabetes Diabetes mellitus Heart disease Heart failure with reduced ejection fraction Heart failure with reduced ejection fraction History of left below knee amputation HTN (hypertension) Ischemic cardiomyopathy Paroxysmal atrial fibrillation Family History Family History Father Stroke Aortic valve replaced Mother No problems noted. Surgical History Surgical History H/O exploratory laparotomy H/O right hemicolectomy History of transmetatarsal amputation of right foot Hx of cholecystectomy Social History Social History Household Members: None Household Members Other:: Mother- takes care of her Housing: House Do you presently have visiting nurse or other home services: No Unable to assess alcohol history related to: Unknown Alcohol intake: former Patient Tobacco Use Status: Former Tobacco user Use of substances other than those prescribed or required for medical reasons: No Have you been hit, kicked, punched, or otherwise hurt by someone within the past year? If so, by whom?: No Do you feel safe in your current relationship?: No Current Relationship Is there a partner from a previous relationship who is making you feel unsafe now?: No Are you made to feel afraid or neglected: No Spiritual Healthcare Practices: none per patient Pentecostal Healthcare Practices: none per patient Cultural Healthcare Practices: none per patient Advance Directives: Yes Advance Directives Information Provided: Yes Advance Directives on File: Yes Advance Directives Date on File: 01/06/21 Do you have thoughts of harming others: None Do you have a plan to hurt others: No Plan Recently lost weight without trying: Yes How much weight loss: 2-13 pounds Eating poorly because of decreased appetite: Yes Nutrition screen score: 4 Nutrition Risks: Poor intake 0-25% >4 days Poor oral hygiene: No service: No Current occupational status: retired and disabled Meds Allergies Allergy/AdvReac Type Severity Reaction Status Date / Time vancomycin [VANCOMYCIN] Allergy Severe STOMACH Verified 04/07/22 14:32 UPSET, ill Active Medications: Current Medications Amiodarone HCl (Amiodarone Hcl 200 Mg Tablet) 200 mg PO DAILY [facility] Ascorbic Acid (Ascorbic Acid 500 Mg Tablet) 1,000 mg PO BID [facility] Last Admin: 06/16/22 14:56 Dose: 1,000 mg Aspirin (Aspirin Enteric Coated 81 Mg Tablet.Dr) 81 mg PO DAILY [facility] Famotidine (Famotidine 20 Mg Tablet) 20 mg PO DAILY [facility] Last Admin: 06/16/22 12:04 Dose: 20 mg Gemfibrozil (Gemfibrozil 600 Mg Tablet) 600 mg PO BID [facility] Heparin Sodium (Porcine) (Heparin Sodium,Porcine 5,000 Unit/Ml Vial) 5,000 unit SUBCUT Q8H [facility] Last Admin: 06/16/22 14:56 Dose: 5,000 unit Remdesivir 100 mg/ Sodium (Chloride) 230 mls @ 115 mls/hr IV Q24H [facility] Stop: 06/20/22 13:59 Midodrine (Midodrine Hcl 10 Mg Tablet) 10 mg PO TIDWM [facility] Multivitamins/Vitamin C (Multivitamin Tablet) 1 tab PO DAILY [facility] Omeprazole (Omeprazole 20 Mg Capsule.Dr) 20 mg PO BID@0630,1630 [facility] Rivaroxaban (Rivaroxaban 15 Mg Tablet) 15 mg PO DAILY [facility] Sertraline HCl (Sertraline Hcl 25 Mg Tablet) 25 mg PO DAILY [facility] Vitamin D (Cholecalciferol (Vitamin D3) 25 Mcg Tablet) 100 mcg PO DAILY [facility] Last Admin: 06/16/22 12:04 Dose: 100 mcg Zolpidem Tartrate (Zolpidem Tartrate 5 Mg Tablet) 10 mg PO BEDTIME PRN PRN Reason: Sleep Home Medications Medication Instructions Recorded Confirmed Last Taken Type amiodarone 200 mg tablet 200 mg PO DAILY 05/07/21 06/16/22 05/25/22 History spironolactone 25 mg tablet 25 mg PO DAILY 05/07/21 06/16/22 05/25/22 History omeprazole 20 mg capsule,delayed 1 cap PO BID 07/03/21 06/16/22 05/25/22 History release furosemide 40 mg tablet 40 mg PO BID 04/07/22 06/16/22 05/25/22 History multivitamin 1 tab PO DAILY 04/07/22 06/16/22 05/25/22 History rivaroxaban 20 mg tablet (Xarelto) 20 mg PO DAILY 04/07/22 06/16/22 05/25/22 History zolpidem 10 mg tablet 10 mg PO BEDTIME PRN Sleep 04/07/22 06/16/22 05/25/22 History gemfibrozil 600 mg tablet 600 mg PO BID 05/26/22 06/16/22 05/25/22 History aspirin 81 mg tablet,delayed 81 mg PO DAILY 06/16/22 06/16/22 Unknown History release metoprolol tartrate 25 mg tablet 1 tab PO BID 06/16/22 06/16/22 Unknown History valsartan 80 mg tablet 1 tab PO DAILY 06/16/22 06/16/22 Unknown History Physical Exam Vital Signs: Vital Signs: Last Vital Signs Temp 97.9 F 06/16/22 21:00 Pulse 74 06/16/22 21:00 Resp 11 L 06/16/22 21:00 BP 97/45 L 06/16/22 21:00 Pulse Ox 98 06/16/22 21:00 O2 Del Method 06/16/22 21:00 BMI result Body Mass Index 24.4 Results Labs CBC and Chem 7: 06/16/22 16:51 06/16/22 16:51 Labs: Laboratory Results - last 24 hr 06/16/22 06/16/22 06/16/22 07:17 08:09 08:09 MCV 90.5 MCH 30.0 MCHC 33.2 RDW 16.1 H Plt Count 190 D MPV 9.1 L Immature Gran % (Auto) 0.8 H Neut % (Auto) 75.0 H Lymph % (Auto) 11.1 L [place] % (Auto) 12.2 H Eos % (Auto) 0.7 Baso % (Auto) 0.2 Lymph # (Auto) 0.7 L [place] # (Auto) 0.7 Eos # (Auto) 0.0 Baso # (Auto) 0.0 Abs Immat Gran (auto) 0.05 H Absolute Neuts (auto) 4.4 Absolute Nucleated RBC 0.000 Nucleated RBC % (auto) 0.0 PT 12.4 INR 1.1 APTT 38.7 H Anion Gap Estim Creat Clear Calc Estimated GFR Random Glucose Lactic Acid Calcium Phosphorus Magnesium Total Bilirubin AST ALT Alkaline Phosphatase C-Reactive Protein B-Natriuretic Peptide Total Protein Albumin Lipase Urine Color Urine Appearance Urine pH Ur Specific [place] Urine Protein Urine Glucose (UA) Urine Ketones Urine Blood Urine Nitrite Ur Leukocyte Esterase Ur Random Sodium COVID-19 (CAROLINE) Positive A COVID-19 Clin Com See Note Blood Type Antibody Screen Crossmatch ([facility]) 06/16/22 06/16/22 06/16/22 08:09 08:09 08:09 MCV MCH MCHC RDW Plt Count MPV Immature Gran % (Auto) Neut % (Auto) Lymph % (Auto) [place] % (Auto) Eos % (Auto) Baso % (Auto) Lymph # (Auto) [place] # (Auto) Eos # (Auto) Baso # (Auto) Abs Immat Gran (auto) Absolute Neuts (auto) Absolute Nucleated RBC Nucleated RBC % (auto) PT INR APTT Anion Gap 21 H Estim Creat Clear Calc 48.3 Estimated GFR 37 Random Glucose 102 Lactic Acid 1.0 Calcium 7.6 L Phosphorus Magnesium Total Bilirubin 0.3 AST 35 D ALT 20 Alkaline Phosphatase 95 C-Reactive Protein 9.08 H B-Natriuretic Peptide 94 Total Protein 5.9 L Albumin 3.2 L Lipase 67 Urine Color Urine Appearance Urine pH Ur Specific [place] Urine Protein Urine Glucose (UA) Urine Ketones Urine Blood Urine Nitrite Ur Leukocyte Esterase Ur Random Sodium COVID-19 (CAROLINE) COVID-CHARGED[facility]fm [facility] Blood Type Antibody Screen Crossmatch ([facility]) 06/16/22 06/16/22 06/16/22 08:27 14:49 14:49 MCV MCH MCHC RDW Plt Count MPV Immature Gran % (Auto) Neut % (Auto) Lymph % (Auto) [place] % (Auto) Eos % (Auto) Baso % (Auto) Lymph # (Auto) [place] # (Auto) Eos # (Auto) Baso # (Auto) Abs Immat Gran (auto) Absolute Neuts (auto) Absolute Nucleated RBC Nucleated RBC % (auto) PT INR APTT Anion Gap Estim Creat Clear Calc Estimated GFR Random Glucose Lactic Acid Calcium Phosphorus Magnesium Total Bilirubin AST ALT Alkaline Phosphatase C-Reactive Protein B-Natriuretic Peptide Total Protein Albumin Lipase Urine Color YELLOW Urine Appearance CLEAR Urine pH 5.5 Ur Specific [place] 1.015 Urine Protein NEG Urine Glucose (UA) NEG Urine Ketones NEG Urine Blood NEG Urine Nitrite NEG Ur Leukocyte Esterase NEG Ur Random Sodium 43.0 COVID-19 (CAROLINE) COVID-19 [facility] Blood Type O Negative Antibody Screen NEGATIVE Crossmatch ([facility]) See Detail 06/16/22 16:51 MCV MCH MCHC RDW Plt Count MPV Immature Gran % (Auto) Neut % (Auto) Lymph % (Auto) [place] % (Auto) Eos % (Auto) Baso % (Auto) Lymph # (Auto) [place] # (Auto) Eos # (Auto) Baso # (Auto) Abs Immat Gran (auto) Absolute Neuts (auto) Absolute Nucleated RBC Nucleated RBC % (auto) PT INR APTT Anion Gap 20 Estim Creat Clear Calc 55.7 Estimated GFR 43 Random Glucose 83 Lactic Acid Calcium 7.5 L Phosphorus 4.8 H Magnesium 1.7 Total Bilirubin AST ALT Alkaline Phosphatase C-Reactive Protein B-Natriuretic Peptide Total Protein Albumin Lipase Urine Color Urine Appearance Urine pH Ur Specific [place] Urine Protein Urine Glucose (UA) Urine Ketones Urine Blood Urine Nitrite Ur Leukocyte Esterase Ur Random Sodium COVID-19 (CAROLINE) COVID-19 Clin Com Blood Type Antibody Screen Crossmatch ([facility]) Imaging Radiologist's Impressions: Impressions Chest X-Ray 06/16/22 08:45 IMPRESSION: No acute cardiopulmonary process. Critical Care Time Critical Care Time (minutes): 120
[2022-06-16] MEDS: gemfibroziL 600 MG TABLET PO (21:33)
[2022-06-16] MEDS: Midodrine HCl 10 MG TABLET PO (21:33)
[2022-06-16] MEDS: Magnesium Sulfate/H2O 2 GM/50 ML PIGGYBACK IV (21:36)
[2022-06-17] VITALS (20 sets, daily range): BP systolic 94–127; BP diastolic 39–62; PULSE 13–77; RESP 8–17; TEMP 36.6–37.2; O2SAT 94–99; BMI 24.7
[2022-06-17 05:30] LABS: Hematocrit 28.4 % (42.0-52.0); Hemoglobin 9.5 g/dl (14.0-18.0); Mean Corpuscular HGB Conc 33.5 g/dl (31.0-36.0); Mean Corpuscular Hemoglobin 30.3 pg (27.0-33.0); Mean Corpuscular Volume 90.4 fL (80.0-98.0); Mean Platelet Volume 9.4 fL (9.4-12.4); Platelet Count 163 X10*3/uL (160-400); Red Blood Count 3.14 X10*6/uL (4.60-5.80); Red Cell Distribution Width 16.2 % (11.0-16.0); White Blood Count 4.8 X10*3/uL (4.8-10.8)
[2022-06-17 05:46] LABS: Albumin Level 3.2 g/dL (3.5-5.0); Anion Gap 17 (12-20); Blood Urea Nitrogen 44 mg/dL (9-16); Calcium 7.8 mg/dL (8.4-10.2); Carbon Dioxide 21 mmol/L (22-29); Chloride 103 mmol/L (96-108); Creatinine Clr Calc Pharmacy 68.4; Estimated Glomerular Filt Rate 55; Glucose Random 74 mg/dL (60-115); Magnesium 2.2 mg/dL (1.6-2.6); Phosphorus 3.7 mg/dL (2.7-4.5); Potassium 4.5 mmol/L (3.3-5.1); Sodium 136 mmol/L (135-145)
[2022-06-17] MEDS: Heparin Sodium,Porcine 5,000 UNIT/ML VIAL 5000 UNIT SUBCUT (06:33)
[2022-06-17] MEDS: Omeprazole 20 MG CAPSULE.DR PO ×2 (06:33→17:00)
--- NOTE | 2022-06-17 06:47 | PC.NURSE ---
Shift eval 7p-7a: Patient alert and oriented, pale. SBP in the 80's. IVF infusing - Dr Rodríguez made aware of continued low BP after IV fluids. Dr Rodríguez ordered midodrine to be given in the evening and scheduled. Given per order (see JAN). Patient BP responded - MAP ran in 50's at times - Dr Rodríguez made aware - goal SBP 90-100. Patient incont of very large liquid cheung BM at approx 2100 - maxnie care and linen change done. Patient incont of another BM at approx 6am - pericare done again. Patient pressure ulcers out to air r/t mascerated skin from incontinence. Repos Q2h. Bed alarm on for safety. Sister called in the evening - updated about patient status.
[2022-06-17] MEDS: Cholecalciferol (Vitamin D3) 25 MCG TABLET 100 MCG PO (08:24)
[2022-06-17] MEDS: Sertraline HCL 25 MG TABLET PO (08:25)
[2022-06-17] MEDS: Famotidine 20 MG TABLET PO (08:25)
[2022-06-17] MEDS: Rivaroxaban 15 MG TABLET PO (08:25)
[2022-06-17] MEDS: Midodrine HCl 10 MG TABLET PO ×3 (08:26→17:00)
[2022-06-17] MEDS: Ascorbic Acid 500 MG TABLET 1000 MG PO ×2 (08:26→20:26)
[2022-06-17] MEDS: Amiodarone HCL 200 MG TABLET PO (08:26)
[2022-06-17] MEDS: Aspirin Enteric Coated 81 MG TABLET.DR PO (08:26)
[2022-06-17] MEDS: Multivitamin TABLET 1 TAB PO (08:29)
--- NOTE | 2022-06-17 10:57 | MHC.CLN ---
PT IS MODERATELY MALNOURISHED PT WITH MILDLY DEPLETED MUSCLE MASS AND CHRONIC POOR PO WITH MULTIPLE ACUTE ILLNESS LEADING TO HOSPITALIZATIONS PT IS FAMILIAR FROM RECENT ADMISSION X 2 WEEKS AGO DIET RX: CARDIAC-RECOMMEND 2GM NA DIET -LIBERALIZING DIET R/T CHRONIC POOR PO INTAKE RECOMMEND ADDING ENSURE TID TO PROVIDE 1050KCALS, 60G PROTEIN PT REPORTED POOR APPETITE UPON ADMISSION PER NSG MONITOR PO INTAKE CLOSELY SEE ALSO FULL CLINICAL NUTRITION ASSESSMENT
--- NOTE | 2022-06-17 13:10 | MHC.CM.PN ---
Met with pt to discuss d/c planning: Pt had been at [facility] prior to [facility] admission: he states he left AMA after he was told he couldn't use the ajoining bathroom and would have to use a commode. Pt lives alone in a single family home: uses a w/c, walker, cane and has a prosthetic left lower limb. His brother lives next door and assists pt with transportation and any other needs pt has. Pt states he will not return to [facility] and would like to d/c to home. He is receptive to a [facility] referral. Pt has a working cellphone and will call his brother for transportation home. IMM 06/17: HCP on file/verified: Not COVID lesly. CM to follow
[2022-06-17] MEDS: Remdesivir 100 MG in 0.9 % Sodium Chloride 230 ML 115 MG IV (13:29)
--- NOTE | 2022-06-17 17:48 | P.PNCC_ITS ---
Subjective Subjective Date of Service: 06/17/22 Interval History: Mr. Hammond was admitted to the ICU yesterday with hypovolemic shock. The patient is a 62-year-old male w PMHx of diabetes, hypertension, hyperlipidemia, peripheral vascular disease complicated by trans met amputation in 2007 and left BKA in 2015, CAD w ischemic cardiomyopathy with systolic CHF, PAfib on Xarelto, GERD, and insomnia.? 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 He underwent cardiac catheterization in February,.? Found occluded LAD and RCA with collaterals, w severe mid-LCx stenosis.? Normal LVEDP.? V Gram showed dyskinetic apex and akinetic inferior wall.? Recommended cardiac MRI to assess viability, referral for CABG if suitable.? No follow up yet. Last echo 03/2021 showed:? Moderately dilated LV with severe LV systolic dysfunction with EF of 20-25% with grade 2 diastolic dysfunction with underlying RWMAs; moderately dilated LA; [id number] mitral regurgitation; dilated IVC with no inspiratory collapse; and RVSP 49 mm. For the last number of years, the patient had been living with and caring for his parents.? His father about 5 years ago.? Then his mother end of this April.? The patient had been grieving her loss and was significantly depressed, not wanting to eat or drink and lying in bed all the time.? He was brought to [facility] on May 26 with weakness and hypovolemic shock, with ARF, BUN/creat 170/4.1.? He was hospitalized here for 10 days, treated primarily with slow IV hydration.? During that hospitalization, he: - was also treated with a brief course of empiric abx for ? sepsis - was found to be anemic, with brown guiac positive stool.? He underwent EGD and colonoscopy.? EGD showed an inflamed gastric polyp, which was snared.? Colonoscopy showed a patent ileocolonoc anstamosis; he had mult polyps which were removed. - had acute thrombocytopenia, thought 2? critical illness. - was found on admission to have a stage 2 sacrococcygeal pressure ulcer.? Treated in the usual fashion. - was thought to have at least moderate protein calorie malnutrition.? He was given TPN for a few days. - had a very hypoanimated affect and was felt to have depression, and was started on Zoloft and Provigil. He was discharged on 06/05 to a SNF for rehab. Following that, the patient was admitted to [facility] from 06/08-06/10/2022 for painless bright red blood per rectum.? Admission hemoglobin was 9.8.? He underwent repeat colonoscopy which revealed a 20 mm ulcer at the base of the above-described polyp removal site.? Bleeding was controlled with cautery and the vessel was clipped.? He was transfused 1 unit of blood.? At that hospitalization, the patient was found to have low blood pressures which were attributed to intravascular volume depletion along with his Coreg, valsartan, and Lasix.? BUN/creatinine were 33/1.0.? The medications were held and he was given gentle IV hydration.? The ptient was discharged on 06/10 to home, with a Hb of 8.2, platelet count of 213K, BUN/creat 23/0.6.? He was scheduled to restart his Xarelto on 06/15. The patient lives alone.? His brother lives next door though and spends most of his time in Denzel?s house.? The patient does his own cooking.? The brother does the shopping and often Denzel goes with him.? Outside the house, Denzel gets around in a wheelchair. HISTORY OF PRESENT ILLNESS:? The patient was BIBA yesterday for evaluation of we akness, cough, and low blood pressure.? The patient reported that that he has been feeling weak since the day prior, and had developed a cough productive of yellow sputum.? He had nausea but no vomiting.? He took a COVID test that day and it was positive.? The patient is not vaccinated for COVID-19.? The patient took his blood pressure yesterday morning and it was 71/40, so he called the ambulance. In the ED, he was A&O and appropriate.? Very pale.? Clear chest.? Benign ab domen.? Brown, heme neg stool on rectal exam.? Labs in the ED were notable for white count 5.9, hemoglobin 8.5, platelet count 190.? Sodium was 131, BUN/creatinine 48/1.8, bicarb 21, potassium 4.5.? CRP was 9.0, albumin was 3.2, Troponin was 35, and follow-up was 25.? Lactic acid was 1.0.? COVID test was positive.? CXR showed NAPD. The patient was given Abx for possible sepsis and a limited fluid bolus of 1liter, given his h/o heart failure. ?He was transfused 1 unit of blood, given his hemoglobin and his ischemic cardiomyopathy.? Echo done by the [facility], showed severe LV dysfxn w EF 20-25% with RWMAs, and grade 1 DDx.? RV cavity size was mildly increased with mild to moderately decreased RV systolic function.? There was at least 1+ MR.? There was no significant TR envelope.? The IVC was normal sized with about 50% insp collapse. The patient was admitted to the ICU, and fluid resuscitation was continued. ?There was no suspicion of sepsis, so antibiotics were not continued. ?He was noted to have stage I pressure sores on both buttocks, and a small stage II pressure sore on his left butt.? His u/o picked up dramatically over the day.? BP was running 90?s, so I started him on midodrine 10mg tid. Urine output over the last 24 hours was 2460 cc.? Even though we held his Lasix, he is net negative 500 cc.? Currently on no IV fluids, taking a cardiac diet.? Today he?s fully alert and oriented, animated, and upbeat.? Easily remembered me.? He?s eager to go home.? Afebrile.? Heart rate 63, sinus rhythm.? Blood pressure 131/57.? Breathing easy with sat up to 99% on room air.? Mucous membranes no longer look dry like they did yesterday.? No jugular venous distention with the head of the bed at 30 degrees.? No edema whatsoever. LABORATORY DATA:? Below.? Notably, hemoglobin is 9.5 after transfusion of 1 unit of blood yesterday.? BUN and creatinine down to 44/1.3. IMPRESSION: 1. Underlying DM.? Now on a sliding scale. 2. Underlying CAD w ischemic cardiomyopathy.? Undoubtedly partly responsible for his low blood pressure.? In fact, his ideal blood pressure is probably around 100 systolic, certainly no higher than 110 mm.? We held all his blood pressure meds and Lasix. 3. Underlying PAfib, was on Xarelto.? Now in a regular rhythm.? Creatinine clearance is improved this morning, so we?ll increase his Xarelto back to his regular dose of 20 mg daily. 4. Underlying PVD. 5. Refractory hypotension.? Appears again 2? to hypovolemia (third time in a month), with lack of compensatory cardiovascular reserve because of his severe ischemic cardiomyopathy.? And his hypoalbuminemia and anemia may have been contributing factors.? No evidence of GI bleeding.? I?m fairly confident he was never in septic shock -- his lactate was normal, his mental status was normal, and his breathing was normal. ?? His renal indices are not back to normal yet, altho clinically he looks euvolemic.? He may continue to auto-hydrate himself; we?re not giving him any more IV fluids.? With BP up to 130?s, I?ve d/c?d the midodrine. ?? According to the med rec, patient is on both metoprolol and Coreg.? That must be a mistake.? I discussed his situation with Dr. Mullins.? He should continue with just the Coreg, with ultimately adding back his valsartan, with or without his Lasix and spironolactone.? I will restart the Coreg now.? The valsartan should be added next.? Given his recurrent hypovolemia, it needs to be decided what dose of Lasix, if any, he should be on, with or without spironolactone. 6. ANDRÉS.? 2? hypovolemia.? Improving 7. Acute COVID.? At this time, no pulmonary sx.? But he?s obviously definitely at risk.? We do not have Paxlovid here.? The only thing we had to offer him was remdesivir, so he?s ordered for a 5-day course.? I also put him on Michael C, Vit D, and Pepcid, and he?s continuing his aspirin. 8. H/o GERD.? Continue PPI that he?s on at home. 9. Anemia.? He does have chronic anemia.? With his hemoglobin of 8.5 in the ED and his coronary artery disease with ischemic cardiomyopathy and his refractory hypotension, we transfused him one unit RBCs yesterday. 10. Hyponatremia.? Resolved with vol resusc. 11. Pressure ulcers.? Usual management. 12. Still looks aesthenic, probably at least mild protein calorie malnutrition.? D/w dietary today.? She has seen him. 13. Hypoanimated depression:? According to his Med Rec, he?s still on the Zoloft.? He looks much much better, much brighter and more animated than he did during his last admission.? Continue the Zoloft.? At this point, there is no need for the Provigil. Stable for transfer to [facility].? I?ve signed him out to Dr. Grande. Critical Care Time (minutes): 0 Physical Exam Vital Signs: Vital Signs: Last Vital Signs Temp 98.8 F 06/17/22 16:00 Pulse 63 06/17/22 16:00 Resp 15 06/17/22 16:00 BP 112/57 L 06/17/22 16:00 Pulse Ox 97 06/17/22 16:00 O2 Del Method 06/17/22 16:00 BMI result Body Mass Index 24.7 Objective Data Labs CBC & Chem 7: 06/17/22 05:16 06/17/22 05:16 Labs: Laboratory Results - last 24 hr 06/16/22 06/17/22 06/17/22 16:51 05:16 05:16 WBC 4.8 RBC 3.14 L Hgb 9.5 L Hct 28.4 L MCV 90.4 MCH 30.3 MCHC 33.5 RDW 16.2 H Plt Count 163 MPV 9.4 Absolute Nucleated RBC 0.000 Nucleated RBC % (auto) 0.0 Sodium 136 Potassium 4.5 Chloride 103 Carbon Dioxide 21 L Anion Gap 17 BUN 44 H Creatinine 1.32 Estim Creat Clear Calc 68.4 Estimated GFR 55 Random Glucose 74 Calcium 7.8 L Phosphorus 4.8 H 3.7 Magnesium 1.7 2.2 Albumin 3.2 L Microbiology Microbiology Results: Microbiology 06/16/22 08:27 Blood - Venous Blood Culture - Preliminary No growth after 24 hours. 06/16/22 08:09 Blood - Venous Blood Culture - Preliminary No growth after 24 hours. Quality Stroke Does the patient have a stroke diagnosis?: No VTE Prior VTE?: No VTE Risk Level:: Medical - moderate - high VTE Device Contraindication: N/A - Device Ordered VTE Drug Contraindication: N/A - Med Ordered
[2022-06-17] MEDS: carvediloL 6.25 MG TABLET PO (20:26)
[2022-06-17] MEDS: gemfibroziL 600 MG TABLET PO (20:26)
[2022-06-18] VITALS (7 sets, daily range): BP systolic 101–138; BP diastolic 53–68; PULSE 56–79; RESP 10–20; TEMP 36.4–37; O2SAT 97–997; BMI 23.8
[2022-06-18] MEDS: Omeprazole 20 MG CAPSULE.DR PO ×2 (05:14→17:07)
[2022-06-18 05:56] LABS: Anion Gap 15 (12-20); Blood Urea Nitrogen 30 mg/dL (9-16); Calcium 8.2 mg/dL (8.4-10.2); Carbon Dioxide 21 mmol/L (22-29); Chloride 105 mmol/L (96-108); Creatinine Clr Calc Pharmacy 95.1; Estimated Glomerular Filt Rate > 60; Glucose Random 104 mg/dL (60-115); Magnesium 2.2 mg/dL (1.6-2.6); Phosphorus 2.7 mg/dL (2.7-4.5); Potassium 4.1 mmol/L (3.3-5.1); Sodium 137 mmol/L (135-145)
[2022-06-18] MEDS: Rivaroxaban 20 MG TABLET PO (09:06)
[2022-06-18] MEDS: Cholecalciferol (Vitamin D3) 25 MCG TABLET 100 MCG PO (09:06)
[2022-06-18] MEDS: Sertraline HCL 25 MG TABLET PO (09:07)
[2022-06-18] MEDS: gemfibroziL 600 MG TABLET PO ×2 (09:07→20:09)
[2022-06-18] MEDS: Amiodarone HCL 200 MG TABLET PO (09:07)
[2022-06-18] MEDS: carvediloL 6.25 MG TABLET PO ×2 (09:07→20:09)
[2022-06-18] MEDS: Multivitamin TABLET 1 TAB PO (09:07)
[2022-06-18] MEDS: Ascorbic Acid 500 MG TABLET 1000 MG PO ×2 (09:07→20:09)
[2022-06-18] MEDS: Famotidine 20 MG TABLET PO (09:07)
[2022-06-18] MEDS: Aspirin Enteric Coated 81 MG TABLET.DR PO (09:07)
[2022-06-18] MEDS: Remdesivir 100 MG in 0.9 % Sodium Chloride 230 ML 115 MG IV (11:23)
--- NOTE | 2022-06-18 12:00 | P.CONCA_ITS ---
History of Present Illness History of Present Illness Date of Service: 06/18/22 Requesting physician: Hemanth Freedman Consult reason: hypotension Chief complaint: Hypotension Narrative: I was consulted to see Denzel in cardiology consultation today for management of his heart failure medications. He is a 62-year-old male with significant past cardiac history and complex cardiac history with delayed cardiac evaluation due to his recurrent GI issues in the past. He has severe ischemic cardiomyopathy with severe triple-vessel coronary artery disease with chronically occluded RCA and LAD with nonviable myocardium in that territory and proximal circumflex disease of 75%, no interventions performed, congestive heart failure syndrome, diabetes, amputations related to vascular disease, paroxysmal atrial fibrillation, chronic anemia. Patient came to the hospital as he noted that his blood pressure is gradually getting lower at home with taking his medication and then on the day of presentation he had measured his blood pressure at 60 sy stolic not feeling well and came to the emergency room. In the emergency room he was felt to be dehydrated and was having acute kidney injury. He was hydrated his medications were held and since then his blood pressures improved. His kidney functions have improved. This morning his carvedilol was restarted along with amiodarone and Xarelto. He is also on aspirin gemfibrozil. He has had no overt bleeding issues. He said he recently been diagnosed with positive COVID but had no significant issues related to with no poor appetite, nausea, vomiting. Mild sore throat. He has been drinking adequate amount of fluids as per him. Currently denies any shortness of breath, orthopnea, PND, chest pain, palpitation, lightheadedness, syncope. Review of Systems Constitutional: Constitutional: Denies body ache(s), Denies chills, Denies fever(s), Reports lethargy and Reports weakness Eyes: Eyes: Reports no additional eye complaints Cardiovascular: Cardiovascular: Denies chest pain, Denies leg edema, Reports lightheadedness, Denies Loss of Consciousness, Denies palpitations, Denies dyspnea and Denies orthopnea Respiratory: Respiratory: Reports no additional respiratory complaints and Denies dyspnea Gastrointestinal: Gastrointestinal: Reports no additional gastrointestinal complaints Genitourinary: Genitourinary: Reports no additional male genitourinary complaints Musculoskeletal: Musculoskeletal: Reports no additional musculoskeletal complaints Integumentary/Breasts: Skin/Breast: Reports system reviewed and no additional complaints, except as docu Neurologic: Reports system reviewed and no additional complaints, except as documented and Reports weakness Psychiatric: Psychiatric: Reports no additional psychiatric complaints Endocrine: Endocrine: Reports no additional endocrine complaints and Denies palpitations PMFSH Past Medical History Medical History (Updated 06/18/22 @ 12:12 by Haja Mullins MD) Abdominal wall abscess Acute appendicitis CVA (cerebral vascular accident) Diabetes Diabetes mellitus Heart failure with reduced ejection fraction History of left below knee amputation HTN (hypertension) Paroxysmal atrial fibrillation Family History Family History Father Stroke Aortic valve replaced Mother No problems noted. Surgical History Surgical History H/O exploratory laparotomy H/O right hemicolectomy History of transmetatarsal amputation of right foot Hx of cholecystectomy Social History Social History Household Members: None Household Members Other:: Mother- takes care of her Housing: House Do you presently have visiting nurse or other home services: No Unable to assess alcohol history related to: Unknown Alcohol intake: former Patient Tobacco Use Status: Former Tobacco user Advance Directives Date on File: 01/06/21 service: No Current occupational status: retired and disabled Meds Allergies Allergy/AdvReac Type Severity Reaction Status Date / Time vancomycin [VANCOMYCIN] Allergy Severe STOMACH Verified 04/07/22 14:32 UPSET, ill Active Medications: Current Medications Amiodarone HCl (Amiodarone Hcl 200 Mg Tablet) 200 mg PO DAILY [facility] Last Admin: 06/18/22 09:07 Dose: 200 mg Ascorbic Acid (Ascorbic Acid 500 Mg Tablet) 1,000 mg PO BID [facility] Last Admin: 06/18/22 09:07 Dose: 1,000 mg Aspirin (Aspirin Enteric Coated 81 Mg Tablet.Dr) 81 mg PO DAILY [facility] Last Admin: 06/18/22 09:07 Dose: 81 mg Carvedilol (Carvedilol 6.25 Mg Tablet) 6.25 mg PO BID [facility]; Protocol Last Admin: 06/18/22 09:07 Dose: 6.25 mg Famotidine (Famotidine 20 Mg Tablet) 20 mg PO DAILY [facility] Last Admin: 06/18/22 09:07 Dose: 20 mg Gemfibrozil (Gemfibrozil 600 Mg Tablet) 600 mg PO BID [facility] Last Admin: 06/18/22 09:07 Dose: 600 mg Remdesivir 100 mg/ Sodium (Chloride) 230 mls @ 115 mls/hr IV Q24H [facility] Stop: 06/20/22 13:59 Last Admin: 06/18/22 11:23 Dose: 115 mls/hr Multivitamins/Vitamin C (Multivitamin Tablet) 1 tab PO DAILY [facility] Last Admin: 06/18/22 09:07 Dose: 1 tab Omeprazole (Omeprazole 20 Mg Capsule.Dr) 20 mg PO BID@0630,1630 [facility] Last Admin: 06/18/22 05:14 Dose: 20 mg Rivaroxaban (Rivaroxaban 20 Mg Tablet) 20 mg PO DAILY [facility] Last Admin: 06/18/22 09:06 Dose: 20 mg Sertraline HCl (Sertraline Hcl 25 Mg Tablet) 25 mg PO DAILY [facility] Last Admin: 06/18/22 09:07 Dose: 25 mg Vitamin D (Cholecalciferol (Vitamin D3) 25 Mcg Tablet) 100 mcg PO DAILY [facility] Last Admin: 06/18/22 09:06 Dose: 100 mcg Zolpidem Tartrate (Zolpidem Tartrate 5 Mg Tablet) 10 mg PO BEDTIME PRN PRN Reason: Sleep Home Medications Medication Instructions Recorded Confirmed Last Taken Type amiodarone 200 mg tablet 200 mg PO DAILY 05/07/21 06/16/22 05/25/22 History spironolactone 25 mg tablet 25 mg PO DAILY 05/07/21 06/16/22 05/25/22 History omeprazole 20 mg capsule,delayed 1 cap PO BID 07/03/21 06/16/22 05/25/22 History release furosemide 40 mg tablet 40 mg PO BID 04/07/22 06/16/22 05/25/22 History multivitamin 1 tab PO DAILY 04/07/22 06/16/22 05/25/22 History rivaroxaban 20 mg tablet (Xarelto) 20 mg PO DAILY 04/07/22 06/16/22 05/25/22 History zolpidem 10 mg tablet 10 mg PO BEDTIME PRN Sleep 04/07/22 06/16/22 05/25/22 History gemfibrozil 600 mg tablet 600 mg PO BID 05/26/22 06/16/22 05/25/22 History aspirin 81 mg tablet,delayed 81 mg PO DAILY 06/16/22 06/16/22 Unknown History release metoprolol tartrate 25 mg tablet 1 tab PO BID 06/16/22 06/16/22 Unknown History valsartan 80 mg tablet 1 tab PO DAILY 06/16/22 06/16/22 Unknown History Physical Exam Vital Signs: Vital Signs: Last Vital Signs Temp 98.2 F 06/18/22 08:00 Pulse 67 06/18/22 08:00 Resp 15 06/18/22 08:00 BP 131/59 L 06/18/22 08:00 Pulse Ox 98 06/18/22 08:00 O2 Del Method 06/18/22 08:00 BMI result Body Mass Index 23.8 Const: General: cooperative, comfortable, no acute distress, alert and awake Nutritional Appearance: thin Orientation/consciousness: patient oriented x3 HEENT: Head: Yes normocephalic and Yes atraumatic Neck: Neck: Yes trachea midline and Yes no JVD Resp: Effort & Inspection: normal respiratory effort Auscultation: clear to auscultation bilaterally Cardio: Jugular venous distension: no JVD Palpation: abnormal PMI displaced PMI Rate: regular rate Rhythm: regular rhythm Heart sounds: S1 normal heart sound present, S2 normal heart sound present, no click, no gallops, no murmurs and no rubs GI: Auscultation: normal bowel sounds Neuro: General: patient oriented x3 and no focal motor deficits Extrem: General: Yes no clubbing, cyanosis or edema Objective Labs and Meds Result diagrams: 06/17/22 05:16 06/18/22 05:27 Lab results: Laboratory Results - last 24 hr 06/18/22 05:27 Sodium 137 Potassium 4.1 Chloride 105 Carbon Dioxide 21 L Anion Gap 15 BUN 30 H Creatinine 0.95 Estim Creat Clear Calc 95.1 Estimated GFR > 60 Random Glucose 104 D Calcium 8.2 L Phosphorus 2.7 Magnesium 2.2 Assessment and Plan (1) Acute hypotension: Status: Acute Acute hypertension most likely related to relative hypovolemia and patient with poor myocardial function and possibly poor myocardial reserve along with severe coronary artery disease as well as possibly component of autonomic dysfunction related to diabetes. This is not resolved with hydration holding his medication. Blood pressure is now adequate. This is going be a very difficult problem to resolve for this patient. Continue maintain adequate hydration without significant salt loading was discussed with him. Agree with restarting carvedilol therapy. If he tolerates carvedilol therapy and blood pressure is adequate and above 110 systolic can add low-dose valsartan 20 mg b.i.d.. Patient monitor his blood pressure regularly at home and hold his medication when his blood pressure is low. Advised to maintain a log. Will eventually get him on a proper dose of regimen of medications. Intolerance to neurohormonal modulation patient with advanced systolic dysfunction is a poor prognostic sign. This was discussed with him. (2) Ischemic cardiomyopathy: Status: Acute Severe ischemic cardiomyopathy with chronically occluded RCA and LAD with nonviable myocardium. Management was discussed. Currently not in heart failure. Discussed heart failure management and symptoms. He notices when he gets fluid overload. We can use Lasix on a p.r.n. basis. Avoidance of salt loading was discussed. Slow up titration of his neurohormonal modulation was discussed importance of neurohormonal modulation was discussed as well. Hold off on Aldactone therapy for now (3) Paroxysmal atrial fibrillation: Status: Acute Paroxysmal atrial fibrillation has remained suppressed on amiodarone therapy. Has done very well with rhythm control approach will continue to pursue rhythm control approach. Continue amiodarone therapy. Agree with oral anticoagulation with Xarelto. However I do not need to see a need for concomitant aspirin therapy at this will only increase his bleeding risk and is already anemic. Discontinue aspirin therapy (4) CAD (coronary artery disease): Status: Acute CAD with residual chronic disease in circumflex territory which is amenable to revascularization. However patient in the past has declined due to multiple medical issues and hospitalizations. Continue aggressive medical therapy. Hold off on aspirin therapy due to increased bleeding risk. Continue oral anticoagulation. Blood pressure is optimally controlled. Switch gemfibrozil to statin therapy, not sure why he is not on high-intensity statin therapy. Will sign of the case at this point time. Will follow as outpatient. Thank you for allowing us to partake in his care Procedures Date of Service Date of Service: 06/18/22
--- NOTE | 2022-06-18 15:38 | P.PNIM_ITS ---
Subjective Subjective Date of Service: 06/19/22 Interval History: Offers no acute complaints resting comfortably in bed, denies shortness of breath, no chest pain, no palpitation, no lightheadedness, dizziness, no acute events since yesterday, blood pressure is stable. 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 Neck? supple no JVD. CVS? regular rate rhythm, Respiratory lungs clear to auscultation, no respiratory distress, no wheeze, no rhonchi. Gastrointestinal abdomen soft, nontender, bowel sounds audible, no guarding , no rigidity. Extremities left BKA and right TMA Neuro nonfocal , speech clear. Psych appropriate affect Skin no rash/ stage I both buttocks Objective Data Active Medications Amiodarone HCl (Amiodarone Hcl 200 Mg Tablet) 200 mg PO DAILY [facility] Last Admin: 06/18/22 09:07 Dose: 200 mg Documented By: JANE Ascorbic Acid (Ascorbic Acid 500 Mg Tablet) 1,000 mg PO BID [facility] Last Admin: 06/18/22 09:07 Dose: 1,000 mg Documented By: JANE Aspirin (Aspirin Enteric Coated 81 Mg Tablet.) 81 mg PO DAILY [facility] Last Admin: 06/18/22 09:07 Dose: 81 mg Documented By: JANE Carvedilol (Carvedilol 6.25 Mg Tablet) 6.25 mg PO BID [facility]; Protocol Last Admin: 06/18/22 09:07 Dose: 6.25 mg Documented By: JANE Famotidine (Famotidine 20 Mg Tablet) 20 mg PO DAILY [facility] Last Admin: 06/18/22 09:07 Dose: 20 mg Documented By: JANE Gemfibrozil (Gemfibrozil 600 Mg Tablet) 600 mg PO BID [facility] Last Admin: 06/18/22 09:07 Dose: 600 mg Documented By: JANE Remdesivir 100 mg/ Sodium (Chloride) 230 mls @ 115 mls/hr IV Q24H [facility] Stop: 06/20/22 13:59 Last Admin: 06/18/22 11:23 Dose: 115 mls/hr Documented By: JANE Multivitamins/Vitamin C (Multivitamin Tablet) 1 tab PO DAILY [facility] Last Admin: 06/18/22 09:07 Dose: 1 tab Documented By: JANE Omeprazole (Omeprazole 20 Mg Capsule.Dr) 20 mg PO BID@0630,1630 [facility] Last Admin: 06/18/22 05:14 Dose: 20 mg Documented By: RACHAEL Rivaroxaban (Rivaroxaban 20 Mg Tablet) 20 mg PO DAILY [facility] Last Admin: 06/18/22 09:06 Dose: 20 mg Documented By: JANE Sertraline HCl (Sertraline Hcl 25 Mg Tablet) 25 mg PO DAILY [facility] Last Admin: 06/18/22 09:07 Dose: 25 mg Documented By: JANE Vitamin D (Cholecalciferol (Vitamin D3) 25 Mcg Tablet) 100 mcg PO DAILY [facility] Last Admin: 06/18/22 09:06 Dose: 100 mcg Documented By: JANE Zolpidem Tartrate (Zolpidem Tartrate 5 Mg Tablet) 10 mg PO BEDTIME PRN PRN Reason: Sleep Labs CBC & Chem 7: 06/17/22 05:16 06/18/22 05:27 Labs: Laboratory Results - last 24 hr 06/18/22 05:27 Anion Gap 15 Estim Creat Clear Calc 95.1 Estimated GFR > 60 Random Glucose 104 D Calcium 8.2 L Phosphorus 2.7 Magnesium 2.2 Microbiology Microbiology Results: Microbiology 06/16/22 08:27 Blood Culture - Preliminary Blood - Venous No growth after 48 hours. 06/16/22 08:09 Blood Culture - Preliminary Blood - Venous No growth after 48 hours. Assessment and Plan (1) Acute hypotension: Status: Acute (2) Ischemic cardiomyopathy: Status: Acute (3) COVID-19 virus infection: Status: Acute (4) CAD (coronary artery disease): Status: Acute Plan 62-year-old gentleman with past medical history of peripheral arterial disease, coronary artery disease, paroxysmal atrial fibrillation on Xarelto, heart failure with reduced EF diabetes mellitus with multiple amputation recently discharged from [facility] on 06/03 after being admitted for hypovolemic shock, during that hospitalization underwent workup for anemia head EEG D and colonoscopy status post gastric and colon polypectomy, patient came to [facility] due to weakness cough and low blood pressure patient was admitted to ICU where he was empirically treated with IV antibiotics for possible sepsis, treated with IV fluids his hemoglobin was 8.5 platelet was 190 creatinine was 1.8 CRP was 9 troponins were flat lactic acid was 1 COVID test was positive chest x-ray showed no acute disease, patient received 1 unit of packed RBC due to low hemoglobin with history of ischemic cardiomyopathy his echo showed EF 20-25%, since patient blood pressure improved with IV hydration he was transferred down to intermediate care unit for close monitoring of his blood pressure. Hypotension Likely due to multiple antihypertensives and diuretics, All home medications are held including Lasix spironolactone and valsartan Current blood pressure is stable on Coreg if blood pressure allows will resume low-dose valsartan 20 mg b.i.d. COVID-19 infection started on remdesivir oxygenation stable, follow clinical course, continue vitamin-C, vitamin-D and Pepcid Weakness will obtain PT eval patient is adamant he will not go to rehab. Chronic Normocytic Anemia stable hematocrit received 1 unit of packed RBC in ICU due to concern for ischemic cardiomyopathy. Depression diagnosed during last hospitalization continue Zoloft History of paroxysmal atrial fibrillation continue Xarelto , amiodarone and Coreg Stage 1 Pressure ulcers both buttocks continue frequent position, high-protein diet Coronary artery disease with ischemic cardiomyopathy, no chest pain no evidence of CHF, continue Coreg hold diuretics and follow clinical course, cardiology consult obtained for med management Diabetes mellitus stable blood sugars, continue insulin sliding scale Moderate protein calorie malnutrition add protein supplements Hyponatremia sodium 131 on admission, this morning improved to 137 Acute kidney injury secondary to hypovolemia resolved DVT prophylaxis on Xarelto Patient will need continued inpatient hospitalization for close monitoring of blood pressure due to recurrent hospitalization and profound hypotension. Quality Stroke Does the patient have a stroke diagnosis?: No VTE Prior VTE?: No VTE Risk Level:: Medical - moderate - high VTE Device Contraindication: N/A - Device Ordered VTE Drug Contraindication: N/A - Med Ordered
[2022-06-18 16:12] LABS: Glucose, Whole Blood 107 mg/dL (60-115)
[2022-06-18] MEDS: Zolpidem Tartrate 5 MG TABLET 10 MG PO (20:12)
[2022-06-18 20:22] LABS: Glucose, Whole Blood 107 mg/dL (60-115)
[2022-06-19 03:07] VITALS: BP 121/59; PULSE 62; RESP 18; TEMP 36.4; O2SAT 98
[2022-06-19 06:00] VITALS: BMI 24.6
[2022-06-19] MEDS: Omeprazole 20 MG CAPSULE.DR PO (06:07)
[2022-06-19 07:42] VITALS: BP 130/62; PULSE 65; RESP 20; TEMP 36.6; O2SAT 99
[2022-06-19] MEDS: carvediloL 6.25 MG TABLET PO (09:54)
[2022-06-19] MEDS: Rivaroxaban 20 MG TABLET PO (09:54)
[2022-06-19] MEDS: Valsartan 40 MG TABLET 20 MG PO (09:54)
[2022-06-19] MEDS: Famotidine 20 MG TABLET PO (09:55)
[2022-06-19] MEDS: Cholecalciferol (Vitamin D3) 25 MCG TABLET 100 MCG PO (09:55)
[2022-06-19] MEDS: Multivitamin TABLET 1 TAB PO (09:56)
[2022-06-19] MEDS: Sertraline HCL 25 MG TABLET PO (09:56)
[2022-06-19] MEDS: gemfibroziL 600 MG TABLET PO (09:56)
[2022-06-19] MEDS: Ascorbic Acid 500 MG TABLET 1000 MG PO (09:56)
[2022-06-19] MEDS: Amiodarone HCL 200 MG TABLET PO (09:57)
--- NOTE | 2022-06-19 11:08 | MHC.CM.PN ---
pt to be dcd home with a new referral; to [facility] family to transport home
[2022-06-19 11:30] VITALS: BP 130/69; PULSE 70; RESP 20; TEMP 36.6; O2SAT 100
--- NOTE | 2022-06-19 12:35 | PM.PNCARD ---
Subjective Subjective Date of Service: 06/19/22 Principal diagnosis: Hypotension Interval history: Patient blood pressure is optimized at this point time. Has received Coreg and low-dose valsartan today. No symptoms of lightheadedness. Denies any chest pain. No heart failure symptoms Review of Systems Review of Systems Yes all other systems are reviewed and are negative Physical Exam Vital Signs: Last Vital Signs Temp 97.9 F 06/19/22 11:30 Pulse 70 06/19/22 11:30 Resp 20 06/19/22 11:30 BP 130/69 06/19/22 11:30 Pulse Ox 100 06/19/22 11:30 O2 Del Method 06/19/22 11:30 BMI result Body Mass Index 24.6 Const General: cooperative, comfortable, no acute distress, alert and awake Nutritional Appearance: thin Orientation/consciousness: patient oriented x3 Neck Neck: Yes trachea midline and Yes no JVD Resp Effort & Inspection: normal respiratory effort Auscultation: clear to auscultation bilaterally Cardio Jugular venous distension: no JVD Palpation: abnormal PMI displaced PMI Rate: regular rate Rhythm: regular rhythm Heart sounds: S1 normal heart sound present, S2 normal heart sound present, no click, no gallops, no murmurs and no rubs GI Auscultation: normal bowel sounds Neuro General: patient oriented x3 and no focal motor deficits Extrem General: Yes no clubbing, cyanosis or edema Objective Labs and Meds Result diagrams: 06/17/22 05:16 06/18/22 05:27 Lab results: Laboratory Results - last 24 hr 06/16/22 06/18/22 06/18/22 08:27 16:08 20:18 POC Glucose 107 107 Crossmatch (AHG) See Detail Progress Note: A&P Assessment and plan (1) Acute hypotension: Status: Acute Assessment and Plan: Hypotension that is not resolved with IV fluids and holding his medications. Tolerating his usual dose of Coreg and low-dose valsartan. Not tolerating adequate neurohormonal modulation probably due to coronary disease, poor myocardial function or autonomic dysfunction. Avoid Lasix on a regular basis can use Lasix on a p.r.n. basis. Hold off on Aldactone therapy. Advised to monitor blood pressure at home and maintain a log. (2) Ischemic cardiomyopathy: Status: Acute Assessment and Plan: Ischemic cardiomyopathy heart failure intermittent. Has had more admissions with hypovolemia recently. Advise adequate fluid intake. Avoidance of salt loading was discussed. P.r.n. Lasix use. Will gently uptitrate neurohormonal modulation as tolerated. Continue carvedilol and valsartan. Patient can be discharged home later today. Will set up for follow-up as outpatient Time Spent With Patient Time: Total time spent is greater than 50% in coordination of care (as documented) at patient's floor/unit and/or counseling patient: Progress Note: Quality Stroke Does the patient have a stroke diagnosis?: No Procedures Date of Service Date of Service: 06/19/22
--- NOTE | 2022-06-19 14:10 | P.DS_ITS ---
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 Hammond will be admitted to the ICU this morning with hypovolemic shock. The patient is a 62-year-old male w PMHx of diabetes, hypertension, hyperlipidemia, peripheral vascular disease complicated by trans met amputation in 2007 and left BKA in 2015, CAD w ischemic cardiomyopathy with systolic CHF, PAfib on Xarelto, GERD, and insomnia.? 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 Underwent cardiac catheterization in February,.? Found occluded LAD and RCA with collaterals, w severe mid-LCx stenosis.? Normal LVEDP.? V Gram showed dyskinetic apex and akinetic inferior wall.? Recommended cardiac MRI to assess viability, referral for CABG if suitable.? No follow up yet. Last echo 03/2021 showed:? Moderately dilated LV with severe LV systolic dysfunction with EF of 20-25% with grade 2 diastolic dysfunction with underlying RWMAs; moderately dilated LA; [id number] mitral regurgitation; dilated IVC with no inspiratory collapse; and RVSP 49 mm. For the last number of years, the patient had been living with and caring for his parents.? His father about 5 years ago.? Then his mother end of this April.? The patient had been grieving her loss and was significantly depressed, not wanting to eat or drink and lying in bed all the time.? He was brought [facility] on May 26 with weakness and hypovolemic shock, with ARF, BUN/creat 170/4.1.? He was hospitalized here for 10 days, treated primarily with slow IV hydration.? During that hospitalization, he: - was also treated with a brief course of empiric abx for sepsis ?- was found to be anemic, with brown guiac positive stool.? He underwent EGD and colonoscopy.? EGD showed an inflamed gastric polyp, which was snared.? Colonoscopy showed a patent ileocolonoc anstamosis; he had mult polyps which were removed. ?- had acute thrombocytopenia, thought 2? critical illness. ?- was found on admission to have a stage 2 sacrococcygeal pressure ulcer.? Treated in the usual fashion. ?- was thought to have at least moderate protein calorie malnutrition.? He was given TPN for a few days. - had a very hypoanimated affect and was felt to have depression, and was started on Zoloft and Provigil. He was discharged on 06/05 to a SNF for rehab. Following that, the patient was admitted to [facility] from 06/08- 06/10/2022 for painless bright red blood per rectum.? Admission hemoglobin was 9.8.? He underwent repeat colonoscopy which revealed a 20 mm ulcer at the base of the previous polyp removal site.? Bleeding was controlled with cautery and the vessel was clipped.? He was transfused 1 unit of blood.? At that hospitalization, the patient was found to have low blood pressures which were thought due to intravascular volume depletion and his Coreg, valsartan, and Lasix.? BUN/creatinine were 33/1.0.? The medications were held and he was given gentle IV hydration.? The ptient was discharged on 06/10 to home, with a Hb of 8.2, platelet count of 213K, BUN/creat 23/0.6.? He was scheduled to restart his Xarelto on 06/15.? The patient tell me that he lives alone.? His brother lives next door though and spends most of his time in Denzel?s house.? The patient does his own cooking.? The brother does the shopping and often Denzel goes with him.? Outside the house, Denzel gets around in a wheelchair. HISTORY OF PRESENT ILLNESS:? The patient was BIBA this morning for evaluation of weakness, cough, and low blood pressure.? The patient reported that that he has been feeling weak since yesterday, and had developed a cough productive of yellow sputum and was feeling very weak.? He had nausea but no vomiting.? He took a COVID-19 test yesterday and it was positive.? The patient is not vaccinated for COVID-19.? The patient took his blood pressure this morning and it was 71/40, so he called the ambulance. In the ED, he was A&O and appropriate.? Very pale.? Clear chest.? Benign abdomen.? Brown, heme neg stool on rectal exam.? Labs in the ED were notable for white count 5.9, hemoglobin 8.5, platelet count 190.? Sodium was 131, BUN/creatinine 48/1.8, bicarb 21, potassium 4.5.? CRP was 9.0, albumin was 3.2, Troponin was 35, and follow-up was 25.? Lactic acid was 1.0. The patient was given Abx and a limited fluid bolus of 1liter, given his h/o heart failure. ?He was transfused 1 unit of blood, given his hemoglobin and his ischemic cardiomyopathy.? Echo done by the [facility], showed severe LV dysfxn w EF 20-25% with RWMAs, and grade 1 DDx.? RV cavity size is mildly increased with mild to moderately decreased RV systolic function.? There was at least 1+ MR.? There was no significant TR envelope.? The inferior vena cava was normal sized with about 50% insp collapse. The patient was admitted to the ICU, and fluid resuscitation was continued.? The patient is fully alert and oriented, significantly more animated than he was at his last admission.? Afebrile.? Heart rate 68, sinus rhythm.? Blood pressure 93/46.? Breathing easy with sat 100% on room air.? Mucous membranes look dry.? No jugular venous distention with the head of the bed at 30 degrees.? No edema whatsoever. He has stage I pressure sores on both buttocks.? Hospital course 62-year-old gentleman with past medical history of peripheral arterial disease, coronary artery disease, paroxysmal atrial fibrillation on Xarelto, heart failure with reduced EF diabetes mellitus with multiple amputation recently discharged from [facility] on 06/03 2nd after being admitted for hypovolemic shock, during that hospitalization underwent workup for anemia had EGD and colonoscopy, status post gastric and colon polypectomy, on this occasion patient came to [facility] due to weakness, cough and low blood pressure patient was admitted ICU where he was empirically treated with IV antibiotics for possible sepsis, treated with IV fluids his hemoglobin was 8.5 platelet was 190 creatinine was 1.8 CRP was 9 troponins were flat lactic acid was 1 COVID test was positive, chest x-ray showed no acute disease, patient received 1 unit of packed RBC due to low hemoglobin with history of ischemic cardiomyopathy, his echo showed EF 20-25%, since patient blood pressure improved with IV hydration he was transferred down to intermediate care unit for close monitoring of his blood pressure. Acute profound Hypotension patient initially admitted to intensive care unit and treated with IV fluids, midodrine, and received 1 unit of packed RBC, all antihypertensive medications were held patient blood pressure improved he was restarted back on Coreg, And was subsequently transitioned down to telemetry unit for blood pressure remains stable therefore low-dose valsartan 20 mg twice daily has been started patient blood pressure remains stable, cardiology consult was obtained Dr. Briggs agrees to hold diuretics and to use Lasix as needed since patient remains hemodynamically stable he is being discharged home with [facility] services for close blood pressure monitoring In regard to COVID-19 infection patient remains stable with no hypoxia, he was treated with IV remdesivir but since oxygenation is stable it has been discontinued he has been recommended to rest take cough medication as needed. Chronic Normocytic Anemia stable hematocrit received 1 unit of packed RBC in ICU due to concern for ischemic cardiomyopathy. Depression diagnosed during last hospitalization continue Zoloft, no acute symptoms of depression noted History of paroxysmal atrial fibrillation continue Xarelto , amiodarone and Coreg. Stage 1 Pressure ulcers both buttocks? continue frequent position change and, high-protein diet recommended Coronary artery disease with ischemic cardiomyopathy, patient noted to have no evidence of acute congestive heart failure he has been continued on Coreg and recommended close outpatient follow-up with Cardiology patient is on Lopid for a long time, does not remember to be on statins, recommending to discuss with primary care physician and use statins if no prior side effects noted . Diabetes mellitus stable blood sugars, Moderate protein calorie malnutrition recommend protein supplements Hyponatremia resolved. Acute kidney injury secondary to hypovolemia resolved Time Spent with Patient Time attestation: Total time spent providing and/or coordinating discharge services: Discharge coordination time: Greater than 30 minutes Quality: Safe Use of Opioids Does Pt have an Active Cancer Diagnosis on the Problem List?: No Quality: Stroke Does the patient have a stroke diagnosis?: No Physical Exam Vital Signs: Vital Signs: Last Vital Signs Temp 97.9 F 06/19/22 11:30 Pulse 70 06/19/22 11:30 Resp 20 06/19/22 11:30 BP 130/69 06/19/22 11:30 Pulse Ox 100 06/19/22 11:30 O2 Del Method 06/19/22 11:30 BMI result Body Mass Index 24.6 Const: Other: General awake alert ,no acute distress.? Neck? supple no JVD. CVS? regular rate rhythm, Respiratory lungs clear to auscultation, no respiratory distress, no wheeze, no rhonchi. Gastrointestinal abdomen soft, nontender, bowel sounds audible, no guarding , no rigidity. Extremities left BKA and right TMA Neuro nonfocal , speech clear. Psych appropriate affect Skin no rash/ stage I both buttocks DS: Data Data Completed and Pending Completed studies during hospitalization [Text1]: Procedures Control Bleeding in Gastrointestinal Tract, Via Natural or Artificial Opening Endoscopic (05/26/22) Drainage of Abdomen Subcutaneous Tissue and Fascia, Open Approach (07/03/21) Drainage of Abdominal Wall with Drainage Device, Percutaneous Approach (05/26/21) Drainage of Retroperitoneum with Drainage Device, Percutaneous Approach (12/22/20) Drainage of Retroperitoneum, Percutaneous Endoscopic Approach (12/22/20) Drainage of Right Abdomen Muscle, Open Approach (05/26/21) Excision of Right Large Intestine, Via Natural or Artificial Opening Endoscopic, Diagnostic (05/26/22) Excision of Stomach, Pylorus, Via Natural or Artificial Opening Endoscopic, Diagnostic (05/26/22) Introduction of Vasopressor into Peripheral Vein, Percutaneous Approach (05/26/22) Irrigation of Peritoneal Cavity using Irrigating Substance, Percutaneous Approach (05/26/21) Transfusion of Nonautologous Red Blood Cells into Peripheral Vein, Percutaneous Approach (05/26/22) Labs on day of discharge: Laboratory Results - last 24 hr 06/16/22 06/18/22 06/18/22 08:27 16:08 20:18 POC Glucose 107 107 Crossmatch (AHG) See Detail Preliminary micro results at discharge 06/16/22 08:27 Blood Culture - Preliminary Blood - Venous No growth after 48 hours. 06/16/22 08:09 Blood Culture - Preliminary Blood - Venous No growth after 48 hours. Discharge Plan Discharge Patient Disposition: Home Health Service Discharge Diagnosis: Hypotension COVID-19 infection Referrals: lg sheets [Other] - 1 Week Connor Mcdaniel MD [Primary Care Provider] - 1 Week Discharge Medications: New valsartan 40 mg tablet 20 mg PO BID Qty: 60 0RF Continued carvedilol 6.25 mg Tablet 6.25 mg PO BID Qty: 60 0RF Protocol: Hold for SBP/HR < HOLD for SBP < : 90 HOLD for HR < : 60 amiodarone 200 mg tablet 200 mg PO DAILY omeprazole 20 mg capsule,delayed release(DR/EC) 1 cap PO BID Xarelto 20 mg tablet 20 mg PO DAILY gemfibrozil 600 mg Tablet 600 mg PO BID sertraline 25 mg Tablet 25 mg PO DAILY Qty: 30 0RF zolpidem 10 mg tablet 10 mg PO BEDTIME PRN (Reason: Sleep) multivitamin Tablet 1 tab PO DAILY Discontinued valsartan 80 mg tablet 1 tab PO DAILY metoprolol tartrate 25 mg tablet 1 tab PO BID aspirin [Aspir-81] 81 mg Tablet,Delayed Release (Dr/Ec) 81 mg PO DAILY spironolactone 25 mg tablet 25 mg PO DAILY Protocol: Hold for SBP< HOLD for SBP < : 90 furosemide 40 mg tablet 40 mg PO BID Discharge Orders: Discharge Order (Routine); Ordered 06/19/22 Ordered By: Hemanth Freedman Diet: Low fat, low cholesterol Activity on Discharge: As tolerated Stand Alone Forms: Patient Portal Discharge page Care Plan Goals: Low blood pressure resolved, stop Lasix, and spironolactone, dose of valsartan reduced to 20 mg twice daily, follow blood pressure closely Call primary care physician if noted to have bilateral lower extremity edema, rapid weight gain , returned to [facility] with symptoms of shortness of breath, chest pain or palpitation. Recommend to follow-up with primary care physician and to consider statins, patient is not aware if he was on statins before or had any side effects. Health Concerns: Recurrent bout of hypotension monitor blood pressure closely, have close follow- up with primary care physician and Cardiology Plan of Treatment: Outpatient follow-up with primary care physician and Cardiology in 1-2 weeks Assessment: As per discharge summary
== END 2022-06-19 13:20 | disposition home health service (06) | DRG 312 ==
LOC: HO.ED 10:21 → HO.EDOVER 10:33 → HO.ICU 11:19 → HO.IMC 06-18 12:45
PROVIDERS: Admitting Provider Anesthesiology; Emergency Provider Emergency Medicine Emergency Medical Services; PCP Internal Medicine; Visit Provider Hospitalist
DX: I95.2 Hypotension due to drugs (principal); U07.1 COVID-19; R57.1 Hypovolemic shock; N17.9 Acute kidney failure, unspecified; E87.1 Hypo-osmolality and hyponatremia; E44.0 Moderate protein-calorie malnutrition; I50.22 Chronic systolic (congestive) heart failure; I25.5 Ischemic cardiomyopathy; Z89.512 Acquired absence of left leg below knee; I25.10 Atherosclerotic heart disease of native coronary artery without angina pectoris; I48.0 Paroxysmal atrial fibrillation; L89.321 Pressure ulcer of left buttock, stage 1; L89.311 Pressure ulcer of right buttock, stage 1; T50.2X5A Adverse effect of carbonic-anhydrase inhibitors, benzothiadiazides and other diuretics, initial encounter; D64.9 Anemia, unspecified; E11.51 Type 2 diabetes mellitus with diabetic peripheral angiopathy without gangrene; F32.A Depression, unspecified; K21.9 Gastro-esophageal reflux disease without esophagitis; Z68.24 Body mass index [BMI] 24.0-24.9, adult; Z87.891 Personal history of nicotine dependence; Z79.899 Other long term (current) drug therapy
CPT/HCPCS: 36415; 36430; 71045; 80048; 80053; 81003; 82040; 82947; 83605; 83690; 83735; 83880; 84100; 84300; 84484; 85014; 85018; 85025; 85027; 85610; 85730; 86140; 86850; 86900; 86901; 86920; 86922; 87040; 87635; 93005; 93306; 96361; 96374; 99285; C1758; J0248; J2543; J3475; P9016; Q9957

== ENCOUNTER 2022-06-23 06:49 | Inpatient (IN) | payer MEDICARE, SELFPAY ==
[2022-06-23] VITALS (12 sets, daily range): BP systolic 104–163; BP diastolic 49–73; PULSE 64–75; RESP 14–18; TEMP 36.4–36.8; O2SAT 98–100; BMI 24.2; BMI 24.0
--- NOTE | 2022-06-23 07:06 | ECG_ITS ---
Test Reason : gi bleed Blood Pressure : / mmHG Vent. Rate : 065 BPM Atrial Rate : 065 BPM P-R Int : 188 ms QRS Dur : 116 ms QT Int : 414 ms P-R-T Axes : 045 -63 047 degrees QTc Int : 430 ms Normal sinus rhythm Left axis deviation Inferior infarct (cited on or before 19-MAR-2019) Anterolateral infarct (cited on or before 19-MAR-2019) Abnormal ECG When compared with ECG of 16-JUN-2022 07:53, QT has shortened Referred By: Katya Parish Electronically Signed By:PEDRO BOSWELL
--- NOTE | 2022-06-23 07:13 | ED.GENADULT ---
HPI - General Adult General Chief complaint: General Medical Stated complaint: BLOOD IN STOOL Time Seen by Provider: 06/23/22 07:06 Source: patient Mode of arrival: EMS History of Present Illness HPI narrative: 62-year-old male with history of CAD, ischemic cardiomyopathy, diabetes, GI bleed who presents via EMS with 2 episodes of ?filling the toilet bowl with blood?. Patient states that he has been taken off of his blood thinners despite having diagnosis of paroxysmal atrial fibrillation due to the GI bleed that he has been experiencing. Patient states he did undergo colonoscopy. Patient states his systolic blood pressure typically ranges between 108-120. Related Data Home Medications Medication Instructions Recorded Confirmed amiodarone 200 mg tablet 200 mg PO DAILY 05/07/21 06/16/22 omeprazole 20 mg capsule,delayed 1 cap PO BID 07/03/21 06/16/22 release multivitamin 1 tab PO DAILY 04/07/22 06/16/22 rivaroxaban 20 mg tablet (Xarelto) 20 mg PO DAILY 04/07/22 06/16/22 zolpidem 10 mg tablet 10 mg PO BEDTIME PRN Sleep 04/07/22 06/16/22 gemfibrozil 600 mg tablet 600 mg PO BID 05/26/22 06/16/22 Previous Rx's Medication Instructions Recorded carvedilol 6.25 mg tablet 6.25 mg PO BID #60 tabs 04/10/21 sertraline 25 mg tablet 25 mg PO DAILY #30 tabs 06/04/22 valsartan 40 mg tablet 20 mg PO BID #60 tabs 06/19/22 Allergies Allergy/AdvReac Type Severity Reaction Status Date / Time vancomycin [VANCOMYCIN] Allergy Severe STOMACH Verified 06/23/22 06:56 UPSET, ill Review of Systems Review of Systems: Pertinent positives and negatives as stated in HPI 10 point review of systems is otherwise negative. [facility] Past Medical History Source: nursing notes reviewed Medical History Abdominal wall abscess Acute appendicitis CVA (cerebral vascular accident) Diabetes Diabetes mellitus Heart failure with reduced ejection fraction History of left below knee amputation HTN (hypertension) Paroxysmal atrial fibrillation Surgical History H/O exploratory laparotomy H/O right hemicolectomy History of transmetatarsal amputation of right foot Hx of cholecystectomy Family History Family History Father Stroke Aortic valve replaced Mother No problems noted. Social History Social History Household Members: None Household Members Other:: Mother- takes care of her Housing: House Do you presently have visiting nurse or other home services: No Unable to assess alcohol history related to: Unknown Alcohol intake: former Patient Tobacco Use Status: Former Tobacco user Advance Directives: Yes Advance Directives on File: Yes Advance Directives Date on File: 01/06/21 service: No Current occupational status: retired and disabled Physical Exam ED Vital Signs: Vital Signs - 24 hr 06/23/22 06:52 06/23/22 07:40 Pulse Rate 74 64 Respiratory Rate 16 14 Blood Pressure 104/49 L 115/53 L Pulse Oximetry 98 100 Oxygen Delivery Method Room Air Room Air BMI result Body Mass Index 24.2 VITAL SIGNS: Reviewed. GENERAL: Chronically-ill, fragile,, in no acute distress. HEAD: Normocephalic/atraumatic EYES: PERRLA, EOMI, conjunctival pallor EARS: Ext canals without abnormality OROPHARYNX: no oral lesions noted, posterior pharynx clear, pale mucosa NECK: Supple, no adenopathy LUNGS: Normal breath sounds. No adventitious sounds or accessory muscle use. SpO2<98> CARDIOVASCULAR: Regular rate and rhythm without noted murmurs, no JVD or lower extremity edema. ABDOMEN: Soft, non-tender, non-distended with bowel sounds. ZACK: Soft stool in the rectal vault that appears maroon in color MUSCULOSKELETAL: No tenderness, deformities, or effusions noted on gross inspection. EXTREMITIES: No cyanosis, clubbing or edema, left lower extremity prosthesis after BKA.. SKIN: Inspection of the skin reveals no rashes, pallor and poor skin turgor, noted sacral decubitus at the coccyx NEUROLOGIC: Alert and oriented x 4. Strength and sensation to light touch were grossly intact x 4. Course Course Course Narrative: 62-year-old male with history and clinical presentation most suggestive GI bleed. Review of all investigations consistent with most likely lower GI bleed, patient has had no further incidence down here, I discussed the case with Gastroenterology who is aware of this patient, patient is otherwise hemodynamically stable, will obtain consent and transfuse 1 unit. I also discussed this case with the inpatient hospitalist who accepts admission. Medical Decision Making Lab Data Result diagrams: 06/23/22 07:06/23/22 07:29 Labs: Lab Results 06/23/22 06/23/22 06/23/22 Range/Units 07:29 07:29 07:29 WBC 6.6 (4.8-10.8) X10*3/uL RBC 2.79 L (4.60-5.80) X10*6/uL Hgb 8.5 L (14.0-18.0) g/dl Hct 24.8 L (42.0-52.0) % MCV 88.9 (80.0-98.0) fL MCH 30.5 (27.0-33.0) pg MCHC 34.3 (31.0-36.0) g/dl RDW 15.2 (11.0-16.0) % Plt Count 201 (160-400) X10*3/uL MPV 10.1 (9.4-12.4) fL Immature Gran % (Auto) Cancelled Neut % (Auto) Cancelled Lymph % (Auto) Cancelled [place] % (Auto) Cancelled Eos % (Auto) Cancelled Baso % (Auto) Cancelled Lymph # (Auto) Cancelled [place] # (Auto) Cancelled Eos # (Auto) Cancelled Baso # (Auto) Cancelled Abs Immat Gran (auto) Cancelled Absolute Neuts (auto) Cancelled Absolute Nucleated RBC 0.000 (0.0-0.012) X10*3/uL Nucleated RBC % (auto) 0.0 (0.0-0.2) /100WBC Neutrophils % (Manual) 65 (45-73) % Band Neutrophils % 4 (3-5) % Lymphocytes % (Manual) 18 L (20-40) % Monocytes % (Manual) 4 (2-11) % Eosinophils % (Manual) 6 H (0-4) % Metamyelocytes % 3 % Abs Neuts (Manual) 4.6 (2.0-8.3) X10*3/uL Lymphocytes # (Manual) 1.2 (1.2-4.9) X10*3/uL Monocytes # (Manual) 0.3 (0.1-1.2) X10*3/uL Eosinophils # (Manual) 0.4 (0.0-0.4) X10*3/uL Metamyelocytes # 0.2 X10*3/uL Platelet Estimate NORMAL (NORMAL) Plt Morphology Comment NORMAL RBC Morphology NORMAL PT 12.5 (10.0-13.1) SEC INR 1.1 (0.9-1.1) Sodium 137 (135-145) mmol/L Potassium 4.7 (3.3-5.1) mmol/L Chloride 106 (96-108) mmol/L Carbon Dioxide 20 L (22-29) mmol/L Anion Gap 16 (12-20) BUN 27 H (9-16) mg/dL Creatinine 0.94 (0.5-1.4) mg/dL Estim Creat Clear Calc 96.1 Estimated GFR > 60 Random Glucose 130 H (60-115) mg/dL Calcium 8.5 (8.4-10.2) mg/dL Total Bilirubin 0.3 (0.0-1.0) mg/dL AST 29 (5-37) U/L ALT 24 (0-40) U/L Alkaline Phosphatase 115 D (39-117) U/L Troponin I High Sens (<3.5-35.0) ng/L Total Protein 6.3 L (6.5-8.0) g/dL Albumin 3.6 (3.5-5.0) g/dL Lipase 85 H (8-78) U/L Stool Occult Blood (NEGATIVE) COVID-19 (CAROLINE) (Negative) COVID-19 Clin Com Blood Type Antibody Screen 06/23/22 06/23/22 06/23/22 Range/Units 07:29 07:29 07:29 WBC (4.8-10.8) X10*3/uL RBC (4.60-5.80) X10*6/uL Hgb (14.0-18.0) g/dl Hct (42.0-52.0) % MCV (80.0-98.0) fL MCH (27.0-33.0) pg MCHC (31.0-36.0) g/dl RDW (11.0-16.0) % Plt Count (160-400) X10*3/uL MPV (9.4-12.4) fL Immature Gran % (Auto) Neut % (Auto) Lymph % (Auto) [place] % (Auto) Eos % (Auto) Baso % (Auto) Lymph # (Auto) [place] # (Auto) Eos # (Auto) Baso # (Auto) Abs Immat Gran (auto) Absolute Neuts (auto) Absolute Nucleated RBC (0.0-0.012) X10*3/uL Nucleated RBC % (auto) (0.0-0.2) /100WBC Neutrophils % (Manual) (45-73) % Band Neutrophils % (3-5) % Lymphocytes % (Manual) (20-40) % Monocytes % (Manual) (2-11) % Eosinophils % (Manual) (0-4) % Metamyelocytes % % Abs Neuts (Manual) (2.0-8.3) X10*3/uL Lymphocytes # (Manual) (1.2-4.9) X10*3/uL Monocytes # (Manual) (0.1-1.2) X10*3/uL Eosinophils # (Manual) (0.0-0.4) X10*3/uL Metamyelocytes # X10*3/uL Platelet Estimate (NORMAL) Plt Morphology Comment RBC Morphology PT (10.0-13.1) SEC INR (0.9-1.1) Sodium (135-145) mmol/L Potassium (3.3-5.1) mmol/L Chloride (96-108) mmol/L Carbon Dioxide (22-29) mmol/L Anion Gap (12-20) BUN (9-16) mg/dL Creatinine (0.5-1.4) mg/dL Estim Creat Clear Calc Estimated GFR Random Glucose (60-115) mg/dL Calcium (8.4-10.2) mg/dL Total Bilirubin (0.0-1.0) mg/dL AST (5-37) U/L ALT (0-40) U/L Alkaline Phosphatase (39-117) U/L Troponin I High Sens 11.9 D (<3.5-35.0) ng/L Total Protein (6.5-8.0) g/dL Albumin (3.5-5.0) g/dL Lipase (8-78) U/L Stool Occult Blood (NEGATIVE) COVID-19 (CAROLINE) Positive A (Negative) COVID-19 Clin Com See Note Blood Type O Negative Antibody Screen NEGATIVE 06/23/22 Range/Units 07:32 WBC (4.8-10.8) X10*3/uL RBC (4.60-5.80) X10*6/uL Hgb (14.0-18.0) g/dl Hct (42.0-52.0) % MCV (80.0-98.0) fL MCH (27.0-33.0) pg MCHC (31.0-36.0) g/dl RDW (11.0-16.0) % Plt Count (160-400) X10*3/uL MPV (9.4-12.4) fL Immature Gran % (Auto) Neut % (Auto) Lymph % (Auto) [place] % (Auto) Eos % (Auto) Baso % (Auto) Lymph # (Auto) [place] # (Auto) Eos # (Auto) Baso # (Auto) Abs Immat Gran (auto) Absolute Neuts (auto) Absolute Nucleated RBC (0.0-0.012) X10*3/uL Nucleated RBC % (auto) (0.0-0.2) /100WBC Neutrophils % (Manual) (45-73) % Band Neutrophils % (3-5) % Lymphocytes % (Manual) (20-40) % Monocytes % (Manual) (2-11) % Eosinophils % (Manual) (0-4) % Metamyelocytes % % Abs Neuts (Manual) (2.0-8.3) X10*3/uL Lymphocytes # (Manual) (1.2-4.9) X10*3/uL Monocytes # (Manual) (0.1-1.2) X10*3/uL Eosinophils # (Manual) (0.0-0.4) X10*3/uL Metamyelocytes # X10*3/uL Platelet Estimate (NORMAL) Plt Morphology Comment RBC Morphology PT (10.0-13.1) SEC INR (0.9-1.1) Sodium (135-145) mmol/L Potassium (3.3-5.1) mmol/L Chloride (96-108) mmol/L Carbon Dioxide (22-29) mmol/L Anion Gap (12-20) BUN (9-16) mg/dL Creatinine (0.5-1.4) mg/dL Estim Creat Clear Calc Estimated GFR Random Glucose (60-115) mg/dL Calcium (8.4-10.2) mg/dL Total Bilirubin (0.0-1.0) mg/dL AST (5-37) U/L ALT (0-40) U/L Alkaline Phosphatase (39-117) U/L Troponin I High Sens (<3.5-35.0) ng/L Total Protein (6.5-8.0) g/dL Albumin (3.5-5.0) g/dL Lipase (8-78) U/L Stool Occult Blood POSITIVE (NEGATIVE) COVID-19 (CAROLINE) (Negative) COVID-19 Clin Com Blood Type Antibody Screen ECG Data Attestation: I personally reviewed and interpreted this ECG as follows: Prior ECG tracings: available for review Interpretation: Normal sinus rhythm, HR -65, no STEMI, TX/QTC are within normal limits. Critical Care Time Critical Care Time Critical Care Time: Yes Total Critical Care Time: 30 Attestation: I personally attest to this time spent taking care of the patient. Discharge Plan Discharge Clinical Impression: GI bleed, Heart failure with reduced ejection fraction, CAD (coronary artery disease), Acute blood loss anemia Patient Disposition: Admitted As Inpatient Prescriptions: No Action carvedilol 6.25 mg Tablet 6.25 mg PO BID Qty: 60 0RF Protocol: Hold for SBP/HR < HOLD for SBP < : 90 HOLD for HR < : 60 amiodarone 200 mg tablet 200 mg PO DAILY omeprazole 20 mg capsule,delayed release(DR/EC) 1 cap PO BID Xarelto 20 mg tablet 20 mg PO DAILY gemfibrozil 600 mg Tablet 600 mg PO BID sertraline 25 mg Tablet 25 mg PO DAILY Qty: 30 0RF valsartan 40 mg tablet 20 mg PO BID Qty: 60 0RF zolpidem 10 mg tablet 10 mg PO BEDTIME PRN (Reason: Sleep) multivitamin Tablet 1 tab PO DAILY
[2022-06-23] MEDS: 0.9 % Sodium Chloride 1,000 ML 999 ML IV (07:36)
[2022-06-23 07:41] LABS: Hematocrit 24.8 % (42.0-52.0); Hemoglobin 8.5 g/dl (14.0-18.0); Mean Corpuscular HGB Conc 34.3 g/dl (31.0-36.0); Mean Corpuscular Hemoglobin 30.5 pg (27.0-33.0); Mean Corpuscular Volume 88.9 fL (80.0-98.0); Mean Platelet Volume 10.1 fL (9.4-12.4); Platelet Count 201 X10*3/uL (160-400); Red Blood Count 2.79 X10*6/uL (4.60-5.80); Red Cell Distribution Width 15.2 % (11.0-16.0); White Blood Count 6.6 X10*3/uL (4.8-10.8)
[2022-06-23 07:41] LABS: OBS Int Ctl Valid YES; OBS1 POSITIVE (NEGATIVE)
[2022-06-23 07:45] LABS: INTERNATIONAL NORM RATIO 1.1 (0.9-1.1); Prothrombin Time 12.5 SEC (10.0-13.1)
[2022-06-23 07:48] LABS: COVID-19 Test Positive (Negative)
[2022-06-23 08:04] LABS: Alanine Aminotransferase 24 U/L (0-40); Albumin Level 3.6 g/dL (3.5-5.0); Alkaline Phosphatase 115 U/L (39-117); Anion Gap 16 (12-20); Aspartate Amino Transferase 29 U/L (5-37); Bilirubin Total 0.3 mg/dL (0.0-1.0); Blood Urea Nitrogen 27 mg/dL (9-16); Calcium 8.5 mg/dL (8.4-10.2); Carbon Dioxide 20 mmol/L (22-29); Chloride 106 mmol/L (96-108); Creatinine Clr Calc Pharmacy 96.1; Estimated Glomerular Filt Rate > 60; Glucose Random 130 mg/dL (60-115); Lipase 85 U/L (8-78); Potassium 4.7 mmol/L (3.3-5.1); Sodium 137 mmol/L (135-145); Total Protein 6.3 g/dL (6.5-8.0)
[2022-06-23 08:07] LABS: Troponin-I High Sensitivity 11.9 ng/L (<3.5-35.0)
[2022-06-23 08:16] LABS: Band Neutrophils Percent 4 % (3-5); Eosinophils Absolute Manual 0.4 X10*3/uL (0.0-0.4); Eosinophils Percent Manual 6 % (0-4); Lymphocytes Absolute Manual 1.2 X10*3/uL (1.2-4.9); Lymphocytes Percent Manual 18 % (20-40); Metamyelocytes Absolute 0.2 X10*3/uL; Metamyelocytes Percent 3 %; Monocytes Absolute Manual 0.3 X10*3/uL (0.1-1.2); Monocytes Percent Manual 4 % (2-11); Neutrophils Absolute Manual 4.6 X10*3/uL (2.0-8.3); Neutrophils Percent Manual 65 % (45-73)
[2022-06-23 08:18] LABS: Platelet Estimate NORMAL (NORMAL); Platelet Morphology Comment NORMAL; RBC Morphology NORMAL
--- NOTE | 2022-06-23 08:58 | PC.NURSE ---
Pt alert and oriented x4. Respirations even and unlabored. IV established and labs drawn and sent.
--- NOTE | 2022-06-23 10:10 | PHA.MEDREC ---
Pharmacy Consult ? Medication Reconciliation Pharmacy has completed the medication reconciliation. Patient recently discharge 06/19/22 from [facility]. Med rec compeleted by discharge summary. On admission, ASA 81 mg, las 40 mg BID, metoprolol tartarte 25 mg BId and spironolcatone 25 mg were discontinued. New dose of valsartan in 20 mg BID. Alexandria Grant, [place]
--- NOTE | 2022-06-23 10:17 | PM.IMHP ---
History of Present Illness Date of Service: 06/23/22 Attending physician on admission: Shiva Barillas Chief Complaint: GI bleed 62-year-old male with history significant for controlled [id number] type 2 diabetes, coronary artery disease with ischemic cardiomyopathy, heart failure with reduced ejection fraction of 20-25%, paroxysmal atrial fibrillation anticoagulated with Xarelto, and depression presented to the hospital earlier this morning following episode of painless bright red bloody diarrhea as well as black tarry stool. Patient has had recurrent episodes of rectal bleeding with endoscopy/colonoscopy performed by Dr. Wilder last month without evidence of malignancy, H pylori, or active bleeding. Pathology showed tubular adenoma x3. He states he also had a colonoscopy at [facility] within the last month so he is not are not available for review. He has been hospitalized for the GI bleeding and then again was hospitalized and discharged last week with COVID-19 and was treated with IV steroids and remdesivir. He was hypotensive and hypovolemic with ANDRÉS and received 2 units of packed red cells. His Xarelto was resumed on discharge 5 days ago but he denies any recurrent bleeding until this morning. Hemoglobin dropped 1 point to 8.5 today with hct 24.8%. Renal function and electrolyte levels normal. Stool occult positive for blood. Received 1 unit packed red cells in the ED. Patient is asymptocatic except for fatigue. Review of Systems Review of Systems: General: No fevers, malaise, unintentional weight loss. Reports fatigue Cardiovascular: No chest pain, palpitations, or leg edema Respiratory: No shortness of breath, wheezing, cough GI: See HPI Neuro: No headaches, weakness, paresthesias Skin: No rashes or lesions Yes all other systems are reviewed and are negative, unobtainable due to endotracheal tube, Unobtainable due to mental condition, Unobtainable due to mental status and Other PMFSH Medical History Abdominal wall abscess Acute appendicitis CVA (cerebral vascular accident) Diabetes Diabetes mellitus Heart failure with reduced ejection fraction History of left below knee amputation HTN (hypertension) Paroxysmal atrial fibrillation Family History Father Stroke Aortic valve replaced Mother No problems noted. Surgical History H/O exploratory laparotomy H/O right hemicolectomy History of transmetatarsal amputation of right foot Hx of cholecystectomy Social History Household Members: None Household Members Other:: Mother- takes care of her Housing: House Do you presently have visiting nurse or other home services: No Unable to assess alcohol history related to: Unknown Alcohol intake: former Patient Tobacco Use Status: Former Tobacco user Advance Directives: Yes Advance Directives on File: Yes Advance Directives Date on File: 01/06/21 service: No Current occupational status: retired and disabled Meds Allergies Allergy/AdvReac Type Severity Reaction Status Date / Time vancomycin [VANCOMYCIN] Allergy Severe STOMACH Verified 06/23/22 06:56 UPSET, ill Active Medications: Current Medications Pharmacy Consult (Consult Rx Perform Med Rec) 1 each MISCELLANE ONCE PRN PRN Reason: Consult order Home Medications Medication Instructions Recorded Confirmed Last Taken Type amiodarone 200 mg tablet 200 mg PO DAILY 05/07/21 06/23/22 05/25/22 History omeprazole 20 mg capsule,delayed 1 cap PO BID 07/03/21 06/23/22 05/25/22 History release multivitamin 1 tab PO DAILY 04/07/22 06/23/22 05/25/22 History rivaroxaban 20 mg tablet (Xarelto) 20 mg PO DAILY 04/07/22 06/23/22 05/25/22 History zolpidem 10 mg tablet 10 mg PO BEDTIME PRN Sleep 04/07/22 06/23/22 05/25/22 History gemfibrozil 600 mg tablet 600 mg PO BID 05/26/22 06/23/22 05/25/22 History Physical Exam Vital Signs and Narrative: Vital Signs: Last Vital Signs Temp 98.0 F 06/23/22 10:15 Pulse 68 06/23/22 10:15 Resp 15 06/23/22 10:15 BP 152/66 H 06/23/22 10:15 Pulse Ox 100 06/23/22 07:40 O2 Del Method 06/23/22 07:40 BMI result Body Mass Index 24.2 Constitutional - Awake and Alert, No apparent distress. Pallor Eyes - PERRL, EOMI Cardiovascular - S1S2, RRR, No edema Respiratory - Normal lung expansion, Normal respiratory effort, No respiratory distress, CTA bilaterally Gastrointestinal - NT / ND; +BS; No rebound or guarding - No CVA tenderness Extremities - no calf tenderness bilaterally, no swelling Musculoskeletal - Normal inspection, normal ROM Skin - Warm/Dry Neurological - Alert & oriented x3, No focal deficit Psychological - Appropriate affect Results Labs CBC and Chem 7: 06/23/22 07:29 06/23/22 07:29 Labs: Laboratory Results - last 24 hr 06/23/22 06/23/22 06/23/22 07:29 07:29 07:29 MCV 88.9 MCH 30.5 MCHC 34.3 RDW 15.2 Plt Count 201 MPV 10.1 Immature Gran % (Auto) Cancelled Neut % (Auto) Cancelled Lymph % (Auto) Cancelled [place] % (Auto) Cancelled Eos % (Auto) Cancelled Baso % (Auto) Cancelled Lymph # (Auto) Cancelled [place] # (Auto) Cancelled Eos # (Auto) Cancelled Baso # (Auto) Cancelled Abs Immat Gran (auto) Cancelled Absolute Neuts (auto) Cancelled Absolute Nucleated RBC 0.000 Nucleated RBC % (auto) 0.0 Neutrophils % (Manual) 65 Band Neutrophils % 4 Lymphocytes % (Manual) 18 L Monocytes % (Manual) 4 Eosinophils % (Manual) 6 H Metamyelocytes % 3 Abs Neuts (Manual) 4.6 Lymphocytes # (Manual) 1.2 Monocytes # (Manual) 0.3 Eosinophils # (Manual) 0.4 Metamyelocytes # 0.2 Platelet Estimate NORMAL Plt Morphology Comment NORMAL RBC Morphology NORMAL PT 12.5 INR 1.1 Anion Gap 16 Estim Creat Clear Calc 96.1 Estimated GFR > 60 Random Glucose 130 H Calcium 8.5 Total Bilirubin 0.3 AST 29 ALT 24 Alkaline Phosphatase 115 D Total Protein 6.3 L Albumin 3.6 Lipase 85 H Stool Occult Blood COVID-19 (CAROLINE) COVID-19 Clin Com Blood Type Antibody Screen Crossmatch (AHG) 06/23/22 06/23/22 06/23/22 07:29 07:29 07:32 MCV MCH MCHC RDW Plt Count MPV Immature Gran % (Auto) Neut % (Auto) Lymph % (Auto) [place] % (Auto) Eos % (Auto) Baso % (Auto) Lymph # (Auto) [place] # (Auto) Eos # (Auto) Baso # (Auto) Abs Immat Gran (auto) Absolute Neuts (auto) Absolute Nucleated RBC Nucleated RBC % (auto) Neutrophils % (Manual) Band Neutrophils % Lymphocytes % (Manual) Monocytes % (Manual) Eosinophils % (Manual) Metamyelocytes % Abs Neuts (Manual) Lymphocytes # (Manual) Monocytes # (Manual) Eosinophils # (Manual) Metamyelocytes # Platelet Estimate Plt Morphology Comment RBC Morphology PT INR Anion Gap Estim Creat Clear Calc Estimated GFR Random Glucose Calcium Total Bilirubin AST ALT Alkaline Phosphatase Total Protein Albumin Lipase Stool Occult Blood POSITIVE COVID-19 (CAROLINE) Positive A COVID-19 Clin Com See Note Blood Type O Negative Antibody Screen NEGATIVE Crossmatch (AHG) See Detail Assessment and Plan (1) GI bleed: Qualifiers: GI bleed type/associated pathology: unspecified gastrointestinal hemorrhage type Qualified Code(s): K92.2 - Gastrointestinal hemorrhage, unspecified Status: Acute (2) Acute blood loss anemia: Status: Acute Plan 1- Lower GI bleed, possible upper GI bleed -Bright red bloody diarrhea at home today as well as black, tarry stool this morning -Heme occult stool positive. Renal function, electrolytes stable. Hemodynamically stable. -1 unit packed RBC in ED with h/h 8.5/24.8% -Last colonoscopy 05/2022 without active bleeding. Multiple polyps biopsied- tubular adenoma, no malginancy. Endoscopy with stomach polyp, no malignancy or active bleeding. Negative for H. Pylori. Patient reports second colonoscopy last month at [facility]. Will obtain records -GI consulted -Hold Xarelto -Gently hydrate with IV fluids -Monitor CBC daily -NPO for now -IV PPI 2- Paroxysmal Atrial fibrillation- stable -Hold xarelto d/t GI bleed -Continue amiodorone for rhythm. Rate controlled with carvedilol. Continue -Cardiology consult placed d/t anticoagulation intolerance 3- HFrEF- stable - No longer on diuretics. Euvolemic one xam. - Monitor daily weights - Low sodium cardiac diet ordered - Continue carvedilol and valsartan 4- Ischemic cardiomyopathy- stable -No anginal chest pain -Cardiology to follow 5- HTN-Stable -Recent history of hypotension -Hold valsartan -Continue carvedilol 5- Type 2 diabetes, non-insulin depedent- controlled - Monitor POC glucose 6-Depression- stable - Continue sertraline 25mg and zolpidem prn at bedtime DVT prophylaxis- mechanical and ambulation Full Code Patient will require inpatient stay for at least 2 midnights for evaluation of GI bleed of unclear etiology with persistent drop in H/H. He is at risk for decompensation due to significant cardiac history including ichemic cardiomyopathy. Quality Stroke Does the patient have a stroke diagnosis?: No VTE Prior VTE?: No VTE Risk Level:: Medical - moderate - high VTE Device Contraindication: N/A - Device Ordered VTE Drug Contraindication: Treatment Not Indicated
[2022-06-23 12:55] LABS: Appearance Urine CLEAR; Color Urine STRAW; Glucose Urine UA NEG (NEG); Leukocyte Esterase Urine NEG (NEG); Nitrite Urine NEG (NEG); Specific Gravity - Urine 1.015 (1.005-1.025); Urine Blood NEG (NEG); Urine Ketones NEG (NEG); Urine Protein TRACE MG/DL (NEG-TRACE)
[2022-06-23] MEDS: Dextrose 5 % and 0.45 % NaCl 1,000 ML 42 ML IVCONT (12:58)
[2022-06-23] MEDS: Pantoprazole Sodium 40 MG/10 ML VIAL IVPUSH ×2 (12:58→17:30)
--- NOTE | 2022-06-23 13:10 | PC.NURSE ---
patient a&ox3, vss, pt tolerated transfusion well, pt medicated per order, ivf started per order, call rausch within reach, will continue to monitor
--- NOTE | 2022-06-23 16:42 | PM.EVENT ---
Event Note Date of Service: 06/23/22 Event Note: GI consult dictated recurrent gi bleeding on oral anticoagulation recent egd and colon x2 reviewed agree with transfusion hold anticoagulation NM GI bleed scan if signs of active bleeding repeat colonoscopy not like to add much at this point.
[2022-06-23] MEDS: Zolpidem Tartrate 5 MG TABLET PO (20:56)
[2022-06-23] MEDS: carvediloL 6.25 MG TABLET PO (20:56)
[2022-06-23] MEDS: gemfibroziL 600 MG TABLET PO (20:56)
--- NOTE | 2022-06-24 03:20 | CONS_ITS ---
DATE OF SERVICE: 06/23/2022 REFERRING PHYSICIAN: FARHEEN Camacho REASON FOR CONSULTATION: GI bleeding. HISTORY OF PRESENT ILLNESS: The patient is a pleasant 62-year-old man, known to me from recent evaluation. He was hospitalized with GI bleeding earlier in the summer and underwent upper endoscopy and colonoscopy on May 30 with removal of a gastric polyp and multiple colon polyps including a large 15 x 20 mm right colon polyp. Diverticulosis was also noted. The pathology on the polyps was benign with a gastric polyp being hyperplastic and multiple tubular adenomas removed from the colon. He did well following the procedure, but was subsequently hospitalized at [facility] and underwent repeat colonoscopy between June 08 through , which showed an ulcer at the base of the large polyp. This was cauterized and clipped. He received 1 unit of blood that time as well. He was also hospitalized in [place] earlier this month with hypotension and his medication was adjusted. On discharge, his hematocrit was 28.4 on June 17. He restarted his anticoagulation on Wednesday and early this morning began to have painless rectal bleeding with a large amount of bright red blood filling the toilet on 2 separate occasions. He presented to the emergency room where he was evaluated and his hematocrit had dropped to 24.8. He received 1 unit of packed red blood cells. Currently, he has no complaints of abdominal pain and has not had any further rectal bleeding. His last dose of his anticoagulation was yesterday and is currently being held. PAST MEDICAL HISTORY: 1. GI bleeding as above. 2. Diabetes. 3. Coronary artery disease/ischemic cardiomyopathy. 4. Heart failure with reduced ejection fraction. 5. Paroxysmal atrial fibrillation, on Xarelto, restarted as above. 6. CVA. 7. Left BKA. 8. Hypertension. 9. Appendicitis with subsequent abdominal wall abscess, requiring extended right hemicolectomy. CURRENT MEDICATIONS: Current medication list is reviewed in the chart. ALLERGIES: VANCOMYCIN. FAMILY HISTORY: This is reviewed with the patient and is noncontributory. SOCIAL HISTORY: There is no current tobacco, alcohol, or substance abuse. REVIEW OF SYSTEMS: SKIN: No pruritus. HEENT: Negative. CARDIOPULMONARY: No shortness of breath or chest pain. GASTROINTESTINAL: As above. GENITOURINARY: Negative. NEUROPSYCHIATRIC: Negative. PHYSICAL EXAMINATION: GENERAL: Shows a pleasant male, lying comfortably in bed. VITAL SIGNS: Reviewed in electronic medical record and are stable. SKIN: Anicteric. HEENT: Shows no scleral icterus. NECK: Without lymphadenopathy or thyromegaly. LUNGS: Clear. HEART: Shows an irregular S1, S2. No murmur. ABDOMEN: Soft without focal masses or tenderness. Bowel sounds are present. No organomegaly is noted. EXTREMITIES: Without edema. He is status post amputation as above. LABORATORY DATA: Reviewed. IMPRESSION: Gastrointestinal bleeding. This appears consistent with gastrointestinal bleeding from a lower gastrointestinal source. The differential diagnosis includes bleeding from diverticular disease, possible bleeding from the polypectomy site and other causes such as arteriovenous malformations, which seem less likely as they were not seen on his most recent exams. At this time, I would recommend holding his anticoagulation and following his hematocrit. If he does show signs of active bleeding, I would obtain a GI bleeding scan and if necessary, angiography. It is unclear whether colonoscopy or add much at this point given that he has had 2 in the past month or so. This was discussed with the patient. Thanks for asking me to see him. I will follow him in the hospital with you. MD LEIGHA Willis/TOSHIA / [phone]
[2022-06-24 03:49] VITALS: BP 125/58; PULSE 73; RESP 16; TEMP 36.6; O2SAT 99
[2022-06-24] MEDS: Pantoprazole Sodium 40 MG/10 ML VIAL IVPUSH (05:40)
[2022-06-24 06:12] LABS: Hematocrit 25.4 % (42.0-52.0); Hemoglobin 8.8 g/dl (14.0-18.0); Mean Corpuscular HGB Conc 34.6 g/dl (31.0-36.0); Mean Corpuscular Hemoglobin 30.7 pg (27.0-33.0); Mean Corpuscular Volume 88.5 fL (80.0-98.0); Mean Platelet Volume 9.8 fL (9.4-12.4); Platelet Count 161 X10*3/uL (160-400); Red Blood Count 2.87 X10*6/uL (4.60-5.80); Red Cell Distribution Width 15.4 % (11.0-16.0); White Blood Count 5.9 X10*3/uL (4.8-10.8)
[2022-06-24 06:58] LABS: Anion Gap 12 (12-20); Blood Urea Nitrogen 18 mg/dL (9-16); Calcium 8.1 mg/dL (8.4-10.2); Carbon Dioxide 21 mmol/L (22-29); Chloride 108 mmol/L (96-108); Creatinine Clr Calc Pharmacy 117.3; Estimated Glomerular Filt Rate > 60; Glucose Random 130 mg/dL (60-115); Potassium 4.3 mmol/L (3.3-5.1); Sodium 137 mmol/L (135-145)
[2022-06-24 07:48] VITALS: BP 117/56; PULSE 65; RESP 20; TEMP 36.1; O2SAT 100
[2022-06-24 08:48] LABS: Atypical Lymph Absolute Manual 0.1 x10*3/uL; Atypical Lymphs Percent Manual 1 % (0-6); Band Neutrophils Percent 4 % (3-5); Eosinophils Absolute Manual 0.4 X10*3/uL (0.0-0.4); Eosinophils Percent Manual 6 % (0-4); Lymphocytes Absolute Manual 0.9 X10*3/uL (1.2-4.9); Lymphocytes Percent Manual 15 % (20-40); Metamyelocytes Absolute 0.1 X10*3/uL; Metamyelocytes Percent 1 %; Monocytes Absolute Manual 0.3 X10*3/uL (0.1-1.2); Monocytes Percent Manual 5 % (2-11); Neutrophils Absolute Manual 4.2 X10*3/uL (2.0-8.3); Neutrophils Percent Manual 68 % (45-73)
[2022-06-24 08:51] LABS: Microcytosis 1+ (5-14) /OIF; Polychromasia 1+ (0-2) /OIF; RBC Morphology NOTED
[2022-06-24 08:55] LABS: Platelet Estimate NORMAL (NORMAL); Platelet Morphology Comment NORMAL
[2022-06-24] MEDS: Multivitamin TABLET 1 TAB PO (09:14)
[2022-06-24] MEDS: carvediloL 6.25 MG TABLET PO ×2 (09:14→19:59)
[2022-06-24] MEDS: Amiodarone HCL 200 MG TABLET PO (09:15)
[2022-06-24] MEDS: gemfibroziL 600 MG TABLET PO ×2 (09:15→19:59)
--- NOTE | 2022-06-24 10:22 | HO.PM.IMPN ---
Subjective Subjective Date of Service: 06/24/22 Interval History: Patient reports feeling well following 1 unit packed RBC yesterday. H/H improving. Seen by GI. No signs of active bleeding at this time but patient has not moved his bowels yet. Anticoagulation held at this time and patient is refusing ambulation and pneumo boots. Review of Systems Review of Systems: Yes all other systems are reviewed and are negative Physical Exam Vital Signs: Vital Signs: Last Vital Signs Temp 96.9 F 06/24/22 07:48 Pulse 65 06/24/22 07:48 Resp 20 06/24/22 07:48 BP 117/56 L 06/24/22 07:48 Pulse Ox 100 06/24/22 07:48 O2 Del Method 06/24/22 07:48 BMI result Body Mass Index 24.0 Constitutional - Awake and Alert, No apparent distress Cardiovascular - S1S2, RRR, No edema Respiratory - Normal lung expansion, Normal respiratory effort, No respiratory distress, CTA bilaterally Gastrointestinal - NT / ND; +BS; No rebound or guarding - No CVA tenderness Extremities - no calf tenderness bilaterally, no swelling Skin - Warm/Dry Neurological - Alert & oriented x3, No focal deficit Psychological - Appropriate affect Objective Data Active Medications Amiodarone HCl (Amiodarone Hcl 200 Mg Tablet) 200 mg PO DAILY [facility] Last Admin: 06/24/22 09:15 Dose: 200 mg Documented By: RAFIA Carvedilol (Carvedilol 6.25 Mg Tablet) 6.25 mg PO BID [facility]; Protocol Last Admin: 06/24/22 09:14 Dose: 6.25 mg Documented By: RAFIA Gemfibrozil (Gemfibrozil 600 Mg Tablet) 600 mg PO BID [facility] Last Admin: 06/24/22 09:15 Dose: 600 mg Documented By: RAFIA Dextrose/Sodium Chloride (D51/2ns) 1,000 mls @ 42 mls/hr IVCONT .[id number] [facility] Last Admin: 06/23/22 12:58 Dose: 42 mls/hr Documented By: MARY BETH Multivitamins/Vitamin C (Multivitamin Tablet) 1 tab PO DAILY [facility] Last Admin: 06/24/22 09:14 Dose: 1 tab Documented By: RAFIA Pantoprazole Sodium (Pantoprazole Sodium 40 Mg/10 Ml Vial) 40 mg IVPUSH BID@[id number] [facility] Last Admin: 06/24/22 05:40 Dose: 40 mg Documented By: L[place]ON Pharmacy Consult (Consult Rx Perform Med Rec) 1 each MISCELLANE ONCE PRN PRN Reason: Consult order Sertraline HCl (Sertraline Hcl 25 Mg Tablet) 25 mg PO DAILY [facility] Last Admin: 06/24/22 09:16 Dose: Not Given Documented By: RAFIA Non-Admin Reason: Patient Refused Zolpidem Tartrate (Zolpidem Tartrate 5 Mg Tablet) 5 mg PO BEDTIME PRN PRN Reason: Sleep Last Admin: 06/23/22 20:56 Dose: 5 mg Documented By: LONDON Labs CBC & Chem 7: 06/24/22 05:57 06/24/22 05:57 Labs: Laboratory Results - last 24 hr 06/23/22 06/23/22 06/24/22 07:29 12:45 05:57 MCV 88.5 MCH 30.7 MCHC 34.6 RDW 15.4 Plt Count 161 MPV 9.8 Immature Gran % (Auto) Cancelled Neut % (Auto) Cancelled Lymph % (Auto) Cancelled [place] % (Auto) Cancelled Eos % (Auto) Cancelled Baso % (Auto) Cancelled Lymph # (Auto) Cancelled [place] # (Auto) Cancelled Eos # (Auto) Cancelled Baso # (Auto) Cancelled Abs Immat Gran (auto) Cancelled Absolute Neuts (auto) Cancelled Absolute Nucleated RBC 0.000 Nucleated RBC % (auto) 0.0 Neutrophils % (Manual) 68 Band Neutrophils % 4 Lymphocytes % (Manual) 15 L Atypical Lymphs % (Man) 1 Monocytes % (Manual) 5 Eosinophils % (Manual) 6 H Metamyelocytes % 1 Abs Neuts (Manual) 4.2 Lymphocytes # (Manual) 0.9 L Atyp Lymphs # (Manual) 0.1 Monocytes # (Manual) 0.3 Eosinophils # (Manual) 0.4 Metamyelocytes # 0.1 Platelet Estimate NORMAL Plt Morphology Comment NORMAL RBC Morphology NOTED Polychromasia 1+ (0-2) Microcytosis 1+ (5-14) Anion Gap Estim Creat Clear Calc Estimated GFR Random Glucose Calcium Urine Color STRAW Urine Appearance CLEAR Urine pH 6.0 Ur Specific [place] 1.015 Urine Protein TRACE Urine Glucose (UA) NEG Urine Ketones NEG Urine Blood NEG Urine Nitrite NEG Ur Leukocyte Esterase NEG Crossmatch (AHG) See Detail 06/24/22 05:57 MCV MCH MCHC RDW Plt Count MPV Immature Gran % (Auto) Neut % (Auto) Lymph % (Auto) [place] % (Auto) Eos % (Auto) Baso % (Auto) Lymph # (Auto) [place] # (Auto) Eos # (Auto) Baso # (Auto) Abs Immat Gran (auto) Absolute Neuts (auto) Absolute Nucleated RBC Nucleated RBC % (auto) Neutrophils % (Manual) Band Neutrophils % Lymphocytes % (Manual) Atypical Lymphs % (Man) Monocytes % (Manual) Eosinophils % (Manual) Metamyelocytes % Abs Neuts (Manual) Lymphocytes # (Manual) Atyp Lymphs # (Manual) Monocytes # (Manual) Eosinophils # (Manual) Metamyelocytes # Platelet Estimate Plt Morphology Comment RBC Morphology Polychromasia Microcytosis Anion Gap 12 Estim Creat Clear Calc 117.3 Estimated GFR > 60 Random Glucose 130 H Calcium 8.1 L Urine Color Urine Appearance Urine pH Ur Specific [place] Urine Protein Urine Glucose (UA) Urine Ketones Urine Blood Urine Nitrite Ur Leukocyte Esterase Crossmatch (AHG) Assessment and Plan (1) Acute blood loss anemia: Status: Acute (2) GI bleed: Status: Acute Plan 1- Lower GI bleed, possible upper GI bleed -No BM yet to assess for bleeding -H/H improved to 8.8/25.4% -Follow plan per GI- contiinue monitoring for active bleeding. Follow CBC daily -hold anticoagulation -Gently hydrate with IV fluids -Change PPI to PO 2- Paroxysmal Atrial fibrillation- stable -Hold xarelto d/t GI bleed -Continue amiodorone for rhythm. Rate controlled with carvedilol. Continue -Cardiology to evaluate 3- HFrEF- stable - No longer on diuretics. Euvolemic - Monitor daily weights - Low sodium cardiac diet - Continue carvedilol 4- Ischemic cardiomyopathy- stable -No anginal chest pain -Cardiology to follow 5- HTN-Stable -Continue carvedilol 5- Type 2 diabetes, non-insulin depedent- controlled - Monitor POC glucose 6-Depression- stable - Continue sertraline 25mg and zolpidem prn at bedtime DVT prophylaxis- mechanical and ambulation Full Code Patient will require ongoing inpatient stay for monitoring of active bleeding related to GI bleed with blood loss anemia requiring transfusion. Quality Stroke Does the patient have a stroke diagnosis?: No VTE Prior VTE?: No VTE Risk Level:: Medical - moderate - high VTE Device Contraindication: N/A - Device Ordered VTE Drug Contraindication: Treatment Not Indicated
[2022-06-24 11:49] VITALS: BP 135/61; RESP 20; TEMP 36.1; O2SAT 100
[2022-06-24 12:52] LABS: Estimated Average Glucose 111 mg/dL; Hemoglobin A1c % 5.5 %
[2022-06-24 13:03] VITALS: BMI 24.0
--- NOTE | 2022-06-24 13:10 | MHC.CLN ---
PT IS MODERATELY MALNOURISHED PT IS MILDLY DEPLETED IN SUBCUTANEOUS FAT AND MUSCLE MASS WITH 13% SIGNIFICANT WT LOSS X 6 MONTHS AND CHRONIC POOR PO INTAKE PT IS FAMILIAR TO FACILITY WITH MOST RECENT NUTRITION ASSESSMENTS 07/04/22 AND 06/17/22 PO INTAKE 100% X 1 DIET RX: 2200DM 2GM NA -APPROPRIATE RECOMMEND ADDING ENSURE BID TO INCREASE KCALS MONITOR PO INTAKE CLOSELY SEE ALSO FULL CLINICAL NUTRITION ASSESSMENT
--- NOTE | 2022-06-24 14:49 | MHC.CM.PN ---
Addendum entered by Ashley James 06/24/22 14:57: DP home no services . He will arrange for transportation to home. He will not go to [facility]. He will accept [facility] if needed. Original Note: IMM 06/24/22 Male 62 DX Covid+ GIB he lives alone. He is independent with use of a shower chair for ADLs. L BKA with Prosthesis. Equipment: Cane, Walker, WC and shower bench.
[2022-06-24 15:21] VITALS: BP 119/62; PULSE 66; RESP 14; TEMP 36.6; O2SAT 98
--- NOTE | 2022-06-24 16:27 | PM.GIPN ---
Subjective Subjective Date of Service: 06/24/22 Interval History: no bleeding tolerating diet Critical Care Time (minutes): 0 Physical Exam Vital Signs: Vital Signs: Last Vital Signs Temp 97.9 F 06/24/22 15:21 Pulse 66 06/24/22 15:21 Resp 14 06/24/22 15:21 BP 119/62 06/24/22 15:21 Pulse Ox 98 06/24/22 15:21 O2 Del Method 06/24/22 15:21 BMI result Body Mass Index 24.0 GI: Other: abdomen is soft and nontender Objective Data Labs CBC & Chem 7: 06/24/22 05:57 06/24/22 05:57 Procedures Date of Service Date of Service: 06/24/22 Progress Note: A&P Assessment and plan (1) GI bleed: Status: Acute Assessment and Plan: gi bleeding has stopped with d/c of Xarelto Consider permanently stopping if ok with Cardiology. Time Spent With Patient Time: Total time spent is greater than 50% in coordination of care (as documented) at patient's floor/unit and/or counseling patient: Quality Stroke Does the patient have a stroke diagnosis?: No VTE Prior VTE?: No VTE Risk Level:: Medical - moderate - high VTE Device Contraindication: N/A - Device Ordered VTE Drug Contraindication: Treatment Not Indicated
[2022-06-24 19:46] VITALS: BP 114/56; PULSE 64; RESP 14; TEMP 37; O2SAT 97
[2022-06-24] MEDS: Omeprazole 20 MG CAPSULE.DR PO (19:59)
[2022-06-24] MEDS: Zolpidem Tartrate 5 MG TABLET PO (20:04)
[2022-06-24 23:01] VITALS: BP 117/57; RESP 17; TEMP 36.1; O2SAT 98
[2022-06-25 03:14] VITALS: BP 135/67; PULSE 68; RESP 18; TEMP 36.1; O2SAT 97
[2022-06-25 06:26] LABS: MANUAL DIFF FLAG NO
[2022-06-25 06:31] LABS: Basophils Percent Auto 0.3 % (0-2); Eosinophils Absolute Auto 0.3 X10*3/uL (0.0-0.4); Eosinophils Percent Auto 4.1 % (0-4); Hematocrit 26.9 % (42.0-52.0); Hemoglobin 9.2 g/dl (14.0-18.0); Imm Gran Abs Auto 0.26 X10*3/uL (0.00-0.03); Imm Gran Pct Auto 3.9 % (0.0-0.4); Lymphocytes Percent Auto 14.2 % (20-40); Mean Corpuscular HGB Conc 34.2 g/dl (31.0-36.0); Mean Corpuscular Hemoglobin 30.3 pg (27.0-33.0); Mean Corpuscular Volume 88.5 fL (80.0-98.0); Mean Platelet Volume 9.6 fL (9.4-12.4); Monocytes Absolute Auto 0.6 X10*3/uL (0.1-1.2); Monocytes Percent Auto 8.3 % (2-11); Neutrophils Absolute Auto 4.7 x10*3/uL (2.0-8.3); Neutrophils Percent Auto 69.2 % (45-73); Platelet Count 186 X10*3/uL (160-400); Red Blood Count 3.04 X10*6/uL (4.60-5.80); Red Cell Distribution Width 15.6 % (11.0-16.0); White Blood Count 6.8 X10*3/uL (4.8-10.8)
[2022-06-25 07:26] VITALS: BP 159/69; PULSE 61; RESP 19; TEMP 36.4; O2SAT 99
[2022-06-25] MEDS: Amiodarone HCL 200 MG TABLET PO (10:12)
[2022-06-25] MEDS: carvediloL 6.25 MG TABLET PO (10:12)
[2022-06-25] MEDS: Omeprazole 20 MG CAPSULE.DR PO (10:12)
[2022-06-25] MEDS: gemfibroziL 600 MG TABLET PO (10:12)
[2022-06-25] MEDS: Multivitamin TABLET 1 TAB PO (10:12)
[2022-06-25] MEDS: Valsartan 40 MG TABLET 20 MG PO (10:17)
--- NOTE | 2022-06-25 10:43 | PM.DS ---
DS: Providers Provider Date of Service: 06/25/22 Date of admission: 06/23/22 10:48 Date of discharge: 06/25/22 Primary care physician: Connor Mcdaniel MD Admitting clinician: Shiva Barillas Attending physician on admission: Shiva Barillas Consults: 06/23/22 10:43 Consult to Cardiology Routine Consulting Provider: Sahil Pleitez Reason for consultation: HFrEF, A Fib, GI bleed on xarelto Has provider been notified: No Consult to Gastroenterology Routine Consulting Provider: Анна Sky Reason for consultation: Upper/lower GI bleed Has provider been notified: No Attending physician on discharge: Shiva Barillas Discharging clinician: Vikki Temple DS: Diagnosis Discharge Diagnosis (1) GI bleed: Status: Acute DS: Summary Hospital Course Hospital Course: HPI: 62-year-old male with history significant for controlled yuz-hakzxgf-rywtoyzri type 2 diabetes, coronary artery disease with ischemic cardiomyopathy, heart failure with reduced ejection fraction of 20-25%, paroxysmal atrial fibrillation anticoagulated with Xarelto, and depression presented to the hospital earlier this morning following episode of painless bright red bloody diarrhea as well as black tarry stool.? Patient has had recurrent episodes of rectal bleeding with endoscopy/colonoscopy performed by Dr. Wilder last month without evidence of malignancy, H pylori, or active bleeding.? Pathology showed tubular adenoma x3.? He states he also had a colonoscopy at [facility] within the last month so he is not are not available for review.? He has been hospitalized for the GI bleeding and then again was hospitalized and discharged last week with COVID-19 and was treated with IV steroids and remdesivir.? He was hypotensive and hypovolemic with ANDRÉS and received 2 units of packed red cells.? His Xarelto was resumed on discharge 5 days ago but he denies any recurrent bleeding until this morning.? Hemoglobin dropped 1 point to 8.5 day of presentation with hct 24.8%. Renal function and electrolyte levels normal. Stool occult positive for blood. Received 1 unit packed red cells in the ED. Patient was asymptocatic except for fatigue. Hospital Course: Patient presented with lower GI bleed following colonoscopy x 2 and xarelto being resumes on discharge last week. Seen by gastroenterology ([facility]), recent negative colonoscopies. Repeat colonoscopy not felt to be beneficial. Will follow outpatient. Xarelto held on admission. Seen by cardiology who advised xarelto remained held, to be replaced with asa on discharge. Will be seen outpatient by cardiology ([facility]) to be considered for Watchman device for the AFib. CHF and cardiomyopathy stable. He will continue amiodorone, carvedilol and valsartan. Found to be moderately malnourished. Programs Director recommends 2200 calorie per day diabetic diet with 2g sodium per day. Add ensure BID to increase kcals. Status at Discharge Functional status at discharge: independent ambulation Time Spent with Patient Time attestation: Total time spent providing and/or coordinating discharge services: Discharge coordination time: Greater than 30 minutes Quality: Safe Use of Opioids Does Pt have an Active Cancer Diagnosis on the Problem List?: No Quality: Stroke Does the patient have a stroke diagnosis?: No Physical Exam Vital Signs: Vital Signs: Last Vital Signs Temp 97.6 F 06/25/22 07:26 Pulse 61 06/25/22 07:26 Resp 19 06/25/22 07:26 BP 159/69 H 06/25/22 07:26 Pulse Ox 99 06/25/22 07:26 O2 Del Method 06/25/22 07:26 BMI result Body Mass Index 24.0 Constitutional - Awake and Alert, No apparent distress Eyes - PERRLA, EOMI Cardiovascular - S1S2, RRR, No edema Respiratory - Normal lung expansion, Normal respiratory effort, No respiratory distress, CTA bilaterally Gastrointestinal - NT / ND; +BS; No rebound or guarding Extremities - Left AKA. no right calf tenderness bilaterally, no swelling Skin - Warm/Dry Neurological - Alert & oriented x3, No focal deficit Psychological - Appropriate affect GI: Other: abdomen is soft and nontender DS: Data Data Completed and Pending Completed studies during hospitalization [Text1]: Procedures Control Bleeding in Gastrointestinal Tract, Via Natural or Artificial Opening Endoscopic (05/26/22) Drainage of Abdomen Subcutaneous Tissue and Fascia, Open Approach (07/03/21) Drainage of Abdominal Wall with Drainage Device, Percutaneous Approach (05/26/21) Drainage of Retroperitoneum with Drainage Device, Percutaneous Approach (12/22/20) Drainage of Retroperitoneum, Percutaneous Endoscopic Approach (12/22/20) Drainage of Right Abdomen Muscle, Open Approach (05/26/21) Excision of Right Large Intestine, Via Natural or Artificial Opening Endoscopic, Diagnostic (05/26/22) Excision of Stomach, Pylorus, Via Natural or Artificial Opening Endoscopic, Diagnostic (05/26/22) Introduction of Vasopressor into Peripheral Vein, Percutaneous Approach (05/26/22) Irrigation of Peritoneal Cavity using Irrigating Substance, Percutaneous Approach (05/26/21) Transfusion of Nonautologous Red Blood Cells into Peripheral Vein, Percutaneous Approach (05/26/22) Labs on day of discharge: Laboratory Results - last 24 hr 06/24/22 06/25/22 05:57 06:04 WBC 6.8 RBC 3.04 L Hgb 9.2 L Hct 26.9 L MCV 88.5 MCH 30.3 MCHC 34.2 RDW 15.6 Plt Count 186 MPV 9.6 Immature Gran % (Auto) 3.9 H Neut % (Auto) 69.2 Lymph % (Auto) 14.2 L [place] % (Auto) 8.3 Eos % (Auto) 4.1 H Baso % (Auto) 0.3 Lymph # (Auto) 1.0 L [place] # (Auto) 0.6 Eos # (Auto) 0.3 Baso # (Auto) 0.0 Abs Immat Gran (auto) 0.26 H Absolute Neuts (auto) 4.7 Absolute Nucleated RBC 0.000 Nucleated RBC % (auto) 0.0 Estimat Average Glucose 111 Hemoglobin A1c % 5.5 Discharge Plan Discharge Anticipated Discharge Date/Time: 06/25/22 10:10 Patient Disposition: Home, Self-Care Discharge Diagnosis: Lower GI bleed Referrals: Connor Mcdaniel MD [Primary Care Provider] - 1 Week Haja Mullins MD [Physician] - 1 Week Discharge Medications: New aspirin 81 mg tablet,delayed release (DR/EC) 81 mg PO DAILY Qty: 14 0RF Continued carvedilol 6.25 mg Tablet 6.25 mg PO BID Qty: 60 0RF Protocol: Hold for SBP/HR < HOLD for SBP < : 90 HOLD for HR < : 60 amiodarone 200 mg tablet 200 mg PO DAILY omeprazole 20 mg capsule,delayed release(DR/EC) 1 cap PO BID gemfibrozil 600 mg Tablet 600 mg PO BID sertraline 25 mg Tablet 25 mg PO DAILY Qty: 30 0RF valsartan 40 mg tablet 20 mg PO BID Qty: 60 0RF zolpidem 10 mg tablet 10 mg PO BEDTIME PRN (Reason: Sleep) multivitamin Tablet 1 tab PO DAILY Discontinued Xarelto 20 mg tablet 20 mg PO DAILY Discharge Orders: Discharge Order (Routine); Ordered 06/25/22 Ordered By: Vikki Temple Diet: Diabetic diet Activity on Discharge: As tolerated Stand Alone Forms: Patient Portal Discharge page Care Plan Goals: Remain off anticoagulation to prevent recurrent GI bleed. Improve nutrition. Health Concerns: Reintroduction of xarelto could lead to recurrence of GI bleed. Cardiology recommends baby aspirin instead for the time being until you can be evaluated by them for consideration of alternative means of anticoagulation. There is concern for moderate malnutrition following recurrent hospitalizations. Please work on improving diet at home as above. Plan of Treatment: Remain off xarelto to prevent further GI bleeding. Initiate baby aspirin daily. Follow up with gastroenterology ([facility]) and Susanna (cardiology) outpatient. Return to the ER for any recurrent episodes of significant bright red blood with bowel movement. Improve dietary compliance to improve nutrition with 2000 calories per day limiting carbohydrates and limiting sodium to no more than 2g per day. Assessment: Your blood counts have continued to improve following blood transfusion with 1L of red blood cells. There have been no signs of ongoing active bleeding. Patient Instructions: Gastrointestinal Bleeding (DC)
--- NOTE | 2022-06-25 10:57 | MHC.CM.PN ---
IMM 06/24/22 Patient is discharged today. DISOP: Home no services ordered or needed. Patient will arrange for family to provide his transportation home.
[2022-06-25 11:23] VITALS: BP 141/68; PULSE 98; RESP 18; TEMP 36.5; O2SAT 99
--- NOTE | 2022-06-25 12:07 | PM.CNCAR ---
History of Present Illness History of Present Illness Date of Service: 06/25/22 Chief complaint: GI Bleed Narrative: This is a cardiology consultation regarding anemia as well as anticoagulation use. Per note from gastroenterology, recurrent gastrointestinal bleeding on oral anticoagulation. It seems that he has had EGD as well as colonoscopy twice. However, he is again admitted with painless rectal bleeding and hence we have been consulted. Per last office note by our nurse practitioner Shirley Subramanian, patient has a history of coronary artery disease. 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 Then had cardiac MRI showing nonviable tissue in the LAD and RCA territory and only viable territory in circumflex. Then plan was apparently made for PCI of circumflex as an outpatient. Subsequently did not appear that that materialized. Then also listed to have ischemic cardiomyopathy with LVEF in the 20-25% range. Has paroxysmal atrial fibrillation on amiodarone as well as Xarelto. Otherwise from a cardiac standpoint he does not have any active symptoms at this time. Review of Systems Review of Systems: Yes all other systems are reviewed and are negative Constitutional: Constitutional: Reports as per HPI Eyes: Eyes: Reports as per HPI ENT: Reports as per HPI Cardiovascular: Cardiovascular: Reports as per HPI, Denies acrocyanosis, Denies cool extremities, Denies chest pain, Denies leg edema, Denies lightheadedness, Denies palpitations and Denies dyspnea Respiratory: Respiratory: Reports as per HPI, Reports no additional respiratory complaints and Denies dyspnea Gastrointestinal: Gastrointestinal: Reports as per HPI and Reports no additional gastrointestinal complaints Genitourinary: Genitourinary: Reports no additional male genitourinary complaints and Reports as per HPI Musculoskeletal: Musculoskeletal: Reports no additional musculoskeletal complaints and Reports as per HPI Integumentary/Breasts: Skin/Breast: Reports system reviewed and no additional complaints, except as docu Neurologic: Reports system reviewed and no additional complaints, except as documented and Reports as per HPI Psychiatric: Psychiatric: Reports no additional psychiatric complaints and Reports as per HPI Endocrine: Endocrine: Reports no additional endocrine complaints, Reports as per HPI and Denies palpitations Hematologic/Lymphatic: Hematologic/Lymphatic: Reports no additional hematologic/lymphatic complaints and Reports as per HPI Allergic/Immunologic: Allergic/Immunologic: Reports no additional allergic/immunologic complaints and Reports as per HPI [facility] Past Medical History Medical History Abdominal wall abscess Acute appendicitis CVA (cerebral vascular accident) Diabetes Diabetes mellitus Heart failure with reduced ejection fraction History of left below knee amputation HTN (hypertension) Paroxysmal atrial fibrillation Family History Family History Father Stroke Aortic valve replaced Mother No problems noted. Surgical History Surgical History H/O exploratory laparotomy H/O right hemicolectomy History of transmetatarsal amputation of right foot Hx of cholecystectomy Social History Social History (Updated 06/23/22 @ 17:41 by Anastasia Lee RN) Household Members: None Household Members Other:: Mother- takes care of her Caregiver staying overnight: No Housing: House Do you presently have visiting nurse or other home services: No Unable to assess alcohol history related to: Unknown Alcohol intake: former Patient Tobacco Use Status: Former Tobacco user Advance Directives Date on File: 01/06/21 service: No Current occupational status: retired and disabled Meds Allergies Allergy/AdvReac Type Severity Reaction Status Date / Time vancomycin [VANCOMYCIN] Allergy Severe STOMACH Verified 06/23/22 06:56 UPSET, ill Active Medications: Current Medications Amiodarone HCl (Amiodarone Hcl 200 Mg Tablet) 200 mg PO DAILY [facility] Last Admin: 06/25/22 10:12 Dose: 200 mg Carvedilol (Carvedilol 6.25 Mg Tablet) 6.25 mg PO BID [facility]; Protocol Last Admin: 06/25/22 10:12 Dose: 6.25 mg Gemfibrozil (Gemfibrozil 600 Mg Tablet) 600 mg PO BID [facility] Last Admin: 06/25/22 10:12 Dose: 600 mg Multivitamins/Vitamin C (Multivitamin Tablet) 1 tab PO DAILY [facility] Last Admin: 06/25/22 10:12 Dose: 1 tab Omeprazole (Omeprazole 20 Mg Capsule.Dr) 20 mg PO BID [facility] Last Admin: 06/25/22 10:12 Dose: 20 mg Pharmacy Consult (Consult Rx Perform Med Rec) 1 each MISCELLANE ONCE PRN PRN Reason: Consult order Sertraline HCl (Sertraline Hcl 25 Mg Tablet) 25 mg PO DAILY [facility] Last Admin: 06/25/22 10:15 Dose: Not Given Valsartan (Valsartan 40 Mg Tablet) 20 mg PO BID [facility]; Protocol Last Admin: 06/25/22 10:17 Dose: 20 mg Zolpidem Tartrate (Zolpidem Tartrate 5 Mg Tablet) 5 mg PO BEDTIME PRN PRN Reason: Sleep Last Admin: 06/24/22 20:04 Dose: 5 mg Home Medications Medication Instructions Recorded Confirmed Last Taken Type amiodarone 200 mg tablet 200 mg PO DAILY 05/07/21 06/23/22 05/25/22 History omeprazole 20 mg capsule,delayed 1 cap PO BID 07/03/21 06/23/22 05/25/22 History release multivitamin 1 tab PO DAILY 04/07/22 06/23/22 05/25/22 History zolpidem 10 mg tablet 10 mg PO BEDTIME PRN Sleep 04/07/22 06/23/22 05/25/22 History gemfibrozil 600 mg tablet 600 mg PO BID 05/26/22 06/23/22 05/25/22 History Physical Exam Vital Signs: Vital Signs: Last Vital Signs Temp 97.7 F 06/25/22 11:23 Pulse 98 06/25/22 11:23 Resp 18 06/25/22 11:23 BP 141/68 H 06/25/22 11:23 Pulse Ox 99 06/25/22 11:23 O2 Del Method 06/25/22 11:23 BMI result Body Mass Index 24.0 Const: General: comfortable and no acute distress Orientation/consciousness: patient oriented x3 HEENT: Other: Unremarkable Head: Yes normal to inspection Neck: Neck: Yes normal visual inspection Chest: Chest palpation & inspection: normal inspection of the chest Resp: Auscultation: clear to auscultation bilaterally Cardio: Palpation: normal PMI Heart sounds: S1 normal heart sound present, S2 normal heart sound present, no gallops, no murmurs and no rubs GI: Palpation (GI): Soft to palpation Back/Spine/Pelvis: Other: unremarkable Skin: General skin exam: no rashes or lesions noted Neuro: General: patient oriented x3 Extrem: General: Yes normal to inspection Psych: Mental Status: mental status grossly normal Objective Labs and Meds Result diagrams: 06/25/22 06:04 06/24/22 05:57 Lab results: Laboratory Results - last 24 hr 06/24/22 06/25/22 05:57 06:04 WBC 6.8 RBC 3.04 L Hgb 9.2 L Hct 26.9 L MCV 88.5 MCH 30.3 MCHC 34.2 RDW 15.6 Plt Count 186 MPV 9.6 Immature Gran % (Auto) 3.9 H Neut % (Auto) 69.2 Lymph % (Auto) 14.2 L [place] % (Auto) 8.3 Eos % (Auto) 4.1 H Baso % (Auto) 0.3 Lymph # (Auto) 1.0 L [place] # (Auto) 0.6 Eos # (Auto) 0.3 Baso # (Auto) 0.0 Abs Immat Gran (auto) 0.26 H Absolute Neuts (auto) 4.7 Absolute Nucleated RBC 0.000 Nucleated RBC % (auto) 0.0 Estimat Average Glucose 111 Hemoglobin A1c % 5.5 ECG Interpretation: EKG with sinus rhythm at 65/Min; old inferior as well as anterolateral infarct. Normal QTc Assessment and Plan (1) GI bleed: Qualifiers: GI bleed type/associated pathology: unspecified gastrointestinal hemorrhage type Qualified Code(s): K92.2 - Gastrointestinal hemorrhage, unspecified Status: Acute (2) Acute blood loss anemia: Status: Acute (3) Ischemic cardiomyopathy: Status: Acute (4) CAD (coronary artery disease): Status: Acute (5) Paroxysmal atrial fibrillation: Status: Acute Plan Cardiac studies reviewed. Most recently echocardiogram with LVEF of 25-30% with wall motion abnormality suggestive of underlying ischemic heart disease. No obvious valvular issues. Cardiac catheterization reviewed from February 2022. LAD chronic total occlusion with [id number] collaterals. RCA chronic total occlusion with right to right and [id number] collaterals. Severe proximal circumflex stenosis. Overall, he has severe ischemic cardiomyopathy, multiple CAD, paroxysmal atrial fibrillation suppressed on amiodarone with anticoagulation/Xarelto. Due to recurrent gastrointestinal bleeding, agree with holding Xarelto. If GI agrees, at least use low-dose aspirin. Discussed with patient about stroke risk off anticoagulation but if he has bleeding repeatedly, cannot use anticoagulation either. In this setting, reasonable to consider a Watchman device. This will be addressed in the office the next encounter. In the interim, we can at least see if he can tolerate aspirin or not. Follow-up will be arranged and plan was discussed with the patient. Discussed with FARHEEN Camacho. Procedures Date of Service Date of Service: 06/25/22
== END 2022-06-25 15:48 | disposition home or self-care (01) | DRG 377 ==
LOC: HO.ED 10:36 → HO.EDOVER 10:53 → HO.IMC 15:19
PROVIDERS: Admitting Provider Physician Assistant; Emergency Provider Student in an Organized Health Care Education/Training Program; PCP Internal Medicine; Visit Provider Physician Assistant
DX: K92.2 Gastrointestinal hemorrhage, unspecified (principal); U07.1 COVID-19; I50.22 Chronic systolic (congestive) heart failure; D62 Acute posthemorrhagic anemia; E11.9 Type 2 diabetes mellitus without complications; I48.0 Paroxysmal atrial fibrillation; F32.A Depression, unspecified; I25.10 Atherosclerotic heart disease of native coronary artery without angina pectoris; I25.5 Ischemic cardiomyopathy; Z86.73 Personal history of transient ischemic attack (TIA), and cerebral infarction without residual deficits; Z89.512 Acquired absence of left leg below knee; Z88.1 Allergy status to other antibiotic agents; Z79.82 Long term (current) use of aspirin; Z79.899 Other long term (current) drug therapy
CPT/HCPCS: 36415; 80048; 80053; 81003; 82272; 83036; 83690; 84484; 85007; 85025; 85027; 85610; 86850; 86900; 86901; 86920; 86922; 87635; 93005; 99285; P9016

== ENCOUNTER 2022-07-21 08:55 | Outpatient (REF) | payer MEDICARE, SELFPAY ==
[2022-07-21 10:24] LABS: Hematocrit 37.4 % (42.0-52.0); Hemoglobin 11.9 g/dl (14.0-18.0); Mean Corpuscular HGB Conc 31.8 g/dl (31.0-36.0); Mean Corpuscular Hemoglobin 29.2 pg (27.0-33.0); Mean Corpuscular Volume 91.7 fL (80.0-98.0); Mean Platelet Volume 9.8 fL (9.4-12.4); Platelet Count 381 X10*3/uL (160-400); Red Blood Count 4.08 X10*6/uL (4.60-5.80); Red Cell Distribution Width 15.4 % (11.0-16.0)
[2022-07-21 10:55] LABS: Anion Gap 19 (12-20); Blood Urea Nitrogen 26 mg/dL (9-16); Calcium 9.5 mg/dL (8.4-10.2); Carbon Dioxide 27 mmol/L (22-29); Chloride 93 mmol/L (96-108); Estimated Glomerular Filt Rate > 60; Glucose Random 229 mg/dL (60-115); Potassium 4.7 mmol/L (3.3-5.1); Sodium 134 mmol/L (135-145)
[2022-07-21 10:56] LABS: B Type Natriuretic Peptide 1021 pg/mL (<100)
[2022-07-21 15:10] LABS: Thyroid Stimulating Hormone 58.72 uIU/mL (0.32-4.0)
== END 2022-07-21 08:56 | disposition home or self-care (01) ==
LOC: HO.LAB 08:55
PROVIDERS: PCP Internal Medicine; Referring Provider Internal Medicine; Visit Provider Internal Medicine Cardiovascular Disease
DX: I50.20 Unspecified systolic (congestive) heart failure (principal); I25.10 Atherosclerotic heart disease of native coronary artery without angina pectoris; I48.0 Paroxysmal atrial fibrillation
CPT/HCPCS: 36415; 80048; 83880; 84443; 85027; 93005; 99212

== ENCOUNTER 2022-08-12 09:13 | Outpatient (REF) | payer MEDICARE, SELFPAY ==
--- NOTE | ~2022-08-12 | XR_ITS ---
EXAMINATION: XR CHEST CLINICAL INFORMATION: Cough evaluate for pneumonia COMPARISON: Chest radiograph from 06/16/2022 TECHNIQUE: 2 views of the chest were obtained. FINDINGS: Patchy radiopacity involving the medial right lung in its midportion and base, which may reflect element of atelectasis versus evolving infectious/inflammatory etiology. Stable elevation the right hemidiaphragm. No pneumothorax. Trachea is midline. Cardiac mediastinal silhouette is not enlarged. No large pleural effusion. Degenerative changes of the thoracolumbar spine with increased kyphosis of the thoracic spine. Soft tissues are unremarkable. XR/XR chest 2V IMPRESSION: 1. Patchy radiopacity involving the medial right lung in its midportion and base, which may reflect element of atelectasis versus evolving infectious/inflammatory etiology. 2. Stable elevation the right hemidiaphragm.
== END 2022-08-12 09:14 | disposition home or self-care (01) ==
LOC: HO.XRAY 09:13
PROVIDERS: PCP Internal Medicine; Visit Provider Internal Medicine
DX: R05.9 Cough, unspecified (principal); E11.9 Type 2 diabetes mellitus without complications
CPT/HCPCS: 71046

== ENCOUNTER 2022-12-21 10:35 | Outpatient (REF) | payer MEDICARE, SELFPAY ==
[2022-12-21 11:37] LABS: Hemoglobin 9.7 g/dl (14.0-18.0); Mean Corpuscular HGB Conc 33.4 g/dl (31.0-36.0); Mean Corpuscular Hemoglobin 31.3 pg (27.0-33.0); Mean Corpuscular Volume 93.5 fL (80.0-98.0); Mean Platelet Volume 9.5 fL (9.4-12.4); Platelet Count 223 X10*3/uL (160-400); Red Cell Distribution Width 14.9 % (11.0-16.0)
[2022-12-21 11:48] LABS: B Type Natriuretic Peptide 72 pg/mL (<100)
[2022-12-21 12:01] LABS: Prothrombin Time 10.9 SEC (10.0-13.1)
[2022-12-21 12:14] LABS: Anion Gap 14 (12-20); Blood Urea Nitrogen 51 mg/dL (9-16); Calcium 9.1 mg/dL (8.4-10.2); Carbon Dioxide 25 mmol/L (22-29); Chloride 99 mmol/L (96-108); Estimated Glomerular Filt Rate 39; Glucose Random 279 mg/dL (60-115); Potassium 5.4 mmol/L (3.3-5.1); Sodium 133 mmol/L (135-145)
[2022-12-21 12:33] LABS: Thyroid Stimulating Hormone 73.65 uIU/mL (0.32-4.0)
== END 2022-12-21 10:36 | disposition home or self-care (01) ==
LOC: HO.LAB 10:35
PROVIDERS: Internal Medicine Cardiovascular Disease; PCP Internal Medicine; Visit Provider Nurse Practitioner Family
DX: I25.10 Atherosclerotic heart disease of native coronary artery without angina pectoris (principal); I48.0 Paroxysmal atrial fibrillation; I25.5 Ischemic cardiomyopathy; Z98.890 Other specified postprocedural states
CPT/HCPCS: 36415; 80048; 83880; 84443; 85027; 85610

== ENCOUNTER → 2022-12-23 13:49 | Outpatient (BNVA) | payer MEDICARE, SELFPAY | PROVIDERS: PCP Internal Medicine; Referring Provider Internal Medicine; Visit Provider Nurse Practitioner Family | DX: I25.10 Atherosclerotic heart disease of native coronary artery without angina pectoris (principal); I25.5 Ischemic cardiomyopathy; I50.20 Unspecified systolic (congestive) heart failure; I48.0 Paroxysmal atrial fibrillation; Z98.890 Other specified postprocedural states | CPT/HCPCS: 93005; 99212 ==

== ENCOUNTER 2023-02-24 10:25 | Outpatient (REF) | payer MEDICARE, SELFPAY ==
[2023-02-24 10:57] LABS: Hematocrit 31.6 % (42.0-52.0); Hemoglobin 10.8 g/dl (14.0-18.0); Mean Corpuscular HGB Conc 34.2 g/dl (31.0-36.0); Mean Corpuscular Hemoglobin 30.3 pg (27.0-33.0); Mean Corpuscular Volume 88.8 fL (80.0-98.0); Mean Platelet Volume 9.7 fL (9.4-12.4); Platelet Count 230 X10*3/uL (160-400); Red Blood Count 3.56 X10*6/uL (4.60-5.80); Red Cell Distribution Width 13.8 % (11.0-16.0); White Blood Count 12.8 X10*3/uL (4.8-10.8)
[2023-02-24 11:56] LABS: Anion Gap 16 (12-20); Blood Urea Nitrogen 89 mg/dL (9-16); Calcium 9.3 mg/dL (8.4-10.2); Carbon Dioxide 23 mmol/L (22-29); Chloride 97 mmol/L (96-108); Estimated Glomerular Filt Rate 36; Glucose Random 251 mg/dL (60-115); Potassium 5.3 mmol/L (3.3-5.1); Sodium 131 mmol/L (135-145)
== END 2023-02-24 10:26 | disposition home or self-care (01) ==
LOC: HO.LAB 10:25
PROVIDERS: PCP Internal Medicine; Visit Provider Internal Medicine Cardiovascular Disease
DX: I25.5 Ischemic cardiomyopathy (principal)
CPT/HCPCS: 36415; 80048; 85027

== ENCOUNTER 2023-03-01 10:22 | Outpatient (REF) | payer MEDICARE, SELFPAY | END 2023-03-01 10:23 | disposition home or self-care (01) | LOC: HO.LAB 10:22 | PROVIDERS: Visit Provider Internal Medicine Cardiovascular Disease | DX: Z13.89 Encounter for screening for other disorder (principal) ==

== ENCOUNTER → 2023-03-02 08:15 | Outpatient (BNVA) | payer MEDICARE, SELFPAY | PROVIDERS: PCP Internal Medicine; Referring Provider Internal Medicine; Visit Provider Internal Medicine Cardiovascular Disease | DX: I20.8 Other forms of angina pectoris (principal); I48.0 Paroxysmal atrial fibrillation; I50.20 Unspecified systolic (congestive) heart failure | CPT/HCPCS: 93005; 99212 ==

== ENCOUNTER → 2023-05-10 10:36 | Outpatient (BNVA) | payer MEDICARE, SELFPAY | PROVIDERS: PCP Internal Medicine; Referring Provider Internal Medicine; Visit Provider Internal Medicine Cardiovascular Disease | DX: I11.0 Hypertensive heart disease with heart failure (principal); I50.22 Chronic systolic (congestive) heart failure; I48.0 Paroxysmal atrial fibrillation; I25.5 Ischemic cardiomyopathy; E11.22 Type 2 diabetes mellitus with diabetic chronic kidney disease; N18.9 Chronic kidney disease, unspecified; Z45.018 Encounter for adjustment and management of other part of cardiac pacemaker | CPT/HCPCS: 93005; 99212 ==

== ENCOUNTER → 2023-06-03 23:59 | Outpatient (BNV) | payer MEDICARE, SELFPAY ==
--- NOTE | 2023-06-03 11:25 | MHC.OFFVIS ---
Intake Intake Visit Reasons: Remote HF Monitoring- [employer]tr[employer] Allergies vancomycin [VANCOMYCIN] Allergy (Severe, Verified 12/23/22 13:53) STOMACH UPSET, ill PFSH Medical History (Updated 05/10/23 @ 11:09 by Haja Mullins MD) Abdominal wall abscess Abnormal nuclear stress test Acute appendicitis CVA (cerebral vascular accident) Diabetes Diabetes mellitus Heart failure with reduced ejection fraction History of left below knee amputation HTN (hypertension) ICD (implantable cardioverter-defibrillator) in place Paroxysmal atrial fibrillation Preop cardiovascular exam Stage II pressure ulcer of sacral region Surgical History H/O exploratory laparotomy H/O right hemicolectomy History of transmetatarsal amputation of right foot Hx of cholecystectomy Family History Father Stroke Aortic valve replaced Mother No problems noted. Social History Household Members: None Household Members Other:: Mother- takes care of her Caregiver staying overnight: No Housing: House Do you presently have visiting nurse or other home services: No Unable to assess alcohol history related to: Unknown Alcohol intake: former Patient Tobacco Use Status: Former Tobacco user Advance Directives Date on File: 01/06/21 service: No Current occupational status: retired and disabled Office Procedures Cardiac Device Check Cardiac Device Check Details: Remote heart failure report generated 06/03/2023. OptiVol is rising but still within normal limits. Will follow-up with patient clinically [id number] Cardiac Device Interrogation, cardio physiologic monitor Procedure code (CPT) selection complete Coding Level of Care Code Procedure Only Diagnoses CPT Codes Cardiac Device Check - Cardiac Device 15: [id number] Cardiac Device Interrogation, cardio physiologic monitor ([id number])
== END ==
PROVIDERS: PCP Internal Medicine; Visit Provider Internal Medicine Cardiovascular Disease
DX: I50.20 Unspecified systolic (congestive) heart failure (principal); Z95.810 Presence of automatic (implantable) cardiac defibrillator
CPT/HCPCS: 93297

== ENCOUNTER → 2023-07-04 23:59 | Outpatient (BNV) | payer MEDICARE, SELFPAY ==
--- NOTE | 2023-07-07 09:54 | A.OFFVIS_ITS ---
Intake Intake Visit Reasons: Remote HF monitoring- [employer] Allergies vancomycin [VANCOMYCIN] Allergy (Severe, Verified 12/23/22 13:53) STOMACH UPSET, ill PFSH Medical History (Updated 05/10/23 @ 11:09 by Haja Mullins MD) Abdominal wall abscess Abnormal nuclear stress test Acute appendicitis CVA (cerebral vascular accident) Diabetes Diabetes mellitus Heart failure with reduced ejection fraction History of left below knee amputation HTN (hypertension) ICD (implantable cardioverter-defibrillator) in place Paroxysmal atrial fibrillation Preop cardiovascular exam Stage II pressure ulcer of sacral region Surgical History H/O exploratory laparotomy H/O right hemicolectomy History of transmetatarsal amputation of right foot Hx of cholecystectomy Family History Father Stroke Aortic valve replaced Mother No problems noted. Social History Household Members: None Household Members Other:: Mother- takes care of her Caregiver staying overnight: No Housing: House Do you presently have visiting nurse or other home services: No Unable to assess alcohol history related to: Unknown Alcohol intake: former Patient Tobacco Use Status: Former Tobacco user Advance Directives Date on File: 01/06/21 service: No Current occupational status: retired and disabled Office Procedures Cardiac Device Check Cardiac Device Check Details: Remote heart failure report generated 07/12/2023. OptiVol is above normal limits. Will follow-up with patient regarding heart failure symptoms. Follow- up in 1 month [id number] Cardiac Device Interrogation, cardio physiologic monitor Procedure code (CPT) selection complete Coding Level of Care Code Procedure Only Diagnoses CPT Codes Cardiac Device Check - Cardiac Device 15: [id number] Cardiac Device Interrogation, cardio physiologic monitor ([id number])
== END ==
PROVIDERS: PCP Internal Medicine; Visit Provider Internal Medicine Cardiovascular Disease
DX: I50.20 Unspecified systolic (congestive) heart failure (principal); Z95.810 Presence of automatic (implantable) cardiac defibrillator
CPT/HCPCS: 93297

== ENCOUNTER → 2023-08-04 23:59 | Outpatient (BNV) | payer MEDICARE, SELFPAY ==
--- NOTE | 2023-08-09 10:44 | MHC.OFFVIS ---
Intake Intake Visit Reasons: Remote HF Monitoring- [employer] Allergies vancomycin [VANCOMYCIN] Allergy (Severe, Verified 12/23/22 13:53) STOMACH UPSET, ill PFSH Medical History (Updated 05/10/23 @ 11:09 by Haja Mullins MD) ICD (implantable cardioverter-defibrillator) in place Stage II pressure ulcer of sacral region Diabetes mellitus Abdominal wall abscess Abnormal nuclear stress test Preop cardiovascular exam Paroxysmal atrial fibrillation Heart failure with reduced ejection fraction History of left below knee amputation HTN (hypertension) Acute appendicitis CVA (cerebral vascular accident) Diabetes Surgical History H/O right hemicolectomy H/O exploratory laparotomy Hx of cholecystectomy History of transmetatarsal amputation of right foot Family History Father Stroke Aortic valve replaced Mother No problems noted. Social History Household Members: None Household Members Other:: Mother- takes care of her Caregiver staying overnight: No Housing: House Do you presently have visiting nurse or other home services: No Unable to assess alcohol history related to: Unknown Alcohol intake: former Patient Tobacco Use Status: Former Tobacco user Advance Directives Date on File: 01/06/21 service: No Current occupational status: retired and disabled Office Procedures Cardiac Device Check Cardiac Device Check Details: Remote heart failure report generated 08/04/2023. Heart failure parameters are within normal range [id number] Cardiac Device Interrogation, cardio physiologic monitor Procedure code (CPT) selection complete Coding Level of Care Code Procedure Only CPT Codes Cardiac Device Check - Cardiac Device 15: [id number] Cardiac Device Interrogation, cardio physiologic monitor ([id number])
== END ==
PROVIDERS: PCP Internal Medicine; Visit Provider Internal Medicine Cardiovascular Disease
DX: I50.20 Unspecified systolic (congestive) heart failure (principal); Z95.810 Presence of automatic (implantable) cardiac defibrillator
CPT/HCPCS: 93297

== ENCOUNTER → 2023-08-04 23:59 | Outpatient (BNV) | payer MEDICARE, SELFPAY ==
--- NOTE | 2023-08-09 10:45 | MHC.OFFVIS ---
Intake Intake Visit Reasons: Remote ICD Check- [employer] Allergies vancomycin [VANCOMYCIN] Allergy (Severe, Verified 12/23/22 13:53) STOMACH UPSET, ill PFSH Medical History (Updated 05/10/23 @ 11:09 by Haja Mullins MD) ICD (implantable cardioverter-defibrillator) in place Stage II pressure ulcer of sacral region Diabetes mellitus Abdominal wall abscess Abnormal nuclear stress test Preop cardiovascular exam Paroxysmal atrial fibrillation Heart failure with reduced ejection fraction History of left below knee amputation HTN (hypertension) Acute appendicitis CVA (cerebral vascular accident) Diabetes Surgical History H/O right hemicolectomy H/O exploratory laparotomy Hx of cholecystectomy History of transmetatarsal amputation of right foot Family History Father Stroke Aortic valve replaced Mother No problems noted. Social History Household Members: None Household Members Other:: Mother- takes care of her Caregiver staying overnight: No Housing: House Do you presently have visiting nurse or other home services: No Unable to assess alcohol history related to: Unknown Alcohol intake: former Patient Tobacco Use Status: Former Tobacco user Advance Directives Date on File: 01/06/21 service: No Current occupational status: retired and disabled Office Procedures Cardiac Device Check Cardiac Device Check Details: Remote ICD report generated 08/04/2023. ICD function is adequate 30460-Wesmzo Cardiac Interrogation, implant defibrillator w/interim Procedure code (CPT) selection complete Coding Level of Care Code Procedure Only CPT Codes Cardiac Device Check - Cardiac Device 13: 25042-Lbfuwi Cardiac Interrogation, implant defibrillator w/interim ([id number])
== END ==
PROVIDERS: PCP Internal Medicine; Visit Provider Internal Medicine Cardiovascular Disease
DX: I25.5 Ischemic cardiomyopathy (principal); Z95.810 Presence of automatic (implantable) cardiac defibrillator
CPT/HCPCS: 93295

== ENCOUNTER → 2023-10-05 23:59 | Outpatient (BNV) | payer MEDICARE, SELFPAY ==
--- NOTE | 2023-10-11 11:09 | A.OFFVIS_ITS ---
Intake Intake Visit Reasons: Remote HF Monitoring- [employer] Allergies vancomycin [VANCOMYCIN] Allergy (Severe, Verified 12/23/22 13:53) STOMACH UPSET, ill PFSH Medical History (Updated 05/10/23 @ 11:09 by Haja Mullins MD) ICD (implantable cardioverter-defibrillator) in place Stage II pressure ulcer of sacral region Diabetes mellitus Abdominal wall abscess Abnormal nuclear stress test Preop cardiovascular exam Paroxysmal atrial fibrillation Heart failure with reduced ejection fraction History of left below knee amputation HTN (hypertension) Acute appendicitis CVA (cerebral vascular accident) Diabetes Surgical History H/O right hemicolectomy H/O exploratory laparotomy Hx of cholecystectomy History of transmetatarsal amputation of right foot Family History Father Stroke Aortic valve replaced Mother No problems noted. Household Members: None Household Members Other:: Mother- takes care of her Caregiver staying overnight: No Housing: House Do you presently have visiting nurse or other home services: No Unable to assess alcohol history related to: Unknown Alcohol intake: former Patient Tobacco Use Status: Former Tobacco user Advance Directives Date on File: 01/06/21 service: No Current occupational status: retired and disabled Office Procedures Cardiac Device Check Cardiac Device Check Details: Remote heart failure report generated 10/05/2023. Heart failure marker, OptiVol is rising although still within normal limits. Follow-up with patient 52607-Jynjwj Cardiac Device Interrogation, cardio physiologic monitor Procedure code (CPT) selection complete Coding Level of Care Code Procedure Only CPT Codes Cardiac Device Check - Cardiac Device 15: [id number] Cardiac Device Inter rogation, cardio physiologic monitor ([id number])
== END ==
PROVIDERS: PCP Internal Medicine; Visit Provider Internal Medicine Cardiovascular Disease
DX: I50.20 Unspecified systolic (congestive) heart failure (principal); Z95.810 Presence of automatic (implantable) cardiac defibrillator
CPT/HCPCS: 93297

== ENCOUNTER → 2023-11-05 23:59 | Outpatient (BNV) | payer MEDICARE, SELFPAY ==
--- NOTE | 2023-11-16 08:42 | MHC.OFFVIS ---
Intake Intake Visit Reasons: Remote ICD Check- [employer] Allergies vancomycin [VANCOMYCIN] Allergy (Severe, Verified 12/23/22 13:53) STOMACH UPSET, ill PFSH Medical History (Updated 05/10/23 @ 11:09 by Haja Mullins MD) ICD (implantable cardioverter-defibrillator) in place Stage II pressure ulcer of sacral region Diabetes mellitus Abdominal wall abscess Abnormal nuclear stress test Preop cardiovascular exam Paroxysmal atrial fibrillation Heart failure with reduced ejection fraction History of left below knee amputation HTN (hypertension) Acute appendicitis CVA (cerebral vascular accident) Diabetes Surgical History H/O right hemicolectomy H/O exploratory laparotomy Hx of cholecystectomy History of transmetatarsal amputation of right foot Family History Father Stroke Aortic valve replaced Mother No problems noted. Social History Household Members: None Household Members Other:: Mother- takes care of her Caregiver staying overnight: No Housing: House Do you presently have visiting nurse or other home services: No Unable to assess alcohol history related to: Unknown Alcohol intake: former Comment: medicated, see MAR Patient Tobacco Use Status: Former Tobacco user Advance Directives Date on File: 01/06/21 service: No Current occupational status: retired and disabled Office Procedures Cardiac Device Check Cardiac Device Check Details: Remote ICD report generated 11/05/2023. ICD function is adequate [id number] Cardiac Device Interrogation, cardio physiologic monitor Procedure code (CPT) selection complete Assessment & Plan Assessment & Plan (1) ICD (implantable cardioverter-defibrillator) in place: Comment: Single-chamber Medtronic ICD implanted, March 2023 Code(s): Z95.810 - Presence of automatic (implantable) cardiac defibrillator Plan: See above Coding Level of Care Code Procedure Only Diagnoses ICD (implantable cardioverter-defibrillator) in place Z95.810 CPT Codes Cardiac Device Check - Cardiac Device 15: [id number] Cardiac Device Interrogation, cardio physiologic monitor ([id number])
== END ==
PROVIDERS: PCP Internal Medicine; Visit Provider Internal Medicine Cardiovascular Disease
DX: I50.20 Unspecified systolic (congestive) heart failure (principal); Z95.810 Presence of automatic (implantable) cardiac defibrillator
CPT/HCPCS: 93297

== ENCOUNTER → 2023-11-05 23:59 | Outpatient (BNV) | payer MEDICARE, SELFPAY ==
--- NOTE | 2023-11-16 08:41 | MHC.OFFVIS ---
Intake Intake Visit Reasons: Remote HF Monitoring- [employer] Allergies vancomycin [VANCOMYCIN] Allergy (Severe, Verified 12/23/22 13:53) STOMACH UPSET, ill PFSH Medical History (Updated 05/10/23 @ 11:09 by Haja Mullins MD) ICD (implantable cardioverter-defibrillator) in place Stage II pressure ulcer of sacral region Diabetes mellitus Abdominal wall abscess Abnormal nuclear stress test Preop cardiovascular exam Paroxysmal atrial fibrillation Heart failure with reduced ejection fraction History of left below knee amputation HTN (hypertension) Acute appendicitis CVA (cerebral vascular accident) Diabetes Surgical History H/O right hemicolectomy H/O exploratory laparotomy Hx of cholecystectomy History of transmetatarsal amputation of right foot Family History Father Stroke Aortic valve replaced Mother No problems noted. Social History Household Members: None Household Members Other:: Mother- takes care of her Caregiver staying overnight: No Housing: House Do you presently have visiting nurse or other home services: No Unable to assess alcohol history related to: Unknown Alcohol intake: former Comment: medicated, see MAR Patient Tobacco Use Status: Former Tobacco user Advance Directives Date on File: 01/06/21 service: No Current occupational status: retired and disabled Office Procedures Cardiac Device Check Cardiac Device Check Details: Remote heart failure report generated 11/05/2023. Heart failure parameters are elevated. Will follow-up with patient clinically [id number] Cardiac Device Interrogation, cardio physiologic monitor Procedure code (CPT) selection complete Assessment & Plan Assessment & Plan (1) ICD (implantable cardioverter-defibrillator) in place: Comment: Single-chamber Medtronic ICD implanted, March 2023 Code(s): Z95.810 - Presence of automatic (implantable) cardiac defibrillator Plan: See above Coding Level of Care Code Procedure Only Diagnoses ICD (implantable cardioverter-defibrillator) in place Z95.810 CPT Codes Cardiac Device Check - Cardiac Device 15: [id number] Cardiac Device Interrogation, cardio physiologic monitor ([id number])
== END ==
PROVIDERS: PCP Internal Medicine; Visit Provider Internal Medicine Cardiovascular Disease
DX: I50.20 Unspecified systolic (congestive) heart failure (principal); Z95.810 Presence of automatic (implantable) cardiac defibrillator
CPT/HCPCS: 93297

== ENCOUNTER → 2023-12-06 23:59 | Outpatient (BNV) | payer MEDICARE, SELFPAY ==
--- NOTE | 2023-12-07 12:30 | MHC.OFFVIS ---
Intake Intake Visit Reasons: Remote HF Monitoring- Medtronic Allergies vancomycin [VANCOMYCIN] Allergy (Severe, Verified 12/23/22 13:53) STOMACH UPSET, ill PFSH Medical History (Updated 05/10/23 @ 11:09 by Haja Mullins MD) ICD (implantable cardioverter-defibrillator) in place Stage II pressure ulcer of sacral region Diabetes mellitus Abdominal wall abscess Abnormal nuclear stress test Preop cardiovascular exam Paroxysmal atrial fibrillation Heart failure with reduced ejection fraction History of left below knee amputation HTN (hypertension) Acute appendicitis CVA (cerebral vascular accident) Diabetes Surgical History H/O right hemicolectomy H/O exploratory laparotomy Hx of cholecystectomy History of transmetatarsal amputation of right foot Family History Father Stroke Aortic valve replaced Mother No problems noted. Social History Household Members: None Household Members Other:: Mother- takes care of her Caregiver staying overnight: No Housing: House Do you presently have visiting nurse or other home services: No Unable to assess alcohol history related to: Unknown Alcohol intake: former Comment: medicated, see MAR Patient Tobacco Use Status: Former Tobacco user Advance Directives Date on File: 01/06/21 service: No Current occupational status: retired and disabled Office Procedures Cardiac Device Check Cardiac Device Check Details: Remote heart failure report generated 12/06/2023. OptiVol is significantly elevated. Call has been placed to patient for follow-up for symptoms. [id number] Cardiac Device Interrogation, cardio physiologic monitor Procedure code (CPT) selection complete Assessment & Plan Assessment & Plan (1) ICD (implantable cardioverter-defibrillator) in place: Comment: Single-chamber Medtronic ICD implanted, March 2023 Code(s): Z95.810 - Presence of automatic (implantable) cardiac defibrillator Plan: See above Coding Level of Care Code Procedure Only Diagnoses ICD (implantable cardioverter-defibrillator) in place Z95.810 CPT Codes Cardiac Device Check - Cardiac Device 15: [id number] Cardiac Device Interrogation, cardio physiologic monitor ([id number])
== END ==
PROVIDERS: PCP Internal Medicine; Visit Provider Internal Medicine Cardiovascular Disease
DX: I50.20 Unspecified systolic (congestive) heart failure (principal); Z95.810 Presence of automatic (implantable) cardiac defibrillator
CPT/HCPCS: 93297

== ENCOUNTER → 2024-01-06 23:59 | Outpatient (BNV) | payer MEDICARE, SELFPAY ==
--- NOTE | 2024-01-07 14:50 | MHC.OFFVIS ---
Intake Intake Visit Reasons: Remote HF Monitoring- Medtronic Allergies vancomycin [VANCOMYCIN] Allergy (Severe, Verified 12/23/22 13:53) STOMACH UPSET, ill PFSH Medical History (Updated 05/10/23 @ 11:09 by Haja Mullins MD) ICD (implantable cardioverter-defibrillator) in place Stage II pressure ulcer of sacral region Diabetes mellitus Abdominal wall abscess Abnormal nuclear stress test Preop cardiovascular exam Paroxysmal atrial fibrillation Heart failure with reduced ejection fraction HTN (hypertension) Acute appendicitis CVA (cerebral vascular accident) Diabetes Surgical History History of left below knee amputation H/O right hemicolectomy H/O exploratory laparotomy Hx of cholecystectomy History of transmetatarsal amputation of right foot Family History Father Stroke Aortic valve replaced Mother No problems noted. Social History Household Members: None Household Members Other:: Mother- takes care of her Caregiver staying overnight: No Housing: House Do you presently have visiting nurse or other home services: No Unable to assess alcohol history related to: Unknown Alcohol intake: former Comment: medicated, see MAR Patient Tobacco Use Status: Former Tobacco user Advance Directives Date on File: 01/06/21 service: No Current occupational status: retired and disabled Office Procedures Cardiac Device Check Cardiac Device Check Details: Remote heart failure report generated 01/06/2024. Heart failure markers are within normal range [id number] Cardiac Device Interrogation, cardio physiologic monitor Procedure code (CPT) selection complete Assessment & Plan Assessment & Plan (1) ICD (implantable cardioverter-defibrillator) in place: Comment: Single-chamber Medtronic ICD implanted, March 2023 Code(s): Z95.810 - Presence of automatic (implantable) cardiac defibrillator Plan: See above Coding Level of Care Code Procedure Only Diagnoses ICD (implantable cardioverter-defibrillator) in place Z95.810 CPT Codes Cardiac Device Check - Cardiac Device 15: [id number] Cardiac Device Interrogation, cardio physiologic monitor ([id number])
== END ==
PROVIDERS: PCP Internal Medicine; Visit Provider Internal Medicine Cardiovascular Disease
DX: I50.20 Unspecified systolic (congestive) heart failure (principal); Z95.810 Presence of automatic (implantable) cardiac defibrillator
CPT/HCPCS: 93297

== ENCOUNTER → 2024-02-05 23:59 | Outpatient (BNV) | payer MEDICARE, SELFPAY ==
--- NOTE | 2024-02-07 13:20 | MHC.OFFVIS ---
Intake Intake Visit Reasons: Remote HF Monitoring- Medtronic Allergies vancomycin [VANCOMYCIN] Allergy (Severe, Verified 12/23/22 13:53) STOMACH UPSET, ill PFSH Medical History (Updated 05/10/23 @ 11:09 by Haja Mullins MD) ICD (implantable cardioverter-defibrillator) in place Stage II pressure ulcer of sacral region Diabetes mellitus Abdominal wall abscess Abnormal nuclear stress test Preop cardiovascular exam Paroxysmal atrial fibrillation Heart failure with reduced ejection fraction HTN (hypertension) Acute appendicitis CVA (cerebral vascular accident) Diabetes Surgical History History of left below knee amputation H/O right hemicolectomy H/O exploratory laparotomy Hx of cholecystectomy History of transmetatarsal amputation of right foot Family History Father Stroke Aortic valve replaced Mother No problems noted. Social History Household Members: None Household Members Other:: Mother- takes care of her Caregiver staying overnight: No Housing: House Do you presently have visiting nurse or other home services: No Unable to assess alcohol history related to: Unknown Alcohol intake: former Comment: medicated, see MAR Patient Tobacco Use Status: Former Tobacco user Advance Directives Date on File: 01/06/21 service: No Current occupational status: retired and disabled Office Procedures Cardiac Device Check Cardiac Device Check Details: Remote heart failure report generated 02/05/2024. Heart failure parameters are within normal limits [id number] Cardiac Device Interrogation, cardio physiologic monitor Procedure code (CPT) selection complete Assessment & Plan Assessment & Plan (1) ICD (implantable cardioverter-defibrillator) in place: Comment: Single-chamber Medtronic ICD implanted, March 2023 Code(s): Z95.810 - Presence of automatic (implantable) cardiac defibrillator Plan: See above Coding Level of Care Code Procedure Only Diagnoses ICD (implantable cardioverter-defibrillator) in place Z95.810 CPT Codes Cardiac Device Check - Cardiac Device 15: [id number] Cardiac Device Interrogation, cardio physiologic monitor ([id number])
== END ==
PROVIDERS: PCP Internal Medicine; Visit Provider Internal Medicine Cardiovascular Disease
DX: Z45.02 Encounter for adjustment and management of automatic implantable cardiac defibrillator (principal)
CPT/HCPCS: 93297

== ENCOUNTER → 2024-02-05 23:59 | Outpatient (BNV) | payer MEDICARE, SELFPAY ==
--- NOTE | 2024-02-07 13:21 | MHC.OFFVIS ---
Intake Intake Visit Reasons: Remote ICD Check- Medtronic Allergies vancomycin [VANCOMYCIN] Allergy (Severe, Verified 12/23/22 13:53) STOMACH UPSET, ill PFSH Medical History (Updated 05/10/23 @ 11:09 by Haja Mullins MD) ICD (implantable cardioverter-defibrillator) in place Stage II pressure ulcer of sacral region Diabetes mellitus Abdominal wall abscess Abnormal nuclear stress test Preop cardiovascular exam Paroxysmal atrial fibrillation Heart failure with reduced ejection fraction HTN (hypertension) Acute appendicitis CVA (cerebral vascular accident) Diabetes Surgical History History of left below knee amputation H/O right hemicolectomy H/O exploratory laparotomy Hx of cholecystectomy History of transmetatarsal amputation of right foot Family History Father Stroke Aortic valve replaced Mother No problems noted. Social History Household Members: None Household Members Other:: Mother- takes care of her Caregiver staying overnight: No Housing: House Do you presently have visiting nurse or other home services: No Unable to assess alcohol history related to: Unknown Alcohol intake: former Comment: medicated, see MAR Patient Tobacco Use Status: Former Tobacco user Advance Directives Date on File: 01/06/21 service: No Current occupational status: retired and disabled Office Procedures Cardiac Device Check Cardiac Device Check Details: Remote ICD report generated 02/05/2024. ICD function is adequate [id number] Cardiac Interrogation, implant defibrillator w/interim Procedure code (CPT) selection complete Assessment & Plan Assessment & Plan (1) ICD (implantable cardioverter-defibrillator) in place: Comment: Single-chamber Medtronic ICD implanted, March 2023 Code(s): Z95.810 - Presence of automatic (implantable) cardiac defibrillator Plan: See above Coding Level of Care Code Procedure Only Diagnoses ICD (implantable cardioverter-defibrillator) in place Z95.810 CPT Codes Cardiac Device Check - Cardiac Device 13: [id number] Cardiac Interrogation, implant defibrillator w/interim ([id number])
== END ==
PROVIDERS: PCP Internal Medicine; Visit Provider Internal Medicine Cardiovascular Disease
DX: I50.20 Unspecified systolic (congestive) heart failure (principal); Z95.810 Presence of automatic (implantable) cardiac defibrillator
CPT/HCPCS: 93295

== ENCOUNTER → 2024-03-07 23:59 | Outpatient (BNV) | payer MEDICARE, SELFPAY ==
--- NOTE | 2024-03-07 16:35 | MHC.OFFVIS ---
Intake Visit Reasons: REmote HF monitoring- Medtronic Allergies vancomycin [VANCOMYCIN] Allergy (Severe, Verified 12/23/22 13:53) STOMACH UPSET, ill PFSH Medical History (Updated 05/10/23 @ 11:09 by Haja Mullins MD) ICD (implantable cardioverter-defibrillator) in place Stage II pressure ulcer of sacral region Diabetes mellitus Abdominal wall abscess Abnormal nuclear stress test Preop cardiovascular exam Paroxysmal atrial fibrillation Heart failure with reduced ejection fraction HTN (hypertension) Acute appendicitis CVA (cerebral vascular accident) Diabetes Surgical History History of left below knee amputation H/O right hemicolectomy H/O exploratory laparotomy Hx of cholecystectomy History of transmetatarsal amputation of right foot Family History Father Stroke Aortic valve replaced Mother No problems noted. Social History Household Members: None Household Members Other:: Mother- takes care of her Caregiver staying overnight: No Housing: House Do you presently have visiting nurse or other home services: No Unable to assess alcohol history related to: Unknown Alcohol intake: former Comment: medicated, see MAR Patient Tobacco Use Status: Former Tobacco user Advance Directives Date on File: 01/06/21 service: No Current occupational status: retired and disabled Office Procedures Cardiac Device Check Cardiac Device Check Details: Remote heart failure report generated 03/07/2024. Heart failure parameters are within normal limits [id number] Cardiac Device Interrogation, cardio physiologic monitor Procedure code (CPT) selection complete Assessment & Plan Assessment & Plan (1) ICD (implantable cardioverter-defibrillator) in place: Comment: Single-chamber Medtronic ICD implanted, March 2023 Code(s): Z95.810 - Presence of automatic (implantable) cardiac defibrillator Category: Medical Plan: See above Coding Level of Care Code Procedure Only Diagnoses ICD (implantable cardioverter-defibrillator) in place Z95.810 CPT Codes Cardiac Device Check - Cardiac Device 15: [id number] Cardiac Device Interrogation, cardio physiologic monitor ([id number])
== END ==
PROVIDERS: PCP Internal Medicine; Visit Provider Internal Medicine Cardiovascular Disease
DX: Z45.02 Encounter for adjustment and management of automatic implantable cardiac defibrillator (principal)
CPT/HCPCS: 93297

== ENCOUNTER 2024-03-23 13:14 | Inpatient (IN) | payer MEDICARE, SELFPAY ==
[2024-03-23] VITALS (9 sets, daily range): BP systolic 104–133; BP diastolic 45–60; PULSE 66–86; RESP 16–24; TEMP 36.8–37.1; O2SAT 97–99; BMI 29.2
--- NOTE | ~2024-03-23 | XR_ITS ---
EXAMINATION: XR CHEST CLINICAL INFORMATION: Chest pain, SOB COMPARISON: Chest xray on 03/23/24 TECHNIQUE: Frontal view of the chest was obtained. FINDINGS: The cardiac silhouette is normal. There is mild diffuse bronchial wall thickening. There are no areas of consolidation. There are no pleural effusions or pneumothoraces. The bones and soft tissues are unremarkable for the patient's age. There is a left chest ICD. XR/XR chest 1V IMPRESSION: Bronchial wall thickening may be infectious and/or inflammatory in etiology.
--- NOTE | ~2024-03-23 | XR_ITS ---
EXAMINATION: XR CHEST CLINICAL INFORMATION: Weakness COMPARISON: Chest 08/12/2022 TECHNIQUE: AP upright and lateral views of the chest were obtained. 3:40 PM FINDINGS: Interval placement of single lead AICD with a electronic pack placed over the left hemithorax. There is stable elevation of the right hemidiaphragm. There is no focal consolidation, interstitial pulmonary edema or pneumothorax. No pleural effusion. The cardiomediastinal silhouette is within normal limits. The bones are markedly demineralized. Interval increase in compression fractures in the thoracic spine. XR/XR chest 2V IMPRESSION: 1. No acute abnormality. 2. Interval increase in compression fractures in the thoracic spine consistent with osteoporosis.
--- NOTE | ~2024-03-23 | XR_ITS ---
EXAMINATION: XR CHEST CLINICAL INFORMATION: Shortness of breath COMPARISON: CT radiograph from 04/05/2024 TECHNIQUE: Frontal view of the chest was obtained. FINDINGS: Potential left retrocardiac radiopacity which may reflect atelectasis versus evolving infectious/inflammatory etiology. No pneumothorax. Trachea is midline. Left chest wall pacer. Cardiac mediastinal silhouette is not enlarged. No large pleural effusion. Osseous structures are intact. Soft tissues are unremarkable. XR/XR chest 1V IMPRESSION: Potential left retrocardiac radiopacity which may reflect atelectasis versus evolving infectious/inflammatory etiology.
--- NOTE | ~2024-03-23 | CT_ITS ---
EXAMINATION: CT ABDOMEN AND PELVIS WITHOUT CONTRAST CLINICAL INFORMATION: Retroperitoneal abscess, elevated white blood cell count. COMPARISON: CT abdomen and pelvis 03/23/2024, CT drainage procedure 03/24/2024. TECHNIQUE: Multidetector volumetric imaging was performed from the superior aspect of the liver through the pubic symphysis. Sagittal and coronal reformatted images were obtained on the technologist's workstation. This CT examination was performed using dose optimization techniques as appropriate, variously including the following: *Automated exposure control *Adjustment of mA and/or kV according to patient size (this includes techniques or standardized protocols for targeted exams where dose is matched to indication/reason for exam; i.e. extremities or head) *Use of iterative reconstruction technique DLP: 867 mGy-cm FINDINGS: LUNG BASES: Increased small left pleural effusion compared to 03/23/2024. Stable pleural calcification along the posterior visceral pleura of the right lower lobe. LIVER, GALLBLADDER, AND BILIARY TREE: The liver is normal in size, shape, and attenuation. No focal hepatic lesion or biliary ductal dilatation is present. Cholecystectomy. PANCREAS: No discrete mass. No ductal dilatation. SPLEEN: Unremarkable. ADRENAL GLANDS: Stable probable myelolipoma in the left adrenal gland. KIDNEYS AND URETERS: Simple cyst in the upper pole right kidney. No nephrolithiasis or hydronephrosis. BLADDER: Unremarkable. GASTROINTESTINAL TRACT: The small and large bowel are normal in caliber. ABDOMINAL WALL: There are 2 percutaneous drainage catheters in the right lower quadrant terminating in the superficial abdominal wall and in the muscular abdominal wall between the oblique muscles. In addition there is a chronic sinus tract measuring 8 cm in length and 1.3 cm in diameter from the skin surface to the region of the drainage catheters. The large multiloculated and multi compartment fluid collections seen on the previous exam is nearly completely collapsed with no real measurable collection remaining. LYMPH NODES: No lymphadenopathy. VASCULAR: Moderate aortoiliac atherosclerosis. No aneurysm. PELVIC VISCERA: Unremarkable. OSSEOUS STRUCTURES: Degenerative changes in the spine. Again question avascular necrosis of the femoral heads CT/CT abdomen pelvis wo IV con IMPRESSION: Percutaneous drainage catheters are in unchanged position from recent procedural imaging. The large complex collection in the superficial abdominal wall and in the retroperitoneum is almost completely drained with no measurable collection remaining. Correlate with drainage catheter output. There is a chronic sinus tract from the skin surface to the abdominal wall in this location.
--- NOTE | ~2024-03-23 | CT_ITS ---
CLINICAL HISTORY: Recurrent right retroperitoneal and right flank abscess PROCEDURES: 1. Limited preprocedure CT of the abdomen. Permanent images saved in PACS. 2. CT-guided drainage of the right retroperitoneal and right flank abscess 3. Limited post procedure CT of the abdomen. Permanent images saved in PACS. CLINICIANS: Bryson Guardado PA-C Preprocedural imaging reviewed with Dr. Burnett MEDICATIONS: -Versed 1.5 mg, Fentanyl 75 mcg, and lidocaine 1% 10 mL SQ -Antibiotics: None -For additional details, please see nursing flowsheet. COMPLICATIONS: None ESTIMATED BLOOD LOSS: < 5 ml CONTRAST: None SPECIMENS: A specimen was sent for culture. MODERATE SEDATION TIME: 40 min PROCEDURE NOTE: The procedure, risks, benefits, and alternatives were carefully explained to the patient and written informed consent was obtained. The patient was placed supine on the CT table. A timeout was performed. A limited CT of the abdomen was performed to localize the right retroperitoneal and right superficial fluid collections and choose appropriate needle entry and trajectory. The patient was prepped and draped in usual sterile fashion. The skin and subcutaneous tissues were anesthetized with lidocaine. Under CT guidance, a 5 [place] Yueh needle/catheter was advanced into the right retroperitoneal abscess. Thick, purulent fluid was immediately aspirated. A 0.035 J wire was inserted through the the catheter and coiled in the fluid collection. The Yueh catheter was then removed over the wire. The tract was then serially dilated. Over the wire, a 12 fr all-purpose drainage catheter was advanced and coiled into the fluid collection under CT guidance. The wire was then removed. A total of 300 ml of thick purulent fluid was removed and sent for culture. The catheter was secured to the skin with a 2-0 nylon suture. A SHY bulb was then attached to the drainage catheter. Next, a 5 [place] Yueh needle/catheter was advanced into the superficial right flank abscess. Thick/purulent/bloody fluid was immediately aspirated. A 0.035 J wire was inserted through the the catheter and coiled in the superficial fluid collection. The Yueh catheter was then removed over the wire. The tract was then serially dilated. Over the wire, a 10 fr all-purpose drainage catheter was advanced and coiled into the fluid collection under CT guidance. The wire was then removed. A total of 10 ml of fluid was removed. The catheter was secured to the skin with a 2-0 nylon suture. A SHY bulb was then attached to the drainage catheter. A limited postprocedure CT of the abdomen was then obtained. The patient was stable after the procedure and was transferred to the post anesthesia care unit. The procedure was done under moderate sedation with a dedicated nurse for monitoring of vital signs. CT/CT drain retroperitoneal IMPRESSION: 1. CT guided drainage of the right retroperitoneal and right flank abscess. 2. Placement of 2 pigtail drainage catheters within the right retroperitoneal and right flank abscesses. This procedure was performed by Bryson Guardado PA-C and supervised by Dr. Burnett.
--- NOTE | ~2024-03-23 | CT_ITS ---
EXAMINATION: CT ABDOMEN AND PELVIS WITHOUT CONTRAST CLINICAL INFORMATION: Right flank pain. COMPARISON: 05/26/2022 TECHNIQUE: Multidetector volumetric imaging was performed from the superior aspect of the liver through the pubic symphysis. Sagittal and coronal reformatted images were obtained on the technologist's workstation. This CT examination was performed using dose optimization techniques as appropriate, variously including the following: *Automated exposure control *Adjustment of mA and/or kV according to patient size (this includes techniques or standardized protocols for targeted exams where dose is matched to indication/reason for exam; i.e. extremities or head) *Use of iterative reconstruction technique DLP: 1012 mGy-cm FINDINGS: LUNG BASES: Hyperdense fluid layering in the right pleural space. Small left pleural effusion. Small hiatal hernia. Gynecomastia. LIVER, GALLBLADDER, AND BILIARY TREE: The noncontrast liver is normal in size, shape, and attenuation. No biliary ductal dilatation is present. The gallbladder is surgically absent. PANCREAS: Unremarkable. SPLEEN: Enlarged. Measures 15.9 cm in AP dimension. ADRENAL GLANDS: 2.5 x 2.1 cm left adrenal nodule. Right adrenal gland is unremarkable. KIDNEYS AND URETERS: The kidneys are symmetric in size. There is anterior displacement of the right kidney. There is extensive bilateral perinephric stranding. There is a hypoattenuating mass in the interpolar region of the right kidney measuring 3.6 x 4.6 cm likely representing a cyst. No hydronephrosis. BLADDER: Distended. GASTROINTESTINAL TRACT: Fecal impaction in the colon. No small bowel obstruction. ABDOMINAL WALL: Complex loculated collection in the right posterior pararenal space extending to the right flank and right posterior paraspinal region measures 20.5 x 17.4 x 20.7 cm. There is involvement of the right psoas and iliopsoas muscles. LYMPH NODES: No bulky lymphadenopathy. VASCULAR: Normal caliber abdominal aorta. PELVIC VISCERA: Unremarkable. OSSEOUS STRUCTURES: The bones are osteopenic. There is sclerosis of bilateral femoral heads. There are ill-defined lucent lesions within bilateral femurs and the pelvic bones. CT/CT abdomen pelvis wo IV con IMPRESSION: Evaluation is limited by the lack of intravenous contrast. Layering hyperdense fluid in the right pleural space. Small left pleural effusion. Dedicated chest CT is recommended. New complex loculated collection in the right posterior pararenal space extending to the right flank and right posterior paraspinal region measures 20.5 x 17.4 x 20.7 cm. There is involvement of the right psoas and iliopsoas muscles. No internal foci of gas. No bone destruction. Infection cannot be excluded. Consider MRI for further characterization. Possible avascular necrosis of the femoral heads. There are ill-defined lucent lesions within bilateral femurs and the pelvic bones. Consider correlation with nuclear medicine bone scan. Splenomegaly.
--- NOTE | ~2024-03-23 | CT_ITS ---
EXAMINATION: CT ABDOMEN AND PELVIS WITHOUT CONTRAST CLINICAL INFORMATION: Abscess drainage catheter follow-up COMPARISON: 03/29/2024 TECHNIQUE: Multidetector volumetric imaging was performed from the superior aspect of the liver through the pubic symphysis. Sagittal and coronal reformatted images were obtained on the technologist's workstation. This CT examination was performed using dose optimization techniques as appropriate, variously including the following: *Automated exposure control *Adjustment of mA and/or kV according to patient size (this includes techniques or standardized protocols for targeted exams where dose is matched to indication/reason for exam; i.e. extremities or head) *Use of iterative reconstruction technique DLP: 899 mGy-cm FINDINGS: LUNG BASES: Bibasilar effusions left greater than right with right basilar pleural calcification. Atelectasis at the lung bases. No change. LIVER, GALLBLADDER, AND BILIARY TREE: Unenhanced liver grossly normal. No focal mass or intrahepatic biliary dilatation. The gallbladder is surgically absent. PANCREAS: Unremarkable. SPLEEN: Unremarkable. 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 Right adrenal stable and appears normal. KIDNEYS AND URETERS: Perinephric stranding stable. No nephrolithiasis or hydronephrosis. Stable simple appearing cyst, in the posterior lower right kidney which is unchanged. No further workup needed. BLADDER: Distended. No change. No focal mass. GASTROINTESTINAL TRACT: No bowel obstruction or right or left lower quadrant inflammatory change. There appears to be an ingested tablet within the stomach which is decompressed. There are surgical sutures at the base of the cecum or in the right lower quadrant bowel loops. No change. ABDOMINAL WALL: Previously described 2 percutaneous drainage catheters in the right lower quadrant terminated in the superficial abdominal wall and in the muscular abdominal wall between the oblique muscles are again noted. Note was made on the prior examination of a chronic sinus tract extending to the skin surface from the catheters which is stable. New collections are not seen. New drainable collections are not observed. The 2 catheters, appears stable in appearance. There is still residual induration in the adjacent fat and subcutaneous tissue. No real measurable collection remains. LYMPH NODES: Normal. VASCULAR: Aorta is atherosclerotic but nonaneurysmal. PELVIC VISCERA: Unremarkable. OSSEOUS STRUCTURES: Multilevel advanced degenerative change in the spine. Mild sclerotic changes in the right and left femoral head stable. CT/CT abdomen pelvis wo IV con IMPRESSION: Stable appearance in the percutaneous drainage catheters. No enlarging collections or drainable collections. Stable chronic appearing sinus tract from the skin surface to the abdominal wall at the level of these drainage catheters. Overall no change from 03/29/2024. Fleischner guidelines were followed.
--- NOTE | 2024-03-23 14:18 | ED.WEAKNESS ---
HPI - Weakness General Chief complaint: Weakness Stated complaint: WEAKNESS, VSS, GCS15 Time Seen by Provider: 03/23/24 14:01 Source: patient and EMS Mode of arrival: EMS Limitations: no limitations History of Present Illness HPI Narrative: 64-year-old male past medical history significant for hyponatremia ICD malnutrition ischemic cardiomyopathy depression coronary artery disease paroxysmal atrial fibrillation heart failure diabetes perforated appendix with abscess requiring IR drainage and then abdominal washout, development of enterocutaneous fistula, recurrent abscess formation, eventually resulting in R hemicolectomy in 2018. 2020 again found to have a large fluid collection followed by you in [address] guided drainage againwho lives alone. Patient presents stating he has no strength to toilet has had some diarrhea right hip pain and pain to his knee. MD Complaint: generalized weakness Related Data Home Medications ?Medication ?Instructions ?Recorded ?Confirmed amiodarone 200 mg tablet 200 mg PO DAILY 05/07/21 05/10/23 multivitamin 1 tab PO DAILY 04/07/22 05/10/23 zolpidem 10 mg tablet 10 mg PO BEDTIME PRN Sleep 04/07/22 05/10/23 omeprazole 20 mg capsule,delayed 20 mg PO BID 12/23/22 05/10/23 release Previous Rx's ?Medication ?Instructions ?Recorded carvedilol 6.25 mg tablet 6.25 mg PO BID #60 tabs 04/10/21 sertraline 25 mg tablet 25 mg PO DAILY #30 tabs 06/04/22 aspirin 81 mg tablet,delayed 81 mg PO DAILY #14 tabs 06/25/22 release nitroglycerin 0.4 mg sublingual 0.4 mg sublingual Q5M PRN chest 03/02/23 tablet pain #100 tabs rosuvastatin 10 mg tablet 10 mg PO DAILY #90 tabs 09/01/23 bumetanide 1 mg tablet 2 mg (2 x 1 mg) PO BID 90 days 11/19/23 #360 tabs Allergies Allergy/AdvReac Type Severity Reaction Status Date / Time vancomycin [VANCOMYCIN] Allergy Severe STOMACH Verified 03/23/24 13:36 UPSET, ill Review of Systems Review of Systems: Review of systems: General: Weakness Patient denies any fever chills recent illness or falls Musculoskeletal: Denies back pain or body aches or other injuries HEENT: denies headache, runny nose, ear pain Respiratory: denies shortness of breath, cough Cardiovascular: no chest pain or palpitations : denies dysuria, frequency Abdomen: no nausea vomiting denies abdominal pain Extremities: no swelling, pain to right hip and knee Skin: no diaphoresis Yes all other systems are reviewed and are negative [facility] Past Medical History Medical History (Updated 03/23/24 @ 17:33 by Suraj Estrella DO) ICD (implantable cardioverter-defibrillator) in place Stage II pressure ulcer of sacral region Diabetes mellitus Abdominal wall abscess Abnormal nuclear stress test Preop cardiovascular exam Paroxysmal atrial fibrillation Heart failure with reduced ejection fraction HTN (hypertension) Acute appendicitis CVA (cerebral vascular accident) Diabetes Surgical History History of left below knee amputation H/O right hemicolectomy H/O exploratory laparotomy Hx of cholecystectomy History of transmetatarsal amputation of right foot Family History Family History Father Stroke Aortic valve replaced Mother No problems noted. Social History Social History Household Members: None Household Members Other:: Mother- takes care of her Housing: House Do you presently have visiting nurse or other home services: No Unable to assess alcohol history related to: Unknown Alcohol intake: former Comment: medicated, see MAR Patient Tobacco Use Status: Former Tobacco user Smoked in Last 30 Days: No Use of substances other than those prescribed or required for medical reasons: No Advance Directives: Yes Advance Directives on File: Yes Advance Directives Date on File: 01/06/21 Do you have a plan to hurt others: No Plan service: No Current occupational status: retired and disabled Physical Exam Vital Signs: Vital Signs: Last Vital Signs Temp 98.3 F 03/23/24 16:02 Pulse 71 03/23/24 16:02 Resp 24 H 03/23/24 16:02 BP 132/56 L 03/23/24 16:02 Pulse Ox 98 03/23/24 16:02 O2 Del Method Room Air 03/23/24 16:02 BMI result Body Mass Index 29.2 Neurological exam: CN II- XII tested. Patient is alert and oriented to person place and time. Patient has no dysphagia or dysarthia, denies good vision in all four vision snowden no nystagmus on exam, good strength to upper and lower extremities with normal reflexes to brachioradialis, wrist, patella and achilles. Negative romberg, good finger to nose and heel to figueroa. General: Well-appearing well-nourished in no signs of distress HEENT: Normocephalic atraumatic Neck: No signs of JVD, no masses no tenderness or lymphadenopathy Cardiovascular: Regular rate and rhythm Respiratory: Clear to auscultation bilaterally Abdomen: Soft nontender no masses Extremities: Normal pedal pulses no signs of edema Skin: Dry warm no rashes Back: No tenderness full ROM Course Reevaluation(s) Reevaluation #1: 1739 patient did mention that he had prolonged hospitalization after appendicitis that ruptured drainage and hemicolectomy with recurrent abscesses and fistulas that had formed patient has had to have it drained back in 21 upset doing pretty well since then again has another fistula versus abscess with a large fluid collection. Dr. Lombardo was the doctor at that time as again the doctor today he was consulted and I felt the patient would benefit from admission to his service I did start the patient on Zosyn I did explain all this to the family and patient and I will get him admitted to Medicine. Medications Administered Discontinued Medications Generic Name Dose Route Start Last Admin Trade Name Freq PRN Reason Stop Dose Admin Sodium Chloride 1,000 mls @ 999 mls/hr 03/23/24 14:30 03/23/24 14:48 Ns IV 03/23/24 15:30 999 mls/hr .Q1H1M KANCHAN Administration Medical Decision Making Medical Decision Making [facility] Narrative: Dehydration electrolyte abnormality hyponatremia or on high in the differential as he has had those before I will start the patient fluids I will check labs kidney EKG and reassess the patient I do think case management Physical therapy need to be involved he lives alone and states he can not go the bathroom. Differential Diagnosis Differential Diagnoses: The differential diagnosis associated with the presentation includes Weakness dehydration electrolyte abnormality less likely stroke the patient has no normal exam electrolyte abnormality more likely his diarrhea has felt lightheaded patient has coronary disease could be related to ACS though he has no chest pain at this time fever pneumonia Lab Data 03/23/24 14:46 03/23/24 14:46 Labs: Lab Results 03/23/24 03/23/24 Range/Units 14:46 16:06 WBC 25.4 H (4.8-10.8) X10*3/uL RBC 3.41 L (4.60-5.80) X10*6/uL Hgb 9.9 L (14.0-18.0) g/dl Hct 29.0 L (42.0-52.0) % MCV 85.0 (80.0-98.0) fL MCH 29.0 (27.0-33.0) pg MCHC 34.1 (31.0-36.0) g/dl RDW 14.9 (11.0-16.0) % Plt Count 248 (160-400) X10*3/uL MPV 8.5 L (9.4-12.4) fL Immature Gran % (Auto) 3.1 H (0.0-0.4) % Neut % (Auto) 84.4 H (45-73) % Lymph % (Auto) 3.0 L (20-40) % [place] % (Auto) 6.6 (2-11) % Eos % (Auto) 2.6 (0-4) % Baso % (Auto) 0.3 (0-2) % Lymph # (Auto) 0.8 L (1.2-4.9) X10*3/uL [place] # (Auto) 1.7 H (0.1-1.2) X10*3/uL Eos # (Auto) 0.7 H (0.0-0.4) X10*3/uL Baso # (Auto) 0.1 (0.0-0.2) X10*3/uL Abs Immat Gran (auto) 0.78 H (0.00-0.03) X10*3/uL Absolute Neuts (auto) 21.4 H (2.0-8.3) x10*3/uL Absolute Nucleated RBC 0.000 (0.0-0.012) X10*3/uL Nucleated RBC % (auto) 0.0 (0.0-0.2) /100WBC Smear Tech's Comments VERIFIED Sodium 133 L (135-145) mmol/L Potassium 4.8 (3.3-5.1) mmol/L Chloride 100 (96-108) mmol/L Carbon Dioxide 19 L (22-29) mmol/L Anion Gap 19 (12-20) BUN 68 H (9-16) mg/dL Creatinine 1.82 H (0.5-1.4) mg/dL Estim Creat Clear Calc 53.2 Estimated GFR 38 Random Glucose 161 H (60-115) mg/dL Osmolality 307 H (281-305) mosm/kg Calcium 9.3 (8.4-10.2) mg/dL Total Bilirubin 0.3 (0.0-1.0) mg/dL Direct Bilirubin 0.2 (0.0-0.5) mg/dL AST 33 (5-37) U/L ALT 77 H (0-40) U/L Alkaline Phosphatase 135 H (39-117) U/L Troponin I High Sens 6.2 (<3.5-35.0) ng/L Total Protein 7.0 (6.5-8.0) g/dL Albumin 3.4 L (3.5-5.0) g/dL Lipase 7 L (8-78) U/L Urine Color Yellow Urine Appearance Clear Urine pH 5.5 (5.0-9.0) Ur Specific [place] 1.010 (1.005-1.025) Urine Protein Negative (Neg-Trace) mg/dL Urine Glucose (UA) Negative (Negative) mg/dL Urine Ketones Negative (Negative) mg/dL Urine Blood Negative (Negative) Urine Nitrite Negative (Negative) Ur Leukocyte Esterase Negative (Negative) Urine Osmolality 285 L (373-1093) mosm/kg Urine Opiates Screen Not Detected (Not Detect) Ur Buprenorphine Scrn Not Detected (Not Detect) ng/mL Ur Oxycodone Screen Not Detected (Not Detect) ng/mL Urine Methadone Screen Not Detected (Not Detect) ng/mL Urine Fentanyl Screen Not Detected (Not Detect) Ur Barbiturates Screen Not Detected (Not Detect) Ur Phencyclidine Scrn Not Detected (Not Detect) Ur Amphetamines Screen Not Detected (Not Detect) U Benzodiazepines Scrn Not Detected (Not Detect) Urine Cocaine Screen Not Detected (Not Detect) U Marijuana (THC) Screen Not Detected (Not Detect) Ethyl Alcohol < 10 mg/dL COVID-19 (CAROLINE) Cancelled COVID-19 Clin Com Cancelled Influenza Type A (PCR) NEGATIVE (Negative) Influenza Type B (PCR) NEGATIVE (Negative) RSV RNA Qual (PCR) NEGATIVE (Negative) SARS-CoV-2 RNA (RT-PCR) NEGATIVE (Negative) Chronic Conditions perforated appendix with abscess requiring IR drainage and then abdominal washout, development of enterocutaneous fistula, recurrent abscess formation, 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 2020 again found to have a large fluid collection followed by you in [address] guided drainage Social Determinants Patient?s care significantly limited by Social Determinants of Health including: Problems related to primary support group Core Measures AMI core measures followed: Yes Critical Care Time Critical Care Time Critical Care Time: Yes Total Critical Care Time: 45 Attestation: Large abdominal fluid collection weakness I will take care of himself at home long reading of the previous records well as consultation with surgery and admission to the medicine service and surgery to his service Discharge Plan Discharge Clinical Impression: Abdominal fluid collection, Abdominal pain, Weakness Prescriptions: No Action nitroglycerin 0.4 mg tablet, sublingual 0.4 mg sublingual Q5M PRN (Reason: chest pain) Qty: 100 0RF Rx Instructions: do not exceed 3 doses per episode rosuvastatin 10 mg tablet 10 mg PO DAILY Qty: 90 3RF carvedilol 6.25 mg Tablet 6.25 mg PO BID Qty: 60 0RF Protocol: Hold for SBP/HR < HOLD for SBP < : 90 HOLD for HR < : 60 amiodarone 200 mg tablet 200 mg PO DAILY omeprazole 20 mg capsule,delayed release(DR/EC) 20 mg PO BID sertraline 25 mg Tablet 25 mg PO DAILY Qty: 30 0RF aspirin 81 mg tablet,delayed release (DR/EC) 81 mg PO DAILY Qty: 14 0RF zolpidem 10 mg tablet 10 mg PO BEDTIME PRN (Reason: Sleep) multivitamin Tablet 1 tab PO DAILY bumetanide 1 mg tablet 2 mg PO BID 90 Days Qty: 360 1RF Print Language: Frisian
--- NOTE | 2024-03-23 14:20 | ECG_ITS ---
Test Reason : WEAKNESS Blood Pressure : / mmHG Vent. Rate : 066 BPM Atrial Rate : 066 BPM P-R Int : 178 ms QRS Dur : 146 ms QT Int : 474 ms P-R-T Axes : 014 -58 062 degrees QTc Int : 496 ms Normal sinus rhythm Left axis deviation Non-specific intra-ventricular conduction block Possible Lateral infarct (cited on or before 19-MAR-2019) Inferior infarct (cited on or before 19-MAR-2019) Abnormal ECG When compared with ECG of 23-JUN-2022 08:14, QRS duration has increased Serial changes of Lateral infarct Present Referred By: Suraj Estrella Electronically Signed By:Brad Jimenez
[2024-03-23] MEDS: 0.9 % Sodium Chloride 1,000 ML 999 ML IV (14:48)
[2024-03-23 14:54] LABS: Basophils Absolute Auto 0.1 X10*3/uL (0.0-0.2); Basophils Percent Auto 0.3 % (0-2); Eosinophils Absolute Auto 0.7 X10*3/uL (0.0-0.4); Eosinophils Percent Auto 2.6 % (0-4); Hemoglobin 9.9 g/dl (14.0-18.0); Imm Gran Abs Auto 0.78 X10*3/uL (0.00-0.03); Imm Gran Pct Auto 3.1 % (0.0-0.4); Lymphocytes Absolute Auto 0.8 X10*3/uL (1.2-4.9); MANUAL DIFF FLAG SCAN; Mean Corpuscular HGB Conc 34.1 g/dl (31.0-36.0); Mean Platelet Volume 8.5 fL (9.4-12.4); Monocytes Absolute Auto 1.7 X10*3/uL (0.1-1.2); Monocytes Percent Auto 6.6 % (2-11); Neutrophils Absolute Auto 21.4 x10*3/uL (2.0-8.3); Neutrophils Percent Auto 84.4 % (45-73); Platelet Count 248 X10*3/uL (160-400); Red Blood Count 3.41 X10*6/uL (4.60-5.80); Red Cell Distribution Width 14.9 % (11.0-16.0); SCAN SMEAR FLAG 1; White Blood Count 25.4 X10*3/uL (4.8-10.8)
[2024-03-23 15:05] LABS: Ethanol < 10 mg/dL; Osmolality, Serum 307 mosm/kg (281-305)
[2024-03-23 15:08] LABS: Alanine Aminotransferase 77 U/L (0-40); Albumin Level 3.4 g/dL (3.5-5.0); Alkaline Phosphatase 135 U/L (39-117); Anion Gap 19 (12-20); Aspartate Amino Transferase 33 U/L (5-37); Bilirubin Direct 0.2 mg/dL (0.0-0.5); Bilirubin Total 0.3 mg/dL (0.0-1.0); Blood Urea Nitrogen 68 mg/dL (9-16); Calcium 9.3 mg/dL (8.4-10.2); Carbon Dioxide 19 mmol/L (22-29); Chloride 100 mmol/L (96-108); Creatinine Clr Calc Pharmacy 53.2; Estimated Glomerular Filt Rate 38; Glucose Random 161 mg/dL (60-115); Lipase 7 U/L (8-78); Potassium 4.8 mmol/L (3.3-5.1); Sodium 133 mmol/L (135-145)
[2024-03-23 15:15] LABS: Troponin-I High Sensitivity 6.2 ng/L (<3.5-35.0)
[2024-03-23 15:53] LABS: SLIDE REVIEW VERIFIED
[2024-03-23 16:03] LABS: Influenza A PCR NEGATIVE (Negative); Influenza B PCR NEGATIVE (Negative); Resp Syncy Virus RNA Qual PCR NEGATIVE (Negative); SARS COV2 PCR INHOUSE NEGATIVE (Negative)
--- NOTE | 2024-03-23 16:03 | MHC.EDTECH ---
Patient refused to be repositioned due to pain in his side
[2024-03-23 16:20] LABS: Appearance Urine Clear; Color Urine Yellow; Glucose Urine UA Negative (Negative); Leukocyte Esterase Urine Negative (Negative); Nitrite Urine Negative (Negative); PH 5.5 (5.0-9.0); Urine Blood Negative (Negative); Urine Ketones Negative (Negative); Urine Protein Negative (Neg-Trace)
[2024-03-23 16:27] LABS: Amphetamine Screen Urine Not Detected (Not Detect); Barbiturates, Urine Not Detected (Not Detect); Benzodiazepines Screen Urine Not Detected (Not Detect); Buprenorphine Scr Not Detected (Not Detect); Cannabinoid Screen Urine Not Detected (Not Detect); Cocaine Screen Urine Not Detected (Not Detect); Fentanyl, urine Not Detected (Not Detect); Methadone Screen, Urine Not Detected (Not Detect); Opiate Screen Urine Not Detected (Not Detect); Oxycodone Screen Urine Not Detected (Not Detect); Phencyclidine Screen Urine Not Detected (Not Detect)
[2024-03-23 16:40] LABS: Osmolality Urine 285 mosm/kg (373-1093)
[2024-03-23] MEDS: Morphine Sulfate 4 MG/ML CARTRIDGE IVPUSH (17:49)
[2024-03-23] MEDS: Piperacillin Sodium/Tazobactam 4.5 GM in 0.9 % Sodium Chloride 100 ML IV (17:51)
--- NOTE | 2024-03-23 17:59 | P.HPGS_ITS ---
History of Present Illness History of Present Illness Date of Service: 03/23/24 Chief complaint: WEAKNESS, VSS, GCS15 Narrative: Denzel Hammond Jr is a 64 year old male presenting with a previous history of perforated appendicitis with intra-abdominal abscess requiring interventional radiology drainage and subsequent right colectomy. Patient had recurrent collections in the retroperitoneum and abdominal wall requiring drainage on several occasions. He returns today with progressive weakness and abdominal pain mainly in the right upper quadrant right flank. He also notes some swelling in this location similar to previous episodes. Workup in the emergency department revealed an elevated WBC of 25. CT abdomen and pelvis once again reveals a large fluid collection involving the retroperitoneum on the right side and extending into the right abdominal wall. He is admitted to the surgical service for management of this probable abscess collection. Review of Systems 2 Constitutional: Constitutional: Denies chills, Denies fever(s), Reports poor appetite, Reports weakness and Reports weight loss Cardiovascular: Cardiovascular: Denies chest pain, Denies dyspnea and Denies dyspnea on exertion Respiratory: Respiratory: Denies cough, Denies dyspnea and Denies dyspnea on exertion Gastrointestinal: Gastrointestinal: Denies hematochezia, Reports diarrhea, Reports nausea and Reports vomiting Genitourinary: Genitourinary: Denies hematuria and Denies difficulty urinating Musculoskeletal: Musculoskeletal: Denies back pain and Denies limited range of motion Integumentary/Breasts: Skin/Breast: Reports wounds Neurologic: Denies focal weakness, Denies convulsions and Reports weakness Psychiatric: Psychiatric: Denies depression and Denies mood swings [facility] Past Medical History Medical History (Updated 03/23/24 @ 18:04 by Navdeep Lombardo MD) ICD (implantable cardioverter-defibrillator) in place Stage II pressure ulcer of sacral region Diabetes mellitus Abdominal wall abscess Abnormal nuclear stress test Preop cardiovascular exam Paroxysmal atrial fibrillation Heart failure with reduced ejection fraction HTN (hypertension) Acute appendicitis CVA (cerebral vascular accident) Diabetes Family History Family History Father Stroke Aortic valve replaced Mother No problems noted. Surgical History Surgical History History of left below knee amputation H/O right hemicolectomy H/O exploratory laparotomy Hx of cholecystectomy History of transmetatarsal amputation of right foot Social History Social History Household Members: None Household Members Other:: Mother- takes care of her Housing: House Do you presently have visiting nurse or other home services: No Unable to assess alcohol history related to: Unknown Alcohol intake: former Comment: medicated, see MAR Patient Tobacco Use Status: Former Tobacco user Smoked in Last 30 Days: No Use of substances other than those prescribed or required for medical reasons: No Advance Directives: Yes Advance Directives on File: Yes Advance Directives Date on File: 01/06/21 Do you have a plan to hurt others: No Plan service: No Current occupational status: retired and disabled Meds Allergies Allergy/AdvReac Type Severity Reaction Status Date / Time vancomycin [VANCOMYCIN] Allergy Severe STOMACH Verified 03/23/24 13:36 UPSET, ill Active Medications: Current Medications Acetaminophen (Acetaminophen 325 Mg Tablet) 650 mg PO QID PRN PRN Reason: headache, temp > 101 Hydromorphone HCl (Hydromorphone Hcl 0.5 Mg/0.5 Ml Syringe) 0.5 mg IVPUSH Q3H PRN; Protocol PRN Reason: Pain, Severe (Pain Scale 7-10) Lactated Ringer's (Lr) 1,000 mls @ 100 mls/hr IVCONT .Q10H [facility] Piperacillin Sod/Tazobactam (Sod 3.375 gm/ Sodium Chloride) 50 mls @ 100 mls/hr IV Q6H [facility] Ondansetron HCl (Ondansetron Hcl 4 Mg/2 Ml Vial) 4 mg IVPUSH QID PRN PRN Reason: Nausea Oxycodone HCl (Oxycodone Hcl Immed Release 5 Mg Tablet) 5 mg PO Q6H PRN PRN Reason: Pain, Moderate(Pain Scale 4-6) Sodium Chloride (0.9 % Sodium Chloride Flush 3 Ml Syringe) 3 ml IVFLUSH QSHIFT [facility] Zolpidem Tartrate (Zolpidem Tartrate 5 Mg Tablet) 5 mg PO BEDTIME PRN PRN Reason: Insomnia Home Medications ?Medication ?Instructions ?Recorded ?Confirmed ?Last Taken ?Type amiodarone 200 mg tablet 200 mg PO DAILY 05/07/21 05/10/23 05/25/22 History multivitamin 1 tab PO DAILY 05/05/10/23 05/25/22 History zolpidem 10 mg tablet 10 mg PO BEDTIME PRN Sleep 04/07/22 05/10/23 05/25/22 History omeprazole 20 mg capsule,delayed 20 mg PO BID 12/23/22 05/10/23 Unknown History release Physical Exam 2 Vital Signs: Vital Signs: Last Vital Signs Temp 98.3 F 03/23/24 16:02 Pulse 71 03/23/24 16:02 Resp 24 H 03/23/24 16:02 BP 132/56 L 03/23/24 16:02 Pulse Ox 98 03/23/24 16:02 O2 Del Method Room Air 03/23/24 16:02 BMI result Body Mass Index 29.2 Const: General: no acute distress Nutritional Appearance: well nourished Orientation/consciousness: patient oriented x3 Limitations: other limitations HEENT: Head: Yes normocephalic and Yes atraumatic Resp: Effort & Inspection: normal respiratory effort GI: Inspection: Yes normal to inspection and Yes Abdominal panniculus present Palpation (GI): Soft to palpation, Tenderness to palpation present (GI) (Right flank), no guarding and not rigid Percussion: Yes normal to percussion Auscultation: normal bowel sounds Abdomen image: 1. Site of swelling and pain Skin: General skin exam: no rashes or lesions noted Neuro: General: patient oriented x3 Extrem: Other: Left BKA, right transmetatarsal amputation Results Results Labs: Short CBC 03/23/24 Range/Units 14:46 WBC 25.4 H (4.8-10.8) X10*3/uL Hgb 9.9 L (14.0-18.0) g/dl Hct 29.0 L (42.0-52.0) % Plt Count 248 (160-400) X10*3/uL BMP 03/23/24 14:46 Sodium 133 L Potassium 4.8 Chloride 100 Carbon Dioxide 19 L BUN 68 H Creatinine 1.82 H Calcium 9.3 Liver Function 03/23/24 Range/Units 14:46 Total Bilirubin 0.3 (0.0-1.0) mg/dL Direct Bilirubin 0.2 (0.0-0.5) mg/dL AST 33 (5-37) U/L ALT 77 H (0-40) U/L Alkaline Phosphatase 135 H (39-117) U/L Albumin 3.4 L (3.5-5.0) g/dL Urine 03/23/24 Range/Units 16:06 Urine Color Yellow Urine Appearance Clear Urine pH 5.5 (5.0-9.0) Ur Specific [place] 1.010 (1.005-1.025) Urine Protein Negative (Neg-Trace) mg/dL Urine Glucose (UA) Negative (Negative) mg/dL Abdomen CT scan report/results: image reviewed CT scan - pelvis: image reviewed Assessment and Plan (1) Abdominal fluid collection: Status: Acute (2) Weakness: Status: Acute (3) Abdominal pain: Qualifiers: Abdominal location: right lower quadrant Qualified Code(s): R10.31 - Right lower quadrant pain Status: Acute Plan 64-year-old male patient well known to service with previous perforated appendicitis now with a recurrent abdominal wall abscess. Abscess extends into the retroperitoneum similar to previous collections. CT abdomen and pelvis reviewed with patient. Recommend IR drainage and admission for IV antibiotics. Patient expressed understanding and agrees with the plan. Consult hospitalist for assistance with medications/diabetic management Quality Stroke Does the patient have a stroke diagnosis?: No VTE Prior VTE?: No VTE Risk Level:: Surgical - moderate VTE Device Contraindication: Treatment Not Indicated VTE Drug Contraindication: Treatment Not Indicated Procedures Date of Service Date of Service: 03/23/24
--- NOTE | 2024-03-23 17:59 | PC.NURSE ---
Patient with allergy to vanco. pharmacy aware stating order auto verify, provider notified
[2024-03-23] MEDS: Lactated Ringers 1,000 ML 100 ML IVCONT (18:17)
--- NOTE | 2024-03-23 19:05 | PHA.MEDREC ---
Pharmacy Consult ? Medication Reconciliation Pharmacy has completed the medication reconciliation. Spoke to patient and confirmed medication list.
[2024-03-23] MEDS: Omeprazole 20 MG CAPSULE.DR PO (20:55)
[2024-03-23] MEDS: carvediloL 6.25 MG TABLET PO (20:55)
[2024-03-23] MEDS: Bumetanide 1 MG TABLET 2 MG PO (20:55)
[2024-03-23] MEDS: Metoprolol Tartrate 25 MG TABLET PO (20:57)
[2024-03-23] MEDS: HYDROmorphone HCl 0.5 MG/0.5 ML SYRINGE IVPUSH (21:59)
--- NOTE | 2024-03-23 23:26 | P.CONHOSP_ITS ---
History of Present Illness Data of Consult Service Date: 03/23/24 Primary Care Provider: Connor Mcdaniel MD HPI Reason for consult: Medical management Pt is a 64-year-old male with a complex PMH significant for CAD with ischemic cardiomyopathy with chronic total occlusion of RCA and LAD with nonviable myocardium, HFrEF 25-30% with ICD in place, paroxysmal AFib no longer on anticoagulation due to multiple GI bleeds, type 2 diabetes no longer on insulin but with neuropathy, CKD 3, hx of perforated appendicitis with intra-abdominal abscess and enterocutaneous fistula requiring IR drainage and subsequent right colectomy, recurrent collections in the retroperitoneum and abdominal wall requiring drainage, hx of chronic diabetic foot ulcers with right transmetatarsal amputation and left BKA, lip carcinoma, and depression who initially presented to the ED for evaluation of sudden onset weakness noticed when he lacked the strength to raise himself off the toilet this afternoon. CT of abd/pelvis again showed large fluid collection involving the retroperitoneum on the right side extending to the righ abdominal wall. Pt was admitted to general surgery services for abscess collection management with IV antibiotics and likely IR-guided drainage in the morning. Hospitalist consult for medical management. Pt continues to complain of generalized weakness and right-sided abdominal pain, though N/V currently under control. Complains of left foot phantom pain. Denies chest pain/pressure, palpitations. No SOB. Denies fever, chills. Pt notes he is no longer on insulin after a prolonged 4-month hospital stay where he had significant weight loss. Review of Systems 2 Review of Systems: Negative except for that which is stated in the HPI. [facility] Medical History ICD (implantable cardioverter-defibrillator) in place Stage II pressure ulcer of sacral region Diabetes mellitus Abdominal wall abscess Abnormal nuclear stress test Preop cardiovascular exam Paroxysmal atrial fibrillation Heart failure with reduced ejection fraction HTN (hypertension) Acute appendicitis CVA (cerebral vascular accident) Diabetes Family History Father Stroke Aortic valve replaced Mother No problems noted. Surgical History History of left below knee amputation H/O right hemicolectomy H/O exploratory laparotomy Hx of cholecystectomy History of transmetatarsal amputation of right foot Social History Household Members: None Household Members Other:: Mother- takes care of her Housing: House Do you presently have visiting nurse or other home services: No Unable to assess alcohol history related to: Unknown Alcohol intake: former Comment: medicated, see MAR Patient Tobacco Use Status: Former Tobacco user Years Smoked: 2003 Advance Directives Date on File: 01/06/21 service: No Current occupational status: retired and disabled Meds Allergies Allergy/AdvReac Type Severity Reaction Status Date / Time vancomycin [VANCOMYCIN] Allergy Severe STOMACH Verified 03/23/24 13:36 UPSET, ill Active Medications: Current Medications Acetaminophen (Acetaminophen 325 Mg Tablet) 650 mg PO QID PRN PRN Reason: headache, temp > 101 Amiodarone HCl (Amiodarone Hcl 200 Mg Tablet) 200 mg PO DAILY [facility] Atorvastatin Calcium (Atorvastatin Calcium 40 Mg Tablet) 40 mg PO DAILY [facility] Bumetanide (Bumetanide 1 Mg Tablet) 2 mg PO BID [facility]; Protocol Last Admin: 03/23/24 20:55 Dose: 2 mg Carvedilol (Carvedilol 6.25 Mg Tablet) 6.25 mg PO BID [facility]; Protocol Last Admin: 03/23/24 20:55 Dose: 6.25 mg Hydromorphone HCl (Hydromorphone Hcl 0.5 Mg/0.5 Ml Syringe) 0.5 mg IVPUSH Q3H PRN; Protocol PRN Reason: Pain, Severe (Pain Scale 7-10) Last Admin: 03/23/24 21:59 Dose: 0.5 mg Lactated Ringer's (Lr) 1,000 mls @ 100 mls/hr IVCONT .Q10H [facility] Last Admin: 03/23/24 18:17 Dose: 100 mls/hr Piperacillin Sod/Tazobactam (Sod 3.375 gm/ Sodium Chloride) 50 mls @ 100 mls/hr IV Q6H [facility] Metoprolol Tartrate (Metoprolol Tartrate 25 Mg Tablet) 25 mg PO BID [facility]; Protocol Last Admin: 03/23/24 20:57 Dose: 25 mg Nitroglycerin (Nitroglycerin 0.4 Mg Tab.Subl) 0.4 mg SUBLINGUAL Q5M PRN PRN Reason: chest pain Omeprazole (Omeprazole 20 Mg Capsule.) 20 mg PO BID@0630,1630 [facility] Last Admin: 03/23/24 20:55 Dose: 20 mg Ondansetron HCl (Ondansetron Hcl 4 Mg/2 Ml Vial) 4 mg IVPUSH QID PRN PRN Reason: Nausea Oxycodone HCl (Oxycodone Hcl Immed Release 5 Mg Tablet) 5 mg PO Q6H PRN PRN Reason: Pain, Moderate(Pain Scale 4-6) Sodium Chloride (0.9 % Sodium Chloride Flush 3 Ml Syringe) 3 ml IVFLUSH QSHIFT [facility] Spironolactone (Spironolactone 25 Mg Tablet) 25 mg PO DAILY [facility]; Protocol Zolpidem Tartrate (Zolpidem Tartrate 5 Mg Tablet) 5 mg PO BEDTIME PRN PRN Reason: Insomnia Home Medications ?Medication ?Instructions ?Recorded ?Confirmed ?Last Taken ?Type amiodarone 200 mg tablet 200 mg PO DAILY 05/07/21 03/23/24 03/23/24 History multivitamin 1 tab PO DAILY 04/07/22 03/23/24 03/23/24 History omeprazole 20 mg capsule,delayed 20 mg PO BID 12/23/22 03/23/24 03/23/24 History release metoprolol tartrate 25 mg tablet 25 mg PO BID 03/23/24 03/23/24 03/23/24 History spironolactone 25 mg tablet 25 mg PO DAILY 03/23/24 03/23/24 03/23/24 History Physical Exam 2 Vital Signs and Narrative: Vital Signs: Last Vital Signs Temp 98.3 F 03/23/24 20:49 Pulse 70 03/23/24 22:00 Resp 18 03/23/24 22:00 BP 125/60 03/23/24 22:00 Pulse Ox 99 03/23/24 22:00 O2 Del Method Room Air 03/23/24 22:00 BMI result Body Mass Index 29.2 General: AOx3, no acute distress Resp: CTA bilaterally CVS: S1, S2, RRR GI: +BS, no distention, with right-sided abdominal pain Skin: Warm, dry Neuro: Cranial nerves II-XII grossly intact bilaterally. Motor grossly intact bilaterally Extremities: No edema Psych: Appropriate affect Results Labs 03/23/24 14:46 03/23/24 14:46 Labs: Laboratory Results - last 24 hr 03/23/24 03/23/24 14:46 16:06 MCV 85.0 MCH 29.0 MCHC 34.1 RDW 14.9 Plt Count 248 MPV 8.5 L Immature Gran % (Auto) 3.1 H Neut % (Auto) 84.4 H Lymph % (Auto) 3.0 L [place] % (Auto) 6.6 Eos % (Auto) 2.6 Baso % (Auto) 0.3 Lymph # (Auto) 0.8 L [place] # (Auto) 1.7 H Eos # (Auto) 0.7 H Baso # (Auto) 0.1 Abs Immat Gran (auto) 0.78 H Absolute Neuts (auto) 21.4 H Absolute Nucleated RBC 0.000 Nucleated RBC % (auto) 0.0 Smear Tech's Comments VERIFIED Anion Gap 19 Estim Creat Clear Calc 53.2 Estimated GFR 38 Random Glucose 161 H Osmolality 307 H Calcium 9.3 Total Bilirubin 0.3 Direct Bilirubin 0.2 AST 33 ALT 77 H Alkaline Phosphatase 135 H Troponin I High Sens 6.2 Total Protein 7.0 Albumin 3.4 L Lipase 7 L Urine Color Yellow Urine Appearance Clear Urine pH 5.5 Ur Specific [place] 1.010 Urine Protein Negative Urine Glucose (UA) Negative Urine Ketones Negative Urine Blood Negative Urine Nitrite Negative Ur Leukocyte Esterase Negative Urine Osmolality 285 L Urine Opiates Screen Not Detected Ur Buprenorphine Scrn Not Detected Ur Oxycodone Screen Not Detected Urine Methadone Screen Not Detected Urine Fentanyl Screen Not Detected Ur Barbiturates Screen Not Detected Ur Phencyclidine Scrn Not Detected Ur Amphetamines Screen Not Detected U Benzodiazepines Scrn Not Detected Urine Cocaine Screen Not Detected U Marijuana (THC) Screen Not Detected Ethyl Alcohol < 10 COVID-19 (CAROLINE) Cancelled COVID-19 Clin Com Cancelled Influenza Type A (PCR) NEGATIVE Influenza Type B (PCR) NEGATIVE RSV RNA Qual (PCR) NEGATIVE SARS-CoV-2 RNA (RT-PCR) NEGATIVE Imaging Radiologist's Impressions: Impressions Chest X-Ray 03/23/24 15:40 IMPRESSION: 1. No acute abnormality. 2. Interval increase in compression fractures in the thoracic spine consistent with osteoporosis. Abdomen/Pelvis CT 03/23/24 15:52 IMPRESSION: Evaluation is limited by the lack of intravenous contrast. Layering hyperdense fluid in the right pleural space. Small left pleural effusion. Dedicated chest CT is recommended. New complex loculated collection in the right posterior pararenal space extending to the right flank and right posterior paraspinal region measures 20.5 x 17.4 x 20.7 cm. There is involvement of the right psoas and iliopsoas muscles. No internal foci of gas. No bone destruction. Infection cannot be excluded. Consider MRI for further characterization. Possible avascular necrosis of the femoral heads. There are ill-defined lucent lesions within bilateral femurs and the pelvic bones. Consider correlation with nuclear medicine bone scan. Splenomegaly. Assessment and Plan (1) Abdominal fluid collection: Status: Acute Plan Pt is a 64-year-old male with a complex PMH significant for CAD with ischemic cardiomyopathy with chronic total occlusion of RCA and LAD with nonviable myocardium, HFrEF 25-30% with ICD in place, paroxysmal AFib no longer on anticoagulation due to multiple GI bleeds, type 2 diabetes no longer on insulin but with neuropathy, CKD 3, hx of perforated appendicitis with intra-abdominal abscess and enterocutaneous fistula requiring IR drainage and subsequent right colectomy, recurrent collections in the retroperitoneum and abdominal wall requiring drainage, hx of chronic diabetic foot ulcers with right transmetatarsal amputation and left BKA, lip carcinoma, and depression who initially presented to the ED for evaluation of sudden onset weakness noticed when he lacked the strength to raise himself off the toilet this afternoon. CT of abd/pelvis again showed large fluid collection involving the retroperitoneum on the right side extending to the righ abdominal wall. Pt was admitted to general surgery services for abscess collection management with IV antibiotics and likely IR-guided drainage in the morning. Hospitalist consult for medical management. Retroperitoneal abscess Plan as per General Surgery CAD Continue statin, nitrolglycerin prn Hold aspirin pending IR-guided drainage, resume as indicated HFrEF Not in acute exacerbation Continue bumetanide, spironolactone Paroxysmal AFib Continue Amiodarone, carvedilol, metoprolol Not on anti coagulation due to recurrent GI bleeds GERD Continue PPI Non-insulin dependent type [address] sliding scale insulin Diabetic diet Thank you for allowing us to participate in the care of this patient. Will continue following with you.
[2024-03-24] VITALS (12 sets, daily range): BP systolic 120–163; BP diastolic 56–92; PULSE 68–73; RESP 16–20; TEMP 35.9–36.5; O2SAT 97–100; BMI 28.0
[2024-03-24] MEDS: HYDROmorphone HCl 0.5 MG/0.5 ML SYRINGE IVPUSH ×5 (01:07→20:26)
[2024-03-24] MEDS: Piperacillin Sodium/Tazobactam 3.375 GM in 0.9 % Sodium Chloride 50 ML IV ×4 (01:07→18:09)
[2024-03-24] MEDS: Zolpidem Tartrate 5 MG TABLET PO (02:02)
[2024-03-24] MEDS: ondansetron HCL 4 MG/2 ML VIAL IVPUSH ×2 (02:02→10:39)
[2024-03-24] MEDS: Lactated Ringers 1,000 ML 100 ML IVCONT ×2 (04:38→15:23)
[2024-03-24 07:23] LABS: Alanine Aminotransferase 66 U/L (0-40); Albumin Level 3.1 g/dL (3.5-5.0); Alkaline Phosphatase 132 U/L (39-117); Anion Gap 19 (12-20); Aspartate Amino Transferase 34 U/L (5-37); Bilirubin Total 0.3 mg/dL (0.0-1.0); Blood Urea Nitrogen 66 mg/dL (9-16); Calcium 8.9 mg/dL (8.4-10.2); Carbon Dioxide 18 mmol/L (22-29); Chloride 102 mmol/L (96-108); Creatinine Clr Calc Pharmacy 51.1; Estimated Glomerular Filt Rate 37; Glucose Random 168 mg/dL (60-115); Sodium 135 mmol/L (135-145); Total Protein 6.5 g/dL (6.5-8.0)
[2024-03-24 07:25] LABS: Glucose, Whole Blood 186 mg/dL (60-115)
--- NOTE | 2024-03-24 07:31 | PM.PNGS ---
Subjective Subjective Date of Service: 03/24/24 Interval history: Patient reports nausea this morning, pain better. Physical Exam Vital Signs: Vital Signs: Last Vital Signs Temp 96.8 F 03/24/24 07:07 Pulse 68 03/24/24 07:07 Resp 16 03/24/24 07:07 BP 121/56 L 03/24/24 07:07 Pulse Ox 100 03/24/24 07:07 O2 Del Method Room Air 03/24/24 07:07 BMI result Body Mass Index 28.0 Const: General: no acute distress Resp: Effort & Inspection: normal respiratory effort GI: Inspection: Yes normal to inspection and Yes Abdominal panniculus present Palpation (GI): Soft to palpation, Tenderness to palpation present (GI) (Right flank), no guarding and not rigid Percussion: Yes normal to percussion Auscultation: normal bowel sounds Skin: General skin exam: no rashes or lesions noted Extrem: Other: Left BKA, right transmetatarsal amputation Objective Data Active Medications Acetaminophen (Acetaminophen 325 Mg Tablet) 650 mg PO QID PRN PRN Reason: headache, temp > 101 Amiodarone HCl (Amiodarone Hcl 200 Mg Tablet) 200 mg PO DAILY [facility] Atorvastatin Calcium (Atorvastatin Calcium 40 Mg Tablet) 40 mg PO DAILY [facility] Bumetanide (Bumetanide 1 Mg Tablet) 2 mg PO BID [facility]; Protocol Last Admin: 03/23/24 20:55 Dose: 2 mg Documented By: YADY Carvedilol (Carvedilol 6.25 Mg Tablet) 6.25 mg PO BID [facility]; Protocol Last Admin: 03/23/24 20:55 Dose: 6.25 mg Documented By: YADY Glucose (Glucose Gel 15 Gm Gel..Gram.) 15 gm PO Q15M PRN; Protocol PRN Reason: per Hypoglycemia Standing Ord. Hydromorphone HCl (Hydromorphone Hcl 0.5 Mg/0.5 Ml Syringe) 0.5 mg IVPUSH Q3H PRN; Protocol PRN Reason: Pain, Severe (Pain Scale 7-10) Last Admin: 03/24/24 06:17 Dose: 0.5 mg Documented By: NAYLA Lactated Ringer's (Lr) 1,000 mls @ 100 mls/hr IVCONT .Q10H [facility]CHAN Last Admin: 03/24/24 04:38 Dose: 100 mls/hr Documented By: NAYLA Piperacillin Sod/Tazobactam (Sod 3.375 gm/ Sodium Chloride) 50 mls @ 100 mls/hr IV Q6H [facility] Last Infusion: 03/24/24 06:50 Dose: Infused Documented By: NAYLA Dextrose (D10) 250 mls @ 750 mls/hr IV Q15M PRN; Protocol PRN Reason: per Hypoglycemia Standing Ord. Insulin Human Lispro (Insulin Lispro 100 Unit/Ml 3 Ml Vial) 0 unit SUBCUT QIDACHS [facility]; Protocol Metoprolol Tartrate (Metoprolol Tartrate 25 Mg Tablet) 25 mg PO BID [facility]; Protocol Last Admin: 03/23/24 20:57 Dose: 25 mg Documented By: YADY Nitroglycerin (Nitroglycerin 0.4 Mg Tab.Subl) 0.4 mg SUBLINGUAL Q5M PRN PRN Reason: chest pain Omeprazole (Omeprazole 20 Mg Capsule.Dr) 20 mg PO BID@0630,1630 [facility] Last Admin: 03/24/24 06:22 Dose: Not Given Documented By: NAYLA Non-Admin Reason: Patient Refused Ondansetron HCl (Ondansetron Hcl 4 Mg/2 Ml Vial) 4 mg IVPUSH QID PRN PRN Reason: Nausea Last Admin: 03/24/24 02:02 Dose: 4 mg Documented By: NAYLA Oxycodone HCl (Oxycodone Hcl Immed Release 5 Mg Tablet) 5 mg PO Q6H PRN PRN Reason: Pain, Moderate(Pain Scale 4-6) Sodium Chloride (0.9 % Sodium Chloride Flush 3 Ml Syringe) 3 ml IVFLUSH QSHIFT [facility] Last Admin: 03/24/24 01:08 Dose: Not Given Documented By: YADY Non-Admin Reason: IV Running Spironolactone (Spironolactone 25 Mg Tablet) 25 mg PO DAILY [facility]; Protocol Zolpidem Tartrate (Zolpidem Tartrate 5 Mg Tablet) 5 mg PO BEDTIME PRN PRN Reason: Insomnia Last Admin: 03/24/24 02:02 Dose: 5 mg Documented By: NAYLA Labs 03/23/24 14:46 03/24/24 05:47 Labs: Laboratory Results - last 24 hr 03/23/24 03/23/24 03/24/24 14:46 16:06 05:47 MCV 85.0 MCH 29.0 MCHC 34.1 RDW 14.9 Plt Count 248 MPV 8.5 L Immature Gran % (Auto) 3.1 H Neut % (Auto) 84.4 H Lymph % (Auto) 3.0 L [place] % (Auto) 6.6 Eos % (Auto) 2.6 Baso % (Auto) 0.3 Lymph # (Auto) 0.8 L [place] # (Auto) 1.7 H Eos # (Auto) 0.7 H Baso # (Auto) 0.1 Abs Immat Gran (auto) 0.78 H Absolute Neuts (auto) 21.4 H Absolute Nucleated RBC 0.000 Nucleated RBC % (auto) 0.0 Smear Tech's Comments VERIFIED Anion Gap 19 19 Estim Creat Clear Calc 53.2 51.1 Estimated GFR 38 37 POC Glucose Random Glucose 161 H 168 H Osmolality 307 H Calcium 9.3 8.9 Total Bilirubin 0.3 0.3 Direct Bilirubin 0.2 AST 33 34 ALT 77 H 66 H Alkaline Phosphatase 135 H 132 H Troponin I High Sens 6.2 Total Protein 7.0 6.5 Albumin 3.4 L 3.1 L Lipase 7 L Urine Color Yellow Urine Appearance Clear Urine pH 5.5 Ur Specific [place] 1.010 Urine Protein Negative Urine Glucose (UA) Negative Urine Ketones Negative Urine Blood Negative Urine Nitrite Negative Ur Leukocyte Esterase Negative Urine Osmolality 285 L Urine Opiates Screen Not Detected Ur Buprenorphine Scrn Not Detected Ur Oxycodone Screen Not Detected Urine Methadone Screen Not Detected Urine Fentanyl Screen Not Detected Ur Barbiturates Screen Not Detected Ur Phencyclidine Scrn Not Detected Ur Amphetamines Screen Not Detected U Benzodiazepines Scrn Not Detected Urine Cocaine Screen Not Detected U Marijuana (THC) Screen Not Detected Ethyl Alcohol < 10 COVID-19 (CAROLINE) Cancelled COVID-19 Clin Com Cancelled Influenza Type A (PCR) NEGATIVE Influenza Type B (PCR) NEGATIVE RSV RNA Qual (PCR) NEGATIVE SARS-CoV-2 RNA (RT-PCR) NEGATIVE 03/24/24 07:11 MCV MCH MCHC RDW Plt Count MPV Immature Gran % (Auto) Neut % (Auto) Lymph % (Auto) [place] % (Auto) Eos % (Auto) Baso % (Auto) Lymph # (Auto) [place] # (Auto) Eos # (Auto) Baso # (Auto) Abs Immat Gran (auto) Absolute Neuts (auto) Absolute Nucleated RBC Nucleated RBC % (auto) Smear Tech's Comments Anion Gap Estim Creat Clear Calc Estimated GFR POC Glucose 186 H Random Glucose Osmolality Calcium Total Bilirubin Direct Bilirubin AST ALT Alkaline Phosphatase Troponin I High Sens Total Protein Albumin Lipase Urine Color Urine Appearance Urine pH Ur Specific [place] Urine Protein Urine Glucose (UA) Urine Ketones Urine Blood Urine Nitrite Ur Leukocyte Esterase Urine Osmolality Urine Opiates Screen Ur Buprenorphine Scrn Ur Oxycodone Screen Urine Methadone Screen Urine Fentanyl Screen Ur Barbiturates Screen Ur Phencyclidine Scrn Ur Amphetamines Screen U Benzodiazepines Scrn Urine Cocaine Screen U Marijuana (THC) Screen Ethyl Alcohol COVID-19 (CAROLINE) COVID-19 Clin Com Influenza Type A (PCR) Influenza Type B (PCR) RSV RNA Qual (PCR) SARS-CoV-2 RNA (RT-PCR) Procedures Date of Service Date of Service: 03/24/24 Progress Note: A&P Assessment and plan (1) Abdominal fluid collection: Status: Acute Plan 64-year-old male patient with a previous history of perforated appendicitis with abdominal wall abscess now with recurrent abscess involving the retroperitoneum and abdominal wall. He continues to have pain in the right flank and right abdomen. CT confirms a large fluid collection which will require IR drainage. We will keep NPO pending IR drainage. Patient understands and agrees with the plan. Time Spent With Patient Time: Total time managing care of this patient today ____ minutes. Quality Stroke Does the patient have a stroke diagnosis?: No VTE Prior VTE?: No VTE Risk Level:: Surgical - moderate VTE Device Contraindication: Treatment Not Indicated VTE Drug Contraindication: Treatment Not Indicated
[2024-03-24] MEDS: Spironolactone 25 MG TABLET PO (08:55)
[2024-03-24] MEDS: Atorvastatin Calcium 40 MG TABLET PO (08:55)
[2024-03-24] MEDS: Metoprolol Tartrate 25 MG TABLET PO ×2 (08:55→20:20)
[2024-03-24] MEDS: Amiodarone HCL 200 MG TABLET PO (08:56)
[2024-03-24] MEDS: carvediloL 6.25 MG TABLET PO ×2 (08:56→20:19)
--- NOTE | 2024-03-24 09:16 | MHC.CM.PN ---
Addendum entered by Zhanna Foote RN 03/24/24 12:55: PT rec home w/ services. [facility] has accepted. Addendum entered by Zhanna Foote RN 03/24/24 09:22: Strong family support - brother and sister live nearby. Original Note: [facility] delivered. Patient lives at home alone. Independent w/ ADL's. LBKA w/ prosthesis. Uses walker, W/C PRN - self transfer. PCP Connor Mcdaniel HCP on file and verified. DP: PT eval pending. Goal is home w/ services. Has used [facility] in the past and prefers to use them again. Brother to transport. CM will continue to follow.
[2024-03-24] MEDS: Bumetanide 1 MG TABLET 2 MG PO ×2 (10:14→20:19)
[2024-03-24 11:17] LABS: Glucose, Whole Blood 185 mg/dL (60-115)
--- NOTE | 2024-03-24 12:49 | MHC.SHP ---
Pre-Procedural Eval Section A - 24 Hr Update-Section A only Date of Service: 03/24/24 The patient is an INPATIENT: Yes Changes since office visit: Yes Patient answered all questions The patient has been examined within 24 hours of the surgical procedure. The History & Physical has been completed within 30 days and I have reviewed it.: Yes Section B - Complete if H&P > 30 days Chief Complaint: Right flank abscess Allergies: Allergies Allergy/AdvReac Type Severity Reaction Status Date / Time vancomycin [VANCOMYCIN] Allergy Severe STOMACH Verified 03/23/24 13:36 UPSET, ill Plan I have reviewed the history and physical and performed a pertinent physical examination on my patient. No changes have occurred unless specified. Time Spent With Patient Time: Total time managing care of this patient today ____ minutes.
--- NOTE | 2024-03-24 14:00 | HO.WOUND ---
Wound Consult: Initial - Attempted 64yr old?Male admitted to [facility] on 03/23/24 - See progress notes and H&P for detailed history.? Wound consult placed for Coccyx redness POA.? Arrival to bedside pt was off unit - direct care team advised to ensure sacral foam dressing in place to aid in off loading pressure and protect from friction. Will attempt assessment at future date and or time. Recommendations: 1. Turn and Reposition every 2 hours and as needed for patient comfort.? Use pillows or wedges to support off loading positions. 2. Off Load all bony prominences with use of pillows and heel boots if needed.? Apply Preventative foams where needed. ? 3. Monitor for incontinence and moisture control, use barrier creams when needed for prevention and treatment. 4. Provide adequate and supplemental nutrition.? 5. Order or Continue low air loss mattress. 6. When applicable maintain blood glucose levels per Providers order. 7. Coccyx - Apply Sacral Foam dressing peel back and assess Q shift, change every 3 days. Re-consult wound care Nurse for wound deterioration or wound changes.
--- NOTE | 2024-03-24 14:13 | P.PNIM_ITS ---
Subjective Subjective Date of Service: 03/24/24 Interval History: Seen and examined this morning Follow-up for medical consultation Still with some abdominal/flank pain Nausea improved. No fever, chills Review of Systems Review of Systems: Yes all other systems are reviewed and are negative Constitutional Constitutional: Denies chills and Denies fever(s) Physical Exam 2 Vital Signs: Vital Signs: Last Vital Signs Temp 96.8 F 03/24/24 07:07 Pulse 68 03/24/24 08:56 Resp 18 03/24/24 10:39 BP 121/56 L 03/24/24 11:11 Pulse Ox 100 03/24/24 07:07 O2 Del Method Room Air 03/24/24 07:07 BMI result Body Mass Index 28.0 Const: Other: Constitutional-cooperative/comfortable/awake, alert-alert and oriented x3 Cardiovascular-regular rate and rhythm pulmonary-respirations even and unlabored, no respiratory distress GI right side pain near old scar, tender on palpation, abdomen is soft, nondistended Musculoskeletal-status post left BKA, right TMA Neuro-grossly nonfocal Objective Data Active Medications Acetaminophen (Acetaminophen 325 Mg Tablet) 650 mg PO QID PRN PRN Reason: headache, temp > 101 Amiodarone HCl (Amiodarone Hcl 200 Mg Tablet) 200 mg PO DAILY [facility] Last Admin: 03/24/24 08:56 Dose: 200 mg Documented By: AUDI Atorvastatin Calcium (Atorvastatin Calcium 40 Mg Tablet) 40 mg PO DAILY [facility] Last Admin: 03/24/24 08:55 Dose: 40 mg Documented By: AUDI Bumetanide (Bumetanide 1 Mg Tablet) 2 mg PO BID [facility]; Protocol Last Admin: 03/24/24 10:14 Dose: 2 mg Documented By: AUDI Carvedilol (Carvedilol 6.25 Mg Tablet) 6.25 mg PO BID [facility]; Protocol Last Admin: 03/24/24 08:56 Dose: 6.25 mg Documented By: AUDI Glucose (Glucose Gel 15 Gm Gel..Gram.) 15 gm PO Q15M PRN; Protocol PRN Reason: per Hypoglycemia Standing Ord. Hydromorphone HCl (Hydromorphone Hcl 0.5 Mg/0.5 Ml Syringe) 0.5 mg IVPUSH Q3H PRN; Protocol PRN Reason: Pain, Severe (Pain Scale 7-10) Last Admin: 03/24/24 10:39 Dose: 0.5 mg Documented By: AUDI Lactated Ringer's (Lr) 1,000 mls @ 100 mls/hr IVCONT .Q10H [facility] Last Admin: 03/24/24 04:38 Dose: 100 mls/hr Documented By: NAYLA Piperacillin Sod/Tazobactam (Sod 3.375 gm/ Sodium Chloride) 50 mls @ 100 mls/hr IV Q6H [facility] Last Infusion: 03/24/24 11:51 Dose: Infused Documented By: AUDI Dextrose (D10) 250 mls @ 750 mls/hr IV Q15M PRN; Protocol PRN Reason: per Hypoglycemia Standing Ord. Insulin Human Lispro (Insulin Lispro 100 Unit/Ml 3 Ml Vial) 0 unit SUBCUT QIDACHS [facility]; Protocol Last Admin: 03/24/24 11:44 Dose: Not Given Documented By: AUDI Non-Admin Reason: NPO Metoprolol Tartrate (Metoprolol Tartrate 25 Mg Tablet) 25 mg PO BID [facility]; Protocol Last Admin: 03/24/24 08:55 Dose: 25 mg Documented By: AUDI Nitroglycerin (Nitroglycerin 0.4 Mg Tab.Subl) 0.4 mg SUBLINGUAL Q5M PRN PRN Reason: chest pain Omeprazole (Omeprazole 20 Mg Capsule.Dr) 20 mg PO BID@0630,1630 [facility] Last Admin: 03/24/24 06:22 Dose: Not Given Documented By: NAYLA Non-Admin Reason: Patient Refused Ondansetron HCl (Ondansetron Hcl 4 Mg/2 Ml Vial) 4 mg IVPUSH QID PRN PRN Reason: Nausea Last Admin: 03/24/24 10:39 Dose: 4 mg Documented By: AUDI Oxycodone HCl (Oxycodone Hcl Immed Release 5 Mg Tablet) 5 mg PO Q6H PRN PRN Reason: Pain, Moderate(Pain Scale 4-6) Sodium Chloride (0.9 % Sodium Chloride Flush 3 Ml Syringe) 3 ml IVFLUSH QSHIFT [facility] Last Admin: 03/24/24 08:40 Dose: Not Given Documented By: AUDI Non-Admin Reason: IV Running Spironolactone (Spironolactone 25 Mg Tablet) 25 mg PO DAILY [facility]; Protocol Last Admin: 03/24/24 08:55 Dose: 25 mg Documented By: AUDI Zolpidem Tartrate (Zolpidem Tartrate 5 Mg Tablet) 5 mg PO BEDTIME PRN PRN Reason: Insomnia Last Admin: 03/24/24 02:02 Dose: 5 mg Documented By: NAYLA Labs 03/23/24 14:46 03/24/24 05:47 Labs: Laboratory Results - last 24 hr 03/23/24 03/23/24 03/24/24 14:46 16:06 05:47 MCV 85.0 MCH 29.0 MCHC 34.1 RDW 14.9 Plt Count 248 MPV 8.5 L Immature Gran % (Auto) 3.1 H Neut % (Auto) 84.4 H Lymph % (Auto) 3.0 L [place] % (Auto) 6.6 Eos % (Auto) 2.6 Baso % (Auto) 0.3 Lymph # (Auto) 0.8 L [place] # (Auto) 1.7 H Eos # (Auto) 0.7 H Baso # (Auto) 0.1 Abs Immat Gran (auto) 0.78 H Absolute Neuts (auto) 21.4 H Absolute Nucleated RBC 0.000 Nucleated RBC % (auto) 0.0 Smear Tech's Comments VERIFIED Anion Gap 19 19 Estim Creat Clear Calc 53.2 51.1 Estimated GFR 38 37 POC Glucose Random Glucose 161 H 168 H Osmolality 307 H Calcium 9.3 8.9 Total Bilirubin 0.3 0.3 Direct Bilirubin 0.2 AST 33 34 ALT 77 H 66 H Alkaline Phosphatase 135 H 132 H Troponin I High Sens 6.2 Total Protein 7.0 6.5 Albumin 3.4 L 3.1 L Lipase 7 L Urine Color Yellow Urine Appearance Clear Urine pH 5.5 Ur Specific [place] 1.010 Urine Protein Negative Urine Glucose (UA) Negative Urine Ketones Negative Urine Blood Negative Urine Nitrite Negative Ur Leukocyte Esterase Negative Urine Osmolality 285 L Urine Opiates Screen Not Detected Ur Buprenorphine Scrn Not Detected Ur Oxycodone Screen Not Detected Urine Methadone Screen Not Detected Urine Fentanyl Screen Not Detected Ur Barbiturates Screen Not Detected Ur Phencyclidine Scrn Not Detected Ur Amphetamines Screen Not Detected U Benzodiazepines Scrn Not Detected Urine Cocaine Screen Not Detected U Marijuana (THC) Screen Not Detected Ethyl Alcohol < 10 COVID-19 (CAROLINE) Cancelled COVID-19 Clin Com Cancelled Influenza Type A (PCR) NEGATIVE Influenza Type B (PCR) NEGATIVE RSV RNA Qual (PCR) NEGATIVE SARS-CoV-2 RNA (RT-PCR) NEGATIVE 03/24/24 03/24/24 07:11 11:10 MCV MCH MCHC RDW Plt Count MPV Immature Gran % (Auto) Neut % (Auto) Lymph % (Auto) [place] % (Auto) Eos % (Auto) Baso % (Auto) Lymph # (Auto) [place] # (Auto) Eos # (Auto) Baso # (Auto) Abs Immat Gran (auto) Absolute Neuts (auto) Absolute Nucleated RBC Nucleated RBC % (auto) Smear Tech's Comments Anion Gap Estim Creat Clear Calc Estimated GFR POC Glucose 186 H 185 H Random Glucose Osmolality Calcium Total Bilirubin Direct Bilirubin AST ALT Alkaline Phosphatase Troponin I High Sens Total Protein Albumin Lipase Urine Color Urine Appearance Urine pH Ur Specific [place] Urine Protein Urine Glucose (UA) Urine Ketones Urine Blood Urine Nitrite Ur Leukocyte Esterase Urine Osmolality Urine Opiates Screen Ur Buprenorphine Scrn Ur Oxycodone Screen Urine Methadone Screen Urine Fentanyl Screen Ur Barbiturates Screen Ur Phencyclidine Scrn Ur Amphetamines Screen U Benzodiazepines Scrn Urine Cocaine Screen U Marijuana (THC) Screen Ethyl Alcohol COVID-19 (CAROLINE) COVID-19 Clin Com Influenza Type A (PCR) Influenza Type B (PCR) RSV RNA Qual (PCR) SARS-CoV-2 RNA (RT-PCR) Assessment and Plan (1) Abdominal fluid collection: Status: Acute Plan Pt is a 64-year-old male with a complex PMH significant for CAD with ischemic cardiomyopathy with chronic total occlusion of RCA and LAD with nonviable myocardium, HFrEF 25-30% with ICD in place, paroxysmal AFib no longer on anticoagulation due to multiple GI bleeds, type 2 diabetes no longer on insulin but with neuropathy, CKD 3, hx of perforated appendicitis with intra-abdominal abscess and enterocutaneous fistula requiring IR drainage and subsequent right colectomy, recurrent collections in the retroperitoneum and abdominal wall requiring drainage, hx of chronic diabetic foot ulcers with right transmetatarsal amputation and left BKA, lip carcinoma, and depression who initially presented to the ED for evaluation of sudden onset weakness noticed when he lacked the strength to raise himself off the toilet this afternoon. CT of abd/pelvis again showed large fluid collection involving the retroperitoneum on the right side extending to the righ abdominal wall. Pt was admitted to general surgery services for abscess collection management with IV antibiotics and likely IR-guided drainage in the morning. Hospitalist consult for medical management. Retroperitoneal abscess CT scan with loculated collection in the right posterior pararenal space extending to the right flank and right posterior paraspinal region With involvement of the right psoas and iliopsoas muscles no sepsis Plan for IR guided drainage trend white count Continue Zosyn CAD Continue statin, nitrolglycerin prn Hold aspirin pending IR-guided drainage, resume as indicated HFrEF Not in acute exacerbation Continue bumetanide, spironolactone Paroxysmal AFib Continue Amiodarone, carvedilol, metoprolol Not on anti coagulation due to recurrent GI bleeds GERD Continue PPI Non-insulin dependent type 2 diabetes diet controlled Continue SSI, follow POCs. CKD4 creatinine at baseline Hyponatremia Resolved Chronic Normocytic anemia Likely anemia of chronic disease. H/H above transfusion threshold ill defined lucent lesions of bilateral femurs and pelvic bones Consider outpatient nuclear medicine bone scan Thank you for allowing us to participate in the care of this patient. Will continue following with you. Quality Stroke Does the patient have a stroke diagnosis?: No VTE Prior VTE?: No VTE Risk Level:: Surgical - moderate VTE Device Contraindication: Treatment Not Indicated VTE Drug Contraindication: Treatment Not Indicated
--- NOTE | 2024-03-24 14:14 | PM.EVENT ---
Event Note Date of Service: 03/24/24 Event Note: Procedure Note: CT drainage of right retroperitoneal abscess CT drainage of right abdominal wall/flank abscess Indications: Recurrent Abdominal Wall/RP abscess 1) 12 fr drain placed into right retroperitoneal abscess. 300 cc thick purulent fluid aspirated and sent for culture 2) 10 fr drain placed into the superificial right flank/abdominal wall abscess. Purulent fluid aspirated No immediate complications Bryson ZHONG Interventional Radiology Time Spent With Patient Time: Total time managing care of this patient today ____ minutes.
[2024-03-24] MEDS: 0.9 % Sodium Chloride Flush 3 ML SYRINGE IVFLUSH (15:23)
[2024-03-24 16:14] LABS: Glucose, Whole Blood 129 mg/dL (60-115)
[2024-03-24] MEDS: Omeprazole 20 MG CAPSULE.DR PO (16:23)
[2024-03-24 20:04] LABS: Glucose, Whole Blood 90 mg/dL (60-115)
[2024-03-25] MEDS: Piperacillin Sodium/Tazobactam 3.375 GM in 0.9 % Sodium Chloride 50 ML IV ×5 (00:15→23:26)
[2024-03-25] MEDS: HYDROmorphone HCl 0.5 MG/0.5 ML SYRINGE IVPUSH ×6 (00:23→23:25)
[2024-03-25] MEDS: Lactated Ringers 1,000 ML 100 ML IVCONT ×2 (00:26→09:31)
[2024-03-25 03:19] VITALS: BP 117/59; PULSE 75; RESP 18; TEMP 36; O2SAT 96
[2024-03-25] MEDS: Omeprazole 20 MG CAPSULE.DR PO ×2 (05:26→17:20)
[2024-03-25 07:26] LABS: Glucose, Whole Blood 127 mg/dL (60-115)
[2024-03-25 08:00] VITALS: BP 127/60; PULSE 73; RESP 18; TEMP 35.9; O2SAT 97
[2024-03-25 09:05] VITALS: BP 127/60; PULSE 73
[2024-03-25] MEDS: Bumetanide 1 MG TABLET 2 MG PO ×2 (09:05→20:35)
[2024-03-25] MEDS: Spironolactone 25 MG TABLET PO (09:05)
[2024-03-25] MEDS: Atorvastatin Calcium 40 MG TABLET PO (09:05)
[2024-03-25] MEDS: carvediloL 6.25 MG TABLET PO ×2 (09:05→20:35)
[2024-03-25] MEDS: Amiodarone HCL 200 MG TABLET PO (09:05)
[2024-03-25] MEDS: Metoprolol Tartrate 25 MG TABLET PO ×2 (09:05→20:35)
[2024-03-25] MEDS: ondansetron HCL 4 MG/2 ML VIAL IVPUSH (09:31)
--- NOTE | 2024-03-25 10:52 | HO.PM.IMPN ---
Subjective Subjective Date of Service: 03/25/24 Interval History: Seen and examined this morning Follow-up for medical consultation Still with some abdominal/flank pain Still with nausea, but no active vomiting. drains in place. No fever, chills Review of Systems Review of Systems: Yes all other systems are reviewed and are negative Constitutional Constitutional: Denies chills and Denies fever(s) Physical Exam Vital Signs: Vital Signs: Last Vital Signs Temp 96.6 F L 03/25/24 08:00 Pulse 73 03/25/24 09:05 Resp 18 03/25/24 08:00 BP 127/60 03/25/24 09:05 Pulse Ox 97 03/25/24 08:00 O2 Del Method Room Air 03/25/24 08:00 BMI result Body Mass Index 28.0 Constitutional - Awake and Alert, No apparent distress Eyes - PERRLA, EOMI Cardiovascular - S1S2, RRR, No edema Respiratory - Normal lung expansion, Normal respiratory effort, No respiratory distress, CTA bilaterally Gastrointestinal -ttp ruq with drains in place ruq and flank. ND; +BS; No rebound or guarding Extremities - no calf tenderness bilaterally, no swelling Skin - Warm/Dry Neurological - Alert & oriented x3 Psychological - Appropriate affect Objective Data Active Medications Acetaminophen (Acetaminophen 325 Mg Tablet) 650 mg PO QID PRN PRN Reason: headache, temp > 101 Amiodarone HCl (Amiodarone Hcl 200 Mg Tablet) 200 mg PO DAILY [facility] Last Admin: 03/25/24 09:05 Dose: 200 mg Documented By: ELICIA Atorvastatin Calcium (Atorvastatin Calcium 40 Mg Tablet) 40 mg PO DAILY [facility] Last Admin: 03/25/24 09:05 Dose: 40 mg Documented By: ELICIA Bumetanide (Bumetanide 1 Mg Tablet) 2 mg PO BID [facility]; Protocol Last Admin: 03/25/24 09:05 Dose: 2 mg Documented By: ELICIA Carvedilol (Carvedilol 6.25 Mg Tablet) 6.25 mg PO BID [facility]; Protocol Last Admin: 03/25/24 09:05 Dose: 6.25 mg Documented By: ELICIA Glucose (Glucose Gel 15 Gm Gel..Gram.) 15 gm PO Q15M PRN; Protocol PRN Reason: per Hypoglycemia Standing Ord. Hydromorphone HCl (Hydromorphone Hcl 0.5 Mg/0.5 Ml Syringe) 0.5 mg IVPUSH Q3H PRN; Protocol PRN Reason: Pain, Severe (Pain Scale 7-10) Last Admin: 03/25/24 06:00 Dose: 0.5 mg Documented By: ZENON Lactated Ringer's (Lr) 1,000 mls @ 100 mls/hr IVCONT .Q10H [facility] Last Admin: 03/25/24 09:31 Dose: 100 mls/hr Documented By: ELICIA Piperacillin Sod/Tazobactam (Sod 3.375 gm/ Sodium Chloride) 50 mls @ 100 mls/hr IV Q6H [facility] Last Infusion: 03/25/24 05:59 Dose: Infused Documented By: ZENON Dextrose (D10) 250 mls @ 750 mls/hr IV Q15M PRN; Protocol PRN Reason: per Hypoglycemia Standing Ord. Insulin Human Lispro (Insulin Lispro 100 Unit/Ml 3 Ml Vial) 0 unit SUBCUT QIDACHS [facility]; Protocol Last Admin: 03/25/24 07:36 Dose: Not Given Documented By: [place] Non-Admin Reason: No Insulin Coverage Metoprolol Tartrate (Metoprolol Tartrate 25 Mg Tablet) 25 mg PO BID [facility]; Protocol Last Admin: 03/25/24 09:05 Dose: 25 mg Documented By: ELICIA Nitroglycerin (Nitroglycerin 0.4 Mg Tab.Subl) 0.4 mg SUBLINGUAL Q5M PRN PRN Reason: chest pain Omeprazole (Omeprazole 20 Mg Capsule.) 20 mg PO BID@0630,1630 [facility] Last Admin: 03/25/24 05:26 Dose: 20 mg Documented By: ZENON Ondansetron HCl (Ondansetron Hcl 4 Mg/2 Ml Vial) 4 mg IVPUSH QID PRN PRN Reason: Nausea Last Admin: 03/25/24 09:31 Dose: 4 mg Documented By: ELICIA Oxycodone HCl (Oxycodone Hcl Immed Release 5 Mg Tablet) 5 mg PO Q6H PRN PRN Reason: Pain, Moderate(Pain Scale 4-6) Promethazine HCl (Promethazine Hcl 25 Mg/Ml Vial) 12.5 mg IM Q6H PRN PRN Reason: Nausea and Vomiting Sodium Chloride (0.9 % Sodium Chloride Flush 3 Ml Syringe) 3 ml IVFLUSH QSHIFT [facility] Last Admin: 03/25/24 07:45 Dose: Not Given Documented By: ELICIA Non-Admin Reason: IV Running Spironolactone (Spironolactone 25 Mg Tablet) 25 mg PO DAILY [facility]; Protocol Last Admin: 03/25/24 09:05 Dose: 25 mg Documented By: ELICIA Zolpidem Tartrate (Zolpidem Tartrate 5 Mg Tablet) 5 mg PO BEDTIME PRN PRN Reason: Insomnia Last Admin: 03/24/24 02:02 Dose: 5 mg Documented By: STEFANYQC Labs 03/23/24 14:46 03/24/24 05:47 Labs: Laboratory Results - last 24 hr 03/24/24 03/24/24 03/24/24 11:10 16:09 19:49 POC Glucose 185 H 129 H 90 03/25/24 07:09 POC Glucose 127 H Microbiology Microbiology Results: Microbiology 03/24/24 13:35 Gram Stain - Final Abscess Intra-abdominal Routine Culture - Preliminary No growth to date. Anaerobic Culture - Preliminary Culture in progress. Assessment and Plan (1) Abdominal fluid collection: Status: Acute Plan Pt is a 64-year-old male with a complex PMH significant for CAD with ischemic cardiomyopathy with chronic total occlusion of RCA and LAD with nonviable myocardium, HFrEF 25-30% with ICD in place, paroxysmal AFib no longer on anticoagulation due to multiple GI bleeds, type 2 diabetes no longer on insulin but with neuropathy, CKD 3, hx of perforated appendicitis with intra-abdominal abscess and enterocutaneous fistula requiring IR drainage and subsequent right colectomy, recurrent collections in the retroperitoneum and abdominal wall requiring drainage, hx of chronic diabetic foot ulcers with right transmetatarsal amputation and left BKA, lip carcinoma, and depression who initially presented to the ED for evaluation of sudden onset weakness noticed when he lacked the strength to raise himself off the toilet this afternoon. CT of abd/pelvis again showed large fluid collection involving the retroperitoneum on the right side extending to the righ abdominal wall. Pt was admitted to general surgery services for abscess collection management with IV antibiotics and likely IR-guided drainage in the morning. Hospitalist consult for medical management. Retroperitoneal abscess CT scan with loculated collection in the right posterior pararenal space extending to the right flank and right posterior paraspinal region With involvement of the right psoas and iliopsoas muscles no sepsis Plan for IR guided drainage trend white count Continue Zosyn CAD Continue statin, nitrolglycerin prn Hold aspirin pending IR-guided drainage, resume as indicated HFrEF Not in acute exacerbation Continue bumetanide, spironolactone Paroxysmal AFib Continue Amiodarone, carvedilol, metoprolol Not on anti coagulation due to recurrent GI bleeds GERD Continue PPI Non-insulin dependent type 2 diabetes diet controlled Continue SSI, follow POCs. CKD4 creatinine at baseline Hyponatremia Resolved Chronic Normocytic anemia Likely anemia of chronic disease. H/H above transfusion threshold ill defined lucent lesions of bilateral femurs and pelvic bones Consider outpatient nuclear medicine bone scan Thank you for allowing us to participate in the care of this patient. Signing off at this time. please do not hesitate to reach out with questions, concerns, or acute medical issues. Quality Stroke Does the patient have a stroke diagnosis?: No VTE Prior VTE?: No VTE Risk Level:: Surgical - moderate VTE Device Contraindication: Treatment Not Indicated VTE Drug Contraindication: Treatment Not Indicated
[2024-03-25 11:08] LABS: Glucose, Whole Blood 244 mg/dL (60-115)
--- NOTE | 2024-03-25 11:35 | PM.PNGS ---
Subjective Subjective Date of Service: 03/25/24 Interval history: pt feeling ok - drains in place and draining bloody purulent fluid Physical Exam Vital Signs: Vital Signs: Last Vital Signs Temp 96.6 F L 03/25/24 08:00 Pulse 73 03/25/24 09:05 Resp 18 03/25/24 08:00 BP 127/60 03/25/24 09:05 Pulse Ox 97 03/25/24 08:00 O2 Del Method Room Air 03/25/24 08:00 BMI result Body Mass Index 28.0 Const: General: cooperative, healthy appearing, comfortable and no acute distress GI: Other: abdomen is soft but tneder right lower quadrant area and flank - no erythema Objective Data Active Medications Acetaminophen (Acetaminophen 325 Mg Tablet) 650 mg PO QID PRN PRN Reason: headache, temp > 101 Amiodarone HCl (Amiodarone Hcl 200 Mg Tablet) 200 mg PO DAILY [facility] Last Admin: 03/25/24 09:05 Dose: 200 mg Documented By: ELICIA Atorvastatin Calcium (Atorvastatin Calcium 40 Mg Tablet) 40 mg PO DAILY [facility] Last Admin: 03/25/24 09:05 Dose: 40 mg Documented By: ELICIA Bumetanide (Bumetanide 1 Mg Tablet) 2 mg PO BID [facility]; Protocol Last Admin: 03/25/24 09:05 Dose: 2 mg Documented By: ELICIA Carvedilol (Carvedilol 6.25 Mg Tablet) 6.25 mg PO BID [facility]; Protocol Last Admin: 03/25/24 09:05 Dose: 6.25 mg Documented By: ELICIA Glucose (Glucose Gel 15 Gm Gel..Gram.) 15 gm PO Q15M PRN; Protocol PRN Reason: per Hypoglycemia Standing Ord. Hydromorphone HCl (Hydromorphone Hcl 0.5 Mg/0.5 Ml Syringe) 0.5 mg IVPUSH Q3H PRN; Protocol PRN Reason: Pain, Severe (Pain Scale 7-10) Last Admin: 03/25/24 10:55 Dose: 0.5 mg Documented By: [place] Lactated Ringer's (Lr) 1,000 mls @ 100 mls/hr IVCONT .Q10H [facility] Last Admin: 03/25/24 09:31 Dose: 100 mls/hr Documented By: ELICIA Piperacillin Sod/Tazobactam (Sod 3.375 gm/ Sodium Chloride) 50 mls @ 100 mls/hr IV Q6H [facility] Last Infusion: 03/25/24 05:59 Dose: Infused Documented By: ZENON Dextrose (D10) 250 mls @ 750 mls/hr IV Q15M PRN; Protocol PRN Reason: per Hypoglycemia Standing Ord. Insulin Human Lispro (Insulin Lispro 100 Unit/Ml 3 Ml Vial) 0 unit SUBCUT QIDACHS [facility]; Protocol Last Admin: 03/25/24 07:36 Dose: Not Given Documented By: [place] Non-Admin Reason: No Insulin Coverage Metoprolol Tartrate (Metoprolol Tartrate 25 Mg Tablet) 25 mg PO BID [facility]; Protocol Last Admin: 03/25/24 09:05 Dose: 25 mg Documented By: ELICIA Nitroglycerin (Nitroglycerin 0.4 Mg Tab.Subl) 0.4 mg SUBLINGUAL Q5M PRN PRN Reason: chest pain Omeprazole (Omeprazole 20 Mg Capsule.Dr) 20 mg PO BID@0630,1630 [facility] Last Admin: 03/25/24 05:26 Dose: 20 mg Documented By: ZENON Ondansetron HCl (Ondansetron Hcl 4 Mg/2 Ml Vial) 4 mg IVPUSH QID PRN PRN Reason: Nausea Last Admin: 03/25/24 09:31 Dose: 4 mg Documented By: ELICIA Oxycodone HCl (Oxycodone Hcl Immed Release 5 Mg Tablet) 5 mg PO Q6H PRN PRN Reason: Pain, Moderate(Pain Scale 4-6) Promethazine HCl (Promethazine Hcl 25 Mg/Ml Vial) 12.5 mg IM Q6H PRN PRN Reason: Nausea and Vomiting Sodium Chloride (0.9 % Sodium Chloride Flush 3 Ml Syringe) 3 ml IVFLUSH QSHIFT [facility] Last Admin: 03/25/24 07:45 Dose: Not Given Documented By: ELICIA Non-Admin Reason: IV Running Spironolactone (Spironolactone 25 Mg Tablet) 25 mg PO DAILY [facility]; Protocol Last Admin: 03/25/24 09:05 Dose: 25 mg Documented By: ELICIA Zolpidem Tartrate (Zolpidem Tartrate 5 Mg Tablet) 5 mg PO BEDTIME PRN PRN Reason: Insomnia Last Admin: 03/24/24 02:02 Dose: 5 mg Documented By: NAYLA Labs 03/23/24 14:46 03/24/24 05:47 Labs: Laboratory Results - last 24 hr 03/24/24 03/24/24 03/25/24 16:09 19:49 07:09 POC Glucose 129 H 90 127 H 03/25/24 10:54 POC Glucose 244 H Microbiology Microbiology Results: Microbiology 03/24/24 13:35 Gram Stain - Final Abscess Intra-abdominal Routine Culture - Preliminary No growth to date. Anaerobic Culture - Preliminary Culture in progress. Procedures Date of Service Date of Service: 03/25/24 Progress Note: A&P Assessment and plan (1) Abdominal fluid collection: Status: Acute Plan pt with retroperitoneal abscess successfully drained by IR - drains putting output. cont with drains, iv antibiotics medical team helping with management Time Spent With Patient Time: Total time managing care of this patient today ____ minutes. Quality Stroke Does the patient have a stroke diagnosis?: No VTE Prior VTE?: No VTE Risk Level:: Surgical - moderate VTE Device Contraindication: Treatment Not Indicated VTE Drug Contraindication: Treatment Not Indicated
[2024-03-25] MEDS: Insulin Lispro 100 UNIT/ML 3 ML VIAL SUBCUT ×3 (11:51→20:35)
[2024-03-25 16:00] VITALS: BP 112/55; PULSE 70; RESP 12; TEMP 36.3; O2SAT 95
[2024-03-25 16:24] LABS: Glucose, Whole Blood 179 mg/dL (60-115)
[2024-03-25 19:55] LABS: Glucose, Whole Blood 156 mg/dL (60-115)
[2024-03-25 20:00] VITALS: BP 123/82; PULSE 73; RESP 18; TEMP 36.3; O2SAT 93
[2024-03-25] MEDS: 0.9 % Sodium Chloride Flush 3 ML SYRINGE IVFLUSH (20:35)
[2024-03-25] MEDS: Zolpidem Tartrate 5 MG TABLET PO (20:48)
[2024-03-26 03:57] VITALS: BP 114/64; PULSE 76; RESP 20; TEMP 36.2; O2SAT 94
[2024-03-26] MEDS: HYDROmorphone HCl 0.5 MG/0.5 ML SYRINGE IVPUSH ×2 (04:34→08:48)
[2024-03-26] MEDS: Piperacillin Sodium/Tazobactam 3.375 GM in 0.9 % Sodium Chloride 50 ML IV ×3 (05:30→17:30)
[2024-03-26] MEDS: Omeprazole 20 MG CAPSULE.DR PO (05:30)
[2024-03-26 07:18] VITALS: BP 138/64; PULSE 71; RESP 18; TEMP 36.1; O2SAT 96
[2024-03-26 07:39] LABS: Glucose, Whole Blood 163 mg/dL (60-115)
[2024-03-26] MEDS: Amiodarone HCL 200 MG TABLET PO (08:33)
[2024-03-26 08:34] VITALS: BP 138/64; PULSE 71
[2024-03-26] MEDS: Atorvastatin Calcium 40 MG TABLET PO (08:34)
[2024-03-26] MEDS: Metoprolol Tartrate 25 MG TABLET PO ×2 (08:34→20:17)
[2024-03-26] MEDS: Spironolactone 25 MG TABLET PO (08:34)
[2024-03-26] MEDS: carvediloL 6.25 MG TABLET PO ×2 (08:34→20:18)
[2024-03-26] MEDS: Bumetanide 1 MG TABLET 2 MG PO ×2 (08:34→20:18)
[2024-03-26] MEDS: 0.9 % Sodium Chloride Flush 3 ML SYRINGE IVFLUSH ×2 (08:40→20:18)
[2024-03-26 11:43] LABS: Glucose, Whole Blood 170 mg/dL (60-115)
[2024-03-26] MEDS: Insulin Lispro 100 UNIT/ML 3 ML VIAL SUBCUT (12:55)
[2024-03-26] MEDS: ondansetron HCL 4 MG/2 ML VIAL IVPUSH ×2 (12:55→20:17)
--- NOTE | 2024-03-26 13:21 | PM.PNGS ---
Subjective Subjective Date of Service: 03/26/24 Interval history: Patient complaining of intense pain and pressure in the right flank area not improving with pain medication and there has a bubble in the skin consistent with most likely an underlying abscess subcutaneously. Physical Exam Vital Signs: Vital Signs: Last Vital Signs Temp 96.9 F 03/26/24 07:18 Pulse 71 03/26/24 08:34 Resp 18 03/26/24 07:18 BP 138/64 03/26/24 08:34 Pulse Ox 96 03/26/24 07:18 O2 Del Method Room Air 03/26/24 07:18 BMI result Body Mass Index 28.0 GI: Other: Abdomen is soft but tender in the right flank area with some firmness. Just superior to the drains there is a purplish pinkish color then tissue consistent with most likely an underlying abscess in this area is sore. Plan to do incision and drainage for this area Objective Data Active Medications Acetaminophen (Acetaminophen 325 Mg Tablet) 650 mg PO QID PRN PRN Reason: headache, temp > 101 Amiodarone HCl (Amiodarone Hcl 200 Mg Tablet) 200 mg PO DAILY [facility] Last Admin: 03/26/24 08:33 Dose: 200 mg Documented By: ELICIA Atorvastatin Calcium (Atorvastatin Calcium 40 Mg Tablet) 40 mg PO DAILY [facility] Last Admin: 03/26/24 08:34 Dose: 40 mg Documented By: ELICIA Bumetanide (Bumetanide 1 Mg Tablet) 2 mg PO BID [facility]; Protocol Last Admin: 03/26/24 08:34 Dose: 2 mg Documented By: ELICIA Carvedilol (Carvedilol 6.25 Mg Tablet) 6.25 mg PO BID [facility]; Protocol Last Admin: 03/26/24 08:34 Dose: 6.25 mg Documented By: ELICIA Glucose (Glucose Gel 15 Gm Gel..Gram.) 15 gm PO Q15M PRN; Protocol PRN Reason: per Hypoglycemia Standing Ord. Hydromorphone HCl (Hydromorphone Hcl 0.5 Mg/0.5 Ml Syringe) 1 mg IVPUSH Q4H PRN; Protocol PRN Reason: Pain, Severe (Pain Scale 7-10) Piperacillin Sod/Tazobactam (Sod 3.375 gm/ Sodium Chloride) 50 mls @ 100 mls/hr IV Q6H [facility] Last Infusion: 03/26/24 12:56 Dose: Infused Documented By: ELICIA Dextrose (D10) 250 mls @ 750 mls/hr IV Q15M PRN; Protocol PRN Reason: per Hypoglycemia Standing Ord. Insulin Human Lispro (Insulin Lispro 100 Unit/Ml 3 Ml Vial) 0 unit SUBCUT QIDACHS [facility]; Protocol Last Admin: 03/26/24 12:55 Dose: 2 unit Documented By: ELICIA Metoprolol Tartrate (Metoprolol Tartrate 25 Mg Tablet) 25 mg PO BID [facility]; Protocol Last Admin: 03/26/24 08:34 Dose: 25 mg Documented By: ELICIA Nitroglycerin (Nitroglycerin 0.4 Mg Tab.Subl) 0.4 mg SUBLINGUAL Q5M PRN PRN Reason: chest pain Omeprazole (Omeprazole 20 Mg Capsule.Dr) 20 mg PO BID@0630,1630 [facility] Last Admin: 03/26/24 05:30 Dose: 20 mg Documented By: ZENON Ondansetron HCl (Ondansetron Hcl 4 Mg/2 Ml Vial) 4 mg IVPUSH QID PRN PRN Reason: Nausea Last Admin: 03/26/24 12:55 Dose: 4 mg Documented By: ELICIA Oxycodone HCl (Oxycodone Hcl Immed Release 5 Mg Tablet) 5 mg PO Q6H PRN PRN Reason: Pain, Moderate(Pain Scale 4-6) Oxycodone HCl (Oxycodone Hcl Immed Release 5 Mg Tablet) 10 mg PO Q4H PRN PRN Reason: Pain, Severe (Pain Scale 7-10) Promethazine HCl (Promethazine Hcl 25 Mg/Ml Vial) 12.5 mg IM Q6H PRN PRN Reason: Nausea and Vomiting Sodium Chloride (0.9 % Sodium Chloride Flush 3 Ml Syringe) 3 ml IVFLUSH QSHIFT [facility] Last Admin: 03/26/24 08:40 Dose: 3 ml Documented By: ELICIA Spironolactone (Spironolactone 25 Mg Tablet) 25 mg PO DAILY [facility]; Protocol Last Admin: 03/26/24 08:34 Dose: 25 mg Documented By: ELICIA Zolpidem Tartrate (Zolpidem Tartrate 5 Mg Tablet) 5 mg PO BEDTIME PRN PRN Reason: Insomnia Last Admin: 03/25/24 20:48 Dose: 5 mg Documented By: ZENON Labs 03/23/24 14:46 03/24/24 05:47 Labs: Laboratory Results - last 24 hr 03/25/24 03/25/24 03/26/24 16:16 19:51 07:18 POC Glucose 179 H 156 H 163 H 03/26/24 11:38 POC Glucose 170 H Microbiology Microbiology Results: Microbiology 03/24/24 13:35 Gram Stain - Final Abscess Intra-abdominal Routine Culture - Preliminary No growth to date. Anaerobic Culture - Preliminary Culture in progress. Procedures Date of Service Date of Service: 03/26/24 Abscess I/D Consent for Procedure: Elective - informed consent obtained Site: abdomen Side (if applicable): right Anesthetic used: with epi Technique: incised with #11 blade Amount of fluid (mL): 400 Irrigation: Yes Packing used?: iodoform Progress Note: A&P Assessment and plan (1) Abdominal fluid collection: Status: Acute Assessment and Plan: 64-year-old male with retroperitoneal right flank abscess that was drained and improving. However 1 drain isn't putting out very much and now there appears to be pointing of the abscess under his skin and as a result incision and drainage was carried out. In doing this about 400 cc of bloody purulent fluid was removed and the area probed and irrigated with about 150 cc till it was cleaned. Packing gauze placed. Plan to continue with dressings to this area daily continue with the interventionally placed drains although I think 1 of the drains which had been draining well percutaneously is now in communication with this open area and as a result is not holding suction. We will decide tomorrow whether 1 or 2 those drains get removed. The other drain has not been putting out as much but still able to hold onto suctioned Continue with IV antibiotics etc. patient understands and agrees with the above plan Time Spent With Patient Time: Total time managing care of this patient today ____ minutes. Quality Stroke Does the patient have a stroke diagnosis?: No VTE Prior VTE?: No VTE Risk Level:: Surgical - moderate VTE Device Contraindication: Treatment Not Indicated VTE Drug Contraindication: Treatment Not Indicated
[2024-03-26] MEDS: HYDROmorphone HCl 0.5 MG/0.5 ML SYRINGE 1 MG IVPUSH (14:50)
[2024-03-26] MEDS: Lidocaine HCl 1% PF/Epi 1:200,000 30 ML VIAL SUBCUT (14:53)
[2024-03-26 15:26] VITALS: BP 122/58; PULSE 66; RESP 14; TEMP 36.1; O2SAT 96
[2024-03-26] MEDS: Dextrose 5 % and 0.45 % NaCl 1,000 ML 100 ML IVCONT (15:28)
--- NOTE | 2024-03-26 16:14 | PC.NURSE ---
s/p bedside I&D SHY drain B no longer suctioning. Dr Martinez at bedside and aware.
[2024-03-26 16:18] LABS: Glucose, Whole Blood 158 mg/dL (60-115)
[2024-03-26 19:13] VITALS: BP 151/70; PULSE 78; RESP 18; TEMP 36.5; O2SAT 98
[2024-03-26 21:28] LABS: Glucose, Whole Blood 189 mg/dL (60-115)
[2024-03-26] MEDS: HYDROmorphone HCl 1 MG/ML SYRINGE IVPUSH (21:32)
[2024-03-27] VITALS (8 sets, daily range): BP systolic 139–156; BP diastolic 65–69; PULSE 68–82; RESP 16–20; TEMP 36–36.1; O2SAT 97–98
[2024-03-27] MEDS: Dextrose 5 % and 0.45 % NaCl 1,000 ML 100 ML IVCONT ×3 (00:36→21:30)
[2024-03-27] MEDS: Piperacillin Sodium/Tazobactam 3.375 GM in 0.9 % Sodium Chloride 50 ML IV ×3 (00:36→11:13)
[2024-03-27] MEDS: Omeprazole 20 MG CAPSULE.DR PO (05:25)
[2024-03-27] MEDS: HYDROmorphone HCl 1 MG/ML SYRINGE IVPUSH ×3 (05:25→16:37)
[2024-03-27 05:42] LABS: MANUAL DIFF FLAG NO
[2024-03-27 05:56] LABS: Basophils Absolute Auto 0.1 X10*3/uL (0.0-0.2); Basophils Percent Auto 0.5 % (0-2); Eosinophils Absolute Auto 0.4 X10*3/uL (0.0-0.4); Eosinophils Percent Auto 3.5 % (0-4); Hematocrit 26.3 % (42.0-52.0); Hemoglobin 8.5 g/dl (14.0-18.0); Imm Gran Abs Auto 0.47 X10*3/uL (0.00-0.03); Lymphocytes Absolute Auto 0.6 X10*3/uL (1.2-4.9); Lymphocytes Percent Auto 5.1 % (20-40); Mean Corpuscular HGB Conc 32.3 g/dl (31.0-36.0); Mean Corpuscular Volume 86.5 fL (80.0-98.0); Mean Platelet Volume 8.7 fL (9.4-12.4); Monocytes Absolute Auto 0.9 X10*3/uL (0.1-1.2); Monocytes Percent Auto 7.5 % (2-11); Neutrophils Absolute Auto 9.2 x10*3/uL (2.0-8.3); Neutrophils Percent Auto 79.4 % (45-73); Platelet Count 264 X10*3/uL (160-400); Red Blood Count 3.04 X10*6/uL (4.60-5.80); Red Cell Distribution Width 14.6 % (11.0-16.0); White Blood Count 11.6 X10*3/uL (4.8-10.8)
[2024-03-27 06:07] LABS: Anion Gap 15 (12-20); Blood Urea Nitrogen 41 mg/dL (9-16); Calcium 8.8 mg/dL (8.4-10.2); Carbon Dioxide 23 mmol/L (22-29); Chloride 104 mmol/L (96-108); Creatinine Clr Calc Pharmacy 56.9; Estimated Glomerular Filt Rate 41; Glucose Random 248 mg/dL (60-115); Potassium 3.5 mmol/L (3.3-5.1); Sodium 138 mmol/L (135-145)
[2024-03-27 07:27] LABS: Glucose, Whole Blood 228 mg/dL (60-115)
[2024-03-27] MEDS: ondansetron HCL 4 MG/2 ML VIAL IVPUSH ×3 (08:02→21:26)
[2024-03-27] MEDS: 0.9 % Sodium Chloride Flush 3 ML SYRINGE IVFLUSH ×3 (08:03→23:53)
[2024-03-27] MEDS: Insulin Lispro 100 UNIT/ML 3 ML VIAL SUBCUT ×3 (08:05→21:25)
[2024-03-27] MEDS: Spironolactone 25 MG TABLET PO (08:10)
[2024-03-27] MEDS: Atorvastatin Calcium 40 MG TABLET PO (08:11)
[2024-03-27] MEDS: Amiodarone HCL 200 MG TABLET PO (08:11)
[2024-03-27] MEDS: Metoprolol Tartrate 25 MG TABLET PO ×2 (08:11→21:32)
[2024-03-27] MEDS: Bumetanide 1 MG TABLET 2 MG PO ×2 (08:11→21:31)
[2024-03-27] MEDS: carvediloL 6.25 MG TABLET PO ×2 (08:11→21:32)
--- NOTE | 2024-03-27 10:49 | MHC.CM.PN ---
EMR reviewed. Patient not medically cleared for dc at this time. CM will continue to follow.
[2024-03-27 11:26] LABS: Glucose, Whole Blood 219 mg/dL (60-115)
--- NOTE | 2024-03-27 12:14 | P.PNGS_ITS ---
Subjective Subjective Date of Service: 03/27/24 <Ashlyn Sanchez PA-C - Last Filed: 03/27/24 12:18> 03/27/24 <Navdeep Lombardo MD - Last Filed: 03/27/24 14:37> Interval history: RLQ/right flank pain improved since drainage yesterday. Continues to have significant nausea and dry heaving. Able to keep only a little water down. < Ashlyn Sanchez PA-C - Last Filed: 03/27/24 12:18> Physical Exam 2 Vital Signs: Vital Signs: Last Vital Signs Temp 96.9 F 03/27/24 07:11 Pulse 71 03/27/24 08:11 Resp 16 03/27/24 07:11 BP 155/69 H 03/27/24 08:11 Pulse Ox 97 03/27/24 07:11 O2 Del Method Room Air 03/27/24 07:11 BMI result Body Mass Index 28.0 <Ashlyn Sanchez PA-C - Last Filed: 03/27/24 12:18> Const: General: no acute distress and alert <Ashlyn Sanchez PA-C - Last Filed: 03/27/24 12:18> Orientation/consciousness: patient oriented x3 <Ashlyn Sanchez PA-C - Last Filed: 03/27/24 12:18> Resp: Effort & Inspection: normal respiratory effort <Ashlyn Sanchez PA-C - Last Filed: 03/27/24 12:18> GI: Other: RLQ/right flank- [address]- one with purulent and one with thick sanguineous/purulent I&D site open, packing in place, no significant drainage right flank edematous and boggy without appreciable fluctuance <Ashlyn Sanchez PA-C - Last Filed: 03/27/24 12:18> Neuro: General: patient oriented x3 <AREN Nina Last Filed: 03/27/24 12:18> Objective Data Active Medications Acetaminophen (Acetaminophen 325 Mg Tablet) 650 mg PO QID PRN PRN Reason: headache, temp > 101 Amiodarone HCl (Amiodarone Hcl 200 Mg Tablet) 200 mg PO DAILY [facility] Last Admin: 03/27/24 08:11 Dose: 200 mg Documented By: TYRELL Atorvastatin Calcium (Atorvastatin Calcium 40 Mg Tablet) 40 mg PO DAILY [facility] Last Admin: 03/27/24 08:11 Dose: 40 mg Documented By: TYRELL Bumetanide (Bumetanide 1 Mg Tablet) 2 mg PO BID [facility]; Protocol Last Admin: 03/27/24 08:11 Dose: 2 mg Documented By: TYRELL Carvedilol (Carvedilol 6.25 Mg Tablet) 6.25 mg PO BID [facility]; Protocol Last Admin: 03/27/24 08:11 Dose: 6.25 mg Documented By: TYRELL Glucose (Glucose Gel 15 Gm Gel..Gram.) 15 gm PO Q15M PRN; Protocol PRN Reason: per Hypoglycemia Standing Ord. Hydromorphone HCl (Hydromorphone Hcl 1 Mg/Ml Syringe) 1 mg IVPUSH Q4H PRN; Protocol PRN Reason: Pain, Severe (Pain Scale 7-10) Last Admin: 03/27/24 10:29 Dose: 1 mg Documented By: TYRELL Piperacillin Sod/Tazobactam (Sod 3.375 gm/ Sodium Chloride) 50 mls @ 100 mls/hr IV Q6H [facility] Last Infusion: 03/27/24 12:03 Dose: Infused Documented By: TYRELL Dextrose (D10) 250 mls @ 750 mls/hr IV Q15M PRN; Protocol PRN Reason: per Hypoglycemia Standing Ord. Dextrose/Sodium Chloride (D51/2ns) 1,000 mls @ 100 mls/hr IVCONT .Q10H [facility] Last Admin: 03/27/24 11:13 Dose: 100 mls/hr Documented By: TYRELL Insulin Human Lispro (Insulin Lispro 100 Unit/Ml 3 Ml Vial) 0 unit SUBCUT QIDACHS [facility]; Protocol Last Admin: 03/27/24 12:07 Dose: 4 unit Documented By: TYRELL Metoprolol Tartrate (Metoprolol Tartrate 25 Mg Tablet) 25 mg PO BID [facility]; Protocol Last Admin: 03/27/24 08:11 Dose: 25 mg Documented By: TYRELL Nitroglycerin (Nitroglycerin 0.4 Mg Tab.Subl) 0.4 mg SUBLINGUAL Q5M PRN PRN Reason: chest pain Omeprazole (Omeprazole 20 Mg Capsule.Dr) 20 mg PO BID@0630,1630 [facility] Last Admin: 03/27/24 05:25 Dose: 20 mg Documented By: PEACE Ondansetron HCl (Ondansetron Hcl 4 Mg/2 Ml Vial) 4 mg IVPUSH QID PRN PRN Reason: Nausea Last Admin: 03/27/24 08:02 Dose: 4 mg Documented By: TYRELL Oxycodone HCl (Oxycodone Hcl Immed Release 5 Mg Tablet) 5 mg PO Q6H PRN PRN Reason: Pain, Moderate(Pain Scale 4-6) Oxycodone HCl (Oxycodone Hcl Immed Release 5 Mg Tablet) 10 mg PO Q4H PRN PRN Reason: Pain, Severe (Pain Scale 7-10) Promethazine HCl (Promethazine Hcl 25 Mg/Ml Vial) 12.5 mg IM Q6H PRN PRN Reason: Nausea and Vomiting Sodium Chloride (0.9 % Sodium Chloride Flush 3 Ml Syringe) [facility] Last Admin: 03/27/24 08:03 Dose: 3 ml Documented By: TYRELL Spironolactone (Spironolactone 25 Mg Tablet) 25 mg PO DAILY [facility]; Protocol Last Admin: 03/27/24 08:10 Dose: 25 mg Documented By: TYRELL Zolpidem Tartrate (Zolpidem Tartrate 5 Mg Tablet) 5 mg PO BEDTIME PRN PRN Reason: Insomnia Last Admin: 03/25/24 20:48 Dose: 5 mg Documented By: ZENON <Ashlyn Sanchez PA-C - Last Filed: 03/27/24 12:18> Labs CBC & Chem 7: 03/27/24 05:26 03/27/24 05:26 <Ashlyn Sanchez PA-C - Last Filed: 03/27/24 12:18> Labs: Laboratory Results - last 24 hr 03/26/24 03/26/24 03/27/24 16:14 21:25 05:26 MCV 86.5 MCH 28.0 MCHC 32.3 RDW 14.6 Plt Count 264 MPV 8.7 L Immature Gran % (Auto) 4.0 H Neut % (Auto) 79.4 H Lymph % (Auto) 5.1 L Treasure % (Auto) 7.5 Eos % (Auto) 3.5 Baso % (Auto) 0.5 Lymph # (Auto) 0.6 L Treasure # (Auto) 0.9 Eos # (Auto) 0.4 Baso # (Auto) 0.1 Abs Immat Gran (auto) 0.47 H Absolute Neuts (auto) 9.2 H Absolute Nucleated RBC 0.000 Nucleated RBC % (auto) 0.0 Anion Gap 15 Estim Creat Clear Calc 56.9 Estimated GFR 41 POC Glucose 158 H 189 H Random Glucose 248 H Calcium 8.8 03/27/24 03/27/24 07:15 11:19 MCV MCH MCHC RDW Plt Count MPV Immature Gran % (Auto) Neut % (Auto) Lymph % (Auto) Treasure % (Auto) Eos % (Auto) Baso % (Auto) Lymph # (Auto) Treasure # (Auto) Eos # (Auto) Baso # (Auto) Abs Immat Gran (auto) Absolute Neuts (auto) Absolute Nucleated RBC Nucleated RBC % (auto) Anion Gap Estim Creat Clear Calc Estimated GFR POC Glucose 228 H 219 H Random Glucose Calcium <Ashlyn Sanchez PA-C - Last Filed: 03/27/24 12:18> Microbiology Microbiology Results: Microbiology 03/24/24 13:35 Gram Stain - Final Abscess Intra-abdominal Routine Culture - Preliminary No growth after 2 days Anaerobic Culture - Preliminary Culture in progress. <Ashlyn Sanchez PA-C - Last Filed: 03/27/24 12:18> Procedures Date of Service Date of Service: 03/27/24 <Ashlyn Sanchez PA-C - Last Filed: 03/27/24 12:18> 03/27/24 <Navdeep Lombardo MD - Last Filed: 03/27/24 14:37> Progress Note: A&P Assessment and plan (1) Abdominal fluid collection: Status: Acute <Ashlyn Sanchez PA-C - Last Filed: 03/27/24 12:18> Assessment and Plan: 64-year-old male patient with a previous history of perforated appendicitis with abdominal wall abscess now with recurrent abscess involving the retroperitoneum and abdominal wall. Underwent IR drainage 5/10 and bedside I&D of right flank abscess. WBC significantly improved today. Cultures with no growth. Keep drains in place, cont IV abx. I&D site packing advanced and dressing changed. Cont IVF until PO intake increases. <Ashlyn Sanchez PA-C - Last Filed: 03/27/24 12:18> 64-year-old male patient with a previous history of perforated appendicitis with abdominal wall abscess now with recurrent abscess involving the retroperitoneum and abdominal wall. Underwent IR drainage 5/10 and bedside I&D of right flank abscess. WBC significantly improved today. Cultures with no growth. Keep drains in place, cont IV abx. I&D site packing advanced and dressing changed. Cont IVF until PO intake increases. Agree with the above assessment and plan. Await final wound culture results. Change antibiotics for persistent nausea/vomiting. <Navdeep Lombardo MD - Last Filed: 03/27/24 14:37> Time Spent With Patient Time: Total time managing care of this patient today ____ minutes. <Ashlyn Sanchez PA-C - Last Filed: 03/27/24 12:18> Quality Stroke Does the patient have a stroke diagnosis?: No <Ashlyn Sanchez PA-C - Last Filed: 03/27/24 12:18> VTE Prior VTE?: No <Ashlyn Sanchez PA-C - Last Filed: 03/27/24 12:18> VTE Risk Level:: Surgical - moderate <Ashlyn Sanchez PA-C - Last Filed: 03/27/24 12:18> VTE Device Contraindication: Treatment Not Indicated <Ashlyn Sanchez PA-C - Last Filed: 03/27/24 12:18> VTE Drug Contraindication: Treatment Not Indicated <Ashlyn Sanchez PA-C - Last Filed: 03/27/24 12:18>
--- NOTE | 2024-03-27 13:57 | HO.WOUND ---
Wound Consult: Initial / Follow up 64yr old?Male admitted to [facility] on 03/23/24 - See progress notes and H&P for detailed history.? Wound consult placed for Coccyx redness POA.? Arrival to bedside pt was agreeable to sacral assessment - pt reports he has no pain and reports there is no injury. after sacrum assessed and MASD in addision to Stage 2 pressure injury - he was educated on turning and repositioning and preventing further breakdown. Sacrum Etiology: ?Left Sacrum Stage 2 Pressure Injury ?Present on Admission Measurements: 2cm x 2.2cm x 0.1cm Wound Bed: dry wound bed - partial thickness tissue loss red maroon nonblanchable tissue Drainage / Odor: None noted Edges: ? irregular Candace wound: MASD (Moisture Associated Skin Damage )? No Induration, Fluctuance or Warmth noted Pain: denies Goals of Treatment: ? Barrier cream or Foam dressing to protetc from friction moisture and off load pressure with pillows and or wedges. Recommendations: 1. Turn and Reposition every 2 hours and as needed for patient comfort.? Use pillows or wedges to support off loading positions. 2. Off Load all bony prominences with use of pillows and heel boots if needed.? Apply Preventative foams where needed. ? 3. Monitor for incontinence and moisture control, use barrier creams when needed for prevention and treatment. 4. Provide adequate and supplemental nutrition.? 5. Order or Continue low air loss mattress. 6. When applicable maintain blood glucose levels per Providers order. 7. Sacrum - Routine Cleansing - Apply Sacral Foam dressing peel back and assess Q shift, change every 3 days. If patient refused foam dressing consider barrier cream twice daily and PRN. Re-consult wound care Nurse for wound deterioration or wound changes.
--- NOTE | 2024-03-27 15:08 | PC.NURSE ---
0.5mg IVP dilaudid pulled from pyxis at 1141 am 03/26/2024 and administered immediately after for complaints of 9/10 pain. Pt pain reassessed at 1230pm 03/26/2024 for 6/10 pain.
[2024-03-27] MEDS: metroNIDAZOLE/NS 500 MG/100 ML PIGGYBACK 100 MG IV ×2 (15:18→22:46)
[2024-03-27 16:27] LABS: Glucose, Whole Blood 174 mg/dL (60-115)
[2024-03-27] MEDS: levoFLOXacin/D5W 750 MG/150 ML PIGGYBACK 100 MG IV (16:30)
[2024-03-27] MEDS: Promethazine HCL 25 MG/ML VIAL 12.5 MG IM (18:16)
[2024-03-27 20:24] LABS: Glucose, Whole Blood 168 mg/dL (60-115)
[2024-03-28] VITALS (7 sets, daily range): BP systolic 148–152; BP diastolic 66–76; PULSE 74–76; RESP 18–20; TEMP 36–36.1; O2SAT 97–99; BMI 28.0
[2024-03-28] MEDS: HYDROmorphone HCl 1 MG/ML SYRINGE IVPUSH ×2 (00:01→11:43)
[2024-03-28] MEDS: Promethazine HCL 25 MG/ML VIAL 12.5 MG IM (01:44)
[2024-03-28] MEDS: ondansetron HCL 4 MG/2 ML VIAL IVPUSH ×2 (05:19→13:23)
[2024-03-28] MEDS: Dextrose 5 % and 0.45 % NaCl 1,000 ML 100 ML IVCONT ×2 (05:46→18:34)
[2024-03-28] MEDS: metroNIDAZOLE/NS 500 MG/100 ML PIGGYBACK 100 MG IV ×3 (06:39→21:12)
[2024-03-28 07:38] LABS: Glucose, Whole Blood 196 mg/dL (60-115)
[2024-03-28] MEDS: Atorvastatin Calcium 40 MG TABLET PO (08:16)
[2024-03-28] MEDS: Spironolactone 25 MG TABLET PO (08:16)
[2024-03-28] MEDS: Insulin Lispro 100 UNIT/ML 3 ML VIAL SUBCUT ×2 (08:16→16:37)
[2024-03-28] MEDS: Bumetanide 1 MG TABLET 2 MG PO ×2 (08:16→21:04)
[2024-03-28] MEDS: Amiodarone HCL 200 MG TABLET PO (08:17)
[2024-03-28] MEDS: 0.9 % Sodium Chloride Flush 3 ML SYRINGE IVFLUSH ×3 (08:17→21:05)
[2024-03-28] MEDS: carvediloL 6.25 MG TABLET PO ×2 (08:17→21:04)
[2024-03-28] MEDS: bisacodyL 5 MG TABLET.DR PO (08:17)
[2024-03-28] MEDS: Metoprolol Tartrate 25 MG TABLET PO ×2 (08:17→21:05)
--- NOTE | 2024-03-28 10:05 | P.PNGS_ITS ---
Subjective Subjective Date of Service: 03/28/24 Interval history: Had difficulty last night with the bed. Unable to get comfortable due to size of bed however c/o severe right flank pain and refusing to get out of bed. Still c/o dry heaving but overall reports he feels a little better than yesterday. Physical Exam 2 Vital Signs: Vital Signs: Last Vital Signs Temp 96.9 F 03/28/24 07:59 Pulse 76 03/28/24 07:59 Resp 18 03/28/24 07:59 BP 149/67 H 03/28/24 08:16 Pulse Ox 99 03/28/24 07:59 O2 Del Method Room Air 03/28/24 07:59 BMI result Body Mass Index 28.0 Const: General: no acute distress and alert Orientation/consciousness: p atient oriented x3 Resp: Effort & Inspection: normal respiratory effort GI: Other: IR drains with continued purulent output, amount decreasing I&D site wound packing advanced, some purulent drainage right flank feels overall less full and boggy then previous days Palpation (GI): Soft to palpation and no guarding Skin: General skin exam: no rashes or lesions noted Neuro: General: patient oriented x3 Objective Data Active Medications Acetaminophen (Acetaminophen 325 Mg Tablet) 650 mg PO QID PRN PRN Reason: headache, temp > 101 Amiodarone HCl (Amiodarone Hcl 200 Mg Tablet) 200 mg PO DAILY [facility] Last Admin: 03/28/24 08:17 Dose: 200 mg Documented By: SHELLIE Atorvastatin Calcium (Atorvastatin Calcium 40 Mg Tablet) 40 mg PO DAILY [facility] Last Admin: 03/28/24 08:16 Dose: 40 mg Documented By: SHELLIE Bisacodyl (Bisacodyl 5 Mg Tablet.) 5 mg PO DAILY [facility] Last Admin: 03/28/24 08:17 Dose: 5 mg Documented By: SHELLIE Bumetanide (Bumetanide 1 Mg Tablet) 2 mg PO BID [facility]; Protocol Last Admin: 03/28/24 08:16 Dose: 2 mg Documented By: SHELLIE Carvedilol (Carvedilol 6.25 Mg Tablet) 6.25 mg PO BID [facility]; Protocol Last Admin: 03/28/24 08:17 Dose: 6.25 mg Documented By: SHELLIE Glucose (Glucose Gel 15 Gm Gel..Gram.) 15 gm PO Q15M PRN; Protocol PRN Reason: per Hypoglycemia Standing Ord. Hydromorphone HCl (Hydromorphone Hcl 1 Mg/Ml Syringe) 1 mg IVPUSH Q4H PRN; Protocol PRN Reason: Pain, Severe (Pain Scale 7-10) Last Admin: 03/28/24 00:01 Dose: 1 mg Documented By: KYLE Dextrose (D10) 250 mls @ 750 mls/hr IV Q15M PRN; Protocol PRN Reason: per Hypoglycemia Standing Ord. Dextrose/Sodium Chloride (D51/2ns) 1,000 mls @ 100 mls/hr IVCONT .Q10H [facility] Last Infusion: 03/28/24 08:19 Dose: 100 mls/hr Documented By: SHELLIE Metronidazole (Flagyl) 500 mg in 100 mls @ 100 mls/hr IV Q8H [facility] Last Infusion: 03/28/24 07:39 Dose: Infused Documented By: SHELLIE Levofloxacin (Levaquin) 750 mg in 150 mls @ 100 mls/hr IV Q24H [facility] Last Infusion: 03/27/24 18:09 Dose: Infused Documented By: LUCIANA Insulin Human Lispro (Insulin Lispro 100 Unit/Ml 3 Ml Vial) 0 unit SUBCUT QIDACHS [facility]; Protocol Last Admin: 03/28/24 08:16 Dose: 2 unit Documented By: SHELLIE Magnesium Hydroxide (Milk Of Magnesia 30 Ml Oral.Susp) 30 ml PO BID PRN PRN Reason: Constipation Metoprolol Tartrate (Metoprolol Tartrate 25 Mg Tablet) 25 mg PO BID [facility]; Protocol Last Admin: 03/28/24 08:17 Dose: 25 mg Documented By: SHELLIE Nitroglycerin (Nitroglycerin 0.4 Mg Tab.Subl) 0.4 mg SUBLINGUAL Q5M PRN PRN Reason: chest pain Omeprazole (Omeprazole 20 Mg Capsule.Dr) 20 mg PO BID@0630,1630 [facility] Last Admin: 03/28/24 05:46 Dose: Not Given Documented By: KYLE Non-Admin Reason: Patient Refused Ondansetron HCl (Ondansetron Hcl 4 Mg/2 Ml Vial) 4 mg IVPUSH QID PRN PRN Reason: Nausea Last Admin: 03/28/24 05:19 Dose: 4 mg Documented By: KYLE Oxycodone HCl (Oxycodone Hcl Immed Release 5 Mg Tablet) 5 mg PO Q6H PRN PRN Reason: Pain, Moderate(Pain Scale 4-6) Oxycodone HCl (Oxycodone Hcl Immed Release 5 Mg Tablet) 10 mg PO Q4H PRN PRN Reason: Pain, Severe (Pain Scale 7-10) Promethazine HCl (Promethazine Hcl 25 Mg/Ml Vial) 12.5 mg IM Q6H PRN PRN Reason: Nausea and Vomiting Last Admin: 03/28/24 01:44 Dose: 12.5 mg Documented By: KYLE Senna (Senna [place] Extract Oral Syrup 15 Ml Syrup) 15 ml PO BEDTIME [facility] Sodium Biphosphate/Sodium Phosphate (Sodium Phosphate,[place]-Dibasic 133 Ml Enema) 133 ml MO ONCE PRN PRN Reason: Constipation Sodium Chloride (0.9 % Sodium Chloride Flush 3 Ml Syringe) 3 ml IVFLUSH QSHIFT [facility] Last Admin: 03/28/24 08:17 Dose: 3 ml Documented By: SHELLIE Spironolactone (Spironolactone 25 Mg Tablet) 25 mg PO DAILY [facility]; Protocol Last Admin: 03/28/24 08:16 Dose: 25 mg Documented By: SHELLIE Zolpidem Tartrate (Zolpidem Tartrate 5 Mg Tablet) 5 mg PO BEDTIME PRN PRN Reason: Insomnia Last Admin: 03/25/24 20:48 Dose: 5 mg Documented By: ZENON Labs 03/27/24 05:26 03/27/24 05:26 Labs: Laboratory Results - last 24 hr 03/27/24 03/27/24 03/27/24 11:19 16:22 20:10 POC Glucose 219 H 174 H 168 H 03/28/24 07:23 POC Glucose 196 H Microbiology Microbiology Results: Microbiology 03/24/24 13:35 Gram Stain - Final Abscess Intra-abdominal Routine Culture - Preliminary No growth after 2 days Anaerobic Culture - Preliminary Culture in progress. Procedures Date of Service Date of Service: 03/28/24 Progress Note: A&P Assessment and plan (1) Abdominal fluid collection: Status: Acute Plan 64-year-old male patient with a previous history of perforated appendicitis with abdominal wall abscess now with recurrent abscess involving the retroperitoneum and abdominal wall. Underwent IR drainage 03/24 and bedside I&D of right flank abscess 03/26. Drains continue with purulent output, keep drains in place. Abx switched yesterday with ?improvement in nausea. I&D site packing advanced again today and dressing changed. Cont IVF until PO intake increases. Strongly encouraged OOB/ambulation but patient is refusing. Discussed importance in recovery and he states he will get out of bed when he is ready, hopefully tomorrow. Possible repeat CT scan to reassess collections if no significant improvement in pain in the next couple of days. Time Spent With Patient Time: Total time managing care of this patient today ____ minutes. Quality Stroke Does the patient have a stroke diagnosis?: No VTE Prior VTE?: No VTE Risk Level:: Surgical - moderate VTE Device Contraindication: Treatment Not Indicated VTE Drug Contraindication: Treatment Not Indicated
[2024-03-28 11:16] LABS: Glucose, Whole Blood 162 mg/dL (60-115)
--- NOTE | 2024-03-28 11:42 | MHC.CLN ---
PT WITH INCREASED NUTRITION RISK R/T PRESSURE INJURY VARIABLE PO INTAKE RANGING FROM 0-100% PT IS S/P SX NOTED DRY HEAVING DIET RX: 2000DM -RECOMMEND INCREASING KCALS 2200DM SECONDARY TO INCREASE KCALS NEEDS RECOMMEND ADDING ENSURE MAX BID AND GELATEIN TID WITH MEAL TO PROMOTE WOUND HEALING ENSURE MAX PROVIDES 300KCALS, 60G PROTEIN GELATEIN TID PROVIDES 480KCALS, 60G PROTEIN WITH 100% ACCEPTANCE MONITOR PO INTAKE AND ENCOURAGE SUPPLEMENTS SEE ALSO FULL CLINICAL NUTRITION ASSESSMENT
[2024-03-28] MEDS: Scopolamine 1.5 MG PATCH.TD.3 EAR-BEHIND (15:44)
[2024-03-28] MEDS: levoFLOXacin/D5W 750 MG/150 ML PIGGYBACK 150 MG IV (15:44)
[2024-03-28 16:20] LABS: Glucose, Whole Blood 183 mg/dL (60-115)
[2024-03-28] MEDS: Omeprazole 20 MG CAPSULE.DR PO (16:38)
--- NOTE | 2024-03-28 17:13 | PC.NURSE ---
10 ml of cloudy cheung/brown drainage emptied from SHY A. 15 ml of drainage emptied from cloudy cheung/maroon drainage emptied from SHY B.
--- NOTE | 2024-03-28 17:15 | PC.NURSE ---
FARHEEN Sanchez made aware INFORMATION SERVICES VICE PRESIDENT reported black tarry stool this shift via tiger text at 14:54, no new orders at this time. PA made aware pt continues to report nausea, scopalamine patch ordered, placed behind left ear. Pending effectiveness.
[2024-03-28 20:25] LABS: Glucose, Whole Blood 149 mg/dL (60-115)
[2024-03-28] MEDS: Zolpidem Tartrate 5 MG TABLET PO (22:59)
[2024-03-29] VITALS (7 sets, daily range): BP systolic 112–150; BP diastolic 56–68; PULSE 70–76; RESP 16–18; TEMP 36.1–36.6; O2SAT 97–98
[2024-03-29] MEDS: Dextrose 5 % and 0.45 % NaCl 1,000 ML 100 ML IVCONT ×2 (04:48→15:40)
[2024-03-29] MEDS: metroNIDAZOLE/NS 500 MG/100 ML PIGGYBACK 100 MG IV ×3 (05:51→23:07)
[2024-03-29] MEDS: Omeprazole 20 MG CAPSULE.DR PO ×2 (05:51→15:40)
[2024-03-29 06:10] LABS: MANUAL DIFF FLAG NO
[2024-03-29 06:25] LABS: Basophils Absolute Auto 0.1 X10*3/uL (0.0-0.2); Basophils Percent Auto 0.3 % (0-2); Eosinophils Absolute Auto 0.5 X10*3/uL (0.0-0.4); Eosinophils Percent Auto 3.1 % (0-4); Hematocrit 25.6 % (42.0-52.0); Hemoglobin 8.7 g/dl (14.0-18.0); Imm Gran Abs Auto 0.57 X10*3/uL (0.00-0.03); Imm Gran Pct Auto 3.3 % (0.0-0.4); Lymphocytes Absolute Auto 1.1 X10*3/uL (1.2-4.9); Lymphocytes Percent Auto 6.3 % (20-40); Mean Corpuscular Hemoglobin 28.2 pg (27.0-33.0); Mean Corpuscular Volume 83.1 fL (80.0-98.0); Mean Platelet Volume 8.6 fL (9.4-12.4); Monocytes Absolute Auto 1.2 X10*3/uL (0.1-1.2); Monocytes Percent Auto 6.9 % (2-11); Neutrophils Absolute Auto 13.9 x10*3/uL (2.0-8.3); Neutrophils Percent Auto 80.1 % (45-73); Platelet Count 262 X10*3/uL (160-400); Red Blood Count 3.08 X10*6/uL (4.60-5.80); Red Cell Distribution Width 14.4 % (11.0-16.0); White Blood Count 17.3 X10*3/uL (4.8-10.8)
[2024-03-29 07:27] LABS: Glucose, Whole Blood 161 mg/dL (60-115)
--- NOTE | 2024-03-29 08:47 | PM.PNGS ---
Subjective Subjective Date of Service: 03/29/24 Interval history: Patient reports less nausea, no vomiting this morning although has not eaten anything since Wednesday. Still having pain in the right flank. Physical Exam Vital Signs: Vital Signs: Last Vital Signs Temp 96.9 F 03/29/24 07:18 Pulse 74 03/29/24 07:18 Resp 16 03/29/24 07:18 BP 146/65 H 03/29/24 07:18 Pulse Ox 97 03/29/24 07:18 O2 Del Method Room Air 03/29/24 07:18 BMI result Body Mass Index 28.0 Const: General: no acute distress Nutritional Appearance: well nourished Orientation/consciousness: patient oriented x3 Resp: Effort & Inspection: normal respiratory effort GI: Other: Soft, tender right lower quadrant and flank. SHY with purulent fluid out of both drains. Neuro: General: patient oriented x3 Objective Data Active Medications Acetaminophen (Acetaminophen 325 Mg Tablet) 650 mg PO QID PRN PRN Reason: headache, temp > 101 Amiodarone HCl (Amiodarone Hcl 200 Mg Tablet) 200 mg PO DAILY [facility] Last Admin: 03/28/24 08:17 Dose: 200 mg Documented By: SHELLIE Atorvastatin Calcium (Atorvastatin Calcium 40 Mg Tablet) 40 mg PO DAILY [facility] Last Admin: 03/28/24 08:16 Dose: 40 mg Documented By: SHELLIE Bisacodyl (Bisacodyl 5 Mg Tablet.) 5 mg PO DAILY [facility] Last Admin: 03/28/24 08:17 Dose: 5 mg Documented By: SHELLIE Bumetanide (Bumetanide 1 Mg Tablet) 2 mg PO BID [facility]; Protocol Last Admin: 03/28/24 21:04 Dose: 2 mg Documented By: SHELLI Carvedilol (Carvedilol 6.25 Mg Tablet) 6.25 mg PO BID [facility]; Protocol Last Admin: 03/28/24 21:04 Dose: 6.25 mg Documented By: SHELLI Glucose (Glucose Gel 15 Gm Gel..Gram.) 15 gm PO Q15M PRN; Protocol PRN Reason: per Hypoglycemia Standing Ord. Hydromorphone HCl (Hydromorphone Hcl 1 Mg/Ml Syringe) 1 mg IVPUSH Q4H PRN; Protocol PRN Reason: Pain, Severe (Pain Scale 7-10) Last Admin: 03/28/24 11:43 Dose: 1 mg Documented By: SHELLIE Dextrose (D10) 250 mls @ 750 mls/hr IV Q15M PRN; Protocol PRN Reason: per Hypoglycemia Standing Ord. Dextrose/Sodium Chloride (D51/2ns) 1,000 mls @ 100 mls/hr IVCONT .Q10H [facility] Last Admin: 03/29/24 04:48 Dose: 100 mls/hr Documented By: ANTCHRIS Metronidazole (Flagyl) 500 mg in 100 mls @ 100 mls/hr IV Q8H [facility] Last Infusion: 03/29/24 07:11 Dose: Infused Documented By: FRANCIA Levofloxacin (Levaquin) 750 mg in 150 mls @ 100 mls/hr IV Q24H [facility] Last Infusion: 03/28/24 17:30 Dose: Infused Documented By: SHELLIE Insulin Human Lispro (Insulin Lispro 100 Unit/Ml 3 Ml Vial) 0 unit SUBCUT QIDACHS [facility]; Protocol Last Admin: 03/29/24 08:30 Dose: Not Given Documented By: FRANCIA Non-Admin Reason: pt not eating Comments: Ashlyn Sanchez aware Magnesium Hydroxide (Milk Of Magnesia 30 Ml Oral.Susp) 30 ml PO BID PRN PRN Reason: Constipation Metoprolol Tartrate (Metoprolol Tartrate 25 Mg Tablet) 25 mg PO BID [facility]; Protocol Last Admin: 03/28/24 21:05 Dose: 25 mg Documented By: SHELLI Nitroglycerin (Nitroglycerin 0.4 Mg Tab.Subl) 0.4 mg SUBLINGUAL Q5M PRN PRN Reason: chest pain Omeprazole (Omeprazole 20 Mg Capsule.Dr) 20 mg PO BID@0630,1630 [facility] Last Admin: 03/29/24 05:51 Dose: 20 mg Documented By: ANTCHRIS Ondansetron HCl (Ondansetron Hcl 4 Mg/2 Ml Vial) 4 mg IVPUSH QID PRN PRN Reason: Nausea Last Admin: 03/28/24 13:23 Dose: 4 mg Documented By: DABIsabel Oxycodone HCl (Oxycodone Hcl Immed Release 5 Mg Tablet) 5 mg PO Q6H PRN PRN Reason: Pain, Moderate(Pain Scale 4-6) Oxycodone HCl (Oxycodone Hcl Immed Release 5 Mg Tablet) 10 mg PO Q4H PRN PRN Reason: Pain, Severe (Pain Scale 7-10) Scopolamine (Scopolamine 1.5 Mg Patch.Td.3) 1.5 mg EAR-BEHIND Q72H [facility] Last Admin: 03/28/24 15:44 Dose: 1.5 mg Documented By: SHELLIE Senna (Senna [place] Extract Oral Syrup 15 Ml Syrup) 15 ml PO BEDTIME [facility] Last Admin: 03/28/24 21:11 Dose: Not Given Documented By: SHELLI Non-Admin Reason: Patient Refused Sodium Biphosphate/Sodium Phosphate (Sodium Phosphate,[place]-Dibasic 133 Ml Enema) 133 ml [place] ONCE PRN PRN Reason: Constipation Sodium Chloride (0.9 % Sodium Chloride Flush 3 Ml Syringe) 3 ml IVFLUSH QSHIFT [facility] Last Admin: 03/28/24 21:05 Dose: 3 ml Documented By: SHELLI Spironolactone (Spironolactone 25 Mg Tablet) 25 mg PO DAILY [facility]; Protocol Last Admin: 03/28/24 08:16 Dose: 25 mg Documented By: SHELLIE Zolpidem Tartrate (Zolpidem Tartrate 5 Mg Tablet) 5 mg PO BEDTIME PRN PRN Reason: Insomnia Last Admin: 03/28/24 22:59 Dose: 5 mg Documented By: SHELLI Labs 03/29/24 05:55 03/27/24 05:26 Labs: Laboratory Results - last 24 hr 03/28/24 03/28/24 03/28/24 11:06 16:14 20:18 MCV MCH MCHC RDW Plt Count MPV Immature Gran % (Auto) Neut % (Auto) Lymph % (Auto) [place] % (Auto) Eos % (Auto) Baso % (Auto) Lymph # (Auto) [place] # (Auto) Eos # (Auto) Baso # (Auto) Abs Immat Gran (auto) Absolute Neuts (auto) Absolute Nucleated RBC Nucleated RBC % (auto) POC Glucose 162 H 183 H 149 H 03/29/24 03/29/24 05:55 07:21 MCV 83.1 MCH 28.2 MCHC 34.0 RDW 14.4 Plt Count 262 MPV 8.6 L Immature Gran % (Auto) 3.3 H Neut % (Auto) 80.1 H Lymph % (Auto) 6.3 L [place] % (Auto) 6.9 Eos % (Auto) 3.1 Baso % (Auto) 0.3 Lymph # (Auto) 1.1 L [place] # (Auto) 1.2 Eos # (Auto) 0.5 H Baso # (Auto) 0.1 Abs Immat Gran (auto) 0.57 H Absolute Neuts (auto) 13.9 H Absolute Nucleated RBC 0.000 Nucleated RBC % (auto) 0.0 POC Glucose 161 H Microbiology Microbiology Results: Microbiology 03/24/24 13:35 Gram Stain - Final Abscess Intra-abdominal Routine Culture - Preliminary No growth after 2 days Anaerobic Culture - Preliminary Culture in progress. Procedures Date of Service Date of Service: 03/29/24 Progress Note: A&P Assessment and plan (1) Abdominal fluid collection: Status: Acute Plan 64-year-old male patient with recurring retroperitoneal and abdominal wall abscess, status post IR drainage and incision and drainage. Patient currently on Levaquin and Flagyl. Wound cultures negative to date. WBC increased to [address] abdomen and pelvis follow up abscess. Discussed with the patient he agrees with the plan. Time Spent With Patient Time: Total time managing care of this patient today ____ minutes. Quality Stroke Does the patient have a stroke diagnosis?: No VTE Prior VTE?: No VTE Risk Level:: Surgical - moderate VTE Device Contraindication: Treatment Not Indicated VTE Drug Contraindication: Treatment Not Indicated
[2024-03-29] MEDS: Metoprolol Tartrate 25 MG TABLET PO ×2 (09:27→21:29)
[2024-03-29] MEDS: carvediloL 6.25 MG TABLET PO ×2 (09:28→21:29)
[2024-03-29] MEDS: Spironolactone 25 MG TABLET PO (09:28)
[2024-03-29] MEDS: Atorvastatin Calcium 40 MG TABLET PO (09:28)
[2024-03-29] MEDS: Bumetanide 1 MG TABLET 2 MG PO ×2 (09:28→21:29)
[2024-03-29] MEDS: Amiodarone HCL 200 MG TABLET PO (09:28)
--- NOTE | 2024-03-29 10:20 | MHC.CM.PN ---
EMR reviewed. Patient not medically cleared for dc. No change to dc plan. CM will continue to follow.
--- NOTE | 2024-03-29 10:51 | MHC.CLN ---
F/U PT WITH INCREASED NUTRITION RISK R/T PRESSURE INJURY. VARIABLE PO INTAKE RANGING FROM 0-50%. DIET RX: 2000DM -RECOMMEND INCREASING KCALS 2200DM SECONDARY TO INCREASE KCALS NEEDS. ADDING ENSURE MAX BID AND GELATEIN TID WITH MEAL TO PROMOTE WOUND HEALING. ENSURE MAX PROVIDES 300KCALS, 60G PROTEIN; GELATEIN TID PROVIDES 480KCALS, 60G PROTEIN WITH 100% ACCEPTANCE MONITOR PO INTAKE AND ENCOURAGE SUPPLEMENTS.
[2024-03-29 11:21] LABS: Glucose, Whole Blood 183 mg/dL (60-115)
[2024-03-29] MEDS: Insulin Lispro 100 UNIT/ML 3 ML VIAL SUBCUT ×3 (11:55→21:30)
[2024-03-29] MEDS: levoFLOXacin/D5W 750 MG/150 ML PIGGYBACK 150 MG IV (15:40)
[2024-03-29 15:49] LABS: Glucose, Whole Blood 163 mg/dL (60-115)
--- NOTE | 2024-03-29 17:52 | PC.NURSE ---
Pt refused OOB, repositioning Q2H, and breakfast. insulin held this am- Ashlyn Tang aware. SHY drains draining maroon creamy colored- 20ml SHY A and 30ml SHY B No reports of nausea or pain this shift
[2024-03-29 19:54] LABS: Glucose, Whole Blood 169 mg/dL (60-115)
[2024-03-29] MEDS: Zolpidem Tartrate 5 MG TABLET PO (23:07)
[2024-03-29] MEDS: HYDROmorphone HCl 1 MG/ML SYRINGE IVPUSH (23:07)
[2024-03-30] VITALS (8 sets, daily range): BP systolic 120–149; BP diastolic 56–63; PULSE 62–67; RESP 14–20; TEMP 36.1–36.4; O2SAT 96–100
[2024-03-30] MEDS: Dextrose 5 % and 0.45 % NaCl 1,000 ML 100 ML IVCONT (02:03)
[2024-03-30] MEDS: Omeprazole 20 MG CAPSULE.DR PO ×2 (05:46→16:36)
[2024-03-30 05:57] LABS: MANUAL DIFF FLAG NO
[2024-03-30 06:27] LABS: Basophils Absolute Auto 0.1 X10*3/uL (0.0-0.2); Basophils Percent Auto 0.3 % (0-2); Eosinophils Absolute Auto 0.6 X10*3/uL (0.0-0.4); Hematocrit 23.7 % (42.0-52.0); Hemoglobin 8.1 g/dl (14.0-18.0); Imm Gran Abs Auto 0.67 X10*3/uL (0.00-0.03); Imm Gran Pct Auto 3.7 % (0.0-0.4); Lymphocytes Absolute Auto 1.3 X10*3/uL (1.2-4.9); Lymphocytes Percent Auto 7.3 % (20-40); Mean Corpuscular HGB Conc 34.2 g/dl (31.0-36.0); Mean Corpuscular Hemoglobin 29.1 pg (27.0-33.0); Mean Corpuscular Volume 85.3 fL (80.0-98.0); Mean Platelet Volume 8.9 fL (9.4-12.4); Monocytes Absolute Auto 1.3 X10*3/uL (0.1-1.2); Monocytes Percent Auto 7.4 % (2-11); Neutrophils Absolute Auto 14.1 x10*3/uL (2.0-8.3); Neutrophils Percent Auto 78.3 % (45-73); Platelet Count 240 X10*3/uL (160-400); Red Blood Count 2.78 X10*6/uL (4.60-5.80); Red Cell Distribution Width 14.6 % (11.0-16.0)
[2024-03-30 07:18] LABS: Glucose, Whole Blood 188 mg/dL (60-115)
--- NOTE | 2024-03-30 08:12 | PM.PNGS ---
Subjective Subjective Date of Service: 03/30/24 Interval history: Reports nausea and vomiting gone. Was able to tolerate sandwich yesterday. Pain is okay, controlled with current pain medications. Drains continued produce purulent material Physical Exam Vital Signs: Vital Signs: Last Vital Signs Temp 97 F 03/30/24 07:10 Pulse 65 03/30/24 07:10 Resp 14 03/30/24 07:10 BP 149/63 H 03/30/24 07:10 Pulse Ox 99 03/30/24 07:10 O2 Del Method Room Air 03/30/24 07:10 BMI result Body Mass Index 28.0 Const: General: comfortable Nutritional Appearance: well nourished Orientation/consciousness: patient oriented x3 Resp: Effort & Inspection: normal respiratory effort GI: Other: Dressings changed, packing advanced. Wounds remain open and draining. Palpation (GI): Soft to palpation and Tenderness to palpation present (GI) in the RLQ Neuro: General: patient oriented x3 Objective Data Active Medications Acetaminophen (Acetaminophen 325 Mg Tablet) 650 mg PO QID PRN PRN Reason: headache, temp > 101 Amiodarone HCl (Amiodarone Hcl 200 Mg Tablet) 200 mg PO DAILY [facility] Last Admin: 03/29/24 09:28 Dose: 200 mg Documented By: FRANCIA Atorvastatin Calcium (Atorvastatin Calcium 40 Mg Tablet) 40 mg PO DAILY [facility] Last Admin: 03/29/24 09:28 Dose: 40 mg Documented By: FRANCIA Bisacodyl (Bisacodyl 5 Mg Tablet.) 5 mg PO DAILY [facility] Last Admin: 03/29/24 09:33 Dose: Not Given Documented By: FRANCIA Non-Admin Reason: multiple stools yesterday- refused Bumetanide (Bumetanide 1 Mg Tablet) 2 mg PO BID [facility]; Protocol Last Admin: 03/29/24 21:29 Dose: 2 mg Documented By: JASPREET Carvedilol (Carvedilol 6.25 Mg Tablet) 6.25 mg PO BID [facility]; Protocol Last Admin: 03/29/24 21:29 Dose: 6.25 mg Documented By: JASPREET Glucose (Glucose Gel 15 Gm Gel..Gram.) 15 gm PO Q15M PRN; Protocol PRN Reason: per Hypoglycemia Standing Ord. Hydromorphone HCl (Hydromorphone Hcl 1 Mg/Ml Syringe) 1 mg IVPUSH Q4H PRN; Protocol PRN Reason: Pain, Severe (Pain Scale 7-10) Last Admin: 03/29/24 23:07 Dose: 1 mg Documented By: JASPREET Dextrose (D10) 250 mls @ 750 mls/hr IV Q15M PRN; Protocol PRN Reason: per Hypoglycemia Standing Ord. Dextrose/Sodium Chloride (D51/2ns) 1,000 mls @ 100 mls/hr IVCONT .Q10H [facility] Last Admin: 03/30/24 02:03 Dose: 100 mls/hr Documented By: JASPREET Metronidazole (Flagyl) 500 mg in 100 mls @ 100 mls/hr IV Q8H [facility] Last Infusion: 03/30/24 00:07 Dose: Infused Documented By: JASPREET Levofloxacin (Levaquin) 750 mg in 150 mls @ 100 mls/hr IV Q24H [facility] Last Infusion: 03/29/24 17:00 Dose: Infused Documented By: FRANCIA Insulin Human Lispro (Insulin Lispro 100 Unit/Ml 3 Ml Vial) 0 unit SUBCUT QIDACHS [facility]; Protocol Last Admin: 03/29/24 21:30 Dose: 2 unit Documented By: JASPREET Magnesium Hydroxide (Milk Of Magnesia 30 Ml Oral.Susp) 30 ml PO BID PRN PRN Reason: Constipation Metoprolol Tartrate (Metoprolol Tartrate 25 Mg Tablet) 25 mg PO BID [facility]; Protocol Last Admin: 03/29/24 21:29 Dose: 25 mg Documented By: JASPREET Nitroglycerin (Nitroglycerin 0.4 Mg Tab.Subl) 0.4 mg SUBLINGUAL Q5M PRN PRN Reason: chest pain Omeprazole (Omeprazole 20 Mg Capsule.Dr) 20 mg PO BID@0630,1630 [facility] Last Admin: 03/30/24 05:46 Dose: 20 mg Documented By: JASPREET Ondansetron HCl (Ondansetron Hcl 4 Mg/2 Ml Vial) 4 mg IVPUSH QID PRN PRN Reason: Nausea Last Admin: 03/28/24 13:23 Dose: 4 mg Documented By: TYESHA Oxycodone HCl (Oxycodone Hcl Immed Release 5 Mg Tablet) 5 mg PO Q6H PRN PRN Reason: Pain, Moderate(Pain Scale 4-6) Oxycodone HCl (Oxycodone Hcl Immed Release 5 Mg Tablet) 10 mg PO Q4H PRN PRN Reason: Pain, Severe (Pain Scale 7-10) Scopolamine (Scopolamine 1.5 Mg Patch.Td.3) 1.5 mg EAR-BEHIND Q72H [facility] Last Admin: 03/28/24 15:44 Dose: 1.5 mg Documented By: SHELLIE Senna (Senna [place] Extract Oral Syrup 15 Ml Syrup) 15 ml PO BEDTIME [facility] Last Admin: 03/29/24 21:31 Dose: Not Given Documented By: JASPREET Non-Admin Reason: Patient Refused Sodium Biphosphate/Sodium Phosphate (Sodium Phosphate,[place]-Dibasic 133 Ml Enema) 133 ml [place] ONCE PRN PRN Reason: Constipation Sodium Chloride (0.9 % Sodium Chloride Flush 3 Ml Syringe) 3 ml IVFLUSH QSHIFT [facility] Last Admin: 03/29/24 21:30 Dose: Not Given Documented By: JASPREET Non-Admin Reason: IV Running Spironolactone (Spironolactone 25 Mg Tablet) 25 mg PO DAILY [facility]; Protocol Last Admin: 03/29/24 09:28 Dose: 25 mg Documented By: FRANCIA Zolpidem Tartrate (Zolpidem Tartrate 5 Mg Tablet) 5 mg PO BEDTIME PRN PRN Reason: Insomnia Last Admin: 03/29/24 23:07 Dose: 5 mg Documented By: JASPREET Labs 03/30/24 05:16 03/27/24 05:26 Labs: Laboratory Results - last 24 hr 03/29/24 03/29/24 03/29/24 11:15 15:45 19:47 MCV MCH MCHC RDW Plt Count MPV Immature Gran % (Auto) Neut % (Auto) Lymph % (Auto) [place] % (Auto) Eos % (Auto) Baso % (Auto) Lymph # (Auto) [place] # (Auto) Eos # (Auto) Baso # (Auto) Abs Immat Gran (auto) Absolute Neuts (auto) Absolute Nucleated RBC Nucleated RBC % (auto) POC Glucose 183 H 163 H 169 H 03/30/24 03/30/24 05:16 07:15 MCV 85.3 MCH 29.1 MCHC 34.2 RDW 14.6 Plt Count 240 MPV 8.9 L Immature Gran % (Auto) 3.7 H Neut % (Auto) 78.3 H Lymph % (Auto) 7.3 L [place] % (Auto) 7.4 Eos % (Auto) 3.0 Baso % (Auto) 0.3 Lymph # (Auto) 1.3 [place] # (Auto) 1.3 H Eos # (Auto) 0.6 H Baso # (Auto) 0.1 Abs Immat Gran (auto) 0.67 H Absolute Neuts (auto) 14.1 H Absolute Nucleated RBC 0.000 Nucleated RBC % (auto) 0.0 POC Glucose 188 H Microbiology Microbiology Results: Microbiology 03/24/24 13:35 Gram Stain - Final Abscess Intra-abdominal Routine Culture - Final No growth after 2 days Anaerobic Culture - Final Actinomyces israelii Procedures Date of Service Date of Service: 03/30/24 Progress Note: A&P Assessment and plan (1) Abdominal fluid collection: Status: Acute Plan 64-year-old male patient with a recurrent intra-abdominal fluid collection status post IR drainage. WBC remains elevated however repeat CT reveals no residual collection. We will continue with IR drainage tubes. Continue antibiotics pending wound culture. Encouraged out of bed with ambulation. Time Spent With Patient Time: Total time managing care of this patient today ____ minutes. Quality Stroke Does the patient have a stroke diagnosis?: No VTE Prior VTE?: No VTE Risk Level:: Surgical - moderate VTE Device Contraindication: Treatment Not Indicated VTE Drug Contraindication: Treatment Not Indicated
[2024-03-30] MEDS: Insulin Lispro 100 UNIT/ML 3 ML VIAL SUBCUT ×3 (08:19→17:18)
[2024-03-30] MEDS: Atorvastatin Calcium 40 MG TABLET PO (08:30)
[2024-03-30] MEDS: carvediloL 6.25 MG TABLET PO ×2 (08:30→21:56)
[2024-03-30] MEDS: Bumetanide 1 MG TABLET 2 MG PO ×2 (08:31→21:56)
[2024-03-30] MEDS: Spironolactone 25 MG TABLET PO (08:32)
[2024-03-30] MEDS: Amiodarone HCL 200 MG TABLET PO (08:33)
[2024-03-30] MEDS: Metoprolol Tartrate 25 MG TABLET PO ×2 (08:34→21:56)
[2024-03-30] MEDS: 0.9 % Sodium Chloride Flush 3 ML SYRINGE IVFLUSH ×3 (08:40→21:56)
[2024-03-30] MEDS: metroNIDAZOLE/NS 500 MG/100 ML PIGGYBACK 100 MG IV ×3 (08:47→21:55)
[2024-03-30 11:35] LABS: Glucose, Whole Blood 188 mg/dL (60-115)
[2024-03-30] MEDS: oxyCODONE HCl Immed Release 5 MG TABLET 10 MG PO (14:09)
[2024-03-30 16:29] LABS: Glucose, Whole Blood 190 mg/dL (60-115)
[2024-03-30] MEDS: levoFLOXacin/D5W 750 MG/150 ML PIGGYBACK 150 MG IV (16:36)
[2024-03-30 20:33] LABS: Glucose, Whole Blood 143 mg/dL (60-115)
--- NOTE | 2024-03-30 21:59 | PC.NURSE ---
patient refused repositioning and back site skin assessment.
[2024-03-30] MEDS: Zolpidem Tartrate 5 MG TABLET PO (23:08)
[2024-03-31] VITALS (9 sets, daily range): BP systolic 111–130; BP diastolic 55–61; PULSE 62–67; RESP 16–18; TEMP 36–36.3; O2SAT 96–99
[2024-03-31] MEDS: Omeprazole 20 MG CAPSULE.DR PO ×2 (06:06→15:30)
[2024-03-31] MEDS: metroNIDAZOLE/NS 500 MG/100 ML PIGGYBACK 100 MG IV ×3 (06:06→22:18)
[2024-03-31] MEDS: oxyCODONE HCl Immed Release 5 MG TABLET 10 MG PO (06:10)
[2024-03-31 07:31] LABS: Glucose, Whole Blood 230 mg/dL (60-115)
[2024-03-31] MEDS: Insulin Lispro 100 UNIT/ML 3 ML VIAL SUBCUT (07:46)
[2024-03-31] MEDS: Spironolactone 25 MG TABLET PO (07:47)
[2024-03-31] MEDS: Bumetanide 1 MG TABLET 2 MG PO ×2 (07:47→22:18)
[2024-03-31] MEDS: 0.9 % Sodium Chloride Flush 3 ML SYRINGE IVFLUSH ×3 (07:48→22:21)
[2024-03-31] MEDS: Atorvastatin Calcium 40 MG TABLET PO (07:48)
[2024-03-31] MEDS: Amiodarone HCL 200 MG TABLET PO (07:48)
[2024-03-31] MEDS: Metoprolol Tartrate 25 MG TABLET PO ×2 (07:48→22:17)
[2024-03-31] MEDS: carvediloL 6.25 MG TABLET PO ×2 (07:48→22:17)
[2024-03-31 09:24] LABS: Basophils Absolute Auto 0.1 X10*3/uL (0.0-0.2); Basophils Percent Auto 0.2 % (0-2); Eosinophils Absolute Auto 0.7 X10*3/uL (0.0-0.4); Eosinophils Percent Auto 2.6 % (0-4); Hematocrit 25.2 % (42.0-52.0); Hemoglobin 8.6 g/dl (14.0-18.0); Imm Gran Pct Auto 2.8 % (0.0-0.4); Lymphocytes Absolute Auto 1.1 X10*3/uL (1.2-4.9); Lymphocytes Percent Auto 4.3 % (20-40); MANUAL DIFF FLAG SCAN; Mean Corpuscular HGB Conc 34.1 g/dl (31.0-36.0); Mean Corpuscular Volume 84.8 fL (80.0-98.0); Mean Platelet Volume 8.4 fL (9.4-12.4); Monocytes Absolute Auto 1.2 X10*3/uL (0.1-1.2); Monocytes Percent Auto 4.9 % (2-11); Neutrophils Absolute Auto 21.6 x10*3/uL (2.0-8.3); Neutrophils Percent Auto 85.2 % (45-73); Platelet Count 214 X10*3/uL (160-400); Red Blood Count 2.97 X10*6/uL (4.60-5.80); Red Cell Distribution Width 14.9 % (11.0-16.0); SCAN SMEAR FLAG 1; White Blood Count 25.3 X10*3/uL (4.8-10.8)
[2024-03-31 09:43] LABS: SLIDE REVIEW VERIFIED
--- NOTE | 2024-03-31 10:31 | MHC.CLN ---
F/U PT WITH INCREASED NUTRITION RISK R/T PRESSURE INJURY. VARIABLE PO INTAKE, 25-100%. DIET RX: 2200DM. ENSURE MAX BID AND GELATEIN TID WITH MEALS TO PROMOTE WOUND HEALING. ENSURE MAX PROVIDES 300KCALS, 60G PROTEIN; GELATEIN TID PROVIDES 480KCALS, 60G PROTEIN WITH 100% ACCEPTANCE MONITOR PO INTAKE AND ENCOURAGE SUPPLEMENTS.
[2024-03-31 11:33] LABS: Glucose, Whole Blood 163 mg/dL (60-115)
[2024-03-31] MEDS: ondansetron HCL 4 MG/2 ML VIAL IVPUSH ×2 (12:14→22:27)
--- NOTE | 2024-03-31 13:13 | MHC.CM.PN ---
Patient not medically cleared for dc at this time. CM will continue to follow.
--- NOTE | 2024-03-31 13:46 | PM.PNGS ---
Subjective Subjective Date of Service: 03/31/24 Interval history: C/o nausea and dry heaving again. Has not been able to tolerate much PO intake today. Refusing to get out of bed due to pain and nausea but also refusing narcotics. Refusing to use inventive spirometer despite being educated on its purpose. Said he will try . Physical Exam Vital Signs: Vital Signs: Last Vital Signs Temp 96.8 F 03/31/24 07:04 Pulse 67 03/31/24 07:48 Resp 18 03/31/24 07:04 BP 121/58 L 03/31/24 07:48 Pulse Ox 96 03/31/24 07:04 O2 Del Method Room Air 03/31/24 07:04 BMI result Body Mass Index 28.0 Const: General: comfortable, no acute distress and alert Orientation/consciousness: patient oriented x3 Resp: Effort & Inspection: normal respiratory effort, able to speak in complete sentences and no respiratory distress GI: Other: right flank dressing intact SHY drains with decreasing output, one with continued purulent output, one with more serous looking drainage but with sediment Inspection: No distended Palpation (GI): Soft to palpation, Tenderness to palpation present (GI) (mild right flank) and no guarding Skin: General skin exam: no rashes or lesions noted Neuro: General: patient oriented x3 Objective Data Active Medications Acetaminophen (Acetaminophen 325 Mg Tablet) 650 mg PO QID PRN PRN Reason: headache, temp > 101 Amiodarone HCl (Amiodarone Hcl 200 Mg Tablet) 200 mg PO DAILY [facility] Last Admin: 03/31/24 07:48 Dose: 200 mg Documented By: MAURA Atorvastatin Calcium (Atorvastatin Calcium 40 Mg Tablet) 40 mg PO DAILY [facility] Last Admin: 03/31/24 07:48 Dose: 40 mg Documented By: MAURA Bisacodyl (Bisacodyl 5 Mg Tablet.) 5 mg PO DAILY [facility] Last Admin: 03/31/24 07:47 Dose: Not Given Documented By: MAURA Non-Admin Reason: Patient Refused Bumetanide (Bumetanide 1 Mg Tablet) 2 mg PO BID [facility]; Protocol Last Admin: 03/31/24 07:47 Dose: 2 mg Documented By: MAURA Carvedilol (Carvedilol 6.25 Mg Tablet) 6.25 mg PO BID [facility]; Protocol Last Admin: 03/31/24 07:48 Dose: 6.25 mg Documented By: MAURA Glucose (Glucose Gel 15 Gm Gel..Gram.) 15 gm PO Q15M PRN; Protocol PRN Reason: per Hypoglycemia Standing Ord. Dextrose (D10) 250 mls @ 750 mls/hr IV Q15M PRN; Protocol PRN Reason: per Hypoglycemia Standing Ord. Metronidazole (Flagyl) 500 mg in 100 mls @ 100 mls/hr IV Q8H [facility] Last Infusion: 03/31/24 07:09 Dose: Infused Documented By: MAURA Levofloxacin (Levaquin) 750 mg in 150 mls @ 100 mls/hr IV Q24H [facility] Last Infusion: 03/30/24 17:50 Dose: Infused Documented By: ELICIA Insulin Human Lispro (Insulin Lispro 100 Unit/Ml 3 Ml Vial) 0 unit SUBCUT QIDACHS [facility]; Protocol Last Admin: 03/31/24 11:34 Dose: Not Given Documented By: MAURA Non-Admin Reason: Pt refused lunch Magnesium Hydroxide (Milk Of Magnesia 30 Ml Oral.Susp) 30 ml PO BID PRN PRN Reason: Constipation Metoprolol Tartrate (Metoprolol Tartrate 25 Mg Tablet) 25 mg PO BID [facility]; Protocol Last Admin: 03/31/24 07:48 Dose: 25 mg Documented By: MAURA Nitroglycerin (Nitroglycerin 0.4 Mg Tab.Subl) 0.4 mg SUBLINGUAL Q5M PRN PRN Reason: chest pain Omeprazole (Omeprazole 20 Mg Capsule.Dr) 20 mg PO BID@0630,1630 [facility] Last Admin: 03/31/24 06:06 Dose: 20 mg Documented By: PENNY Ondansetron HCl (Ondansetron Hcl 4 Mg/2 Ml Vial) 4 mg IVPUSH QID PRN PRN Reason: Nausea Last Admin: 03/31/24 12:14 Dose: 4 mg Documented By: MAURA Oxycodone HCl (Oxycodone Hcl Immed Release 5 Mg Tablet) 5 mg PO Q6H PRN PRN Reason: Pain, Moderate(Pain Scale 4-6) Oxycodone HCl (Oxycodone Hcl Immed Release 5 Mg Tablet) 10 mg PO Q4H PRN PRN Reason: Pain, Severe (Pain Scale 7-10) Last Admin: 03/31/24 06:10 Dose: 10 mg Documented By: PENNY Scopolamine (Scopolamine 1.5 Mg Patch.Td.3) 1.5 mg EAR-BEHIND Q72H [facility] Last Admin: 03/28/24 15:44 Dose: 1.5 mg Documented By: JERUSIA Senna (Senna [place] Extract Oral Syrup 15 Ml Syrup) 15 ml PO BEDTIME [facility] Last Admin: 03/30/24 21:55 Dose: Not Given Documented By: PEACE Non-Admin Reason: Patient Refused Sodium Biphosphate/Sodium Phosphate (Sodium Phosphate,[place]-Dibasic 133 Ml Enema) 133 ml [place] ONCE PRN PRN Reason: Constipation Sodium Chloride (0.9 % Sodium Chloride Flush 3 Ml Syringe) 3 ml IVFLUSH QSHIFT [facility] Last Admin: 03/31/24 07:48 Dose: 3 ml Documented By: MAURA Spironolactone (Spironolactone 25 Mg Tablet) 25 mg PO DAILY [facility]; Protocol Last Admin: 03/31/24 07:47 Dose: 25 mg Documented By: MAURA Zolpidem Tartrate (Zolpidem Tartrate 5 Mg Tablet) 5 mg PO BEDTIME PRN PRN Reason: Insomnia Last Admin: 03/30/24 23:08 Dose: 5 mg Documented By: PENNY Labs 03/31/24 09:06 03/27/24 05:26 Labs: Laboratory Results - last 24 hr 03/30/24 03/30/24 03/31/24 16:21 20:26 07:06 MCV MCH MCHC RDW Plt Count MPV Immature Gran % (Auto) Neut % (Auto) Lymph % (Auto) [place] % (Auto) Eos % (Auto) Baso % (Auto) Lymph # (Auto) [place] # (Auto) Eos # (Auto) Baso # (Auto) Abs Immat Gran (auto) Absolute Neuts (auto) Absolute Nucleated RBC Nucleated RBC % (auto) Smear Tech's Comments POC Glucose 190 H 143 H 230 H 03/31/24 03/31/24 09:06 11:18 MCV 84.8 MCH 29.0 MCHC 34.1 RDW 14.9 Plt Count 214 MPV 8.4 L Immature Gran % (Auto) 2.8 H Neut % (Auto) 85.2 H Lymph % (Auto) 4.3 L [place] % (Auto) 4.9 Eos % (Auto) 2.6 Baso % (Auto) 0.2 Lymph # (Auto) 1.1 L [place] # (Auto) 1.2 Eos # (Auto) 0.7 H Baso # (Auto) 0.1 Abs Immat Gran (auto) 0.70 H Absolute Neuts (auto) 21.6 H Absolute Nucleated RBC 0.000 Nucleated RBC % (auto) 0.0 Smear Tech's Comments VERIFIED POC Glucose 163 H Procedures Date of Service Date of Service: 03/31/24 Progress Note: A&P Assessment and plan (1) Abdominal fluid collection: Status: Acute Plan 64-year-old male patient with a recurrent intra-abdominal fluid collection status post IR drainage. WBC remains elevated however repeat CT reveals no residual collection. Concern for developing pneumonia, pleural effusion. Strongly encouraged OOB and incentive spirometer use, educated on importance of both. Continue with IR drainage tubes, IV abx. Will repeat CBC in am- if continues to trend up, will order CXR. SCope patch due to be replaced. Time Spent With Patient Time: Total time managing care of this patient today ____ minutes. Quality Stroke Does the patient have a stroke diagnosis?: No VTE Prior VTE?: No VTE Risk Level:: Surgical - moderate VTE Device Contraindication: Treatment Not Indicated VTE Drug Contraindication: Treatment Not Indicated
[2024-03-31] MEDS: Scopolamine 1.5 MG PATCH.TD.3 EAR-BEHIND (14:25)
[2024-03-31] MEDS: levoFLOXacin/D5W 750 MG/150 ML PIGGYBACK 150 MG IV (15:30)
[2024-03-31 16:36] LABS: Glucose, Whole Blood 161 mg/dL (60-115)
[2024-03-31 20:13] LABS: Glucose, Whole Blood 117 mg/dL (60-115)
[2024-03-31] MEDS: Zolpidem Tartrate 5 MG TABLET PO (23:12)
[2024-04-01 03:14] VITALS: BP 126/57; PULSE 62; RESP 18; TEMP 36.4; O2SAT 97
[2024-04-01] MEDS: Omeprazole 20 MG CAPSULE.DR PO ×2 (05:59→16:35)
[2024-04-01] MEDS: metroNIDAZOLE/NS 500 MG/100 ML PIGGYBACK 100 MG IV ×3 (06:10→23:20)
[2024-04-01 06:18] LABS: MANUAL DIFF FLAG NO
[2024-04-01 06:26] LABS: Basophils Absolute Auto 0.1 X10*3/uL (0.0-0.2); Basophils Percent Auto 0.2 % (0-2); Eosinophils Absolute Auto 0.5 X10*3/uL (0.0-0.4); Eosinophils Percent Auto 2.3 % (0-4); Hematocrit 24.5 % (42.0-52.0); Hemoglobin 8.3 g/dl (14.0-18.0); Imm Gran Abs Auto 0.42 X10*3/uL (0.00-0.03); Imm Gran Pct Auto 1.9 % (0.0-0.4); Lymphocytes Percent Auto 4.4 % (20-40); Mean Corpuscular HGB Conc 33.9 g/dl (31.0-36.0); Mean Corpuscular Hemoglobin 28.7 pg (27.0-33.0); Mean Corpuscular Volume 84.8 fL (80.0-98.0); Mean Platelet Volume 9.1 fL (9.4-12.4); Monocytes Absolute Auto 1.1 X10*3/uL (0.1-1.2); Monocytes Percent Auto 5.2 % (2-11); Neutrophils Absolute Auto 18.7 x10*3/uL (2.0-8.3); Platelet Count 198 X10*3/uL (160-400); Red Blood Count 2.89 X10*6/uL (4.60-5.80); Red Cell Distribution Width 14.8 % (11.0-16.0); White Blood Count 21.8 X10*3/uL (4.8-10.8)
[2024-04-01 08:00] VITALS: BP 105/51; PULSE 63; RESP 12; TEMP 36.2; O2SAT 98
[2024-04-01 08:04] LABS: Glucose, Whole Blood 123 mg/dL (60-115)
[2024-04-01 08:48] VITALS: BP 105/51; PULSE 63
[2024-04-01] MEDS: Spironolactone 25 MG TABLET PO (08:48)
[2024-04-01] MEDS: Bumetanide 1 MG TABLET 2 MG PO ×2 (08:48→20:08)
[2024-04-01] MEDS: carvediloL 6.25 MG TABLET PO ×2 (08:48→20:08)
[2024-04-01] MEDS: Metoprolol Tartrate 25 MG TABLET PO ×2 (08:48→20:08)
[2024-04-01] MEDS: Amiodarone HCL 200 MG TABLET PO (08:48)
[2024-04-01] MEDS: Atorvastatin Calcium 40 MG TABLET PO (08:48)
[2024-04-01] MEDS: 0.9 % Sodium Chloride Flush 3 ML SYRINGE IVFLUSH ×3 (08:49→23:20)
[2024-04-01 11:56] LABS: Glucose, Whole Blood 151 mg/dL (60-115)
[2024-04-01] MEDS: ondansetron HCL 4 MG/2 ML VIAL IVPUSH ×2 (14:21→20:08)
[2024-04-01 15:36] VITALS: BP 106/59; PULSE 65; RESP 18; TEMP 36.8; O2SAT 98
[2024-04-01 16:17] LABS: Glucose, Whole Blood 128 mg/dL (60-115)
[2024-04-01] MEDS: levoFLOXacin/D5W 750 MG/150 ML PIGGYBACK 100 MG IV (16:35)
[2024-04-01 19:19] VITALS: BP 119/59; PULSE 66; RESP 16; TEMP 36.5; O2SAT 98
[2024-04-01 20:25] LABS: Glucose, Whole Blood 145 mg/dL (60-115)
[2024-04-01] MEDS: Zolpidem Tartrate 5 MG TABLET PO (23:19)
[2024-04-02] VITALS (8 sets, daily range): BP systolic 116–127; BP diastolic 52–59; PULSE 63–67; RESP 16–18; TEMP 36.1–36.2; O2SAT 96–97
[2024-04-02] MEDS: Omeprazole 20 MG CAPSULE.DR PO ×2 (06:07→15:48)
[2024-04-02] MEDS: metroNIDAZOLE/NS 500 MG/100 ML PIGGYBACK 100 MG IV ×3 (06:07→23:22)
[2024-04-02 07:34] LABS: Glucose, Whole Blood 134 mg/dL (60-115)
[2024-04-02] MEDS: Metoprolol Tartrate 25 MG TABLET PO ×2 (07:51→20:34)
[2024-04-02] MEDS: Amiodarone HCL 200 MG TABLET PO (07:51)
[2024-04-02] MEDS: carvediloL 6.25 MG TABLET PO ×2 (07:51→20:34)
[2024-04-02] MEDS: Atorvastatin Calcium 40 MG TABLET PO (07:52)
[2024-04-02] MEDS: Bumetanide 1 MG TABLET 2 MG PO ×2 (07:52→20:33)
[2024-04-02] MEDS: Spironolactone 25 MG TABLET PO (07:52)
--- NOTE | 2024-04-02 08:28 | PM.PNGS ---
Subjective Subjective Date of Service: 04/02/24 Interval history: Patient feels improved this morning. Tolerated his diet yesterday without nausea or vomiting. Has not had dry heaves in 48 hours. Feels he is improved with the current antibiotics. Still has some abdominal pain mainly with the incision and drainage was performed. Physical Exam Vital Signs: Vital Signs: Last Vital Signs Temp 97 F 04/02/24 07:29 Pulse 65 04/02/24 07:51 Resp 18 04/02/24 07:29 BP 118/59 L 04/02/24 07:52 Pulse Ox 97 04/02/24 07:29 O2 Del Method Room Air 04/02/24 07:29 BMI result Body Mass Index 28.0 Const: General: comfortable Nutritional Appearance: well nourished Orientation/consciousness: patient oriented x3 Resp: Effort & Inspection: normal respiratory effort GI: Other: Abdomen soft and nondistended. Dressings changed to right flank wounds. SHY drain x2 with decreased output, mainly purulent. Wick advanced. No erythema noted in the surrounding skin. Clean dressings applied. Neuro: General: patient oriented x3 Objective Data Active Medications Acetaminophen (Acetaminophen 325 Mg Tablet) 650 mg PO QID PRN PRN Reason: headache, temp > 101 Amiodarone HCl (Amiodarone Hcl 200 Mg Tablet) 200 mg PO DAILY [facility] Last Admin: 04/02/24 07:51 Dose: 200 mg Documented By: COTEMA Atorvastatin Calcium (Atorvastatin Calcium 40 Mg Tablet) 40 mg PO DAILY [facility] Last Admin: 04/02/24 07:52 Dose: 40 mg Documented By: COTEMA Bisacodyl (Bisacodyl 5 Mg Tablet.) 5 mg PO DAILY [facility] Last Admin: 04/02/24 07:46 Dose: Not Given Documented By: COTEMA Non-Admin Reason: Patient Refused Bumetanide (Bumetanide 1 Mg Tablet) 2 mg PO BID [facility]; Protocol Last Admin: 04/02/24 07:52 Dose: 2 mg Documented By: COTEMA Carvedilol (Carvedilol 6.25 Mg Tablet) 6.25 mg PO BID [facility]; Protocol Last Admin: 04/02/24 07:51 Dose: 6.25 mg Documented By: COTEMA Glucose (Glucose Gel 15 Gm Gel..Gram.) 15 gm PO Q15M PRN; Protocol PRN Reason: per Hypoglycemia Standing Ord. Dextrose (D10) 250 mls @ 750 mls/hr IV Q15M PRN; Protocol PRN Reason: per Hypoglycemia Standing Ord. Metronidazole (Flagyl) 500 mg in 100 mls @ 100 mls/hr IV Q8H [facility] Last Infusion: 04/02/24 07:11 Dose: Infused Documented By: COTEMA Levofloxacin (Levaquin) 750 mg in 150 mls @ 100 mls/hr IV Q24H [facility] Last Infusion: 04/01/24 18:13 Dose: Infused Documented By: MARK Insulin Human Lispro (Insulin Lispro 100 Unit/Ml 3 Ml Vial) 0 unit SUBCUT QIDACHS [facility]; Protocol Last Admin: 04/02/24 07:37 Dose: Not Given Documented By: MARK Non-Admin Reason: No Insulin Coverage Magnesium Hydroxide (Milk Of Magnesia 30 Ml Oral.Susp) 30 ml PO BID PRN PRN Reason: Constipation Metoprolol Tartrate (Metoprolol Tartrate 25 Mg Tablet) 25 mg PO BID [facility]; Protocol Last Admin: 04/02/24 07:51 Dose: 25 mg Documented By: MARK Nitroglycerin (Nitroglycerin 0.4 Mg Tab.Subl) 0.4 mg SUBLINGUAL Q5M PRN PRN Reason: chest pain Omeprazole (Omeprazole 20 Mg Capsule.Dr) 20 mg PO BID@0630,1630 [facility] Last Admin: 04/02/24 06:07 Dose: 20 mg Documented By: PEACE Ondansetron HCl (Ondansetron Hcl 4 Mg/2 Ml Vial) 4 mg IVPUSH QID PRN PRN Reason: Nausea Last Admin: 04/01/24 20:08 Dose: 4 mg Documented By: PEACE Oxycodone HCl (Oxycodone Hcl Immed Release 5 Mg Tablet) 5 mg PO Q6H PRN PRN Reason: Pain, Moderate(Pain Scale 4-6) Oxycodone HCl (Oxycodone Hcl Immed Release 5 Mg Tablet) 10 mg PO Q4H PRN PRN Reason: Pain, Severe (Pain Scale 7-10) Last Admin: 03/31/24 06:10 Dose: 10 mg Documented By: PENNY Scopolamine (Scopolamine 1.5 Mg Patch.Td.3) 1.5 mg EAR-BEHIND Q72H [facility] Last Admin: 03/31/24 14:25 Dose: 1.5 mg Documented By: MAURA Senna (Senna [place] Extract Oral Syrup 15 Ml Syrup) 15 ml PO BEDTIME [facility] Last Admin: 04/01/24 20:09 Dose: Not Given Documented By: PEACE Non-Admin Reason: Patient Refused Sodium Biphosphate/Sodium Phosphate (Sodium Phosphate,[place]-Dibasic 133 Ml Enema) 133 ml [place] ONCE PRN PRN Reason: Constipation Sodium Chloride (0.9 % Sodium Chloride Flush 3 Ml Syringe) 3 ml IVFLUSH QSHIFT [facility] Last Admin: 04/02/24 07:11 Dose: Not Given Documented By: MARK Non-Admin Reason: Previously Administered Spironolactone (Spironolactone 25 Mg Tablet) 25 mg PO DAILY [facility]; Protocol Last Admin: 04/02/24 07:52 Dose: 25 mg Documented By: MARK Zolpidem Tartrate (Zolpidem Tartrate 5 Mg Tablet) 5 mg PO BEDTIME PRN PRN Reason: Insomnia Last Admin: 04/01/24 23:19 Dose: 5 mg Documented By: PEACE Labs 04/01/24 05:51 03/27/24 05:26 Labs: Laboratory Results - last 24 hr 04/01/24 04/01/24 04/01/24 11:47 16:14 20:21 POC Glucose 151 H 128 H 145 H 04/02/24 07:27 POC Glucose 134 H Procedures Date of Service Date of Service: 04/02/24 Progress Note: A&P Assessment and plan (1) Abdominal fluid collection: Status: Acute Plan Patient readmitted for recurrent fluid collection in the abdominal wall and retroperitoneum. Status post IR drainage and incision and drainage. Overall he is improved with decreased nausea/vomiting and improved pain. Encouraged out of bed ambulation. Await ID recommendations. Recheck CBC in a.m.. Time Spent With Patient Time: Total time managing care of this patient today ____ minutes. Quality Stroke Does the patient have a stroke diagnosis?: No VTE Prior VTE?: No VTE Risk Level:: Surgical - moderate VTE Device Contraindication: Treatment Not Indicated VTE Drug Contraindication: Treatment Not Indicated
[2024-04-02 11:18] LABS: Glucose, Whole Blood 157 mg/dL (60-115)
[2024-04-02] MEDS: HYDROmorphone HCl 0.5 MG/0.5 ML SYRINGE IVPUSH (13:19)
[2024-04-02] MEDS: levoFLOXacin/D5W 750 MG/150 ML PIGGYBACK 100 MG IV (15:45)
[2024-04-02] MEDS: 0.9 % Sodium Chloride Flush 3 ML SYRINGE IVFLUSH ×2 (15:47→20:38)
[2024-04-02 16:17] LABS: Glucose, Whole Blood 176 mg/dL (60-115)
[2024-04-02] MEDS: ondansetron HCL 4 MG/2 ML VIAL IVPUSH (18:24)
[2024-04-02 20:10] LABS: Glucose, Whole Blood 152 mg/dL (60-115)
[2024-04-02] MEDS: Zolpidem Tartrate 5 MG TABLET PO (23:22)
[2024-04-03] VITALS (10 sets, daily range): BP systolic 107–143; BP diastolic 53–65; PULSE 65–77; RESP 12–18; TEMP 36.1–36.8; O2SAT 96–98
[2024-04-03 05:53] LABS: Hematocrit 25.7 % (42.0-52.0); Hemoglobin 8.5 g/dl (14.0-18.0); Mean Corpuscular HGB Conc 33.1 g/dl (31.0-36.0); Mean Corpuscular Hemoglobin 28.4 pg (27.0-33.0); Mean Platelet Volume 9.2 fL (9.4-12.4); Platelet Count 168 X10*3/uL (160-400); Red Blood Count 2.99 X10*6/uL (4.60-5.80); Red Cell Distribution Width 15.4 % (11.0-16.0); White Blood Count 16.6 X10*3/uL (4.8-10.8)
[2024-04-03] MEDS: Omeprazole 20 MG CAPSULE.DR PO ×2 (06:17→15:24)
[2024-04-03] MEDS: metroNIDAZOLE/NS 500 MG/100 ML PIGGYBACK 100 MG IV ×3 (06:30→23:07)
[2024-04-03 07:42] LABS: Glucose, Whole Blood 139 mg/dL (60-115)
[2024-04-03] MEDS: carvediloL 6.25 MG TABLET PO ×2 (07:52→19:52)
[2024-04-03] MEDS: Atorvastatin Calcium 40 MG TABLET PO (07:53)
[2024-04-03] MEDS: Amiodarone HCL 200 MG TABLET PO (07:53)
[2024-04-03] MEDS: Bumetanide 1 MG TABLET 2 MG PO ×2 (07:53→19:51)
[2024-04-03] MEDS: Spironolactone 25 MG TABLET PO (07:53)
[2024-04-03] MEDS: Metoprolol Tartrate 25 MG TABLET PO ×2 (07:58→19:50)
--- NOTE | 2024-04-03 11:06 | MHC.CM.PN ---
Per MD rounds patient is not medically cleared for dc at this time. CM will continue to follow.
--- NOTE | 2024-04-03 11:37 | MHC.CLN ---
F/U PT WITH INCREASED NUTRITION RISK R/T PRESSURE INJURY. CONTINUES WITH VARIABLE PO. MOST RECENT 4 MEALS 100%. DIET RX: 2200DM. ENSURE MAX BID AND GELATEIN TID WITH MEALS TO PROMOTE WOUND HEALING. ENSURE MAX PROVIDES 300KCALS, 60G PROTEIN; GELATEIN TID PROVIDES 480KCALS, 60G PROTEIN WITH 100% ACCEPTANCE MONITOR PO INTAKE AND ENCOURAGE SUPPLEMENTS.
[2024-04-03 11:41] LABS: Glucose, Whole Blood 149 mg/dL (60-115)
[2024-04-03] MEDS: HYDROmorphone HCl 0.5 MG/0.5 ML SYRINGE IVPUSH (11:48)
--- NOTE | 2024-04-03 14:03 | PM.PNGS ---
Subjective Subjective Date of Service: 04/03/24 Interval history: C/o worsening nausea and dry heaves last night and today. Continues to refuse to get out of bed. Physical Exam Vital Signs: Vital Signs: Last Vital Signs Temp 98.3 F 04/03/24 07:31 Pulse 77 04/03/24 07:58 Resp 12 04/03/24 07:31 BP 140/65 H 04/03/24 07:58 Pulse Ox 97 04/03/24 07:31 O2 Del Method Room Air 04/03/24 07:31 BMI result Body Mass Index 28.0 Const: General: comfortable, no acute distress and alert Resp: Effort & Inspection: normal respiratory effort GI: Other: right flank I&D site, packing advanced, some purulent drainage; no overlying skin changes, edema of flank persists Bulbs with more serous appearing drainage Palpation (GI): Soft to palpation, Tenderness to palpation present (GI) (I&D site, drain site ) and no guarding Objective Data Active Medications Acetaminophen (Acetaminophen 325 Mg Tablet) 650 mg PO QID PRN PRN Reason: headache, temp > 101 Amiodarone HCl (Amiodarone Hcl 200 Mg Tablet) 200 mg PO DAILY [facility] Last Admin: 04/03/24 07:53 Dose: 200 mg Documented By: MAURA Atorvastatin Calcium (Atorvastatin Calcium 40 Mg Tablet) 40 mg PO DAILY [facility] Last Admin: 04/03/24 07:53 Dose: 40 mg Documented By: MAURA Bisacodyl (Bisacodyl 5 Mg Tablet.) 5 mg PO DAILY [facility] Last Admin: 04/03/24 07:51 Dose: Not Given Documented By: MAURA Non-Admin Reason: Patient Refused Bumetanide (Bumetanide 1 Mg Tablet) 2 mg PO BID [facility]; Protocol Last Admin: 04/03/24 07:53 Dose: 2 mg Documented By: MAURA Carvedilol (Carvedilol 6.25 Mg Tablet) 6.25 mg PO BID [facility]; Protocol Last Admin: 04/03/24 07:52 Dose: 6.25 mg Documented By: MAURA Glucose (Glucose Gel 15 Gm Gel..Gram.) 15 gm PO Q15M PRN; Protocol PRN Reason: per Hypoglycemia Standing Ord. Hydromorphone HCl (Hydromorphone Hcl 2 Mg Tablet) 2 mg PO Q4H PRN PRN Reason: Pain, Moderate(Pain Scale 4-6) Hydromorphone HCl (Hydromorphone Hcl 0.5 Mg/0.5 Ml Syringe) 0.5 mg IVPUSH Q4H PRN; Protocol PRN Reason: Pain, Severe (Pain Scale 7-10) Last Admin: 04/03/24 11:48 Dose: 0.5 mg Documented By: MAURA Dextrose (D10) 250 mls @ 750 mls/hr IV Q15M PRN; Protocol PRN Reason: per Hypoglycemia Standing Ord. Metronidazole (Flagyl) 500 mg in 100 mls @ 100 mls/hr IV Q8H [facility] Last Infusion: 04/03/24 08:27 Dose: Infused Documented By: MAURA Levofloxacin (Levaquin) 750 mg in 150 mls @ 100 mls/hr IV Q24H [facility] Last Infusion: 04/02/24 17:57 Dose: Infused Documented By: MARK Insulin Human Lispro (Insulin Lispro 100 Unit/Ml 3 Ml Vial) 0 unit SUBCUT QIDACHS [facility]; Protocol Last Admin: 04/03/24 11:52 Dose: Not Given Documented By: MAURA Non-Admin Reason: No Insulin Coverage Magnesium Hydroxide (Milk Of Magnesia 30 Ml Oral.Susp) 30 ml PO BID PRN PRN Reason: Constipation Metoprolol Tartrate (Metoprolol Tartrate 25 Mg Tablet) 25 mg PO BID [facility]; Protocol Last Admin: 04/03/24 07:58 Dose: 25 mg Documented By: MAURA Nitroglycerin (Nitroglycerin 0.4 Mg Tab.Subl) 0.4 mg SUBLINGUAL Q5M PRN PRN Reason: chest pain Omeprazole (Omeprazole 20 Mg Capsule.Dr) 20 mg PO BID@0630,1630 [facility] Last Admin: 04/03/24 06:17 Dose: 20 mg Documented By: ANAY Ondansetron HCl (Ondansetron Hcl 4 Mg/2 Ml Vial) 4 mg IVPUSH QID PRN PRN Reason: Nausea Last Admin: 04/02/24 18:24 Dose: 4 mg Documented By: VASHTI Scopolamine (Scopolamine 1.5 Mg Patch.Td.3) 1.5 mg EAR-BEHIND Q72H [facility] Last Admin: 03/31/24 14:25 Dose: 1.5 mg Documented By: MAURA Senna (Senna [place] Extract Oral Syrup 15 Ml Syrup) 15 ml PO BEDTIME [facility] Last Admin: 04/02/24 20:33 Dose: 15 ml Documented By: ANAY Sodium Biphosphate/Sodium Phosphate (Sodium Phosphate,[place]-Dibasic 133 Ml Enema) 133 ml [place] ONCE PRN PRN Reason: Constipation Sodium Chloride (0.9 % Sodium Chloride Flush 3 Ml Syringe) 3 ml IVFLUSH QSHIFT [facility] Last Admin: 04/03/24 07:08 Dose: Not Given Documented By: MAURA Non-Admin Reason: IV Running Spironolactone (Spironolactone 25 Mg Tablet) 25 mg PO DAILY [facility]; Protocol Last Admin: 04/03/24 07:53 Dose: 25 mg Documented By: MAURA Zolpidem Tartrate (Zolpidem Tartrate 5 Mg Tablet) 5 mg PO BEDTIME PRN PRN Reason: Insomnia Last Admin: 04/02/24 23:22 Dose: 5 mg Documented By: ANAY Labs 04/03/24 05:36 03/27/24 05:26 Labs: Laboratory Results - last 24 hr 04/02/24 04/02/24 04/03/24 16:06 19:34 05:36 MCV 86.0 MCH 28.4 MCHC 33.1 RDW 15.4 Plt Count 168 MPV 9.2 L Absolute Nucleated RBC 0.000 Nucleated RBC % (auto) 0.0 POC Glucose 176 H 152 H 04/03/24 04/03/24 07:35 11:34 MCV MCH MCHC RDW Plt Count MPV Absolute Nucleated RBC Nucleated RBC % (auto) POC Glucose 139 H 149 H Procedures Date of Service Date of Service: 04/03/24 Progress Note: A&P Assessment and plan (1) Abdominal fluid collection: Status: Acute Plan Patient readmitted for recurrent fluid collection in the abdominal wall and retroperitoneum. Status post IR drainage and incision and drainage. Continues to slowly improve drains more serous appearing. CBC improved today. Nausea/dry heaving returned but scopolamine patch due to be changed. Encouraged out of bed and ambulation. Await ID recommendations. Recheck CBC in a.m. Time Spent With Patient Time: Total time managing care of this patient today ____ minutes. Quality Stroke Does the patient have a stroke diagnosis?: No VTE Prior VTE?: No VTE Risk Level:: Surgical - moderate VTE Device Contraindication: Treatment Not Indicated VTE Drug Contraindication: Treatment Not Indicated
[2024-04-03] MEDS: Scopolamine 1.5 MG PATCH.TD.3 EAR-BEHIND (14:06)
[2024-04-03] MEDS: ondansetron HCL 4 MG/2 ML VIAL IVPUSH ×2 (14:06→19:49)
[2024-04-03] MEDS: levoFLOXacin/D5W 750 MG/150 ML PIGGYBACK 100 MG IV (15:24)
[2024-04-03 16:44] LABS: Glucose, Whole Blood 134 mg/dL (60-115)
[2024-04-03] MEDS: 0.9 % Sodium Chloride Flush 3 ML SYRINGE IVFLUSH (19:55)
[2024-04-03 20:03] LABS: Glucose, Whole Blood 112 mg/dL (60-115)
[2024-04-03] MEDS: Zolpidem Tartrate 5 MG TABLET PO (23:06)
[2024-04-04] MEDS: HYDROmorphone HCl 0.5 MG/0.5 ML SYRINGE IVPUSH ×2 (02:42→10:55)
[2024-04-04 03:45] VITALS: BP 116/57; PULSE 65; RESP 16; TEMP 36.1; O2SAT 95
[2024-04-04] MEDS: Omeprazole 20 MG CAPSULE.DR PO ×2 (05:49→15:24)
[2024-04-04] MEDS: metroNIDAZOLE/NS 500 MG/100 ML PIGGYBACK 100 MG IV ×3 (06:04→22:43)
[2024-04-04] MEDS: ondansetron HCL 4 MG/2 ML VIAL IVPUSH ×2 (06:09→12:37)
[2024-04-04 07:47] LABS: Glucose, Whole Blood 122 mg/dL (60-115)
[2024-04-04 07:58] VITALS: BP 114/55; PULSE 68; TEMP 36.3; O2SAT 99
--- NOTE | 2024-04-04 08:00 | P.PNGS_ITS ---
Subjective Subjective Date of Service: 04/04/24 Interval history: Reports nausea, dry heaving last night. Slightly better this morning. Having pain in the right flank. Physical Exam 2 Vital Signs: Vital Signs: Last Vital Signs Temp 97.3 F 04/04/24 07:58 Pulse 68 04/04/24 07:58 Resp 16 04/04/24 03:45 BP 114/55 L 04/04/24 07:58 Pulse Ox 99 04/04/24 07:58 O2 Del Method Room Air 04/04/24 07:58 BMI result Body Mass Index 28.0 Const: General: no acute distress Nutritional Appearance: well nourished Orientation/consciousness: patient oriented x3 Limitations: no limitations Resp: Effort & Inspection: normal respiratory effort GI: Other: Soft and nondistended, dressings changed to right flank. Packing completely removed. SHY is intact with cloudy and serous fluid noted within tube. Neuro: General: patient oriented x3 Objective Data Active Medications Acetaminophen (Acetaminophen 325 Mg Tablet) 650 mg PO QID PRN PRN Reason: headache, temp > 101 Amiodarone HCl (Amiodarone Hcl 200 Mg Tablet) 200 mg PO DAILY [facility] Last Admin: 04/03/24 07:53 Dose: 200 mg Documented By: MAURA Atorvastatin Calcium (Atorvastatin Calcium 40 Mg Tablet) 40 mg PO DAILY [facility] Last Admin: 04/03/24 07:53 Dose: 40 mg Documented By: MAURA Bisacodyl (Bisacodyl 5 Mg Tablet.) 5 mg PO DAILY [facility] Last Admin: 04/03/24 07:51 Dose: Not Given Documented By: MAURA Non-Admin Reason: Patient Refused Bumetanide (Bumetanide 1 Mg Tablet) 2 mg PO BID [facility]; Protocol Last Admin: 04/03/24 19:51 Dose: 2 mg Documented By: ANAY Carvedilol (Carvedilol 6.25 Mg Tablet) 6.25 mg PO BID [facility]; Protocol Last Admin: 04/03/24 19:52 Dose: 6.25 mg Documented By: ANAY Glucose (Glucose Gel 15 Gm Gel..Gram.) 15 gm PO Q15M PRN; Protocol PRN Reason: per Hypoglycemia Standing Ord. Hydromorphone HCl (Hydromorphone Hcl 2 Mg Tablet) 2 mg PO Q4H PRN PRN Reason: Pain, Moderate(Pain Scale 4-6) Hydromorphone HCl (Hydromorphone Hcl 0.5 Mg/0.5 Ml Syringe) 0.5 mg IVPUSH Q4H PRN; Protocol PRN Reason: Pain, Severe (Pain Scale 7-10) Last Admin: 04/04/24 02:42 Dose: 0.5 mg Documented By: ANAY Dextrose (D10) 250 mls @ 750 mls/hr IV Q15M PRN; Protocol PRN Reason: per Hypoglycemia Standing Ord. Metronidazole (Flagyl) 500 mg in 100 mls @ 100 mls/hr IV Q8H [facility] Last Infusion: 04/04/24 07:06 Dose: Infused Documented By: MAURA Levofloxacin (Levaquin) 750 mg in 150 mls @ 100 mls/hr IV Q24H [facility] Last Infusion: 04/03/24 17:12 Dose: Infused Documented By: MAURA Insulin Human Lispro (Insulin Lispro 100 Unit/Ml 3 Ml Vial) 0 unit SUBCUT QIDACHS [facility]; Protocol Last Admin: 04/04/24 07:50 Dose: Not Given Documented By: MAURA Non-Admin Reason: No Insulin Coverage Magnesium Hydroxide (Milk Of Magnesia 30 Ml Oral.Susp) 30 ml PO BID PRN PRN Reason: Constipation Metoprolol Tartrate (Metoprolol Tartrate 25 Mg Tablet) 25 mg PO BID [facility]; Protocol Last Admin: 04/03/24 19:50 Dose: 25 mg Documented By: ANAY Nitroglycerin (Nitroglycerin 0.4 Mg Tab.Subl) 0.4 mg SUBLINGUAL Q5M PRN PRN Reason: chest pain Omeprazole (Omeprazole 20 Mg Capsule.Dr) 20 mg PO BID@0630,1630 [facility] Last Admin: 04/04/24 05:49 Dose: 20 mg Documented By: ANAY Ondansetron HCl (Ondansetron Hcl 4 Mg/2 Ml Vial) 4 mg IVPUSH QID PRN PRN Reason: Nausea Last Admin: 04/04/24 06:09 Dose: 4 mg Documented By: ANAY Scopolamine (Scopolamine 1.5 Mg Patch.Td.3) 1.5 mg EAR-BEHIND Q72H [facility] Last Admin: 04/03/24 14:06 Dose: 1.5 mg Documented By: MAURA Senna (Senna [place] Extract Oral Syrup 15 Ml Syrup) 15 ml PO BEDTIME [facility] Last Admin: 04/03/24 19:55 Dose: Not Given Documented By: ANAY Non-Admin Reason: Patient Refused Sodium Biphosphate/Sodium Phosphate (Sodium Phosphate,[place]-Dibasic 133 Ml Enema) 133 ml [place] ONCE PRN PRN Reason: Constipation Sodium Chloride (0.9 % Sodium Chloride Flush 3 Ml Syringe) 3 ml IVFLUSH QSHIFT [facility] Last Admin: 04/03/24 19:55 Dose: 3 ml Documented By: ANAY Spironolactone (Spironolactone 25 Mg Tablet) 25 mg PO DAILY [facility]; Protocol Last Admin: 04/03/24 07:53 Dose: 25 mg Documented By: MAURA Zolpidem Tartrate (Zolpidem Tartrate 5 Mg Tablet) 5 mg PO BEDTIME PRN PRN Reason: Insomnia Last Admin: 04/03/24 23:06 Dose: 5 mg Documented By: ANAY Labs 04/03/24 05:36 03/27/24 05:26 Labs: Laboratory Results - last 24 hr 04/03/24 04/03/24 04/03/24 11:34 16:22 19:59 POC Glucose 149 H 134 H 112 04/04/24 07:42 POC Glucose 122 H Procedures Date of Service Date of Service: 04/04/24 Progress Note: A&P Assessment and plan (1) Abdominal fluid collection: Status: Acute Plan Hospital day 12 for retroperitoneal and abdominal wall abscess drainage, incision and drainage. Patient continues to report dry heaves and nausea. Wounds appear much improved with no erythema. Remaining packing removed today. SHY with mainly serous fluid noted in tube. We will repeat CT abdomen and pelvis to follow up on abdominal wall abscess. Possible drain removal if collections remained decompressed. Awaiting Infectious Disease consultation (requested Wednesday). Time Spent With Patient Time: Total time managing care of this patient today ____ minutes. Quality Stroke Does the patient have a stroke diagnosis?: No VTE Prior VTE?: No VTE Risk Level:: Surgical - moderate VTE Device Contraindication: Treatment Not Indicated VTE Drug Contraindication: Treatment Not Indicated
[2024-04-04 08:54] VITALS: BP 114/55; PULSE 68
[2024-04-04] MEDS: Metoprolol Tartrate 25 MG TABLET PO ×2 (08:54→21:26)
[2024-04-04 08:55] VITALS: BP 114/55; PULSE 68
[2024-04-04] MEDS: Bumetanide 1 MG TABLET 2 MG PO ×2 (08:55→21:26)
[2024-04-04] MEDS: Spironolactone 25 MG TABLET PO (08:55)
[2024-04-04] MEDS: Atorvastatin Calcium 40 MG TABLET PO (08:55)
[2024-04-04] MEDS: 0.9 % Sodium Chloride Flush 3 ML SYRINGE IVFLUSH ×2 (08:55→22:43)
[2024-04-04] MEDS: Amiodarone HCL 200 MG TABLET PO (08:55)
[2024-04-04] MEDS: carvediloL 6.25 MG TABLET PO ×2 (08:55→21:26)
[2024-04-04 11:06] LABS: Glucose, Whole Blood 110 mg/dL (60-115)
--- NOTE | 2024-04-04 12:30 | HO.WOUND ---
Wound Consult: Initial / Follow up 64yr old?Male admitted to [facility] on 03/23/24 - See progress notes and H&P for detailed history.? Wound consult placed for Skin tear to FA - discussed with direct care nurse. After discussion no need to assess skin tear topical measure discussed and orders placed. Sacrum Etiology: ?Left Sacrum Stage 2 Pressure Injury ?Present on Admission Goals of Treatment: ? Barrier cream or Foam dressing to protetc from friction moisture and off load pressure with pillows and or wedges. - Not assessed today. Recommendations: 1. Turn and Reposition every 2 hours and as needed for patient comfort.? Use pillows or wedges to support off loading positions. 2. Off Load all bony prominences with use of pillows and heel boots if needed.? Apply Preventative foams where needed. ? 3. Monitor for incontinence and moisture control, use barrier creams when needed for prevention and treatment. 4. Provide adequate and supplemental nutrition.? 5. Order or Continue low air loss mattress. 6. When applicable maintain blood glucose levels per Providers order. 7. Sacrum - Routine Cleansing - Apply Sacral Foam dressing peel back and assess Q shift, change every 3 days. If patient refused foam dressing consider barrier cream twice daily and PRN. 8. Forearm Skin Tear - Cleanse with normal saline, pat dry. ?Apply double layer Xeroform secure with Abd pads, gauze wrap and tape. ?Do not apply tape to patients skin.? Avoid Adhesive application to skin - when necessary, apply skin prep prior. Change Daily. ? Re-consult wound care Nurse for wound deterioration or wound changes.
[2024-04-04 15:22] VITALS: BP 112/56; PULSE 67; RESP 18; TEMP 36.1; O2SAT 95
[2024-04-04] MEDS: levoFLOXacin/D5W 750 MG/150 ML PIGGYBACK 100 MG IV (15:24)
[2024-04-04] MEDS: Metoclopramide HCl 10 MG/2 ML VIAL IVPUSH (16:20)
[2024-04-04 16:21] LABS: Glucose, Whole Blood 98 mg/dL (60-115)
[2024-04-04 19:55] VITALS: BP 156/63; PULSE 77; RESP 20; TEMP 36.6; O2SAT 96
[2024-04-04 20:19] LABS: Glucose, Whole Blood 87 mg/dL (60-115)
[2024-04-04] MEDS: Zolpidem Tartrate 5 MG TABLET PO (22:43)
[2024-04-05] VITALS (11 sets, daily range): BP systolic 98–140; BP diastolic 53–66; PULSE 66–79; RESP 16–22; TEMP 36.1–36.9; O2SAT 92–98
[2024-04-05] MEDS: HYDROmorphone HCl 0.5 MG/0.5 ML SYRINGE IVPUSH ×4 (02:25→19:32)
[2024-04-05] MEDS: Omeprazole 20 MG CAPSULE.DR PO ×2 (05:49→15:42)
[2024-04-05] MEDS: metroNIDAZOLE/NS 500 MG/100 ML PIGGYBACK 100 MG IV ×3 (05:50→23:00)
[2024-04-05] MEDS: Metoclopramide HCl 10 MG/2 ML VIAL IVPUSH ×2 (05:56→16:37)
[2024-04-05 07:22] LABS: Glucose, Whole Blood 98 mg/dL (60-115)
[2024-04-05] MEDS: Bumetanide 1 MG TABLET 2 MG PO (09:18)
[2024-04-05] MEDS: Metoprolol Tartrate 25 MG TABLET PO ×2 (09:19→21:19)
[2024-04-05] MEDS: Spironolactone 25 MG TABLET PO (09:19)
[2024-04-05] MEDS: Atorvastatin Calcium 40 MG TABLET PO (09:20)
[2024-04-05] MEDS: carvediloL 6.25 MG TABLET PO ×2 (09:20→21:18)
[2024-04-05] MEDS: Amiodarone HCL 200 MG TABLET PO (09:20)
[2024-04-05] MEDS: 0.9 % Sodium Chloride Flush 3 ML SYRINGE IVFLUSH ×3 (09:21→22:44)
--- NOTE | 2024-04-05 11:01 | MHC.CLN ---
F/U PT WITH INCREASED NUTRITION RISK R/T PRESSURE INJURY. CONTINUES WITH VARIABLE PO. POOR PO NOTED 04/04; PATIENT WITH REPORTED NAUSEA. DIET RX: 2200DM. ENSURE MAX BID AND GELATEIN TID WITH MEALS TO PROMOTE WOUND HEALING. ENSURE MAX PROVIDES 300KCALS, 60G PROTEIN; GELATEIN TID PROVIDES 480KCALS, 60G PROTEIN WITH 100% ACCEPTANCE CONTINUE CURRENT DIET AND SUPPLEMENTS. MONITOR PO INTAKE AND ENCOURAGE SUPPLEMENTS ABLE.
[2024-04-05 11:15] LABS: Glucose, Whole Blood 89 mg/dL (60-115)
--- NOTE | 2024-04-05 11:57 | MHC.CM.PN ---
EMR REVIEWED. PATIENT NOT MEDICALLY CLEARED FOR DC AT THIS TIME. CM WILL CONTINUE TO FOLLOW.
[2024-04-05] MEDS: ondansetron HCL 4 MG/2 ML VIAL IVPUSH (12:24)
--- NOTE | 2024-04-05 14:11 | PM.PNGS ---
Subjective Subjective Date of Service: 04/05/24 Interval history: Nausea and dry heaving improved. Now has cough. Physical Exam Vital Signs: Vital Signs: Last Vital Signs Temp 98.2 F 04/05/24 07:06 Pulse 72 04/05/24 07:06 Resp 16 04/05/24 07:06 BP 130/60 04/05/24 09:20 Pulse Ox 98 04/05/24 07:06 O2 Del Method Room Air 04/05/24 07:06 BMI result Body Mass Index 28.0 Const: General: comfortable, no acute distress and alert Orientation/consciousness: patient oriented x3 Resp: Effort & Inspection: normal respiratory effort, Actively coughing and no respiratory distress GI: Other: right flank with I&D site with scant seropurulent appearing drainage drains with scant serous output no overlying skin changes, no fluctuance Inspection: No distended Palpation (GI): Soft to palpation Skin: General skin exam: no rashes or lesions noted Neuro: General: patient oriented x3 Objective Data Active Medications Acetaminophen (Acetaminophen 325 Mg Tablet) 650 mg PO QID PRN PRN Reason: headache, temp > 101 Amiodarone HCl (Amiodarone Hcl 200 Mg Tablet) 200 mg PO DAILY [facility] Last Admin: 04/05/24 09:20 Dose: 200 mg Documented By: VASHTI Atorvastatin Calcium (Atorvastatin Calcium 40 Mg Tablet) 40 mg PO DAILY [facility] Last Admin: 04/05/24 09:20 Dose: 40 mg Documented By: VASHTI Bisacodyl (Bisacodyl 5 Mg Tablet.) 5 mg PO DAILY [facility] Last Admin: 04/05/24 09:20 Dose: Not Given Documented By: VASHTI Non-Admin Reason: Patient Refused Bumetanide (Bumetanide 1 Mg Tablet) 2 mg PO BID [facility]; Protocol Last Admin: 04/05/24 09:18 Dose: 2 mg Documented By: VASHTI Carvedilol (Carvedilol 6.25 Mg Tablet) 6.25 mg PO BID [facility]; Protocol Last Admin: 04/05/24 09:20 Dose: 6.25 mg Documented By: VASHTI Glucose (Glucose Gel 15 Gm Gel..Gram.) 15 gm PO Q15M PRN; Protocol PRN Reason: per Hypoglycemia Standing Ord. Hydromorphone HCl (Hydromorphone Hcl 2 Mg Tablet) 2 mg PO Q4H PRN PRN Reason: Pain, Moderate(Pain Scale 4-6) Hydromorphone HCl (Hydromorphone Hcl 0.5 Mg/0.5 Ml Syringe) 0.5 mg IVPUSH Q4H PRN; Protocol PRN Reason: Pain, Severe (Pain Scale 7-10) Last Admin: 04/05/24 10:51 Dose: 0.5 mg Documented By: VASHTI Dextrose (D10) 250 mls @ 750 mls/hr IV Q15M PRN; Protocol PRN Reason: per Hypoglycemia Standing Ord. Metronidazole (Flagyl) 500 mg in 100 mls @ 100 mls/hr IV Q8H [facility] Last Infusion: 04/05/24 07:23 Dose: Infused Documented By: VASHTI Levofloxacin (Levaquin) 750 mg in 150 mls @ 100 mls/hr IV Q24H [facility] Last Infusion: 04/04/24 17:11 Dose: Infused Documented By: MAURA Insulin Human Lispro (Insulin Lispro 100 Unit/Ml 3 Ml Vial) 0 unit SUBCUT QIDACHS [facility]; Protocol Last Admin: 04/05/24 11:27 Dose: Not Given Documented By: VASHTI Non-Admin Reason: No Insulin Coverage Magnesium Hydroxide (Milk Of Magnesia 30 Ml Oral.Susp) 30 ml PO BID PRN PRN Reason: Constipation Metoclopramide HCl (Metoclopramide Hcl 10 Mg/2 Ml Vial) 10 mg IVPUSH Q6H PRN PRN Reason: Nausea and Vomiting Last Admin: 04/05/24 05:56 Dose: 10 mg Documented By: PEACE Metoprolol Tartrate (Metoprolol Tartrate 25 Mg Tablet) 25 mg PO BID [facility]; Protocol Last Admin: 04/05/24 09:19 Dose: 25 mg Documented By: VASHTI Nitroglycerin (Nitroglycerin 0.4 Mg Tab.Subl) 0.4 mg SUBLINGUAL Q5M PRN PRN Reason: chest pain Omeprazole (Omeprazole 20 Mg Capsule.Dr) 20 mg PO BID@0630,1630 [facility] Last Admin: 04/05/24 05:49 Dose: 20 mg Documented By: PEACE Ondansetron HCl (Ondansetron Hcl 4 Mg/2 Ml Vial) 4 mg IVPUSH QID PRN PRN Reason: Nausea Last Admin: 04/05/24 12:24 Dose: 4 mg Documented By: TYESHA Scopolamine (Scopolamine 1.5 Mg Patch.Td.3) 1.5 mg EAR-BEHIND Q72H [facility] Last Admin: 04/03/24 14:06 Dose: 1.5 mg Documented By: MAURA Senna (Senna Edisto Extract Oral Syrup 15 Ml Syrup) 15 ml PO BEDTIME [facility] Last Admin: 04/04/24 21:26 Dose: Not Given Documented By: PEACE Non-Admin Reason: Patient Refused Sodium Biphosphate/Sodium Phosphate (Sodium Phosphate,[place]-Dibasic 133 Ml Enema) 133 ml OK ONCE PRN PRN Reason: Constipation Sodium Chloride (0.9 % Sodium Chloride Flush 3 Ml Syringe) 3 ml IVFLUSH QSHIFT [facility] Last Admin: 04/05/24 09:21 Dose: 3 ml Documented By: VASHTI Spironolactone (Spironolactone 25 Mg Tablet) 25 mg PO DAILY [facility]; Protocol Last Admin: 04/05/24 09:19 Dose: 25 mg Documented By: VASHTI Zolpidem Tartrate (Zolpidem Tartrate 5 Mg Tablet) 5 mg PO BEDTIME PRN PRN Reason: Insomnia Last Admin: 04/04/24 22:43 Dose: 5 mg Documented By: PEACE Labs 04/03/24 05:36 03/27/24 05:26 Labs: Laboratory Results - last 24 hr 04/04/24 04/04/24 04/05/24 16:18 20:13 07:17 POC Glucose 98 87 98 04/05/24 11:06 POC Glucose 89 Procedures Date of Service Date of Service: 04/05/24 Progress Note: A&P Assessment and plan (1) Abdominal fluid collection: Status: Acute (2) Weakness: Status: Acute Plan Hospital day 13 for retroperitoneal and abdominal wall abscess drainage, incision and drainage. Intermittent nausea/dry heaving limiting PO intake. Currently improved with reglan. Wounds appear much improved with no erythema, scant persistent drainage from I&D site and drains. F/u CT abdomen and pelvis showed resolution of collections, b/l pleural effusions. Drains removed at bedside today uneventfully. Hopefully stop abx tomorrow. Again encouraged OOB and ambulation and IS use. Time Spent With Patient Time: Total time managing care of this patient today ____ minutes. Quality Stroke Does the patient have a stroke diagnosis?: No VTE Prior VTE?: No VTE Risk Level:: Surgical - moderate VTE Device Contraindication: Treatment Not Indicated VTE Drug Contraindication: Treatment Not Indicated
[2024-04-05] MEDS: levoFLOXacin/D5W 750 MG/150 ML PIGGYBACK 100 MG IV (15:42)
[2024-04-05] MEDS: guaiFENesin DM 600/30 1 TAB TAB.ER.12H 2 TAB PO (15:42)
[2024-04-05 18:13] LABS: Glucose, Whole Blood 91 mg/dL (60-115)
--- NOTE | 2024-04-05 18:32 | PC.NURSE ---
Pt complained of my chest hurts by my defibrillator pt has had a congested cough and coughing today . order obtained for mucinex and given see JAN . VSS brooks Lombardo notified , will re consult hospitalist
--- NOTE | 2024-04-05 19:16 | ECG_ITS ---
Test Reason : chest pain Blood Pressure : / mmHG Vent. Rate : 075 BPM Atrial Rate : 075 BPM P-R Int : 212 ms QRS Dur : 028 ms QT Int : 354 ms P-R-T Axes : -10 -84 007 degrees QTc Int : 395 ms Poor data quality Undetermined rhythm Abnormal ECG When compared with ECG of 23-MAR-2024 15:07, Poor data quality in current ECG precludes serial comparison Please repeat EKG Referred By: Vikki Temple Electronically Signed By:CYDNEY HERNANDEZ MD
--- NOTE | 2024-04-05 19:25 | PM.EVENT ---
Event Note Date of Service: 04/05/24 Event Note: 64-year-old male with a complex PMH significant for CAD with ischemic cardiomyopathy with chronic total occlusion of RCA and LAD with nonviable myocardium, HFrEF 25-30% with ICD in place, paroxysmal AFib no longer on anticoagulation due to multiple GI bleeds, type 2 diabetes no longer on insulin but with neuropathy, CKD 3, hx of perforated appendicitis with intra-abdominal abscess and enterocutaneous fistula requiring IR drainage and subsequent right colectomy, recurrent collections in the retroperitoneum and abdominal wall requiring drainage, hx of chronic diabetic foot ulcers with right transmetatarsal amputation and left BKA, lip carcinoma, and depression admitted to general surgery for retroperitoneal abscess with consult placed hospitalist service due to chest pain, congestion, and dyspnea. The patient reports that he has been experiencing midsternal chest pressure ongoing for several hours with associated dyspnea/orthopnea. He states he feels as if he can not breathe. There is no radiation of the chest pain. No diaphoresis, lightheadedness, syncope, palpitations, nausea, or vomiting. He denies any abdominal pain. On exam, heart is regular in rhythm and rate without murmurs. Lung exam reveals bilateral diffuse coarse crackles. Patient noted to be in mild respiratory distress without accessory muscle usage. Ordered chest x-ray, EKG, DuoNeb, 40 mg Lasix, hydromorphone. Will check BMP, BNP, troponin. Check COVID-19, influenza, Vital signs stable, no fevers or hypoxia. Time Spent With Patient Time: Total time managing care of this patient today ____ minutes.
[2024-04-05] MEDS: Albuterol/Iprat 2.5/0.5MG 3 ML AMPUL.NEB INHALE (19:26)
[2024-04-05] MEDS: Furosemide 40 MG/4 ML VIAL IVPUSH (19:27)
[2024-04-05 20:00] LABS: Glucose, Whole Blood 73 mg/dL (60-115)
[2024-04-05 20:15] LABS: MANUAL DIFF FLAG NO
[2024-04-05 20:22] LABS: Basophils Percent Auto 0.1 % (0-2); Eosinophils Absolute Auto 0.1 X10*3/uL (0.0-0.4); Eosinophils Percent Auto 0.4 % (0-4); Hematocrit 23.7 % (42.0-52.0); Hemoglobin 8.1 g/dl (14.0-18.0); Imm Gran Abs Auto 0.22 X10*3/uL (0.00-0.03); Imm Gran Pct Auto 1.1 % (0.0-0.4); Lymphocytes Absolute Auto 0.5 X10*3/uL (1.2-4.9); Lymphocytes Percent Auto 2.5 % (20-40); Mean Corpuscular HGB Conc 34.2 g/dl (31.0-36.0); Mean Corpuscular Hemoglobin 28.3 pg (27.0-33.0); Mean Corpuscular Volume 82.9 fL (80.0-98.0); Mean Platelet Volume 9.7 fL (9.4-12.4); Monocytes Absolute Auto 1.2 X10*3/uL (0.1-1.2); Monocytes Percent Auto 6.1 % (2-11); Neutrophils Percent Auto 89.8 % (45-73); Platelet Count 147 X10*3/uL (160-400); Red Blood Count 2.86 X10*6/uL (4.60-5.80); Red Cell Distribution Width 15.4 % (11.0-16.0); White Blood Count 20.1 X10*3/uL (4.8-10.8)
[2024-04-05 20:41] LABS: B Type Natriuretic Peptide 208 pg/mL (<100)
[2024-04-05 20:42] LABS: Troponin-I High Sensitivity 19.9 ng/L (<3.5-35.0)
[2024-04-05 20:49] LABS: Anion Gap 19 (12-20); Blood Urea Nitrogen 15 mg/dL (9-16); Calcium 7.4 mg/dL (8.4-10.2); Carbon Dioxide 21 mmol/L (22-29); Chloride 92 mmol/L (96-108); Creatinine Clr Calc Pharmacy 83.4; Estimated Glomerular Filt Rate > 60; Glucose Random 72 mg/dL (60-115); Potassium 2.4 mmol/L (3.3-5.1); Sodium 130 mmol/L (135-145)
--- NOTE | 2024-04-05 21:00 | PC.NURSE ---
Bumex held per PA's orders
[2024-04-05] MEDS: Potassium Chloride/H20 10 MEQ/100 ML PIGGYBACK 100 MEQ IV ×2 (21:27→23:59)
[2024-04-05 21:32] LABS: Lactic Acid 0.9 mmol/L (0.5-2.0)
[2024-04-05 22:01] LABS: Influenza A PCR NEGATIVE (Negative); Influenza B PCR NEGATIVE (Negative); Resp Syncy Virus RNA Qual PCR NEGATIVE (Negative); SARS COV2 PCR INHOUSE NEGATIVE (Negative)
[2024-04-05] MEDS: Zolpidem Tartrate 5 MG TABLET PO (22:46)
--- NOTE | 2024-04-05 23:22 | PC.NURSE ---
Potassium being held until zosyn is done, pt only has one IV line in place. Pt resting quietly, repositioned. Call rausch in reach
[2024-04-05 23:29] LABS: Troponin-I High Sensitivity 18.8 ng/L (<3.5-35.0)
[2024-04-06] VITALS (14 sets, daily range): BP systolic 119–128; BP diastolic 57–62; PULSE 69–76; RESP 17–20; TEMP 35.9–36.5; O2SAT 91–99
[2024-04-06] MEDS: HYDROmorphone HCl 0.5 MG/0.5 ML SYRINGE IVPUSH ×6 (00:44→23:00)
--- NOTE | 2024-04-06 01:00 | PC.NURSE ---
Addendum entered by Misty Garrido 04/06/24 02:45: Pt continues to be congested with a nonproductive cough, gurgling in throat heard when speaking. Pt unable to sleep due to chest tightness and cough. RT called, to attempt suctioning, per pt's request. Original Note: Pt requested respiratory treatment, RT called and at bedside duoneb given.
[2024-04-06] MEDS: Potassium Chloride/H20 10 MEQ/100 ML PIGGYBACK 100 MEQ IV ×5 (01:08→22:50)
[2024-04-06] MEDS: guaiFENesin 100 MG/5 ML LIQUID PO ×2 (03:37→13:14)
[2024-04-06] MEDS: metroNIDAZOLE/NS 500 MG/100 ML PIGGYBACK 100 MG IV (05:59)
[2024-04-06 06:33] LABS: MANUAL DIFF FLAG NO
[2024-04-06 06:51] LABS: Basophils Percent Auto 0.1 % (0-2); Eosinophils Absolute Auto 0.1 X10*3/uL (0.0-0.4); Eosinophils Percent Auto 0.2 % (0-4); Hematocrit 23.5 % (42.0-52.0); Hemoglobin 8.1 g/dl (14.0-18.0); Imm Gran Abs Auto 0.23 X10*3/uL (0.00-0.03); Imm Gran Pct Auto 1.1 % (0.0-0.4); Lymphocytes Absolute Auto 0.6 X10*3/uL (1.2-4.9); Lymphocytes Percent Auto 2.8 % (20-40); Mean Corpuscular HGB Conc 34.5 g/dl (31.0-36.0); Mean Corpuscular Hemoglobin 28.8 pg (27.0-33.0); Mean Corpuscular Volume 83.6 fL (80.0-98.0); Mean Platelet Volume 9.7 fL (9.4-12.4); Monocytes Absolute Auto 1.4 X10*3/uL (0.1-1.2); Monocytes Percent Auto 6.7 % (2-11); Neutrophils Absolute Auto 18.4 x10*3/uL (2.0-8.3); Neutrophils Percent Auto 89.1 % (45-73); Platelet Count 132 X10*3/uL (160-400); Red Blood Count 2.81 X10*6/uL (4.60-5.80); Red Cell Distribution Width 15.1 % (11.0-16.0); White Blood Count 20.7 X10*3/uL (4.8-10.8)
[2024-04-06 07:09] LABS: Anion Gap 17 (12-20); Blood Urea Nitrogen 14 mg/dL (9-16); Calcium 7.3 mg/dL (8.4-10.2); Carbon Dioxide 21 mmol/L (22-29); Chloride 92 mmol/L (96-108); Creatinine Clr Calc Pharmacy 95.1; Estimated Glomerular Filt Rate > 60; Glucose Random 84 mg/dL (60-115); Potassium 2.8 mmol/L (3.3-5.1); Sodium 127 mmol/L (135-145)
[2024-04-06 07:43] LABS: Glucose, Whole Blood 83 mg/dL (60-115)
--- NOTE | 2024-04-06 08:03 | P.PNGS_ITS ---
Subjective Subjective Date of Service: 04/06/24 Interval history: Patient with complaints of chest pain and shortness of breath during the night. Evaluated by the hospitalist team. Electrolytes checked and potassium critically low. Repletion begun. Patient does have left pleural effusion and has avoided getting out of bed. Physical Exam 2 Vital Signs: Vital Signs: Last Vital Signs Temp 97.4 F 04/06/24 07:33 Pulse 72 04/06/24 07:33 Resp 20 04/06/24 07:33 BP 128/62 04/06/24 07:33 Pulse Ox 97 04/06/24 07:33 O2 Del Method Nasal Cannula 04/06/24 07:33 O2 Flow Rate 3.0 04/06/24 07:33 BMI result Body Mass Index 28.0 Const: General: ill appearing and tired appearing Nutritional Appearance: w ell nourished Orientation/consciousness: patient oriented x3 Resp: Other: Tachypnea, coughing, on facemask O2 GI: Other: Right flank dressings clean and intact. Skin: Other: Cool dry, no rash Neuro: General: patient oriented x3 Objective Data Active Medications Acetaminophen (Acetaminophen 325 Mg Tablet) 650 mg PO QID PRN PRN Reason: headache, temp > 101 Albuterol/Ipratropium (Albuterol/Iprat 2.5/0.5mg 3 Ml Ampul.Neb) 3 ml INHALE RQ4H WHILE AWAKE [facility] Albuterol/Ipratropium (Albuterol/Iprat 2.5/0.5mg 3 Ml Ampul.Neb) 3 ml INHALE Q4H PRN PRN Reason: Wheezing Amiodarone HCl (Amiodarone Hcl 200 Mg Tablet) 200 mg PO DAILY [facility] Last Admin: 04/05/24 09:20 Dose: 200 mg Documented By: VASHTI Atorvastatin Calcium (Atorvastatin Calcium 40 Mg Tablet) 40 mg PO DAILY [facility] Last Admin: 04/05/24 09:20 Dose: 40 mg Documented By: VASHTI Bisacodyl (Bisacodyl 5 Mg Tablet.) 5 mg PO DAILY [facility] Last Admin: 04/05/24 09:20 Dose: Not Given Documented By: VASHTI Non-Admin Reason: Patient Refused Bumetanide (Bumetanide 1 Mg Tablet) 2 mg PO BID [facility]; Protocol Last Admin: 04/05/24 21:33 Dose: Not Given Documented By: PENNY Non-Admin Reason: Physician Held Med Carvedilol (Carvedilol 6.25 Mg Tablet) 6.25 mg PO BID [facility]; Protocol Last Admin: 04/05/24 21:18 Dose: 6.25 mg Documented By: PENNY Glucose (Glucose Gel 15 Gm Gel..Gram.) 15 gm PO Q15M PRN; Protocol PRN Reason: per Hypoglycemia Standing Ord. Guaifenesin (Guaifenesin 100 Mg/5 Ml Liquid) 5 ml PO Q6H PRN PRN Reason: Cough Last Admin: 04/06/24 03:37 Dose: 5 ml Documented By: PENNY Hydromorphone HCl (Hydromorphone Hcl 2 Mg Tablet) 2 mg PO Q4H PRN PRN Reason: Pain, Moderate(Pain Scale 4-6) Hydromorphone HCl (Hydromorphone Hcl 0.5 Mg/0.5 Ml Syringe) 0.5 mg IVPUSH Q4H PRN; Protocol PRN Reason: Pain, Severe (Pain Scale 7-10) Last Admin: 04/06/24 04:55 Dose: 0.5 mg Documented By: PENNY Dextrose (D10) 250 mls @ 750 mls/hr IV Q15M PRN; Protocol PRN Reason: per Hypoglycemia Standing Ord. Potassium Chloride (Potassium Chloride/H20) 10 meq in 100 mls @ 100 mls/hr IV Q1H [facility] Stop: 04/06/24 09:29 Last Admin: 04/06/24 07:47 Dose: 100 mls/hr Documented By: VASHTI Insulin Human Lispro (Insulin Lispro 100 Unit/Ml 3 Ml Vial) 0 unit SUBCUT QIDACHS [facility]; Protocol Last Admin: 04/05/24 21:49 Dose: Not Given Documented By: PENNY Non-Admin Reason: No Insulin Coverage Magnesium Hydroxide (Milk Of Magnesia 30 Ml Oral.Susp) 30 ml PO BID PRN PRN Reason: Constipation Metoclopramide HCl (Metoclopramide Hcl 10 Mg/2 Ml Vial) 10 mg IVPUSH Q6H PRN PRN Reason: Nausea and Vomiting Last Admin: 04/05/24 16:37 Dose: 10 mg Documented By: VASHTI Metoprolol Tartrate (Metoprolol Tartrate 25 Mg Tablet) 25 mg PO BID [facility]; Protocol Last Admin: 04/05/24 21:19 Dose: 25 mg Documented By: PENNY Nitroglycerin (Nitroglycerin 0.4 Mg Tab.Subl) 0.4 mg SUBLINGUAL Q5M PRN PRN Reason: chest pain Omeprazole (Omeprazole 20 Mg Capsule.Dr) 20 mg PO BID@0630,1630 [facility] Last Admin: 04/06/24 06:05 Dose: Not Given Documented By: PENNY Non-Admin Reason: Pt refused due to difficulty swallowing rosamaria Ondansetron HCl (Ondansetron Hcl 4 Mg/2 Ml Vial) 4 mg IVPUSH QID PRN PRN Reason: Nausea Last Admin: 04/05/24 12:24 Dose: 4 mg Documented By: TYESHA Scopolamine (Scopolamine 1.5 Mg Patch.Td.3) 1.5 mg EAR-BEHIND Q72H [facility] Last Admin: 04/03/24 14:06 Dose: 1.5 mg Documented By: MAURA Senna (Senna Lerna Extract Oral Syrup 15 Ml Syrup) 15 ml PO BEDTIME [facility] Last Admin: 04/05/24 21:49 Dose: Not Given Documented By: PENNY Non-Admin Reason: Patient Refused Sodium Biphosphate/Sodium Phosphate (Sodium Phosphate,[place]-Dibasic 133 Ml Enema) 133 ml IN ONCE PRN PRN Reason: Constipation Sodium Chloride (0.9 % Sodium Chloride Flush 3 Ml Syringe) 3 ml IVFLUSH QSHIFT [facility] Last Admin: 04/05/24 22:44 Dose: 3 ml Documented By: PENNY Spironolactone (Spironolactone 25 Mg Tablet) 25 mg PO DAILY [facility]; Protocol Last Admin: 04/05/24 09:19 Dose: 25 mg Documented By: VASHTI Zolpidem Tartrate (Zolpidem Tartrate 5 Mg Tablet) 5 mg PO BEDTIME PRN PRN Reason: Insomnia Last Admin: 04/05/24 22:46 Dose: 5 mg Documented By: PENNY Labs 04/06/24 05:57 04/06/24 05:57 Labs: Laboratory Results - last 24 hr 04/05/24 04/05/24 04/05/24 11:06 16:14 19:55 MCV MCH MCHC RDW Plt Count MPV Immature Gran % (Auto) Neut % (Auto) Lymph % (Auto) [place] % (Auto) Eos % (Auto) Baso % (Auto) Lymph # (Auto) [place] # (Auto) Eos # (Auto) Baso # (Auto) Abs Immat Gran (auto) Absolute Neuts (auto) Absolute Nucleated RBC Nucleated RBC % (auto) Anion Gap 19 Estim Creat Clear Calc 83.4 Estimated GFR > 60 POC Glucose 89 91 Random Glucose 72 Lactic Acid Calcium 7.4 L D Troponin I High Sens B-Natriuretic Peptide 208 H Influenza Type A (PCR) Influenza Type B (PCR) RSV RNA Qual (PCR) SARS-CoV-2 RNA (RT-PCR) 04/05/24 04/05/24 04/05/24 19:56 20:58 21:09 MCV 82.9 MCH 28.3 MCHC 34.2 RDW 15.4 Plt Count 147 L MPV 9.7 Immature Gran % (Auto) 1.1 H Neut % (Auto) 89.8 H Lymph % (Auto) 2.5 L [place] % (Auto) 6.1 Eos % (Auto) 0.4 Baso % (Auto) 0.1 Lymph # (Auto) 0.5 L [place] # (Auto) 1.2 Eos # (Auto) 0.1 Baso # (Auto) 0.0 Abs Immat Gran (auto) 0.22 H Absolute Neuts (auto) 18.0 H Absolute Nucleated RBC 0.000 Nucleated RBC % (auto) 0.0 Anion Gap Estim Creat Clear Calc Estimated GFR POC Glucose 73 Random Glucose Lactic Acid 0.9 Calcium Troponin I High Sens 19.9 D B-Natriuretic Peptide Influenza Type A (PCR) NEGATIVE Influenza Type B (PCR) NEGATIVE RSV RNA Qual (PCR) NEGATIVE SARS-CoV-2 RNA (RT-PCR) NEGATIVE 04/05/24 04/06/24 04/06/24 23:05 05:57 07:38 MCV 83.6 MCH 28.8 MCHC 34.5 RDW 15.1 Plt Count 132 L MPV 9.7 Immature Gran % (Auto) 1.1 H Neut % (Auto) 89.1 H Lymph % (Auto) 2.8 L [place] % (Auto) 6.7 Eos % (Auto) 0.2 Baso % (Auto) 0.1 Lymph # (Auto) 0.6 L [place] # (Auto) 1.4 H Eos # (Auto) 0.1 Baso # (Auto) 0.0 Abs Immat Gran (auto) 0.23 H Absolute Neuts (auto) 18.4 H Absolute Nucleated RBC 0.000 Nucleated RBC % (auto) 0.0 Anion Gap 17 Estim Creat Clear Calc 95.1 Estimated GFR > 60 POC Glucose 83 Random Glucose 84 Lactic Acid Calcium 7.3 L Troponin I High Sens 18.8 B-Natriuretic Peptide Influenza Type A (PCR) Influenza Type B (PCR) RSV RNA Qual (PCR) SARS-CoV-2 RNA (RT-PCR) Procedures Date of Service Date of Service: 04/06/24 Progress Note: A&P Assessment and plan (1) Weakness: Status: Acute (2) Abdominal fluid collection: Status: Acute Plan Appreciate hospitalist's evaluation and management. Continue to replete potassium. WBC remains elevated at 20 K despite no further fluid collection noted on CT and 14 days antibiotics. We will stop IV antibiotics and monitor. Infectious disease reconsulted. Recheck lytes later today. Time Spent With Patient Time: Total time managing care of this patient today ____ minutes. Quality Stroke Does the patient have a stroke diagnosis?: No VTE Prior VTE?: No VTE Risk Level:: Surgical - moderate VTE Device Contraindication: Treatment Not Indicated VTE Drug Contraindication: Treatment Not Indicated
[2024-04-06] MEDS: Albuterol/Iprat 2.5/0.5MG 3 ML AMPUL.NEB INHALE ×4 (08:53→19:22)
[2024-04-06] MEDS: Metoclopramide HCl 10 MG/2 ML VIAL IVPUSH ×2 (10:29→20:38)
[2024-04-06] MEDS: Metoprolol Tartrate 25 MG TABLET PO ×2 (10:57→20:38)
[2024-04-06] MEDS: carvediloL 6.25 MG TABLET PO ×2 (10:57→20:32)
[2024-04-06] MEDS: Bumetanide 1 MG TABLET 2 MG PO ×2 (10:58→20:33)
[2024-04-06] MEDS: Atorvastatin Calcium 40 MG TABLET PO (10:58)
[2024-04-06] MEDS: Amiodarone HCL 200 MG TABLET PO (10:58)
[2024-04-06] MEDS: Spironolactone 25 MG TABLET PO (10:58)
[2024-04-06 11:28] LABS: Glucose, Whole Blood 97 mg/dL (60-115)
[2024-04-06 12:08] LABS: ABG HCO3 22 mmol/L (22-26); ABG pCO2 28 mmHg (32-45); ABG pH 7.49 (7.35-7.45); ABG pO2 66 mmHg (83-108)
[2024-04-06 12:09] LABS: Anion Gap 16 (12-20); Carbon Dioxide 23 mmol/L (22-29); Chloride 92 mmol/L (96-108); Sodium 128 mmol/L (135-145)
--- NOTE | 2024-04-06 12:24 | P.PNIM_ITS ---
Subjective Subjective Date of Service: 04/06/24 Interval History: f/u on chest pain, sob interval history: appears anxious, normal O2 off oxygen, Physical Exam 2 Vital Signs: Vital Signs: Last Vital Signs Temp 97.4 F 04/06/24 07:33 Pulse 75 04/06/24 11:39 Resp 20 04/06/24 11:39 BP 120/57 L 04/06/24 10:58 Pulse Ox 97 04/06/24 07:33 O2 Del Method Nasal Cannula 04/06/24 07:33 O2 Flow Rate 3.0 04/06/24 07:33 BMI result Body Mass Index 28.0 Constitutional - Awake and Alert, No apparent distress Eyes - PERRLA, EOMI Cardiovascular - S1S2, RRR, No edema Respiratory - dimished, rhonchi Gastrointestinal -ttp ruq with drains in place ruq and flank. ND; +BS; No rebound or guarding Extremities - no calf tenderness bilaterally, no swelling Skin - Warm/Dry Neurological - Alert & oriented x3 Psychological - Depressed affect Objective Data Active Medications Acetaminophen (Acetaminophen 325 Mg Tablet) 650 mg PO QID PRN PRN Reason: headache, temp > 101 Albuterol/Ipratropium (Albuterol/Iprat 2.5/0.5mg 3 Ml Ampul.Neb) 3 ml INHALE RQ4H WHILE AWAKE [facility] Last Admin: 04/06/24 11:39 Dose: 3 ml Documented By: ANUP Albuterol/Ipratropium (Albuterol/Iprat 2.5/0.5mg 3 Ml Ampul.Neb) 3 ml INHALE Q4H PRN PRN Reason: Wheezing Amiodarone HCl (Amiodarone Hcl 200 Mg Tablet) 200 mg PO DAILY [facility] Last Admin: 04/06/24 10:58 Dose: 200 mg Documented By: VASHTI Atorvastatin Calcium (Atorvastatin Calcium 40 Mg Tablet) 40 mg PO DAILY [facility] Last Admin: 04/06/24 10:58 Dose: 40 mg Documented By: VASHTI Bisacodyl (Bisacodyl 5 Mg Tablet.) 5 mg PO DAILY [facility] Last Admin: 04/06/24 10:59 Dose: Not Given Documented By: VASHTI Non-Admin Reason: Patient Refused Bumetanide (Bumetanide 1 Mg Tablet) 2 mg PO BID [facility]; Protocol Last Admin: 04/06/24 10:58 Dose: 2 mg Documented By: VASHTI Carvedilol (Carvedilol 6.25 Mg Tablet) 6.25 mg PO BID [facility]; Protocol Last Admin: 04/06/24 10:57 Dose: 6.25 mg Documented By: VASHTI Glucose (Glucose Gel 15 Gm Gel..Gram.) 15 gm PO Q15M PRN; Protocol PRN Reason: per Hypoglycemia Standing Ord. Guaifenesin (Guaifenesin 100 Mg/5 Ml Liquid) 5 ml PO Q6H PRN PRN Reason: Cough Last Admin: 04/06/24 03:37 Dose: 5 ml Documented By: PENNY Hydromorphone HCl (Hydromorphone Hcl 2 Mg Tablet) 2 mg PO Q4H PRN PRN Reason: Pain, Moderate(Pain Scale 4-6) Hydromorphone HCl (Hydromorphone Hcl 0.5 Mg/0.5 Ml Syringe) 0.5 mg IVPUSH Q4H PRN; Protocol PRN Reason: Pain, Severe (Pain Scale 7-10) Last Admin: 04/06/24 09:29 Dose: 0.5 mg Documented By: VASHTI Dextrose (D10) 250 mls @ 750 mls/hr IV Q15M PRN; Protocol PRN Reason: per Hypoglycemia Standing Ord. Insulin Human Lispro (Insulin Lispro 100 Unit/Ml 3 Ml Vial) 0 unit SUBCUT QIDACHS [facility]; Protocol Last Admin: 04/06/24 11:39 Dose: Not Given Documented By: VASHTI Non-Admin Reason: No Insulin Coverage Magnesium Hydroxide (Milk Of Magnesia 30 Ml Oral.Susp) 30 ml PO BID PRN PRN Reason: Constipation Metoclopramide HCl (Metoclopramide Hcl 10 Mg/2 Ml Vial) 10 mg IVPUSH Q6H PRN PRN Reason: Nausea and Vomiting Last Admin: 04/06/24 10:29 Dose: 10 mg Documented By: CRISTY Metoprolol Tartrate (Metoprolol Tartrate 25 Mg Tablet) 25 mg PO BID [facility]; Protocol Last Admin: 04/06/24 10:57 Dose: 25 mg Documented By: VASHTI Nitroglycerin (Nitroglycerin 0.4 Mg Tab.Subl) 0.4 mg SUBLINGUAL Q5M PRN PRN Reason: chest pain Omeprazole (Omeprazole 20 Mg Capsule.Dr) 20 mg PO BID@0630,1630 [facility] Last Admin: 04/06/24 06:05 Dose: Not Given Documented By: PENNY Non-Admin Reason: Pt refused due to difficulty swallowing rosamaria Ondansetron HCl (Ondansetron Hcl 4 Mg/2 Ml Vial) 4 mg IVPUSH QID PRN PRN Reason: Nausea Last Admin: 04/05/24 12:24 Dose: 4 mg Documented By: TYESHA Scopolamine (Scopolamine 1.5 Mg Patch.Td.3) 1.5 mg EAR-BEHIND Q72H [facility] Last Admin: 04/03/24 14:06 Dose: 1.5 mg Documented By: MAURA Senna (Senna [place] Extract Oral Syrup 15 Ml Syrup) 15 ml PO BEDTIME [facility] Last Admin: 04/05/24 21:49 Dose: Not Given Documented By: PENNY Non-Admin Reason: Patient Refused Sodium Biphosphate/Sodium Phosphate (Sodium Phosphate,[place]-Dibasic 133 Ml Enema) 133 ml ND ONCE PRN PRN Reason: Constipation Sodium Chloride (0.9 % Sodium Chloride Flush 3 Ml Syringe) 3 ml IVFLUSH QSHIFT [facility] Last Admin: 04/06/24 08:20 Dose: Not Given Documented By: VASHTI Non-Admin Reason: IV Running Spironolactone (Spironolactone 25 Mg Tablet) 25 mg PO DAILY [facility]; Protocol Last Admin: 04/06/24 10:58 Dose: 25 mg Documented By: VASHTI Zolpidem Tartrate (Zolpidem Tartrate 5 Mg Tablet) 5 mg PO BEDTIME PRN PRN Reason: Insomnia Last Admin: 04/05/24 22:46 Dose: 5 mg Documented By: PENNY Labs 04/06/24 05:57 04/06/24 11:52 Labs: Laboratory Results - last 24 hr 04/05/24 04/05/24 04/05/24 16:14 19:55 19:56 MCV 82.9 MCH 28.3 MCHC 34.2 RDW 15.4 Plt Count 147 L MPV 9.7 Immature Gran % (Auto) 1.1 H Neut % (Auto) 89.8 H Lymph % (Auto) 2.5 L [place] % (Auto) 6.1 Eos % (Auto) 0.4 Baso % (Auto) 0.1 Lymph # (Auto) 0.5 L [place] # (Auto) 1.2 Eos # (Auto) 0.1 Baso # (Auto) 0.0 Abs Immat Gran (auto) 0.22 H Absolute Neuts (auto) 18.0 H Absolute Nucleated RBC 0.000 Nucleated RBC % (auto) 0.0 O2 Saturation ABG pH at Pt Temp ABG pCO2 at Pt Temp ABG pO2 at Pt Temp ABG HCO3 ABG Base Excess (Actual) Serum Potassium Anion Gap 19 Estim Creat Clear Calc 83.4 Estimated GFR > 60 POC Glucose 91 73 Random Glucose 72 Lactic Acid Calcium 7.4 L D Troponin I High Sens 19.9 D B-Natriuretic Peptide 208 H Influenza Type A (PCR) Influenza Type B (PCR) RSV RNA Qual (PCR) SARS-CoV-2 RNA (RT-PCR) 04/05/24 04/05/24 04/05/24 20:58 21:09 23:05 MCV MCH MCHC RDW Plt Count MPV Immature Gran % (Auto) Neut % (Auto) Lymph % (Auto) [place] % (Auto) Eos % (Auto) Baso % (Auto) Lymph # (Auto) [place] # (Auto) Eos # (Auto) Baso # (Auto) Abs Immat Gran (auto) Absolute Neuts (auto) Absolute Nucleated RBC Nucleated RBC % (auto) O2 Saturation ABG pH at Pt Temp ABG pCO2 at Pt Temp ABG pO2 at Pt Temp ABG HCO3 ABG Base Excess (Actual) Serum Potassium Anion Gap Estim Creat Clear Calc Estimated GFR POC Glucose Random Glucose Lactic Acid 0.9 Calcium Troponin I High Sens 18.8 B-Natriuretic Peptide Influenza Type A (PCR) NEGATIVE Influenza Type B (PCR) NEGATIVE RSV RNA Qual (PCR) NEGATIVE SARS-CoV-2 RNA (RT-PCR) NEGATIVE 04/06/24 04/06/24 04/06/24 05:57 07:38 11:24 MCV 83.6 MCH 28.8 MCHC 34.5 RDW 15.1 Plt Count 132 L MPV 9.7 Immature Gran % (Auto) 1.1 H Neut % (Auto) 89.1 H Lymph % (Auto) 2.8 L [place] % (Auto) 6.7 Eos % (Auto) 0.2 Baso % (Auto) 0.1 Lymph # (Auto) 0.6 L [place] # (Auto) 1.4 H Eos # (Auto) 0.1 Baso # (Auto) 0.0 Abs Immat Gran (auto) 0.23 H Absolute Neuts (auto) 18.4 H Absolute Nucleated RBC 0.000 Nucleated RBC % (auto) 0.0 O2 Saturation ABG pH at Pt Temp ABG pCO2 at Pt Temp ABG pO2 at Pt Temp ABG HCO3 ABG Base Excess (Actual) Serum Potassium Anion Gap 17 Estim Creat Clear Calc 95.1 Estimated GFR > 60 POC Glucose 83 97 Random Glucose 84 Lactic Acid Calcium 7.3 L Troponin I High Sens B-Natriuretic Peptide Influenza Type A (PCR) Influenza Type B (PCR) RSV RNA Qual (PCR) SARS-CoV-2 RNA (RT-PCR) 04/06/24 04/06/24 11:52 12:00 MCV MCH MCHC RDW Plt Count MPV Immature Gran % (Auto) Neut % (Auto) Lymph % (Auto) [place] % (Auto) Eos % (Auto) Baso % (Auto) Lymph # (Auto) [place] # (Auto) Eos # (Auto) Baso # (Auto) Abs Immat Gran (auto) Absolute Neuts (auto) Absolute Nucleated RBC Nucleated RBC % (auto) O2 Saturation 94.0 ABG pH at Pt Temp 7.49 H ABG pCO2 at Pt Temp 28 L ABG pO2 at Pt Temp 66 L ABG HCO3 22 ABG Base Excess (Actual) 0.0 Serum Potassium 3.0 L Anion Gap 16 Estim Creat Clear Calc Estimated GFR POC Glucose Random Glucose Lactic Acid Calcium Troponin I High Sens B-Natriuretic Peptide Influenza Type A (PCR) Influenza Type B (PCR) RSV RNA Qual (PCR) SARS-CoV-2 RNA (RT-PCR) Assessment and Plan (1) Abdominal fluid collection: Status: Acute Plan 64-year-old male with a complex PMH significant for CAD with ischemic cardiomyopathy with chronic total occlusion of RCA and LAD with nonviable myocardium, HFrEF 25-30% with ICD in place, paroxysmal AFib no longer on anticoagulation due to multiple GI bleeds, type 2 diabetes no longer on insulin but with neuropathy, CKD 3, hx of perforated appendicitis with intra-abdominal abscess 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 Patient reevaluated last night for chest pain, congestion, further work up show persistent leukocytosis, low potassium and low sodium Retroperitoneal abscess--s/p IR guided external catheter drainage, Culture grew Actimyoces [place]. He was treated with IV Abx with since admission now 14 days. catheter drainage has been removed. WBC remains high. Recent CT of abdomen showed stable collection that is not enlarging. Abx stopped today, will get ID input re need to treat longer. Chest pain/congestion--normal troponin, and no ischemic changes on ECG, he seems rather very anxious and this maybe the etiology of his symptoms HypOkalemia--replacing with IV and PO, repeat later, check magnesium level SOB, normal O2 on room air, CXR 04/05 bronchial wall thickening.. No evidence of pneumonia. ABG shows respiratory alkalosis from hyperventiation CAD Continue statin, nitrolglycerin prn Hold aspirin pending IR-guided drainage, resume as indicated HFrEF--BNP is slighy elevated but compare to past much lower, continue present dose of Bumex and Aldactone Paroxysmal AFib Continue Amiodarone, metoprolol Not on anti coagulation due to recurrent GI bleeds Anxiety GERD Continue PPI Non-insulin dependent type 2 diabetes diet controlled Continue SSI, follow POCs. CKD4 creatinine at baseline Hyponatremia --likely from excess water, free water restriction Chronic Normocytic anemia Likely anemia of chronic disease. H/H above transfusion threshold ill defined lucent lesions of bilateral femurs and pelvic bones Consider outpatient nuclear medicine bone scan Leukocytosis--likely reactive, follow DVT prophylaxis , compression device Quality Stroke Does the patient have a stroke diagnosis?: No VTE Prior VTE?: No VTE Risk Level:: Surgical - moderate VTE Device Contraindication: Treatment Not Indicated VTE Drug Contraindication: Treatment Not Indicated
--- NOTE | 2024-04-06 12:34 | HO.WOUND ---
Wound Consult:Follow up 64yr old?[place] [facility] [place] - See progress notes and H&P for detailed history.? Wound consult follow up for sacrum.? Arrival to bedside pt was agreeable to sacral assessment - pt reports mild pain and discomfort to the sacrum and perianal area. Sacrum and perineal area assessed for fungal dermatitis - TT to provider to consider topical antifungal order. He was educated on turning and repositioning and preventing further breakdown of note Agility Pulsate bed order - will follow up after bed arrival. Sacrum at previous assessment Sacrum Etiology: Sacrum Stage 2 Pressure Injury ?Present on Admission Wound Bed: partial thickness tissue loss red maroon nonblanchable tissue Drainage / Odor: serosang noted on bed linen Edges: ? irregular Candace wound: MASD (Moisture Associated Skin Damage )? with fungal invasion - red macular papular rash noted - No Induration, Fluctuance or Warmth noted Pain: reports some pain and discomfort Goals of Treatment: ? Topical Antifungal powder per provider orders twice a day followed by light Triad cream - off load pressure with pillows and or wedges. Recommendations: 1. Turn and Reposition every 2 hours and as needed for patient comfort.? Use pillows or wedges to support off loading positions. 2. Off Load all bony prominences with use of pillows and heel boots if needed.? Apply Preventative foams where needed. ? 3. Monitor for incontinence and moisture control, use barrier creams when needed for prevention and treatment. 4. Provide adequate and supplemental nutrition.? 5. Order low air loss mattress - Agility Called. 6. Maintain blood glucose levels per Providers order. 7. Sacrum and Perineal area - Cleanse with PH balance wipes, pat dry with soft cloth.? Apply antifungal power to assist with moisture management.? Be sure to dust of excess powder to prevent caking on skin and in folds. Apply per provider order. Follow with thin layer of triad cream twice daily and PRN. Based on fungal dermatitis foam dressings are not recommended at this time. Off load pressure with pillows and or wedges Re-consult wound care Nurse for wound deterioration or wound changes.
[2024-04-06] MEDS: Scopolamine 1.5 MG PATCH.TD.3 EAR-BEHIND (15:18)
[2024-04-06 16:31] LABS: Glucose, Whole Blood 98 mg/dL (60-115)
[2024-04-06] MEDS: 0.9 % Sodium Chloride Flush 3 ML SYRINGE IVFLUSH (17:49)
[2024-04-06] MEDS: Omeprazole 20 MG CAPSULE.DR PO (17:49)
[2024-04-06 18:17] LABS: ABG Refer to POC result
[2024-04-06 20:08] LABS: Glucose, Whole Blood 88 mg/dL (60-115)
[2024-04-06 22:23] LABS: Anion Gap 20 (12-20); Carbon Dioxide 22 mmol/L (22-29); Chloride 91 mmol/L (96-108); Potassium 2.9 mmol/L (3.3-5.1); Sodium 130 mmol/L (135-145)
--- NOTE | 2024-04-06 23:30 | P.PNID_ITS ---
Subjective Subjective Date of Service: 04/06/24 Critical Care Time (minutes): 15 Comment: he has cough and shortness of breath Objective Data Labs 04/06/24 05:57 04/06/24 21:50 Labs: Laboratory Results - last 24 hr 04/06/24 04/06/24 04/06/24 05:57 07:38 11:24 WBC 20.7 H RBC 2.81 L Hgb 8.1 L Hct 23.5 L MCV 83.6 MCH 28.8 MCHC 34.5 RDW 15.1 Plt Count 132 L MPV 9.7 Immature Gran % (Auto) 1.1 H Neut % (Auto) 89.1 H Lymph % (Auto) 2.8 L [place] % (Auto) 6.7 Eos % (Auto) 0.2 Baso % (Auto) 0.1 Lymph # (Auto) 0.6 L [place] # (Auto) 1.4 H Eos # (Auto) 0.1 Baso # (Auto) 0.0 Abs Immat Gran (auto) 0.23 H Absolute Neuts (auto) 18.4 H Absolute Nucleated RBC 0.000 Nucleated RBC % (auto) 0.0 O2 Saturation ABG pH at Pt Temp ABG pCO2 at Pt Temp ABG pO2 at Pt Temp ABG HCO3 ABG Base Excess (Actual) Sodium 127 L Potassium 2.8 L* Serum Potassium Chloride 92 L Carbon Dioxide 21 L Anion Gap 17 BUN 14 Creatinine 1.00 Estim Creat Clear Calc 95.1 Estimated GFR > 60 POC Glucose 83 97 Random Glucose 84 Calcium 7.3 L 04/06/24 04/06/24 04/06/24 11:52 12:00 16:21 WBC RBC Hgb Hct MCV MCH MCHC RDW Plt Count MPV Immature Gran % (Auto) Neut % (Auto) Lymph % (Auto) [place] % (Auto) Eos % (Auto) Baso % (Auto) Lymph # (Auto) [place] # (Auto) Eos # (Auto) Baso # (Auto) Abs Immat Gran (auto) Absolute Neuts (auto) Absolute Nucleated RBC Nucleated RBC % (auto) O2 Saturation 94.0 ABG pH at Pt Temp 7.49 H ABG pCO2 at Pt Temp 28 L ABG pO2 at Pt Temp 66 L ABG HCO3 22 ABG Base Excess (Actual) 0.0 Sodium 128 L Potassium 3.0 L Serum Potassium 3.0 L Chloride 92 L Carbon Dioxide 23 Anion Gap 16 BUN Creatinine Estim Creat Clear Calc Estimated GFR POC Glucose 98 Random Glucose Calcium 04/06/24 04/06/24 19:59 21:50 WBC RBC Hgb Hct MCV MCH MCHC RDW Plt Count MPV Immature Gran % (Auto) Neut % (Auto) Lymph % (Auto) [place] % (Auto) Eos % (Auto) Baso % (Auto) Lymph # (Auto) [place] # (Auto) Eos # (Auto) Baso # (Auto) Abs Immat Gran (auto) Absolute Neuts (auto) Absolute Nucleated RBC Nucleated RBC % (auto) O2 Saturation ABG pH at Pt Temp ABG pCO2 at Pt Temp ABG pO2 at Pt Temp ABG HCO3 ABG Base Excess (Actual) Sodium 130 L Potassium 2.9 L* Serum Potassium Chloride 91 L Carbon Dioxide 22 Anion Gap 20 BUN Creatinine Estim Creat Clear Calc Estimated GFR POC Glucose 88 Random Glucose Calcium Microbiology Microbiology Results: Microbiology 04/05/24 20:58 Blood - Venous Blood Culture - Preliminary No growth after 24 hours. 04/05/24 20:58 Blood - Venous Blood Culture - Preliminary No growth after 24 hours. 03/24/24 13:35 Abscess Intra-abdominal Gram Stain - Final 03/24/24 13:35 Abscess Intra-abdominal Routine Culture - Final No growth after 2 days 03/24/24 13:35 Abscess Intra-abdominal Anaerobic Culture - Final Actinomyces israelii Physical Exam 2 Vital Signs: Vital Signs: Last Vital Signs Temp 96.7 F L 04/06/24 18:58 Pulse 69 04/06/24 20:38 Resp 18 04/06/24 19:23 BP 119/58 L 04/06/24 20:38 Pulse Ox 92 04/06/24 18:58 O2 Del Method Room Air 04/06/24 18:58 O2 Flow Rate 3.0 04/06/24 07:33 BMI result Body Mass Index 28.0 Const: General: cooperative HEENT: Head: Yes normal to inspection Face and sinus: Yes normal facial exam Mouth: Normal oral and palatal mucosa present Teeth and gingiva: d entition normal Eyes: General: appearance normal, both eyes and all related structures P upils: Equal, round and reactive pupils present Resp: Effort & Inspection: normal respiratory effort Cardio: Rate: regular rate Rhythm: regular rhythm GI: Palpation (GI): Soft to palpation and nontender : General: Yes no CVA tenderness Back/Spine/Pelvis: Back: no CVA tenderness Skin: General skin exam: no rashes or lesions noted Neuro: General: moves all extremities Cranial nerves: Yes Equal, round and reactive pupils present Extrem: General: Yes normal to inspection Psych: Appearance: grossly normal Assessment and Plan Assessment and plan (1) Leukocytosis: Problem details: He has some basilar infiltrate,possible resistant organisms Status: Acute Assessment and Plan: Zosyn Check nares MRSA Vancomycin add if MRSA Time Spent With Patient Time: Total time managing care of this patient today ____ minutes.
[2024-04-07] MEDS: Piperacillin Sodium/Tazobactam 3.375 GM in 0.9 % Sodium Chloride 50 ML IV (00:03)
[2024-04-07] MEDS: 0.9 % Sodium Chloride Flush 3 ML SYRINGE IVFLUSH (00:06)
--- NOTE | 2024-04-07 00:30 | PC.NURSE ---
Addendum entered by Misty Garrido RN 04/07/24 02:12: Potassium running per MAR Original Note: Potassium held to give zosyn, per JAN. Pt is sleeping rosamaria with call rausch in reach.
[2024-04-07] MEDS: Potassium Chloride/H20 10 MEQ/100 ML PIGGYBACK 100 MEQ IV ×3 (01:05→03:08)
--- NOTE | 2024-04-07 04:07 | P.EN_ITS ---
Event Note Date of Service: 04/07/24 Event Note: Code bimal was called overhead as patient was found by a research instrumentation technician to be not breathing and without pulse. Unknown down time. He was last seen by RN about 30 minutes prior to this when IV potassium bag was being placed. As per the RN, patient was asleep snoring and was without resp distress. Resuscitation was begun immediately using ACLS protocol with multiple rounds of epinephrine, bicarbonate and calcium chloride. Referred to code sheet for details. Patient was intubated by ER provider. Patient remained asystole throughout. Time of : 03:38. Tried to call Libia (patient's sister) and Adam (patient's brother) but no answer. certificate completed. Time Spent With Patient Time: Total time managing care of this patient today ____ minutes.
--- NOTE | 2024-04-07 04:09 | W.ED.CONS.HO ---
Consult Details Consult Details: At approximately 03:45, beverly wallis was called in the patient's room. -upon my arrival, CPR was in progress. I immediately intubated the patient. -per staff, patient was not on a telemetry room, last well seen 30 minutes prior to finding the patient in asystole. Unknown downtime. -CPR was attempted for approximately 20-25 minutes, patient was in asystole the whole time. -patient did not regain ROSC -time of was called. -the hospitalist team will informed the patient's family and the surgery primary team I have personally provided 35 minutes of critical care time. Time includes review of lab data, radiology results, discussion with consultants, and monitoring for potential decompensation. Intervention performed as documented. Procedures Intubation Intubation Type:: Endotracheal Tube Insertion Intubation Date:: 04/07/24 sedative: none Laryngoscope: Heidi ET Tube Size: 7.5 ET Tube Uncuffed: Yes Tube Secured Depth (cm): 25 Tube Secured Location: lips Tube Placement Confirmation: visualized tube passing through cords, equal breath sounds bilaterally and no breath sounds over epigastrium Patient Tolerated Procedure: well Intubation Complications: none
--- NOTE | 2024-04-07 04:29 | PM.CCN ---
Critical Care Event Note Summary Date of Service: 04/07/24 Code activated: Yes Narrative: This case had a high probability of a clinically significant, sudden, or life threatening deterioration of this patient's condition which required my full and direct attention, intervention and personal management. Critical Care Time (minutes): 35 Comment: Chay Sparrow was called at 0338. The patient was found unresponsive, not breathing and without a pulse. Last known well time approx ? hr prior. CPR was in progress upon my arrival to the room. He was intubated by the ER physician. He was asystolic on the monitor. Resuscitation using ACLS protocol was attempted. He was given multiple doses of epinephrine, sodium bicarbonate and calcium chloride, but we were unable to achieve ROSC. The patient remained in asystole. Time of was pronounced at 0401.?
--- NOTE | 2024-04-07 04:49 | PC.NURSE ---
Pt found unresponsive by CURING OVEN TENDER, code was called. Unable to resuscitate the pt. Provider to notify family. Surgeon Dr. Davidson made aware via [employer]. Awaiting family/next of kin. Post mortem care done.
[2024-04-07 06:39] LABS: Glucose, Whole Blood 58 mg/dL (60-115)
--- NOTE | 2024-04-07 07:38 | PM.EVENT ---
Event Note Date of Service: 04/07/24 Event Note: Patient found unresponsive, not breathing, no pulse. Code blue called and ACLS protocol performed. Resuscitation efforts were unsuccessful and patient declared by Dr. Martinez at 3:38 AM. Attempts to call the next of kin, both sister and brother were unsuccessful. I also called both and left messages to call. Time Spent With Patient Time: Total time managing care of this patient today ____ minutes.
--- NOTE | 2024-04-07 08:08 | PC.NURSE ---
Addendum entered by Marisol Hernández RN 04/07/24 08:20: Patient passed at 0330 this morning, waiting in room for family to come in and view before we can send to yaw Original Note: Dr Lombardo did get a hold of sister Libia and she and her brother will be in shortly to see patient
--- NOTE | 2024-04-07 10:47 | P.CDIM_ITS ---
PROVIDER RESPONSE TEXT: To clarify, the appropriate diagnosis supported by the clinical indicators: Pressure Injury Stage II sacrum QUERY TEXT: PHYSICIAN'S DOCUMENTATION REQUEST Date of Query: 03/31/2024 09:07 AM EDT Patient Name: Denzel Hammond Admit Date: 03/23/2024 Dear Navdeep Lombardo, A review of the medical record indicates additional documentation may be needed. Please review below and update the documentation accordingly. Clinical Indicators: PMH: Pressure injury stage 2 sacrum Wound care nursing notes 03/29- Pressure injury Stage 2 left sacrum Barrier cream applied Clinical nutrition notes - Pt with increase nutrition risk d/t pressure injury. Adding Ensure to promote wound healing. Based on the above, could you please provide further information regarding the ulcer/wound/injury wit hin the body of your plan: Pressure Injury Stage II sacrum Other Other (explain) Clinically unable to determine (explain) Thank you, Yolanda Davison, CCS, CDIS Use of terms such as suspected, likely, concern for, or probable (associated with a specific diagnosi s that is being evaluated, monitored, or treated as if it exists) are acceptable and can be coded in the inpatient se tting, when documented at the time of discharge. Please use your independent medical judgment in providing your response. THIS QUERY IS PART OF THE PERMANENT MEDICAL RECORD
--- NOTE | 2024-04-16 16:27 | P.CDIM_ITS ---
PROVIDER RESPONSE TEXT: To clarify, the appropriate diagnosis supported by the clinical indicators: Incision and drainage: 10 mcm depth to retroperitoneal muscles QUERY TEXT: PHYSICIAN'S DOCUMENTATION REQUEST Date of Query: 04/14/2024 09:19 AM EDT Patient Name: Denzel Hammond Admit Date: 03/23/2024 Dear Jazzmine Martinez, RETROSPECTIVE QUERY A review of the medical record indicates additional documentation may be needed. Please review below and update the documentation accordingly. Clinical Indicators: Procedure note dated 03/26/24: I/D - abdominal fluid collection Retroperitoneal right flank abscess. Abscess under the skin and as a result incision and drainage was carried out. 400 cc of bloody purule nt fluid was removed, area was probed and irrigated with about 150 cc till it was cleaned. Packing gauze placed. Continue I V antibiotics. Based on the above, could you clarify the appropriate depth of the I/D performed on March 26, 2024: Incision and drainage skin, subcutaneous tissue and fascia, other specificity of the depth Other (explain) Clinically unable to determine (explain) Thank you, Yolanda Davison, CCS, CDIS Use of terms such as suspected, likely, concern for, or probable (associated with a specific diagnosi s that is being evaluated, monitored, or treated as if it exists) are acceptable and can be coded in the inpatient se tting, when documented at the time of discharge. Please use your independent medical judgment in providing your response. THIS QUERY IS PART OF THE PERMANENT MEDICAL RECORD
--- NOTE | 2024-04-19 15:18 | P.DS_ITS ---
DS: Providers Provider Date of Service: 04/19/24 Date of admission: 03/23/24 17:44 Date of discharge: 04/07/24 Primary care physician: Connor Mcdaniel MD Admitting clinician: Navdeep Lombardo Consults: 03/23/24 17:48 Consult to Hospitalist Routine Comment: Consulting Provider: Hospitalist Reason For Exam: CAD, DM, med management; abd wall abscess 03/24/24 01:57 Consult to Wound Care Routine Reason for consultation: redness to coccyx 03/31/24 13:52 Consult to Infectious Diseases Routine Consulting Provider: [facility] Reason for consultation: elevated WBC, Actinomyces israelii abscess culture 04/03/24 14:53 Consult to Wound Care Routine Reason for consultation: skin tear to R FA 04/05/24 18:37 Consult to Hospitalist Stat Comment: Consulting Provider: Hospitalist Reason For Exam: chest discomfort congestion 04/06/24 07:18 Consult to Infectious Diseases Routine Consulting Provider: [facility] Reason for consultation: persistent elevated WBC; second consult 04/06/24 12:46 Consult to Infectious Diseases Routine Consulting Provider: [facility] Reason for consultation: intrabdominal abscess Has provider been notified: No Attending physician on discharge: Navdeep Lombardo DS: Diagnosis Discharge Diagnosis (1) Leukocytosis: Status: Acute (2) Abdominal fluid collection: Status: Acute DS: Summary Hospital Course Hospital Course: 64-year-old male patient admitted on 03/23/2024 for a retroperitoneal and abdominal wall abscess. He has a prior history of perforated appendicitis presenting with intra-abdominal abscess requiring interventional radiology drainage and subsequent right colectomy. 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 On the current admission, he reports progressive weakness and increased abdominal pain mainly in the right upper quadrant and flank. He was noted to have an area of swelling in the right flank as well. Workup in [place] [address] abdomen and pelvis revealed a large fluid collection involving the retroperitoneum on the right side and extending into the right abdominal wall similar to previous infections. He was subsequently admitted to the surgical service for further management and placed on IV antibiotics. Infectious Disease consultation was requested as was hospitalist consultation. Arrangements were made for Interventional Radiology for drainage. This was performed on the following day, 03/24/2024 and a large purulence collection drained. Patient also underwent incision and drainage at the bedside on 03/25/2024 with production of a large purulence collection as well. Hospital course: Over the next several days his pain began to improve to some degree although he did become nauseous vomiting possibly from the antibiotics. WBC did improve over the next several days however subsequently began to rise once again. A CT abdomen and pelvis was repeated which confirmed adequate drainage of the abscess without further or new abscess collections. By 03/30/2024 the patient reports improvement in the pain but still was nauseated and unable to tolerate food. He was reluctant to get out of bed as he felt too weak. He refused physical therapy as well. He continued to have periods of nausea over the next several days and subsequently stopped taking pain medication. By 03/31/2024 the WBC I would increased back to [address] abdomen and pelvis did reveal some pleural effusions on the left side no recurrence of an abdominal abscess. He was kept on Zosyn IV for approximately 2 weeks and then subsequently stopped. Drainage from the SHY drains had decreased as well and they were subsequently removed after 2 weeks. On 04/05/2024 the patient began to have cough as well as the nausea. Hospitalist reconsulted for further evaluation. Patient was encouraged to get out of bed and perform incentive spirometry due to the pleural effusions. On 04/06/2024 patient developed chest pain. Electrolytes were checked and he was found to have a low potassium level. This was repleted during the day. Patient continued to be short of breath with a cough. On 04/07/2024, the patient was found unresponsive, not breathing, no pulse. Code blue called and ACLS protocol performed. Resuscitation efforts were unsuccessful and patient declared by Dr. Martinez at 3:38 AM. The patient's sister was notified. Status at Discharge Overall status at discharge: other (Patient ) Time Attestation Discharge Coordination Time (in mins): 35 Quality: Safe Use of Opioids Does Pt have an Active Cancer Diagnosis on the Problem List?: No Quality: Stroke Does the patient have a stroke diagnosis?: No Physical Exam Vital Signs: Vital Signs: Last Vital Signs Temp 96.7 F L 04/06/24 18:58 Pulse 69 04/06/24 20:38 Resp 18 04/06/24 19:23 BP 119/58 L 04/06/24 20:38 Pulse Ox 92 04/06/24 18:58 O2 Del Method Room Air 04/06/24 18:58 O2 Flow Rate 3.0 04/06/24 07:33 BMI result Body Mass Index 28.0 DS: Data Data Completed and Pending Completed studies during hospitalization [Text1]: Procedures Control Bleeding in Gastrointestinal Tract, Via Natural or Artificial Opening En doscopic (05/26/22) Drainage of Abdomen Subcutaneous Tissue and Fascia, Open Approach (03/23/24) Drainage of Abdominal Wall with Drainage Device, Percutaneous Approach (03/23/24) Drainage of Retroperitoneum with Drainage Device, Percutaneous Approach (03/23/24) Drainage of Retroperitoneum, Percutaneous Endoscopic Approach (12/22/20) Drainage of Right Abdomen Muscle, Open Approach (05/26/21) Excision of Right Large Intestine, Via Natural or Artificial Opening Endoscopic, Diagnostic (05/26/22) Excision of Stomach, Pylorus, Via Natural or Artificial Opening Endoscopic, Diagnostic (05/26/22) Insertion of Endotracheal Airway into Trachea, Via Natural or Artificial Opening (03/23/24) Introduction of Remdesivir Anti-infective into Peripheral Vein, Percutaneous Approach, [employer] (06/16/22) Introduction of Vasopressor into Peripheral Vein, Percutaneous Approach (05/26/22) Irrigation of Peritoneal Cavity using Irrigating Substance, Percutaneous Approach (05/26/21) Performance of Cardiac Output, Single, Manual (03/23/24) Transfusion of Nonautologous Red Blood Cells into Peripheral Vein, Percutaneous Approach (06/23/22) Discharge Plan Discharge Date/Time: 04/07/24 03:38 Patient Disposition: Discharge Diagnosis: Abdominal wall abscess Referrals: Connor Mcdaniel MD [Primary Care Provider] - 1 Week Discharge Medications: No Action nitroglycerin 0.4 mg tablet, sublingual 0.4 mg sublingual Q5M PRN (Reason: chest pain) Qty: 100 0RF Rx Instructions: do not exceed 3 doses per episode rosuvastatin 10 mg tablet 10 mg PO DAILY Qty: 90 3RF carvedilol 6.25 mg Tablet 6.25 mg PO BID Qty: 60 0RF Protocol: Hold for SBP/HR < HOLD for SBP < : 90 HOLD for HR < : 60 amiodarone 200 mg tablet 200 mg PO DAILY omeprazole 20 mg capsule,delayed release(DR/EC) 20 mg PO BID aspirin 81 mg tablet,delayed release (DR/EC) 81 mg PO DAILY Qty: 14 0RF spironolactone 25 mg tablet 25 mg PO DAILY metoprolol tartrate 25 mg tablet 25 mg PO BID multivitamin Tablet 1 tab PO DAILY bumetanide 1 mg tablet 2 mg PO BID 90 Days Qty: 360 1RF Print Language: Divehi Discharge Date/Time: 04/07/24 03:38
== END 2024-04-07 03:38 | disposition expired | DRG 987 ==
LOC: HO.ED 14:01 → HO.EDOVER 18:06 → HO.S3 23:57
PROVIDERS: Internal Medicine; Physician Assistant; Physician Assistant Surgical; Radiology Vascular & Interventional Radiology; Surgery; Admitting Provider Surgery; Emergency Provider Student in an Organized Health Care Education/Training Program; PCP Internal Medicine; Visit Provider Surgery
DX: K68.19 Other retroperitoneal abscess (principal); K68.12 Psoas muscle abscess; E87.1 Hypo-osmolality and hyponatremia; I50.22 Chronic systolic (congestive) heart failure; N18.4 Chronic kidney disease, stage 4 (severe); L02.211 Cutaneous abscess of abdominal wall; F41.9 Anxiety disorder, unspecified; E87.6 Hypokalemia; I46.9 Cardiac arrest, cause unspecified; I25.10 Atherosclerotic heart disease of native coronary artery without angina pectoris; I48.0 Paroxysmal atrial fibrillation; D63.1 Anemia in chronic kidney disease; K21.9 Gastro-esophageal reflux disease without esophagitis; L89.152 Pressure ulcer of sacral region, stage 2; Z89.512 Acquired absence of left leg below knee; Z20.822 Contact with and (suspected) exposure to COVID-19; Z95.810 Presence of automatic (implantable) cardiac defibrillator; Z87.891 Personal history of nicotine dependence; Z79.82 Long term (current) use of aspirin; Z79.899 Other long term (current) drug therapy
CPT/HCPCS: 0241U; 36415; 36600; 49406; 71045; 71046; 74176; 80048; 80051; 80053; 80076; 80307; 81003; 82803; 82947; 83605; 83690; 83880; 83930; 83935; 84132; 84484; 85025; 85027; 87040; 87070; 87073; 87076; 87185; 87205; 92950; 93005; 94640; 97162; 99285; C1729; J0171; J1170; J1836; J1940; J1956; J2270; J2405; J2543; J2550; J2765; J3480; J7120; Q4186

== ENCOUNTER → 2024-03-23 14:20 | Outpatient (BNV) | payer MEDICARE, SELFPAY | PROVIDERS: Admitting Provider Surgery; Emergency Provider Student in an Organized Health Care Education/Training Program; PCP Internal Medicine; Visit Provider Internal Medicine Cardiovascular Disease | DX: R53.1 Weakness (principal) | CPT/HCPCS: 93010 ==

== ENCOUNTER 2024-03-23 17:44 | Outpatient (BNV) | payer MEDICARE, SELFPAY | END 2024-04-05 19:16 | PROVIDERS: Admitting Provider Surgery; Emergency Provider Student in an Organized Health Care Education/Training Program; PCP Internal Medicine; Visit Provider Internal Medicine Cardiovascular Disease | DX: R07.9 Chest pain, unspecified (principal) | CPT/HCPCS: 93010 ==

== ENCOUNTER 2024-03-23 17:44 | Outpatient (BNV) | payer MEDICARE, SELFPAY | END 2024-03-24 12:59 | PROVIDERS: Admitting Provider Surgery; Emergency Provider Student in an Organized Health Care Education/Training Program; PCP Internal Medicine; Visit Provider Physician Assistant Surgical | DX: K68.19 Other retroperitoneal abscess (principal) | CPT/HCPCS: 49406 ==

== ENCOUNTER → 2024-03-23 17:44 | Outpatient (BNV) | payer MEDICARE, SELFPAY | PROVIDERS: Admitting Provider Surgery; Emergency Provider Student in an Organized Health Care Education/Training Program; PCP Internal Medicine; Visit Provider Internal Medicine | DX: D72.829 Elevated white blood cell count, unspecified (principal) | CPT/HCPCS: 99232 ==

== ENCOUNTER → 2024-03-23 17:44 | Outpatient (BNV) | payer MEDICARE, SELFPAY | PROVIDERS: Admitting Provider Surgery; Emergency Provider Student in an Organized Health Care Education/Training Program; PCP Internal Medicine; Visit Provider Student in an Organized Health Care Education/Training Program | DX: R18.8 Other ascites (principal) | CPT/HCPCS: 99222; 99231; 99232; 99499 ==

== ENCOUNTER → 2024-03-23 17:44 | Outpatient (BNV) | payer MEDICARE, SELFPAY | PROVIDERS: Admitting Provider Surgery; Emergency Provider Student in an Organized Health Care Education/Training Program; PCP Internal Medicine; Visit Provider Nurse Practitioner Family | DX: R40.20 Unspecified coma (principal) | CPT/HCPCS: 99291 ==